=== PATIENT | female | born 1940 | race Caucasian/White ===

== ENCOUNTER 2017-10-04 17:30 | Inpatient (IN) | payer MEDICARE, OTHER ==
[2017-10-04 17:31] VITALS: BMI 26.1
[2017-10-04 18:35] LABS: BASO # 0.1 K/uL (0.0-0.2); BASO % 0.8 % (0.0-2.0); EOS # 0.1 K/uL (0.0-0.7); EOS % 0.7 % (0.0-4.0); HEMOGLOBIN 14.4 g/dL (11.0-16.0); LYMPH # 1.7 K/uL (1.0-4.3); LYMPH % 16.7 % (20.0-40.0); MEAN CORPUSCULAR HEMOGLOBIN 28.6 pg (27.0-31.0); MEAN CORPUSCULAR HGB CONC 32.9 g/dL (33.0-37.0); MEAN PLATELET VOLUME 9.6 fL (7.2-11.7); MONO % 9.9 % (0.0-10.0); NEUT # 7.5 K/uL (1.8-7.0); NEUT % 71.9 % (50.0-75.0); RBC 5.02 Mil/uL (3.80-5.20); RED CELL DISTRIBUTION WIDTH 14.5 % (11.5-14.5); WHITE BLOOD COUNT 10.4 K/uL (4.8-10.8)
[2017-10-04 18:37] LABS: MEAN CELL VOLUME 86.9 fL (81.0-99.0)
[2017-10-04 18:44] LABS: CALCIUM 9.8 mg/dl (8.6-10.4); GFR AFRICAN-AMERICAN > 60; GFR NON-AFRICAN AMERICAN 54; INR 1.1; PROTHROMBIN TIME 12.2 SECONDS (9.7-12.2)
[2017-10-04 18:52] LABS: ALB/GLOB RATIO 0.9 (1.0-2.1); ALBUMIN 4.8 g/dL (3.5-5.0); ALT/SGPT 21 U/L (9-52); AST/SGOT 53 U/L (14-36); BLOOD UREA NITROGEN 19 mg/dL (7-17)
--- NOTE | 2017-10-04 18:54 | C.PDOC ---
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 Patient today is c/o sharp like chest pain mainly located in the center of her chest along with some dizziness, patient states she was near syncopal and started noticing some tremors which made her call EMS. Patient received aspirin and nitroglycerin in the field which improved the symptoms greatly. Patient at this time states having no complaints or symptoms. Time Seen by Provider: 10/04/17 17:46 Chief Complaint (Nursing): Chest Pain History Per: Patient, EMS History/Exam Limitations: no limitations Onset/Duration Of Symptoms: Hrs Current Symptoms Are (Timing): Still Present Severity: Mild Quality: Sharp Nitro Therapy Administered: 2, Per EMS, Complete Relief Recent travel outside of the [place]: No Additional History Per: Patient, EMS Past Medical History Reviewed: Historical Data, Nursing Documentation, Vital Signs Vital Signs: Last Vital Signs Temp 98.4 F 10/04/17 19:43 Pulse 86 10/04/17 19:43 Resp 16 10/04/17 19:43 BP 175/74 H 10/04/17 19:43 Pulse Ox 98 10/04/17 19:45 - Medical History PMH: Anxiety, Arthritis (KNEE PAIN), Cardia Arrhythmia, Depression, Diabetes, HTN, Hypercholesterolemia, Hypothyroidism Denies: Chronic Kidney Disease Surgical History: CABG (jan 17 2013 TRIPLE), Coronary Stent, Pacemaker, Tonsillectomy - [facility] Procedures BREAST DX PROCEDURE NEC (04/18/14) DX ULTRASOUND-THORAX NEC (04/18/14) INITIAL INSERT TRANS LEADS INTO [employer] VENTRICLE (12/20/13) INITIAL INSERTION OF DUAL-CHAMBER DEVICE (12/20/13) LOCAL EXCIS BREAST LES (04/18/14) LYMPHATIC STRUCT BIOPSY (05/14/14) LYMPHATIC SYSTEM SCAN (05/14/14) PERCUTAN NEEDLE BIOPSY OF BREAST (02/05/14) X-RAY NEC AND NOS (02/05/14) Family History: States: Unknown Family Hx - Social History Hx Tobacco Use: Yes (quit 6 years ago) Hx Alcohol Use: No Hx Substance Use: No - Immunization History Hx Tetanus Toxoid Vaccination: No Hx Influenza Vaccination: No Hx Pneumococcal Vaccination: No Review Of Systems Constitutional: Negative for: Fever, Chills Cardiovascular: Positive for: Chest Pain. Negative for: Palpitations Respiratory: Negative for: Cough, Shortness of Breath Gastrointestinal: Negative for: Nausea, Vomiting, Abdominal Pain Genitourinary: Negative for: Dysuria, Hematuria Musculoskeletal: Negative for: Back Pain Skin: Negative for: Rash Neurological: Negative for: Weakness, Numbness Physical Exam - Physical Exam Appears: Non-toxic, No Acute Distress Skin: Normal Color, Warm, Dry Head: Atraumatic, Normacephalic Eye(s): bilateral: Normal Inspection Nose: No Discharge, No Epistaxis Oral Mucosa: Moist Neck: Normal ROM, Supple Chest: Symmetrical Cardiovascular: Rhythm Regular, No Murmur Respiratory: Normal Breath Sounds, No Rales, No Rhonchi, No Wheezing Gastrointestinal/Abdominal: Soft, No Tenderness, No Guarding, No Rebound Extremity: Normal ROM, No Pedal Edema, No Calf Tenderness, No Deformity, No Swelling Neurological/Psych: Oriented x3, Normal Speech, Normal Cognition Gait: Steady ED Course And Treatment - Laboratory Results Result Diagrams: 10/04/17 18:30 10/04/17 18:30 ECG: Interpreted By Me, Viewed By Me ECG Rhythm: Sinus Rhythm, L BBB (pattern) Interpretation Of ECG: LBBB pattern, (pt had a pacemaker in place but no pacer spikes can be seen currently in the EKG) Rate From EC O2 Sat by Pulse Oximetry: 98 (On RA) Pulse Ox Interpretation: Normal Medical Decision Making Medical Decision Making: Impression : Chest pain Plan: * EKG * Labs * CXR Spoke with Hospitalist Dr. Balderas and patient will be admitted under his service to telemetry Disposition Discussed With DrJuvencio: Trent Balderas Counseled Patient/Family Regarding: Studies Performed, Diagnosis - Disposition Disposition Time: 19:44 Condition: FAIR Forms: [employer] (Uzbek) - POA Core Measure Indicators: Chest Pain - Clinical Impression Clinical Impression: Chest discomfort - Scribe Statement The provider has reviewed the documentation as recorded by the Scribe Vance Richmond All medical record entries made by the Scribe were at my direction and personally dictated by me. I have reviewed the chart and agree that the record accurately reflects my personal performance of the history, physical exam, medical decision making, and the department course for this patient. I have also personally directed, reviewed, and agree with the discharge instructions and disposition.
[2017-10-04 18:56] LABS: B-TYPE NATRIURETIC PEPTIDE 1580 pg/mL (0-900)
--- NOTE | 2017-10-04 19:45 | CP.PCM.HP ---
<Linda Tejada - Last Filed: 10/04/17 21:51> History of Present Illness - History of Present Illness History of Present Illness: Medicine Note for Hospitalist Service CC: Chest Pain HPI: 77 yo Female with PMHx of HTN, HLD, DM, CAD, CABG, Hx of Breast Cancer (s/p lumpectomy), and Hypothyroidism presents to the ED for chest pain. She reports she started to have chest pain at 3pm today while she was sitting down in her kitchen. The pain was sharp, constant in the middle of her chest. She felt SOB, cold, and dizzy. Her chest pain was relieved when she was given nitro in the ambulance. Upon examining the patient she admitted to headache, epigastric burning pain that radiates to her back, nausea, and vomiting. Denied fever, chills, SOB, d/c, or urinary symptoms. PMHx: HTN, HLD, DM, CAD, CABG, Hx of Breast Cancer (s/p lumpectomy) and Hypothyroidism PSHx: Pacemaker (placed on the right due to Hx Breast Cancer) Meds: As per NOV, reviewed and confirmed All: NKDA SHx: Denied x 3 FHx: Strong Cardiac history, most family member of cardiac complications PMD: Tony Insurance Claim Representative: Dr. Daryl Musa [phone] Present on Admission - Present on Admission Any Indicators Present on Admission: No Past Patient History - Past Medical History & Family History Past Medical History?: Yes - Past Social History Smoking Status: Former Smoker - CARDIAC Hx Cardia Arrhythmia: Yes Hx Hypercholesterolemia: Yes Hx Hypertension: Yes Hx Pacemaker: Yes - PULMONARY Hx Respiratory Disorders: Yes (SOB SOMETIMES) - NEUROLOGICAL Hx Neurological Disorder: Yes - HEENT Hx HEENT Problems: Yes Hx Cataracts: Yes (removed bilateral 2011) - RENAL Hx Chronic Kidney Disease: No - ENDOCRINE/METABOLIC Hx Hypothyroidism: Yes - HEMATOLOGICAL/ONCOLOGICAL Hx Blood Disorders: Yes Hx Cancer: Yes (LEFT BREAST-RADIATION TX. DONE) - INTEGUMENTARY Hx Dermatological Problems: Yes Other/Comment: CANCER LEFT BREAST-LUMPECTOMY DONE - MUSCULOSKELETAL/RHEUMATOLOGICAL Hx Arthritis: Yes (KNEE PAIN) - GASTROINTESTINAL Hx Gastrointestinal Disorders: No - GENITOURINARY/GYNECOLOGICAL Hx Genitourinary Disorders: No - PSYCHIATRIC Hx Anxiety: Yes Hx Depression: Yes Hx Substance Use: No - SURGICAL HISTORY Hx Coronary Artery Bypass Graft: Yes (jan 17 2013 TRIPLE) Hx Coronary Stent: Yes Hx Tonsillectomy: Yes - ANESTHESIA Hx Anesthesia: Yes Hx Anesthesia Reactions: No Hx Malignant Hyperthermia: No Meds Allergies/Adverse Reactions: Allergies Allergy/AdvReac Type Severity Reaction Status Date / Time No Known Allergies Allergy Verified 10/04/17 17:45 Physical Exam - Constitutional Appears: Toxic - Head Exam Head Exam: NORMAL INSPECTION, NORMOCEPHALIC - Eye Exam Eye Exam: EOMI, Normal appearance, PERRL Pupil Exam: NORMAL ACCOMODATION - ENT Exam ENT Exam: Mucous Membranes Moist - Neck Exam Neck exam: Positive for: Normal Inspection - Respiratory Exam Respiratory Exam: Clear to Auscultation Bilateral, NORMAL BREATHING PATTERN. absent: Decreased Breath Sounds, Wheezes - Cardiovascular Exam Cardiovascular Exam: REGULAR RHYTHM, RRR, +S1, +S2 - GI/Abdominal Exam GI & Abdominal Exam: Normal Bowel Sounds, Soft, Tenderness (TTP epigastric region ) - Extremities Exam Extremities exam: Positive for: normal inspection, pedal pulses present. Negative for: pedal edema, tenderness - Back Exam Back exam: NORMAL INSPECTION. absent: CVA tenderness (L), CVA tenderness (R) - Neurological Exam Neurological exam: Alert, CN II-XII Intact, Oriented x3 - Psychiatric Exam Psychiatric exam: Normal Affect, Normal Mood - Skin Skin Exam: Dry, Intact, Normal Color, Warm Results - Vital Signs Recent Vital Signs: Last Vital Signs Temp 98.4 F 10/04/17 19:43 Pulse 86 10/04/17 19:43 Resp 16 10/04/17 19:43 BP 175/74 H 10/04/17 19:43 Pulse Ox 98 10/04/17 19:45 - Labs Result Diagrams: 10/04/17 18:30 10/04/17 18:30 Labs: Laboratory Results - last 24 hr 10/04/17 10/04/17 10/04/17 17:46 18:30 18:30 WBC 10.4 D RBC 5.02 Hgb 14.4 D Hct 43.6 MCV 86.9 D MCH 28.6 MCHC 32.9 L RDW 14.5 Plt Count 307 MPV 9.6 Neut % (Auto) 71.9 Lymph % (Auto) 16.7 L Gilliam % (Auto) 9.9 Eos % (Auto) 0.7 Baso % (Auto) 0.8 Neut # 7.5 H Lymph # 1.7 Gilliam # 1.0 H Eos # 0.1 Baso # 0.1 PT INR APTT Sodium 137 Potassium 5.6 H Chloride 98 Carbon Dioxide 26 Anion Gap 19 BUN 19 H Creatinine 1.0 Est GFR ( Amer) > 60 Est GFR (Non-Af Amer) 54 POC Glucose (mg/dL) 184 H Random Glucose 183 H Calcium 9.8 Total Bilirubin 1.4 H AST 53 H ALT 21 Alkaline Phosphatase 148 H Troponin I 0.0230 NT-Pro-B Natriuret Pep 1580 H Total Protein 10.0 H Albumin 4.8 Globulin 5.2 H Albumin/Globulin Ratio 0.9 L 10/04/17 18:30 WBC RBC Hgb Hct MCV MCH MCHC RDW Plt Count MPV Neut % (Auto) Lymph % (Auto) Gilliam % (Auto) Eos % (Auto) Baso % (Auto) Neut # Lymph # Gilliam # Eos # Baso # PT 12.2 INR 1.1 APTT 29 Sodium Potassium Chloride Carbon Dioxide Anion Gap BUN Creatinine Est GFR ( Amer) Est GFR (Non-Af Amer) POC Glucose (mg/dL) Random Glucose Calcium Total Bilirubin AST ALT Alkaline Phosphatase Troponin I NT-Pro-B Natriuret Pep Total Protein Albumin Globulin Albumin/Globulin Ratio Assessment & Plan - Assessment and Plan (Free Text) Assessment: 77 yo Female with PMHx of HTN, HLD, DM, CAD, CABG, Hx of Breast Cancer (s/p lumpectomy), and Hypothyroidism presents to the ED for chest pain. Plan: Chest Pain r/o ACS Call placed to Primary Insurance Claim Representative- he is being covered by Dr. Childs- consult placed EK, LBBB, f/u EKG x2 JOANNA: 1st negative, f/u JOANNA x2 TSH, T4 - WNL F/U lipid panel CT Chest w/ IV ordered to rule out aortic dissection as patient reported the pain radiated to her back ECHO pending; Last ECHO 2015 LVEF 63% ASA 81mg PO daily CAD s/p CABG (2014) Had an abnormal stress test 09/2016 Hyperkalemia 5.6 on admission Once dose Kayexalate given Elevated T. Bili 1.4 Continue to Monitor Transaminitis Continue to Monitor HTN Resumed home medications: Norvasc 5mg PO daily, Cozaar 100mg PO daily HLD Continue with home medication (lipitor not on formulary): Crestor 5mg PO QHS DM Accuchecks HGA1C: 7.1 (09/2017) Carb Consistent Diet Held home medication: Metformin ISS- mod Hypothyroidism Continue with home medication: Synthroid 50mcg PO daily Hx Breast Cancer Prophylactic Measures GI PPX: Protonix 40mg PO daily DVT PPX: SCDs, Heparin Q12 DW Linda Arora DO, PGY-1 <Trent Balderas - Last Filed: 10/05/17 06:19> Results - Vital Signs Recent Vital Signs: Last Vital Signs Temp 98.0 F 10/05/17 00:30 Pulse 85 10/05/17 04:00 Resp 20 10/05/17 00:30 BP 184/75 H 10/05/17 00:30 Pulse Ox 95 10/05/17 00:30 - Labs Result Diagrams: 10/05/17 05:55 10/04/17 18:30 Labs: Laboratory Results - last 24 hr 10/04/17 10/04/17 10/04/17 17:46 18:30 18:30 WBC 10.4 D RBC 5.02 Hgb 14.4 D Hct 43.6 MCV 86.9 D MCH 28.6 MCHC 32.9 L RDW 14.5 Plt Count 307 MPV 9.6 Neut % (Auto) 71.9 Lymph % (Auto) 16.7 L Gilliam % (Auto) 9.9 Eos % (Auto) 0.7 Baso % (Auto) 0.8 Neut # 7.5 H Lymph # 1.7 Gilliam # 1.0 H Eos # 0.1 Baso # 0.1 PT INR APTT Sodium 137 Potassium 5.6 H Chloride 98 Carbon Dioxide 26 Anion Gap 19 BUN 19 H Creatinine 1.0 Est GFR ( Amer) > 60 Est GFR (Non-Af Amer) 54 POC Glucose (mg/dL) 184 H Random Glucose 183 H Hemoglobin A1c Calcium 9.8 Total Bilirubin 1.4 H AST 53 H ALT 21 Alkaline Phosphatase 148 H Total Creatine Kinase Troponin I 0.0230 NT-Pro-B Natriuret Pep 1580 H Total Protein 10.0 H Albumin 4.8 Globulin 5.2 H Albumin/Globulin Ratio 0.9 L Free T4 TSH 3rd Generation 10/04/17 10/04/17 10/04/17 18:30 20:20 20:20 WBC RBC Hgb Hct MCV MCH MCHC RDW Plt Count MPV Neut % (Auto) Lymph % (Auto) Gilliam % (Auto) Eos % (Auto) Baso % (Auto) Neut # Lymph # Gilliam # Eos # Baso # PT 12.2 INR 1.1 APTT 29 Sodium Potassium Chloride Carbon Dioxide Anion Gap BUN Creatinine Est GFR ( Amer) Est GFR (Non-Af Amer) POC Glucose (mg/dL) Random Glucose Hemoglobin A1c 7.1 H Calcium Total Bilirubin AST ALT Alkaline Phosphatase Total Creatine Kinase Troponin I NT-Pro-B Natriuret Pep Total Protein Albumin Globulin Albumin/Globulin Ratio Free T4 TSH 3rd Generation 2.92 10/04/17 10/04/17 10/05/17 20:28 20:51 05:55 WBC 14.6 H RBC 4.92 Hgb 14.2 Hct 42.2 MCV 85.7 MCH 28.9 MCHC 33.8 RDW 14.2 Plt Count 249 MPV 9.0 Neut % (Auto) 75.7 H Lymph % (Auto) 10.5 L Gilliam % (Auto) 13.2 H Eos % (Auto) 0.0 Baso % (Auto) 0.6 Neut # 11.1 H Lymph # 1.5 Gilliam # 1.9 H Eos # 0.0 Baso # 0.1 PT INR APTT Sodium Potassium Chloride Carbon Dioxide Anion Gap BUN Creatinine Est GFR ( Amer) Est GFR (Non-Af Amer) POC Glucose (mg/dL) 175 H Random Glucose Hemoglobin A1c Calcium Total Bilirubin AST ALT Alkaline Phosphatase Total Creatine Kinase Troponin I NT-Pro-B Natriuret Pep Total Protein Albumin Globulin Albumin/Globulin Ratio Free T4 1.49 TSH 3rd Generation 10/05/17 05:55 WBC RBC Hgb Hct MCV MCH MCHC RDW Plt Count MPV Neut % (Auto) Lymph % (Auto) Gilliam % (Auto) Eos % (Auto) Baso % (Auto) Neut # Lymph # Gilliam # Eos # Baso # PT INR APTT Sodium Potassium Chloride Carbon Dioxide Anion Gap BUN Creatinine Est GFR ( Amer) Est GFR (Non-Af Amer) POC Glucose (mg/dL) Random Glucose Hemoglobin A1c Calcium Total Bilirubin AST ALT Alkaline Phosphatase Total Creatine Kinase 141 H Troponin I NT-Pro-B Natriuret Pep Total Protein Albumin Globulin Albumin/Globulin Ratio Free T4 TSH 3rd Generation Assessment & Plan - Date & Time Date: 10/05/17 (I have seen and examined the patient. I agree with the findings and plan of care as documented by Dr. Tejada. Patient with chest pain and history of prior CABG. ROMIx3 with EKG. Aspirin and Statin. Consult to Cardio. Continue home meds for history of hypertension. Also complaining of some abdominal pain radiating to back. Check CT to rule out dissection. Monitor for acute changes.) Time: 06:17 Attending/Attestation - Attestation I have personally seen and examined this patient.: Yes I have fully participated in the care of the patient.: Yes I have reviewed all pertinent clinical information: Yes
[2017-10-04] MEDS ORDERED: Simethicone 80 mg Chewtab PO STA (20:42)
[2017-10-04] MEDS ORDERED: Iohexol 300 100 ML IJ ONE (21:23)
[2017-10-04] MEDS ORDERED: Sod Polystyrene Sulf 15 gm/60 ml Susp PO ONE (21:41)
[2017-10-04] MEDS: (Novolin R) Insulin Human Regular 100 units/ml vial SC SCH (22:13)
[2017-10-04] MEDS ORDERED: Sod Polystyrene Sulf 15 gm/60 ml Susp ONE (22:22)
--- NOTE | 2017-10-04 23:51 | CT ---
EXAM: CT Chest Without and With Intravenous Contrast CT Abdomen and Pelvis Without and With Intravenous Contrast CLINICAL HISTORY: 77 years old, female; Pain; Abdominal pain; Chest pain; Type not specified; Additional info: Rule out aortic dissection TECHNIQUE: Axial computed tomography images of the chest, abdomen and pelvis without and with intravenous contrast. All CT scans at this facility use one or more dose reduction techniques, viz.: automated exposure control; ma/kV adjustment per patient size (including targeted exams where dose is matched to indication; i.e. head); or iterative reconstruction technique. Coronal and sagittal reformatted images were created and reviewed. CONTRAST: 100 mL of OMNIPAQUE 300 administered intravenously. COMPARISON: No relevant prior studies available. FINDINGS: CHEST: Lungs: Calcified pulmonary granulomas. Subsegmental atelectasis left upper lobe. Pleural space: Unremarkable. No significant effusion. No pneumothorax. Heart: Mild cardiomegaly. No significant pericardial effusion. Mediastinum: Small hiatal hernia. ABDOMEN: Liver: Multiple hepatic cysts. Largest cyst comprises much of the right hepatic lobe it measures 16 CM. Gallbladder and bile ducts: Unremarkable. No calcified stones. No ductal dilation. Pancreas: Unremarkable. No ductal dilation. No mass. Spleen: Unremarkable. No splenomegaly. Adrenals: Unremarkable. No mass. Kidneys and ureters: Unremarkable. No obstructing stones. No hydronephrosis. No solid mass. Stomach and bowel: Unremarkable. No obstruction. Appendix: No findings to suggest acute appendicitis. PELVIS: Bladder: Unremarkable. No stones. No mass. Reproductive: Unremarkable as visualized. CHEST, ABDOMEN and PELVIS: Intraperitoneal space: Unremarkable. No significant fluid collection. No free air. Bones/joints: Median sternotomy wires. No acute fracture. No dislocation. Soft tissues: Unremarkable. Vasculature: No pulmonary embolism. 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 Lymph nodes: Unremarkable. No enlarged lymph nodes. Tubes, lines and devices: Right chest wall pacer/defibrillator. IMPRESSION: 1. No evidence of thoracic aortic aneurysm, dissection, or rupture. 2. No acute pulmonary embolism. 3. Hepatic cysts. 4. Remainder of findings as above.
--- NOTE | 2017-10-05 00:25 | CP.PCM.CON ---
History of Present Illness - History of Present Illness History of Present Illness: Cardiology consult note for Dr. Amadeo Jon DO, PGY - 1 - Pager [phone] Reason For Consult: Chest Pain HPI: 77 yo Female with PMHx of Hypertension, Hyperlipidemia, Diabetes, CAD s /p CABG, Breast Cancer s/p Lumpectomy, and Hypothyroidism presented to the ED last night for 5 hour duration of sharp, constant, non-radiating, sternal chest pain, which began at rest, was associated with shortness of breath and dizziness , and remitted with nitro given by EMS. Patient states that this bout does feel like past episodes of chest pain. Patient has never had an AMI in the past. Last ECHO on file is 04/03, which showed borderline concentric LVH with grade I abnormal relaxation pattern, severe aortic stenosis, mild mitral regurg, and mild to moderate pulmonic regurg. LVEF was 60-65%. Patient had a cardiac cath performed 07/[address] Evangelista, which showed distal main coronary artery 70-80% concentric stenosis mid LAD 70-80% stenosis, RCA 20- 30% non-obstructing stenosis, and large diagonal branch 85% proximal stenosis with LVEF of 60%. Basal inferior wall akinetic. Proximal and distal LAD, Left circumflex, PDA. SUMMERS to LAD (jump graft), and saphenous vein graft to diagonal branch and obtuse marginal artery were all patent. Per admitting physician, patient admitted to headache, epigastric burning pain that radiated to her back, nausea, and vomiting. When I saw patient at bedside , she admitted to this same pain, and states that it is separate from the chest pain. She states that she feels constipated, and that this happens to her often. Past Surgical History: Lumpectomy, CABG 2012 Past Medical History: Hypertension, Hyperlipidemia, Diabetes, CAD s/p CABG s/ p Cath as above, Breast Cancer s/p Lumpectomy, Hypothyroidism Allergies: NKDA Social History: Denies illicits, alcohol, and tobacco use Family History: Strong cardiac history - all women in her family of AMI's Medications: See NOV PMD: Dr. Jimenez Agricultural Economics Teacher: Dr. Daryl Musa [phone] [facility] Pharmacy: [address] [phone] Review of Systems: Constitutional: patient denies fever, chills, generalized weakness ENT: patient denies dysphagia, otalgia, hearing deficit, rhinorrhea Eyes: patient denies sudden loss of vision, diplopia, blurred vision MSK: patient denies muscle stiffness, joint pain, extremity cramping Cardio: See HPI Pulm: patient denies cough, hemoptysis, wheeze Gastrointestinal: See HPI Genitourinary: patient denies burning on urination, urinary frequency, hematuria, urinary urgency Neuro: patient denies paresis, paresthesia, dizziness, headache, numbness , tingling Derm: patient denies skin changes, lesions, nail changes Endo: patient denies intolerance to heat/cold, diaphoresis, night sweats, polydipsia Psych: patient denies anxiety, depression, mood changes Past Patient History - Past Medical History & Family History Past Medical History?: Yes - Past Social History Smoking Status: Former Smoker - CARDIAC Hx Cardia Arrhythmia: Yes Hx Hypercholesterolemia: Yes Hx Hypertension: Yes Hx Pacemaker: Yes - PULMONARY Hx Respiratory Disorders: Yes (SOB SOMETIMES) - NEUROLOGICAL Hx Neurological Disorder: Yes - HEENT Hx HEENT Problems: Yes Hx Cataracts: Yes (removed bilateral 2011) - RENAL Hx Chronic Kidney Disease: No - ENDOCRINE/METABOLIC Hx Hypothyroidism: Yes - HEMATOLOGICAL/ONCOLOGICAL Hx Blood Disorders: Yes Hx Cancer: Yes (LEFT BREAST-RADIATION TX. DONE) - INTEGUMENTARY Hx Dermatological Problems: Yes Other/Comment: CANCER LEFT BREAST-LUMPECTOMY DONE - MUSCULOSKELETAL/RHEUMATOLOGICAL Hx Arthritis: Yes (KNEE PAIN) - GASTROINTESTINAL Hx Gastrointestinal Disorders: No - GENITOURINARY/GYNECOLOGICAL Hx Genitourinary Disorders: No - PSYCHIATRIC Hx Anxiety: Yes Hx Depression: Yes Hx Substance Use: No - SURGICAL HISTORY Hx Coronary Artery Bypass Graft: Yes (jan 17 2013 TRIPLE) Hx Coronary Stent: Yes Hx Tonsillectomy: Yes - ANESTHESIA Hx Anesthesia: Yes Hx Anesthesia Reactions: No Hx Malignant Hyperthermia: No Meds Allergies/Adverse Reactions: Allergies Allergy/AdvReac Type Severity Reaction Status Date / Time No Known Allergies Allergy Verified 10/04/17 17:45 - Medications Medications: Current Medications Amlodipine Besylate (Norvasc) 5 mg PO DAILY [facility] Aspirin (Ecotrin) 81 mg PO DAILY [facility] Heparin Sodium (Porcine) (Heparin) 5,000 units SC Q12 [facility] Last Admin: 10/04/17 22:18 Dose: 5,000 units Insulin Human Regular (Novolin R) 0 unit SC ACHS TIM PRN Reason: Protocol Last Admin: 10/04/17 22:13 Dose: Not Given Levothyroxine Sodium (Synthroid) 50 mcg PO DAILY@0630 TIM Losartan Potassium (Cozaar) 100 mg PO DAILY [facility] Ondansetron HCl (Zofran Inj) 4 mg IVP Q6H PRN PRN Reason: Nausea/Vomiting Pantoprazole Sodium (Protonix Ec Tab) 40 mg PO DAILY TIM Rosuvastatin Calcium (Crestor) 5 mg PO HS TIM Last Admin: 10/04/17 22:18 Dose: 5 mg Zolpidem Tartrate (Ambien) 5 mg PO HS PRN PRN Reason: Insomnia Last Admin: 10/04/17 23:27 Dose: 5 mg Physical Exam - Additional Findings Additional findings: Physical Exam: Vital Signs as below Const'l: awake alert & oriented x 4, no acute distress, pleasant, obese woman Head/Neck: neck supple, no jvd, trachea midline, carotid midline, no cervical/head mass Eyes: pupils equally reactive to light and accommodation, nonicteric sclera, extraocular intact ENT: auditory acuity grossly intact, throat not congested, no nasal deformity Cardio: +scar on chest wall on left and right sides, regular rate, regular rhythm, no murmurs rubs gallops, no carotid bruit, normal s1, s2 Pulm: no accessory muscle use, equal normal breath sounds bilaterally, clear to ausculation bilaterally Abd: +obesity limiting exam, +slightly diminished bowel sounds in lower quadrants; soft non tender non-distended, no palpable masses Derm: no rashes, no ulcers, no lesions Extr: no edema, no cyanosis, no calf tenderness, no lesions, no varicosities Neuro: cranial nerves II-XII grossly intact, upper extremity and lower extremity 5/5 muscle strength bilaterally, no loss of sensation in upper extremities, lower extremities bilaterally and core Results - Vital Signs Recent Vital Signs: Last Vital Signs Temp 98 F 10/04/17 23:08 Pulse 82 10/04/17 23:08 Resp 16 10/04/17 23:08 BP 158/59 H 10/04/17 23:08 Pulse Ox 100 10/04/17 23:08 - Labs Result Diagrams: 10/05/17 05:55 10/05/17 05:55 Labs: Laboratory Results - last 24 hr 10/04/17 10/04/17 10/04/17 17:46 18:30 18:30 WBC 10.4 D RBC 5.02 Hgb 14.4 D Hct 43.6 MCV 86.9 D MCH 28.6 MCHC 32.9 L RDW 14.5 Plt Count 307 MPV 9.6 Neut % (Auto) 71.9 Lymph % (Auto) 16.7 L Kent % (Auto) 9.9 Eos % (Auto) 0.7 Baso % (Auto) 0.8 Neut # 7.5 H Lymph # 1.7 Kent # 1.0 H Eos # 0.1 Baso # 0.1 PT INR APTT Sodium 137 Potassium 5.6 H Chloride 98 Carbon Dioxide 26 Anion Gap 19 BUN 19 H Creatinine 1.0 Est GFR ( Amer) > 60 Est GFR (Non-Af Amer) 54 POC Glucose (mg/dL) 184 H Random Glucose 183 H Hemoglobin A1c Calcium 9.8 Total Bilirubin 1.4 H AST 53 H ALT 21 Alkaline Phosphatase 148 H Troponin I 0.0230 NT-Pro-B Natriuret Pep 1580 H Total Protein 10.0 H Albumin 4.8 Globulin 5.2 H Albumin/Globulin Ratio 0.9 L Free T4 TSH 3rd Generation 10/04/17 10/04/17 10/04/17 18:30 20:20 20:20 WBC RBC Hgb Hct MCV MCH MCHC RDW Plt Count MPV Neut % (Auto) Lymph % (Auto) Kent % (Auto) Eos % (Auto) Baso % (Auto) Neut # Lymph # Kent # Eos # Baso # PT 12.2 INR 1.1 APTT 29 Sodium Potassium Chloride Carbon Dioxide Anion Gap BUN Creatinine Est GFR ( Amer) Est GFR (Non-Af Amer) POC Glucose (mg/dL) Random Glucose Hemoglobin A1c 7.1 H Calcium Total Bilirubin AST ALT Alkaline Phosphatase Troponin I NT-Pro-B Natriuret Pep Total Protein Albumin Globulin Albumin/Globulin Ratio Free T4 TSH 3rd Generation 2.92 10/04/17 10/04/17 20:28 20:51 WBC RBC Hgb Hct MCV MCH MCHC RDW Plt Count MPV Neut % (Auto) Lymph % (Auto) Kent % (Auto) Eos % (Auto) Baso % (Auto) Neut # Lymph # Kent # Eos # Baso # PT INR APTT Sodium Potassium Chloride Carbon Dioxide Anion Gap BUN Creatinine Est GFR ( Amer) Est GFR (Non-Af Amer) POC Glucose (mg/dL) 175 H Random Glucose Hemoglobin A1c Calcium Total Bilirubin AST ALT Alkaline Phosphatase Troponin I NT-Pro-B Natriuret Pep Total Protein Albumin Globulin Albumin/Globulin Ratio Free T4 1.49 TSH 3rd Generation Assessment & Plan - Assessment and Plan (Free Text) Assessment: Assessment and Plan: 77 year old female with extensive cardiac history presents with 4 hour duration of chest pain. First troponin at .0230. EKG shows new LBBB with NSR at 90 bpm Holter in 2017 showed NSR with max HR 121, SVT at HR of 146 and rare VPC, isolated APC. Cardiac Cath in 2014 showed distal main coronary artery 70-80% concentric stenosis mid LAD 70-80% stenosis, RCA 20-30% non-obstructing stenosis , and large diagonal branch 85% proximal stenosis. with LVEF of 60%. Basal inferior wall akinetic. Previous ECHO showed borderline concentric LVH with grade I abnormal relaxation pattern, severe aortic stenosis, mild mitral regurg , and mild to moderate pulmonic regurg. LVEF was 60-65%. History of pacemaker placement per chart review. Chest Pain r/o ACS - EK, and LBBB not found on previous EKG's in system - Troponin X 1 at .0230, X2 at .0220; baseline is <.0120; CK-MB 1.87-1.85 - BNP elevated at 1580, past BNP's 799-955, with one at 1930 in 2012. - TSH, T4, Lipids - wnl - Mg/Phos:1.3/3.4 - CT Chest with IV: No aneurysm, no dissection, no PE - Follow up Troponins, EKGs - ECHO ordered, Nitro given, ASA 81 daily, Cozaar daily, Norvasc daily, Crestor daily New Left Bundle Branch Block - Patient already has a pacemaker placed (LBBB could be 2/2 to pacing) - Serial JOANNA panel, Serial EKGs, as above - Patient should undergo a repeat catheterization *NPO AFTER MIDNIGHT CAD s/p CABG (2012) - Crestor, Cozaar, ASA daily HTN - Norvasc 5mg PO daily, Cozaar 100mg PO daily HLD - Crestor 5mg PO QHS (patient's home medication is lipitor) DM - HGA1C: 7.1 (09/2017), Held home medication: Metformin - Carb Consistent Diet, Accuchecks, RISS - Mod Hyperkalemia - Per primary team Elevated T. Bili - Per primary team Transaminitis - Per primary team Hypothyroidism - Per primary team Hx Breast Cancer - Per primary team Prophylactic Measures - GI PPX: Protonix 40mg PO daily - DVT PPX: SCDs, Heparin Q12 Dispo: Patient needs catheterization, is scheduled for 10 AM tomorrow. NPO after midnight
[2017-10-05] MEDS: Levothyroxine 50 MCG TAB PO SCH (05:50)
[2017-10-05 05:59] LABS: BASO # 0.1 K/uL (0.0-0.2); BASO % 0.6 % (0.0-2.0); HEMOGLOBIN 14.2 g/dL (11.0-16.0); LYMPH # 1.5 K/uL (1.0-4.3); LYMPH % 10.5 % (20.0-40.0); MEAN CELL VOLUME 85.7 fL (81.0-99.0); MEAN CORPUSCULAR HEMOGLOBIN 28.9 pg (27.0-31.0); MEAN CORPUSCULAR HGB CONC 33.8 g/dL (33.0-37.0); MONO # 1.9 K/uL (0.0-0.8); MONO % 13.2 % (0.0-10.0); NEUT # 11.1 K/uL (1.8-7.0); NEUT % 75.7 % (50.0-75.0); RBC 4.92 Mil/uL (3.80-5.20); RED CELL DISTRIBUTION WIDTH 14.2 % (11.5-14.5); WHITE BLOOD COUNT 14.6 K/uL (4.8-10.8)
[2017-10-05 06:22] LABS: CK-MB 1.87 ng/mL (0.0-3.38); LDL CHOLESTEROL 91 mg/dL (0-129); TROPONIN I 0.022 ng/mL (0.00-0.120)
[2017-10-05 06:25] LABS: ALB/GLOB RATIO 1.1 (1.0-2.1); ALBUMIN 4.2 g/dL (3.5-5.0); ALT/SGPT 29 U/L (9-52); AST/SGOT 29 U/L (14-36); BLOOD UREA NITROGEN 18 mg/dL (7-17); CALCIUM 9.3 mg/dl (8.6-10.4); GFR AFRICAN-AMERICAN > 60; GFR NON-AFRICAN AMERICAN > 60; HDL CHOLESTEROL 41 mg/dL (30-70); MAGNESIUM 1.3 mg/dL (1.6-2.3)
[2017-10-05] MEDS: Magnesium Sulfate 1 gm in D5W 1 GM/100 ML BAG IVPB SCH ×2 (06:49→08:05)
--- NOTE | 2017-10-05 07:52 | CP.PCM.PN ---
<Linda Rutledge MarkJuvencio - Last Filed: 10/05/17 18:35> Subjective - Date & Time of Evaluation Date of Evaluation: 10/05/17 Time of Evaluation: 07:00 - Subjective Subjective: Medicine Progress Note: Patient was seen and examined at bedside in the AM. Patient states she does not have chest pain any more. Patient states she has abdominal pain that is currently about a 4/10. She states it has improved after she had a bowel movement this morning. Patient at that time denies difficulty breathing, chest pain, nausea, vomiting, or fever. Patient later seen in the afternoon after her return of ECHO as she stated she had extreme abdominal pain. Patient stated she would not have any more blood drawn for more tests. Patient denied any more tests and denied IV fluids. Objective - Vital Signs/Intake and Output Vital Signs (last 24 hours): Temp Pulse Resp BP Pulse Ox 98.0 F 85 20 184/75 H 95 10/05/17 00:30 10/05/17 04:00 10/05/17 00:30 10/05/17 00:30 10/05/17 00:30 Intake and Output: 10/05/17 10/05/17 06:59 18:59 Intake Total 250 Balance 250 - Medications Medications: Current Medications Amlodipine Besylate (Norvasc) 5 mg PO DAILY [facility] Aspirin (Ecotrin) 81 mg PO DAILY [facility] Heparin Sodium (Porcine) (Heparin) 5,000 units SC Q12 [facility] Last Admin: 10/04/17 22:18 Dose: 5,000 units Insulin Human Regular (Novolin R) 0 unit SC ACHS [facility] PRN Reason: Protocol Last Admin: 10/04/17 22:13 Dose: Not Given Levothyroxine Sodium (Synthroid) 50 mcg PO DAILY@0630 [facility] Last Admin: 10/05/17 05:50 Dose: 50 mcg Losartan Potassium (Cozaar) 100 mg PO DAILY [facility] Ondansetron HCl (Zofran Inj) 4 mg IVP Q6H PRN PRN Reason: Nausea/Vomiting Pantoprazole Sodium (Protonix Ec Tab) 40 mg PO DAILY [facility] Rosuvastatin Calcium (Crestor) 5 mg PO HS [facility] Last Admin: 10/04/17 22:18 Dose: 5 mg Zolpidem Tartrate (Ambien) 5 mg PO HS PRN PRN Reason: Insomnia Last Admin: 10/04/17 23:27 Dose: 5 mg - Labs Labs: 10/05/17 05:55 10/05/17 05:55 PT 12.2 SECONDS (9.7-12.2) 10/04/17 18:30 INR 1.1 10/04/17 18:30 APTT 29 SECONDS (21-34) 10/04/17 18:30 - Constitutional Appears: No Acute Distress - Head Exam Head Exam: ATRAUMATIC, NORMAL INSPECTION - Eye Exam Eye Exam: EOMI, Normal appearance - ENT Exam ENT Exam: Mucous Membranes Moist - Respiratory Exam Respiratory Exam: Clear to Ausculation Bilateral, NORMAL BREATHING PATTERN - Cardiovascular Exam Cardiovascular Exam: REGULAR RHYTHM, +S1, +S2 - GI/Abdominal Exam GI & Abdominal Exam: Soft, Tenderness (epigastric tenderness ), Normal Bowel Sounds. absent: Firm, Rigid - Extremities Exam Extremities Exam: Normal Inspection - Neurological Exam Neurological Exam: Alert, Awake, Oriented x3 - Psychiatric Exam Psychiatric exam: Anxious - Skin Skin Exam: Normal Color, Warm Assessment and Plan - Assessment and Plan (Free Text) Assessment: 7 yo Female with PMHx of HTN, HLD, DM, CAD, CABG, Hx of Breast Cancer ( s/p lumpectomy), and Hypothyroidism presents to the ED for chest pain. This afternoon patient was non-compliant with care and medical recommendations. Patient was explained why the blood work and abdominal CT with IV contrast warranted to be done due to her abdominal but patient continued to refuse. Patient was given pain medication and anti-nausea medication. Patient was again seen and she threatened to leave the hospital and called her PMD Dr. Jimenez. I spoke with Dr. Jimenez and explained her hospital course and he stated he agreed. Patient's son later came to bedside. I spoke with patient's son with patient's permission and explained her care and the plan for catheterization tomorrow. Patient continued to be agitated. 1.) Chest Pain secondary to LBBB - Cardiology Consult: Dr. Childs --> help appreciated * Per resident note patient is scheduled for cardiac catheterization for at 10am * Patient NPO after midnight - EKGx3: LBBB - JOANNA x3 negative - Lipid panel: Cholesterol 159; LDL 91; HDL 41; Triglycerides 94 - TSH 2.92; Free T4 1.49 - Imaging * CT Chest w/ IV: 1. No evidence of thoracic aortic aneurysm, dissection, or rupture. 2. No acute pulmonary embolism. 3. Hepatic cysts * Chest X-ray: No interval acute cardiopulmonary disease appreciated * f/u ECHO * Last ECHO 2016 LVEF 63% - Medications * ASA 81mg PO daily 2.) CAD s/p CABG (2014) - Had an abnormal stress test 09/2016 3.) Hyperkalemia - resolved 5.6 on admission Once dose Kayexalate given 4.) Abdominal Pain - Abdominal CT with IV contrast - patient refused studies at this time - Amylase 87, lipase 217 - Lactate - patient refused labs - Morphine 1mg q6h PRN for pain - Zofran PRN - Colace 100mg PO BID PRN 5.) Elevated T. Bili - 1.4 -Continue to Monitor 6.) Transaminitis - Continue to Monitor 7.) History of HTN - Resumed home medications: Norvasc 5mg PO daily, Cozaar 100mg PO daily 8.) History of HLD - Continue with home medication (lipitor not on formulary): Crestor 5mg PO QHS 9.) History of DM - Accuchecks - HGA1C: 7.1 (09/2017) - Carb Consistent Diet - Held home medication: Metformin - ISS- moderate 10.) History of Hypothyroidism - TSH 2.92; Free T4 1.49 - Continue with home medication: Synthroid 50mcg PO daily 11.) History Breast Cancer 12.) Prophylactic Measures - GI PPX: Protonix 40mg PO daily - DVT PPX: SCDs, Heparin Q12 - Palliative Care Consult --> help appreciated Case discussed with Dr. Genny Rutlegde PGY-1 <Dianne Royal V - Last Filed: 10/13/17 13:41> Objective - Vital Signs/Intake and Output Vital Signs (last 24 hours): Temp Pulse Resp BP Pulse Ox 98.6 F 106 H 15 104/57 L 96 10/13/17 08:00 10/13/17 11:01 10/13/17 11:01 10/13/17 11:01 10/13/17 10:00 Intake and Output: 10/13/17 10/13/17 06:59 18:59 Intake Total 1159.9 720.0 Output Total 1200 800 Balance -40.1 -80.0 - Medications Medications: Current Medications Acetaminophen (Tylenol 325mg Tab) 650 mg PO Q6 PRN PRN Reason: Fever >100.4 F Amlodipine Besylate (Norvasc) 10 mg PO DAILY [facility] Last Admin: 10/13/17 09:43 Dose: 10 mg Aspirin (Aspirin Chewable) 81 mg PO DAILY [facility] Last Admin: 10/13/17 09:43 Dose: 81 mg Diltiazem HCl (Cardizem) 30 mg PO Q6 TIM Furosemide (Lasix) 40 mg IVP Q12 [facility] Last Admin: 10/13/17 09:44 Dose: 40 mg Metronidazole (Flagyl) 500 mg in 100 mls @ 100 mls/hr IVPB Q8 [facility] Last Admin: 10/13/17 13:02 Dose: 100 mls/hr Meropenem 1 gm/ Sodium (Chloride) 100 mls @ 100 mls/hr IVPB Q8H [facility] Last Admin: 10/13/17 13:01 Dose: 100 mls/hr Diltiazem HCl 125 mg/ Dextrose 125 mls @ 5 mls/hr IV .Q24H TIM; 5 MG/HR PRN Reason: Protocol Last Admin: 10/13/17 09:48 Dose: 10 mg/hr, 10 mls/hr Potassium Chloride 15 meq/Potassium Phosphate 15 mmole/Magnesium Sulfate 10 meq/ Calcium Gluconate 4.5 meq/Insulin Human Regular 10 unit/Heparin Sodium (Porcine ) 1, 000 units/ Chromium/Copper/Manganese/Zinc 1 ml/Multivitamins/Vitamin C 10 ml/Amino Acids 1,036.7404 mls @ 42 mls/hr IV .Q24H ONE Stop: 10/13/17 17:59 Last Admin: 10/12/17 17:06 Dose: 42 mls/hr Potassium Phosphate 15 mmole/ (Dextrose) 255 mls @ 50 mls/hr IV .Q5H6M [facility] Stop: 10/13/17 16:29 Last Admin: 10/13/17 12:05 Dose: 50 mls/hr Insulin Human Regular (Novolin R) 0 unit SC Q6H TIM PRN Reason: Protocol Last Admin: 10/13/17 12:06 Dose: 2 unit Levothyroxine Sodium (Synthroid) 50 mcg PO DAILY@0630 [facility] Last Admin: 10/13/17 05:55 Dose: 50 mcg Losartan Potassium (Cozaar) 100 mg PO DAILY [facility] Last Admin: 10/13/17 09:43 Dose: 100 mg Metoprolol Tartrate (Lopressor) 5 mg IVP Q6H [facility] Last Admin: 10/13/17 12:10 Dose: 5 mg Midazolam HCl (Versed Inj) 2 mg IVP Q4H PRN PRN Reason: Agitation Last Admin: 10/11/17 07:17 Dose: 2 mg Ondansetron HCl (Zofran Inj) 4 mg IVP Q6H PRN PRN Reason: Nausea/Vomiting Last Admin: 10/10/17 21:10 Dose: 4 mg Pantoprazole Sodium (Protonix Inj) 40 mg IVP DAILY [facility] Last Admin: 10/13/17 09:44 Dose: 40 mg Polyethylene Glycol (Miralax) 17 gm PO BID PRN PRN Reason: Constipation Last Admin: 10/07/17 10:14 Dose: 17 gm Potassium Chloride (Potassium Chloride Oral Soln) 40 meq PO Q6H TIM Stop: 10/13/17 22:46 Last Admin: 10/13/17 10:47 Dose: 40 meq Rosuvastatin Calcium (Crestor) 5 mg NG HS [facility] Last Admin: 10/12/17 21:21 Dose: 5 mg Saccharomyces Boulardii (Florastor) 250 mg NG BID [facility] Last Admin: 10/13/17 09:44 Dose: 250 mg Vitamin A (Vitamin A & D Oint Ud Foilpak) 0.5 ea TOP Q4 [facility] Last Admin: 10/13/17 12:10 Dose: 0.5 ea - Labs Labs: 10/13/17 06:29 10/13/17 06:28 PT 15.4 SECONDS (9.7-12.2) H 10/13/17 06:29 INR 1.4 10/13/17 06:29 APTT 71 SECONDS (21-34) H 10/13/17 06:29 Attending/Attestation - Attestation I have personally seen and examined this patient.: Yes I have fully participated in the care of the patient.: Yes I have reviewed all pertinent clinical information, including history, physical exam and plan: Yes Notes (Text): This is late computer entry for 10/05/17. Patient seen, examined and case discussed with day-time resident. Patient seen this morning during morning rounds no family present. Patient describes in great details in regards to her maternal line of family in regards to sudden cardiac , all in great detail. Will ask palliative care for consult in regards to goals of care for the patient. Patient reports in regards to her breast cancer hx she has had lumpectomy but does not described being on any chemotherapeutic and reports she does go for her mammograms every 2 years and self-describes nothing abnormal found. Patient reports she follow with her bolt labeler, Dr. Loja has outpatient. Patient was seen earlier by the resident working with Dr. Childs, bolt labeler. Patient is going for cardiac catherization tomorrow at 10am. Patient has new EKG change on this admission compared to her old one in the chart, LBBB. Patient reports she has not have a bowel movements in three days. Will given medication help her have a bowel movement. During the course of the afternoon, patient has been re-evaluated by the resident, and refusing blood working and CT Abdomen IV given her abdominal pain. Patient also given pain medication and anti-nausea medication. Patient was again seen and she threatened to leave the hospital and called her PMD Dr. Jimenez. Resident spoke with Dr. Jimenez and explained her hospital course and he stated he agreed. I also spoke with Dr. Jimenez as well given patient has been refusing things throughout the day. I came and evaluated the patient in the evening with her nurse Delia. Patient is upset with the echocardiogram tech. She is asking why she had to press so hard while taking a picture; patient is using strong language and cursing. I explained to her the echocardiogram tech has to be able to get the most adequate picture of her heart which is which she needs to press hard. Patient will allow for lactate acid draw and I have ordered her Morphine 4mg IV X1 for her abdominal pain. Assessment/Plan 1.) Chest Pain secondary to LBBB * Cardiology Consult: Dr. Childs --> help appreciated * Per resident note patient is scheduled for cardiac catheterization for at 10am * Patient NPO after midnight * EKGx3: LBBB, which is change from prior EKG * JOANNA x3 negative * Had an abnormal stress test 09/2016 * Lipid panel: Cholesterol 159; LDL 91; HDL 41; Triglycerides 94 * TSH 2.92; Free T4 1.49 * Imaging * CT Dissection Protocol w/ IV: 1. No evidence of thoracic aortic aneurysm, dissection, or rupture. 2. No acute pulmonary embolism. 3. Hepatic cysts * Chest X-ray: No interval acute cardiopulmonary disease appreciated * f/u ECHO official report * Last ECHO 2016 LVEF 63% * Medications * ASA 81mg PO daily * Norvasc 5mg PO daily * Cozaar 100mg PO daily * Crestor 5mg POqHS (Lipitor not available on hospital formulary) 2.) Hyperkalemia - resolved 5.6 on admission Once dose Kayexalate given 3.) Abdominal Pain * CT dissection protocol-->findings available in the EMR * Abdominal CT with IV contrast - patient refused studies at this time * Amylase 87, lipase 217 * Lactate acid - patient refused labs during the day; in the evening with me, patient will allow for the lactate acid * Morphine 1mg q6h PRN for pain * Zofran PRN * Colace 100mg PO BID PRN 4.) Transaminitis * Continue to Monitor 5.) History of HTN * Resumed home medications: Norvasc 5mg PO daily, Cozaar 100mg PO daily 6.) History of HLD * Continue with home medication (lipitor not on formulary): Crestor 5mg PO QHS 7.) History of DM * Accuchecks AC and HS * HGA1C: 7.1 (09/2017) * Carb Consistent Diet * Held home medication: Metformin * ISS- moderate * Cozaar 100mg PO daily * Crestor 5mg POqHS (Lipitor not available on hospital formulary) 8.) History of Hypothyroidism * TSH 2.92; Free T4 1.49 * Continue with home medication: Synthroid 50mcg PO daily 9.) History Breast Cancer 10.) Prophylactic Measures * GI PPX: Protonix 40mg PO daily * DVT PPX: SCDs, Heparin Q12 * Palliative Care Consult --> help appreciated for code status
[2017-10-05] MEDS: (Novolin R) Insulin Human Regular 100 units/ml vial SC SCH ×4 (08:04→21:48)
--- NOTE | 2017-10-05 08:05 | RAD ---
PROCEDURE: CHEST RADIOGRAPH, 1 VIEW HISTORY: chest pain COMPARISON: Chest radiograph 10/04/[address] 02/07/2014. FINDINGS: LUNGS: No acute infiltrate is identified bilaterally. A small calcified granuloma is again seen at the mid right chest most conspicuously seen in prior chest CT 02/07/2014. PLEURA: No pneumothorax or pleural fluid seen. CARDIOVASCULAR: Post CABG changes again appreciated with cardiac size stable. No pulmonary vascular derangement identified. Permanent cardiac pacemaker again noted. OSSEOUS STRUCTURES: No significant abnormalities. VISUALIZED UPPER ABDOMEN: Normal. OTHER FINDINGS: None. IMPRESSION: No interval acute cardiopulmonary disease appreciated.
[2017-10-05] MEDS ORDERED: Magnesium Sulfate 1 gm in D5W 1 GM/100 ML BAG IVPB ONE (10:00)
[2017-10-05] MEDS ORDERED: Pantoprazole 40 mg EC Tab PO SCH (10:00)
[2017-10-05 12:23] LABS: TROPONIN I 0.026 ng/mL (0.00-0.120)
[2017-10-05 12:50] LABS: CK-MB 1.85 ng/mL (0.0-3.38)
[2017-10-05] MEDS ORDERED: Sodium Chloride 0.9% 1,000 ML IV SCH ×2 (13:15→19:00)
[2017-10-05 16:21] LABS: AMYLASE 87 U/L (30-110); LIPASE 217 U/L (23-300)
[2017-10-05] MEDS ORDERED: Morphine 4 MG/ML VIAL IVP STA (18:46)
[2017-10-06] MEDS: Levothyroxine 50 MCG TAB PO SCH (05:45)
[2017-10-06 08:50] LABS: MEAN CELL VOLUME 87.4 fL (81.0-99.0); MEAN CORPUSCULAR HEMOGLOBIN 29.2 pg (27.0-31.0); MEAN CORPUSCULAR HGB CONC 33.5 g/dL (33.0-37.0); MEAN PLATELET VOLUME 9.8 fL (7.2-11.7); PLATELET COUNT 250 K/uL (130-400); RBC 5.12 Mil/uL (3.80-5.20); RED CELL DISTRIBUTION WIDTH 14.8 % (11.5-14.5); WHITE BLOOD COUNT 10.8 K/uL (4.8-10.8)
[2017-10-06] MEDS: (Novolin R) Insulin Human Regular 100 units/ml vial SC SCH ×4 (09:08→21:45)
[2017-10-06 09:14] LABS: ALBUMIN 3.8 g/dL (3.5-5.0); ALT/SGPT 25 U/L (9-52); AST/SGOT 30 U/L (14-36); BLOOD UREA NITROGEN 22 mg/dL (7-17); CALCIUM 9.2 mg/dl (8.6-10.4); GFR AFRICAN-AMERICAN > 60; GFR NON-AFRICAN AMERICAN > 60; MAGNESIUM 1.6 mg/dL (1.6-2.3)
--- NOTE | 2017-10-06 09:24 | CP.PCM.PN ---
Subjective - Date & Time of Evaluation Date of Evaluation: 10/06/17 Time of Evaluation: 09:15 - Subjective Subjective: Cardiology progress note for Dr. Amadeo Jon, DO PGY - 1 - Please see nurse/physician communication note for contact information Patient seen and examined at bedside. Patient is a little anxious about her procedure today, I explained the risks and benefits, obtained consent, and reassured her. I also spoke to her son, Mr. Kim, regarding the procedure. Patient denies any chest pain, shortness of breath, and leg swelling. Patient further denies nausea, vomiting, diarrhea, fevers, and chills. Objective - Vital Signs/Intake and Output Vital Signs (last 24 hours): Temp Pulse Resp BP Pulse Ox 98.9 F 113 H 20 146/76 97 10/06/17 07:26 10/06/17 07:26 10/06/17 07:26 10/06/17 07:26 10/06/17 07:26 Intake and Output: 10/06/17 10/06/17 06:59 18:59 Intake Total 650 Output Total 0 Balance 650 - Medications Medications: Current Medications Amlodipine Besylate (Norvasc) 10 mg PO DAILY [facility] Last Admin: 10/06/17 09:06 Dose: 10 mg Aspirin (Ecotrin) 81 mg PO DAILY [facility] Last Admin: 10/06/17 09:06 Dose: 81 mg Docusate Sodium (Colace) 100 mg PO BID PRN PRN Reason: Constipation Famotidine (Pepcid) 20 mg PO DAILY [facility] Last Admin: 10/06/17 09:06 Dose: 20 mg Heparin Sodium (Porcine) (Heparin) 5,000 units SC Q12 [facility] Last Admin: 10/05/17 21:45 Dose: 5,000 units Insulin Human Regular (Novolin R) 0 unit SC ACHS [facility] PRN Reason: Protocol Last Admin: 10/06/17 09:08 Dose: Not Given Levothyroxine Sodium (Synthroid) 50 mcg PO DAILY@0630 [facility] Last Admin: 10/06/17 05:45 Dose: Not Given Losartan Potassium (Cozaar) 100 mg PO DAILY [facility] Last Admin: 10/06/17 09:07 Dose: 100 mg Morphine Sulfate (Morphine) 1 mg IV Q4H PRN PRN Reason: Pain, moderate (4-7) Last Admin: 10/05/17 18:09 Dose: 1 mg Nebivolol (Bystolic) 10 mg PO DAILY TIM Last Admin: 10/06/17 09:08 Dose: 10 mg Ondansetron HCl (Zofran Inj) 4 mg IVP Q6H PRN PRN Reason: Nausea/Vomiting Last Admin: 10/05/17 10:31 Dose: 4 mg Rosuvastatin Calcium (Crestor) 5 mg PO HS TIM Last Admin: 10/05/17 21:45 Dose: 5 mg Zolpidem Tartrate (Ambien) 5 mg PO HS PRN PRN Reason: Insomnia Last Admin: 10/04/17 23:27 Dose: 5 mg - Labs Labs: 10/06/17 08:38 10/06/17 08:38 PT 12.2 SECONDS (9.7-12.2) 10/04/17 18:30 INR 1.1 10/04/17 18:30 APTT 29 SECONDS (21-34) 10/04/17 18:30 - ENT Exam ENT Exam: TM's Normal Bilaterally - Additional Findings Additional findings: Physical Exam: Vital Signs as below Const'l: awake alert & oriented x 4, no acute distress, pleasant, obese woman Head/Neck: neck supple, no jvd, trachea midline, carotid midline, no cervical/head mass Eyes: pupils equally reactive to light and accommodation, nonicteric sclera, extraocular intact ENT: auditory acuity grossly intact, throat not congested, no nasal deformity Cardio: +scar on chest wall on left and right sides, regular rate, regular rhythm, no murmurs rubs gallops, no carotid bruit, normal s1, s2 Pulm: no accessory muscle use, equal normal breath sounds bilaterally, clear to ausculation bilaterally Abd: +obesity limiting exam, +slightly diminished bowel sounds in lower quadrants; soft non tender non-distended, no palpable masses Derm: no rashes, no ulcers, no lesions Extr: no edema, no cyanosis, no calf tenderness, no lesions, no varicosities Neuro: cranial nerves II-XII grossly intact, upper extremity and lower extremity 5/5 muscle strength bilaterally, no loss of sensation in upper extremities, lower extremities bilaterally and core Assessment and Plan - Assessment and Plan (Free Text) Assessment: Assessment and Plan: 77 year old female with extensive cardiac history including CABG (2012), Cath with results as below (2014), and Abnormal stress test (2017) presents with 4 hour duration of chest pain. Troponins at .0230-->.0220-->.0260. EKG shows new LBBB with NSR at 90 bpm Holter in 2017 showed NSR with max HR 121, SVT at HR of 146 and rare VPC, isolated APC. Cardiac Cath in 2015 showed distal main coronary artery 70-80% concentric stenosis mid LAD 70-80% stenosis, RCA 20-30% non-obstructing stenosis , and large diagonal branch 85% proximal stenosis. with LVEF of 60%. Basal inferior wall akinetic. Previous ECHO showed borderline concentric LVH with grade I abnormal relaxation pattern, severe aortic stenosis, mild mitral regurg , and mild to moderate pulmonic regurg. LVEF was 60-65%. History of pacemaker placement per chart review. Chest Pain r/o ACS - EK, and LBBB not found on previous EKG's in system - Troponin X 1 at .0230, X2 at .0220; baseline is <.0120; CK-MB 1.87-1.85 - BNP elevated at 1580, past BNP's 799-955, with one at 1930 in 2012. - TSH, T4, Lipids - wnl - Mg/Phos:1.3/3.4 - CT Chest with IV: No aneurysm, no dissection, no PE - Follow up Troponins, EKGs - ECHO ordered, Nitro given, ASA 81 daily, Cozaar daily, Norvasc daily, Crestor daily New Left Bundle Branch Block - Patient already has a pacemaker placed (LBBB could be 2/2 to pacing) - Serial JOANNA panel, Serial EKGs, as above - Patient cardiac cath today, Results are: Briefly, LAD to [place] is patent, but other graft is gone. There actually is no jump graft RCA is now 50% stenosed, moreso than last cath Please see operative note for further details CAD s/p CABG (2012) - Crestor, Cozaar, ASA daily HTN - Norvasc 5mg PO daily, Cozaar 100mg PO daily HLD - Crestor 5mg PO QHS (patient's home medication is lipitor) DM - HGA1C: 7.1 (09/2017), Held home medication: Metformin - Carb Consistent Diet, Accuchecks, RISS - Mod Hyperkalemia - Per primary team Elevated T. Bili - Per primary team Transaminitis - Per primary team Hypothyroidism - Per primary team Hx Breast Cancer - Per primary team Prophylactic Measures - GI PPX: Protonix 40mg PO daily - DVT PPX: SCDs, Heparin Q12
[2017-10-06] MEDS ORDERED: Midazolam 2 MG/2 ML VIAL ONE (09:53)
[2017-10-06] MEDS ORDERED: Nitroglycerin 50mg in D5W 0 MG/0 ML BOTTLE IV ONE (10:07)
--- NOTE | 2017-10-06 10:39 | CARD ---
APPROVED REPORT EKG Measurement Heart [id number] <Conclusion> Normal sinus rhythm Left bundle branch block Abnormal ECG
[2017-10-06 11:05] LABS: LYMPH # 1.3 K/uL (1.0-4.3); MONO # 1.5 K/uL (0.0-0.8)
[2017-10-06 11:15] LABS: BANDS 13 % (0-2); LYMPHOCYTE 14 % (20-40); MONOCYTE 18 % (0-10); NEUTROPHIL 55 % (50-75); TOTAL CELLS COUNTED 100
[2017-10-06 11:16] LABS: PLATELET ESTIMATE NORMAL (NORMAL)
--- NOTE | 2017-10-06 11:44 | CP.PCM.CON ---
<Maral Modi - Last Filed: 10/06/17 14:48> History of Present Illness - History of Present Illness History of Present Illness: GI consult note for Dr Kee service Reason for consult: Hepatic cysts. Patient is a 77 y/o with PMHx htn, hld, IDDM2, CAD s/p CABG, breast cancer s/p lumpectomy and radiation, hypothyroidism, severe aortic stenosis, grade 1 diastolic dysfunction, sick sinus syndrome symptomatic bradycardia s/p pacemaker whom presented with substernal chest pain, had CTA to rule out dissection and was found to have multiple hepatic cysts with the largest measuring 16 cm, thus GI is consulted to evaluate patient. Upon reviewing prior imaging, patient had CT angio of the chest back in 02/07/14 revealing multiple liver cysts largest measuring 13X12 cm in the right hepatic lobe. Patient states yesterday she had an episode of left lower quadrant abdominal pain along with vomiting non billous, non bloody vomitus for about 10 times, however no abdominal pain at this moment. Patient was never told she has history of polycystic kidney disease or liver disease. Patient has no family history of PCKD. Patient history of oral contraceptive use, states she used it for long period in her youth. S/P diagnostic cardiac cath. Denies upper quadrant abdominal pain, fever, chills , nausea, vomiting or diarrhea. Denies recent travel. Bowel movement every 3 days, no bowel movement since admission.. PMHx: htn, hld, IDDM2, CAD s/p CABG, breast cancer s/p lumpectomy and radiation , hypothyroidism, severe aortic stenosis, grade 1 diastolic dysfunction, sick sinus syndrome symptomatic bradycardia s/p pacemaker, morbidly obese. PSHx: lumpectomy in 2013, pacemaker 2012, no history of colonoscopy or EGD. FMHx: no history of PCKD in the family, no history of cancers in the family. Social: Former tobacco, denies history of alcohol or illicit drug use. Home meds: synthroid, ASA, Norvasc, metformin Allergy: NKDA Review of Systems - Review of Systems All systems: reviewed and no additional remarkable complaints except Review of Systems: 12 points ROS reviewed, all negative except as per HPI. Past Patient History - Past Medical History & Family History Past Medical History?: Yes - Past Social History Smoking Status: Former Smoker Alcohol: None Drugs: Denies Home Situation {Lives}: With Family - CARDIAC Hx Cardia Arrhythmia: Yes Hx Hypercholesterolemia: Yes Hx Hypertension: Yes Hx Pacemaker: Yes - PULMONARY Hx Respiratory Disorders: Yes (SOB SOMETIMES) - NEUROLOGICAL Hx Neurological Disorder: Yes - HEENT Hx HEENT Problems: Yes Hx Cataracts: Yes (removed bilateral 2011) - RENAL Hx Chronic Kidney Disease: No - ENDOCRINE/METABOLIC Hx Hypothyroidism: Yes - HEMATOLOGICAL/ONCOLOGICAL Hx Blood Disorders: Yes Hx Cancer: Yes (LEFT BREAST-RADIATION TX. DONE) - INTEGUMENTARY Hx Dermatological Problems: Yes Other/Comment: CANCER LEFT BREAST-LUMPECTOMY DONE - MUSCULOSKELETAL/RHEUMATOLOGICAL Hx Arthritis: Yes (KNEE PAIN) - GASTROINTESTINAL Hx Gastrointestinal Disorders: No - GENITOURINARY/GYNECOLOGICAL Hx Genitourinary Disorders: No - PSYCHIATRIC Hx Anxiety: Yes Hx Depression: Yes Hx Substance Use: No - SURGICAL HISTORY Hx Coronary Artery Bypass Graft: Yes (jan 17 2013 TRIPLE) Hx Coronary Stent: Yes Hx Tonsillectomy: Yes - ANESTHESIA Hx Anesthesia: Yes Hx Anesthesia Reactions: No Hx Malignant Hyperthermia: No Meds Allergies/Adverse Reactions: Allergies Allergy/AdvReac Type Severity Reaction Status Date / Time No Known Allergies Allergy Verified 10/04/17 17:45 - Medications Medications: Current Medications Amlodipine Besylate (Norvasc) 10 mg PO DAILY [facility] Last Admin: 10/06/17 09:06 Dose: 10 mg Aspirin (Ecotrin) 81 mg PO DAILY [facility] Last Admin: 10/06/17 09:06 Dose: 81 mg Docusate Sodium (Colace) 100 mg PO BID PRN PRN Reason: Constipation Famotidine (Pepcid) 20 mg PO DAILY [facility] Last Admin: 10/06/17 09:06 Dose: 20 mg Heparin Sodium (Porcine) (Heparin) 5,000 units SC Q12 [facility] Last Admin: 10/06/17 09:20 Dose: 5,000 units Piperacillin Sod/Tazobactam Sod (Zosyn 2.25 Gm Iv Premix) 2.25 gm in 50 mls @ 100 mls/hr IVPB Q6 [facility] Insulin Human Regular (Novolin R) 0 unit SC ACHS [facility] PRN Reason: Protocol Last Admin: 10/06/17 09:08 Dose: Not Given Levothyroxine Sodium (Synthroid) 50 mcg PO DAILY@0630 [facility] Last Admin: 10/06/17 05:45 Dose: Not Given Losartan Potassium (Cozaar) 100 mg PO DAILY [facility] Last Admin: 10/06/17 09:07 Dose: 100 mg Morphine Sulfate (Morphine) 1 mg IV Q4H PRN PRN Reason: Pain, moderate (4-7) Last Admin: 10/05/17 18:09 Dose: 1 mg Nebivolol (Bystolic) 10 mg PO DAILY [facility] Last Admin: 10/06/17 09:08 Dose: 10 mg Ondansetron HCl (Zofran Inj) 4 mg IVP Q6H PRN PRN Reason: Nausea/Vomiting Last Admin: 10/05/17 10:31 Dose: 4 mg Rosuvastatin Calcium (Crestor) 5 mg PO HS [facility] Last Admin: 10/05/17 21:45 Dose: 5 mg Zolpidem Tartrate (Ambien) 5 mg PO HS PRN PRN Reason: Insomnia Last Admin: 10/04/17 23:27 Dose: 5 mg Physical Exam - Constitutional Appears: No Acute Distress, Chronically Ill - Head Exam Head Exam: ATRAUMATIC, NORMAL INSPECTION, NORMOCEPHALIC - Eye Exam Eye Exam: EOMI, Normal appearance, PERRL. absent: Scleral icterus - ENT Exam ENT Exam: Mucous Membranes Moist - Neck Exam Neck exam: Positive for: Normal Inspection. Negative for: Full Rom - Respiratory Exam Respiratory Exam: Clear to Auscultation Bilateral, NORMAL BREATHING PATTERN. absent: Rales, Rhonchi, Wheezes, Respiratory Distress, Stridor - Cardiovascular Exam Cardiovascular Exam: REGULAR RHYTHM, RRR, +S1, +S2, Systolic Murmur - GI/Abdominal Exam GI & Abdominal Exam: Normal Bowel Sounds, Organomegaly, Soft, Tenderness (Left lower quadrant ). absent: Distended, Firm, Guarding, Rebound, Rigid Additional comments: Obese abdomen. - Extremities Exam Extremities exam: Positive for: normal inspection. Negative for: pedal edema, tenderness - Back Exam Back exam: NORMAL INSPECTION - Neurological Exam Neurological exam: Alert, Oriented x3 - Psychiatric Exam Psychiatric exam: Normal Affect, Normal Mood - Skin Skin Exam: Dry, Normal Color, Warm Additional comments: Right groin with clean dressing Results - Vital Signs Recent Vital Signs: Last Vital Signs Temp 98.9 F 10/06/17 07:26 Pulse 113 H 10/06/17 07:26 Resp 20 10/06/17 07:26 BP 146/76 10/06/17 07:26 Pulse Ox 97 10/06/17 07:26 - Labs Result Diagrams: 10/06/17 08:38 10/06/17 08:38 Labs: Laboratory Results - last 24 hr 10/05/17 10/05/17 10/05/17 08:53 11:41 16:11 WBC RBC Hgb Hct MCV MCH MCHC RDW Plt Count MPV Neut % (Auto) Lymph % (Auto) [place] % (Auto) Eos % (Auto) Baso % (Auto) Neut # Lymph # [place] # Eos # Baso # Neutrophils % (Manual) Band Neutrophils % Lymphocytes % (Manual) Monocytes % (Manual) Platelet Estimate RBC Morphology Sodium Potassium Chloride Carbon Dioxide Anion Gap BUN Creatinine Est GFR ( Amer) Est GFR (Non-Af Amer) POC Glucose (mg/dL) Random Glucose Lactic Acid Calcium Phosphorus Magnesium Total Bilirubin AST ALT Alkaline Phosphatase Total Creatine Kinase 130 CK-MB (Mass) 1.85 Troponin I 0.0260 Total Protein Albumin Globulin Albumin/Globulin Ratio Amylase 87 Lipase 217 Influenza Typ A,B (EIA) Negative for flu a/b 10/05/17 10/05/17 10/05/17 16:49 20:00 21:01 WBC RBC Hgb Hct MCV MCH MCHC RDW Plt Count MPV Neut % (Auto) Lymph % (Auto) [place] % (Auto) Eos % (Auto) Baso % (Auto) Neut # Lymph # [place] # Eos # Baso # Neutrophils % (Manual) Band Neutrophils % Lymphocytes % (Manual) Monocytes % (Manual) Platelet Estimate RBC Morphology Sodium Potassium Chloride Carbon Dioxide Anion Gap BUN Creatinine Est GFR ( Amer) Est GFR (Non-Af Amer) POC Glucose (mg/dL) 218 H 199 H Random Glucose Lactic Acid 2.4 H Calcium Phosphorus Magnesium Total Bilirubin AST ALT Alkaline Phosphatase Total Creatine Kinase CK-MB (Mass) Troponin I Total Protein Albumin Globulin Albumin/Globulin Ratio Amylase Lipase Influenza Typ A,B (EIA) 10/06/17 10/06/17 10/06/17 06:30 08:38 08:38 WBC 10.8 RBC 5.12 Hgb 15.0 Hct 44.7 MCV 87.4 MCH 29.2 MCHC 33.5 RDW 14.8 H Plt Count 250 MPV 9.8 Neut % (Auto) 74.0 Lymph % (Auto) 12.0 L [place] % (Auto) 14.0 H Eos % (Auto) 0.0 Baso % (Auto) 0.0 Neut # 8.0 H Lymph # 1.3 [place] # 1.5 H Eos # 0.0 Baso # 0.0 Neutrophils % (Manual) 55 Band Neutrophils % 13 H* Lymphocytes % (Manual) 14 L Monocytes % (Manual) 18 H Platelet Estimate Normal RBC Morphology Normal Sodium 135 Potassium 3.5 L Chloride 98 Carbon Dioxide 28 Anion Gap 13 BUN 22 H Creatinine 0.7 Est GFR ( Amer) > 60 Est GFR (Non-Af Amer) > 60 POC Glucose (mg/dL) 180 H Random Glucose 192 H Lactic Acid Calcium 9.2 Phosphorus 2.9 Magnesium 1.6 Total Bilirubin 0.7 AST 30 ALT 25 Alkaline Phosphatase 126 Total Creatine Kinase CK-MB (Mass) Troponin I Total Protein 7.6 Albumin 3.8 Globulin 3.7 Albumin/Globulin Ratio 1.0 Amylase Lipase Influenza Typ A,B (EIA) 10/06/17 08:42 WBC RBC Hgb Hct MCV MCH MCHC RDW Plt Count MPV Neut % (Auto) Lymph % (Auto) [place] % (Auto) Eos % (Auto) Baso % (Auto) Neut # Lymph # [place] # Eos # Baso # Neutrophils % (Manual) Band Neutrophils % Lymphocytes % (Manual) Monocytes % (Manual) Platelet Estimate RBC Morphology Sodium Potassium Chloride Carbon Dioxide Anion Gap BUN Creatinine Est GFR ( Amer) Est GFR (Non-Af Amer) POC Glucose (mg/dL) Random Glucose Lactic Acid 1.8 Calcium Phosphorus Magnesium Total Bilirubin AST ALT Alkaline Phosphatase Total Creatine Kinase CK-MB (Mass) Troponin I Total Protein Albumin Globulin Albumin/Globulin Ratio Amylase Lipase Influenza Typ A,B (EIA) Assessment & Plan - Assessment and Plan (Free Text) Assessment: Patient is a 77 y/o with PMHx htn, hld, NIDDM2, CAD s/p CABG, breast cancer s/p lumpectomy and radiation, hypothyroidism, severe aortic stenosis, grade 1 diastolic dysfunction, sick sinus syndrome symptomatic bradycardia s/p pacemaker whom presented with substernal chest pain, along with llq abdominal pain and vomiting. Patient had CTA to rule out dissection and was found to have multiple hepatic cysts with the largest measuring 16 cm, thus GI is consulted to evaluate patient. Upon exam, patient had no right upper quadrant abdominal pain, had left lower quadrant abdominal pain, CT, images were reviewed by Dr Boland and radiologist, no acute finding on the left side of the abdomen, other than atrophic spleen, and 2.6 cm focal aneurysmal dilation of the infrarenal abdominal aorta. 1) Chronic multiple liver cysts with largest being 16 cm, was seen on 2013 CT imaging however the largest measured 13x12 cm at the time. 2) HTN 3) HLD 4) NIDDM2 5) CAD s/p CABG 6) BREAST CANCER S/P lumpectomy and radiation. 7) Hypothyroidism 8) severe aortic stenosis 9)Former tobacco and vasculopathy Plan: - Since patient is asymptomatic ( no right upper quadrant abdominal pain), no fever, no recent travel, and chronic, less likely infectious. - Liver functions are normal - Will obtain hep panel - Patient can follow up as outpatient - If left lower abdominal pain persists, consider ua, and renal stone work up. Consider constipation. - Follow up with cardiology recommendations - Management as per primary. Patient seen, examined and case discussed with Gi fellows and Dr Boland. - Date & Time Date: 10/06/17 Time: 13:20 <Andrew Boland Y - Last Filed: 10/06/17 16:00> Meds - Medications Medications: Current Medications Amlodipine Besylate (Norvasc) 10 mg PO DAILY [facility] Last Admin: 10/06/17 09:06 Dose: 10 mg Aspirin (Ecotrin) 81 mg PO DAILY [facility] Last Admin: 10/06/17 09:06 Dose: 81 mg Famotidine (Pepcid) 20 mg PO DAILY [facility] Last Admin: 10/06/17 09:06 Dose: 20 mg Heparin Sodium (Porcine) (Heparin) 5,000 units SC Q12 [facility] Last Admin: 10/06/17 09:20 Dose: 5,000 units Piperacillin Sod/Tazobactam Sod (Zosyn 2.25 Gm Iv Premix) 2.25 gm in 50 mls @ 100 mls/hr IVPB Q6 [facility] Last Admin: 10/06/17 12:00 Dose: Not Given Sodium Chloride (Sodium Chloride 0.9%) 500 mls @ 70 mls/hr IV .Q7H9M [facility] Insulin Human Regular (Novolin R) 0 unit SC ACHS [facility] PRN Reason: Protocol Last Admin: 10/06/17 11:58 Dose: Not Given Isosorbide Mononitrate (Imdur) 60 mg PO DAILY [facility] Last Admin: 10/06/17 15:33 Dose: 60 mg Levothyroxine Sodium (Synthroid) 50 mcg PO DAILY@0630 [facility] Last Admin: 10/06/17 05:45 Dose: Not Given Losartan Potassium (Cozaar) 100 mg PO DAILY [facility] Last Admin: 10/06/17 09:07 Dose: 100 mg Morphine Sulfate (Morphine) 1 mg IV Q4H PRN PRN Reason: Pain, moderate (4-7) Last Admin: 10/05/17 18:09 Dose: 1 mg Nebivolol (Bystolic) 10 mg PO DAILY [facility] Last Admin: 10/06/17 09:08 Dose: 10 mg Ondansetron HCl (Zofran Inj) 4 mg IVP Q6H PRN PRN Reason: Nausea/Vomiting Last Admin: 10/05/17 10:31 Dose: 4 mg Polyethylene Glycol (Miralax) 17 gm PO BID PRN PRN Reason: Constipation Rosuvastatin Calcium (Crestor) 5 mg PO HS [facility] Last Admin: 10/05/17 21:45 Dose: 5 mg Zolpidem Tartrate (Ambien) 5 mg PO HS PRN PRN Reason: Insomnia Last Admin: 10/04/17 23:27 Dose: 5 mg Results - Vital Signs Recent Vital Signs: Last Vital Signs Temp 97.9 F 10/06/17 15:17 Pulse 110 H 10/06/17 15:17 Resp 20 10/06/17 15:17 BP 116/79 10/06/17 15:17 Pulse Ox 97 10/06/17 07:26 - Labs Result Diagrams: 10/06/17 08:38 10/06/17 08:38 Labs: Laboratory Results - last 24 hr 10/05/17 10/05/17 10/05/17 16:11 16:49 20:00 WBC RBC Hgb Hct MCV MCH MCHC RDW Plt Count MPV Neut % (Auto) Lymph % (Auto) [place] % (Auto) Eos % (Auto) Baso % (Auto) Neut # Lymph # [place] # Eos # Baso # Neutrophils % (Manual) Band Neutrophils % Lymphocytes % (Manual) Monocytes % (Manual) Platelet Estimate RBC Morphology Sodium Potassium Chloride Carbon Dioxide Anion Gap BUN Creatinine Est GFR ( Amer) Est GFR (Non-Af Amer) POC Glucose (mg/dL) 218 H Random Glucose Lactic Acid 2.4 H Calcium Phosphorus Magnesium Total Bilirubin AST ALT Alkaline Phosphatase Total Protein Albumin Globulin Albumin/Globulin Ratio Amylase 87 Lipase 217 10/05/17 10/06/17 10/06/17 21:01 06:30 08:38 WBC 10.8 RBC 5.12 Hgb 15.0 Hct 44.7 MCV 87.4 MCH 29.2 MCHC 33.5 RDW 14.8 H Plt Count 250 MPV 9.8 Neut % (Auto) 74.0 Lymph % (Auto) 12.0 L [place] % (Auto) 14.0 H Eos % (Auto) 0.0 Baso % (Auto) 0.0 Neut # 8.0 H Lymph # 1.3 [place] # 1.5 H Eos # 0.0 Baso # 0.0 Neutrophils % (Manual) 55 Band Neutrophils % 13 H* Lymphocytes % (Manual) 14 L Monocytes % (Manual) 18 H Platelet Estimate Normal RBC Morphology Normal Sodium Potassium Chloride Carbon Dioxide Anion Gap BUN Creatinine Est GFR ( Amer) Est GFR (Non-Af Amer) POC Glucose (mg/dL) 199 H 180 H Random Glucose Lactic Acid Calcium Phosphorus Magnesium Total Bilirubin AST ALT Alkaline Phosphatase Total Protein Albumin Globulin Albumin/Globulin Ratio Amylase Lipase 10/06/17 10/06/17 08:38 08:42 WBC RBC Hgb Hct MCV MCH MCHC RDW Plt Count MPV Neut % (Auto) Lymph % (Auto) [place] % (Auto) Eos % (Auto) Baso % (Auto) Neut # Lymph # [place] # Eos # Baso # Neutrophils % (Manual) Band Neutrophils % Lymphocytes % (Manual) Monocytes % (Manual) Platelet Estimate RBC Morphology Sodium 135 Potassium 3.5 L Chloride 98 Carbon Dioxide 28 Anion Gap 13 BUN 22 H Creatinine 0.7 Est GFR ( Amer) > 60 Est GFR (Non-Af Amer) > 60 POC Glucose (mg/dL) Random Glucose 192 H Lactic Acid 1.8 Calcium 9.2 Phosphorus 2.9 Magnesium 1.6 Total Bilirubin 0.7 AST 30 ALT 25 Alkaline Phosphatase 126 Total Protein 7.6 Albumin 3.8 Globulin 3.7 Albumin/Globulin Ratio 1.0 Amylase Lipase Attending/Attestation - Attestation I have personally seen and examined this patient.: Yes I have fully participated in the care of the patient.: Yes I have reviewed all pertinent clinical information: Yes Notes (Text): 10/06/17 15:51 I have seen and examined patient with GI fellow and medical device assembler. Agree with above documentation with the following additions. In brief, this is a 77 year old female with history of HTN, DM, CAD/CABG, breast cancer, hypothyroidism , aortic stenosis, bradycardia/SSS s/p PPM who was admitted to hospital for evaluation of substernal chest pain and vomiting. GI consulted for incidentally noted hepatic cyst following CT angiography dissection protocol. She is seen in cardiac packing house laborer following diagnostic procedure, resting in bed comfortably. She complains of LUQ abdominal pain but denies nausea, fever/ chills, weight loss, rectal bleeding, jaundice, pruritis, recent travel, or change in bowel habits. She does endorse chronic constipation and typically has a bowel movement every three days. No prior endoscopic evaluation. DM HTN CAD/CABG SSS s/p PPM, aortic stenosis Hypothyroidism Chest pain - s/p diagnostic cath Hepatic cyst - CT imaging reviewed with radiology showing large right lobe cystic lesion with smaller left lobe cystic lesion, no biliary dilation. Imaging compared with 2014, mild increase in size of cyst - Diet as tolerated - Follow up cardiology recommendations post catheterization - LFTs currently normal, monitor - Obtain viral hepatitis panel - Given patient is asymptomatic and appearance of lesions on imaging consistent with cystic disease, no further workup is indicated at this time. If patient becomes symptomatic, there is consideration for surgical intervention. - Maintain bowel regimen to prevent constipation - Suggest additional outpatient follow up and age appropriate screening colonoscopy if patient willing to undergo procedure. No further planned GI intervention, will sign off case. Please reconsult as necessary, thank you.
--- NOTE | 2017-10-06 11:57 | CARD ---
APPROVED REPORT EKG Measurement Heart [id number] ND 200P19 [id number] <Conclusion> Normal sinus rhythm Left bundle branch block Abnormal ECG
--- NOTE | 2017-10-06 11:57 | CARD ---
APPROVED REPORT EKG Measurement Heart [id number] FL 194P2 [id number] <Conclusion> Normal sinus rhythm Left bundle branch block Abnormal ECG
--- NOTE | 2017-10-06 11:57 | CARD ---
APPROVED REPORT EKG Measurement Heart [id number] [place] 204P11 [id number] <Conclusion> Normal sinus rhythm Left bundle branch block Abnormal ECG
[2017-10-06] MEDS: Piperacill/Tazo 2.25gm in Dex 2.25 GM/50 ML BAG IVPB SCH ×2 (12:00→18:29)
[2017-10-06] MEDS ORDERED: Sodium Chloride 0.9% 500 ML IV SCH (12:45)
--- NOTE | 2017-10-06 14:01 | CARD ---
APPROVED REPORT EXAM: Two-dimensional and M-mode echocardiogram with Doppler and color Doppler. Other Information Quality : Technically LimitedRhythm : Technically limited study due to TECHNICAL DIFFCULT STUDY INDICATION Chest Pain ABNORMAL STRESS Surgery/Intervention CABG: RISK FACTORS Hypertension 2D DIMENSIONS IVSd1.6 (0.7-1.1cm)LVDd4.4 (3.9-5.9cm) LVOT Diameter2.0 (1.8-2.4cm)PWd0.8 (0.7-1.1cm) LVDs3.0 (2.5-4.0cm)FS (%) 33.3 % LVEF (%)62.2 (>50%) M-Mode DIMENSIONS Left Atrium (MM)4.16 (2.5-4.0cm)Aortic Root2.68 (2.2-3.7cm) Aortic Cusp Exc.1.52 (1.5-2.0cm) Aortic Valve AoV Peak Nvwvhxzk935.9cm/sAoV VTI54.5cmAO Peak GR.38mmHg LVOT Peak Zxxnhxij279.7cm/sLVOT VTI18.35cmAO Mean GR.22mmHg AHNSA (VMAX)1.68ek7ARR (VTI)1.10cm2 Mitral Valve MV E Yslowmnq10.6cm/sMV A Xbatdlgc540.5cm/sE/A ratio0.5 TDI E/Lateral E'0.0E/Medial E'0.0 Tricuspid Valve TR Peak Ogktjxbc957qh/sTR Peak Gr.91uiLpWVTK16lsVh LEFT VENTRICLE The left ventricle is normal size. There is normal left ventricular wall thickness. The left ventricular function is normal. The left ventricular ejection fraction is within the normal range. Septal motion consistent with post-operative state. Transmitral Doppler flow pattern is Grade I-abnormal relaxation pattern. No left ventricle thrombus noted on this study. There is no ventricular septal defect visualized. There is no left ventricular aneurysm. There is no mass noted in the left ventricle. RIGHT VENTRICLE The right ventricle is normal size. There is normal right ventricular wall thickness. The right ventricular systolic function is normal. ATRIA The left atrium is mildly dilated. The right atrium size is normal. The interatrial septum is intact with no evidence for an atrial septal defect. AORTIC VALVE The aortic valve is mildly to moderately sclerotic. No aortic regurgitation is present. There is mild to moderate valvular aortic stenosis. Calculated aortic valve area is 1.1 cm2 with maximum pressure gradient of 38 mmHg and mean pressure gradient of 22 mmHg. There is no aortic valvular vegetation. MITRAL VALVE The mitral valve is normal in structure and function. There is no mitral valve stenosis. Mitral regurgitation is mild to moderate. MR RV 30 ML TRICUSPID VALVE The tricuspid valve is normal in structure and function. There is mild tricuspid regurgitation. Right ventricular systolic pressure is estimated at 30-40 mmHg. There is no tricuspid valve prolapse or vegetation. There is no tricuspid valve stenosis. PULMONIC VALVE The pulmonary valve is normal in structure and function. There is no pulmonic valvular regurgitation. There is no pulmonic valvular stenosis. GREAT VESSELS The aortic root is normal in size. The ascending aorta is normal in size. The pulmonary artery is normal. The IVC is normal in size and collapses >50% with inspiration. PERICARDIAL EFFUSION The pericardium appears normal. There is no pleural effusion. <Conclusion> The left ventricular function is normal. The left ventricular ejection fraction is within the normal range. No regional wall motion abnormalities noted. The left atrium is mildly dilated. There is mild to moderate valvular aortic stenosis. Calculated aortic valve area is 1.1 cm2 with maximum pressure gradient of 38 mmHg and mean pressure gradient of 22 mmHg. Mitral regurgitation is mild to moderate. MR RV 30 ML
--- NOTE | 2017-10-06 15:28 | CP.PCM.CON ---
History of Present Illness - History of Present Illness History of Present Illness: Palliative consult requested by Aamir ALMONTE for Code status discussion Patient is a 77 yo female admitted from home with sharp chest pain at rest with dizziness and near syncopy that lasted about for 5 hr. Patient called EMS and pain was relieved by ASA and Nitroglcerin. Patient has extensive cardiac Hx and in 2015 was treated by Doctor Evangelista for severe aortic stenosis and EF 60-65%. Upon this admission the CT angio showed new left BBB and patient underwent repeat cardiac cath today. PMH: PPM, GERD, triple bypass, breast ca, S/P left lympectomy and radiation Soc. Hx: , lives at home, has son and daughter, both involved in care Fam. Hx: Patient unable to provide, will discuss with her children Review of Systems - Review of Systems All systems: reviewed and no additional remarkable complaints except Review of Systems: Patient reports Left sided abdominal pain. 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 Past Patient History - Past Medical History & Family History Past Medical History?: Yes - Past Social History Smoking Status: Former Smoker Alcohol: None Drugs: Denies Home Situation {Lives}: With Family - CARDIAC Hx Cardia Arrhythmia: Yes Hx Hypercholesterolemia: Yes Hx Hypertension: Yes Hx Pacemaker: Yes - PULMONARY Hx Respiratory Disorders: Yes (SOB SOMETIMES) - NEUROLOGICAL Hx Neurological Disorder: Yes - HEENT Hx HEENT Problems: Yes Hx Cataracts: Yes (removed bilateral 2011) - RENAL Hx Chronic Kidney Disease: No - ENDOCRINE/METABOLIC Hx Hypothyroidism: Yes - HEMATOLOGICAL/ONCOLOGICAL Hx Blood Disorders: Yes Hx Cancer: Yes (LEFT BREAST-RADIATION TX. DONE) - INTEGUMENTARY Hx Dermatological Problems: Yes Other/Comment: CANCER LEFT BREAST-LUMPECTOMY DONE - MUSCULOSKELETAL/RHEUMATOLOGICAL Hx Arthritis: Yes (KNEE PAIN) - GASTROINTESTINAL Hx Gastrointestinal Disorders: No - GENITOURINARY/GYNECOLOGICAL Hx Genitourinary Disorders: No - PSYCHIATRIC Hx Anxiety: Yes Hx Depression: Yes Hx Substance Use: No - SURGICAL HISTORY Hx Coronary Artery Bypass Graft: Yes (jan 17 2013 TRIPLE) Hx Coronary Stent: Yes Hx Tonsillectomy: Yes - ANESTHESIA Hx Anesthesia: Yes Hx Anesthesia Reactions: No Hx Malignant Hyperthermia: No Meds Allergies/Adverse Reactions: Allergies Allergy/AdvReac Type Severity Reaction Status Date / Time No Known Allergies Allergy Verified 10/04/17 17:45 - Medications Medications: Current Medications Amlodipine Besylate (Norvasc) 10 mg PO DAILY [facility] Last Admin: 10/06/17 09:06 Dose: 10 mg Aspirin (Ecotrin) 81 mg PO DAILY [facility] Last Admin: 10/06/17 09:06 Dose: 81 mg Famotidine (Pepcid) 20 mg PO DAILY [facility] Last Admin: 10/06/17 09:06 Dose: 20 mg Heparin Sodium (Porcine) (Heparin) 5,000 units SC Q12 [facility] Last Admin: 10/06/17 09:20 Dose: 5,000 units Piperacillin Sod/Tazobactam Sod (Zosyn 2.25 Gm Iv Premix) 2.25 gm in 50 mls @ 100 mls/hr IVPB Q6 [facility] Last Admin: 10/06/17 12:00 Dose: Not Given Sodium Chloride (Sodium Chloride 0.9%) 500 mls @ 70 mls/hr IV .Q7H9M [facility] Insulin Human Regular (Novolin R) 0 unit SC ACHS [facility] PRN Reason: Protocol Last Admin: 10/06/17 11:58 Dose: Not Given Isosorbide Mononitrate (Imdur) 60 mg PO DAILY [facility] Levothyroxine Sodium (Synthroid) 50 mcg PO DAILY@0630 [facility] Last Admin: 10/06/17 05:45 Dose: Not Given Losartan Potassium (Cozaar) 100 mg PO DAILY [facility] Last Admin: 10/06/17 09:07 Dose: 100 mg Morphine Sulfate (Morphine) 1 mg IV Q4H PRN PRN Reason: Pain, moderate (4-7) Last Admin: 10/05/17 18:09 Dose: 1 mg Nebivolol (Bystolic) 10 mg PO DAILY [facility] Last Admin: 10/06/17 09:08 Dose: 10 mg Ondansetron HCl (Zofran Inj) 4 mg IVP Q6H PRN PRN Reason: Nausea/Vomiting Last Admin: 10/05/17 10:31 Dose: 4 mg Polyethylene Glycol (Miralax) 17 gm PO BID PRN PRN Reason: Constipation Rosuvastatin Calcium (Crestor) 5 mg PO HS [facility] Last Admin: 10/05/17 21:45 Dose: 5 mg Zolpidem Tartrate (Ambien) 5 mg PO HS PRN PRN Reason: Insomnia Last Admin: 10/04/17 23:27 Dose: 5 mg Physical Exam - Constitutional Appears: No Acute Distress - Head Exam Head Exam: ATRAUMATIC, NORMAL INSPECTION, NORMOCEPHALIC - Eye Exam Eye Exam: EOMI, Normal appearance, PERRL Pupil Exam: NORMAL ACCOMODATION, PERRL - ENT Exam ENT Exam: Mucous Membranes Moist, Normal Exam - Neck Exam Neck exam: Positive for: Normal Inspection - Respiratory Exam Respiratory Exam: Decreased Breath Sounds, NORMAL BREATHING PATTERN - Cardiovascular Exam Cardiovascular Exam: REGULAR RHYTHM - GI/Abdominal Exam GI & Abdominal Exam: Diminished Bowel Sounds, Guarding, Hypoactive Bowel Sounds - Rectal Exam Rectal Exam: Deferred - Exam Exam: NORMAL INSPECTION - Extremities Exam Extremities exam: Positive for: normal inspection - Back Exam Back exam: NORMAL INSPECTION - Neurological Exam Neurological exam: Alert, Altered - Psychiatric Exam Psychiatric exam: Flat Affect - Skin Skin Exam: Dry, Intact, Normal Color Results - Vital Signs Recent Vital Signs: Last Vital Signs Temp 97.9 F 10/06/17 15:17 Pulse 110 H 10/06/17 15:17 Resp 20 10/06/17 15:17 BP 116/79 10/06/17 15:17 Pulse Ox 97 10/06/17 07:26 - Labs Result Diagrams: 10/06/17 08:38 10/06/17 08:38 Labs: Laboratory Results - last 24 hr 10/05/17 10/05/17 10/05/17 16:11 16:49 20:00 WBC RBC Hgb Hct MCV MCH MCHC RDW Plt Count MPV Neut % (Auto) Lymph % (Auto) Dolores % (Auto) Eos % (Auto) Baso % (Auto) Neut # Lymph # Dolores # Eos # Baso # Neutrophils % (Manual) Band Neutrophils % Lymphocytes % (Manual) Monocytes % (Manual) Platelet Estimate RBC Morphology Sodium Potassium Chloride Carbon Dioxide Anion Gap BUN Creatinine Est GFR ( Amer) Est GFR (Non-Af Amer) POC Glucose (mg/dL) 218 H Random Glucose Lactic Acid 2.4 H Calcium Phosphorus Magnesium Total Bilirubin AST ALT Alkaline Phosphatase Total Protein Albumin Globulin Albumin/Globulin Ratio Amylase 87 Lipase 217 10/05/17 10/06/17 10/06/17 21:01 06:30 08:38 WBC 10.8 RBC 5.12 Hgb 15.0 Hct 44.7 MCV 87.4 MCH 29.2 MCHC 33.5 RDW 14.8 H Plt Count 250 MPV 9.8 Neut % (Auto) 74.0 Lymph % (Auto) 12.0 L Dolores % (Auto) 14.0 H Eos % (Auto) 0.0 Baso % (Auto) 0.0 Neut # 8.0 H Lymph # 1.3 Dolores # 1.5 H Eos # 0.0 Baso # 0.0 Neutrophils % (Manual) 55 Band Neutrophils % 13 H* Lymphocytes % (Manual) 14 L Monocytes % (Manual) 18 H Platelet Estimate Normal RBC Morphology Normal Sodium Potassium Chloride Carbon Dioxide Anion Gap BUN Creatinine Est GFR ( Amer) Est GFR (Non-Af Amer) POC Glucose (mg/dL) 199 H 180 H Random Glucose Lactic Acid Calcium Phosphorus Magnesium Total Bilirubin AST ALT Alkaline Phosphatase Total Protein Albumin Globulin Albumin/Globulin Ratio Amylase Lipase 10/06/17 10/06/17 08:38 08:42 WBC RBC Hgb Hct MCV MCH MCHC RDW Plt Count MPV Neut % (Auto) Lymph % (Auto) Dolores % (Auto) Eos % (Auto) Baso % (Auto) Neut # Lymph # Dolores # Eos # Baso # Neutrophils % (Manual) Band Neutrophils % Lymphocytes % (Manual) Monocytes % (Manual) Platelet Estimate RBC Morphology Sodium 135 Potassium 3.5 L Chloride 98 Carbon Dioxide 28 Anion Gap 13 BUN 22 H Creatinine 0.7 Est GFR ( Amer) > 60 Est GFR (Non-Af Amer) > 60 POC Glucose (mg/dL) Random Glucose 192 H Lactic Acid 1.8 Calcium 9.2 Phosphorus 2.9 Magnesium 1.6 Total Bilirubin 0.7 AST 30 ALT 25 Alkaline Phosphatase 126 Total Protein 7.6 Albumin 3.8 Globulin 3.7 Albumin/Globulin Ratio 1.0 Amylase Lipase Assessment & Plan - Assessment and Plan (Free Text) Assessment: Palliative consult Code status Full Code, there is no Advance directive on chart, PPS 40% I reviewed medical records, all diagnostic studies, examined and interviewed patient in the bed. I tried to meet with this patient X 2 since yesterday and each time she was out of her room for the test or procedure. Today I met with patient soon post her cardiac cath procedure. Patient is alert, looks " foggy" post cardiac solar lab technician. Affect very pleasant. patient intended to participate in discussion, but some answers were way off or patient had to think about it. She knew her children names. Breath sounds diminished, denies SOB/cough. Abdomen softly distended, condition guarded upon slight touch to LUQ. Patient tells me " I have a stomach tumor, its very painful". Morphine 1 mg IV PRN on board. Patient denied knowledge of having had breast CA. Patient reports constipation X 3 days. Bowel sounds distant. LEs with no pedal edema. Patient asked me for Ambien for sleep as she is used to it at home. BP 146/76, HR 113, O2 Sat 97 % RA. 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 * LUQ pain illicit by touch * Constipation * Insomnia Suggestion * Continue Morphine for pain * Promote safety and orient patient X 3 upon each interaction * Ambien 5 mg Q HS PRN insomnia * Colace and Miralax for constipation I will meet again with patient tomorrow for Goals of care and Code status discussion. I will involve the son Jaziel as well. Time spent for Advance Planing 30 min
[2017-10-06 17:21] LABS: HEMOGLOBIN 15.4 g/dL (11.0-16.0); MEAN CELL VOLUME 87.7 fL (81.0-99.0); MEAN CORPUSCULAR HEMOGLOBIN 28.6 pg (27.0-31.0); MEAN CORPUSCULAR HGB CONC 32.6 g/dL (33.0-37.0); RBC 5.39 Mil/uL (3.80-5.20); WHITE BLOOD COUNT 10.4 K/uL (4.8-10.8)
[2017-10-06 17:49] LABS: BLOOD UREA NITROGEN 22 mg/dL (7-17); CALCIUM 9.3 mg/dl (8.6-10.4); GFR AFRICAN-AMERICAN > 60; GFR NON-AFRICAN AMERICAN > 60
[2017-10-06] MEDS: Sodium Chloride 0.9% 1,000 ML IV SCH (19:17)
--- NOTE | 2017-10-06 20:19 | CP.PCM.PN ---
<Linda Rutledge - Last Filed: 10/06/17 20:20> Subjective - Date & Time of Evaluation Date of Evaluation: 10/06/17 Time of Evaluation: 07:00 - Subjective Subjective: Medicine Progress Note: Patient was seen and examined at bedside in the AM. No acute events overnight per nurse. Patient states she is thirsty and wants water but understands she cannot eat or drink as she is having a procedure today. Patient states her belly still hurts but has improved. She denies nausea, vomiting, chest pain, or shortness of breath. Objective - Vital Signs/Intake and Output Vital Signs (last 24 hours): Temp Pulse Resp BP Pulse Ox 97.9 F 110 H 20 116/79 94 L 10/06/17 15:17 10/06/17 15:17 10/06/17 15:17 10/06/17 15:17 10/06/17 15:15 - Medications Medications: Current Medications Amlodipine Besylate (Norvasc) 10 mg PO DAILY [facility] Last Admin: 10/06/17 09:06 Dose: 10 mg Aspirin (Ecotrin) 81 mg PO DAILY [facility] Last Admin: 10/06/17 09:06 Dose: 81 mg Famotidine (Pepcid) 20 mg PO DAILY [facility] Last Admin: 10/06/17 09:06 Dose: 20 mg Heparin Sodium (Porcine) (Heparin) 5,000 units SC Q12 [facility] Last Admin: 10/06/17 09:20 Dose: 5,000 units Piperacillin Sod/Tazobactam Sod (Zosyn 2.25 Gm Iv Premix) 2.25 gm in 50 mls @ 100 mls/hr IVPB Q6 [facility] Last Admin: 10/06/17 18:29 Dose: 100 mls/hr Sodium Chloride (Sodium Chloride 0.9%) 1,000 mls @ 70 mls/hr IV .[id number] [facility]S [facility] Last Admin: 10/06/17 19:17 Dose: 70 mls/hr Insulin Human Regular (Novolin R) 0 unit SC ACHS [facility] PRN Reason: Protocol Last Admin: 10/06/17 17:15 Dose: Not Given Isosorbide Mononitrate (Imdur) 60 mg PO DAILY [facility] Last Admin: 10/06/17 15:33 Dose: 60 mg Levothyroxine Sodium (Synthroid) 50 mcg PO DAILY@0630 [facility] Last Admin: 10/06/17 05:45 Dose: Not Given Losartan Potassium (Cozaar) 100 mg PO DAILY [facility] Last Admin: 10/06/17 09:07 Dose: 100 mg Morphine Sulfate (Morphine) 1 mg IV Q4H PRN PRN Reason: Pain, moderate (4-7) Last Admin: 10/05/17 18:09 Dose: 1 mg Nebivolol (Bystolic) 10 mg PO DAILY [facility] Last Admin: 10/06/17 09:08 Dose: 10 mg Ondansetron HCl (Zofran Inj) 4 mg IVP Q6H PRN PRN Reason: Nausea/Vomiting Last Admin: 10/06/17 18:13 Dose: 4 mg Polyethylene Glycol (Miralax) 17 gm PO BID PRN PRN Reason: Constipation Rosuvastatin Calcium (Crestor) 5 mg PO HS [facility] Last Admin: 10/05/17 21:45 Dose: 5 mg Zolpidem Tartrate (Ambien) 5 mg PO HS PRN PRN Reason: Insomnia Last Admin: 10/04/17 23:27 Dose: 5 mg - Labs Labs: 10/06/17 17:16 10/06/17 17:16 PT 12.2 SECONDS (9.7-12.2) 10/04/17 18:30 INR 1.1 10/04/17 18:30 APTT 29 SECONDS (21-34) 10/04/17 18:30 - Constitutional Appears: No Acute Distress - Head Exam Head Exam: ATRAUMATIC, NORMAL INSPECTION - Eye Exam Eye Exam: EOMI, Normal appearance - ENT Exam ENT Exam: Mucous Membranes Moist - Respiratory Exam Respiratory Exam: Clear to Ausculation Bilateral, NORMAL BREATHING PATTERN - Cardiovascular Exam Cardiovascular Exam: REGULAR RHYTHM, +S1, +S2 - GI/Abdominal Exam GI & Abdominal Exam: Soft, Tenderness (epigastric tenderness ), Normal Bowel Sounds - Extremities Exam Extremities Exam: Normal Inspection - Neurological Exam Neurological Exam: Alert, Awake, Oriented x3 - Psychiatric Exam Psychiatric exam: Anxious - Skin Skin Exam: Normal Color, Warm Assessment and Plan - Assessment and Plan (Free Text) Assessment: 7 yo Female with PMHx of HTN, HLD, DM, CAD, CABG, Hx of Breast Cancer ( s/p lumpectomy), and Hypothyroidism presents to the ED for chest pain. 1.) Chest Pain secondary to LBBB - Cardiology Consult: Dr. Childs --> help appreciated * s/p cardiac catheterization for 10/06/17 at 10am - EKGx3: LBBB - JOANNA x3 negative - Lipid panel: Cholesterol 159; LDL 91; HDL 41; Triglycerides 94 - TSH 2.92; Free T4 1.49 - Imaging * CT Chest w/ IV: 1. No evidence of thoracic aortic aneurysm, dissection, or rupture. 2. No acute pulmonary embolism. 3. Hepatic cysts * Chest X-ray: No interval acute cardiopulmonary disease appreciated * ECHO (10/04/17): EF 62%; * Last ECHO 2015 LVEF 63% - Medications * ASA 81mg PO daily 2.) CAD s/p CABG (2014) - Had an abnormal stress test 09/2016 3.) Abdominal Pain - GI Consult: Dr. Boland --> help appreciated - Chronic multiple liver cysts with largest being 16 cm, was seen on 2013 CT imaging however the largest measured 13x12 cm at the time. - Abdominal CT with IV contrast - patient refused studies at this time - Amylase 87, lipase 217 - Lactate: 1.8 - Morphine 1mg q6h PRN for pain - Zofran PRN - Miralax - f/u Hep panel 4.) Bands - f/u blood culture, urine culture - Zosyn q6h - Procal 1.19 5.) Hyperkalemia - resolved 5.6 on admission Once dose Kayexalate given 5.) Elevated T. Bili - 1.4 -Continue to Monitor 6.) Transaminitis - Continue to Monitor 7.) History of HTN - Resumed home medications: Norvasc 5mg PO daily, Cozaar 100mg PO daily 8.) History of HLD - Continue with home medication (lipitor not on formulary): Crestor 5mg PO QHS 9.) History of DM - Accuchecks - HGA1C: 7.1 (09/2017) - Carb Consistent Diet - Held home medication: Metformin - ISS- moderate 10.) History of Hypothyroidism - TSH 2.92; Free T4 1.49 - Continue with home medication: Synthroid 50mcg PO daily 11.) History Breast Cancer 12.) Prophylactic Measures - GI PPX: Protonix 40mg PO daily - DVT PPX: SCDs, Heparin Q12 - Palliative Care Consult --> help appreciated Case discussed with Dr. Genny Rutledge PGY-1 <Dianne Royal V - Last Filed: 10/13/17 13:55> Objective - Vital Signs/Intake and Output Vital Signs (last 24 hours): Temp Pulse Resp BP Pulse Ox 97.3 F L 92 H 11 L 111/73 94 L 10/13/17 12:00 10/13/17 13:01 10/13/17 13:01 10/13/17 13:01 10/13/17 13:01 Intake and Output: 10/13/17 10/13/17 06:59 18:59 Intake Total 1159.9 920.0 Output Total 1200 1175 Balance -40.1 -255.0 - Medications Medications: Current Medications Acetaminophen (Tylenol 325mg Tab) 650 mg PO Q6 PRN PRN Reason: Fever >100.4 F Amlodipine Besylate (Norvasc) 10 mg PO DAILY [facility] Last Admin: 10/13/17 09:43 Dose: 10 mg Aspirin (Aspirin Chewable) 81 mg PO DAILY [facility] Last Admin: 10/13/17 09:43 Dose: 81 mg Diltiazem HCl (Cardizem) 30 mg PO Q6 [facility] Furosemide (Lasix) 40 mg IVP Q12 [facility] Last Admin: 10/13/17 09:44 Dose: 40 mg Metronidazole (Flagyl) 500 mg in 100 mls @ 100 mls/hr IVPB Q8 [facility] Last Admin: 10/13/17 13:02 Dose: 100 mls/hr Meropenem 1 gm/ Sodium (Chloride) 100 mls @ 100 mls/hr IVPB Q8H [facility] Last Admin: 10/13/17 13:01 Dose: 100 mls/hr Diltiazem HCl 125 mg/ Dextrose 125 mls @ 5 mls/hr IV .Q24H [facility]; 5 MG/HR PRN Reason: Protocol Last Admin: 10/13/17 09:48 Dose: 10 mg/hr, 10 mls/hr Potassium Chloride 15 meq/Potassium Phosphate 15 mmole/Magnesium Sulfate 10 meq/ Calcium Gluconate 4.5 meq/Insulin Human Regular 10 unit/Heparin Sodium (Porcine ) 1, 000 units/ Chromium/Copper/Manganese/Zinc 1 ml/Multivitamins/Vitamin C 10 ml/Amino Acids 1,036.7404 mls @ 42 mls/hr IV .Q24H ONE Stop: 10/13/17 17:59 Last Admin: 10/12/17 17:06 Dose: 42 mls/hr Potassium Phosphate 15 mmole/ (Dextrose) 255 mls @ 50 mls/hr IV .Q5H6M COUNTS [facility]CLUDE 234 BEDS AT [facility] Stop: 10/13/17 16:29 Last Admin: 10/13/17 12:05 Dose: 50 mls/hr Insulin Human Regular (Novolin R) 0 unit SC Q6H [facility] PRN Reason: Protocol Last Admin: 10/13/17 12:06 Dose: 2 unit Levothyroxine Sodium (Synthroid) 50 mcg PO DAILY@0630 [facility]S [facility]CLUDE 234 BEDS AT [facility] Last Admin: 10/13/17 05:55 Dose: 50 mcg Losartan Potassium (Cozaar) 100 mg PO DAILY [facility]CLUDE 234 BEDS [facility] Last Admin: 10/13/17 09:43 Dose: 100 mg Metoprolol Tartrate (Lopressor) 5 mg IVP Q6H [facility]CLUDE 234 BEDS AT [facility] Last Admin: 10/13/17 12:10 Dose: 5 mg Ondansetron HCl (Zofran Inj) 4 mg IVP Q6H PRN PRN Reason: Nausea/Vomiting Last Admin: 10/10/17 21:10 Dose: 4 mg Pantoprazole Sodium (Protonix Inj) 40 mg IVP DAILY [facility]CLUDE 234 BEDS AT [facility] Last Admin: 10/13/17 09:44 Dose: 40 mg Polyethylene Glycol (Miralax) 17 gm PO BID PRN PRN Reason: Constipation Last Admin: 10/07/17 10:14 Dose: 17 gm Potassium Chloride (Potassium Chloride Oral Soln) 40 meq PO Q6H COUNTS [facility]CLUDE 234 BEDS AT [facility] Stop: 10/13/17 22:46 Last Admin: 10/13/17 10:47 Dose: 40 meq Rosuvastatin Calcium (Crestor) 5 mg NG HS COUNTS INCLUDE 234 BEDS AT [facility] Last Admin: 10/12/17 21:21 Dose: 5 mg Saccharomyces Boulardii (Florastor) 250 mg NG BID COUNTS INCLUDE 234 BEDS AT [facility] Last Admin: 10/13/17 09:44 Dose: 250 mg Vitamin A (Vitamin A & D Oint Ud Foilpak) 0.5 ea TOP Q4 COUNTS INCLUDE 234 BEDS AT [facility] Last Admin: 10/13/17 12:10 Dose: 0.5 ea - Labs Labs: 10/13/17 06:29 10/13/17 06:28 PT 15.4 SECONDS (9.7-12.2) H 10/13/17 06:29 INR 1.4 10/13/17 06:29 APTT 71 SECONDS (21-34) H 10/13/17 06:29 Attending/Attestation - Attestation I have personally seen and examined this patient.: Yes I have fully participated in the care of the patient.: Yes I have reviewed all pertinent clinical information, including history, physical exam and plan: Yes Notes (Text): This is a late computer entry for 10/06/18. Patient seen, examined and case discussed with day-time resident. Patient went to cardiac catherization this morning with Dr. Childs. Awaiting results from cardiac cath. Cardiology recommending GI Consult given hepatic cysts noted on CT dissections study. GI (Dr. Sal/Dr. Boland group) consulted. Discussed with nurse Bailey, patient is bandemic. Patient is ordered for blood cultures, UA and urine culture, as well procalcitonin. Patient ordered for Zosyn IV as empiric antibiotic therapy. Lactate acid improved from 2.5 to 1.8. Assessment/Plan 1.) Chest Pain secondary to LBBB * Cardiology Consult: Dr. Childs --> help appreciated * Per resident note patient is scheduled for cardiac catheterization today * Patient NPO after midnight * EKGx3: LBBB, which is change from prior EKG * JOANNA x3 negative * Had an abnormal stress test 09/2016 * Lipid panel: Cholesterol 159; LDL 91; HDL 41; Triglycerides 94 * TSH 2.92; Free T4 1.49 * Imaging * CT Dissection Protocol w/ IV: 1. No evidence of thoracic aortic aneurysm, dissection, or rupture. 2. No acute pulmonary embolism. 3. Hepatic cysts * Chest X-ray: No interval acute cardiopulmonary disease appreciated * f/u ECHO official report * Last ECHO 2016 LVEF 63% * Medications * ASA 81mg PO daily * Norvasc 5mg PO daily * Cozaar 100mg PO daily * Crestor 5mg POqHS (Lipitor not available on hospital formulary) 2.) Hyperkalemia - resolved 5.6 on admission Once dose Kayexalate given 3.) Abdominal Pain * CT dissection protocol-->findings available in the EMR * Abdominal CT with IV contrast - patient refused studies at this time * Amylase 87, lipase 217 * Lactate acid - patient refused labs during the day 10/07; in the evening with me, patient will allow for the lactate acid - Improved from 2.5 to 1.8 * Morphine 1mg q6h PRN for pain * Zofran PRN * Colace 100mg PO BID PRN 4.) Hepatic cyst * noted on CT dissection protocol study * GI (Dr. Boland/Dr Sal) on consult-->Help appreciated * Hepatitis panel ordered 5.) Transaminitis * Continue to Monitor 6.) History of HTN * Resumed home medications: Norvasc 5mg PO daily, Cozaar 100mg PO daily 7.) History of HLD * Continue with home medication (lipitor not on formulary): Crestor 5mg PO QHS 8.) History of DM * Accuchecks AC and HS * HGA1C: 7.1 (09/2017) * Carb Consistent Diet * Held home medication: Metformin * ISS- moderate * Cozaar 100mg PO daily * Crestor 5mg POqHS (Lipitor not available on hospital formulary) 9.) History of Hypothyroidism * TSH 2.92; Free T4 1.49 * Continue with home medication: Synthroid 50mcg PO daily 10.) History Breast Cancer 11.) Prophylactic Measures * GI PPX: Protonix 40mg PO daily * DVT PPX: SCDs, Heparin Q12 * Palliative Care Consult --> help appreciated for code status
[2017-10-06] MEDS ORDERED: Simethicone 80 mg Chewtab PO STA (20:25)
[2017-10-07 03:35] LABS: SQUAMOUS EPITHIAL 10 /hpf (0-5); URINE BACTERIA RARE (<OCC); URINE BILIRUBIN NEGATIVE (NEGATIVE); URINE BLOOD 1+ (NEGATIVE); URINE CLARITY Clear (Clear); URINE COLOR Yellow (YELLOW); URINE GLUCOSE (UA) 1+ mg/dL (Normal); URINE LEUKOCYTE ESTERASE NEG Leu/uL (Negative); URINE NITRATE NEGATIVE (NEGATIVE); URINE PROTEIN 1+ mg/dL (NEGATIVE); URINE UROBILINOGEN NORMAL mg/dL (0.2-1.0)
--- NOTE | 2017-10-07 05:48 | CP.PCM.PN ---
Subjective - Date & Time of Evaluation Date of Evaluation: 10/07/17 Time of Evaluation: 05:47 - Subjective Subjective: c/o epigastric discomfort Objective - Vital Signs/Intake and Output Vital Signs (last 24 hours): Temp Pulse Resp BP Pulse Ox 98.8 F 103 H 20 116/61 95 10/07/17 04:30 10/07/17 04:30 10/07/17 04:30 10/07/17 04:30 10/07/17 04:30 Intake and Output: 10/06/17 10/07/17 18:59 06:59 Intake Total 800 Balance 800 - Medications Medications: Current Medications Amlodipine Besylate (Norvasc) 10 mg PO DAILY [facility] Last Admin: 10/06/17 09:06 Dose: 10 mg Aspirin (Ecotrin) 81 mg PO DAILY [facility] Last Admin: 10/06/17 09:06 Dose: 81 mg Famotidine (Pepcid) 20 mg PO DAILY [facility] Last Admin: 10/06/17 09:06 Dose: 20 mg Heparin Sodium (Porcine) (Heparin) 5,000 units SC Q12 [facility] Last Admin: 10/06/17 09:20 Dose: 5,000 units Sodium Chloride (Sodium Chloride 0.9%) 1,000 mls @ 70 mls/hr IV .[id number] [facility] Last Admin: 10/06/17 19:17 Dose: 70 mls/hr Piperacillin Sod/Tazobactam Sod (Zosyn 2.25 Gm Iv Premix) 2.25 gm in 50 mls @ 100 mls/hr IVPB Q8 [facility] Insulin Human Regular (Novolin R) 0 unit SC ACHS [facility] PRN Reason: Protocol Last Admin: 10/06/17 21:45 Dose: Not Given Isosorbide Mononitrate (Imdur) 60 mg PO DAILY [facility] Last Admin: 10/06/17 15:33 Dose: 60 mg Levothyroxine Sodium (Synthroid) 50 mcg PO DAILY@0630 [facility] Last Admin: 10/06/17 05:45 Dose: Not Given Losartan Potassium (Cozaar) 100 mg PO DAILY [facility] Last Admin: 10/06/17 09:07 Dose: 100 mg Morphine Sulfate (Morphine) 1 mg IV Q4H PRN PRN Reason: Pain, moderate (4-7) Last Admin: 10/05/17 18:09 Dose: 1 mg Nebivolol (Bystolic) 10 mg PO DAILY [facility] Last Admin: 10/06/17 09:08 Dose: 10 mg Ondansetron HCl (Zofran Inj) 4 mg IVP Q6H PRN PRN Reason: Nausea/Vomiting Last Admin: 10/06/17 18:13 Dose: 4 mg Polyethylene Glycol (Miralax) 17 gm PO BID PRN PRN Reason: Constipation Rosuvastatin Calcium (Crestor) 5 mg PO HS [facility] Last Admin: 10/06/17 21:44 Dose: 5 mg Zolpidem Tartrate (Ambien) 5 mg PO HS PRN PRN Reason: Insomnia Last Admin: 10/04/17 23:27 Dose: 5 mg - Labs Labs: 10/06/17 17:16 10/06/17 17:16 PT 12.2 SECONDS (9.7-12.2) 10/04/17 18:30 INR 1.1 10/04/17 18:30 APTT 29 SECONDS (21-34) 10/04/17 18:30 - Constitutional Appears: Well - Head Exam Head Exam: ATRAUMATIC, NORMAL INSPECTION, NORMOCEPHALIC - Eye Exam Eye Exam: EOMI, Normal appearance, PERRL Pupil Exam: NORMAL ACCOMODATION, PERRL - ENT Exam ENT Exam: Mucous Membranes Moist, Normal Exam - Neck Exam Neck Exam: Full ROM, Normal Inspection. absent: Lymphadenopathy - Respiratory Exam Respiratory Exam: Clear to Ausculation Bilateral, NORMAL BREATHING PATTERN - Cardiovascular Exam Cardiovascular Exam: REGULAR RHYTHM, +S1, +S2. absent: Murmur - GI/Abdominal Exam GI & Abdominal Exam: Soft, Normal Bowel Sounds. absent: Tenderness - Extremities Exam Extremities Exam: Full ROM, Normal Capillary Refill, Normal Inspection. absent : Joint Swelling, Pedal Edema - Back Exam Back Exam: NORMAL INSPECTION - Neurological Exam Neurological Exam: Alert, Awake, CN II-XII Intact, Normal Gait, Oriented x3 - Psychiatric Exam Psychiatric exam: Normal Affect, Normal Mood - Skin Skin Exam: Dry, Intact, Normal Color, Warm Assessment and Plan (1) Chest discomfort Status: Acute (2) Chest pain Status: Acute (3) Hypertension Status: Acute
[2017-10-07] MEDS: Levothyroxine 50 MCG TAB PO SCH (06:11)
[2017-10-07] MEDS: Piperacill/Tazo 2.25gm in Dex 2.25 GM/50 ML BAG IVPB SCH ×2 (06:12→14:09)
[2017-10-07 07:07] LABS: BASO % 0.3 % (0.0-2.0); LYMPH # 1.9 K/uL (1.0-4.3); LYMPH % 14.3 % (20.0-40.0); MEAN CELL VOLUME 86.5 fL (81.0-99.0); MEAN CORPUSCULAR HEMOGLOBIN 28.7 pg (27.0-31.0); MEAN CORPUSCULAR HGB CONC 33.2 g/dL (33.0-37.0); MEAN PLATELET VOLUME 9.7 fL (7.2-11.7); MONO % 23.3 % (0.0-10.0); NEUT # 8.1 K/uL (1.8-7.0); NEUT % 62.1 % (50.0-75.0); PLATELET COUNT 260 K/uL (130-400); RBC 4.86 Mil/uL (3.80-5.20); RED CELL DISTRIBUTION WIDTH 14.9 % (11.5-14.5)
--- NOTE | 2017-10-07 07:15 | CP.PCM.PN ---
<Linda Rutledge - Last Filed: 10/07/17 19:44> Subjective - Date & Time of Evaluation Date of Evaluation: 10/07/17 Time of Evaluation: 07:00 - Subjective Subjective: Medicine Progress Note: Patient was seen and examined in the AM. Per nurse no acute events overnight. Patient denies chest pain, shortness of breath, fever, nausea or vomiting. Objective - Vital Signs/Intake and Output Vital Signs (last 24 hours): Temp Pulse Resp BP Pulse Ox 98.8 F 103 H 20 116/61 95 10/07/17 04:30 10/07/17 04:30 10/07/17 04:30 10/07/17 04:30 10/07/17 04:30 Intake and Output: 10/07/17 10/07/17 06:59 18:59 Intake Total 1615 Balance 1615 - Medications Medications: Current Medications Amlodipine Besylate (Norvasc) 10 mg PO DAILY [facility] Last Admin: 10/06/17 09:06 Dose: 10 mg Aspirin (Ecotrin) 81 mg PO DAILY [facility] Last Admin: 10/06/17 09:06 Dose: 81 mg Famotidine (Pepcid) 20 mg PO DAILY [facility] Last Admin: 10/06/17 09:06 Dose: 20 mg Heparin Sodium (Porcine) (Heparin) 5,000 units SC Q12 [facility] Last Admin: 10/06/17 09:20 Dose: 5,000 units Sodium Chloride (Sodium Chloride 0.9%) 1,000 mls @ 70 mls/hr IV .[id number] [facility] Last Admin: 10/06/17 19:17 Dose: 70 mls/hr Piperacillin Sod/Tazobactam Sod (Zosyn 2.25 Gm Iv Premix) 2.25 gm in 50 mls @ 100 mls/hr IVPB Q8 [facility] Last Admin: 10/07/17 06:12 Dose: 100 mls/hr Insulin Human Regular (Novolin R) 0 unit SC ACHS [facility] PRN Reason: Protocol Last Admin: 10/06/17 21:45 Dose: Not Given Isosorbide Mononitrate (Imdur) 60 mg PO DAILY [facility] Last Admin: 10/06/17 15:33 Dose: 60 mg Levothyroxine Sodium (Synthroid) 50 mcg PO DAILY@0630 [facility] Last Admin: 10/07/17 06:11 Dose: 50 mcg Losartan Potassium (Cozaar) 100 mg PO DAILY [facility] Last Admin: 10/06/17 09:07 Dose: 100 mg Morphine Sulfate (Morphine) 1 mg IV Q4H PRN PRN Reason: Pain, moderate (4-7) Last Admin: 10/05/17 18:09 Dose: 1 mg Nebivolol (Bystolic) 10 mg PO DAILY [facility] Last Admin: 10/06/17 09:08 Dose: 10 mg Ondansetron HCl (Zofran Inj) 4 mg IVP Q6H PRN PRN Reason: Nausea/Vomiting Last Admin: 10/06/17 18:13 Dose: 4 mg Polyethylene Glycol (Miralax) 17 gm PO BID PRN PRN Reason: Constipation Rosuvastatin Calcium (Crestor) 5 mg PO HS [facility] Last Admin: 10/06/17 21:44 Dose: 5 mg Zolpidem Tartrate (Ambien) 5 mg PO HS PRN PRN Reason: Insomnia Last Admin: 10/04/17 23:27 Dose: 5 mg - Labs Labs: 10/06/17 17:16 10/06/17 17:16 PT 12.2 SECONDS (9.7-12.2) 10/04/17 18:30 INR 1.1 10/04/17 18:30 APTT 29 SECONDS (21-34) 10/04/17 18:30 - Constitutional Appears: In Acute Distress - Head Exam Head Exam: ATRAUMATIC, NORMAL INSPECTION - Eye Exam Eye Exam: EOMI, Normal appearance - ENT Exam ENT Exam: Mucous Membranes Moist - Respiratory Exam Respiratory Exam: Clear to Ausculation Bilateral, NORMAL BREATHING PATTERN - Cardiovascular Exam Cardiovascular Exam: REGULAR RHYTHM, +S1, +S2 - GI/Abdominal Exam GI & Abdominal Exam: Soft, Normal Bowel Sounds. absent: Tenderness - Extremities Exam Extremities Exam: Normal Inspection - Neurological Exam Neurological Exam: Alert, Awake, Oriented x3 - Psychiatric Exam Psychiatric exam: Normal Affect, Normal Mood - Skin Skin Exam: Normal Color, Warm Assessment and Plan - Assessment and Plan (Free Text) Assessment: 7 yo Female with PMHx of HTN, HLD, DM, CAD, CABG, Hx of Breast Cancer ( s/p lumpectomy), and Hypothyroidism presents to the ED for chest pain. Later in the afternoon patient complained of abdominal pain. 1.) Chest Pain secondary to LBBB - Cardiology Consult: Dr. Childs --> help appreciated * s/p cardiac catheterization for 10/06/17 at 10am - EKGx3: LBBB - JOANNA x3 negative - Lipid panel: Cholesterol 159; LDL 91; HDL 41; Triglycerides 94 - TSH 2.92; Free T4 1.49 - Imaging * CT Chest w/ IV: 1. No evidence of thoracic aortic aneurysm, dissection, or rupture. 2. No acute pulmonary embolism. 3. Hepatic cysts * Chest X-ray: No interval acute cardiopulmonary disease appreciated * ECHO (10/04/17): EF 62%; * Last ECHO 2016 LVEF 63% - Medications * ASA 81mg PO daily 2.) CAD s/p CABG (2014) - Had an abnormal stress test 09/2016 3.) Abdominal Pain - GI Consult: Dr. Boland --> help appreciated - Chronic multiple liver cysts with largest being 16 cm, was seen on 2013 CT imaging however the largest measured 13x12 cm at the time. - Abdominal CT with IV contrast - patient refused studies at this time - Amylase 87, lipase 217 - Lactate: 1.8 - Morphine 1mg q6h PRN for pain - Enema - Stool Occult blood + - Hep panel: Negative - Surgery Consult: Dr. Hinton --> help appreciated - f/u CT abdomen/pelvis with contrast - NPO 4.) Bands - blood culture - negative - preliminary - f/u urine culture - Zosyn q6h - Procal 1.19 5.) Hyperkalemia - resolved 5.6 on admission Once dose Kayexalate given 5.) Elevated T. Bili - 1.4 -Continue to Monitor 6.) Transaminitis - Continue to Monitor 7.) History of HTN - Resumed home medications: Norvasc 5mg PO daily, Cozaar 100mg PO daily 8.) History of HLD - Continue with home medication (lipitor not on formulary): Crestor 5mg PO QHS 9.) History of DM - Accuchecks - HGA1C: 7.1 (09/2017) - Carb Consistent Diet - Held home medication: Metformin - ISS- moderate 10.) History of Hypothyroidism - TSH 2.92; Free T4 1.49 - Continue with home medication: Synthroid 50mcg PO daily 11.) History Breast Cancer 12.) Prophylactic Measures - GI PPX: Protonix 40mg PO daily - DVT PPX: SCDs, Heparin Q12 - Palliative Care Consult --> help appreciated Case discussed with Dr. Genny Rutledge PGY-1 <Dianne Royal V - Last Filed: 10/07/17 22:16> Objective - Vital Signs/Intake and Output Vital Signs (last 24 hours): Temp Pulse Resp BP Pulse Ox 98.3 F 93 H 20 144/75 95 10/07/17 15:13 10/07/17 15:13 10/07/17 15:13 10/07/17 15:13 10/07/17 15:13 Intake and Output: 10/07/17 10/08/17 18:59 06:59 Intake Total 1055 Balance 1055 - Medications Medications: Current Medications Amlodipine Besylate (Norvasc) 10 mg PO DAILY [facility] Last Admin: 10/07/17 10:14 Dose: 10 mg Aspirin (Ecotrin) 81 mg PO DAILY [facility] Last Admin: 10/07/17 10:13 Dose: 81 mg Famotidine (Pepcid) 20 mg PO DAILY [facility] Last Admin: 10/07/17 10:13 Dose: 20 mg Heparin Sodium (Porcine) (Heparin) 5,000 units SC Q12 [facility] Last Admin: 10/06/17 09:20 Dose: 5,000 units Sodium Chloride (Sodium Chloride 0.9%) 1,000 mls @ 150 mls/hr IV .[id number] [facility] Meropenem 1 gm/ Sodium (Chloride) 50 mls @ 100 mls/hr IVPB Q8H [facility] Metronidazole (Flagyl) 500 mg in 100 mls @ 100 mls/hr IVPB Q8 [facility] Insulin Human Regular (Novolin R) 0 unit SC ACHS [facility] PRN Reason: Protocol Last Admin: 10/07/17 17:22 Dose: Not Given Isosorbide Mononitrate (Imdur) 60 mg PO DAILY [facility] Last Admin: 10/07/17 10:14 Dose: 60 mg Levothyroxine Sodium (Synthroid) 50 mcg PO DAILY@0630 [facility] Last Admin: 10/07/17 06:11 Dose: 50 mcg Losartan Potassium (Cozaar) 100 mg PO DAILY [facility] Last Admin: 10/07/17 10:14 Dose: 100 mg Morphine Sulfate (Morphine) 1 mg IV Q4H PRN PRN Reason: Pain, moderate (4-7) Last Admin: 10/05/17 18:09 Dose: 1 mg Nebivolol (Bystolic) 10 mg PO DAILY [facility] Last Admin: 10/07/17 10:13 Dose: 10 mg Ondansetron HCl (Zofran Inj) 4 mg IVP Q6H PRN PRN Reason: Nausea/Vomiting Last Admin: 10/07/17 20:20 Dose: 4 mg Polyethylene Glycol (Miralax) 17 gm PO BID PRN PRN Reason: Constipation Last Admin: 10/07/17 10:14 Dose: 17 gm Rosuvastatin Calcium (Crestor) 5 mg PO HS [facility] Last Admin: 10/06/17 21:44 Dose: 5 mg Zolpidem Tartrate (Ambien) 5 mg PO HS PRN PRN Reason: Insomnia Last Admin: 10/04/17 23:27 Dose: 5 mg - Labs Labs: 10/07/17 06:45 10/07/17 06:45 PT 12.2 SECONDS (9.7-12.2) 10/04/17 18:30 INR 1.1 10/04/17 18:30 APTT 29 SECONDS (21-34) 10/04/17 18:30 Attending/Attestation - Attestation I have personally seen and examined this patient.: Yes I have fully participated in the care of the patient.: Yes I have reviewed all pertinent clinical information, including history, physical exam and plan: Yes Notes (Text): Patient seen, examined and case discussed with day-time resident. Patient seen multiple times during the time. Patient seen this morning at lunch time. Patient denies chest pain, denies abdominal pain, she was given enema before, wherein she appeared to have melena colored stool when I discussed with the nurse. Patient were collected for stool studies this morning. Aspirin and Heparin dvt held given melena. Case discussed with Dr. Childs this afternoon, patient has RCA about 50% occlusion, will need intervention in the future but not immediate at this time. Dr. Childs is out of town, Dr. Evangelista is covering. Resident has spoke with GI team, recommended for bowel regimen for constipation , and asymptomatic for liver cysts; have signed off this afternoon. Patient seen again this afternoon with the infectious disease specialist, Dr. Lawson. Patient initially refusing CT Abdomen/Pelvis PO contrast. Her son present at bedside, I explained to given this abdominal pain we need the CT scan because she appears more distended compared to her exam from lunch time. She is willing to take the contrast for this new CT scan. Patient is on IV antibiotic. Patient seen again this evening, and I have spoken with her elder son. He is reporting his mother is saying things she normally does not say, like she is and she is giving to aliens. I explained to her given her abdominal pain in the LLQ, where are concerned for things such as diverticulitis and they could lead to more sequlela including abscess and possible perforation. I have explained pending the CT scan with the PO contrast it will allow to see the abdomen. Patient has completed PO contrast following this conversation. I have spoken with IGNACIA Wright her nurse to contact radiology to make this CT scan a stat. I have also placed for general surgery consult, Dr Hinton asset protection agent to assess patient's abdomen in light of possible diverticulitis. I advised son to not take his mother out bed and she cannot eat. Night time resident endorsed to follow-up CT scan tonight.
--- NOTE | 2017-10-07 07:33 | RAD ---
HISTORY: bandemia COMPARISON: Portable chest 10/04/2017. FINDINGS: LUNGS: Inspiratory volume appears diminished. Linear atelectasis identified at the inferior left lung zone laterally. Borderline patchy density appears developing at the left base though this may reflect atelectasis given limited inspiration. Clinically correlate for potential pneumonia. No right-sided infiltrate. Calcified granuloma is again seen at the right lung inferiorly. Post CABG changes again seen as well as prior cardiac pacemaker. PLEURA: No significant pleural effusion identified, no pneumothorax apparent. CARDIOVASCULAR: Normal. OSSEOUS STRUCTURES: No significant abnormalities. VISUALIZED UPPER ABDOMEN: Normal. OTHER FINDINGS: None. IMPRESSION: Borderline patchy atelectasis or infiltrate developing in the left base. Linear atelectasis is also noted at the left base. Diminished inspiratory volume.
[2017-10-07 07:34] LABS: ALBUMIN 3.5 g/dL (3.5-5.0); CALCIUM 9.1 mg/dl (8.6-10.4); MAGNESIUM 1.7 mg/dL (1.6-2.3)
[2017-10-07] MEDS: (Novolin R) Insulin Human Regular 100 units/ml vial SC SCH ×4 (07:57→22:44)
[2017-10-07] MEDS: POLYETHYLENE GLYCOL 3350 17 GM/Dose PACKET PO PRN ×2 (07:58→10:14)
[2017-10-07 09:06] LABS: HEPATITIS B SURFACE AG NEGATIVE (NEGATIVE)
[2017-10-07 09:12] LABS: HEPATITIS A IGM NEGATIVE (NEGATIVE); HEPATITIS B CORE AB Negative (NEGATIVE)
[2017-10-07 09:24] LABS: HEPATITIS C ANTIBODY Negative (NEGATIVE)
[2017-10-07 09:34] LABS: ANISOCYTOSIS SLIGHT; BANDS 12 % (0-2); HYPOCHROMIC SLIGHT; LYMPHOCYTE 13 % (20-40); MONOCYTE 24 % (0-10); NEUTROPHIL 51 % (50-75); PLATELET ESTIMATE NORMAL (NORMAL); POLYCHROMIC SLIGHT; TOTAL CELLS COUNTED 100
[2017-10-07 09:35] LABS: LARGE PLATELETS PRESENT; TOXIC GRANULATION PRESENT
[2017-10-07] MEDS: Sodium Chloride 0.9% 1,000 ML IV SCH ×2 (10:14→13:03)
--- NOTE | 2017-10-07 15:50 | CP.PCM.CON ---
History of Present Illness - History of Present Illness History of Present Illness: dictated Past Patient History - Past Medical History & Family History Past Medical History?: Yes - Past Social History Smoking Status: Former Smoker Alcohol: None Drugs: Denies Home Situation {Lives}: With Family - CARDIAC Hx Cardia Arrhythmia: Yes Hx Hypercholesterolemia: Yes Hx Hypertension: Yes Hx Pacemaker: Yes - PULMONARY Hx Respiratory Disorders: Yes (SOB SOMETIMES) - NEUROLOGICAL Hx Neurological Disorder: Yes - HEENT Hx HEENT Problems: Yes Hx Cataracts: Yes (removed bilateral 2011) - RENAL Hx Chronic Kidney Disease: No - ENDOCRINE/METABOLIC Hx Hypothyroidism: Yes - HEMATOLOGICAL/ONCOLOGICAL Hx Blood Disorders: Yes Hx Cancer: Yes (LEFT BREAST-RADIATION TX. DONE) - INTEGUMENTARY Hx Dermatological Problems: Yes Other/Comment: CANCER LEFT BREAST-LUMPECTOMY DONE - MUSCULOSKELETAL/RHEUMATOLOGICAL Hx Arthritis: Yes (KNEE PAIN) - GASTROINTESTINAL Hx Gastrointestinal Disorders: No - GENITOURINARY/GYNECOLOGICAL Hx Genitourinary Disorders: No - PSYCHIATRIC Hx Anxiety: Yes Hx Depression: Yes Hx Substance Use: No - SURGICAL HISTORY Hx Coronary Artery Bypass Graft: Yes (jan 17 2013 TRIPLE) Hx Coronary Stent: Yes Hx Tonsillectomy: Yes - ANESTHESIA Hx Anesthesia: Yes Hx Anesthesia Reactions: No Hx Malignant Hyperthermia: No Meds Allergies/Adverse Reactions: Allergies Allergy/AdvReac Type Severity Reaction Status Date / Time No Known Allergies Allergy Verified 10/04/17 17:45 - Medications Medications: Current Medications Amlodipine Besylate (Norvasc) 10 mg PO DAILY [facility] Last Admin: 10/07/17 10:14 Dose: 10 mg Aspirin (Ecotrin) 81 mg PO DAILY [facility] Last Admin: 10/07/17 10:13 Dose: 81 mg Famotidine (Pepcid) 20 mg PO DAILY [facility] Last Admin: 10/07/17 10:13 Dose: 20 mg Heparin Sodium (Porcine) (Heparin) 5,000 units SC Q12 [facility] Last Admin: 10/06/17 09:20 Dose: 5,000 units Sodium Chloride (Sodium Chloride 0.9%) 1,000 mls @ 70 mls/hr IV .[id number] [facility] Last Admin: 10/07/17 13:03 Dose: 70 mls/hr Piperacillin Sod/Tazobactam Sod (Zosyn 3.375 Gm Iv Premix) 3.375 gm in 50 mls @ 100 mls/hr IVPB Q8H [facility] Insulin Human Regular (Novolin R) 0 unit SC ACHS [facility] PRN Reason: Protocol Last Admin: 10/07/17 12:45 Dose: 2 unit Isosorbide Mononitrate (Imdur) 60 mg PO DAILY [facility] Last Admin: 10/07/17 10:14 Dose: 60 mg Levothyroxine Sodium (Synthroid) 50 mcg PO DAILY@0630 [facility] Last Admin: 10/07/17 06:11 Dose: 50 mcg Losartan Potassium (Cozaar) 100 mg PO DAILY [facility] Last Admin: 10/07/17 10:14 Dose: 100 mg Morphine Sulfate (Morphine) 1 mg IV Q4H PRN PRN Reason: Pain, moderate (4-7) Last Admin: 10/05/17 18:09 Dose: 1 mg Nebivolol (Bystolic) 10 mg PO DAILY [facility] Last Admin: 10/07/17 10:13 Dose: 10 mg Ondansetron HCl (Zofran Inj) 4 mg IVP Q6H PRN PRN Reason: Nausea/Vomiting Last Admin: 10/07/17 14:09 Dose: 4 mg Polyethylene Glycol (Miralax) 17 gm PO BID PRN PRN Reason: Constipation Last Admin: 10/07/17 10:14 Dose: 17 gm Rosuvastatin Calcium (Crestor) 5 mg PO HS [facility] Last Admin: 10/06/17 21:44 Dose: 5 mg Zolpidem Tartrate (Ambien) 5 mg PO HS PRN PRN Reason: Insomnia Last Admin: 10/04/17 23:27 Dose: 5 mg Results - Vital Signs Recent Vital Signs: Last Vital Signs Temp 98.1 F 10/07/17 07:00 Pulse 85 10/07/17 07:00 Resp 20 10/07/17 07:00 BP 121/64 10/07/17 07:00 Pulse Ox 96 10/07/17 07:00 - Labs Result Diagrams: 10/07/17 06:45 10/07/17 06:45 Labs: Laboratory Results - last 24 hr 10/06/17 10/06/17 10/06/17 16:12 17:16 17:16 WBC 10.4 RBC 5.39 H Hgb 15.4 Hct 47.3 H MCV 87.7 MCH 28.6 MCHC 32.6 L RDW 15.0 H Plt Count 255 MPV 10.0 Neut % (Auto) Lymph % (Auto) Frio % (Auto) Eos % (Auto) Baso % (Auto) Neut # Lymph # Frio # Eos # Baso # Neutrophils % (Manual) Band Neutrophils % Lymphocytes % (Manual) Monocytes % (Manual) Toxic Granulation Platelet Estimate Large Platelets Polychromasia Hypochromasia (manual) Anisocytosis (manual) Sodium 136 Potassium 3.5 L Chloride 95 L Carbon Dioxide 30 Anion Gap 14 BUN 22 H Creatinine 0.8 Est GFR ( Amer) > 60 Est GFR (Non-Af Amer) > 60 POC Glucose (mg/dL) 140 H Random Glucose 157 H Calcium 9.3 Phosphorus Magnesium Total Bilirubin AST ALT Alkaline Phosphatase Total Protein Albumin Globulin Albumin/Globulin Ratio Procalcitonin Urine Color Urine Clarity Urine pH Ur Specific Mentcle Urine Protein Urine Glucose (UA) Urine Ketones Urine Blood Urine Nitrate Urine Bilirubin Urine Urobilinogen Ur Leukocyte Esterase Urine WBC (Auto) Urine RBC (Auto) Ur Squamous Epith Cells Urine Bacteria Stool Occult Blood Hepatitis A IgM Ab Hep Bs Antigen Hep B Core IgM Ab Hepatitis C Antibody 10/06/17 10/06/17 10/07/17 17:16 21:41 03:08 WBC RBC Hgb Hct MCV MCH MCHC RDW Plt Count MPV Neut % (Auto) Lymph % (Auto) Frio % (Auto) Eos % (Auto) Baso % (Auto) Neut # Lymph # Frio # Eos # Baso # Neutrophils % (Manual) Band Neutrophils % Lymphocytes % (Manual) Monocytes % (Manual) Toxic Granulation Platelet Estimate Large Platelets Polychromasia Hypochromasia (manual) Anisocytosis (manual) Sodium Potassium Chloride Carbon Dioxide Anion Gap BUN Creatinine Est GFR ( Amer) Est GFR (Non-Af Amer) POC Glucose (mg/dL) 186 H Random Glucose Calcium Phosphorus Magnesium Total Bilirubin AST ALT Alkaline Phosphatase Total Protein Albumin Globulin Albumin/Globulin Ratio Procalcitonin 1.19 H Urine Color Yellow Urine Clarity Clear Urine pH 5.0 Ur Specific Mentcle 1.049 H Urine Protein 1+ H Urine Glucose (UA) 1+ Urine Ketones Negative Urine Blood 1+ H Urine Nitrate Negative Urine Bilirubin Negative Urine Urobilinogen Normal Ur Leukocyte Esterase Neg Urine WBC (Auto) 2 Urine RBC (Auto) 8 H Ur Squamous Epith Cells 10 H Urine Bacteria Rare Stool Occult Blood Hepatitis A IgM Ab Hep Bs Antigen Hep B Core IgM Ab Hepatitis C Antibody 10/07/17 10/07/17 10/07/17 06:41 06:45 06:45 WBC 13.0 H RBC 4.86 Hgb 14.0 Hct 42.1 MCV 86.5 MCH 28.7 MCHC 33.2 RDW 14.9 H Plt Count 260 MPV 9.7 Neut % (Auto) 62.1 Lymph % (Auto) 14.3 L Frio % (Auto) 23.3 H Eos % (Auto) 0.0 Baso % (Auto) 0.3 Neut # 8.1 H Lymph # 1.9 Frio # 3.0 H Eos # 0.0 Baso # 0.0 Neutrophils % (Manual) 51 Band Neutrophils % 12 H* Lymphocytes % (Manual) 13 L Monocytes % (Manual) 24 H Toxic Granulation Present Platelet Estimate Normal Large Platelets Present Polychromasia Slight Hypochromasia (manual) Slight Anisocytosis (manual) Slight Sodium 134 Potassium 3.6 Chloride 98 Carbon Dioxide 29 Anion Gap 11 BUN 33 H Creatinine 1.1 Est GFR ( Amer) 58 Est GFR (Non-Af Amer) 48 POC Glucose (mg/dL) 160 H Random Glucose 156 H Calcium 9.1 Phosphorus 2.6 Magnesium 1.7 Total Bilirubin 0.8 AST 24 ALT 17 Alkaline Phosphatase 115 Total Protein 7.2 Albumin 3.5 Globulin 3.7 Albumin/Globulin Ratio 1.0 Procalcitonin Urine Color Urine Clarity Urine pH Ur Specific Mentcle Urine Protein Urine Glucose (UA) Urine Ketones Urine Blood Urine Nitrate Urine Bilirubin Urine Urobilinogen Ur Leukocyte Esterase Urine WBC (Auto) Urine RBC (Auto) Ur Squamous Epith Cells Urine Bacteria Stool Occult Blood Hepatitis A IgM Ab Hep Bs Antigen Hep B Core IgM Ab Hepatitis C Antibody 10/07/17 10/07/17 10/07/17 06:45 11:35 13:17 WBC RBC Hgb Hct MCV MCH MCHC RDW Plt Count MPV Neut % (Auto) Lymph % (Auto) Frio % (Auto) Eos % (Auto) Baso % (Auto) Neut # Lymph # Frio # Eos # Baso # Neutrophils % (Manual) Band Neutrophils % Lymphocytes % (Manual) Monocytes % (Manual) Toxic Granulation Platelet Estimate Large Platelets Polychromasia Hypochromasia (manual) Anisocytosis (manual) Sodium Potassium Chloride Carbon Dioxide Anion Gap BUN Creatinine Est GFR ( Amer) Est GFR (Non-Af Amer) POC Glucose (mg/dL) 151 H Random Glucose Calcium Phosphorus Magnesium Total Bilirubin AST ALT Alkaline Phosphatase Total Protein Albumin Globulin Albumin/Globulin Ratio Procalcitonin Urine Color Urine Clarity Urine pH Ur Specific Mentcle Urine Protein Urine Glucose (UA) Urine Ketones Urine Blood Urine Nitrate Urine Bilirubin Urine Urobilinogen Ur Leukocyte Esterase Urine WBC (Auto) Urine RBC (Auto) Ur Squamous Epith Cells Urine Bacteria Stool Occult Blood Positive H Hepatitis A IgM Ab Negative Hep Bs Antigen Negative Hep B Core IgM Ab Negative Hepatitis C Antibody Negative
[2017-10-07] MEDS ORDERED: Iohexol 240 (50 ml) PO ONE (16:30)
[2017-10-07] MEDS ORDERED: Piperacill/Tazo 3.375gm in Dex 3.375 GM/50 ML BAG IVPB SCH (17:00)
--- NOTE | 2017-10-07 19:20 | CP.PCM.CON ---
History of Present Illness - History of Present Illness History of Present Illness: General surgery consult note for Dr. Marcin Mayers, PGY-1 Pt S & E at bedside. 77F w/PMH of HTN, HLD, DM, CAD, CABG, Hx of Breast Cancer (s/p lumpectomy) and Hypothyroidism consulted for LLQ ab pain. Pt reports diffuse abdominal pain x 2 days. Ab pain is constant, severe, non radiating, sharp. Admits to no BM x 2 days (usually goes daily), poor appetite, spitting up brown liquid, abdominal bloating, nausea, chills, difficulty urinating. Denies fevers, changes in weight, flatus, chest pain, SOB, other complaints. Pt had enema this AM with no resolution. PMH: HTN, HLD, DM, CAD, CABG, Hx of Breast Cancer (s/p lumpectomy) and Hypothyroidism PSH: Pacemaker (placed on the right due to Hx Breast Cancer) All: NKDA SH: Denies ETOH, tobacco, illicit drug use Review of Systems - Review of Systems All systems: reviewed and no additional remarkable complaints except - Constitutional Constitutional: Chills. absent: Fever, Increased Appetite, Weakness - EENT Nose/Mouth/Throat: absent: Sore Throat - Cardiovascular Cardiovascular: absent: Chest Pain, Pedal Edema - Gastrointestinal Gastrointestinal: Abdominal Pain, Bloating, Change in Bowel Habits, Constipation , Hematochezia, Nausea. absent: Diarrhea, Excessive Flatus, Fecal Incontinence , Hematemesis, Vomiting (spitting up brown fluid) - Genitourinary Genitourinary: Difficulty Urinating. absent: Dysuria - Musculoskeletal Musculoskeletal: absent: Muscle Weakness, Numbness, Tingling - Integumentary Integumentary: absent: Rash - Psychiatric Psychiatric: Change in Appetite (decreased) Past Patient History - Past Medical History & Family History Past Medical History?: Yes - Past Social History Smoking Status: Former Smoker Alcohol: None Drugs: Denies Home Situation {Lives}: With Family - CARDIAC Hx Cardia Arrhythmia: Yes Hx Hypercholesterolemia: Yes Hx Hypertension: Yes Hx Pacemaker: Yes - PULMONARY Hx Respiratory Disorders: Yes (SOB SOMETIMES) - NEUROLOGICAL Hx Neurological Disorder: Yes - HEENT Hx HEENT Problems: Yes Hx Cataracts: Yes (removed bilateral 2011) - RENAL Hx Chronic Kidney Disease: No - ENDOCRINE/METABOLIC Hx Hypothyroidism: Yes - HEMATOLOGICAL/ONCOLOGICAL Hx Blood Disorders: Yes Hx Cancer: Yes (LEFT BREAST-RADIATION TX. DONE) - INTEGUMENTARY Hx Dermatological Problems: Yes Other/Comment: CANCER LEFT BREAST-LUMPECTOMY DONE - MUSCULOSKELETAL/RHEUMATOLOGICAL Hx Arthritis: Yes (KNEE PAIN) - GASTROINTESTINAL Hx Gastrointestinal Disorders: No - GENITOURINARY/GYNECOLOGICAL Hx Genitourinary Disorders: No - PSYCHIATRIC Hx Anxiety: Yes Hx Depression: Yes Hx Substance Use: No - SURGICAL HISTORY Hx Coronary Artery Bypass Graft: Yes (jan 17 2013 TRIPLE) Hx Coronary Stent: Yes Hx Tonsillectomy: Yes - ANESTHESIA Hx Anesthesia: Yes Hx Anesthesia Reactions: No Hx Malignant Hyperthermia: No Meds Allergies/Adverse Reactions: Allergies Allergy/AdvReac Type Severity Reaction Status Date / Time No Known Allergies Allergy Verified 10/04/17 17:45 - Medications Medications: Current Medications Amlodipine Besylate (Norvasc) 10 mg PO DAILY [facility] Last Admin: 10/07/17 10:14 Dose: 10 mg Aspirin (Ecotrin) 81 mg PO DAILY [facility] Last Admin: 10/07/17 10:13 Dose: 81 mg Famotidine (Pepcid) 20 mg PO DAILY [facility] Last Admin: 10/07/17 10:13 Dose: 20 mg Heparin Sodium (Porcine) (Heparin) 5,000 units SC Q12 [facility] Last Admin: 10/06/17 09:20 Dose: 5,000 units Sodium Chloride (Sodium Chloride 0.9%) 1,000 mls @ 70 mls/hr IV .[id number] [facility] Last Admin: 10/07/17 13:03 Dose: 70 mls/hr Piperacillin Sod/Tazobactam Sod (Zosyn 3.375 Gm Iv Premix) 3.375 gm in 50 mls @ 100 mls/hr IVPB Q8H [facility] Last Admin: 10/07/17 17:23 Dose: 100 mls/hr Insulin Human Regular (Novolin R) 0 unit SC ACHS [facility] PRN Reason: Protocol Last Admin: 10/07/17 17:22 Dose: Not Given Isosorbide Mononitrate (Imdur) 60 mg PO DAILY [facility] Last Admin: 10/07/17 10:14 Dose: 60 mg Levothyroxine Sodium (Synthroid) 50 mcg PO DAILY@0630 [facility] Last Admin: 10/07/17 06:11 Dose: 50 mcg Losartan Potassium (Cozaar) 100 mg PO DAILY [facility] Last Admin: 10/07/17 10:14 Dose: 100 mg Morphine Sulfate (Morphine) 1 mg IV Q4H PRN PRN Reason: Pain, moderate (4-7) Last Admin: 10/05/17 18:09 Dose: 1 mg Nebivolol (Bystolic) 10 mg PO DAILY [facility] Last Admin: 10/07/17 10:13 Dose: 10 mg Polyethylene Glycol (Miralax) 17 gm PO BID PRN PRN Reason: Constipation Last Admin: 10/07/17 10:14 Dose: 17 gm Rosuvastatin Calcium (Crestor) 5 mg PO HS [facility] Last Admin: 10/06/17 21:44 Dose: 5 mg Zolpidem Tartrate (Ambien) 5 mg PO HS PRN PRN Reason: Insomnia Last Admin: 10/04/17 23:27 Dose: 5 mg Physical Exam - Constitutional Appears: Non-toxic, No Acute Distress - Head Exam Head Exam: ATRAUMATIC, NORMAL INSPECTION, NORMOCEPHALIC - Eye Exam Eye Exam: EOMI, Normal appearance - ENT Exam ENT Exam: Mucous Membranes Moist, Normal Exam - Neck Exam Neck exam: Positive for: Full Rom, Normal Inspection - Respiratory Exam Respiratory Exam: Clear to Auscultation Bilateral, NORMAL BREATHING PATTERN - Cardiovascular Exam Cardiovascular Exam: REGULAR RHYTHM, +S1, +S2 - GI/Abdominal Exam GI & Abdominal Exam: Distended (tympanic), Firm, Guarding, Hypoactive Bowel Sounds, Tenderness (diffuse) - Rectal Exam Rectal Exam: NORMAL INSPECTION (no hard stool in rectal vault). absent: Fecal Impaction - Extremities Exam Extremities exam: Positive for: normal inspection Additional comments: Right lower leg with brace in place - Neurological Exam Neurological exam: Alert, CN II-XII Intact, Oriented x3 - Psychiatric Exam Psychiatric exam: Normal Affect, Normal Mood - Skin Skin Exam: Dry, Intact, Normal Color, Warm Results - Vital Signs Recent Vital Signs: Last Vital Signs Temp 98.3 F 10/07/17 15:13 Pulse 93 H 10/07/17 15:13 Resp 20 10/07/17 15:13 BP 144/75 10/07/17 15:13 Pulse Ox 95 10/07/17 15:13 - Labs Result Diagrams: 10/07/17 06:45 01/19/18 06:45 Labs: Laboratory Results - last 24 hr 10/06/17 10/06/17 10/07/17 17:16 21:41 03:08 WBC RBC Hgb Hct MCV MCH MCHC RDW Plt Count MPV Neut % (Auto) Lymph % (Auto) [place] % (Auto) Eos % (Auto) Baso % (Auto) Neut # Lymph # [place] # Eos # Baso # Neutrophils % (Manual) Band Neutrophils % Lymphocytes % (Manual) Monocytes % (Manual) Toxic Granulation Platelet Estimate Large Platelets Polychromasia Hypochromasia (manual) Anisocytosis (manual) Sodium Potassium Chloride Carbon Dioxide Anion Gap BUN Creatinine Est GFR ( Amer) Est GFR (Non-Af Amer) POC Glucose (mg/dL) 186 H Random Glucose Calcium Phosphorus Magnesium Total Bilirubin AST ALT Alkaline Phosphatase Total Protein Albumin Globulin Albumin/Globulin Ratio Procalcitonin 1.19 H Urine Color Yellow Urine Clarity Clear Urine pH 5.0 Ur Specific [place] 1.049 H Urine Protein 1+ H Urine Glucose (UA) 1+ Urine Ketones Negative Urine Blood 1+ H Urine Nitrate Negative Urine Bilirubin Negative Urine Urobilinogen Normal Ur Leukocyte Esterase Neg Urine WBC (Auto) 2 Urine RBC (Auto) 8 H Ur Squamous Epith Cells 10 H Urine Bacteria Rare Stool Occult Blood Hepatitis A IgM Ab Hep Bs Antigen Hep B Core IgM Ab Hepatitis C Antibody 10/07/17 10/07/17 10/07/17 06:41 06:45 06:45 WBC 13.0 H RBC 4.86 Hgb 14.0 Hct 42.1 MCV 86.5 MCH 28.7 MCHC 33.2 RDW 14.9 H Plt Count 260 MPV 9.7 Neut % (Auto) 62.1 Lymph % (Auto) 14.3 L [place] % (Auto) 23.3 H Eos % (Auto) 0.0 Baso % (Auto) 0.3 Neut # 8.1 H Lymph # 1.9 [place] # 3.0 H Eos # 0.0 Baso # 0.0 Neutrophils % (Manual) 51 Band Neutrophils % 12 H* Lymphocytes % (Manual) 13 L Monocytes % (Manual) 24 H Toxic Granulation Present Platelet Estimate Normal Large Platelets Present Polychromasia Slight Hypochromasia (manual) Slight Anisocytosis (manual) Slight Sodium 134 Potassium 3.6 Chloride 98 Carbon Dioxide 29 Anion Gap 11 BUN 33 H Creatinine 1.1 Est GFR ( Amer) 58 Est GFR (Non-Af Amer) 48 POC Glucose (mg/dL) 160 H Random Glucose 156 H Calcium 9.1 Phosphorus 2.6 Magnesium 1.7 Total Bilirubin 0.8 AST 24 ALT 17 Alkaline Phosphatase 115 Total Protein 7.2 Albumin 3.5 Globulin 3.7 Albumin/Globulin Ratio 1.0 Procalcitonin Urine Color Urine Clarity Urine pH Ur Specific [place] Urine Protein Urine Glucose (UA) Urine Ketones Urine Blood Urine Nitrate Urine Bilirubin Urine Urobilinogen Ur Leukocyte Esterase Urine WBC (Auto) Urine RBC (Auto) Ur Squamous Epith Cells Urine Bacteria Stool Occult Blood Hepatitis A IgM Ab Hep Bs Antigen Hep B Core IgM Ab Hepatitis C Antibody 10/07/17 10/07/17 10/07/17 06:45 11:35 13:17 WBC RBC Hgb Hct MCV MCH MCHC RDW Plt Count MPV Neut % (Auto) Lymph % (Auto) [place] % (Auto) Eos % (Auto) Baso % (Auto) Neut # Lymph # [place] # Eos # Baso # Neutrophils % (Manual) Band Neutrophils % Lymphocytes % (Manual) Monocytes % (Manual) Toxic Granulation Platelet Estimate Large Platelets Polychromasia Hypochromasia (manual) Anisocytosis (manual) Sodium Potassium Chloride Carbon Dioxide Anion Gap BUN Creatinine Est GFR ( Amer) Est GFR (Non-Af Amer) POC Glucose (mg/dL) 151 H Random Glucose Calcium Phosphorus Magnesium Total Bilirubin AST ALT Alkaline Phosphatase Total Protein Albumin Globulin Albumin/Globulin Ratio Procalcitonin Urine Color Urine Clarity Urine pH Ur Specific [place] Urine Protein Urine Glucose (UA) Urine Ketones Urine Blood Urine Nitrate Urine Bilirubin Urine Urobilinogen Ur Leukocyte Esterase Urine WBC (Auto) Urine RBC (Auto) Ur Squamous Epith Cells Urine Bacteria Stool Occult Blood Positive H Hepatitis A IgM Ab Negative Hep Bs Antigen Negative Hep B Core IgM Ab Negative Hepatitis C Antibody Negative Assessment & Plan - Assessment and Plan (Free Text) Assessment: 77F w/abdominal pain/distention 2/2 SBO Plan: CT abdomen- air-fluid levels consistent with SBO NGT NPO Pain mgmt IVF serial ab exams further mgmt as per primary team BROOKE attending Riana, PGY-1 - Date & Time Date: 10/07/17 Time: 19:21
--- NOTE | 2017-10-07 21:05 | CT ---
EXAM: CT Abdomen and Pelvis Without Intravenous Contrast EXAM DATE/TIME: Exam ordered 10/07/2017 3:43 PM CLINICAL HISTORY: 77 years old, female; Pain; Abdominal pain; Periumbilical; Additional info: Abdominal pain, nausea, TECHNIQUE: Axial computed tomography images of the abdomen and pelvis without intravenous contrast. All CT scans at this facility use one or more dose reduction techniques, viz.: automated exposure control; ma/kV adjustment per patient size (including targeted exams where dose is matched to indication; i.e. head); or iterative reconstruction technique. Coronal and sagittal reformatted images were created and reviewed. COMPARISON: CR - PELVIS ONE VIEW 2015-10-25 13:01 FINDINGS: Lower thorax: A granuloma is noted in the right middle lobe. An area of discoid atelectasis or scar is suggested in the lingula. Mild hypoventilatory changes are noted in the dependent portion of both lung bases. Pacemaker electrodes are noted in the heart. There is reflux of contrast into the distal esophagus and a small hiatal hernia. ABDOMEN: Liver: There is a portal venous gas is seen throughout the liver. There is a large cyst occupying most of the right lobe of the liver and measuring 17.5 x 13 by 17 cm. A cyst is noted in the left lobe measuring 4.3 x 4 by 5 cm. Gallbladder and bile ducts: Unremarkable. No calcified stones. No ductal dilation. Pancreas: Unremarkable. No ductal dilation. Spleen: Unremarkable. No splenomegaly. Adrenals: Unremarkable. No mass. Kidneys and ureters: Nonobstructing calcifications are noted in the hilum of the left kidney. They appear to be vascular.No hydronephrosis. Stomach and bowel: There is small bowel pneumatosis predominantly involving bowel loops in the left side of the abdomen. Multiple dilated small bowel loops are present with air-fluid and air-contrast levels noted. Perienteric inflammatory changes are noted within the mesenteric fat surrounding dilated bowel loops in the left mid and lower abdomen. Appendix: No findings to suggest acute appendicitis. PELVIS: Bladder: Unremarkable. No stones. Reproductive: Unremarkable as visualized. ABDOMEN and PELVIS: Intraperitoneal space: Unremarkable. No free air. No significant fluid collection. Bones/joints: There has been a median sternotomy. Degenerative changes are noted of the lumbar spine. No acute fracture. No dislocation. Soft tissues: Unremarkable. Vasculature:Gas is noted within the portal vein confluence and the superior mesenteric vein and distal tributaries. There is a dissection of the infrarenal abdominal aorta with a maximum diameter of 2.8 cm. Aneurysmal segment extends for 2.7 cm. Lymph nodes: Unremarkable. No enlarged lymph nodes. IMPRESSION: 1. Small bowel pneumatosis and portal venous gas concerning for bowel ischemia and necrosis 2. Multiple liver cysts. 3. Nonobstructing calcifications in the left kidney. 4. 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
[2017-10-07] MEDS ORDERED: Sodium Chloride 0.9% 1,000 ML IV SCH (21:30)
[2017-10-07] MEDS ORDERED: Meropenem 1 GM in Sodium Chloride 0.9% 100 ML IVPB SCH (22:00)
[2017-10-07] MEDS ORDERED: metroNIDAZOLE IV 500 mg/100 ml 500 MG/100 ML BAG IVPB SCH (22:00)
[2017-10-07] MEDS ORDERED: Lactated Ringer's 1,000 ML IV SCH (22:15)
[2017-10-07] MEDS: metroNIDAZOLE IV 500 mg/100 ml 500 MG/100 ML BAG IVPB SCH (22:45)
[2017-10-07] MEDS ORDERED: Albumin Human 25% (12.5 gm/50 ml) IV ONE ×2 (23:43→23:44)
[2017-10-07] MEDS ORDERED: Sodium Chloride 0.9% 1,000 ML IV ONE ×3 (23:45)
[2017-10-07] MEDS ORDERED: Lactated Ringer's 1,000 ML IV ONE (23:45)
[2017-10-07] MEDS ORDERED: Midazolam 2 MG/2 ML VIAL ONE (23:58)
[2017-10-08] MEDS ORDERED: Etomidate 20 mg/10ml Inj IV ONE (00:31)
[2017-10-08] MEDS ORDERED: Lactated Ringer's 1,000 ML IV ONE (01:00)
--- NOTE | 2017-10-08 02:13 | PCM.SURG1 ---
Surgeon's Initial Post Op Note - Surgeon's Notes Surgeon: Damon Hinton MD Blocker And Polisher: Jonnathan Finnegan PGY-3; Mary Mayers PGY-1 Type of Anesthesia: General Endo Pre-Operative Diagnosis: acute abdomen, possible bowel ischemia Operative Findings: See op report Post-Operative Diagnosis: Small bowel ischemia/necrosis Operation Performed: Exploratory laparotomy, small bowel resection and primary anastomosis Specimen/Specimens Removed: Small bowel Estimated Blood Loss: EBL {In ML}: 100 Blood Products Given: N/A Drains Used: No Drains Post-Op Condition: Fair Date of Surgery/Procedure: 10/08/17 Time of Surgery/Procedure: 02:13
[2017-10-08] MEDS ORDERED: (Novolin R) Insulin Human Regular 100 units/ml vial SC SCH (02:15)
[2017-10-08] MEDS ORDERED: Sodium Chloride 0.9% 1,000 ML IV SCH (02:22)
[2017-10-08] MEDS: Propofol 10 mg/ml 1,000 MG/100 ML VIAL IV PRN ×2 (02:35→08:58)
[2017-10-08 02:51] LABS: ARTERIAL BLOOD GAS HCO3 21.3 mmol/L (21-28); ARTERIAL BLOOD GAS O2 SAT 96.4 % (95-98); ARTERIAL BLOOD GAS PCO2 32 mm/Hg (35-45); ARTERIAL BLOOD GAS PH 7.39 (7.35-7.45); ARTERIAL BLOOD GAS PO2 82 mm/Hg (80-100); ARTERIAL BLOOD GAS TCO2 20.4 mmol/L (22-28)
[2017-10-08 03:09] LABS: MEAN PLATELET VOLUME 10.1 fL (7.2-11.7)
[2017-10-08 03:13] LABS: BASO % 0.2 % (0.0-2.0); EOS % 0.1 % (0.0-4.0); LYMPH # 1.3 K/uL (1.0-4.3); LYMPH % 32.4 % (20.0-40.0); MEAN CELL VOLUME 86.8 fL (81.0-99.0); MEAN CORPUSCULAR HEMOGLOBIN 28.3 pg (27.0-31.0); MEAN CORPUSCULAR HGB CONC 32.6 g/dL (33.0-37.0); MONO # 0.5 K/uL (0.0-0.8); MONO % 11.5 % (0.0-10.0); NEUT # 2.2 K/uL (1.8-7.0); NEUT % 55.8 % (50.0-75.0); NRBC % 0.1 % (0.0-2.0); RBC 3.92 Mil/uL (3.80-5.20); RED CELL DISTRIBUTION WIDTH 14.8 % (11.5-14.5)
[2017-10-08 03:14] LABS: HEMOGLOBIN 11.1 g/dL (11.0-16.0)
[2017-10-08 03:17] LABS: ALBUMIN 2.7 g/dL (3.5-5.0); CALCIUM 7.5 mg/dl (8.6-10.4)
--- NOTE | 2017-10-08 03:41 | CP.PCM.CON ---
History of Present Illness - History of Present Illness History of Present Illness: Attending: Dianne Royal MD Reason for Consult Critical care management The Patient was seen before and after surgery Chief Complaint: Post laparotomy still on ventilator HPI: The hx was obtained from Discussion with Dr Royal and and other medical staff, and after review of the medical records. She is a 77 years old female with hx of DM II, HTN, COPDm severe aortic Stenoisis and CAD with CABG triple. She was admitted on 10/04/17 with Chest pain and some abdominal pain radiating to the Back. The Cardiac labs were non specific. Dr Childs was the associate sales with Dr Jean Carlos naidu. Cardiac Cath on 10/06/17 showed the LAD to [facility] patient The RCA was 50% stenosed The patient was being treated conservatively On 10/07/17 she was still complaining of some abdominal pain, now with distention and melena. CT abdomen with PO Contrast done showed: small bowel pneumatosis and concerning for Bowel Ischemia and necrosis Surgery was consulted and the patient taken to surgery. PMH: HTN; CAD; Bradicardia; COPD; Breast Cancer, s/p lumpectomy and radiation; Anxiety/ Depression; arthritis; DM II; HLD; Hypothyroidism; Severe Aortic Stenosis PSH: CABG triple; Pacemaker insertion; tonsillectomy SH: Former Smoker; No illegal drug use; No ETOH; Live at home with son and daughter involced in care FH: No known family hx Allergies: NKDA Medication: Reviewed Review of Systems - Review of Systems Review of Systems: Review of systems limited as the patient does not feel to talk too much. - Constitutional Constitutional: Weakness. absent: Fever - EENT Eyes: Requires Corrective Lenses Nose/Mouth/Throat: absent: Epistaxis - Respiratory Respiratory: absent: Cough, Dyspnea - Gastrointestinal Gastrointestinal: Abdominal Pain Past Patient History - Past Medical History & Family History Past Medical History?: Yes - Past Social History Smoking Status: Former Smoker Alcohol: None Drugs: Denies Home Situation {Lives}: With Family - CARDIAC Hx Cardia Arrhythmia: Yes Hx Hypercholesterolemia: Yes Hx Hypertension: Yes Hx Pacemaker: Yes - PULMONARY Hx Respiratory Disorders: Yes (SOB SOMETIMES) - NEUROLOGICAL Hx Neurological Disorder: Yes - HEENT Hx HEENT Problems: Yes Hx Cataracts: Yes (removed bilateral 2011) - RENAL Hx Chronic Kidney Disease: No - ENDOCRINE/METABOLIC Hx Hypothyroidism: Yes - HEMATOLOGICAL/ONCOLOGICAL Hx Blood Disorders: Yes Hx Cancer: Yes (LEFT BREAST-RADIATION TX. DONE) - INTEGUMENTARY Hx Dermatological Problems: Yes Other/Comment: CANCER LEFT BREAST-LUMPECTOMY DONE - MUSCULOSKELETAL/RHEUMATOLOGICAL Hx Arthritis: Yes (KNEE PAIN) - GASTROINTESTINAL Hx Gastrointestinal Disorders: No - GENITOURINARY/GYNECOLOGICAL Hx Genitourinary Disorders: No - PSYCHIATRIC Hx Anxiety: Yes Hx Depression: Yes Hx Substance Use: No - SURGICAL HISTORY Hx Coronary Artery Bypass Graft: Yes (jan 17 2013 TRIPLE) Hx Coronary Stent: Yes Hx Tonsillectomy: Yes - ANESTHESIA Hx Anesthesia: Yes Hx Anesthesia Reactions: No Hx Malignant Hyperthermia: No Meds Allergies/Adverse Reactions: Allergies Allergy/AdvReac Type Severity Reaction Status Date / Time No Known Allergies Allergy Verified 10/04/17 17:45 - Medications Medications: Current Medications Amlodipine Besylate (Norvasc) 10 mg PO DAILY [facility] Last Admin: 10/07/17 10:14 Dose: 10 mg Aspirin (Ecotrin) 81 mg PO DAILY [facility] Last Admin: 10/07/17 10:13 Dose: 81 mg Heparin Sodium (Porcine) (Heparin) 5,000 units SC Q12 [facility] Last Admin: 10/06/17 09:20 Dose: 5,000 units Hydromorphone HCl (Dilaudid) 0.5 mg IVP Q4H PRN PRN Reason: Pain, moderate (4-7) Hydromorphone HCl (Dilaudid) 1 mg IVP Q4H PRN PRN Reason: Pain, severe (8-10) Meropenem 1 gm/ Sodium (Chloride) 50 mls @ 100 mls/hr IVPB Q8H [facility] Last Admin: 10/07/17 22:36 Dose: 100 mls/hr Metronidazole (Flagyl) 500 mg in 100 mls @ 100 mls/hr IVPB Q8 [facility] Last Admin: 10/07/17 22:45 Dose: 100 mls/hr Propofol (Diprivan) 1,000 mg in 100 mls @ 2.381 mls/hr IV .Q24H PRN; Protocol; 5 MCG/KG/MIN PRN Reason: TITRATE PER MD ORDER Last Admin: 10/08/17 02:35 Dose: 10 mcg/kg/min, 4.763 mls/hr Potassium Chloride 20 meq/ (Sodium Chloride) 1,010 mls @ 125 mls/hr IV .Q8H5M [facility] Insulin Human Regular (Novolin R) 0 unit SC Q6H [facility] PRN Reason: Protocol Isosorbide Mononitrate (Imdur) 60 mg PO DAILY [facility] Last Admin: 10/07/17 10:14 Dose: 60 mg Levothyroxine Sodium (Synthroid) 50 mcg PO DAILY@0630 [facility] Last Admin: 10/07/17 06:11 Dose: 50 mcg Losartan Potassium (Cozaar) 100 mg PO DAILY [facility] Last Admin: 10/07/17 10:14 Dose: 100 mg Nebivolol (Bystolic) 10 mg PO DAILY [facility] Last Admin: 10/07/17 10:13 Dose: 10 mg Ondansetron HCl (Zofran Inj) 4 mg IVP Q6H PRN PRN Reason: Nausea/Vomiting Last Admin: 10/07/17 20:20 Dose: 4 mg Pantoprazole Sodium (Protonix Inj) 40 mg IVP DAILY [facility] Polyethylene Glycol (Miralax) 17 gm PO BID PRN PRN Reason: Constipation Last Admin: 10/07/17 10:14 Dose: 17 gm Rosuvastatin Calcium (Crestor) 5 mg PO HS [facility] Last Admin: 10/07/17 22:43 Dose: Not Given Zolpidem Tartrate (Ambien) 5 mg PO HS PRN PRN Reason: Insomnia Last Admin: 10/04/17 23:27 Dose: 5 mg Physical Exam - Head Exam Head Exam: ATRAUMATIC, NORMAL INSPECTION, NORMOCEPHALIC Additional comments: Intubated post surgery - Eye Exam Eye Exam: Normal appearance Pupil Exam: PERRL - ENT Exam ENT Exam: Normal Exam, Normal External Ear Exam - Neck Exam Neck exam: Positive for: Normal Inspection. Negative for: Lymphadenopathy, Thyromegaly - Respiratory Exam Respiratory Exam: Clear to Auscultation Bilateral. absent: Rales, Rhonchi, Wheezes - Cardiovascular Exam Cardiovascular Exam: REGULAR RHYTHM, RRR, +S1, +S2. absent: Gallop - GI/Abdominal Exam Additional comments: Abdomen with post surgical dressing, clean and dry, decreased bowel sounds - Rectal Exam Rectal Exam: Deferred - Extremities Exam Additional comments: Right leg in stabilizer to cover site of insertion for the Cardiac Catherization - Back Exam Back exam: NORMAL INSPECTION - Neurological Exam Additional comments: Restless, very lethagic, no facial droop, moving the upper extremities, no apparent focal deficit - Psychiatric Exam Additional comments: Intubated, post surgery - Skin Skin Exam: Dry, Intact, Warm Additional comments: Some mottling to the right lower extremity prior to surgery Results - Vital Signs Recent Vital Signs: Last Vital Signs Temp 97.9 F 10/08/17 02:00 Pulse 95 H 10/08/17 02:00 Resp 19 10/08/17 02:00 BP 148/66 10/08/17 02:00 Pulse Ox 97 10/08/17 02:00 - Labs Result Diagrams: 10/08/17 02:53 10/08/17 02:53 Labs: Laboratory Results - last 24 hr 10/07/17 10/07/17 10/07/17 03:08 06:41 06:45 WBC 13.0 H RBC 4.86 Hgb 14.0 Hct 42.1 MCV 86.5 MCH 28.7 MCHC 33.2 RDW 14.9 H Plt Count 260 MPV 9.7 Neut % (Auto) 62.1 Lymph % (Auto) 14.3 L Woodruff % (Auto) 23.3 H Eos % (Auto) 0.0 Baso % (Auto) 0.3 Neut # 8.1 H Lymph # 1.9 Woodruff # 3.0 H Eos # 0.0 Baso # 0.0 Neutrophils % (Manual) 51 Band Neutrophils % 12 H* Lymphocytes % (Manual) 13 L Monocytes % (Manual) 24 H Toxic Granulation Present Platelet Estimate Normal Large Platelets Present Polychromasia Slight Hypochromasia (manual) Slight Anisocytosis (manual) Slight Puncture Site pCO2 pO2 HCO3 ABG pH ABG Total CO2 ABG O2 Saturation ABG Base Excess Dayron Test ABG Potassium A-a O2 Difference Respiratory Index Glucose Lactate Vent Mode Mechanical Rate FiO2 Tidal Volume PEEP Sodium Potassium Chloride Carbon Dioxide Anion Gap BUN Creatinine Est GFR ( Amer) Est GFR (Non-Af Amer) POC Glucose (mg/dL) 160 H Random Glucose Lactic Acid Calcium Phosphorus Magnesium Total Bilirubin AST ALT Alkaline Phosphatase Total Protein Albumin Globulin Albumin/Globulin Ratio Arterial Blood Potassium Urine Color Yellow Urine Clarity Clear Urine pH 5.0 Ur Specific Kinta 1.049 H Urine Protein 1+ H Urine Glucose (UA) 1+ Urine Ketones Negative Urine Blood 1+ H Urine Nitrate Negative Urine Bilirubin Negative Urine Urobilinogen Normal Ur Leukocyte Esterase Neg Urine WBC (Auto) 2 Urine RBC (Auto) 8 H Ur Squamous Epith Cells 10 H Urine Bacteria Rare Stool Occult Blood Stool Leukocytes, Qual Hepatitis A IgM Ab Hep Bs Antigen Hep B Core IgM Ab Hepatitis C Antibody Blood Type Antibody Screen 10/07/17 10/07/17 10/07/17 06:45 06:45 11:35 WBC RBC Hgb Hct MCV MCH MCHC RDW Plt Count MPV Neut % (Auto) Lymph % (Auto) Woodruff % (Auto) Eos % (Auto) Baso % (Auto) Neut # Lymph # Woodruff # Eos # Baso # Neutrophils % (Manual) Band Neutrophils % Lymphocytes % (Manual) Monocytes % (Manual) Toxic Granulation Platelet Estimate Large Platelets Polychromasia Hypochromasia (manual) Anisocytosis (manual) Puncture Site pCO2 pO2 HCO3 ABG pH ABG Total CO2 ABG O2 Saturation ABG Base Excess Dayron Test ABG Potassium A-a O2 Difference Respiratory Index Glucose Lactate Vent Mode Mechanical Rate FiO2 Tidal Volume PEEP Sodium 134 Potassium 3.6 Chloride 98 Carbon Dioxide 29 Anion Gap 11 BUN 33 H Creatinine 1.1 Est GFR ( Amer) 58 Est GFR (Non-Af Amer) 48 POC Glucose (mg/dL) 151 H Random Glucose 156 H Lactic Acid Calcium 9.1 Phosphorus 2.6 Magnesium 1.7 Total Bilirubin 0.8 AST 24 ALT 17 Alkaline Phosphatase 115 Total Protein 7.2 Albumin 3.5 Globulin 3.7 Albumin/Globulin Ratio 1.0 Arterial Blood Potassium Urine Color Urine Clarity Urine pH Ur Specific Kinta Urine Protein Urine Glucose (UA) Urine Ketones Urine Blood Urine Nitrate Urine Bilirubin Urine Urobilinogen Ur Leukocyte Esterase Urine WBC (Auto) Urine RBC (Auto) Ur Squamous Epith Cells Urine Bacteria Stool Occult Blood Stool Leukocytes, Qual Hepatitis A IgM Ab Negative Hep Bs Antigen Negative Hep B Core IgM Ab Negative Hepatitis C Antibody Negative Blood Type Antibody Screen 10/07/17 10/07/17 10/07/17 13:17 19:43 Unknown WBC RBC Hgb Hct MCV MCH MCHC RDW Plt Count MPV Neut % (Auto) Lymph % (Auto) Woodruff % (Auto) Eos % (Auto) Baso % (Auto) Neut # Lymph # Woodruff # Eos # Baso # Neutrophils % (Manual) Band Neutrophils % Lymphocytes % (Manual) Monocytes % (Manual) Toxic Granulation Platelet Estimate Large Platelets Polychromasia Hypochromasia (manual) Anisocytosis (manual) Puncture Site pCO2 pO2 HCO3 ABG pH ABG Total CO2 ABG O2 Saturation ABG Base Excess Dayron Test ABG Potassium A-a O2 Difference Respiratory Index Glucose Lactate Vent Mode Mechanical Rate FiO2 Tidal Volume PEEP Sodium Potassium Chloride Carbon Dioxide Anion Gap BUN Creatinine Est GFR ( Amer) Est GFR (Non-Af Amer) POC Glucose (mg/dL) Random Glucose Lactic Acid 4.1 H* Calcium Phosphorus Magnesium Total Bilirubin AST ALT Alkaline Phosphatase Total Protein Albumin Globulin Albumin/Globulin Ratio Arterial Blood Potassium Urine Color Urine Clarity Urine pH Ur Specific Kinta Urine Protein Urine Glucose (UA) Urine Ketones Urine Blood Urine Nitrate Urine Bilirubin Urine Urobilinogen Ur Leukocyte Esterase Urine WBC (Auto) Urine RBC (Auto) Ur Squamous Epith Cells Urine Bacteria Stool Occult Blood Positive H Stool Leukocytes, Qual Negative Hepatitis A IgM Ab Hep Bs Antigen Hep B Core IgM Ab Hepatitis C Antibody Blood Type Antibody Screen 10/08/17 10/08/17 10/08/17 00:27 02:19 02:53 WBC 4.0 L D RBC 3.92 Hgb 11.1 D Hct 34.0 MCV 86.8 MCH 28.3 MCHC 32.6 L RDW 14.8 H Plt Count 245 MPV 10.1 Neut % (Auto) 55.8 Lymph % (Auto) 32.4 Woodruff % (Auto) 11.5 H Eos % (Auto) 0.1 Baso % (Auto) 0.2 Neut # 2.2 Lymph # 1.3 Woodruff # 0.5 Eos # 0.0 Baso # 0.0 Neutrophils % (Manual) Band Neutrophils % Lymphocytes % (Manual) Monocytes % (Manual) Toxic Granulation Platelet Estimate Large Platelets Polychromasia Hypochromasia (manual) Anisocytosis (manual) Puncture Site R bra pCO2 32 L pO2 82 HCO3 21.3 ABG pH 7.39 ABG Total CO2 20.4 L ABG O2 Saturation 96.4 ABG Base Excess -4.6 L Dayron Test Na ABG Potassium 3.0 L A-a O2 Difference 163.0 Respiratory Index 2.0 Glucose 126 H Lactate 1.8 Vent Mode Prvc Mechanical Rate 12 FiO2 40.0 Tidal Volume 500 PEEP 5 Sodium 140.0 Potassium Chloride 111.0 H Carbon Dioxide Anion Gap BUN Creatinine Est GFR ( Amer) Est GFR (Non-Af Amer) POC Glucose (mg/dL) Random Glucose Lactic Acid Calcium Phosphorus Magnesium Total Bilirubin AST ALT Alkaline Phosphatase Total Protein Albumin Globulin Albumin/Globulin Ratio Arterial Blood Potassium 3.0 L Urine Color Urine Clarity Urine pH Ur Specific Kinta Urine Protein Urine Glucose (UA) Urine Ketones Urine Blood Urine Nitrate Urine Bilirubin Urine Urobilinogen Ur Leukocyte Esterase Urine WBC (Auto) Urine RBC (Auto) Ur Squamous Epith Cells Urine Bacteria Stool Occult Blood Stool Leukocytes, Qual Hepatitis A IgM Ab Hep Bs Antigen Hep B Core IgM Ab Hepatitis C Antibody Blood Type O POSITIVE Antibody Screen Negative 10/08/17 10/08/17 02:53 02:53 WBC RBC Hgb Hct MCV MCH MCHC RDW Plt Count MPV Neut % (Auto) Lymph % (Auto) Woodruff % (Auto) Eos % (Auto) Baso % (Auto) Neut # Lymph # Woodruff # Eos # Baso # Neutrophils % (Manual) Band Neutrophils % Lymphocytes % (Manual) Monocytes % (Manual) Toxic Granulation Platelet Estimate Large Platelets Polychromasia Hypochromasia (manual) Anisocytosis (manual) Puncture Site pCO2 pO2 HCO3 ABG pH ABG Total CO2 ABG O2 Saturation ABG Base Excess Dayron Test ABG Potassium A-a O2 Difference Respiratory Index Glucose Lactate Vent Mode Mechanical Rate FiO2 Tidal Volume PEEP Sodium 136 Potassium 3.5 L Chloride 107 Carbon Dioxide 23 Anion Gap 10 BUN 40 H Creatinine 1.3 H Est GFR ( Amer) 48 Est GFR (Non-Af Amer) 40 POC Glucose (mg/dL) Random Glucose 120 H Lactic Acid 2.6 H Calcium 7.5 L Phosphorus Magnesium Total Bilirubin 1.3 AST 20 ALT 22 Alkaline Phosphatase 50 Total Protein 5.4 L Albumin 2.7 L D Globulin 2.7 Albumin/Globulin Ratio 1.0 Arterial Blood Potassium Urine Color Urine Clarity Urine pH Ur Specific Kinta Urine Protein Urine Glucose (UA) Urine Ketones Urine Blood Urine Nitrate Urine Bilirubin Urine Urobilinogen Ur Leukocyte Esterase Urine WBC (Auto) Urine RBC (Auto) Ur Squamous Epith Cells Urine Bacteria Stool Occult Blood Stool Leukocytes, Qual Hepatitis A IgM Ab Hep Bs Antigen Hep B Core IgM Ab Hepatitis C Antibody Blood Type Antibody Screen - Imaging and Cardiology CT scan - abdomen Status: Report reviewed by me Additional comment: 1. Small bowel pneumatosis and portal venous gas concerning for Bowel Ischemia and Necrosis 2. Multiple liver cysts 3. Non obstructing calculous of the left estrella 4. 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 Small bowel necrosis s/p Exploratory laparotomy with approximately 2 feet of small bowel resection. - Surgery on Consult Dr Hinton - Surgical management - Meropenem - Flagyl - To maintain patient intubated until improve in ventilation #. Chest pain wutg negative troponin, EKG with LBBB - Dr Childs and Dr Evangelista covering cardiology consult - Cardiac Catherization done showing RCA at 50% stenosis, LAD to [facility] patient - ASA/ Crestor as soon as patient could take oral medication #. CAD s/p CABG - Cardiology on consult - ASA/ Crestor - Chronic Liver cysts - Dr Boland consulted - to be followed by GI outpatient #. HTN - Change Oral medications to parenteral #. DM II - HbA1c 7.1 in 09/2017 - Accuchek Q6h with Regular insulin sliding scale #. Hypothyroidisn - Levothyroxin IV #. DVT Prophylaxis with Asa's stockings - Start Heparin Today #. Code Status: Full - Date & Time Date: 10/08/17 Time: 03:41
--- NOTE | 2017-10-08 04:24 | CP.PCM.PN ---
Subjective - Date & Time of Evaluation Date of Evaluation: 10/08/17 Time of Evaluation: 04:19 - Subjective Subjective: General surgery progress note for Dr. Marcin Mayers, PGY-1 Pt S & E at bedside. Pt continues to be intubated s/p OR, on propofol drip. Arousable to verbal and tactile stimuli. VSS. Garrett in place with 170 cc/2H. NGT in place with dark brown output, approximately 140cc out. Objective - Vital Signs/Intake and Output Vital Signs (last 24 hours): Temp Pulse Resp BP Pulse Ox 97.4 F L 81 18 83/41 L 100 10/08/17 03:00 10/08/17 03:45 10/08/17 03:45 10/08/17 03:35 10/08/17 03:45 Intake and Output: 10/07/17 10/08/17 18:59 06:59 Intake Total 1055 20 Output Total 150 Balance 1055 -130 - Medications Medications: Current Medications Amlodipine Besylate (Norvasc) 10 mg PO DAILY [facility] Last Admin: 10/07/17 10:14 Dose: 10 mg Aspirin (Ecotrin) 81 mg PO DAILY [facility] Last Admin: 10/07/17 10:13 Dose: 81 mg Heparin Sodium (Porcine) (Heparin) 5,000 units SC Q12 [facility] Last Admin: 10/06/17 09:20 Dose: 5,000 units Hydromorphone HCl (Dilaudid) 0.5 mg IVP Q4H PRN PRN Reason: Pain, moderate (4-7) Hydromorphone HCl (Dilaudid) 1 mg IVP Q4H PRN PRN Reason: Pain, severe (8-10) Meropenem 1 gm/ Sodium (Chloride) 50 mls @ 100 mls/hr IVPB Q8H [facility] Last Admin: 10/07/17 22:36 Dose: 100 mls/hr Metronidazole (Flagyl) 500 mg in 100 mls @ 100 mls/hr IVPB Q8 [facility] Last Admin: 10/07/17 22:45 Dose: 100 mls/hr Propofol (Diprivan) 1,000 mg in 100 mls @ 2.381 mls/hr IV .Q24H PRN; Protocol; 5 MCG/KG/MIN PRN Reason: TITRATE PER MD ORDER Last Titration: 10/08/17 03:55 Dose: 20 mcg/kg/min, 9.525 mls/hr Potassium Chloride 20 meq/ (Sodium Chloride) 1,010 mls @ 125 mls/hr IV .Q8H5M [facility] Last Admin: 10/08/17 03:59 Dose: 125 mls/hr Insulin Human Regular (Novolin R) 0 unit SC Q6H [facility] PRN Reason: Protocol Isosorbide Mononitrate (Imdur) 60 mg PO DAILY [facility] Last Admin: 10/07/17 10:14 Dose: 60 mg Levothyroxine Sodium (Synthroid) 50 mcg PO DAILY@0630 [facility] Last Admin: 10/07/17 06:11 Dose: 50 mcg Losartan Potassium (Cozaar) 100 mg PO DAILY [facility] Last Admin: 10/07/17 10:14 Dose: 100 mg Nebivolol (Bystolic) 10 mg PO DAILY [facility] Last Admin: 10/07/17 10:13 Dose: 10 mg Ondansetron HCl (Zofran Inj) 4 mg IVP Q6H PRN PRN Reason: Nausea/Vomiting Last Admin: 10/07/17 20:20 Dose: 4 mg Pantoprazole Sodium (Protonix Inj) 40 mg IVP DAILY [facility] Polyethylene Glycol (Miralax) 17 gm PO BID PRN PRN Reason: Constipation Last Admin: 10/07/17 10:14 Dose: 17 gm Rosuvastatin Calcium (Crestor) 5 mg PO HS [facility] Last Admin: 10/07/17 22:43 Dose: Not Given Zolpidem Tartrate (Ambien) 5 mg PO HS PRN PRN Reason: Insomnia Last Admin: 10/04/17 23:27 Dose: 5 mg - Labs Labs: 10/08/17 02:53 10/08/17 02:53 PT 12.2 SECONDS (9.7-12.2) 10/04/17 18:30 INR 1.1 10/04/17 18:30 APTT 29 SECONDS (21-34) 10/04/17 18:30 - Constitutional Appears: Non-toxic, No Acute Distress - Head Exam Head Exam: ATRAUMATIC, NORMAL INSPECTION, NORMOCEPHALIC - Eye Exam Eye Exam: EOMI, Normal appearance - ENT Exam ENT Exam: Mucous Membranes Dry Additional comments: ET and NGT in place - Neck Exam Neck Exam: Normal Inspection - Respiratory Exam Respiratory Exam: NORMAL BREATHING PATTERN (on mech vent) - Cardiovascular Exam Cardiovascular Exam: REGULAR RHYTHM, +S1, +S2 - GI/Abdominal Exam GI & Abdominal Exam: Soft. absent: Distended, Firm, Guarding, Tenderness Additional comments: Midline incision with dressings in place- scant sanguinous strike through - Exam Additional comments: Garrett in place with light yellow UOP - Extremities Exam Additional comments: mottled appearance to extremities L femoral TLC in place - Neurological Exam Neurological Exam: Awake (on propofol drip) - Psychiatric Exam Additional comments: unable to assess, intubated - Skin Skin Exam: Dry, Mottled (extremities) Assessment and Plan - Assessment and Plan (Free Text) Assessment: 77F POD#0 s/p ex lap with SB resection and primary anastomosis transferred to ICU for post op care Plan: VSS on propofol drip UOP approximately 80cc/hr Cont IVF- will change fluids in AM Keep garrett in place Cont ABx Avoid vasoconstrictive agents No anticoagulation at this time CXR post op with no pneumothorax, ET appears to be in appropriate position Extubate when meets criteria Hgb dropped from 14.0 to 11.1- pt hemo-concentrated prior to aggressive fluid resuscitation Lactic Acid now 2.6 from 4.1- will trend Cr 1.3 from 1.1 - will monitor, continue IVF Hypokalemia - K 3.5, replacing NGT to low intermittent suction Cont NPO Will continue to monitor closely Will BROOKE attending Riana, PGY-1
[2017-10-08] MEDS: metroNIDAZOLE IV 500 mg/100 ml 500 MG/100 ML BAG IVPB SCH ×3 (05:06→21:31)
[2017-10-08] MEDS: (Novolin R) Insulin Human Regular 100 units/ml vial SC SCH ×3 (05:49→18:09)
[2017-10-08 06:55] LABS: BASO % 0.3 % (0.0-2.0); EOS % 0.2 % (0.0-4.0); HEMOGLOBIN 11.8 g/dL (11.0-16.0); LYMPH # 1.3 K/uL (1.0-4.3); LYMPH % 26.9 % (20.0-40.0); MEAN CELL VOLUME 86.9 fL (81.0-99.0); MEAN CORPUSCULAR HGB CONC 33.4 g/dL (33.0-37.0); MEAN PLATELET VOLUME 10.1 fL (7.2-11.7); MONO # 0.7 K/uL (0.0-0.8); MONO % 14.2 % (0.0-10.0); NEUT # 2.8 K/uL (1.8-7.0); NEUT % 58.4 % (50.0-75.0); NRBC % 0.1 % (0.0-2.0); RBC 4.06 Mil/uL (3.80-5.20); RED CELL DISTRIBUTION WIDTH 14.8 % (11.5-14.5); WHITE BLOOD COUNT 4.8 K/uL (4.8-10.8)
[2017-10-08 07:01] LABS: ARTERIAL BLOOD GAS HCO3 21.3 mmol/L (21-28); ARTERIAL BLOOD GAS O2 SAT 97.6 % (95-98); ARTERIAL BLOOD GAS PCO2 37 mm/Hg (35-45); ARTERIAL BLOOD GAS PH 7.35 (7.35-7.45); ARTERIAL BLOOD GAS PO2 95 mm/Hg (80-100); ARTERIAL BLOOD GAS TCO2 21.5 mmol/L (22-28)
[2017-10-08 07:08] LABS: ALBUMIN 2.5 g/dL (3.5-5.0); ALT/SGPT 22 U/L (9-52); AMYLASE < 30 U/L (30-110); AST/SGOT 16 U/L (14-36); BLOOD UREA NITROGEN 39 mg/dL (7-17); CALCIUM 7.6 mg/dl (8.6-10.4); GFR AFRICAN-AMERICAN 44; GFR NON-AFRICAN AMERICAN 37; LIPASE 19 U/L (23-300); MAGNESIUM 1.6 mg/dL (1.6-2.3)
--- NOTE | 2017-10-08 07:26 | CON ---
DATE: INFECTIOUS DISEASE CONSULTATION REQUESTING PHYSICIAN: Dr. Royal. HISTORY OF PRESENT ILLNESS: This patient is a 77-year-old female. I was asked to see for bandemia and when I went to ask her questions, she would not answer much. She states I know all about her and somehow she has behaved very bragg and she did complain of her abdominal pain. She says she has been having for 2 weeks problems with her health and she was admitted with chest pain and she has history of aortic stenosis, coronary artery disease, triple bypass in 2012, also has a pacemaker, history of COPD and breast cancer. She complained she was having abdominal pain and she was spitting out brownish secretions from her mouth for which she was using multiple tissues and she spit it out in front of me. She may have some bloody discharge. She also had stool guaiac positive, according to the nurse. Patient is on cardiac meds, which include anticoagulants. So I was concerned and I wanted to get a CAT scan, which she was initially refusing and I had to call Dr. Royal to get over it. She also underwent cardiac cath yesterday and they had put a splint on her legs because she was bending it and they wanted to keep it straight. She also was telling her son she would sign out and appeared very irrational. She follows with Dr. 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 On outpatient, she had this yesterday, and I am told that she has RCA disease 50% according to Dr. Royal, and she denies any chest pain today and she is on medications. ALLERGIES: SHE DENIES ANY ALLERGIES. PAST MEDICAL HISTORY: Significant for anxiety, arthritis, cardiac arrhythmia, depression, diabetes, hypertension, hypercholesterolemia, hypothyroidism. PAST SURGICAL HISTORY: Surgical history of CABG in 2012, pacemaker, coronary stent, tonsillectomy and yesterday had again coronary angiogram done. She has had a breast procedure done in 2013 and she had the pacemaker put in, December 2013 and surgery for the breast in 2013. SOCIAL HISTORY: She used to smoke. She quit 6 years ago. No alcohol abuse. No substance abuse. FAMILY HISTORY: Noncontributory. Her one son was sitting at the bedside. REVIEW OF SYSTEMS: With him, on review of systems, she denied any fevers or chills. She had come in with chest pain. On admission, now complains of abdominal pain and she has no cough, no shortness of breath. She did complain of nausea, complained of abdominal pain. Denied any vomiting and was spitting a brownish phlegm. Denies any urinary symptoms. No dysuria. No hematuria. Denies any back pain. Denies joint pains. Had no skin problems. Denies any weakness, but she says she has been feeling sick for 2 weeks. MEDICATIONS: On examination of her medications, I find, she is on amlodipine, she is on Ecotrin 81 mg, Pepcid, heparin, Novolin R, Imdur, Synthroid, losartan, morphine, Bystolic and Zofran. She is on Zosyn at this time, on MiraLax,Crestor, sodium chloride, IV fluids and on Ambien. She is getting 81 mg aspirin. PHYSICAL EXAMINATION: VITAL SIGNS: On examination I find her vitals, temperature is 98.3, pulse 93, blood pressure 144/75, respirations are 20. HEENT: Head is atraumatic. Normocephalic. Pupils are reacting to light. Tongue is dry, but she had secretions, brownish. NECK: Supple. JVP is flat. LUNGS: Clear. Occasional rhonchi, otherwise clear. HEART: S1, S2 is regular. I did not appreciate any murmur. ABDOMEN: Soft, but prominent. There is diffuse pain, she complains of mostly in the left side. EXTREMITIES: Have no edema. SKIN: She did have a dressing in the right groin, which appeared unremarkable probably at the site of insertion of the catheter for her coronary angiogram. LABORATORY DATA: White count was 13 today, hemoglobin 14, hematocrit 42.1, platelet count is 260, bands are 12, lymphocytes are 13, monocytes are 24. Sodium is 134, potassium 3.6, chlorides are 98, CO of 29 and anion gap is 11. BUN is 33, creatinine is 1.1. Her UA shows ketones negative, 1+ blood, rbc 8, squamous cell 10. Stool occult blood is positive. Hepatitis screen is negative. She also had a consult with who says that CTA was done to rule out dissection as she was complaining of severe chest pain and she was found to have a 16-cm cyst and she has multiple liver cysts, states had an episode of left lower quadrant pain with vomiting, nonbloody vomitus for about 10 times; however, no abdominal pain. So at this time I have ordered a CAT scan just to make sure there is no diverticulitis or ischemic colitis going on in this patient. She does have stool guaiac positive. We will leave her on Zosyn and we will follow and I think after I saw, there was a certified surgical assistant called in for surgical consult. She has had abdominal CAT scan. We will follow that and see if we can make her better. Reji Lawson MD
--- NOTE | 2017-10-08 08:40 | CP.CCUPN ---
CCU Objective - Vital Signs / Intake & Output Vital Signs (Last 4 hours): Vital Signs Pulse Resp BP Pulse Ox 10/08/17 07:05 90 20 92/44 L 100 10/08/17 07:00 92 H 19 100 10/08/17 06:49 90 20 98/43 L 100 10/08/17 06:45 90 19 100 10/08/17 06:34 91 H 18 91/46 L 100 10/08/17 06:30 92 H 21 100 10/08/17 06:19 92 H 20 99/47 L 100 10/08/17 06:15 92 H 19 100 10/08/17 06:04 91 H 18 98/47 L 100 10/08/17 06:00 90 18 100 10/08/17 05:50 107 H 24 93/72 L 100 10/08/17 05:45 103 H 31 H 100 10/08/17 05:35 93 H 19 104/47 L 100 10/08/17 05:30 90 19 100 10/08/17 05:20 88 20 107/48 L 100 10/08/17 05:15 91 H 19 100 10/08/17 05:00 81 17 100 10/08/17 04:50 88 17 109/49 L 100 10/08/17 04:45 87 18 100 Intake and Output (Last 8hrs): Intake & Output 10/07/17 10/08/17 10/08/17 22:59 06:59 14:59 Intake Total 603.5 139.4 Output Total 700 Balance -96.5 139.4 Intake: IV 50 Intake, IV Amount 553.5 139.4 Left Distal Port Femoral 28.5 14.4 Left Medial Port Femoral 375 125 Left Proximal Port 150 Femoral Output: Gastric Amount 150 Right Nares 150 Urine 550 Urethral (Garrett) 400 Other: # Bowel Movements 0 - Medications Active Medications: Active Medications Generic Name Dose Route Start Last Admin Trade Name Freq PRN Reason Stop Dose Admin Amlodipine Besylate 10 mg 10/05/17 16:30 10/07/17 10:14 Norvasc PO 10 mg DAILY TIM Administration Aspirin 81 mg 10/05/17 10:00 10/07/17 10:13 Ecotrin PO 81 mg DAILY TIM Administration Heparin Sodium (Porcine) 5,000 units 10/04/17 22:00 10/06/17 09:20 Heparin SC 5,000 units Q12 TIM Administration Hydromorphone HCl 0.5 mg 10/08/17 02:03 Dilaudid IVP Q4H PRN Pain, moderate (4-7) Hydromorphone HCl 1 mg 10/08/17 02:03 Dilaudid IVP Q4H PRN Pain, severe (8-10) Meropenem 1 gm/ Sodium 50 mls @ 100 mls/hr 10/07/17 22:00 10/08/17 05:49 Chloride IVPB 100 mls/hr Q8H TIM Administration Metronidazole 500 mg in 100 mls @ 100 mls/hr 10/07/17 22:00 10/08/17 05:06 Flagyl IVPB 100 mls/hr Q8 TIM Administration Propofol 1,000 mg in 100 mls @ 2.381 mls/hr 10/08/17 02:19 10/08/17 05:48 Diprivan IV 30 mcg/kg/min .Q24H PRN 14.288 mls/hr TITRATE PER MD ORDER Titration Protocol 5 MCG/KG/MIN Potassium Chloride 20 meq/ 1,010 mls @ 125 mls/hr 10/08/17 03:29 10/08/17 03: 59 Sodium Chloride IV 125 mls/hr .Q8H5M TIM Administration Insulin Human Regular 0 unit 10/08/17 06:00 10/08/17 05:49 Novolin R SC Not Given Q6H TIM Protocol Isosorbide Mononitrate 60 mg 10/06/17 12:45 10/07/17 10:14 Imdur PO 60 mg DAILY TIM Administration Levothyroxine Sodium 50 mcg 10/05/17 06:30 10/07/17 06:11 Synthroid PO 50 mcg DAILY@0630 TIM Administration Losartan Potassium 100 mg 10/05/17 10:00 10/07/17 10:14 Cozaar PO 100 mg DAILY TIM Administration Nebivolol 10 mg 10/05/17 10:30 10/07/17 10:13 Bystolic PO 10 mg DAILY TIM Administration Ondansetron HCl 4 mg 10/07/17 19:28 10/07/17 20:20 Zofran Inj IVP 4 mg Q6H PRN Administration Nausea/Vomiting Pantoprazole Sodium 40 mg 10/08/17 10:00 Protonix Inj IVP DAILY TIM Polyethylene Glycol 17 gm 10/06/17 15:08 10/07/17 10:14 Miralax PO 17 gm BID PRN Administration Constipation Rosuvastatin Calcium 5 mg 10/04/17 22:00 10/07/17 22:43 Crestor PO Not Given HS TIM Zolpidem Tartrate 5 mg 10/04/17 22:00 10/04/17 23:27 Ambien PO 5 mg HS PRN Administration Insomnia - Patient Studies Lab Studies: Microbiology Studies 10/06/17 16:45 Blood Culture - Preliminary Blood NO GROWTH AFTER 24 HOURS 10/06/17 17:16 Blood Culture - Preliminary Blood NO GROWTH AFTER 24 HOURS Lab Studies 10/08/17 10/08/17 10/08/17 Range/Units 06:39 06:39 05:43 WBC 4.8 (4.8-10.8) K/uL RBC 4.06 (3.80-5.20) Mil/uL Hgb 11.8 (11.0-16.0) g/dL Hct 35.3 (34.0-47.0) % MCV 86.9 (81.0-99.0) fL MCH 29.0 (27.0-31.0) pg MCHC 33.4 (33.0-37.0) g/dL RDW 14.8 H (11.5-14.5) % Plt Count 209 (130-400) K/uL MPV 10.1 (7.2-11.7) fL Neut % (Auto) 58.4 (50.0-75.0) % Lymph % (Auto) 26.9 (20.0-40.0) % Mayes % (Auto) 14.2 H (0.0-10.0) % Eos % (Auto) 0.2 (0.0-4.0) % Baso % (Auto) 0.3 (0.0-2.0) % Neut # 2.8 (1.8-7.0) K/uL Lymph # 1.3 (1.0-4.3) K/uL Mayes # 0.7 (0.0-0.8) K/uL Eos # 0.0 (0.0-0.7) K/uL Baso # 0.0 (0.0-0.2) K/uL Neutrophils % (Manual) (50-75) % Band Neutrophils % (0-2) % Lymphocytes % (Manual) (20-40) % Monocytes % (Manual) (0-10) % Toxic Granulation Platelet Estimate (NORMAL) Large Platelets Polychromasia Hypochromasia (manual) Anisocytosis (manual) Puncture Site pCO2 (35-45) mm/Hg pO2 (80-100) mm/Hg HCO3 (21-28) mmol/L ABG pH (7.35-7.45) ABG Total CO2 (22-28) mmol/L ABG O2 Saturation (95-98) % ABG Base Excess (-2.0-3.0) mmol/L Dayron Test ABG Potassium (3.6-5.2) mmol/L A-a O2 Difference mm/Hg Respiratory Index Sodium 137 (132-148) mmol/l Chloride 106 (98-107) mmol/L Glucose (65-105) mg/dl Lactate (0.7-2.1) mmol/L Vent Mode Mechanical Rate FiO2 % Tidal Volume PEEP Potassium 3.3 L (3.6-5.2) mmol/L Carbon Dioxide 23 (22-30) mmol/L Anion Gap 12 (10-20) BUN 39 H (7-17) mg/dL Creatinine 1.4 H (0.7-1.2) mg/dL Est GFR ( Amer) 44 Est GFR (Non-Af Amer) 37 POC Glucose (mg/dL) 117 H (65-110) mg/dL Random Glucose 112 H (65-105) mg/dL Lactic Acid (0.7-2.1) mmol/L Calcium 7.6 L (8.6-10.4) mg/dl Phosphorus 3.1 (2.5-4.5) mg/dL Magnesium 1.6 (1.6-2.3) mg/dL Total Bilirubin 1.0 (0.2-1.3) mg/dL AST 16 (14-36) U/L ALT 22 (9-52) U/L Alkaline Phosphatase 54 (38-126) U/L Total Protein 5.1 L (6.3-8.3) g/dL Albumin 2.5 L (3.5-5.0) g/dL Globulin 2.6 (2.2-3.9) gm/dL Albumin/Globulin Ratio 1.0 (1.0-2.1) Amylase < 30 L D (30-110) U/L Lipase 19 L (23-300) U/L Arterial Blood Potassium (3.6-5.2) mmol/L Stool Occult Blood (NEGATIVE) Stool Leukocytes, Qual (NEGATIVE) Hepatitis A IgM Ab (NEGATIVE) Hep Bs Antigen (NEGATIVE) Hep B Core IgM Ab (NEGATIVE) Hepatitis C Antibody (NEGATIVE) Blood Type Antibody Screen 10/08/17 10/08/17 10/08/17 Range/Units 05:25 02:53 02:53 WBC (4.8-10.8) K/uL RBC (3.80-5.20) Mil/uL Hgb (11.0-16.0) g/dL Hct (34.0-47.0) % MCV (81.0-99.0) fL MCH (27.0-31.0) pg MCHC (33.0-37.0) g/dL RDW (11.5-14.5) % Plt Count (130-400) K/uL MPV (7.2-11.7) fL Neut % (Auto) (50.0-75.0) % Lymph % (Auto) (20.0-40.0) % Mayes % (Auto) (0.0-10.0) % Eos % (Auto) (0.0-4.0) % Baso % (Auto) (0.0-2.0) % Neut # (1.8-7.0) K/uL Lymph # (1.0-4.3) K/uL Mayes # (0.0-0.8) K/uL Eos # (0.0-0.7) K/uL Baso # (0.0-0.2) K/uL Neutrophils % (Manual) (50-75) % Band Neutrophils % (0-2) % Lymphocytes % (Manual) (20-40) % Monocytes % (Manual) (0-10) % Toxic Granulation Platelet Estimate (NORMAL) Large Platelets Polychromasia Hypochromasia (manual) Anisocytosis (manual) Puncture Site R bra pCO2 37 (35-45) mm/Hg pO2 95 (80-100) mm/Hg HCO3 21.3 (21-28) mmol/L ABG pH 7.35 (7.35-7.45) ABG Total CO2 21.5 L (22-28) mmol/L ABG O2 Saturation 97.6 (95-98) % ABG Base Excess -4.7 L (-2.0-3.0) mmol/L Dayron Test Na ABG Potassium 3.6 (3.6-5.2) mmol/L A-a O2 Difference 144.0 mm/Hg Respiratory Index 1.5 Sodium 143.0 136 (132-148) mmol/l Chloride 108.0 H 107 (98-107) mmol/L Glucose 120 H (65-105) mg/dl Lactate 2.0 (0.7-2.1) mmol/L Vent Mode Prvc Mechanical Rate 12 FiO2 40.0 % Tidal Volume 500 PEEP 5 Potassium 3.5 L (3.6-5.2) mmol/L Carbon Dioxide 23 (22-30) mmol/L Anion Gap 10 (10-20) BUN 40 H (7-17) mg/dL Creatinine 1.3 H (0.7-1.2) mg/dL Est GFR ( Amer) 48 Est GFR (Non-Af Amer) 40 POC Glucose (mg/dL) (65-110) mg/dL Random Glucose 120 H (65-105) mg/dL Lactic Acid 2.6 H (0.7-2.1) mmol/L Calcium 7.5 L (8.6-10.4) mg/dl Phosphorus (2.5-4.5) mg/dL Magnesium (1.6-2.3) mg/dL Total Bilirubin 1.3 (0.2-1.3) mg/dL AST 20 (14-36) U/L ALT 22 (9-52) U/L Alkaline Phosphatase 50 (38-126) U/L Total Protein 5.4 L (6.3-8.3) g/dL Albumin 2.7 L D (3.5-5.0) g/dL Globulin 2.7 (2.2-3.9) gm/dL Albumin/Globulin Ratio 1.0 (1.0-2.1) Amylase (30-110) U/L Lipase (23-300) U/L Arterial Blood Potassium 3.6 (3.6-5.2) mmol/L Stool Occult Blood (NEGATIVE) Stool Leukocytes, Qual (NEGATIVE) Hepatitis A IgM Ab (NEGATIVE) Hep Bs Antigen (NEGATIVE) Hep B Core IgM Ab (NEGATIVE) Hepatitis C Antibody (NEGATIVE) Blood Type Antibody Screen 10/08/17 10/08/17 10/08/17 Range/Units 02:53 02:19 00:27 WBC 4.0 L D (4.8-10.8) K/uL RBC 3.92 (3.80-5.20) Mil/uL Hgb 11.1 D (11.0-16.0) g/dL Hct 34.0 (34.0-47.0) % MCV 86.8 (81.0-99.0) fL MCH 28.3 (27.0-31.0) pg MCHC 32.6 L (33.0-37.0) g/dL RDW 14.8 H (11.5-14.5) % Plt Count 245 (130-400) K/uL MPV 10.1 (7.2-11.7) fL Neut % (Auto) 55.8 (50.0-75.0) % Lymph % (Auto) 32.4 (20.0-40.0) % Mayes % (Auto) 11.5 H (0.0-10.0) % Eos % (Auto) 0.1 (0.0-4.0) % Baso % (Auto) 0.2 (0.0-2.0) % Neut # 2.2 (1.8-7.0) K/uL Lymph # 1.3 (1.0-4.3) K/uL Mayes # 0.5 (0.0-0.8) K/uL Eos # 0.0 (0.0-0.7) K/uL Baso # 0.0 (0.0-0.2) K/uL Neutrophils % (Manual) (50-75) % Band Neutrophils % (0-2) % Lymphocytes % (Manual) (20-40) % Monocytes % (Manual) (0-10) % Toxic Granulation Platelet Estimate (NORMAL) Large Platelets Polychromasia Hypochromasia (manual) Anisocytosis (manual) Puncture Site R bra pCO2 32 L (35-45) mm/Hg pO2 82 (80-100) mm/Hg HCO3 21.3 (21-28) mmol/L ABG pH 7.39 (7.35-7.45) ABG Total CO2 20.4 L (22-28) mmol/L ABG O2 Saturation 96.4 (95-98) % ABG Base Excess -4.6 L (-2.0-3.0) mmol/L Dayron Test Na ABG Potassium 3.0 L (3.6-5.2) mmol/L A-a O2 Difference 163.0 mm/Hg Respiratory Index 2.0 Sodium 140.0 (132-148) mmol/l Chloride 111.0 H (98-107) mmol/L Glucose 126 H (65-105) mg/dl Lactate 1.8 (0.7-2.1) mmol/L Vent Mode Prvc Mechanical Rate 12 FiO2 40.0 % Tidal Volume 500 PEEP 5 Potassium (3.6-5.2) mmol/L Carbon Dioxide (22-30) mmol/L Anion Gap (10-20) BUN (7-17) mg/dL Creatinine (0.7-1.2) mg/dL Est GFR ( Amer) Est GFR (Non-Af Amer) POC Glucose (mg/dL) (65-110) mg/dL Random Glucose (65-105) mg/dL Lactic Acid (0.7-2.1) mmol/L Calcium (8.6-10.4) mg/dl Phosphorus (2.5-4.5) mg/dL Magnesium (1.6-2.3) mg/dL Total Bilirubin (0.2-1.3) mg/dL AST (14-36) U/L ALT (9-52) U/L Alkaline Phosphatase (38-126) U/L Total Protein (6.3-8.3) g/dL Albumin (3.5-5.0) g/dL Globulin (2.2-3.9) gm/dL Albumin/Globulin Ratio (1.0-2.1) Amylase (30-110) U/L Lipase (23-300) U/L Arterial Blood Potassium 3.0 L (3.6-5.2) mmol/L Stool Occult Blood (NEGATIVE) Stool Leukocytes, Qual (NEGATIVE) Hepatitis A IgM Ab (NEGATIVE) Hep Bs Antigen (NEGATIVE) Hep B Core IgM Ab (NEGATIVE) Hepatitis C Antibody (NEGATIVE) Blood Type O POSITIVE Antibody Screen Negative 10/07/17 10/07/17 10/07/17 Range/Units Unknown 19:43 13:17 WBC (4.8-10.8) K/uL RBC (3.80-5.20) Mil/uL Hgb (11.0-16.0) g/dL Hct (34.0-47.0) % MCV (81.0-99.0) fL MCH (27.0-31.0) pg MCHC (33.0-37.0) g/dL RDW (11.5-14.5) % Plt Count (130-400) K/uL MPV (7.2-11.7) fL Neut % (Auto) (50.0-75.0) % Lymph % (Auto) (20.0-40.0) % Mayes % (Auto) (0.0-10.0) % Eos % (Auto) (0.0-4.0) % Baso % (Auto) (0.0-2.0) % Neut # (1.8-7.0) K/uL Lymph # (1.0-4.3) K/uL Mayes # (0.0-0.8) K/uL Eos # (0.0-0.7) K/uL Baso # (0.0-0.2) K/uL Neutrophils % (Manual) (50-75) % Band Neutrophils % (0-2) % Lymphocytes % (Manual) (20-40) % Monocytes % (Manual) (0-10) % Toxic Granulation Platelet Estimate (NORMAL) Large Platelets Polychromasia Hypochromasia (manual) Anisocytosis (manual) Puncture Site pCO2 (35-45) mm/Hg pO2 (80-100) mm/Hg HCO3 (21-28) mmol/L ABG pH (7.35-7.45) ABG Total CO2 (22-28) mmol/L ABG O2 Saturation (95-98) % ABG Base Excess (-2.0-3.0) mmol/L Dayron Test ABG Potassium (3.6-5.2) mmol/L A-a O2 Difference mm/Hg Respiratory Index Sodium (132-148) mmol/l Chloride (98-107) mmol/L Glucose (65-105) mg/dl Lactate (0.7-2.1) mmol/L Vent Mode Mechanical Rate FiO2 % Tidal Volume PEEP Potassium (3.6-5.2) mmol/L Carbon Dioxide (22-30) mmol/L Anion Gap (10-20) BUN (7-17) mg/dL Creatinine (0.7-1.2) mg/dL Est GFR ( Amer) Est GFR (Non-Af Amer) POC Glucose (mg/dL) (65-110) mg/dL Random Glucose (65-105) mg/dL Lactic Acid 4.1 H* (0.7-2.1) mmol/L Calcium (8.6-10.4) mg/dl Phosphorus (2.5-4.5) mg/dL Magnesium (1.6-2.3) mg/dL Total Bilirubin (0.2-1.3) mg/dL AST (14-36) U/L ALT (9-52) U/L Alkaline Phosphatase (38-126) U/L Total Protein (6.3-8.3) g/dL Albumin (3.5-5.0) g/dL Globulin (2.2-3.9) gm/dL Albumin/Globulin Ratio (1.0-2.1) Amylase (30-110) U/L Lipase (23-300) U/L Arterial Blood Potassium (3.6-5.2) mmol/L Stool Occult Blood Positive H (NEGATIVE) Stool Leukocytes, Qual Negative (NEGATIVE) Hepatitis A IgM Ab (NEGATIVE) Hep Bs Antigen (NEGATIVE) Hep B Core IgM Ab (NEGATIVE) Hepatitis C Antibody (NEGATIVE) Blood Type Antibody Screen 10/07/17 10/07/17 10/07/17 Range/Units 11:35 06:45 06:45 WBC (4.8-10.8) K/uL RBC (3.80-5.20) Mil/uL Hgb (11.0-16.0) g/dL Hct (34.0-47.0) % MCV (81.0-99.0) fL MCH (27.0-31.0) pg MCHC (33.0-37.0) g/dL RDW (11.5-14.5) % Plt Count (130-400) K/uL MPV (7.2-11.7) fL Neut % (Auto) (50.0-75.0) % Lymph % (Auto) (20.0-40.0) % Mayes % (Auto) (0.0-10.0) % Eos % (Auto) (0.0-4.0) % Baso % (Auto) (0.0-2.0) % Neut # (1.8-7.0) K/uL Lymph # (1.0-4.3) K/uL Mayes # (0.0-0.8) K/uL Eos # (0.0-0.7) K/uL Baso # (0.0-0.2) K/uL Neutrophils % (Manual) 51 (50-75) % Band Neutrophils % 12 H* (0-2) % Lymphocytes % (Manual) 13 L (20-40) % Monocytes % (Manual) 24 H (0-10) % Toxic Granulation Present Platelet Estimate Normal (NORMAL) Large Platelets Present Polychromasia Slight Hypochromasia (manual) Slight Anisocytosis (manual) Slight Puncture Site pCO2 (35-45) mm/Hg pO2 (80-100) mm/Hg HCO3 (21-28) mmol/L ABG pH (7.35-7.45) ABG Total CO2 (22-28) mmol/L ABG O2 Saturation (95-98) % ABG Base Excess (-2.0-3.0) mmol/L Dayron Test ABG Potassium (3.6-5.2) mmol/L A-a O2 Difference mm/Hg Respiratory Index Sodium (132-148) mmol/l Chloride (98-107) mmol/L Glucose (65-105) mg/dl Lactate (0.7-2.1) mmol/L Vent Mode Mechanical Rate FiO2 % Tidal Volume PEEP Potassium (3.6-5.2) mmol/L Carbon Dioxide (22-30) mmol/L Anion Gap (10-20) BUN (7-17) mg/dL Creatinine (0.7-1.2) mg/dL Est GFR ( Amer) Est GFR (Non-Af Amer) POC Glucose (mg/dL) 151 H (65-110) mg/dL Random Glucose (65-105) mg/dL Lactic Acid (0.7-2.1) mmol/L Calcium (8.6-10.4) mg/dl Phosphorus (2.5-4.5) mg/dL Magnesium (1.6-2.3) mg/dL Total Bilirubin (0.2-1.3) mg/dL AST (14-36) U/L ALT (9-52) U/L Alkaline Phosphatase (38-126) U/L Total Protein (6.3-8.3) g/dL Albumin (3.5-5.0) g/dL Globulin (2.2-3.9) gm/dL Albumin/Globulin Ratio (1.0-2.1) Amylase (30-110) U/L Lipase (23-300) U/L Arterial Blood Potassium (3.6-5.2) mmol/L Stool Occult Blood (NEGATIVE) Stool Leukocytes, Qual (NEGATIVE) Hepatitis A IgM Ab Negative (NEGATIVE) Hep Bs Antigen Negative (NEGATIVE) Hep B Core IgM Ab Negative (NEGATIVE) Hepatitis C Antibody Negative (NEGATIVE) Blood Type Antibody Screen Laboratory Results - last 24 hr 10/07/17 10/07/17 10/07/17 06:45 06:45 11:35 WBC RBC Hgb Hct MCV MCH MCHC RDW Plt Count MPV Neut % (Auto) Lymph % (Auto) Mayes % (Auto) Eos % (Auto) Baso % (Auto) Neut # Lymph # Mayes # Eos # Baso # Neutrophils % (Manual) 51 Band Neutrophils % 12 H* Lymphocytes % (Manual) 13 L Monocytes % (Manual) 24 H Toxic Granulation Present Platelet Estimate Normal Large Platelets Present Polychromasia Slight Hypochromasia (manual) Slight Anisocytosis (manual) Slight Puncture Site pCO2 pO2 HCO3 ABG pH ABG Total CO2 ABG O2 Saturation ABG Base Excess Dayron Test ABG Potassium A-a O2 Difference Respiratory Index Sodium Chloride Glucose Lactate Vent Mode Mechanical Rate FiO2 Tidal Volume PEEP Potassium Carbon Dioxide Anion Gap BUN Creatinine Est GFR ( Amer) Est GFR (Non-Af Amer) POC Glucose (mg/dL) 151 H Random Glucose Lactic Acid Calcium Phosphorus Magnesium Total Bilirubin AST ALT Alkaline Phosphatase Total Protein Albumin Globulin Albumin/Globulin Ratio Amylase Lipase Arterial Blood Potassium Stool Occult Blood Stool Leukocytes, Qual Hepatitis A IgM Ab Negative Hep Bs Antigen Negative Hep B Core IgM Ab Negative Hepatitis C Antibody Negative Blood Type Antibody Screen 10/07/17 10/07/17 10/07/17 13:17 19:43 Unknown WBC RBC Hgb Hct MCV MCH MCHC RDW Plt Count MPV Neut % (Auto) Lymph % (Auto) Mayes % (Auto) Eos % (Auto) Baso % (Auto) Neut # Lymph # Mayes # Eos # Baso # Neutrophils % (Manual) Band Neutrophils % Lymphocytes % (Manual) Monocytes % (Manual) Toxic Granulation Platelet Estimate Large Platelets Polychromasia Hypochromasia (manual) Anisocytosis (manual) Puncture Site pCO2 pO2 HCO3 ABG pH ABG Total CO2 ABG O2 Saturation ABG Base Excess Dayron Test ABG Potassium A-a O2 Difference Respiratory Index Sodium Chloride Glucose Lactate Vent Mode Mechanical Rate FiO2 Tidal Volume PEEP Potassium Carbon Dioxide Anion Gap BUN Creatinine Est GFR ( Amer) Est GFR (Non-Af Amer) POC Glucose (mg/dL) Random Glucose Lactic Acid 4.1 H* Calcium Phosphorus Magnesium Total Bilirubin AST ALT Alkaline Phosphatase Total Protein Albumin Globulin Albumin/Globulin Ratio Amylase Lipase Arterial Blood Potassium Stool Occult Blood Positive H Stool Leukocytes, Qual Negative Hepatitis A IgM Ab Hep Bs Antigen Hep B Core IgM Ab Hepatitis C Antibody Blood Type Antibody Screen 10/08/17 10/08/17 10/08/17 00:27 02:19 02:53 WBC 4.0 L D RBC 3.92 Hgb 11.1 D Hct 34.0 MCV 86.8 MCH 28.3 MCHC 32.6 L RDW 14.8 H Plt Count 245 MPV 10.1 Neut % (Auto) 55.8 Lymph % (Auto) 32.4 Mayes % (Auto) 11.5 H Eos % (Auto) 0.1 Baso % (Auto) 0.2 Neut # 2.2 Lymph # 1.3 Mayes # 0.5 Eos # 0.0 Baso # 0.0 Neutrophils % (Manual) Band Neutrophils % Lymphocytes % (Manual) Monocytes % (Manual) Toxic Granulation Platelet Estimate Large Platelets Polychromasia Hypochromasia (manual) Anisocytosis (manual) Puncture Site R bra pCO2 32 L pO2 82 HCO3 21.3 ABG pH 7.39 ABG Total CO2 20.4 L ABG O2 Saturation 96.4 ABG Base Excess -4.6 L Dayron Test Na ABG Potassium 3.0 L A-a O2 Difference 163.0 Respiratory Index 2.0 Sodium 140.0 Chloride 111.0 H Glucose 126 H Lactate 1.8 Vent Mode Prvc Mechanical Rate 12 FiO2 40.0 Tidal Volume 500 PEEP 5 Potassium Carbon Dioxide Anion Gap BUN Creatinine Est GFR ( Amer) Est GFR (Non-Af Amer) POC Glucose (mg/dL) Random Glucose Lactic Acid Calcium Phosphorus Magnesium Total Bilirubin AST ALT Alkaline Phosphatase Total Protein Albumin Globulin Albumin/Globulin Ratio Amylase Lipase Arterial Blood Potassium 3.0 L Stool Occult Blood Stool Leukocytes, Qual Hepatitis A IgM Ab Hep Bs Antigen Hep B Core IgM Ab Hepatitis C Antibody Blood Type O POSITIVE Antibody Screen Negative 10/08/17 10/08/17 10/08/17 02:53 02:53 05:25 WBC RBC Hgb Hct MCV MCH MCHC RDW Plt Count MPV Neut % (Auto) Lymph % (Auto) Mayes % (Auto) Eos % (Auto) Baso % (Auto) Neut # Lymph # Mayes # Eos # Baso # Neutrophils % (Manual) Band Neutrophils % Lymphocytes % (Manual) Monocytes % (Manual) Toxic Granulation Platelet Estimate Large Platelets Polychromasia Hypochromasia (manual) Anisocytosis (manual) Puncture Site R bra pCO2 37 pO2 95 HCO3 21.3 ABG pH 7.35 ABG Total CO2 21.5 L ABG O2 Saturation 97.6 ABG Base Excess -4.7 L Dayron Test Na ABG Potassium 3.6 A-a O2 Difference 144.0 Respiratory Index 1.5 Sodium 136 143.0 Chloride 107 108.0 H Glucose 120 H Lactate 2.0 Vent Mode Prvc Mechanical Rate 12 FiO2 40.0 Tidal Volume 500 PEEP 5 Potassium 3.5 L Carbon Dioxide 23 Anion Gap 10 BUN 40 H Creatinine 1.3 H Est GFR ( Amer) 48 Est GFR (Non-Af Amer) 40 POC Glucose (mg/dL) Random Glucose 120 H Lactic Acid 2.6 H Calcium 7.5 L Phosphorus Magnesium Total Bilirubin 1.3 AST 20 ALT 22 Alkaline Phosphatase 50 Total Protein 5.4 L Albumin 2.7 L D Globulin 2.7 Albumin/Globulin Ratio 1.0 Amylase Lipase Arterial Blood Potassium 3.6 Stool Occult Blood Stool Leukocytes, Qual Hepatitis A IgM Ab Hep Bs Antigen Hep B Core IgM Ab Hepatitis C Antibody Blood Type Antibody Screen 10/08/17 10/08/17 10/08/17 05:43 06:39 06:39 WBC 4.8 RBC 4.06 Hgb 11.8 Hct 35.3 MCV 86.9 MCH 29.0 MCHC 33.4 RDW 14.8 H Plt Count 209 MPV 10.1 Neut % (Auto) 58.4 Lymph % (Auto) 26.9 Mayes % (Auto) 14.2 H Eos % (Auto) 0.2 Baso % (Auto) 0.3 Neut # 2.8 Lymph # 1.3 Mayes # 0.7 Eos # 0.0 Baso # 0.0 Neutrophils % (Manual) Band Neutrophils % Lymphocytes % (Manual) Monocytes % (Manual) Toxic Granulation Platelet Estimate Large Platelets Polychromasia Hypochromasia (manual) Anisocytosis (manual) Puncture Site pCO2 pO2 HCO3 ABG pH ABG Total CO2 ABG O2 Saturation ABG Base Excess Dayron Test ABG Potassium A-a O2 Difference Respiratory Index Sodium 137 Chloride 106 Glucose Lactate Vent Mode Mechanical Rate FiO2 Tidal Volume PEEP Potassium 3.3 L Carbon Dioxide 23 Anion Gap 12 BUN 39 H Creatinine 1.4 H Est GFR ( Amer) 44 Est GFR (Non-Af Amer) 37 POC Glucose (mg/dL) 117 H Random Glucose 112 H Lactic Acid Calcium 7.6 L Phosphorus 3.1 Magnesium 1.6 Total Bilirubin 1.0 AST 16 ALT 22 Alkaline Phosphatase 54 Total Protein 5.1 L Albumin 2.5 L Globulin 2.6 Albumin/Globulin Ratio 1.0 Amylase < 30 L D Lipase 19 L Arterial Blood Potassium Stool Occult Blood Stool Leukocytes, Qual Hepatitis A IgM Ab Hep Bs Antigen Hep B Core IgM Ab Hepatitis C Antibody Blood Type Antibody Screen Fingerstick Blood Sugar Results: 117 Critical Care Progress Note - Nutrition Nutrition: Nutrition Category Date Time Status NPO Diet [DIET] Diets 10/07/17 Dinner Active Assessment/Plan (1) Ischemic necrosis of small bowel Assessment and plan: 77yo F. PMHx HTN, CAD, Bradicardia, COPD, Breast Cancer, s/p lumpectomy and radiation, Anxiety/Depression, arthritis, DM II, HLD, Hypothyroidism, Severe Aortic Stenosis. p/w chest pain s/p PCI with non-occlusive CAD. hospital course c/b melanotic stool, found to have ischemic small bowel. underwent ex-lap with small bowel resection and primary anastamosis. Neuro: Pulm: CV: Hem: Renal: Endo: GI: ID: DVT proph - GI proph - garrett for strict I/O's during acute illness Code status - Critical Care Time spent Multi-disciplinary rounds were performed with house staff, nursing, speech therapy, respiratory therapy, pharmacy and nutrition with integrated input from the primary team/attending and other consulting services. The documented time is cumulative and includes review of patient data/exams/labs/chart review and examination of the patient on rounds and throughout the day; time is exclusive of any procedures or teaching time. Current Visit: Yes Status: Acute
--- NOTE | 2017-10-08 09:25 | RAD ---
HISTORY: NGT position COMPARISON: 10/06/2017 FINDINGS: LUNGS: No active pulmonary disease. PLEURA: No significant pleural effusion identified, no pneumothorax apparent. CARDIOVASCULAR: Normal heart size. Sternotomy wires. CABG. Permanent pacemaker. Nasogastric tube extends well below the diaphragm. OSSEOUS STRUCTURES: No significant abnormalities. VISUALIZED UPPER ABDOMEN: Normal. OTHER FINDINGS: None. IMPRESSION: Nasogastric tube in grossly appropriate position.
--- NOTE | 2017-10-08 09:57 | RAD ---
HISTORY: post op, L fem TLC placement COMPARISON: 10/07/2017 FINDINGS: LUNGS: No pulmonary infiltrate. Calcified granuloma mid right lung. PLEURA: No significant pleural effusion identified, no pneumothorax apparent. CARDIOVASCULAR: Normal heart size. Status post CABG. Permanent pacemaker. ET tube and NG tube unchanged. OSSEOUS STRUCTURES: No significant abnormalities. VISUALIZED UPPER ABDOMEN: Normal. OTHER FINDINGS: None. IMPRESSION: No acute infiltrate. Lines and tubes unchanged.
--- NOTE | 2017-10-08 10:00 | CP.PCM.PN ---
Subjective - Date & Time of Evaluation Date of Evaluation: 10/08/17 Time of Evaluation: 09:30 - Subjective Subjective: Medical Attending Note: Patient seen and examined this morning. No family present at bedside. Patient is arousable to both tactile and voice. Patient pushing me when I check her abdomen. No family present at bedside. Patient is on sedation. She is making about 40 ml/hour. Unable to review ROS secondary clinical condition. Objective - Vital Signs/Intake and Output Vital Signs (last 24 hours): Temp Pulse Resp BP Pulse Ox 99.1 F 95 H 16 91/43 L 100 10/08/17 08:00 10/08/17 08:50 10/08/17 08:50 10/08/17 08:50 10/08/17 08:50 Intake and Output: 10/08/17 10/08/17 06:59 18:59 Intake Total 603.5 189.4 Output Total 700 Balance -96.5 189.4 - Medications Medications: Current Medications Amlodipine Besylate (Norvasc) 10 mg PO DAILY [facility] Last Admin: 10/07/17 10:14 Dose: 10 mg Aspirin (Ecotrin) 81 mg PO DAILY [facility] Last Admin: 10/07/17 10:13 Dose: 81 mg Heparin Sodium (Porcine) (Heparin) 5,000 units SC Q12 [facility] Last Admin: 10/06/17 09:20 Dose: 5,000 units Hydromorphone HCl (Dilaudid) 0.5 mg IVP Q4H PRN PRN Reason: Pain, moderate (4-7) Last Admin: 10/08/17 08:41 Dose: 0.5 mg Hydromorphone HCl (Dilaudid) 1 mg IVP Q4H PRN PRN Reason: Pain, severe (8-10) Meropenem 1 gm/ Sodium (Chloride) 50 mls @ 100 mls/hr IVPB Q8H [facility] Last Admin: 10/08/17 05:49 Dose: 100 mls/hr Metronidazole (Flagyl) 500 mg in 100 mls @ 100 mls/hr IVPB Q8 [facility] Last Admin: 10/08/17 05:06 Dose: 100 mls/hr Propofol (Diprivan) 1,000 mg in 100 mls @ 2.381 mls/hr IV .Q24H PRN; Protocol; 5 MCG/KG/MIN PRN Reason: TITRATE PER MD ORDER Last Titration: 10/08/17 08:59 Dose: 252 mcg/kg/min, 120.021 mls/hr Potassium Chloride 20 meq/ (Sodium Chloride) 1,010 mls @ 125 mls/hr IV .Q8H5M [facility] Last Admin: 10/08/17 03:59 Dose: 125 mls/hr Insulin Human Regular (Novolin R) 0 unit SC Q6H TIM PRN Reason: Protocol Last Admin: 10/08/17 05:49 Dose: Not Given Isosorbide Mononitrate (Imdur) 60 mg PO DAILY [facility] Last Admin: 10/07/17 10:14 Dose: 60 mg Levothyroxine Sodium (Synthroid) 50 mcg PO DAILY@0630 [facility] Last Admin: 10/07/17 06:11 Dose: 50 mcg Losartan Potassium (Cozaar) 100 mg PO DAILY [facility] Last Admin: 10/07/17 10:14 Dose: 100 mg Nebivolol (Bystolic) 10 mg PO DAILY [facility] Last Admin: 10/07/17 10:13 Dose: 10 mg Ondansetron HCl (Zofran Inj) 4 mg IVP Q6H PRN PRN Reason: Nausea/Vomiting Last Admin: 10/07/17 20:20 Dose: 4 mg Pantoprazole Sodium (Protonix Inj) 40 mg IVP DAILY [facility] Last Admin: 10/08/17 09:05 Dose: 40 mg Polyethylene Glycol (Miralax) 17 gm PO BID PRN PRN Reason: Constipation Last Admin: 10/07/17 10:14 Dose: 17 gm Rosuvastatin Calcium (Crestor) 5 mg PO HS [facility] Last Admin: 10/07/17 22:43 Dose: Not Given Zolpidem Tartrate (Ambien) 5 mg PO HS PRN PRN Reason: Insomnia Last Admin: 10/04/17 23:27 Dose: 5 mg - Labs Labs: 10/08/17 06:39 10/08/17 06:39 PT 12.2 SECONDS (9.7-12.2) 10/04/17 18:30 INR 1.1 10/04/17 18:30 APTT 29 SECONDS (21-34) 10/04/17 18:30 - Constitutional Appears: In Acute Distress, Chronically Ill - Head Exam Head Exam: NORMAL INSPECTION Additional comments: +NGT tube - Eye Exam Eye Exam: EOMI - ENT Exam ENT Exam: Mucous Membranes Moist - Respiratory Exam Respiratory Exam: Rales, NORMAL BREATHING PATTERN. absent: Stridor - Cardiovascular Exam Cardiovascular Exam: Tachycardia, +S1, +S2 - GI/Abdominal Exam GI & Abdominal Exam: Distended, Soft, Tenderness, Hypoactive Bowel Sounds. absent: Firm, Rigid Additional comments: Dressing midline: clean/dry/intact - Exam Additional comments: + garrett - Extremities Exam Extremities Exam: absent: Pedal Edema, Tenderness - Neurological Exam Neurological Exam: Awake - Skin Skin Exam: Dry, Intact, Normal Color, Warm Assessment and Plan - Assessment and Plan (Free Text) Assessment: Assessment/Plan 1. Bowel Ischemia Abdominal Pain Abdominal Aorta Aneurysm * General surgery: Dr. Hinton on consult-->given LLQ abdominal pain * 10/08/17: Exploratory laparotomy, small bowel resection and primary anastomosis. EBL: 100; No Drains * Vascular surgery consult: Dr. Inman to follow for evaluation--> given aborminal aorta focal contained dissection * CT Dissection protocol (10/04/17): No evidence of thoracic aortic aneurysm, dissection, or rupture. No acute pulmonary embolism, Hepatic cysts, further findings available in the report including. Focal aneurysmal dilatation of infrarenal abdominal aorta measuring 2.6cm * Zosyn 2.25gm IVPB Q8H (10/07/17-10/07/17) * Start Meropenem 1gram IVPB Q 8H (10/07/17) * Start Flagyl 500mg IVPB Q8H (active since 10/07/17) * CT abdomen/pelvis PO (10/07/17); Small bowel pneumatosis and portal venous gas concerning for bowel ischemia and necrosis. Multiple liver cysts. Nonobstructing calcifications in the left kidney. 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 Carvajal given results of CT Abdomen/Pelvis PO contrast; resident spoke with surgery resident in light of new CT results. Patient had NGT tube placed removed 1.7 Liter of Feculent Material and had enema prior wherein there was melena. * NGT tube 10/07/17-->brownish matter * Has Garrett * on Sedation * Monitor urine output 2. Chest Pain New LBBB History of Coronary Artery Disease History of CABG History of Diabetes Lipid Disorder History of Hypertension History of Severe Aortic Stenosis History of Pacemaker; prior Sick Sinus syndrome * Cardiology (Dr. Childs) on board-->help appreciated; Dr. Childs is away this weekend; Dr Evangelista is covering Dr. Childs * Cardiac cath (10/06/17) completed; discussed with Dr. Childs including RCA occlusion about 50%-->will need intervention in future; Awaiting official report in EMR * Echocardiogram (10/06/17): left ventricular function is normal, left ventricular ejection fraction is within the normal range. No regional wall motion abnormalities noted. Left atrium is mildly dilated. Mild to Moderate valvular aortic stenosis. Calculated aortic valve area is 1.1cm squared. Donna regurgitation is mild to moderate. * Prior cardiac workup: * Holter in 2017 showed NSR with max HR 121, SVT at HR of 146 and rare VPC, isolated APC. * Cardiac Cath in 2015 showed distal main coronary artery 70-80% concentric stenosis mid LAD 70-80% stenosis, RCA 20-30% non-obstructing stenosis, and large diagonal branch 85% proximal stenosis. with LVEF of 60%. Basal inferior wall akinetic. P * revious ECHO showed borderline concentric LVH with grade I abnormal relaxation pattern, severe aortic stenosis, mild mitral regurg, and mild to moderate pulmonic regurg. LVEF was 60-65%. History of pacemaker placement per chart review. * CT Dissection protocol (10/04/17): No evidence of thoracic aortic aneurysm, dissection, or rupture. No acute pulmonary embolism, Hepatic cysts, further findings available in the report inclduing Focal aneurysmal dilatation of infrarenal abdominal aorta measuring 2.6cm * Aspirin on hold given melena 10/07/17 * Elevated probnp: 1580 * CARLYN: 7 * T, cholestrol: 159, LDL: 91, HDL: 41 * [id number]: 7.1 Cardiac Meds: * Aspirin on hold 10/07/17 * Crestor 5mg POqHS on hold 10/07/17 * Bystolic 10mg PO daily on hold 10/08/17 * Cozaar 100mg PO daily on hold 10/08/17 * Imdur 60mg PO daily on hold 10/08/17 * Norvasc 10mg PO dailyon hold 10/08/17 3. Bandemia * Infectious Disease (Dr. Lawson) on the case-->help appreciated * Code sepsis 10/07/17 * Blood cultures (10/06/17): No growth after 24hours X2 * Blood cultures (10/07/17): pending * Urine culture (10/07/17): pending * Stool Culture (10/07/17): pending * Ova and Parasite (10/07/17): pending * Zosyn 2.25gm IVPB Q8H (10/07/17-10/07/17) * Start Meropenem 1gram IVPB Q 8H (10/07/17) * Start Flagyl 500mg IVPB Q8H (active since 10/07/17) * Lactic acid: 2.4 (10/05/17)-->1.8 (10/06/17)-->4.1 (10/07/17)-->2.6 (10/08/17)--> 2.2 (10/08/17) 4. Melena * Occult blood 10/07/17 * stool leukocytes: negative * C. diff 10/07/17: pending * Stool Culture (10/07/17): pending * Ova and Parasite (10/07/17): pending * Aspirin and Heparin dvt discontinued 10/07/17 in light of melena * Patient had enema earlier which she has bowel movement-->had stool collected and studies collected; I spoke with Nurse Qi wherein the stool appeared melanotic 10/07/17 5. History of Chronic Constipation History of Liver cysts * GI (Dr. Boland) on case-->had signed off * Given patient is asymptomatic and appearance of lesions on imaging consistent with cystic disease, no further workup is indicated at this time. If patient becomes symptomatic, there is consideration for surgical intervention. * Maintain bowel regimen to prevent constipation * Suggest additional outpatient follow up and age appropriate screening colonoscopy if patient willing to undergo procedure. No further planned GI intervention * hepatitis panel: negative * Please see #1 for further details. 6. History of Hypothyroidism * TSH: 2.92; Free T4: 1.49 * Synthroid 50mcg POdaily 7. History of Breast Cancer * patient completed lumpectomy * She is being following serially * Patient is not on any chemotherapeutic 8. Prophylactic care * Anticoagulation held given melena 10/07/17 * Aspirin held given melena 10/07/17 * Palliative Care consult given patient wanted to discuss code status initially during hospitalization * Patient is in the critical care unit following emergent surgery for bowel ischemia.
--- NOTE | 2017-10-08 10:10 | CP.PCM.CON ---
History of Present Illness - History of Present Illness History of Present Illness: Vascular 77F w/PMH of HTN, HLD, DM, CAD, CABG, Hx of Breast Cancer (s/p lumpectomy) and Hypothyroidism consulted for LLQ ab pain. Pt reports diffuse abdominal pain x 3 days. Ab pain is constant, severe, non radiating, sharp. Admits to no BM x 3 days (usually goes daily), poor appetite, spitting up brown liquid, abdominal bloating, nausea, chills, difficulty urinating. Denies fevers, changes in weight, flatus, chest pain, SOB, other complaints. Pt had enema with no resolution. CT showed to have mesenteric ischemia. Pt went to OR and had SB resected with anastomosis. Pt is curretly intubated. Vascula is consulted to evaluate for mesenteric ischemia. PMH: HTN, HLD, DM, CAD, CABG, Hx of Breast Cancer (s/p lumpectomy) and Hypothyroidism PSH: Pacemaker (placed on the right due to Hx Breast Cancer) All: NKDA SH: Denies ETOH, tobacco, illicit drug use Review of Systems - Review of Systems Review of Systems: See HPI Past Patient History - Past Medical History & Family History Past Medical History?: Yes - Past Social History Smoking Status: Former Smoker Alcohol: None Drugs: Denies Home Situation {Lives}: With Family - CARDIAC Hx Cardia Arrhythmia: Yes Hx Hypercholesterolemia: Yes Hx Hypertension: Yes Hx Pacemaker: Yes - PULMONARY Hx Respiratory Disorders: Yes (SOB SOMETIMES) - NEUROLOGICAL Hx Neurological Disorder: Yes - HEENT Hx HEENT Problems: Yes Hx Cataracts: Yes (removed bilateral 2011) - RENAL Hx Chronic Kidney Disease: No - ENDOCRINE/METABOLIC Hx Hypothyroidism: Yes - HEMATOLOGICAL/ONCOLOGICAL Hx Blood Disorders: Yes Hx Cancer: Yes (LEFT BREAST-RADIATION TX. DONE) - INTEGUMENTARY Hx Dermatological Problems: Yes Other/Comment: CANCER LEFT BREAST-LUMPECTOMY DONE - MUSCULOSKELETAL/RHEUMATOLOGICAL Hx Arthritis: Yes (KNEE PAIN) - GASTROINTESTINAL Hx Gastrointestinal Disorders: No - GENITOURINARY/GYNECOLOGICAL Hx Genitourinary Disorders: No - PSYCHIATRIC Hx Anxiety: Yes Hx Depression: Yes Hx Substance Use: No - SURGICAL HISTORY Hx Coronary Artery Bypass Graft: Yes (jan 17 2013 TRIPLE) Hx Coronary Stent: Yes Hx Tonsillectomy: Yes - ANESTHESIA Hx Anesthesia: Yes Hx Anesthesia Reactions: No Hx Malignant Hyperthermia: No Meds Allergies/Adverse Reactions: Allergies Allergy/AdvReac Type Severity Reaction Status Date / Time No Known Allergies Allergy Verified 10/04/17 17:45 - Medications Medications: Current Medications Amlodipine Besylate (Norvasc) 10 mg PO DAILY [facility] [place] Last Admin: 10/07/17 10:14 Dose: 10 mg Aspirin (Ecotrin) 81 mg PO DAILY [facility] [place] Last Admin: 10/07/17 10:13 Dose: 81 mg Heparin Sodium (Porcine) (Heparin) 5,000 units SC Q12 [facility] [place] Last Admin: 10/06/17 09:20 Dose: 5,000 units Hydromorphone HCl (Dilaudid) 0.5 mg IVP Q4H PRN PRN Reason: Pain, moderate (4-7) Last Admin: 10/08/17 08:41 Dose: 0.5 mg Hydromorphone HCl (Dilaudid) 1 mg IVP Q4H PRN PRN Reason: Pain, severe (8-10) Meropenem 1 gm/ Sodium (Chloride) 50 mls @ 100 mls/hr IVPB Q8H [facility] Last Admin: 10/08/17 05:49 Dose: 100 mls/hr Metronidazole (Flagyl) 500 mg in 100 mls @ 100 mls/hr IVPB Q8 [facility] Last Admin: 10/08/17 05:06 Dose: 100 mls/hr Propofol (Diprivan) 1,000 mg in 100 mls @ 2.381 mls/hr IV .Q24H PRN; Protocol; 5 MCG/KG/MIN PRN Reason: TITRATE PER MD ORDER Last Titration: 10/08/17 08:59 Dose: 252 mcg/kg/min, 120.021 mls/hr Potassium Chloride 20 meq/ (Sodium Chloride) 1,010 mls @ 125 mls/hr IV .Q8H5M [facility] [place] Last Admin: 10/08/17 03:59 Dose: 125 mls/hr Insulin Human Regular (Novolin R) 0 unit SC Q6H [facility] [place] PRN Reason: Protocol Last Admin: 10/08/17 05:49 Dose: Not Given Isosorbide Mononitrate (Imdur) 60 mg PO DAILY [facility] Last Admin: 10/07/17 10:14 Dose: 60 mg Levothyroxine Sodium (Synthroid) 50 mcg PO DAILY@0630 [facility] Last Admin: 10/07/17 06:11 Dose: 50 mcg Losartan Potassium (Cozaar) 100 mg PO DAILY [facility] Last Admin: 10/07/17 10:14 Dose: 100 mg Nebivolol (Bystolic) 10 mg PO DAILY [facility] Last Admin: 10/07/17 10:13 Dose: 10 mg Ondansetron HCl (Zofran Inj) 4 mg IVP Q6H PRN PRN Reason: Nausea/Vomiting Last Admin: 10/07/17 20:20 Dose: 4 mg Pantoprazole Sodium (Protonix Inj) 40 mg IVP DAILY [facility] [place] Last Admin: 10/08/17 09:05 Dose: 40 mg Polyethylene Glycol (Miralax) 17 gm PO BID PRN PRN Reason: Constipation Last Admin: 10/07/17 10:14 Dose: 17 gm Rosuvastatin Calcium (Crestor) 5 mg PO HS [facility] [place] Last Admin: 10/07/17 22:43 Dose: Not Given Zolpidem Tartrate (Ambien) 5 mg PO HS PRN PRN Reason: Insomnia Last Admin: 10/04/17 23:27 Dose: 5 mg Physical Exam - Constitutional Appears: In Acute Distress - Head Exam Head Exam: ATRAUMATIC, NORMAL INSPECTION, NORMOCEPHALIC - Eye Exam Eye Exam: EOMI, Normal appearance, PERRL Pupil Exam: NORMAL ACCOMODATION, PERRL - ENT Exam ENT Exam: Mucous Membranes Moist, Normal Exam - Neck Exam Neck exam: Positive for: Normal Inspection - Respiratory Exam Respiratory Exam: Clear to Auscultation Bilateral, Respiratory Distress Additional comments: Intubated - Cardiovascular Exam Cardiovascular Exam: REGULAR RHYTHM - GI/Abdominal Exam GI & Abdominal Exam: Normal Bowel Sounds, Soft, Tenderness Additional comments: Incision C/D/i - Extremities Exam Extremities exam: Positive for: normal inspection - Back Exam Back exam: NORMAL INSPECTION - Skin Skin Exam: Dry, Intact, Normal Color, Warm Results - Vital Signs Recent Vital Signs: Last Vital Signs Temp 99.1 F 10/08/17 08:00 Pulse 95 H 10/08/17 08:50 Resp 16 10/08/17 08:50 BP 91/43 L 10/08/17 08:50 Pulse Ox 100 10/08/17 08:50 - Labs Result Diagrams: 10/08/17 06:39 10/08/17 06:39 Labs: Laboratory Results - last 24 hr 10/07/17 10/07/17 10/07/17 11:35 13:17 19:43 WBC RBC Hgb Hct MCV MCH MCHC RDW Plt Count MPV Neut % (Auto) Lymph % (Auto) Oliver % (Auto) Eos % (Auto) Baso % (Auto) Neut # Lymph # Oliver # Eos # Baso # Puncture Site pCO2 pO2 HCO3 ABG pH ABG Total CO2 ABG O2 Saturation ABG Base Excess Dayron Test ABG Potassium A-a O2 Difference Respiratory Index Sodium Chloride Glucose Lactate Vent Mode Mechanical Rate FiO2 Tidal Volume PEEP Potassium Carbon Dioxide Anion Gap BUN Creatinine Est GFR ( Amer) Est GFR (Non-Af Amer) POC Glucose (mg/dL) 151 H Random Glucose Lactic Acid 4.1 H* Calcium Phosphorus Magnesium Total Bilirubin AST ALT Alkaline Phosphatase Total Protein Albumin Globulin Albumin/Globulin Ratio Amylase Lipase Arterial Blood Potassium Stool Occult Blood Positive H Stool Leukocytes, Qual Blood Type Antibody Screen 10/07/17 10/08/17 10/08/17 Unknown 00:27 02:19 WBC RBC Hgb Hct MCV MCH MCHC RDW Plt Count MPV Neut % (Auto) Lymph % (Auto) Oliver % (Auto) Eos % (Auto) Baso % (Auto) Neut # Lymph # Oliver # Eos # Baso # Puncture Site R bra pCO2 32 L pO2 82 HCO3 21.3 ABG pH 7.39 ABG Total CO2 20.4 L ABG O2 Saturation 96.4 ABG Base Excess -4.6 L Dayron Test Na ABG Potassium 3.0 L A-a O2 Difference 163.0 Respiratory Index 2.0 Sodium 140.0 Chloride 111.0 H Glucose 126 H Lactate 1.8 Vent Mode Prvc Mechanical Rate 12 FiO2 40.0 Tidal Volume 500 PEEP 5 Potassium Carbon Dioxide Anion Gap BUN Creatinine Est GFR ( Amer) Est GFR (Non-Af Amer) POC Glucose (mg/dL) Random Glucose Lactic Acid Calcium Phosphorus Magnesium Total Bilirubin AST ALT Alkaline Phosphatase Total Protein Albumin Globulin Albumin/Globulin Ratio Amylase Lipase Arterial Blood Potassium 3.0 L Stool Occult Blood Stool Leukocytes, Qual Negative Blood Type O POSITIVE Antibody Screen Negative 10/08/17 10/08/17 10/08/17 02:53 02:53 02:53 WBC 4.0 L D RBC 3.92 Hgb 11.1 D Hct 34.0 MCV 86.8 MCH 28.3 MCHC 32.6 L RDW 14.8 H Plt Count 245 MPV 10.1 Neut % (Auto) 55.8 Lymph % (Auto) 32.4 Oliver % (Auto) 11.5 H Eos % (Auto) 0.1 Baso % (Auto) 0.2 Neut # 2.2 Lymph # 1.3 Oliver # 0.5 Eos # 0.0 Baso # 0.0 Puncture Site pCO2 pO2 HCO3 ABG pH ABG Total CO2 ABG O2 Saturation ABG Base Excess Dayron Test ABG Potassium A-a O2 Difference Respiratory Index Sodium 136 Chloride 107 Glucose Lactate Vent Mode Mechanical Rate FiO2 Tidal Volume PEEP Potassium 3.5 L Carbon Dioxide 23 Anion Gap 10 BUN 40 H Creatinine 1.3 H Est GFR ( Amer) 48 Est GFR (Non-Af Amer) 40 POC Glucose (mg/dL) Random Glucose 120 H Lactic Acid 2.6 H Calcium 7.5 L Phosphorus Magnesium Total Bilirubin 1.3 AST 20 ALT 22 Alkaline Phosphatase 50 Total Protein 5.4 L Albumin 2.7 L D Globulin 2.7 Albumin/Globulin Ratio 1.0 Amylase Lipase Arterial Blood Potassium Stool Occult Blood Stool Leukocytes, Qual Blood Type Antibody Screen 10/08/17 10/08/17 10/08/17 05:25 05:43 06:39 WBC 4.8 RBC 4.06 Hgb 11.8 Hct 35.3 MCV 86.9 MCH 29.0 MCHC 33.4 RDW 14.8 H Plt Count 209 MPV 10.1 Neut % (Auto) 58.4 Lymph % (Auto) 26.9 Oliver % (Auto) 14.2 H Eos % (Auto) 0.2 Baso % (Auto) 0.3 Neut # 2.8 Lymph # 1.3 Oliver # 0.7 Eos # 0.0 Baso # 0.0 Puncture Site R bra pCO2 37 pO2 95 HCO3 21.3 ABG pH 7.35 ABG Total CO2 21.5 L ABG O2 Saturation 97.6 ABG Base Excess -4.7 L Dayron Test Na ABG Potassium 3.6 A-a O2 Difference 144.0 Respiratory Index 1.5 Sodium 143.0 Chloride 108.0 H Glucose 120 H Lactate 2.0 Vent Mode Prvc Mechanical Rate 12 FiO2 40.0 Tidal Volume 500 PEEP 5 Potassium Carbon Dioxide Anion Gap BUN Creatinine Est GFR ( Amer) Est GFR (Non-Af Amer) POC Glucose (mg/dL) 117 H Random Glucose Lactic Acid Calcium Phosphorus Magnesium Total Bilirubin AST ALT Alkaline Phosphatase Total Protein Albumin Globulin Albumin/Globulin Ratio Amylase Lipase Arterial Blood Potassium 3.6 Stool Occult Blood Stool Leukocytes, Qual Blood Type Antibody Screen 10/08/17 10/08/17 06:39 08:56 WBC RBC Hgb Hct MCV MCH MCHC RDW Plt Count MPV Neut % (Auto) Lymph % (Auto) Oliver % (Auto) Eos % (Auto) Baso % (Auto) Neut # Lymph # Oliver # Eos # Baso # Puncture Site pCO2 pO2 HCO3 ABG pH ABG Total CO2 ABG O2 Saturation ABG Base Excess Dayron Test ABG Potassium A-a O2 Difference Respiratory Index Sodium 137 Chloride 106 Glucose Lactate Vent Mode Mechanical Rate FiO2 Tidal Volume PEEP Potassium 3.3 L Carbon Dioxide 23 Anion Gap 12 BUN 39 H Creatinine 1.4 H Est GFR ( Amer) 44 Est GFR (Non-Af Amer) 37 POC Glucose (mg/dL) Random Glucose 112 H Lactic Acid 2.2 H Calcium 7.6 L Phosphorus 3.1 Magnesium 1.6 Total Bilirubin 1.0 AST 16 ALT 22 Alkaline Phosphatase 54 Total Protein 5.1 L Albumin 2.5 L Globulin 2.6 Albumin/Globulin Ratio 1.0 Amylase < 30 L D Lipase 19 L Arterial Blood Potassium Stool Occult Blood Stool Leukocytes, Qual Blood Type Antibody Screen Assessment & Plan - Assessment and Plan (Free Text) Assessment: POD 1 s/p ex lap sb resection for Mesenteric ischemia CT shows aortic ulceration and cacification without true dissection. CTA: sclerotic prox SMA and Celiac. Patent. -Will discuss w IR for possible vascular intervention -ICU management BROOKE Inman
[2017-10-08] MEDS ORDERED: Fentanyl Citrate 2,500 MCG in Dextrose 5% In Water 200 ML IV SCH (11:45)
--- NOTE | 2017-10-08 13:15 | OP ---
DATE: 10/07/2017 PREOPERATIVE DIAGNOSIS: Small bowel gangrene. POSTOPERATIVE DIAGNOSIS: Small bowel gangrene. PROCEDURE PERFORMED: Exploratory laparotomy and resection of small bowel. FINDINGS: Most of the small bowel is markedly dilated. A large amount of fibrinopurulent exudate was noted especially in the left upper quadrant of the abdomen. There is a tremendous amount of hyperemia and purplish discoloration of the bowel extending from the ligament of Treitz about 10 cm distal to the ligament, all the way down to the midportion of the jejunum. Patches of dark necrotic areas were noted combined with a fibrinopurulent exudate throughout the entire area. The rest of the bowel appears to be slightly hyperemic, but appeared to be viable. Colon was normal in appearance. Gallbladder was markedly distended. The stomach was also markedly distended. DESCRIPTION OF PROCEDURE: Under general anesthesia, patient was prepared and draped in the usual sterile fashion. The abdomen was entered through a midline incision extending from just below the xiphoid process to about 3 inches below the umbilicus. The peritoneal cavity was entered, the above finding was demonstrated. Resection was then accomplished by first isolating the first portion of the jejunum, which appeared to be viable. It was transected at this area. This was followed all the way down to the mid jejunal portion, about 2 feet of bowel was then excised together with the corresponding mesentery. When the anastomosis was performed, we noted there is a large patch of gangrenous portion of the jejunum. This was then further resected much closer to the ligament of Treitz. This was accomplished by the aid of the old suture model, TAMMY. Anastomosis was then performed utilizing the same TAMMY and the enterotomy ensuing post anastomosis was closed with other suture model TA16. The corresponding mesentery was then closed utilizing a continuous over and over sutures of 2-0 chromic. The staple line was reinforced with sutures of 2-0 chromic on all the staple line areas. Bleeders were controlled with electrocautery, ligatures, and suture ligatures of 0 Vicryl. The area was irrigated with large amount of saline solution. This was then suctioned out. The abdomen was then closed in layers utilizing a continuous over and over suture of double strand #1 PDS and skin was closed with multiple skin alirio. The estimated blood loss probably approximately about 100 mL. The patient tolerated the procedure quite well and left the operating room in good condition. Damon Hinton MD
[2017-10-08] MEDS: Albumin Human 25% (12.5 gm/50 ml) IV SCH ×8 (16:02→23:03)
--- NOTE | 2017-10-08 17:29 | CP.PCM.PN ---
Subjective - Date & Time of Evaluation Date of Evaluation: 10/08/17 Time of Evaluation: 04:00 - Subjective Subjective: dictated Objective - Vital Signs/Intake and Output Vital Signs (last 24 hours): Temp Pulse Resp BP Pulse Ox 99.3 F 88 12 96/44 L 100 10/08/17 12:00 10/08/17 16:30 10/08/17 16:30 10/08/17 15:33 10/08/17 16:30 Intake and Output: 10/08/17 10/08/17 06:59 18:59 Intake Total 603.5 1422.3 Output Total 700 100 Balance -96.5 1322.3 - Medications Medications: Current Medications Albumin Human (Albumin Human 25% (12.5 Gm/50 Ml)) 12.5 gm IV Q1H [facility] Stop: 10/08/17 23:01 Last Admin: 10/08/17 17:07 Dose: 12.5 gm Amlodipine Besylate (Norvasc) 10 mg PO DAILY [facility] Last Admin: 10/07/17 10:14 Dose: 10 mg Aspirin (Ecotrin) 81 mg PO DAILY [facility] Last Admin: 10/07/17 10:13 Dose: 81 mg Heparin Sodium (Porcine) (Heparin) 5,000 units SC Q12 [facility] Last Admin: 10/06/17 09:20 Dose: 5,000 units Meropenem 1 gm/ Sodium (Chloride) 50 mls @ 100 mls/hr IVPB Q8H [facility] Last Admin: 10/08/17 13:59 Dose: 100 mls/hr Metronidazole (Flagyl) 500 mg in 100 mls @ 100 mls/hr IVPB Q8 [facility] Last Admin: 10/08/17 13:06 Dose: 100 mls/hr Propofol (Diprivan) 1,000 mg in 100 mls @ 2.381 mls/hr IV .Q24H PRN; Protocol; 5 MCG/KG/MIN PRN Reason: TITRATE PER MD ORDER Last Titration: 10/08/17 13:00 Dose: 0 mcg/kg/min, 0 mls/hr Potassium Chloride 20 meq/ (Sodium Chloride) 1,010 mls @ 125 mls/hr IV .Q8H5M [facility] Last Admin: 10/08/17 13:07 Dose: 125 mls/hr Fentanyl Citrate 2,500 mcg/ (Dextrose) 250 mls @ 15.87 mls/hr IV .[id number] TIM; 2 MCG/KG/HR PRN Reason: Protocol Last Titration: 10/08/17 14:24 Dose: 4 mcg/kg/hr, 31.75 mls/hr Insulin Human Regular (Novolin R) 0 unit SC Q6H TIM PRN Reason: Protocol Last Admin: 10/08/17 11:59 Dose: Not Given Isosorbide Mononitrate (Imdur) 60 mg PO DAILY [facility] Last Admin: 10/07/17 10:14 Dose: 60 mg Levothyroxine Sodium (Synthroid) 50 mcg PO DAILY@0630 [facility] Last Admin: 10/07/17 06:11 Dose: 50 mcg Losartan Potassium (Cozaar) 100 mg PO DAILY [facility] Last Admin: 10/07/17 10:14 Dose: 100 mg Nebivolol (Bystolic) 10 mg PO DAILY [facility] Last Admin: 10/07/17 10:13 Dose: 10 mg Ondansetron HCl (Zofran Inj) 4 mg IVP Q6H PRN PRN Reason: Nausea/Vomiting Last Admin: 10/07/17 20:20 Dose: 4 mg Pantoprazole Sodium (Protonix Inj) 40 mg IVP DAILY [facility] Last Admin: 10/08/17 09:05 Dose: 40 mg Polyethylene Glycol (Miralax) 17 gm PO BID PRN PRN Reason: Constipation Last Admin: 10/07/17 10:14 Dose: 17 gm Rosuvastatin Calcium (Crestor) 5 mg PO HS [facility] Last Admin: 10/07/17 22:43 Dose: Not Given Zolpidem Tartrate (Ambien) 5 mg PO HS PRN PRN Reason: Insomnia Last Admin: 10/04/17 23:27 Dose: 5 mg - Labs Labs: 10/08/17 06:39 10/08/17 06:39 PT 12.2 SECONDS (9.7-12.2) 10/04/17 18:30 INR 1.1 10/04/17 18:30 APTT 29 SECONDS (21-34) 10/04/17 18:30
[2017-10-08] MEDS: Fentanyl Citrate 2,500 MCG in Dextrose 5% In Water 200 ML IV PRN (21:32)
--- NOTE | 2017-10-08 22:23 | PN ---
DATE: INFECTIOUS DISEASE FOLLOWUP SUBJECTIVE: Patient was seen yesterday and I had ordered a CAT scan, which showed bowel and she underwent a surgery. She is presently intubated. Case was discussed with Dr. Royal and she was placed on antibiotics and did the surgery last night and I want to see the surgery report. Operative note shows she had an exploratory lap and resection of small bowel. She remains intubated at this time; however, she is awake. She complained of dryness at this time, but she is intubated. She is on IV fluids. Her family is at the bedside. PHYSICAL EXAMINATION: VITAL SIGNS: I find her temperature, last report recorded as 99.3, pulse of 89, blood pressure 100/41, respirations are 15. GENERAL: She is awake, intubated. HEENT: Head: Atraumatic, normocephalic. Eyes: She is opening her eyes. NECK: Supple. LUNGS: Clear. HEART: S1 and S2 is regular. ABDOMEN: Postop, distended. Bowel sounds are all absent at this time. EXTREMITIES: Postop, extremities have Venodyne boots on. LABORATORY DATA: Noted. Labs show white count is 4.8, hemoglobin 11.8, hematocrit 35.3, platelet count is 209. Her sodium is 137, potassium 3.3, chloride is 106, CO2 is 23, BUN is 39, creatinine is 1.4. ASSESSMENT AND PLAN: So, we are going to monitor that as she is on a full dose of meropenem at this time and she did have a lot of bands yesterday, 12, for which I had seen her and she also has aneurysm and she had a vascular eval for it. At this time, patient is status post small bowel resection for a bowel, probably mesenteric ischemia, and has had a CT dissection protocol which was noted to have hepatic cyst and a focal aneurysmal dilatation of the infrarenal abdominal aorta. At this time, the patient will continue on Merrem and Flagyl and we will follow. Reji Lawson MD
--- NOTE | 2017-10-08 22:33 | CON ---
DATE: 10/08/2017 HISTORY OF PRESENT ILLNESS: The patient is a 77-year-old woman, seen on an urgent basis for evaluation of mesenteric ischemia. She had recently undergone surgery within the past few hours and removal of a segment of small bowel, which was ischemic. Her past medical history is known for pacemaker, for heart bypass surgery done a number of years ago. The problem now is that she underwent cardiac cath yesterday. Afterwards, she has had pain in her stomach. CAT scan was markedly abnormal and she was recommended to have surgery, which was carried out in the middle of the night. Now, on examination, the patient is on a ventilator. Her vital signs are stable and normal. She is not tachycardic. Her abdomen is soft and nontender. Her feet are covered in bandages, but there is no evidence of malperfusion; just gangrene, either acute or chronic basis. Apart from this, the history was obtained from the son who is present and some discussion with doctors involved in the care. Her exam is otherwise unremarkable. The CAT scan was reviewed and that does show in particularly that there is some calcification at the origin of the SMA and at the celiac axis. There was also some mention of dissection, but I think this is simply and ulcer in the wall. It does not appear to me that there is any evidence of ischemia of her legs both femoral pulses. IMPRESSION: So my impression is, the patient has chronic arterial occlusive disease. She had an acute event which led to bowel ischemia. At this point, on review of the CT angiogram which was done a number of days ago, it does not appear that there is significant occlusive disease at the origin of the superior mesenteric artery. I will review with the radiologist whether or not we should proceed with angiography or if any other methods are necessary, but at this point, the patient appears stable. Kevyn Inman Jr., MD
[2017-10-08] MEDS ORDERED: Sodium Chloride 0.9% 1,000 ML IV ONE (22:57)
--- NOTE | 2017-10-09 00:10 | CARD ---
APPROVED REPORT EKG Measurement Heart [id number] <Conclusion> Sinus tachycardia Left axis deviation Left bundle branch block Abnormal ECG
[2017-10-09] MEDS ORDERED: Sodium Chloride 0.9% 500 ML IV ONE (02:08)
[2017-10-09] MEDS: metroNIDAZOLE IV 500 mg/100 ml 500 MG/100 ML BAG IVPB SCH ×3 (05:00→21:27)
[2017-10-09] MEDS: Fentanyl Citrate 2,500 MCG in Dextrose 5% In Water 200 ML IV PRN (05:29)
[2017-10-09] MEDS: (Novolin R) Insulin Human Regular 100 units/ml vial SC SCH ×5 (05:47→23:57)
[2017-10-09 05:54] LABS: ABG ALLEN TEST POS; ARTERIAL BLOOD GAS HCO3 18.7 mmol/L (21-28); ARTERIAL BLOOD GAS HEMOGLOBIN 9.1 g/dL (11.7-17.4); ARTERIAL BLOOD GAS PCO2 43 mm/Hg (35-45); ARTERIAL BLOOD GAS PH 7.25 (7.35-7.45); ARTERIAL BLOOD GAS PO2 66 mm/Hg (80-100); ARTERIAL BLOOD GAS TCO2 20.2 mmol/L (22-28)
[2017-10-09] MEDS ORDERED: Sodium Chloride 0.9% 1,000 ML IV ONE (06:30)
[2017-10-09 06:44] LABS: BASO % 0.4 % (0.0-2.0); EOS # 0.2 K/uL (0.0-0.7); EOS % 1.8 % (0.0-4.0); HEMOGLOBIN 9.1 g/dL (11.0-16.0); LYMPH # 1.4 K/uL (1.0-4.3); MEAN CELL VOLUME 88.1 fL (81.0-99.0); MEAN CORPUSCULAR HGB CONC 32.9 g/dL (33.0-37.0); MEAN PLATELET VOLUME 9.7 fL (7.2-11.7); MONO # 1.7 K/uL (0.0-0.8); MONO % 20.7 % (0.0-10.0); NEUT % 60.1 % (50.0-75.0); NRBC % 0.1 % (0.0-2.0); PLATELET COUNT 192 K/uL (130-400); RBC 3.14 Mil/uL (3.80-5.20); RED CELL DISTRIBUTION WIDTH 15.4 % (11.5-14.5); WHITE BLOOD COUNT 8.3 K/uL (4.8-10.8)
[2017-10-09 07:23] LABS: ALB/GLOB RATIO 1.3 (1.0-2.1); ALBUMIN 3.1 g/dL (3.5-5.0); CALCIUM 7.6 mg/dl (8.6-10.4); MAGNESIUM 1.7 mg/dL (1.6-2.3)
--- NOTE | 2017-10-09 08:53 | RAD ---
HISTORY: ETT COMPARISON: 10/08/2017 FINDINGS: LUNGS: No infiltrate PLEURA: No significant pleural effusion identified, no pneumothorax apparent. CARDIOVASCULAR: Normal heart size. Examination limited by a patient rotation. Endotracheal tube positioned approximately 2.3 cm above tracheal mic. Nasogastric tube extends to left upper quadrant of abdomen. Permanent pacemaker noted. OSSEOUS STRUCTURES: No significant abnormalities. VISUALIZED UPPER ABDOMEN: Normal. OTHER FINDINGS: None. IMPRESSION: Lines and tubes unchanged. No infiltrate.
[2017-10-09 09:52] LABS: BANDS 19 % (0-2); LYMPHOCYTE 17 % (20-40); MONOCYTE 18 % (0-10); NEUTROPHIL 46 % (50-75); TOTAL CELLS COUNTED 100
[2017-10-09 09:53] LABS: ANISOCYTOSIS SLIGHT; BURR CELLS SLIGHT; OVALOCYTES SLIGHT; PLATELET ESTIMATE NORMAL (NORMAL); POIKILOCYTOSIS SLIGHT
[2017-10-09 09:54] LABS: LARGE PLATELETS PRESENT
[2017-10-09] MEDS: Albumin Human 5% (12.5 gm/250 ml) IV SCH ×2 (12:34→16:57)
--- NOTE | 2017-10-09 13:10 | CP.PCM.PN ---
Subjective - Date & Time of Evaluation Date of Evaluation: 10/09/17 Time of Evaluation: 13:02 - Subjective Subjective: General Surgery: Dr Hinton Pt S&E. Remains sedated and on ventilator. Pt has been oliguric, hypotensive and tachycardic since yesterday. Has received 3L of NS this morning in addition to albumin with unresponsive blood pressure. Pt given 2 units pRBC with transient response in BP but not resolution of tachycardia. D/W manager talent and we will proceed with albumin drip since pt lungs are becoming progressively more congested. Pt now making urine ~20/hr. Pt is awake. Orientation questionable. Very agitated but does not appear to be in any pain. Abdomen remains soft and non-distended. Lactic acid has normalized. Still with significant bandemia but no leukocytosis. ABG this AM shows non-gap metabolic acidosis - presumable to RTA as pt not exhibiting any sign of further bowel ischemia PLAN: Gen: wean sedation and determine baseline mental status- pt can have mits/ restraints as needed CV; will initiate albumin drip - monitor hypotension, will start vasopressin as per ICU - now s/p 2 units pRBC , will aim for HgB > 9 given cardiac history Tachycardia may be due to hypovolemia - will monitor closely Resp: trial pressure support - repeat ABG : hold on lasix for now, f/u Urine output - currently improving to 20/hr goal should be ~30 , continue close I/O monitoring GI: no evidence of further ischemia - NGT with minimal output - ok to start trickle feeds @10ml/hr glucerna Endo: continue ISS surgery team will continue to follow closely please do not hesitate to page [phone] any issues d/w Dr Jamaal Finnegan, PGY3 Objective - Vital Signs/Intake and Output Vital Signs (last 24 hours): Temp Pulse Resp BP Pulse Ox 97.8 F 126 H 16 109/56 L 96 10/09/17 12:30 10/09/17 12:58 10/09/17 12:58 10/09/17 12:58 10/09/17 12:58 Intake and Output: 10/09/17 10/09/17 06:59 18:59 Intake Total 2478.2 2353.6 Output Total 320 110 Balance 2158.2 2243.6 - Medications Medications: Current Medications Albumin Human (Albumin Human 5% (12.5 Gm/250 Ml)) 12.5 gm IV Q5H [facility] Stop: 10/09/17 17:16 Last Admin: 10/09/17 12:34 Dose: 12.5 gm Amlodipine Besylate (Norvasc) 10 mg PO DAILY [facility] Last Admin: 10/07/17 10:14 Dose: 10 mg Aspirin (Ecotrin) 81 mg PO DAILY [facility] Last Admin: 10/07/17 10:13 Dose: 81 mg Heparin Sodium (Porcine) (Heparin) 5,000 units SC Q12 [facility] Last Admin: 10/09/17 10:57 Dose: Not Given Meropenem 1 gm/ Sodium (Chloride) 50 mls @ 100 mls/hr IVPB Q8H [facility] Last Admin: 10/09/17 05:24 Dose: 100 mls/hr Metronidazole (Flagyl) 500 mg in 100 mls @ 100 mls/hr IVPB Q8 [facility] Last Admin: 10/09/17 05:00 Dose: 100 mls/hr Potassium Chloride 20 meq/ (Sodium Chloride) 1,010 mls @ 125 mls/hr IV .Q8H5M [facility] Last Admin: 10/09/17 13:00 Dose: Not Given Fentanyl Citrate 2,500 mcg/ (Dextrose) 250 mls @ 15.87 mls/hr IV .[id number] PRN; 2 MCG/KG/HR PRN Reason: Protocol Last Titration: 10/09/17 13:00 Dose: 0 mcg/kg/hr, 0 mls/hr Vasopressin 40 units/ Sodium (Chloride) 42 mls @ 0.63 mls/hr IV .Q24H TIM; 0.01 UNITS/MIN PRN Reason: Protocol Last Admin: 10/09/17 12:58 Dose: 0.01 units/min, 0.63 mls/hr Insulin Human Regular (Novolin R) 0 unit SC Q6H [facility] PRN Reason: Protocol Last Admin: 10/09/17 11:39 Dose: Not Given Isosorbide Mononitrate (Imdur) 60 mg PO DAILY [facility] Last Admin: 10/07/17 10:14 Dose: 60 mg Levothyroxine Sodium (Synthroid) 50 mcg PO DAILY@0630 [facility] Last Admin: 10/07/17 06:11 Dose: 50 mcg Losartan Potassium (Cozaar) 100 mg PO DAILY [facility] Last Admin: 10/07/17 10:14 Dose: 100 mg Nebivolol (Bystolic) 10 mg PO DAILY [facility] Last Admin: 10/07/17 10:13 Dose: 10 mg Ondansetron HCl (Zofran Inj) 4 mg IVP Q6H PRN PRN Reason: Nausea/Vomiting Last Admin: 10/07/17 20:20 Dose: 4 mg Pantoprazole Sodium (Protonix Inj) 40 mg IVP DAILY [facility] Last Admin: 10/09/17 10:48 Dose: 40 mg Polyethylene Glycol (Miralax) 17 gm PO BID PRN PRN Reason: Constipation Last Admin: 10/07/17 10:14 Dose: 17 gm Rosuvastatin Calcium (Crestor) 5 mg PO HS [facility] Last Admin: 10/07/17 22:43 Dose: Not Given Zolpidem Tartrate (Ambien) 5 mg PO HS PRN PRN Reason: Insomnia Last Admin: 10/04/17 23:27 Dose: 5 mg - Labs Labs: 10/09/17 06:38 10/09/17 06:40 PT 12.2 SECONDS (9.7-12.2) 10/04/17 18:30 INR 1.1 10/04/17 18:30 APTT 29 SECONDS (21-34) 10/04/17 18:30 - Constitutional Appears: In Acute Distress - Eye Exam Eye Exam: Normal appearance - ENT Exam ENT Exam: Mucous Membranes Dry - Respiratory Exam Respiratory Exam: absent: Accessory Muscle Use, Respiratory Distress Additional comments: on ventilator, 35%/PEEP 5 - Cardiovascular Exam Cardiovascular Exam: Tachycardia, Irregular Rhythm Additional comments: multiple pace fires - worse with agitation - GI/Abdominal Exam GI & Abdominal Exam: Soft, Tenderness (post-operatively appropriate). absent: Distended, Firm Additional comments: exam significantly improved from pre-op - Neurological Exam Neurological Exam: Awake. absent: Alert - Psychiatric Exam Psychiatric exam: Agitated - Skin Skin Exam: Normal Color Assessment and Plan - Assessment and Plan (Free Text) Assessment: 77F POD#2 s/p ex-lap with small bowel resection 2/2 arterial occlusion Plan: see above
--- NOTE | 2017-10-09 13:33 | CP.PCM.PN ---
Subjective - Date & Time of Evaluation Date of Evaluation: 10/09/17 Time of Evaluation: 13:30 - Subjective Subjective: Medical Attending Note: Patient seen, examined and case discussed with ICU. Patient does not appear in acute distress, however she is not oriented. She does not remember who I am, when I tell her sons know she is at the hospital she does not react, she shakes her had no to pain, and as i approach her belly she reacts aggressively however, when I place my hand on her belly she does not react. Discussed with nurse, patient has completed 2 units of PRBC, and is making about 20ml/hr in terms of urine output. Objective - Vital Signs/Intake and Output Vital Signs (last 24 hours): Temp Pulse Resp BP Pulse Ox 97.8 F 126 H 16 124/73 98 10/09/17 12:30 10/09/17 13:04 10/09/17 13:04 10/09/17 13:04 10/09/17 13:04 Intake and Output: 10/09/17 10/09/17 06:59 18:59 Intake Total 2478.2 2529.2 Output Total 320 130 Balance 2158.2 2399.2 - Medications Medications: Current Medications Albumin Human (Albumin Human 5% (12.5 Gm/250 Ml)) 12.5 gm IV Q5H [facility] Stop: 10/09/17 17:16 Last Admin: 10/09/17 12:34 Dose: 12.5 gm Amlodipine Besylate (Norvasc) 10 mg PO DAILY [facility] Last Admin: 10/07/17 10:14 Dose: 10 mg Aspirin (Ecotrin) 81 mg PO DAILY [facility] Last Admin: 10/07/17 10:13 Dose: 81 mg Heparin Sodium (Porcine) (Heparin) 5,000 units SC Q12 [facility] Last Admin: 10/09/17 10:57 Dose: Not Given Meropenem 1 gm/ Sodium (Chloride) 50 mls @ 100 mls/hr IVPB Q8H [facility] Last Admin: 10/09/17 05:24 Dose: 100 mls/hr Metronidazole (Flagyl) 500 mg in 100 mls @ 100 mls/hr IVPB Q8 [facility] Last Admin: 10/09/17 05:00 Dose: 100 mls/hr Potassium Chloride 20 meq/ (Sodium Chloride) 1,010 mls @ 125 mls/hr IV .Q8H5M [facility] Last Admin: 10/09/17 13:00 Dose: Not Given Fentanyl Citrate 2,500 mcg/ (Dextrose) 250 mls @ 15.87 mls/hr IV .[id number] PRN; 2 MCG/KG/HR PRN Reason: Protocol Last Titration: 10/09/17 13:00 Dose: 0 mcg/kg/hr, 0 mls/hr Vasopressin 40 units/ Sodium (Chloride) 42 mls @ 0.63 mls/hr IV .Q24H TIM; 0.01 UNITS/MIN PRN Reason: Protocol Last Admin: 10/09/17 12:58 Dose: 0.01 units/min, 0.63 mls/hr Insulin Human Regular (Novolin R) 0 unit SC Q6H TIM PRN Reason: Protocol Last Admin: 10/09/17 11:39 Dose: Not Given Isosorbide Mononitrate (Imdur) 60 mg PO DAILY [facility] Last Admin: 10/07/17 10:14 Dose: 60 mg Levothyroxine Sodium (Synthroid) 50 mcg PO DAILY@0630 [facility] Last Admin: 10/07/17 06:11 Dose: 50 mcg Losartan Potassium (Cozaar) 100 mg PO DAILY [facility] Last Admin: 10/07/17 10:14 Dose: 100 mg Nebivolol (Bystolic) 10 mg PO DAILY [facility] Last Admin: 10/07/17 10:13 Dose: 10 mg Ondansetron HCl (Zofran Inj) 4 mg IVP Q6H PRN PRN Reason: Nausea/Vomiting Last Admin: 10/07/17 20:20 Dose: 4 mg Pantoprazole Sodium (Protonix Inj) 40 mg IVP DAILY [facility] Last Admin: 10/09/17 10:48 Dose: 40 mg Polyethylene Glycol (Miralax) 17 gm PO BID PRN PRN Reason: Constipation Last Admin: 10/07/17 10:14 Dose: 17 gm Rosuvastatin Calcium (Crestor) 5 mg PO HS [facility] Last Admin: 10/07/17 22:43 Dose: Not Given Zolpidem Tartrate (Ambien) 5 mg PO HS PRN PRN Reason: Insomnia Last Admin: 10/04/17 23:27 Dose: 5 mg - Labs Labs: 10/09/17 06:38 10/09/17 06:40 PT 12.2 SECONDS (9.7-12.2) 10/04/17 18:30 INR 1.1 10/04/17 18:30 APTT 29 SECONDS (21-34) 10/04/17 18:30 - Constitutional Appears: Non-toxic, No Acute Distress, Confused - Head Exam Head Exam: NORMAL INSPECTION Additional comments: NGT tube +garrett - Eye Exam Eye Exam: EOMI - ENT Exam ENT Exam: Mucous Membranes Moist - Respiratory Exam Respiratory Exam: Decreased Breath Sounds, Rhonchi. absent: Respiratory Distress - Cardiovascular Exam Cardiovascular Exam: Tachycardia, +S2 - GI/Abdominal Exam GI & Abdominal Exam: Soft, Hypoactive Bowel Sounds. absent: Guarding, Rigid, Tenderness, Mass, Rebound Additional comments: Dressing over central abdomen: dry/clean/intact - Extremities Exam Extremities Exam: absent: Pedal Edema, Tenderness - Neurological Exam Neurological Exam: Altered Neuro motor strength exam: Left Lower Extremity: 5 - Skin Skin Exam: Normal Color, Warm Assessment and Plan - Assessment and Plan (Free Text) Assessment: 1.Bowel Ischemia Abdominal Pain Abdominal Aorta Aneurysm * General surgery: Dr. Hinton on consult-->given LLQ abdominal pain * 10/08/17: Exploratory laparotomy, small bowel resection and primary anastomosis. EBL: 100; No Drains * Vascular surgery consult: Dr. Inman to follow for evaluation--> given aborminal aorta focal contained dissection * CT Dissection protocol (10/04/17): No evidence of thoracic aortic aneurysm, dissection, or rupture. No acute pulmonary embolism, Hepatic cysts, further findings available in the report including. Focal aneurysmal dilatation of infrarenal abdominal aorta measuring 2.6cm * Zosyn 2.25gm IVPB Q8H (10/07/17-10/07/17) * Start Meropenem 1gram IVPB Q 8H (10/07/17) * Start Flagyl 500mg IVPB Q8H (active since 10/07/17) * CT abdomen/pelvis PO (10/07/17); Small bowel pneumatosis and portal venous gas concerning for bowel ischemia and necrosis. Multiple liver cysts. Nonobstructing calcifications in the left kidney. 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 Carvajal given results of CT Abdomen/Pelvis PO contrast; resident spoke with surgery resident in light of new CT results. Patient had NGT tube placed removed 1.7 Liter of Feculent Material and had enema prior wherein there was melena. * NGT tube 10/07/17-->brownish matter * Has Garrett * on Sedation * Monitor urine output * On Fentanyl drip since 10/09/17 * Vasopressin drip since 10/09/17 2. Chest Pain New LBBB History of Coronary Artery Disease History of CABG History of Diabetes Lipid Disorder History of Hypertension History of Severe Aortic Stenosis History of Pacemaker; prior Sick Sinus syndrome * Cardiology (Dr. Childs) on board-->help appreciated; Dr. Childs is away this weekend; Dr Evangelista is covering Dr. Childs * Cardiac cath (10/06/17) completed; discussed with Dr. Childs including RCA occlusion about 50%-->will need intervention in future; Awaiting official report in EMR * Echocardiogram (10/06/17): left ventricular function is normal, left ventricular ejection fraction is within the normal range. No regional wall motion abnormalities noted. Left atrium is mildly dilated. Mild to Moderate valvular aortic stenosis. Calculated aortic valve area is 1.1cm squared. Donna regurgitation is mild to moderate. * Prior cardiac workup: * Holter in 2017 showed NSR with max HR 121, SVT at HR of 146 and rare VPC, isolated APC. * Cardiac Cath in 2015 showed distal main coronary artery 70-80% concentric stenosis mid LAD 70-80% stenosis, RCA 20-30% non-obstructing stenosis, and large diagonal branch 85% proximal stenosis. with LVEF of 60%. Basal inferior wall akinetic. P * revious ECHO showed borderline concentric LVH with grade I abnormal relaxation pattern, severe aortic stenosis, mild mitral regurg, and mild to moderate pulmonic regurg. LVEF was 60-65%. History of pacemaker placement per chart review. * CT Dissection protocol (10/04/17): No evidence of thoracic aortic aneurysm, dissection, or rupture. No acute pulmonary embolism, Hepatic cysts, further findings available in the report inclduing Focal aneurysmal dilatation of infrarenal abdominal aorta measuring 2.6cm * Aspirin on hold given melena 10/07/17 * Elevated probnp: 1580 * CARLYN: 7 * T, cholestrol: 159, LDL: 91, HDL: 41 * [id number]: 7.1 Cardiac Meds: * Aspirin on hold 10/07/17 * Crestor 5mg POqHS on hold 10/07/17 * Bystolic 10mg PO daily on hold 10/08/17 * Cozaar 100mg PO daily on hold 10/08/17 * Imdur 60mg PO daily on hold 10/08/17 * Norvasc 10mg PO dailyon hold 10/08/17 3. Sepsis Urinary Tract Infection Bandemia * Infectious Disease (Dr. Lawson) on the case-->help appreciated * Code sepsis 10/07/17 * Blood cultures (10/06/17): No growth after 48 hours X2 * Blood cultures (10/07/17): No growth after 24hours * Urine culture (10/07/17): Klebsiella Pneumoanie-->sensitive to Meropenem * Stool Culture (10/07/17): pending * Ova and Parasite (10/07/17): No ova and parasite * Zosyn 2.25gm IVPB Q8H (10/07/17-10/07/17) * Start Meropenem 1gram IVPB Q 8H (10/07/17- active) * Start Flagyl 500mg IVPB Q8H (active since 10/07/17) * Lactic acid: 2.4 (10/05/17)-->1.8 (10/06/17)-->4.1 (10/07/17)-->2.6 (10/08/17)--> 2.2 (10/08/17) * +ESBL+ on Contact * has Garrett 4. Melena * Occult blood 10/07/17 * stool leukocytes: negative * C. diff 10/07/17: pending * Stool Culture (10/07/17): pending * Ova and Parasite (10/07/17): No ova and parasite * Aspirin and Heparin dvt discontinued 10/07/17 in light of melena * Patient had enema earlier which she has bowel movement-->had stool collected and studies collected; I spoke with Nurse Qi wherein the stool appeared melanotic 10/07/17 * See 5. History of Chronic Constipation History of Liver cysts * GI (Dr. Boland) on case-->had signed off * Given patient is asymptomatic and appearance of lesions on imaging consistent with cystic disease, no further workup is indicated at this time. If patient becomes symptomatic, there is consideration for surgical intervention. * Maintain bowel regimen to prevent constipation * Suggest additional outpatient follow up and age appropriate screening colonoscopy if patient willing to undergo procedure. No further planned GI intervention * hepatitis panel: negative * Please see #1 for further details. 6. History of Hypothyroidism * TSH: 2.92; Free T4: 1.49 * Synthroid 50mcg POdaily 7. History of Breast Cancer * patient completed lumpectomy * She is being following serially * Patient is not on any chemotherapeutic 8. Prophylactic care * Anticoagulation held given melena 10/07/17 * Aspirin held given melena 10/07/17 * Palliative Care consult given patient wanted to discuss code status initially during hospitalization * Patient is in the critical care unit following emergent surgery for bowel ischemia since 10/08/17 Disposition: further management per ICU and surgery teams. Patient is on IV abx.
--- NOTE | 2017-10-09 15:44 | CP.CCUPN ---
CCU Subjective - Physician Review Events Since Last Encounter (Free Text): 10/09/17 15:41 patient alert and following commands, but severely agitated. CCU Objective - Vital Signs / Intake & Output Vital Signs (Last 4 hours): Vital Signs Temp Pulse Resp BP Pulse Ox 10/09/17 15:00 138 H 10 L 97 10/09/17 14:53 128 H 10 L 106/64 97 10/09/17 14:00 140 H 18 96 10/09/17 13:54 142 H 15 126/85 97 10/09/17 13:35 131 H 12 108/61 100 10/09/17 13:20 134 H 14 118/57 L 100 10/09/17 13:04 126 H 16 124/73 98 10/09/17 13:00 132 H 10 L 93 L 10/09/17 12:58 126 H 16 109/56 L 96 10/09/17 12:49 131 H 15 109/56 L 97 10/09/17 12:34 124 H 14 94/53 L 98 10/09/17 12:30 97.8 F 116 H 14 82/32 L 10/09/17 12:20 137 H 12 82/32 L 93 L 10/09/17 12:05 78/42 L 10/09/17 11:50 129 H 11 L 99/47 L 98 10/09/17 11:48 97.6 F Intake and Output (Last 8hrs): Intake & Output 10/09/17 10/09/17 10/09/17 06:59 14:59 22:59 Intake Total 1470.6 2714.8 185.6 Output Total 220 150 20 Balance 1250.6 2564.8 165.6 Weight 179 lb 9.6 oz Intake: IV 200 0 Intake, IV Amount 1270.6 1296.8 175.6 Left Distal Port Femoral 28.8 1.2 0.6 Left Medial Port Femoral 945 1000 125 Left Proximal Port 296.8 295.6 50 Femoral Tube Feeding 10 10 Blood Product 1208 Apheresis Rbc Cp2d As3 Lr 279 1st Unit [id number] Red Blood Cells Cpd As1 325 Lr Unit [id number] Other 200 Apheresis Rbc Cp2d As3 Lr 100 1st Unit [id number] Red Blood Cells Cpd As1 100 Lr Unit [id number] Output: Gastric Amount 50 Right Nares 50 Urine 170 150 20 Urethral (Garrett) 170 150 20 - Physical Exam Head: Positive for: Atraumatic, Normocephalic Pupils: Positive for: PERRL Extroacular Muscles: Positive for: EOMI Conjunctiva: Positive for: Normal Mouth: Positive for: Moist Mucous Membranes Respiratory/Chest: Positive for: Clear to Auscultation Cardiovascular: Positive for: Regular Rate and Rhythm Abdomen: Negative for: Tenderness, Distention Psychiatric: Positive for: Alert - Medications Active Medications: Active Medications Generic Name Dose Route Start Last Admin Trade Name Freq PRN Reason Stop Dose Admin Albumin Human 12.5 gm 10/09/17 12:15 10/09/17 12:34 Albumin Human 5% (12.5 Gm/250 Ml) IV 10/09/17 17:16 12.5 gm Q5H TIM Administration Amlodipine Besylate 10 mg 10/05/17 16:30 10/07/17 10:14 Norvasc PO 10 mg DAILY TIM Administration Aspirin 81 mg 10/05/17 10:00 10/07/17 10:13 Ecotrin PO 81 mg DAILY TIM Administration Meropenem 1 gm/ Sodium 50 mls @ 100 mls/hr 10/07/17 22:00 10/09/17 05:24 Chloride IVPB 100 mls/hr Q8H TIM Administration Metronidazole 500 mg in 100 mls @ 100 mls/hr 10/07/17 22:00 10/09/17 05:00 Flagyl IVPB 100 mls/hr Q8 TIM Administration Potassium Chloride 20 meq/ 1,010 mls @ 125 mls/hr 10/08/17 03:29 10/09/17 13: 00 Sodium Chloride IV Not Given .Q8H5M TIM Fentanyl Citrate 2,500 mcg/ 250 mls @ 15.87 mls/hr 10/08/17 21:30 10/09/17 13 :00 Dextrose IV 0 mcg/kg/hr .[id number] PRN 0 mls/hr Protocol Titration 2 MCG/KG/HR Vasopressin 40 units/ Sodium 42 mls @ 0.63 mls/hr 10/09/17 12:15 10/09/17 12: 58 Chloride IV 0.01 units/min .Q24H TIM 0.63 mls/hr Protocol Administration 0.01 UNITS/MIN Insulin Human Regular 0 unit 10/08/17 06:00 10/09/17 11:39 Novolin R SC Not Given Q6H [facility] Protocol Isosorbide Mononitrate 60 mg 10/06/17 12:45 10/07/17 10:14 Imdur PO 60 mg DAILY TIM Administration Levothyroxine Sodium 50 mcg 10/05/17 06:30 10/07/17 06:11 Synthroid PO 50 mcg DAILY@0630 TIM Administration Losartan Potassium 100 mg 10/05/17 10:00 10/07/17 10:14 Cozaar PO 100 mg DAILY TIM Administration Midazolam HCl 2 mg 10/09/17 15:40 Versed Inj IVP Q4H PRN Agitation Nebivolol 10 mg 10/05/17 10:30 10/07/17 10:13 Bystolic PO 10 mg DAILY TIM Administration Ondansetron HCl 4 mg 10/07/17 19:28 10/07/17 20:20 Zofran Inj IVP 4 mg Q6H PRN Administration Nausea/Vomiting Pantoprazole Sodium 40 mg 10/08/17 10:00 10/09/17 10:48 Protonix Inj IVP 40 mg DAILY [facility] Administration Polyethylene Glycol 17 gm 10/06/17 15:08 10/07/17 10:14 Miralax PO 17 gm BID PRN Administration Constipation Rosuvastatin Calcium 5 mg 10/04/17 22:00 10/07/17 22:43 Crestor PO Not Given HS [facility] Zolpidem Tartrate 5 mg 10/04/17 22:00 10/04/17 23:27 Ambien PO 5 mg HS PRN Administration Insomnia - Patient Studies Lab Studies: Microbiology Studies 10/07/17 12:11 Stool Culture - Final Stool NO SALMONELLA, SHIGELLA OR CAMPYLOBACTER ISOLATED. 10/08/17 Unknown MRSA Culture (Admit) - Final Naris MRSA NOT DETECTED 10/07/17 01:00 Urine Culture - Final Urine Klebsiella Pneumoniae Ssp Pneu 10/07/17 21:36 Blood Culture - Preliminary Blood-Venous NO GROWTH AFTER 24 HOURS 10/07/17 Unknown Ova and Parasite Concentrate Exam - Final Stool 10/06/17 16:45 Blood Culture - Preliminary Blood NO GROWTH AFTER 48 HOURS 10/06/17 17:16 Blood Culture - Preliminary Blood NO GROWTH AFTER 48 HOURS Lab Studies 01/21/18 01/21/18 01/21/18 Range/Units 11:15 06:40 06:38 WBC 8.3 D (4.8-10.8) K/uL RBC 3.14 L (3.80-5.20) Mil/uL Hgb 9.1 L D (11.0-16.0) g/dL Hct 27.6 L (34.0-47.0) % MCV 88.1 (81.0-99.0) fL MCH 29.0 (27.0-31.0) pg MCHC 32.9 L (33.0-37.0) g/dL RDW 15.4 H (11.5-14.5) % Plt Count 192 (130-400) K/uL MPV 9.7 (7.2-11.7) fL Neut % (Auto) 60.1 (50.0-75.0) % Lymph % (Auto) 17.0 L (20.0-40.0) % Hardy % (Auto) 20.7 H (0.0-10.0) % Eos % (Auto) 1.8 (0.0-4.0) % Baso % (Auto) 0.4 (0.0-2.0) % Neut # 5.0 (1.8-7.0) K/uL Lymph # 1.4 (1.0-4.3) K/uL Hardy # 1.7 H (0.0-0.8) K/uL Eos # 0.2 (0.0-0.7) K/uL Baso # 0.0 (0.0-0.2) K/uL Neutrophils % (Manual) 46 L (50-75) % Band Neutrophils % 19 H* (0-2) % Lymphocytes % (Manual) 17 L (20-40) % Monocytes % (Manual) 18 H (0-10) % Platelet Estimate Normal (NORMAL) Large Platelets Present Poikilocytosis (manual Slight Anisocytosis (manual) Slight Ovalocytes Slight [place] Cells Slight Puncture Site pCO2 (35-45) mm/Hg pO2 (80-100) mm/Hg HCO3 (21-28) mmol/L ABG pH (7.35-7.45) ABG Total CO2 (22-28) mmol/L ABG O2 Saturation (95-98) % ABG Base Excess (-2.0-3.0) mmol/L ABG Hemoglobin (11.7-17.4) g/dL ABG Carboxyhemoglobin (0.5-1.5) % POC ABG HHb (Measured) (0.0-5.0) % ABG Methemoglobin (0.0-3.0) % Dayron Test A-a O2 Difference mm/Hg Respiratory Index Hgb O2 Saturation (95.0-98.0) % Vent Mode Mechanical Rate FiO2 % Tidal Volume PEEP Sodium 140 (132-148) mmol/L Potassium 3.7 (3.6-5.2) mmol/L Chloride 111 H (98-107) mmol/L Carbon Dioxide 19 L (22-30) mmol/L Anion Gap 13 (10-20) BUN 49 H (7-17) mg/dL Creatinine 2.0 H (0.7-1.2) mg/dL Est GFR ( Amer) 29 Est GFR (Non-Af Amer) 24 POC Glucose (mg/dL) 132 H (65-110) mg/dL Random Glucose 99 (65-105) mg/dL Lactic Acid (0.7-2.1) mmol/L Calcium 7.6 L (8.6-10.4) mg/dl Phosphorus 3.8 (2.5-4.5) mg/dL Magnesium 1.7 (1.6-2.3) mg/dL Total Bilirubin 0.9 (0.2-1.3) mg/dL AST 17 (14-36) U/L ALT 25 (9-52) U/L Alkaline Phosphatase 42 (38-126) U/L Total Protein 5.4 L (6.3-8.3) g/dL Albumin 3.1 L D (3.5-5.0) g/dL Globulin 2.3 (2.2-3.9) gm/dL Albumin/Globulin Ratio 1.3 (1.0-2.1) Blood Type Antibody Screen 10/09/17 10/09/17 10/08/17 Range/Units 05:46 05:02 23:28 WBC (4.8-10.8) K/uL RBC (3.80-5.20) Mil/uL Hgb (11.0-16.0) g/dL Hct (34.0-47.0) % MCV (81.0-99.0) fL MCH (27.0-31.0) pg MCHC (33.0-37.0) g/dL RDW (11.5-14.5) % Plt Count (130-400) K/uL MPV (7.2-11.7) fL Neut % (Auto) (50.0-75.0) % Lymph % (Auto) (20.0-40.0) % Hardy % (Auto) (0.0-10.0) % Eos % (Auto) (0.0-4.0) % Baso % (Auto) (0.0-2.0) % Neut # (1.8-7.0) K/uL Lymph # (1.0-4.3) K/uL Hardy # (0.0-0.8) K/uL Eos # (0.0-0.7) K/uL Baso # (0.0-0.2) K/uL Neutrophils % (Manual) (50-75) % Band Neutrophils % (0-2) % Lymphocytes % (Manual) (20-40) % Monocytes % (Manual) (0-10) % Platelet Estimate (NORMAL) Large Platelets Poikilocytosis (manual Anisocytosis (manual) Ovalocytes [place] Cells Puncture Site Rr pCO2 43 (35-45) mm/Hg pO2 66 L (80-100) mm/Hg HCO3 18.7 L (21-28) mmol/L ABG pH 7.25 L (7.35-7.45) ABG Total CO2 20.2 L (22-28) mmol/L ABG O2 Saturation 94.0 L (95-98) % ABG Base Excess -7.9 L (-2.0-3.0) mmol/L ABG Hemoglobin 9.1 L (11.7-17.4) g/dL ABG Carboxyhemoglobin 1.2 (0.5-1.5) % POC ABG HHb (Measured) 5.9 H (0.0-5.0) % ABG Methemoglobin 0.5 (0.0-3.0) % Dayron Test Pos A-a O2 Difference 165.0 mm/Hg Respiratory Index 2.5 Hgb O2 Saturation 92.4 L (95.0-98.0) % Vent Mode Prvc Mechanical Rate 12 FiO2 40.0 % Tidal Volume 500 PEEP 5 Sodium (132-148) mmol/L Potassium (3.6-5.2) mmol/L Chloride (98-107) mmol/L Carbon Dioxide (22-30) mmol/L Anion Gap (10-20) BUN (7-17) mg/dL Creatinine (0.7-1.2) mg/dL Est GFR ( Amer) Est GFR (Non-Af Amer) POC Glucose (mg/dL) 120 H 129 H (65-110) mg/dL Random Glucose (65-105) mg/dL Lactic Acid (0.7-2.1) mmol/L Calcium (8.6-10.4) mg/dl Phosphorus (2.5-4.5) mg/dL Magnesium (1.6-2.3) mg/dL Total Bilirubin (0.2-1.3) mg/dL AST (14-36) U/L ALT (9-52) U/L Alkaline Phosphatase (38-126) U/L Total Protein (6.3-8.3) g/dL Albumin (3.5-5.0) g/dL Globulin (2.2-3.9) gm/dL Albumin/Globulin Ratio (1.0-2.1) Blood Type Antibody Screen 10/08/17 10/08/17 10/08/17 Range/Units 20:04 17:43 00:27 WBC (4.8-10.8) K/uL RBC (3.80-5.20) Mil/uL Hgb (11.0-16.0) g/dL Hct (34.0-47.0) % MCV (81.0-99.0) fL MCH (27.0-31.0) pg MCHC (33.0-37.0) g/dL RDW (11.5-14.5) % Plt Count (130-400) K/uL MPV (7.2-11.7) fL Neut % (Auto) (50.0-75.0) % Lymph % (Auto) (20.0-40.0) % Hardy % (Auto) (0.0-10.0) % Eos % (Auto) (0.0-4.0) % Baso % (Auto) (0.0-2.0) % Neut # (1.8-7.0) K/uL Lymph # (1.0-4.3) K/uL Hardy # (0.0-0.8) K/uL Eos # (0.0-0.7) K/uL Baso # (0.0-0.2) K/uL Neutrophils % (Manual) (50-75) % Band Neutrophils % (0-2) % Lymphocytes % (Manual) (20-40) % Monocytes % (Manual) (0-10) % Platelet Estimate (NORMAL) Large Platelets Poikilocytosis (manual Anisocytosis (manual) Ovalocytes [place] Cells Puncture Site pCO2 (35-45) mm/Hg pO2 (80-100) mm/Hg HCO3 (21-28) mmol/L ABG pH (7.35-7.45) ABG Total CO2 (22-28) mmol/L ABG O2 Saturation (95-98) % ABG Base Excess (-2.0-3.0) mmol/L ABG Hemoglobin (11.7-17.4) g/dL ABG Carboxyhemoglobin (0.5-1.5) % POC ABG HHb (Measured) (0.0-5.0) % ABG Methemoglobin (0.0-3.0) % Dayron Test A-a O2 Difference mm/Hg Respiratory Index Hgb O2 Saturation (95.0-98.0) % Vent Mode Mechanical Rate FiO2 % Tidal Volume PEEP Sodium (132-148) mmol/L Potassium (3.6-5.2) mmol/L Chloride (98-107) mmol/L Carbon Dioxide (22-30) mmol/L Anion Gap (10-20) BUN (7-17) mg/dL Creatinine (0.7-1.2) mg/dL Est GFR ( Amer) Est GFR (Non-Af Amer) POC Glucose (mg/dL) 173 H (65-110) mg/dL Random Glucose (65-105) mg/dL Lactic Acid 1.2 (0.7-2.1) mmol/L Calcium (8.6-10.4) mg/dl Phosphorus (2.5-4.5) mg/dL Magnesium (1.6-2.3) mg/dL Total Bilirubin (0.2-1.3) mg/dL AST (14-36) U/L ALT (9-52) U/L Alkaline Phosphatase (38-126) U/L Total Protein (6.3-8.3) g/dL Albumin (3.5-5.0) g/dL Globulin (2.2-3.9) gm/dL Albumin/Globulin Ratio (1.0-2.1) Blood Type O POSITIVE Antibody Screen Negative Laboratory Results - last 24 hr 10/08/17 10/08/17 10/08/17 00:27 17:43 20:04 WBC RBC Hgb Hct MCV MCH MCHC RDW Plt Count MPV Neut % (Auto) Lymph % (Auto) Hardy % (Auto) Eos % (Auto) Baso % (Auto) Neut # Lymph # Hardy # Eos # Baso # Neutrophils % (Manual) Band Neutrophils % Lymphocytes % (Manual) Monocytes % (Manual) Platelet Estimate Large Platelets Poikilocytosis (manual Anisocytosis (manual) Ovalocytes [place] Cells Puncture Site pCO2 pO2 HCO3 ABG pH ABG Total CO2 ABG O2 Saturation ABG Base Excess ABG Hemoglobin ABG Carboxyhemoglobin POC ABG HHb (Measured) ABG Methemoglobin Dayron Test A-a O2 Difference Respiratory Index Hgb O2 Saturation Vent Mode Mechanical Rate FiO2 Tidal Volume PEEP Sodium Potassium Chloride Carbon Dioxide Anion Gap BUN Creatinine Est GFR ( Amer) Est GFR (Non-Af Amer) POC Glucose (mg/dL) 173 H Random Glucose Lactic Acid 1.2 Calcium Phosphorus Magnesium Total Bilirubin AST ALT Alkaline Phosphatase Total Protein Albumin Globulin Albumin/Globulin Ratio Blood Type O POSITIVE Antibody Screen Negative 10/08/17 10/09/17 10/09/17 23:28 05:02 05:46 WBC RBC Hgb Hct MCV MCH MCHC RDW Plt Count MPV Neut % (Auto) Lymph % (Auto) Hardy % (Auto) Eos % (Auto) Baso % (Auto) Neut # Lymph # Hardy # Eos # Baso # Neutrophils % (Manual) Band Neutrophils % Lymphocytes % (Manual) Monocytes % (Manual) Platelet Estimate Large Platelets Poikilocytosis (manual Anisocytosis (manual) Ovalocytes [place] Cells Puncture Site Rr pCO2 43 pO2 66 L HCO3 18.7 L ABG pH 7.25 L ABG Total CO2 20.2 L ABG O2 Saturation 94.0 L ABG Base Excess -7.9 L ABG Hemoglobin 9.1 L ABG Carboxyhemoglobin 1.2 POC ABG HHb (Measured) 5.9 H ABG Methemoglobin 0.5 Dayron Test Pos A-a O2 Difference 165.0 Respiratory Index 2.5 Hgb O2 Saturation 92.4 L Vent Mode Prvc Mechanical Rate 12 FiO2 40.0 Tidal Volume 500 PEEP 5 Sodium Potassium Chloride Carbon Dioxide Anion Gap BUN Creatinine Est GFR ( Amer) Est GFR (Non-Af Amer) POC Glucose (mg/dL) 129 H 120 H Random Glucose Lactic Acid Calcium Phosphorus Magnesium Total Bilirubin AST ALT Alkaline Phosphatase Total Protein Albumin Globulin Albumin/Globulin Ratio Blood Type Antibody Screen 10/09/17 10/09/17 10/09/17 06:38 06:40 11:15 WBC 8.3 D RBC 3.14 L Hgb 9.1 L D Hct 27.6 L MCV 88.1 MCH 29.0 MCHC 32.9 L RDW 15.4 H Plt Count 192 MPV 9.7 Neut % (Auto) 60.1 Lymph % (Auto) 17.0 L Hardy % (Auto) 20.7 H Eos % (Auto) 1.8 Baso % (Auto) 0.4 Neut # 5.0 Lymph # 1.4 Hardy # 1.7 H Eos # 0.2 Baso # 0.0 Neutrophils % (Manual) 46 L Band Neutrophils % 19 H* Lymphocytes % (Manual) 17 L Monocytes % (Manual) 18 H Platelet Estimate Normal Large Platelets Present Poikilocytosis (manual Slight Anisocytosis (manual) Slight Ovalocytes Slight [place] Cells Slight Puncture Site pCO2 pO2 HCO3 ABG pH ABG Total CO2 ABG O2 Saturation ABG Base Excess ABG Hemoglobin ABG Carboxyhemoglobin POC ABG HHb (Measured) ABG Methemoglobin Dayron Test A-a O2 Difference Respiratory Index Hgb O2 Saturation Vent Mode Mechanical Rate FiO2 Tidal Volume PEEP Sodium 140 Potassium 3.7 Chloride 111 H Carbon Dioxide 19 L Anion Gap 13 BUN 49 H Creatinine 2.0 H Est GFR ( Amer) 29 Est GFR (Non-Af Amer) 24 POC Glucose (mg/dL) 132 H Random Glucose 99 Lactic Acid Calcium 7.6 L Phosphorus 3.8 Magnesium 1.7 Total Bilirubin 0.9 AST 17 ALT 25 Alkaline Phosphatase 42 Total Protein 5.4 L Albumin 3.1 L D Globulin 2.3 Albumin/Globulin Ratio 1.3 Blood Type Antibody Screen Fingerstick Blood Sugar Results: 132 Review of Systems - Review of Systems Systems not reviewed;Unavailable: Intubated Critical Care Progress Note - Nutrition Nutrition: Nutrition Category Date Time Status NPO Diet [DIET] Diets 10/07/17 Dinner Active Assessment/Plan (1) Ischemic necrosis of small bowel Assessment and plan: Black - 77yo F. PMHx HTN, CAD, Bradicardia, COPD, Breast Cancer, s/p lumpectomy and radiation, Anxiety/Depression, arthritis, DM II, HLD, Hypothyroidism, Severe Aortic Stenosis. p/w chest pain s/p PCI with non-occlusive CAD. hospital course c/b melanotic stool, found to have ischemic small bowel. underwent ex-lap with small bowel resection and primary anastamosis. Neuro: alert and following commands. fentanyl gtt, daily sedation vacation. patient became very agitated today. Pulm: acute post-op respiratory failure. tolerated PS trials today. volume overload seen on CXR, will have to remove fluid before extubation. CV: hypotensive, started on vasopressin, patient was already very tachycardic. Hem: anemia, most likely dilutional. Will start on heparin drip for suspected mesenteric ischemia leading to ischemic small bowel. Renal: oliguria improving, urine output increasing. added albumin drip. Endo: DM 2, SISS for coverage. GI: NPO, Glucerna@20, will slowly increase to goal over days. ID: empiric coverage, for intra-abdominal sepsis with bandemia, continue Meropenem and Flagyl. DVT proph - heparin sq GI proph - protonix garrett for strict I/O's during acute illness Code status - full code Critical Care Time spent 35 minutes Multi-disciplinary rounds were performed with house staff, nursing, speech therapy, respiratory therapy, pharmacy and nutrition with integrated input from the primary team/attending and other consulting services. The documented time is cumulative and includes review of patient data/exams/labs/chart review and examination of the patient on rounds and throughout the day; time is exclusive of any procedures or teaching time. Current Visit: Yes Status: Acute
[2017-10-09] MEDS: Heparin25000 units/250ml 1/2NS 25,000 UNITS/250 ML BAG IV PRN (17:04)
[2017-10-09 17:14] LABS: MEAN CELL VOLUME 89.2 fL (81.0-99.0); MEAN CORPUSCULAR HEMOGLOBIN 28.8 pg (27.0-31.0); MEAN CORPUSCULAR HGB CONC 32.3 g/dL (33.0-37.0); MEAN PLATELET VOLUME 8.9 fL (7.2-11.7); RED CELL DISTRIBUTION WIDTH 15.4 % (11.5-14.5); WHITE BLOOD COUNT 8.4 K/uL (4.8-10.8)
[2017-10-09 17:20] LABS: HEMOGLOBIN 11.5 g/dL (11.0-16.0)
[2017-10-09] MEDS: Midazolam 2 MG/2 ML VIAL IVP PRN ×2 (19:57→23:58)
[2017-10-10] MEDS: Midazolam 2 MG/2 ML VIAL IVP PRN ×2 (03:56→20:10)
[2017-10-10] MEDS: metroNIDAZOLE IV 500 mg/100 ml 500 MG/100 ML BAG IVPB SCH ×3 (05:16→21:10)
[2017-10-10 05:31] LABS: BASO % 0.4 % (0.0-2.0); EOS # 0.1 K/uL (0.0-0.7); HEMOGLOBIN 11.4 g/dL (11.0-16.0); LYMPH # 1.1 K/uL (1.0-4.3); LYMPH % 10.9 % (20.0-40.0); MEAN CELL VOLUME 88.9 fL (81.0-99.0); MEAN CORPUSCULAR HEMOGLOBIN 29.1 pg (27.0-31.0); MEAN CORPUSCULAR HGB CONC 32.7 g/dL (33.0-37.0); MEAN PLATELET VOLUME 8.7 fL (7.2-11.7); MONO # 1.6 K/uL (0.0-0.8); NEUT # 7.5 K/uL (1.8-7.0); NEUT % 72.7 % (50.0-75.0); PLATELET COUNT 241 K/uL (130-400); RBC 3.92 Mil/uL (3.80-5.20); WHITE BLOOD COUNT 10.4 K/uL (4.8-10.8)
[2017-10-10 05:45] LABS: ALB/GLOB RATIO 1.2 (1.0-2.1); ALBUMIN 3.1 g/dL (3.5-5.0); CALCIUM 8.3 mg/dl (8.6-10.4); MAGNESIUM 1.7 mg/dL (1.6-2.3)
[2017-10-10 06:20] LABS: ARTERIAL BLOOD GAS HCO3 17.1 mmol/L (21-28); ARTERIAL BLOOD GAS O2 SAT 95.4 % (95-98); ARTERIAL BLOOD GAS PCO2 29 mm/Hg (35-45); ARTERIAL BLOOD GAS PH 7.32 (7.35-7.45); ARTERIAL BLOOD GAS PO2 74 mm/Hg (80-100); ARTERIAL BLOOD GAS TCO2 15.8 mmol/L (22-28)
[2017-10-10] MEDS: (Novolin R) Insulin Human Regular 100 units/ml vial SC SCH ×3 (06:45→18:05)
--- NOTE | 2017-10-10 08:38 | RAD ---
PROCEDURE: CHEST RADIOGRAPH, 1 VIEW HISTORY: intubated patient COMPARISON: 10/09/2017 FINDINGS: LUNGS: Clear. PLEURA: No pneumothorax or pleural fluid seen. CARDIOVASCULAR: CABG. ET tube and NG tube unchanged. Permanent pacemaker. OSSEOUS STRUCTURES: No significant abnormalities. VISUALIZED UPPER ABDOMEN: Normal. OTHER FINDINGS: None. IMPRESSION: No active disease.
[2017-10-10 10:58] LABS: BANDS 20 % (0-2); EOSINOPHIL 3 % (0-4); LYMPHOCYTE 13 % (20-40); MONOCYTE 13 % (0-10); NEUTROPHIL 51 % (50-75); PLATELET ESTIMATE NORMAL (NORMAL); TOTAL CELLS COUNTED 100
[2017-10-10 10:59] LABS: ANISOCYTOSIS SLIGHT; BURR CELLS SLIGHT; TOXIC GRANULATION PRESENT
--- NOTE | 2017-10-10 11:09 | CP.PCM.PN ---
Subjective - Date & Time of Evaluation Date of Evaluation: 10/10/17 Time of Evaluation: 10:45 - Subjective Subjective: Hospitalist Progress Note Patient was seen and examined at 10:45 AM 10/10/17 ICU Bed #18 She shakes her head NO when asking FULL ROS questions She has NOT moved her bowels since before bowel resection She is producing adequate urine output per hour Exam: General: Intubated with NG tube. She is awake and following commands during exam , and answers ROS questions by shaking her head HEENT: EOMI, PERRLA, NO cervical/submandibular/supraclavicular lymphadenopathy, NO thyromegaly Cardio: NS1 and NS2, NO M/R/G Resp: Course breath sounds throughout GI: BSx4, Soft, Central Obesity, Ventral Vertical Surgical Bandage that is clean and nonbloody, some tenderness to palpation around the surgical site, however NO guarding/rebound tenderness Ext: NO edema, Pulses are strong and equal, NO discoloration, NO cyanosis, Capillary Refill is 2 seconds 1.Bowel Ischemia Abdominal Pain Abdominal Aorta Aneurysm * General surgery: Dr. Hinton on consult-->given LLQ abdominal pain * 10/08/17: Exploratory laparotomy, small bowel resection and primary anastomosis. EBL: 100; No Drains * Vascular surgery consult: Dr. Inman to follow for evaluation--> given aborminal aorta focal contained dissection * CT Dissection protocol (10/04/17): No evidence of thoracic aortic aneurysm, dissection, or rupture. No acute pulmonary embolism, Hepatic cysts, further findings available in the report including. Focal aneurysmal dilatation of infrarenal abdominal aorta measuring 2.6cm * Meropenem 1gram IVPB Q 8H (10/07/17) * Flagyl 500mg IVPB Q8H (active since 10/07/17) * CT abdomen/pelvis PO (10/07/17); Small bowel pneumatosis and portal venous gas concerning for bowel ischemia and necrosis. Multiple liver cysts. Nonobstructing calcifications in the left kidney. 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 Carvajal given results of CT Abdomen/Pelvis PO contrast; resident spoke with surgery resident in light of new CT results. Patient had NGT tube placed removed 1.7 Liter of Feculent Material and had enema prior wherein there was melena. * NGT tube 10/07/17-->brownish matter * Has Renee and is currently producing adequate urine output * Currently NOT on any sedation 2. Chest Pain New LBBB History of Coronary Artery Disease History of CABG History of Diabetes Lipid Disorder History of Hypertension History of Severe Aortic Stenosis History of Pacemaker; prior Sick Sinus syndrome * Cardiology (Dr. Childs) on board-->help appreciated * Cardiac cath (10/06/17) completed; discussed with Dr. Childs including RCA occlusion about 50%-->will need intervention in future * Echocardiogram (10/06/17): left ventricular function is normal, left ventricular ejection fraction is within the normal range. No regional wall motion abnormalities noted. Left atrium is mildly dilated. Mild to Moderate valvular aortic stenosis. Calculated aortic valve area is 1.1cm squared. Donna regurgitation is mild to moderate. * Prior cardiac workup: * Holter in 2017 showed NSR with max HR 121, SVT at HR of 146 and rare VPC, isolated APC. * Cardiac Cath in 2014 showed distal main coronary artery 70-80% concentric stenosis mid LAD 70-80% stenosis, RCA 20-30% non-obstructing stenosis, and large diagonal branch 85% proximal stenosis. with LVEF of 60%. Basal inferior wall akinetic. P * revious ECHO showed borderline concentric LVH with grade I abnormal relaxation pattern, severe aortic stenosis, mild mitral regurg, and mild to moderate pulmonic regurg. LVEF was 60-65%. History of pacemaker placement per chart review. * CT Dissection protocol (10/04/17): No evidence of thoracic aortic aneurysm, dissection, or rupture. No acute pulmonary embolism, Hepatic cysts, further findings available in the report inclduing Focal aneurysmal dilatation of infrarenal abdominal aorta measuring 2.6cm * Aspirin on hold given melena 10/07/17 * Elevated probnp: 1580 * CARLYN: 7 * T, cholestrol: 159, LDL: 91, HDL: 41 * [id number]: 7.1 * [employer] to be interrogated by [employer] [facility] Cardiology Dr. Childs to contact them to come in to perform it Cardiac Meds: * Aspirin on hold 10/07/17 * Crestor 5mg POqHS on hold 10/07/17 * Bystolic 10mg PO daily on hold 10/08/17 * Cozaar 100mg PO daily on hold 10/08/17 * Imdur 60mg PO daily on hold 10/08/17 * Norvasc 10mg PO daily on hold 10/08/17 3. Sepsis Urinary Tract Infection Bandemia * Infectious Disease (Dr. Lawson) on the case-->help appreciated * Code sepsis 10/07/17 * Blood cultures (10/06/17): No growth after 48 hours X2 * Blood cultures (10/07/17): No growth after 24hours * Urine culture (10/07/17): Klebsiella Pneumoanie-->sensitive to Meropenem * Stool Culture (10/07/17): pending * Ova and Parasite (10/07/17): No ova and parasite * Meropenem 1gram IVPB Q 8H (10/07/17- active) * Flagyl 500mg IVPB Q8H (active since 10/07/17) * Lactic acid: 2.4 (10/05/17)-->1.8 (10/06/17)-->4.1 (10/07/17)-->2.6 (10/08/17)--> 2.2 (10/08/17) * +ESBL+ on Contact * Has Víctor 4. Melena * Occult blood 10/07/17 * Stool leukocytes: negative * C. diff 10/07/17: pending * Stool Culture (10/07/17): negative * Ova and Parasite (10/07/17): No ova and parasite * Aspirin and Heparin dvt discontinued 10/07/17 in light of melena 5. History of Chronic Constipation History of Liver cysts * GI (Dr. Boland) on case-->had signed off * Given patient is asymptomatic and appearance of lesions on imaging consistent with cystic disease, no further workup is indicated at this time. If patient becomes symptomatic, there is consideration for surgical intervention. * Maintain bowel regimen to prevent constipation * Suggest additional outpatient follow up and age appropriate screening colonoscopy if patient willing to undergo procedure. No further planned GI intervention * Hepatitis panel: negative * Please see #1 for further details. 6. History of Hypothyroidism * TSH: 2.92; Free T4: 1.49 * Synthroid 50mcg PO daily 7. History of Breast Cancer * Patient history of lumpectomy * She is being following serially * Patient is not on any chemotherapeutic agent 8. History of HTN * Holding Norvasc, Cozaar, Imdur and Bystolic secondary to low blood pressure 9. History of HLD * Holding Crestor 10. History of DM * Novolin R SC Q6H Sliding Scale 11. Prophylactic care * Anticoagulation held given melena 10/07/17 but she was started on Heparin Drip 10/09/17 secondary to fear of showering emboli: monitor HgB/Hct * Aspirin held given melena 10/07/17 * Palliative Care consult given patient wanted to discuss code status initially during hospitalization * Patient is in the critical care unit following emergent surgery for bowel ischemia since 10/08/17 * Florastor 250 mg NG 2x/day * She is on NS with 20 mEQ KCl at 125 ml/hour * She is on Glucerna 1.5 at 10 ml/hour Bertin Hastings D.O. Objective - Vital Signs/Intake and Output Vital Signs (last 24 hours): Temp Pulse Resp BP Pulse Ox 99.3 F 128 H 22 129/57 L 95 10/10/17 08:00 10/10/17 09:24 10/10/17 09:24 10/10/17 09:24 10/10/17 09:24 Intake and Output: 10/10/17 10/10/17 06:59 18:59 Intake Total 2156.5 281.5 Output Total 1240 275 Balance 916.5 6.5 - Medications Medications: Current Medications Amlodipine Besylate (Norvasc) 10 mg PO DAILY [facility] Last Admin: 10/07/17 10:14 Dose: 10 mg Aspirin (Ecotrin) 81 mg PO DAILY [facility] Last Admin: 10/07/17 10:13 Dose: 81 mg Metronidazole (Flagyl) 500 mg in 100 mls @ 100 mls/hr IVPB Q8 [facility] Last Admin: 10/10/17 05:16 Dose: 100 mls/hr Potassium Chloride 20 meq/ (Sodium Chloride) 1,010 mls @ 125 mls/hr IV .Q8H5M [facility] Last Admin: 10/10/17 03:05 Dose: 125 mls/hr Heparin Sodium/Sodium Chloride (Heparin 07481 Units/250ml 1/2 Normal Saline) 25 ,000 units in 250 mls @ 14.664 mls/hr IV .Q17H3M PRN; Protocol; 18 UNITS/KG/HR PRN Reason: ADJUST RATE PER PROTOCOL Last Titration: 10/10/17 09:38 Dose: 15 units/kg/hr, 12.22 mls/hr Meropenem 1 gm/ Sodium (Chloride) 100 mls @ 100 mls/hr IVPB Q8H [facility] Insulin Human Regular (Novolin R) 0 unit SC Q6H TIM PRN Reason: Protocol Last Admin: 10/10/17 06:45 Dose: Not Given Isosorbide Mononitrate (Imdur) 60 mg PO DAILY [facility] Last Admin: 10/07/17 10:14 Dose: 60 mg Levothyroxine Sodium (Synthroid) 50 mcg PO DAILY@0630 [facility] Last Admin: 10/07/17 06:11 Dose: 50 mcg Losartan Potassium (Cozaar) 100 mg PO DAILY [facility] Last Admin: 10/07/17 10:14 Dose: 100 mg Midazolam HCl (Versed Inj) 2 mg IVP Q4H PRN PRN Reason: Agitation Last Admin: 10/10/17 03:56 Dose: 2 mg Nebivolol (Bystolic) 10 mg PO DAILY [facility] Last Admin: 10/07/17 10:13 Dose: 10 mg Ondansetron HCl (Zofran Inj) 4 mg IVP Q6H PRN PRN Reason: Nausea/Vomiting Last Admin: 10/07/17 20:20 Dose: 4 mg Pantoprazole Sodium (Protonix Inj) 40 mg IVP DAILY [facility] Last Admin: 10/09/17 10:48 Dose: 40 mg Polyethylene Glycol (Miralax) 17 gm PO BID PRN PRN Reason: Constipation Last Admin: 10/07/17 10:14 Dose: 17 gm Rosuvastatin Calcium (Crestor) 5 mg PO HS [facility] Last Admin: 10/07/17 22:43 Dose: Not Given Zolpidem Tartrate (Ambien) 5 mg PO HS PRN PRN Reason: Insomnia Last Admin: 10/04/17 23:27 Dose: 5 mg - Labs Labs: 10/10/17 05:26 10/10/17 05:26 PT 12.2 SECONDS (9.7-12.2) 10/04/17 18:30 INR 1.1 10/04/17 18:30 APTT 174 SECONDS (21-34) H* D 10/10/17 06:00
[2017-10-10] MEDS ORDERED: Metoprolol 1 mg/ml Inj IVP ONE ×2 (11:18→15:17)
[2017-10-10] MEDS ORDERED: Metoprolol 1 mg/ml Inj IVP SCH ×2 (11:30→13:09)
[2017-10-10] MEDS: Saccharomyces Boulardi 250 mg Cap NG SCH ×2 (11:50→18:26)
[2017-10-10] MEDS: Meropenem 1 GM in Sodium Chloride 0.9% 100 ML IVPB SCH ×2 (13:50→22:10)
[2017-10-10] MEDS: Heparin25000 units/250ml 1/2NS 25,000 UNITS/250 ML BAG IV PRN (13:53)
--- NOTE | 2017-10-10 14:14 | CP.PCM.PN ---
<Maynor Jon - Last Filed: 10/10/17 14:10> Subjective - Date & Time of Evaluation Date of Evaluation: 10/10/17 Time of Evaluation: 14:10 - Subjective Subjective: Cardiology progress note for Dr. Childs - Maynor Jon DO PGY - 1 Patient seen and examined at bedside. History limited due to intubation, but patient is nodding appropriately to questions and does not have any new complaints. When asked if her abdomen is cloth printing back tender, she shook her head no. Patient denies any chest pain, shortness of breath, nausea, vomiting, and diarrhea. No complaints at this time. Objective - Vital Signs/Intake and Output Vital Signs (last 24 hours): Temp Pulse Resp BP Pulse Ox 99.6 F 134 H 18 136/71 92 L 10/10/17 12:00 10/10/17 14:00 10/10/17 14:00 10/10/17 13:24 10/10/17 14:00 Intake and Output: 10/10/17 10/10/17 06:59 18:59 Intake Total 2156.5 1514.0 Output Total 1240 650 Balance 916.5 864.0 - Medications Medications: Current Medications Amlodipine Besylate (Norvasc) 10 mg PO DAILY [facility] Last Admin: 10/07/17 10:14 Dose: 10 mg Aspirin (Ecotrin) 81 mg PO DAILY [facility] Last Admin: 10/07/17 10:13 Dose: 81 mg Metronidazole (Flagyl) 500 mg in 100 mls @ 100 mls/hr IVPB Q8 [facility] Last Admin: 10/10/17 13:51 Dose: 100 mls/hr Potassium Chloride 20 meq/ (Sodium Chloride) 1,010 mls @ 125 mls/hr IV .Q8H5M [facility] Last Admin: 10/10/17 12:13 Dose: Not Given Heparin Sodium/Sodium Chloride (Heparin 33466 Units/250ml 1/2 Normal Saline) 25 ,000 units in 250 mls @ 14.664 mls/hr IV .Q17H3M PRN; Protocol; 18 UNITS/KG/HR PRN Reason: ADJUST RATE PER PROTOCOL Last Admin: 10/10/17 13:53 Dose: 15 units/kg/hr, 12.22 mls/hr Meropenem 1 gm/ Sodium (Chloride) 100 mls @ 100 mls/hr IVPB Q8H [facility] Last Admin: 10/10/17 13:50 Dose: 100 mls/hr Insulin Human Regular (Novolin R) 0 unit SC Q6H TIM PRN Reason: Protocol Last Admin: 10/10/17 12:11 Dose: Not Given Isosorbide Mononitrate (Imdur) 60 mg PO DAILY [facility] Last Admin: 10/07/17 10:14 Dose: 60 mg Levothyroxine Sodium (Synthroid) 50 mcg PO DAILY@0630 [facility] Last Admin: 10/07/17 06:11 Dose: 50 mcg Losartan Potassium (Cozaar) 100 mg PO DAILY [facility] Last Admin: 10/07/17 10:14 Dose: 100 mg Metoprolol Tartrate (Lopressor) 5 mg IVP Q6H [facility] Midazolam HCl (Versed Inj) 2 mg IVP Q4H PRN PRN Reason: Agitation Last Admin: 10/10/17 03:56 Dose: 2 mg Nebivolol (Bystolic) 10 mg PO DAILY [facility] Last Admin: 10/07/17 10:13 Dose: 10 mg Ondansetron HCl (Zofran Inj) 4 mg IVP Q6H PRN PRN Reason: Nausea/Vomiting Last Admin: 10/07/17 20:20 Dose: 4 mg Pantoprazole Sodium (Protonix Inj) 40 mg IVP DAILY [facility] Last Admin: 10/10/17 11:31 Dose: 40 mg Polyethylene Glycol (Miralax) 17 gm PO BID PRN PRN Reason: Constipation Last Admin: 10/07/17 10:14 Dose: 17 gm Rosuvastatin Calcium (Crestor) 5 mg PO HS [facility] Last Admin: 10/07/17 22:43 Dose: Not Given Saccharomyces Boulardii (Florastor) 250 mg NG BID [facility] Last Admin: 10/10/17 11:50 Dose: 250 mg Zolpidem Tartrate (Ambien) 5 mg PO HS PRN PRN Reason: Insomnia Last Admin: 10/04/17 23:27 Dose: 5 mg - Labs Labs: 10/10/17 05:26 10/10/17 05:26 PT 12.2 SECONDS (9.7-12.2) 10/04/17 18:30 INR 1.1 10/04/17 18:30 APTT 174 SECONDS (21-34) H* D 10/10/17 06:00 - Additional Findings Additional findings: Physical Exam: Vital Signs as below Const'l: +Patient is intubated, but awake alert & oriented x 4, no acute distress, pleasant, obese woman Head/Neck: neck supple, no jvd, trachea midline, carotid midline, no cervical/head mass Eyes: pupils equally reactive to light and accommodation, nonicteric sclera, extraocular intact ENT: auditory acuity grossly intact, throat not congested, no nasal deformity Cardio: +Irregular rhythm; +scar on chest wall on left and right sides, regular rate, regular rhythm, no murmurs rubs gallops, no carotid bruit, normal s1, s2 Pulm: no accessory muscle use, equal normal breath sounds bilaterally, clear to ausculation bilaterally Abd: +obesity limiting exam, +slightly diminished bowel sounds in lower quadrants; soft non tender non-distended, no palpable masses Derm: no rashes, no ulcers, no lesions Extr: no edema, no cyanosis, no calf tenderness, no lesions, no varicosities Neuro: cranial nerves II-XII grossly intact, upper extremity and lower extremity 5/5 muscle strength bilaterally, no loss of sensation in upper extremities, lower extremities bilaterally and core Assessment and Plan - Assessment and Plan (Free Text) Assessment: Assessment and Plan: 77 year old female with extensive cardiac history including CABG (2012), Cath with results as below (2014), and Abnormal stress test (2017) presents with 4 hour duration of chest pain. Troponins at .0230-->.0220-->.0260. EKG shows new LBBB with NSR at 90 bpm Holter in 2017 showed NSR with max HR 121, SVT at HR of 146 and rare VPC, isolated APC. Cardiac Cath in 2014 showed distal main coronary artery 70-80% concentric stenosis mid LAD 70-80% stenosis, RCA 20-30% non-obstructing stenosis , and large diagonal branch 85% proximal stenosis. with LVEF of 60%. Basal inferior wall akinetic. Previous ECHO showed borderline concentric LVH with grade I abnormal relaxation pattern, severe aortic stenosis, mild mitral regurg , and mild to moderate pulmonic regurg. LVEF was 60-65%. History of pacemaker placement per chart review. New-Onset A Fib - Pacemaker interrogated by escrow representative from [employer]. Patient's Pacemaker is functioning appropriately, is trying to compensate for patient's irregular rhythm - Rate control: Metoprolol 5 q6 - Will discuss Anticoagulation once patient is rate controlled. Chest Pain r/o ACS - EK, and LBBB not found on previous EKG's in system - Troponin X 1 at .0230, X2 at .0220; baseline is <.0120; CK-MB 1.87-1.85 - BNP elevated at 1580, past BNP's 799-955, with one at 1930 in 2012. - TSH, T4, Lipids - wnl - Mg/Phos:1.3/3.4 - CT Chest with IV: No aneurysm, no dissection, no PE - Follow up Troponins, EKGs - ECHO ordered, Nitro given, ASA 81 daily, Cozaar daily, Norvasc daily, Crestor daily New Left Bundle Branch Block - Patient already has a pacemaker placed (LBBB could be 2/2 to pacing) - Serial JOANNA panel, Serial EKGs, as above - Patient cardiac cath today, Results are: Briefly, LAD to [place] is patent, but other graft is gone. There actually is no jump graft RCA is now 50% stenosed, moreso than last cath Please see operative note for further details CAD s/p CABG (2012) - Crestor, Cozaar, ASA daily HTN - Norvasc 5mg PO daily, Cozaar 100mg PO daily HLD - Crestor 5mg PO QHS (patient's home medication is lipitor) DM - HGA1C: 7.1 (09/2017), Held home medication: Metformin - Carb Consistent Diet, Accuchecks, RISS - Mod Hyperkalemia - Per primary team Elevated T. Bili - Per primary team Transaminitis - Per primary team Hypothyroidism - Per primary team Hx Breast Cancer - Per primary team Prophylactic Measures - GI PPX: Protonix 40mg PO daily - DVT PPX: SCDs, Heparin Q12 <Babak Childs - Last Filed: 10/10/17 14:40> Objective - Vital Signs/Intake and Output Vital Signs (last 24 hours): Temp Pulse Resp BP Pulse Ox 99.6 F 134 H 18 136/71 92 L 10/10/17 12:00 10/10/17 14:00 10/10/17 14:00 10/10/17 13:24 10/10/17 14:00 Intake and Output: 10/10/17 10/10/17 06:59 18:59 Intake Total 2156.5 1514.0 Output Total 1240 650 Balance 916.5 864.0 - Medications Medications: Current Medications Amlodipine Besylate (Norvasc) 10 mg PO DAILY [facility] Last Admin: 10/07/17 10:14 Dose: 10 mg Aspirin (Ecotrin) 81 mg PO DAILY [facility] Last Admin: 10/07/17 10:13 Dose: 81 mg Metronidazole (Flagyl) 500 mg in 100 mls @ 100 mls/hr IVPB Q8 [facility] Last Admin: 10/10/17 13:51 Dose: 100 mls/hr Potassium Chloride 20 meq/ (Sodium Chloride) 1,010 mls @ 125 mls/hr IV .Q8H5M [facility] Last Admin: 10/10/17 12:13 Dose: Not Given Heparin Sodium/Sodium Chloride (Heparin 66543 Units/250ml 1/2 Normal Saline) 25 ,000 units in 250 mls @ 14.664 mls/hr IV .Q17H3M PRN; Protocol; 18 UNITS/KG/HR PRN Reason: ADJUST RATE PER PROTOCOL Last Admin: 10/10/17 13:53 Dose: 15 units/kg/hr, 12.22 mls/hr Meropenem 1 gm/ Sodium (Chloride) 100 mls @ 100 mls/hr IVPB Q8H [facility] Last Admin: 10/10/17 13:50 Dose: 100 mls/hr Insulin Human Regular (Novolin R) 0 unit SC Q6H [facility] PRN Reason: Protocol Last Admin: 10/10/17 12:11 Dose: Not Given Isosorbide Mononitrate (Imdur) 60 mg PO DAILY [facility] Last Admin: 10/07/17 10:14 Dose: 60 mg Levothyroxine Sodium (Synthroid) 50 mcg PO DAILY@0630 [facility] Last Admin: 10/07/17 06:11 Dose: 50 mcg Losartan Potassium (Cozaar) 100 mg PO DAILY [facility] Last Admin: 10/07/17 10:14 Dose: 100 mg Metoprolol Tartrate (Lopressor) 5 mg IVP Q6H [facility] Midazolam HCl (Versed Inj) 2 mg IVP Q4H PRN PRN Reason: Agitation Last Admin: 10/10/17 03:56 Dose: 2 mg Nebivolol (Bystolic) 10 mg PO DAILY [facility] Last Admin: 10/07/17 10:13 Dose: 10 mg Ondansetron HCl (Zofran Inj) 4 mg IVP Q6H PRN PRN Reason: Nausea/Vomiting Last Admin: 10/07/17 20:20 Dose: 4 mg Pantoprazole Sodium (Protonix Inj) 40 mg IVP DAILY [facility] Last Admin: 10/10/17 11:31 Dose: 40 mg Polyethylene Glycol (Miralax) 17 gm PO BID PRN PRN Reason: Constipation Last Admin: 10/07/17 10:14 Dose: 17 gm Rosuvastatin Calcium (Crestor) 5 mg PO HS [facility] Last Admin: 10/07/17 22:43 Dose: Not Given Saccharomyces Boulardii (Florastor) 250 mg NG BID [facility] Last Admin: 10/10/17 11:50 Dose: 250 mg Zolpidem Tartrate (Ambien) 5 mg PO HS PRN PRN Reason: Insomnia Last Admin: 10/04/17 23:27 Dose: 5 mg - Labs Labs: 10/10/17 05:26 10/10/17 05:26 PT 12.2 SECONDS (9.7-12.2) 10/04/17 18:30 INR 1.1 10/04/17 18:30 APTT 174 SECONDS (21-34) H* D 10/10/17 06:00 Assessment and Plan (1) Chest discomfort Status: Acute (2) Chest pain Status: Acute (3) Hypertension Status: Acute Attending/Attestation - Attestation I have personally seen and examined this patient.: Yes I have fully participated in the care of the patient.: Yes I have reviewed all pertinent clinical information, including history, physical exam and plan: Yes
--- NOTE | 2017-10-10 15:16 | CP.CCUPN ---
<Tommy Chang - Last Filed: 10/10/17 17:40> CCU Subjective - Physician Review Subjective (Free Text): 10/10/17 15:12 Patient seen and examined at bedside Intubated mentating well looks comfortable s/p exlap small bowel resection for ischemic bowel s/p cardiac cath add lopressor for tachycardia 10/10/17 15:18 pacemaker evaluated by cardio, working properly 10/10/17 17:30 add cardizem drip for rate control CCU Objective - Vital Signs / Intake & Output Vital Signs (Last 4 hours): Vital Signs Temp Pulse Resp BP Pulse Ox 10/10/17 14:00 134 H 18 92 L 10/10/17 13:24 120 H 26 H 136/71 92 L 10/10/17 13:00 130 H 22 94 L 10/10/17 12:24 141/78 10/10/17 12:13 122 H 25 H 147/76 96 10/10/17 12:00 99.6 F 10/10/17 11:24 144 H 25 H 137/80 94 L Intake and Output (Last 8hrs): Intake & Output 10/10/17 10/10/17 10/10/17 06:59 14:59 22:59 Intake Total 1119.7 1514.0 Output Total 575 650 Balance 544.7 864.0 Weight 202 lb 2.622 oz 200 lb 9.6 oz Intake: IV 2 250 Intake, IV Amount 1017.7 1144.0 Left Antecubital 0 Left Distal Port Femoral 5.7 100 Left Femoral 112 69.0 Left Medial Port Femoral 900 875 Left Proximal Port 100 Femoral Tube Feeding 80 70 Other 20 50 Output: Urine 575 650 Urethral (Garrett) 575 650 - Physical Exam Head: Positive for: Atraumatic, Normocephalic Pupils: Positive for: PERRL Extroacular Muscles: Positive for: EOMI Conjunctiva: Positive for: Normal Mouth: Positive for: Moist Mucous Membranes Respiratory/Chest: Positive for: Clear to Auscultation Cardiovascular: Positive for: Regular Rate and Rhythm Abdomen: Negative for: Tenderness, Distention Psychiatric: Positive for: Alert - Medications Active Medications: Active Medications Generic Name Dose Route Start Last Admin Trade Name Freq PRN Reason Stop Dose Admin Amlodipine Besylate 10 mg 10/05/17 16:30 10/07/17 10:14 Norvasc PO 10 mg DAILY TIM Administration Aspirin 81 mg 10/05/17 10:00 10/07/17 10:13 Ecotrin PO 81 mg DAILY TIM Administration Metronidazole 500 mg in 100 mls @ 100 mls/hr 10/07/17 22:00 10/10/17 13:51 Flagyl IVPB 100 mls/hr Q8 TIM Administration Potassium Chloride 20 meq/ 1,010 mls @ 125 mls/hr 10/08/17 03:29 10/10/17 12: 13 Sodium Chloride IV Not Given .Q8H5M TIM Heparin Sodium/Sodium Chloride 25,000 units in 250 mls @ 14.664 mls/hr 16:48 10/10/17 13:53 Heparin 49978 Units/250ml 1/2 Normal Saline IV 15 units/kg/hr .Q17H3M PRN 12.22 mls/hr ADJUST RATE PER PROTOCOL Administration Protocol 18 UNITS/KG/HR Meropenem 1 gm/ Sodium 100 mls @ 100 mls/hr 10/10/17 14:00 10/10/17 13:50 Chloride IVPB 100 mls/hr Q8H TIM Administration Insulin Human Regular 0 unit 10/08/17 06:00 10/10/17 12:11 Novolin R SC Not Given Q6H [facility] Protocol Isosorbide Mononitrate 60 mg 10/06/17 12:45 10/07/17 10:14 Imdur PO 60 mg DAILY TIM Administration Levothyroxine Sodium 50 mcg 10/05/17 06:30 10/07/17 06:11 Synthroid PO 50 mcg DAILY@0630 TIM Administration Losartan Potassium 100 mg 10/05/17 10:00 10/07/17 10:14 Cozaar PO 100 mg DAILY TIM Administration Metoprolol Tartrate 5 mg 10/10/17 17:00 Lopressor IVP Q6H TIM Midazolam HCl 2 mg 10/09/17 15:40 10/10/17 03:56 Versed Inj IVP 2 mg Q4H PRN Administration Agitation Nebivolol 10 mg 10/05/17 10:30 10/07/17 10:13 Bystolic PO 10 mg DAILY TIM Administration Ondansetron HCl 4 mg 10/07/17 19:28 10/07/17 20:20 Zofran Inj IVP 4 mg Q6H PRN Administration Nausea/Vomiting Pantoprazole Sodium 40 mg 10/08/17 10:00 10/10/17 11:31 Protonix Inj IVP 40 mg DAILY TIM Administration Polyethylene Glycol 17 gm 10/06/17 15:08 10/07/17 10:14 Miralax PO 17 gm BID PRN Administration Constipation Rosuvastatin Calcium 5 mg 10/04/17 22:00 10/07/17 22:43 Crestor PO Not Given HS TIM Saccharomyces Boulardii 250 mg 10/10/17 11:15 10/10/17 11:50 Florastor NG 250 mg BID TIM Administration Zolpidem Tartrate 5 mg 10/04/17 22:00 10/04/17 23:27 Ambien PO 5 mg HS PRN Administration Insomnia - Patient Studies Lab Studies: Microbiology Studies 10/07/17 21:36 Blood Culture - Preliminary Blood-Venous NO GROWTH AFTER 48 HOURS 10/06/17 16:45 Blood Culture - Preliminary Blood NO GROWTH AFTER 3 DAYS 10/06/17 17:16 Blood Culture - Preliminary Blood NO GROWTH AFTER 3 DAYS 10/07/17 12:11 Stool Culture - Final Stool NO SALMONELLA, SHIGELLA OR CAMPYLOBACTER ISOLATED. 10/08/17 Unknown MRSA Culture (Admit) - Final Naris MRSA NOT DETECTED Lab Studies 10/10/17 10/10/17 10/10/17 Range/Units 14:25 12:03 06:00 WBC (4.8-10.8) K/uL RBC (3.80-5.20) Mil/uL Hgb (11.0-16.0) g/dL Hct (34.0-47.0) % MCV (81.0-99.0) fL MCH (27.0-31.0) pg MCHC (33.0-37.0) g/dL RDW (11.5-14.5) % Plt Count (130-400) K/uL MPV (7.2-11.7) fL Neut % (Auto) (50.0-75.0) % Lymph % (Auto) (20.0-40.0) % [place] % (Auto) (0.0-10.0) % Eos % (Auto) (0.0-4.0) % Baso % (Auto) (0.0-2.0) % Neut # (1.8-7.0) K/uL Lymph # (1.0-4.3) K/uL [place] # (0.0-0.8) K/uL Eos # (0.0-0.7) K/uL Baso # (0.0-0.2) K/uL Neutrophils % (Manual) (50-75) % Band Neutrophils % (0-2) % Lymphocytes % (Manual) (20-40) % Monocytes % (Manual) (0-10) % Eosinophils % (Manual) (0-4) % Toxic Granulation Platelet Estimate (NORMAL) Anisocytosis (manual) Angelo Cells APTT 54 H D 174 H* D (21-34) SECONDS Puncture Site pCO2 (35-45) mm/Hg pO2 (80-100) mm/Hg HCO3 (21-28) mmol/L ABG pH (7.35-7.45) ABG Total CO2 (22-28) mmol/L ABG O2 Saturation (95-98) % ABG Base Excess (-2.0-3.0) mmol/L ABG Hemoglobin (11.7-17.4) g/dL ABG Carboxyhemoglobin (0.5-1.5) % POC ABG HHb (Measured) (0.0-5.0) % ABG Methemoglobin (0.0-3.0) % Dayron Test A-a O2 Difference mm/Hg Respiratory Index Hgb O2 Saturation (95.0-98.0) % Vent Mode Mechanical Rate FiO2 % Tidal Volume PEEP Sodium (132-148) mmol/L Potassium (3.6-5.2) mmol/L Chloride (98-107) mmol/L Carbon Dioxide (22-30) mmol/L Anion Gap (10-20) BUN (7-17) mg/dL Creatinine (0.7-1.2) mg/dL Est GFR ( Amer) Est GFR (Non-Af Amer) POC Glucose (mg/dL) 99 (65-110) mg/dL Random Glucose (65-105) mg/dL Calcium (8.6-10.4) mg/dl Phosphorus (2.5-4.5) mg/dL Magnesium (1.6-2.3) mg/dL Total Bilirubin (0.2-1.3) mg/dL AST (14-36) U/L ALT (9-52) U/L Alkaline Phosphatase (38-126) U/L Total Protein (6.3-8.3) g/dL Albumin (3.5-5.0) g/dL Globulin (2.2-3.9) gm/dL Albumin/Globulin Ratio (1.0-2.1) 10/10/17 10/10/17 10/10/17 Range/Units 05:26 05:26 05:23 WBC 10.4 (4.8-10.8) K/uL RBC 3.92 (3.80-5.20) Mil/uL Hgb 11.4 (11.0-16.0) g/dL Hct 34.8 (34.0-47.0) % MCV 88.9 (81.0-99.0) fL MCH 29.1 (27.0-31.0) pg MCHC 32.7 L (33.0-37.0) g/dL RDW 16.0 H (11.5-14.5) % Plt Count 241 (130-400) K/uL MPV 8.7 (7.2-11.7) fL Neut % (Auto) 72.7 (50.0-75.0) % Lymph % (Auto) 10.9 L (20.0-40.0) % [place] % (Auto) 15.0 H (0.0-10.0) % Eos % (Auto) 1.0 (0.0-4.0) % Baso % (Auto) 0.4 (0.0-2.0) % Neut # 7.5 H (1.8-7.0) K/uL Lymph # 1.1 (1.0-4.3) K/uL [place] # 1.6 H (0.0-0.8) K/uL Eos # 0.1 (0.0-0.7) K/uL Baso # 0.0 (0.0-0.2) K/uL Neutrophils % (Manual) 51 (50-75) % Band Neutrophils % 20 H* (0-2) % Lymphocytes % (Manual) 13 L (20-40) % Monocytes % (Manual) 13 H (0-10) % Eosinophils % (Manual) 3 (0-4) % Toxic Granulation Present Platelet Estimate Normal (NORMAL) Anisocytosis (manual) Slight Melstone Cells Slight APTT (21-34) SECONDS Puncture Site R bra pCO2 29 L (35-45) mm/Hg pO2 74 L (80-100) mm/Hg HCO3 17.1 L (21-28) mmol/L ABG pH 7.32 L (7.35-7.45) ABG Total CO2 15.8 L (22-28) mmol/L ABG O2 Saturation 95.4 (95-98) % ABG Base Excess -9.9 L (-2.0-3.0) mmol/L ABG Hemoglobin 12.0 (11.7-17.4) g/dL ABG Carboxyhemoglobin 0.8 (0.5-1.5) % POC ABG HHb (Measured) 4.5 (0.0-5.0) % ABG Methemoglobin 1.0 (0.0-3.0) % Dayron Test Na A-a O2 Difference 246.0 mm/Hg Respiratory Index 3.3 Hgb O2 Saturation 93.7 L (95.0-98.0) % Vent Mode Prvc Mechanical Rate 12 FiO2 50.0 % Tidal Volume 500 PEEP 5 Sodium 146 (132-148) mmol/L Potassium 4.1 (3.6-5.2) mmol/L Chloride 120 H (98-107) mmol/L Carbon Dioxide 15 L (22-30) mmol/L Anion Gap 16 (10-20) BUN 37 H (7-17) mg/dL Creatinine 1.3 H (0.7-1.2) mg/dL Est GFR ( Amer) 48 Est GFR (Non-Af Amer) 40 POC Glucose (mg/dL) (65-110) mg/dL Random Glucose 89 (65-105) mg/dL Calcium 8.3 L (8.6-10.4) mg/dl Phosphorus 2.8 (2.5-4.5) mg/dL Magnesium 1.7 (1.6-2.3) mg/dL Total Bilirubin 1.0 (0.2-1.3) mg/dL AST 23 (14-36) U/L ALT 22 (9-52) U/L Alkaline Phosphatase 63 (38-126) U/L Total Protein 5.8 L (6.3-8.3) g/dL Albumin 3.1 L (3.5-5.0) g/dL Globulin 2.6 (2.2-3.9) gm/dL Albumin/Globulin Ratio 1.2 (1.0-2.1) 10/10/17 10/09/17 10/09/17 Range/Units 05:21 23:24 22:23 WBC (4.8-10.8) K/uL RBC (3.80-5.20) Mil/uL Hgb (11.0-16.0) g/dL Hct (34.0-47.0) % MCV (81.0-99.0) fL MCH (27.0-31.0) pg MCHC (33.0-37.0) g/dL RDW (11.5-14.5) % Plt Count (130-400) K/uL MPV (7.2-11.7) fL Neut % (Auto) (50.0-75.0) % Lymph % (Auto) (20.0-40.0) % [place] % (Auto) (0.0-10.0) % Eos % (Auto) (0.0-4.0) % Baso % (Auto) (0.0-2.0) % Neut # (1.8-7.0) K/uL Lymph # (1.0-4.3) K/uL [place] # (0.0-0.8) K/uL Eos # (0.0-0.7) K/uL Baso # (0.0-0.2) K/uL Neutrophils % (Manual) (50-75) % Band Neutrophils % (0-2) % Lymphocytes % (Manual) (20-40) % Monocytes % (Manual) (0-10) % Eosinophils % (Manual) (0-4) % Toxic Granulation Platelet Estimate (NORMAL) Anisocytosis (manual) Melstone Cells APTT 73 H (21-34) SECONDS Puncture Site pCO2 (35-45) mm/Hg pO2 (80-100) mm/Hg HCO3 (21-28) mmol/L ABG pH (7.35-7.45) ABG Total CO2 (22-28) mmol/L ABG O2 Saturation (95-98) % ABG Base Excess (-2.0-3.0) mmol/L ABG Hemoglobin (11.7-17.4) g/dL ABG Carboxyhemoglobin (0.5-1.5) % POC ABG HHb (Measured) (0.0-5.0) % ABG Methemoglobin (0.0-3.0) % Dayron Test A-a O2 Difference mm/Hg Respiratory Index Hgb O2 Saturation (95.0-98.0) % Vent Mode Mechanical Rate FiO2 % Tidal Volume PEEP Sodium (132-148) mmol/L Potassium (3.6-5.2) mmol/L Chloride (98-107) mmol/L Carbon Dioxide (22-30) mmol/L Anion Gap (10-20) BUN (7-17) mg/dL Creatinine (0.7-1.2) mg/dL Est GFR ( Amer) Est GFR (Non-Af Amer) POC Glucose (mg/dL) 78 107 (65-110) mg/dL Random Glucose (65-105) mg/dL Calcium (8.6-10.4) mg/dl Phosphorus (2.5-4.5) mg/dL Magnesium (1.6-2.3) mg/dL Total Bilirubin (0.2-1.3) mg/dL AST (14-36) U/L ALT (9-52) U/L Alkaline Phosphatase (38-126) U/L Total Protein (6.3-8.3) g/dL Albumin (3.5-5.0) g/dL Globulin (2.2-3.9) gm/dL Albumin/Globulin Ratio (1.0-2.1) 10/09/17 10/09/17 Range/Units 18:08 16:56 WBC 8.4 (4.8-10.8) K/uL RBC 4.00 (3.80-5.20) Mil/uL Hgb 11.5 D (11.0-16.0) g/dL Hct 35.7 (34.0-47.0) % MCV 89.2 (81.0-99.0) fL MCH 28.8 (27.0-31.0) pg MCHC 32.3 L (33.0-37.0) g/dL RDW 15.4 H (11.5-14.5) % Plt Count 226 (130-400) K/uL MPV 8.9 (7.2-11.7) fL Neut % (Auto) (50.0-75.0) % Lymph % (Auto) (20.0-40.0) % [place] % (Auto) (0.0-10.0) % Eos % (Auto) (0.0-4.0) % Baso % (Auto) (0.0-2.0) % Neut # (1.8-7.0) K/uL Lymph # (1.0-4.3) K/uL [place] # (0.0-0.8) K/uL Eos # (0.0-0.7) K/uL Baso # (0.0-0.2) K/uL Neutrophils % (Manual) (50-75) % Band Neutrophils % (0-2) % Lymphocytes % (Manual) (20-40) % Monocytes % (Manual) (0-10) % Eosinophils % (Manual) (0-4) % Toxic Granulation Platelet Estimate (NORMAL) Anisocytosis (manual) Melstone Cells APTT (21-34) SECONDS Puncture Site pCO2 (35-45) mm/Hg pO2 (80-100) mm/Hg HCO3 (21-28) mmol/L ABG pH (7.35-7.45) ABG Total CO2 (22-28) mmol/L ABG O2 Saturation (95-98) % ABG Base Excess (-2.0-3.0) mmol/L ABG Hemoglobin (11.7-17.4) g/dL ABG Carboxyhemoglobin (0.5-1.5) % POC ABG HHb (Measured) (0.0-5.0) % ABG Methemoglobin (0.0-3.0) % Dayron Test A-a O2 Difference mm/Hg Respiratory Index Hgb O2 Saturation (95.0-98.0) % Vent Mode Mechanical Rate FiO2 % Tidal Volume PEEP Sodium (132-148) mmol/L Potassium (3.6-5.2) mmol/L Chloride (98-107) mmol/L Carbon Dioxide (22-30) mmol/L Anion Gap (10-20) BUN (7-17) mg/dL Creatinine (0.7-1.2) mg/dL Est GFR ( Amer) Est GFR (Non-Af Amer) POC Glucose (mg/dL) 94 (65-110) mg/dL Random Glucose (65-105) mg/dL Calcium (8.6-10.4) mg/dl Phosphorus (2.5-4.5) mg/dL Magnesium (1.6-2.3) mg/dL Total Bilirubin (0.2-1.3) mg/dL AST (14-36) U/L ALT (9-52) U/L Alkaline Phosphatase (38-126) U/L Total Protein (6.3-8.3) g/dL Albumin (3.5-5.0) g/dL Globulin (2.2-3.9) gm/dL Albumin/Globulin Ratio (1.0-2.1) Laboratory Results - last 24 hr 10/09/17 10/09/17 10/09/17 16:56 18:08 22:23 WBC 8.4 RBC 4.00 Hgb 11.5 D Hct 35.7 MCV 89.2 MCH 28.8 MCHC 32.3 L RDW 15.4 H Plt Count 226 MPV 8.9 Neut % (Auto) Lymph % (Auto) [place] % (Auto) Eos % (Auto) Baso % (Auto) Neut # Lymph # [place] # Eos # Baso # Neutrophils % (Manual) Band Neutrophils % Lymphocytes % (Manual) Monocytes % (Manual) Eosinophils % (Manual) Toxic Granulation Platelet Estimate Anisocytosis (manual) Melstone Cells APTT 73 H Puncture Site pCO2 pO2 HCO3 ABG pH ABG Total CO2 ABG O2 Saturation ABG Base Excess ABG Hemoglobin ABG Carboxyhemoglobin POC ABG HHb (Measured) ABG Methemoglobin Dayron Test A-a O2 Difference Respiratory Index Hgb O2 Saturation Vent Mode Mechanical Rate FiO2 Tidal Volume PEEP Sodium Potassium Chloride Carbon Dioxide Anion Gap BUN Creatinine Est GFR ( Amer) Est GFR (Non-Af Amer) POC Glucose (mg/dL) 94 Random Glucose Calcium Phosphorus Magnesium Total Bilirubin AST ALT Alkaline Phosphatase Total Protein Albumin Globulin Albumin/Globulin Ratio 10/09/17 10/10/17 10/10/17 23:24 05:21 05:23 WBC RBC Hgb Hct MCV MCH MCHC RDW Plt Count MPV Neut % (Auto) Lymph % (Auto) [place] % (Auto) Eos % (Auto) Baso % (Auto) Neut # Lymph # [place] # Eos # Baso # Neutrophils % (Manual) Band Neutrophils % Lymphocytes % (Manual) Monocytes % (Manual) Eosinophils % (Manual) Toxic Granulation Platelet Estimate Anisocytosis (manual) Melstone Cells APTT Puncture Site R bra pCO2 29 L pO2 74 L HCO3 17.1 L ABG pH 7.32 L ABG Total CO2 15.8 L ABG O2 Saturation 95.4 ABG Base Excess -9.9 L ABG Hemoglobin 12.0 ABG Carboxyhemoglobin 0.8 POC ABG HHb (Measured) 4.5 ABG Methemoglobin 1.0 Dayron Test Na A-a O2 Difference 246.0 Respiratory Index 3.3 Hgb O2 Saturation 93.7 L Vent Mode Prvc Mechanical Rate 12 FiO2 50.0 Tidal Volume 500 PEEP 5 Sodium Potassium Chloride Carbon Dioxide Anion Gap BUN Creatinine Est GFR ( Amer) Est GFR (Non-Af Amer) POC Glucose (mg/dL) 107 78 Random Glucose Calcium Phosphorus Magnesium Total Bilirubin AST ALT Alkaline Phosphatase Total Protein Albumin Globulin Albumin/Globulin Ratio 10/10/17 10/10/17 10/10/17 05:26 05:26 06:00 WBC 10.4 RBC 3.92 Hgb 11.4 Hct 34.8 MCV 88.9 MCH 29.1 MCHC 32.7 L RDW 16.0 H Plt Count 241 MPV 8.7 Neut % (Auto) 72.7 Lymph % (Auto) 10.9 L [place] % (Auto) 15.0 H Eos % (Auto) 1.0 Baso % (Auto) 0.4 Neut # 7.5 H Lymph # 1.1 [place] # 1.6 H Eos # 0.1 Baso # 0.0 Neutrophils % (Manual) 51 Band Neutrophils % 20 H* Lymphocytes % (Manual) 13 L Monocytes % (Manual) 13 H Eosinophils % (Manual) 3 Toxic Granulation Present Platelet Estimate Normal Anisocytosis (manual) Slight Angelo Cells Slight APTT 174 H* D Puncture Site pCO2 pO2 HCO3 ABG pH ABG Total CO2 ABG O2 Saturation ABG Base Excess ABG Hemoglobin ABG Carboxyhemoglobin POC ABG HHb (Measured) ABG Methemoglobin Dayron Test A-a O2 Difference Respiratory Index Hgb O2 Saturation Vent Mode Mechanical Rate FiO2 Tidal Volume PEEP Sodium 146 Potassium 4.1 Chloride 120 H Carbon Dioxide 15 L Anion Gap 16 BUN 37 H Creatinine 1.3 H Est GFR ( Amer) 48 Est GFR (Non-Af Amer) 40 POC Glucose (mg/dL) Random Glucose 89 Calcium 8.3 L Phosphorus 2.8 Magnesium 1.7 Total Bilirubin 1.0 AST 23 ALT 22 Alkaline Phosphatase 63 Total Protein 5.8 L Albumin 3.1 L Globulin 2.6 Albumin/Globulin Ratio 1.2 10/10/17 10/10/17 12:03 14:25 WBC RBC Hgb Hct MCV MCH MCHC RDW Plt Count MPV Neut % (Auto) Lymph % (Auto) [place] % (Auto) Eos % (Auto) Baso % (Auto) Neut # Lymph # [place] # Eos # Baso # Neutrophils % (Manual) Band Neutrophils % Lymphocytes % (Manual) Monocytes % (Manual) Eosinophils % (Manual) Toxic Granulation Platelet Estimate Anisocytosis (manual) Melstone Cells APTT 54 H D Puncture Site pCO2 pO2 HCO3 ABG pH ABG Total CO2 ABG O2 Saturation ABG Base Excess ABG Hemoglobin ABG Carboxyhemoglobin POC ABG HHb (Measured) ABG Methemoglobin Dayron Test A-a O2 Difference Respiratory Index Hgb O2 Saturation Vent Mode Mechanical Rate FiO2 Tidal Volume PEEP Sodium Potassium Chloride Carbon Dioxide Anion Gap BUN Creatinine Est GFR ( Amer) Est GFR (Non-Af Amer) POC Glucose (mg/dL) 99 Random Glucose Calcium Phosphorus Magnesium Total Bilirubin AST ALT Alkaline Phosphatase Total Protein Albumin Globulin Albumin/Globulin Ratio Fingerstick Blood Sugar Results: 99 Critical Care Progress Note - Nutrition Nutrition: Nutrition Category Date Time Status NPO Diet [DIET] Diets 10/07/17 Dinner Active Assessment/Plan - Assessment and Plan (Free Text) Assessment: 77F s/p small bowel resection for ischemic bowel Plan: Cardio: Cards (Amadeo) tachy s/p pacemaker lopressor 5 iv q6 diltizem drip heparin drip Fem TLC Pulm: Intubated since resection POD 2 will plan extubation when rate controlled GI: s/p small bowel resection for ischemic bowel 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 NPO flagyl, merrem : garrett, good UO Endo: DM ISS PPX: protonix heparin drip <Mary Yarbrough - Last Filed: 10/13/17 02:45> CCU Objective - Vital Signs / Intake & Output Vital Signs (Last 4 hours): Vital Signs Temp Pulse Resp BP Pulse Ox 10/13/17 01:01 110/57 L 10/13/17 01:00 90 18 97 10/13/17 00:00 100.2 F H 90 24 117/60 96 10/12/17 23:01 90 22 109/49 L 95 10/12/17 23:00 85 22 95 Intake and Output (Last 8hrs): Intake & Output 10/12/17 10/12/17 10/13/17 14:59 22:59 06:59 Intake Total 911.6 821.1 310.8 Output Total 1700 1370 Balance -788.4 -548.9 310.8 Weight 195 lb 1.745 oz Intake: IV 350 125 100 Intake, IV Amount 521.6 416.1 210.8 Left Distal Port 44.0 38.5 22.0 Subclavian Left Medial Port 80 130 100 Subclavian Left Proximal Port 300 150 40 Subclavian Left Wrist 97.6 97.6 48.8 Tube Feeding 40 70 TPN/PPN 210 Output: Urine 1700 1370 Urethral (Garrett) 1700 1370 Other: # Bowel Movements 1 1 - Medications Active Medications: Active Medications Generic Name Dose Route Start Last Admin Trade Name Freq PRN Reason Stop Dose Admin Acetaminophen 650 mg 10/11/17 10:17 Tylenol 325mg Tab PO Q6 PRN Fever >100.4 F Amlodipine Besylate 10 mg 10/12/17 10:00 10/12/17 09:15 Norvasc PO 10 mg DAILY TIM Administration Aspirin 81 mg 10/12/17 10:00 10/12/17 09:14 Aspirin Chewable PO 81 mg DAILY TIM Administration Furosemide 40 mg 10/12/17 22:00 10/12/17 21:14 Lasix IVP 40 mg Q12 TIM Administration Metronidazole 500 mg in 100 mls @ 100 mls/hr 10/07/17 22:00 10/12/17 21:11 Flagyl IVPB 100 mls/hr Q8 TIM Administration Heparin Sodium/Sodium Chloride 25,000 units in 250 mls @ 14.664 mls/hr 16:48 10/12/17 11:13 Heparin 00504 Units/250ml 1/2 Normal Saline IV 15 units/kg/hr .Q17H3M PRN 12.22 mls/hr ADJUST RATE PER PROTOCOL Administration Protocol 18 UNITS/KG/HR Meropenem 1 gm/ Sodium 100 mls @ 100 mls/hr 10/10/17 14:00 10/12/17 21:12 Chloride IVPB 100 mls/hr Q8H TIM Administration Diltiazem HCl 125 mg/ Dextrose 125 mls @ 5 mls/hr 10/10/17 16:45 10/12/17 17: 43 IV 10 mg/hr .Q24H TIM 10 mls/hr Protocol Administration 5 MG/HR Propofol 1,000 mg in 100 mls @ 2.73 mls/hr 10/11/17 07:39 10/13/17 00:29 Diprivan IV 10 mcg/kg/min .Q24H PRN 5.459 mls/hr TITRATE PER MD ORDER Administration Protocol 5 MCG/KG/MIN Potassium Chloride 15 meq/ 1,036.7404 mls @ 42 mls/hr 10/12/17 18:00 17:06 Potassium Phosphate 15 mmole/ IV 10/13/17 17:59 42 mls/hr Magnesium Sulfate 10 meq/ .Q24H ONE Administration Calcium Gluconate 4.5 meq/ Insulin Human Regular 10 unit/ Heparin Sodium (Porcine) 1, 000 units/ Chromium/Copper/ Manganese/Zinc 1 ml/ Multivitamins/Vitamin C 10 ml/ Amino Acids Insulin Human Regular 0 unit 10/08/17 06:00 10/13/17 00:25 Novolin R SC Not Given Q6H [facility] Protocol Levothyroxine Sodium 50 mcg 10/12/17 06:30 10/12/17 06:05 Synthroid PO 50 mcg DAILY@0630 TIM Administration Losartan Potassium 100 mg 10/12/17 10:00 10/12/17 09:14 Cozaar PO 100 mg DAILY TIM Administration Metoprolol Tartrate 5 mg 10/10/17 17:00 10/12/17 22:48 Lopressor IVP 5 mg Q6H TIM Administration Midazolam HCl 2 mg 10/09/17 15:40 10/11/17 07:17 Versed Inj IVP 2 mg Q4H PRN Administration Agitation Ondansetron HCl 4 mg 10/07/17 19:28 10/10/17 21:10 Zofran Inj IVP 4 mg Q6H PRN Administration Nausea/Vomiting Pantoprazole Sodium 40 mg 10/08/17 10:00 10/12/17 11:16 Protonix Inj IVP 40 mg DAILY TIM Administration Polyethylene Glycol 17 gm 10/06/17 15:08 10/07/17 10:14 Miralax PO 17 gm BID PRN Administration Constipation Rosuvastatin Calcium 5 mg 10/11/17 22:00 10/12/17 21:21 Crestor NG 5 mg HS TIM Administration Saccharomyces Boulardii 250 mg 10/10/17 11:15 10/12/17 17:05 Florastor NG 250 mg BID TIM Administration Vitamin A 0.5 ea 10/11/17 20:00 10/13/17 00:26 Vitamin A & D Oint Ud Foilpak TOP 0.5 ea Q4 TIM Administration - Patient Studies Lab Studies: Microbiology Studies 10/07/17 21:36 Blood Culture - Final Blood-Venous NO GROWTH AFTER 5 DAYS Gram Stain - Final TEST NOT PERFORMED 10/11/17 12:52 Urine Culture - Final Urine,Garrett No Growth (<1,000 CFU/ML) Lab Studies 10/13/17 10/12/17 10/12/17 Range/Units 00:19 Unknown 17:54 WBC (4.8-10.8) K/uL RBC (3.80-5.20) Mil/uL Hgb (11.0-16.0) g/dL Hct (34.0-47.0) % MCV (81.0-99.0) fL MCH (27.0-31.0) pg MCHC (33.0-37.0) g/dL RDW (11.5-14.5) % Plt Count (130-400) K/uL MPV (7.2-11.7) fL Neut % (Auto) (50.0-75.0) % Lymph % (Auto) (20.0-40.0) % [place] % (Auto) (0.0-10.0) % Eos % (Auto) (0.0-4.0) % Baso % (Auto) (0.0-2.0) % Neut # (1.8-7.0) K/uL Lymph # (1.0-4.3) K/uL [place] # (0.0-0.8) K/uL Eos # (0.0-0.7) K/uL Baso # (0.0-0.2) K/uL APTT (21-34) SECONDS Puncture Site pCO2 (35-45) mm/Hg pO2 (80-100) mm/Hg HCO3 (21-28) mmol/L ABG pH (7.35-7.45) ABG Total CO2 (22-28) mmol/L ABG O2 Saturation (95-98) % ABG Base Excess (-2.0-3.0) mmol/L ABG Hemoglobin (11.7-17.4) g/dL ABG Carboxyhemoglobin (0.5-1.5) % POC ABG HHb (Measured) (0.0-5.0) % ABG Methemoglobin (0.0-3.0) % Dayron Test A-a O2 Difference mm/Hg Respiratory Index Hgb O2 Saturation (95.0-98.0) % Vent Mode Mechanical Rate FiO2 % Tidal Volume PEEP Sodium (132-148) mmol/L Potassium (3.6-5.2) mmol/L Chloride (98-107) mmol/L Carbon Dioxide (22-30) mmol/L Anion Gap (10-20) BUN (7-17) mg/dL Creatinine (0.7-1.2) mg/dL Est GFR ( Amer) Est GFR (Non-Af Amer) POC Glucose (mg/dL) 182 H 150 H (65-110) mg/dL Random Glucose (65-105) mg/dL Calcium (8.6-10.4) mg/dl Phosphorus (2.5-4.5) mg/dL Magnesium (1.6-2.3) mg/dL Total Bilirubin (0.2-1.3) mg/dL AST (14-36) U/L ALT (9-52) U/L Alkaline Phosphatase (38-126) U/L Total Protein (6.3-8.3) g/dL Albumin (3.5-5.0) g/dL Globulin (2.2-3.9) gm/dL Albumin/Globulin Ratio (1.0-2.1) C. difficile Ag & Toxin Negative (NEGATIVE) 10/12/17 10/12/17 10/12/17 Range/Units 11:35 06:22 06:22 WBC (4.8-10.8) K/uL RBC (3.80-5.20) Mil/uL Hgb (11.0-16.0) g/dL Hct (34.0-47.0) % MCV (81.0-99.0) fL MCH (27.0-31.0) pg MCHC (33.0-37.0) g/dL RDW (11.5-14.5) % Plt Count (130-400) K/uL MPV (7.2-11.7) fL Neut % (Auto) (50.0-75.0) % Lymph % (Auto) (20.0-40.0) % [place] % (Auto) (0.0-10.0) % Eos % (Auto) (0.0-4.0) % Baso % (Auto) (0.0-2.0) % Neut # (1.8-7.0) K/uL Lymph # (1.0-4.3) K/uL [place] # (0.0-0.8) K/uL Eos # (0.0-0.7) K/uL Baso # (0.0-0.2) K/uL APTT 74 H D (21-34) SECONDS Puncture Site pCO2 (35-45) mm/Hg pO2 (80-100) mm/Hg HCO3 (21-28) mmol/L ABG pH (7.35-7.45) ABG Total CO2 (22-28) mmol/L ABG O2 Saturation (95-98) % ABG Base Excess (-2.0-3.0) mmol/L ABG Hemoglobin (11.7-17.4) g/dL ABG Carboxyhemoglobin (0.5-1.5) % POC ABG HHb (Measured) (0.0-5.0) % ABG Methemoglobin (0.0-3.0) % Dayron Test A-a O2 Difference mm/Hg Respiratory Index Hgb O2 Saturation (95.0-98.0) % Vent Mode Mechanical Rate FiO2 % Tidal Volume PEEP Sodium (132-148) mmol/L Potassium (3.6-5.2) mmol/L Chloride (98-107) mmol/L Carbon Dioxide (22-30) mmol/L Anion Gap (10-20) BUN (7-17) mg/dL Creatinine (0.7-1.2) mg/dL Est GFR ( Amer) Est GFR (Non-Af Amer) POC Glucose (mg/dL) 130 H 108 (65-110) mg/dL Random Glucose (65-105) mg/dL Calcium (8.6-10.4) mg/dl Phosphorus (2.5-4.5) mg/dL Magnesium (1.6-2.3) mg/dL Total Bilirubin (0.2-1.3) mg/dL AST (14-36) U/L ALT (9-52) U/L Alkaline Phosphatase (38-126) U/L Total Protein (6.3-8.3) g/dL Albumin (3.5-5.0) g/dL Globulin (2.2-3.9) gm/dL Albumin/Globulin Ratio (1.0-2.1) C. difficile Ag & Toxin (NEGATIVE) 10/12/17 10/12/17 10/12/17 Range/Units 06:22 06:22 05:40 WBC 16.8 H (4.8-10.8) K/uL RBC 4.04 (3.80-5.20) Mil/uL Hgb 11.8 (11.0-16.0) g/dL Hct 34.8 (34.0-47.0) % MCV 86.1 (81.0-99.0) fL MCH 29.1 (27.0-31.0) pg MCHC 33.8 (33.0-37.0) g/dL RDW 15.7 H (11.5-14.5) % Plt Count 325 (130-400) K/uL MPV 8.6 (7.2-11.7) fL Neut % (Auto) 71.2 (50.0-75.0) % Lymph % (Auto) 11.5 L (20.0-40.0) % [place] % (Auto) 15.0 H (0.0-10.0) % Eos % (Auto) 1.5 (0.0-4.0) % Baso % (Auto) 0.8 (0.0-2.0) % Neut # 12.0 H (1.8-7.0) K/uL Lymph # 1.9 (1.0-4.3) K/uL [place] # 2.5 H (0.0-0.8) K/uL Eos # 0.2 (0.0-0.7) K/uL Baso # 0.1 (0.0-0.2) K/uL APTT (21-34) SECONDS Puncture Site Rr pCO2 23 L (35-45) mm/Hg pO2 78 L (80-100) mm/Hg HCO3 19.3 L (21-28) mmol/L ABG pH 7.44 (7.35-7.45) ABG Total CO2 16.3 L (22-28) mmol/L ABG O2 Saturation 96.8 (95-98) % ABG Base Excess -7.2 L (-2.0-3.0) mmol/L ABG Hemoglobin 10.0 L (11.7-17.4) g/dL ABG Carboxyhemoglobin 0.9 (0.5-1.5) % POC ABG HHb (Measured) 3.1 (0.0-5.0) % ABG Methemoglobin 1.0 (0.0-3.0) % Dayron Test Pos A-a O2 Difference 321.0 mm/Hg Respiratory Index 4.1 Hgb O2 Saturation 95.0 (95.0-98.0) % Vent Mode Prvc Mechanical Rate 12 FiO2 60.0 % Tidal Volume 500 PEEP 5 Sodium 153 H (132-148) mmol/L Potassium 3.3 L (3.6-5.2) mmol/L Chloride 124 H (98-107) mmol/L Carbon Dioxide 23 (22-30) mmol/L Anion Gap 10 (10-20) BUN 29 H (7-17) mg/dL Creatinine 0.9 (0.7-1.2) mg/dL Est GFR ( Amer) > 60 Est GFR (Non-Af Amer) > 60 POC Glucose (mg/dL) (65-110) mg/dL Random Glucose 127 H (65-105) mg/dL Calcium 8.2 L (8.6-10.4) mg/dl Phosphorus 1.6 L (2.5-4.5) mg/dL Magnesium 1.8 (1.6-2.3) mg/dL Total Bilirubin 0.6 (0.2-1.3) mg/dL AST 19 (14-36) U/L ALT 24 (9-52) U/L Alkaline Phosphatase 110 (38-126) U/L Total Protein 5.2 L (6.3-8.3) g/dL Albumin 2.6 L (3.5-5.0) g/dL Globulin 2.6 (2.2-3.9) gm/dL Albumin/Globulin Ratio 1.0 (1.0-2.1) C. difficile Ag & Toxin (NEGATIVE) Laboratory Results - last 24 hr 10/12/17 10/12/17 10/12/17 05:40 06:22 06:22 WBC 16.8 H RBC 4.04 Hgb 11.8 Hct 34.8 MCV 86.1 MCH 29.1 MCHC 33.8 RDW 15.7 H Plt Count 325 MPV 8.6 Neut % (Auto) 71.2 Lymph % (Auto) 11.5 L [place] % (Auto) 15.0 H Eos % (Auto) 1.5 Baso % (Auto) 0.8 Neut # 12.0 H Lymph # 1.9 [place] # 2.5 H Eos # 0.2 Baso # 0.1 APTT Puncture Site Rr pCO2 23 L pO2 78 L HCO3 19.3 L ABG pH 7.44 ABG Total CO2 16.3 L ABG O2 Saturation 96.8 ABG Base Excess -7.2 L ABG Hemoglobin 10.0 L ABG Carboxyhemoglobin 0.9 POC ABG HHb (Measured) 3.1 ABG Methemoglobin 1.0 Dayron Test Pos A-a O2 Difference 321.0 Respiratory Index 4.1 Hgb O2 Saturation 95.0 Vent Mode Prvc Mechanical Rate 12 FiO2 60.0 Tidal Volume 500 PEEP 5 Sodium 153 H Potassium 3.3 L Chloride 124 H Carbon Dioxide 23 Anion Gap 10 BUN 29 H Creatinine 0.9 Est GFR ( Amer) > 60 Est GFR (Non-Af Amer) > 60 POC Glucose (mg/dL) Random Glucose 127 H Calcium 8.2 L Phosphorus 1.6 L Magnesium 1.8 Total Bilirubin 0.6 AST 19 ALT 24 Alkaline Phosphatase 110 Total Protein 5.2 L Albumin 2.6 L Globulin 2.6 Albumin/Globulin Ratio 1.0 C. difficile Ag & Toxin 10/12/17 10/12/17 10/12/17 06:22 06:22 11:35 WBC RBC Hgb Hct MCV MCH MCHC RDW Plt Count MPV Neut % (Auto) Lymph % (Auto) [place] % (Auto) Eos % (Auto) Baso % (Auto) Neut # Lymph # [place] # Eos # Baso # APTT 74 H D Puncture Site pCO2 pO2 HCO3 ABG pH ABG Total CO2 ABG O2 Saturation ABG Base Excess ABG Hemoglobin ABG Carboxyhemoglobin POC ABG HHb (Measured) ABG Methemoglobin Dayron Test A-a O2 Difference Respiratory Index Hgb O2 Saturation Vent Mode Mechanical Rate FiO2 Tidal Volume PEEP Sodium Potassium Chloride Carbon Dioxide Anion Gap BUN Creatinine Est GFR ( Amer) Est GFR (Non-Af Amer) POC Glucose (mg/dL) 108 130 H Random Glucose Calcium Phosphorus Magnesium Total Bilirubin AST ALT Alkaline Phosphatase Total Protein Albumin Globulin Albumin/Globulin Ratio C. difficile Ag & Toxin 10/12/17 10/12/17 10/13/17 17:54 Unknown 00:19 WBC RBC Hgb Hct MCV MCH MCHC RDW Plt Count MPV Neut % (Auto) Lymph % (Auto) [place] % (Auto) Eos % (Auto) Baso % (Auto) Neut # Lymph # [place] # Eos # Baso # APTT Puncture Site pCO2 pO2 HCO3 ABG pH ABG Total CO2 ABG O2 Saturation ABG Base Excess ABG Hemoglobin ABG Carboxyhemoglobin POC ABG HHb (Measured) ABG Methemoglobin Dayron Test A-a O2 Difference Respiratory Index Hgb O2 Saturation Vent Mode Mechanical Rate FiO2 Tidal Volume PEEP Sodium Potassium Chloride Carbon Dioxide Anion Gap BUN Creatinine Est GFR ( Amer) Est GFR (Non-Af Amer) POC Glucose (mg/dL) 150 H 182 H Random Glucose Calcium Phosphorus Magnesium Total Bilirubin AST ALT Alkaline Phosphatase Total Protein Albumin Globulin Albumin/Globulin Ratio C. difficile Ag & Toxin Negative Critical Care Progress Note - Nutrition Nutrition: Nutrition Category Date Time Status NPO Diet [DIET] Diets 10/07/17 Dinner Active Attending/Attestation - Attestation I have personally seen and examined this patient.: Yes I have fully participated in the care of the patient.: Yes I have reviewed all pertinent clinical information: Yes Notes (Text): 10/13/17 02:45 Agree with the resident notes, discussion was made to during the rounds. Labs reviewed Continue the current treatment
--- NOTE | 2017-10-10 15:39 | CP.PCM.PN ---
Subjective - Date & Time of Evaluation Date of Evaluation: 10/10/17 Time of Evaluation: 15:37 - Subjective Subjective: Surgery Pt s&e. Pt intubated. Alert and follows command. On heparin drip Objective - Vital Signs/Intake and Output Vital Signs (last 24 hours): Temp Pulse Resp BP Pulse Ox 99.6 F 137 H 29 H 175/96 H 92 L 10/10/17 12:00 10/10/17 15:00 10/10/17 15:00 10/10/17 14:25 10/10/17 15:00 Intake and Output: 10/10/17 10/10/17 06:59 18:59 Intake Total 2156.5 1760.5 Output Total 1240 700 Balance 916.5 1060.5 - Medications Medications: Current Medications Amlodipine Besylate (Norvasc) 10 mg PO DAILY [facility] Last Admin: 10/07/17 10:14 Dose: 10 mg Aspirin (Ecotrin) 81 mg PO DAILY [facility] Last Admin: 10/07/17 10:13 Dose: 81 mg Metronidazole (Flagyl) 500 mg in 100 mls @ 100 mls/hr IVPB Q8 [facility] Last Admin: 10/10/17 13:51 Dose: 100 mls/hr Potassium Chloride 20 meq/ (Sodium Chloride) 1,010 mls @ 125 mls/hr IV .Q8H5M [facility] Last Admin: 10/10/17 12:13 Dose: Not Given Heparin Sodium/Sodium Chloride (Heparin 80965 Units/250ml 1/2 Normal Saline) 25 ,000 units in 250 mls @ 14.664 mls/hr IV .Q17H3M PRN; Protocol; 18 UNITS/KG/HR PRN Reason: ADJUST RATE PER PROTOCOL Last Admin: 10/10/17 13:53 Dose: 15 units/kg/hr, 12.22 mls/hr Meropenem 1 gm/ Sodium (Chloride) 100 mls @ 100 mls/hr IVPB Q8H [facility] Last Admin: 10/10/17 13:50 Dose: 100 mls/hr Insulin Human Regular (Novolin R) 0 unit SC Q6H [facility] PRN Reason: Protocol Last Admin: 10/10/17 12:11 Dose: Not Given Isosorbide Mononitrate (Imdur) 60 mg PO DAILY [facility] Last Admin: 10/07/17 10:14 Dose: 60 mg Levothyroxine Sodium (Synthroid) 50 mcg PO DAILY@0630 [facility] Last Admin: 10/07/17 06:11 Dose: 50 mcg Losartan Potassium (Cozaar) 100 mg PO DAILY [facility] Last Admin: 10/07/17 10:14 Dose: 100 mg Metoprolol Tartrate (Lopressor) 5 mg IVP Q6H [facility] Midazolam HCl (Versed Inj) 2 mg IVP Q4H PRN PRN Reason: Agitation Last Admin: 10/10/17 03:56 Dose: 2 mg Nebivolol (Bystolic) 10 mg PO DAILY [facility] Last Admin: 10/07/17 10:13 Dose: 10 mg Ondansetron HCl (Zofran Inj) 4 mg IVP Q6H PRN PRN Reason: Nausea/Vomiting Last Admin: 10/07/17 20:20 Dose: 4 mg Pantoprazole Sodium (Protonix Inj) 40 mg IVP DAILY [facility] Last Admin: 10/10/17 11:31 Dose: 40 mg Polyethylene Glycol (Miralax) 17 gm PO BID PRN PRN Reason: Constipation Last Admin: 10/07/17 10:14 Dose: 17 gm Rosuvastatin Calcium (Crestor) 5 mg PO HS [facility] Last Admin: 10/07/17 22:43 Dose: Not Given Saccharomyces Boulardii (Florastor) 250 mg NG BID [facility] Last Admin: 10/10/17 11:50 Dose: 250 mg Zolpidem Tartrate (Ambien) 5 mg PO HS PRN PRN Reason: Insomnia Last Admin: 10/04/17 23:27 Dose: 5 mg - Labs Labs: 10/10/17 05:26 10/10/17 05:26 PT 12.2 SECONDS (9.7-12.2) 10/04/17 18:30 INR 1.1 10/04/17 18:30 APTT 54 SECONDS (21-34) H D 10/10/17 14:25 - Constitutional Appears: In Acute Distress - Head Exam Head Exam: ATRAUMATIC, NORMAL INSPECTION, NORMOCEPHALIC - Eye Exam Eye Exam: EOMI, Normal appearance, PERRL Pupil Exam: NORMAL ACCOMODATION, PERRL - ENT Exam ENT Exam: Mucous Membranes Moist, Normal Exam - Neck Exam Neck Exam: Full ROM, Normal Inspection. absent: Lymphadenopathy - Respiratory Exam Respiratory Exam: Clear to Ausculation Bilateral, Respiratory Distress Additional comments: ntubated at 50% Fio2 - Cardiovascular Exam Cardiovascular Exam: Tachycardia. absent: Murmur - GI/Abdominal Exam GI & Abdominal Exam: Soft, Tenderness, Normal Bowel Sounds. absent: Distended, Firm, Guarding, Rigid Additional comments: Incision C/D/I - Exam Exam: NORMAL INSPECTION Additional comments: Renee 1.5L - Extremities Exam Extremities Exam: Full ROM, Normal Inspection - Back Exam Back Exam: NORMAL INSPECTION - Neurological Exam Neurological Exam: Alert, Awake, Oriented x3 - Psychiatric Exam Psychiatric exam: Normal Affect, Normal Mood - Skin Skin Exam: Dry, Intact, Normal Color, Warm Assessment and Plan - Assessment and Plan (Free Text) Assessment: POD 3 s/p ex lap small bowel resection for ischemic bowel -ICU management -Wean vent setting -MOnitor I&O -pain control BROOKE Hinton
[2017-10-10] MEDS: Metoprolol 1 mg/ml Inj IVP SCH (17:00)
--- NOTE | 2017-10-10 17:43 | CP.PCM.PN ---
Subjective - Date & Time of Evaluation Date of Evaluation: 10/10/17 Time of Evaluation: 03:00 - Subjective Subjective: dictated Objective - Vital Signs/Intake and Output Vital Signs (last 24 hours): Temp Pulse Resp BP Pulse Ox 99.6 F 137 H 29 H 175/96 H 92 L 10/10/17 12:00 10/10/17 15:00 10/10/17 15:00 10/10/17 14:25 10/10/17 15:00 Intake and Output: 10/10/17 10/10/17 06:59 18:59 Intake Total 2156.5 1760.5 Output Total 1240 700 Balance 916.5 1060.5 - Medications Medications: Current Medications Amlodipine Besylate (Norvasc) 10 mg PO DAILY [facility] Last Admin: 10/07/17 10:14 Dose: 10 mg Aspirin (Ecotrin) 81 mg PO DAILY [facility] Last Admin: 10/07/17 10:13 Dose: 81 mg Metronidazole (Flagyl) 500 mg in 100 mls @ 100 mls/hr IVPB Q8 [facility] Last Admin: 10/10/17 13:51 Dose: 100 mls/hr Potassium Chloride 20 meq/ (Sodium Chloride) 1,010 mls @ 125 mls/hr IV .Q8H5M [facility] Last Admin: 10/10/17 16:53 Dose: 125 mls/hr Heparin Sodium/Sodium Chloride (Heparin 39028 Units/250ml 1/2 Normal Saline) 25 ,000 units in 250 mls @ 14.664 mls/hr IV .Q17H3M PRN; Protocol; 18 UNITS/KG/HR PRN Reason: ADJUST RATE PER PROTOCOL Last Admin: 10/10/17 13:53 Dose: 15 units/kg/hr, 12.22 mls/hr Meropenem 1 gm/ Sodium (Chloride) 100 mls @ 100 mls/hr IVPB Q8H [facility] Last Admin: 10/10/17 13:50 Dose: 100 mls/hr Diltiazem HCl 125 mg/ Dextrose 125 mls @ 5 mls/hr IV .Q24H TIM; 5 MG/HR PRN Reason: Protocol Last Admin: 10/10/17 16:59 Dose: 5 mg/hr, 5 mls/hr Insulin Human Regular (Novolin R) 0 unit SC Q6H [facility] PRN Reason: Protocol Last Admin: 10/10/17 12:11 Dose: Not Given Isosorbide Mononitrate (Imdur) 60 mg PO DAILY [facility] Last Admin: 10/07/17 10:14 Dose: 60 mg Levothyroxine Sodium (Synthroid) 50 mcg PO DAILY@0630 [facility] Last Admin: 10/07/17 06:11 Dose: 50 mcg Losartan Potassium (Cozaar) 100 mg PO DAILY [facility] Last Admin: 10/07/17 10:14 Dose: 100 mg Metoprolol Tartrate (Lopressor) 5 mg IVP Q6H [facility] Last Admin: 10/10/17 17:00 Dose: 5 mg Midazolam HCl (Versed Inj) 2 mg IVP Q4H PRN PRN Reason: Agitation Last Admin: 10/10/17 03:56 Dose: 2 mg Nebivolol (Bystolic) 10 mg PO DAILY [facility] Last Admin: 10/07/17 10:13 Dose: 10 mg Ondansetron HCl (Zofran Inj) 4 mg IVP Q6H PRN PRN Reason: Nausea/Vomiting Last Admin: 10/07/17 20:20 Dose: 4 mg Pantoprazole Sodium (Protonix Inj) 40 mg IVP DAILY [facility] Last Admin: 10/10/17 11:31 Dose: 40 mg Polyethylene Glycol (Miralax) 17 gm PO BID PRN PRN Reason: Constipation Last Admin: 10/07/17 10:14 Dose: 17 gm Rosuvastatin Calcium (Crestor) 5 mg PO HS [facility] Last Admin: 10/07/17 22:43 Dose: Not Given Saccharomyces Boulardii (Florastor) 250 mg NG BID [facility] Last Admin: 10/10/17 11:50 Dose: 250 mg Zolpidem Tartrate (Ambien) 5 mg PO HS PRN PRN Reason: Insomnia Last Admin: 10/04/17 23:27 Dose: 5 mg - Labs Labs: 10/10/17 05:26 10/10/17 05:26 PT 12.2 SECONDS (9.7-12.2) 10/04/17 18:30 INR 1.1 10/04/17 18:30 APTT 54 SECONDS (21-34) H D 10/10/17 14:25
[2017-10-10] MEDS ORDERED: Digoxin 500 mcg/2ml (0.5 mg/2ml) Inj IVP ONE (22:36)
[2017-10-10 23:14] VITALS: PULSE 126
--- NOTE | 2017-10-10 23:31 | PN ---
DATE: SUBJECTIVE: The patient was seen today. She was trying to talk while she was intubated and she was tachycardic. PHYSICAL EXAMINATION: GENERAL: The patient seems to be trying to tell something and seemed like as if she wanted some fluid. VITAL SIGNS: T-max was 99.6, respirations were on the vent, blood pressure 137/80, saturation was 94% and heart rate was 130. HEENT: Head is atraumatic. NECK: Supple. Remains intubated. Has an NG tube. LUNGS: Clear. Decreased breath sounds. HEART: S1 and S2 is tachycardic. ABDOMEN: Soft. Postop dressing present. EXTREMITIES: Venodyne boots present. Still remains tachycardic. Medications include Norvasc, Ecotrin, diltiazem. She is on IV heparin at this time she has Novolin R, not given Imdur, Synthroid, Cozaar. She is on meropenem, Flagyl at this time and she is status post emergency laparotomy for ischemic bowel and I think because of the ischemia while she is on IV heparin. Micro hinkle, her urine culture came out Klebsiella and that was sensitive to meropenem which she is on, hence she is on isolation also. Thus, she remains tachycardic status post laparotomy, Klebsiella UTI, has surgery for ischemic bowel and plan is to continue IV antibiotics and follow. Reji Lawson MD [facility]
[2017-10-11] MEDS: Midazolam 2 MG/2 ML VIAL IVP PRN ×2 (02:15→07:17)
[2017-10-11] MEDS: Metoprolol 1 mg/ml Inj IVP SCH ×5 (05:00→22:00)
[2017-10-11] MEDS: metroNIDAZOLE IV 500 mg/100 ml 500 MG/100 ML BAG IVPB SCH ×3 (05:05→22:00)
[2017-10-11 05:16] LABS: ARTERIAL BLOOD GAS HCO3 18.7 mmol/L (21-28); ARTERIAL BLOOD GAS HEMOGLOBIN 11.5 g/dL (11.7-17.4); ARTERIAL BLOOD GAS O2 SAT 92.2 % (95-98); ARTERIAL BLOOD GAS PCO2 26 mm/Hg (35-45); ARTERIAL BLOOD GAS PH 7.39 (7.35-7.45); ARTERIAL BLOOD GAS PO2 57 mm/Hg (80-100); ARTERIAL BLOOD GAS TCO2 16.5 mmol/L (22-28)
[2017-10-11] MEDS: (Novolin R) Insulin Human Regular 100 units/ml vial SC SCH ×4 (06:00→17:42)
[2017-10-11] MEDS: Meropenem 1 GM in Sodium Chloride 0.9% 100 ML IVPB SCH ×3 (06:45→23:00)
[2017-10-11 06:50] LABS: BASO # 0.1 K/uL (0.0-0.2); BASO % 0.9 % (0.0-2.0); EOS % 0.1 % (0.0-4.0); HEMOGLOBIN 11.6 g/dL (11.0-16.0); LYMPH # 0.9 K/uL (1.0-4.3); LYMPH % 6.7 % (20.0-40.0); MEAN CELL VOLUME 87.4 fL (81.0-99.0); MEAN CORPUSCULAR HEMOGLOBIN 28.7 pg (27.0-31.0); MEAN CORPUSCULAR HGB CONC 32.9 g/dL (33.0-37.0); MEAN PLATELET VOLUME 8.8 fL (7.2-11.7); MONO # 2.3 K/uL (0.0-0.8); NEUT # 9.6 K/uL (1.8-7.0); NEUT % 74.3 % (50.0-75.0); PLATELET COUNT 310 K/uL (130-400); RBC 4.03 Mil/uL (3.80-5.20); RED CELL DISTRIBUTION WIDTH 16.3 % (11.5-14.5); WHITE BLOOD COUNT 12.9 K/uL (4.8-10.8)
[2017-10-11 06:59] LABS: ALB/GLOB RATIO 1.1 (1.0-2.1); ALBUMIN 2.8 g/dL (3.5-5.0); ALT/SGPT 23 U/L (9-52); AST/SGOT 17 U/L (14-36); BLOOD UREA NITROGEN 34 mg/dL (7-17); CALCIUM 8.5 mg/dl (8.6-10.4); GFR AFRICAN-AMERICAN > 60; GFR NON-AFRICAN AMERICAN 54; MAGNESIUM 1.8 mg/dL (1.6-2.3)
--- NOTE | 2017-10-11 07:25 | CP.PCM.PN ---
Subjective - Date & Time of Evaluation Date of Evaluation: 10/11/17 Time of Evaluation: 07:22 - Subjective Subjective: Cardiology progress note for Dr. Amadeo Jon, DO PGY - 1 (please see nurse/physician communication for contact info) Patient seen and examined at bedside. History limited 2/2 intubation status, but patient denies any new complaints including chest pain, palpitations, dizziness, and shortness of breath. Spoke to [employer] arborist representative yesterday, who interrogated the pacemaker. Pacemaker is firing appropriately. Please see assessment and plan for further details. Objective - Vital Signs/Intake and Output Vital Signs (last 24 hours): Temp Pulse Resp BP Pulse Ox 99.4 F 101 H 27 H 146/52 L 94 L 10/11/17 04:00 10/11/17 05:01 10/11/17 05:01 10/11/17 05:01 10/11/17 05:01 Intake and Output: 10/11/17 10/11/17 06:59 18:59 Intake Total 2160.5 Output Total 750 Balance 1410.5 - Medications Medications: Current Medications Amlodipine Besylate (Norvasc) 10 mg PO DAILY [facility] Last Admin: 10/07/17 10:14 Dose: 10 mg Aspirin (Ecotrin) 81 mg PO DAILY [facility] Last Admin: 10/07/17 10:13 Dose: 81 mg Metronidazole (Flagyl) 500 mg in 100 mls @ 100 mls/hr IVPB Q8 [facility] Last Admin: 10/11/17 05:05 Dose: 100 mls/hr Heparin Sodium/Sodium Chloride (Heparin 64145 Units/250ml 1/2 Normal Saline) 25 ,000 units in 250 mls @ 14.664 mls/hr IV .Q17H3M PRN; Protocol; 18 UNITS/KG/HR PRN Reason: ADJUST RATE PER PROTOCOL Last Admin: 10/10/17 13:53 Dose: 15 units/kg/hr, 12.22 mls/hr Meropenem 1 gm/ Sodium (Chloride) 100 mls @ 100 mls/hr IVPB Q8H [facility] Last Admin: 10/11/17 06:45 Dose: 100 mls/hr Diltiazem HCl 125 mg/ Dextrose 125 mls @ 5 mls/hr IV .Q24H TIM; 5 MG/HR PRN Reason: Protocol Last Admin: 10/11/17 06:45 Dose: 10 mg/hr, 10 mls/hr Insulin Human Regular (Novolin R) 0 unit SC Q6H [facility] PRN Reason: Protocol Last Admin: 10/11/17 06:00 Dose: Not Given Isosorbide Mononitrate (Imdur) 60 mg PO DAILY [facility] Last Admin: 10/07/17 10:14 Dose: 60 mg Levothyroxine Sodium (Synthroid) 50 mcg PO DAILY@0630 [facility] Last Admin: 10/07/17 06:11 Dose: 50 mcg Losartan Potassium (Cozaar) 100 mg PO DAILY [facility] Last Admin: 10/07/17 10:14 Dose: 100 mg Metoprolol Tartrate (Lopressor) 5 mg IVP Q6H [facility] Last Admin: 10/11/17 05:00 Dose: 5 mg Midazolam HCl (Versed Inj) 2 mg IVP Q4H PRN PRN Reason: Agitation Last Admin: 10/11/17 07:17 Dose: 2 mg Nebivolol (Bystolic) 10 mg PO DAILY [facility] Last Admin: 10/07/17 10:13 Dose: 10 mg Ondansetron HCl (Zofran Inj) 4 mg IVP Q6H PRN PRN Reason: Nausea/Vomiting Last Admin: 10/10/17 21:10 Dose: 4 mg Pantoprazole Sodium (Protonix Inj) 40 mg IVP DAILY [facility] Last Admin: 10/10/17 11:31 Dose: 40 mg Polyethylene Glycol (Miralax) 17 gm PO BID PRN PRN Reason: Constipation Last Admin: 10/07/17 10:14 Dose: 17 gm Rosuvastatin Calcium (Crestor) 5 mg PO HS [facility] Last Admin: 10/07/17 22:43 Dose: Not Given Saccharomyces Boulardii (Florastor) 250 mg NG BID [facility] Last Admin: 10/10/17 18:26 Dose: 250 mg Zolpidem Tartrate (Ambien) 5 mg PO HS PRN PRN Reason: Insomnia Last Admin: 10/04/17 23:27 Dose: 5 mg - Labs Labs: 10/11/17 06:33 10/11/17 06:27 PT 12.2 SECONDS (9.7-12.2) 10/04/17 18:30 INR 1.1 10/04/17 18:30 APTT 65 SECONDS (21-34) H 10/11/17 06:27 - Additional Findings Additional findings: Physical Exam: Vital Signs as below Const'l: +Patient is intubated, but awake alert & oriented x 4, no acute distress, pleasant, obese woman Head/Neck: neck supple, no jvd, trachea midline, carotid midline, no cervical/head mass Eyes: pupils equally reactive to light and accommodation, nonicteric sclera, extraocular intact ENT: auditory acuity grossly intact, throat not congested, no nasal deformity Cardio: +Irregular rhythm; +scar on chest wall on left and right sides, regular rate, regular rhythm, no murmurs rubs gallops, no carotid bruit, normal s1, s2 Pulm: no accessory muscle use, equal normal breath sounds bilaterally, clear to ausculation bilaterally Abd: +obesity limiting exam, +slightly diminished bowel sounds in lower quadrants - resolved; soft non tender non-distended, no palpable masses Derm: no rashes, no ulcers, no lesions Extr: no edema, no cyanosis, no calf tenderness, no lesions, no varicosities Neuro: cranial nerves II-XII grossly intact, upper extremity and lower extremity 5/5 muscle strength bilaterally, no loss of sensation in upper extremities, lower extremities bilaterally and core Assessment and Plan - Assessment and Plan (Free Text) Assessment: Assessment and Plan: 77 year old female with extensive cardiac history including CABG (2012), Cath with results as below (2014), and Abnormal stress test (2017) presents with 4 hour duration of chest pain. Troponins at .0230-->.0220-->.0260. EKG showed new LBBB with NSR at 90 bpm. Cath on this admission showed further RCA stenosis at about 50%. SUMMERS to LAD patent, but large diagonal and obtuse marginal no longer patent. Please see operative note for further information. Holter in 2017 showed NSR with max HR 121, SVT at HR of 146 and rare VPC, isolated APC. Cardiac Cath in 2014 showed distal main coronary artery 70-80% concentric stenosis mid LAD 70-80% stenosis, RCA 20-30% non-obstructing stenosis , and large diagonal branch 85% proximal stenosis. with LVEF of 60%. Basal inferior wall akinetic. Previous ECHO showed borderline concentric LVH with grade I abnormal relaxation pattern, severe aortic stenosis, mild mitral regurg , and mild to moderate pulmonic regurg. LVEF was 60-65%. History of pacemaker placement per chart review. Acute Assessments: New-Onset A Fib - Pacemaker interrogated by arborist representative from [employer]. Patient's Pacemaker is functioning appropriately, is trying to compensate for patient's irregular rhythm - Rate control: Metoprolol 5 q6 - Rhythm management: Diltiazem drip - Will discuss Anticoagulation once patient is rate controlled Ischemic Bowel s/p 2 ft of small bowel resection - Heparin drip - Management per ICU and Surgery Prophylactic Measures - GI PPX: Protonix 40mg PO daily - DVT PPX: SCDs, Heparin Q12 Assessment History: Chest Pain, ACS ruled out, likely 2/2 New LBBB - EK, and LBBB not found on previous EKG's in system - Troponin X 1 at .0230, X2 at .0220; baseline is <.0120; CK-MB 1.87-1.85 - BNP elevated at 1580, past BNP's 799-955, with one at 1930 in 2012. - TSH, T4, Lipids - wnl - Mg/Phos:1.3/3.4 - CT Chest with IV: No aneurysm, no dissection, no PE - Follow up Troponins, EKGs - ECHO ordered, Nitro given, ASA 81 daily, Cozaar daily, Norvasc daily, Crestor daily New Left Bundle Branch Block - Patient already has a pacemaker placed (LBBB could be 2/2 to pacing) - Serial JOANNA panel, Serial EKGs, as above - Patient cardiac cath today, Results are: Briefly, LAD to SUMMERS is patent, but other graft is gone. There actually is no jump graft RCA is now 50% stenosed, moreso than last cath Please see operative note for further details CAD s/p CABG (2012) - Crestor, Cozaar, ASA daily HTN - Norvasc 5mg PO daily, Cozaar 100mg PO daily HLD - Crestor 5mg PO QHS (patient's home medication is lipitor) DM - HGA1C: 7.1 (09/2017), Held home medication: Metformin - Carb Consistent Diet, Accuchecks, RISS - Mod Hyperkalemia - Per primary team Elevated T. Bili - Per primary team Transaminitis - Per primary team Hypothyroidism - Per primary team History of Breast Cancer - Per primary team
[2017-10-11] MEDS: Propofol 10 mg/ml 1,000 MG/100 ML VIAL IV PRN ×2 (07:51→22:00)
--- NOTE | 2017-10-11 08:36 | RAD ---
Chest x-ray single frontal view History: Ventilator. Comparison: 10/10/2017 Findings: Lines and tubes in stable position. Right-sided pacemaker. Moderate to severe venous congestion. Right hilar prominence. Patchy increased markings at both lung bases. Impression: No significant interval change.
[2017-10-11 09:32] LABS: ANISOCYTOSIS SLIGHT; BANDS 8 % (0-2); LYMPHOCYTE 8 % (20-40); MONOCYTE 16 % (0-10); NEUTROPHIL 67 % (50-75); PLATELET ESTIMATE NORMAL (NORMAL); REACTIVE LYMPHOCYTES 1 % (0-0); TOTAL CELLS COUNTED 100
[2017-10-11 09:33] LABS: BURR CELLS SLIGHT; HYPOCHROMIC SLIGHT; POIKILOCYTOSIS SLIGHT; POLYCHROMIC SLIGHT
[2017-10-11 09:34] LABS: LARGE PLATELETS PRESENT; OVALOCYTES SLIGHT
[2017-10-11] MEDS: Saccharomyces Boulardi 250 mg Cap NG SCH ×2 (09:48→17:11)
[2017-10-11] MEDS: Heparin25000 units/250ml 1/2NS 25,000 UNITS/250 ML BAG IV PRN (10:49)
--- NOTE | 2017-10-11 11:03 | CP.CCUPN ---
<Tommy Chang - Last Filed: 10/11/17 18:23> CCU Subjective - Physician Review Subjective (Free Text): 10/10/17 17:30 add cardizem drip for rate control 10/11/17 18:15 patient seen and exmained at bedside TLC inserted today in IJ and fem removed heparin drip restarted continues to be tachy family at bedside CCU Objective - Vital Signs / Intake & Output Vital Signs (Last 4 hours): Vital Signs Temp Pulse Resp BP Pulse Ox 10/11/17 09:01 92 H 28 H 140/64 92 L 10/11/17 09:00 93 H 27 H 92 L 10/11/17 08:01 103 H 29 H 130/59 L 92 L 10/11/17 08:00 99.2 F 92 L 10/11/17 07:42 100 H 30 H 136/61 92 L Intake and Output (Last 8hrs): Intake & Output 10/10/17 10/11/17 10/11/17 22:59 06:59 14:59 Intake Total 1448.2 1600.2 744.0 Output Total 600 630 150 Balance 848.2 970.2 594.0 Weight 195 lb 12.328 oz Intake: IV 0 125 250 Intake, IV Amount 1348.2 1375.2 444.0 Left Distal Port Femoral 225 200 2.7 Left Femoral 57.5 Left Medial Port Femoral 655 80 30 Left Proximal Port 375 1000 375 Femoral Left Wrist 35.7 95.2 36.3 Oral 20 20 20 Tube Feeding 80 80 30 Output: Gastric Amount 15 0 Right Nares 15 0 Urine 585 630 150 Urethral (Garrett) 585 630 150 Other: # Bowel Movements 0 - Physical Exam Head: Positive for: Atraumatic, Normocephalic Pupils: Positive for: PERRL Extroacular Muscles: Positive for: EOMI Conjunctiva: Positive for: Normal Mouth: Positive for: Moist Mucous Membranes Respiratory/Chest: Positive for: Clear to Auscultation Cardiovascular: Positive for: Regular Rate and Rhythm Abdomen: Negative for: Tenderness, Distention Psychiatric: Positive for: Alert - Medications Active Medications: Active Medications Generic Name Dose Route Start Last Admin Trade Name Freq PRN Reason Stop Dose Admin Acetaminophen 650 mg 10/11/17 10:17 Tylenol 325mg Tab PO Q6 PRN Fever >100.4 F Amlodipine Besylate 10 mg 10/05/17 16:30 10/07/17 10:14 Norvasc PO 10 mg DAILY TIM Administration Aspirin 81 mg 10/05/17 10:00 10/07/17 10:13 Ecotrin PO 81 mg DAILY TIM Administration Metronidazole 500 mg in 100 mls @ 100 mls/hr 10/07/17 22:00 10/11/17 05:05 Flagyl IVPB 100 mls/hr Q8 TIM Administration Heparin Sodium/Sodium Chloride 25,000 units in 250 mls @ 14.664 mls/hr 16:48 10/11/17 10:49 Heparin 51598 Units/250ml 1/2 Normal Saline IV 15 units/kg/hr .Q17H3M PRN 12.22 mls/hr ADJUST RATE PER PROTOCOL Administration Protocol 18 UNITS/KG/HR Meropenem 1 gm/ Sodium 100 mls @ 100 mls/hr 10/10/17 14:00 10/11/17 06:45 Chloride IVPB 100 mls/hr Q8H TIM Administration Diltiazem HCl 125 mg/ Dextrose 125 mls @ 5 mls/hr 10/10/17 16:45 10/11/17 06: 45 IV 10 mg/hr .Q24H TIM 10 mls/hr Protocol Administration 5 MG/HR Propofol 1,000 mg in 100 mls @ 2.73 mls/hr 10/11/17 07:39 10/11/17 07:51 Diprivan IV 5 mcg/kg/min .Q24H PRN 2.73 mls/hr TITRATE PER MD ORDER Administration Protocol 5 MCG/KG/MIN Insulin Human Regular 0 unit 10/08/17 06:00 10/11/17 06:00 Novolin R SC Not Given Q6H TIM Protocol Isosorbide Mononitrate 60 mg 10/06/17 12:45 10/07/17 10:14 Imdur PO 60 mg DAILY TIM Administration Levothyroxine Sodium 50 mcg 10/05/17 06:30 10/07/17 06:11 Synthroid PO 50 mcg DAILY@0630 TIM Administration Losartan Potassium 100 mg 10/05/17 10:00 10/07/17 10:14 Cozaar PO 100 mg DAILY TIM Administration Metoprolol Tartrate 5 mg 10/10/17 17:00 10/11/17 05:00 Lopressor IVP 5 mg Q6H TIM Administration Midazolam HCl 2 mg 10/09/17 15:40 10/11/17 07:17 Versed Inj IVP 2 mg Q4H PRN Administration Agitation Nebivolol 10 mg 10/05/17 10:30 10/07/17 10:13 Bystolic PO 10 mg DAILY TIM Administration Ondansetron HCl 4 mg 10/07/17 19:28 10/10/17 21:10 Zofran Inj IVP 4 mg Q6H PRN Administration Nausea/Vomiting Pantoprazole Sodium 40 mg 10/08/17 10:00 10/11/17 09:48 Protonix Inj IVP 40 mg DAILY TIM Administration Polyethylene Glycol 17 gm 10/06/17 15:08 10/07/17 10:14 Miralax PO 17 gm BID PRN Administration Constipation Rosuvastatin Calcium 5 mg 10/04/17 22:00 10/07/17 22:43 Crestor PO Not Given HS TIM Saccharomyces Boulardii 250 mg 10/10/17 11:15 10/11/17 09:48 Florastor NG 250 mg BID TIM Administration Zolpidem Tartrate 5 mg 10/04/17 22:00 10/04/17 23:27 Ambien PO 5 mg HS PRN Administration Insomnia - Patient Studies Lab Studies: Microbiology Studies 10/07/17 21:36 Blood Culture - Preliminary Blood-Venous NO GROWTH AFTER 3 DAYS 10/06/17 16:45 Blood Culture - Preliminary Blood NO GROWTH AFTER 4 DAYS 10/06/17 17:16 Blood Culture - Preliminary Blood NO GROWTH AFTER 4 DAYS Lab Studies 10/11/17 10/11/17 10/11/17 Range/Units 06:33 06:27 06:27 WBC 12.9 H (4.8-10.8) K/uL RBC 4.03 (3.80-5.20) Mil/uL Hgb 11.6 (11.0-16.0) g/dL Hct 35.2 (34.0-47.0) % MCV 87.4 (81.0-99.0) fL MCH 28.7 (27.0-31.0) pg MCHC 32.9 L (33.0-37.0) g/dL RDW 16.3 H (11.5-14.5) % Plt Count 310 (130-400) K/uL MPV 8.8 (7.2-11.7) fL Neut % (Auto) 74.3 (50.0-75.0) % Lymph % (Auto) 6.7 L (20.0-40.0) % Valley % (Auto) 18.0 H (0.0-10.0) % Eos % (Auto) 0.1 (0.0-4.0) % Baso % (Auto) 0.9 (0.0-2.0) % Neut # 9.6 H (1.8-7.0) K/uL Lymph # 0.9 L (1.0-4.3) K/uL Valley # 2.3 H (0.0-0.8) K/uL Eos # 0.0 (0.0-0.7) K/uL Baso # 0.1 (0.0-0.2) K/uL Neutrophils % (Manual) 67 (50-75) % Band Neutrophils % 8 H (0-2) % Lymphocytes % (Manual) 8 L (20-40) % Reactive Lymphs % 1 H (0-0) % Monocytes % (Manual) 16 H (0-10) % Platelet Estimate Normal (NORMAL) Large Platelets Present Polychromasia Slight Hypochromasia (manual) Slight Poikilocytosis (manual Slight Anisocytosis (manual) Slight Ovalocytes Slight Angelo Cells Slight APTT 65 H (21-34) SECONDS Puncture Site pCO2 (35-45) mm/Hg pO2 (80-100) mm/Hg HCO3 (21-28) mmol/L ABG pH (7.35-7.45) ABG Total CO2 (22-28) mmol/L ABG O2 Saturation (95-98) % ABG Base Excess (-2.0-3.0) mmol/L ABG Hemoglobin (11.7-17.4) g/dL ABG Carboxyhemoglobin (0.5-1.5) % POC ABG HHb (Measured) (0.0-5.0) % ABG Methemoglobin (0.0-3.0) % Dayron Test A-a O2 Difference mm/Hg Respiratory Index Hgb O2 Saturation (95.0-98.0) % Vent Mode Mechanical Rate FiO2 % Tidal Volume PEEP Sodium 151 H (132-148) mmol/L Potassium 3.6 (3.6-5.2) mmol/L Chloride 123 H (98-107) mmol/L Carbon Dioxide 17 L (22-30) mmol/L Anion Gap 15 (10-20) BUN 34 H (7-17) mg/dL Creatinine 1.0 (0.7-1.2) mg/dL Est GFR ( Amer) > 60 Est GFR (Non-Af Amer) 54 POC Glucose (mg/dL) (65-110) mg/dL Random Glucose 127 H (65-105) mg/dL Calcium 8.5 L (8.6-10.4) mg/dl Phosphorus 1.8 L (2.5-4.5) mg/dL Magnesium 1.8 (1.6-2.3) mg/dL Total Bilirubin 0.9 (0.2-1.3) mg/dL AST 17 (14-36) U/L ALT 23 (9-52) U/L Alkaline Phosphatase 109 (38-126) U/L Total Protein 5.5 L (6.3-8.3) g/dL Albumin 2.8 L (3.5-5.0) g/dL Globulin 2.6 (2.2-3.9) gm/dL Albumin/Globulin Ratio 1.1 (1.0-2.1) 10/11/17 10/11/17 10/10/17 Range/Units 05:23 05:07 23:24 WBC (4.8-10.8) K/uL RBC (3.80-5.20) Mil/uL Hgb (11.0-16.0) g/dL Hct (34.0-47.0) % MCV (81.0-99.0) fL MCH (27.0-31.0) pg MCHC (33.0-37.0) g/dL RDW (11.5-14.5) % Plt Count (130-400) K/uL MPV (7.2-11.7) fL Neut % (Auto) (50.0-75.0) % Lymph % (Auto) (20.0-40.0) % Valley % (Auto) (0.0-10.0) % Eos % (Auto) (0.0-4.0) % Baso % (Auto) (0.0-2.0) % Neut # (1.8-7.0) K/uL Lymph # (1.0-4.3) K/uL Valley # (0.0-0.8) K/uL Eos # (0.0-0.7) K/uL Baso # (0.0-0.2) K/uL Neutrophils % (Manual) (50-75) % Band Neutrophils % (0-2) % Lymphocytes % (Manual) (20-40) % Reactive Lymphs % (0-0) % Monocytes % (Manual) (0-10) % Platelet Estimate (NORMAL) Large Platelets Polychromasia Hypochromasia (manual) Poikilocytosis (manual Anisocytosis (manual) Ovalocytes Angelo Cells APTT (21-34) SECONDS Puncture Site Rb pCO2 26 L (35-45) mm/Hg pO2 57 L (80-100) mm/Hg HCO3 18.7 L (21-28) mmol/L ABG pH 7.39 (7.35-7.45) ABG Total CO2 16.5 L (22-28) mmol/L ABG O2 Saturation 92.2 L (95-98) % ABG Base Excess -7.8 L (-2.0-3.0) mmol/L ABG Hemoglobin 11.5 L (11.7-17.4) g/dL ABG Carboxyhemoglobin 1.0 (0.5-1.5) % POC ABG HHb (Measured) 7.7 H (0.0-5.0) % ABG Methemoglobin 0.5 (0.0-3.0) % Dayron Test Na A-a O2 Difference 338.0 mm/Hg Respiratory Index 5.9 Hgb O2 Saturation 90.9 L (95.0-98.0) % Vent Mode Prvc Mechanical Rate 12 FiO2 60.0 % Tidal Volume 500 PEEP 5 Sodium (132-148) mmol/L Potassium (3.6-5.2) mmol/L Chloride (98-107) mmol/L Carbon Dioxide (22-30) mmol/L Anion Gap (10-20) BUN (7-17) mg/dL Creatinine (0.7-1.2) mg/dL Est GFR ( Amer) Est GFR (Non-Af Amer) POC Glucose (mg/dL) 135 H 130 H (65-110) mg/dL Random Glucose (65-105) mg/dL Calcium (8.6-10.4) mg/dl Phosphorus (2.5-4.5) mg/dL Magnesium (1.6-2.3) mg/dL Total Bilirubin (0.2-1.3) mg/dL AST (14-36) U/L ALT (9-52) U/L Alkaline Phosphatase (38-126) U/L Total Protein (6.3-8.3) g/dL Albumin (3.5-5.0) g/dL Globulin (2.2-3.9) gm/dL Albumin/Globulin Ratio (1.0-2.1) 10/10/17 10/10/17 10/10/17 Range/Units 21:24 17:52 14:25 WBC (4.8-10.8) K/uL RBC (3.80-5.20) Mil/uL Hgb (11.0-16.0) g/dL Hct (34.0-47.0) % MCV (81.0-99.0) fL MCH (27.0-31.0) pg MCHC (33.0-37.0) g/dL RDW (11.5-14.5) % Plt Count (130-400) K/uL MPV (7.2-11.7) fL Neut % (Auto) (50.0-75.0) % Lymph % (Auto) (20.0-40.0) % Valley % (Auto) (0.0-10.0) % Eos % (Auto) (0.0-4.0) % Baso % (Auto) (0.0-2.0) % Neut # (1.8-7.0) K/uL Lymph # (1.0-4.3) K/uL Valley # (0.0-0.8) K/uL Eos # (0.0-0.7) K/uL Baso # (0.0-0.2) K/uL Neutrophils % (Manual) (50-75) % Band Neutrophils % (0-2) % Lymphocytes % (Manual) (20-40) % Reactive Lymphs % (0-0) % Monocytes % (Manual) (0-10) % Platelet Estimate (NORMAL) Large Platelets Polychromasia Hypochromasia (manual) Poikilocytosis (manual Anisocytosis (manual) Ovalocytes Bertram Cells APTT 66 H D 54 H D (21-34) SECONDS Puncture Site pCO2 (35-45) mm/Hg pO2 (80-100) mm/Hg HCO3 (21-28) mmol/L ABG pH (7.35-7.45) ABG Total CO2 (22-28) mmol/L ABG O2 Saturation (95-98) % ABG Base Excess (-2.0-3.0) mmol/L ABG Hemoglobin (11.7-17.4) g/dL ABG Carboxyhemoglobin (0.5-1.5) % POC ABG HHb (Measured) (0.0-5.0) % ABG Methemoglobin (0.0-3.0) % Dayron Test A-a O2 Difference mm/Hg Respiratory Index Hgb O2 Saturation (95.0-98.0) % Vent Mode Mechanical Rate FiO2 % Tidal Volume PEEP Sodium (132-148) mmol/L Potassium (3.6-5.2) mmol/L Chloride (98-107) mmol/L Carbon Dioxide (22-30) mmol/L Anion Gap (10-20) BUN (7-17) mg/dL Creatinine (0.7-1.2) mg/dL Est GFR ( Amer) Est GFR (Non-Af Amer) POC Glucose (mg/dL) 123 H (65-110) mg/dL Random Glucose (65-105) mg/dL Calcium (8.6-10.4) mg/dl Phosphorus (2.5-4.5) mg/dL Magnesium (1.6-2.3) mg/dL Total Bilirubin (0.2-1.3) mg/dL AST (14-36) U/L ALT (9-52) U/L Alkaline Phosphatase (38-126) U/L Total Protein (6.3-8.3) g/dL Albumin (3.5-5.0) g/dL Globulin (2.2-3.9) gm/dL Albumin/Globulin Ratio (1.0-2.1) 10/10/17 Range/Units 12:03 WBC (4.8-10.8) K/uL RBC (3.80-5.20) Mil/uL Hgb (11.0-16.0) g/dL Hct (34.0-47.0) % MCV (81.0-99.0) fL MCH (27.0-31.0) pg MCHC (33.0-37.0) g/dL RDW (11.5-14.5) % Plt Count (130-400) K/uL MPV (7.2-11.7) fL Neut % (Auto) (50.0-75.0) % Lymph % (Auto) (20.0-40.0) % Valley % (Auto) (0.0-10.0) % Eos % (Auto) (0.0-4.0) % Baso % (Auto) (0.0-2.0) % Neut # (1.8-7.0) K/uL Lymph # (1.0-4.3) K/uL Valley # (0.0-0.8) K/uL Eos # (0.0-0.7) K/uL Baso # (0.0-0.2) K/uL Neutrophils % (Manual) (50-75) % Band Neutrophils % (0-2) % Lymphocytes % (Manual) (20-40) % Reactive Lymphs % (0-0) % Monocytes % (Manual) (0-10) % Platelet Estimate (NORMAL) Large Platelets Polychromasia Hypochromasia (manual) Poikilocytosis (manual Anisocytosis (manual) Ovalocytes Angelo Cells APTT (21-34) SECONDS Puncture Site pCO2 (35-45) mm/Hg pO2 (80-100) mm/Hg HCO3 (21-28) mmol/L ABG pH (7.35-7.45) ABG Total CO2 (22-28) mmol/L ABG O2 Saturation (95-98) % ABG Base Excess (-2.0-3.0) mmol/L ABG Hemoglobin (11.7-17.4) g/dL ABG Carboxyhemoglobin (0.5-1.5) % POC ABG HHb (Measured) (0.0-5.0) % ABG Methemoglobin (0.0-3.0) % Dayron Test A-a O2 Difference mm/Hg Respiratory Index Hgb O2 Saturation (95.0-98.0) % Vent Mode Mechanical Rate FiO2 % Tidal Volume PEEP Sodium (132-148) mmol/L Potassium (3.6-5.2) mmol/L Chloride (98-107) mmol/L Carbon Dioxide (22-30) mmol/L Anion Gap (10-20) BUN (7-17) mg/dL Creatinine (0.7-1.2) mg/dL Est GFR ( Amer) Est GFR (Non-Af Amer) POC Glucose (mg/dL) 99 (65-110) mg/dL Random Glucose (65-105) mg/dL Calcium (8.6-10.4) mg/dl Phosphorus (2.5-4.5) mg/dL Magnesium (1.6-2.3) mg/dL Total Bilirubin (0.2-1.3) mg/dL AST (14-36) U/L ALT (9-52) U/L Alkaline Phosphatase (38-126) U/L Total Protein (6.3-8.3) g/dL Albumin (3.5-5.0) g/dL Globulin (2.2-3.9) gm/dL Albumin/Globulin Ratio (1.0-2.1) Laboratory Results - last 24 hr 10/10/17 10/10/17 10/10/17 12:03 14:25 17:52 WBC RBC Hgb Hct MCV MCH MCHC RDW Plt Count MPV Neut % (Auto) Lymph % (Auto) Valley % (Auto) Eos % (Auto) Baso % (Auto) Neut # Lymph # Valley # Eos # Baso # Neutrophils % (Manual) Band Neutrophils % Lymphocytes % (Manual) Reactive Lymphs % Monocytes % (Manual) Platelet Estimate Large Platelets Polychromasia Hypochromasia (manual) Poikilocytosis (manual Anisocytosis (manual) Ovalocytes Bertram Cells APTT 54 H D Puncture Site pCO2 pO2 HCO3 ABG pH ABG Total CO2 ABG O2 Saturation ABG Base Excess ABG Hemoglobin ABG Carboxyhemoglobin POC ABG HHb (Measured) ABG Methemoglobin Dayron Test A-a O2 Difference Respiratory Index Hgb O2 Saturation Vent Mode Mechanical Rate FiO2 Tidal Volume PEEP Sodium Potassium Chloride Carbon Dioxide Anion Gap BUN Creatinine Est GFR ( Amer) Est GFR (Non-Af Amer) POC Glucose (mg/dL) 99 123 H Random Glucose Calcium Phosphorus Magnesium Total Bilirubin AST ALT Alkaline Phosphatase Total Protein Albumin Globulin Albumin/Globulin Ratio 10/10/17 10/10/17 10/11/17 21:24 23:24 05:07 WBC RBC Hgb Hct MCV MCH MCHC RDW Plt Count MPV Neut % (Auto) Lymph % (Auto) Valley % (Auto) Eos % (Auto) Baso % (Auto) Neut # Lymph # Valley # Eos # Baso # Neutrophils % (Manual) Band Neutrophils % Lymphocytes % (Manual) Reactive Lymphs % Monocytes % (Manual) Platelet Estimate Large Platelets Polychromasia Hypochromasia (manual) Poikilocytosis (manual Anisocytosis (manual) Ovalocytes Bertram Cells APTT 66 H D Puncture Site Rb pCO2 26 L pO2 57 L HCO3 18.7 L ABG pH 7.39 ABG Total CO2 16.5 L ABG O2 Saturation 92.2 L ABG Base Excess -7.8 L ABG Hemoglobin 11.5 L ABG Carboxyhemoglobin 1.0 POC ABG HHb (Measured) 7.7 H ABG Methemoglobin 0.5 Dayron Test Na A-a O2 Difference 338.0 Respiratory Index 5.9 Hgb O2 Saturation 90.9 L Vent Mode Prvc Mechanical Rate 12 FiO2 60.0 Tidal Volume 500 PEEP 5 Sodium Potassium Chloride Carbon Dioxide Anion Gap BUN Creatinine Est GFR ( Amer) Est GFR (Non-Af Amer) POC Glucose (mg/dL) 130 H Random Glucose Calcium Phosphorus Magnesium Total Bilirubin AST ALT Alkaline Phosphatase Total Protein Albumin Globulin Albumin/Globulin Ratio 10/11/17 10/11/17 10/11/17 05:23 06:27 06:27 WBC RBC Hgb Hct MCV MCH MCHC RDW Plt Count MPV Neut % (Auto) Lymph % (Auto) Valley % (Auto) Eos % (Auto) Baso % (Auto) Neut # Lymph # Valley # Eos # Baso # Neutrophils % (Manual) Band Neutrophils % Lymphocytes % (Manual) Reactive Lymphs % Monocytes % (Manual) Platelet Estimate Large Platelets Polychromasia Hypochromasia (manual) Poikilocytosis (manual Anisocytosis (manual) Ovalocytes Bertram Cells APTT 65 H Puncture Site pCO2 pO2 HCO3 ABG pH ABG Total CO2 ABG O2 Saturation ABG Base Excess ABG Hemoglobin ABG Carboxyhemoglobin POC ABG HHb (Measured) ABG Methemoglobin Dayron Test A-a O2 Difference Respiratory Index Hgb O2 Saturation Vent Mode Mechanical Rate FiO2 Tidal Volume PEEP Sodium 151 H Potassium 3.6 Chloride 123 H Carbon Dioxide 17 L Anion Gap 15 BUN 34 H Creatinine 1.0 Est GFR ( Amer) > 60 Est GFR (Non-Af Amer) 54 POC Glucose (mg/dL) 135 H Random Glucose 127 H Calcium 8.5 L Phosphorus 1.8 L Magnesium 1.8 Total Bilirubin 0.9 AST 17 ALT 23 Alkaline Phosphatase 109 Total Protein 5.5 L Albumin 2.8 L Globulin 2.6 Albumin/Globulin Ratio 1.1 10/11/17 06:33 WBC 12.9 H RBC 4.03 Hgb 11.6 Hct 35.2 MCV 87.4 MCH 28.7 MCHC 32.9 L RDW 16.3 H Plt Count 310 MPV 8.8 Neut % (Auto) 74.3 Lymph % (Auto) 6.7 L Valley % (Auto) 18.0 H Eos % (Auto) 0.1 Baso % (Auto) 0.9 Neut # 9.6 H Lymph # 0.9 L Valley # 2.3 H Eos # 0.0 Baso # 0.1 Neutrophils % (Manual) 67 Band Neutrophils % 8 H Lymphocytes % (Manual) 8 L Reactive Lymphs % 1 H Monocytes % (Manual) 16 H Platelet Estimate Normal Large Platelets Present Polychromasia Slight Hypochromasia (manual) Slight Poikilocytosis (manual Slight Anisocytosis (manual) Slight Ovalocytes Slight Angelo Cells Slight APTT Puncture Site pCO2 pO2 HCO3 ABG pH ABG Total CO2 ABG O2 Saturation ABG Base Excess ABG Hemoglobin ABG Carboxyhemoglobin POC ABG HHb (Measured) ABG Methemoglobin Dayron Test A-a O2 Difference Respiratory Index Hgb O2 Saturation Vent Mode Mechanical Rate FiO2 Tidal Volume PEEP Sodium Potassium Chloride Carbon Dioxide Anion Gap BUN Creatinine Est GFR ( Amer) Est GFR (Non-Af Amer) POC Glucose (mg/dL) Random Glucose Calcium Phosphorus Magnesium Total Bilirubin AST ALT Alkaline Phosphatase Total Protein Albumin Globulin Albumin/Globulin Ratio EKG/Cardiology Studies: Cardiology / EKG Studies 10/11/17 10:17 ELECTROCARDIOGRAM Stat Comment: Mode Of Transportation: Reason For Exam: sob. tachy Isolation: Contact Fingerstick Blood Sugar Results: 135 Critical Care Progress Note - Nutrition Nutrition: Nutrition Category Date Time Status NPO Diet [DIET] Diets 10/07/17 Dinner Active Assessment/Plan - Assessment and Plan (Free Text) Assessment: 77F s/p small bowel resection for ischemic bowel Plan: Cardio: Cards (Amadeo) tachy s/p pacemaker lopressor 5 iv q6 diltizem drip heparin drip Fem TLC removed, L. 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 NPO flagyl, merrem : garrett, good UO Endo: DM ISS PPX: protonix heparin drip <Delvin Frias S - Last Filed: 10/11/17 19:02> CCU Objective - Vital Signs / Intake & Output Vital Signs (Last 4 hours): Vital Signs Temp Pulse Resp BP Pulse Ox 10/11/17 18:01 93 H 13 133/59 L 95 10/11/17 18:00 93 H 27 H 94 L 10/11/17 17:01 102 H 27 H 139/49 L 93 L 10/11/17 17:00 100 H 27 H 93 L 10/11/17 16:02 106 H 15 155/56 H 93 L 10/11/17 16:00 98.6 F 102 H 14 92 L 10/11/17 15:01 87 28 H 149/53 L 93 L 10/11/17 15:00 93 H 28 H 93 L Intake and Output (Last 8hrs): Intake & Output 10/11/17 10/11/17 10/11/17 06:59 14:59 22:59 Intake Total 1600.2 1566.3 285.8 Output Total 630 460 390 Balance 970.2 1106.3 -104.2 Weight 195 lb 12.328 oz 195 lb 12.328 oz Intake: IV 125 280 125 Intake, IV Amount 1375.2 1146.3 110.8 Left Distal Port Femoral 200 10.8 Left Distal Port 200 Subclavian Left Medial Port Femoral 80 60 Left Medial Port 20 40 Subclavian Left Proximal Port 1000 750 Femoral Left Proximal Port 8.2 22.0 Subclavian Left Wrist 95.2 97.3 48.8 Oral 20 70 10 Tube Feeding 80 70 40 Output: Gastric Amount 0 Right Nares 0 Urine 630 460 390 Urethral (Garrett) 630 460 390 Other: # Bowel Movements 0 0 - Medications Active Medications: Active Medications Generic Name Dose Route Start Last Admin Trade Name Freq PRN Reason Stop Dose Admin Acetaminophen 650 mg 10/11/17 10:17 Tylenol 325mg Tab PO Q6 PRN Fever >100.4 F Amlodipine Besylate 10 mg 10/12/17 10:00 Norvasc PO DAILY [facility] Aspirin 81 mg 10/12/17 10:00 Aspirin Chewable PO DAILY [facility] Metronidazole 500 mg in 100 mls @ 100 mls/hr 10/07/17 22:00 10/11/17 13:18 Flagyl IVPB 100 mls/hr Q8 TIM Administration Heparin Sodium/Sodium Chloride 25,000 units in 250 mls @ 14.664 mls/hr 16:48 10/11/17 10:49 Heparin 50071 Units/250ml 1/2 Normal Saline IV 15 units/kg/hr .Q17H3M PRN 12.22 mls/hr ADJUST RATE PER PROTOCOL Administration Protocol 18 UNITS/KG/HR Meropenem 1 gm/ Sodium 100 mls @ 100 mls/hr 10/10/17 14:00 10/11/17 13:22 Chloride IVPB 100 mls/hr Q8H TIM Administration Diltiazem HCl 125 mg/ Dextrose 125 mls @ 5 mls/hr 10/10/17 16:45 10/11/17 17: 10 IV 10 mg/hr .Q24H TIM 10 mls/hr Protocol Administration 5 MG/HR Propofol 1,000 mg in 100 mls @ 2.73 mls/hr 10/11/17 07:39 10/11/17 13:32 Diprivan IV 10 mcg/kg/min .Q24H PRN 5.459 mls/hr TITRATE PER MD ORDER Titration Protocol 5 MCG/KG/MIN Insulin Human Regular 0 unit 10/08/17 06:00 10/11/17 17:42 Novolin R SC Not Given Q6H [facility] Protocol Isosorbide Mononitrate 60 mg 10/12/17 10:00 Imdur PO DAILY [facility] Levothyroxine Sodium 50 mcg 10/12/17 06:30 Synthroid PO DAILY@0630 [facility] Losartan Potassium 100 mg 10/12/17 10:00 Cozaar PO DAILY TIM Metoprolol Tartrate 5 mg 10/10/17 17:00 10/11/17 17:10 Lopressor IVP 5 mg Q6H TIM Administration Midazolam HCl 2 mg 10/09/17 15:40 10/11/17 07:17 Versed Inj IVP 2 mg Q4H PRN Administration Agitation Ondansetron HCl 4 mg 10/07/17 19:28 10/10/17 21:10 Zofran Inj IVP 4 mg Q6H PRN Administration Nausea/Vomiting Pantoprazole Sodium 40 mg 10/08/17 10:00 10/11/17 09:48 Protonix Inj IVP 40 mg DAILY TIM Administration Polyethylene Glycol 17 gm 10/06/17 15:08 10/07/17 10:14 Miralax PO 17 gm BID PRN Administration Constipation Rosuvastatin Calcium 5 mg 10/11/17 22:00 Crestor NG HS TIM Saccharomyces Boulardii 250 mg 10/10/17 11:15 10/11/17 17:11 Florastor NG 250 mg BID TIM Administration Vitamin A 0.5 ea 10/11/17 20:00 Vitamin A & D Oint Ud Foilpak TOP Q4 [facility] - Patient Studies Lab Studies: Microbiology Studies 10/06/17 16:45 Blood Culture - Final Blood NO GROWTH AFTER 5 DAYS Gram Stain - Final TEST NOT PERFORMED 10/06/17 17:16 Blood Culture - Final Blood NO GROWTH AFTER 5 DAYS Gram Stain - Final TEST NOT PERFORMED 10/07/17 21:36 Blood Culture - Preliminary Blood-Venous NO GROWTH AFTER 3 DAYS Lab Studies 10/11/17 10/11/17 10/11/17 Range/Units 17:36 12:13 11:02 WBC (4.8-10.8) K/uL RBC (3.80-5.20) Mil/uL Hgb (11.0-16.0) g/dL Hct (34.0-47.0) % MCV (81.0-99.0) fL MCH (27.0-31.0) pg MCHC (33.0-37.0) g/dL RDW (11.5-14.5) % Plt Count (130-400) K/uL MPV (7.2-11.7) fL Neut % (Auto) (50.0-75.0) % Lymph % (Auto) (20.0-40.0) % Valley % (Auto) (0.0-10.0) % Eos % (Auto) (0.0-4.0) % Baso % (Auto) (0.0-2.0) % Neut # (1.8-7.0) K/uL Lymph # (1.0-4.3) K/uL Valley # (0.0-0.8) K/uL Eos # (0.0-0.7) K/uL Baso # (0.0-0.2) K/uL Neutrophils % (Manual) (50-75) % Band Neutrophils % (0-2) % Lymphocytes % (Manual) (20-40) % Reactive Lymphs % (0-0) % Monocytes % (Manual) (0-10) % Platelet Estimate (NORMAL) Large Platelets Polychromasia Hypochromasia (manual) Poikilocytosis (manual Anisocytosis (manual) Ovalocytes Angelo Cells APTT (21-34) SECONDS Puncture Site pCO2 (35-45) mm/Hg pO2 (80-100) mm/Hg HCO3 (21-28) mmol/L ABG pH (7.35-7.45) ABG Total CO2 (22-28) mmol/L ABG O2 Saturation (95-98) % ABG Base Excess (-2.0-3.0) mmol/L ABG Hemoglobin (11.7-17.4) g/dL ABG Carboxyhemoglobin (0.5-1.5) % POC ABG HHb (Measured) (0.0-5.0) % ABG Methemoglobin (0.0-3.0) % Dayron Test A-a O2 Difference mm/Hg Respiratory Index Hgb O2 Saturation (95.0-98.0) % Vent Mode Mechanical Rate FiO2 % Tidal Volume PEEP Sodium (132-148) mmol/L Potassium (3.6-5.2) mmol/L Chloride (98-107) mmol/L Carbon Dioxide (22-30) mmol/L Anion Gap (10-20) BUN (7-17) mg/dL Creatinine (0.7-1.2) mg/dL Est GFR ( Amer) Est GFR (Non-Af Amer) POC Glucose (mg/dL) 128 H 165 H (65-110) mg/dL Random Glucose (65-105) mg/dL Calcium (8.6-10.4) mg/dl Phosphorus (2.5-4.5) mg/dL Magnesium (1.6-2.3) mg/dL Total Bilirubin (0.2-1.3) mg/dL AST (14-36) U/L ALT (9-52) U/L Alkaline Phosphatase (38-126) U/L Troponin I 0.2310 H* (0.00-0.120) ng/mL NT-Pro-B Natriuret Pep 47706 H (0-900) pg/mL Total Protein (6.3-8.3) g/dL Albumin (3.5-5.0) g/dL Globulin (2.2-3.9) gm/dL Albumin/Globulin Ratio (1.0-2.1) 10/11/17 10/11/17 10/11/17 Range/Units 06:33 06:27 06:27 WBC 12.9 H (4.8-10.8) K/uL RBC 4.03 (3.80-5.20) Mil/uL Hgb 11.6 (11.0-16.0) g/dL Hct 35.2 (34.0-47.0) % MCV 87.4 (81.0-99.0) fL MCH 28.7 (27.0-31.0) pg MCHC 32.9 L (33.0-37.0) g/dL RDW 16.3 H (11.5-14.5) % Plt Count 310 (130-400) K/uL MPV 8.8 (7.2-11.7) fL Neut % (Auto) 74.3 (50.0-75.0) % Lymph % (Auto) 6.7 L (20.0-40.0) % Valley % (Auto) 18.0 H (0.0-10.0) % Eos % (Auto) 0.1 (0.0-4.0) % Baso % (Auto) 0.9 (0.0-2.0) % Neut # 9.6 H (1.8-7.0) K/uL Lymph # 0.9 L (1.0-4.3) K/uL Valley # 2.3 H (0.0-0.8) K/uL Eos # 0.0 (0.0-0.7) K/uL Baso # 0.1 (0.0-0.2) K/uL Neutrophils % (Manual) 67 (50-75) % Band Neutrophils % 8 H (0-2) % Lymphocytes % (Manual) 8 L (20-40) % Reactive Lymphs % 1 H (0-0) % Monocytes % (Manual) 16 H (0-10) % Platelet Estimate Normal (NORMAL) Large Platelets Present Polychromasia Slight Hypochromasia (manual) Slight Poikilocytosis (manual Slight Anisocytosis (manual) Slight Ovalocytes Slight Angelo Cells Slight APTT 65 H (21-34) SECONDS Puncture Site pCO2 (35-45) mm/Hg pO2 (80-100) mm/Hg HCO3 (21-28) mmol/L ABG pH (7.35-7.45) ABG Total CO2 (22-28) mmol/L ABG O2 Saturation (95-98) % ABG Base Excess (-2.0-3.0) mmol/L ABG Hemoglobin (11.7-17.4) g/dL ABG Carboxyhemoglobin (0.5-1.5) % POC ABG HHb (Measured) (0.0-5.0) % ABG Methemoglobin (0.0-3.0) % Dayron Test A-a O2 Difference mm/Hg Respiratory Index Hgb O2 Saturation (95.0-98.0) % Vent Mode Mechanical Rate FiO2 % Tidal Volume PEEP Sodium 151 H (132-148) mmol/L Potassium 3.6 (3.6-5.2) mmol/L Chloride 123 H (98-107) mmol/L Carbon Dioxide 17 L (22-30) mmol/L Anion Gap 15 (10-20) BUN 34 H (7-17) mg/dL Creatinine 1.0 (0.7-1.2) mg/dL Est GFR ( Amer) > 60 Est GFR (Non-Af Amer) 54 POC Glucose (mg/dL) (65-110) mg/dL Random Glucose 127 H (65-105) mg/dL Calcium 8.5 L (8.6-10.4) mg/dl Phosphorus 1.8 L (2.5-4.5) mg/dL Magnesium 1.8 (1.6-2.3) mg/dL Total Bilirubin 0.9 (0.2-1.3) mg/dL AST 17 (14-36) U/L ALT 23 (9-52) U/L Alkaline Phosphatase 109 (38-126) U/L Troponin I (0.00-0.120) ng/mL NT-Pro-B Natriuret Pep (0-900) pg/mL Total Protein 5.5 L (6.3-8.3) g/dL Albumin 2.8 L (3.5-5.0) g/dL Globulin 2.6 (2.2-3.9) gm/dL Albumin/Globulin Ratio 1.1 (1.0-2.1) 10/11/17 10/11/17 10/10/17 Range/Units 05:23 05:07 23:24 WBC (4.8-10.8) K/uL RBC (3.80-5.20) Mil/uL Hgb (11.0-16.0) g/dL Hct (34.0-47.0) % MCV (81.0-99.0) fL MCH (27.0-31.0) pg MCHC (33.0-37.0) g/dL RDW (11.5-14.5) % Plt Count (130-400) K/uL MPV (7.2-11.7) fL Neut % (Auto) (50.0-75.0) % Lymph % (Auto) (20.0-40.0) % Valley % (Auto) (0.0-10.0) % Eos % (Auto) (0.0-4.0) % Baso % (Auto) (0.0-2.0) % Neut # (1.8-7.0) K/uL Lymph # (1.0-4.3) K/uL Valley # (0.0-0.8) K/uL Eos # (0.0-0.7) K/uL Baso # (0.0-0.2) K/uL Neutrophils % (Manual) (50-75) % Band Neutrophils % (0-2) % Lymphocytes % (Manual) (20-40) % Reactive Lymphs % (0-0) % Monocytes % (Manual) (0-10) % Platelet Estimate (NORMAL) Large Platelets Polychromasia Hypochromasia (manual) Poikilocytosis (manual Anisocytosis (manual) Ovalocytes Bertram Cells APTT (21-34) SECONDS Puncture Site Rb pCO2 26 L (35-45) mm/Hg pO2 57 L (80-100) mm/Hg HCO3 18.7 L (21-28) mmol/L ABG pH 7.39 (7.35-7.45) ABG Total CO2 16.5 L (22-28) mmol/L ABG O2 Saturation 92.2 L (95-98) % ABG Base Excess -7.8 L (-2.0-3.0) mmol/L ABG Hemoglobin 11.5 L (11.7-17.4) g/dL ABG Carboxyhemoglobin 1.0 (0.5-1.5) % POC ABG HHb (Measured) 7.7 H (0.0-5.0) % ABG Methemoglobin 0.5 (0.0-3.0) % Dayron Test Na A-a O2 Difference 338.0 mm/Hg Respiratory Index 5.9 Hgb O2 Saturation 90.9 L (95.0-98.0) % Vent Mode Prvc Mechanical Rate 12 FiO2 60.0 % Tidal Volume 500 PEEP 5 Sodium (132-148) mmol/L Potassium (3.6-5.2) mmol/L Chloride (98-107) mmol/L Carbon Dioxide (22-30) mmol/L Anion Gap (10-20) BUN (7-17) mg/dL Creatinine (0.7-1.2) mg/dL Est GFR ( Amer) Est GFR (Non-Af Amer) POC Glucose (mg/dL) 135 H 130 H (65-110) mg/dL Random Glucose (65-105) mg/dL Calcium (8.6-10.4) mg/dl Phosphorus (2.5-4.5) mg/dL Magnesium (1.6-2.3) mg/dL Total Bilirubin (0.2-1.3) mg/dL AST (14-36) U/L ALT (9-52) U/L Alkaline Phosphatase (38-126) U/L Troponin I (0.00-0.120) ng/mL NT-Pro-B Natriuret Pep (0-900) pg/mL Total Protein (6.3-8.3) g/dL Albumin (3.5-5.0) g/dL Globulin (2.2-3.9) gm/dL Albumin/Globulin Ratio (1.0-2.1) 10/10/17 Range/Units 21:24 WBC (4.8-10.8) K/uL RBC (3.80-5.20) Mil/uL Hgb (11.0-16.0) g/dL Hct (34.0-47.0) % MCV (81.0-99.0) fL MCH (27.0-31.0) pg MCHC (33.0-37.0) g/dL RDW (11.5-14.5) % Plt Count (130-400) K/uL MPV (7.2-11.7) fL Neut % (Auto) (50.0-75.0) % Lymph % (Auto) (20.0-40.0) % Valley % (Auto) (0.0-10.0) % Eos % (Auto) (0.0-4.0) % Baso % (Auto) (0.0-2.0) % Neut # (1.8-7.0) K/uL Lymph # (1.0-4.3) K/uL Valley # (0.0-0.8) K/uL Eos # (0.0-0.7) K/uL Baso # (0.0-0.2) K/uL Neutrophils % (Manual) (50-75) % Band Neutrophils % (0-2) % Lymphocytes % (Manual) (20-40) % Reactive Lymphs % (0-0) % Monocytes % (Manual) (0-10) % Platelet Estimate (NORMAL) Large Platelets Polychromasia Hypochromasia (manual) Poikilocytosis (manual Anisocytosis (manual) Ovalocytes Bertram Cells APTT 66 H D (21-34) SECONDS Puncture Site pCO2 (35-45) mm/Hg pO2 (80-100) mm/Hg HCO3 (21-28) mmol/L ABG pH (7.35-7.45) ABG Total CO2 (22-28) mmol/L ABG O2 Saturation (95-98) % ABG Base Excess (-2.0-3.0) mmol/L ABG Hemoglobin (11.7-17.4) g/dL ABG Carboxyhemoglobin (0.5-1.5) % POC ABG HHb (Measured) (0.0-5.0) % ABG Methemoglobin (0.0-3.0) % Dayron Test A-a O2 Difference mm/Hg Respiratory Index Hgb O2 Saturation (95.0-98.0) % Vent Mode Mechanical Rate FiO2 % Tidal Volume PEEP Sodium (132-148) mmol/L Potassium (3.6-5.2) mmol/L Chloride (98-107) mmol/L Carbon Dioxide (22-30) mmol/L Anion Gap (10-20) BUN (7-17) mg/dL Creatinine (0.7-1.2) mg/dL Est GFR ( Amer) Est GFR (Non-Af Amer) POC Glucose (mg/dL) (65-110) mg/dL Random Glucose (65-105) mg/dL Calcium (8.6-10.4) mg/dl Phosphorus (2.5-4.5) mg/dL Magnesium (1.6-2.3) mg/dL Total Bilirubin (0.2-1.3) mg/dL AST (14-36) U/L ALT (9-52) U/L Alkaline Phosphatase (38-126) U/L Troponin I (0.00-0.120) ng/mL NT-Pro-B Natriuret Pep (0-900) pg/mL Total Protein (6.3-8.3) g/dL Albumin (3.5-5.0) g/dL Globulin (2.2-3.9) gm/dL Albumin/Globulin Ratio (1.0-2.1) Laboratory Results - last 24 hr 10/10/17 10/10/17 10/11/17 21:24 23:24 05:07 WBC RBC Hgb Hct MCV MCH MCHC RDW Plt Count MPV Neut % (Auto) Lymph % (Auto) Valley % (Auto) Eos % (Auto) Baso % (Auto) Neut # Lymph # Valley # Eos # Baso # Neutrophils % (Manual) Band Neutrophils % Lymphocytes % (Manual) Reactive Lymphs % Monocytes % (Manual) Platelet Estimate Large Platelets Polychromasia Hypochromasia (manual) Poikilocytosis (manual Anisocytosis (manual) Ovalocytes Angelo Cells APTT 66 H D Puncture Site Rb pCO2 26 L pO2 57 L HCO3 18.7 L ABG pH 7.39 ABG Total CO2 16.5 L ABG O2 Saturation 92.2 L ABG Base Excess -7.8 L ABG Hemoglobin 11.5 L ABG Carboxyhemoglobin 1.0 POC ABG HHb (Measured) 7.7 H ABG Methemoglobin 0.5 Dayron Test Na A-a O2 Difference 338.0 Respiratory Index 5.9 Hgb O2 Saturation 90.9 L Vent Mode Prvc Mechanical Rate 12 FiO2 60.0 Tidal Volume 500 PEEP 5 Sodium Potassium Chloride Carbon Dioxide Anion Gap BUN Creatinine Est GFR ( Amer) Est GFR (Non-Af Amer) POC Glucose (mg/dL) 130 H Random Glucose Calcium Phosphorus Magnesium Total Bilirubin AST ALT Alkaline Phosphatase Troponin I NT-Pro-B Natriuret Pep Total Protein Albumin Globulin Albumin/Globulin Ratio 10/11/17 10/11/17 10/11/17 05:23 06:27 06:27 WBC RBC Hgb Hct MCV MCH MCHC RDW Plt Count MPV Neut % (Auto) Lymph % (Auto) Valley % (Auto) Eos % (Auto) Baso % (Auto) Neut # Lymph # Valley # Eos # Baso # Neutrophils % (Manual) Band Neutrophils % Lymphocytes % (Manual) Reactive Lymphs % Monocytes % (Manual) Platelet Estimate Large Platelets Polychromasia Hypochromasia (manual) Poikilocytosis (manual Anisocytosis (manual) Ovalocytes Angelo Cells APTT 65 H Puncture Site pCO2 pO2 HCO3 ABG pH ABG Total CO2 ABG O2 Saturation ABG Base Excess ABG Hemoglobin ABG Carboxyhemoglobin POC ABG HHb (Measured) ABG Methemoglobin Dayron Test A-a O2 Difference Respiratory Index Hgb O2 Saturation Vent Mode Mechanical Rate FiO2 Tidal Volume PEEP Sodium 151 H Potassium 3.6 Chloride 123 H Carbon Dioxide 17 L Anion Gap 15 BUN 34 H Creatinine 1.0 Est GFR ( Amer) > 60 Est GFR (Non-Af Amer) 54 POC Glucose (mg/dL) 135 H Random Glucose 127 H Calcium 8.5 L Phosphorus 1.8 L Magnesium 1.8 Total Bilirubin 0.9 AST 17 ALT 23 Alkaline Phosphatase 109 Troponin I NT-Pro-B Natriuret Pep Total Protein 5.5 L Albumin 2.8 L Globulin 2.6 Albumin/Globulin Ratio 1.1 10/11/17 10/11/17 10/11/17 06:33 11:02 12:13 WBC 12.9 H RBC 4.03 Hgb 11.6 Hct 35.2 MCV 87.4 MCH 28.7 MCHC 32.9 L RDW 16.3 H Plt Count 310 MPV 8.8 Neut % (Auto) 74.3 Lymph % (Auto) 6.7 L Valley % (Auto) 18.0 H Eos % (Auto) 0.1 Baso % (Auto) 0.9 Neut # 9.6 H Lymph # 0.9 L Valley # 2.3 H Eos # 0.0 Baso # 0.1 Neutrophils % (Manual) 67 Band Neutrophils % 8 H Lymphocytes % (Manual) 8 L Reactive Lymphs % 1 H Monocytes % (Manual) 16 H Platelet Estimate Normal Large Platelets Present Polychromasia Slight Hypochromasia (manual) Slight Poikilocytosis (manual Slight Anisocytosis (manual) Slight Ovalocytes Slight Bertram Cells Slight APTT Puncture Site pCO2 pO2 HCO3 ABG pH ABG Total CO2 ABG O2 Saturation ABG Base Excess ABG Hemoglobin ABG Carboxyhemoglobin POC ABG HHb (Measured) ABG Methemoglobin Dayron Test A-a O2 Difference Respiratory Index Hgb O2 Saturation Vent Mode Mechanical Rate FiO2 Tidal Volume PEEP Sodium Potassium Chloride Carbon Dioxide Anion Gap BUN Creatinine Est GFR ( Amer) Est GFR (Non-Af Amer) POC Glucose (mg/dL) 165 H Random Glucose Calcium Phosphorus Magnesium Total Bilirubin AST ALT Alkaline Phosphatase Troponin I 0.2310 H* NT-Pro-B Natriuret Pep 59069 H Total Protein Albumin Globulin Albumin/Globulin Ratio 10/11/17 17:36 WBC RBC Hgb Hct MCV MCH MCHC RDW Plt Count MPV Neut % (Auto) Lymph % (Auto) Valley % (Auto) Eos % (Auto) Baso % (Auto) Neut # Lymph # Valley # Eos # Baso # Neutrophils % (Manual) Band Neutrophils % Lymphocytes % (Manual) Reactive Lymphs % Monocytes % (Manual) Platelet Estimate Large Platelets Polychromasia Hypochromasia (manual) Poikilocytosis (manual Anisocytosis (manual) Ovalocytes Bertram Cells APTT Puncture Site pCO2 pO2 HCO3 ABG pH ABG Total CO2 ABG O2 Saturation ABG Base Excess ABG Hemoglobin ABG Carboxyhemoglobin POC ABG HHb (Measured) ABG Methemoglobin Dayron Test A-a O2 Difference Respiratory Index Hgb O2 Saturation Vent Mode Mechanical Rate FiO2 Tidal Volume PEEP Sodium Potassium Chloride Carbon Dioxide Anion Gap BUN Creatinine Est GFR ( Amer) Est GFR (Non-Af Amer) POC Glucose (mg/dL) 128 H Random Glucose Calcium Phosphorus Magnesium Total Bilirubin AST ALT Alkaline Phosphatase Troponin I NT-Pro-B Natriuret Pep Total Protein Albumin Globulin Albumin/Globulin Ratio EKG/Cardiology Studies: Cardiology / EKG Studies 10/11/17 10:17 ELECTROCARDIOGRAM Stat Comment: Mode Of Transportation: Reason For Exam: sob. tachy Isolation: Contact Critical Care Progress Note - Nutrition Nutrition: Nutrition Category Date Time Status NPO Diet [DIET] Diets 10/07/17 Dinner Active Attending/Attestation - Attestation I have personally seen and examined this patient.: Yes I have fully participated in the care of the patient.: Yes I have reviewed all pertinent clinical information: Yes Notes (Text): 10/11/17 18:58 Patient seen and examined in the intensive care unit. Case discussed with house staff in the morning rounds. Remains intubated requiring high FiO2 Continue antibiotics continue heparin drip continue [place] Lopressor
--- NOTE | 2017-10-11 12:02 | PCM.PROC ---
Procedures Attestation:: I certify that I have explained the specified Operation(s) or Procedure(s), risks, benefits and reasonable alternatives to the Patient and/or other person responsible. The opportunity was given to ask questions and all questions answered - Central Line Placement Left Internal Jugular Triple Lumen Catheter Aseptic technique was employed throughout the procedure: Hand Hygiene done prior to procedure, Full sterile barriers (mask, hair cover, sterile gown, sterile gloves), Full body sterile drape, Chloraprep Antiseptic: 30 second prep for IJ or SC sites CVP Time Out Performed: Yes Pt. Placed on Pulse Ox Monitor: Yes Central Line Prep: Chlorhexidine-Alcohol Combination Local Anesthesia Used: Lidocaine 1% Ultrasound Used for Placement: Yes Central Line Lumen Inserted: triple Central Line Length: 16 cm Post Procedure: Sutured in Place, Good Blood Return, All Ports Aspirated, Flushed, Capped, Sterile Dressing Applied Secured by: Suture Post procedure dressing: Clear vapor permeable, Chlorhexidine disc (Biopatch) Post Procedure X-Ray: Yes Patient Tolerated Procedure: Well Immediate Complications: None
[2017-10-11 12:04] LABS: TROPONIN I 0.231 ng/mL (0.00-0.120)
--- NOTE | 2017-10-11 12:31 | RAD ---
HISTORY: TLC L. IJ COMPARISON: Chest x-ray performed 10/11/17 TECHNIQUE: Chest, one view. FINDINGS: Endotracheal tube terminates approximately 3.4 cm above the mic. Left-sided central venous catheter extends to the SVC. Nasogastric tube extends expected location of the stomach. LUNGS: Bilateral hilar prominence. Persistent moderate to severe venous congestion. Right hilar prominence. No significant pleural effusion or definite pneumothorax identified. CARDIOVASCULAR: Heart size appears top normal. 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 OSSEOUS STRUCTURES: Degenerative changes. VISUALIZED UPPER ABDOMEN: Unremarkable. OTHER FINDINGS: None. IMPRESSION: Support lines and tubes as above. Bilateral hilar prominence. Persistent moderate to severe venous congestion. Right hilar prominence.
--- NOTE | 2017-10-11 12:49 | CP.PCM.PN ---
Subjective - Date & Time of Evaluation Date of Evaluation: 10/11/17 Time of Evaluation: 12:47 - Subjective Subjective: Surgery Pt s&e. Intubated and sedated. On heparin drip. Irregular rythm on EGK. Objective - Vital Signs/Intake and Output Vital Signs (last 24 hours): Temp Pulse Resp BP Pulse Ox 99.2 F 99 H 25 H 118/51 L 91 L 10/11/17 08:00 10/11/17 12:01 10/11/17 12:01 10/11/17 12:01 10/11/17 12:01 Intake and Output: 10/11/17 10/11/17 06:59 18:59 Intake Total 2447.4 1233.7 Output Total 930 270 Balance 1517.4 963.7 - Medications Medications: Current Medications Acetaminophen (Tylenol 325mg Tab) 650 mg PO Q6 PRN PRN Reason: Fever >100.4 F Amlodipine Besylate (Norvasc) 10 mg PO DAILY [facility] Last Admin: 10/07/17 10:14 Dose: 10 mg Aspirin (Ecotrin) 81 mg PO DAILY [facility] Last Admin: 10/07/17 10:13 Dose: 81 mg Metronidazole (Flagyl) 500 mg in 100 mls @ 100 mls/hr IVPB Q8 [facility] Last Admin: 10/11/17 05:05 Dose: 100 mls/hr Heparin Sodium/Sodium Chloride (Heparin 84486 Units/250ml 1/2 Normal Saline) 25 ,000 units in 250 mls @ 14.664 mls/hr IV .Q17H3M PRN; Protocol; 18 UNITS/KG/HR PRN Reason: ADJUST RATE PER PROTOCOL Last Admin: 10/11/17 10:49 Dose: 15 units/kg/hr, 12.22 mls/hr Meropenem 1 gm/ Sodium (Chloride) 100 mls @ 100 mls/hr IVPB Q8H [facility] Last Admin: 10/11/17 06:45 Dose: 100 mls/hr Diltiazem HCl 125 mg/ Dextrose 125 mls @ 5 mls/hr IV .Q24H TIM; 5 MG/HR PRN Reason: Protocol Last Admin: 10/11/17 06:45 Dose: 10 mg/hr, 10 mls/hr Propofol (Diprivan) 1,000 mg in 100 mls @ 2.73 mls/hr IV .Q24H PRN; Protocol; 5 MCG/KG/MIN PRN Reason: TITRATE PER MD ORDER Last Admin: 10/11/17 07:51 Dose: 5 mcg/kg/min, 2.73 mls/hr Insulin Human Regular (Novolin R) 0 unit SC Q6H [facility] PRN Reason: Protocol Last Admin: 10/11/17 06:00 Dose: Not Given Isosorbide Mononitrate (Imdur) 60 mg PO DAILY [facility] Last Admin: 10/07/17 10:14 Dose: 60 mg Levothyroxine Sodium (Synthroid) 50 mcg PO DAILY@0630 [facility] Last Admin: 10/07/17 06:11 Dose: 50 mcg Losartan Potassium (Cozaar) 100 mg PO DAILY [facility] Last Admin: 10/07/17 10:14 Dose: 100 mg Metoprolol Tartrate (Lopressor) 5 mg IVP Q6H [facility] Last Admin: 10/11/17 05:00 Dose: 5 mg Midazolam HCl (Versed Inj) 2 mg IVP Q4H PRN PRN Reason: Agitation Last Admin: 10/11/17 07:17 Dose: 2 mg Nebivolol (Bystolic) 10 mg PO DAILY [facility] Last Admin: 10/07/17 10:13 Dose: 10 mg Ondansetron HCl (Zofran Inj) 4 mg IVP Q6H PRN PRN Reason: Nausea/Vomiting Last Admin: 10/10/17 21:10 Dose: 4 mg Pantoprazole Sodium (Protonix Inj) 40 mg IVP DAILY [facility] Last Admin: 10/11/17 09:48 Dose: 40 mg Polyethylene Glycol (Miralax) 17 gm PO BID PRN PRN Reason: Constipation Last Admin: 10/07/17 10:14 Dose: 17 gm Rosuvastatin Calcium (Crestor) 5 mg PO HS [facility] Last Admin: 10/07/17 22:43 Dose: Not Given Saccharomyces Boulardii (Florastor) 250 mg NG BID [facility] Last Admin: 10/11/17 09:48 Dose: 250 mg Zolpidem Tartrate (Ambien) 5 mg PO HS PRN PRN Reason: Insomnia Last Admin: 10/04/17 23:27 Dose: 5 mg - Labs Labs: 10/11/17 06:33 10/11/17 06:27 PT 12.2 SECONDS (9.7-12.2) 10/04/17 18:30 INR 1.1 10/04/17 18:30 APTT 65 SECONDS (21-34) H 10/11/17 06:27 - Constitutional Appears: Non-toxic - Head Exam Head Exam: ATRAUMATIC, NORMAL INSPECTION, NORMOCEPHALIC - ENT Exam ENT Exam: Mucous Membranes Moist, Normal Exam - Neck Exam Neck Exam: Full ROM, Normal Inspection. absent: Lymphadenopathy - Respiratory Exam Respiratory Exam: Respiratory Distress Additional comments: Intubated sedated. 60% FiO2. - Cardiovascular Exam Cardiovascular Exam: Irregular Rhythm - GI/Abdominal Exam GI & Abdominal Exam: Soft, Normal Bowel Sounds. absent: Distended, Firm, Guarding, Rigid, Tenderness Additional comments: Incision C/D/I - Extremities Exam Extremities Exam: Normal Inspection. absent: Joint Swelling, Pedal Edema - Back Exam Back Exam: NORMAL INSPECTION - Neurological Exam Neurological Exam: absent: Alert, Awake, Normal Gait, Oriented x3 - Skin Skin Exam: Dry, Intact, Normal Color, Warm Assessment and Plan - Assessment and Plan (Free Text) Assessment: POD 4 s/p ex lap small bowel resection for ischemic bowel -ICU management -MOnitor I&O -pain control -Cardio on board BROOKE [place]
--- NOTE | 2017-10-11 12:51 | CP.PCM.PN ---
Subjective - Date & Time of Evaluation Date of Evaluation: 10/11/17 Time of Evaluation: 00:30 - Subjective Subjective: Hospitalist Progress Note Patient was seen and examined at 12:30 AM 10/11/17 ICU Bed #18 She shakes her head NO when asking FULL ROS questions She has NOT moved her bowels since before bowel resection She is producing adequate urine output per hour Exam: General: Intubated with NG tube. She is awake and following commands during exam , and answers ROS questions by shaking her head HEENT: EOMI, PERRLA, NO cervical/submandibular/supraclavicular lymphadenopathy, NO thyromegaly Cardio: NS1 and NS2, NO M/R/G Resp: Course breath sounds throughout GI: BSx4, Soft, Central Obesity, Ventral Vertical Surgical Bandage that is clean and nonbloody, some tenderness to palpation around the surgical site, however NO guarding/rebound tenderness Ext: NO edema, Pulses are strong and equal, NO discoloration, NO cyanosis, Capillary Refill is 2 seconds 1.Bowel Ischemia Abdominal Pain Abdominal Aorta Aneurysm * General surgery: Dr. Hinton on consult-->given LLQ abdominal pain * 10/08/17: Exploratory laparotomy, small bowel resection and primary anastomosis. EBL: 100; No Drains * Vascular surgery consult: Dr. Inman to follow for evaluation--> given aborminal aorta focal contained dissection * CT Dissection protocol (10/04/17): No evidence of thoracic aortic aneurysm, dissection, or rupture. No acute pulmonary embolism, Hepatic cysts, further findings available in the report including. Focal aneurysmal dilatation of infrarenal abdominal aorta measuring 2.6cm * Meropenem 1gram IVPB Q 8H (10/07/17) * Flagyl 500mg IVPB Q8H (active since 10/07/17) * CT abdomen/pelvis PO (10/07/17); Small bowel pneumatosis and portal venous gas concerning for bowel ischemia and necrosis. Multiple liver cysts. Nonobstructing calcifications in the left kidney. 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 Carvajal given results of CT Abdomen/Pelvis PO contrast; resident spoke with surgery resident in light of new CT results. Patient had NGT tube placed removed 1.7 Liter of Feculent Material and had enema prior wherein there was melena. * NGT tube 10/07/17-->brownish matter * Has Renee and is currently producing adequate urine output * Currently on Propofol 5 mcg/kg/min 2. Chest Pain New LBBB History of Coronary Artery Disease History of CABG History of Diabetes Lipid Disorder History of Hypertension History of Severe Aortic Stenosis History of Pacemaker; prior Sick Sinus syndrome * Cardiology (Dr. Childs) on board-->help appreciated * Cardiac cath (10/06/17) completed; discussed with Dr. Childs including RCA occlusion about 50%-->will need intervention in future * Echocardiogram (10/06/17): left ventricular function is normal, left ventricular ejection fraction is within the normal range. No regional wall motion abnormalities noted. Left atrium is mildly dilated. Mild to Moderate valvular aortic stenosis. Calculated aortic valve area is 1.1cm squared. Donna regurgitation is mild to moderate. * Prior cardiac workup: * Holter in 2017 showed NSR with max HR 121, SVT at HR of 146 and rare VPC, isolated APC. * Cardiac Cath in 2014 showed distal main coronary artery 70-80% concentric stenosis mid LAD 70-80% stenosis, RCA 20-30% non-obstructing stenosis, and large diagonal branch 85% proximal stenosis. with LVEF of 60%. Basal inferior wall akinetic. P * revious ECHO showed borderline concentric LVH with grade I abnormal relaxation pattern, severe aortic stenosis, mild mitral regurg, and mild to moderate pulmonic regurg. LVEF was 60-65%. History of pacemaker placement per chart review. * CT Dissection protocol (10/04/17): No evidence of thoracic aortic aneurysm, dissection, or rupture. No acute pulmonary embolism, Hepatic cysts, further findings available in the report inclduing Focal aneurysmal dilatation of infrarenal abdominal aorta measuring 2.6cm * Aspirin on hold given melena 10/07/17 * Elevated probnp: 1580 * CARLYN: 7 * T, cholestrol: 159, LDL: 91, HDL: 41 * [id number]: 7.1 * PaceMaker was nterrogated by [employer] and it was deemed to be workin properly * Patient had episodes of tachycardia 10/10/17 and 10/11/17: Cardizem Drip 5 mg/ hour and Lopressor 5 mg IV Q6H * Cardiac Meds: * Aspirin on hold 10/07/17 * Crestor 5mg POqHS on hold 10/07/17 * Bystolic 10mg PO daily on hold 10/08/17 * Cozaar 100mg PO daily on hold 10/08/17 * Imdur 60mg PO daily on hold 10/08/17 * Norvasc 10mg PO daily on hold 10/08/17 3. Sepsis Urinary Tract Infection Bandemia * Infectious Disease (Dr. Lawson) on the case-->help appreciated * Code sepsis 10/07/17 * Blood cultures (10/06/17): No growth after 48 hours X2 * Blood cultures (10/07/17): No growth after 24hours * Urine culture (10/07/17): Klebsiella Pneumoanie-->sensitive to Meropenem * Stool Culture (10/07/17): pending * Ova and Parasite (10/07/17): No ova and parasite * Meropenem 1gram IVPB Q 8H (10/07/17- active) * Flagyl 500mg IVPB Q8H (active since 10/07/17) * Lactic acid: 2.4 (10/05/17)-->1.8 (10/06/17)-->4.1 (10/07/17)-->2.6 (10/08/17)--> 2.2 (10/08/17) * +ESBL+ on Contact * Has Renee and repeat Urine Culture ordered 10/11/17 4. Melena * Occult blood 10/07/17 * Stool leukocytes: negative * C. diff 10/07/17: pending * Stool Culture (10/07/17): negative * Ova and Parasite (10/07/17): No ova and parasite * Aspirin and Heparin dvt discontinued 10/07/17 in light of melena 5. History of Chronic Constipation History of Liver cysts * GI (Dr. Boland) on case-->had signed off * Given patient is asymptomatic and appearance of lesions on imaging consistent with cystic disease, no further workup is indicated at this time. If patient becomes symptomatic, there is consideration for surgical intervention. * Maintain bowel regimen to prevent constipation * Suggest additional outpatient follow up and age appropriate screening colonoscopy if patient willing to undergo procedure. No further planned GI intervention * Hepatitis panel: negative * Please see #1 for further details. 6. History of Hypothyroidism * TSH: 2.92; Free T4: 1.49 * Synthroid 50mcg PO daily 7. History of Breast Cancer * Patient history of lumpectomy * She is being following serially * Patient is not on any chemotherapeutic agent 8. History of HTN * Holding Norvasc, Cozaar, Imdur and Bystolic secondary to low blood pressure 9. History of HLD * Holding Crestor 10. History of DM * Novolin R SC Q6H Sliding Scale 11. Prophylactic care * Anticoagulation held given melena 10/07/17 but she was started on Heparin Drip 10/09/17 secondary to fear of showering emboli: monitor HgB/Hct which has been stable since the start of the Heparin Drip * Aspirin held given melena 10/07/17 * Palliative Care consult given patient wanted to discuss code status initially during hospitalization * Patient is in the critical care unit following emergent surgery for bowel ischemia since 10/08/17 * Florastor 250 mg NG 2x/day * She is on NS with 20 mEQ KCl at 125 ml/hour * She is on Glucerna 1.5 at 10 ml/hour Bertin Hastings D.O. Objective - Vital Signs/Intake and Output Vital Signs (last 24 hours): Temp Pulse Resp BP Pulse Ox 99.2 F 99 H 25 H 118/51 L 91 L 10/11/17 08:00 10/11/17 12:01 10/11/17 12:01 10/11/17 12:01 10/11/17 12:01 Intake and Output: 10/11/17 10/11/17 06:59 18:59 Intake Total 2447.4 1233.7 Output Total 930 270 Balance 1517.4 963.7 - Medications Medications: Current Medications Acetaminophen (Tylenol 325mg Tab) 650 mg PO Q6 PRN PRN Reason: Fever >100.4 F Amlodipine Besylate (Norvasc) 10 mg PO DAILY [facility] Last Admin: 10/07/17 10:14 Dose: 10 mg Aspirin (Ecotrin) 81 mg PO DAILY [facility] Last Admin: 10/07/17 10:13 Dose: 81 mg Metronidazole (Flagyl) 500 mg in 100 mls @ 100 mls/hr IVPB Q8 [facility] Last Admin: 10/11/17 05:05 Dose: 100 mls/hr Heparin Sodium/Sodium Chloride (Heparin 23473 Units/250ml 1/2 Normal Saline) 25 ,000 units in 250 mls @ 14.664 mls/hr IV .Q17H3M PRN; Protocol; 18 UNITS/KG/HR PRN Reason: ADJUST RATE PER PROTOCOL Last Admin: 10/11/17 10:49 Dose: 15 units/kg/hr, 12.22 mls/hr Meropenem 1 gm/ Sodium (Chloride) 100 mls @ 100 mls/hr IVPB Q8H [facility] Last Admin: 10/11/17 06:45 Dose: 100 mls/hr Diltiazem HCl 125 mg/ Dextrose 125 mls @ 5 mls/hr IV .Q24H TIM; 5 MG/HR PRN Reason: Protocol Last Admin: 10/11/17 06:45 Dose: 10 mg/hr, 10 mls/hr Propofol (Diprivan) 1,000 mg in 100 mls @ 2.73 mls/hr IV .Q24H PRN; Protocol; 5 MCG/KG/MIN PRN Reason: TITRATE PER MD ORDER Last Admin: 10/11/17 07:51 Dose: 5 mcg/kg/min, 2.73 mls/hr Insulin Human Regular (Novolin R) 0 unit SC Q6H [facility] PRN Reason: Protocol Last Admin: 10/11/17 06:00 Dose: Not Given Isosorbide Mononitrate (Imdur) 60 mg PO DAILY [facility] Last Admin: 10/07/17 10:14 Dose: 60 mg Levothyroxine Sodium (Synthroid) 50 mcg PO DAILY@0630 [facility] Last Admin: 10/07/17 06:11 Dose: 50 mcg Losartan Potassium (Cozaar) 100 mg PO DAILY [facility] Last Admin: 10/07/17 10:14 Dose: 100 mg Metoprolol Tartrate (Lopressor) 5 mg IVP Q6H [facility] Last Admin: 10/11/17 05:00 Dose: 5 mg Midazolam HCl (Versed Inj) 2 mg IVP Q4H PRN PRN Reason: Agitation Last Admin: 10/11/17 07:17 Dose: 2 mg Nebivolol (Bystolic) 10 mg PO DAILY [facility] Last Admin: 10/07/17 10:13 Dose: 10 mg Ondansetron HCl (Zofran Inj) 4 mg IVP Q6H PRN PRN Reason: Nausea/Vomiting Last Admin: 10/10/17 21:10 Dose: 4 mg Pantoprazole Sodium (Protonix Inj) 40 mg IVP DAILY [facility] Last Admin: 10/11/17 09:48 Dose: 40 mg Polyethylene Glycol (Miralax) 17 gm PO BID PRN PRN Reason: Constipation Last Admin: 10/07/17 10:14 Dose: 17 gm Rosuvastatin Calcium (Crestor) 5 mg PO HS [facility] Last Admin: 10/07/17 22:43 Dose: Not Given Saccharomyces Boulardii (Florastor) 250 mg NG BID [facility] Last Admin: 10/11/17 09:48 Dose: 250 mg Zolpidem Tartrate (Ambien) 5 mg PO HS PRN PRN Reason: Insomnia Last Admin: 10/04/17 23:27 Dose: 5 mg - Labs Labs: 10/11/17 06:33 10/11/17 06:27 PT 12.2 SECONDS (9.7-12.2) 10/04/17 18:30 INR 1.1 10/04/17 18:30 APTT 65 SECONDS (21-34) H 10/11/17 06:27
[2017-10-11] MEDS: Vitamins A & D Oint UD Foilpak TOP SCH (21:00)
[2017-10-11] MEDS: Levothyroxine 50 MCG TAB PO SCH (21:47)
--- NOTE | 2017-10-11 23:12 | CARD ---
APPROVED REPORT EKG Measurement Heart [id number] <Conclusion> Atrial fibrillation with occasional ventricular-paced complexes and with premature ventricular or aberrantly conducted comple Left bundle branch block Abnormal ECG
[2017-10-12] MEDS: Vitamins A & D Oint UD Foilpak TOP SCH ×6 (01:00→21:19)
[2017-10-12] MEDS: Metoprolol 1 mg/ml Inj IVP SCH ×4 (06:00→22:48)
[2017-10-12] MEDS: (Novolin R) Insulin Human Regular 100 units/ml vial SC SCH ×4 (06:00→18:15)
[2017-10-12] MEDS: Levothyroxine 50 MCG TAB PO SCH (06:05)
[2017-10-12] MEDS: metroNIDAZOLE IV 500 mg/100 ml 500 MG/100 ML BAG IVPB SCH ×3 (06:05→21:11)
[2017-10-12 06:17] LABS: ABG ALLEN TEST POS; ARTERIAL BLOOD GAS HCO3 19.3 mmol/L (21-28); ARTERIAL BLOOD GAS O2 SAT 96.8 % (95-98); ARTERIAL BLOOD GAS PCO2 23 mm/Hg (35-45); ARTERIAL BLOOD GAS PH 7.44 (7.35-7.45); ARTERIAL BLOOD GAS PO2 78 mm/Hg (80-100); ARTERIAL BLOOD GAS TCO2 16.3 mmol/L (22-28)
[2017-10-12 06:37] LABS: BASO # 0.1 K/uL (0.0-0.2); BASO % 0.8 % (0.0-2.0); EOS # 0.2 K/uL (0.0-0.7); EOS % 1.5 % (0.0-4.0); HEMOGLOBIN 11.8 g/dL (11.0-16.0); LYMPH # 1.9 K/uL (1.0-4.3); LYMPH % 11.5 % (20.0-40.0); MEAN CELL VOLUME 86.1 fL (81.0-99.0); MEAN CORPUSCULAR HEMOGLOBIN 29.1 pg (27.0-31.0); MEAN CORPUSCULAR HGB CONC 33.8 g/dL (33.0-37.0); MEAN PLATELET VOLUME 8.6 fL (7.2-11.7); MONO # 2.5 K/uL (0.0-0.8); NEUT % 71.2 % (50.0-75.0); NRBC % 0.2 % (0.0-2.0); RBC 4.04 Mil/uL (3.80-5.20); RED CELL DISTRIBUTION WIDTH 15.7 % (11.5-14.5); WHITE BLOOD COUNT 16.8 K/uL (4.8-10.8)
[2017-10-12 06:43] LABS: ALBUMIN 2.6 g/dL (3.5-5.0); ALT/SGPT 24 U/L (9-52); AST/SGOT 19 U/L (14-36); BLOOD UREA NITROGEN 29 mg/dL (7-17); CALCIUM 8.2 mg/dl (8.6-10.4); GFR AFRICAN-AMERICAN > 60; GFR NON-AFRICAN AMERICAN > 60; MAGNESIUM 1.8 mg/dL (1.6-2.3)
[2017-10-12] MEDS: Meropenem 1 GM in Sodium Chloride 0.9% 100 ML IVPB SCH ×3 (07:00→21:12)
[2017-10-12] MEDS: Saccharomyces Boulardi 250 mg Cap NG SCH ×2 (09:15→17:05)
--- NOTE | 2017-10-12 09:45 | RAD ---
PROCEDURE: CHEST RADIOGRAPH, 1 VIEW HISTORY: vent COMPARISON: Chest radiograph dated 10/11/2017. FINDINGS: LUNGS: Pulmonary vascular congestion, stable. PLEURA: No pneumothorax or pleural fluid seen. CARDIOVASCULAR: Right subclavian access pacemaker redemonstrated. Prior sternotomy with sternal wires and surgical clips redemonstrated. Atherosclerotic aortic calcifications. Cardiomediastinal silhouette stably enlarged. OSSEOUS STRUCTURES: Unchanged. VISUALIZED UPPER ABDOMEN: Normal. OTHER FINDINGS: Endotracheal and enteric tubes, unchanged. Left internal jugular access central venous catheter, unchanged. IMPRESSION: No significant interval change.
--- NOTE | 2017-10-12 10:06 | VASCLAB ---
PROCEDURE: Lower Extremity Venous Duplex Exam. HISTORY: le swelling PRIORS: None. TECHNIQUE: Bilateral common femoral, femoral, popliteal and posterior tibial, peroneal and great saphenous veins were evaluated. Flow was assessed with color Doppler, compressibility, assessment of phasic flow and augmentation response. Report prepared by ANDREW Caicedo, RVT FINDINGS: RIGHT: 1. Common Femoral Vein: 1.1. Compressibility - Fully compressible: Thrombus - None : Flow - Phasic: Augmentation -Normal: Reflux - None. 2. Femoral Vein: 2.1. Compressibility - Fully compressible: Thrombus - None : Flow - Phasic: Augmentation -Normal: Reflux - None. 3. Popliteal Vein: 3.1. Compressibility - Fully compressible: Thrombus - None : Flow - Phasic: Augmentation -Normal: Reflux - None. 4. Posterior Tibial Vein: 4.1. Compressibility - Fully compressible: Thrombus - None: Flow - Phasic: Augmentation -Normal: Reflux - None. 5. Peroneal Vein: 5.1. Compressibility - Fully compressible: Thrombus - None: Flow - Phasic: Augmentation -Normal: Reflux - None. 6. Great Saphenous Vein: 6.1. Compressibility - Fully compressible: Thrombus - None: Flow - Phasic: Augmentation - Normal: Reflux - None. LEFT: 1. Common Femoral Vein: 1.1. Compressibility - Fully compressible: Thrombus - None: Flow - Phasic: Augmentation -Normal: Reflux - None. 2. Femoral Vein: 2.1. Compressibility - Fully compressible: Thrombus - None: Flow - Phasic: Augmentation -Normal: Reflux - None. 3. Popliteal Vein: 3.1. Compressibility - Fully compressible: Thrombus - None : Flow - Phasic: Augmentation -Normal: Reflux - None. 4. Posterior Tibial Vein: 4.1. Compressibility - Fully compressible: Thrombus - None: Flow - Phasic: Augmentation -Normal: Reflux - None. 5. Peroneal Vein: 5.1. Compressibility - Fully compressible: Thrombus - None: Flow - Phasic: Augmentation -Normal: Reflux - None. 6. Great Saphenous Vein: 6.1. Compressibility - Fully compressible: Thrombus - None: Flow - Phasic: Augmentation - Normal: Reflux - None. OTHER FINDINGS: Right: None significant. Left: None significant. IMPRESSION: Right: No evidence of deep or superficial vein thrombosis of the right lower extremity. Normal valve function noted of the right side. Left: No evidence of deep or superficial vein thrombosis of the left lower extremity. Normal valve function noted of the left side.
[2017-10-12] MEDS: Propofol 10 mg/ml 1,000 MG/100 ML VIAL IV PRN (10:54)
[2017-10-12] MEDS: Heparin25000 units/250ml 1/2NS 25,000 UNITS/250 ML BAG IV PRN (11:13)
--- NOTE | 2017-10-12 14:22 | CP.PCM.PN ---
Subjective - Date & Time of Evaluation Date of Evaluation: 10/12/17 Time of Evaluation: 14:15 - Subjective Subjective: Hospitalist Progress Note Patient was seen and examined at 2:15 PM 10/12/17 ICU Bed #18 Patient under sedation/intubated/vent and is not arousable today Exam: General: Intubated with NG tube. She is awake and following commands during exam , and answers ROS questions by shaking her head HEENT: EOMI, PERRLA, NO cervical/submandibular/supraclavicular lymphadenopathy, NO thyromegaly Cardio: NS1 and NS2, NO M/R/G Resp: Course breath sounds throughout GI: BSx4, Soft, Central Obesity, Ventral Vertical Surgical Bandage that is clean and nonbloody, some tenderness to palpation around the surgical site, however NO guarding/rebound tenderness Ext: NO edema, Pulses are strong and equal, NO discoloration, NO cyanosis, Capillary Refill is 2 seconds 1.Bowel Ischemia Abdominal Pain Abdominal Aorta Aneurysm * General surgery: Dr. Hinton on consult-->given LLQ abdominal pain * 10/08/17: Exploratory laparotomy, small bowel resection and primary anastomosis. EBL: 100; No Drains * Vascular surgery consult: Dr. Inman to follow for evaluation--> given aborminal aorta focal contained dissection * CT Dissection protocol (10/04/17): No evidence of thoracic aortic aneurysm, dissection, or rupture. No acute pulmonary embolism, Hepatic cysts, further findings available in the report including. Focal aneurysmal dilatation of infrarenal abdominal aorta measuring 2.6cm * Meropenem 1gram IVPB Q 8H (10/07/17) * Flagyl 500mg IVPB Q8H (active since 10/07/17) * CT abdomen/pelvis PO (10/07/17); Small bowel pneumatosis and portal venous gas concerning for bowel ischemia and necrosis. Multiple liver cysts. Nonobstructing calcifications in the left kidney. 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 Carvajal given results of CT Abdomen/Pelvis PO contrast; resident spoke with surgery resident in light of new CT results. Patient had NGT tube placed removed 1.7 Liter of Feculent Material and had enema prior wherein there was melena. * NGT tube 10/07/17-->brownish matter * Has Renee and is currently producing adequate urine output * Currently on Propofol 5 mcg/kg/min 2. Chest Pain New LBBB History of Coronary Artery Disease History of CABG History of Diabetes Lipid Disorder History of Hypertension History of Severe Aortic Stenosis History of Pacemaker; prior Sick Sinus syndrome * Cardiology (Dr. Childs) on board-->help appreciated * Cardiac cath (10/06/17) completed; discussed with Dr. Childs including RCA occlusion about 50%-->will need intervention in future * Echocardiogram (10/06/17): left ventricular function is normal, left ventricular ejection fraction is within the normal range. No regional wall motion abnormalities noted. Left atrium is mildly dilated. Mild to Moderate valvular aortic stenosis. Calculated aortic valve area is 1.1cm squared. Donna regurgitation is mild to moderate. * Prior cardiac workup: * Holter in 2017 showed NSR with max HR 121, SVT at HR of 146 and rare VPC, isolated APC. * Cardiac Cath in 2014 showed distal main coronary artery 70-80% concentric stenosis mid LAD 70-80% stenosis, RCA 20-30% non-obstructing stenosis, and large diagonal branch 85% proximal stenosis. with LVEF of 60%. Basal inferior wall akinetic. P * revious ECHO showed borderline concentric LVH with grade I abnormal relaxation pattern, severe aortic stenosis, mild mitral regurg, and mild to moderate pulmonic regurg. LVEF was 60-65%. History of pacemaker placement per chart review. * CT Dissection protocol (10/04/17): No evidence of thoracic aortic aneurysm, dissection, or rupture. No acute pulmonary embolism, Hepatic cysts, further findings available in the report inclduing Focal aneurysmal dilatation of infrarenal abdominal aorta measuring 2.6cm * Aspirin on hold given melena 10/07/17 * Elevated probnp: 1580 * CARLYN: 7 * T, cholestrol: 159, LDL: 91, HDL: 41 * [id number]: 7.1 * PaceMaker was nterrogated by [employer] and it was deemed to be workin properly * Patient had episodes of tachycardia 1/22/18 and 10/11/17: Cardizem Drip 10 mg/ hour and Lopressor 5 mg IV Q6H Cardiac Meds: * Aspirin 81 mg NG 1x/day * Lopressor 5 mg IV Q6H * Cardizem Drip 10 mg * Crestor 5mg NG QHS * Norvasc 10 mg NG 1x/day * Cozaar 100 mg NG 1x/day * HOLDING Bystolic, Imdur 3. Sepsis Urinary Tract Infection Bandemia * Infectious Disease (Dr. Lawson) on the case-->help appreciated * Code sepsis 10/07/17 * Blood cultures (10/06/17): Negative at 5 days * Blood cultures (10/07/17): Negative at 5 days * Urine culture (10/07/17): Klebsiella Pneumoanie-->sensitive to Meropenem * Repeat Urine Culture (10/11/17): NO GROWTH * Stool Culture (10/07/17): Negative * Ova and Parasite (10/07/17): No ova and parasite * Meropenem 1gram IVPB Q 8H (10/07/17- active) * Flagyl 500mg IVPB Q8H (active since 10/07/17) * Lactic acid: 2.4 (10/05/17)-->1.8 (10/06/17)-->4.1 (10/07/17)-->2.6 (10/08/17)--> 2.2 (10/08/17) * +ESBL+ on Contact * Has Renee in place 4. Melena * Occult blood 10/07/17 * Stool leukocytes: negative * C. diff 10/07/17: pending * Stool Culture (10/07/17): negative * Ova and Parasite (10/07/17): No ova and parasite 5. History of Chronic Constipation History of Liver cysts * GI (Dr. Boland) on case-->had signed off * Given patient is asymptomatic and appearance of lesions on imaging consistent with cystic disease, no further workup is indicated at this time. If patient becomes symptomatic, there is consideration for surgical intervention. * Maintain bowel regimen to prevent constipation * Suggest additional outpatient follow up and age appropriate screening colonoscopy if patient willing to undergo procedure. No further planned GI intervention * Hepatitis panel: negative * Please see #1 for further details. 6. History of Hypothyroidism * TSH: 2.92; Free T4: 1.49 * Synthroid 50mcg PO daily 7. History of Breast Cancer * Patient history of lumpectomy * She is being following serially * Patient is not on any chemotherapeutic agent 8. History of HTN * Restarted Norvasc, Losartan, and Metoprolol 10/12/17 9. History of HLD * Restarted Crestor 10/12/17 10. History of DM * Novolin R SC Q6H Sliding Scale 11. Prophylactic care * Anticoagulation was held given melena 10/07/17 but she was started on Heparin Drip 10/09/17 secondary to fear of showering emboli: monitor HgB/Hct which has been stable since the start of the Heparin Drip * Palliative Care consult given patient wanted to discuss code status initially during hospitalization * Florastor 250 mg NG 2x/day * Tylenol 650 mg NGT Q6H PRN Fever * Clinimix 5%-25% IV 42 ml/hr and Vital started on 10/12/17. Glucerna was discontinued secondary to the large amount of diarrhea. * Zofran 4 mg IV Q6H PRN N/V I spoke with Nurse Ramona caring for patient on 10/12/17: multiple 5 large watery bowel movements today and stool studies were sent. Will hold off on Rectal Seal for now unless the diarrhea continues. ICU resident will reach out to ID Dr. Lawson to see if the Meropenem and Flagyl can be discontinued in light of the repeat Urine and Blood Cultures being negative. Bertin Hastings D.O. Objective - Vital Signs/Intake and Output Vital Signs (last 24 hours): Temp Pulse Resp BP Pulse Ox 98.9 F 100 H 22 137/68 97 10/12/17 12:00 10/12/17 14:00 10/12/17 14:00 10/12/17 14:00 10/12/17 14:00 Intake and Output: 10/12/17 10/12/17 06:59 18:59 Intake Total 1087.4 811.6 Output Total 995 1350 Balance 92.4 -538.4 - Medications Medications: Current Medications Acetaminophen (Tylenol 325mg Tab) 650 mg PO Q6 PRN PRN Reason: Fever >100.4 F Amlodipine Besylate (Norvasc) 10 mg PO DAILY [facility] Last Admin: 10/12/17 09:15 Dose: 10 mg Aspirin (Aspirin Chewable) 81 mg PO DAILY [facility] Last Admin: 10/12/17 09:14 Dose: 81 mg Metronidazole (Flagyl) 500 mg in 100 mls @ 100 mls/hr IVPB Q8 [facility] Last Admin: 10/12/17 13:23 Dose: 100 mls/hr Heparin Sodium/Sodium Chloride (Heparin 26460 Units/250ml 1/2 Normal Saline) 25 ,000 units in 250 mls @ 14.664 mls/hr IV .Q17H3M PRN; Protocol; 18 UNITS/KG/HR PRN Reason: ADJUST RATE PER PROTOCOL Last Admin: 10/12/17 11:13 Dose: 15 units/kg/hr, 12.22 mls/hr Meropenem 1 gm/ Sodium (Chloride) 100 mls @ 100 mls/hr IVPB Q8H [facility] Last Admin: 10/12/17 13:24 Dose: 100 mls/hr Diltiazem HCl 125 mg/ Dextrose 125 mls @ 5 mls/hr IV .Q24H TIM; 5 MG/HR PRN Reason: Protocol Last Admin: 10/12/17 06:15 Dose: 10 mg/hr, 10 mls/hr Propofol (Diprivan) 1,000 mg in 100 mls @ 2.73 mls/hr IV .Q24H PRN; Protocol; 5 MCG/KG/MIN PRN Reason: TITRATE PER MD ORDER Last Admin: 10/12/17 10:54 Dose: 10 mcg/kg/min, 5.459 mls/hr Potassium Chloride 15 meq/Potassium Phosphate 15 mmole/Magnesium Sulfate 10 meq/ Calcium Gluconate 4.5 meq/Insulin Human Regular 10 unit/Heparin Sodium (Porcine ) 1, 000 units/ Chromium/Copper/Manganese/Zinc 1 ml/Multivitamins/Vitamin C 10 ml/Amino Acids 1,036.7404 mls @ 42 mls/hr IV .Q24H ONE Stop: 10/13/17 17:59 Insulin Human Regular (Novolin R) 0 unit SC Q6H [facility] PRN Reason: Protocol Last Admin: 10/12/17 12:49 Dose: Not Given Levothyroxine Sodium (Synthroid) 50 mcg PO DAILY@0630 [facility] Last Admin: 10/12/17 06:05 Dose: 50 mcg Losartan Potassium (Cozaar) 100 mg PO DAILY [facility] Last Admin: 10/12/17 09:14 Dose: 100 mg Metoprolol Tartrate (Lopressor) 5 mg IVP Q6H [facility] Last Admin: 10/12/17 10:53 Dose: 5 mg Midazolam HCl (Versed Inj) 2 mg IVP Q4H PRN PRN Reason: Agitation Last Admin: 10/11/17 07:17 Dose: 2 mg Ondansetron HCl (Zofran Inj) 4 mg IVP Q6H PRN PRN Reason: Nausea/Vomiting Last Admin: 10/10/17 21:10 Dose: 4 mg Pantoprazole Sodium (Protonix Inj) 40 mg IVP DAILY [facility] Last Admin: 10/12/17 11:16 Dose: 40 mg Polyethylene Glycol (Miralax) 17 gm PO BID PRN PRN Reason: Constipation Last Admin: 10/07/17 10:14 Dose: 17 gm Rosuvastatin Calcium (Crestor) 5 mg NG HS [facility] Last Admin: 10/11/17 22:00 Dose: 5 mg Saccharomyces Boulardii (Florastor) 250 mg NG BID [facility] Last Admin: 10/12/17 09:15 Dose: 250 mg Vitamin A (Vitamin A & D Oint Ud Foilpak) 0.5 ea TOP Q4 [facility] Last Admin: 10/12/17 13:22 Dose: 0.5 ea - Labs Labs: 10/12/17 06:22 10/12/17 06:22 PT 12.2 SECONDS (9.7-12.2) 10/04/17 18:30 INR 1.1 10/04/17 18:30 APTT 74 SECONDS (21-34) H D 10/12/17 06:22
--- NOTE | 2017-10-12 14:24 | CP.CCUPN ---
<Tommy Chang - Last Filed: 10/12/17 14:13> CCU Subjective - Physician Review Subjective (Free Text): 10/11/17 18:15 patient seen and exmained at bedside TLC inserted today in IJ and fem removed heparin drip restarted continues to be tachy family at bedside 10/12/17 14:13 patient seen and examined at bedside intubated cardizem drip + lopressor Less tachy will change to NOAC after rate controlled CCU Objective - Vital Signs / Intake & Output Vital Signs (Last 4 hours): Vital Signs Temp Pulse Resp BP Pulse Ox 10/12/17 13:00 100 H 23 111/53 L 96 10/12/17 12:00 98.9 F 98 H 26 H 116/62 96 10/12/17 11:01 101 H 20 132/65 96 10/12/17 11:00 111 H 23 96 10/12/17 10:53 133/69 Intake and Output (Last 8hrs): Intake & Output 10/11/17 10/12/17 10/12/17 22:59 06:59 14:59 Intake Total 696.6 676.6 783.9 Output Total 736 046 8973 Balance 1.6 -13.4 -566.1 Weight 195 lb 1.745 oz 195 lb 1.745 oz Intake: IV 195 125 350 Intake, IV Amount 321.6 421.6 393.9 Left Distal Port 16.5 44.0 38.5 Subclavian Left Medial Port 80 80 70 Subclavian Left Proximal Port 127.5 200 200 Subclavian Left Wrist 97.6 97.6 85.4 Oral 100 50 Tube Feeding 80 80 40 Output: Gastric Amount 0 0 Right Nares 0 0 Urine [phone] Urethral (Garrett) [phone] Other: # Bowel Movements 1 1 1 - Physical Exam Head: Positive for: Atraumatic, Normocephalic Pupils: Positive for: PERRL Extroacular Muscles: Positive for: EOMI Conjunctiva: Positive for: Normal Mouth: Positive for: Moist Mucous Membranes Respiratory/Chest: Positive for: Clear to Auscultation Cardiovascular: Positive for: Regular Rate and Rhythm Abdomen: Negative for: Tenderness, Distention Psychiatric: Positive for: Alert - Medications Active Medications: Active Medications Generic Name Dose Route Start Last Admin Trade Name Freq PRN Reason Stop Dose Admin Acetaminophen 650 mg 10/11/17 10:17 Tylenol 325mg Tab PO Q6 PRN Fever >100.4 F Amlodipine Besylate 10 mg 10/12/17 10:00 10/12/17 09:15 Norvasc PO 10 mg DAILY TIM Administration Aspirin 81 mg 10/12/17 10:00 10/12/17 09:14 Aspirin Chewable PO 81 mg DAILY TIM Administration Metronidazole 500 mg in 100 mls @ 100 mls/hr 10/07/17 22:00 10/12/17 13:23 Flagyl IVPB 100 mls/hr Q8 TIM Administration Heparin Sodium/Sodium Chloride 25,000 units in 250 mls @ 14.664 mls/hr 16:48 10/12/17 11:13 Heparin 82492 Units/250ml 1/2 Normal Saline IV 15 units/kg/hr .Q17H3M PRN 12.22 mls/hr ADJUST RATE PER PROTOCOL Administration Protocol 18 UNITS/KG/HR Meropenem 1 gm/ Sodium 100 mls @ 100 mls/hr 10/10/17 14:00 10/12/17 13:24 Chloride IVPB 100 mls/hr Q8H TIM Administration Diltiazem HCl 125 mg/ Dextrose 125 mls @ 5 mls/hr 10/10/17 16:45 10/12/17 06: 15 IV 10 mg/hr .Q24H TIM 10 mls/hr Protocol Administration 5 MG/HR Propofol 1,000 mg in 100 mls @ 2.73 mls/hr 10/11/17 07:39 10/12/17 10:54 Diprivan IV 10 mcg/kg/min .Q24H PRN 5.459 mls/hr TITRATE PER MD ORDER Administration Protocol 5 MCG/KG/MIN Potassium Chloride 15 meq/ 1,036.7404 mls @ 42 mls/hr 10/12/17 18:00 Potassium Phosphate 15 mmole/ IV 10/13/17 17:59 Magnesium Sulfate 10 meq/ .Q24H ONE Calcium Gluconate 4.5 meq/ Insulin Human Regular 10 unit/ Heparin Sodium (Porcine) 1, 000 units/ Chromium/Copper/ Manganese/Zinc 1 ml/ Multivitamins/Vitamin C 10 ml/ Amino Acids Insulin Human Regular 0 unit 10/08/17 06:00 10/12/17 12:49 Novolin R SC Not Given Q6H [facility] Protocol Levothyroxine Sodium 50 mcg 10/12/17 06:30 10/12/17 06:05 Synthroid PO 50 mcg DAILY@0630 TIM Administration Losartan Potassium 100 mg 10/12/17 10:00 10/12/17 09:14 Cozaar PO 100 mg DAILY TIM Administration Metoprolol Tartrate 5 mg 10/10/17 17:00 10/12/17 10:53 Lopressor IVP 5 mg Q6H TIM Administration Midazolam HCl 2 mg 10/09/17 15:40 10/11/17 07:17 Versed Inj IVP 2 mg Q4H PRN Administration Agitation Ondansetron HCl 4 mg 10/07/17 19:28 10/10/17 21:10 Zofran Inj IVP 4 mg Q6H PRN Administration Nausea/Vomiting Pantoprazole Sodium 40 mg 10/08/17 10:00 10/12/17 11:16 Protonix Inj IVP 40 mg DAILY TIM Administration Polyethylene Glycol 17 gm 10/06/17 15:08 10/07/17 10:14 Miralax PO 17 gm BID PRN Administration Constipation Rosuvastatin Calcium 5 mg 10/11/17 22:00 10/11/17 22:00 Crestor NG 5 mg HS TIM Administration Saccharomyces Boulardii 250 mg 10/10/17 11:15 10/12/17 09:15 Florastor NG 250 mg BID TIM Administration Vitamin A 0.5 ea 10/11/17 20:00 10/12/17 13:22 Vitamin A & D Oint Ud Foilpak TOP 0.5 ea Q4 TIM Administration - Patient Studies Lab Studies: Microbiology Studies 10/11/17 12:52 Urine Culture - Final Urine,Garrett No Growth (<1,000 CFU/ML) 10/07/17 21:36 Blood Culture - Preliminary Blood-Venous NO GROWTH AFTER 4 DAYS 10/06/17 16:45 Blood Culture - Final Blood NO GROWTH AFTER 5 DAYS Gram Stain - Final TEST NOT PERFORMED 10/06/17 17:16 Blood Culture - Final Blood NO GROWTH AFTER 5 DAYS Gram Stain - Final TEST NOT PERFORMED Lab Studies 10/12/17 10/12/17 10/12/17 Range/Units 11:35 06:22 06:22 WBC (4.8-10.8) K/uL RBC (3.80-5.20) Mil/uL Hgb (11.0-16.0) g/dL Hct (34.0-47.0) % MCV (81.0-99.0) fL MCH (27.0-31.0) pg MCHC (33.0-37.0) g/dL RDW (11.5-14.5) % Plt Count (130-400) K/uL MPV (7.2-11.7) fL Neut % (Auto) (50.0-75.0) % Lymph % (Auto) (20.0-40.0) % [place] % (Auto) (0.0-10.0) % Eos % (Auto) (0.0-4.0) % Baso % (Auto) (0.0-2.0) % Neut # (1.8-7.0) K/uL Lymph # (1.0-4.3) K/uL [place] # (0.0-0.8) K/uL Eos # (0.0-0.7) K/uL Baso # (0.0-0.2) K/uL APTT 74 H D (21-34) SECONDS Puncture Site pCO2 (35-45) mm/Hg pO2 (80-100) mm/Hg HCO3 (21-28) mmol/L ABG pH (7.35-7.45) ABG Total CO2 (22-28) mmol/L ABG O2 Saturation (95-98) % ABG Base Excess (-2.0-3.0) mmol/L ABG Hemoglobin (11.7-17.4) g/dL ABG Carboxyhemoglobin (0.5-1.5) % POC ABG HHb (Measured) (0.0-5.0) % ABG Methemoglobin (0.0-3.0) % Dayron Test A-a O2 Difference mm/Hg Respiratory Index Hgb O2 Saturation (95.0-98.0) % Vent Mode Mechanical Rate FiO2 % Tidal Volume PEEP Sodium (132-148) mmol/L Potassium (3.6-5.2) mmol/L Chloride (98-107) mmol/L Carbon Dioxide (22-30) mmol/L Anion Gap (10-20) BUN (7-17) mg/dL Creatinine (0.7-1.2) mg/dL Est GFR ( Amer) Est GFR (Non-Af Amer) POC Glucose (mg/dL) 130 H 108 (65-110) mg/dL Random Glucose (65-105) mg/dL Calcium (8.6-10.4) mg/dl Phosphorus (2.5-4.5) mg/dL Magnesium (1.6-2.3) mg/dL Total Bilirubin (0.2-1.3) mg/dL AST (14-36) U/L ALT (9-52) U/L Alkaline Phosphatase (38-126) U/L Total Protein (6.3-8.3) g/dL Albumin (3.5-5.0) g/dL Globulin (2.2-3.9) gm/dL Albumin/Globulin Ratio (1.0-2.1) 10/12/17 10/12/17 10/12/17 Range/Units 06:22 06:22 05:40 WBC 16.8 H (4.8-10.8) K/uL RBC 4.04 (3.80-5.20) Mil/uL Hgb 11.8 (11.0-16.0) g/dL Hct 34.8 (34.0-47.0) % MCV 86.1 (81.0-99.0) fL MCH 29.1 (27.0-31.0) pg MCHC 33.8 (33.0-37.0) g/dL RDW 15.7 H (11.5-14.5) % Plt Count 325 (130-400) K/uL MPV 8.6 (7.2-11.7) fL Neut % (Auto) 71.2 (50.0-75.0) % Lymph % (Auto) 11.5 L (20.0-40.0) % [place] % (Auto) 15.0 H (0.0-10.0) % Eos % (Auto) 1.5 (0.0-4.0) % Baso % (Auto) 0.8 (0.0-2.0) % Neut # 12.0 H (1.8-7.0) K/uL Lymph # 1.9 (1.0-4.3) K/uL [place] # 2.5 H (0.0-0.8) K/uL Eos # 0.2 (0.0-0.7) K/uL Baso # 0.1 (0.0-0.2) K/uL APTT (21-34) SECONDS Puncture Site Rr pCO2 23 L (35-45) mm/Hg pO2 78 L (80-100) mm/Hg HCO3 19.3 L (21-28) mmol/L ABG pH 7.44 (7.35-7.45) ABG Total CO2 16.3 L (22-28) mmol/L ABG O2 Saturation 96.8 (95-98) % ABG Base Excess -7.2 L (-2.0-3.0) mmol/L ABG Hemoglobin 10.0 L (11.7-17.4) g/dL ABG Carboxyhemoglobin 0.9 (0.5-1.5) % POC ABG HHb (Measured) 3.1 (0.0-5.0) % ABG Methemoglobin 1.0 (0.0-3.0) % Dayron Test Pos A-a O2 Difference 321.0 mm/Hg Respiratory Index 4.1 Hgb O2 Saturation 95.0 (95.0-98.0) % Vent Mode Prvc Mechanical Rate 12 FiO2 60.0 % Tidal Volume 500 PEEP 5 Sodium 153 H (132-148) mmol/L Potassium 3.3 L (3.6-5.2) mmol/L Chloride 124 H (98-107) mmol/L Carbon Dioxide 23 (22-30) mmol/L Anion Gap 10 (10-20) BUN 29 H (7-17) mg/dL Creatinine 0.9 (0.7-1.2) mg/dL Est GFR ( Amer) > 60 Est GFR (Non-Af Amer) > 60 POC Glucose (mg/dL) (65-110) mg/dL Random Glucose 127 H (65-105) mg/dL Calcium 8.2 L (8.6-10.4) mg/dl Phosphorus 1.6 L (2.5-4.5) mg/dL Magnesium 1.8 (1.6-2.3) mg/dL Total Bilirubin 0.6 (0.2-1.3) mg/dL AST 19 (14-36) U/L ALT 24 (9-52) U/L Alkaline Phosphatase 110 (38-126) U/L Total Protein 5.2 L (6.3-8.3) g/dL Albumin 2.6 L (3.5-5.0) g/dL Globulin 2.6 (2.2-3.9) gm/dL Albumin/Globulin Ratio 1.0 (1.0-2.1) 10/12/17 10/11/17 Range/Units 00:03 17:36 WBC (4.8-10.8) K/uL RBC (3.80-5.20) Mil/uL Hgb (11.0-16.0) g/dL Hct (34.0-47.0) % MCV (81.0-99.0) fL MCH (27.0-31.0) pg MCHC (33.0-37.0) g/dL RDW (11.5-14.5) % Plt Count (130-400) K/uL MPV (7.2-11.7) fL Neut % (Auto) (50.0-75.0) % Lymph % (Auto) (20.0-40.0) % [place] % (Auto) (0.0-10.0) % Eos % (Auto) (0.0-4.0) % Baso % (Auto) (0.0-2.0) % Neut # (1.8-7.0) K/uL Lymph # (1.0-4.3) K/uL [place] # (0.0-0.8) K/uL Eos # (0.0-0.7) K/uL Baso # (0.0-0.2) K/uL APTT (21-34) SECONDS Puncture Site pCO2 (35-45) mm/Hg pO2 (80-100) mm/Hg HCO3 (21-28) mmol/L ABG pH (7.35-7.45) ABG Total CO2 (22-28) mmol/L ABG O2 Saturation (95-98) % ABG Base Excess (-2.0-3.0) mmol/L ABG Hemoglobin (11.7-17.4) g/dL ABG Carboxyhemoglobin (0.5-1.5) % POC ABG HHb (Measured) (0.0-5.0) % ABG Methemoglobin (0.0-3.0) % Dayron Test A-a O2 Difference mm/Hg Respiratory Index Hgb O2 Saturation (95.0-98.0) % Vent Mode Mechanical Rate FiO2 % Tidal Volume PEEP Sodium (132-148) mmol/L Potassium (3.6-5.2) mmol/L Chloride (98-107) mmol/L Carbon Dioxide (22-30) mmol/L Anion Gap (10-20) BUN (7-17) mg/dL Creatinine (0.7-1.2) mg/dL Est GFR ( Amer) Est GFR (Non-Af Amer) POC Glucose (mg/dL) 121 H 128 H (65-110) mg/dL Random Glucose (65-105) mg/dL Calcium (8.6-10.4) mg/dl Phosphorus (2.5-4.5) mg/dL Magnesium (1.6-2.3) mg/dL Total Bilirubin (0.2-1.3) mg/dL AST (14-36) U/L ALT (9-52) U/L Alkaline Phosphatase (38-126) U/L Total Protein (6.3-8.3) g/dL Albumin (3.5-5.0) g/dL Globulin (2.2-3.9) gm/dL Albumin/Globulin Ratio (1.0-2.1) Laboratory Results - last 24 hr 10/11/17 10/12/17 10/12/17 17:36 00:03 05:40 WBC RBC Hgb Hct MCV MCH MCHC RDW Plt Count MPV Neut % (Auto) Lymph % (Auto) [place] % (Auto) Eos % (Auto) Baso % (Auto) Neut # Lymph # [place] # Eos # Baso # APTT Puncture Site Rr pCO2 23 L pO2 78 L HCO3 19.3 L ABG pH 7.44 ABG Total CO2 16.3 L ABG O2 Saturation 96.8 ABG Base Excess -7.2 L ABG Hemoglobin 10.0 L ABG Carboxyhemoglobin 0.9 POC ABG HHb (Measured) 3.1 ABG Methemoglobin 1.0 Dayron Test Pos A-a O2 Difference 321.0 Respiratory Index 4.1 Hgb O2 Saturation 95.0 Vent Mode Prvc Mechanical Rate 12 FiO2 60.0 Tidal Volume 500 PEEP 5 Sodium Potassium Chloride Carbon Dioxide Anion Gap BUN Creatinine Est GFR ( Amer) Est GFR (Non-Af Amer) POC Glucose (mg/dL) 128 H 121 H Random Glucose Calcium Phosphorus Magnesium Total Bilirubin AST ALT Alkaline Phosphatase Total Protein Albumin Globulin Albumin/Globulin Ratio 10/12/17 10/12/17 10/12/17 06:22 06:22 06:22 WBC 16.8 H RBC 4.04 Hgb 11.8 Hct 34.8 MCV 86.1 MCH 29.1 MCHC 33.8 RDW 15.7 H Plt Count 325 MPV 8.6 Neut % (Auto) 71.2 Lymph % (Auto) 11.[address] [place] % (Auto) 15.0 H Eos % (Auto) 1.5 Baso % (Auto) 0.8 Neut # 12.0 H Lymph # 1.9 [place] # 2.5 H Eos # 0.2 Baso # 0.1 APTT 74 H D Puncture Site pCO2 pO2 HCO3 ABG pH ABG Total CO2 ABG O2 Saturation ABG Base Excess ABG Hemoglobin ABG Carboxyhemoglobin POC ABG HHb (Measured) ABG Methemoglobin Dayron Test A-a O2 Difference Respiratory Index Hgb O2 Saturation Vent Mode Mechanical Rate FiO2 Tidal Volume PEEP Sodium 153 H Potassium 3.3 L Chloride 124 H Carbon Dioxide 23 Anion Gap 10 BUN 29 H Creatinine 0.9 Est GFR ( Amer) > 60 Est GFR (Non-Af Amer) > 60 POC Glucose (mg/dL) Random Glucose 127 H Calcium 8.2 L Phosphorus 1.6 L Magnesium 1.8 Total Bilirubin 0.6 AST 19 ALT 24 Alkaline Phosphatase 110 Total Protein 5.2 L Albumin 2.6 L Globulin 2.6 Albumin/Globulin Ratio 1.0 10/12/17 10/12/17 06:22 11:35 WBC RBC Hgb Hct MCV MCH MCHC RDW Plt Count MPV Neut % (Auto) Lymph % (Auto) [place] % (Auto) Eos % (Auto) Baso % (Auto) Neut # Lymph # [place] # Eos # Baso # APTT Puncture Site pCO2 pO2 HCO3 ABG pH ABG Total CO2 ABG O2 Saturation ABG Base Excess ABG Hemoglobin ABG Carboxyhemoglobin POC ABG HHb (Measured) ABG Methemoglobin Dayron Test A-a O2 Difference Respiratory Index Hgb O2 Saturation Vent Mode Mechanical Rate FiO2 Tidal Volume PEEP Sodium Potassium Chloride Carbon Dioxide Anion Gap BUN Creatinine Est GFR ( Amer) Est GFR (Non-Af Amer) POC Glucose (mg/dL) 108 130 H Random Glucose Calcium Phosphorus Magnesium Total Bilirubin AST ALT Alkaline Phosphatase Total Protein Albumin Globulin Albumin/Globulin Ratio Fingerstick Blood Sugar Results: 130 Critical Care Progress Note - Nutrition Nutrition: Nutrition Category Date Time Status NPO Diet [DIET] Diets 10/07/17 Dinner Active Assessment/Plan - Assessment and Plan (Free Text) Assessment: 77F s/p small bowel resection for ischemic bowel Cardio: Cards (Amadeo) tachy s/p pacemaker lopressor 5 iv q6 diltizem drip heparin drip Fem TLC removed, L. 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 NPO flagyl, merrem : garrett, good UO Endo: DM ISS PPX: protonix heparin drip <Delvin Frias S - Last Filed: 10/12/17 16:42> CCU Objective - Vital Signs / Intake & Output Vital Signs (Last 4 hours): Vital Signs Temp Pulse Resp BP Pulse Ox 10/12/17 16:01 111 H 17 121/62 97 10/12/17 16:00 99.5 F 112 H 22 97 10/12/17 15:01 135/66 10/12/17 15:00 117 H 22 97 10/12/17 14:00 100 H 22 137/68 97 10/12/17 13:00 100 H 23 111/53 L 96 Intake and Output (Last 8hrs): Intake & Output 10/12/17 10/12/17 10/12/17 06:59 14:59 22:59 Intake Total 676.6 911.6 165.4 Output Total 690 1700 Balance -13.4 -788.4 165.4 Weight 195 lb 1.745 oz 195 lb 1.745 oz Intake: IV 125 350 Intake, IV Amount 421.6 521.6 155.4 Left Distal Port 44.0 44.0 11.0 Subclavian Left Medial Port 80 80 20 Subclavian Left Proximal Port 200 300 100 Subclavian Left Wrist 97.6 97.6 24.4 Oral 50 Tube Feeding 80 40 10 Output: Gastric Amount 0 Right Nares 0 Urine 690 1700 Urethral (Garrett) 690 1700 Other: # Bowel Movements 1 1 - Medications Active Medications: Active Medications Generic Name Dose Route Start Last Admin Trade Name Freq PRN Reason Stop Dose Admin Acetaminophen 650 mg 10/11/17 10:17 Tylenol 325mg Tab PO Q6 PRN Fever >100.4 F Amlodipine Besylate 10 mg 10/12/17 10:00 10/12/17 09:15 Norvasc PO 10 mg DAILY TIM Administration Aspirin 81 mg 10/12/17 10:00 10/12/17 09:14 Aspirin Chewable PO 81 mg DAILY TIM Administration Furosemide 40 mg 10/12/17 22:00 Lasix IVP Q12 TIM Metronidazole 500 mg in 100 mls @ 100 mls/hr 10/07/17 22:00 10/12/17 13:23 Flagyl IVPB 100 mls/hr Q8 TIM Administration Heparin Sodium/Sodium Chloride 25,000 units in 250 mls @ 14.664 mls/hr 16:48 10/12/17 11:13 Heparin 92596 Units/250ml 1/2 Normal Saline IV 15 units/kg/hr .Q17H3M PRN 12.22 mls/hr ADJUST RATE PER PROTOCOL Administration Protocol 18 UNITS/KG/HR Meropenem 1 gm/ Sodium 100 mls @ 100 mls/hr 10/10/17 14:00 10/12/17 13:24 Chloride IVPB 100 mls/hr Q8H TIM Administration Diltiazem HCl 125 mg/ Dextrose 125 mls @ 5 mls/hr 10/10/17 16:45 10/12/17 06: 15 IV 10 mg/hr .Q24H TIM 10 mls/hr Protocol Administration 5 MG/HR Propofol 1,000 mg in 100 mls @ 2.73 mls/hr 10/11/17 07:39 10/12/17 10:54 Diprivan IV 10 mcg/kg/min .Q24H PRN 5.459 mls/hr TITRATE PER MD ORDER Administration Protocol 5 MCG/KG/MIN Potassium Chloride 15 meq/ 1,036.7404 mls @ 42 mls/hr 10/12/17 18:00 Potassium Phosphate 15 mmole/ IV 10/13/17 17:59 Magnesium Sulfate 10 meq/ .Q24H ONE Calcium Gluconate 4.5 meq/ Insulin Human Regular 10 unit/ Heparin Sodium (Porcine) 1, 000 units/ Chromium/Copper/ Manganese/Zinc 1 ml/ Multivitamins/Vitamin C 10 ml/ Amino Acids Insulin Human Regular 0 unit 10/08/17 06:00 10/12/17 12:49 Novolin R SC Not Given Q6H [facility] Protocol Levothyroxine Sodium 50 mcg 10/12/17 06:30 10/12/17 06:05 Synthroid PO 50 mcg DAILY@0630 TIM Administration Losartan Potassium 100 mg 10/12/17 10:00 10/12/17 09:14 Cozaar PO 100 mg DAILY TIM Administration Metoprolol Tartrate 5 mg 10/10/17 17:00 10/12/17 10:53 Lopressor IVP 5 mg Q6H TIM Administration Midazolam HCl 2 mg 10/09/17 15:40 10/11/17 07:17 Versed Inj IVP 2 mg Q4H PRN Administration Agitation Ondansetron HCl 4 mg 10/07/17 19:28 10/10/17 21:10 Zofran Inj IVP 4 mg Q6H PRN Administration Nausea/Vomiting Pantoprazole Sodium 40 mg 10/08/17 10:00 10/12/17 11:16 Protonix Inj IVP 40 mg DAILY TIM Administration Polyethylene Glycol 17 gm 10/06/17 15:08 10/07/17 10:14 Miralax PO 17 gm BID PRN Administration Constipation Rosuvastatin Calcium 5 mg 10/11/17 22:00 10/11/17 22:00 Crestor NG 5 mg HS TIM Administration Saccharomyces Boulardii 250 mg 10/10/17 11:15 10/12/17 09:15 Florastor NG 250 mg BID TIM Administration Vitamin A 0.5 ea 10/11/17 20:00 10/12/17 13:22 Vitamin A & D Oint Ud Foilpak TOP 0.5 ea Q4 TIM Administration - Patient Studies Lab Studies: Microbiology Studies 10/11/17 12:52 Urine Culture - Final Urine,Garrett No Growth (<1,000 CFU/ML) 10/07/17 21:36 Blood Culture - Preliminary Blood-Venous NO GROWTH AFTER 4 DAYS 10/06/17 16:45 Blood Culture - Final Blood NO GROWTH AFTER 5 DAYS Gram Stain - Final TEST NOT PERFORMED 10/06/17 17:16 Blood Culture - Final Blood NO GROWTH AFTER 5 DAYS Gram Stain - Final TEST NOT PERFORMED Lab Studies 10/12/17 10/12/17 10/12/17 Range/Units 11:35 06:22 06:22 WBC (4.8-10.8) K/uL RBC (3.80-5.20) Mil/uL Hgb (11.0-16.0) g/dL Hct (34.0-47.0) % MCV (81.0-99.0) fL MCH (27.0-31.0) pg MCHC (33.0-37.0) g/dL RDW (11.5-14.5) % Plt Count (130-400) K/uL MPV (7.2-11.7) fL Neut % (Auto) (50.0-75.0) % Lymph % (Auto) (20.0-40.0) % [place] % (Auto) (0.0-10.0) % Eos % (Auto) (0.0-4.0) % Baso % (Auto) (0.0-2.0) % Neut # (1.8-7.0) K/uL Lymph # (1.0-4.3) K/uL [place] # (0.0-0.8) K/uL Eos # (0.0-0.7) K/uL Baso # (0.0-0.2) K/uL APTT 74 H D (21-34) SECONDS Puncture Site pCO2 (35-45) mm/Hg pO2 (80-100) mm/Hg HCO3 (21-28) mmol/L ABG pH (7.35-7.45) ABG Total CO2 (22-28) mmol/L ABG O2 Saturation (95-98) % ABG Base Excess (-2.0-3.0) mmol/L ABG Hemoglobin (11.7-17.4) g/dL ABG Carboxyhemoglobin (0.5-1.5) % POC ABG HHb (Measured) (0.0-5.0) % ABG Methemoglobin (0.0-3.0) % Dayron Test A-a O2 Difference mm/Hg Respiratory Index Hgb O2 Saturation (95.0-98.0) % Vent Mode Mechanical Rate FiO2 % Tidal Volume PEEP Sodium (132-148) mmol/L Potassium (3.6-5.2) mmol/L Chloride (98-107) mmol/L Carbon Dioxide (22-30) mmol/L Anion Gap (10-20) BUN (7-17) mg/dL Creatinine (0.7-1.2) mg/dL Est GFR ( Amer) Est GFR (Non-Af Amer) POC Glucose (mg/dL) 130 H 108 (65-110) mg/dL Random Glucose (65-105) mg/dL Calcium (8.6-10.4) mg/dl Phosphorus (2.5-4.5) mg/dL Magnesium (1.6-2.3) mg/dL Total Bilirubin (0.2-1.3) mg/dL AST (14-36) U/L ALT (9-52) U/L Alkaline Phosphatase (38-126) U/L Total Protein (6.3-8.3) g/dL Albumin (3.5-5.0) g/dL Globulin (2.2-3.9) gm/dL Albumin/Globulin Ratio (1.0-2.1) 10/12/17 10/12/17 10/12/17 Range/Units 06:22 06:22 05:40 WBC 16.8 H (4.8-10.8) K/uL RBC 4.04 (3.80-5.20) Mil/uL Hgb 11.8 (11.0-16.0) g/dL Hct 34.8 (34.0-47.0) % MCV 86.1 (81.0-99.0) fL MCH 29.1 (27.0-31.0) pg MCHC 33.8 (33.0-37.0) g/dL RDW 15.7 H (11.5-14.5) % Plt Count 325 (130-400) K/uL MPV 8.6 (7.2-11.7) fL Neut % (Auto) 71.2 (50.0-75.0) % Lymph % (Auto) 11.5 L (20.0-40.0) % [place] % (Auto) 15.0 H (0.0-10.0) % Eos % (Auto) 1.5 (0.0-4.0) % Baso % (Auto) 0.8 (0.0-2.0) % Neut # 12.0 H (1.8-7.0) K/uL Lymph # 1.9 (1.0-4.3) K/uL [place] # 2.5 H (0.0-0.8) K/uL Eos # 0.2 (0.0-0.7) K/uL Baso # 0.1 (0.0-0.2) K/uL APTT (21-34) SECONDS Puncture Site Rr pCO2 23 L (35-45) mm/Hg pO2 78 L (80-100) mm/Hg HCO3 19.3 L (21-28) mmol/L ABG pH 7.44 (7.35-7.45) ABG Total CO2 16.3 L (22-28) mmol/L ABG O2 Saturation 96.8 (95-98) % ABG Base Excess -7.2 L (-2.0-3.0) mmol/L ABG Hemoglobin 10.0 L (11.7-17.4) g/dL ABG Carboxyhemoglobin 0.9 (0.5-1.5) % POC ABG HHb (Measured) 3.1 (0.0-5.0) % ABG Methemoglobin 1.0 (0.0-3.0) % Dayron Test Pos A-a O2 Difference 321.0 mm/Hg Respiratory Index 4.1 Hgb O2 Saturation 95.0 (95.0-98.0) % Vent Mode Prvc Mechanical Rate 12 FiO2 60.0 % Tidal Volume 500 PEEP 5 Sodium 153 H (132-148) mmol/L Potassium 3.3 L (3.6-5.2) mmol/L Chloride 124 H (98-107) mmol/L Carbon Dioxide 23 (22-30) mmol/L Anion Gap 10 (10-20) BUN 29 H (7-17) mg/dL Creatinine 0.9 (0.7-1.2) mg/dL Est GFR ( Amer) > 60 Est GFR (Non-Af Amer) > 60 POC Glucose (mg/dL) (65-110) mg/dL Random Glucose 127 H (65-105) mg/dL Calcium 8.2 L (8.6-10.4) mg/dl Phosphorus 1.6 L (2.5-4.5) mg/dL Magnesium 1.8 (1.6-2.3) mg/dL Total Bilirubin 0.6 (0.2-1.3) mg/dL AST 19 (14-36) U/L ALT 24 (9-52) U/L Alkaline Phosphatase 110 (38-126) U/L Total Protein 5.2 L (6.3-8.3) g/dL Albumin 2.6 L (3.5-5.0) g/dL Globulin 2.6 (2.2-3.9) gm/dL Albumin/Globulin Ratio 1.0 (1.0-2.1) 10/12/17 10/11/17 Range/Units 00:03 17:36 WBC (4.8-10.8) K/uL RBC (3.80-5.20) Mil/uL Hgb (11.0-16.0) g/dL Hct (34.0-47.0) % MCV (81.0-99.0) fL MCH (27.0-31.0) pg MCHC (33.0-37.0) g/dL RDW (11.5-14.5) % Plt Count (130-400) K/uL MPV (7.2-11.7) fL Neut % (Auto) (50.0-75.0) % Lymph % (Auto) (20.0-40.0) % [place] % (Auto) (0.0-10.0) % Eos % (Auto) (0.0-4.0) % Baso % (Auto) (0.0-2.0) % Neut # (1.8-7.0) K/uL Lymph # (1.0-4.3) K/uL [place] # (0.0-0.8) K/uL Eos # (0.0-0.7) K/uL Baso # (0.0-0.2) K/uL APTT (21-34) SECONDS Puncture Site pCO2 (35-45) mm/Hg pO2 (80-100) mm/Hg HCO3 (21-28) mmol/L ABG pH (7.35-7.45) ABG Total CO2 (22-28) mmol/L ABG O2 Saturation (95-98) % ABG Base Excess (-2.0-3.0) mmol/L ABG Hemoglobin (11.7-17.4) g/dL ABG Carboxyhemoglobin (0.5-1.5) % POC ABG HHb (Measured) (0.0-5.0) % ABG Methemoglobin (0.0-3.0) % Dayron Test A-a O2 Difference mm/Hg Respiratory Index Hgb O2 Saturation (95.0-98.0) % Vent Mode Mechanical Rate FiO2 % Tidal Volume PEEP Sodium (132-148) mmol/L Potassium (3.6-5.2) mmol/L Chloride (98-107) mmol/L Carbon Dioxide (22-30) mmol/L Anion Gap (10-20) BUN (7-17) mg/dL Creatinine (0.7-1.2) mg/dL Est GFR ( Amer) Est GFR (Non-Af Amer) POC Glucose (mg/dL) 121 H 128 H (65-110) mg/dL Random Glucose (65-105) mg/dL Calcium (8.6-10.4) mg/dl Phosphorus (2.5-4.5) mg/dL Magnesium (1.6-2.3) mg/dL Total Bilirubin (0.2-1.3) mg/dL AST (14-36) U/L ALT (9-52) U/L Alkaline Phosphatase (38-126) U/L Total Protein (6.3-8.3) g/dL Albumin (3.5-5.0) g/dL Globulin (2.2-3.9) gm/dL Albumin/Globulin Ratio (1.0-2.1) Laboratory Results - last 24 hr 10/11/17 10/12/17 10/12/17 17:36 00:03 05:40 WBC RBC Hgb Hct MCV MCH MCHC RDW Plt Count MPV Neut % (Auto) Lymph % (Auto) [place] % (Auto) Eos % (Auto) Baso % (Auto) Neut # Lymph # [place] # Eos # Baso # APTT Puncture Site Rr pCO2 23 L pO2 78 L HCO3 19.3 L ABG pH 7.44 ABG Total CO2 16.3 L ABG O2 Saturation 96.8 ABG Base Excess -7.2 L ABG Hemoglobin 10.0 L ABG Carboxyhemoglobin 0.9 POC ABG HHb (Measured) 3.1 ABG Methemoglobin 1.0 Dayron Test Pos A-a O2 Difference 321.0 Respiratory Index 4.1 Hgb O2 Saturation 95.0 Vent Mode Prvc Mechanical Rate 12 FiO2 60.0 Tidal Volume 500 PEEP 5 Sodium Potassium Chloride Carbon Dioxide Anion Gap BUN Creatinine Est GFR ( Amer) Est GFR (Non-Af Amer) POC Glucose (mg/dL) 128 H 121 H Random Glucose Calcium Phosphorus Magnesium Total Bilirubin AST ALT Alkaline Phosphatase Total Protein Albumin Globulin Albumin/Globulin Ratio 10/12/17 10/12/17 10/12/17 06:22 06:22 06:22 WBC 16.8 H RBC 4.04 Hgb 11.8 Hct 34.8 MCV 86.1 MCH 29.1 MCHC 33.8 RDW 15.7 H Plt Count 325 MPV 8.6 Neut % (Auto) 71.2 Lymph % (Auto) 11.[address] [place] % (Auto) 15.0 H Eos % (Auto) 1.5 Baso % (Auto) 0.8 Neut # 12.0 H Lymph # 1.9 [place] # 2.5 H Eos # 0.2 Baso # 0.1 APTT 74 H D Puncture Site pCO2 pO2 HCO3 ABG pH ABG Total CO2 ABG O2 Saturation ABG Base Excess ABG Hemoglobin ABG Carboxyhemoglobin POC ABG HHb (Measured) ABG Methemoglobin Dayron Test A-a O2 Difference Respiratory Index Hgb O2 Saturation Vent Mode Mechanical Rate FiO2 Tidal Volume PEEP Sodium 153 H Potassium 3.3 L Chloride 124 H Carbon Dioxide 23 Anion Gap 10 BUN 29 H Creatinine 0.9 Est GFR ( Amer) > 60 Est GFR (Non-Af Amer) > 60 POC Glucose (mg/dL) Random Glucose 127 H Calcium 8.2 L Phosphorus 1.6 L Magnesium 1.8 Total Bilirubin 0.6 AST 19 ALT 24 Alkaline Phosphatase 110 Total Protein 5.2 L Albumin 2.6 L Globulin 2.6 Albumin/Globulin Ratio 1.0 10/12/17 10/12/17 06:22 11:35 WBC RBC Hgb Hct MCV MCH MCHC RDW Plt Count MPV Neut % (Auto) Lymph % (Auto) [place] % (Auto) Eos % (Auto) Baso % (Auto) Neut # Lymph # [place] # Eos # Baso # APTT Puncture Site pCO2 pO2 HCO3 ABG pH ABG Total CO2 ABG O2 Saturation ABG Base Excess ABG Hemoglobin ABG Carboxyhemoglobin POC ABG HHb (Measured) ABG Methemoglobin Dayron Test A-a O2 Difference Respiratory Index Hgb O2 Saturation Vent Mode Mechanical Rate FiO2 Tidal Volume PEEP Sodium Potassium Chloride Carbon Dioxide Anion Gap BUN Creatinine Est GFR ( Amer) Est GFR (Non-Af Amer) POC Glucose (mg/dL) 108 130 H Random Glucose Calcium Phosphorus Magnesium Total Bilirubin AST ALT Alkaline Phosphatase Total Protein Albumin Globulin Albumin/Globulin Ratio Critical Care Progress Note - Nutrition Nutrition: Nutrition Category Date Time Status NPO Diet [DIET] Diets 10/07/17 Dinner Active Attending/Attestation - Attestation I have personally seen and examined this patient.: Yes I have fully participated in the care of the patient.: Yes I have reviewed all pertinent clinical information: Yes Notes (Text): 10/12/17 16:41 patient seen and examined in the intensive care unit. Remains on Cardizem drip Continue heparin Oxygenation improving Continue IV antibiotics
[2017-10-12] MEDS ORDERED: TPN#1 IV ONE (18:00)
--- NOTE | 2017-10-12 18:22 | CP.PCM.PN ---
Subjective - Date & Time of Evaluation Date of Evaluation: 10/12/17 Time of Evaluation: 15:45 - Subjective Subjective: General Surgery Pt S&E, NAEO. Intubated. On cardizem drip. HR improved. Objective - Vital Signs/Intake and Output Vital Signs (last 24 hours): Temp Pulse Resp BP Pulse Ox 99.5 F 86 21 127/54 L 96 10/12/17 16:00 10/12/17 18:01 10/12/17 18:01 10/12/17 18:01 10/12/17 18:01 Intake and Output: 10/12/17 10/12/17 06:59 18:59 Intake Total 1087.4 1319.4 Output Total 995 1700 Balance 92.4 -380.6 - Medications Medications: Current Medications Acetaminophen (Tylenol 325mg Tab) 650 mg PO Q6 PRN PRN Reason: Fever >100.4 F Amlodipine Besylate (Norvasc) 10 mg PO DAILY [facility] Last Admin: 10/12/17 09:15 Dose: 10 mg Aspirin (Aspirin Chewable) 81 mg PO DAILY [facility] Last Admin: 10/12/17 09:14 Dose: 81 mg Furosemide (Lasix) 40 mg IVP Q12 TIM Metronidazole (Flagyl) 500 mg in 100 mls @ 100 mls/hr IVPB Q8 TIM Last Admin: 10/12/17 13:23 Dose: 100 mls/hr Heparin Sodium/Sodium Chloride (Heparin 73998 Units/250ml 1/2 Normal Saline) 25 ,000 units in 250 mls @ 14.664 mls/hr IV .Q17H3M PRN; Protocol; 18 UNITS/KG/HR PRN Reason: ADJUST RATE PER PROTOCOL Last Admin: 10/12/17 11:13 Dose: 15 units/kg/hr, 12.22 mls/hr Meropenem 1 gm/ Sodium (Chloride) 100 mls @ 100 mls/hr IVPB Q8H [facility] Last Admin: 10/12/17 13:24 Dose: 100 mls/hr Diltiazem HCl 125 mg/ Dextrose 125 mls @ 5 mls/hr IV .Q24H TIM; 5 MG/HR PRN Reason: Protocol Last Admin: 10/12/17 17:43 Dose: 10 mg/hr, 10 mls/hr Propofol (Diprivan) 1,000 mg in 100 mls @ 2.73 mls/hr IV .Q24H PRN; Protocol; 5 MCG/KG/MIN PRN Reason: TITRATE PER MD ORDER Last Admin: 10/12/17 10:54 Dose: 10 mcg/kg/min, 5.459 mls/hr Potassium Chloride 15 meq/Potassium Phosphate 15 mmole/Magnesium Sulfate 10 meq/ Calcium Gluconate 4.5 meq/Insulin Human Regular 10 unit/Heparin Sodium (Porcine ) 1, 000 units/ Chromium/Copper/Manganese/Zinc 1 ml/Multivitamins/Vitamin C 10 ml/Amino Acids 1,036.7404 mls @ 42 mls/hr IV .Q24H ONE Stop: 10/13/17 17:59 Last Admin: 10/12/17 17:06 Dose: 42 mls/hr Insulin Human Regular (Novolin R) 0 unit SC Q6H [facility] PRN Reason: Protocol Last Admin: 10/12/17 18:15 Dose: Not Given Levothyroxine Sodium (Synthroid) 50 mcg PO DAILY@0630 [facility] Last Admin: 10/12/17 06:05 Dose: 50 mcg Losartan Potassium (Cozaar) 100 mg PO DAILY [facility] Last Admin: 10/12/17 09:14 Dose: 100 mg Metoprolol Tartrate (Lopressor) 5 mg IVP Q6H [facility] Last Admin: 10/12/17 17:05 Dose: 5 mg Midazolam HCl (Versed Inj) 2 mg IVP Q4H PRN PRN Reason: Agitation Last Admin: 10/11/17 07:17 Dose: 2 mg Ondansetron HCl (Zofran Inj) 4 mg IVP Q6H PRN PRN Reason: Nausea/Vomiting Last Admin: 10/10/17 21:10 Dose: 4 mg Pantoprazole Sodium (Protonix Inj) 40 mg IVP DAILY [facility] Last Admin: 10/12/17 11:16 Dose: 40 mg Polyethylene Glycol (Miralax) 17 gm PO BID PRN PRN Reason: Constipation Last Admin: 10/07/17 10:14 Dose: 17 gm Rosuvastatin Calcium (Crestor) 5 mg NG HS [facility] Last Admin: 10/11/17 22:00 Dose: 5 mg Saccharomyces Boulardii (Florastor) 250 mg NG BID [facility] Last Admin: 10/12/17 17:05 Dose: 250 mg Vitamin A (Vitamin A & D Oint Ud Foilpak) 0.5 ea TOP Q4 TIM Last Admin: 10/12/17 17:06 Dose: 0.5 ea - Labs Labs: 10/12/17 06:22 10/12/17 06:22 PT 12.2 SECONDS (9.7-12.2) 10/04/17 18:30 INR 1.1 10/04/17 18:30 APTT 74 SECONDS (21-34) H D 10/12/17 06:22 - Constitutional Appears: Non-toxic, No Acute Distress - Head Exam Head Exam: ATRAUMATIC, NORMOCEPHALIC - Eye Exam Eye Exam: EOMI. absent: Scleral icterus - ENT Exam Additional comments: ETT in place, trachea midline - Respiratory Exam Respiratory Exam: NORMAL BREATHING PATTERN (on vent). absent: Respiratory Distress - Cardiovascular Exam Cardiovascular Exam: Tachycardia - GI/Abdominal Exam GI & Abdominal Exam: Guarding (mild), Soft. absent: Distended, Firm, Rigid, Tenderness Additional comments: incision C/D/I, alirio in place - Neurological Exam Neurological Exam: Alert, Awake - Skin Skin Exam: Dry, Warm Assessment and Plan - Assessment and Plan (Free Text) Assessment: 77F POD#5 s/p ex lap small bowel resection for ischemic bowel Plan: -ICU management -Monitor I&O -pain control -Cardio on board, HR improving -Working towards vent weaning D/W Dr. Jamaal Salazar PGY4
--- NOTE | 2017-10-12 19:08 | CP.PCM.PN ---
Subjective - Date & Time of Evaluation Date of Evaluation: 10/12/17 Time of Evaluation: 07:00 - Subjective Subjective: dictated Objective - Vital Signs/Intake and Output Vital Signs (last 24 hours): Temp Pulse Resp BP Pulse Ox 99.5 F 98 H 18 126/59 L 96 10/12/17 16:00 10/12/17 19:01 10/12/17 19:01 10/12/17 19:01 10/12/17 19:01 Intake and Output: 10/12/17 10/13/17 18:59 06:59 Intake Total 1319.4 74.2 Output Total 2750 Balance -1430.6 74.2 - Medications Medications: Current Medications Acetaminophen (Tylenol 325mg Tab) 650 mg PO Q6 PRN PRN Reason: Fever >100.4 F Amlodipine Besylate (Norvasc) 10 mg PO DAILY [facility] Last Admin: 10/12/17 09:15 Dose: 10 mg Aspirin (Aspirin Chewable) 81 mg PO DAILY [facility] Last Admin: 10/12/17 09:14 Dose: 81 mg Furosemide (Lasix) 40 mg IVP Q12 TIM Metronidazole (Flagyl) 500 mg in 100 mls @ 100 mls/hr IVPB Q8 TIM Last Admin: 10/12/17 13:23 Dose: 100 mls/hr Heparin Sodium/Sodium Chloride (Heparin 05456 Units/250ml 1/2 Normal Saline) 25 ,000 units in 250 mls @ 14.664 mls/hr IV .Q17H3M PRN; Protocol; 18 UNITS/KG/HR PRN Reason: ADJUST RATE PER PROTOCOL Last Admin: 10/12/17 11:13 Dose: 15 units/kg/hr, 12.22 mls/hr Meropenem 1 gm/ Sodium (Chloride) 100 mls @ 100 mls/hr IVPB Q8H [facility]PL[facility] Last Admin: 10/12/17 13:24 Dose: 100 mls/hr Diltiazem HCl 125 mg/ Dextrose 125 mls @ 5 mls/hr IV .Q24H TIM; 5 MG/HR PRN Reason: Protocol Last Admin: 10/12/17 17:43 Dose: 10 mg/hr, 10 mls/hr Propofol (Diprivan) 1,000 mg in 100 mls @ 2.73 mls/hr IV .Q24H PRN; Protocol; 5 MCG/KG/MIN PRN Reason: TITRATE PER MD ORDER Last Admin: 10/12/17 10:54 Dose: 10 mcg/kg/min, 5.459 mls/hr Potassium Chloride 15 meq/Potassium Phosphate 15 mmole/Magnesium Sulfate 10 meq/ Calcium Gluconate 4.5 meq/Insulin Human Regular 10 unit/Heparin Sodium (Porcine ) 1, 000 units/ Chromium/Copper/Manganese/Zinc 1 ml/Multivitamins/Vitamin C 10 ml/Amino Acids 1,036.7404 mls @ 42 mls/hr IV .Q24H ONE Stop: 10/13/17 17:59 Last Admin: 10/12/17 17:06 Dose: 42 mls/hr Insulin Human Regular (Novolin R) 0 unit SC Q6H [facility]PL[facility] PRN Reason: Protocol Last Admin: 10/12/17 18:15 Dose: Not Given Levothyroxine Sodium (Synthroid) 50 mcg PO DAILY@0630 [facility] Last Admin: 10/12/17 06:05 Dose: 50 mcg Losartan Potassium (Cozaar) 100 mg PO DAILY [facility] Last Admin: 10/12/17 09:14 Dose: 100 mg Metoprolol Tartrate (Lopressor) 5 mg IVP Q6H [facility] Last Admin: 10/12/17 17:05 Dose: 5 mg Midazolam HCl (Versed Inj) 2 mg IVP Q4H PRN PRN Reason: Agitation Last Admin: 10/11/17 07:17 Dose: 2 mg Ondansetron HCl (Zofran Inj) 4 mg IVP Q6H PRN PRN Reason: Nausea/Vomiting Last Admin: 10/10/17 21:10 Dose: 4 mg Pantoprazole Sodium (Protonix Inj) 40 mg IVP DAILY [facility] Last Admin: 10/12/17 11:16 Dose: 40 mg Polyethylene Glycol (Miralax) 17 gm PO BID PRN PRN Reason: Constipation Last Admin: 10/07/17 10:14 Dose: 17 gm Rosuvastatin Calcium (Crestor) 5 mg NG HS [facility]PL[facility] Last Admin: 10/11/17 22:00 Dose: 5 mg Saccharomyces Boulardii (Florastor) 250 mg NG BID [facility]PL[facility] Last Admin: 10/12/17 17:05 Dose: 250 mg Vitamin A (Vitamin A & D Oint Ud Foilpak) 0.5 ea TOP Q4 [facility]PL[facility] Last Admin: 10/12/17 17:06 Dose: 0.5 ea - Labs Labs: 10/12/17 06:22 10/12/17 06:22 PT 12.2 SECONDS (9.7-12.2) 10/04/17 18:30 INR 1.1 10/04/17 18:30 APTT 74 SECONDS (21-34) H D 10/12/17 06:22
[2017-10-13] MEDS: (Novolin R) Insulin Human Regular 100 units/ml vial SC SCH ×4 (00:25→19:34)
[2017-10-13] MEDS: Vitamins A & D Oint UD Foilpak TOP SCH ×6 (00:26→22:25)
[2017-10-13] MEDS: Propofol 10 mg/ml 1,000 MG/100 ML VIAL IV PRN (00:29)
--- NOTE | 2017-10-13 00:57 | PN ---
DATE: SUBJECTIVE: Patient still remains intubated, has a line. She is on Cardizem drip to control her rate. She is getting few sips through her mouth. She says she is feeling better. Denies any abdominal pain at this time. OBJECTIVE: VITAL SIGNS: T-max is 98.9, heart rate is 110, respirations are 22, saturations 97. HEENT: Head is atraumatic. NECK: Supple. She still has triple lumen in the left neck. LUNGS: Clear. HEART: S1 and S2 is tachycardic. ABDOMEN: Remains postop with a dressing. EXTREMITIES: Venodyne boots on. LABORATORY DATA: Noted. ASSESSMENT AND PLAN: She is on meropenem and Flagyl. She was having diarrhea and I also sent a stool for C. diff. It could be the liquid diet that she is carrying, but he nurse told me it was only very little. She is having diarrhea, it could be related to her ischemic bowel. Her white count has increased to 16.8, hemoglobin 11.8, hematocrit 34.8, platelet count is 325. We will follow stool studies. Her sodium still remains high at 153. She has mesenteric ischemia, status post surgery; respiratory failure. C. diff came out negative; so we have to monitor if this is due to ischemic bowel. We will repeat the labs again tomorrow to see, but will continue meropenem as well as Flagyl at this time. Reji Lawson MD
[2017-10-13 05:24] LABS: ARTERIAL BLOOD GAS HCO3 28.3 mmol/L (21-28); ARTERIAL BLOOD GAS HEMOGLOBIN 12.2 g/dL (11.7-17.4); ARTERIAL BLOOD GAS O2 SAT 97.7 % (95-98); ARTERIAL BLOOD GAS PCO2 32 mm/Hg (35-45); ARTERIAL BLOOD GAS PH 7.53 (7.35-7.45); ARTERIAL BLOOD GAS PO2 94 mm/Hg (80-100); ARTERIAL BLOOD GAS TCO2 27.7 mmol/L (22-28)
[2017-10-13] MEDS: metroNIDAZOLE IV 500 mg/100 ml 500 MG/100 ML BAG IVPB SCH ×3 (05:41→21:27)
[2017-10-13] MEDS: Meropenem 1 GM in Sodium Chloride 0.9% 100 ML IVPB SCH ×3 (05:46→21:28)
[2017-10-13] MEDS: Metoprolol 1 mg/ml Inj IVP SCH ×4 (05:46→22:24)
[2017-10-13] MEDS: Levothyroxine 50 MCG TAB PO SCH (05:55)
[2017-10-13 06:42] LABS: INR 1.4; PROTHROMBIN TIME 15.4 SECONDS (9.7-12.2)
[2017-10-13 06:43] LABS: BASO % 0.3 % (0.0-2.0); EOS # 0.4 K/uL (0.0-0.7); EOS % 2.9 % (0.0-4.0); HEMOGLOBIN 12.5 g/dL (11.0-16.0); LYMPH # 1.8 K/uL (1.0-4.3); LYMPH % 12.5 % (20.0-40.0); MEAN CELL VOLUME 87.4 fL (81.0-99.0); MEAN CORPUSCULAR HEMOGLOBIN 29.6 pg (27.0-31.0); MEAN CORPUSCULAR HGB CONC 33.9 g/dL (33.0-37.0); MEAN PLATELET VOLUME 9.2 fL (7.2-11.7); MONO # 1.6 K/uL (0.0-0.8); MONO % 11.3 % (0.0-10.0); NEUT # 10.5 K/uL (1.8-7.0); RBC 4.22 Mil/uL (3.80-5.20); RED CELL DISTRIBUTION WIDTH 15.6 % (11.5-14.5); WHITE BLOOD COUNT 14.3 K/uL (4.8-10.8)
[2017-10-13 06:53] LABS: ALBUMIN 2.6 g/dL (3.5-5.0); ALT/SGPT 21 U/L (9-52); AST/SGOT 13 U/L (14-36); BLOOD UREA NITROGEN 28 mg/dL (7-17); CALCIUM 8.2 mg/dl (8.6-10.4); GFR AFRICAN-AMERICAN > 60; GFR NON-AFRICAN AMERICAN > 60; MAGNESIUM 1.7 mg/dL (1.6-2.3)
--- NOTE | 2017-10-13 09:03 | RAD ---
Chest x-ray single frontal view History: Follow-up. Comparison: 10/12/2017 Findings: Lines and tubes in stable position. Right-sided pacemaker. Status post median sternotomy and CABG. Cardiomegaly. Calcification at the aortic knob. Moderate venous congestion. Right hilar prominence. Left basilar airspace opacity with associated small left pleural effusion. Degenerative changes in the spine and shoulders. Impression: Lines and tubes in stable position. Right-sided pacemaker. Status post median sternotomy and CABG. Cardiomegaly. Calcification at the aortic knob. Moderate venous congestion. Right hilar prominence. Left basilar airspace opacity with associated small left pleural effusion.
[2017-10-13] MEDS: Saccharomyces Boulardi 250 mg Cap NG SCH ×2 (09:44→17:21)
[2017-10-13] MEDS: Heparin25000 units/250ml 1/2NS 25,000 UNITS/250 ML BAG IV PRN (10:06)
[2017-10-13] MEDS: Potassium Chloride 20 mEq/15 ml LIQ UD PO SCH ×3 (10:47→22:24)
[2017-10-13] MEDS ORDERED: Potassium Phosphate 15 MMOLE in Dextrose 5% In Water 250 ML IV SCH (11:30)
--- NOTE | 2017-10-13 11:50 | CP.PCM.PN ---
Subjective - Date & Time of Evaluation Date of Evaluation: 10/13/17 Time of Evaluation: 07:50 - Subjective Subjective: General surgery progress note for Dr. Marcin Mayers, PGY-1 Pt S & E at bedside this AM. Pt intubated, arousable to tactile stimuli. HR improved. on mechanical vent, PRVC FiO2 60%, PEEP 5, RR 12, TV 500. No acute events overnight as per nursing. HR improved, still on Cardizem drip. Objective - Vital Signs/Intake and Output Vital Signs (last 24 hours): Temp Pulse Resp BP Pulse Ox 98.6 F 106 H 15 104/57 L 96 10/13/17 08:00 10/13/17 11:01 10/13/17 11:01 10/13/17 11:01 10/13/17 10:00 Intake and Output: 10/13/17 10/13/17 06:59 18:59 Intake Total 1159.9 720.0 Output Total 1200 800 Balance -40.1 -80.0 - Medications Medications: Current Medications Acetaminophen (Tylenol 325mg Tab) 650 mg PO Q6 PRN PRN Reason: Fever >100.4 F Amlodipine Besylate (Norvasc) 10 mg PO DAILY [facility] Last Admin: 10/13/17 09:43 Dose: 10 mg Aspirin (Aspirin Chewable) 81 mg PO DAILY [facility] Last Admin: 10/13/17 09:43 Dose: 81 mg Diltiazem HCl (Cardizem) 40 mg PO Q6 TIM Furosemide (Lasix) 40 mg IVP Q12 TIM Last Admin: 10/13/17 09:44 Dose: 40 mg Metronidazole (Flagyl) 500 mg in 100 mls @ 100 mls/hr IVPB Q8 TIM Last Admin: 10/13/17 05:41 Dose: 100 mls/hr Meropenem 1 gm/ Sodium (Chloride) 100 mls @ 100 mls/hr IVPB Q8H [facility] Last Admin: 10/13/17 05:46 Dose: 100 mls/hr Diltiazem HCl 125 mg/ Dextrose 125 mls @ 5 mls/hr IV .Q24H TIM; 5 MG/HR PRN Reason: Protocol Last Admin: 10/13/17 09:48 Dose: 10 mg/hr, 10 mls/hr Potassium Chloride 15 meq/Potassium Phosphate 15 mmole/Magnesium Sulfate 10 meq/ Calcium Gluconate 4.5 meq/Insulin Human Regular 10 unit/Heparin Sodium (Porcine ) 1, 000 units/ Chromium/Copper/Manganese/Zinc 1 ml/Multivitamins/Vitamin C 10 ml/Amino Acids 1,036.7404 mls @ 42 mls/hr IV .Q24H ONE Stop: 10/13/17 17:59 Last Admin: 10/12/17 17:06 Dose: 42 mls/hr Potassium Chloride (Potassium Chloride 20 Meq/100 Ml) 20 meq in 100 mls @ 50 mls/hr IVPB Q2H [facility] Stop: 10/13/17 13:14 Last Admin: 10/13/17 09:44 Dose: 50 mls/hr Potassium Phosphate 15 mmole/ (Dextrose) 255 mls @ 50 mls/hr IV .Q5H6M [facility] Stop: 10/13/17 16:29 Insulin Human Regular (Novolin R) 0 unit SC Q6H [facility] PRN Reason: Protocol Last Admin: 10/13/17 05:52 Dose: 3 unit Levothyroxine Sodium (Synthroid) 50 mcg PO DAILY@0630 [facility] Last Admin: 10/13/17 05:55 Dose: 50 mcg Losartan Potassium (Cozaar) 100 mg PO DAILY [facility] Last Admin: 10/13/17 09:43 Dose: 100 mg Metoprolol Tartrate (Lopressor) 5 mg IVP Q6H [facility] Last Admin: 10/13/17 05:46 Dose: 5 mg Midazolam HCl (Versed Inj) 2 mg IVP Q4H PRN PRN Reason: Agitation Last Admin: 10/11/17 07:17 Dose: 2 mg Ondansetron HCl (Zofran Inj) 4 mg IVP Q6H PRN PRN Reason: Nausea/Vomiting Last Admin: 10/10/17 21:10 Dose: 4 mg Pantoprazole Sodium (Protonix Inj) 40 mg IVP DAILY [facility] Last Admin: 10/13/17 09:44 Dose: 40 mg Polyethylene Glycol (Miralax) 17 gm PO BID PRN PRN Reason: Constipation Last Admin: 10/07/17 10:14 Dose: 17 gm Potassium Chloride (Potassium Chloride Oral Soln) 40 meq PO Q6H [facility] Stop: 10/13/17 22:46 Last Admin: 10/13/17 10:47 Dose: 40 meq Rosuvastatin Calcium (Crestor) 5 mg NG HS [facility] Last Admin: 10/12/17 21:21 Dose: 5 mg Saccharomyces Boulardii (Florastor) 250 mg NG BID [facility] Last Admin: 10/13/17 09:44 Dose: 250 mg Vitamin A (Vitamin A & D Oint Ud Foilpak) 0.5 ea TOP Q4 [facility] Last Admin: 10/13/17 09:45 Dose: 0.5 ea - Labs Labs: 10/13/17 06:29 10/13/17 06:28 PT 15.4 SECONDS (9.7-12.2) H 10/13/17 06:29 INR 1.4 10/13/17 06:29 APTT 71 SECONDS (21-34) H 10/13/17 06:29 - Constitutional Appears: Non-toxic, No Acute Distress - Head Exam Head Exam: ATRAUMATIC, NORMAL INSPECTION, NORMOCEPHALIC - Eye Exam Eye Exam: EOMI, Normal appearance - ENT Exam ENT Exam: Mucous Membranes Dry Additional comments: ET in place with NGT - Neck Exam Additional comments: LIJ in place - Cardiovascular Exam Cardiovascular Exam: Tachycardia, +S1, +S2 - GI/Abdominal Exam GI & Abdominal Exam: Soft. absent: Distended, Firm, Guarding, Tenderness Additional comments: alirio in place, no drainage noted - Extremities Exam Extremities Exam: Normal Inspection - Neurological Exam Additional comments: arousable to verbal or tactile stimuli - Psychiatric Exam Additional comments: cannot assess, ET in place, non verbal - Skin Skin Exam: Dry, Intact, Normal Color, Warm Assessment and Plan - Assessment and Plan (Free Text) Assessment: 77F POD#6 s/p ex lap small bowel resection for ischemic bowel Plan: Monitor I/O's Pain control Wean off vent when meets criteria Further mgmt as per primary and ICU teams DW attending Riana, PGY-1
--- NOTE | 2017-10-13 15:14 | CP.PCM.PN ---
Subjective - Date & Time of Evaluation Date of Evaluation: 10/13/17 Time of Evaluation: 14:30 - Subjective Subjective: Hospitalist Progress Note Patient was seen and examined at 2:30 PM 10/13/17 ICU Bed #18 Patient was extubated earlier today but still has NGT in place Exam: General: NG tube. She is awake and speaking and following commands. She would like the NGT removed HEENT: EOMI, PERRLA, NO cervical/submandibular/supraclavicular lymphadenopathy, NO thyromegaly Cardio: NS1 and NS2, NO M/R/G Resp: Course breath sounds throughout GI: BSx4, Soft, Central Obesity, Ventral Vertical Surgical Site with intact alirio and NO dehiscence and NO surrounding signs of cellulitis, some tenderness to palpation around the surgical site, however NO guarding/rebound tenderness Ext: NO edema, Pulses are strong and equal, NO discoloration, NO cyanosis, Capillary Refill is 2 seconds 1.Bowel Ischemia Abdominal Pain Abdominal Aorta Aneurysm * General surgery: Dr. Hinton on consult-->given LLQ abdominal pain * 10/08/17: Exploratory laparotomy, small bowel resection and primary anastomosis. EBL: 100; No Drains * Vascular surgery consult: Dr. Inman to follow for evaluation--> given aborminal aorta focal contained dissection * CT Dissection protocol (10/04/17): No evidence of thoracic aortic aneurysm, dissection, or rupture. No acute pulmonary embolism, Hepatic cysts, further findings available in the report including. Focal aneurysmal dilatation of infrarenal abdominal aorta measuring 2.6cm * Meropenem 1gram IVPB Q 8H (10/07/17) * Flagyl 500mg IVPB Q8H (active since 10/07/17) * CT abdomen/pelvis PO (10/07/17); Small bowel pneumatosis and portal venous gas concerning for bowel ischemia and necrosis. Multiple liver cysts. Nonobstructing calcifications in the left kidney. 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 Chest Pain New LBBB History of Coronary Artery Disease History of CABG History of Diabetes Lipid Disorder History of Hypertension History of Severe Aortic Stenosis History of Pacemaker; prior Sick Sinus syndrome * Cardiology (Dr. Childs) on board-->help appreciated * Cardiac cath (10/06/17) completed; discussed with Dr. Amadeo including RCA occlusion about 50%-->will need intervention in future * Echocardiogram (10/06/17): left ventricular function is normal, left ventricular ejection fraction is within the normal range. No regional wall motion abnormalities noted. Left atrium is mildly dilated. Mild to Moderate valvular aortic stenosis. Calculated aortic valve area is 1.1cm squared. Donna regurgitation is mild to moderate. * Prior cardiac workup: * Holter in 2017 showed NSR with max HR 121, SVT at HR of 146 and rare VPC, isolated APC. * Cardiac Cath in 2015 showed distal main coronary artery 70-80% concentric stenosis mid LAD 70-80% stenosis, RCA 20-30% non-obstructing stenosis, and large diagonal branch 85% proximal stenosis. with LVEF of 60%. Basal inferior wall akinetic. * revious ECHO showed borderline concentric LVH with grade I abnormal relaxation pattern, severe aortic stenosis, mild mitral regurg, and mild to moderate pulmonic regurg. LVEF was 60-65%. History of pacemaker placement per chart review. * CT Dissection protocol (10/04/17): No evidence of thoracic aortic aneurysm, dissection, or rupture. No acute pulmonary embolism, Hepatic cysts, further findings available in the report inclduing Focal aneurysmal dilatation of infrarenal abdominal aorta measuring 2.6cm * Elevated probnp: 1580 * CARLYN: 7 * T, cholestrol: 159, LDL: 91, HDL: 41 * [id number]: 7.1 * PaceMaker was interrogated by [employer] and it was deemed to be working properly * Patient had episodes of tachycardia 10/10/17 and 10/11/17 and was placed on Cardizem Drip 10 mg/hour and Lopressor 5 mg IV Q6H which were discontinued on Current Cardiac Meds: * Eliquis 5 mg PO 2x/day started 10/13/17 * Aspirin 81 mg NG 1x/day * Lasix 40 mg IV Q12H * Lopressor 5 mg IV Q6H * Diltiazem 30 mg PO Q6H * Crestor 5mg NG QHS * Norvasc 10 mg NG 1x/day * Cozaar 100 mg NG 1x/day * HOLDING Bystolic, Imdur 3. Sepsis Urinary Tract Infection Bandemia * Infectious Disease (Dr. Lawson) on the case-->help appreciated * Code sepsis 10/07/17 * Blood cultures (10/06/17): Negative at 5 days * Blood cultures (10/07/17): Negative at 5 days * Urine culture (10/07/17): Klebsiella Pneumoanie-->sensitive to Meropenem * Repeat Urine Culture (10/11/17): NO GROWTH * Stool Culture (10/07/17): Negative * Ova and Parasite (10/07/17): No ova and parasite * F/U repeat Stool Studies 10/12/17 that were ordered secondary to abundant diarrhea * Meropenem 1gram IVPB Q 8H (10/07/17- active) * Flagyl 500mg IVPB Q8H (active since 10/07/17) * Lactic acid: 2.4 (10/05/17)-->1.8 (10/06/17)-->4.1 (10/07/17)-->2.6 (10/08/17)--> 2.2 (10/08/17) * Has Renee in place 4. Melena * Occult blood 10/07/17 * Stool leukocytes: negative * C. diff 10/07/17: pending * Stool Culture (10/07/17): negative * Ova and Parasite (10/07/17): No ova and parasite 5. History of Chronic Constipation History of Liver cysts * GI (Dr. Boland) on case-->had signed off * Given patient is asymptomatic and appearance of lesions on imaging consistent with cystic disease, no further workup is indicated at this time. If patient becomes symptomatic, there is consideration for surgical intervention. * Maintain bowel regimen to prevent constipation * Suggest additional outpatient follow up and age appropriate screening colonoscopy if patient willing to undergo procedure. No further planned GI intervention * Hepatitis panel: negative * Please see #1 for further details. 6. History of Hypothyroidism * TSH: 2.92; Free T4: 1.49 * Synthroid 50mcg PO daily 7. History of Breast Cancer * Patient history of lumpectomy * She is being following serially * Patient is not on any chemotherapeutic agent 8. History of HTN * Restarted Norvasc, Cozaar, and Lopressor 10/12/17. Diltiazem and Lasix added . 9. History of HLD * Restarted Crestor 10/12/17 10. History of DM * Novolin R SC Q6H Sliding Scale 11. Prophylactic care * Anticoagulation was held given melena 10/07/17 but she was started on Heparin Drip 10/09/17 secondary to fear of showering emboli: monitor HgB/Hct which has been stable since the start of the Heparin Drip. The Heparin Drip was discontinued and Eliquis 5 mg PO Q12H was started 10/13/17. * Palliative Care consult given patient wanted to discuss code status initially during hospitalization * Florastor 250 mg NG 2x/day * Zofran 4 mg IV Q6H PRN N/V * Protonix 40 mg IV 1x/day Plan is for Swallow Evaluation and if she passes then remove the NGT. Bertin Barbosa D.O. Objective - Vital Signs/Intake and Output Vital Signs (last 24 hours): Temp Pulse Resp BP Pulse Ox 97.3 F L 92 H 11 L 111/73 94 L 10/13/17 12:00 10/13/17 13:01 10/13/17 13:01 10/13/17 13:01 10/13/17 13:01 Intake and Output: 10/13/17 10/13/17 06:59 18:59 Intake Total 1159.9 920.0 Output Total 1200 1175 Balance -40.1 -255.0 - Medications Medications: Current Medications Acetaminophen (Tylenol 325mg Tab) 650 mg PO Q6 PRN PRN Reason: Fever >100.4 F Amlodipine Besylate (Norvasc) 10 mg PO DAILY [facility] Last Admin: 10/13/17 09:43 Dose: 10 mg Apixaban (Eliquis) 5 mg PO BID [facility] Aspirin (Aspirin Chewable) 81 mg PO DAILY [facility] Last Admin: 10/13/17 09:43 Dose: 81 mg Diltiazem HCl (Cardizem) 30 mg PO Q6 [facility] Last Admin: 10/13/17 13:57 Dose: 30 mg Furosemide (Lasix) 40 mg IVP Q12 [facility] Last Admin: 10/13/17 09:44 Dose: 40 mg Metronidazole (Flagyl) 500 mg in 100 mls @ 100 mls/hr IVPB Q8 [facility] Last Admin: 10/13/17 13:02 Dose: 100 mls/hr Meropenem 1 gm/ Sodium (Chloride) 100 mls @ 100 mls/hr IVPB Q8H [facility] Last Admin: 10/13/17 13:01 Dose: 100 mls/hr Diltiazem HCl 125 mg/ Dextrose 125 mls @ 5 mls/hr IV .Q24H TIM; 5 MG/HR PRN Reason: Protocol Last Admin: 10/13/17 09:48 Dose: 10 mg/hr, 10 mls/hr Potassium Chloride 15 meq/Potassium Phosphate 15 mmole/Magnesium Sulfate 10 meq/ Calcium Gluconate 4.5 meq/Insulin Human Regular 10 unit/Heparin Sodium (Porcine ) 1, 000 units/ Chromium/Copper/Manganese/Zinc 1 ml/Multivitamins/Vitamin C 10 ml/Amino Acids 1,036.7404 mls @ 42 mls/hr IV .Q24H ONE Stop: 10/13/17 17:59 Last Admin: 10/12/17 17:06 Dose: 42 mls/hr Potassium Phosphate 15 mmole/ (Dextrose) 255 mls @ 50 mls/hr IV .Q5H6M [facility] Stop: 10/13/17 16:29 Last Admin: 10/13/17 12:05 Dose: 50 mls/hr Insulin Human Regular (Novolin R) 0 unit SC Q6H TIM PRN Reason: Protocol Last Admin: 10/13/17 12:06 Dose: 2 unit Levothyroxine Sodium (Synthroid) 50 mcg PO DAILY@0630 [facility] Last Admin: 10/13/17 05:55 Dose: 50 mcg Losartan Potassium (Cozaar) 100 mg PO DAILY [facility] Last Admin: 10/13/17 09:43 Dose: 100 mg Metoprolol Tartrate (Lopressor) 5 mg IVP Q6H [facility] Last Admin: 10/13/17 12:10 Dose: 5 mg Ondansetron HCl (Zofran Inj) 4 mg IVP Q6H PRN PRN Reason: Nausea/Vomiting Last Admin: 10/10/17 21:10 Dose: 4 mg Pantoprazole Sodium (Protonix Inj) 40 mg IVP DAILY [facility] Last Admin: 10/13/17 09:44 Dose: 40 mg Polyethylene Glycol (Miralax) 17 gm PO BID PRN PRN Reason: Constipation Last Admin: 10/07/17 10:14 Dose: 17 gm Potassium Chloride (Potassium Chloride Oral Soln) 40 meq PO Q6H [facility] Stop: 10/13/17 22:46 Last Admin: 10/13/17 10:47 Dose: 40 meq Rosuvastatin Calcium (Crestor) 5 mg NG HS TIM Last Admin: 10/12/17 21:21 Dose: 5 mg Saccharomyces Boulardii (Florastor) 250 mg NG BID TIM Last Admin: 10/13/17 09:44 Dose: 250 mg Vitamin A (Vitamin A & D Oint Ud Foilpak) 0.5 ea TOP Q4 [facility] Last Admin: 10/13/17 12:10 Dose: 0.5 ea - Labs Labs: 10/13/17 06:29 10/13/17 06:28 PT 15.4 SECONDS (9.7-12.2) H 10/13/17 06:29 INR 1.4 10/13/17 06:29 APTT 71 SECONDS (21-34) H 10/13/17 06:29
--- NOTE | 2017-10-13 16:36 | CP.PCM.PN ---
<Maynor Jon - Last Filed: 10/13/17 16:33> Subjective - Date & Time of Evaluation Date of Evaluation: 10/13/17 Time of Evaluation: 16:33 - Subjective Subjective: Cardiology progress note for Dr. Evangelista, covering for Dr. Childs - Maynor Jon , PGY - 1 Patient seen and examined at bedside. MOre alert and awake than before. Patient presently denies any chest pain, shortness of breath, or abdominal pain. I explained patient's atrial fibrillation to her and the need to be on blood thinners from this point forward. No complaints at this time. Objective - Vital Signs/Intake and Output Vital Signs (last 24 hours): Temp Pulse Resp BP Pulse Ox 98.1 F 105 H 16 127/63 94 L 10/13/17 16:00 10/13/17 16:01 10/13/17 16:01 10/13/17 16:01 10/13/17 16:01 Intake and Output: 10/13/17 10/13/17 06:59 18:59 Intake Total 1159.9 1270.0 Output Total 1200 1425 Balance -40.1 -155.0 - Medications Medications: Current Medications Acetaminophen (Tylenol 325mg Tab) 650 mg PO Q6 PRN PRN Reason: Fever >100.4 F Amlodipine Besylate (Norvasc) 10 mg PO DAILY [facility] Last Admin: 10/13/17 09:43 Dose: 10 mg Apixaban (Eliquis) 5 mg PO BID [facility] Aspirin (Aspirin Chewable) 81 mg PO DAILY [facility] Last Admin: 10/13/17 09:43 Dose: 81 mg Diltiazem HCl (Cardizem) 30 mg PO Q6 [facility] Last Admin: 10/13/17 13:57 Dose: 30 mg Furosemide (Lasix) 40 mg IVP Q12 [facility] Last Admin: 10/13/17 09:44 Dose: 40 mg Metronidazole (Flagyl) 500 mg in 100 mls @ 100 mls/hr IVPB Q8 [facility] Last Admin: 10/13/17 13:02 Dose: 100 mls/hr Meropenem 1 gm/ Sodium (Chloride) 100 mls @ 100 mls/hr IVPB Q8H [facility] Last Admin: 10/13/17 13:01 Dose: 100 mls/hr Diltiazem HCl 125 mg/ Dextrose 125 mls @ 5 mls/hr IV .Q24H TIM; 5 MG/HR PRN Reason: Protocol Last Admin: 10/13/17 09:48 Dose: 10 mg/hr, 10 mls/hr Potassium Chloride 15 meq/Potassium Phosphate 15 mmole/Magnesium Sulfate 10 meq/ Calcium Gluconate 4.5 meq/Insulin Human Regular 10 unit/Heparin Sodium (Porcine ) 1, 000 units/ Chromium/Copper/Manganese/Zinc 1 ml/Multivitamins/Vitamin C 10 ml/Amino Acids 1,036.7404 mls @ 42 mls/hr IV .Q24H ONE Stop: 10/13/17 17:59 Last Admin: 10/12/17 17:06 Dose: 42 mls/hr Insulin Human Regular (Novolin R) 0 unit SC Q6H TIM PRN Reason: Protocol Last Admin: 10/13/17 12:06 Dose: 2 unit Levothyroxine Sodium (Synthroid) 50 mcg PO DAILY@0630 [facility] Last Admin: 10/13/17 05:55 Dose: 50 mcg Losartan Potassium (Cozaar) 100 mg PO DAILY [facility] Last Admin: 10/13/17 09:43 Dose: 100 mg Metoprolol Tartrate (Lopressor) 5 mg IVP Q6H [facility] Last Admin: 10/13/17 12:10 Dose: 5 mg Ondansetron HCl (Zofran Inj) 4 mg IVP Q6H PRN PRN Reason: Nausea/Vomiting Last Admin: 10/10/17 21:10 Dose: 4 mg Pantoprazole Sodium (Protonix Inj) 40 mg IVP DAILY [facility] Last Admin: 10/13/17 09:44 Dose: 40 mg Polyethylene Glycol (Miralax) 17 gm PO BID PRN PRN Reason: Constipation Last Admin: 10/07/17 10:14 Dose: 17 gm Potassium Chloride (Potassium Chloride Oral Soln) 40 meq PO Q6H [facility] Stop: 10/13/17 22:46 Last Admin: 10/13/17 15:50 Dose: 40 meq Rosuvastatin Calcium (Crestor) 5 mg NG HS [facility] Last Admin: 10/12/17 21:21 Dose: 5 mg Saccharomyces Boulardii (Florastor) 250 mg NG BID [facility] Last Admin: 10/13/17 09:44 Dose: 250 mg Vitamin A (Vitamin A & D Oint Ud Foilpak) 0.5 ea TOP Q4 TIM Last Admin: 10/13/17 12:10 Dose: 0.5 ea - Labs Labs: 10/13/17 06:29 10/13/17 06:28 PT 15.4 SECONDS (9.7-12.2) H 10/13/17 06:29 INR 1.4 10/13/17 06:29 APTT 71 SECONDS (21-34) H 10/13/17 06:29 - Additional Findings Additional findings: Physical Exam: Vital Signs as below Const'l: +Patient is no longer intubated, is awake alert & oriented x 4, no acute distress, pleasant, obese woman Head/Neck: neck supple, no jvd, trachea midline, carotid midline, no cervical/head mass Eyes: pupils equally reactive to light and accommodation, nonicteric sclera, extraocular intact ENT: auditory acuity grossly intact, throat not congested, no nasal deformity Cardio: +Irregular rhythm; +scar on chest wall on left and right sides, regular rate, regular rhythm, no murmurs rubs gallops, no carotid bruit, normal s1, s2 Pulm: no accessory muscle use, equal normal breath sounds bilaterally, clear to ausculation bilaterally Abd: +obesity limiting exam, +slightly diminished bowel sounds in lower quadrants - resolved; soft non tender non-distended, no palpable masses Derm: no rashes, no ulcers, no lesions Extr: no edema, no cyanosis, no calf tenderness, no lesions, no varicosities Neuro: cranial nerves II-XII grossly intact, upper extremity and lower extremity 5/5 muscle strength bilaterally, no loss of sensation in upper extremities, lower extremities bilaterally and core Assessment and Plan - Assessment and Plan (Free Text) Assessment: Acute Assessments and Plan: 77 year old female with extensive cardiac history including CABG (2012), Cath with results as below (2014), and Abnormal stress test (2017) presents with 4 hour duration of chest pain. Troponins at .0230-->.0220-->.0260. EKG showed new LBBB with NSR at 90 bpm. Cath on this admission showed further RCA stenosis at about 50%. SUMMERS to LAD patent, but large diagonal and obtuse marginal no longer patent. Please see operative note for further information. New-Onset Atrial Fibrillation - Rate controlled - Pacemaker interrogated by community engagement representative from [employer]. Patient's Pacemaker is functioning appropriately, is trying to compensate for patient's irregular rhythm - Rate control: Metoprolol 5 q6 - Rhythm management: Diltiazem drip - Anticoagulation - Eliquis 5 BID started today Ischemic Bowel s/p 2 ft of small bowel resection - Heparin drip - Management per ICU and Surgery Prophylactic Measures - GI PPX: Protonix 40mg PO daily - DVT PPX: SCDs, Heparin Q12 Assessment and Plan History: Holter in 2017 showed NSR with max HR 121, SVT at HR of 146 and rare VPC, isolated APC. Cardiac Cath in 2015 showed distal main coronary artery 70-80% concentric stenosis mid LAD 70-80% stenosis, RCA 20-30% non-obstructing stenosis , and large diagonal branch 85% proximal stenosis. with LVEF of 60%. Basal inferior wall akinetic. Previous ECHO showed borderline concentric LVH with grade I abnormal relaxation pattern, severe aortic stenosis, mild mitral regurg , and mild to moderate pulmonic regurg. LVEF was 60-65%. History of pacemaker placement per chart review. Chest Pain, ACS ruled out, likely 2/2 New LBBB - EK, and LBBB not found on previous EKG's in system - Troponin X 1 at .0230, X2 at .0220; baseline is <.0120; CK-MB 1.87-1.85 - BNP elevated at 1580, past BNP's 799-955, with one at 1930 in 2012. - TSH, T4, Lipids - wnl - Mg/Phos:1.3/3.4 - CT Chest with IV: No aneurysm, no dissection, no PE - Follow up Troponins, EKGs - ECHO ordered, Nitro given, ASA 81 daily, Cozaar daily, Norvasc daily, Crestor daily New Left Bundle Branch Block - Patient already has a pacemaker placed (LBBB could be 2/2 to pacing) - Serial JOANNA panel, Serial EKGs, as above - Patient cardiac cath today, Results are: Briefly, LAD to SUMMERS is patent, but other graft is gone. There actually is no jump graft RCA is now 50% stenosed, moreso than last cath Please see operative note for further details CAD s/p CABG (2012) - Crestor, Cozaar, ASA daily HTN - Norvasc 5mg PO daily, Cozaar 100mg PO daily HLD - Crestor 5mg PO QHS (patient's home medication is lipitor) DM - HGA1C: 7.1 (09/2017), Held home medication: Metformin - Carb Consistent Diet, Accuchecks, RISS - Mod Hyperkalemia - Per primary team Elevated T. Bili - Per primary team Transaminitis - Per primary team Hypothyroidism - Per primary team History of Breast Cancer - Per primary team <Tommy Evangelista - Last Filed: 10/13/17 22:55> Objective - Vital Signs/Intake and Output Vital Signs (last 24 hours): Temp Pulse Resp BP Pulse Ox 97.7 F 111 H 26 H 131/56 L 94 L 10/13/17 20:00 10/13/17 21:01 10/13/17 21:01 10/13/17 21:01 10/13/17 21:01 Intake and Output: 10/13/17 10/14/17 18:59 06:59 Intake Total 1270.0 0 Output Total 1475 0 Balance -205.0 0 - Medications Medications: Current Medications Acetaminophen (Tylenol 325mg Tab) 650 mg PO Q6 PRN PRN Reason: Fever >100.4 F Amlodipine Besylate (Norvasc) 10 mg PO DAILY [facility] Last Admin: 10/13/17 09:43 Dose: 10 mg Apixaban (Eliquis) 5 mg PO BID [facility] Last Admin: 10/13/17 17:21 Dose: 5 mg Aspirin (Aspirin Chewable) 81 mg PO DAILY [facility] Last Admin: 10/13/17 09:43 Dose: 81 mg Diltiazem HCl (Cardizem) 30 mg PO Q6 [facility] Last Admin: 10/13/17 19:34 Dose: 30 mg Metronidazole (Flagyl) 500 mg in 100 mls @ 100 mls/hr IVPB Q8 [facility] Last Admin: 10/13/17 21:27 Dose: 100 mls/hr Meropenem 1 gm/ Sodium (Chloride) 100 mls @ 100 mls/hr IVPB Q8H [facility] Last Admin: 10/13/17 21:28 Dose: 100 mls/hr Diltiazem HCl 125 mg/ Dextrose 125 mls @ 5 mls/hr IV .Q24H TIM; 5 MG/HR PRN Reason: Protocol Last Admin: 10/13/17 19:36 Dose: Not Given Insulin Human Regular (Novolin R) 0 unit SC Q6H TIM PRN Reason: Protocol Last Admin: 10/13/17 19:34 Dose: Not Given Levothyroxine Sodium (Synthroid) 50 mcg PO DAILY@0630 [facility] Last Admin: 10/13/17 05:55 Dose: 50 mcg Losartan Potassium (Cozaar) 100 mg PO DAILY [facility] Last Admin: 10/13/17 09:43 Dose: 100 mg Metoprolol Tartrate (Lopressor) 5 mg IVP Q6H [facility] Last Admin: 10/13/17 22:24 Dose: 5 mg Ondansetron HCl (Zofran Inj) 4 mg IVP Q6H PRN PRN Reason: Nausea/Vomiting Last Admin: 10/10/17 21:10 Dose: 4 mg Pantoprazole Sodium (Protonix Inj) 40 mg IVP DAILY [facility] Last Admin: 10/13/17 09:44 Dose: 40 mg Polyethylene Glycol (Miralax) 17 gm PO BID PRN PRN Reason: Constipation Last Admin: 10/07/17 10:14 Dose: 17 gm Rosuvastatin Calcium (Crestor) 5 mg NG HS [facility] Last Admin: 10/13/17 22:23 Dose: 5 mg Saccharomyces Boulardii (Florastor) 250 mg NG BID [facility] Last Admin: 10/13/17 17:21 Dose: 250 mg Vitamin A (Vitamin A & D Oint Ud Foilpak) 0.5 ea TOP Q4 [facility] Last Admin: 10/13/17 22:25 Dose: 0.5 ea - Labs Labs: 10/13/17 06:29 10/13/17 06:28 PT 15.4 SECONDS (9.7-12.2) H 10/13/17 06:29 INR 1.4 10/13/17 06:29 APTT 71 SECONDS (21-34) H 10/13/17 06:29
--- NOTE | 2017-10-13 17:14 | CP.CCUPN ---
CCU Subjective - Physician Review Subjective (Free Text): 10/13/17 17:08 Patient seen and examined at bedside. Patient currently on ventilator, tolerating CPAP. and extubated. IV cardizem and IV heparin infusing. Patient denies any chest pain. Critical Care Time Spent (in minutes): 35 CCU Objective - Vital Signs / Intake & Output Vital Signs (Last 4 hours): Vital Signs Temp Pulse Resp BP Pulse Ox 10/13/17 16:01 105 H 16 127/63 94 L 10/13/17 16:00 98.1 F 125 H 11 L 94 L 10/13/17 15:01 104 H 13 117/61 96 10/13/17 15:00 107 H 11 L 97 10/13/17 14:00 113 H 14 125/59 L 98 Intake and Output (Last 8hrs): Intake & Output 10/13/17 10/13/17 10/13/17 06:59 14:59 22:59 Intake Total 746.6 1170.0 100 Output Total 880 1275 150 Balance -133.4 -105.0 -50 Weight 189 lb 3 oz Intake: IV 225 250 Intake, IV Amount 521.6 672.0 100 Left Distal Port 44.0 161.0 100 Subclavian Left Medial Port 300 400 Subclavian Left Proximal Port 80 50 Subclavian Left Wrist 97.6 61.0 Tube Feeding 80 TPN/PPN 168 Output: Urine 880 1275 150 Urethral (Renee) 880 1275 150 - Physical Exam Head: Positive for: Atraumatic, Normocephalic Pupils: Positive for: PERRL Extroacular Muscles: Positive for: EOMI Mouth: Positive for: Moist Mucous Membranes Respiratory/Chest: Positive for: Clear to Auscultation Cardiovascular: Positive for: Regular Rate and Rhythm, Murmurs, Normal S1, S2 Abdomen: Positive for: Normal Bowel Sounds. Negative for: Tenderness, Distention, Peritoneal Signs Skin: Positive for: Warm Psychiatric: Positive for: Alert - Medications Active Medications: Active Medications Generic Name Dose Route Start Last Admin Trade Name Freq PRN Reason Stop Dose Admin Acetaminophen 650 mg 10/11/17 10:17 Tylenol 325mg Tab PO Q6 PRN Fever >100.4 F Amlodipine Besylate 10 mg 10/12/17 10:00 10/13/17 09:43 Norvasc PO 10 mg DAILY TIM Administration Apixaban 5 mg 10/13/17 18:00 Eliquis PO BID TIM Aspirin 81 mg 10/12/17 10:00 10/13/17 09:43 Aspirin Chewable PO 81 mg DAILY TIM Administration Diltiazem HCl 30 mg 10/13/17 12:00 10/13/17 13:57 Cardizem PO 30 mg Q6 TIM Administration Furosemide 40 mg 10/12/17 22:00 10/13/17 09:44 Lasix IVP 40 mg Q12 TIM Administration Metronidazole 500 mg in 100 mls @ 100 mls/hr 10/07/17 22:00 10/13/17 13:02 Flagyl IVPB 100 mls/hr Q8 TIM Administration Meropenem 1 gm/ Sodium 100 mls @ 100 mls/hr 10/10/17 14:00 10/13/17 13:01 Chloride IVPB 100 mls/hr Q8H TIM Administration Diltiazem HCl 125 mg/ Dextrose 125 mls @ 5 mls/hr 10/10/17 16:45 10/13/17 09: 48 IV 10 mg/hr .Q24H TIM 10 mls/hr Protocol Administration 5 MG/HR Potassium Chloride 15 meq/ 1,036.7404 mls @ 42 mls/hr 10/12/17 18:00 17:06 Potassium Phosphate 15 mmole/ IV 10/13/17 17:59 42 mls/hr Magnesium Sulfate 10 meq/ .Q24H ONE Administration Calcium Gluconate 4.5 meq/ Insulin Human Regular 10 unit/ Heparin Sodium (Porcine) 1, 000 units/ Chromium/Copper/ Manganese/Zinc 1 ml/ Multivitamins/Vitamin C 10 ml/ Amino Acids Insulin Human Regular 0 unit 10/08/17 06:00 10/13/17 12:06 Novolin R SC 2 unit Q6H TIM Administration Protocol Levothyroxine Sodium 50 mcg 10/12/17 06:30 10/13/17 05:55 Synthroid PO 50 mcg DAILY@0630 TIM Administration Losartan Potassium 100 mg 10/12/17 10:00 10/13/17 09:43 Cozaar PO 100 mg DAILY TIM Administration Metoprolol Tartrate 5 mg 10/10/17 17:00 10/13/17 12:10 Lopressor IVP 5 mg Q6H TIM Administration Ondansetron HCl 4 mg 10/07/17 19:28 10/10/17 21:10 Zofran Inj IVP 4 mg Q6H PRN Administration Nausea/Vomiting Pantoprazole Sodium 40 mg 10/08/17 10:00 10/13/17 09:44 Protonix Inj IVP 40 mg DAILY TIM Administration Polyethylene Glycol 17 gm 10/06/17 15:08 10/07/17 10:14 Miralax PO 17 gm BID PRN Administration Constipation Potassium Chloride 40 meq 10/13/17 10:45 10/13/17 15:50 Potassium Chloride Oral Soln PO 10/13/17 22:46 40 meq Q6H TIM Administration Rosuvastatin Calcium 5 mg 10/11/17 22:00 10/12/17 21:21 Crestor NG 5 mg HS TIM Administration Saccharomyces Boulardii 250 mg 10/10/17 11:15 10/13/17 09:44 Florastor NG 250 mg BID TIM Administration Vitamin A 0.5 ea 10/11/17 20:00 10/13/17 12:10 Vitamin A & D Oint Ud Foilpak TOP 0.5 ea Q4 TIM Administration - Patient Studies Lab Studies: Microbiology Studies 10/07/17 21:36 Blood Culture - Final Blood-Venous NO GROWTH AFTER 5 DAYS Gram Stain - Final TEST NOT PERFORMED Lab Studies 10/13/17 10/13/17 10/13/17 Range/Units 11:55 06:29 06:29 WBC 14.3 H (4.8-10.8) K/uL RBC 4.22 (3.80-5.20) Mil/uL Hgb 12.5 (11.0-16.0) g/dL Hct 36.9 (34.0-47.0) % MCV 87.4 (81.0-99.0) fL MCH 29.6 (27.0-31.0) pg MCHC 33.9 (33.0-37.0) g/dL RDW 15.6 H (11.5-14.5) % Plt Count 294 (130-400) K/uL MPV 9.2 (7.2-11.7) fL Neut % (Auto) 73.0 (50.0-75.0) % Lymph % (Auto) 12.5 L (20.0-40.0) % [place] % (Auto) 11.3 H (0.0-10.0) % Eos % (Auto) 2.9 (0.0-4.0) % Baso % (Auto) 0.3 (0.0-2.0) % Neut # 10.5 H (1.8-7.0) K/uL Lymph # 1.8 (1.0-4.3) K/uL [place] # 1.6 H (0.0-0.8) K/uL Eos # 0.4 (0.0-0.7) K/uL Baso # 0.0 (0.0-0.2) K/uL PT 15.4 H (9.7-12.2) SECONDS INR 1.4 APTT 71 H (21-34) SECONDS Puncture Site pCO2 (35-45) mm/Hg pO2 (80-100) mm/Hg HCO3 (21-28) mmol/L ABG pH (7.35-7.45) ABG Total CO2 (22-28) mmol/L ABG O2 Saturation (95-98) % ABG Base Excess (-2.0-3.0) mmol/L ABG Hemoglobin (11.7-17.4) g/dL ABG Carboxyhemoglobin (0.5-1.5) % POC ABG HHb (Measured) (0.0-5.0) % ABG Methemoglobin (0.0-3.0) % Dayron Test A-a O2 Difference mm/Hg Respiratory Index Hgb O2 Saturation (95.0-98.0) % Vent Mode Mechanical Rate FiO2 % Tidal Volume PEEP Sodium (132-148) mmol/L Potassium (3.6-5.2) mmol/L Chloride (98-107) mmol/L Carbon Dioxide (22-30) mmol/L Anion Gap (10-20) BUN (7-17) mg/dL Creatinine (0.7-1.2) mg/dL Est GFR ( Amer) Est GFR (Non-Af Amer) POC Glucose (mg/dL) 179 H (65-110) mg/dL Random Glucose (65-105) mg/dL Calcium (8.6-10.4) mg/dl Phosphorus (2.5-4.5) mg/dL Magnesium (1.6-2.3) mg/dL Total Bilirubin (0.2-1.3) mg/dL AST (14-36) U/L ALT (9-52) U/L Alkaline Phosphatase (38-126) U/L Total Protein (6.3-8.3) g/dL Albumin (3.5-5.0) g/dL Globulin (2.2-3.9) gm/dL Albumin/Globulin Ratio (1.0-2.1) C. difficile Ag & Toxin (NEGATIVE) 10/13/17 10/13/17 10/13/17 Range/Units 06:28 05:38 05:07 WBC (4.8-10.8) K/uL RBC (3.80-5.20) Mil/uL Hgb (11.0-16.0) g/dL Hct (34.0-47.0) % MCV (81.0-99.0) fL MCH (27.0-31.0) pg MCHC (33.0-37.0) g/dL RDW (11.5-14.5) % Plt Count (130-400) K/uL MPV (7.2-11.7) fL Neut % (Auto) (50.0-75.0) % Lymph % (Auto) (20.0-40.0) % [place] % (Auto) (0.0-10.0) % Eos % (Auto) (0.0-4.0) % Baso % (Auto) (0.0-2.0) % Neut # (1.8-7.0) K/uL Lymph # (1.0-4.3) K/uL [place] # (0.0-0.8) K/uL Eos # (0.0-0.7) K/uL Baso # (0.0-0.2) K/uL PT (9.7-12.2) SECONDS INR APTT (21-34) SECONDS Puncture Site Rb pCO2 32 L (35-45) mm/Hg pO2 94 (80-100) mm/Hg HCO3 28.3 H (21-28) mmol/L ABG pH 7.53 H (7.35-7.45) ABG Total CO2 27.7 (22-28) mmol/L ABG O2 Saturation 97.7 (95-98) % ABG Base Excess 4.3 H (-2.0-3.0) mmol/L ABG Hemoglobin 12.2 (11.7-17.4) g/dL ABG Carboxyhemoglobin 0.9 (0.5-1.5) % POC ABG HHb (Measured) 2.3 (0.0-5.0) % ABG Methemoglobin 0.7 (0.0-3.0) % Dayron Test Na A-a O2 Difference 294.0 mm/Hg Respiratory Index 3.1 Hgb O2 Saturation 96.1 (95.0-98.0) % Vent Mode Prvc Mechanical Rate 12 FiO2 60.0 % Tidal Volume 500 PEEP 5 Sodium 149 H (132-148) mmol/L Potassium 2.8 L (3.6-5.2) mmol/L Chloride 114 H (98-107) mmol/L Carbon Dioxide 24 (22-30) mmol/L Anion Gap 13 (10-20) BUN 28 H (7-17) mg/dL Creatinine 0.8 (0.7-1.2) mg/dL Est GFR ( Amer) > 60 Est GFR (Non-Af Amer) > 60 POC Glucose (mg/dL) 208 H (65-110) mg/dL Random Glucose 219 H (65-105) mg/dL Calcium 8.2 L (8.6-10.4) mg/dl Phosphorus 1.4 L (2.5-4.5) mg/dL Magnesium 1.7 (1.6-2.3) mg/dL Total Bilirubin 0.9 (0.2-1.3) mg/dL AST 13 L D (14-36) U/L ALT 21 (9-52) U/L Alkaline Phosphatase 93 (38-126) U/L Total Protein 5.3 L (6.3-8.3) g/dL Albumin 2.6 L (3.5-5.0) g/dL Globulin 2.6 (2.2-3.9) gm/dL Albumin/Globulin Ratio 1.0 (1.0-2.1) C. difficile Ag & Toxin (NEGATIVE) 10/13/17 10/12/17 10/12/17 Range/Units 00:19 Unknown 17:54 WBC (4.8-10.8) K/uL RBC (3.80-5.20) Mil/uL Hgb (11.0-16.0) g/dL Hct (34.0-47.0) % MCV (81.0-99.0) fL MCH (27.0-31.0) pg MCHC (33.0-37.0) g/dL RDW (11.5-14.5) % Plt Count (130-400) K/uL MPV (7.2-11.7) fL Neut % (Auto) (50.0-75.0) % Lymph % (Auto) (20.0-40.0) % [place] % (Auto) (0.0-10.0) % Eos % (Auto) (0.0-4.0) % Baso % (Auto) (0.0-2.0) % Neut # (1.8-7.0) K/uL Lymph # (1.0-4.3) K/uL [place] # (0.0-0.8) K/uL Eos # (0.0-0.7) K/uL Baso # (0.0-0.2) K/uL PT (9.7-12.2) SECONDS INR APTT (21-34) SECONDS Puncture Site pCO2 (35-45) mm/Hg pO2 (80-100) mm/Hg HCO3 (21-28) mmol/L ABG pH (7.35-7.45) ABG Total CO2 (22-28) mmol/L ABG O2 Saturation (95-98) % ABG Base Excess (-2.0-3.0) mmol/L ABG Hemoglobin (11.7-17.4) g/dL ABG Carboxyhemoglobin (0.5-1.5) % POC ABG HHb (Measured) (0.0-5.0) % ABG Methemoglobin (0.0-3.0) % Dayron Test A-a O2 Difference mm/Hg Respiratory Index Hgb O2 Saturation (95.0-98.0) % Vent Mode Mechanical Rate FiO2 % Tidal Volume PEEP Sodium (132-148) mmol/L Potassium (3.6-5.2) mmol/L Chloride (98-107) mmol/L Carbon Dioxide (22-30) mmol/L Anion Gap (10-20) BUN (7-17) mg/dL Creatinine (0.7-1.2) mg/dL Est GFR ( Amer) Est GFR (Non-Af Amer) POC Glucose (mg/dL) 182 H 150 H (65-110) mg/dL Random Glucose (65-105) mg/dL Calcium (8.6-10.4) mg/dl Phosphorus (2.5-4.5) mg/dL Magnesium (1.6-2.3) mg/dL Total Bilirubin (0.2-1.3) mg/dL AST (14-36) U/L ALT (9-52) U/L Alkaline Phosphatase (38-126) U/L Total Protein (6.3-8.3) g/dL Albumin (3.5-5.0) g/dL Globulin (2.2-3.9) gm/dL Albumin/Globulin Ratio (1.0-2.1) C. difficile Ag & Toxin Negative (NEGATIVE) Laboratory Results - last 24 hr 10/12/17 10/12/17 10/13/17 17:54 Unknown 00:19 WBC RBC Hgb Hct MCV MCH MCHC RDW Plt Count MPV Neut % (Auto) Lymph % (Auto) [place] % (Auto) Eos % (Auto) Baso % (Auto) Neut # Lymph # [place] # Eos # Baso # PT INR APTT Puncture Site pCO2 pO2 HCO3 ABG pH ABG Total CO2 ABG O2 Saturation ABG Base Excess ABG Hemoglobin ABG Carboxyhemoglobin POC ABG HHb (Measured) ABG Methemoglobin Dayron Test A-a O2 Difference Respiratory Index Hgb O2 Saturation Vent Mode Mechanical Rate FiO2 Tidal Volume PEEP Sodium Potassium Chloride Carbon Dioxide Anion Gap BUN Creatinine Est GFR ( Amer) Est GFR (Non-Af Amer) POC Glucose (mg/dL) 150 H 182 H Random Glucose Calcium Phosphorus Magnesium Total Bilirubin AST ALT Alkaline Phosphatase Total Protein Albumin Globulin Albumin/Globulin Ratio C. difficile Ag & Toxin Negative 10/13/17 10/13/17 10/13/17 05:07 05:38 06:28 WBC RBC Hgb Hct MCV MCH MCHC RDW Plt Count MPV Neut % (Auto) Lymph % (Auto) [place] % (Auto) Eos % (Auto) Baso % (Auto) Neut # Lymph # [place] # Eos # Baso # PT INR APTT Puncture Site Rb pCO2 32 L pO2 94 HCO3 28.3 H ABG pH 7.53 H ABG Total CO2 27.7 ABG O2 Saturation 97.7 ABG Base Excess 4.3 H ABG Hemoglobin 12.2 ABG Carboxyhemoglobin 0.9 POC ABG HHb (Measured) 2.3 ABG Methemoglobin 0.7 Dayron Test Na A-a O2 Difference 294.0 Respiratory Index 3.1 Hgb O2 Saturation 96.1 Vent Mode Prvc Mechanical Rate 12 FiO2 60.0 Tidal Volume 500 PEEP 5 Sodium 149 H Potassium 2.8 L Chloride 114 H Carbon Dioxide 24 Anion Gap 13 BUN 28 H Creatinine 0.8 Est GFR ( Amer) > 60 Est GFR (Non-Af Amer) > 60 POC Glucose (mg/dL) 208 H Random Glucose 219 H Calcium 8.2 L Phosphorus 1.4 L Magnesium 1.7 Total Bilirubin 0.9 AST 13 L D ALT 21 Alkaline Phosphatase 93 Total Protein 5.3 L Albumin 2.6 L Globulin 2.6 Albumin/Globulin Ratio 1.0 C. difficile Ag & Toxin 10/13/17 10/13/17 10/13/17 06:29 06:29 11:55 WBC 14.3 H RBC 4.22 Hgb 12.5 Hct 36.9 MCV 87.4 MCH 29.6 MCHC 33.9 RDW 15.6 H Plt Count 294 MPV 9.2 Neut % (Auto) 73.0 Lymph % (Auto) 12.5 L [place] % (Auto) 11.3 H Eos % (Auto) 2.9 Baso % (Auto) 0.3 Neut # 10.5 H Lymph # 1.8 [place] # 1.6 H Eos # 0.4 Baso # 0.0 PT 15.4 H INR 1.4 APTT 71 H Puncture Site pCO2 pO2 HCO3 ABG pH ABG Total CO2 ABG O2 Saturation ABG Base Excess ABG Hemoglobin ABG Carboxyhemoglobin POC ABG HHb (Measured) ABG Methemoglobin Dayron Test A-a O2 Difference Respiratory Index Hgb O2 Saturation Vent Mode Mechanical Rate FiO2 Tidal Volume PEEP Sodium Potassium Chloride Carbon Dioxide Anion Gap BUN Creatinine Est GFR ( Amer) Est GFR (Non-Af Amer) POC Glucose (mg/dL) 179 H Random Glucose Calcium Phosphorus Magnesium Total Bilirubin AST ALT Alkaline Phosphatase Total Protein Albumin Globulin Albumin/Globulin Ratio C. difficile Ag & Toxin Fingerstick Blood Sugar Results: 179 Critical Care Progress Note - Ventilator Checklist Daily Sedation Vacation: Yes Daily Assessment of Readiness to Wean: Yes Daily Spontaneous Breathing Trial: Yes PUD Prophalyxis: Yes DVT Prophylaxis: Yes Oral Care with Chlorhexidine Gluconate {CHG}: Yes - Nutrition Nutrition: Nutrition Category Date Time Status NPO Diet [DIET] Diets 10/07/17 Dinner Active Assessment/Plan (1) Respiratory failure with hypoxia Current Visit: Yes Status: Acute - Assessment and Plan (Free Text) Assessment: -Acute hypoxic respiratory failure: tolerating CPAP on 40%, will extubate -CAD/A-FIB/diastolic heart failure: continue asa, statin, AC with eliquis (d/c IV heparin), continue AV eunice amy (swithc from IV to oral loading) -Ng tube feeds: tolerating: speech adn swallow eval in AM -Sepsis: klebsiella pneumonia: de-escalate abx from braulio, continue to monitor -no signs of ischemia: lactic normal -continue dvt ppx: eliquis -pud ppx Patient tolerated CPAP, incentive spirometry -Speech and swallow in AM -OOB to chair -d/c gerry d/w ICU team - Date & Time Date: 10/13/17 Time: 13:00
--- NOTE | 2017-10-13 20:10 | CP.PCM.PN ---
Subjective - Date & Time of Evaluation Date of Evaluation: 10/13/17 Time of Evaluation: 04:00 - Subjective Subjective: dictated Objective - Vital Signs/Intake and Output Vital Signs (last 24 hours): Temp Pulse Resp BP Pulse Ox 98.1 F 105 H 16 105/78 78 L 10/13/17 16:00 10/13/17 19:01 10/13/17 19:01 10/13/17 19:01 10/13/17 19:01 Intake and Output: 10/13/17 10/14/17 18:59 06:59 Intake Total 1270.0 0 Output Total 1475 Balance -205.0 0 - Medications Medications: Current Medications Acetaminophen (Tylenol 325mg Tab) 650 mg PO Q6 PRN PRN Reason: Fever >100.4 F Amlodipine Besylate (Norvasc) 10 mg PO DAILY [facility] Last Admin: 10/13/17 09:43 Dose: 10 mg Apixaban (Eliquis) 5 mg PO BID [facility] Last Admin: 10/13/17 17:21 Dose: 5 mg Aspirin (Aspirin Chewable) 81 mg PO DAILY [facility] Last Admin: 10/13/17 09:43 Dose: 81 mg Diltiazem HCl (Cardizem) 30 mg PO Q6 [facility] Last Admin: 10/13/17 19:34 Dose: 30 mg Metronidazole (Flagyl) 500 mg in 100 mls @ 100 mls/hr IVPB Q8 [facility] Last Admin: 10/13/17 13:02 Dose: 100 mls/hr Meropenem 1 gm/ Sodium (Chloride) 100 mls @ 100 mls/hr IVPB Q8H [facility] Last Admin: 10/13/17 13:01 Dose: 100 mls/hr Diltiazem HCl 125 mg/ Dextrose 125 mls @ 5 mls/hr IV .Q24H TIM; 5 MG/HR PRN Reason: Protocol Last Admin: 10/13/17 19:36 Dose: Not Given Insulin Human Regular (Novolin R) 0 unit SC Q6H [facility] PRN Reason: Protocol Last Admin: 10/13/17 19:34 Dose: Not Given Levothyroxine Sodium (Synthroid) 50 mcg PO DAILY@0630 [facility] Last Admin: 10/13/17 05:55 Dose: 50 mcg Losartan Potassium (Cozaar) 100 mg PO DAILY [facility] Last Admin: 10/13/17 09:43 Dose: 100 mg Metoprolol Tartrate (Lopressor) 5 mg IVP Q6H [facility] Last Admin: 10/13/17 17:21 Dose: 5 mg Ondansetron HCl (Zofran Inj) 4 mg IVP Q6H PRN PRN Reason: Nausea/Vomiting Last Admin: 10/10/17 21:10 Dose: 4 mg Pantoprazole Sodium (Protonix Inj) 40 mg IVP DAILY [facility] Last Admin: 10/13/17 09:44 Dose: 40 mg Polyethylene Glycol (Miralax) 17 gm PO BID PRN PRN Reason: Constipation Last Admin: 10/07/17 10:14 Dose: 17 gm Potassium Chloride (Potassium Chloride Oral Soln) 40 meq PO Q6H TIM Stop: 10/13/17 22:46 Last Admin: 10/13/17 15:50 Dose: 40 meq Rosuvastatin Calcium (Crestor) 5 mg NG HS [facility] Last Admin: 10/12/17 21:21 Dose: 5 mg Saccharomyces Boulardii (Florastor) 250 mg NG BID [facility] Last Admin: 10/13/17 17:21 Dose: 250 mg Vitamin A (Vitamin A & D Oint Ud Foilpak) 0.5 ea TOP Q4 [facility] Last Admin: 10/13/17 17:22 Dose: 0.5 ea - Labs Labs: 10/13/17 06:29 10/13/17 06:28 PT 15.4 SECONDS (9.7-12.2) H 10/13/17 06:29 INR 1.4 10/13/17 06:29 APTT 71 SECONDS (21-34) H 10/13/17 06:29
[2017-10-13] MEDS ORDERED: Enoxaparin 60 mg Syringe SC SCH (22:00)
--- NOTE | 2017-10-13 23:50 | PN ---
DATE: INFECTIOUS DISEASE FOLLOWUP SUBJECTIVE: The patient was seen today. She has been extubated and she had nasal O2 and was being fed by the family member. She feels a lot better. She still has a triple lumen on the left side. PHYSICAL EXAMINATION: NECK: Supple. LUNGS: Coarse breath sounds, but clear. HEART: S1, S2. Has been tachy before and she has been on Cardizem. ABDOMEN: Soft. Dressing present. The surgical wound appears unremarkable. EXTREMITIES: Have no edema or clubbing. She has Venodyne boots present. LABORATORY DATA: Labs are noted. Labs show white count is 14.3, hemoglobin 12.5, hematocrit 36.9, platelet count is 294 today. No diarrhea is reported. C. diff is negative. Urine culture has become negative now. So we will discontinue isolation. Her PTT is 71. She has been on heparin before. Her potassium is 2.8, is being supplemented at this time. Glucose is 149. Actually on 10/07/2017, she underwent surgery, so it is the sixth day. At this time, patient is on meropenem and Flagyl. If she continues to improve, we will get off of antibiotics soon. Chest x-ray today shows cardiomegaly, calcification, moderate venous congestion, right hilar prominence, left basilar airspace opacity with associated small pleural effusion. So we will follow and if she keeps on improving clinically then we will see if we can get her off antibiotics in 1-2 days. Reji Lawson MD
[2017-10-14] MEDS: Vitamins A & D Oint UD Foilpak TOP SCH ×6 (00:35→20:05)
[2017-10-14] MEDS: metroNIDAZOLE IV 500 mg/100 ml 500 MG/100 ML BAG IVPB SCH ×3 (05:10→21:46)
[2017-10-14] MEDS: Meropenem 1 GM in Sodium Chloride 0.9% 100 ML IVPB SCH ×3 (05:11→21:45)
[2017-10-14] MEDS: Metoprolol 1 mg/ml Inj IVP SCH ×2 (05:12→10:23)
[2017-10-14] MEDS: (Novolin R) Insulin Human Regular 100 units/ml vial SC SCH ×4 (05:13→17:39)
[2017-10-14] MEDS: Levothyroxine 50 MCG TAB PO SCH (05:33)
[2017-10-14 06:35] LABS: BASO # 0.2 K/uL (0.0-0.2); BASO % 1.2 % (0.0-2.0); EOS # 0.4 K/uL (0.0-0.7); EOS % 2.9 % (0.0-4.0); HEMOGLOBIN 12.2 g/dL (11.0-16.0); LYMPH % 14.5 % (20.0-40.0); MEAN CELL VOLUME 87.3 fL (81.0-99.0); MEAN CORPUSCULAR HEMOGLOBIN 29.5 pg (27.0-31.0); MEAN CORPUSCULAR HGB CONC 33.9 g/dL (33.0-37.0); MEAN PLATELET VOLUME 9.7 fL (7.2-11.7); MONO # 1.2 K/uL (0.0-0.8); MONO % 8.7 % (0.0-10.0); NEUT # 9.8 K/uL (1.8-7.0); NEUT % 72.7 % (50.0-75.0); NRBC % 0.1 % (0.0-2.0); RBC 4.14 Mil/uL (3.80-5.20); RED CELL DISTRIBUTION WIDTH 15.3 % (11.5-14.5); WHITE BLOOD COUNT 13.4 K/uL (4.8-10.8)
[2017-10-14 06:57] LABS: ALBUMIN 2.6 g/dL (3.5-5.0); ALT/SGPT 17 U/L (9-52); AST/SGOT 19 U/L (14-36); BLOOD UREA NITROGEN 25 mg/dL (7-17); CALCIUM 8.2 mg/dl (8.6-10.4); GFR AFRICAN-AMERICAN > 60; GFR NON-AFRICAN AMERICAN > 60; MAGNESIUM 1.5 mg/dL (1.6-2.3)
[2017-10-14] MEDS: Magnesium Sulfate 1 gm in D5W 1 GM/100 ML BAG IVPB SCH ×2 (08:38→09:02)
[2017-10-14] MEDS ORDERED: Potassium Phosphate 15 MMOLE in Sodium Chloride 0.9% 250 ML IV ONE (09:00)
[2017-10-14] MEDS: Saccharomyces Boulardi 250 mg Cap NG SCH ×2 (09:11→17:24)
--- NOTE | 2017-10-14 14:27 | CP.CCUPN ---
CCU Subjective - Physician Review Subjective (Free Text): 10/13/17 17:08 Patient seen and examined at bedside. Patient currently on nasal canula, tolerated extubation. Patient feeling better and would like to eat food. 10/14/17 14:14 CCU Objective - Vital Signs / Intake & Output Vital Signs (Last 4 hours): Vital Signs Pulse Resp BP Pulse Ox 10/14/17 12:18 113 H 19 117/60 98 10/14/17 12:00 102 H 17 90 L 10/14/17 11:18 124 H 18 107/61 88 L 10/14/17 11:00 109 H 20 100 10/14/17 10:18 117 H 22 129/66 96 Intake and Output (Last 8hrs): Intake & Output 10/13/17 10/14/17 10/14/17 22:59 06:59 14:59 Intake Total 300 200 687 Output Total 200 750 300 Balance 100 -550 387 Weight 187 lb 13.341 oz Intake: IV 125 Intake, IV Amount 300 200 462 Left Distal Port Internal 200 200 200 Jugular Left Distal Port 100 Subclavian Left Medial Port Internal 252 Jugular Left Proximal Port 10 Internal Jugular Oral 0 0 Other 100 Output: Urine 200 700 300 Urethral (Garrett) 200 Urine, Voided 700 300 Stool 50 Other: # Voids Urethral (Garrett) 1 Urine, Voided 1 # Bowel Movements 1 1 - Physical Exam Head: Positive for: Atraumatic, Normocephalic Pupils: Positive for: PERRL Extroacular Muscles: Positive for: EOMI Conjunctiva: Positive for: Normal Mouth: Positive for: Moist Mucous Membranes Respiratory/Chest: Positive for: Clear to Auscultation, Good Air Exchange Cardiovascular: Positive for: Regular Rate and Rhythm, Murmurs, Normal S1, S2 Abdomen: Positive for: Normal Bowel Sounds. Negative for: Tenderness, Distention, Peritoneal Signs Skin: Positive for: Warm Psychiatric: Positive for: Alert - Medications Active Medications: Active Medications Generic Name Dose Route Start Last Admin Trade Name Freq PRN Reason Stop Dose Admin Acetaminophen 650 mg 10/11/17 10:17 Tylenol 325mg Tab PO Q6 PRN Fever >100.4 F Amlodipine Besylate 10 mg 10/12/17 10:00 10/14/17 09:11 Norvasc PO 10 mg DAILY TIM Administration Apixaban 5 mg 10/13/17 18:00 10/14/17 09:11 Eliquis PO 5 mg BID TIM Administration Aspirin 81 mg 10/12/17 10:00 10/14/17 09:13 Aspirin Chewable PO 81 mg DAILY TIM Administration Diltiazem HCl 60 mg 10/14/17 10:26 10/14/17 12:34 Cardizem PO 60 mg Q6 TIM Administration Metronidazole 500 mg in 100 mls @ 100 mls/hr 10/07/17 22:00 10/14/17 14:11 Flagyl IVPB 100 mls/hr Q8 TIM Administration Meropenem 1 gm/ Sodium 100 mls @ 100 mls/hr 10/10/17 14:00 10/14/17 14:08 Chloride IVPB 100 mls/hr Q8H TIM Administration Diltiazem HCl 125 mg/ Dextrose 125 mls @ 5 mls/hr 10/10/17 16:45 10/14/17 11: 34 IV 10 mg/hr .Q24H TIM 10 mls/hr Protocol Administration 5 MG/HR Insulin Human Regular 0 unit 10/08/17 06:00 10/14/17 14:07 Novolin R SC 2 unit Q6H TIM Administration Protocol Levothyroxine Sodium 50 mcg 10/12/17 06:30 10/14/17 05:33 Synthroid PO 50 mcg DAILY@0630 TIM Administration Losartan Potassium 100 mg 10/12/17 10:00 10/14/17 09:11 Cozaar PO 100 mg DAILY TIM Administration Ondansetron HCl 4 mg 10/07/17 19:28 10/10/17 21:10 Zofran Inj IVP 4 mg Q6H PRN Administration Nausea/Vomiting Pantoprazole Sodium 40 mg 10/08/17 10:00 10/14/17 09:11 Protonix Inj IVP 40 mg DAILY TIM Administration Polyethylene Glycol 17 gm 10/06/17 15:08 10/07/17 10:14 Miralax PO 17 gm BID PRN Administration Constipation Rosuvastatin Calcium 5 mg 10/11/17 22:00 10/13/17 22:23 Crestor NG 5 mg HS TIM Administration Saccharomyces Boulardii 250 mg 10/10/17 11:15 10/14/17 09:11 Florastor NG 250 mg BID TIM Administration Vitamin A 0.5 ea 10/11/17 20:00 10/14/17 12:34 Vitamin A & D Oint Ud Foilpak TOP 0.5 ea Q4 TIM Administration - Patient Studies Lab Studies: Lab Studies 10/14/17 10/14/17 10/14/17 Range/Units 06:28 06:24 05:26 WBC 13.4 H (4.8-10.8) K/uL RBC 4.14 (3.80-5.20) Mil/uL Hgb 12.2 (11.0-16.0) g/dL Hct 36.1 (34.0-47.0) % MCV 87.3 (81.0-99.0) fL MCH 29.5 (27.0-31.0) pg MCHC 33.9 (33.0-37.0) g/dL RDW 15.3 H (11.5-14.5) % Plt Count 305 (130-400) K/uL MPV 9.7 (7.2-11.7) fL Neut % (Auto) 72.7 (50.0-75.0) % Lymph % (Auto) 14.5 L (20.0-40.0) % [place] % (Auto) 8.7 (0.0-10.0) % Eos % (Auto) 2.9 (0.0-4.0) % Baso % (Auto) 1.2 (0.0-2.0) % Neut # 9.8 H (1.8-7.0) K/uL Lymph # 2.0 (1.0-4.3) K/uL [place] # 1.2 H (0.0-0.8) K/uL Eos # 0.4 (0.0-0.7) K/uL Baso # 0.2 (0.0-0.2) K/uL Sodium 147 (132-148) mmol/L Potassium 3.6 (3.6-5.2) mmol/L Chloride 113 H (98-107) mmol/L Carbon Dioxide 28 (22-30) mmol/L Anion Gap 10 (10-20) BUN 25 H (7-17) mg/dL Creatinine 0.7 (0.7-1.2) mg/dL Est GFR ( Amer) > 60 Est GFR (Non-Af Amer) > 60 POC Glucose (mg/dL) 107 (65-110) mg/dL Random Glucose 121 H (65-105) mg/dL Calcium 8.2 L (8.6-10.4) mg/dl Phosphorus 2.0 L (2.5-4.5) mg/dL Magnesium 1.5 L (1.6-2.3) mg/dL Total Bilirubin 0.7 (0.2-1.3) mg/dL AST 19 (14-36) U/L ALT 17 (9-52) U/L Alkaline Phosphatase 86 (38-126) U/L Total Protein 5.4 L (6.3-8.3) g/dL Albumin 2.6 L (3.5-5.0) g/dL Globulin 2.7 (2.2-3.9) gm/dL Albumin/Globulin Ratio 1.0 (1.0-2.1) 10/13/17 10/13/17 10/13/17 Range/Units 23:39 17:51 11:55 WBC (4.8-10.8) K/uL RBC (3.80-5.20) Mil/uL Hgb (11.0-16.0) g/dL Hct (34.0-47.0) % MCV (81.0-99.0) fL MCH (27.0-31.0) pg MCHC (33.0-37.0) g/dL RDW (11.5-14.5) % Plt Count (130-400) K/uL MPV (7.2-11.7) fL Neut % (Auto) (50.0-75.0) % Lymph % (Auto) (20.0-40.0) % [place] % (Auto) (0.0-10.0) % Eos % (Auto) (0.0-4.0) % Baso % (Auto) (0.0-2.0) % Neut # (1.8-7.0) K/uL Lymph # (1.0-4.3) K/uL [place] # (0.0-0.8) K/uL Eos # (0.0-0.7) K/uL Baso # (0.0-0.2) K/uL Sodium (132-148) mmol/L Potassium (3.6-5.2) mmol/L Chloride (98-107) mmol/L Carbon Dioxide (22-30) mmol/L Anion Gap (10-20) BUN (7-17) mg/dL Creatinine (0.7-1.2) mg/dL Est GFR ( Amer) Est GFR (Non-Af Amer) POC Glucose (mg/dL) 146 H 149 H 179 H (65-110) mg/dL Random Glucose (65-105) mg/dL Calcium (8.6-10.4) mg/dl Phosphorus (2.5-4.5) mg/dL Magnesium (1.6-2.3) mg/dL Total Bilirubin (0.2-1.3) mg/dL AST (14-36) U/L ALT (9-52) U/L Alkaline Phosphatase (38-126) U/L Total Protein (6.3-8.3) g/dL Albumin (3.5-5.0) g/dL Globulin (2.2-3.9) gm/dL Albumin/Globulin Ratio (1.0-2.1) Laboratory Results - last 24 hr 10/13/17 10/13/17 10/13/17 11:55 17:51 23:39 WBC RBC Hgb Hct MCV MCH MCHC RDW Plt Count MPV Neut % (Auto) Lymph % (Auto) [place] % (Auto) Eos % (Auto) Baso % (Auto) Neut # Lymph # [place] # Eos # Baso # Sodium Potassium Chloride Carbon Dioxide Anion Gap BUN Creatinine Est GFR ( Amer) Est GFR (Non-Af Amer) POC Glucose (mg/dL) 179 H 149 H 146 H Random Glucose Calcium Phosphorus Magnesium Total Bilirubin AST ALT Alkaline Phosphatase Total Protein Albumin Globulin Albumin/Globulin Ratio 10/14/17 10/14/17 10/14/17 05:26 06:24 06:28 WBC 13.4 H RBC 4.14 Hgb 12.2 Hct 36.1 MCV 87.3 MCH 29.5 MCHC 33.9 RDW 15.3 H Plt Count 305 MPV 9.7 Neut % (Auto) 72.7 Lymph % (Auto) 14.5 L [place] % (Auto) 8.7 Eos % (Auto) 2.9 Baso % (Auto) 1.2 Neut # 9.8 H Lymph # 2.0 Fill[place] # 1.2 H Eos # 0.4 Baso # 0.2 Sodium 147 Potassium 3.6 Chloride 113 H Carbon Dioxide 28 Anion Gap 10 BUN 25 H Creatinine 0.7 Est GFR ( Amer) > 60 Est GFR (Non-Af Amer) > 60 POC Glucose (mg/dL) 107 Random Glucose 121 H Calcium 8.2 L Phosphorus 2.0 L Magnesium 1.5 L Total Bilirubin 0.7 AST 19 ALT 17 Alkaline Phosphatase 86 Total Protein 5.4 L Albumin 2.6 L Globulin 2.7 Albumin/Globulin Ratio 1.0 Fingerstick Blood Sugar Results: 158 Critical Care Progress Note - Nutrition Nutrition: Nutrition Category Date Time Status Dysphagia/Modified Consistency Diet [DIET] Diets 10/14/17 Lunch Active Assessment/Plan (1) Respiratory failure with hypoxia Current Visit: Yes Status: Resolved - Assessment and Plan (Free Text) Assessment: -Acute hypoxic respiratory failure: resolved, currently off ventilator, tolerating NC -CAD/A-FIB/diastolic heart failure: continue asa, statin, AC with eliquis, continue AV eunice amy (switch from IV to oral loading), increase oral from 30 to 60 mg q6hrs -start oral diet -Sepsis: klebsiella: de-escalate abx from braulio, continue to monitor -continue dvt ppx: eliquis -pud ppx: protonix -OOB to chair -off garrett -Patient remains stable. d/w ICU team - Date & Time Date: 10/14/17 Time: 09:00
--- NOTE | 2017-10-14 18:38 | CP.PCM.PN ---
Subjective - Date & Time of Evaluation Date of Evaluation: 10/14/17 Time of Evaluation: 07:08 - Subjective Subjective: General surgery progress note for Dr. Hinton Patient seen and examined at bedside. No acute event overnight. Patient was extubated. Patient is feeling much better with tube is out. She is being started on liquids. Objective - Vital Signs/Intake and Output Vital Signs (last 24 hours): Temp Pulse Resp BP Pulse Ox 98.4 F 106 H 21 127/83 93 L 10/14/17 16:00 10/14/17 18:17 10/14/17 18:17 10/14/17 18:18 10/14/17 18:17 Intake and Output: 10/14/17 10/14/17 06:59 18:59 Intake Total 400 1472 Output Total 750 300 Balance -350 1172 - Medications Medications: Current Medications Acetaminophen (Tylenol 325mg Tab) 650 mg PO Q6 PRN PRN Reason: Fever >100.4 F Amlodipine Besylate (Norvasc) 10 mg PO DAILY [facility] Last Admin: 10/14/17 09:11 Dose: 10 mg Apixaban (Eliquis) 5 mg PO BID [facility] Last Admin: 10/14/17 17:24 Dose: 5 mg Aspirin (Aspirin Chewable) 81 mg PO DAILY [facility] Last Admin: 10/14/17 09:13 Dose: 81 mg Diltiazem HCl (Cardizem) 60 mg PO Q6 [facility] Last Admin: 10/14/17 17:24 Dose: 60 mg Metronidazole (Flagyl) 500 mg in 100 mls @ 100 mls/hr IVPB Q8 [facility] Last Admin: 10/14/17 14:11 Dose: 100 mls/hr Meropenem 1 gm/ Sodium (Chloride) 100 mls @ 100 mls/hr IVPB Q8H [facility] Last Admin: 10/14/17 14:08 Dose: 100 mls/hr Diltiazem HCl 125 mg/ Dextrose 125 mls @ 5 mls/hr IV .Q24H TIM; 5 MG/HR PRN Reason: Protocol Last Admin: 10/14/17 17:07 Dose: Not Given Insulin Human Regular (Novolin R) 0 unit SC Q6H TIM PRN Reason: Protocol Last Admin: 10/14/17 17:39 Dose: Not Given Levothyroxine Sodium (Synthroid) 50 mcg PO DAILY@0630 [facility] Last Admin: 10/14/17 05:33 Dose: 50 mcg Losartan Potassium (Cozaar) 100 mg PO DAILY [facility] Last Admin: 10/14/17 09:11 Dose: 100 mg Ondansetron HCl (Zofran Inj) 4 mg IVP Q6H PRN PRN Reason: Nausea/Vomiting Last Admin: 10/10/17 21:10 Dose: 4 mg Pantoprazole Sodium (Protonix Inj) 40 mg IVP DAILY [facility] Last Admin: 10/14/17 09:11 Dose: 40 mg Polyethylene Glycol (Miralax) 17 gm PO BID PRN PRN Reason: Constipation Last Admin: 10/07/17 10:14 Dose: 17 gm Rosuvastatin Calcium (Crestor) 5 mg NG HS [facility] Last Admin: 10/13/17 22:23 Dose: 5 mg Saccharomyces Boulardii (Florastor) 250 mg NG BID [facility] Last Admin: 10/14/17 17:24 Dose: 250 mg Vitamin A (Vitamin A & D Oint Ud Foilpak) 0.5 ea TOP Q4 [facility] Last Admin: 10/14/17 16:00 Dose: 0.5 ea - Labs Labs: 10/14/17 06:28 10/14/17 06:24 PT 15.4 SECONDS (9.7-12.2) H 10/13/17 06:29 INR 1.4 10/13/17 06:29 APTT 71 SECONDS (21-34) H 10/13/17 06:29 - Constitutional Appears: No Acute Distress - Head Exam Head Exam: ATRAUMATIC, NORMOCEPHALIC - Eye Exam Eye Exam: Normal appearance - ENT Exam ENT Exam: Mucous Membranes Moist - Respiratory Exam Respiratory Exam: NORMAL BREATHING PATTERN - Cardiovascular Exam Cardiovascular Exam: Tachycardia - GI/Abdominal Exam GI & Abdominal Exam: Soft. absent: Distended, Firm, Guarding, Tenderness, Rebound Additional comments: midline incision clean dry and intact - Back Exam Back Exam: absent: CVA tenderness (L), CVA tenderness (R) - Neurological Exam Neurological Exam: Alert, Awake, Oriented x3 - Psychiatric Exam Psychiatric exam: Normal Affect, Normal Mood - Skin Skin Exam: Dry, Intact, Normal Color, Warm Assessment and Plan - Assessment and Plan (Free Text) Plan: 77F POD#7 s/p ex lap small bowel resection for ischemic bowel Liquid diet Monitor I/O's Pain control Further mgmt as per primary and ICU teams Discussed with Jamaal Ramires PGY1
--- NOTE | 2017-10-14 19:00 | CP.PCM.PN ---
Subjective - Date & Time of Evaluation Date of Evaluation: 10/14/17 Time of Evaluation: 16:00 - Subjective Subjective: Hospitalist Progress Note Patient was seen and examined at 4:00 PM 10/14/17 ICU Bed #18 Patient was extubated 10/13/17. Exam: General: NG tube. She is awake and speaking and following commands. HEENT: EOMI, PERRLA, NO cervical/submandibular/supraclavicular lymphadenopathy, NO thyromegaly Cardio: NS1 and NS2, NO M/R/G Resp: Course breath sounds throughout GI: BSx4, Soft, Central Obesity, Ventral Vertical Surgical Site with intact alirio and NO dehiscence and NO surrounding signs of cellulitis, some tenderness to palpation around the surgical site, however NO guarding/rebound tenderness Ext: NO edema, Pulses are strong and equal, NO discoloration, NO cyanosis, Capillary Refill is 2 seconds 1.Bowel Ischemia Abdominal Pain Abdominal Aorta Aneurysm * General surgery: Dr. Hinton on consult-->given LLQ abdominal pain * 10/08/17: Exploratory laparotomy, small bowel resection and primary anastomosis. EBL: 100; No Drains * Vascular surgery consult: Dr. Inman to follow for evaluation--> given aborminal aorta focal contained dissection * CT Dissection protocol (10/04/17): No evidence of thoracic aortic aneurysm, dissection, or rupture. No acute pulmonary embolism, Hepatic cysts, further findings available in the report including. Focal aneurysmal dilatation of infrarenal abdominal aorta measuring 2.6cm * Meropenem 1gram IVPB Q 8H (10/07/17) * Flagyl 500mg IVPB Q8H (active since 10/07/17) * CT abdomen/pelvis PO (10/07/17); Small bowel pneumatosis and portal venous gas concerning for bowel ischemia and necrosis. Multiple liver cysts. Nonobstructing calcifications in the left kidney. 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 Chest Pain New LBBB History of Coronary Artery Disease History of CABG History of Diabetes Lipid Disorder History of Hypertension History of Severe Aortic Stenosis History of Pacemaker; prior Sick Sinus syndrome * Cardiology (Dr. Childs) on board-->help appreciated * Cardiac cath (10/06/17) completed; discussed with Dr. Childs including RCA occlusion about 50%-->will need intervention in future * Echocardiogram (10/06/17): left ventricular function is normal, left ventricular ejection fraction is within the normal range. No regional wall motion abnormalities noted. Left atrium is mildly dilated. Mild to Moderate valvular aortic stenosis. Calculated aortic valve area is 1.1cm squared. Donna regurgitation is mild to moderate. * Prior cardiac workup: * Holter in 2017 showed NSR with max HR 121, SVT at HR of 146 and rare VPC, isolated APC. * Cardiac Cath in 2015 showed distal main coronary artery 70-80% concentric stenosis mid LAD 70-80% stenosis, RCA 20-30% non-obstructing stenosis, and large diagonal branch 85% proximal stenosis. with LVEF of 60%. Basal inferior wall akinetic. * revious ECHO showed borderline concentric LVH with grade I abnormal relaxation pattern, severe aortic stenosis, mild mitral regurg, and mild to moderate pulmonic regurg. LVEF was 60-65%. History of pacemaker placement per chart review. * CT Dissection protocol (10/04/17): No evidence of thoracic aortic aneurysm, dissection, or rupture. No acute pulmonary embolism, Hepatic cysts, further findings available in the report inclduing Focal aneurysmal dilatation of infrarenal abdominal aorta measuring 2.6cm * Elevated probnp: 1580 * CARLYN: 7 * T, cholestrol: 159, LDL: 91, HDL: 41 * [id number]: 7.1 * Pace[employer]aker was interrogated by [employer] and it was deemed to be working properly * Patient had episodes of tachycardia 10/10/17 and 10/11/17 and was placed on Cardizem Drip 10 mg/hour and Lopressor 5 mg IV Q6H which were discontinued on Current Cardiac Meds: * Eliquis 5 mg PO 2x/day started 10/13/17 * Aspirin 81 mg NG 1x/day * Diltiazem 60 mg PO Q6H * Crestor 5mg NG QHS * Norvasc 10 mg NG 1x/day * Cozaar 100 mg NG 1x/day * HOLDING Bystolic, Imdur 3. Sepsis Urinary Tract Infection Bandemia * Infectious Disease (Dr. Lawson) on the case-->help appreciated * Code sepsis 10/07/17 * Blood cultures (10/06/17): Negative at 5 days * Blood cultures (10/07/17): Negative at 5 days * Urine culture (10/07/17): Klebsiella Pneumoanie-->sensitive to Meropenem * Repeat Urine Culture (10/11/17): NO GROWTH * Stool Culture (10/07/17): Negative * Ova and Parasite (10/07/17): No ova and parasite * F/U repeat Stool Studies 10/12/17 that were ordered secondary to abundant diarrhea * Meropenem 1gram IVPB Q 8H (10/07/17- active) * Flagyl 500mg IVPB Q8H (10/07/17- active) * Lactic acid: 2.4 (10/05/17)-->1.8 (10/06/17)-->4.1 (10/07/17)-->2.6 (10/08/17)--> 2.2 (10/08/17) * Has Renee in place 4. Melena * Occult blood 10/07/17 * Stool leukocytes: negative * C. diff 10/07/17: pending * Stool Culture (10/07/17): negative * Ova and Parasite (10/07/17): No ova and parasite 5. History of Chronic Constipation History of Liver cysts * GI (Dr. Boland) on case-->had signed off * Given patient is asymptomatic and appearance of lesions on imaging consistent with cystic disease, no further workup is indicated at this time. If patient becomes symptomatic, there is consideration for surgical intervention. * Maintain bowel regimen to prevent constipation * Suggest additional outpatient follow up and age appropriate screening colonoscopy if patient willing to undergo procedure. No further planned GI intervention * Hepatitis panel: negative * Please see #1 for further details. 6. History of Hypothyroidism * TSH: 2.92; Free T4: 1.49 * Synthroid 50mcg PO daily 7. History of Breast Cancer * Patient history of lumpectomy * She is being following serially * Patient is not on any chemotherapeutic agent 8. History of HTN * Norvasc, Losartan, and Cardizem as above 9. History of HLD * Restarted Crestor 10/12/17 10. History of DM * Novolin R SC Q6H Sliding Scale 11. Prophylactic care * Anticoagulation was held given melena 10/07/17 but she was started on Heparin Drip 10/09/17 secondary to fear of showering emboli: monitor HgB/Hct which has been stable since the start of the Heparin Drip. The Heparin Drip was discontinued and Eliquis 5 mg PO Q12H was started 10/13/17. * Palliative Care consult given patient wanted to discuss code status initially during hospitalization * Florastor 250 mg NG 2x/day * Zofran 4 mg IV Q6H PRN N/V * Protonix 40 mg IV 1x/day * Remeron 15 mg PO HS for insomnia * NGT removed 10/14/17 and patient underwent Swallow Evaluation leading to placing her on Puree Diet Bertin Barbosa D.O. Objective - Vital Signs/Intake and Output Vital Signs (last 24 hours): Temp Pulse Resp BP Pulse Ox 98.4 F 106 H 21 127/83 93 L 10/14/17 16:00 10/14/17 18:17 10/14/17 18:17 10/14/17 18:18 10/14/17 18:17 Intake and Output: 10/14/17 10/14/17 06:59 18:59 Intake Total 400 1472 Output Total 750 300 Balance -350 1172 - Medications Medications: Current Medications Acetaminophen (Tylenol 325mg Tab) 650 mg PO Q6 PRN PRN Reason: Fever >100.4 F Amlodipine Besylate (Norvasc) 10 mg PO DAILY [facility] Last Admin: 10/14/17 09:11 Dose: 10 mg Apixaban (Eliquis) 5 mg PO BID [facility] Last Admin: 10/14/17 17:24 Dose: 5 mg Aspirin (Aspirin Chewable) 81 mg PO DAILY [facility] Last Admin: 10/14/17 09:13 Dose: 81 mg Diltiazem HCl (Cardizem) 60 mg PO Q6 [facility] Last Admin: 10/14/17 17:24 Dose: 60 mg Metronidazole (Flagyl) 500 mg in 100 mls @ 100 mls/hr IVPB Q8 [facility] Last Admin: 10/14/17 14:11 Dose: 100 mls/hr Meropenem 1 gm/ Sodium (Chloride) 100 mls @ 100 mls/hr IVPB Q8H [facility] Last Admin: 10/14/17 14:08 Dose: 100 mls/hr Diltiazem HCl 125 mg/ Dextrose 125 mls @ 5 mls/hr IV .Q24H TIM; 5 MG/HR PRN Reason: Protocol Last Admin: 10/14/17 17:07 Dose: Not Given Insulin Human Regular (Novolin R) 0 unit SC Q6H [facility] PRN Reason: Protocol Last Admin: 10/14/17 17:39 Dose: Not Given Levothyroxine Sodium (Synthroid) 50 mcg PO DAILY@0630 [facility] Last Admin: 10/14/17 05:33 Dose: 50 mcg Losartan Potassium (Cozaar) 100 mg PO DAILY [facility] Last Admin: 10/14/17 09:11 Dose: 100 mg Mirtazapine (Remeron) 15 mg PO HS [facility] Ondansetron HCl (Zofran Inj) 4 mg IVP Q6H PRN PRN Reason: Nausea/Vomiting Last Admin: 10/10/17 21:10 Dose: 4 mg Pantoprazole Sodium (Protonix Inj) 40 mg IVP DAILY [facility] Last Admin: 10/14/17 09:11 Dose: 40 mg Polyethylene Glycol (Miralax) 17 gm PO BID PRN PRN Reason: Constipation Last Admin: 10/07/17 10:14 Dose: 17 gm Rosuvastatin Calcium (Crestor) 5 mg NG HS [facility] Last Admin: 10/13/17 22:23 Dose: 5 mg Saccharomyces Boulardii (Florastor) 250 mg NG BID [facility] Last Admin: 10/14/17 17:24 Dose: 250 mg Vitamin A (Vitamin A & D Oint Ud Foilpak) 0.5 ea TOP Q4 [facility] Last Admin: 10/14/17 16:00 Dose: 0.5 ea - Labs Labs: 10/14/17 06:28 10/14/17 06:24 PT 15.4 SECONDS (9.7-12.2) H 10/13/17 06:29 INR 1.4 10/13/17 06:29 APTT 71 SECONDS (21-34) H 10/13/17 06:29
[2017-10-15] MEDS: Vitamins A & D Oint UD Foilpak TOP SCH ×6 (00:10→20:23)
[2017-10-15] MEDS: (Novolin R) Insulin Human Regular 100 units/ml vial SC SCH ×5 (00:15→22:39)
--- NOTE | 2017-10-15 01:15 | CP.PCM.PN ---
Subjective - Date & Time of Evaluation Date of Evaluation: 10/15/17 Time of Evaluation: 01:13 - Subjective Subjective: General Surgery: Dr Hinton Pt S&E. Resting comfortably in ICU. Pt was extubated yesterday. PT much more awake and alert now. Oriented to person and place. Aware of events of the previous week. States abdominal pain is much better now. Has been tolerating liquids. Denies any flatus. Denies N/V, F/C, SOB or chest pain. Remains mildly tachycardic. Objective - Vital Signs/Intake and Output Vital Signs (last 24 hours): Temp Pulse Resp BP Pulse Ox 97.8 F 115 H 22 129/74 93 L 10/14/17 20:00 10/14/17 22:18 10/14/17 22:18 10/14/17 22:18 10/14/17 22:18 Intake and Output: 10/14/17 10/15/17 18:59 06:59 Intake Total 1577 15 Output Total 550 Balance 1027 15 - Medications Medications: Current Medications Acetaminophen (Tylenol 325mg Tab) 650 mg PO Q6 PRN PRN Reason: Fever >100.4 F Amlodipine Besylate (Norvasc) 10 mg PO DAILY [facility] Last Admin: 10/14/17 09:11 Dose: 10 mg Apixaban (Eliquis) 5 mg PO BID [facility] Last Admin: 10/14/17 17:24 Dose: 5 mg Aspirin (Aspirin Chewable) 81 mg PO DAILY [facility] Last Admin: 10/14/17 09:13 Dose: 81 mg Diltiazem HCl (Cardizem) 60 mg PO Q6 [facility] Last Admin: 10/14/17 17:24 Dose: 60 mg Metronidazole (Flagyl) 500 mg in 100 mls @ 100 mls/hr IVPB Q8 [facility] Last Admin: 10/14/17 21:46 Dose: 100 mls/hr Meropenem 1 gm/ Sodium (Chloride) 100 mls @ 100 mls/hr IVPB Q8H [facility] Last Admin: 10/14/17 21:45 Dose: 100 mls/hr Diltiazem HCl 125 mg/ Dextrose 125 mls @ 5 mls/hr IV .Q24H TIM; 5 MG/HR PRN Reason: Protocol Last Admin: 10/14/17 17:07 Dose: Not Given Insulin Human Regular (Novolin R) 0 unit SC Q6H [facility] PRN Reason: Protocol Last Admin: 10/14/17 17:39 Dose: Not Given Levothyroxine Sodium (Synthroid) 50 mcg PO DAILY@0630 [facility] Last Admin: 10/14/17 05:33 Dose: 50 mcg Losartan Potassium (Cozaar) 100 mg PO DAILY [facility] Last Admin: 10/14/17 09:11 Dose: 100 mg Mirtazapine (Remeron) 15 mg PO HS [facility] Last Admin: 10/14/17 21:52 Dose: 15 mg Ondansetron HCl (Zofran Inj) 4 mg IVP Q6H PRN PRN Reason: Nausea/Vomiting Last Admin: 10/10/17 21:10 Dose: 4 mg Pantoprazole Sodium (Protonix Inj) 40 mg IVP DAILY [facility] Last Admin: 10/14/17 09:11 Dose: 40 mg Polyethylene Glycol (Miralax) 17 gm PO BID PRN PRN Reason: Constipation Last Admin: 10/07/17 10:14 Dose: 17 gm Rosuvastatin Calcium (Crestor) 5 mg NG HS [facility] Last Admin: 10/14/17 21:52 Dose: 5 mg Saccharomyces Boulardii (Florastor) 250 mg NG BID [facility] Last Admin: 10/14/17 17:24 Dose: 250 mg Vitamin A (Vitamin A & D Oint Ud Foilpak) 0.5 ea TOP Q4 [facility] Last Admin: 10/14/17 16:00 Dose: 0.5 ea - Labs Labs: 10/14/17 06:28 10/14/17 06:24 PT 15.4 SECONDS (9.7-12.2) H 10/13/17 06:29 INR 1.4 10/13/17 06:29 APTT 71 SECONDS (21-34) H 10/13/17 06:29 - Constitutional Appears: Non-toxic, No Acute Distress - ENT Exam ENT Exam: Mucous Membranes Moist - Respiratory Exam Respiratory Exam: absent: Accessory Muscle Use, Respiratory Distress - Cardiovascular Exam Cardiovascular Exam: Tachycardia. absent: REGULAR RHYTHM - GI/Abdominal Exam GI & Abdominal Exam: Soft, Tenderness (león-incisional). absent: Distended, Guarding, Rigid Additional comments: midline c/d/i - Extremities Exam Extremities Exam: absent: Pedal Edema - Neurological Exam Neurological Exam: Alert, Awake - Psychiatric Exam Psychiatric exam: Normal Affect, Normal Mood - Skin Skin Exam: Normal Color, Warm Assessment and Plan - Assessment and Plan (Free Text) Assessment: 77F POD#6 s/p ex-lap w/ small bowel resection Plan: cont abx cont light IVF hydration would cont CLD for now and not advance until flatus aggressive PT given deconditioning incentive spirometer will d/w Dr Jamaal Finnegan, PGY3
[2017-10-15] MEDS: Meropenem 1 GM in Sodium Chloride 0.9% 100 ML IVPB SCH ×3 (05:13→23:09)
[2017-10-15] MEDS: metroNIDAZOLE IV 500 mg/100 ml 500 MG/100 ML BAG IVPB SCH ×3 (05:13→23:06)
[2017-10-15] MEDS: Levothyroxine 50 MCG TAB PO SCH (05:52)
[2017-10-15 05:59] LABS: BASO # 0.1 K/uL (0.0-0.2); BASO % 0.5 % (0.0-2.0); EOS # 0.4 K/uL (0.0-0.7); EOS % 2.6 % (0.0-4.0); HEMOGLOBIN 12.6 g/dL (11.0-16.0); LYMPH # 1.8 K/uL (1.0-4.3); LYMPH % 13.1 % (20.0-40.0); MEAN CELL VOLUME 87.9 fL (81.0-99.0); MEAN CORPUSCULAR HEMOGLOBIN 29.1 pg (27.0-31.0); MEAN CORPUSCULAR HGB CONC 33.1 g/dL (33.0-37.0); MEAN PLATELET VOLUME 9.9 fL (7.2-11.7); MONO # 1.2 K/uL (0.0-0.8); MONO % 8.4 % (0.0-10.0); NEUT # 10.4 K/uL (1.8-7.0); NEUT % 75.4 % (50.0-75.0); RBC 4.35 Mil/uL (3.80-5.20); RED CELL DISTRIBUTION WIDTH 15.4 % (11.5-14.5); WHITE BLOOD COUNT 13.8 K/uL (4.8-10.8)
[2017-10-15 06:20] LABS: ALB/GLOB RATIO 0.9 (1.0-2.1); ALBUMIN 2.7 g/dL (3.5-5.0); ALT/SGPT 21 U/L (9-52); AST/SGOT 23 U/L (14-36); BLOOD UREA NITROGEN 22 mg/dL (7-17); CALCIUM 8.4 mg/dl (8.6-10.4); GFR AFRICAN-AMERICAN > 60; GFR NON-AFRICAN AMERICAN > 60
--- NOTE | 2017-10-15 08:59 | CP.PCM.PN ---
Subjective - Date & Time of Evaluation Date of Evaluation: 10/14/17 Time of Evaluation: 18:05 - Subjective Subjective: Patient seen and evaluated. Oriented x 1 and confused Some dyspnea Physical Examiation Physical Exam: Vital Signs as below Const'l: +Patient is no longer intubated, oriented x 1, dyspnea Head/Neck: neck supple, no jvd, trachea midline, carotid midline, no cervical/head mass Eyes: pupils equally reactive to light and accommodation, nonicteric sclera, extraocular intact ENT: auditory acuity grossly intact, throat not congested, no nasal deformity Cardio: +Irregular rhythm; +scar on chest wall on left and right sides, regular rate, regular rhythm, no murmurs rubs gallops, no carotid bruit, normal s1, s2 Pulm: no accessory muscle use, equal normal breath sounds bilaterally, clear to ausculation bilaterally Abd: +obesity limiting exam, +slightly diminished bowel sounds in lower quadrants - resolved; soft non tender non-distended, no palpable masses Derm: no rashes, no ulcers, no lesions Extr: no edema, no cyanosis, no calf tenderness, no lesions, no varicosities Neuro: cranial nerves II-XII grossly intact, upper extremity and lower extremity 5/5 muscle strength bilaterally, no loss of sensation in upper extremities, lower extremities bilaterally and core Objective - Vital Signs/Intake and Output Vital Signs (last 24 hours): Temp Pulse Resp BP Pulse Ox 98.6 F 93 H 33 H 116/63 94 L 10/15/17 04:00 10/15/17 08:00 10/15/17 08:00 10/15/17 07:40 10/15/17 08:00 Intake and Output: 10/15/17 10/15/17 06:59 18:59 Intake Total 355 105 Output Total 800 Balance -445 105 - Medications Medications: Current Medications Acetaminophen (Tylenol 325mg Tab) 650 mg PO Q6 PRN PRN Reason: Fever >100.4 F Amlodipine Besylate (Norvasc) 10 mg PO DAILY [facility] Last Admin: 10/14/17 09:11 Dose: 10 mg Apixaban (Eliquis) 5 mg PO BID [facility] Last Admin: 10/14/17 17:24 Dose: 5 mg Aspirin (Aspirin Chewable) 81 mg PO DAILY [facility] Last Admin: 10/14/17 09:13 Dose: 81 mg Diltiazem HCl (Cardizem) 60 mg PO Q6 [facility] Last Admin: 10/15/17 05:15 Dose: 60 mg Metronidazole (Flagyl) 500 mg in 100 mls @ 100 mls/hr IVPB Q8 [facility] Last Admin: 10/15/17 05:13 Dose: 100 mls/hr Meropenem 1 gm/ Sodium (Chloride) 100 mls @ 100 mls/hr IVPB Q8H [facility] Last Admin: 10/15/17 05:13 Dose: 100 mls/hr Insulin Human Regular (Novolin R) 0 unit SC Q6H [facility] PRN Reason: Protocol Last Admin: 10/15/17 05:34 Dose: Not Given Levothyroxine Sodium (Synthroid) 50 mcg PO DAILY@0630 [facility] Last Admin: 10/15/17 05:52 Dose: 50 mcg Losartan Potassium (Cozaar) 100 mg PO DAILY [facility] Last Admin: 10/14/17 09:11 Dose: 100 mg Ondansetron HCl (Zofran Inj) 4 mg IVP Q6H PRN PRN Reason: Nausea/Vomiting Last Admin: 10/10/17 21:10 Dose: 4 mg Pantoprazole Sodium (Protonix Inj) 40 mg IVP DAILY [facility] Last Admin: 10/14/17 09:11 Dose: 40 mg Polyethylene Glycol (Miralax) 17 gm PO BID PRN PRN Reason: Constipation Last Admin: 10/07/17 10:14 Dose: 17 gm Rosuvastatin Calcium (Crestor) 5 mg NG HS [facility] Last Admin: 10/14/17 21:52 Dose: 5 mg Saccharomyces Boulardii (Florastor) 250 mg NG BID [facility] Last Admin: 10/14/17 17:24 Dose: 250 mg Vitamin A (Vitamin A & D Oint Ud Foilpak) 0.5 ea TOP Q4 [facility] Last Admin: 10/15/17 04:35 Dose: 0.5 ea - Labs Labs: 10/15/17 05:55 10/15/17 05:55 PT 15.4 SECONDS (9.7-12.2) H 10/13/17 06:29 INR 1.4 10/13/17 06:29 APTT 71 SECONDS (21-34) H 10/13/17 06:29 Assessment and Plan - Assessment and Plan (Free Text) Assessment: Assessment and Plan - Assessment and Plan (Free Text) Assessment: Acute Assessments and Plan: 77 year old female with extensive cardiac history including CABG (2012), Cath with results as below (2014), and Abnormal stress test (2017) presents with 4 hour duration of chest pain. Troponins at .0230-->.0220-->.0260. EKG showed new LBBB with NSR at 90 bpm. Cath on this admission showed further RCA stenosis at about 50%. SUMMERS to LAD patent, but large diagonal and obtuse marginal no longer patent. Please see operative note for further information. New-Onset Atrial Fibrillation - Rate controlled - Pacemaker interrogated by school admissions representative from [employer]. Patient's Pacemaker is functioning appropriately, is trying to compensate for patient's irregular rhythm - Rate control: Metoprolol 5 q6 - Rhythm management: Diltiazem drip - Anticoagulation - Eliquis 5 BID started today Ischemic Bowel s/p 2 ft of small bowel resection - Heparin drip - Management per ICU and Surgery Prophylactic Measures - GI PPX: Protonix 40mg PO daily - DVT PPX: SCDs, Heparin Q12 Assessment and Plan History: Holter in 2017 showed NSR with max HR 121, SVT at HR of 146 and rare VPC, isolated APC. Cardiac Cath in 2014 showed distal main coronary artery 70-80% concentric stenosis mid LAD 70-80% stenosis, RCA 20-30% non-obstructing stenosis , and large diagonal branch 85% proximal stenosis. with LVEF of 60%. Basal inferior wall akinetic. Previous ECHO showed borderline concentric LVH with grade I abnormal relaxation pattern, severe aortic stenosis, mild mitral regurg , and mild to moderate pulmonic regurg. LVEF was 60-65%. History of pacemaker placement per chart review. Chest Pain, ACS ruled out, likely 2/2 New LBBB - EK, and LBBB not found on previous EKG's in system - Troponin X 1 at .0230, X2 at .0220; baseline is <.0120; CK-MB 1.87-1.85 - BNP elevated at 1580, past BNP's 799-955, with one at 1930 in 2012. - TSH, T4, Lipids - wnl - Mg/Phos:1.3/3.4 - CT Chest with IV: No aneurysm, no dissection, no PE - Follow up Troponins, EKGs - ECHO ordered, Nitro given, ASA 81 daily, Cozaar daily, Norvasc daily, Crestor daily New Left Bundle Branch Block - Patient already has a pacemaker placed (LBBB could be 2/2 to pacing) - Serial JOANNA panel, Serial EKGs, as above - Patient cardiac cath today, Results are: Briefly, LAD to SUMMERS is patent, but other graft is gone. There actually is no jump graft RCA is now 50% stenosed, moreso than last cath Please see operative note for further details CAD s/p CABG (2012) - Crestor, Cozaar, ASA daily HTN - Norvasc 5mg PO daily, Cozaar 100mg PO daily HLD - Crestor 5mg PO QHS (patient's home medication is lipitor) DM - HGA1C: 7.1 (09/2017), Held home medication: Metformin - Carb Consistent Diet, Accuchecks, RISS - Mod Hyperkalemia - Per primary team Elevated T. Bili - Per primary team Transaminitis - Per primary team Hypothyroidism - Per primary team History of Breast Cancer - Per primary team
[2017-10-15] MEDS: Saccharomyces Boulardi 250 mg Cap NG SCH ×2 (10:01→18:42)
--- NOTE | 2017-10-15 12:42 | RAD ---
Chest x-ray single frontal view History: Effusion. Comparison: 10/13/2017 Findings: Mild venous congestion. Left basilar airspace opacity with a small left pleural effusion. Bilateral hilar prominence. Cardiomegaly. Status post median sternotomy. Right-sided pacemaker. Left central venous catheter in stable position. Impression: Mild venous congestion. Left basilar airspace opacity with a small left pleural effusion. Bilateral hilar prominence. Cardiomegaly. Status post median sternotomy. Right-sided pacemaker.
--- NOTE | 2017-10-15 12:50 | CP.PCM.CON ---
History of Present Illness - History of Present Illness History of Present Illness: CONSULT DICTATED EPISODE OF DISORIENTATION ?? PARTIAL COMPLEX SEIZURE Vs VBI OR METABOLIC ENCEPHALOPATHY OR SUN DOWNING / PARA NEOPLASTIC CAT/EEG CORRECT ELECTOLYTES NEEDS PSG AN OP TO WORK UP FOR HER SLEEP RELATED BREATHING DISORDER Past Patient History - Past Medical History & Family History Past Medical History?: Yes - Past Social History Smoking Status: Former Smoker Alcohol: None Drugs: Denies Home Situation {Lives}: With Family - CARDIAC Hx Hypercholesterolemia: Yes Hx Hypertension: Yes - PULMONARY Hx Chronic Obstructive Pulmonary Disease (COPD): Yes - NEUROLOGICAL Hx Neurological Disorder: Yes - HEENT Hx HEENT Problems: Yes Hx Cataracts: Yes (removed bilateral 2011) - RENAL Hx Chronic Kidney Disease: No - ENDOCRINE/METABOLIC Hx Diabetes Mellitus Type 2: Yes Hx Hypothyroidism: Yes - HEMATOLOGICAL/ONCOLOGICAL Hx Blood Disorders: Yes Hx Cancer: Yes (LEFT BREAST-RADIATION TX. DONE) - INTEGUMENTARY Hx Dermatological Problems: Yes Other/Comment: CANCER LEFT BREAST-LUMPECTOMY DONE - MUSCULOSKELETAL/RHEUMATOLOGICAL Hx Arthritis: Yes (KNEE PAIN) - GASTROINTESTINAL Hx Gastrointestinal Disorders: No - GENITOURINARY/GYNECOLOGICAL Hx Genitourinary Disorders: No - PSYCHIATRIC Hx Anxiety: Yes Hx Depression: Yes Hx Substance Use: No - SURGICAL HISTORY Hx Coronary Artery Bypass Graft: Yes (jan 17 2013 TRIPLE) Hx Coronary Stent: Yes Hx Tonsillectomy: Yes - ANESTHESIA Hx Anesthesia: Yes Hx Anesthesia Reactions: No Hx Malignant Hyperthermia: No Meds Allergies/Adverse Reactions: Allergies Allergy/AdvReac Type Severity Reaction Status Date / Time No Known Allergies Allergy Verified 10/04/17 17:45 - Medications Medications: Current Medications Acetaminophen (Tylenol 325mg Tab) 650 mg PO Q6 PRN PRN Reason: Fever >100.4 F Apixaban (Eliquis) 5 mg PO BID [facility] Last Admin: 10/15/17 10:01 Dose: 5 mg Aspirin (Aspirin Chewable) 81 mg PO DAILY [facility] Last Admin: 10/15/17 10:01 Dose: 81 mg Diltiazem HCl (Cardizem) 90 mg PO Q6 [facility] Last Admin: 10/15/17 11:25 Dose: 90 mg Metronidazole (Flagyl) 500 mg in 100 mls @ 100 mls/hr IVPB Q8 [facility] Last Admin: 10/15/17 05:13 Dose: 100 mls/hr Meropenem 1 gm/ Sodium (Chloride) 100 mls @ 100 mls/hr IVPB Q8H [facility] Last Admin: 10/15/17 05:13 Dose: 100 mls/hr Insulin Human Regular (Novolin R) 0 unit SC ACHS [facility] PRN Reason: Protocol Last Admin: 10/15/17 12:35 Dose: Not Given Levothyroxine Sodium (Synthroid) 50 mcg PO DAILY@0630 [facility] Last Admin: 10/15/17 05:52 Dose: 50 mcg Losartan Potassium (Cozaar) 100 mg PO DAILY [facility] Last Admin: 10/15/17 10:01 Dose: 100 mg Ondansetron HCl (Zofran Inj) 4 mg IVP Q6H PRN PRN Reason: Nausea/Vomiting Last Admin: 10/10/17 21:10 Dose: 4 mg Pantoprazole Sodium (Protonix Inj) 40 mg IVP DAILY [facility] Last Admin: 10/15/17 10:00 Dose: 40 mg Polyethylene Glycol (Miralax) 17 gm PO BID PRN PRN Reason: Constipation Last Admin: 10/07/17 10:14 Dose: 17 gm Rosuvastatin Calcium (Crestor) 5 mg NG HS [facility] Last Admin: 10/14/17 21:52 Dose: 5 mg Saccharomyces Boulardii (Florastor) 250 mg NG BID [facility] Last Admin: 10/15/17 10:01 Dose: 250 mg Vitamin A (Vitamin A & D Oint Ud Foilpak) 0.5 ea TOP Q4 [facility] Last Admin: 10/15/17 11:25 Dose: 0.5 ea Results - Vital Signs Recent Vital Signs: Last Vital Signs Temp 97.8 F 10/15/17 08:00 Pulse 120 H 10/15/17 11:15 Resp 33 H 10/15/17 11:00 BP 126/59 L 10/15/17 10:18 Pulse Ox 99 10/15/17 11:00 - Labs Result Diagrams: 10/15/17 05:55 10/15/17 05:55 Labs: Laboratory Results - last 24 hr 10/14/17 10/14/17 10/15/17 14:01 17:36 00:10 WBC RBC Hgb Hct MCV MCH MCHC RDW Plt Count MPV Neut % (Auto) Lymph % (Auto) [place] % (Auto) Eos % (Auto) Baso % (Auto) Neut # Lymph # [place] # Eos # Baso # Sodium Potassium Chloride Carbon Dioxide Anion Gap BUN Creatinine Est GFR ( Amer) Est GFR (Non-Af Amer) POC Glucose (mg/dL) 158 H 142 H 116 H Random Glucose Calcium Phosphorus Magnesium Total Bilirubin AST ALT Alkaline Phosphatase Ammonia Total Protein Albumin Globulin Albumin/Globulin Ratio Procalcitonin 10/15/17 10/15/17 10/15/17 05:29 05:55 05:55 WBC 13.8 H RBC 4.35 Hgb 12.6 Hct 38.2 MCV 87.9 MCH 29.1 MCHC 33.1 RDW 15.4 H Plt Count 267 MPV 9.9 Neut % (Auto) 75.4 H Lymph % (Auto) 13.1 L [place] % (Auto) 8.4 Eos % (Auto) 2.6 Baso % (Auto) 0.5 Neut # 10.4 H Lymph # 1.8 [place] # 1.2 H Eos # 0.4 Baso # 0.1 Sodium 145 Potassium 4.0 Chloride 112 H Carbon Dioxide 26 Anion Gap 12 BUN 22 H Creatinine 0.6 L Est GFR ( Amer) > 60 Est GFR (Non-Af Amer) > 60 POC Glucose (mg/dL) 103 Random Glucose 107 H Calcium 8.4 L Phosphorus 2.9 Magnesium 2.0 Total Bilirubin 0.5 AST 23 ALT 21 Alkaline Phosphatase 98 Ammonia Total Protein 5.6 L Albumin 2.7 L Globulin 2.9 Albumin/Globulin Ratio 0.9 L Procalcitonin 10/15/17 10/15/17 10/15/17 08:32 08:32 11:50 WBC RBC Hgb Hct MCV MCH MCHC RDW Plt Count MPV Neut % (Auto) Lymph % (Auto) [place] % (Auto) Eos % (Auto) Baso % (Auto) Neut # Lymph # [place] # Eos # Baso # Sodium Potassium Chloride Carbon Dioxide Anion Gap BUN Creatinine Est GFR ( Amer) Est GFR (Non-Af Amer) POC Glucose (mg/dL) 152 H Random Glucose Calcium Phosphorus Magnesium Total Bilirubin AST ALT Alkaline Phosphatase Ammonia < 9 L Total Protein Albumin Globulin Albumin/Globulin Ratio Procalcitonin 0.41
--- NOTE | 2017-10-15 15:19 | CP.PCM.PN ---
Subjective - Date & Time of Evaluation Date of Evaluation: 10/15/17 Time of Evaluation: 15:15 - Subjective Subjective: Acute event: Patient developed painless, bloody liquid bowel movement. Patient's BP remains stable, HR stable. Objective - Vital Signs/Intake and Output Vital Signs (last 24 hours): Temp Pulse Resp BP Pulse Ox 98.2 F 98 H 25 H 119/72 93 L 10/15/17 12:00 10/15/17 14:18 10/15/17 14:18 10/15/17 14:18 10/15/17 14:18 Intake and Output: 10/15/17 10/15/17 06:59 18:59 Intake Total 355 635 Output Total 800 200 Balance -445 435 - Medications Medications: Current Medications Acetaminophen (Tylenol 325mg Tab) 650 mg PO Q6 PRN PRN Reason: Fever >100.4 F Amiodarone HCl (Cordarone) 400 mg PO BID [facility] Diltiazem HCl (Cardizem) 90 mg PO Q6 [facility] Last Admin: 10/15/17 11:25 Dose: 90 mg Metronidazole (Flagyl) 500 mg in 100 mls @ 100 mls/hr IVPB Q8 [facility] Last Admin: 10/15/17 14:15 Dose: 100 mls/hr Meropenem 1 gm/ Sodium (Chloride) 100 mls @ 100 mls/hr IVPB Q8H [facility] Last Admin: 10/15/17 14:16 Dose: 100 mls/hr Insulin Human Regular (Novolin R) 0 unit SC ACHS [facility] PRN Reason: Protocol Last Admin: 10/15/17 12:35 Dose: Not Given Levothyroxine Sodium (Synthroid) 50 mcg PO DAILY@0630 [facility] Last Admin: 10/15/17 05:52 Dose: 50 mcg Losartan Potassium (Cozaar) 100 mg PO DAILY [facility] Last Admin: 10/15/17 10:01 Dose: 100 mg Ondansetron HCl (Zofran Inj) 4 mg IVP Q6H PRN PRN Reason: Nausea/Vomiting Last Admin: 10/10/17 21:10 Dose: 4 mg Pantoprazole Sodium (Protonix Inj) 40 mg IVP DAILY [facility] Last Admin: 10/15/17 10:00 Dose: 40 mg Polyethylene Glycol (Miralax) 17 gm PO BID PRN PRN Reason: Constipation Last Admin: 10/07/17 10:14 Dose: 17 gm Rosuvastatin Calcium (Crestor) 5 mg NG HS [facility] Last Admin: 10/14/17 21:52 Dose: 5 mg Saccharomyces Boulardii (Florastor) 250 mg NG BID [facility] Last Admin: 10/15/17 10:01 Dose: 250 mg Vitamin A (Vitamin A & D Oint Ud Foilpak) 0.5 ea TOP Q4 [facility] Last Admin: 10/15/17 11:25 Dose: 0.5 ea - Labs Labs: 10/15/17 05:55 10/15/17 05:55 PT 15.4 SECONDS (9.7-12.2) H 10/13/17 06:29 INR 1.4 10/13/17 06:29 APTT 71 SECONDS (21-34) H 10/13/17 06:29 - GI/Abdominal Exam GI & Abdominal Exam: Soft, Normal Bowel Sounds. absent: Distended, Firm, Guarding - Rectal Exam Rectal Exam: Bloody Stool Assessment and Plan (1) Respiratory failure with hypoxia Status: Resolved - Assessment and Plan (Free Text) Assessment: Acute Painless Lower Gi bleed: will make NPO, d/c asprin and eliquis, start IV PPI, NPO -obtain type and screen -infuse 1-2 untis of blood -cbc q6hrs -GI consult --liekly diverticulosis. -no episode of hypotension -continue to monitor
[2017-10-15] MEDS ORDERED: Pantoprazole 80 MG in Sodium Chloride 0.9% 100 ML IVP SCH (15:30)
[2017-10-15 15:42] LABS: BASO # 0.2 K/uL (0.0-0.2); BASO % 1.1 % (0.0-2.0); EOS # 0.2 K/uL (0.0-0.7); EOS % 1.2 % (0.0-4.0); HEMOGLOBIN 11.4 g/dL (11.0-16.0); LYMPH # 1.8 K/uL (1.0-4.3); LYMPH % 10.6 % (20.0-40.0); MEAN CELL VOLUME 87.7 fL (81.0-99.0); MEAN CORPUSCULAR HEMOGLOBIN 28.2 pg (27.0-31.0); MEAN CORPUSCULAR HGB CONC 32.1 g/dL (33.0-37.0); MEAN PLATELET VOLUME 9.6 fL (7.2-11.7); MONO # 1.4 K/uL (0.0-0.8); MONO % 8.1 % (0.0-10.0); NEUT # 13.3 K/uL (1.8-7.0); RBC 4.05 Mil/uL (3.80-5.20); RED CELL DISTRIBUTION WIDTH 15.8 % (11.5-14.5); WHITE BLOOD COUNT 16.8 K/uL (4.8-10.8)
--- NOTE | 2017-10-15 15:43 | CT ---
PROCEDURE: CT HEAD WITHOUT CONTRAST. HISTORY: R/O BLEED VS STROKE COMPARISON: 12/20/2013 TECHNIQUE: Axial computed tomography images were obtained through the head/brain without intravenous contrast. Radiation dose: Total exam DLP = 1744 mGy-cm. This CT exam was performed using one or more of the following dose reduction techniques: Automated exposure control, adjustment of the mA and/or kV according to patient size, and/or use of iterative reconstruction technique. FINDINGS: HEMORRHAGE: No intracranial hemorrhage. Prominent streak artifact in bifrontal regions evaluation. Additional prominent streak artifact in the posterior fossa somewhat limits evaluation. BRAIN: No mass effect or edema. Scattered focal lucencies in the subcortical and periventricular white matter suggestive for chronic microvascular ischemic change. Bilateral basal ganglia calcifications. VENTRICLES: Unremarkable. No hydrocephalus. CALVARIUM: Unremarkable. PARANASAL SINUSES: Mild mucosal thickening of the bilateral maxillary sinuses as well as the sphenoid sinus. MASTOID AIR CELLS: Unremarkable as visualized. No inflammatory changes. OTHER FINDINGS: None. IMPRESSION: Prominent streak artifact in the bifrontal regions and posterior fossa limit evaluation. No acute intracranial abnormality. If symptoms persists, consider further evaluation with MRI. Chronic microvascular ischemic change. Mild sinus mucosal disease.
[2017-10-15 16:29] LABS: INR 1.4; PROTHROMBIN TIME 16.3 SECONDS (9.7-12.2)
[2017-10-15] MEDS: Pantoprazole 80 MG in Sodium Chloride 0.9% 100 ML IVPB SCH (16:39)
--- NOTE | 2017-10-15 19:28 | CP.PCM.PN ---
Subjective - Date & Time of Evaluation Date of Evaluation: 10/15/17 Time of Evaluation: 16:30 - Subjective Subjective: Hospitalist Progress Note Patient was seen and examined at 4:30 PM 10/15/17 ICU Bed #18 Patient was extubated 10/13/17. Exam: General: NG tube. She is awake and speaking and following commands. HEENT: EOMI, PERRLA, NO cervical/submandibular/supraclavicular lymphadenopathy, NO thyromegaly Cardio: NS1 and NS2, NO M/R/G Resp: Course breath sounds throughout GI: BSx4, Soft, Central Obesity, Ventral Vertical Surgical Site with intact alirio and NO dehiscence and NO surrounding signs of cellulitis, some tenderness to palpation around the surgical site, however NO guarding/rebound tenderness Ext: NO edema, Pulses are strong and equal, NO discoloration, NO cyanosis, Capillary Refill is 2 seconds 1.Bowel Ischemia Abdominal Pain Abdominal Aorta Aneurysm * General surgery: Dr. Hinton on consult-->given LLQ abdominal pain * 10/08/17: Exploratory laparotomy, small bowel resection and primary anastomosis. EBL: 100; No Drains * Vascular surgery consult: Dr. Inman to follow for evaluation--> given aborminal aorta focal contained dissection * CT Dissection protocol (10/04/17): No evidence of thoracic aortic aneurysm, dissection, or rupture. No acute pulmonary embolism, Hepatic cysts, further findings available in the report including. Focal aneurysmal dilatation of infrarenal abdominal aorta measuring 2.6cm * Meropenem 1gram IVPB Q 8H (10/07/17) * Flagyl 500mg IVPB Q8H (active since 10/07/17) * CT abdomen/pelvis PO (10/07/17); Small bowel pneumatosis and portal venous gas concerning for bowel ischemia and necrosis. Multiple liver cysts. Nonobstructing calcifications in the left kidney. 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 Chest Pain New LBBB History of Coronary Artery Disease History of CABG History of Diabetes Lipid Disorder History of Hypertension History of Severe Aortic Stenosis History of Pacemaker; prior Sick Sinus syndrome New Onset Atrial Fibrillation * Cardiology (Dr. Childs) on board-->help appreciated * Cardiac cath (10/06/17) completed; discussed with Dr. Childs including RCA occlusion about 50%-->will need intervention in future * Echocardiogram (10/06/17): left ventricular function is normal, left ventricular ejection fraction is within the normal range. No regional wall motion abnormalities noted. Left atrium is mildly dilated. Mild to Moderate valvular aortic stenosis. Calculated aortic valve area is 1.1cm squared. Donna regurgitation is mild to moderate. * Prior cardiac workup: * Holter in 2017 showed NSR with max HR 121, SVT at HR of 146 and rare VPC, isolated APC. * Cardiac Cath in 2015 showed distal main coronary artery 70-80% concentric stenosis mid LAD 70-80% stenosis, RCA 20-30% non-obstructing stenosis, and large diagonal branch 85% proximal stenosis. with LVEF of 60%. Basal inferior wall akinetic. * revious ECHO showed borderline concentric LVH with grade I abnormal relaxation pattern, severe aortic stenosis, mild mitral regurg, and mild to moderate pulmonic regurg. LVEF was 60-65%. History of pacemaker placement per chart review. * CT Dissection protocol (10/04/17): No evidence of thoracic aortic aneurysm, dissection, or rupture. No acute pulmonary embolism, Hepatic cysts, further findings available in the report inclduing Focal aneurysmal dilatation of infrarenal abdominal aorta measuring 2.6cm * Elevated probnp: 1580 * CARLYN: 7 * T, cholestrol: 159, LDL: 91, HDL: 41 * [id number]: 7.1 * PaceMaker was interrogated by [employer] and it was deemed to be working properly * Patient had episodes of tachycardia 10/10/17 and 10/11/17 and was placed on Cardizem Drip 10 mg/hour and Lopressor 5 mg IV Q6H which were discontinued on Current Cardiac Meds: * Eliquis 5 mg PO 2x/day started 10/13/17 and was PUT ON HOLD due to Bright Red Blood Per Rectum on 10/15/17 * Aspirin 81 mg NG 1x/day PUT ON HOLD due to Bright Red Blood Per Rectum on 10/15 * Amiodarone 400 mg started PO 2x/day * Diltiazem 90 mg PO Q6H * Crestor 5mg NG QHS * Cozaar 100 mg NG 1x/day 3. Sepsis Urinary Tract Infection Bandemia * Infectious Disease (Dr. Lawson) on the case-->help appreciated * Code sepsis 10/07/17 * Blood cultures (10/06/17): Negative at 5 days * Blood cultures (10/07/17): Negative at 5 days * Urine culture (10/07/17): Klebsiella Pneumoanie-->sensitive to Meropenem * Repeat Urine Culture (10/11/17): NO GROWTH * Stool Culture (10/07/17): Negative * Ova and Parasite (10/07/17): No ova and parasite * F/U repeat Stool Studies 10/12/17 that were ordered secondary to abundant diarrhea * Meropenem 1gram IVPB Q 8H (10/07/17- active) * Flagyl 500mg IVPB Q8H (10/07/17- active) * Lactic acid: 2.4 (10/05/17)-->1.8 (10/06/17)-->4.1 (10/07/17)-->2.6 (10/08/17)--> 2.2 (10/08/17) * Has Renee in place 4. Melena Bright Red Blood Per Rectum * 2 episodes of bright red blood per rectum on 10/15/17. Spoke with Surgery Resident occupational work experience teacher and they are aware. Spoke with GI Resident occupational work experience teacher and they will be ordered CT Angiogram * If CT Angiogram shows evidence of bleeding, then surgery will likely be required. * Patient is being transfused 1 unit PRBC * F/U repeat CBC at 9 PM 5. History of Chronic Constipation History of Liver cysts * GI (Dr. Boland) on case-->had signed off * Given patient is asymptomatic and appearance of lesions on imaging consistent with cystic disease, no further workup is indicated at this time. If patient becomes symptomatic, there is consideration for surgical intervention. * Maintain bowel regimen to prevent constipation * Suggest additional outpatient follow up and age appropriate screening colonoscopy if patient willing to undergo procedure. No further planned GI intervention * Hepatitis panel: negative * Please see #1 for further details. 6. History of Hypothyroidism * TSH: 2.92; Free T4: 1.49 * Synthroid 50mcg PO daily 7. History of Breast Cancer * Patient history of lumpectomy * She is being following serially * Patient is not on any chemotherapeutic agent 8. History of HTN * Losartan and Diltiazem as above 9. History of HLD * Restarted Crestor 10/12/17 10. History of DM * Novolin R SC Q6H Sliding Scale 11. Episode of Confusion This apparently occurred on night of 10/15/17: secondary to sundowning? Patient is AAOx3 at the time of my exam CT Head did not show any bleed or evidence of CVA 12. Prophylactic care * Anticoagulation was held given melena 10/07/17 but she was started on Heparin Drip 10/09/17 secondary to fear of showering emboli: monitor HgB/Hct which has been stable since the start of the Heparin Drip. The Heparin Drip was discontinued and Eliquis 5 mg PO Q12H was started 10/13/17 and then discontinued on 10/15/17 secondary to bright red blood per rectum on 10/15/17 * Palliative Care consult given patient wanted to discuss code status initially during hospitalization * Florastor 250 mg NG 2x/day * Zofran 4 mg IV Q6H PRN N/V * Protonix 40 mg IV 1x/day * NGT removed 10/14/17 and patient underwent Swallow Evaluation leading to placing her on Puree Diet Bertin Barbosa D.O. Objective - Vital Signs/Intake and Output Vital Signs (last 24 hours): Temp Pulse Resp BP Pulse Ox 98.2 F 95 H 22 119/59 L 97 10/15/17 19:01 10/15/17 19:01 10/15/17 19:01 10/15/17 19:01 10/15/17 17:10 Intake and Output: 10/15/17 10/16/17 18:59 06:59 Intake Total 745 325 Output Total 200 Balance 545 325 - Medications Medications: Current Medications Acetaminophen (Tylenol 325mg Tab) 650 mg PO Q6 PRN PRN Reason: Fever >100.4 F Amiodarone HCl (Cordarone) 400 mg PO BID [facility] Last Admin: 10/15/17 18:42 Dose: Not Given Diltiazem HCl (Cardizem) 90 mg PO Q6 [facility] Last Admin: 10/15/17 18:41 Dose: Not Given Metronidazole (Flagyl) 500 mg in 100 mls @ 100 mls/hr IVPB Q8 TIM Last Admin: 10/15/17 14:15 Dose: 100 mls/hr Meropenem 1 gm/ Sodium (Chloride) 100 mls @ 100 mls/hr IVPB Q8H [facility] Last Admin: 10/15/17 14:16 Dose: 100 mls/hr Pantoprazole Sodium 80 mg/ (Sodium Chloride) 100 mls @ 10 mls/hr IVPB .Q10H TIM PRN Reason: 8 MG/HR Last Admin: 10/15/17 16:39 Dose: 10 mls/hr Diltiazem HCl 125 mg/ Dextrose 125 mls @ 5 mls/hr IV .Q24H TIM; 5 MG/HR PRN Reason: Protocol Insulin Human Regular (Novolin R) 0 unit SC ACHS TIM PRN Reason: Protocol Last Admin: 10/15/17 17:09 Dose: Not Given Levothyroxine Sodium (Synthroid) 50 mcg PO DAILY@0630 [facility] Last Admin: 10/15/17 05:52 Dose: 50 mcg Losartan Potassium (Cozaar) 100 mg PO DAILY [facility] Last Admin: 10/15/17 10:01 Dose: 100 mg Ondansetron HCl (Zofran Inj) 4 mg IVP Q6H PRN PRN Reason: Nausea/Vomiting Last Admin: 10/10/17 21:10 Dose: 4 mg Pantoprazole Sodium (Protonix Inj) 40 mg IVP DAILY [facility] Last Admin: 10/15/17 10:00 Dose: 40 mg Polyethylene Glycol (Miralax) 17 gm PO BID PRN PRN Reason: Constipation Last Admin: 10/07/17 10:14 Dose: 17 gm Rosuvastatin Calcium (Crestor) 5 mg NG HS [facility] Last Admin: 10/14/17 21:52 Dose: 5 mg Saccharomyces Boulardii (Florastor) 250 mg NG BID [facility] Last Admin: 10/15/17 18:42 Dose: Not Given Vitamin A (Vitamin A & D Oint Ud Foilpak) 0.5 ea TOP Q4 [facility] Last Admin: 10/15/17 16:30 Dose: Not Given - Labs Labs: 10/15/17 15:33 10/15/17 05:55 PT 16.3 SECONDS (9.7-12.2) H 10/15/17 15:33 INR 1.4 10/15/17 15:33 APTT 30 SECONDS (21-34) D 10/15/17 15:33
[2017-10-15 21:11] LABS: BASO # 0.1 K/uL (0.0-0.2); BASO % 0.6 % (0.0-2.0); EOS # 0.2 K/uL (0.0-0.7); EOS % 1.3 % (0.0-4.0); LYMPH # 1.7 K/uL (1.0-4.3); LYMPH % 10.7 % (20.0-40.0); MEAN CELL VOLUME 88.4 fL (81.0-99.0); MEAN CORPUSCULAR HEMOGLOBIN 29.2 pg (27.0-31.0); MEAN PLATELET VOLUME 9.7 fL (7.2-11.7); MONO # 1.1 K/uL (0.0-0.8); MONO % 7.4 % (0.0-10.0); NEUT # 12.3 K/uL (1.8-7.0); NRBC % 0.1 % (0.0-2.0); RBC 4.11 Mil/uL (3.80-5.20); RED CELL DISTRIBUTION WIDTH 15.3 % (11.5-14.5); WHITE BLOOD COUNT 15.4 K/uL (4.8-10.8)
[2017-10-15] MEDS ORDERED: Iodixanol 320 MG/ML 100 ML BOTTLE IV ONE (22:25)
--- NOTE | 2017-10-15 22:31 | CP.PCM.PN ---
Subjective - Date & Time of Evaluation Date of Evaluation: 10/15/17 Time of Evaluation: 08:15 Objective - Vital Signs/Intake and Output Vital Signs (last 24 hours): Temp Pulse Resp BP Pulse Ox 98.2 F 97 H 22 134/56 L 95 10/15/17 19:01 10/15/17 19:41 10/15/17 19:41 10/15/17 19:41 10/15/17 19:41 Intake and Output: 10/15/17 10/16/17 18:59 06:59 Intake Total 755 335 Output Total 200 Balance 555 335 - Medications Medications: Current Medications Acetaminophen (Tylenol 325mg Tab) 650 mg PO Q6 PRN PRN Reason: Fever >100.4 F Amiodarone HCl (Cordarone) 400 mg PO BID [facility] Last Admin: 10/15/17 18:42 Dose: Not Given Diltiazem HCl (Cardizem) 90 mg PO Q6 [facility] Last Admin: 10/15/17 18:41 Dose: Not Given Metronidazole (Flagyl) 500 mg in 100 mls @ 100 mls/hr IVPB Q8 [facility] Last Admin: 10/15/17 14:15 Dose: 100 mls/hr Meropenem 1 gm/ Sodium (Chloride) 100 mls @ 100 mls/hr IVPB Q8H [facility] Last Admin: 10/15/17 14:16 Dose: 100 mls/hr Pantoprazole Sodium 80 mg/ (Sodium Chloride) 100 mls @ 10 mls/hr IVPB .Q10H TIM PRN Reason: 8 MG/HR Last Admin: 10/15/17 16:39 Dose: 10 mls/hr Diltiazem HCl 125 mg/ Dextrose 125 mls @ 5 mls/hr IV .Q24H TIM; 5 MG/HR PRN Reason: Protocol Last Admin: 10/15/17 20:09 Dose: 5 mg/hr, 5 mls/hr Insulin Human Regular (Novolin R) 0 unit SC ACHS [facility] PRN Reason: Protocol Last Admin: 10/15/17 17:09 Dose: Not Given Levothyroxine Sodium (Synthroid) 50 mcg PO DAILY@0630 [facility] Last Admin: 10/15/17 05:52 Dose: 50 mcg Losartan Potassium (Cozaar) 100 mg PO DAILY [facility] Last Admin: 10/15/17 10:01 Dose: 100 mg Ondansetron HCl (Zofran Inj) 4 mg IVP Q6H PRN PRN Reason: Nausea/Vomiting Last Admin: 10/10/17 21:10 Dose: 4 mg Pantoprazole Sodium (Protonix Inj) 40 mg IVP DAILY [facility] Last Admin: 10/15/17 10:00 Dose: 40 mg Polyethylene Glycol (Miralax) 17 gm PO BID PRN PRN Reason: Constipation Last Admin: 10/07/17 10:14 Dose: 17 gm Rosuvastatin Calcium (Crestor) 5 mg NG HS [facility] Last Admin: 10/14/17 21:52 Dose: 5 mg Saccharomyces Boulardii (Florastor) 250 mg NG BID [facility] Last Admin: 10/15/17 18:42 Dose: Not Given Vitamin A (Vitamin A & D Oint Ud Foilpak) 0.5 ea TOP Q4 [facility] Last Admin: 10/15/17 20:23 Dose: 0.5 ea - Labs Labs: 10/15/17 21:08 10/15/17 05:55 PT 16.3 SECONDS (9.7-12.2) H 10/15/17 15:33 INR 1.4 10/15/17 15:33 APTT 30 SECONDS (21-34) D 10/15/17 15:33
--- NOTE | 2017-10-15 23:42 | CON ---
DATE: 10/15/2017 TIME OF EVALUATION: 12:05 p.m. REASON FOR CONSULTATION: Change in mental status. CHIEF COMPLAINT: The patient was admitted on 10/06/2017 with history of chest pain and abdominal pain. During the workup, the patient was found to have intestinal obstruction. The patient had undergone exploratory small bowel resection and anastomosis. Following surgery, patient was having transient change in mental status. From neurological point of view, I was called in to evaluate her for further management. HISTORY OF PRESENT ILLNESS: Ms. Salma Black is a 77-year-old moderately obese right-handed female, brought into [facility] with a history of chest pain and abdominal pain. During her hospitalization, the patient was found to have small bowel obstruction and undergone exploratory abdominal surgery, undergone resection with anastomosis. The patient had respiratory distress, been intubated during and following the surgery. Patient did have transient change in mental status. From neurological point of view, I was called in. There is no obvious witnessed tonic-clonic activities associating with her problem. No history of loss of consciousness. No history of involuntary movements or bowel and bladder incontinence. PAST MEDICAL HISTORY: Hypertension, coronary artery disease, diabetes mellitus, cardiac arrhythmias, depression, hypercholesterolemia, hypothyroidism, chronic arthritis. PAST SURGICAL HISTORY: Patient did have bypass surgery in 2012, coronary stent placement and pacemaker for her atrial fibrillation. REVIEW OF SYSTEMS: A 12-point systems had been reviewed. From Neurology, change in mental status. ALLERGIES: THE PATIENT HAS NO KNOWN ALLERGIES. PERSONAL HISTORY: Denies smoking or alcohol use. MEDICATIONS: Aspirin, Cardizem, Cozaar, Crestor, Eliquis, Flagyl, Florastor, meropenem, MiraLax, insulin, Synthroid, Tylenol, vitamin A supplements. PHYSICAL EXAMINATION: VITAL SIGNS: Blood pressure 126/59, mean arterial pressure of 81, respiratory rate 16, temperature afebrile with pulse rate of 112. NEUROLOGICAL: The patient is on BiPAP at present. Good eye contact. Communicable in Latvian. She follows the commands. There are no right and left confusion. Cranial nerve examination: Visual field respond to visual threat. Pupils reactive to light. Extraocular movement grossly intact. No facial sensory deficit. No facial asymmetry. Hearing is normal. Tongue is midline. Good gag. Motor examination: On outstretched hand with eyes closed, no drift noted. Power is symmetric on either side. The deep tendon reflexes, biceps, brachialis, triceps, knee, ankle all are absent. Plantars are mute. Sensory examination: Respond to pain symmetrically on both sides. No cortical sensory loss. 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 Gait is deferred at this time. LABORATORY DATA: WBC 38.8, hemoglobin 12.6, hematocrit 38.2, platelet 267. Sodium 145, potassium 4.0, chloride 112, bicarbonate 22, creatinine 0.6, GFR more than 60, glucose 152, ammonia less than 9, total protein 5.6, globulin 2.7, procalcitonin 0.41. CONCLUSION: Ms. Salma Black has been presenting with episode of transient disorientation, all consistent from her clinical status, this could be a sundowning phenomena or it could be hypoperfusion syndrome with a transient ischemic process over posterior cerebral artery or partial complex seizures. Considering her risk factors including obesity, hypertension, diabetes mellitus, breast cancer, cardiac arrhythmias, and Eliquis are the multifactorial causes for her change in mental status, which all include transient ischemic attack/partial complex seizures. Other possible causes that should be considered could be metabolic encephalopathy, sundowning, and paraneoplastic syndrome with a history of breast cancer in the past. RECOMMENDATIONS: 1. CT of the head as requested when medically stable. 2. EEG. 3. Continue proper hydration, keep the mean arterial pressure around 100. No antiepileptic drug is needed. At present, to continue antiplatelets as she has been getting for stroke prophylaxis. The patient definitely needs a polysomnogram, which can be done as outpatient to rule in or rule out sleep-related breathing disorder, which could be confounding risk factors affecting her other systems. Patient will be followed closely with you. Stiven Mazariegos MD
[2017-10-16] MEDS: Vitamins A & D Oint UD Foilpak TOP SCH ×6 (01:09→20:00)
[2017-10-16] MEDS: Pantoprazole 80 MG in Sodium Chloride 0.9% 100 ML IVPB SCH (02:56)
[2017-10-16 03:24] LABS: ABG ALLEN TEST POS; ARTERIAL BLOOD GAS HCO3 22.7 mmol/L (21-28); ARTERIAL BLOOD GAS O2 SAT 98.7 % (95-98); ARTERIAL BLOOD GAS PCO2 41 mm/Hg (35-45); ARTERIAL BLOOD GAS PH 7.35 (7.35-7.45); ARTERIAL BLOOD GAS PO2 281 mm/Hg (80-100); ARTERIAL BLOOD GAS TCO2 23.9 mmol/L (22-28)
[2017-10-16 03:27] LABS: BASO % 0.3 % (0.0-2.0); EOS # 0.1 K/uL (0.0-0.7); EOS % 0.9 % (0.0-4.0); HEMOGLOBIN 11.3 g/dL (11.0-16.0); LYMPH # 1.8 K/uL (1.0-4.3); LYMPH % 10.9 % (20.0-40.0); MEAN CELL VOLUME 88.2 fL (81.0-99.0); MEAN CORPUSCULAR HEMOGLOBIN 28.7 pg (27.0-31.0); MEAN CORPUSCULAR HGB CONC 32.6 g/dL (33.0-37.0); MEAN PLATELET VOLUME 10.3 fL (7.2-11.7); MONO # 1.2 K/uL (0.0-0.8); MONO % 7.2 % (0.0-10.0); NEUT # 13.2 K/uL (1.8-7.0); NEUT % 80.7 % (50.0-75.0); NRBC % 0.1 % (0.0-2.0); RBC 3.92 Mil/uL (3.80-5.20); RED CELL DISTRIBUTION WIDTH 15.2 % (11.5-14.5); WHITE BLOOD COUNT 16.3 K/uL (4.8-10.8)
--- NOTE | 2017-10-16 04:51 | CT ---
EXAM: CT Angiography Abdomen and Pelvis With Intravenous Contrast EXAM DATE/TIME: 10/15/2017 8:36 PM CLINICAL HISTORY: 77 years old, female; Signs and symptoms; Other: Gi bleed; Additional info: Gi bleeding TECHNIQUE: Axial computed tomographic angiography images of the abdomen and pelvis with intravenous contrast. All CT scans at this facility use one or more dose reduction techniques, viz.: automated exposure control; ma/kV adjustment per patient size (including targeted exams where dose is matched to indication; i.e. head); or iterative reconstruction technique. MIP reconstructed images were created and reviewed. Coronal and sagittal reformatted images were created and reviewed. CONTRAST: 100 mL of [id number] administered intravenously. COMPARISON: CT - ABD PELVIS PO CONTRAST ONLY 2017-10-07 19:51 FINDINGS: There are small bilateral pleural effusions with associated compressive atelectasis. Again seen is a large hepatic cyst measuring approximately 17 x 12.5 cm and a smaller hepatic cyst measuring 4 cm in diameter. There is a small amount of perihepatic fluid that is new from prior. The spleen, gallbladder, pancreas and adrenals are normal. Stable nonspecific mild perinephric stranding. The previously seen portal venous air, mesenteric air, and pneumatosis has resolved. There are surgical sutures in a left upper quadrant small bowel loop. Presumably the previously seen ischemic/necrotic bowel loops have been removed. There is a change in small bowel caliber at the anastomosis with fluid-filled bowel measuring up to 4.2 cm proximal to the anastomosis measuring 2 cm distal to the anastomosis. There is prominent fold and wall enhancement of bowel loops surrounding the anastomosis and also in bowel loops of the deep pelvis. There is fluid and stranding surrounding the anastomosis. Fluid is present in the pelvis, a normal finding in a patient of this age. Air in the urinary bladder without evidence of Renee placement. Clinical correlation recommended. There are atherosclerotic changes of the aorta with extensive calcification. Celiac axis and SMA are patent. There is probable identification and opacified DOT on series 3 images 98 through 106. Please note that the slice thickness utilized 2.5 mm. IMPRESSION: There is a significant caliber change at the small bowel anastomosis in the left upper quadrant which may be a chronic postoperative finding versus representing partial obstruction. In addition to the possible partial obstruction, there is prominent wall and fold enhancement of multiple small bowel loops suggesting enteritis.
--- NOTE | 2017-10-16 05:04 | RAD ---
EXAM: XR Chest, 1 View EXAM DATE/TIME: 10/16/2017 3:03 AM CLINICAL HISTORY: 77 years old, female; Signs and symptoms; Shortness of breath; Additional info: Possible intubation/sob TECHNIQUE: Frontal view of the chest. COMPARISON: No relevant prior studies available. FINDINGS: Sternotomy wires. Pacemaker. There is a central venous catheter with tip overlying the proximal superior vena cava. Prominent cardiac silhouette although partially due to technique. Minimal bibasilar platelike atelectasis. No focal infiltrates. No priors provided. IMPRESSION: No acute findings.
[2017-10-16] MEDS: Levothyroxine 50 MCG TAB PO SCH (05:57)
[2017-10-16] MEDS: Meropenem 1 GM in Sodium Chloride 0.9% 100 ML IVPB SCH ×3 (06:16→21:45)
[2017-10-16] MEDS: metroNIDAZOLE IV 500 mg/100 ml 500 MG/100 ML BAG IVPB SCH ×3 (06:18→21:50)
[2017-10-16 06:39] LABS: BASO # 0.1 K/uL (0.0-0.2); BASO % 0.3 % (0.0-2.0); EOS # 0.1 K/uL (0.0-0.7); EOS % 0.5 % (0.0-4.0); HEMOGLOBIN 11.5 g/dL (11.0-16.0); LYMPH # 1.4 K/uL (1.0-4.3); LYMPH % 7.4 % (20.0-40.0); MEAN CELL VOLUME 89.2 fL (81.0-99.0); MEAN CORPUSCULAR HGB CONC 32.5 g/dL (33.0-37.0); MEAN PLATELET VOLUME 9.8 fL (7.2-11.7); MONO % 5.6 % (0.0-10.0); NEUT # 15.7 K/uL (1.8-7.0); NEUT % 86.2 % (50.0-75.0); PLATELET COUNT 333 K/uL (130-400); RBC 3.98 Mil/uL (3.80-5.20); RED CELL DISTRIBUTION WIDTH 15.6 % (11.5-14.5); WHITE BLOOD COUNT 18.2 K/uL (4.8-10.8)
[2017-10-16 06:50] LABS: ALB/GLOB RATIO 0.9 (1.0-2.1); ALBUMIN 2.5 g/dL (3.5-5.0); ALT/SGPT 25 U/L (9-52); AST/SGOT 21 U/L (14-36); BLOOD UREA NITROGEN 35 mg/dL (7-17); CALCIUM 8.3 mg/dl (8.6-10.4); GFR AFRICAN-AMERICAN > 60; GFR NON-AFRICAN AMERICAN 54
--- NOTE | 2017-10-16 07:01 | CP.PCM.PN ---
Subjective - Date & Time of Evaluation Date of Evaluation: 10/16/17 Time of Evaluation: 04:00 - Subjective Subjective: Patient evaluated for increased work of breathing, denied any chest pain, abd pain, respirations were shallow, slight hoarseness in voice, patient was extubated 2 day ago. Abg on NRB po2 of 280, ph 7.35, pco2 41, lactate 1.7, CXR no acute changes. Evaluated CT done earlier in the night, report not available at the time felt dilated jejunal loop next to anastomosis site with some mucosal inflammation. Patient was also at the time evaluated by surgery resident. Abd was not acute. Patient placed on bipap 12/6/60%, work of breathing improved, patient was more calm, still being observed with extra resp support, need for intubation, f/u abg. Also surgery to reassess for possible leak vs obstruction due to dilated loop or small bowel. Objective - Vital Signs/Intake and Output Vital Signs (last 24 hours): Temp Pulse Resp BP Pulse Ox 97.5 F L 90 16 121/59 L 99 10/16/17 04:00 10/16/17 06:07 10/16/17 06:07 10/16/17 06:07 10/16/17 06:07 Intake and Output: 10/15/17 10/16/17 18:59 06:59 Intake Total 755 900 Output Total 200 300 Balance 555 600 - Medications Medications: Current Medications Acetaminophen (Tylenol 325mg Tab) 650 mg PO Q6 PRN PRN Reason: Fever >100.4 F Amiodarone HCl (Cordarone) 400 mg PO BID [facility] Last Admin: 10/15/17 18:42 Dose: Not Given Diltiazem HCl (Cardizem) 90 mg PO Q6 [facility] Last Admin: 10/16/17 05:56 Dose: Not Given Metronidazole (Flagyl) 500 mg in 100 mls @ 100 mls/hr IVPB Q8 [facility] Last Admin: 10/16/17 06:18 Dose: 100 mls/hr Meropenem 1 gm/ Sodium (Chloride) 100 mls @ 100 mls/hr IVPB Q8H TIM Last Admin: 10/16/17 06:16 Dose: 100 mls/hr Pantoprazole Sodium 80 mg/ (Sodium Chloride) 100 mls @ 10 mls/hr IVPB .Q10H [facility] PRN Reason: 8 MG/HR Last Admin: 10/16/17 02:56 Dose: 10 mls/hr Diltiazem HCl 125 mg/ Dextrose 125 mls @ 5 mls/hr IV .Q24H TIM; 5 MG/HR PRN Reason: Protocol Last Admin: 10/15/17 20:09 Dose: 5 mg/hr, 5 mls/hr Insulin Human Regular (Novolin R) 0 unit SC ACHS TIM PRN Reason: Protocol Last Admin: 10/15/17 22:39 Dose: Not Given Levothyroxine Sodium (Synthroid) 50 mcg PO DAILY@0630 [facility] Last Admin: 10/16/17 05:57 Dose: Not Given Losartan Potassium (Cozaar) 100 mg PO DAILY [facility] Last Admin: 10/15/17 10:01 Dose: 100 mg Ondansetron HCl (Zofran Inj) 4 mg IVP Q6H PRN PRN Reason: Nausea/Vomiting Last Admin: 10/10/17 21:10 Dose: 4 mg Pantoprazole Sodium (Protonix Inj) 40 mg IVP DAILY [facility] Last Admin: 10/15/17 10:00 Dose: 40 mg Polyethylene Glycol (Miralax) 17 gm PO BID PRN PRN Reason: Constipation Last Admin: 10/07/17 10:14 Dose: 17 gm Rosuvastatin Calcium (Crestor) 5 mg NG HS [facility] Last Admin: 10/15/17 22:39 Dose: Not Given Saccharomyces Boulardii (Florastor) 250 mg NG BID [facility] Last Admin: 10/15/17 18:42 Dose: Not Given Vitamin A (Vitamin A & D Oint Ud Foilpak) 0.5 ea TOP Q4 [facility] Last Admin: 10/16/17 06:17 Dose: 0.5 ea - Labs Labs: 10/16/17 06:23 10/16/17 06:24 PT 16.3 SECONDS (9.7-12.2) H 10/15/17 15:33 INR 1.4 10/15/17 15:33 APTT 30 SECONDS (21-34) D 10/15/17 15:33
--- NOTE | 2017-10-16 08:00 | CP.PCM.PN ---
<Jane Faria - Last Filed: 10/16/17 09:22> Subjective - Date & Time of Evaluation Date of Evaluation: 10/16/17 Time of Evaluation: 07:15 - Subjective Subjective: GI Fellow PGY4 Progress Note Pt seen and evaluated at bedside, pt currently on BIPAP for SOB overnight. Pt AAOx3, denies any abdominal pain. Per nursing pt has 3 episodes of bright red blood per rectum yesterday and overnight has 3 episodes of black stool. Pt also received 1U of PRBCs. Pt's OAC eliquis and aspirin on hold, last dose was . ROS: A 12pt ROS was negative except as above. Objective - Vital Signs/Intake and Output Vital Signs (last 24 hours): Temp Pulse Resp BP Pulse Ox 97.5 F L 97 H 22 138/54 L 98 10/16/17 04:00 10/16/17 07:07 10/16/17 07:07 10/16/17 07:07 10/16/17 07:07 Intake and Output: 10/16/17 10/16/17 06:59 18:59 Intake Total 900 15 Output Total 300 Balance 600 15 - Medications Medications: Current Medications Acetaminophen (Tylenol 325mg Tab) 650 mg PO Q6 PRN PRN Reason: Fever >100.4 F Amiodarone HCl (Cordarone) 400 mg PO BID TIM Last Admin: 10/15/17 18:42 Dose: Not Given Diltiazem HCl (Cardizem) 90 mg PO Q6 TIM Last Admin: 10/16/17 05:56 Dose: Not Given Metronidazole (Flagyl) 500 mg in 100 mls @ 100 mls/hr IVPB Q8 TIM Last Admin: 10/16/17 06:18 Dose: 100 mls/hr Meropenem 1 gm/ Sodium (Chloride) 100 mls @ 100 mls/hr IVPB Q8H TIM Last Admin: 10/16/17 06:16 Dose: 100 mls/hr Pantoprazole Sodium 80 mg/ (Sodium Chloride) 100 mls @ 10 mls/hr IVPB .Q10H TIM PRN Reason: 8 MG/HR Last Admin: 10/16/17 02:56 Dose: 10 mls/hr Diltiazem HCl 125 mg/ Dextrose 125 mls @ 5 mls/hr IV .Q24H TIM; 5 MG/HR PRN Reason: Protocol Last Admin: 10/15/17 20:09 Dose: 5 mg/hr, 5 mls/hr Insulin Human Regular (Novolin R) 0 unit SC ACHS ITM PRN Reason: Protocol Last Admin: 10/15/17 22:39 Dose: Not Given Levothyroxine Sodium (Synthroid) 50 mcg PO DAILY@0630 [facility] Last Admin: 10/16/17 05:57 Dose: Not Given Losartan Potassium (Cozaar) 100 mg PO DAILY [facility] Last Admin: 10/15/17 10:01 Dose: 100 mg Ondansetron HCl (Zofran Inj) 4 mg IVP Q6H PRN PRN Reason: Nausea/Vomiting Last Admin: 10/10/17 21:10 Dose: 4 mg Pantoprazole Sodium (Protonix Inj) 40 mg IVP DAILY [facility] Last Admin: 10/15/17 10:00 Dose: 40 mg Polyethylene Glycol (Miralax) 17 gm PO BID PRN PRN Reason: Constipation Last Admin: 10/07/17 10:14 Dose: 17 gm Rosuvastatin Calcium (Crestor) 5 mg NG HS [facility] Last Admin: 10/15/17 22:39 Dose: Not Given Saccharomyces Boulardii (Florastor) 250 mg NG BID [facility] Last Admin: 10/15/17 18:42 Dose: Not Given Vitamin A (Vitamin A & D Oint Ud Foilpak) 0.5 ea TOP Q4 [facility] Last Admin: 10/16/17 06:17 Dose: 0.5 ea - Labs Labs: 10/16/17 06:23 10/16/17 06:24 PT 16.3 SECONDS (9.7-12.2) H 10/15/17 15:33 INR 1.4 10/15/17 15:33 APTT 30 SECONDS (21-34) D 10/15/17 15:33 - Constitutional Appears: In Acute Distress, Chronically Ill - Head Exam Head Exam: ATRAUMATIC, NORMAL INSPECTION, NORMOCEPHALIC - Eye Exam Eye Exam: EOMI, Normal appearance, PERRL Pupil Exam: PERRL - ENT Exam ENT Exam: Mucous Membranes Dry - Neck Exam Neck Exam: Full ROM - Respiratory Exam Respiratory Exam: Rhonchi, Respiratory Distress Additional comments: on BIPAP - Cardiovascular Exam Cardiovascular Exam: Tachycardia - GI/Abdominal Exam GI & Abdominal Exam: Soft, Normal Bowel Sounds. absent: Distended, Guarding, Tenderness, Organomegaly Additional comments: Surgical scar with alirio, healing - Extremities Exam Extremities Exam: Normal Inspection - Back Exam Back Exam: NORMAL INSPECTION - Neurological Exam Neurological Exam: Alert, Awake - Psychiatric Exam Psychiatric exam: Normal Affect, Normal Mood - Skin Skin Exam: Dry, Intact, Pallor, Warm Assessment and Plan - Assessment and Plan (Free Text) Assessment: This is a 77 year old female with history of HTN, DM, CAD/CABG, breast cancer, hypothyroidism, aortic stenosis, bradycardia/SSS s/p PPM who was admitted to hospital for evaluation of chest pain and vomiting. 1. Rectal Bleeding 2. NSTEMI s/p cardiac cath RCA 50% stenosis 3. Small bowel ischmeic, necrosis s/p small bowel resection and primary anastamosis POD#7 4. Hepatic cysts 5. VDRF s/p extubation 6. UTI Plan: -Continue supportive care with respiratory status -No active GI bleeding at this time, rectal exam with brown stool-no melena or hematochezia -Hgb stable at this time at 11.5 s/p 1 U PRBCs, hemodynamically stable, continue to monitor H/H and transfuse as needed -Continue IV PPI daily, no drip needed -CT Angio reviewed with no source of active GI bleeding -No plan for emergent endoscopic evaluation at this time -Continue to hold OAC and antiplatelet therapy -Advance to clear liquid diet -Continue IV abx for UTI, ID following -Small bowel ischemia s/p resection POD#7, surgery following -CAD with cardiology following, will need to discuss restarting OAC and anti- platelet therapy -Hepatic cysts are benign, no hemangioma on imaging with no concern for bleeding -Will continue to follow pt closely <Andrew Boland - Last Filed: 10/16/17 09:31> Objective - Vital Signs/Intake and Output Vital Signs (last 24 hours): Temp Pulse Resp BP Pulse Ox 97.4 F L 97 H 22 111/54 L 98 10/16/17 08:00 10/16/17 08:07 10/16/17 08:07 10/16/17 08:07 10/16/17 08:07 Intake and Output: 10/16/17 10/16/17 06:59 18:59 Intake Total 900 20 Output Total 300 Balance 600 20 - Medications Medications: Current Medications Acetaminophen (Tylenol 325mg Tab) 650 mg PO Q6 PRN PRN Reason: Fever >100.4 F Amiodarone HCl (Cordarone) 400 mg PO BID [facility] Last Admin: 10/15/17 18:42 Dose: Not Given Diltiazem HCl (Cardizem) 90 mg PO Q6 [facility] Last Admin: 10/16/17 05:56 Dose: Not Given Metronidazole (Flagyl) 500 mg in 100 mls @ 100 mls/hr IVPB Q8 [facility] Last Admin: 10/16/17 06:18 Dose: 100 mls/hr Meropenem 1 gm/ Sodium (Chloride) 100 mls @ 100 mls/hr IVPB Q8H [facility] Last Admin: 10/16/17 06:16 Dose: 100 mls/hr Diltiazem HCl 125 mg/ Dextrose 125 mls @ 5 mls/hr IV .Q24H TIM; 5 MG/HR PRN Reason: Protocol Last Admin: 10/15/17 20:09 Dose: 5 mg/hr, 5 mls/hr Insulin Human Regular (Novolin R) 0 unit SC ACHS [facility] PRN Reason: Protocol Last Admin: 10/16/17 08:17 Dose: Not Given Levothyroxine Sodium (Synthroid) 50 mcg PO DAILY@0630 [facility] Last Admin: 10/16/17 05:57 Dose: Not Given Losartan Potassium (Cozaar) 100 mg PO DAILY [facility] Last Admin: 10/15/17 10:01 Dose: 100 mg Ondansetron HCl (Zofran Inj) 4 mg IVP Q6H PRN PRN Reason: Nausea/Vomiting Last Admin: 10/10/17 21:10 Dose: 4 mg Pantoprazole Sodium (Protonix Inj) 40 mg IVP DAILY [facility] Last Admin: 10/16/17 09:08 Dose: Not Given Polyethylene Glycol (Miralax) 17 gm PO BID PRN PRN Reason: Constipation Last Admin: 10/07/17 10:14 Dose: 17 gm Rosuvastatin Calcium (Crestor) 5 mg NG HS [facility] Last Admin: 10/15/17 22:39 Dose: Not Given Saccharomyces Boulardii (Florastor) 250 mg NG BID [facility] Last Admin: 10/15/17 18:42 Dose: Not Given Vitamin A (Vitamin A & D Oint Ud Foilpak) 0.5 ea TOP Q4 TIM Last Admin: 10/16/17 08:30 Dose: 0.5 ea - Labs Labs: 10/16/17 06:23 10/16/17 06:24 PT 16.3 SECONDS (9.7-12.2) H 10/15/17 15:33 INR 1.4 10/15/17 15:33 APTT 30 SECONDS (21-34) D 10/15/17 15:33 Attending/Attestation - Attestation I have personally seen and examined this patient.: Yes I have fully participated in the care of the patient.: Yes I have reviewed all pertinent clinical information, including history, physical exam and plan: Yes Notes (Text): 10/16/17 09:23 I have seen and examined patient with GI fellow. No acute events overnight, she remains in critical care unit on BIPAP therapy. No further rectal bleeding episodes since yesterday afternoon, nursing reports "dark" colored stool overnight. She denies abdominal pain, nausea, vomiting. Review of vitals from today shows tachycardia. DM / HTN CAD/CABG SSS s/ PPM New onset Atrial fibrillation - Eliquis held Aortic stenosis History of breast cancer Hepatic cyst Hospital course complicated by development of small bowel ischemia s/p surgical resection Rectal bleeding - rectal exam performed today shows soft brown stool in rectal vault, no palpable lesions CT angiography reviewed by me showing no features of acute bleeding UTI - Clear liquid diet as tolerated - H/H stable, s/p PRBC transfusion, continue to monitor - Continue with antibiotic therapy - Continue with PPI therapy - Patient currently does not require endoscopic evaluation, though eventually would benefit. Given current clinical condition with significant cardiac risk factors for procedure with anesthesia would favor conservative approach and continued close observation.
[2017-10-16] MEDS: (Novolin R) Insulin Human Regular 100 units/ml vial SC SCH ×4 (08:17→21:46)
[2017-10-16 08:29] LABS: ARTERIAL BLOOD GAS HCO3 23.1 mmol/L (21-28); ARTERIAL BLOOD GAS O2 SAT 97.9 % (95-98); ARTERIAL BLOOD GAS PCO2 42 mm/Hg (35-45); ARTERIAL BLOOD GAS PH 7.35 (7.35-7.45); ARTERIAL BLOOD GAS PO2 117 mm/Hg (80-100); ARTERIAL BLOOD GAS TCO2 24.5 mmol/L (22-28)
[2017-10-16 08:47] LABS: ANISOCYTOSIS SLIGHT; BANDS 2 % (0-2); HYPOCHROMIC SLIGHT; LYMPHOCYTE 7 % (20-40); MONOCYTE 7 % (0-10); NEUTROPHIL 84 % (50-75); PLATELET ESTIMATE NORMAL (NORMAL); POLYCHROMIC SLIGHT; TOTAL CELLS COUNTED 100
[2017-10-16 08:48] LABS: LARGE PLATELETS PRESENT; OVALOCYTES SLIGHT; POIKILOCYTOSIS SLIGHT
--- NOTE | 2017-10-16 09:55 | CP.CCUPN ---
CCU Subjective - Physician Review Events Since Last Encounter (Free Text): 10/16/17 09:55 77-year-old female history of hypertension, CAD, COPD, breast cancer status post lumpectomy and radiation, diabetes and hypothyroidism severe aortic stenosis. Patient underwent a cardiac cath, on 10/06/2017, and found to have patent bypass , 50% stenosed RCA. Following that patient developed ischemic small bowel, and given to small bowel resection, and surgery. Postoperatively patient is intubated. She was extubated 2 days ago She had intermittent supraventricular tachycardia, being controlled with medications. After extubation patient developed large amount of rectal bleeding. Received blood transfusion. Anti-coagulation is on hold Patient is now on BiPAP. Mild respiratory distress noted. Vital signs noted. Saturation 98%. A repeat blood gas analysis revealed nonspecific. Adequate oxygenation noted. Chest bilateral diffuse skin wheezing noted. Abdomen nontender. Postoperative Edema noted Labs reviewed CT scan of the abdomen and pelvis including Likely patient has ileus pattern Assessment and recommendation: 77-year-old Hypertension CAD COPD breast cancer lumpectomy radiation diabetes hypothyroidism severe aortic stenosis. Stable CAD no. Admitted to the intensive care unit following ischemic small bowel, and is status post resection. Patient is currently progressing slowly. Rectal bleeding. Likely secondary to anticoagulation. Closely monitor the patient. Respiratory support. We'll hold feeding for now. Hemoglobin monitoring. The patient CCU Objective - Vital Signs / Intake & Output Vital Signs (Last 4 hours): Vital Signs Temp Pulse Resp BP Pulse Ox 10/16/17 08:07 97 H 22 111/54 L 98 10/16/17 08:00 97.4 F L 119 H 26 H 98 10/16/17 07:07 97 H 22 138/54 L 98 10/16/17 07:00 90 10/16/17 06:07 90 16 121/59 L 99 10/16/17 06:00 91 H 20 96 Intake and Output (Last 8hrs): Intake & Output 10/15/17 10/16/17 10/16/17 22:59 06:59 14:59 Intake Total 600 420 20 Output Total 300 Balance 300 420 20 Weight 187 lb Intake: Intake, IV Amount 275 420 20 Left Distal Port Internal 15 40 10 Jugular Left Medial Port Internal 60 80 10 Jugular Left Proximal Port 200 300 0 Internal Jugular Oral 0 0 Blood Product 325 Red Blood Cells Cpd As1 325 Lr Unit [id number] Output: Urine/Stool Mix 300 Other: # Voids Urine, Voided 1 0 # Bowel Movements 1 0 - Physical Exam Head: Positive for: Atraumatic, Normocephalic Pupils: Positive for: PERRL Extroacular Muscles: Positive for: EOMI Conjunctiva: Positive for: Normal Mouth: Positive for: Moist Mucous Membranes Respiratory/Chest: Positive for: Clear to Auscultation, Good Air Exchange Cardiovascular: Positive for: Regular Rate and Rhythm, Murmurs, Normal S1, S2 Abdomen: Positive for: Normal Bowel Sounds. Negative for: Tenderness, Distention, Peritoneal Signs Skin: Positive for: Warm Psychiatric: Positive for: Alert - Medications Active Medications: Active Medications Generic Name Dose Route Start Last Admin Trade Name Freq PRN Reason Stop Dose Admin Acetaminophen 650 mg 10/11/17 10:17 Tylenol 325mg Tab PO Q6 PRN Fever >100.4 F Amiodarone HCl 400 mg 10/15/17 13:47 10/15/17 18:42 Cordarone PO Not Given BID TIM Diltiazem HCl 90 mg 10/15/17 12:00 10/16/17 05:56 Cardizem PO Not Given Q6 TIM Metronidazole 500 mg in 100 mls @ 100 mls/hr 10/07/17 22:00 10/16/17 06:18 Flagyl IVPB 100 mls/hr Q8 TIM Administration Meropenem 1 gm/ Sodium 100 mls @ 100 mls/hr 10/10/17 14:00 10/16/17 06:16 Chloride IVPB 100 mls/hr Q8H TIM Administration Diltiazem HCl 125 mg/ Dextrose 125 mls @ 5 mls/hr 10/15/17 19:00 10/15/17 20: 09 IV 5 mg/hr .Q24H TIM 5 mls/hr Protocol Administration 5 MG/HR Insulin Human Regular 0 unit 10/15/17 11:30 10/16/17 08:17 Novolin R SC Not Given ACHS [facility] Protocol Levothyroxine Sodium 50 mcg 10/12/17 06:30 10/16/17 05:57 Synthroid PO Not Given DAILY@0630 TIM Losartan Potassium 100 mg 10/12/17 10:00 10/15/17 10:01 Cozaar PO 100 mg DAILY TIM Administration Ondansetron HCl 4 mg 10/07/17 19:28 10/10/17 21:10 Zofran Inj IVP 4 mg Q6H PRN Administration Nausea/Vomiting Pantoprazole Sodium 40 mg 10/08/17 10:00 10/15/17 10:00 Protonix Inj IVP 40 mg DAILY TIM Administration Polyethylene Glycol 17 gm 10/06/17 15:08 10/07/17 10:14 Miralax PO 17 gm BID PRN Administration Constipation Rosuvastatin Calcium 5 mg 10/11/17 22:00 10/15/17 22:39 Crestor NG Not Given HS TIM Saccharomyces Boulardii 250 mg 10/10/17 11:15 10/15/17 18:42 Florastor NG Not Given BID TIM Vitamin A 0.5 ea 10/11/17 20:00 10/16/17 08:30 Vitamin A & D Oint Ud Foilpak TOP 0.5 ea Q4 TIM Administration - Patient Studies Lab Studies: Lab Studies 10/16/17 10/16/17 10/16/17 Range/Units 08:20 07:33 06:24 WBC (4.8-10.8) K/uL RBC (3.80-5.20) Mil/uL Hgb (11.0-16.0) g/dL Hct (34.0-47.0) % MCV (81.0-99.0) fL MCH (27.0-31.0) pg MCHC (33.0-37.0) g/dL RDW (11.5-14.5) % Plt Count (130-400) K/uL MPV (7.2-11.7) fL Neut % (Auto) (50.0-75.0) % Lymph % (Auto) (20.0-40.0) % [place] % (Auto) (0.0-10.0) % Eos % (Auto) (0.0-4.0) % Baso % (Auto) (0.0-2.0) % Neut # (1.8-7.0) K/uL Lymph # (1.0-4.3) K/uL [place] # (0.0-0.8) K/uL Eos # (0.0-0.7) K/uL Baso # (0.0-0.2) K/uL Neutrophils % (Manual) (50-75) % Band Neutrophils % (0-2) % Lymphocytes % (Manual) (20-40) % Monocytes % (Manual) (0-10) % Platelet Estimate (NORMAL) Large Platelets Polychromasia Hypochromasia (manual) Poikilocytosis (manual Anisocytosis (manual) Ovalocytes PT (9.7-12.2) SECONDS INR APTT (21-34) SECONDS Fibrinogen (200-400) mg/dL Puncture Site Lb pCO2 42 (35-45) mm/Hg pO2 117 H (80-100) mm/Hg HCO3 23.1 (21-28) mmol/L ABG pH 7.35 (7.35-7.45) ABG Total CO2 24.5 (22-28) mmol/L ABG O2 Saturation 97.9 (95-98) % ABG Base Excess -2.4 L (-2.0-3.0) mmol/L Dayron Test Na ABG Potassium 4.4 (3.6-5.2) mmol/L A-a O2 Difference 258.0 mm/Hg Respiratory Index 2.2 Sodium 148.0 145 (132-148) mmol/l Chloride 119.0 H 113 H (98-107) mmol/L Glucose 157 H (65-105) mg/dl Lactate 1.4 (0.7-2.1) mmol/L FiO2 60.0 % Inspiratory BiPAP 12 Expiratory BiPAP 5 Crit Value Called To Dr cowan Crit Value Called By Devonte walters salvage engineer Crit Value Read Back Y Blood Gas Notified Time 830 Potassium 4.6 (3.6-5.2) mmol/L Carbon Dioxide 24 (22-30) mmol/L Anion Gap 12 (10-20) BUN 35 H (7-17) mg/dL Creatinine 1.0 (0.7-1.2) mg/dL Est GFR ( Amer) > 60 Est GFR (Non-Af Amer) 54 POC Glucose (mg/dL) 155 H (65-110) mg/dL Random Glucose 152 H (65-105) mg/dL Calcium 8.3 L (8.6-10.4) mg/dl Total Bilirubin 0.5 (0.2-1.3) mg/dL AST 21 (14-36) U/L ALT 25 (9-52) U/L Alkaline Phosphatase 93 (38-126) U/L Total Protein 5.3 L (6.3-8.3) g/dL Albumin 2.5 L (3.5-5.0) g/dL Globulin 2.8 (2.2-3.9) gm/dL Albumin/Globulin Ratio 0.9 L (1.0-2.1) Procalcitonin (0.19-0.49) NG/ML Arterial Blood Potassium 4.4 (3.6-5.2) mmol/L Blood Type Antibody Screen 10/16/17 10/16/17 10/16/17 Range/Units 06:23 03:15 03:13 WBC 18.2 H 16.3 H (4.8-10.8) K/uL RBC 3.98 3.92 (3.80-5.20) Mil/uL Hgb 11.5 11.3 (11.0-16.0) g/dL Hct 35.5 34.6 (34.0-47.0) % MCV 89.2 88.2 (81.0-99.0) fL MCH 29.0 28.7 (27.0-31.0) pg MCHC 32.5 L 32.6 L (33.0-37.0) g/dL RDW 15.6 H 15.2 H (11.5-14.5) % Plt Count 333 317 (130-400) K/uL MPV 9.8 10.3 (7.2-11.7) fL Neut % (Auto) 86.2 H 80.7 H (50.0-75.0) % Lymph % (Auto) 7.4 L 10.9 L (20.0-40.0) % [place] % (Auto) 5.6 7.2 (0.0-10.0) % Eos % (Auto) 0.5 0.9 (0.0-4.0) % Baso % (Auto) 0.3 0.3 (0.0-2.0) % Neut # 15.7 H 13.2 H (1.8-7.0) K/uL Lymph # 1.4 1.8 (1.0-4.3) K/uL [place] # 1.0 H 1.2 H (0.0-0.8) K/uL Eos # 0.1 0.1 (0.0-0.7) K/uL Baso # 0.1 0.0 (0.0-0.2) K/uL Neutrophils % (Manual) 84 H (50-75) % Band Neutrophils % 2 (0-2) % Lymphocytes % (Manual) 7 L (20-40) % Monocytes % (Manual) 7 (0-10) % Platelet Estimate Normal (NORMAL) Large Platelets Present Polychromasia Slight Hypochromasia (manual) Slight Poikilocytosis (manual Slight Anisocytosis (manual) Slight Ovalocytes Slight PT (9.7-12.2) SECONDS INR APTT (21-34) SECONDS Fibrinogen (200-400) mg/dL Puncture Site Rr pCO2 41 (35-45) mm/Hg pO2 281 H (80-100) mm/Hg HCO3 22.7 (21-28) mmol/L ABG pH 7.35 (7.35-7.45) ABG Total CO2 23.9 (22-28) mmol/L ABG O2 Saturation 98.7 H (95-98) % ABG Base Excess -2.9 L (-2.0-3.0) mmol/L Dayron Test Pos ABG Potassium 4.4 (3.6-5.2) mmol/L A-a O2 Difference 381.0 mm/Hg Respiratory Index 1.4 Sodium 148.0 (132-148) mmol/l Chloride 119.0 H (98-107) mmol/L Glucose 144 H (65-105) mg/dl Lactate 1.7 (0.7-2.1) mmol/L FiO2 100.0 % Inspiratory BiPAP Expiratory BiPAP Crit Value Called To Crit Value Called By Crit Value Read Back Blood Gas Notified Time Potassium (3.6-5.2) mmol/L Carbon Dioxide (22-30) mmol/L Anion Gap (10-20) BUN (7-17) mg/dL Creatinine (0.7-1.2) mg/dL Est GFR ( Amer) Est GFR (Non-Af Amer) POC Glucose (mg/dL) (65-110) mg/dL Random Glucose (65-105) mg/dL Calcium (8.6-10.4) mg/dl Total Bilirubin (0.2-1.3) mg/dL AST (14-36) U/L ALT (9-52) U/L Alkaline Phosphatase (38-126) U/L Total Protein (6.3-8.3) g/dL Albumin (3.5-5.0) g/dL Globulin (2.2-3.9) gm/dL Albumin/Globulin Ratio (1.0-2.1) Procalcitonin (0.19-0.49) NG/ML Arterial Blood Potassium 4.4 (3.6-5.2) mmol/L Blood Type Antibody Screen 10/15/17 10/15/17 10/15/17 Range/Units 21:14 21:08 16:12 WBC 15.4 H (4.8-10.8) K/uL RBC 4.11 (3.80-5.20) Mil/uL Hgb 12.0 (11.0-16.0) g/dL Hct 36.3 (34.0-47.0) % MCV 88.4 (81.0-99.0) fL MCH 29.2 (27.0-31.0) pg MCHC 33.0 (33.0-37.0) g/dL RDW 15.3 H (11.5-14.5) % Plt Count 316 (130-400) K/uL MPV 9.7 (7.2-11.7) fL Neut % (Auto) 80.0 H (50.0-75.0) % Lymph % (Auto) 10.7 L (20.0-40.0) % [place] % (Auto) 7.4 (0.0-10.0) % Eos % (Auto) 1.3 (0.0-4.0) % Baso % (Auto) 0.6 (0.0-2.0) % Neut # 12.3 H (1.8-7.0) K/uL Lymph # 1.7 (1.0-4.3) K/uL [place] # 1.1 H (0.0-0.8) K/uL Eos # 0.2 (0.0-0.7) K/uL Baso # 0.1 (0.0-0.2) K/uL Neutrophils % (Manual) (50-75) % Band Neutrophils % (0-2) % Lymphocytes % (Manual) (20-40) % Monocytes % (Manual) (0-10) % Platelet Estimate (NORMAL) Large Platelets Polychromasia Hypochromasia (manual) Poikilocytosis (manual Anisocytosis (manual) Ovalocytes PT (9.7-12.2) SECONDS INR APTT (21-34) SECONDS Fibrinogen (200-400) mg/dL Puncture Site pCO2 (35-45) mm/Hg pO2 (80-100) mm/Hg HCO3 (21-28) mmol/L ABG pH (7.35-7.45) ABG Total CO2 (22-28) mmol/L ABG O2 Saturation (95-98) % ABG Base Excess (-2.0-3.0) mmol/L Dayron Test ABG Potassium (3.6-5.2) mmol/L A-a O2 Difference mm/Hg Respiratory Index Sodium (132-148) mmol/l Chloride (98-107) mmol/L Glucose (65-105) mg/dl Lactate (0.7-2.1) mmol/L FiO2 % Inspiratory BiPAP Expiratory BiPAP Crit Value Called To Crit Value Called By Crit Value Read Back Blood Gas Notified Time Potassium (3.6-5.2) mmol/L Carbon Dioxide (22-30) mmol/L Anion Gap (10-20) BUN (7-17) mg/dL Creatinine (0.7-1.2) mg/dL Est GFR ( Amer) Est GFR (Non-Af Amer) POC Glucose (mg/dL) 145 H 160 H (65-110) mg/dL Random Glucose (65-105) mg/dL Calcium (8.6-10.4) mg/dl Total Bilirubin (0.2-1.3) mg/dL AST (14-36) U/L ALT (9-52) U/L Alkaline Phosphatase (38-126) U/L Total Protein (6.3-8.3) g/dL Albumin (3.5-5.0) g/dL Globulin (2.2-3.9) gm/dL Albumin/Globulin Ratio (1.0-2.1) Procalcitonin (0.19-0.49) NG/ML Arterial Blood Potassium (3.6-5.2) mmol/L Blood Type Antibody Screen 10/15/17 10/15/1718 Range/Units 15:33 15:33 15:33 WBC 16.8 H (4.8-10.8) K/uL RBC 4.05 (3.80-5.20) Mil/uL Hgb 11.4 (11.0-16.0) g/dL Hct 35.5 (34.0-47.0) % MCV 87.7 (81.0-99.0) fL MCH 28.2 (27.0-31.0) pg MCHC 32.1 L (33.0-37.0) g/dL RDW 15.8 H (11.5-14.5) % Plt Count 357 (130-400) K/uL MPV 9.6 (7.2-11.7) fL Neut % (Auto) 79.0 H (50.0-75.0) % Lymph % (Auto) 10.6 L (20.0-40.0) % [place] % (Auto) 8.1 (0.0-10.0) % Eos % (Auto) 1.2 (0.0-4.0) % Baso % (Auto) 1.1 (0.0-2.0) % Neut # 13.3 H (1.8-7.0) K/uL Lymph # 1.8 (1.0-4.3) K/uL [place] # 1.4 H (0.0-0.8) K/uL Eos # 0.2 (0.0-0.7) K/uL Baso # 0.2 (0.0-0.2) K/uL Neutrophils % (Manual) (50-75) % Band Neutrophils % (0-2) % Lymphocytes % (Manual) (20-40) % Monocytes % (Manual) (0-10) % Platelet Estimate (NORMAL) Large Platelets Polychromasia Hypochromasia (manual) Poikilocytosis (manual Anisocytosis (manual) Ovalocytes PT 16.3 H (9.7-12.2) SECONDS INR 1.4 APTT 30 D (21-34) SECONDS Fibrinogen 375 (200-400) mg/dL Puncture Site pCO2 (35-45) mm/Hg pO2 (80-100) mm/Hg HCO3 (21-28) mmol/L ABG pH (7.35-7.45) ABG Total CO2 (22-28) mmol/L ABG O2 Saturation (95-98) % ABG Base Excess (-2.0-3.0) mmol/L Dayron Test ABG Potassium (3.6-5.2) mmol/L A-a O2 Difference mm/Hg Respiratory Index Sodium (132-148) mmol/l Chloride (98-107) mmol/L Glucose (65-105) mg/dl Lactate (0.7-2.1) mmol/L FiO2 % Inspiratory BiPAP Expiratory BiPAP Crit Value Called To Crit Value Called By Crit Value Read Back Blood Gas Notified Time Potassium (3.6-5.2) mmol/L Carbon Dioxide (22-30) mmol/L Anion Gap (10-20) BUN (7-17) mg/dL Creatinine (0.7-1.2) mg/dL Est GFR ( Amer) Est GFR (Non-Af Amer) POC Glucose (mg/dL) (65-110) mg/dL Random Glucose (65-105) mg/dL Calcium (8.6-10.4) mg/dl Total Bilirubin (0.2-1.3) mg/dL AST (14-36) U/L ALT (9-52) U/L Alkaline Phosphatase (38-126) U/L Total Protein (6.3-8.3) g/dL Albumin (3.5-5.0) g/dL Globulin (2.2-3.9) gm/dL Albumin/Globulin Ratio (1.0-2.1) Procalcitonin (0.19-0.49) NG/ML Arterial Blood Potassium (3.6-5.2) mmol/L Blood Type O POSITIVE Antibody Screen Negative 10/15/17 10/15/17 Range/Units 11:50 08:32 WBC (4.8-10.8) K/uL RBC (3.80-5.20) Mil/uL Hgb (11.0-16.0) g/dL Hct (34.0-47.0) % MCV (81.0-99.0) fL MCH (27.0-31.0) pg MCHC (33.0-37.0) g/dL RDW (11.5-14.5) % Plt Count (130-400) K/uL MPV (7.2-11.7) fL Neut % (Auto) (50.0-75.0) % Lymph % (Auto) (20.0-40.0) % [place] % (Auto) (0.0-10.0) % Eos % (Auto) (0.0-4.0) % Baso % (Auto) (0.0-2.0) % Neut # (1.8-7.0) K/uL Lymph # (1.0-4.3) K/uL [place] # (0.0-0.8) K/uL Eos # (0.0-0.7) K/uL Baso # (0.0-0.2) K/uL Neutrophils % (Manual) (50-75) % Band Neutrophils % (0-2) % Lymphocytes % (Manual) (20-40) % Monocytes % (Manual) (0-10) % Platelet Estimate (NORMAL) Large Platelets Polychromasia Hypochromasia (manual) Poikilocytosis (manual Anisocytosis (manual) Ovalocytes PT (9.7-12.2) SECONDS INR APTT (21-34) SECONDS Fibrinogen (200-400) mg/dL Puncture Site pCO2 (35-45) mm/Hg pO2 (80-100) mm/Hg HCO3 (21-28) mmol/L ABG pH (7.35-7.45) ABG Total CO2 (22-28) mmol/L ABG O2 Saturation (95-98) % ABG Base Excess (-2.0-3.0) mmol/L Dayron Test ABG Potassium (3.6-5.2) mmol/L A-a O2 Difference mm/Hg Respiratory Index Sodium (132-148) mmol/l Chloride (98-107) mmol/L Glucose (65-105) mg/dl Lactate (0.7-2.1) mmol/L FiO2 % Inspiratory BiPAP Expiratory BiPAP Crit Value Called To Crit Value Called By Crit Value Read Back Blood Gas Notified Time Potassium (3.6-5.2) mmol/L Carbon Dioxide (22-30) mmol/L Anion Gap (10-20) BUN (7-17) mg/dL Creatinine (0.7-1.2) mg/dL Est GFR ( Amer) Est GFR (Non-Af Amer) POC Glucose (mg/dL) 152 H (65-110) mg/dL Random Glucose (65-105) mg/dL Calcium (8.6-10.4) mg/dl Total Bilirubin (0.2-1.3) mg/dL AST (14-36) U/L ALT (9-52) U/L Alkaline Phosphatase (38-126) U/L Total Protein (6.3-8.3) g/dL Albumin (3.5-5.0) g/dL Globulin (2.2-3.9) gm/dL Albumin/Globulin Ratio (1.0-2.1) Procalcitonin 0.41 (0.19-0.49) NG/ML Arterial Blood Potassium (3.6-5.2) mmol/L Blood Type Antibody Screen Laboratory Results - last 24 hr 10/15/17 10/15/17 10/15/17 08:32 11:50 15:33 WBC 16.8 H RBC 4.05 Hgb 11.4 Hct 35.5 MCV 87.7 MCH 28.2 MCHC 32.1 L RDW 15.8 H Plt Count 357 MPV 9.6 Neut % (Auto) 79.0 H Lymph % (Auto) 10.6 L [place] % (Auto) 8.1 Eos % (Auto) 1.2 Baso % (Auto) 1.1 Neut # 13.3 H Lymph # 1.8 [place] # 1.4 H Eos # 0.2 Baso # 0.2 Neutrophils % (Manual) Band Neutrophils % Lymphocytes % (Manual) Monocytes % (Manual) Platelet Estimate Large Platelets Polychromasia Hypochromasia (manual) Poikilocytosis (manual Anisocytosis (manual) Ovalocytes PT INR APTT Fibrinogen Puncture Site pCO2 pO2 HCO3 ABG pH ABG Total CO2 ABG O2 Saturation ABG Base Excess Dayron Test ABG Potassium A-a O2 Difference Respiratory Index Sodium Chloride Glucose Lactate FiO2 Inspiratory BiPAP Expiratory BiPAP Crit Value Called To Crit Value Called By Crit Value Read Back Blood Gas Notified Time Potassium Carbon Dioxide Anion Gap BUN Creatinine Est GFR ( Amer) Est GFR (Non-Af Amer) POC Glucose (mg/dL) 152 H Random Glucose Calcium Total Bilirubin AST ALT Alkaline Phosphatase Total Protein Albumin Globulin Albumin/Globulin Ratio Procalcitonin 0.41 Arterial Blood Potassium Blood Type Antibody Screen 10/15/17 10/15/17 10/15/17 15:33 15:33 16:12 WBC RBC Hgb Hct MCV MCH MCHC RDW Plt Count MPV Neut % (Auto) Lymph % (Auto) [place] % (Auto) Eos % (Auto) Baso % (Auto) Neut # Lymph # [place] # Eos # Baso # Neutrophils % (Manual) Band Neutrophils % Lymphocytes % (Manual) Monocytes % (Manual) Platelet Estimate Large Platelets Polychromasia Hypochromasia (manual) Poikilocytosis (manual Anisocytosis (manual) Ovalocytes PT 16.3 H INR 1.4 APTT 30 D Fibrinogen 375 Puncture Site pCO2 pO2 HCO3 ABG pH ABG Total CO2 ABG O2 Saturation ABG Base Excess Dayron Test ABG Potassium A-a O2 Difference Respiratory Index Sodium Chloride Glucose Lactate FiO2 Inspiratory BiPAP Expiratory BiPAP Crit Value Called To Crit Value Called By Crit Value Read Back Blood Gas Notified Time Potassium Carbon Dioxide Anion Gap BUN Creatinine Est GFR ( Amer) Est GFR (Non-Af Amer) POC Glucose (mg/dL) 160 H Random Glucose Calcium Total Bilirubin AST ALT Alkaline Phosphatase Total Protein Albumin Globulin Albumin/Globulin Ratio Procalcitonin Arterial Blood Potassium Blood Type O POSITIVE Antibody Screen Negative 10/15/17 10/15/17 10/16/17 21:08 21:14 03:13 WBC 15.4 H 16.3 H RBC 4.11 3.92 Hgb 12.0 11.3 Hct 36.3 34.6 MCV 88.4 88.2 MCH 29.2 28.7 MCHC 33.0 32.6 L RDW 15.3 H 15.2 H Plt Count 316 317 MPV 9.7 10.3 Neut % (Auto) 80.0 H 80.7 H Lymph % (Auto) 10.7 L 10.9 L [place] % (Auto) 7.4 7.2 Eos % (Auto) 1.3 0.9 Baso % (Auto) 0.6 0.3 Neut # 12.3 H 13.2 H Lymph # 1.7 1.8 [place] # 1.1 H 1.2 H Eos # 0.2 0.1 Baso # 0.1 0.0 Neutrophils % (Manual) Band Neutrophils % Lymphocytes % (Manual) Monocytes % (Manual) Platelet Estimate Large Platelets Polychromasia Hypochromasia (manual) Poikilocytosis (manual Anisocytosis (manual) Ovalocytes PT INR APTT Fibrinogen Puncture Site pCO2 pO2 HCO3 ABG pH ABG Total CO2 ABG O2 Saturation ABG Base Excess Dayron Test ABG Potassium A-a O2 Difference Respiratory Index Sodium Chloride Glucose Lactate FiO2 Inspiratory BiPAP Expiratory BiPAP Crit Value Called To Crit Value Called By Crit Value Read Back Blood Gas Notified Time Potassium Carbon Dioxide Anion Gap BUN Creatinine Est GFR ( Amer) Est GFR (Non-Af Amer) POC Glucose (mg/dL) 145 H Random Glucose Calcium Total Bilirubin AST ALT Alkaline Phosphatase Total Protein Albumin Globulin Albumin/Globulin Ratio Procalcitonin Arterial Blood Potassium Blood Type Antibody Screen 10/16/17 10/16/17 10/16/17 03:15 06:23 06:24 WBC 18.2 H RBC 3.98 Hgb 11.5 Hct 35.5 MCV 89.2 MCH 29.0 MCHC 32.5 L RDW 15.6 H Plt Count 333 MPV 9.8 Neut % (Auto) 86.2 H Lymph % (Auto) 7.4 L [place] % (Auto) 5.6 Eos % (Auto) 0.5 Baso % (Auto) 0.3 Neut # 15.7 H Lymph # 1.4 [place] # 1.0 H Eos # 0.1 Baso # 0.1 Neutrophils % (Manual) 84 H Band Neutrophils % 2 Lymphocytes % (Manual) 7 L Monocytes % (Manual) 7 Platelet Estimate Normal Large Platelets Present Polychromasia Slight Hypochromasia (manual) Slight Poikilocytosis (manual Slight Anisocytosis (manual) Slight Ovalocytes Slight PT INR APTT Fibrinogen Puncture Site Rr pCO2 41 pO2 281 H HCO3 22.7 ABG pH 7.35 ABG Total CO2 23.9 ABG O2 Saturation 98.7 H ABG Base Excess -2.9 L Dayron Test Pos ABG Potassium 4.4 A-a O2 Difference 381.0 Respiratory Index 1.4 Sodium 148.0 145 Chloride 119.0 H 113 H Glucose 144 H Lactate 1.7 FiO2 100.0 Inspiratory BiPAP Expiratory BiPAP Crit Value Called To Crit Value Called By Crit Value Read Back Blood Gas Notified Time Potassium 4.6 Carbon Dioxide 24 Anion Gap 12 BUN 35 H Creatinine 1.0 Est GFR ( Amer) > 60 Est GFR (Non-Af Amer) 54 POC Glucose (mg/dL) Random Glucose 152 H Calcium 8.3 L Total Bilirubin 0.5 AST 21 ALT 25 Alkaline Phosphatase 93 Total Protein 5.3 L Albumin 2.5 L Globulin 2.8 Albumin/Globulin Ratio 0.9 L Procalcitonin Arterial Blood Potassium 4.4 Blood Type Antibody Screen 10/16/17 10/16/17 07:33 08:20 WBC RBC Hgb Hct MCV MCH MCHC RDW Plt Count MPV Neut % (Auto) Lymph % (Auto) [place] % (Auto) Eos % (Auto) Baso % (Auto) Neut # Lymph # [place] # Eos # Baso # Neutrophils % (Manual) Band Neutrophils % Lymphocytes % (Manual) Monocytes % (Manual) Platelet Estimate Large Platelets Polychromasia Hypochromasia (manual) Poikilocytosis (manual Anisocytosis (manual) Ovalocytes PT INR APTT Fibrinogen Puncture Site Lb pCO2 42 pO2 117 H HCO3 23.1 ABG pH 7.35 ABG Total CO2 24.5 ABG O2 Saturation 97.9 ABG Base Excess -2.4 L Dayron Test Na ABG Potassium 4.4 A-a O2 Difference 258.0 Respiratory Index 2.2 Sodium 148.0 Chloride 119.0 H Glucose 157 H Lactate 1.4 FiO2 60.0 Inspiratory BiPAP 12 Expiratory BiPAP 5 Crit Value Called To Dr cowan Crit Value Called By Devonte walters salvage engineer Crit Value Read Back Y Blood Gas Notified Time 830 Potassium Carbon Dioxide Anion Gap BUN Creatinine Est GFR ( Amer) Est GFR (Non-Af Amer) POC Glucose (mg/dL) 155 H Random Glucose Calcium Total Bilirubin AST ALT Alkaline Phosphatase Total Protein Albumin Globulin Albumin/Globulin Ratio Procalcitonin Arterial Blood Potassium 4.4 Blood Type Antibody Screen Fingerstick Blood Sugar Results: 155 Critical Care Progress Note - Nutrition Nutrition: Nutrition Category Date Time Status Liquid Diet [DIET] Diets 10/16/17 Breakfast Active
[2017-10-16] MEDS: Saccharomyces Boulardi 250 mg Cap NG SCH ×2 (10:20→17:13)
--- NOTE | 2017-10-16 11:43 | CP.PCM.PN ---
Subjective - Date & Time of Evaluation Date of Evaluation: 10/16/17 Time of Evaluation: 09:00 - Subjective Subjective: General surgery progress note for Dr. Marcin Mayers, PGY-1 Pt S & E at bedside. Pt on Bipap, no complaints. Denies N & V, F & C, abdominal pain. Pt tolerating CLD. Per nursing, pt had bleeding per rectum x 3 yesterday with subsequent melena x 4 overnight. Currently on Protonix. Objective - Vital Signs/Intake and Output Vital Signs (last 24 hours): Temp Pulse Resp BP Pulse Ox 97.4 F L 96 H 24 124/51 L 99 10/16/17 08:00 10/16/17 10:00 10/16/17 10:00 10/16/17 09:07 10/16/17 10:00 Intake and Output: 10/16/17 10/16/17 06:59 18:59 Intake Total 900 100 Output Total 300 Balance 600 100 - Medications Medications: Current Medications Acetaminophen (Tylenol 325mg Tab) 650 mg PO Q6 PRN PRN Reason: Fever >100.4 F Amiodarone HCl (Cordarone) 400 mg PO BID [facility] Last Admin: 10/16/17 10:20 Dose: 400 mg Diltiazem HCl (Cardizem) 90 mg PO Q6 [facility] Last Admin: 10/16/17 05:56 Dose: Not Given Metronidazole (Flagyl) 500 mg in 100 mls @ 100 mls/hr IVPB Q8 [facility] Last Admin: 10/16/17 06:18 Dose: 100 mls/hr Meropenem 1 gm/ Sodium (Chloride) 100 mls @ 100 mls/hr IVPB Q8H [facility] Last Admin: 10/16/17 06:16 Dose: 100 mls/hr Diltiazem HCl 125 mg/ Dextrose 125 mls @ 5 mls/hr IV .Q24H TIM; 5 MG/HR PRN Reason: Protocol Last Admin: 10/15/17 20:09 Dose: 5 mg/hr, 5 mls/hr Insulin Human Regular (Novolin R) 0 unit SC ACHS TIM PRN Reason: Protocol Last Admin: 10/16/17 08:17 Dose: Not Given Levothyroxine Sodium (Synthroid) 50 mcg PO DAILY@0630 [facility] Last Admin: 01/28/18 05:57 Dose: Not Given Losartan Potassium (Cozaar) 100 mg PO DAILY [facility] Last Admin: 10/16/17 10:20 Dose: 100 mg Ondansetron HCl (Zofran Inj) 4 mg IVP Q6H PRN PRN Reason: Nausea/Vomiting Last Admin: 10/10/17 21:10 Dose: 4 mg Pantoprazole Sodium (Protonix Inj) 40 mg IVP DAILY [facility] Last Admin: 10/16/17 10:20 Dose: 40 mg Polyethylene Glycol (Miralax) 17 gm PO BID PRN PRN Reason: Constipation Last Admin: 10/07/17 10:14 Dose: 17 gm Rosuvastatin Calcium (Crestor) 5 mg NG HS [facility] Last Admin: 10/15/17 22:39 Dose: Not Given Saccharomyces Boulardii (Florastor) 250 mg NG BID [facility] Last Admin: 10/16/17 10:20 Dose: 250 mg Vitamin A (Vitamin A & D Oint Ud Foilpak) 0.5 ea TOP Q4 [facility] Last Admin: 10/16/17 08:30 Dose: 0.5 ea - Labs Labs: 10/16/17 06:23 10/16/17 06:24 PT 16.3 SECONDS (9.7-12.2) H 10/15/17 15:33 INR 1.4 10/15/17 15:33 APTT 30 SECONDS (21-34) D 10/15/17 15:33 - Constitutional Appears: Non-toxic, No Acute Distress, Other (on bipap) - Head Exam Head Exam: ATRAUMATIC, NORMAL INSPECTION, NORMOCEPHALIC - Eye Exam Eye Exam: EOMI, Normal appearance - ENT Exam ENT Exam: Mucous Membranes Dry - Neck Exam Additional comments: L IJ in place, no drainage or erythema - Respiratory Exam Respiratory Exam: NORMAL BREATHING PATTERN - Cardiovascular Exam Cardiovascular Exam: REGULAR RHYTHM, +S1, +S2 - GI/Abdominal Exam GI & Abdominal Exam: Soft. absent: Distended, Firm, Guarding, Tenderness, Rebound Additional comments: surgical sites without drainage, slight erythema - Extremities Exam Extremities Exam: Normal Inspection - Neurological Exam Neurological Exam: Alert, Awake - Psychiatric Exam Psychiatric exam: Normal Affect, Normal Mood (pleasant) - Skin Skin Exam: Dry, Intact, Normal Color, Warm Assessment and Plan - Assessment and Plan (Free Text) Assessment: 77F POD#6 s/p ex-lap w/ small bowel resection Plan: cont abx cont light IVF hydration would cont CLD for now and not advance until flatus aggressive PT given deconditioning incentive spirometer Bipap as needed Cont mgmt as per ICU and primary teams DW Dr Jamaal Mayers, PGY-1
[2017-10-16 15:21] LABS: HEMOGLOBIN 11.2 g/dL (11.0-16.0); MEAN CELL VOLUME 90.1 fL (81.0-99.0); MEAN CORPUSCULAR HEMOGLOBIN 28.7 pg (27.0-31.0); MEAN CORPUSCULAR HGB CONC 31.8 g/dL (33.0-37.0); RBC 3.92 Mil/uL (3.80-5.20); RED CELL DISTRIBUTION WIDTH 15.5 % (11.5-14.5); WHITE BLOOD COUNT 25.5 K/uL (4.8-10.8)
--- NOTE | 2017-10-16 18:31 | CP.PCM.PN ---
Subjective - Date & Time of Evaluation Date of Evaluation: 10/16/17 Time of Evaluation: 18:15 - Subjective Subjective: Hospitalist Progress Note Patient was seen and examined at 6:15 PM 10/16/17 ICU Bed #18 Currently upon FULL ROS: States that she is hungry NO other complaints Exam: General: She is awake and speaking and following commands. On BiPAP 12/5 FiO2 60 % HEENT: EOMI, PERRLA, NO cervical/submandibular/supraclavicular lymphadenopathy, NO thyromegaly Cardio: NS1 and NS2, NO M/R/G Resp: Course breath sounds throughout GI: BSx4, Soft, Central Obesity, Ventral Vertical Surgical Site with intact alirio and NO dehiscence and NO surrounding signs of cellulitis, some tenderness to palpation around the surgical site, however NO guarding/rebound tenderness Ext: NO edema, Pulses are strong and equal, NO discoloration, NO cyanosis, Capillary Refill is 2 seconds 1.Bowel Ischemia Abdominal Pain Abdominal Aorta Aneurysm * General surgery: Dr. Hinton on consult-->given LLQ abdominal pain * 10/08/17: Exploratory laparotomy, small bowel resection and primary anastomosis. EBL: 100; No Drains * Vascular surgery consult: Dr. Inman to follow for evaluation--> given aborminal aorta focal contained dissection * CT Dissection protocol (10/04/17): No evidence of thoracic aortic aneurysm, dissection, or rupture. No acute pulmonary embolism, Hepatic cysts, further findings available in the report including. Focal aneurysmal dilatation of infrarenal abdominal aorta measuring 2.6cm * Meropenem 1gram IVPB Q 8H (10/07/17) * Flagyl 500mg IVPB Q8H (active since 10/07/17) * CT abdomen/pelvis PO (10/07/17); Small bowel pneumatosis and portal venous gas concerning for bowel ischemia and necrosis. Multiple liver cysts. Nonobstructing calcifications in the left kidney. 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 In addition to the possible partial obstruction, there is prominent wall and fold enhancement of multiple small bowel loops suggesting enteritis. 2. Chest Pain New LBBB History of Coronary Artery Disease History of CABG History of Diabetes Lipid Disorder History of Hypertension History of Severe Aortic Stenosis History of Pacemaker; prior Sick Sinus syndrome New Onset Atrial Fibrillation * Cardiology (Dr. Childs) on board-->help appreciated * Cardiac cath (10/06/17) completed; discussed with Dr. Childs including RCA occlusion about 50%-->will need intervention in future * Echocardiogram (10/06/17): left ventricular function is normal, left ventricular ejection fraction is within the normal range. No regional wall motion abnormalities noted. Left atrium is mildly dilated. Mild to Moderate valvular aortic stenosis. Calculated aortic valve area is 1.1cm squared. Donna regurgitation is mild to moderate. * Prior cardiac workup: * Holter in 2017 showed NSR with max HR 121, SVT at HR of 146 and rare VPC, isolated APC. * Cardiac Cath in 2014 showed distal main coronary artery 70-80% concentric stenosis mid LAD 70-80% stenosis, RCA 20-30% non-obstructing stenosis, and large diagonal branch 85% proximal stenosis. with LVEF of 60%. Basal inferior wall akinetic. * revious ECHO showed borderline concentric LVH with grade I abnormal relaxation pattern, severe aortic stenosis, mild mitral regurg, and mild to moderate pulmonic regurg. LVEF was 60-65%. History of pacemaker placement per chart review. * CT Dissection protocol (10/04/17): No evidence of thoracic aortic aneurysm, dissection, or rupture. No acute pulmonary embolism, Hepatic cysts, further findings available in the report inclduing Focal aneurysmal dilatation of infrarenal abdominal aorta measuring 2.6cm * Elevated probnp: 1580 * CARLYN: 7 * T, cholestrol: 159, LDL: 91, HDL: 41 * [id number]: 7.1 * PaceMaker was interrogated by [employer] and it was deemed to be working properly * Patient had episodes of tachycardia 10/10/17 and 10/11/17 and was placed on Cardizem Drip 10 mg/hour and Lopressor 5 mg IV Q6H which were discontinued on . Cardizem Drip restarted at 5 mg/hour 10/15/17. Current Cardiac Meds: * Eliquis 5 mg PO 2x/day started 10/13/17 and was PUT ON HOLD due to Bright Red Blood Per Rectum on 10/15/17 * Aspirin 81 mg NG 1x/day PUT ON HOLD due to Bright Red Blood Per Rectum on 10/15 * Amiodarone 400 mg started PO 2x/day * Diltiazem 90 mg PO Q6H * Crestor 5mg NG QHS * Cozaar 100 mg NG 1x/day 3. Sepsis Urinary Tract Infection Bandemia * Infectious Disease (Dr. Lawson) on the case-->help appreciated * Code sepsis 10/07/17 * Blood cultures (10/06/17): Negative at 5 days * Blood cultures (10/07/17): Negative at 5 days * F/U Repeat Blood Culture 10/15/17 ordered for elevated WBC of 25 * Urine culture (10/07/17): Klebsiella Pneumoanie-->sensitive to Meropenem * Repeat Urine Culture (10/11/17): NO GROWTH * Stool Culture (10/07/17): Negative * Ova and Parasite (10/07/17): No ova and parasite * F/U repeat Stool Studies 10/12/17 that were ordered secondary to abundant diarrhea * Meropenem 1gram IVPB Q 8H (10/07/17- active) * Flagyl 500mg IVPB Q8H (10/07/17- active) * Lactic acid: 2.4 (10/05/17)-->1.8 (10/06/17)-->4.1 (10/07/17)-->2.6 (10/08/17)--> 2.2 (10/08/17) * Has Renee in place 4. Melena Bright Red Blood Per Rectum * 2 episodes of bright red blood per rectum on 10/15/17. * See findings of CT Angiogram Abdomen/Pelvis in Assessment and Plan #1 above * She received 1 unit PRBC 10/15/17 night * HgB/Hct are stable and stool is now brown watery. * GI Dr. Boland was reconsulted 10/15/17 and no plans for procedure at this time. Hold anticoagulation. 5. History of Chronic Constipation History of Liver cysts * GI (Dr. Boland) on case-->had signed off * Given patient is asymptomatic and appearance of lesions on imaging consistent with cystic disease, no further workup is indicated at this time. If patient becomes symptomatic, there is consideration for surgical intervention. * Maintain bowel regimen to prevent constipation * Suggest additional outpatient follow up and age appropriate screening colonoscopy if patient willing to undergo procedure. No further planned GI intervention * Hepatitis panel: negative * Please see #1 for further details. 6. History of Hypothyroidism * TSH: 2.92; Free T4: 1.49 * Synthroid 50mcg PO daily 7. History of Breast Cancer * Patient history of lumpectomy * She is being following serially * Patient is not on any chemotherapeutic agent 8. History of HTN * Losartan and Diltiazem as above 9. History of HLD * Restarted Crestor 10/12/17 10. History of DM * Novolin R SC Q6H Sliding Scale 11. Episode of Confusion This apparently occurred on night of 10/15/17: secondary to owning? Patient is AAOx3 at the time of my exam CT Head did not show any bleed or evidence of CVA 12. Prophylactic care * Anticoagulation was held given melena 10/07/17 but she was started on Heparin Drip 10/09/17 secondary to fear of showering emboli: monitor HgB/Hct which has been stable since the start of the Heparin Drip. The Heparin Drip was discontinued and Eliquis 5 mg PO Q12H was started 10/13/17 and then discontinued on 10/15/17 secondary to bright red blood per rectum on 10/15/17 * Palliative Care consult given patient wanted to discuss code status initially during hospitalization * Florastor 250 mg NG 2x/day * Zofran 4 mg IV Q6H PRN N/V * Protonix 40 mg IV 1x/day * NGT removed 10/14/17 and patient underwent Swallow Evaluation leading to placing her on Puree Diet. However please restart Clear Liquid Diet on 10/17/17. Daughter Marisol who was at the bedside was updated as to patient status. Bertin Barbosa D.O. Objective - Vital Signs/Intake and Output Vital Signs (last 24 hours): Temp Pulse Resp BP Pulse Ox 97.3 F L 99 H 22 120/53 L 98 10/16/17 16:00 10/16/17 18:00 10/16/17 18:00 10/16/17 17:07 10/16/17 18:00 Intake and Output: 10/16/17 10/16/17 06:59 18:59 Intake Total 900 490 Output Total 300 Balance 600 490 - Medications Medications: Current Medications Acetaminophen (Tylenol 325mg Tab) 650 mg PO Q6 PRN PRN Reason: Fever >100.4 F Amiodarone HCl (Cordarone) 400 mg PO BID [facility] Last Admin: 10/16/17 17:12 Dose: 400 mg Diltiazem HCl (Cardizem) 90 mg PO Q6 [facility] Last Admin: 10/16/17 17:13 Dose: 90 mg Metronidazole (Flagyl) 500 mg in 100 mls @ 100 mls/hr IVPB Q8 [facility] Last Admin: 10/16/17 13:46 Dose: 100 mls/hr Meropenem 1 gm/ Sodium (Chloride) 100 mls @ 100 mls/hr IVPB Q8H [facility] Last Admin: 10/16/17 13:47 Dose: 100 mls/hr Diltiazem HCl 125 mg/ Dextrose 125 mls @ 5 mls/hr IV .Q24H TIM; 5 MG/HR PRN Reason: Protocol Last Admin: 10/15/17 20:09 Dose: 5 mg/hr, 5 mls/hr Insulin Human Regular (Novolin R) 0 unit SC ACHS [facility] PRN Reason: Protocol Last Admin: 10/16/17 16:28 Dose: Not Given Levothyroxine Sodium (Synthroid) 50 mcg PO DAILY@0630 [facility] Last Admin: 10/16/17 05:57 Dose: Not Given Losartan Potassium (Cozaar) 100 mg PO DAILY [facility] Last Admin: 10/16/17 10:20 Dose: 100 mg Ondansetron HCl (Zofran Inj) 4 mg IVP Q6H PRN PRN Reason: Nausea/Vomiting Last Admin: 10/10/17 21:10 Dose: 4 mg Pantoprazole Sodium (Protonix Inj) 40 mg IVP DAILY [facility] Last Admin: 10/16/17 10:20 Dose: 40 mg Polyethylene Glycol (Miralax) 17 gm PO BID PRN PRN Reason: Constipation Last Admin: 10/07/17 10:14 Dose: 17 gm Rosuvastatin Calcium (Crestor) 5 mg NG HS [facility] Last Admin: 10/15/17 22:39 Dose: Not Given Saccharomyces Boulardii (Florastor) 250 mg NG BID [facility] Last Admin: 10/16/17 17:13 Dose: 250 mg Vitamin A (Vitamin A & D Oint Ud Foilpak) 0.5 ea TOP Q4 TIM Last Admin: 10/16/17 16:28 Dose: 0.5 ea - Labs Labs: 10/16/17 15:14 10/16/17 06:24 PT 16.3 SECONDS (9.7-12.2) H 10/15/17 15:33 INR 1.4 10/15/17 15:33 APTT 30 SECONDS (21-34) D 10/15/17 15:33
[2017-10-17] MEDS: Vitamins A & D Oint UD Foilpak TOP SCH ×6 (04:00→20:32)
[2017-10-17] MEDS: metroNIDAZOLE IV 500 mg/100 ml 500 MG/100 ML BAG IVPB SCH ×3 (06:00→22:00)
[2017-10-17] MEDS: Meropenem 1 GM in Sodium Chloride 0.9% 100 ML IVPB SCH ×3 (06:03→22:00)
[2017-10-17] MEDS: Levothyroxine 50 MCG TAB PO SCH (06:06)
[2017-10-17 06:35] LABS: BASO % 0.2 % (0.0-2.0); EOS % 0.1 % (0.0-4.0); HEMOGLOBIN 9.4 g/dL (11.0-16.0); LYMPH # 1.3 K/uL (1.0-4.3); LYMPH % 6.2 % (20.0-40.0); MEAN CELL VOLUME 90.6 fL (81.0-99.0); MEAN CORPUSCULAR HEMOGLOBIN 29.7 pg (27.0-31.0); MEAN CORPUSCULAR HGB CONC 32.8 g/dL (33.0-37.0); MEAN PLATELET VOLUME 10.1 fL (7.2-11.7); MONO # 1.1 K/uL (0.0-0.8); MONO % 5.2 % (0.0-10.0); NEUT # 18.4 K/uL (1.8-7.0); NEUT % 88.3 % (50.0-75.0); PLATELET COUNT 323 K/uL (130-400); RBC 3.18 Mil/uL (3.80-5.20); RED CELL DISTRIBUTION WIDTH 15.4 % (11.5-14.5); WHITE BLOOD COUNT 20.8 K/uL (4.8-10.8)
[2017-10-17 07:08] LABS: ALB/GLOB RATIO 0.9 (1.0-2.1); ALBUMIN 2.4 g/dL (3.5-5.0); ALT/SGPT 26 U/L (9-52); AST/SGOT 27 U/L (14-36); BLOOD UREA NITROGEN 38 mg/dL (7-17); CALCIUM 8.3 mg/dl (8.6-10.4); GFR AFRICAN-AMERICAN > 60; GFR NON-AFRICAN AMERICAN > 60
--- NOTE | 2017-10-17 07:54 | PN ---
DATE: 10/17/2017 TIME OF EVALUATION: 07:10 a.m. NEUROLOGIC PROBLEM: Metabolic encephalopathy secondary to hypoperfusion syndrome. PHYSICAL EXAMINATION: VITAL SIGNS: Mean arterial pressure of 57, under Cardizem drip as well as p.o. Cardizem. Pulse rate 87, pacemaker rhythm. Temperature afebrile. The patient is on BiPAP. NEUROLOGIC: The patient is awake, alert, oriented to person and place. She moves all 4 extremities against gravity. She would like to go home. She does not want to be kept her on BiPAP. Rest of the examination is unchanged compared with my previous exam. LABORATORY DATA: The patient did CT of the head 10/15/2017, which was reviewed by me. It does not show any acute hemorrhage or stroke. There are some thick artifact noted. Small vessel disease again noted. The patient is scheduled to have electroencephalogram. Her electrolytes are stable and hemoglobin is 9.4, hematocrit 28.8 with platelets of 323. Sodium 152, potassium 4.1, chloride 109, bicarbonate 25, BUN 38, creatinine 0.9, GFR more than 60. RECOMMENDATION: Replace her electrolytes and anemia should be corrected. The patient is scheduled to have electroencephalogram today. The patient will be followed closely with you. Stiven Mazariegos MD
[2017-10-17] MEDS: (Novolin R) Insulin Human Regular 100 units/ml vial SC SCH ×4 (07:58→18:53)
[2017-10-17 08:00] LABS: LYMPHOCYTE 7 % (20-40); MONOCYTE 4 % (0-10); NEUTROPHIL 89 % (50-75); TOTAL CELLS COUNTED 100
[2017-10-17 08:04] LABS: PLATELET ESTIMATE NORMAL (NORMAL)
[2017-10-17 08:05] LABS: ANISOCYTOSIS SLIGHT; LARGE PLATELETS PRESENT
--- NOTE | 2017-10-17 08:30 | CP.PCM.PN ---
<Maynor Jon - Last Filed: 10/17/17 08:18> Subjective - Date & Time of Evaluation Date of Evaluation: 10/17/17 Time of Evaluation: 08:18 - Subjective Subjective: Cardiology progress note for Dr. Childs - Maynor Jon, PGY - 1 Patient seen and examined at bedside. Patient has BiPap mask on, but is able to respond to questions. Per chart review and discussion with nurses, patient had gross red blood per rectum on 10/15, which resulted in 1 unit of blood being given. Patient herself has no acute complaints at this time, and denies chest pain and shortness of breath. Per nursing, there have been no more bouts of bright red blood per rectum. Hemoglobin was stable over the weekend (but has dropped two points today). Objective - Vital Signs/Intake and Output Vital Signs (last 24 hours): Temp Pulse Resp BP Pulse Ox 98.6 F 85 25 H 92/49 L 97 10/17/17 08:00 10/17/17 08:07 10/17/17 08:07 10/17/17 08:07 10/17/17 08:07 Intake and Output: 10/17/17 10/17/17 06:59 18:59 Intake Total 710 5 Output Total 501 Balance 209 5 - Medications Medications: Current Medications Acetaminophen (Tylenol 325mg Tab) 650 mg PO Q6 PRN PRN Reason: Fever >100.4 F Amiodarone HCl (Cordarone) 400 mg PO BID [facility] Last Admin: 10/16/17 17:12 Dose: 400 mg Diltiazem HCl (Cardizem) 90 mg PO Q6 [facility] Last Admin: 10/17/17 06:00 Dose: 90 mg Metronidazole (Flagyl) 500 mg in 100 mls @ 100 mls/hr IVPB Q8 [facility] Last Admin: 10/17/17 06:00 Dose: 100 mls/hr Meropenem 1 gm/ Sodium (Chloride) 100 mls @ 100 mls/hr IVPB Q8H [facility] Last Admin: 10/17/17 06:03 Dose: 100 mls/hr Insulin Human Regular (Novolin R) 0 unit SC ACHS TIM PRN Reason: Protocol Last Admin: 10/17/17 07:58 Dose: Not Given Levothyroxine Sodium (Synthroid) 50 mcg PO DAILY@0630 [facility] Last Admin: 10/17/17 06:06 Dose: 50 mcg Losartan Potassium (Cozaar) 100 mg PO DAILY [facility] Last Admin: 10/16/17 10:20 Dose: 100 mg Mupirocin (Bactroban Ointment) 0 gm TOP BID [facility] Last Admin: 10/16/17 22:05 Dose: 1 gm Ondansetron HCl (Zofran Inj) 4 mg IVP Q6H PRN PRN Reason: Nausea/Vomiting Last Admin: 10/10/17 21:10 Dose: 4 mg Pantoprazole Sodium (Protonix Inj) 40 mg IVP DAILY [facility] Last Admin: 10/16/17 10:20 Dose: 40 mg Polyethylene Glycol (Miralax) 17 gm PO BID PRN PRN Reason: Constipation Last Admin: 10/07/17 10:14 Dose: 17 gm Rosuvastatin Calcium (Crestor) 5 mg NG HS [facility] Last Admin: 10/16/17 21:45 Dose: 5 mg Saccharomyces Boulardii (Florastor) 250 mg NG BID [facility] Last Admin: 10/16/17 17:13 Dose: 250 mg Vitamin A (Vitamin A & D Oint Ud Foilpak) 0.5 ea TOP Q4 [facility] Last Admin: 10/17/17 08:04 Dose: 0.5 ea - Labs Labs: 10/17/17 06:25 10/17/17 06:23 PT 16.3 SECONDS (9.7-12.2) H 10/15/17 15:33 INR 1.4 10/15/17 15:33 APTT 30 SECONDS (21-34) D 10/15/17 15:33 - Additional Findings Additional findings: Physical Exam: Vital Signs as below Const'l: +Patient was extubated last , but is on BiPap now, oriented x 2, dyspnea Head/Neck: neck supple, no jvd, trachea midline, carotid midline, no cervical/head mass Eyes: pupils equally reactive to light and accommodation, nonicteric sclera, extraocular intact ENT: auditory acuity grossly intact, throat not congested, no nasal deformity Cardio: +Irregular rhythm; +scar on chest wall on left and right sides, regular rate, regular rhythm, no murmurs rubs gallops, no carotid bruit, normal s1, s2 Pulm: no accessory muscle use, equal normal breath sounds bilaterally, clear to ausculation bilaterally Abd: +obesity limiting exam, +slightly diminished bowel sounds in lower quadrants - resolved; soft non tender non-distended, no palpable masses Derm: no rashes, no ulcers, no lesions Extr: no edema, no cyanosis, no calf tenderness, no lesions, no varicosities Neuro: cranial nerves II-XII grossly intact, upper extremity and lower extremity 5/5 muscle strength bilaterally, no loss of sensation in upper extremities, lower extremities bilaterally and core Assessment and Plan - Assessment and Plan (Free Text) Assessment: Acute Assessments and Plan: 77 year old female with extensive cardiac history including CABG (2012), Cath with results as below (2014), and Abnormal stress test (2017) presents with 4 hour duration of chest pain. Troponins at .0230-->.0220-->.0260. EKG showed new LBBB with NSR at 90 bpm. Cath on this admission showed further RCA stenosis at about 50%. SUMMERS to LAD patent, but large diagonal and obtuse marginal no longer patent. Please see operative note for further information. New-Onset Atrial Fibrillation - Resolved - Pacemaker interrogated by contact representative from [employer]. Patient's Pacemaker is functioning appropriately, is trying to compensate for patient's irregular rhythm - Rate control: Metoprolol 5 q6 - Rhythm management: Diltiazem drip - Anticoagulation - Eliquis 5 BID on hold secondary to GI bleed Acute GI Bleed - Hold Eliquis - SBO on Abdomen Angiogram - GI on consult - Dr. Boland - no acute intervention at this point - Mgmt per primary, surgery, and GI Ischemic Bowel s/p 2 ft of small bowel resection - Heparin drip - Management per ICU and Surgery Prophylactic Measures - GI PPX: Protonix 40mg PO daily - DVT PPX: Hold 2/2 acute GI bleed as above Assessment and Plan History: Holter in 2017 showed NSR with max HR 121, SVT at HR of 146 and rare VPC, isolated APC. Cardiac Cath in 2014 showed distal main coronary artery 70-80% concentric stenosis mid LAD 70-80% stenosis, RCA 20-30% non-obstructing stenosis , and large diagonal branch 85% proximal stenosis. with LVEF of 60%. Basal inferior wall akinetic. Previous ECHO showed borderline concentric LVH with grade I abnormal relaxation pattern, severe aortic stenosis, mild mitral regurg , and mild to moderate pulmonic regurg. LVEF was 60-65%. History of pacemaker placement per chart review. Chest Pain, ACS ruled out, likely 2/2 New LBBB - EK, and LBBB not found on previous EKG's in system - Troponin X 1 at .0230, X2 at .0220; baseline is <.0120; CK-MB 1.87-1.85 - BNP elevated at 1580, past BNP's 799-955, with one at 1930 in 2012. - TSH, T4, Lipids - wnl - Mg/Phos:1.3/3.4 - CT Chest with IV: No aneurysm, no dissection, no PE - Follow up Troponins, EKGs - ECHO ordered, Nitro given, ASA 81 daily, Cozaar daily, Norvasc daily, Crestor daily New Left Bundle Branch Block - Patient already has a pacemaker placed (LBBB could be 2/2 to pacing) - Serial JOANNA panel, Serial EKGs, as above - Patient cardiac cath today, Results are: Briefly, LAD to SUMMERS is patent, but other graft is gone. There actually is no jump graft RCA is now 50% stenosed, moreso than last cath Please see operative note for further details CAD s/p CABG (2012) - Crestor, Cozaar, ASA daily HTN - Norvasc 5mg PO daily, Cozaar 100mg PO daily HLD - Crestor 5mg PO QHS (patient's home medication is lipitor) DM - HGA1C: 7.1 (09/2017), Held home medication: Metformin - Carb Consistent Diet, Accuchecks, RISS - Mod Hyperkalemia - Per primary team Elevated T. Bili - Per primary team Transaminitis - Per primary team Hypothyroidism - Per primary team History of Breast Cancer - Per primary team <Babak Childs - Last Filed: 10/17/17 23:28> Objective - Vital Signs/Intake and Output Vital Signs (last 24 hours): Temp Pulse Resp BP Pulse Ox 98.2 F 77 22 133/43 L 100 10/17/17 20:30 10/17/17 20:30 10/17/17 20:30 10/17/17 20:30 10/17/17 19:36 Intake and Output: 01/29/18 01/30/18 18:59 06:59 Intake Total 1712.2 839.2 Output Total 260 90 Balance 1452.2 749.2 - Medications Medications: Current Medications Acetaminophen (Tylenol 325mg Tab) 650 mg PO Q6 PRN PRN Reason: Fever >100.4 F Albuterol/Ipratropium (Duoneb 3 Mg/0.5 Mg (3 Ml) Ud) 3 ml INH RQ6 [facility] Last Admin: 10/17/17 20:20 Dose: 3 ml Diltiazem HCl (Cardizem) 90 mg PO Q6 [facility] Last Admin: 10/17/17 17:55 Dose: Not Given Hydromorphone HCl (Dilaudid) 1 mg IVP Q4H PRN PRN Reason: Anxiety Metronidazole (Flagyl) 500 mg in 100 mls @ 100 mls/hr IVPB Q8 [facility] Last Admin: 10/17/17 22:00 Dose: 100 mls/hr Meropenem 1 gm/ Sodium (Chloride) 100 mls @ 100 mls/hr IVPB Q8H [facility] Last Admin: 10/17/17 22:00 Dose: 100 mls/hr Dextrose/Sodium Chloride (Dextrose 5%/0.9% Ns 1000 Ml) 1,000 mls @ 30 mls/hr IV .Q24H [facility] Last Admin: 10/17/17 11:10 Dose: 30 mls/hr Norepinephrine Bitartrate 8 mg (/ Sodium Chloride) 258 mls @ 7.74 mls/hr IV .Q24H PRN; Protocol; 4 MCG/MIN PRN Reason: TITRATE PER MD ORDER Last Titration: 10/17/17 18:51 Dose: 18 mcg/min, 34.83 mls/hr Insulin Human Regular (Novolin R) 0 unit SC Q6H [facility] PRN Reason: Protocol Last Admin: 10/17/17 17:49 Dose: Not Given Levothyroxine Sodium (Synthroid) 50 mcg PO DAILY@0630 [facility] Last Admin: 10/17/17 06:06 Dose: 50 mcg Lorazepam (Ativan) 2 mg IVP Q6H PRN PRN Reason: Anxiety Losartan Potassium (Cozaar) 100 mg PO DAILY [facility] Last Admin: 10/17/17 10:04 Dose: Not Given Mupirocin (Bactroban Ointment) 0 gm TOP BID [facility] Last Admin: 10/17/17 17:54 Dose: 1 gm Ondansetron HCl (Zofran Inj) 4 mg IVP Q6H PRN PRN Reason: Nausea/Vomiting Last Admin: 10/10/17 21:10 Dose: 4 mg Pantoprazole Sodium (Protonix Inj) 40 mg IVP BID [facility] Last Admin: 10/17/17 17:51 Dose: Not Given Polyethylene Glycol (Miralax) 17 gm PO BID PRN PRN Reason: Constipation Last Admin: 10/07/17 10:14 Dose: 17 gm Rosuvastatin Calcium (Crestor) 5 mg NG HS TIM Last Admin: 10/17/17 22:00 Dose: Not Given Saccharomyces Boulardii (Florastor) 250 mg NG BID [facility] Last Admin: 10/17/17 17:55 Dose: Not Given Vitamin A (Vitamin A & D Oint Ud Foilpak) 0.5 ea TOP Q4 [facility] Last Admin: 10/17/17 20:32 Dose: 0.5 ea - Labs Labs: 10/17/17 22:24 10/17/17 21:47 PT 14.3 SECONDS (9.7-12.2) H 10/17/17 22:24 INR 1.2 10/17/17 22:24 APTT 27 SECONDS (21-34) 10/17/17 22:24 Assessment and Plan (1) Chest discomfort Status: Acute (2) Chest pain Status: Acute (3) Hypertension Status: Acute Attending/Attestation - Attestation I have personally seen and examined this patient.: Yes I have fully participated in the care of the patient.: Yes I have reviewed all pertinent clinical information, including history, physical exam and plan: Yes Notes (Text): 10/17/17 23:27 hypoxemia - etiology unclear CT thorax cont rate control meds AC on hold
[2017-10-17 08:41] LABS: MAGNESIUM 1.9 mg/dL (1.6-2.3)
--- NOTE | 2017-10-17 08:45 | CP.PCM.PN ---
<Jane Faria - Last Filed: 10/17/17 09:21> Subjective - Date & Time of Evaluation Date of Evaluation: 10/17/17 Time of Evaluation: 07:00 - Subjective Subjective: GI Fellow PGY4 Progress Note Pt seen and evaluated at bedside, pt currently on BIPAP for SOB overnight. Pt AAOx2, denies any abdominal pain. Per nursing pt has 4 episodes of brown green diarrhea yesterday with no further rectal bleeding. Pt also received 1U of PRBCs 2 days ago. Pt's OAC eliquis and aspirin on hold, last dose was 10/15/17. ROS: A 12pt ROS was negative except as above. Objective - Vital Signs/Intake and Output Vital Signs (last 24 hours): Temp Pulse Resp BP Pulse Ox 98.6 F 85 25 H 92/49 L 97 10/17/17 08:00 10/17/17 08:07 10/17/17 08:07 10/17/17 08:07 10/17/17 08:07 Intake and Output: 10/17/17 10/17/17 06:59 18:59 Intake Total 710 10 Output Total 501 Balance 209 10 - Medications Medications: Current Medications Acetaminophen (Tylenol 325mg Tab) 650 mg PO Q6 PRN PRN Reason: Fever >100.4 F Amiodarone HCl (Cordarone) 400 mg PO BID [facility] Last Admin: 10/16/17 17:12 Dose: 400 mg Diltiazem HCl (Cardizem) 90 mg PO Q6 [facility] Last Admin: 10/17/17 06:00 Dose: 90 mg Metronidazole (Flagyl) 500 mg in 100 mls @ 100 mls/hr IVPB Q8 [facility] Last Admin: 10/17/17 06:00 Dose: 100 mls/hr Meropenem 1 gm/ Sodium (Chloride) 100 mls @ 100 mls/hr IVPB Q8H [facility] Last Admin: 10/17/17 06:03 Dose: 100 mls/hr Insulin Human Regular (Novolin R) 0 unit SC ACHS [facility] PRN Reason: Protocol Last Admin: 10/17/17 07:58 Dose: Not Given Levothyroxine Sodium (Synthroid) 50 mcg PO DAILY@0630 [facility] Last Admin: 10/17/17 06:06 Dose: 50 mcg Losartan Potassium (Cozaar) 100 mg PO DAILY [facility] Last Admin: 10/16/17 10:20 Dose: 100 mg Mupirocin (Bactroban Ointment) 0 gm TOP BID [facility] Last Admin: 10/16/17 22:05 Dose: 1 gm Ondansetron HCl (Zofran Inj) 4 mg IVP Q6H PRN PRN Reason: Nausea/Vomiting Last Admin: 10/10/17 21:10 Dose: 4 mg Pantoprazole Sodium (Protonix Inj) 40 mg IVP DAILY [facility] Last Admin: 10/16/17 10:20 Dose: 40 mg Polyethylene Glycol (Miralax) 17 gm PO BID PRN PRN Reason: Constipation Last Admin: 10/07/17 10:14 Dose: 17 gm Rosuvastatin Calcium (Crestor) 5 mg NG HS [facility] Last Admin: 10/16/17 21:45 Dose: 5 mg Saccharomyces Boulardii (Florastor) 250 mg NG BID [facility] Last Admin: 10/16/17 17:13 Dose: 250 mg Vitamin A (Vitamin A & D Oint Ud Foilpak) 0.5 ea TOP Q4 [facility] Last Admin: 10/17/17 08:04 Dose: 0.5 ea - Labs Labs: 10/17/17 06:25 10/17/17 06:23 PT 16.3 SECONDS (9.7-12.2) H 10/15/17 15:33 INR 1.4 10/15/17 15:33 APTT 30 SECONDS (21-34) D 10/15/17 15:33 - Constitutional Appears: Non-toxic, In Acute Distress, Chronically Ill - Head Exam Head Exam: ATRAUMATIC, NORMAL INSPECTION, NORMOCEPHALIC - Eye Exam Eye Exam: EOMI, Normal appearance, PERRL Pupil Exam: PERRL - ENT Exam ENT Exam: Mucous Membranes Dry - Neck Exam Neck Exam: Full ROM - Respiratory Exam Respiratory Exam: Clear to Ausculation Bilateral, NORMAL BREATHING PATTERN - Cardiovascular Exam Cardiovascular Exam: Tachycardia, REGULAR RHYTHM - GI/Abdominal Exam GI & Abdominal Exam: Soft, Normal Bowel Sounds. absent: Distended, Guarding, Tenderness, Organomegaly - Rectal Exam Rectal Exam: Deferred - Extremities Exam Extremities Exam: Normal Inspection - Back Exam Back Exam: NORMAL INSPECTION - Neurological Exam Neurological Exam: Alert, Awake - Psychiatric Exam Psychiatric exam: Anxious - Skin Skin Exam: Dry, Intact, Pallor, Warm Assessment and Plan - Assessment and Plan (Free Text) Assessment: This is a 77 year old female with history of HTN, DM, CAD/CABG, breast cancer, hypothyroidism, aortic stenosis, bradycardia/SSS s/p PPM who was admitted to hospital for evaluation of chest pain and vomiting. 1. Rectal Bleeding 2. NSTEMI s/p cardiac cath RCA 50% stenosis 3. Small bowel ischmeic, necrosis s/p small bowel resection and primary anastamosis POD#8 4. Hepatic cysts 5. VDRF s/p extubation 6. UTI Plan: -Continue supportive care with respiratory status -No active GI bleeding at this time, rectal exam with brown stool-no melena or hematochezia -Hgb stable at this time at 9.4 s/p 1 U PRBCs, hemodynamically stable, continue to monitor H/H and transfuse as needed -Continue IV PPI daily, no drip needed -CT Angio reviewed with no source of active GI bleeding -No plan for emergent endoscopic evaluation at this time, if Hgb drops further will re-evaluate -Continue to hold OAC and antiplatelet therapy -Advance to clear liquid diet -Continue IV abx for UTI, ID following -Small bowel ischemia s/p resection POD#8, surgery following -CAD with cardiology following, will need to discuss restarting OAC and anti- platelet therapy -Hepatic cysts are benign, no hemangioma on imaging with no concern for bleeding -Will continue to follow pt closely <Bronson Biswas - Last Filed: 10/17/17 11:44> Objective - Vital Signs/Intake and Output Vital Signs (last 24 hours): Temp Pulse Resp BP Pulse Ox 98.6 F 96 H 25 H 92/49 L 97 10/17/17 08:00 10/17/17 11:20 10/17/17 08:07 10/17/17 08:07 10/17/17 08:07 Intake and Output: 10/17/17 10/17/17 06:59 18:59 Intake Total 710 10 Output Total 501 Balance 209 10 - Medications Medications: Current Medications Acetaminophen (Tylenol 325mg Tab) 650 mg PO Q6 PRN PRN Reason: Fever >100.4 F Albuterol/Ipratropium (Duoneb 3 Mg/0.5 Mg (3 Ml) Ud) 3 ml INH RQ6 [facility] Amiodarone HCl (Cordarone) 400 mg PO BID [facility] Last Admin: 10/17/17 10:02 Dose: 400 mg Diltiazem HCl (Cardizem) 90 mg PO Q6 [facility] Last Admin: 10/17/17 06:00 Dose: 90 mg Metronidazole (Flagyl) 500 mg in 100 mls @ 100 mls/hr IVPB Q8 [facility] Last Admin: 10/17/17 06:00 Dose: 100 mls/hr Meropenem 1 gm/ Sodium (Chloride) 100 mls @ 100 mls/hr IVPB Q8H [facility] Last Admin: 10/17/17 06:03 Dose: 100 mls/hr Dextrose/Sodium Chloride (Dextrose 5%/0.9% Ns 1000 Ml) 1,000 mls @ 30 mls/hr IV .Q24H [facility] Last Admin: 10/17/17 11:10 Dose: 30 mls/hr Insulin Human Regular (Novolin R) 0 unit SC ACHS [facility] PRN Reason: Protocol Last Admin: 10/17/17 07:58 Dose: Not Given Levothyroxine Sodium (Synthroid) 50 mcg PO DAILY@0630 [facility] Last Admin: 10/17/17 06:06 Dose: 50 mcg Losartan Potassium (Cozaar) 100 mg PO DAILY [facility] Last Admin: 10/17/17 10:04 Dose: Not Given Mupirocin (Bactroban Ointment) 0 gm TOP BID [facility] Last Admin: 10/17/17 10:03 Dose: 1 gm Ondansetron HCl (Zofran Inj) 4 mg IVP Q6H PRN PRN Reason: Nausea/Vomiting Last Admin: 10/10/17 21:10 Dose: 4 mg Pantoprazole Sodium (Protonix Inj) 40 mg IVP DAILY [facility] Last Admin: 10/17/17 10:03 Dose: 40 mg Polyethylene Glycol (Miralax) 17 gm PO BID PRN PRN Reason: Constipation Last Admin: 10/07/17 10:14 Dose: 17 gm Rosuvastatin Calcium (Crestor) 5 mg NG HS [facility] Last Admin: 10/16/17 21:45 Dose: 5 mg Saccharomyces Boulardii (Florastor) 250 mg NG BID [facility] Last Admin: 10/17/17 10:03 Dose: 250 mg Vitamin A (Vitamin A & D Oint Ud Foilpak) 0.5 ea TOP Q4 [facility] Last Admin: 10/17/17 08:04 Dose: 0.5 ea - Labs Labs: 10/17/17 06:25 10/17/17 06:23 PT 16.3 SECONDS (9.7-12.2) H 10/15/17 15:33 INR 1.4 10/15/17 15:33 APTT 30 SECONDS (21-34) D 10/15/17 15:33 Attending/Attestation - Attestation I have personally seen and examined this patient.: Yes I have fully participated in the care of the patient.: Yes I have reviewed all pertinent clinical information, including history, physical exam and plan: Yes Notes (Text): 10/17/17 11:42 77 year old female with h/o HTN, DM, CAD s/p CABG, breast cancer, hypothyroidism , , SSS s/p pacemaker who was admitted to hospital for evaluation of chest pain and vomiting, s/p NSTEMI, also with mesenteric ischemia s/p SB resection. 1. Rectal Bleeding 2. Mesenteric ischemia Plan: -no overt GI bleeding at hte moment -montior for further bleeding and hold anticoagulation -if bleeding develops, will considering endoscopy -had SB resection for ischemia -no Celiac/SMA stenosis or thrombosis was identified, ddx then includes embolic vs non-occlusive disease -continue abx -CLD -will follow
[2017-10-17] MEDS: Saccharomyces Boulardi 250 mg Cap NG SCH ×2 (10:03→17:55)
[2017-10-17 10:34] LABS: B-TYPE NATRIURETIC PEPTIDE 2590 pg/mL (0-900)
[2017-10-17 10:35] LABS: ARTERIAL BLOOD GAS HCO3 24.4 mmol/L (21-28); ARTERIAL BLOOD GAS O2 SAT 97.4 % (95-98); ARTERIAL BLOOD GAS PCO2 46 mm/Hg (35-45); ARTERIAL BLOOD GAS PH 7.35 (7.35-7.45); ARTERIAL BLOOD GAS PO2 87 mm/Hg (80-100); ARTERIAL BLOOD GAS TCO2 26.8 mmol/L (22-28)
[2017-10-17] MEDS: Dextrose 5%/0.9% NS 1,000 ML IV SCH (11:10)
--- NOTE | 2017-10-17 12:15 | RAD ---
HISTORY: sob COMPARISON: Chest x-ray performed 10/16/17 TECHNIQUE: Chest, one view. FINDINGS: Examination limited by habitus. There is a left-sided central venous catheter with tip overlying the proximal superior vena cava. LUNGS: No focal consolidation. Please note that chest x-ray has limited sensitivity for the detection of pulmonary masses. PLEURA: No significant pleural effusion identified. No definite pneumothorax . CARDIOVASCULAR: Right-sided pacemaker. 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 Borderline cardiomegaly. Atherosclerotic calcifications. OSSEOUS STRUCTURES: Degenerative changes. VISUALIZED UPPER ABDOMEN: Mild elevation of the hemidiaphragm. OTHER FINDINGS: None. IMPRESSION: Bibasilar atelectasis. Left-sided central venous catheter.
--- NOTE | 2017-10-17 12:35 | CP.CCUPN ---
CCU Subjective - Physician Review Subjective (Free Text): 10/17/17 12:30 Patient seen and examined at bedside on BiPAP, continue to have difficulty breathing, weak cough cxr is clear and ABG is ok may need to consider intubation if patient tires out CT today CCU Objective - Vital Signs / Intake & Output Vital Signs (Last 4 hours): Vital Signs Pulse Resp BP Pulse Ox 10/17/17 12:07 91/39 L 10/17/17 12:00 75 29 H 97 10/17/17 11:20 96 H 10/17/17 11:07 77 36 H 110/38 L 94 L 10/17/17 11:00 76 29 H 97 10/17/17 10:07 82 19 97/36 L 89 L 10/17/17 10:00 78 18 94 L 10/17/17 09:07 80 24 93/38 L 97 10/17/17 09:00 80 23 98 Intake and Output (Last 8hrs): Intake & Output 10/16/17 10/17/17 10/17/17 22:59 06:59 14:59 Intake Total 615 440 190 Output Total 200 301 Balance 415 139 190 Weight 187 lb Intake: IV 125 Intake, IV Amount 240 340 40 Left Distal Port Internal 40 40 10 Jugular Left Medial Port Internal 200 300 0 Jugular Left Proximal Port 0 30 Internal Jugular Oral 250 100 150 Output: Urine 300 Urine, Voided 300 Urine/Stool Mix 200 1 Other: # Voids Urine, Voided 0 100 0 # Bowel Movements 0 1 0 - Physical Exam Head: Positive for: Atraumatic, Normocephalic Pupils: Positive for: PERRL Extroacular Muscles: Positive for: EOMI Conjunctiva: Positive for: Normal Mouth: Positive for: Moist Mucous Membranes Respiratory/Chest: Positive for: Clear to Auscultation, Good Air Exchange Cardiovascular: Positive for: Regular Rate and Rhythm, Murmurs, Normal S1, S2 Abdomen: Positive for: Normal Bowel Sounds. Negative for: Tenderness, Distention, Peritoneal Signs Skin: Positive for: Warm Psychiatric: Positive for: Alert - Medications Active Medications: Active Medications Generic Name Dose Route Start Last Admin Trade Name Freq PRN Reason Stop Dose Admin Acetaminophen 650 mg 10/11/17 10:17 Tylenol 325mg Tab PO Q6 PRN Fever >100.4 F Albuterol/Ipratropium 3 ml 10/17/17 14:00 Duoneb 3 Mg/0.5 Mg (3 Ml) Ud INH RQ6 TIM Amiodarone HCl 400 mg 10/15/17 13:47 10/17/17 10:02 Cordarone PO 400 mg BID TIM Administration Diltiazem HCl 90 mg 10/15/17 12:00 10/17/17 06:00 Cardizem PO 90 mg Q6 TIM Administration Metronidazole 500 mg in 100 mls @ 100 mls/hr 10/07/17 22:00 10/17/17 06:00 Flagyl IVPB 100 mls/hr Q8 TIM Administration Meropenem 1 gm/ Sodium 100 mls @ 100 mls/hr 10/10/17 14:00 10/17/17 06:03 Chloride IVPB 100 mls/hr Q8H TIM Administration Dextrose/Sodium Chloride 1,000 mls @ 30 mls/hr 10/17/17 11:00 10/17/17 11:10 Dextrose 5%/0.9% Ns 1000 Ml IV 30 mls/hr .Q24H TIM Administration Insulin Human Regular 0 unit 10/15/17 11:30 10/17/17 07:58 Novolin R SC Not Given ACHS [facility] Protocol Levothyroxine Sodium 50 mcg 10/12/17 06:30 10/17/17 06:06 Synthroid PO 50 mcg DAILY@0630 TIM Administration Losartan Potassium 100 mg 10/12/17 10:00 10/17/17 10:04 Cozaar PO Not Given DAILY [facility] Mupirocin 0 gm 10/16/17 18:45 10/17/17 10:03 Bactroban Ointment TOP 1 gm BID TIM Administration Ondansetron HCl 4 mg 10/07/17 19:28 10/10/17 21:10 Zofran Inj IVP 4 mg Q6H PRN Administration Nausea/Vomiting Pantoprazole Sodium 40 mg 10/08/17 10:00 10/17/17 10:03 Protonix Inj IVP 40 mg DAILY TIM Administration Polyethylene Glycol 17 gm 10/06/17 15:08 10/07/17 10:14 Miralax PO 17 gm BID PRN Administration Constipation Rosuvastatin Calcium 5 mg 10/11/17 22:00 10/16/17 21:45 Crestor NG 5 mg HS TIM Administration Saccharomyces Boulardii 250 mg 10/10/17 11:15 10/17/17 10:03 Florastor NG 250 mg BID TIM Administration Vitamin A 0.5 ea 10/11/17 20:00 10/17/17 08:04 Vitamin A & D Oint Ud Foilpak TOP 0.5 ea Q4 TIM Administration - Patient Studies Lab Studies: Lab Studies 10/17/17 10/17/17 10/17/17 Range/Units 12:08 10:25 07:50 WBC (4.8-10.8) K/uL RBC (3.80-5.20) Mil/uL Hgb (11.0-16.0) g/dL Hct (34.0-47.0) % MCV (81.0-99.0) fL MCH (27.0-31.0) pg MCHC (33.0-37.0) g/dL RDW (11.5-14.5) % Plt Count (130-400) K/uL MPV (7.2-11.7) fL Neut % (Auto) (50.0-75.0) % Lymph % (Auto) (20.0-40.0) % Ramsey % (Auto) (0.0-10.0) % Eos % (Auto) (0.0-4.0) % Baso % (Auto) (0.0-2.0) % Neut # (1.8-7.0) K/uL Lymph # (1.0-4.3) K/uL Ramsey # (0.0-0.8) K/uL Eos # (0.0-0.7) K/uL Baso # (0.0-0.2) K/uL Neutrophils % (Manual) (50-75) % Lymphocytes % (Manual) (20-40) % Monocytes % (Manual) (0-10) % Platelet Estimate (NORMAL) Large Platelets Anisocytosis (manual) Puncture Site Lb pCO2 46 H (35-45) mm/Hg pO2 87 (80-100) mm/Hg HCO3 24.4 (21-28) mmol/L ABG pH 7.35 (7.35-7.45) ABG Total CO2 26.8 (22-28) mmol/L ABG O2 Saturation 97.4 (95-98) % ABG Base Excess -0.6 (-2.0-3.0) mmol/L Dayron Test Na ABG Potassium 3.9 (3.6-5.2) mmol/L A-a O2 Difference 283.0 mm/Hg Respiratory Index 3.3 Glucose 107 H (65-105) mg/dl Lactate 0.9 (0.7-2.1) mmol/L FiO2 60.0 % Inspiratory BiPAP 12 Expiratory BiPAP 5 Crit Value Called To Dr cowan Crit Value Called By Devonte [facility] Crit Value Read Back Y Blood Gas Notified Time 1040 Sodium 154.0 H (132-148) mmol/L Potassium (3.6-5.2) mmol/L Chloride 124.0 H (98-107) mmol/L Carbon Dioxide (22-30) mmol/L Anion Gap (10-20) BUN (7-17) mg/dL Creatinine (0.7-1.2) mg/dL Est GFR ( Amer) Est GFR (Non-Af Amer) POC Glucose (mg/dL) 111 H 121 H (65-110) mg/dL Random Glucose (65-105) mg/dL Calcium (8.6-10.4) mg/dl Ionized Calcium (4.80-5.60) mg/dL Phosphorus (2.5-4.5) mg/dL Magnesium (1.6-2.3) mg/dL Total Bilirubin (0.2-1.3) mg/dL AST (14-36) U/L ALT (9-52) U/L Alkaline Phosphatase (38-126) U/L NT-Pro-B Natriuret Pep (0-900) pg/mL Total Protein (6.3-8.3) g/dL Albumin (3.5-5.0) g/dL Globulin (2.2-3.9) gm/dL Albumin/Globulin Ratio (1.0-2.1) Arterial Blood Potassium 3.9 (3.6-5.2) mmol/L 10/17/17 10/17/17 10/16/17 Range/Units 06:25 06:23 21:17 WBC 20.8 H (4.8-10.8) K/uL RBC 3.18 L (3.80-5.20) Mil/uL Hgb 9.4 L (11.0-16.0) g/dL Hct 28.8 L (34.0-47.0) % MCV 90.6 (81.0-99.0) fL MCH 29.7 (27.0-31.0) pg MCHC 32.8 L (33.0-37.0) g/dL RDW 15.4 H (11.5-14.5) % Plt Count 323 (130-400) K/uL MPV 10.1 (7.2-11.7) fL Neut % (Auto) 88.3 H (50.0-75.0) % Lymph % (Auto) 6.2 L (20.0-40.0) % Ramsey % (Auto) 5.2 (0.0-10.0) % Eos % (Auto) 0.1 (0.0-4.0) % Baso % (Auto) 0.2 (0.0-2.0) % Neut # 18.4 H (1.8-7.0) K/uL Lymph # 1.3 (1.0-4.3) K/uL Ramsey # 1.1 H (0.0-0.8) K/uL Eos # 0.0 (0.0-0.7) K/uL Baso # 0.0 (0.0-0.2) K/uL Neutrophils % (Manual) 89 H (50-75) % Lymphocytes % (Manual) 7 L (20-40) % Monocytes % (Manual) 4 (0-10) % Platelet Estimate Normal (NORMAL) Large Platelets Present Anisocytosis (manual) Slight Puncture Site pCO2 (35-45) mm/Hg pO2 (80-100) mm/Hg HCO3 (21-28) mmol/L ABG pH (7.35-7.45) ABG Total CO2 (22-28) mmol/L ABG O2 Saturation (95-98) % ABG Base Excess (-2.0-3.0) mmol/L Dayron Test ABG Potassium (3.6-5.2) mmol/L A-a O2 Difference mm/Hg Respiratory Index Glucose (65-105) mg/dl Lactate (0.7-2.1) mmol/L FiO2 % Inspiratory BiPAP Expiratory BiPAP Crit Value Called To Crit Value Called By Crit Value Read Back Blood Gas Notified Time Sodium 152 H (132-148) mmol/L Potassium 4.1 (3.6-5.2) mmol/L Chloride 119 H (98-107) mmol/L Carbon Dioxide 25 (22-30) mmol/L Anion Gap 12 (10-20) BUN 38 H (7-17) mg/dL Creatinine 0.9 (0.7-1.2) mg/dL Est GFR ( Amer) > 60 Est GFR (Non-Af Amer) > 60 POC Glucose (mg/dL) 123 H (65-110) mg/dL Random Glucose 95 (65-105) mg/dL Calcium 8.3 L (8.6-10.4) mg/dl Ionized Calcium (4.80-5.60) mg/dL Phosphorus 3.6 (2.5-4.5) mg/dL Magnesium 1.9 (1.6-2.3) mg/dL Total Bilirubin 0.4 (0.2-1.3) mg/dL AST 27 (14-36) U/L ALT 26 (9-52) U/L Alkaline Phosphatase 87 (38-126) U/L NT-Pro-B Natriuret Pep 2590 H (0-900) pg/mL Total Protein 5.2 L (6.3-8.3) g/dL Albumin 2.4 L (3.5-5.0) g/dL Globulin 2.8 (2.2-3.9) gm/dL Albumin/Globulin Ratio 0.9 L (1.0-2.1) Arterial Blood Potassium (3.6-5.2) mmol/L 10/16/17 10/16/17 10/15/17 Range/Units 16:06 15:14 08:32 WBC 25.5 H (4.8-10.8) K/uL RBC 3.92 (3.80-5.20) Mil/uL Hgb 11.2 (11.0-16.0) g/dL Hct 35.3 (34.0-47.0) % MCV 90.1 (81.0-99.0) fL MCH 28.7 (27.0-31.0) pg MCHC 31.8 L (33.0-37.0) g/dL RDW 15.5 H (11.5-14.5) % Plt Count 316 (130-400) K/uL MPV 10.0 (7.2-11.7) fL Neut % (Auto) (50.0-75.0) % Lymph % (Auto) (20.0-40.0) % Ramsey % (Auto) (0.0-10.0) % Eos % (Auto) (0.0-4.0) % Baso % (Auto) (0.0-2.0) % Neut # (1.8-7.0) K/uL Lymph # (1.0-4.3) K/uL Ramsey # (0.0-0.8) K/uL Eos # (0.0-0.7) K/uL Baso # (0.0-0.2) K/uL Neutrophils % (Manual) (50-75) % Lymphocytes % (Manual) (20-40) % Monocytes % (Manual) (0-10) % Platelet Estimate (NORMAL) Large Platelets Anisocytosis (manual) Puncture Site pCO2 (35-45) mm/Hg pO2 (80-100) mm/Hg HCO3 (21-28) mmol/L ABG pH (7.35-7.45) ABG Total CO2 (22-28) mmol/L ABG O2 Saturation (95-98) % ABG Base Excess (-2.0-3.0) mmol/L Dayron Test ABG Potassium (3.6-5.2) mmol/L A-a O2 Difference mm/Hg Respiratory Index Glucose (65-105) mg/dl Lactate (0.7-2.1) mmol/L FiO2 % Inspiratory BiPAP Expiratory BiPAP Crit Value Called To Crit Value Called By Crit Value Read Back Blood Gas Notified Time Sodium (132-148) mmol/L Potassium (3.6-5.2) mmol/L Chloride (98-107) mmol/L Carbon Dioxide (22-30) mmol/L Anion Gap (10-20) BUN (7-17) mg/dL Creatinine (0.7-1.2) mg/dL Est GFR ( Amer) Est GFR (Non-Af Amer) POC Glucose (mg/dL) 140 H (65-110) mg/dL Random Glucose (65-105) mg/dL Calcium (8.6-10.4) mg/dl Ionized Calcium 5.6 (4.80-5.60) mg/dL Phosphorus (2.5-4.5) mg/dL Magnesium (1.6-2.3) mg/dL Total Bilirubin (0.2-1.3) mg/dL AST (14-36) U/L ALT (9-52) U/L Alkaline Phosphatase (38-126) U/L NT-Pro-B Natriuret Pep (0-900) pg/mL Total Protein (6.3-8.3) g/dL Albumin (3.5-5.0) g/dL Globulin (2.2-3.9) gm/dL Albumin/Globulin Ratio (1.0-2.1) Arterial Blood Potassium (3.6-5.2) mmol/L Laboratory Results - last 24 hr 10/15/17 10/16/17 10/16/17 08:32 15:14 16:06 WBC 25.5 H RBC 3.92 Hgb 11.2 Hct 35.3 MCV 90.1 MCH 28.7 MCHC 31.8 L RDW 15.5 H Plt Count 316 MPV 10.0 Neut % (Auto) Lymph % (Auto) Ramsey % (Auto) Eos % (Auto) Baso % (Auto) Neut # Lymph # Ramsey # Eos # Baso # Neutrophils % (Manual) Lymphocytes % (Manual) Monocytes % (Manual) Platelet Estimate Large Platelets Anisocytosis (manual) Puncture Site pCO2 pO2 HCO3 ABG pH ABG Total CO2 ABG O2 Saturation ABG Base Excess Dayron Test ABG Potassium A-a O2 Difference Respiratory Index Glucose Lactate FiO2 Inspiratory BiPAP Expiratory BiPAP Crit Value Called To Crit Value Called By Crit Value Read Back Blood Gas Notified Time Sodium Potassium Chloride Carbon Dioxide Anion Gap BUN Creatinine Est GFR ( Amer) Est GFR (Non-Af Amer) POC Glucose (mg/dL) 140 H Random Glucose Calcium Ionized Calcium 5.6 Phosphorus Magnesium Total Bilirubin AST ALT Alkaline Phosphatase NT-Pro-B Natriuret Pep Total Protein Albumin Globulin Albumin/Globulin Ratio Arterial Blood Potassium 10/16/17 10/17/17 10/17/17 21:17 06:23 06:25 WBC 20.8 H RBC 3.18 L Hgb 9.4 L Hct 28.8 L MCV 90.6 MCH 29.7 MCHC 32.8 L RDW 15.4 H Plt Count 323 MPV 10.1 Neut % (Auto) 88.3 H Lymph % (Auto) 6.2 L Ramsey % (Auto) 5.2 Eos % (Auto) 0.1 Baso % (Auto) 0.2 Neut # 18.4 H Lymph # 1.3 Ramsey # 1.1 H Eos # 0.0 Baso # 0.0 Neutrophils % (Manual) 89 H Lymphocytes % (Manual) 7 L Monocytes % (Manual) 4 Platelet Estimate Normal Large Platelets Present Anisocytosis (manual) Slight Puncture Site pCO2 pO2 HCO3 ABG pH ABG Total CO2 ABG O2 Saturation ABG Base Excess Dayron Test ABG Potassium A-a O2 Difference Respiratory Index Glucose Lactate FiO2 Inspiratory BiPAP Expiratory BiPAP Crit Value Called To Crit Value Called By Crit Value Read Back Blood Gas Notified Time Sodium 152 H Potassium 4.1 Chloride 119 H Carbon Dioxide 25 Anion Gap 12 BUN 38 H Creatinine 0.9 Est GFR ( Amer) > 60 Est GFR (Non-Af Amer) > 60 POC Glucose (mg/dL) 123 H Random Glucose 95 Calcium 8.3 L Ionized Calcium Phosphorus 3.6 Magnesium 1.9 Total Bilirubin 0.4 AST 27 ALT 26 Alkaline Phosphatase 87 NT-Pro-B Natriuret Pep 2590 H Total Protein 5.2 L Albumin 2.4 L Globulin 2.8 Albumin/Globulin Ratio 0.9 L Arterial Blood Potassium 10/17/17 10/17/17 10/17/17 07:50 10:25 12:08 WBC RBC Hgb Hct MCV MCH MCHC RDW Plt Count MPV Neut % (Auto) Lymph % (Auto) Ramsey % (Auto) Eos % (Auto) Baso % (Auto) Neut # Lymph # Ramsey # Eos # Baso # Neutrophils % (Manual) Lymphocytes % (Manual) Monocytes % (Manual) Platelet Estimate Large Platelets Anisocytosis (manual) Puncture Site Lb pCO2 46 H pO2 87 HCO3 24.4 ABG pH 7.35 ABG Total CO2 26.8 ABG O2 Saturation 97.4 ABG Base Excess -0.6 Dayron Test Na ABG Potassium 3.9 A-a O2 Difference 283.0 Respiratory Index 3.3 Glucose 107 H Lactate 0.9 FiO2 60.0 Inspiratory BiPAP 12 Expiratory BiPAP 5 Crit Value Called To Dr cowan Crit Value Called By Devonte [facility]ters [facility] Crit Value Read Back Y Blood Gas Notified Time 1040 Sodium 154.0 H Potassium Chloride 124.0 H Carbon Dioxide Anion Gap BUN Creatinine Est GFR ( Amer) Est GFR (Non-Af Amer) POC Glucose (mg/dL) 121 H 111 H Random Glucose Calcium Ionized Calcium Phosphorus Magnesium Total Bilirubin AST ALT Alkaline Phosphatase NT-Pro-B Natriuret Pep Total Protein Albumin Globulin Albumin/Globulin Ratio Arterial Blood Potassium 3.9 EKG/Cardiology Studies: Cardiology / EKG Studies 10/17/17 09:43 EKG [ELECTROCARDIOGRAM] Routine Comment: Mode Of Transportation: Reason For Exam: Check rhythm Isolation: Contact Fingerstick Blood Sugar Results: 121 Critical Care Progress Note - Nutrition Nutrition: Nutrition Category Date Time Status Liquid Diet [DIET] Diets 10/16/17 Breakfast Active Assessment/Plan - Assessment and Plan (Free Text) Assessment: 77F Afib, rate controlled. GI bleed over the weekend. Held anticoag Plan: Psych: No acute issues Neuro: No Acute issues Cards: Afib, rate controlled anticoag held due to GI Bleed amiodarone 400 PO BID, cardizem 90 PO Q6, losartan PO Q6 Pulm: BiPAP for respiratory difficulty agonal breathing yet CXR and ABG are not impressive may need to consider intubation if continues to have SOB GI: s/p smal bowel resection for ischemic bowel, flagyl Clear liquid diet Renal: no acute issues PPX: Protnoix
[2017-10-17] MEDS ORDERED: Iodixanol 320 MG/ML 100 ML BOTTLE IV ONE (14:09)
--- NOTE | 2017-10-17 14:28 | CP.PCM.PN ---
Subjective - Date & Time of Evaluation Date of Evaluation: 10/17/17 Time of Evaluation: 02:00 - Subjective Subjective: dictated Objective - Vital Signs/Intake and Output Vital Signs (last 24 hours): Temp Pulse Resp BP Pulse Ox 98.8 F 75 29 H 91/39 L 100 10/17/17 12:00 10/17/17 13:09 10/17/17 12:00 10/17/17 12:07 10/17/17 12:00 Intake and Output: 10/17/17 10/17/17 06:59 18:59 Intake Total 710 190 Output Total 501 Balance 209 190 - Medications Medications: Current Medications Acetaminophen (Tylenol 325mg Tab) 650 mg PO Q6 PRN PRN Reason: Fever >100.4 F Albuterol/Ipratropium (Duoneb 3 Mg/0.5 Mg (3 Ml) Ud) 3 ml INH RQ6 [facility] Amiodarone HCl (Cordarone) 400 mg PO BID [facility] Last Admin: 10/17/17 10:02 Dose: 400 mg Diltiazem HCl (Cardizem) 90 mg PO Q6 [facility] Last Admin: 10/17/17 12:36 Dose: Not Given Metronidazole (Flagyl) 500 mg in 100 mls @ 100 mls/hr IVPB Q8 [facility] Last Admin: 10/17/17 06:00 Dose: 100 mls/hr Meropenem 1 gm/ Sodium (Chloride) 100 mls @ 100 mls/hr IVPB Q8H [facility] Last Admin: 10/17/17 06:03 Dose: 100 mls/hr Dextrose/Sodium Chloride (Dextrose 5%/0.9% Ns 1000 Ml) 1,000 mls @ 30 mls/hr IV .Q24H [facility] Last Admin: 10/17/17 11:10 Dose: 30 mls/hr Insulin Human Regular (Novolin R) 0 unit SC ACHS TIM PRN Reason: Protocol Last Admin: 10/17/17 12:36 Dose: Not Given Levothyroxine Sodium (Synthroid) 50 mcg PO DAILY@0630 [facility] Last Admin: 10/17/17 06:06 Dose: 50 mcg Losartan Potassium (Cozaar) 100 mg PO DAILY [facility] Last Admin: 10/17/17 10:04 Dose: Not Given Mupirocin (Bactroban Ointment) 0 gm TOP BID [facility] Last Admin: 10/17/17 10:03 Dose: 1 gm Ondansetron HCl (Zofran Inj) 4 mg IVP Q6H PRN PRN Reason: Nausea/Vomiting Last Admin: 10/10/17 21:10 Dose: 4 mg Pantoprazole Sodium (Protonix Inj) 40 mg IVP DAILY [facility] Last Admin: 10/17/17 10:03 Dose: 40 mg Polyethylene Glycol (Miralax) 17 gm PO BID PRN PRN Reason: Constipation Last Admin: 10/07/17 10:14 Dose: 17 gm Rosuvastatin Calcium (Crestor) 5 mg NG HS [facility] Last Admin: 10/16/17 21:45 Dose: 5 mg Saccharomyces Boulardii (Florastor) 250 mg NG BID [facility] Last Admin: 10/17/17 10:03 Dose: 250 mg Vitamin A (Vitamin A & D Oint Ud Foilpak) 0.5 ea TOP Q4 [facility] Last Admin: 10/17/17 12:36 Dose: Not Given - Labs Labs: 10/17/17 06:25 10/17/17 06:23 PT 16.3 SECONDS (9.7-12.2) H 10/15/17 15:33 INR 1.4 10/15/17 15:33 APTT 30 SECONDS (21-34) D 10/15/17 15:33
--- NOTE | 2017-10-17 15:10 | CT ---
PROCEDURE: CT Chest with contrast (Pulmonary Angiogram) HISTORY: Shortness of breath, acutely falling oxygen sats COMPARISON: None available. TECHNIQUE: Axial computed tomography images were obtained of the chest in the pulmonary arterial phase of enhancement. Coronal and sagittal reformatted images were created and reviewed. Intravenous contrast dose: 100 mL Visipaque 320 Radiation dose: Total exam DLP = 556.40 mGy-cm. This CT exam was performed using one or more of the following dose reduction techniques: Automated exposure control, adjustment of the mA and/or kV according to patient size, and/or use of iterative reconstruction technique. FINDINGS: PULMONARY ARTERIES: Unremarkable. No pulmonary embolism. AORTA: No acute findings. No thoracic aortic aneurysm. LUNGS: Bilateral lower lobe compressive subsegmental atelectasis secondary to pleural effusions. No pulmonary infiltrate. Calcified granuloma in right upper lobe and right middle lobe. PLEURAL SPACES: Small bilateral pleural effusion. No pneumothorax. HEART: Status post CABG. Sternotomy wires noted. Permanent pacemaker LYMPH NODES: No lymphadenopathy. BONES, CHEST WALL: Unremarkable. No fracture or destructive lesion OTHER FINDINGS: UnremarkableUpper abdomen is significant for very large fluid density mass in right lobe of liver, at least 16.6 cm in the A-P dimension, not entirely included in this examination. This is essentially unchanged compared to examination of 02/07/2014. A 2nd smaller fluid density mass is seen in the left lobe of the liver, approximately 4.2 cm, again unchanged. A 3rd cystic mass previously identified in the left lobe of the liver is no longer evident. There is a smaller cystic mass identified in the left lobe on current examination, approximately 1.8 cm, unchanged. . IMPRESSION: No evidence of pulmonary embolism. Small bilateral pleural effusion with bilateral lower lobe compressive atelectasis. Old granulomatous disease. Large stable cystic mass in the right lobe of the liver since 2013.
--- NOTE | 2017-10-17 15:22 | CP.PCM.PN ---
Subjective - Date & Time of Evaluation Date of Evaluation: 10/17/17 Time of Evaluation: 07:30 - Subjective Subjective: General Surgery Note for Dr. Hinton Patient seen and examined at bedside. No acute event overnight. Patient was put on BiPAP yesterday for desaturation. Patient denies pain. She also denies nausea /vomiting. Patient is complaining about having mitten restraints and wants them removed. No other complaints at this time. Objective - Vital Signs/Intake and Output Vital Signs (last 24 hours): Temp Pulse Resp BP Pulse Ox 98.8 F 75 29 H 91/39 L 100 10/17/17 12:00 10/17/17 13:09 10/17/17 12:00 10/17/17 12:07 10/17/17 12:00 Intake and Output: 10/17/17 10/17/17 06:59 18:59 Intake Total 710 190 Output Total 501 Balance 209 190 - Medications Medications: Current Medications Acetaminophen (Tylenol 325mg Tab) 650 mg PO Q6 PRN PRN Reason: Fever >100.4 F Albuterol/Ipratropium (Duoneb 3 Mg/0.5 Mg (3 Ml) Ud) 3 ml INH RQ6 [facility] Amiodarone HCl (Cordarone) 400 mg PO BID [facility] Last Admin: 10/17/17 10:02 Dose: 400 mg Diltiazem HCl (Cardizem) 90 mg PO Q6 [facility] Last Admin: 10/17/17 12:36 Dose: Not Given Metronidazole (Flagyl) 500 mg in 100 mls @ 100 mls/hr IVPB Q8 [facility] Last Admin: 10/17/17 13:10 Dose: 100 mls/hr Meropenem 1 gm/ Sodium (Chloride) 100 mls @ 100 mls/hr IVPB Q8H [facility] Last Admin: 10/17/17 14:10 Dose: 100 mls/hr Dextrose/Sodium Chloride (Dextrose 5%/0.9% Ns 1000 Ml) 1,000 mls @ 30 mls/hr IV .Q24H [facility] Last Admin: 10/17/17 11:10 Dose: 30 mls/hr Insulin Human Regular (Novolin R) 0 unit SC ACHS TIM PRN Reason: Protocol Last Admin: 10/17/17 12:36 Dose: Not Given Levothyroxine Sodium (Synthroid) 50 mcg PO DAILY@0630 [facility] Last Admin: 10/17/17 06:06 Dose: 50 mcg Losartan Potassium (Cozaar) 100 mg PO DAILY [facility] Last Admin: 10/17/17 10:04 Dose: Not Given Mupirocin (Bactroban Ointment) 0 gm TOP BID [facility] Last Admin: 10/17/17 10:03 Dose: 1 gm Ondansetron HCl (Zofran Inj) 4 mg IVP Q6H PRN PRN Reason: Nausea/Vomiting Last Admin: 10/10/17 21:10 Dose: 4 mg Pantoprazole Sodium (Protonix Inj) 40 mg IVP DAILY [facility] Last Admin: 10/17/17 10:03 Dose: 40 mg Polyethylene Glycol (Miralax) 17 gm PO BID PRN PRN Reason: Constipation Last Admin: 10/07/17 10:14 Dose: 17 gm Rosuvastatin Calcium (Crestor) 5 mg NG HS [facility] Last Admin: 10/16/17 21:45 Dose: 5 mg Saccharomyces Boulardii (Florastor) 250 mg NG BID [facility] Last Admin: 10/17/17 10:03 Dose: 250 mg Vitamin A (Vitamin A & D Oint Ud Foilpak) 0.5 ea TOP Q4 [facility] Last Admin: 10/17/17 15:08 Dose: 0.5 ea - Labs Labs: 10/17/17 06:25 10/17/17 06:23 PT 16.3 SECONDS (9.7-12.2) H 10/15/17 15:33 INR 1.4 10/15/17 15:33 APTT 30 SECONDS (21-34) D 10/15/17 15:33 - Constitutional Appears: No Acute Distress, Other (BIPAP mask on) - Head Exam Head Exam: ATRAUMATIC, NORMOCEPHALIC - Eye Exam Eye Exam: Normal appearance - ENT Exam ENT Exam: Mucous Membranes Moist - Respiratory Exam Respiratory Exam: NORMAL BREATHING PATTERN (on BIPAP) - Cardiovascular Exam Cardiovascular Exam: REGULAR RHYTHM - GI/Abdominal Exam GI & Abdominal Exam: Soft. absent: Distended, Firm, Guarding, Rigid, Tenderness , Rebound Additional comments: midline incision clean dry and intact - Extremities Exam Extremities Exam: Normal Capillary Refill - Neurological Exam Neurological Exam: Alert, Awake, Oriented x3 - Psychiatric Exam Psychiatric exam: Normal Affect, Normal Mood - Skin Skin Exam: Dry, Intact, Normal Color, Warm Assessment and Plan - Assessment and Plan (Free Text) Plan: 77F s/p ex-lap with small bowel resection POD#7 IV antibiotics Gentle IV hydration CLD, ADAT incentive spirometer Bipap as needed Management as per ICU Discussed with Dr Jamaal Ramires PGY1
[2017-10-17] MEDS ORDERED: Sodium Chloride 0.9% 1,000 ML IV ONE (15:51)
[2017-10-17] MEDS ORDERED: Sodium Bicarbonate (8.4%) 50 Meq Syringe ONE (15:53)
[2017-10-17] MEDS ORDERED: Sodium Bicarbonate (8.4%) 50 Meq Syringe IV ONE (15:57)
[2017-10-17 15:59] LABS: ARTERIAL BLOOD GAS HCO3 22.9 mmol/L (21-28); ARTERIAL BLOOD GAS O2 SAT 46.9 % (95-98); ARTERIAL BLOOD GAS PCO2 71 mm/Hg (35-45); ARTERIAL BLOOD GAS PH 7.22 (7.35-7.45); ARTERIAL BLOOD GAS PO2 27 mm/Hg (80-100); ARTERIAL BLOOD GAS TCO2 31.3 mmol/L (22-28)
--- NOTE | 2017-10-17 16:23 | PCM.RRT ---
<Tommy Chang - Last Filed: 10/17/17 16:21> SHOPPING CENTRE MANAGER Nurses Assessment - Situation Date: 10/17/17 Time SHOPPING CENTRE MANAGER was called: 15:55 SHOPPING CENTRE MANAGER Location:: I ICU Room Number: 18 SHOPPING CENTRE MANAGER Reason for Call: O2 Saturation below 90% SHOPPING CENTRE MANAGER Called By: Physician - IV IV Inserted during SHOPPING CENTRE MANAGER?: No IV Fluids Initiated During SHOPPING CENTRE MANAGER?: NS New IV Insertion Tolerance: Excellent - Respiratory SHOPPING CENTRE MANAGER Delivery Method: Intubated Received Nebulizer Treatments: No Was the Patient Ventilated with Bag/Mask 100% O2?: Yes Secretions Suctioned?: Yes Was the Patient Intubated?: Yes Was the Patient Placed on a Ventilator?: Yes - Ventilator Settings Mode: PRVC PEEP/CPAP (cm H2O): 5 FIO2 (% Oxygen): 100 - Medication Medications Administered During SHOPPING CENTRE MANAGER: epi, sodium bicarb, atropine, levophed - Diagnostic Test Ordered EKG: No Chest X-Ray: Yes CT Scan: No - Stat Labs Ordered SHOPPING CENTRE MANAGER Stat Labs Ordered: CBC, ABG CPR started during SHOPPING CENTRE MANAGER?: Yes - [place] Coma Scale Coma Scale Eye Opening: No response Coma Scale Verbal: No response - Sepsis Screen Part 1 Sepsis Screen Part 1: Hypotensive - Time SHOPPING CENTRE MANAGER Ended Time SHOPPING CENTRE MANAGER Ended: 16:10 - Recommendations 5) SHOPPING CENTRE MANAGER Level of Care Recommendations: Remain in current setting Notifications: Attending Physician, Family or Designated Caregiver <Mary Yarbrough - Last Filed: 10/25/17 22:04> Plan - Assessment of Findings&Treatment Plan Patient developed acute respiratory arrest, intubated with the glydscope. Postintubation patient developed a cardiac arrest, CPR immediately was given. Postintubation in the posterior CPR patient developed hypertension, and the patient was treated appropriately. Will continue to currently monitor the patient.
[2017-10-17] MEDS ORDERED: Etomidate 20 mg/10ml Inj IV ONE (16:36)
[2017-10-17] MEDS ORDERED: Sodium Bicarbonate (8.4%) 50 Meq Syringe IVP ONE (16:37)
--- NOTE | 2017-10-17 16:39 | RAD ---
PROCEDURE: CHEST RADIOGRAPH, 1 VIEW HISTORY: intubation COMPARISON: None available. FINDINGS: In situ,, tip of which lies approximately 4.97 cm above mic. Left IJ central line with tip in the IJV/brachiocephalic junction unchanged. LUNGS: Patchy infiltrate seen in the left mid to lower lung field. Probable granuloma right mid to lower lung zone unchanged. PLEURA: No pneumothorax or pleural fluid seen. CARDIOVASCULAR: Cardiac silhouette stable. No change bipolar pacemaker comments sternotomy wires are CABG. OSSEOUS STRUCTURES: No significant abnormalities. VISUALIZED UPPER ABDOMEN: Normal. OTHER FINDINGS: None. IMPRESSION: Support lines and tubes as above. Patchy infiltrates seen throughout the left mid to lower lung field. Probable granuloma right mid to lower lung field unchanged
[2017-10-17 16:56] LABS: BASO % 0.1 % (0.0-2.0); EOS % 0.2 % (0.0-4.0); LYMPH # 0.6 K/uL (1.0-4.3); LYMPH % 4.5 % (20.0-40.0); MEAN CELL VOLUME 91.2 fL (81.0-99.0); MEAN CORPUSCULAR HEMOGLOBIN 28.6 pg (27.0-31.0); MEAN CORPUSCULAR HGB CONC 31.4 g/dL (33.0-37.0); MEAN PLATELET VOLUME 9.4 fL (7.2-11.7); MONO # 0.5 K/uL (0.0-0.8); MONO % 3.4 % (0.0-10.0); NEUT # 13.1 K/uL (1.8-7.0); NEUT % 91.8 % (50.0-75.0); PLATELET COUNT 316 K/uL (130-400); RBC 2.53 Mil/uL (3.80-5.20); RED CELL DISTRIBUTION WIDTH 15.5 % (11.5-14.5); WHITE BLOOD COUNT 14.3 K/uL (4.8-10.8)
[2017-10-17 17:03] LABS: HEMOGLOBIN 7.2 g/dL (11.0-16.0)
[2017-10-17 17:04] LABS: INR 1.3; PROTHROMBIN TIME 14.7 SECONDS (9.7-12.2)
[2017-10-17 17:38] LABS: ALB/GLOB RATIO 0.9 (1.0-2.1); ALBUMIN 1.9 g/dL (3.5-5.0); BANDS 1 % (0-2); CALCIUM 7.5 mg/dl (8.6-10.4); LYMPHOCYTE 4 % (20-40); MAGNESIUM 1.8 mg/dL (1.6-2.3); MONOCYTE 4 % (0-10); NEUTROPHIL 91 % (50-75); TOTAL CELLS COUNTED 100
[2017-10-17 17:39] LABS: ANISOCYTOSIS SLIGHT; HYPOCHROMIC SLIGHT; PLATELET ESTIMATE NORMAL (NORMAL); POLYCHROMIC SLIGHT
[2017-10-17 17:42] LABS: ARTERIAL BLOOD GAS HCO3 24.5 mmol/L (21-28); ARTERIAL BLOOD GAS O2 SAT 99.1 % (95-98); ARTERIAL BLOOD GAS PCO2 49 mm/Hg (35-45); ARTERIAL BLOOD GAS PH 7.33 (7.35-7.45); ARTERIAL BLOOD GAS PO2 295 mm/Hg (80-100); ARTERIAL BLOOD GAS TCO2 27.3 mmol/L (22-28)
[2017-10-17 17:55] LABS: CK-MB 1.48 ng/mL (0.0-3.38); TROPONIN I 0.045 ng/mL (0.00-0.120)
--- NOTE | 2017-10-17 18:52 | CP.PCM.PN ---
Subjective - Date & Time of Evaluation Date of Evaluation: 10/16/17 Time of Evaluation: 17:00 - Subjective Subjective: Patient seen and evaluated on BiPAP Denies chest pain and dyspnea Objective - Vital Signs/Intake and Output Vital Signs (last 24 hours): Temp Pulse Resp BP Pulse Ox 97.8 F 86 21 82/37 L 100 10/17/17 18:45 10/17/17 18:45 10/17/17 18:45 10/17/17 18:45 10/17/17 16:58 Intake and Output: 10/17/17 10/17/17 06:59 18:59 Intake Total 710 248 Output Total 501 Balance 209 248 - Medications Medications: Current Medications Acetaminophen (Tylenol 325mg Tab) 650 mg PO Q6 PRN PRN Reason: Fever >100.4 F Albuterol/Ipratropium (Duoneb 3 Mg/0.5 Mg (3 Ml) Ud) 3 ml INH RQ6 TIM Diltiazem HCl (Cardizem) 90 mg PO Q6 TIM Last Admin: 10/17/17 17:55 Dose: Not Given Metronidazole (Flagyl) 500 mg in 100 mls @ 100 mls/hr IVPB Q8 TIM Last Admin: 10/17/17 13:10 Dose: 100 mls/hr Meropenem 1 gm/ Sodium (Chloride) 100 mls @ 100 mls/hr IVPB Q8H [facility] Last Admin: 10/17/17 14:10 Dose: 100 mls/hr Dextrose/Sodium Chloride (Dextrose 5%/0.9% Ns 1000 Ml) 1,000 mls @ 30 mls/hr IV .Q24H [facility] Last Admin: 10/17/17 11:10 Dose: 30 mls/hr Norepinephrine Bitartrate 8 mg (/ Sodium Chloride) 258 mls @ 7.74 mls/hr IV .Q24H PRN; Protocol; 4 MCG/MIN PRN Reason: TITRATE PER MD ORDER Last Titration: 10/17/17 16:55 Dose: 14 mcg/min, 27.09 mls/hr Amiodarone HCl 900 mg/ (Dextrose) 500 mls @ 33.33 mls/hr IV .Q15H1M ONE; 1 MG/ MIN PRN Reason: Protocol Stop: 10/18/17 08:00 Last Admin: 10/17/17 16:58 Dose: 33.33 mls/hr Insulin Human Regular (Novolin R) 0 unit SC Q6H TIM PRN Reason: Protocol Last Admin: 10/17/17 17:49 Dose: Not Given Levothyroxine Sodium (Synthroid) 50 mcg PO DAILY@0630 [facility] Last Admin: 10/17/17 06:06 Dose: 50 mcg Losartan Potassium (Cozaar) 100 mg PO DAILY [facility] Last Admin: 10/17/17 10:04 Dose: Not Given Mupirocin (Bactroban Ointment) 0 gm TOP BID [facility] Last Admin: 10/17/17 17:54 Dose: 1 gm Ondansetron HCl (Zofran Inj) 4 mg IVP Q6H PRN PRN Reason: Nausea/Vomiting Last Admin: 10/10/17 21:10 Dose: 4 mg Pantoprazole Sodium (Protonix Inj) 40 mg IVP BID [facility] Last Admin: 10/17/17 17:51 Dose: Not Given Polyethylene Glycol (Miralax) 17 gm PO BID PRN PRN Reason: Constipation Last Admin: 10/07/17 10:14 Dose: 17 gm Rosuvastatin Calcium (Crestor) 5 mg NG HS [facility] Last Admin: 10/16/17 21:45 Dose: 5 mg Saccharomyces Boulardii (Florastor) 250 mg NG BID [facility] Last Admin: 10/17/17 17:55 Dose: Not Given Vitamin A (Vitamin A & D Oint Ud Foilpak) 0.5 ea TOP Q4 [facility] Last Admin: 10/17/17 15:08 Dose: 0.5 ea - Labs Labs: 10/17/17 16:51 10/17/17 16:51 PT 14.7 SECONDS (9.7-12.2) H 10/17/17 16:51 INR 1.3 10/17/17 16:51 APTT 26 SECONDS (21-34) 10/17/17 16:51
[2017-10-17] MEDS: Albuterol-Ipratrop 3 mg / 0.5 (3 ml) UD INH SCH (20:20)
--- NOTE | 2017-10-17 21:37 | PN ---
DATE: SUBJECTIVE: The patient was seen today. She was dyspneic, on BiPAP and she was going to go for a CTA. PHYSICAL EXAMINATION: VITAL SIGNS: Pulse was 75, blood pressure 91/39, respirations on FiO2 of 60% and while I am writing this, I find she has been intubated as she went into [employer] INS[employer] and she was getting and they have repeated the labs right now. HEENT: Head is atraumatic, normocephalic. NECK: Supple. LUNGS: She was in respiratory distress. HEART: S1, S2 regular. ABDOMEN: Soft. Surgical site has looked unremarkable. EXTREMITIES: Had no edema. LABORATORY DATA: Her white count was 20.8 at this time and her white count has gone up before because of the tarry stools and she was on a blood thinner for ischemic bowel. Since she is intubated now, we will order sputum C and S and I am waiting for her labs to come back would help. We will follow. Reji Lawson MD
[2017-10-17 22:10] LABS: ALB/GLOB RATIO 0.9 (1.0-2.1); ALBUMIN 2.6 g/dL (3.5-5.0); CALCIUM 8.4 mg/dl (8.6-10.4); MAGNESIUM 1.9 mg/dL (1.6-2.3)
[2017-10-17 22:20] LABS: CK-MB 1.51 ng/mL (0.0-3.38); TROPONIN I 0.08 ng/mL (0.00-0.120)
--- NOTE | 2017-10-17 22:22 | CP.PCM.PN ---
Subjective - Date & Time of Evaluation Date of Evaluation: 10/17/17 Time of Evaluation: 17:20 - Subjective Subjective: Medical Attending Note: Patient was called as bhavya leos following unresponsiveness and lack of pulse. Patient was intubated, received EPI and bicarbonate. ROSC returned. Prior to event, patient had completed CT angio which is negative for PE. Patient at code dafne has fecal matter which appears dark tarry stool and as well as through NGT on low-intermittent suction. Repeat labs showed drop in hgb, patient to receive 2 units of PRBC. Following event, I re-evaluated the patient is awake and alert, she is able to follow commands such as to lift her hands up and to shake her head. Patient's son, Theodore at bedside. I updated him in regards to event prior to arrival. She is going to receive PRBC transfusion at bedside. I've also updated the IM resident on cardiology as well as general surgery marketing research intern as well in regards to event this afternoon. ROS limited secondary to intubated during Code. Objective - Vital Signs/Intake and Output Vital Signs (last 24 hours): Temp Pulse Resp BP Pulse Ox 98.2 F 77 22 133/43 L 100 10/17/17 20:30 10/17/17 20:30 10/17/17 20:30 10/17/17 20:30 10/17/17 19:36 Intake and Output: 10/17/17 10/18/17 18:59 06:59 Intake Total 1712.2 532.1 Output Total 260 40 Balance 1452.2 492.1 - Medications Medications: Current Medications Acetaminophen (Tylenol 325mg Tab) 650 mg PO Q6 PRN PRN Reason: Fever >100.4 F Albuterol/Ipratropium (Duoneb 3 Mg/0.5 Mg (3 Ml) Ud) 3 ml INH RQ6 TIM Last Admin: 10/17/17 20:20 Dose: 3 ml Diltiazem HCl (Cardizem) 90 mg PO Q6 TIM Last Admin: 10/17/17 17:55 Dose: Not Given Hydromorphone HCl (Dilaudid) 1 mg IVP Q4H PRN PRN Reason: Anxiety Metronidazole (Flagyl) 500 mg in 100 mls @ 100 mls/hr IVPB Q8 TIM Last Admin: 10/17/17 13:10 Dose: 100 mls/hr Meropenem 1 gm/ Sodium (Chloride) 100 mls @ 100 mls/hr IVPB Q8H [facility] Last Admin: 10/17/17 14:10 Dose: 100 mls/hr Dextrose/Sodium Chloride (Dextrose 5%/0.9% Ns 1000 Ml) 1,000 mls @ 30 mls/hr IV .Q24H [facility] Last Admin: 10/17/17 11:10 Dose: 30 mls/hr Norepinephrine Bitartrate 8 mg (/ Sodium Chloride) 258 mls @ 7.74 mls/hr IV .Q24H PRN; Protocol; 4 MCG/MIN PRN Reason: TITRATE PER MD ORDER Last Titration: 10/17/17 18:51 Dose: 18 mcg/min, 34.83 mls/hr Insulin Human Regular (Novolin R) 0 unit SC Q6H TIM PRN Reason: Protocol Last Admin: 10/17/17 17:49 Dose: Not Given Levothyroxine Sodium (Synthroid) 50 mcg PO DAILY@0630 [facility] Last Admin: 10/17/17 06:06 Dose: 50 mcg Lorazepam (Ativan) 2 mg IVP Q6H PRN PRN Reason: Anxiety Losartan Potassium (Cozaar) 100 mg PO DAILY [facility] Last Admin: 10/17/17 10:04 Dose: Not Given Mupirocin (Bactroban Ointment) 0 gm TOP BID [facility] Last Admin: 10/17/17 17:54 Dose: 1 gm Ondansetron HCl (Zofran Inj) 4 mg IVP Q6H PRN PRN Reason: Nausea/Vomiting Last Admin: 10/10/17 21:10 Dose: 4 mg Pantoprazole Sodium (Protonix Inj) 40 mg IVP BID [facility] Last Admin: 10/17/17 17:51 Dose: Not Given Polyethylene Glycol (Miralax) 17 gm PO BID PRN PRN Reason: Constipation Last Admin: 10/07/17 10:14 Dose: 17 gm Rosuvastatin Calcium (Crestor) 5 mg NG HS [facility] Last Admin: 10/16/17 21:45 Dose: 5 mg Saccharomyces Boulardii (Florastor) 250 mg NG BID [facility] Last Admin: 10/17/17 17:55 Dose: Not Given Vitamin A (Vitamin A & D Oint Ud Foilpak) 0.5 ea TOP Q4 [facility] Last Admin: 10/17/17 20:32 Dose: 0.5 ea - Labs Labs: 10/17/17 16:51 10/17/17 21:47 PT 14.7 SECONDS (9.7-12.2) H 10/17/17 16:51 INR 1.3 10/17/17 16:51 APTT 26 SECONDS (21-34) 10/17/17 16:51 - Constitutional Appears: No Acute Distress, Agitated, Chronically Ill - Head Exam Head Exam: NORMAL INSPECTION Additional comments: intubated on vent - Eye Exam Eye Exam: EOMI - Respiratory Exam Respiratory Exam: Decreased Breath Sounds, Rales Additional comments: intubated - Cardiovascular Exam Cardiovascular Exam: Tachycardia, Irregular Rhythm, +S1, +S2 - GI/Abdominal Exam GI & Abdominal Exam: Soft Additional comments: BSx4 , Soft, Central Obesity, Ventral Vertical Surgical Site with intact alirio and NO dehiscence and NO surrounding signs of cellulitis, some tenderness to palpation around the surgical site, however NO guarding/rebound tenderness - Neurological Exam Neurological Exam: Awake - Skin Skin Exam: Dry, Normal Color, Warm Assessment and Plan - Assessment and Plan (Free Text) Assessment: 1.Bowel Ischemia Abdominal Pain Abdominal Aorta Aneurysm * General surgery: Dr. Hinton on consult-->given LLQ abdominal pain * 10/08/17: Exploratory laparotomy, small bowel resection and primary anastomosis. EBL: 100; No Drains * Vascular surgery consult: Dr. Inman to follow for evaluation--> given aborminal aorta focal contained dissection * GI, Dr. Boland group reconsulted given rectal bleeding * CT Dissection protocol (10/04/17): No evidence of thoracic aortic aneurysm, dissection, or rupture. No acute pulmonary embolism, Hepatic cysts, further findings available in the report including. Focal aneurysmal dilatation of infrarenal abdominal aorta measuring 2.6cm * Meropenem 1gram IVPB Q 8H (10/07/17) * Flagyl 500mg IVPB Q8H (active since 10/07/17) * CT abdomen/pelvis PO (10/07/17); Small bowel pneumatosis and portal venous gas concerning for bowel ischemia and necrosis. Multiple liver cysts. Nonobstructing calcifications in the left kidney. 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 In addition to the possible partial obstruction, there is prominent wall and fold enhancement of multiple small bowel loops suggesting enteritis. * 10/17: Hemoglobin did drop today; require 2 units of PRBC and black tarry stool observed both in NGT as well as naturally. 2. Chest Pain New LBBB History of Coronary Artery Disease History of CABG History of Diabetes Lipid Disorder History of Hypertension History of Severe Aortic Stenosis History of Pacemaker; prior Sick Sinus syndrome New Onset Atrial Fibrillation * Cardiology (Dr. Childs) on board-->help appreciated * Cardiac cath (10/06/17) completed; discussed with Dr. Childs including RCA occlusion about 50%-->will need intervention in future * Echocardiogram (10/06/17): left ventricular function is normal, left ventricular ejection fraction is within the normal range. No regional wall motion abnormalities noted. Left atrium is mildly dilated. Mild to Moderate valvular aortic stenosis. Calculated aortic valve area is 1.1cm squared. Donna regurgitation is mild to moderate. * Prior cardiac workup: * Holter in 2017 showed NSR with max HR 121, SVT at HR of 146 and rare VPC, isolated APC. * Cardiac Cath in 2014 showed distal main coronary artery 70-80% concentric stenosis mid LAD 70-80% stenosis, RCA 20-30% non-obstructing stenosis, and large diagonal branch 85% proximal stenosis. with LVEF of 60%. Basal inferior wall akinetic. * revious ECHO showed borderline concentric LVH with grade I abnormal relaxation pattern, severe aortic stenosis, mild mitral regurg, and mild to moderate pulmonic regurg. LVEF was 60-65%. History of pacemaker placement per chart review. * CT Dissection protocol (10/04/17): No evidence of thoracic aortic aneurysm, dissection, or rupture. No acute pulmonary embolism, Hepatic cysts, further findings available in the report inclduing Focal aneurysmal dilatation of infrarenal abdominal aorta measuring 2.6cm * Elevated probnp: 1580 * CARLYN: 7 * T, cholestrol: 159, LDL: 91, HDL: 41 * [id number]: 7.1 * PaceMaker was interrogated by Rayneer and it was deemed to be working properly * Patient had episodes of tachycardia 10/10/17 and 10/11/17 and was placed on Cardizem Drip 10 mg/hour and Lopressor 5 mg IV Q6H which were discontinued on . * Code blue 10/17/17; intubated and ROSC achieved, on IV fluid, Levofed, off PO cardiazem-->resident on cardiology and surgery are aware--> cardiology to follow with EP-Cardiology in regards to pacemaker Current Cardiac Meds: * Eliquis 5 mg PO 2x/day started 10/13/17 and was PUT ON HOLD due to Bright Red Blood Per Rectum on 10/15/17 * Aspirin 81 mg NG 1x/day PUT ON HOLD due to Bright Red Blood Per Rectum on 10/15 * Black tarry stool observed today 10/17/17 with drop in hemoglobin * Amiodarone 400 mg started PO 2x/day off 10/17/17 * Diltiazem 90 mg PO Q6H on hold 10/17/17 * Crestor 5mg NG QHS * Cozaar 100 mg NG 1x/day on hold 3. Sepsis Urinary Tract Infection Bandemia * Infectious Disease (Dr. Lawson) on the case-->help appreciated * Code sepsis 10/07/17 * Blood cultures (10/06/17): Negative at 5 days * Blood cultures (10/07/17): Negative at 5 days * F/U Repeat Blood Culture 10/15/17 ordered for elevated WBC of 25 * : no growth after 24hours * White count has lowered * Procalcitonin has improved * Urine culture (10/07/17): Klebsiella Pneumoanie-->sensitive to Meropenem * Repeat Urine Culture (10/11/17): NO GROWTH * Stool Culture (10/07/17): Negative * Ova and Parasite (10/07/17): No ova and parasite * F/U repeat Stool Studies 10/12/17 that were ordered secondary to abundant diarrhea * Meropenem 1gram IVPB Q 8H (10/07/17- active) * Flagyl 500mg IVPB Q8H (10/07/17- active) * Lactic acid: 2.4 (10/05/17)-->1.8 (10/06/17)-->4.1 (10/07/17)-->2.6 (10/08/17)--> 2.2 (10/08/17) * Has Renee in place * Ordered for C. dif. 4. Melena Bright Red Blood Per Rectum * 2 episodes of bright red blood per rectum on 10/15/17. * Black tarry stool observed 10/17/17 both fecal matter as well as NGT tube * See findings of CT Angiogram Abdomen/Pelvis in Assessment and Plan #1 above * She received 1 unit PRBC 10/15/17 night and 2 more units of PRBC 10/17/17 * HgB/Hct has dropped 7.4 latest requiring blood transfusion * GI Dr. Boland was reconsulted 10/15/17 and no plans for procedure at this time. Hold anticoagulation. 5. History of Chronic Constipation History of Liver cysts * GI (Dr. Boland) on case-->had signed off previously; reconsulted given rectal bleeding * Given patient is asymptomatic and appearance of lesions on imaging consistent with cystic disease, no further workup is indicated at this time. If patient becomes symptomatic, there is consideration for surgical intervention. * Maintain bowel regimen to prevent constipation * Suggest additional outpatient follow up and age appropriate screening colonoscopy if patient willing to undergo procedure. No further planned GI intervention * Hepatitis panel: negative * Please see #1 for further details. * Liver functions tests elevated in light of code blue 10/17/17 6. History of Hypothyroidism * TSH: 2.92; Free T4: 1.49 * Thyroid studies elevated * Off amiodarone 10/17/17 * Synthroid 50mcg PO daily 7. History of Breast Cancer * Patient history of lumpectomy * She is being following serially * Patient is not on any chemotherapeutic agent 8. History of HTN * Losartan and Diltiazem as above 9. History of HLD * Restarted Crestor 10/12/17 10. History of DM * Novolin R SC Q6H Sliding Scale 11. Episode of Confusion * This apparently occurred on night of 10/15/17: secondary to sundowning? * Patient is AAOx3 at the time of my exam * CT Head did not show any bleed or evidence of CVA 12. Prophylactic care * Anticoagulation was held given melena 10/07/17 but she was started on Heparin Drip 10/09/17 secondary to fear of showering emboli: monitor HgB/Hct which has been stable since the start of the Heparin Drip. The Heparin Drip was discontinued and Eliquis 5 mg PO Q12H was started 10/13/17 and then discontinued on 10/15/17 secondary to bright red blood per rectum on 10/15/17 * Palliative Care consult given patient wanted to discuss code status initially during hospitalization * Florastor 250 mg NG 2x/day * Zofran 4 mg IV Q6H PRN N/V * Protonix 40 mg IV BID * On pressor 10/17 * Reintubated 10/17 Son Theodore updated at bedside. Code blue this afternoon, reintubated, epi, bicarbonate, and CPR, ROSC achieved. Following ROSC, patient able to follow directions Responds to name and able to move arms when directed. 2 units of PRBC ordered. On pressor. Off amiodarone.
[2017-10-17 22:31] LABS: BASO # 0.1 K/uL (0.0-0.2); BASO % 0.4 % (0.0-2.0); EOS % 0.2 % (0.0-4.0); LYMPH # 1.5 K/uL (1.0-4.3); LYMPH % 6.6 % (20.0-40.0); MEAN CORPUSCULAR HEMOGLOBIN 29.9 pg (27.0-31.0); MEAN CORPUSCULAR HGB CONC 33.7 g/dL (33.0-37.0); MEAN PLATELET VOLUME 9.5 fL (7.2-11.7); MONO # 1.2 K/uL (0.0-0.8); MONO % 5.2 % (0.0-10.0); NEUT # 19.4 K/uL (1.8-7.0); NEUT % 87.6 % (50.0-75.0); PLATELET COUNT 330 K/uL (130-400); RBC 3.79 Mil/uL (3.80-5.20); RED CELL DISTRIBUTION WIDTH 15.2 % (11.5-14.5)
[2017-10-17 22:32] LABS: HEMOGLOBIN 11.3 g/dL (11.0-16.0); MEAN CELL VOLUME 88.8 fL (81.0-99.0); WHITE BLOOD COUNT 22.2 K/uL (4.8-10.8)
[2017-10-17 22:38] LABS: INR 1.2; PROTHROMBIN TIME 14.3 SECONDS (9.7-12.2)
[2017-10-17 22:57] LABS: ANISOCYTOSIS SLIGHT; BANDS 1 % (0-2); LYMPHOCYTE 8 % (20-40); MONOCYTE 2 % (0-10); NEUTROPHIL 89 % (50-75); PLATELET ESTIMATE NORMAL (NORMAL); TOTAL CELLS COUNTED 100
[2017-10-17 22:58] LABS: HYPOCHROMIC SLIGHT; POLYCHROMIC SLIGHT
[2017-10-18] MEDS: Albuterol-Ipratrop 3 mg / 0.5 (3 ml) UD INH SCH ×4 (02:40→19:48)
[2017-10-18] MEDS: Vitamins A & D Oint UD Foilpak TOP SCH ×6 (04:00→20:50)
[2017-10-18 05:45] LABS: ARTERIAL BLOOD GAS HCO3 28.2 mmol/L (21-28); ARTERIAL BLOOD GAS O2 SAT 98.3 % (95-98); ARTERIAL BLOOD GAS PCO2 31 mm/Hg (35-45); ARTERIAL BLOOD GAS PH 7.54 (7.35-7.45); ARTERIAL BLOOD GAS PO2 157 mm/Hg (80-100); ARTERIAL BLOOD GAS TCO2 27.5 mmol/L (22-28)
[2017-10-18] MEDS: (Novolin R) Insulin Human Regular 100 units/ml vial SC SCH ×4 (06:00→18:52)
[2017-10-18] MEDS: metroNIDAZOLE IV 500 mg/100 ml 500 MG/100 ML BAG IVPB SCH ×3 (06:00→22:00)
[2017-10-18] MEDS: Meropenem 1 GM in Sodium Chloride 0.9% 100 ML IVPB SCH ×3 (06:30→23:00)
[2017-10-18 06:35] LABS: HEMOGLOBIN 10.7 g/dL (11.0-16.0); MEAN CELL VOLUME 89.2 fL (81.0-99.0); MEAN CORPUSCULAR HEMOGLOBIN 29.9 pg (27.0-31.0); MEAN CORPUSCULAR HGB CONC 33.6 g/dL (33.0-37.0); MEAN PLATELET VOLUME 9.4 fL (7.2-11.7); RBC 3.59 Mil/uL (3.80-5.20); RED CELL DISTRIBUTION WIDTH 15.3 % (11.5-14.5); WHITE BLOOD COUNT 16.2 K/uL (4.8-10.8)
[2017-10-18] MEDS: Levothyroxine 50 MCG TAB PO SCH (06:44)
[2017-10-18 06:46] LABS: ALB/GLOB RATIO 0.8 (1.0-2.1); ALBUMIN 2.1 g/dL (3.5-5.0); CALCIUM 7.7 mg/dl (8.6-10.4)
[2017-10-18] MEDS ORDERED: Potassium Phosphate 15 MMOLE in Sodium Chloride 0.9% 100 ML IV ONE (08:00)
--- NOTE | 2017-10-18 08:01 | CP.PCM.PN ---
<Jane Faria - Last Filed: 10/18/17 10:18> Subjective - Date & Time of Evaluation Date of Evaluation: 10/18/17 Time of Evaluation: 07:15 - Subjective Subjective: GI Fellow PGY4 Progress Note Pt seen and evaluated at bedside, on review of EMR and discussion with nursing pt had acutely decompensated yesterday with a Code Blue called and ROSC, intubated and currently on pressor support with IV Levophed. Per nursing and documentation of tarry black stool and coffee ground emesis. GI team was not notified of acute change and concern for acute GI bleed with melena yesterday. Pt is s/p 2U PRBCs. ROS: A 12pt ROS was unable to be obtained as pt is intubated. Objective - Vital Signs/Intake and Output Vital Signs (last 24 hours): Temp Pulse Resp BP Pulse Ox 98.7 F 85 22 109/40 L 100 10/18/17 00:00 10/18/17 02:24 10/18/17 00:30 10/18/17 02:24 10/18/17 02:24 Intake and Output: 10/18/17 10/18/17 06:59 18:59 Intake Total 1642.8 48.8 Output Total 665 40 Balance 977.8 8.8 - Medications Medications: Current Medications Acetaminophen (Tylenol 325mg Tab) 650 mg PO Q6 PRN PRN Reason: Fever >100.4 F Albuterol/Ipratropium (Duoneb 3 Mg/0.5 Mg (3 Ml) Ud) 3 ml INH RQ6 [facility] Last Admin: 10/18/17 07:16 Dose: 3 ml Diltiazem HCl (Cardizem) 90 mg PO Q6 [facility] Last Admin: 10/18/17 06:32 Dose: Not Given Hydromorphone HCl (Dilaudid) 1 mg IVP Q4H PRN PRN Reason: Anxiety Metronidazole (Flagyl) 500 mg in 100 mls @ 100 mls/hr IVPB Q8 [facility] Last Admin: 10/18/17 06:00 Dose: 100 mls/hr Meropenem 1 gm/ Sodium (Chloride) 100 mls @ 100 mls/hr IVPB Q8H [facility] Last Admin: 10/18/17 06:30 Dose: 100 mls/hr Dextrose/Sodium Chloride (Dextrose 5%/0.9% Ns 1000 Ml) 1,000 mls @ 30 mls/hr IV .Q24H [facility] Last Admin: 10/17/17 11:10 Dose: 30 mls/hr Norepinephrine Bitartrate 8 mg (/ Sodium Chloride) 258 mls @ 7.74 mls/hr IV .Q24H PRN; Protocol; 4 MCG/MIN PRN Reason: TITRATE PER MD ORDER Last Admin: 10/18/17 00:30 Dose: 10 mcg/min, 19.35 mls/hr Potassium Phosphate 15 mmole/ (Sodium Chloride) 105 mls @ 52.5 mls/hr IV ONCE ONE Stop: 10/18/17 09:59 Pantoprazole Sodium 80 mg/ (Sodium Chloride) 100 mls @ 1,200 mls/hr IVP ONCE TIM Pantoprazole Sodium 80 mg/ (Sodium Chloride) 100 mls @ 10 mls/hr IVP .Q10H [facility] PRN Reason: 8 MG/HR Insulin Human Regular (Novolin R) 0 unit SC Q6H [facility] PRN Reason: Protocol Last Admin: 10/18/17 06:00 Dose: Not Given Levothyroxine Sodium (Synthroid) 50 mcg PO DAILY@0630 [facility] Last Admin: 10/18/17 06:44 Dose: Not Given Lorazepam (Ativan) 2 mg IVP Q6H PRN PRN Reason: Anxiety Losartan Potassium (Cozaar) 100 mg PO DAILY [facility] Last Admin: 10/17/17 10:04 Dose: Not Given Mupirocin (Bactroban Ointment) 0 gm TOP BID [facility] Last Admin: 10/17/17 17:54 Dose: 1 gm Ondansetron HCl (Zofran Inj) 4 mg IVP Q6H PRN PRN Reason: Nausea/Vomiting Last Admin: 10/10/17 21:10 Dose: 4 mg Polyethylene Glycol (Miralax) 17 gm PO BID PRN PRN Reason: Constipation Last Admin: 10/07/17 10:14 Dose: 17 gm Rosuvastatin Calcium (Crestor) 5 mg NG HS [facility] Last Admin: 10/17/17 22:00 Dose: Not Given Saccharomyces Boulardii (Florastor) 250 mg NG BID [facility] Last Admin: 10/17/17 17:55 Dose: Not Given Vitamin A (Vitamin A & D Oint Ud Foilpak) 0.5 ea TOP Q4 [facility] Last Admin: 10/18/17 04:00 Dose: 0.5 ea - Labs Labs: 10/18/17 06:25 10/18/17 06:23 PT 14.3 SECONDS (9.7-12.2) H 10/17/17 22:24 INR 1.2 10/17/17 22:24 APTT 27 SECONDS (21-34) 10/17/17 22:24 - Constitutional Appears: Non-toxic, In Acute Distress, Chronically Ill - Head Exam Head Exam: ATRAUMATIC, NORMAL INSPECTION - Eye Exam Eye Exam: EOMI, Normal appearance - ENT Exam ENT Exam: Mucous Membranes Moist Additional comments: ETT - Neck Exam Neck Exam: Full ROM - Respiratory Exam Respiratory Exam: Rhonchi, Respiratory Distress - Cardiovascular Exam Cardiovascular Exam: Irregular Rhythm - GI/Abdominal Exam GI & Abdominal Exam: Soft, Normal Bowel Sounds Additional comments: surgical scar - Rectal Exam Rectal Exam: Black Stool Additional comments: melena - Extremities Exam Extremities Exam: Full ROM, Pedal Edema - Neurological Exam Neurological Exam: Alert, Awake - Psychiatric Exam Psychiatric exam: Normal Affect, Normal Mood - Skin Skin Exam: Dry, Intact, Normal Color, Warm Assessment and Plan - Assessment and Plan (Free Text) Assessment: This is a 77 year old female with history of HTN, DM, CAD/CABG, breast cancer, hypothyroidism, aortic stenosis, bradycardia/SSS s/p PPM who was admitted to hospital for evaluation of chest pain and vomiting. 1. Upper GI Bleeding-Melena 2. Cardiac Arrest 2. NSTEMI s/p cardiac cath RCA 50% stenosis 3. Small bowel ischmeic, necrosis s/p small bowel resection and primary anastamosis POD#8 4. Hepatic cysts 5. VDRF 6. UTI Plan: -Continue supportive care with respiratory status -Acute active GI bleeding at this time, rectal exam with melena -Hgb stable at this time at 10.7 s/p 2 U PRBCs, hemodynamically unstable on Levophed recommend titrating off -Continue IV PPI drip needed -Continue to hold OAC and antiplatelet therapy -NPO -Continue IV abx for UTI, ID following -Small bowel ischemia s/p resection POD#8, surgery following -CAD with cardiology following, will need to discuss restarting OAC and anti- platelet therapy -Hepatic cysts are benign, no hemangioma on imaging with no concern for bleeding -Plan for urgent endoscopic evaluation at this time, called cardiology attending Dr. Childs to discuss cardiac clearance prior to procedure given code blue on pt yesterday and he will revaluate pt prior to EGD today. <Andrew Boland Y - Last Filed: 10/18/17 10:28> Objective - Vital Signs/Intake and Output Vital Signs (last 24 hours): Temp Pulse Resp BP Pulse Ox 98.6 F 89 14 137/58 L 100 10/18/17 08:00 10/18/17 08:24 10/18/17 08:24 10/18/17 08:24 10/18/17 08:24 Intake and Output: 10/18/17 10/18/17 06:59 18:59 Intake Total 1642.8 156.8 Output Total 665 40 Balance 977.8 116.8 - Medications Medications: Current Medications Acetaminophen (Tylenol 325mg Tab) 650 mg PO Q6 PRN PRN Reason: Fever >100.4 F Albuterol/Ipratropium (Duoneb 3 Mg/0.5 Mg (3 Ml) Ud) 3 ml INH RQ6 [facility] Last Admin: 10/18/17 07:16 Dose: 3 ml Diltiazem HCl (Cardizem) 90 mg PO Q6 [facility] Last Admin: 10/18/17 06:32 Dose: Not Given Hydromorphone HCl (Dilaudid) 1 mg IVP Q4H PRN PRN Reason: Anxiety Metronidazole (Flagyl) 500 mg in 100 mls @ 100 mls/hr IVPB Q8 [facility] Last Admin: 10/18/17 06:00 Dose: 100 mls/hr Meropenem 1 gm/ Sodium (Chloride) 100 mls @ 100 mls/hr IVPB Q8H [facility] Last Admin: 10/18/17 06:30 Dose: 100 mls/hr Dextrose/Sodium Chloride (Dextrose 5%/0.9% Ns 1000 Ml) 1,000 mls @ 30 mls/hr IV .Q24H [facility] Last Admin: 10/17/17 11:10 Dose: 30 mls/hr Norepinephrine Bitartrate 8 mg (/ Sodium Chloride) 258 mls @ 7.74 mls/hr IV .Q24H PRN; Protocol; 4 MCG/MIN PRN Reason: TITRATE PER MD ORDER Last Titration: 10/18/17 09:26 Dose: 8 mcg/min, 15.48 mls/hr Pantoprazole Sodium 80 mg/ (Sodium Chloride) 100 mls @ 10 mls/hr IV .Q10H [facility] PRN Reason: 8 MG/HR Last Admin: 10/18/17 09:46 Dose: 10 mls/hr Insulin Human Regular (Novolin R) 0 unit SC Q6H [facility] PRN Reason: Protocol Last Admin: 10/18/17 06:00 Dose: Not Given Levothyroxine Sodium (Synthroid) 50 mcg PO DAILY@0630 [facility] Last Admin: 10/18/17 06:44 Dose: Not Given Lorazepam (Ativan) 2 mg IVP Q6H PRN PRN Reason: Anxiety Losartan Potassium (Cozaar) 100 mg PO DAILY [facility] Last Admin: 10/18/17 09:51 Dose: 100 mg Mupirocin (Bactroban Ointment) 0 gm TOP BID [facility] Last Admin: 10/18/17 09:47 Dose: 1 gm Ondansetron HCl (Zofran Inj) 4 mg IVP Q6H PRN PRN Reason: Nausea/Vomiting Last Admin: 10/10/17 21:10 Dose: 4 mg Polyethylene Glycol (Miralax) 17 gm PO BID PRN PRN Reason: Constipation Last Admin: 10/07/17 10:14 Dose: 17 gm Rosuvastatin Calcium (Crestor) 5 mg NG HS [facility] Last Admin: 10/17/17 22:00 Dose: Not Given Saccharomyces Boulardii (Florastor) 250 mg NG BID [facility] Last Admin: 10/18/17 09:51 Dose: 250 mg Vitamin A (Vitamin A & D Oint Ud Foilpak) 0.5 ea TOP Q4 [facility] Last Admin: 10/18/17 08:26 Dose: 0.5 ea - Labs Labs: 10/18/17 06:25 10/18/17 06:23 PT 14.3 SECONDS (9.7-12.2) H 10/17/17 22:24 INR 1.2 10/17/17 22:24 APTT 27 SECONDS (21-34) 10/17/17 22:24 Attending/Attestation - Attestation I have personally seen and examined this patient.: Yes I have fully participated in the care of the patient.: Yes I have reviewed all pertinent clinical information, including history, physical exam and plan: Yes Notes (Text): 10/18/17 10:21 I have seen and examined patient with GI fellow. Events from yesterday noted, she is seen currently in critical care unit, intubated on vasopressor support. Patient with ongoing multiple episodes of melena overnight, s/p 2 units PRBC transfusion. There is also nearly 200 cc of coffee ground output reported via NGT. No reported abdominal pain, fever/chills. DM / HTN CAD / CABG Hypothyroidism History of breast cancer SSS s/p PPM Respiratory failure, cardiac arrest s/p intubation Small bowel ischemia s/p partial resection Melena UTI - NPO - Continue with IV PPI infusion - H/H stable, continue to monitor s/p blood transfusion - Vasopressor and ventilator management as per ICU team - Continue with antibiotic therapy - Patient would benefit from urgent upper endoscopic examination given ongoing melena with evidence of hemodynamic compromise. Will need to carefully discuss case with cardiology given high risk of procedure prior to proceeding. - In the event that EGD is unremarkable, patient requires surgical follow up given recent operative intervention of small bowel ischemia
--- NOTE | 2017-10-18 08:07 | CP.CCUPN ---
<Tommy Chang - Last Filed: 10/18/17 11:19> CCU Subjective - Physician Review Subjective (Free Text): 10/18/17 08:01 Patient seen and examined at bedside tarry stools while at bedside patient awake and agitated, wants tube out GI will reevaluate CCU Objective - Vital Signs / Intake & Output Intake and Output (Last 8hrs): Intake & Output 10/17/17 10/18/17 10/18/17 22:59 06:59 14:59 Intake Total 2380.2 624.8 48.8 Output Total 485 440 40 Balance 1895.2 184.8 8.8 Weight 189 lb Intake: IV 108 18.8 Intake, IV Amount 1797.2 606.0 48.8 Left Distal Port Internal 383.3 Jugular Left Medial Port Internal 133.9 156.0 18.8 Jugular Left Proximal Port 1280 450 30 Internal Jugular Oral 0 Blood Product 325 Red Blood Cells Cpd As1 325 Lr Unit [id number] Other 150 Red Blood Cells Cpd As1 150 Lr Unit [id number] Output: Urine 485 440 40 Urethral (Renee) 485 440 40 Other: # Bowel Movements 0 - Physical Exam Head: Positive for: Atraumatic, Normocephalic Pupils: Positive for: PERRL Extroacular Muscles: Positive for: EOMI Conjunctiva: Positive for: Normal Mouth: Positive for: Moist Mucous Membranes Respiratory/Chest: Positive for: Clear to Auscultation, Good Air Exchange Cardiovascular: Positive for: Regular Rate and Rhythm, Murmurs, Normal S1, S2 Abdomen: Positive for: Normal Bowel Sounds. Negative for: Tenderness, Distention, Peritoneal Signs Skin: Positive for: Warm Psychiatric: Positive for: Alert - Medications Active Medications: Active Medications Generic Name Dose Route Start Last Admin Trade Name Freq PRN Reason Stop Dose Admin Acetaminophen 650 mg 10/11/17 10:17 Tylenol 325mg Tab PO Q6 PRN Fever >100.4 F Albuterol/Ipratropium 3 ml 10/17/17 14:00 10/18/17 07:16 Duoneb 3 Mg/0.5 Mg (3 Ml) Ud INH 3 ml RQ6 TIM Administration Diltiazem HCl 90 mg 10/15/17 12:00 10/18/17 06:32 Cardizem PO Not Given Q6 TIM Hydromorphone HCl 1 mg 10/17/17 19:00 Dilaudid IVP Q4H PRN Anxiety Metronidazole 500 mg in 100 mls @ 100 mls/hr 10/07/17 22:00 10/18/17 06:00 Flagyl IVPB 100 mls/hr Q8 TIM Administration Meropenem 1 gm/ Sodium 100 mls @ 100 mls/hr 10/10/17 14:00 10/18/17 06:30 Chloride IVPB 100 mls/hr Q8H TIM Administration Dextrose/Sodium Chloride 1,000 mls @ 30 mls/hr 10/17/17 11:00 10/17/17 11:10 Dextrose 5%/0.9% Ns 1000 Ml IV 30 mls/hr .Q24H TIM Administration Norepinephrine Bitartrate 8 mg 258 mls @ 7.74 mls/hr 10/17/17 16:03 10/18/17 00:30 / Sodium Chloride IV 10 mcg/min .Q24H PRN 19.35 mls/hr TITRATE PER MD ORDER Administration Protocol 4 MCG/MIN Potassium Phosphate 15 mmole/ 105 mls @ 52.5 mls/hr 10/18/17 08:00 Sodium Chloride IV 10/18/17 09:59 ONCE ONE Pantoprazole Sodium 80 mg/ 100 mls @ 1,200 mls/hr 10/18/17 08:00 Sodium Chloride IVP ONCE TIM Pantoprazole Sodium 80 mg/ 100 mls @ 10 mls/hr 10/18/17 08:00 Sodium Chloride IVP .Q10H TIM 8 MG/HR Insulin Human Regular 0 unit 10/17/17 18:00 10/18/17 06:00 Novolin R SC Not Given Q6H [facility] Protocol Levothyroxine Sodium 50 mcg 10/12/17 06:30 10/18/17 06:44 Synthroid PO Not Given DAILY@0630 TIM Lorazepam 2 mg 10/17/17 19:00 Ativan IVP Q6H PRN Anxiety Losartan Potassium 100 mg 10/12/17 10:00 10/17/17 10:04 Cozaar PO Not Given DAILY TIM Mupirocin 0 gm 10/16/17 18:45 10/17/17 17:54 Bactroban Ointment TOP 1 gm BID TIM Administration Ondansetron HCl 4 mg 10/07/17 19:28 10/10/17 21:10 Zofran Inj IVP 4 mg Q6H PRN Administration Nausea/Vomiting Polyethylene Glycol 17 gm 10/06/17 15:08 10/07/17 10:14 Miralax PO 17 gm BID PRN Administration Constipation Rosuvastatin Calcium 5 mg 10/11/17 22:00 10/17/17 22:00 Crestor NG Not Given HS TIM Saccharomyces Boulardii 250 mg 10/10/17 11:15 10/17/17 17:55 Florastor NG Not Given BID TIM Vitamin A 0.5 ea 10/11/17 20:00 10/18/17 04:00 Vitamin A & D Oint Ud Foilpak TOP 0.5 ea Q4 TIM Administration - Patient Studies Lab Studies: Microbiology Studies 10/16/17 18:15 Blood Culture - Preliminary Blood-Venous NO GROWTH AFTER 24 HOURS 10/16/17 18:25 Blood Culture - Preliminary Blood-Venous NO GROWTH AFTER 24 HOURS Lab Studies 10/18/17 10/18/17 10/18/17 Range/Units 06:25 06:23 05:48 WBC 16.2 H (4.8-10.8) K/uL RBC 3.59 L (3.80-5.20) Mil/uL Hgb 10.7 L (11.0-16.0) g/dL Hct 32.0 L (34.0-47.0) % MCV 89.2 (81.0-99.0) fL MCH 29.9 (27.0-31.0) pg MCHC 33.6 (33.0-37.0) g/dL RDW 15.3 H (11.5-14.5) % Plt Count 354 (130-400) K/uL MPV 9.4 (7.2-11.7) fL Neut % (Auto) (50.0-75.0) % Lymph % (Auto) (20.0-40.0) % Williamson % (Auto) (0.0-10.0) % Eos % (Auto) (0.0-4.0) % Baso % (Auto) (0.0-2.0) % Neut # (1.8-7.0) K/uL Lymph # (1.0-4.3) K/uL Williamson # (0.0-0.8) K/uL Eos # (0.0-0.7) K/uL Baso # (0.0-0.2) K/uL Neutrophils % (Manual) (50-75) % Band Neutrophils % (0-2) % Lymphocytes % (Manual) (20-40) % Monocytes % (Manual) (0-10) % Platelet Estimate (NORMAL) Large Platelets Polychromasia Hypochromasia (manual) Anisocytosis (manual) PT (9.7-12.2) SECONDS INR APTT (21-34) SECONDS Puncture Site pCO2 (35-45) mm/Hg pO2 (80-100) mm/Hg HCO3 (21-28) mmol/L ABG pH (7.35-7.45) ABG Total CO2 (22-28) mmol/L ABG O2 Saturation (95-98) % ABG Base Excess (-2.0-3.0) mmol/L ABG Hemoglobin (11.7-17.4) g/dL ABG Carboxyhemoglobin (0.5-1.5) % POC ABG HHb (Measured) (0.0-5.0) % ABG Methemoglobin (0.0-3.0) % Dayron Test ABG Potassium (3.6-5.2) mmol/L A-a O2 Difference mm/Hg Respiratory Index Hgb O2 Saturation (95.0-98.0) % Glucose (65-105) mg/dl Lactate (0.7-2.1) mmol/L Vent Mode Mechanical Rate FiO2 % Tidal Volume PEEP Inspiratory BiPAP Expiratory BiPAP Crit Value Called To Crit Value Called By Crit Value Read Back Blood Gas Notified Time Sodium 155 H (132-148) mmol/L Potassium 3.5 L (3.6-5.2) mmol/L Chloride 126 H (98-107) mmol/L Carbon Dioxide 24 (22-30) mmol/L Anion Gap 9 L (10-20) BUN 39 H (7-17) mg/dL Creatinine 1.1 (0.7-1.2) mg/dL Est GFR ( Amer) 58 Est GFR (Non-Af Amer) 48 POC Glucose (mg/dL) 127 H (65-110) mg/dL Random Glucose 125 H (65-105) mg/dL Calcium 7.7 L (8.6-10.4) mg/dl Ionized Calcium (4.80-5.60) mg/dL Phosphorus 1.9 L (2.5-4.5) mg/dL Magnesium 2.0 (1.6-2.3) mg/dL Total Bilirubin 0.5 (0.2-1.3) mg/dL AST 168 H D (14-36) U/L ALT 96 H D (9-52) U/L Alkaline Phosphatase 84 (38-126) U/L Total Creatine Kinase (30-135) U/L CK-MB (Mass) (0.0-3.38) ng/mL Troponin I (0.00-0.120) ng/mL NT-Pro-B Natriuret Pep (0-900) pg/mL Total Protein 4.7 L (6.3-8.3) g/dL Albumin 2.1 L (3.5-5.0) g/dL Globulin 2.5 (2.2-3.9) gm/dL Albumin/Globulin Ratio 0.8 L (1.0-2.1) Procalcitonin (0.19-0.49) NG/ML Free T3 pg/mL (2.77-5.27) pg/mL TSH 3rd Generation (0.46-4.68) mIU/L Arterial Blood Potassium (3.6-5.2) mmol/L Blood Type Antibody Screen 10/18/17 10/17/17 10/17/17 Range/Units 05:33 23:46 22:24 WBC (4.8-10.8) K/uL RBC (3.80-5.20) Mil/uL Hgb (11.0-16.0) g/dL Hct (34.0-47.0) % MCV (81.0-99.0) fL MCH (27.0-31.0) pg MCHC (33.0-37.0) g/dL RDW (11.5-14.5) % Plt Count (130-400) K/uL MPV (7.2-11.7) fL Neut % (Auto) (50.0-75.0) % Lymph % (Auto) (20.0-40.0) % Williamson % (Auto) (0.0-10.0) % Eos % (Auto) (0.0-4.0) % Baso % (Auto) (0.0-2.0) % Neut # (1.8-7.0) K/uL Lymph # (1.0-4.3) K/uL Williamson # (0.0-0.8) K/uL Eos # (0.0-0.7) K/uL Baso # (0.0-0.2) K/uL Neutrophils % (Manual) (50-75) % Band Neutrophils % (0-2) % Lymphocytes % (Manual) (20-40) % Monocytes % (Manual) (0-10) % Platelet Estimate (NORMAL) Large Platelets Polychromasia Hypochromasia (manual) Anisocytosis (manual) PT 14.3 H (9.7-12.2) SECONDS INR 1.2 APTT 27 (21-34) SECONDS Puncture Site Rb pCO2 31 L (35-45) mm/Hg pO2 157 H (80-100) mm/Hg HCO3 28.2 H (21-28) mmol/L ABG pH 7.54 H (7.35-7.45) ABG Total CO2 27.5 (22-28) mmol/L ABG O2 Saturation 98.3 H (95-98) % ABG Base Excess 4.2 H (-2.0-3.0) mmol/L ABG Hemoglobin 11.0 L (11.7-17.4) g/dL ABG Carboxyhemoglobin 0.8 (0.5-1.5) % POC ABG HHb (Measured) 1.7 (0.0-5.0) % ABG Methemoglobin 1.3 (0.0-3.0) % Dayron Test Na ABG Potassium (3.6-5.2) mmol/L A-a O2 Difference 375.0 mm/Hg Respiratory Index 2.4 Hgb O2 Saturation 96.2 (95.0-98.0) % Glucose (65-105) mg/dl Lactate (0.7-2.1) mmol/L Vent Mode Prvc Mechanical Rate 22 FiO2 80.0 % Tidal Volume 450 PEEP 5 Inspiratory BiPAP Expiratory BiPAP Crit Value Called To Crit Value Called By Crit Value Read Back Blood Gas Notified Time Sodium (132-148) mmol/L Potassium (3.6-5.2) mmol/L Chloride (98-107) mmol/L Carbon Dioxide (22-30) mmol/L Anion Gap (10-20) BUN (7-17) mg/dL Creatinine (0.7-1.2) mg/dL Est GFR ( Amer) Est GFR (Non-Af Amer) POC Glucose (mg/dL) 154 H (65-110) mg/dL Random Glucose (65-105) mg/dL Calcium (8.6-10.4) mg/dl Ionized Calcium (4.80-5.60) mg/dL Phosphorus (2.5-4.5) mg/dL Magnesium (1.6-2.3) mg/dL Total Bilirubin (0.2-1.3) mg/dL AST (14-36) U/L ALT (9-52) U/L Alkaline Phosphatase (38-126) U/L Total Creatine Kinase (30-135) U/L CK-MB (Mass) (0.0-3.38) ng/mL Troponin I (0.00-0.120) ng/mL NT-Pro-B Natriuret Pep (0-900) pg/mL Total Protein (6.3-8.3) g/dL Albumin (3.5-5.0) g/dL Globulin (2.2-3.9) gm/dL Albumin/Globulin Ratio (1.0-2.1) Procalcitonin (0.19-0.49) NG/ML Free T3 pg/mL (2.77-5.27) pg/mL TSH 3rd Generation (0.46-4.68) mIU/L Arterial Blood Potassium (3.6-5.2) mmol/L Blood Type Antibody Screen 10/17/17 10/17/17 10/17/17 Range/Units 22:24 21:47 17:47 WBC 22.2 H D (4.8-10.8) K/uL RBC 3.79 L (3.80-5.20) Mil/uL Hgb 11.3 D (11.0-16.0) g/dL Hct 33.7 L (34.0-47.0) % MCV 88.8 D (81.0-99.0) fL MCH 29.9 (27.0-31.0) pg MCHC 33.7 (33.0-37.0) g/dL RDW 15.2 H (11.5-14.5) % Plt Count 330 (130-400) K/uL MPV 9.5 (7.2-11.7) fL Neut % (Auto) 87.6 H (50.0-75.0) % Lymph % (Auto) 6.6 L (20.0-40.0) % Williamson % (Auto) 5.2 (0.0-10.0) % Eos % (Auto) 0.2 (0.0-4.0) % Baso % (Auto) 0.4 (0.0-2.0) % Neut # 19.4 H (1.8-7.0) K/uL Lymph # 1.5 (1.0-4.3) K/uL Williamson # 1.2 H (0.0-0.8) K/uL Eos # 0.0 (0.0-0.7) K/uL Baso # 0.1 (0.0-0.2) K/uL Neutrophils % (Manual) 89 H (50-75) % Band Neutrophils % 1 (0-2) % Lymphocytes % (Manual) 8 L (20-40) % Monocytes % (Manual) 2 (0-10) % Platelet Estimate Normal (NORMAL) Large Platelets Polychromasia Slight Hypochromasia (manual) Slight Anisocytosis (manual) Slight PT (9.7-12.2) SECONDS INR APTT (21-34) SECONDS Puncture Site pCO2 (35-45) mm/Hg pO2 (80-100) mm/Hg HCO3 (21-28) mmol/L ABG pH (7.35-7.45) ABG Total CO2 (22-28) mmol/L ABG O2 Saturation (95-98) % ABG Base Excess (-2.0-3.0) mmol/L ABG Hemoglobin (11.7-17.4) g/dL ABG Carboxyhemoglobin (0.5-1.5) % POC ABG HHb (Measured) (0.0-5.0) % ABG Methemoglobin (0.0-3.0) % Dayron Test ABG Potassium (3.6-5.2) mmol/L A-a O2 Difference mm/Hg Respiratory Index Hgb O2 Saturation (95.0-98.0) % Glucose (65-105) mg/dl Lactate (0.7-2.1) mmol/L Vent Mode Mechanical Rate FiO2 % Tidal Volume PEEP Inspiratory BiPAP Expiratory BiPAP Crit Value Called To Crit Value Called By Crit Value Read Back Blood Gas Notified Time Sodium 153 H (132-148) mmol/L Potassium 4.1 (3.6-5.2) mmol/L Chloride 119 H (98-107) mmol/L Carbon Dioxide 28 (22-30) mmol/L Anion Gap 10 (10-20) BUN 44 H (7-17) mg/dL Creatinine 1.3 H (0.7-1.2) mg/dL Est GFR ( Amer) 48 Est GFR (Non-Af Amer) 40 POC Glucose (mg/dL) 170 H (65-110) mg/dL Random Glucose 155 H (65-105) mg/dL Calcium 8.4 L (8.6-10.4) mg/dl Ionized Calcium (4.80-5.60) mg/dL Phosphorus 3.1 (2.5-4.5) mg/dL Magnesium 1.9 (1.6-2.3) mg/dL Total Bilirubin 0.6 (0.2-1.3) mg/dL AST 318 H (14-36) U/L ALT 145 H (9-52) U/L Alkaline Phosphatase 107 (38-126) U/L Total Creatine Kinase 47 (30-135) U/L CK-MB (Mass) 1.51 (0.0-3.38) ng/mL Troponin I 0.0800 (0.00-0.120) ng/mL NT-Pro-B Natriuret Pep (0-900) pg/mL Total Protein 5.4 L (6.3-8.3) g/dL Albumin 2.6 L D (3.5-5.0) g/dL Globulin 2.8 (2.2-3.9) gm/dL Albumin/Globulin Ratio 0.9 L (1.0-2.1) Procalcitonin (0.19-0.49) NG/ML Free T3 pg/mL (2.77-5.27) pg/mL TSH 3rd Generation (0.46-4.68) mIU/L Arterial Blood Potassium (3.6-5.2) mmol/L Blood Type Antibody Screen 10/17/17 10/17/17 10/17/17 Range/Units 17:40 16:51 16:51 WBC (4.8-10.8) K/uL RBC (3.80-5.20) Mil/uL Hgb (11.0-16.0) g/dL Hct (34.0-47.0) % MCV (81.0-99.0) fL MCH (27.0-31.0) pg MCHC (33.0-37.0) g/dL RDW (11.5-14.5) % Plt Count (130-400) K/uL MPV (7.2-11.7) fL Neut % (Auto) (50.0-75.0) % Lymph % (Auto) (20.0-40.0) % Williamson % (Auto) (0.0-10.0) % Eos % (Auto) (0.0-4.0) % Baso % (Auto) (0.0-2.0) % Neut # (1.8-7.0) K/uL Lymph # (1.0-4.3) K/uL Williamson # (0.0-0.8) K/uL Eos # (0.0-0.7) K/uL Baso # (0.0-0.2) K/uL Neutrophils % (Manual) (50-75) % Band Neutrophils % (0-2) % Lymphocytes % (Manual) (20-40) % Monocytes % (Manual) (0-10) % Platelet Estimate (NORMAL) Large Platelets Polychromasia Hypochromasia (manual) Anisocytosis (manual) PT 14.7 H (9.7-12.2) SECONDS INR 1.3 APTT 26 (21-34) SECONDS Puncture Site Rba pCO2 49 H (35-45) mm/Hg pO2 295 H (80-100) mm/Hg HCO3 24.5 (21-28) mmol/L ABG pH 7.33 L (7.35-7.45) ABG Total CO2 27.3 (22-28) mmol/L ABG O2 Saturation 99.1 H (95-98) % ABG Base Excess -0.7 (-2.0-3.0) mmol/L ABG Hemoglobin (11.7-17.4) g/dL ABG Carboxyhemoglobin (0.5-1.5) % POC ABG HHb (Measured) (0.0-5.0) % ABG Methemoglobin (0.0-3.0) % Dayron Test Na ABG Potassium 3.8 (3.6-5.2) mmol/L A-a O2 Difference 357.0 mm/Hg Respiratory Index 1.2 Hgb O2 Saturation (95.0-98.0) % Glucose 188 H (65-105) mg/dl Lactate 1.2 (0.7-2.1) mmol/L Vent Mode Prvc Mechanical Rate 22 FiO2 100.0 % Tidal Volume 440 PEEP 5 Inspiratory BiPAP Expiratory BiPAP Crit Value Called To Crit Value Called By Crit Value Read Back Blood Gas Notified Time Sodium 156.0 H 151 H (132-148) mmol/L Potassium 4.0 (3.6-5.2) mmol/L Chloride 127.0 H 120 H (98-107) mmol/L Carbon Dioxide 28 (22-30) mmol/L Anion Gap 6 L (10-20) BUN 44 H (7-17) mg/dL Creatinine 1.2 (0.7-1.2) mg/dL Est GFR ( Amer) 53 Est GFR (Non-Af Amer) 44 POC Glucose (mg/dL) (65-110) mg/dL Random Glucose 203 H (65-105) mg/dL Calcium 7.5 L (8.6-10.4) mg/dl Ionized Calcium (4.80-5.60) mg/dL Phosphorus 4.8 H (2.5-4.5) mg/dL Magnesium 1.8 (1.6-2.3) mg/dL Total Bilirubin 0.3 (0.2-1.3) mg/dL AST 308 H D (14-36) U/L ALT 135 H D (9-52) U/L Alkaline Phosphatase 62 (38-126) U/L Total Creatine Kinase 51 (30-135) U/L CK-MB (Mass) 1.48 (0.0-3.38) ng/mL Troponin I 0.0450 (0.00-0.120) ng/mL NT-Pro-B Natriuret Pep (0-900) pg/mL Total Protein 4.1 L (6.3-8.3) g/dL Albumin 1.9 L D (3.5-5.0) g/dL Globulin 2.2 (2.2-3.9) gm/dL Albumin/Globulin Ratio 0.9 L (1.0-2.1) Procalcitonin (0.19-0.49) NG/ML Free T3 pg/mL (2.77-5.27) pg/mL TSH 3rd Generation (0.46-4.68) mIU/L Arterial Blood Potassium 3.8 (3.6-5.2) mmol/L Blood Type Antibody Screen 10/17/17 10/17/17 10/17/17 Range/Units 16:51 16:22 15:56 WBC 14.3 H (4.8-10.8) K/uL RBC 2.53 L (3.80-5.20) Mil/uL Hgb 7.2 L D (11.0-16.0) g/dL Hct 23.1 L (34.0-47.0) % MCV 91.2 (81.0-99.0) fL MCH 28.6 (27.0-31.0) pg MCHC 31.4 L (33.0-37.0) g/dL RDW 15.5 H (11.5-14.5) % Plt Count 316 (130-400) K/uL MPV 9.4 (7.2-11.7) fL Neut % (Auto) 91.8 H (50.0-75.0) % Lymph % (Auto) 4.5 L (20.0-40.0) % Williamson % (Auto) 3.4 (0.0-10.0) % Eos % (Auto) 0.2 (0.0-4.0) % Baso % (Auto) 0.1 (0.0-2.0) % Neut # 13.1 H (1.8-7.0) K/uL Lymph # 0.6 L (1.0-4.3) K/uL Williamson # 0.5 (0.0-0.8) K/uL Eos # 0.0 (0.0-0.7) K/uL Baso # 0.0 (0.0-0.2) K/uL Neutrophils % (Manual) 91 H (50-75) % Band Neutrophils % 1 (0-2) % Lymphocytes % (Manual) 4 L (20-40) % Monocytes % (Manual) 4 (0-10) % Platelet Estimate Normal (NORMAL) Large Platelets Polychromasia Slight Hypochromasia (manual) Slight Anisocytosis (manual) Slight PT (9.7-12.2) SECONDS INR APTT (21-34) SECONDS Puncture Site Rba pCO2 71 H* (35-45) mm/Hg pO2 27 L* (80-100) mm/Hg HCO3 22.9 (21-28) mmol/L ABG pH 7.22 L (7.35-7.45) ABG Total CO2 31.3 H (22-28) mmol/L ABG O2 Saturation 46.9 L (95-98) % ABG Base Excess -0.5 (-2.0-3.0) mmol/L ABG Hemoglobin (11.7-17.4) g/dL ABG Carboxyhemoglobin (0.5-1.5) % POC ABG HHb (Measured) (0.0-5.0) % ABG Methemoglobin (0.0-3.0) % Dayron Test Na ABG Potassium 5.1 (3.6-5.2) mmol/L A-a O2 Difference 597.0 mm/Hg Respiratory Index 22.1 Hgb O2 Saturation (95.0-98.0) % Glucose 127 H (65-105) mg/dl Lactate 1.9 (0.7-2.1) mmol/L Vent Mode Prvc Mechanical Rate 20 FiO2 100.0 % Tidal Volume 500 PEEP 5 Inspiratory BiPAP Expiratory BiPAP Crit Value Called To Antionette espino Crit Value Called By Jason Crit Value Read Back Y Blood Gas Notified Time 1559 Sodium 154.0 H (132-148) mmol/L Potassium (3.6-5.2) mmol/L Chloride 126.0 H (98-107) mmol/L Carbon Dioxide (22-30) mmol/L Anion Gap (10-20) BUN (7-17) mg/dL Creatinine (0.7-1.2) mg/dL Est GFR ( Amer) Est GFR (Non-Af Amer) POC Glucose (mg/dL) (65-110) mg/dL Random Glucose (65-105) mg/dL Calcium (8.6-10.4) mg/dl Ionized Calcium (4.80-5.60) mg/dL Phosphorus (2.5-4.5) mg/dL Magnesium (1.6-2.3) mg/dL Total Bilirubin (0.2-1.3) mg/dL AST (14-36) U/L ALT (9-52) U/L Alkaline Phosphatase (38-126) U/L Total Creatine Kinase (30-135) U/L CK-MB (Mass) (0.0-3.38) ng/mL Troponin I (0.00-0.120) ng/mL NT-Pro-B Natriuret Pep (0-900) pg/mL Total Protein (6.3-8.3) g/dL Albumin (3.5-5.0) g/dL Globulin (2.2-3.9) gm/dL Albumin/Globulin Ratio (1.0-2.1) Procalcitonin 0.60 H (0.19-0.49) NG/ML Free T3 pg/mL (2.77-5.27) pg/mL TSH 3rd Generation (0.46-4.68) mIU/L Arterial Blood Potassium 5.1 (3.6-5.2) mmol/L Blood Type Antibody Screen 10/17/17 10/17/17 10/17/17 Range/Units 12:08 11:53 10:25 WBC (4.8-10.8) K/uL RBC (3.80-5.20) Mil/uL Hgb (11.0-16.0) g/dL Hct (34.0-47.0) % MCV (81.0-99.0) fL MCH (27.0-31.0) pg MCHC (33.0-37.0) g/dL RDW (11.5-14.5) % Plt Count (130-400) K/uL MPV (7.2-11.7) fL Neut % (Auto) (50.0-75.0) % Lymph % (Auto) (20.0-40.0) % Williamson % (Auto) (0.0-10.0) % Eos % (Auto) (0.0-4.0) % Baso % (Auto) (0.0-2.0) % Neut # (1.8-7.0) K/uL Lymph # (1.0-4.3) K/uL Williamson # (0.0-0.8) K/uL Eos # (0.0-0.7) K/uL Baso # (0.0-0.2) K/uL Neutrophils % (Manual) (50-75) % Band Neutrophils % (0-2) % Lymphocytes % (Manual) (20-40) % Monocytes % (Manual) (0-10) % Platelet Estimate (NORMAL) Large Platelets Polychromasia Hypochromasia (manual) Anisocytosis (manual) PT (9.7-12.2) SECONDS INR APTT (21-34) SECONDS Puncture Site Lb pCO2 46 H (35-45) mm/Hg pO2 87 (80-100) mm/Hg HCO3 24.4 (21-28) mmol/L ABG pH 7.35 (7.35-7.45) ABG Total CO2 26.8 (22-28) mmol/L ABG O2 Saturation 97.4 (95-98) % ABG Base Excess -0.6 (-2.0-3.0) mmol/L ABG Hemoglobin (11.7-17.4) g/dL ABG Carboxyhemoglobin (0.5-1.5) % POC ABG HHb (Measured) (0.0-5.0) % ABG Methemoglobin (0.0-3.0) % Dayron Test Na ABG Potassium 3.9 (3.6-5.2) mmol/L A-a O2 Difference 283.0 mm/Hg Respiratory Index 3.3 Hgb O2 Saturation (95.0-98.0) % Glucose 107 H (65-105) mg/dl Lactate 0.9 (0.7-2.1) mmol/L Vent Mode Mechanical Rate FiO2 60.0 % Tidal Volume PEEP Inspiratory BiPAP 12 Expiratory BiPAP 5 Crit Value Called To Dr cowan Crit Value Called By Devonte walters [facility] Crit Value Read Back Y Blood Gas Notified Time 1040 Sodium 154.0 H (132-148) mmol/L Potassium (3.6-5.2) mmol/L Chloride 124.0 H (98-107) mmol/L Carbon Dioxide (22-30) mmol/L Anion Gap (10-20) BUN (7-17) mg/dL Creatinine (0.7-1.2) mg/dL Est GFR ( Amer) Est GFR (Non-Af Amer) POC Glucose (mg/dL) 111 H (65-110) mg/dL Random Glucose (65-105) mg/dL Calcium (8.6-10.4) mg/dl Ionized Calcium (4.80-5.60) mg/dL Phosphorus (2.5-4.5) mg/dL Magnesium (1.6-2.3) mg/dL Total Bilirubin (0.2-1.3) mg/dL AST (14-36) U/L ALT (9-52) U/L Alkaline Phosphatase (38-126) U/L Total Creatine Kinase (30-135) U/L CK-MB (Mass) (0.0-3.38) ng/mL Troponin I (0.00-0.120) ng/mL NT-Pro-B Natriuret Pep (0-900) pg/mL Total Protein (6.3-8.3) g/dL Albumin (3.5-5.0) g/dL Globulin (2.2-3.9) gm/dL Albumin/Globulin Ratio (1.0-2.1) Procalcitonin (0.19-0.49) NG/ML Free T3 pg/mL 1.76 L (2.77-5.27) pg/mL TSH 3rd Generation 4.72 H (0.46-4.68) mIU/L Arterial Blood Potassium 3.9 (3.6-5.2) mmol/L Blood Type Antibody Screen 10/17/17 10/17/17 10/15/17 Range/Units 06:25 06:23 15:33 WBC (4.8-10.8) K/uL RBC (3.80-5.20) Mil/uL Hgb (11.0-16.0) g/dL Hct (34.0-47.0) % MCV (81.0-99.0) fL MCH (27.0-31.0) pg MCHC (33.0-37.0) g/dL RDW (11.5-14.5) % Plt Count (130-400) K/uL MPV (7.2-11.7) fL Neut % (Auto) (50.0-75.0) % Lymph % (Auto) (20.0-40.0) % Williamson % (Auto) (0.0-10.0) % Eos % (Auto) (0.0-4.0) % Baso % (Auto) (0.0-2.0) % Neut # (1.8-7.0) K/uL Lymph # (1.0-4.3) K/uL Williamson # (0.0-0.8) K/uL Eos # (0.0-0.7) K/uL Baso # (0.0-0.2) K/uL Neutrophils % (Manual) 89 H (50-75) % Band Neutrophils % (0-2) % Lymphocytes % (Manual) 7 L (20-40) % Monocytes % (Manual) 4 (0-10) % Platelet Estimate Normal (NORMAL) Large Platelets Present Polychromasia Hypochromasia (manual) Anisocytosis (manual) Slight PT (9.7-12.2) SECONDS INR APTT (21-34) SECONDS Puncture Site pCO2 (35-45) mm/Hg pO2 (80-100) mm/Hg HCO3 (21-28) mmol/L ABG pH (7.35-7.45) ABG Total CO2 (22-28) mmol/L ABG O2 Saturation (95-98) % ABG Base Excess (-2.0-3.0) mmol/L ABG Hemoglobin (11.7-17.4) g/dL ABG Carboxyhemoglobin (0.5-1.5) % POC ABG HHb (Measured) (0.0-5.0) % ABG Methemoglobin (0.0-3.0) % Dayron Test ABG Potassium (3.6-5.2) mmol/L A-a O2 Difference mm/Hg Respiratory Index Hgb O2 Saturation (95.0-98.0) % Glucose (65-105) mg/dl Lactate (0.7-2.1) mmol/L Vent Mode Mechanical Rate FiO2 % Tidal Volume PEEP Inspiratory BiPAP Expiratory BiPAP Crit Value Called To Crit Value Called By Crit Value Read Back Blood Gas Notified Time Sodium 152 H (132-148) mmol/L Potassium 4.1 (3.6-5.2) mmol/L Chloride 119 H (98-107) mmol/L Carbon Dioxide 25 (22-30) mmol/L Anion Gap 12 (10-20) BUN 38 H (7-17) mg/dL Creatinine 0.9 (0.7-1.2) mg/dL Est GFR ( Amer) > 60 Est GFR (Non-Af Amer) > 60 POC Glucose (mg/dL) (65-110) mg/dL Random Glucose 95 (65-105) mg/dL Calcium 8.3 L (8.6-10.4) mg/dl Ionized Calcium (4.80-5.60) mg/dL Phosphorus 3.6 (2.5-4.5) mg/dL Magnesium 1.9 (1.6-2.3) mg/dL Total Bilirubin 0.4 (0.2-1.3) mg/dL AST 27 (14-36) U/L ALT 26 (9-52) U/L Alkaline Phosphatase 87 (38-126) U/L Total Creatine Kinase (30-135) U/L CK-MB (Mass) (0.0-3.38) ng/mL Troponin I (0.00-0.120) ng/mL NT-Pro-B Natriuret Pep 2590 H (0-900) pg/mL Total Protein 5.2 L (6.3-8.3) g/dL Albumin 2.4 L (3.5-5.0) g/dL Globulin 2.8 (2.2-3.9) gm/dL Albumin/Globulin Ratio 0.9 L (1.0-2.1) Procalcitonin (0.19-0.49) NG/ML Free T3 pg/mL (2.77-5.27) pg/mL TSH 3rd Generation (0.46-4.68) mIU/L Arterial Blood Potassium (3.6-5.2) mmol/L Blood Type O POSITIVE Antibody Screen Negative 10/15/17 Range/Units 08:32 WBC (4.8-10.8) K/uL RBC (3.80-5.20) Mil/uL Hgb (11.0-16.0) g/dL Hct (34.0-47.0) % MCV (81.0-99.0) fL MCH (27.0-31.0) pg MCHC (33.0-37.0) g/dL RDW (11.5-14.5) % Plt Count (130-400) K/uL MPV (7.2-11.7) fL Neut % (Auto) (50.0-75.0) % Lymph % (Auto) (20.0-40.0) % Williamson % (Auto) (0.0-10.0) % Eos % (Auto) (0.0-4.0) % Baso % (Auto) (0.0-2.0) % Neut # (1.8-7.0) K/uL Lymph # (1.0-4.3) K/uL Williamson # (0.0-0.8) K/uL Eos # (0.0-0.7) K/uL Baso # (0.0-0.2) K/uL Neutrophils % (Manual) (50-75) % Band Neutrophils % (0-2) % Lymphocytes % (Manual) (20-40) % Monocytes % (Manual) (0-10) % Platelet Estimate (NORMAL) Large Platelets Polychromasia Hypochromasia (manual) Anisocytosis (manual) PT (9.7-12.2) SECONDS INR APTT (21-34) SECONDS Puncture Site pCO2 (35-45) mm/Hg pO2 (80-100) mm/Hg HCO3 (21-28) mmol/L ABG pH (7.35-7.45) ABG Total CO2 (22-28) mmol/L ABG O2 Saturation (95-98) % ABG Base Excess (-2.0-3.0) mmol/L ABG Hemoglobin (11.7-17.4) g/dL ABG Carboxyhemoglobin (0.5-1.5) % POC ABG HHb (Measured) (0.0-5.0) % ABG Methemoglobin (0.0-3.0) % Dayron Test ABG Potassium (3.6-5.2) mmol/L A-a O2 Difference mm/Hg Respiratory Index Hgb O2 Saturation (95.0-98.0) % Glucose (65-105) mg/dl Lactate (0.7-2.1) mmol/L Vent Mode Mechanical Rate FiO2 % Tidal Volume PEEP Inspiratory BiPAP Expiratory BiPAP Crit Value Called To Crit Value Called By Crit Value Read Back Blood Gas Notified Time Sodium (132-148) mmol/L Potassium (3.6-5.2) mmol/L Chloride (98-107) mmol/L Carbon Dioxide (22-30) mmol/L Anion Gap (10-20) BUN (7-17) mg/dL Creatinine (0.7-1.2) mg/dL Est GFR ( Amer) Est GFR (Non-Af Amer) POC Glucose (mg/dL) (65-110) mg/dL Random Glucose (65-105) mg/dL Calcium (8.6-10.4) mg/dl Ionized Calcium 5.6 (4.80-5.60) mg/dL Phosphorus (2.5-4.5) mg/dL Magnesium (1.6-2.3) mg/dL Total Bilirubin (0.2-1.3) mg/dL AST (14-36) U/L ALT (9-52) U/L Alkaline Phosphatase (38-126) U/L Total Creatine Kinase (30-135) U/L CK-MB (Mass) (0.0-3.38) ng/mL Troponin I (0.00-0.120) ng/mL NT-Pro-B Natriuret Pep (0-900) pg/mL Total Protein (6.3-8.3) g/dL Albumin (3.5-5.0) g/dL Globulin (2.2-3.9) gm/dL Albumin/Globulin Ratio (1.0-2.1) Procalcitonin (0.19-0.49) NG/ML Free T3 pg/mL (2.77-5.27) pg/mL TSH 3rd Generation (0.46-4.68) mIU/L Arterial Blood Potassium (3.6-5.2) mmol/L Blood Type Antibody Screen Laboratory Results - last 24 hr 10/15/17 10/15/17 10/17/17 08:32 15:33 06:23 WBC RBC Hgb Hct MCV MCH MCHC RDW Plt Count MPV Neut % (Auto) Lymph % (Auto) Williamson % (Auto) Eos % (Auto) Baso % (Auto) Neut # Lymph # Williamson # Eos # Baso # Neutrophils % (Manual) Band Neutrophils % Lymphocytes % (Manual) Monocytes % (Manual) Platelet Estimate Large Platelets Polychromasia Hypochromasia (manual) Anisocytosis (manual) PT INR APTT Puncture Site pCO2 pO2 HCO3 ABG pH ABG Total CO2 ABG O2 Saturation ABG Base Excess ABG Hemoglobin ABG Carboxyhemoglobin POC ABG HHb (Measured) ABG Methemoglobin Dayron Test ABG Potassium A-a O2 Difference Respiratory Index Hgb O2 Saturation Glucose Lactate Vent Mode Mechanical Rate FiO2 Tidal Volume PEEP Inspiratory BiPAP Expiratory BiPAP Crit Value Called To Crit Value Called By Crit Value Read Back Blood Gas Notified Time Sodium 152 H Potassium 4.1 Chloride 119 H Carbon Dioxide 25 Anion Gap 12 BUN 38 H Creatinine 0.9 Est GFR ( Amer) > 60 Est GFR (Non-Af Amer) > 60 POC Glucose (mg/dL) Random Glucose 95 Calcium 8.3 L Ionized Calcium 5.6 Phosphorus 3.6 Magnesium 1.9 Total Bilirubin 0.4 AST 27 ALT 26 Alkaline Phosphatase 87 Total Creatine Kinase CK-MB (Mass) Troponin I NT-Pro-B Natriuret Pep 2590 H Total Protein 5.2 L Albumin 2.4 L Globulin 2.8 Albumin/Globulin Ratio 0.9 L Procalcitonin Free T3 pg/mL TSH 3rd Generation Arterial Blood Potassium Blood Type O POSITIVE Antibody Screen Negative 10/17/17 10/17/17 10/17/17 06:25 10:25 11:53 WBC RBC Hgb Hct MCV MCH MCHC RDW Plt Count MPV Neut % (Auto) Lymph % (Auto) Williamson % (Auto) Eos % (Auto) Baso % (Auto) Neut # Lymph # Williamson # Eos # Baso # Neutrophils % (Manual) 89 H Band Neutrophils % Lymphocytes % (Manual) 7 L Monocytes % (Manual) 4 Platelet Estimate Normal Large Platelets Present Polychromasia Hypochromasia (manual) Anisocytosis (manual) Slight PT INR APTT Puncture Site Lb pCO2 46 H pO2 87 HCO3 24.4 ABG pH 7.35 ABG Total CO2 26.8 ABG O2 Saturation 97.4 ABG Base Excess -0.6 ABG Hemoglobin ABG Carboxyhemoglobin POC ABG HHb (Measured) ABG Methemoglobin Dayron Test Na ABG Potassium 3.9 A-a O2 Difference 283.0 Respiratory Index 3.3 Hgb O2 Saturation Glucose 107 H Lactate 0.9 Vent Mode Mechanical Rate FiO2 60.0 Tidal Volume PEEP Inspiratory BiPAP 12 Expiratory BiPAP 5 Crit Value Called To Dr cowan Crit Value Called By Devonte walters [facility] Crit Value Read Back Y Blood Gas Notified Time 1040 Sodium 154.0 H Potassium Chloride 124.0 H Carbon Dioxide Anion Gap BUN Creatinine Est GFR ( Amer) Est GFR (Non-Af Amer) POC Glucose (mg/dL) Random Glucose Calcium Ionized Calcium Phosphorus Magnesium Total Bilirubin AST ALT Alkaline Phosphatase Total Creatine Kinase CK-MB (Mass) Troponin I NT-Pro-B Natriuret Pep Total Protein Albumin Globulin Albumin/Globulin Ratio Procalcitonin Free T3 pg/mL 1.76 L TSH 3rd Generation 4.72 H Arterial Blood Potassium 3.9 Blood Type Antibody Screen 10/17/17 10/17/17 10/17/17 12:08 15:56 16:22 WBC RBC Hgb Hct MCV MCH MCHC RDW Plt Count MPV Neut % (Auto) Lymph % (Auto) Williamson % (Auto) Eos % (Auto) Baso % (Auto) Neut # Lymph # Williamson # Eos # Baso # Neutrophils % (Manual) Band Neutrophils % Lymphocytes % (Manual) Monocytes % (Manual) Platelet Estimate Large Platelets Polychromasia Hypochromasia (manual) Anisocytosis (manual) PT INR APTT Puncture Site Rba pCO2 71 H* pO2 27 L* HCO3 22.9 ABG pH 7.22 L ABG Total CO2 31.3 H ABG O2 Saturation 46.9 L ABG Base Excess -0.5 ABG Hemoglobin ABG Carboxyhemoglobin POC ABG HHb (Measured) ABG Methemoglobin Dayron Test Na ABG Potassium 5.1 A-a O2 Difference 597.0 Respiratory Index 22.1 Hgb O2 Saturation Glucose 127 H Lactate 1.9 Vent Mode Prvc Mechanical Rate 20 FiO2 100.0 Tidal Volume 500 PEEP 5 Inspiratory BiPAP Expiratory BiPAP Crit Value Called To Antionette espino Crit Value Called By Jason Crit Value Read Back Y Blood Gas Notified Time 1559 Sodium 154.0 H Potassium Chloride 126.0 H Carbon Dioxide Anion Gap BUN Creatinine Est GFR ( Amer) Est GFR (Non-Af Amer) POC Glucose (mg/dL) 111 H Random Glucose Calcium Ionized Calcium Phosphorus Magnesium Total Bilirubin AST ALT Alkaline Phosphatase Total Creatine Kinase CK-MB (Mass) Troponin I NT-Pro-B Natriuret Pep Total Protein Albumin Globulin Albumin/Globulin Ratio Procalcitonin 0.60 H Free T3 pg/mL TSH 3rd Generation Arterial Blood Potassium 5.1 Blood Type Antibody Screen 10/17/17 10/17/17 10/17/17 16:51 16:51 16:51 WBC 14.3 H RBC 2.53 L Hgb 7.2 L D Hct 23.1 L MCV 91.2 MCH 28.6 MCHC 31.4 L RDW 15.5 H Plt Count 316 MPV 9.4 Neut % (Auto) 91.8 H Lymph % (Auto) 4.5 L Williamson % (Auto) 3.4 Eos % (Auto) 0.2 Baso % (Auto) 0.1 Neut # 13.1 H Lymph # 0.6 L Williamson # 0.5 Eos # 0.0 Baso # 0.0 Neutrophils % (Manual) 91 H Band Neutrophils % 1 Lymphocytes % (Manual) 4 L Monocytes % (Manual) 4 Platelet Estimate Normal Large Platelets Polychromasia Slight Hypochromasia (manual) Slight Anisocytosis (manual) Slight PT 14.7 H INR 1.3 APTT 26 Puncture Site pCO2 pO2 HCO3 ABG pH ABG Total CO2 ABG O2 Saturation ABG Base Excess ABG Hemoglobin ABG Carboxyhemoglobin POC ABG HHb (Measured) ABG Methemoglobin Dayron Test ABG Potassium A-a O2 Difference Respiratory Index Hgb O2 Saturation Glucose Lactate Vent Mode Mechanical Rate FiO2 Tidal Volume PEEP Inspiratory BiPAP Expiratory BiPAP Crit Value Called To Crit Value Called By Crit Value Read Back Blood Gas Notified Time Sodium 151 H Potassium 4.0 Chloride 120 H Carbon Dioxide 28 Anion Gap 6 L BUN 44 H Creatinine 1.2 Est GFR ( Amer) 53 Est GFR (Non-Af Amer) 44 POC Glucose (mg/dL) Random Glucose 203 H Calcium 7.5 L Ionized Calcium Phosphorus 4.8 H Magnesium 1.8 Total Bilirubin 0.3 AST 308 H D ALT 135 H D Alkaline Phosphatase 62 Total Creatine Kinase 51 CK-MB (Mass) 1.48 Troponin I 0.0450 NT-Pro-B Natriuret Pep Total Protein 4.1 L Albumin 1.9 L D Globulin 2.2 Albumin/Globulin Ratio 0.9 L Procalcitonin Free T3 pg/mL TSH 3rd Generation Arterial Blood Potassium Blood Type Antibody Screen 10/17/17 10/17/17 10/17/17 17:40 17:47 21:47 WBC RBC Hgb Hct MCV MCH MCHC RDW Plt Count MPV Neut % (Auto) Lymph % (Auto) Williamson % (Auto) Eos % (Auto) Baso % (Auto) Neut # Lymph # Williamson # Eos # Baso # Neutrophils % (Manual) Band Neutrophils % Lymphocytes % (Manual) Monocytes % (Manual) Platelet Estimate Large Platelets Polychromasia Hypochromasia (manual) Anisocytosis (manual) PT INR APTT Puncture Site Rba pCO2 49 H pO2 295 H HCO3 24.5 ABG pH 7.33 L ABG Total CO2 27.3 ABG O2 Saturation 99.1 H ABG Base Excess -0.7 ABG Hemoglobin ABG Carboxyhemoglobin POC ABG HHb (Measured) ABG Methemoglobin Dayron Test Na ABG Potassium 3.8 A-a O2 Difference 357.0 Respiratory Index 1.2 Hgb O2 Saturation Glucose 188 H Lactate 1.2 Vent Mode Prvc Mechanical Rate 22 FiO2 100.0 Tidal Volume 440 PEEP 5 Inspiratory BiPAP Expiratory BiPAP Crit Value Called To Crit Value Called By Crit Value Read Back Blood Gas Notified Time Sodium 156.0 H 153 H Potassium 4.1 Chloride 127.0 H 119 H Carbon Dioxide 28 Anion Gap 10 BUN 44 H Creatinine 1.3 H Est GFR ( Amer) 48 Est GFR (Non-Af Amer) 40 POC Glucose (mg/dL) 170 H Random Glucose 155 H Calcium 8.4 L Ionized Calcium Phosphorus 3.1 Magnesium 1.9 Total Bilirubin 0.6 AST 318 H ALT 145 H Alkaline Phosphatase 107 Total Creatine Kinase 47 CK-MB (Mass) 1.51 Troponin I 0.0800 NT-Pro-B Natriuret Pep Total Protein 5.4 L Albumin 2.6 L D Globulin 2.8 Albumin/Globulin Ratio 0.9 L Procalcitonin Free T3 pg/mL TSH 3rd Generation Arterial Blood Potassium 3.8 Blood Type Antibody Screen 10/17/17 10/17/17 10/17/17 22:24 22:24 23:46 WBC 22.2 H D RBC 3.79 L Hgb 11.3 D Hct 33.7 L MCV 88.8 D MCH 29.9 MCHC 33.7 RDW 15.2 H Plt Count 330 MPV 9.5 Neut % (Auto) 87.6 H Lymph % (Auto) 6.6 L Williamson % (Auto) 5.2 Eos % (Auto) 0.2 Baso % (Auto) 0.4 Neut # 19.4 H Lymph # 1.5 Williamson # 1.2 H Eos # 0.0 Baso # 0.1 Neutrophils % (Manual) 89 H Band Neutrophils % 1 Lymphocytes % (Manual) 8 L Monocytes % (Manual) 2 Platelet Estimate Normal Large Platelets Polychromasia Slight Hypochromasia (manual) Slight Anisocytosis (manual) Slight PT 14.3 H INR 1.2 APTT 27 Puncture Site pCO2 pO2 HCO3 ABG pH ABG Total CO2 ABG O2 Saturation ABG Base Excess ABG Hemoglobin ABG Carboxyhemoglobin POC ABG HHb (Measured) ABG Methemoglobin Dayron Test ABG Potassium A-a O2 Difference Respiratory Index Hgb O2 Saturation Glucose Lactate Vent Mode Mechanical Rate FiO2 Tidal Volume PEEP Inspiratory BiPAP Expiratory BiPAP Crit Value Called To Crit Value Called By Crit Value Read Back Blood Gas Notified Time Sodium Potassium Chloride Carbon Dioxide Anion Gap BUN Creatinine Est GFR ( Amer) Est GFR (Non-Af Amer) POC Glucose (mg/dL) 154 H Random Glucose Calcium Ionized Calcium Phosphorus Magnesium Total Bilirubin AST ALT Alkaline Phosphatase Total Creatine Kinase CK-MB (Mass) Troponin I NT-Pro-B Natriuret Pep Total Protein Albumin Globulin Albumin/Globulin Ratio Procalcitonin Free T3 pg/mL TSH 3rd Generation Arterial Blood Potassium Blood Type Antibody Screen 10/18/17 10/18/17 10/18/17 05:33 05:48 06:23 WBC RBC Hgb Hct MCV MCH MCHC RDW Plt Count MPV Neut % (Auto) Lymph % (Auto) Williamson % (Auto) Eos % (Auto) Baso % (Auto) Neut # Lymph # Williamson # Eos # Baso # Neutrophils % (Manual) Band Neutrophils % Lymphocytes % (Manual) Monocytes % (Manual) Platelet Estimate Large Platelets Polychromasia Hypochromasia (manual) Anisocytosis (manual) PT INR APTT Puncture Site Rb pCO2 31 L pO2 157 H HCO3 28.2 H ABG pH 7.54 H ABG Total CO2 27.5 ABG O2 Saturation 98.3 H ABG Base Excess 4.2 H ABG Hemoglobin 11.0 L ABG Carboxyhemoglobin 0.8 POC ABG HHb (Measured) 1.7 ABG Methemoglobin 1.3 Dayron Test Na ABG Potassium A-a O2 Difference 375.0 Respiratory Index 2.4 Hgb O2 Saturation 96.2 Glucose Lactate Vent Mode Prvc Mechanical Rate 22 FiO2 80.0 Tidal Volume 450 PEEP 5 Inspiratory BiPAP Expiratory BiPAP Crit Value Called To Crit Value Called By Crit Value Read Back Blood Gas Notified Time Sodium 155 H Potassium 3.5 L Chloride 126 H Carbon Dioxide 24 Anion Gap 9 L BUN 39 H Creatinine 1.1 Est GFR ( Amer) 58 Est GFR (Non-Af Amer) 48 POC Glucose (mg/dL) 127 H Random Glucose 125 H Calcium 7.7 L Ionized Calcium Phosphorus 1.9 L Magnesium 2.0 Total Bilirubin 0.5 AST 168 H D ALT 96 H D Alkaline Phosphatase 84 Total Creatine Kinase CK-MB (Mass) Troponin I NT-Pro-B Natriuret Pep Total Protein 4.7 L Albumin 2.1 L Globulin 2.5 Albumin/Globulin Ratio 0.8 L Procalcitonin Free T3 pg/mL TSH 3rd Generation Arterial Blood Potassium Blood Type Antibody Screen 10/18/17 06:25 WBC 16.2 H RBC 3.59 L Hgb 10.7 L Hct 32.0 L MCV 89.2 MCH 29.9 MCHC 33.6 RDW 15.3 H Plt Count 354 MPV 9.4 Neut % (Auto) Lymph % (Auto) Williamson % (Auto) Eos % (Auto) Baso % (Auto) Neut # Lymph # Williamson # Eos # Baso # Neutrophils % (Manual) Band Neutrophils % Lymphocytes % (Manual) Monocytes % (Manual) Platelet Estimate Large Platelets Polychromasia Hypochromasia (manual) Anisocytosis (manual) PT INR APTT Puncture Site pCO2 pO2 HCO3 ABG pH ABG Total CO2 ABG O2 Saturation ABG Base Excess ABG Hemoglobin ABG Carboxyhemoglobin POC ABG HHb (Measured) ABG Methemoglobin Dayron Test ABG Potassium A-a O2 Difference Respiratory Index Hgb O2 Saturation Glucose Lactate Vent Mode Mechanical Rate FiO2 Tidal Volume PEEP Inspiratory BiPAP Expiratory BiPAP Crit Value Called To Crit Value Called By Crit Value Read Back Blood Gas Notified Time Sodium Potassium Chloride Carbon Dioxide Anion Gap BUN Creatinine Est GFR ( Amer) Est GFR (Non-Af Amer) POC Glucose (mg/dL) Random Glucose Calcium Ionized Calcium Phosphorus Magnesium Total Bilirubin AST ALT Alkaline Phosphatase Total Creatine Kinase CK-MB (Mass) Troponin I NT-Pro-B Natriuret Pep Total Protein Albumin Globulin Albumin/Globulin Ratio Procalcitonin Free T3 pg/mL TSH 3rd Generation Arterial Blood Potassium Blood Type Antibody Screen EKG/Cardiology Studies: Cardiology / EKG Studies 10/17/17 09:43 EKG [ELECTROCARDIOGRAM] Routine Comment: Mode Of Transportation: Reason For Exam: Check rhythm Isolation: Contact 10/17/17 16:33 ELECTROCARDIOGRAM Stat Comment: Mode Of Transportation: PORTABLE Reason For Exam: Post cardiac arrest Isolation: Contact Fingerstick Blood Sugar Results: 127 Assessment/Plan - Assessment and Plan (Free Text) Assessment: 77F Afib, Rate controlled, s/p cath, s/p small bowel resection for ischemic bowel, s/p Code blue 2/2 to hypoperfusion acute GI bleed Plan: Psych: No acute issues Neuro: No Acute issues Cards: Afib, rate controlled anticoag held due to GI Bleed amiodarone 400 PO BID, cardizem 90 PO Q6, losartan levophed Pulm: intubated yesterday s/p code blue CTA shows no evidence of PE CXR unremarkable GI: s/p smal bowel resection for ischemic bowel, flagyl NPO GI will reeval given tarry stools and drop in HgB Renal: no acute issues PPX: Protnoix <Delvin Frias S - Last Filed: 10/18/17 17:52> CCU Objective - Vital Signs / Intake & Output Vital Signs (Last 4 hours): Vital Signs Temp Pulse Resp BP Pulse Ox 10/18/17 16:00 98.7 F 10/18/17 15:27 106 H 17 101/40 L 100 10/18/17 14:25 108 H 14 117/57 L 90 L 10/18/17 14:23 108 H 14 130/61 100 10/18/17 14:21 121 H 20 123/36 L 100 10/18/17 14:19 106 H 20 115/40 L 100 10/18/17 14:17 110 H 17 118/39 L 100 10/18/17 14:15 111 H 20 113/40 L 100 10/18/17 14:13 104 H 19 112/46 L 100 10/18/17 14:11 110 H 17 120/44 L 100 10/18/17 14:09 102 H 13 113/42 L 94 L 10/18/17 14:07 110 H 14 114/45 L 99 10/18/17 14:05 111 H 13 128/41 L 98 10/18/17 14:03 100 H 21 145/40 L 98 10/18/17 14:00 120 H 13 130/44 L 96 10/18/17 13:58 93 H 14 120/42 L 99 10/18/17 13:56 100 H 12 118/40 L 100 10/18/17 13:54 102 H 11 L 105/47 L 100 10/18/17 13:52 103 H 11 L 107/46 L 100 10/18/17 13:50 101 H 17 103/47 L 98 10/18/17 13:48 109 H 12 101/47 L 100 10/18/17 13:46 90 14 120/39 L 99 Intake and Output (Last 8hrs): Intake & Output 10/18/17 10/18/17 10/18/17 06:59 14:59 22:59 Intake Total 624.8 904.7 Output Total 440 520 Balance 184.8 384.7 Weight 189 lb Intake: IV 18.8 358 Intake, IV Amount 606.0 546.7 Left Distal Port Internal 99 Jugular Left Medial Port Internal 156.0 97.7 Jugular Left Proximal Port - 140 Distal Port Left Proximal Port 450 210 Internal Jugular Output: Urine 440 520 Urethral (Renee) 440 520 Other: # Bowel Movements 1 - Medications Active Medications: Active Medications Generic Name Dose Route Start Last Admin Trade Name Freq PRN Reason Stop Dose Admin Acetaminophen 650 mg 10/11/17 10:17 Tylenol 325mg Tab PO Q6 PRN Fever >100.4 F Albuterol/Ipratropium 3 ml 10/17/17 14:00 10/18/17 13:02 Duoneb 3 Mg/0.5 Mg (3 Ml) Ud INH Not Given RQ6 TIM Diltiazem HCl 90 mg 10/15/17 12:00 10/18/17 17:12 Cardizem PO Not Given Q6 TIM Hydromorphone HCl 1 mg 10/17/17 19:00 Dilaudid IVP Q4H PRN Anxiety Metronidazole 500 mg in 100 mls @ 100 mls/hr 10/07/17 22:00 10/18/17 15:06 Flagyl IVPB 100 mls/hr Q8 TMI Administration Meropenem 1 gm/ Sodium 100 mls @ 100 mls/hr 10/10/17 14:00 10/18/17 15:07 Chloride IVPB 100 mls/hr Q8H TIM Administration Dextrose/Sodium Chloride 1,000 mls @ 30 mls/hr 10/17/17 11:00 10/18/17 11:03 Dextrose 5%/0.9% Ns 1000 Ml IV 30 mls/hr .Q24H TIM Administration Norepinephrine Bitartrate 8 mg 258 mls @ 7.74 mls/hr 10/17/17 16:03 10/18/17 14:30 / Sodium Chloride IV 0 mcg/min .Q24H PRN 0 mls/hr TITRATE PER MD ORDER Titration Protocol 4 MCG/MIN Pantoprazole Sodium 80 mg/ 100 mls @ 10 mls/hr 10/18/17 08:55 10/18/17 09:46 Sodium Chloride IV 10 mls/hr .Q10H TIM Administration 8 MG/HR Sodium Chloride 1,000 mls @ 1,000 mls/hr 10/18/17 16:58 10/18/17 17:07 Sodium Chloride 0.9% IV 10/18/17 17:57 1,000 mls/hr .Q1H ONE Administration Insulin Human Regular 0 unit 10/17/17 18:00 10/18/17 12:02 Novolin R SC Not Given Q6H [facility] Protocol Levothyroxine Sodium 50 mcg 10/12/17 06:30 10/18/17 06:44 Synthroid PO Not Given DAILY@0630 TIM Lorazepam 2 mg 10/17/17 19:00 Ativan IVP Q6H PRN Anxiety Losartan Potassium 100 mg 10/12/17 10:00 10/18/17 09:51 Cozaar PO 100 mg DAILY TIM Administration Metoprolol Succinate 50 mg 10/18/17 12:15 10/18/17 13:10 Toprol Xl PO Not Given DAILY TIM Mupirocin 0 gm 10/16/17 18:45 10/18/17 09:47 Bactroban Ointment TOP 1 gm BID TIM Administration Ondansetron HCl 4 mg 10/07/17 19:28 10/10/17 21:10 Zofran Inj IVP 4 mg Q6H PRN Administration Nausea/Vomiting Polyethylene Glycol 17 gm 10/06/17 15:08 10/07/17 10:14 Miralax PO 17 gm BID PRN Administration Constipation Rosuvastatin Calcium 5 mg 10/11/17 22:00 10/17/17 22:00 Crestor NG Not Given HS TIM Saccharomyces Boulardii 250 mg 10/10/17 11:15 10/18/17 17:12 Florastor NG Not Given BID TIM Vitamin A 0.5 ea 10/11/17 20:00 10/18/17 15:16 Vitamin A & D Oint Ud Foilpak TOP 0.5 ea Q4 TIM Administration - Patient Studies Lab Studies: Microbiology Studies 10/17/17 10:24 Gram Stain - Final Sputum 10/18/17 13:00 Gram Stain - Final Trachasp 10/17/17 Unknown Ova and Parasite Concentrate Exam - Final Stool 10/16/17 18:15 Blood Culture - Preliminary Blood-Venous NO GROWTH AFTER 24 HOURS 10/16/17 18:25 Blood Culture - Preliminary Blood-Venous NO GROWTH AFTER 24 HOURS Lab Studies 10/18/17 10/18/17 10/18/17 Range/Units 11:51 11:34 11:32 WBC (4.8-10.8) K/uL RBC (3.80-5.20) Mil/uL Hgb (11.0-16.0) g/dL Hct (34.0-47.0) % MCV (81.0-99.0) fL MCH (27.0-31.0) pg MCHC (33.0-37.0) g/dL RDW (11.5-14.5) % Plt Count (130-400) K/uL MPV (7.2-11.7) fL Neut % (Auto) (50.0-75.0) % Lymph % (Auto) (20.0-40.0) % Williamson % (Auto) (0.0-10.0) % Eos % (Auto) (0.0-4.0) % Baso % (Auto) (0.0-2.0) % Neut # (1.8-7.0) K/uL Lymph # (1.0-4.3) K/uL Williamson # (0.0-0.8) K/uL Eos # (0.0-0.7) K/uL Baso # (0.0-0.2) K/uL Neutrophils % (Manual) (50-75) % Band Neutrophils % (0-2) % Lymphocytes % (Manual) (20-40) % Monocytes % (Manual) (0-10) % Platelet Estimate (NORMAL) Polychromasia Hypochromasia (manual) Anisocytosis (manual) PT (9.7-12.2) SECONDS INR APTT (21-34) SECONDS Puncture Site pCO2 (35-45) mm/Hg pO2 (80-100) mm/Hg HCO3 (21-28) mmol/L ABG pH (7.35-7.45) ABG Total CO2 (22-28) mmol/L ABG O2 Saturation (95-98) % ABG Base Excess (-2.0-3.0) mmol/L ABG Hemoglobin (11.7-17.4) g/dL ABG Carboxyhemoglobin (0.5-1.5) % POC ABG HHb (Measured) (0.0-5.0) % ABG Methemoglobin (0.0-3.0) % Dayron Test A-a O2 Difference mm/Hg Respiratory Index Hgb O2 Saturation (95.0-98.0) % Vent Mode Mechanical Rate FiO2 % Tidal Volume PEEP Sodium (132-148) mmol/L Potassium (3.6-5.2) mmol/L Chloride (98-107) mmol/L Carbon Dioxide (22-30) mmol/L Anion Gap (10-20) BUN (7-17) mg/dL Creatinine (0.7-1.2) mg/dL Est GFR ( Amer) Est GFR (Non-Af Amer) POC Glucose (mg/dL) 126 H (65-110) mg/dL Random Glucose (65-105) mg/dL Calcium (8.6-10.4) mg/dl Phosphorus (2.5-4.5) mg/dL Magnesium (1.6-2.3) mg/dL Total Bilirubin (0.2-1.3) mg/dL AST (14-36) U/L ALT (9-52) U/L Alkaline Phosphatase (38-126) U/L Total Creatine Kinase (30-135) U/L CK-MB (Mass) (0.0-3.38) ng/mL Troponin I (0.00-0.120) ng/mL Total Protein (6.3-8.3) g/dL Albumin (3.5-5.0) g/dL Globulin (2.2-3.9) gm/dL Albumin/Globulin Ratio (1.0-2.1) Procalcitonin 0.60 H (0.19-0.49) NG/ML Stool Occult Blood (NEGATIVE) C. difficile Ag & Toxin (NEGATIVE) Blood Type O POSITIVE Antibody Screen Negative 10/18/17 10/18/17 10/18/17 Range/Units 10:32 06:25 06:23 WBC 16.2 H (4.8-10.8) K/uL RBC 3.59 L (3.80-5.20) Mil/uL Hgb 10.7 L (11.0-16.0) g/dL Hct 32.0 L (34.0-47.0) % MCV 89.2 (81.0-99.0) fL MCH 29.9 (27.0-31.0) pg MCHC 33.6 (33.0-37.0) g/dL RDW 15.3 H (11.5-14.5) % Plt Count 354 (130-400) K/uL MPV 9.4 (7.2-11.7) fL Neut % (Auto) (50.0-75.0) % Lymph % (Auto) (20.0-40.0) % Williamson % (Auto) (0.0-10.0) % Eos % (Auto) (0.0-4.0) % Baso % (Auto) (0.0-2.0) % Neut # (1.8-7.0) K/uL Lymph # (1.0-4.3) K/uL Williamson # (0.0-0.8) K/uL Eos # (0.0-0.7) K/uL Baso # (0.0-0.2) K/uL Neutrophils % (Manual) (50-75) % Band Neutrophils % (0-2) % Lymphocytes % (Manual) (20-40) % Monocytes % (Manual) (0-10) % Platelet Estimate (NORMAL) Polychromasia Hypochromasia (manual) Anisocytosis (manual) PT (9.7-12.2) SECONDS INR APTT (21-34) SECONDS Puncture Site pCO2 (35-45) mm/Hg pO2 (80-100) mm/Hg HCO3 (21-28) mmol/L ABG pH (7.35-7.45) ABG Total CO2 (22-28) mmol/L ABG O2 Saturation (95-98) % ABG Base Excess (-2.0-3.0) mmol/L ABG Hemoglobin (11.7-17.4) g/dL ABG Carboxyhemoglobin (0.5-1.5) % POC ABG HHb (Measured) (0.0-5.0) % ABG Methemoglobin (0.0-3.0) % Dayron Test A-a O2 Difference mm/Hg Respiratory Index Hgb O2 Saturation (95.0-98.0) % Vent Mode Mechanical Rate FiO2 % Tidal Volume PEEP Sodium 155 H (132-148) mmol/L Potassium 3.5 L (3.6-5.2) mmol/L Chloride 126 H (98-107) mmol/L Carbon Dioxide 24 (22-30) mmol/L Anion Gap 9 L (10-20) BUN 39 H (7-17) mg/dL Creatinine 1.1 (0.7-1.2) mg/dL Est GFR ( Amer) 58 Est GFR (Non-Af Amer) 48 POC Glucose (mg/dL) (65-110) mg/dL Random Glucose 125 H (65-105) mg/dL Calcium 7.7 L (8.6-10.4) mg/dl Phosphorus 1.9 L (2.5-4.5) mg/dL Magnesium 2.0 (1.6-2.3) mg/dL Total Bilirubin 0.5 (0.2-1.3) mg/dL AST 168 H D (14-36) U/L ALT 96 H D (9-52) U/L Alkaline Phosphatase 84 (38-126) U/L Total Creatine Kinase (30-135) U/L CK-MB (Mass) (0.0-3.38) ng/mL Troponin I (0.00-0.120) ng/mL Total Protein 4.7 L (6.3-8.3) g/dL Albumin 2.1 L (3.5-5.0) g/dL Globulin 2.5 (2.2-3.9) gm/dL Albumin/Globulin Ratio 0.8 L (1.0-2.1) Procalcitonin (0.19-0.49) NG/ML Stool Occult Blood Positive H (NEGATIVE) C. difficile Ag & Toxin (NEGATIVE) Blood Type Antibody Screen 10/18/17 10/18/17 10/17/17 Range/Units 05:48 05:33 23:46 WBC (4.8-10.8) K/uL RBC (3.80-5.20) Mil/uL Hgb (11.0-16.0) g/dL Hct (34.0-47.0) % MCV (81.0-99.0) fL MCH (27.0-31.0) pg MCHC (33.0-37.0) g/dL RDW (11.5-14.5) % Plt Count (130-400) K/uL MPV (7.2-11.7) fL Neut % (Auto) (50.0-75.0) % Lymph % (Auto) (20.0-40.0) % Williamson % (Auto) (0.0-10.0) % Eos % (Auto) (0.0-4.0) % Baso % (Auto) (0.0-2.0) % Neut # (1.8-7.0) K/uL Lymph # (1.0-4.3) K/uL Williamson # (0.0-0.8) K/uL Eos # (0.0-0.7) K/uL Baso # (0.0-0.2) K/uL Neutrophils % (Manual) (50-75) % Band Neutrophils % (0-2) % Lymphocytes % (Manual) (20-40) % Monocytes % (Manual) (0-10) % Platelet Estimate (NORMAL) Polychromasia Hypochromasia (manual) Anisocytosis (manual) PT (9.7-12.2) SECONDS INR APTT (21-34) SECONDS Puncture Site Rb pCO2 31 L (35-45) mm/Hg pO2 157 H (80-100) mm/Hg HCO3 28.2 H (21-28) mmol/L ABG pH 7.54 H (7.35-7.45) ABG Total CO2 27.5 (22-28) mmol/L ABG O2 Saturation 98.3 H (95-98) % ABG Base Excess 4.2 H (-2.0-3.0) mmol/L ABG Hemoglobin 11.0 L (11.7-17.4) g/dL ABG Carboxyhemoglobin 0.8 (0.5-1.5) % POC ABG HHb (Measured) 1.7 (0.0-5.0) % ABG Methemoglobin 1.3 (0.0-3.0) % Dayron Test Na A-a O2 Difference 375.0 mm/Hg Respiratory Index 2.4 Hgb O2 Saturation 96.2 (95.0-98.0) % Vent Mode Prvc Mechanical Rate 22 FiO2 80.0 % Tidal Volume 450 PEEP 5 Sodium (132-148) mmol/L Potassium (3.6-5.2) mmol/L Chloride (98-107) mmol/L Carbon Dioxide (22-30) mmol/L Anion Gap (10-20) BUN (7-17) mg/dL Creatinine (0.7-1.2) mg/dL Est GFR ( Amer) Est GFR (Non-Af Amer) POC Glucose (mg/dL) 127 H 154 H (65-110) mg/dL Random Glucose (65-105) mg/dL Calcium (8.6-10.4) mg/dl Phosphorus (2.5-4.5) mg/dL Magnesium (1.6-2.3) mg/dL Total Bilirubin (0.2-1.3) mg/dL AST (14-36) U/L ALT (9-52) U/L Alkaline Phosphatase (38-126) U/L Total Creatine Kinase (30-135) U/L CK-MB (Mass) (0.0-3.38) ng/mL Troponin I (0.00-0.120) ng/mL Total Protein (6.3-8.3) g/dL Albumin (3.5-5.0) g/dL Globulin (2.2-3.9) gm/dL Albumin/Globulin Ratio (1.0-2.1) Procalcitonin (0.19-0.49) NG/ML Stool Occult Blood (NEGATIVE) C. difficile Ag & Toxin (NEGATIVE) Blood Type Antibody Screen 10/17/17 10/17/17 10/17/17 Range/Units 22:24 22:24 21:47 WBC 22.2 H D (4.8-10.8) K/uL RBC 3.79 L (3.80-5.20) Mil/uL Hgb 11.3 D (11.0-16.0) g/dL Hct 33.7 L (34.0-47.0) % MCV 88.8 D (81.0-99.0) fL MCH 29.9 (27.0-31.0) pg MCHC 33.7 (33.0-37.0) g/dL RDW 15.2 H (11.5-14.5) % Plt Count 330 (130-400) K/uL MPV 9.5 (7.2-11.7) fL Neut % (Auto) 87.6 H (50.0-75.0) % Lymph % (Auto) 6.6 L (20.0-40.0) % Williamson % (Auto) 5.2 (0.0-10.0) % Eos % (Auto) 0.2 (0.0-4.0) % Baso % (Auto) 0.4 (0.0-2.0) % Neut # 19.4 H (1.8-7.0) K/uL Lymph # 1.5 (1.0-4.3) K/uL Williamson # 1.2 H (0.0-0.8) K/uL Eos # 0.0 (0.0-0.7) K/uL Baso # 0.1 (0.0-0.2) K/uL Neutrophils % (Manual) 89 H (50-75) % Band Neutrophils % 1 (0-2) % Lymphocytes % (Manual) 8 L (20-40) % Monocytes % (Manual) 2 (0-10) % Platelet Estimate Normal (NORMAL) Polychromasia Slight Hypochromasia (manual) Slight Anisocytosis (manual) Slight PT 14.3 H (9.7-12.2) SECONDS INR 1.2 APTT 27 (21-34) SECONDS Puncture Site pCO2 (35-45) mm/Hg pO2 (80-100) mm/Hg HCO3 (21-28) mmol/L ABG pH (7.35-7.45) ABG Total CO2 (22-28) mmol/L ABG O2 Saturation (95-98) % ABG Base Excess (-2.0-3.0) mmol/L ABG Hemoglobin (11.7-17.4) g/dL ABG Carboxyhemoglobin (0.5-1.5) % POC ABG HHb (Measured) (0.0-5.0) % ABG Methemoglobin (0.0-3.0) % Dayron Test A-a O2 Difference mm/Hg Respiratory Index Hgb O2 Saturation (95.0-98.0) % Vent Mode Mechanical Rate FiO2 % Tidal Volume PEEP Sodium 153 H (132-148) mmol/L Potassium 4.1 (3.6-5.2) mmol/L Chloride 119 H (98-107) mmol/L Carbon Dioxide 28 (22-30) mmol/L Anion Gap 10 (10-20) BUN 44 H (7-17) mg/dL Creatinine 1.3 H (0.7-1.2) mg/dL Est GFR ( Amer) 48 Est GFR (Non-Af Amer) 40 POC Glucose (mg/dL) (65-110) mg/dL Random Glucose 155 H (65-105) mg/dL Calcium 8.4 L (8.6-10.4) mg/dl Phosphorus 3.1 (2.5-4.5) mg/dL Magnesium 1.9 (1.6-2.3) mg/dL Total Bilirubin 0.6 (0.2-1.3) mg/dL AST 318 H (14-36) U/L ALT 145 H (9-52) U/L Alkaline Phosphatase 107 (38-126) U/L Total Creatine Kinase 47 (30-135) U/L CK-MB (Mass) 1.51 (0.0-3.38) ng/mL Troponin I 0.0800 (0.00-0.120) ng/mL Total Protein 5.4 L (6.3-8.3) g/dL Albumin 2.6 L D (3.5-5.0) g/dL Globulin 2.8 (2.2-3.9) gm/dL Albumin/Globulin Ratio 0.9 L (1.0-2.1) Procalcitonin (0.19-0.49) NG/ML Stool Occult Blood (NEGATIVE) C. difficile Ag & Toxin (NEGATIVE) Blood Type Antibody Screen 10/17/17 10/17/17 10/17/17 Range/Units 17:47 16:51 16:22 WBC (4.8-10.8) K/uL RBC (3.80-5.20) Mil/uL Hgb (11.0-16.0) g/dL Hct (34.0-47.0) % MCV (81.0-99.0) fL MCH (27.0-31.0) pg MCHC (33.0-37.0) g/dL RDW (11.5-14.5) % Plt Count (130-400) K/uL MPV (7.2-11.7) fL Neut % (Auto) (50.0-75.0) % Lymph % (Auto) (20.0-40.0) % Williamson % (Auto) (0.0-10.0) % Eos % (Auto) (0.0-4.0) % Baso % (Auto) (0.0-2.0) % Neut # (1.8-7.0) K/uL Lymph # (1.0-4.3) K/uL Williamson # (0.0-0.8) K/uL Eos # (0.0-0.7) K/uL Baso # (0.0-0.2) K/uL Neutrophils % (Manual) (50-75) % Band Neutrophils % (0-2) % Lymphocytes % (Manual) (20-40) % Monocytes % (Manual) (0-10) % Platelet Estimate (NORMAL) Polychromasia Hypochromasia (manual) Anisocytosis (manual) PT (9.7-12.2) SECONDS INR APTT (21-34) SECONDS Puncture Site pCO2 (35-45) mm/Hg pO2 (80-100) mm/Hg HCO3 (21-28) mmol/L ABG pH (7.35-7.45) ABG Total CO2 (22-28) mmol/L ABG O2 Saturation (95-98) % ABG Base Excess (-2.0-3.0) mmol/L ABG Hemoglobin (11.7-17.4) g/dL ABG Carboxyhemoglobin (0.5-1.5) % POC ABG HHb (Measured) (0.0-5.0) % ABG Methemoglobin (0.0-3.0) % Dayron Test A-a O2 Difference mm/Hg Respiratory Index Hgb O2 Saturation (95.0-98.0) % Vent Mode Mechanical Rate FiO2 % Tidal Volume PEEP Sodium (132-148) mmol/L Potassium (3.6-5.2) mmol/L Chloride (98-107) mmol/L Carbon Dioxide (22-30) mmol/L Anion Gap (10-20) BUN (7-17) mg/dL Creatinine (0.7-1.2) mg/dL Est GFR ( Amer) Est GFR (Non-Af Amer) POC Glucose (mg/dL) 170 H (65-110) mg/dL Random Glucose (65-105) mg/dL Calcium (8.6-10.4) mg/dl Phosphorus (2.5-4.5) mg/dL Magnesium (1.6-2.3) mg/dL Total Bilirubin (0.2-1.3) mg/dL AST (14-36) U/L ALT (9-52) U/L Alkaline Phosphatase (38-126) U/L Total Creatine Kinase (30-135) U/L CK-MB (Mass) 1.48 (0.0-3.38) ng/mL Troponin I 0.0450 (0.00-0.120) ng/mL Total Protein (6.3-8.3) g/dL Albumin (3.5-5.0) g/dL Globulin (2.2-3.9) gm/dL Albumin/Globulin Ratio (1.0-2.1) Procalcitonin 0.60 H (0.19-0.49) NG/ML Stool Occult Blood (NEGATIVE) C. difficile Ag & Toxin (NEGATIVE) Blood Type Antibody Screen 10/17/17 10/15/17 Range/Units 12:41 15:33 WBC (4.8-10.8) K/uL RBC (3.80-5.20) Mil/uL Hgb (11.0-16.0) g/dL Hct (34.0-47.0) % MCV (81.0-99.0) fL MCH (27.0-31.0) pg MCHC (33.0-37.0) g/dL RDW (11.5-14.5) % Plt Count (130-400) K/uL MPV (7.2-11.7) fL Neut % (Auto) (50.0-75.0) % Lymph % (Auto) (20.0-40.0) % Williamson % (Auto) (0.0-10.0) % Eos % (Auto) (0.0-4.0) % Baso % (Auto) (0.0-2.0) % Neut # (1.8-7.0) K/uL Lymph # (1.0-4.3) K/uL Williamson # (0.0-0.8) K/uL Eos # (0.0-0.7) K/uL Baso # (0.0-0.2) K/uL Neutrophils % (Manual) (50-75) % Band Neutrophils % (0-2) % Lymphocytes % (Manual) (20-40) % Monocytes % (Manual) (0-10) % Platelet Estimate (NORMAL) Polychromasia Hypochromasia (manual) Anisocytosis (manual) PT (9.7-12.2) SECONDS INR APTT (21-34) SECONDS Puncture Site pCO2 (35-45) mm/Hg pO2 (80-100) mm/Hg HCO3 (21-28) mmol/L ABG pH (7.35-7.45) ABG Total CO2 (22-28) mmol/L ABG O2 Saturation (95-98) % ABG Base Excess (-2.0-3.0) mmol/L ABG Hemoglobin (11.7-17.4) g/dL ABG Carboxyhemoglobin (0.5-1.5) % POC ABG HHb (Measured) (0.0-5.0) % ABG Methemoglobin (0.0-3.0) % Dayron Test A-a O2 Difference mm/Hg Respiratory Index Hgb O2 Saturation (95.0-98.0) % Vent Mode Mechanical Rate FiO2 % Tidal Volume PEEP Sodium (132-148) mmol/L Potassium (3.6-5.2) mmol/L Chloride (98-107) mmol/L Carbon Dioxide (22-30) mmol/L Anion Gap (10-20) BUN (7-17) mg/dL Creatinine (0.7-1.2) mg/dL Est GFR ( Amer) Est GFR (Non-Af Amer) POC Glucose (mg/dL) (65-110) mg/dL Random Glucose (65-105) mg/dL Calcium (8.6-10.4) mg/dl Phosphorus (2.5-4.5) mg/dL Magnesium (1.6-2.3) mg/dL Total Bilirubin (0.2-1.3) mg/dL AST (14-36) U/L ALT (9-52) U/L Alkaline Phosphatase (38-126) U/L Total Creatine Kinase (30-135) U/L CK-MB (Mass) (0.0-3.38) ng/mL Troponin I (0.00-0.120) ng/mL Total Protein (6.3-8.3) g/dL Albumin (3.5-5.0) g/dL Globulin (2.2-3.9) gm/dL Albumin/Globulin Ratio (1.0-2.1) Procalcitonin (0.19-0.49) NG/ML Stool Occult Blood (NEGATIVE) C. difficile Ag & Toxin Negative (NEGATIVE) Blood Type O POSITIVE Antibody Screen Negative Laboratory Results - last 24 hr 10/15/17 10/17/17 10/17/17 15:33 12:41 16:22 WBC RBC Hgb Hct MCV MCH MCHC RDW Plt Count MPV Neut % (Auto) Lymph % (Auto) Williamson % (Auto) Eos % (Auto) Baso % (Auto) Neut # Lymph # Williamson # Eos # Baso # Neutrophils % (Manual) Band Neutrophils % Lymphocytes % (Manual) Monocytes % (Manual) Platelet Estimate Polychromasia Hypochromasia (manual) Anisocytosis (manual) PT INR APTT Puncture Site pCO2 pO2 HCO3 ABG pH ABG Total CO2 ABG O2 Saturation ABG Base Excess ABG Hemoglobin ABG Carboxyhemoglobin POC ABG HHb (Measured) ABG Methemoglobin Dayron Test A-a O2 Difference Respiratory Index Hgb O2 Saturation Vent Mode Mechanical Rate FiO2 Tidal Volume PEEP Sodium Potassium Chloride Carbon Dioxide Anion Gap BUN Creatinine Est GFR ( Amer) Est GFR (Non-Af Amer) POC Glucose (mg/dL) Random Glucose Calcium Phosphorus Magnesium Total Bilirubin AST ALT Alkaline Phosphatase Total Creatine Kinase CK-MB (Mass) Troponin I Total Protein Albumin Globulin Albumin/Globulin Ratio Procalcitonin 0.60 H Stool Occult Blood C. difficile Ag & Toxin Negative Blood Type O POSITIVE Antibody Screen Negative 10/17/17 10/17/17 10/17/17 16:51 17:47 21:47 WBC RBC Hgb Hct MCV MCH MCHC RDW Plt Count MPV Neut % (Auto) Lymph % (Auto) Williamson % (Auto) Eos % (Auto) Baso % (Auto) Neut # Lymph # Williamson # Eos # Baso # Neutrophils % (Manual) Band Neutrophils % Lymphocytes % (Manual) Monocytes % (Manual) Platelet Estimate Polychromasia Hypochromasia (manual) Anisocytosis (manual) PT INR APTT Puncture Site pCO2 pO2 HCO3 ABG pH ABG Total CO2 ABG O2 Saturation ABG Base Excess ABG Hemoglobin ABG Carboxyhemoglobin POC ABG HHb (Measured) ABG Methemoglobin Dayron Test A-a O2 Difference Respiratory Index Hgb O2 Saturation Vent Mode Mechanical Rate FiO2 Tidal Volume PEEP Sodium 153 H Potassium 4.1 Chloride 119 H Carbon Dioxide 28 Anion Gap 10 BUN 44 H Creatinine 1.3 H Est GFR ( Amer) 48 Est GFR (Non-Af Amer) 40 POC Glucose (mg/dL) 170 H Random Glucose 155 H Calcium 8.4 L Phosphorus 3.1 Magnesium 1.9 Total Bilirubin 0.6 AST 318 H ALT 145 H Alkaline Phosphatase 107 Total Creatine Kinase 47 CK-MB (Mass) 1.48 1.51 Troponin I 0.0450 0.0800 Total Protein 5.4 L Albumin 2.6 L D Globulin 2.8 Albumin/Globulin Ratio 0.9 L Procalcitonin Stool Occult Blood C. difficile Ag & Toxin Blood Type Antibody Screen 10/17/17 10/17/17 10/17/17 22:24 22:24 23:46 WBC 22.2 H D RBC 3.79 L Hgb 11.3 D Hct 33.7 L MCV 88.8 D MCH 29.9 MCHC 33.7 RDW 15.2 H Plt Count 330 MPV 9.5 Neut % (Auto) 87.6 H Lymph % (Auto) 6.6 L Williamson % (Auto) 5.2 Eos % (Auto) 0.2 Baso % (Auto) 0.4 Neut # 19.4 H Lymph # 1.5 Williamson # 1.2 H Eos # 0.0 Baso # 0.1 Neutrophils % (Manual) 89 H Band Neutrophils % 1 Lymphocytes % (Manual) 8 L Monocytes % (Manual) 2 Platelet Estimate Normal Polychromasia Slight Hypochromasia (manual) Slight Anisocytosis (manual) Slight PT 14.3 H INR 1.2 APTT 27 Puncture Site pCO2 pO2 HCO3 ABG pH ABG Total CO2 ABG O2 Saturation ABG Base Excess ABG Hemoglobin ABG Carboxyhemoglobin POC ABG HHb (Measured) ABG Methemoglobin Dayron Test A-a O2 Difference Respiratory Index Hgb O2 Saturation Vent Mode Mechanical Rate FiO2 Tidal Volume PEEP Sodium Potassium Chloride Carbon Dioxide Anion Gap BUN Creatinine Est GFR ( Amer) Est GFR (Non-Af Amer) POC Glucose (mg/dL) 154 H Random Glucose Calcium Phosphorus Magnesium Total Bilirubin AST ALT Alkaline Phosphatase Total Creatine Kinase CK-MB (Mass) Troponin I Total Protein Albumin Globulin Albumin/Globulin Ratio Procalcitonin Stool Occult Blood C. difficile Ag & Toxin Blood Type Antibody Screen 10/18/17 10/18/17 10/18/17 05:33 05:48 06:23 WBC RBC Hgb Hct MCV MCH MCHC RDW Plt Count MPV Neut % (Auto) Lymph % (Auto) Williamson % (Auto) Eos % (Auto) Baso % (Auto) Neut # Lymph # Williamson # Eos # Baso # Neutrophils % (Manual) Band Neutrophils % Lymphocytes % (Manual) Monocytes % (Manual) Platelet Estimate Polychromasia Hypochromasia (manual) Anisocytosis (manual) PT INR APTT Puncture Site Rb pCO2 31 L pO2 157 H HCO3 28.2 H ABG pH 7.54 H ABG Total CO2 27.5 ABG O2 Saturation 98.3 H ABG Base Excess 4.2 H ABG Hemoglobin 11.0 L ABG Carboxyhemoglobin 0.8 POC ABG HHb (Measured) 1.7 ABG Methemoglobin 1.3 Dayron Test Na A-a O2 Difference 375.0 Respiratory Index 2.4 Hgb O2 Saturation 96.2 Vent Mode Prvc Mechanical Rate 22 FiO2 80.0 Tidal Volume 450 PEEP 5 Sodium 155 H Potassium 3.5 L Chloride 126 H Carbon Dioxide 24 Anion Gap 9 L BUN 39 H Creatinine 1.1 Est GFR ( Amer) 58 Est GFR (Non-Af Amer) 48 POC Glucose (mg/dL) 127 H Random Glucose 125 H Calcium 7.7 L Phosphorus 1.9 L Magnesium 2.0 Total Bilirubin 0.5 AST 168 H D ALT 96 H D Alkaline Phosphatase 84 Total Creatine Kinase CK-MB (Mass) Troponin I Total Protein 4.7 L Albumin 2.1 L Globulin 2.5 Albumin/Globulin Ratio 0.8 L Procalcitonin Stool Occult Blood C. difficile Ag & Toxin Blood Type Antibody Screen 10/18/17 10/18/17 10/18/17 06:25 10:32 11:32 WBC 16.2 H RBC 3.59 L Hgb 10.7 L Hct 32.0 L MCV 89.2 MCH 29.9 MCHC 33.6 RDW 15.3 H Plt Count 354 MPV 9.4 Neut % (Auto) Lymph % (Auto) Williamson % (Auto) Eos % (Auto) Baso % (Auto) Neut # Lymph # Williamson # Eos # Baso # Neutrophils % (Manual) Band Neutrophils % Lymphocytes % (Manual) Monocytes % (Manual) Platelet Estimate Polychromasia Hypochromasia (manual) Anisocytosis (manual) PT INR APTT Puncture Site pCO2 pO2 HCO3 ABG pH ABG Total CO2 ABG O2 Saturation ABG Base Excess ABG Hemoglobin ABG Carboxyhemoglobin POC ABG HHb (Measured) ABG Methemoglobin Dayron Test A-a O2 Difference Respiratory Index Hgb O2 Saturation Vent Mode Mechanical Rate FiO2 Tidal Volume PEEP Sodium Potassium Chloride Carbon Dioxide Anion Gap BUN Creatinine Est GFR ( Amer) Est GFR (Non-Af Amer) POC Glucose (mg/dL) 126 H Random Glucose Calcium Phosphorus Magnesium Total Bilirubin AST ALT Alkaline Phosphatase Total Creatine Kinase CK-MB (Mass) Troponin I Total Protein Albumin Globulin Albumin/Globulin Ratio Procalcitonin Stool Occult Blood Positive H C. difficile Ag & Toxin Blood Type Antibody Screen 10/18/17 10/18/17 11:34 11:51 WBC RBC Hgb Hct MCV MCH MCHC RDW Plt Count MPV Neut % (Auto) Lymph % (Auto) Williamson % (Auto) Eos % (Auto) Baso % (Auto) Neut # Lymph # Williamson # Eos # Baso # Neutrophils % (Manual) Band Neutrophils % Lymphocytes % (Manual) Monocytes % (Manual) Platelet Estimate Polychromasia Hypochromasia (manual) Anisocytosis (manual) PT INR APTT Puncture Site pCO2 pO2 HCO3 ABG pH ABG Total CO2 ABG O2 Saturation ABG Base Excess ABG Hemoglobin ABG Carboxyhemoglobin POC ABG HHb (Measured) ABG Methemoglobin Dayron Test A-a O2 Difference Respiratory Index Hgb O2 Saturation Vent Mode Mechanical Rate FiO2 Tidal Volume PEEP Sodium Potassium Chloride Carbon Dioxide Anion Gap BUN Creatinine Est GFR ( Amer) Est GFR (Non-Af Amer) POC Glucose (mg/dL) Random Glucose Calcium Phosphorus Magnesium Total Bilirubin AST ALT Alkaline Phosphatase Total Creatine Kinase CK-MB (Mass) Troponin I Total Protein Albumin Globulin Albumin/Globulin Ratio Procalcitonin 0.60 H Stool Occult Blood C. difficile Ag & Toxin Blood Type O POSITIVE Antibody Screen Negative EKG/Cardiology Studies: Cardiology / EKG Studies 10/18/17 08:10 EKG [ELECTROCARDIOGRAM] Stat Comment: Mode Of Transportation: Reason For Exam: chest pain Isolation: Contact Critical Care Progress Note - Nutrition Nutrition: Nutrition Category Date Time Status NPO Diet [DIET] Diets 10/18/17 Breakfast Active Attending/Attestation - Attestation I have personally seen and examined this patient.: Yes I have fully participated in the care of the patient.: Yes I have reviewed all pertinent clinical information: Yes Notes (Text): 10/18/17 17:49 patient seen and examined in the intensive care unit. Case discussed with house staff in the morning rounds Status post-EGD for anemia and black tarry stools, (no active bleeding noted) Status post transfusion of packed RBCs overnight patient intubated yesterday for respiratory and cardiac arrest status post resuscitation Patient is awake and responsive Reduce FiO2 as tolerated Continue amiodarone and Cardizem Seen by surgery
--- NOTE | 2017-10-18 08:54 | RAD ---
Chest x-ray single frontal view History: Intubated. Comparison: 10/17/2014 Findings: Endotracheal tube extending into the midthoracic trachea. NG tube extending into the stomach. Other lines and tubes in stable position with a coiled left sided catheter projecting over the left lung apex. Clinical correlation. Few scattered nodular densities at the lung bases. Focal consolidative changes seen at the medial left lung base. Diffuse increased interstitial lung markings. Calcification at the aortic knob. Status post median sternotomy and CABG. Degenerative changes in the spine and shoulders. Impression: Moderate venous congestion. Right hilar prominence. Mild blunting of the left costophrenic angle which may represent trace effusion. Cardiomegaly. Left-sided pacemaker.
[2017-10-18] MEDS ORDERED: Pantoprazole 80 MG in Sodium Chloride 0.9% 100 ML IV ONE (09:00)
--- NOTE | 2017-10-18 09:13 | CP.PCM.PN ---
Subjective - Date & Time of Evaluation Date of Evaluation: 10/18/17 Time of Evaluation: 09:10 - Subjective Subjective: Medical Attending Note: Patient seen this morning. Patient is awake and alert and following commands. Patient reports mild pain over right left eye. Patient denies chest pain, denies abdominal pain, and she is unsure if her stool is black or not. Patient is requesting for liquids and to be washed however, I have explained to her that until we ensure she is not bleeding not feed her and when she is stabilize then we can consider a shower. Patient does not remember yesterday nor remember her son Theodore was here yesterday post code. Discussed with GI fellow, for possible endoscopic procedure, requesting for cardiac clearance. Cardiology to re-eval prior. Objective - Vital Signs/Intake and Output Vital Signs (last 24 hours): Temp Pulse Resp BP Pulse Ox 98.6 F 90 14 134/42 L 98 10/18/17 08:00 10/18/17 08:00 10/18/17 08:00 10/18/17 07:24 10/18/17 08:00 Intake and Output: 10/18/17 10/18/17 06:59 18:59 Intake Total 1642.8 48.8 Output Total 665 40 Balance 977.8 8.8 - Medications Medications: Current Medications Acetaminophen (Tylenol 325mg Tab) 650 mg PO Q6 PRN PRN Reason: Fever >100.4 F Albuterol/Ipratropium (Duoneb 3 Mg/0.5 Mg (3 Ml) Ud) 3 ml INH RQ6 TIM Last Admin: 10/18/17 07:16 Dose: 3 ml Diltiazem HCl (Cardizem) 90 mg PO Q6 TIM Last Admin: 10/18/17 06:32 Dose: Not Given Hydromorphone HCl (Dilaudid) 1 mg IVP Q4H PRN PRN Reason: Anxiety Metronidazole (Flagyl) 500 mg in 100 mls @ 100 mls/hr IVPB Q8 TIM Last Admin: 10/18/17 06:00 Dose: 100 mls/hr Meropenem 1 gm/ Sodium (Chloride) 100 mls @ 100 mls/hr IVPB Q8H TIM Last Admin: 10/18/17 06:30 Dose: 100 mls/hr Dextrose/Sodium Chloride (Dextrose 5%/0.9% Ns 1000 Ml) 1,000 mls @ 30 mls/hr IV .Q24H [facility] Last Admin: 10/17/17 11:10 Dose: 30 mls/hr Norepinephrine Bitartrate 8 mg (/ Sodium Chloride) 258 mls @ 7.74 mls/hr IV .Q24H PRN; Protocol; 4 MCG/MIN PRN Reason: TITRATE PER MD ORDER Last Admin: 10/18/17 00:30 Dose: 10 mcg/min, 19.35 mls/hr Potassium Phosphate 15 mmole/ (Sodium Chloride) 105 mls @ 52.5 mls/hr IV ONCE ONE Stop: 10/18/17 09:59 Last Admin: 10/18/17 08:19 Dose: 52.5 mls/hr Pantoprazole Sodium 80 mg/ (Sodium Chloride) 100 mls @ 10 mls/hr IV .Q10H [facility] PRN Reason: 8 MG/HR Insulin Human Regular (Novolin R) 0 unit SC Q6H [facility] PRN Reason: Protocol Last Admin: 10/18/17 06:00 Dose: Not Given Levothyroxine Sodium (Synthroid) 50 mcg PO DAILY@0630 [facility] Last Admin: 10/18/17 06:44 Dose: Not Given Lorazepam (Ativan) 2 mg IVP Q6H PRN PRN Reason: Anxiety Losartan Potassium (Cozaar) 100 mg PO DAILY [facility] Last Admin: 10/17/17 10:04 Dose: Not Given Mupirocin (Bactroban Ointment) 0 gm TOP BID [facility] Last Admin: 10/17/17 17:54 Dose: 1 gm Ondansetron HCl (Zofran Inj) 4 mg IVP Q6H PRN PRN Reason: Nausea/Vomiting Last Admin: 10/10/17 21:10 Dose: 4 mg Polyethylene Glycol (Miralax) 17 gm PO BID PRN PRN Reason: Constipation Last Admin: 10/07/17 10:14 Dose: 17 gm Rosuvastatin Calcium (Crestor) 5 mg NG HS [facility] Last Admin: 10/17/17 22:00 Dose: Not Given Saccharomyces Boulardii (Florastor) 250 mg NG BID [facility] Last Admin: 10/17/17 17:55 Dose: Not Given Vitamin A (Vitamin A & D Oint Ud Foilpak) 0.5 ea TOP Q4 [facility] Last Admin: 10/18/17 08:26 Dose: 0.5 ea - Labs Labs: 10/18/17 06:25 10/18/17 06:23 PT 14.3 SECONDS (9.7-12.2) H 10/17/17 22:24 INR 1.2 10/17/17 22:24 APTT 27 SECONDS (21-34) 10/17/17 22:24 - Constitutional Appears: Chronically Ill - Head Exam Head Exam: NORMAL INSPECTION - Eye Exam Eye Exam: EOMI - ENT Exam ENT Exam: Mucous Membranes Dry - Respiratory Exam Respiratory Exam: Decreased Breath Sounds, Rales - Cardiovascular Exam Cardiovascular Exam: REGULAR RHYTHM, +S1, +S2 - GI/Abdominal Exam GI & Abdominal Exam: Soft, Normal Bowel Sounds. absent: Distended, Firm, Guarding, Rigid, Rebound Additional comments: alirio midline: clean/dry/intact - Extremities Exam Extremities Exam: absent: Pedal Edema, Tenderness - Neurological Exam Neurological Exam: Alert, Awake, Oriented x3 - Skin Skin Exam: Dry, Normal Color, Warm Assessment and Plan - Assessment and Plan (Free Text) Assessment: 1.Bowel Ischemia Abdominal Pain Abdominal Aorta Aneurysm * General surgery: Dr. Hinton on consult-->given LLQ abdominal pain * 10/08/17: Exploratory laparotomy, small bowel resection and primary anastomosis. EBL: 100; No Drains * Vascular surgery consult: Dr. Inman to follow for evaluation--> given aborminal aorta focal contained dissection * GI, Dr. Boland group reconsulted given rectal bleeding * CT Dissection protocol (10/04/17): No evidence of thoracic aortic aneurysm, dissection, or rupture. No acute pulmonary embolism, Hepatic cysts, further findings available in the report including. Focal aneurysmal dilatation of infrarenal abdominal aorta measuring 2.6cm * Meropenem 1gram IVPB Q 8H (10/07/17) * Flagyl 500mg IVPB Q8H (active since 10/07/17) * CT abdomen/pelvis PO (10/07/17); Small bowel pneumatosis and portal venous gas concerning for bowel ischemia and necrosis. Multiple liver cysts. Nonobstructing calcifications in the left kidney. 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 In addition to the possible partial obstruction, there is prominent wall and fold enhancement of multiple small bowel loops suggesting enteritis. * 10/17: Hemoglobin did drop today; require 2 units of PRBC and black tarry stool observed both in NGT as well as naturally. * 10/18: patient had additional 2 episodes of black tarry stool; hgb improved to 11.3 post 2 units but dropped again to 10.7; GI has evaluated patient for endoscopic procedure; awaiting cardiac clearance requested by GI 2. Chest Pain New LBBB History of Coronary Artery Disease History of CABG History of Diabetes Lipid Disorder History of Hypertension History of Severe Aortic Stenosis History of Pacemaker; prior Sick Sinus syndrome New Onset Atrial Fibrillation * Cardiology (Dr. Mckeon) on board-->help appreciated * Cardiac cath (10/06/17) completed; discussed with Dr. Mckeon including RCA occlusion about 50%-->will need intervention in future * Echocardiogram (10/06/17): left ventricular function is normal, left ventricular ejection fraction is within the normal range. No regional wall motion abnormalities noted. Left atrium is mildly dilated. Mild to Moderate valvular aortic stenosis. Calculated aortic valve area is 1.1cm squared. Donna regurgitation is mild to moderate. * Prior cardiac workup: * Holter in 2017 showed NSR with max HR 121, SVT at HR of 146 and rare VPC, isolated APC. * Cardiac Cath in 2014 showed distal main coronary artery 70-80% concentric stenosis mid LAD 70-80% stenosis, RCA 20-30% non-obstructing stenosis, and large diagonal branch 85% proximal stenosis. with LVEF of 60%. Basal inferior wall akinetic. * revious ECHO showed borderline concentric LVH with grade I abnormal relaxation pattern, severe aortic stenosis, mild mitral regurg, and mild to moderate pulmonic regurg. LVEF was 60-65%. History of pacemaker placement per chart review. * CT Dissection protocol (10/04/17): No evidence of thoracic aortic aneurysm, dissection, or rupture. No acute pulmonary embolism, Hepatic cysts, further findings available in the report inclduing Focal aneurysmal dilatation of infrarenal abdominal aorta measuring 2.6cm * Elevated probnp: 1580 * CARLYN: 7 * T, cholestrol: 159, LDL: 91, HDL: 41 * [id number]: 7.1 * [employer]aker was interrogated by [employer] and it was deemed to be working properly * Patient had episodes of tachycardia 10/10/17 and 10/11/17 and was placed on Cardizem Drip 10 mg/hour and Lopressor 5 mg IV Q6H which were discontinued on . * Code blue 10/17/17; intubated and ROSC achieved, on IV fluid, Levofed, off PO cardiazem-->resident on cardiology and surgery are aware--> cardiology to follow with EP-Cardiology in regards to pacemaker * 10/18: patient had additional 2 episodes of black tarry stool; hgb improved to 11.3 post 2 units but dropped again to 10.7; GI has evaluated patient for endoscopic procedure; awaiting cardiac clearance requested by GI Current Cardiac Meds: * Eliquis 5 mg PO 2x/day started 10/13/17 and was PUT ON HOLD due to Bright Red Blood Per Rectum on 10/15/17 * Aspirin 81 mg NG 1x/day PUT ON HOLD due to Bright Red Blood Per Rectum on 10/15 * Black tarry stool observed today 10/17/17 with drop in hemoglobin * Amiodarone 400 mg started PO 2x/day off 10/17/17 * Diltiazem 90 mg PO Q6H on hold 10/17/17 * Crestor 5mg NG QHS * Cozaar 100 mg NG 1x/day on hold 3. Sepsis Urinary Tract Infection Bandemia * Infectious Disease (Dr. Lawson) on the case-->help appreciated * Code sepsis 10/07/17 * Blood cultures (10/06/17): Negative at 5 days * Blood cultures (10/07/17): Negative at 5 days * F/U Repeat Blood Culture 10/15/17 ordered for elevated WBC of 25 * : no growth after 24hours * White count has lowered * Procalcitonin has improved * Urine culture (10/07/17): Klebsiella Pneumoanie-->sensitive to Meropenem * Repeat Urine Culture (10/11/17): NO GROWTH * Stool Culture (10/07/17): Negative * Ova and Parasite (10/07/17): No ova and parasite * F/U repeat Stool Studies 10/12/17 that were ordered secondary to abundant diarrhea * Meropenem 1gram IVPB Q 8H (10/07/17- active) * Flagyl 500mg IVPB Q8H (10/07/17- active) * Lactic acid: 2.4 (10/05/17)-->1.8 (10/06/17)-->4.1 (10/07/17)-->2.6 (10/08/17)--> 2.2 (10/08/17) * Has Renee in place * Ordered for C. dif from 10/17 pending * occult blood ffrom 10/17 pending 4. Melena Bright Red Blood Per Rectum * 2 episodes of bright red blood per rectum on 10/15/17. * Black tarry stool observed 10/17/17 both fecal matter as well as NGT tube * See findings of CT Angiogram Abdomen/Pelvis in Assessment and Plan #1 above * She received 1 unit PRBC 10/15/17 night and 2 more units of PRBC 10/17/17 * HgB/Hct has dropped 7.4 latest requiring blood transfusion-->11.3 * Hgb dropped to 10.7 this morning. * Chemical anticoagulation on hold since 10/15/18 * GI considering endoscopic evaluation pending cardiac clearance 5. History of Chronic Constipation History of Liver cysts * GI (Dr. Boland) on case-->had signed off previously; reconsulted given rectal bleeding * Given patient is asymptomatic and appearance of lesions on imaging consistent with cystic disease, no further workup is indicated at this time. If patient becomes symptomatic, there is consideration for surgical intervention. * Maintain bowel regimen to prevent constipation * Suggest additional outpatient follow up and age appropriate screening colonoscopy if patient willing to undergo procedure. No further planned GI intervention * Hepatitis panel: negative * Please see #1 for further details. * Liver functions tests elevated in light of code blue 10/17/17 6. History of Hypothyroidism * TSH: 2.92; Free T4: 1.49 * Thyroid studies elevated * Off amiodarone 10/17/17 * Synthroid 50mcg PO daily 7. History of Breast Cancer * Patient history of lumpectomy * She is being following serially * Patient is not on any chemotherapeutic agent 8. History of HTN * Losartan and Diltiazem as above 9. History of HLD * Restarted Crestor 10/12/17 10. History of DM * Novolin R SC Q6H Sliding Scale 11. Episode of Confusion * This apparently occurred on night of 10/15/17: secondary to sundowning? * Patient is AAOx3 at the time of my exam * CT Head did not show any bleed or evidence of CVA 12. Prophylactic care * Anticoagulation was held given melena 10/07/17 but she was started on Heparin Drip 10/09/17 secondary to fear of showering emboli: monitor HgB/Hct which has been stable since the start of the Heparin Drip. The Heparin Drip was discontinued and Eliquis 5 mg PO Q12H was started 10/13/17 and then discontinued on 10/15/17 secondary to bright red blood per rectum on 10/15/17 * Palliative Care consult given patient wanted to discuss code status initially during hospitalization * Florastor 250 mg NG 2x/day * Zofran 4 mg IV Q6H PRN N/V * Protonix 40 mg IV BID * On pressor 10/17 * Reintubated 10/17 10/17: Son Theodore updated at bedside. Code blue this afternoon, reintubated, epi, bicarbonate, and CPR, ROSC achieved. Following ROSC, patient able to follow directions Responds to name and able to move arms when directed. 2 units of PRBC ordered. On pressor. Off amiodarone. 10/18: On pressor, Hgb dropped to 10.7, has had more episodes of black tarry stool. GI considering endoscopic evaluation pending cardiac clearance. DIscussed with GI fellow who has spoken with Dr. mckeon, cardiology.
[2017-10-18] MEDS: Pantoprazole 80 MG in Sodium Chloride 0.9% 100 ML IV SCH ×3 (09:46→20:48)
[2017-10-18] MEDS: Saccharomyces Boulardi 250 mg Cap NG SCH ×2 (09:51→17:12)
--- NOTE | 2017-10-18 10:40 | CP.PCM.PN ---
Subjective - Date & Time of Evaluation Date of Evaluation: 10/18/17 Time of Evaluation: 07:30 - Subjective Subjective: General Surgery Pt S&E, Intubated yesterday evening. there was concern for PE and a GI bleed. Currently pt is requesting tube removal and received 2 units overnight. Objective - Vital Signs/Intake and Output Vital Signs (last 24 hours): Temp Pulse Resp BP Pulse Ox 98.6 F 89 14 137/58 L 100 10/18/17 08:00 10/18/17 08:24 10/18/17 08:24 10/18/17 08:24 10/18/17 08:24 Intake and Output: 10/18/17 10/18/17 06:59 18:59 Intake Total 1642.8 156.8 Output Total 665 40 Balance 977.8 116.8 - Medications Medications: Current Medications Acetaminophen (Tylenol 325mg Tab) 650 mg PO Q6 PRN PRN Reason: Fever >100.4 F Albuterol/Ipratropium (Duoneb 3 Mg/0.5 Mg (3 Ml) Ud) 3 ml INH RQ6 [facility] Last Admin: 10/18/17 07:16 Dose: 3 ml Diltiazem HCl (Cardizem) 90 mg PO Q6 TIM Last Admin: 10/18/17 06:32 Dose: Not Given Hydromorphone HCl (Dilaudid) 1 mg IVP Q4H PRN PRN Reason: Anxiety Metronidazole (Flagyl) 500 mg in 100 mls @ 100 mls/hr IVPB Q8 [facility] Last Admin: 10/18/17 06:00 Dose: 100 mls/hr Meropenem 1 gm/ Sodium (Chloride) 100 mls @ 100 mls/hr IVPB Q8H [facility] Last Admin: 10/18/17 06:30 Dose: 100 mls/hr Dextrose/Sodium Chloride (Dextrose 5%/0.9% Ns 1000 Ml) 1,000 mls @ 30 mls/hr IV .Q24H [facility] Last Admin: 10/17/17 11:10 Dose: 30 mls/hr Norepinephrine Bitartrate 8 mg (/ Sodium Chloride) 258 mls @ 7.74 mls/hr IV .Q24H PRN; Protocol; 4 MCG/MIN PRN Reason: TITRATE PER MD ORDER Last Titration: 10/18/17 09:26 Dose: 8 mcg/min, 15.48 mls/hr Pantoprazole Sodium 80 mg/ (Sodium Chloride) 100 mls @ 10 mls/hr IV .Q10H [facility] PRN Reason: 8 MG/HR Last Admin: 10/18/17 09:46 Dose: 10 mls/hr Insulin Human Regular (Novolin R) 0 unit SC Q6H TIM PRN Reason: Protocol Last Admin: 10/18/17 06:00 Dose: Not Given Levothyroxine Sodium (Synthroid) 50 mcg PO DAILY@0630 [facility] Last Admin: 10/18/17 06:44 Dose: Not Given Lorazepam (Ativan) 2 mg IVP Q6H PRN PRN Reason: Anxiety Losartan Potassium (Cozaar) 100 mg PO DAILY [facility] Last Admin: 10/18/17 09:51 Dose: 100 mg Mupirocin (Bactroban Ointment) 0 gm TOP BID [facility] Last Admin: 10/18/17 09:47 Dose: 1 gm Ondansetron HCl (Zofran Inj) 4 mg IVP Q6H PRN PRN Reason: Nausea/Vomiting Last Admin: 10/10/17 21:10 Dose: 4 mg Polyethylene Glycol (Miralax) 17 gm PO BID PRN PRN Reason: Constipation Last Admin: 10/07/17 10:14 Dose: 17 gm Rosuvastatin Calcium (Crestor) 5 mg NG HS [facility] Last Admin: 10/17/17 22:00 Dose: Not Given Saccharomyces Boulardii (Florastor) 250 mg NG BID [facility] Last Admin: 10/18/17 09:51 Dose: 250 mg Vitamin A (Vitamin A & D Oint Ud Foilpak) 0.5 ea TOP Q4 [facility] Last Admin: 10/18/17 08:26 Dose: 0.5 ea - Labs Labs: 10/18/17 06:25 10/18/17 06:23 PT 14.3 SECONDS (9.7-12.2) H 10/17/17 22:24 INR 1.2 10/17/17 22:24 APTT 27 SECONDS (21-34) 10/17/17 22:24 - Constitutional Appears: Non-toxic, No Acute Distress - Head Exam Head Exam: ATRAUMATIC, NORMOCEPHALIC - Eye Exam Eye Exam: EOMI. absent: Scleral icterus - ENT Exam Additional comments: ETT in place - Respiratory Exam Respiratory Exam: NORMAL BREATHING PATTERN (on vent). absent: Respiratory Distress - GI/Abdominal Exam GI & Abdominal Exam: Soft. absent: Distended, Firm, Guarding, Rigid, Tenderness - Neurological Exam Neurological Exam: Alert, Awake - Skin Skin Exam: Dry, Warm Assessment and Plan - Assessment and Plan (Free Text) Assessment: 77F s/p ex-lap with small bowel resection POD#10 Plan: F/U GI recs Wean vent as tolerated Management as per ICU D/W Dr Jamaal Salazar PGY4
[2017-10-18] MEDS: Dextrose 5%/0.9% NS 1,000 ML IV SCH (11:03)
--- NOTE | 2017-10-18 11:11 | PN ---
DATE: 10/18/2017 TIME OF EVALUATION: 7:10 a.m. NEUROLOGICAL PROBLEM: Metabolic encephalopathy superimposed with hypoperfusion syndrome. PHYSICAL EXAMINATION: VITAL SIGNS: Blood pressure 134/42, mean arterial pressure of 73, pulse rate 89, with ventricular tachycardia, respirations 18 on the vent. ASSESSMENT AND PLAN: have code dafne was called in yesterday with unresponsiveness and the lack of pulse. The patient was intubated with resuscitation. She did have CT angiogram yesterday, which was ruled out PE. The patient also has had evidence of dark tarry stool as well as through NG tube on intermittent suction. At present, the patient is easily arousable on tactile stimuli, eyes are open, communicable, moves all 4 extremities. Good corneal reflex. Good extraocular movements. Gag intact on manipulating the endotracheal tube. Deep tendon reflexes are absent. Plantars are mute. From neurological point of view, the patient is stable, communicable even though she is intubated and she had significant problem happened yesterday. The patient is stable from neurological point of view, keep the mean arterial pressure on around 90 to 100, keep the head in elevation. Continue the present management. The patient will be followed closely with you. Stiven Mazariegos MD
--- NOTE | 2017-10-18 12:01 | CP.PCM.PN ---
<Maynor Jon - Last Filed: 10/18/17 11:53> Subjective - Date & Time of Evaluation Date of Evaluation: 10/18/17 Time of Evaluation: 11:53 - Subjective Subjective: Cardiology progress note for Dr. Childs - Maynor Jon DO PGY - 1 Patient was seen and examined at bedside. Per nursing, chart review, and discussion with Dr. Royal, made aware of the code blue called on patient yesterday. Aware that GI wants to take patient to endoscopy, please see assessment and plan. Patient herself is resting in bed and intubated with mitts on. Patient expresses that she is thirsty and very upset that she is intubated. Right now she is feeling less short of breath, and denies chest pain. Patient states she feels better after 2 units of blood yesterday. RN Tech Ms. Britt will wet her mouth for some relief with ice chips. No further complaints at this time. Objective - Vital Signs/Intake and Output Vital Signs (last 24 hours): Temp Pulse Resp BP Pulse Ox 98.6 F 100 H 16 138/60 99 10/18/17 08:00 10/18/17 10:24 10/18/17 10:24 10/18/17 10:24 10/18/17 10:24 Intake and Output: 10/18/17 10/18/17 06:59 18:59 Intake Total 1642.8 171.8 Output Total 665 40 Balance 977.8 131.8 - Medications Medications: Current Medications Acetaminophen (Tylenol 325mg Tab) 650 mg PO Q6 PRN PRN Reason: Fever >100.4 F Albuterol/Ipratropium (Duoneb 3 Mg/0.5 Mg (3 Ml) Ud) 3 ml INH RQ6 [facility] Last Admin: 10/18/17 07:16 Dose: 3 ml Diltiazem HCl (Cardizem) 90 mg PO Q6 TIM Last Admin: 10/18/17 06:32 Dose: Not Given Hydromorphone HCl (Dilaudid) 1 mg IVP Q4H PRN PRN Reason: Anxiety Metronidazole (Flagyl) 500 mg in 100 mls @ 100 mls/hr IVPB Q8 TIM Last Admin: 10/18/17 06:00 Dose: 100 mls/hr Meropenem 1 gm/ Sodium (Chloride) 100 mls @ 100 mls/hr IVPB Q8H [facility] Last Admin: 10/18/17 06:30 Dose: 100 mls/hr Dextrose/Sodium Chloride (Dextrose 5%/0.9% Ns 1000 Ml) 1,000 mls @ 30 mls/hr IV .Q24H [facility] Last Admin: 10/18/17 11:03 Dose: 30 mls/hr Norepinephrine Bitartrate 8 mg (/ Sodium Chloride) 258 mls @ 7.74 mls/hr IV .Q24H PRN; Protocol; 4 MCG/MIN PRN Reason: TITRATE PER MD ORDER Last Titration: 10/18/17 10:40 Dose: 6 mcg/min, 11.61 mls/hr Pantoprazole Sodium 80 mg/ (Sodium Chloride) 100 mls @ 10 mls/hr IV .Q10H [facility] PRN Reason: 8 MG/HR Last Admin: 10/18/17 09:46 Dose: 10 mls/hr Insulin Human Regular (Novolin R) 0 unit SC Q6H [facility] PRN Reason: Protocol Last Admin: 10/18/17 06:00 Dose: Not Given Levothyroxine Sodium (Synthroid) 50 mcg PO DAILY@0630 [facility] Last Admin: 10/18/17 06:44 Dose: Not Given Lorazepam (Ativan) 2 mg IVP Q6H PRN PRN Reason: Anxiety Losartan Potassium (Cozaar) 100 mg PO DAILY [facility] Last Admin: 10/18/17 09:51 Dose: 100 mg Mupirocin (Bactroban Ointment) 0 gm TOP BID [facility] Last Admin: 10/18/17 09:47 Dose: 1 gm Ondansetron HCl (Zofran Inj) 4 mg IVP Q6H PRN PRN Reason: Nausea/Vomiting Last Admin: 10/10/17 21:10 Dose: 4 mg Polyethylene Glycol (Miralax) 17 gm PO BID PRN PRN Reason: Constipation Last Admin: 10/07/17 10:14 Dose: 17 gm Rosuvastatin Calcium (Crestor) 5 mg NG HS [facility] Last Admin: 10/17/17 22:00 Dose: Not Given Saccharomyces Boulardii (Florastor) 250 mg NG BID [facility] Last Admin: 10/18/17 09:51 Dose: 250 mg Vitamin A (Vitamin A & D Oint Ud Foilpak) 0.5 ea TOP Q4 TIM Last Admin: 10/18/17 08:26 Dose: 0.5 ea - Labs Labs: 10/18/17 06:25 10/18/17 06:23 PT 14.3 SECONDS (9.7-12.2) H 10/17/17 22:24 INR 1.2 10/17/17 22:24 APTT 27 SECONDS (21-34) 10/17/17 22:24 - Additional Findings Additional findings: Physical Exam: Vital Signs as below Const'l: +Patient intubated, oriented x 3, dyspnea, is upset about her present condition Head/Neck: neck supple, no jvd, trachea midline, carotid midline, no cervical/head mass Eyes: pupils equally reactive to light and accommodation, nonicteric sclera, extraocular intact ENT: auditory acuity grossly intact, throat not congested, no nasal deformity Cardio: +Regular rhythm; +scar on chest wall on left and right sides, regular rate, regular rhythm, no murmurs rubs gallops, no carotid bruit, normal s1, s2 Pulm: no accessory muscle use, equal normal breath sounds bilaterally, clear to ausculation bilaterally Abd: +Abdominal incision site is clean, dry, intact; +obesity limiting exam, +slightly diminished bowel sounds in lower quadrants - resolved; soft non tender non-distended, no palpable masses Derm: no rashes, no ulcers, no lesions Extr: no edema, no cyanosis, no calf tenderness, no lesions, no varicosities Neuro: cranial nerves II-XII grossly intact, upper extremity and lower extremity 5/5 muscle strength bilaterally, no loss of sensation in upper extremities, lower extremities bilaterally and core Assessment and Plan - Assessment and Plan (Free Text) Assessment: Acute Assessments and Plan: 77 year old female with extensive cardiac history and chest pain on this admission Cath on this admission showed further RCA stenosis at about 50%. SUMMERS to LAD patent, but large diagonal and obtuse marginal no longer patent. Please see operative note for further information. Patient had a code blue yesterday, 10/17/17 for pulselessness and respiratory distress. Patient was brought to [facility] with Bicarb and epi. Patient had another episode of dark, tarry stools yesterday, from a cardiology standpoint she can proceed to endoscopy with moderate risk. New-Onset Atrial Fibrillation - Resolved - Pacemaker interrogated by quality assurance representative from [employer]. Patient's Pacemaker is functioning appropriately, is trying to compensate for patient's irregular rhythm - Rate control: Metoprolol 5 q6 - Rhythm management: Diltiazem and Amiodarone *Patient LFT's are fine and no signs of pulmonary fibrosis. However, her TSH is above normal limits. At this time, proceed to endoscopy and will consider effect of amiodarone after the endoscopy - Latest EKG shows Sinus Tachy with PVC's. On exam, patient HR is NSR with HR of 80s-90s - Anticoagulation - Eliquis 5 BID on hold secondary to GI bleed Acute GI Bleed - Hold Eliquis - SBO on Abdomen Angiogram - GI on consult - Dr. Boland - endoscopy today 2/2 black, tarry stools and hemoglobin drop yesterday - Mgmt per primary, surgery, and GI Dyspnea, likely 2/2 to anemia - Patient given 2 units of blood yesterday, feels better now - Intubated with 80% FiO2 Ischemic Bowel s/p 2 ft of small bowel resection - Heparin drip - Management per ICU and Surgery Prophylactic Measures - GI PPX: Protonix 40mg PO daily - DVT PPX: Hold 2/2 acute GI bleed as above Dispo: Patient can proceed for endoscopy with moderate risk. Need to follow up with TFT's due to patient being started on amiodarone. Assessment and Plan History: Holter in 2017 showed NSR with max HR 121, SVT at HR of 146 and rare VPC, isolated APC. Cardiac Cath in 2014 showed distal main coronary artery 70-80% concentric stenosis mid LAD 70-80% stenosis, RCA 20-30% non-obstructing stenosis , and large diagonal branch 85% proximal stenosis. with LVEF of 60%. Basal inferior wall akinetic. Previous ECHO showed borderline concentric LVH with grade I abnormal relaxation pattern, severe aortic stenosis, mild mitral regurg , and mild to moderate pulmonic regurg. LVEF was 60-65%. History of pacemaker placement per chart review. Chest Pain, ACS ruled out, likely 2/2 New LBBB - EK, and LBBB not found on previous EKG's in system - Troponin X 1 at .0230, X2 at .0220; baseline is <.0120; CK-MB 1.87-1.85 - BNP elevated at 1580, past BNP's 799-955, with one at 1930 in 2013. - TSH, T4, Lipids - wnl - Mg/Phos:1.3/3.4 - CT Chest with IV: No aneurysm, no dissection, no PE - Follow up Troponins, EKGs - ECHO ordered, Nitro given, ASA 81 daily, Cozaar daily, Norvasc daily, Crestor daily New Left Bundle Branch Block - Patient already has a pacemaker placed (LBBB could be 2/2 to pacing) - Serial JOANNA panel, Serial EKGs, as above - Patient cardiac cath today, Results are: Briefly, LAD to SUMMERS is patent, but other graft is gone. There actually is no jump graft RCA is now 50% stenosed, moreso than last cath Please see operative note for further details CAD s/p CABG (2012) - Crestor, Cozaar, ASA daily HTN - Norvasc 5mg PO daily, Cozaar 100mg PO daily HLD - Crestor 5mg PO QHS (patient's home medication is lipitor) DM - HGA1C: 7.1 (09/2017), Held home medication: Metformin - Carb Consistent Diet, Accuchecks, RISS - Mod Hyperkalemia - Per primary team Elevated T. Bili - Per primary team Transaminitis - Per primary team Hypothyroidism - Per primary team History of Breast Cancer - Per primary team <Babak Childs - Last Filed: 10/18/17 12:25> Objective - Vital Signs/Intake and Output Vital Signs (last 24 hours): Temp Pulse Resp BP Pulse Ox 98.6 F 100 H 16 138/60 99 10/18/17 08:00 10/18/17 10:24 10/18/17 10:24 10/18/17 10:24 10/18/17 10:24 Intake and Output: 10/18/17 10/18/17 06:59 18:59 Intake Total 1642.8 181.8 Output Total 665 40 Balance 977.8 141.8 - Medications Medications: Current Medications Acetaminophen (Tylenol 325mg Tab) 650 mg PO Q6 PRN PRN Reason: Fever >100.4 F Albuterol/Ipratropium (Duoneb 3 Mg/0.5 Mg (3 Ml) Ud) 3 ml INH RQ6 TIM Last Admin: 10/18/17 07:16 Dose: 3 ml Diltiazem HCl (Cardizem) 90 mg PO Q6 [facility] Last Admin: 10/18/17 12:15 Dose: Not Given Hydromorphone HCl (Dilaudid) 1 mg IVP Q4H PRN PRN Reason: Anxiety Metronidazole (Flagyl) 500 mg in 100 mls @ 100 mls/hr IVPB Q8 [facility] Last Admin: 10/18/17 06:00 Dose: 100 mls/hr Meropenem 1 gm/ Sodium (Chloride) 100 mls @ 100 mls/hr IVPB Q8H [facility] Last Admin: 10/18/17 06:30 Dose: 100 mls/hr Dextrose/Sodium Chloride (Dextrose 5%/0.9% Ns 1000 Ml) 1,000 mls @ 30 mls/hr IV .Q24H [facility] Last Admin: 10/18/17 11:03 Dose: 30 mls/hr Norepinephrine Bitartrate 8 mg (/ Sodium Chloride) 258 mls @ 7.74 mls/hr IV .Q24H PRN; Protocol; 4 MCG/MIN PRN Reason: TITRATE PER MD ORDER Last Titration: 10/18/17 11:59 Dose: 4 mcg/min, 7.74 mls/hr Pantoprazole Sodium 80 mg/ (Sodium Chloride) 100 mls @ 10 mls/hr IV .Q10H [facility] PRN Reason: 8 MG/HR Last Admin: 10/18/17 09:46 Dose: 10 mls/hr Insulin Human Regular (Novolin R) 0 unit SC Q6H [facility] PRN Reason: Protocol Last Admin: 10/18/17 12:02 Dose: Not Given Levothyroxine Sodium (Synthroid) 50 mcg PO DAILY@0630 [facility] Last Admin: 10/18/17 06:44 Dose: Not Given Lorazepam (Ativan) 2 mg IVP Q6H PRN PRN Reason: Anxiety Losartan Potassium (Cozaar) 100 mg PO DAILY [facility] Last Admin: 10/18/17 09:51 Dose: 100 mg Metoprolol Succinate (Toprol Xl) 50 mg PO DAILY [facility] Mupirocin (Bactroban Ointment) 0 gm TOP BID [facility] Last Admin: 10/18/17 09:47 Dose: 1 gm Ondansetron HCl (Zofran Inj) 4 mg IVP Q6H PRN PRN Reason: Nausea/Vomiting Last Admin: 10/10/17 21:10 Dose: 4 mg Polyethylene Glycol (Miralax) 17 gm PO BID PRN PRN Reason: Constipation Last Admin: 10/07/17 10:14 Dose: 17 gm Rosuvastatin Calcium (Crestor) 5 mg NG HS TIM Last Admin: 10/17/17 22:00 Dose: Not Given Saccharomyces Boulardii (Florastor) 250 mg NG BID TIM Last Admin: 10/18/17 09:51 Dose: 250 mg Vitamin A (Vitamin A & D Oint Ud Foilpak) 0.5 ea TOP Q4 TIM Last Admin: 10/18/17 12:09 Dose: 0.5 ea - Labs Labs: 10/18/17 06:25 10/18/17 06:23 PT 14.3 SECONDS (9.7-12.2) H 10/17/17 22:24 INR 1.2 10/17/17 22:24 APTT 27 SECONDS (21-34) 10/17/17 22:24 Assessment and Plan (1) Chest discomfort Status: Acute (2) Chest pain Status: Acute (3) Hypertension Status: Acute Attending/Attestation - Attestation I have personally seen and examined this patient.: Yes I have fully participated in the care of the patient.: Yes I have reviewed all pertinent clinical information, including history, physical exam and plan: Yes Notes (Text): 10/18/17 12:25 pulseless arrest overnight possibly 2' to drop in hgb for LGIB As per ACC/AHA guidelines can proceed with planned endoscopy with moderate risk for perioperative event with BB
[2017-10-18] MEDS ORDERED: Metoprolol Succinate 50 mg XL Tab PO SCH (12:15)
[2017-10-18] MEDS ORDERED: Propofol 10 mg/ml Inj (20 ML) ONE (12:58)
[2017-10-18] MEDS ORDERED: Esmolol 100 mg/10ml Inj IV ONE (12:58)
[2017-10-18] MEDS ORDERED: Midazolam 2 MG/2 ML VIAL ONE (12:58)
--- NOTE | 2017-10-18 16:24 | CP.PCM.PN ---
Subjective - Date & Time of Evaluation Date of Evaluation: 10/18/17 Time of Evaluation: 16:23 - Subjective Subjective: imaging findings reviewed with Dr Galvez yesterday he does not view the findings as requiring traditional angio Objective - Vital Signs/Intake and Output Vital Signs (last 24 hours): Temp Pulse Resp BP Pulse Ox 98.7 F 106 H 17 101/40 L 100 10/18/17 16:00 10/18/17 15:27 10/18/17 15:27 10/18/17 15:27 10/18/17 15:27 Intake and Output: 10/18/17 10/18/17 06:59 18:59 Intake Total 1642.8 904.7 Output Total 665 520 Balance 977.8 384.7 - Medications Medications: Current Medications Acetaminophen (Tylenol 325mg Tab) 650 mg PO Q6 PRN PRN Reason: Fever >100.4 F Albuterol/Ipratropium (Duoneb 3 Mg/0.5 Mg (3 Ml) Ud) 3 ml INH RQ6 [facility] Last Admin: 10/18/17 13:02 Dose: Not Given Diltiazem HCl (Cardizem) 90 mg PO Q6 TIM Last Admin: 10/18/17 12:15 Dose: Not Given Hydromorphone HCl (Dilaudid) 1 mg IVP Q4H PRN PRN Reason: Anxiety Metronidazole (Flagyl) 500 mg in 100 mls @ 100 mls/hr IVPB Q8 [facility] Last Admin: 10/18/17 15:06 Dose: 100 mls/hr Meropenem 1 gm/ Sodium (Chloride) 100 mls @ 100 mls/hr IVPB Q8H [facility] Last Admin: 10/18/17 15:07 Dose: 100 mls/hr Dextrose/Sodium Chloride (Dextrose 5%/0.9% Ns 1000 Ml) 1,000 mls @ 30 mls/hr IV .Q24H [facility] Last Admin: 10/18/17 11:03 Dose: 30 mls/hr Norepinephrine Bitartrate 8 mg (/ Sodium Chloride) 258 mls @ 7.74 mls/hr IV .Q24H PRN; Protocol; 4 MCG/MIN PRN Reason: TITRATE PER MD ORDER Last Titration: 10/18/17 14:30 Dose: 0 mcg/min, 0 mls/hr Pantoprazole Sodium 80 mg/ (Sodium Chloride) 100 mls @ 10 mls/hr IV .Q10H [facility] PRN Reason: 8 MG/HR Last Admin: 10/18/17 09:46 Dose: 10 mls/hr Insulin Human Regular (Novolin R) 0 unit SC Q6H TIM PRN Reason: Protocol Last Admin: 10/18/17 12:02 Dose: Not Given Levothyroxine Sodium (Synthroid) 50 mcg PO DAILY@0630 [facility] Last Admin: 10/18/17 06:44 Dose: Not Given Lorazepam (Ativan) 2 mg IVP Q6H PRN PRN Reason: Anxiety Losartan Potassium (Cozaar) 100 mg PO DAILY [facility] Last Admin: 10/18/17 09:51 Dose: 100 mg Metoprolol Succinate (Toprol Xl) 50 mg PO DAILY [facility] Last Admin: 10/18/17 13:10 Dose: Not Given Mupirocin (Bactroban Ointment) 0 gm TOP BID [facility] Last Admin: 10/18/17 09:47 Dose: 1 gm Ondansetron HCl (Zofran Inj) 4 mg IVP Q6H PRN PRN Reason: Nausea/Vomiting Last Admin: 10/10/17 21:10 Dose: 4 mg Polyethylene Glycol (Miralax) 17 gm PO BID PRN PRN Reason: Constipation Last Admin: 10/07/17 10:14 Dose: 17 gm Rosuvastatin Calcium (Crestor) 5 mg NG HS [facility] Last Admin: 10/17/17 22:00 Dose: Not Given Saccharomyces Boulardii (Florastor) 250 mg NG BID [facility] Last Admin: 10/18/17 09:51 Dose: 250 mg Vitamin A (Vitamin A & D Oint Ud Foilpak) 0.5 ea TOP Q4 [facility] Last Admin: 10/18/17 15:16 Dose: 0.5 ea - Labs Labs: 10/18/17 06:25 10/18/17 06:23 PT 14.3 SECONDS (9.7-12.2) H 10/17/17 22:24 INR 1.2 10/17/17 22:24 APTT 27 SECONDS (21-34) 10/17/17 22:24
[2017-10-18] MEDS ORDERED: Sodium Chloride 0.9% 1,000 ML IV ONE (16:58)
[2017-10-19] MEDS: (Novolin R) Insulin Human Regular 100 units/ml vial SC SCH ×4 (00:25→18:26)
[2017-10-19] MEDS: Vitamins A & D Oint UD Foilpak TOP SCH ×6 (00:27→20:36)
[2017-10-19] MEDS: Albuterol-Ipratrop 3 mg / 0.5 (3 ml) UD INH SCH ×4 (01:52→19:38)
[2017-10-19 05:21] LABS: ARTERIAL BLOOD GAS HCO3 26.8 mmol/L (21-28); ARTERIAL BLOOD GAS HEMOGLOBIN 10.6 g/dL (11.7-17.4); ARTERIAL BLOOD GAS O2 SAT 98.4 % (95-98); ARTERIAL BLOOD GAS PCO2 37 mm/Hg (35-45); ARTERIAL BLOOD GAS PH 7.46 (7.35-7.45); ARTERIAL BLOOD GAS PO2 126 mm/Hg (80-100); ARTERIAL BLOOD GAS TCO2 27.4 mmol/L (22-28)
[2017-10-19 06:26] LABS: BASO % 0.3 % (0.0-2.0); EOS # 0.4 K/uL (0.0-0.7); EOS % 3.4 % (0.0-4.0); HEMOGLOBIN 10.5 g/dL (11.0-16.0); LYMPH # 1.4 K/uL (1.0-4.3); LYMPH % 13.3 % (20.0-40.0); MEAN CELL VOLUME 89.2 fL (81.0-99.0); MEAN CORPUSCULAR HEMOGLOBIN 31.1 pg (27.0-31.0); MEAN CORPUSCULAR HGB CONC 34.8 g/dL (33.0-37.0); MEAN PLATELET VOLUME 9.1 fL (7.2-11.7); MONO # 1.1 K/uL (0.0-0.8); MONO % 10.5 % (0.0-10.0); NEUT # 7.5 K/uL (1.8-7.0); NEUT % 72.5 % (50.0-75.0); RBC 3.38 Mil/uL (3.80-5.20); RED CELL DISTRIBUTION WIDTH 15.4 % (11.5-14.5); WHITE BLOOD COUNT 10.3 K/uL (4.8-10.8)
[2017-10-19] MEDS: metroNIDAZOLE IV 500 mg/100 ml 500 MG/100 ML BAG IVPB SCH ×3 (06:27→21:09)
[2017-10-19] MEDS: Meropenem 1 GM in Sodium Chloride 0.9% 100 ML IVPB SCH ×3 (06:27→21:40)
[2017-10-19] MEDS: Pantoprazole 80 MG in Sodium Chloride 0.9% 100 ML IV SCH ×4 (06:30→20:40)
[2017-10-19 07:00] LABS: ALB/GLOB RATIO 0.8 (1.0-2.1); ALBUMIN 2.2 g/dL (3.5-5.0); ALT/SGPT 58 U/L (9-52); AST/SGOT 51 U/L (14-36); BLOOD UREA NITROGEN 27 mg/dL (7-17); CALCIUM 8.2 mg/dl (8.6-10.4); GFR AFRICAN-AMERICAN > 60; GFR NON-AFRICAN AMERICAN 54; MAGNESIUM 1.9 mg/dL (1.6-2.3)
[2017-10-19] MEDS: Levothyroxine 50 MCG TAB PO SCH (07:00)
[2017-10-19] MEDS ORDERED: Potassium Phosphate 15 MMOLE in Sodium Chloride 0.9% 100 ML IV ONE (07:30)
--- NOTE | 2017-10-19 08:39 | CP.PCM.PN ---
<Maynor Jon - Last Filed: 10/19/17 09:03> Subjective - Date & Time of Evaluation Date of Evaluation: 10/19/17 Time of Evaluation: 08:40 - Subjective Subjective: Cardiology progress note for Dr. Childs - Maynor Jon DO PGY - 1 Patient seen and examined at bedside, intubated. Per chart review, patient had one episode of black, tarry stools overnight. Patient is otherwise doing well right now, is still upset to be intubated, and motions to me that her mouth is dry. Nursing is providing ice chips and wet sponge to alleviate discomfort. Patient does not have any further complaints. Objective - Vital Signs/Intake and Output Vital Signs (last 24 hours): Temp Pulse Resp BP Pulse Ox 99 F 116 H 14 102/40 L 98 10/19/17 04:00 10/19/17 07:00 10/19/17 07:00 10/19/17 06:26 10/19/17 07:00 Intake and Output: 10/19/17 10/19/17 06:59 18:59 Intake Total 1127.3 102.6 Output Total 985 215 Balance 142.3 -112.4 - Medications Medications: Current Medications Acetaminophen (Tylenol 325mg Tab) 650 mg PO Q6 PRN PRN Reason: Fever >100.4 F Albuterol/Ipratropium (Duoneb 3 Mg/0.5 Mg (3 Ml) Ud) 3 ml INH RQ6 TIM Last Admin: 10/19/17 07:44 Dose: 3 ml Diltiazem HCl (Cardizem) 90 mg PO Q6 TIM Last Admin: 10/19/17 06:26 Dose: 90 mg Hydromorphone HCl (Dilaudid) 1 mg IVP Q4H PRN PRN Reason: Anxiety Last Admin: 10/18/17 22:30 Dose: 1 mg Metronidazole (Flagyl) 500 mg in 100 mls @ 100 mls/hr IVPB Q8 TIM Last Admin: 10/19/17 06:27 Dose: 100 mls/hr Meropenem 1 gm/ Sodium (Chloride) 100 mls @ 100 mls/hr IVPB Q8H TIM Last Admin: 10/19/17 06:27 Dose: 100 mls/hr Dextrose/Sodium Chloride (Dextrose 5%/0.9% Ns 1000 Ml) 1,000 mls @ 30 mls/hr IV .Q24H [facility] Last Admin: 10/18/17 11:03 Dose: 30 mls/hr Norepinephrine Bitartrate 8 mg (/ Sodium Chloride) 258 mls @ 7.74 mls/hr IV .Q24H PRN; Protocol; 4 MCG/MIN PRN Reason: TITRATE PER MD ORDER Last Titration: 10/18/17 19:05 Dose: 6 mcg/min, 11.61 mls/hr Pantoprazole Sodium 80 mg/ (Sodium Chloride) 100 mls @ 10 mls/hr IV .Q10H TIM PRN Reason: 8 MG/HR Last Admin: 10/19/17 06:32 Dose: 10 mls/hr Potassium Phosphate 15 mmole/ (Sodium Chloride) 105 mls @ 52.5 mls/hr IV ONCE ONE Stop: 10/19/17 09:29 Last Admin: 10/19/17 08:09 Dose: 52.5 mls/hr Insulin Human Regular (Novolin R) 0 unit SC Q6H TIM PRN Reason: Protocol Last Admin: 10/19/17 06:29 Dose: Not Given Levothyroxine Sodium (Synthroid) 50 mcg PO DAILY@0630 [facility] Last Admin: 10/19/17 07:00 Dose: 50 mcg Lorazepam (Ativan) 2 mg IVP Q6H PRN PRN Reason: Anxiety Losartan Potassium (Cozaar) 100 mg PO DAILY [facility] Last Admin: 10/18/17 09:51 Dose: 100 mg Metoprolol Succinate (Toprol Xl) 50 mg PO DAILY [facility] Last Admin: 10/18/17 13:10 Dose: Not Given Mupirocin (Bactroban Ointment) 0 gm TOP BID [facility] Last Admin: 10/18/17 18:53 Dose: 1 gm Ondansetron HCl (Zofran Inj) 4 mg IVP Q6H PRN PRN Reason: Nausea/Vomiting Last Admin: 10/10/17 21:10 Dose: 4 mg Polyethylene Glycol (Miralax) 17 gm PO BID PRN PRN Reason: Constipation Last Admin: 10/07/17 10:14 Dose: 17 gm Rosuvastatin Calcium (Crestor) 5 mg NG HS [facility] Last Admin: 10/18/17 22:29 Dose: 5 mg Saccharomyces Boulardii (Florastor) 250 mg NG BID [facility] Last Admin: 10/18/17 17:12 Dose: Not Given Vitamin A (Vitamin A & D Oint Ud Foilpak) 0.5 ea TOP Q4 [facility] Last Admin: 10/19/17 04:40 Dose: 0.5 ea - Labs Labs: 10/19/17 06:18 10/19/17 06:19 PT 14.3 SECONDS (9.7-12.2) H 10/17/17 22:24 INR 1.2 10/17/17 22:24 APTT 27 SECONDS (21-34) 10/17/17 22:24 - Additional Findings Additional findings: Physical Exam: Vital Signs as below Const'l: +Patient intubated, oriented x 3, dyspnea, is upset about her present condition Head/Neck: neck supple, no jvd, trachea midline, carotid midline, no cervical/head mass Eyes: pupils equally reactive to light and accommodation, nonicteric sclera, extraocular intact ENT: auditory acuity grossly intact, throat not congested, no nasal deformity Cardio: +Regular rhythm; +scar on chest wall on left and right sides, regular rate, regular rhythm, no murmurs rubs gallops, no carotid bruit, normal s1, s2 Pulm: no accessory muscle use, equal normal breath sounds bilaterally, clear to ausculation bilaterally Abd: +Abdominal incision site is clean, dry, intact; +obesity limiting exam, +slightly diminished bowel sounds in lower quadrants - resolved; soft non tender non-distended, no palpable masses Derm: no rashes, no ulcers, no lesions Extr: no edema, no cyanosis, no calf tenderness, no lesions, no varicosities Neuro: cranial nerves II-XII grossly intact, upper extremity and lower extremity 5/5 muscle strength bilaterally, no loss of sensation in upper extremities, lower extremities bilaterally and core Assessment and Plan - Assessment and Plan (Free Text) Assessment: For Assessment and Plan history, please see note from 10/18, at the bottom in italics. Acute Assessments and Plan: 77 year old female with extensive cardiac history presented with chest pain on this admission, ACS ruled out, Cath performed. Patient also had new onset atrial fibrillation which has now resolved with diltiazem, amiodarone, and metoprolol. Patient had a code blue on 01/29/18 for pulselessness and respiratory distress. Patient was brought to ROSC with Bicarb and Epi. Diminished pulse and dyspnea are likely 2/2 GI bleed, as patient has had black, tarry stools for a couple of days. Eliquis on hold, Dr. Boland has performed EGD - please see findings in his note. 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 Patient's Pacemaker is functioning appropriately, is trying to compensate for patient's irregular rhythm - Rate control: Metoprolol 5 q6 - Rhythm management: Diltiazem and Amiodarone *Patient LFT's are fine and no signs of pulmonary fibrosis. However, her TSH is above normal limits. Observe. - Latest EKG shows Sinus Tachy with PVC's. On exam, patient HR is NSR with HR of 80s-90s - Anticoagulation - Eliquis 5 BID on hold secondary to GI bleed Blood Loss Anemia 2/2 Acute GI Bleed - Hold Eliquis - GI on consult - Dr. Boland - endoscopy yesterday with cardiac risk assessment of moderate per AHA/ACC guidelines - Mgmt per primary, surgery, and GI Dyspnea, likely 2/2 to Blood Loss Anemia - Patient given 2 units of blood yesterday, feels better now - Rest of management per ICU and GI Ischemic Bowel s/p 2 ft of small bowel resection - Heparin drip - Management per ICU and Surgery Hypernatremia likely 2/2 hypodipsia - Trending upward - patient has not had any PO intake, and is subjectively very thirsty - Per ICU management - consider light hydration - I ordered urine osm, serum osm Prophylactic Measures - GI PPX: Protonix 40mg PO daily - DVT PPX: Hold 2/2 acute GI bleed as above Dispo: Need to follow up with TFT's due to patient being started on amiodarone - for now, will observe patient <Babak Childs - Last Filed: 10/19/17 22:32> Objective - Vital Signs/Intake and Output Vital Signs (last 24 hours): Temp Pulse Resp BP Pulse Ox 98.4 F 122 H 22 108/87 98 10/19/17 20:00 10/19/17 22:00 10/19/17 22:00 10/19/17 22:00 10/19/17 22:00 Intake and Output: 10/19/17 10/20/17 18:59 06:59 Intake Total 1413.4 70 Output Total 925 80 Balance 488.4 -10 - Medications Medications: Current Medications Acetaminophen (Tylenol 325mg Tab) 650 mg PO Q6 PRN PRN Reason: Fever >100.4 F Albuterol/Ipratropium (Duoneb 3 Mg/0.5 Mg (3 Ml) Ud) 3 ml INH RQ6 [facility] Last Admin: 10/19/17 19:38 Dose: 3 ml Diltiazem HCl (Cardizem) 60 mg PO Q6 [facility] Last Admin: 10/19/17 18:40 Dose: Not Given Hydromorphone HCl (Dilaudid) 1 mg IVP Q4H PRN PRN Reason: Anxiety Last Admin: 10/18/17 22:30 Dose: 1 mg Metronidazole (Flagyl) 500 mg in 100 mls @ 100 mls/hr IVPB Q8 [facility] Last Admin: 10/19/17 21:09 Dose: 100 mls/hr Meropenem 1 gm/ Sodium (Chloride) 100 mls @ 100 mls/hr IVPB Q8H [facility] Last Admin: 10/19/17 21:40 Dose: 100 mls/hr Norepinephrine Bitartrate 8 mg (/ Sodium Chloride) 258 mls @ 7.74 mls/hr IV .Q24H PRN; Protocol; 4 MCG/MIN PRN Reason: TITRATE PER MD ORDER Last Titration: 10/19/17 15:05 Dose: 0 mcg/min, 0 mls/hr Pantoprazole Sodium 80 mg/ (Sodium Chloride) 100 mls @ 10 mls/hr IV .Q10H [facility] PRN Reason: 8 MG/HR Last Admin: 10/19/17 20:40 Dose: 10 mls/hr Insulin Human Regular (Novolin R) 0 unit SC Q6H [facility] PRN Reason: Protocol Levothyroxine Sodium (Synthroid) 50 mcg PO DAILY@0630 [facility] Last Admin: 10/19/17 07:00 Dose: 50 mcg Lorazepam (Ativan) 2 mg IVP Q6H PRN PRN Reason: Anxiety Losartan Potassium (Cozaar) 100 mg PO DAILY [facility] Last Admin: 10/19/17 09:22 Dose: 100 mg Metoprolol Tartrate (Lopressor) 25 mg PO BID [facility] Last Admin: 10/19/17 18:40 Dose: Not Given Mupirocin (Bactroban Ointment) 0 gm TOP BID TIM Last Admin: 10/19/17 18:36 Dose: 1 gm Ondansetron HCl (Zofran Inj) 4 mg IVP Q6H PRN PRN Reason: Nausea/Vomiting Last Admin: 10/10/17 21:10 Dose: 4 mg Polyethylene Glycol (Miralax) 17 gm PO BID PRN PRN Reason: Constipation Last Admin: 10/07/17 10:14 Dose: 17 gm Rosuvastatin Calcium (Crestor) 5 mg NG HS [facility] Last Admin: 10/19/17 21:17 Dose: 5 mg Saccharomyces Boulardii (Florastor) 250 mg NG BID [facility] Last Admin: 10/19/17 18:35 Dose: 250 mg Vitamin A (Vitamin A & D Oint Ud Foilpak) 0.5 ea TOP Q4 [facility] Last Admin: 10/19/17 20:36 Dose: 0.5 ea - Labs Labs: 10/19/17 06:18 10/19/17 06:19 PT 14.3 SECONDS (9.7-12.2) H 10/17/17 22:24 INR 1.2 10/17/17 22:24 APTT 27 SECONDS (21-34) 10/17/17 22:24 Assessment and Plan (1) Chest discomfort Status: Acute (2) Chest pain Status: Acute (3) Hypertension Status: Acute Attending/Attestation - Attestation I have personally seen and examined this patient.: Yes I have fully participated in the care of the patient.: Yes I have reviewed all pertinent clinical information, including history, physical exam and plan: Yes
--- NOTE | 2017-10-19 08:51 | RAD ---
HISTORY: sob COMPARISON: 10/18/2017 FINDINGS: LUNGS: No active pulmonary disease. PLEURA: No significant pleural effusion identified, no pneumothorax apparent. CARDIOVASCULAR: CABG. Normal heart size. ET tube, NG tube, left IJ central venous catheter, unchanged. Permanent pacemaker noted. OSSEOUS STRUCTURES: No significant abnormalities. VISUALIZED UPPER ABDOMEN: Normal. OTHER FINDINGS: None. IMPRESSION: No active disease.
--- NOTE | 2017-10-19 09:10 | CP.PCM.PN ---
Subjective - Date & Time of Evaluation Date of Evaluation: 10/19/17 Time of Evaluation: 09:00 - Subjective Subjective: Medical Attending Note Patient seen and examined this morning. Patient is awake and alert. Patient denies any pain. Patient would like to eat and drink water but remains intubated. Discussed with Rn, patient has had one episode of black tarry stool last night. Objective - Vital Signs/Intake and Output Vital Signs (last 24 hours): Temp Pulse Resp BP Pulse Ox 97.6 F 112 H 17 124/58 L 99 10/19/17 08:00 10/19/17 08:26 10/19/17 08:26 10/19/17 08:26 10/19/17 08:26 Intake and Output: 10/19/17 10/19/17 06:59 18:59 Intake Total 1127.3 102.6 Output Total 985 215 Balance 142.3 -112.4 - Medications Medications: Current Medications Acetaminophen (Tylenol 325mg Tab) 650 mg PO Q6 PRN PRN Reason: Fever >100.4 F Albuterol/Ipratropium (Duoneb 3 Mg/0.5 Mg (3 Ml) Ud) 3 ml INH RQ6 [facility] Last Admin: 10/19/17 07:44 Dose: 3 ml Diltiazem HCl (Cardizem) 90 mg PO Q6 [facility] Last Admin: 10/19/17 06:26 Dose: 90 mg Hydromorphone HCl (Dilaudid) 1 mg IVP Q4H PRN PRN Reason: Anxiety Last Admin: 10/18/17 22:30 Dose: 1 mg Metronidazole (Flagyl) 500 mg in 100 mls @ 100 mls/hr IVPB Q8 [facility] Last Admin: 10/19/17 06:27 Dose: 100 mls/hr Meropenem 1 gm/ Sodium (Chloride) 100 mls @ 100 mls/hr IVPB Q8H [facility] Last Admin: 10/19/17 06:27 Dose: 100 mls/hr Dextrose/Sodium Chloride (Dextrose 5%/0.9% Ns 1000 Ml) 1,000 mls @ 30 mls/hr IV .Q24H [facility] Last Admin: 10/18/17 11:03 Dose: 30 mls/hr Norepinephrine Bitartrate 8 mg (/ Sodium Chloride) 258 mls @ 7.74 mls/hr IV .Q24H PRN; Protocol; 4 MCG/MIN PRN Reason: TITRATE PER MD ORDER Last Titration: 10/18/17 19:05 Dose: 6 mcg/min, 11.61 mls/hr Pantoprazole Sodium 80 mg/ (Sodium Chloride) 100 mls @ 10 mls/hr IV .Q10H TIM PRN Reason: 8 MG/HR Last Admin: 10/19/17 06:32 Dose: 10 mls/hr Potassium Phosphate 15 mmole/ (Sodium Chloride) 105 mls @ 52.5 mls/hr IV ONCE ONE Stop: 10/19/17 09:29 Last Admin: 10/19/17 08:09 Dose: 52.5 mls/hr Sodium Chloride (Sodium Chloride 0.9%) 1,000 mls @ 42 mls/hr IV .[id number] [facility] Insulin Human Regular (Novolin R) 0 unit SC Q6H [facility] PRN Reason: Protocol Last Admin: 10/19/17 06:29 Dose: Not Given Levothyroxine Sodium (Synthroid) 50 mcg PO DAILY@0630 [facility] Last Admin: 10/19/17 07:00 Dose: 50 mcg Lorazepam (Ativan) 2 mg IVP Q6H PRN PRN Reason: Anxiety Losartan Potassium (Cozaar) 100 mg PO DAILY [facility] Last Admin: 10/18/17 09:51 Dose: 100 mg Metoprolol Succinate (Toprol Xl) 50 mg PO DAILY [facility] Last Admin: 10/18/17 13:10 Dose: Not Given Mupirocin (Bactroban Ointment) 0 gm TOP BID [facility] Last Admin: 10/18/17 18:53 Dose: 1 gm Ondansetron HCl (Zofran Inj) 4 mg IVP Q6H PRN PRN Reason: Nausea/Vomiting Last Admin: 10/10/17 21:10 Dose: 4 mg Polyethylene Glycol (Miralax) 17 gm PO BID PRN PRN Reason: Constipation Last Admin: 10/07/17 10:14 Dose: 17 gm Rosuvastatin Calcium (Crestor) 5 mg NG HS [facility] Last Admin: 10/18/17 22:29 Dose: 5 mg Saccharomyces Boulardii (Florastor) 250 mg NG BID [facility] Last Admin: 10/18/17 17:12 Dose: Not Given Vitamin A (Vitamin A & D Oint Ud Foilpak) 0.5 ea TOP Q4 TIM Last Admin: 10/19/17 04:40 Dose: 0.5 ea - Labs Labs: 10/19/17 06:18 10/19/17 06:19 PT 14.3 SECONDS (9.7-12.2) H 10/17/17 22:24 INR 1.2 10/17/17 22:24 APTT 27 SECONDS (21-34) 10/17/17 22:24 - Constitutional Appears: Chronically Ill - Head Exam Head Exam: NORMAL INSPECTION - Eye Exam Eye Exam: EOMI - ENT Exam ENT Exam: Mucous Membranes Moist - Respiratory Exam Respiratory Exam: Decreased Breath Sounds, Rales Additional comments: intubated on vent - Cardiovascular Exam Cardiovascular Exam: REGULAR RHYTHM, +S1, +S2 - GI/Abdominal Exam GI & Abdominal Exam: Soft, Normal Bowel Sounds. absent: Distended, Firm, Guarding, Rigid, Tenderness, Rebound Additional comments: midline surgical incision: clean/dry/intact - Extremities Exam Extremities Exam: absent: Pedal Edema, Tenderness - Neurological Exam Neurological Exam: Alert, Awake, Oriented x3 - Skin Skin Exam: Dry, Normal Color, Warm Attending/Attestation - Attestation I have personally seen and examined this patient.: Yes I have fully participated in the care of the patient.: Yes I have reviewed all pertinent clinical information, including history, physical exam and plan: Yes Notes (Text): 1.Bowel Ischemia Abdominal Pain Abdominal Aorta Aneurysm * General surgery: Dr. Hinton on consult-->given LLQ abdominal pain * 10/08/17: Exploratory laparotomy, small bowel resection and primary anastomosis. EBL: 100; No Drains * Vascular surgery consult: Dr. Inman to follow for evaluation--> given aborminal aorta focal contained dissection * GI, Dr. Boland group reconsulted given rectal bleeding * CT Dissection protocol (10/04/17): No evidence of thoracic aortic aneurysm, dissection, or rupture. No acute pulmonary embolism, Hepatic cysts, further findings available in the report including. Focal aneurysmal dilatation of infrarenal abdominal aorta measuring 2.6cm * Meropenem 1gram IVPB Q 8H (10/07/17) * Flagyl 500mg IVPB Q8H (active since 10/07/17) * CT abdomen/pelvis PO (10/07/17); Small bowel pneumatosis and portal venous gas concerning for bowel ischemia and necrosis. Multiple liver cysts. Nonobstructing calcifications in the left kidney. 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 In addition to the possible partial obstruction, there is prominent wall and fold enhancement of multiple small bowel loops suggesting enteritis. * 10/17: Hemoglobin did drop today; require 2 units of PRBC and black tarry stool observed both in NGT as well as naturally. * 10/18: patient had additional 2 episodes of black tarry stool; hgb improved to 11.3 post 2 units but dropped again to 10.7; GI has evaluated patient for endoscopic procedure; awaiting cardiac clearance requested by GI * 10/19: POD 1 Endoscopy: Esophageal ulcer, Z-line regular, normal stomach, erythematous duodenopathy, enterostomy, friable mucosa, inflammation and ulceration, no ulcer--c/w IV PP and monitor H/H 2. Chest Pain New LBBB History of Coronary Artery Disease History of CABG History of Diabetes Lipid Disorder History of Hypertension History of Severe Aortic Stenosis History of Pacemaker; prior Sick Sinus syndrome New Onset Atrial Fibrillation * Cardiology (Dr. Mckeon) on board-->help appreciated * Cardiac cath (10/06/17) completed; discussed with Dr. Mckeon including RCA occlusion about 50%-->will need intervention in future * Echocardiogram (10/06/17): left ventricular function is normal, left ventricular ejection fraction is within the normal range. No regional wall motion abnormalities noted. Left atrium is mildly dilated. Mild to Moderate valvular aortic stenosis. Calculated aortic valve area is 1.1cm squared. Donna regurgitation is mild to moderate. * Prior cardiac workup: * Holter in 2017 showed NSR with max HR 121, SVT at HR of 146 and rare VPC, isolated APC. * Cardiac Cath in 2014 showed distal main coronary artery 70-80% concentric stenosis mid LAD 70-80% stenosis, RCA 20-30% non-obstructing stenosis, and large diagonal branch 85% proximal stenosis. with LVEF of 60%. Basal inferior wall akinetic. * revious ECHO showed borderline concentric LVH with grade I abnormal relaxation pattern, severe aortic stenosis, mild mitral regurg, and mild to moderate pulmonic regurg. LVEF was 60-65%. History of pacemaker placement per chart review. * CT Dissection protocol (10/04/17): No evidence of thoracic aortic aneurysm, dissection, or rupture. No acute pulmonary embolism, Hepatic cysts, further findings available in the report inclduing Focal aneurysmal dilatation of infrarenal abdominal aorta measuring 2.6cm * Elevated probnp: 1580 * CARLYN: 7 * T, cholestrol: 159, LDL: 91, HDL: 41 * [id number]: 7.1 * PaceMaker was interrogated by [employer] and it was deemed to be working properly * Patient had episodes of tachycardia 10/10/17 and 10/11/17 and was placed on Cardizem Drip 10 mg/hour and Lopressor 5 mg IV Q6H which were discontinued on . * Code blue 10/17/17; intubated and ROSC achieved, on IV fluid, Levofed, off PO cardiazem-->resident on cardiology and surgery are aware--> cardiology to follow with EP-Cardiology in regards to pacemaker * 10/18: patient had additional 2 episodes of black tarry stool; hgb improved to 11.3 post 2 units but dropped again to 10.7; GI has evaluated patient for endoscopic procedure; awaiting cardiac clearance requested by GI Current Cardiac Meds: * Eliquis 5 mg PO 2x/day started 10/13/17 and was PUT ON HOLD due to Bright Red Blood Per Rectum on 10/15/17 * Aspirin 81 mg NG 1x/day PUT ON HOLD due to Bright Red Blood Per Rectum on 10/15 * Black tarry stool observed today 10/17/17 with drop in hemoglobin * Amiodarone 400 mg started PO 2x/day off 10/17/17 * Diltiazem 90 mg PO Q6H on hold 10/17/17 * Crestor 5mg NG QHS * Cozaar 100 mg NG 1x/day on hold 3. Sepsis Urinary Tract Infection Bandemia * Infectious Disease (Dr. Lawson) on the case-->help appreciated * Code sepsis 10/07/17 * Blood cultures (10/06/17): Negative at 5 days * Blood cultures (10/07/17): Negative at 5 days * F/U Repeat Blood Culture 10/15/17 ordered for elevated WBC of 25 * : no growth after 48hours X2 * White count normalized * Procalcitonin has improved * Urine culture (10/07/17): Klebsiella Pneumoanie-->sensitive to Meropenem * Repeat Urine Culture (10/11/17): NO GROWTH * Stool Culture (10/07/17): Negative * Ova and Parasite (10/07/17): No ova and parasite * Pending sputum culture (10/18/17) * Meropenem 1gram IVPB Q 8H (10/07/17- active) * Flagyl 500mg IVPB Q8H (10/07/17- active) * Lactic acid: 2.4 (10/05/17)-->1.8 (10/06/17)-->4.1 (10/07/17)-->2.6 (10/08/17)--> 2.2 (10/08/17) * Has Renee in place * C. dif Negative X2 * occult blood ffrom 10/17 Positive 4. Melena Bright Red Blood Per Rectum * 2 episodes of bright red blood per rectum on 10/15/17. * Black tarry stool observed 10/17/17 both fecal matter as well as NGT tube * See findings of CT Angiogram Abdomen/Pelvis in Assessment and Plan #1 above * She received 1 unit PRBC 10/15/17 night and 2 more units of PRBC 10/17/17 * HgB/Hct has dropped 7.4 latest requiring blood transfusion-->11.3 * Hgb dropped to 10.7 this morning. * Chemical anticoagulation on hold since 10/15/18 * Endoscopy (10/18/17): Esophageal ulcer, Z-line regular, normal stomach, erythematous duodenopathy, enterostomy, friable mucosa, inflammation and ulceration, no ulcer--c/w IV PP and monitor H/H 5. History of Chronic Constipation History of Liver cysts * GI (Dr. Boland) on case-->had signed off previously; reconsulted given rectal bleeding * Given patient is asymptomatic and appearance of lesions on imaging consistent with cystic disease, no further workup is indicated at this time. If patient becomes symptomatic, there is consideration for surgical intervention. * Maintain bowel regimen to prevent constipation * Suggest additional outpatient follow up and age appropriate screening colonoscopy if patient willing to undergo procedure. No further planned GI intervention * Hepatitis panel: negative * Please see #1 for further details. * Liver functions tests elevated in light of code blue 10/17/17 6. History of Hypothyroidism * TSH: 2.92; Free T4: 1.49 * Thyroid studies elevated * Off amiodarone 10/17/17 * Synthroid 50mcg PO daily 7. History of Breast Cancer * Patient history of lumpectomy * She is being following serially * Patient is not on any chemotherapeutic agent 8. History of HTN * Losartan and Diltiazem as above 9. History of HLD * Restarted Crestor 10/12/17 10. History of DM * Novolin R SC Q6H Sliding Scale 11. Episode of Confusion * This apparently occurred on night of 10/15/17: secondary to owning? * Patient is AAOx3 at the time of my exam * CT Head did not show any bleed or evidence of CVA 12. Prophylactic care * Anticoagulation was held given melena 10/07/17 but she was started on Heparin Drip 10/09/17 secondary to fear of showering emboli: monitor HgB/Hct which has been stable since the start of the Heparin Drip. The Heparin Drip was discontinued and Eliquis 5 mg PO Q12H was started 10/13/17 and then discontinued on 10/15/17 secondary to bright red blood per rectum on 10/15/17 * Palliative Care consult given patient wanted to discuss code status initially during hospitalization * Florastor 250 mg NG 2x/day * Zofran 4 mg IV Q6H PRN N/V * Protonix 40 mg IV BID * On pressor 10/17 * Reintubated 10/17 10/17: Son Theodore updated at bedside. Code blue this afternoon, reintubated, epi, bicarbonate, and CPR, ROSC achieved. Following ROSC, patient able to follow directions Responds to name and able to move arms when directed. 2 units of PRBC ordered. On pressor. Off amiodarone. 10/18: On pressor, Hgb dropped to 10.7, has had more episodes of black tarry stool. GI considering endoscopic evaluation pending cardiac clearance. DIscussed with GI fellow who has spoken with Dr. mckeon, cardiology. 10/19: Had episode of black tarry stool; on pressor, on protonix drip
[2017-10-19] MEDS ORDERED: Sodium Chloride 0.9% 1,000 ML IV SCH (09:15)
[2017-10-19] MEDS: Saccharomyces Boulardi 250 mg Cap NG SCH ×2 (09:22→18:35)
--- NOTE | 2017-10-19 10:06 | CP.PCM.PN ---
<BienvenidoJane - Last Filed: 10/19/17 10:12> Subjective - Date & Time of Evaluation Date of Evaluation: 10/19/17 Time of Evaluation: 06:15 - Subjective Subjective: GI Fellow PGY4 Progress Note Pt seen and evaluated at bedside, per nursing and documentation of one moderate tarry black stool overnight. Pt is on Levophed at 6mcg and still intubated. Pt NPO on PPI drip. ROS: A 12pt ROS was unable to be obtained as pt is intubated. Objective - Vital Signs/Intake and Output Vital Signs (last 24 hours): Temp Pulse Resp BP Pulse Ox 97.6 F 116 H 19 114/51 L 100 10/19/17 08:00 10/19/17 09:26 10/19/17 09:26 10/19/17 09:26 10/19/17 09:26 Intake and Output: 10/19/17 10/19/17 06:59 18:59 Intake Total 1127.3 220.6 Output Total 985 215 Balance 142.3 5.6 - Medications Medications: Current Medications Acetaminophen (Tylenol 325mg Tab) 650 mg PO Q6 PRN PRN Reason: Fever >100.4 F Albuterol/Ipratropium (Duoneb 3 Mg/0.5 Mg (3 Ml) Ud) 3 ml INH RQ6 [facility] Last Admin: 10/19/17 07:44 Dose: 3 ml Diltiazem HCl (Cardizem) 90 mg PO Q6 [facility] Last Admin: 10/19/17 06:26 Dose: 90 mg Hydromorphone HCl (Dilaudid) 1 mg IVP Q4H PRN PRN Reason: Anxiety Last Admin: 10/18/17 22:30 Dose: 1 mg Metronidazole (Flagyl) 500 mg in 100 mls @ 100 mls/hr IVPB Q8 [facility] Last Admin: 10/19/17 06:27 Dose: 100 mls/hr Meropenem 1 gm/ Sodium (Chloride) 100 mls @ 100 mls/hr IVPB Q8H [facility] Last Admin: 10/19/17 06:27 Dose: 100 mls/hr Dextrose/Sodium Chloride (Dextrose 5%/0.9% Ns 1000 Ml) 1,000 mls @ 30 mls/hr IV .Q24H [facility] Last Admin: 10/18/17 11:03 Dose: 30 mls/hr Norepinephrine Bitartrate 8 mg (/ Sodium Chloride) 258 mls @ 7.74 mls/hr IV .Q24H PRN; Protocol; 4 MCG/MIN PRN Reason: TITRATE PER MD ORDER Last Titration: 10/19/17 09:33 Dose: 4 mcg/min, 7.74 mls/hr Pantoprazole Sodium 80 mg/ (Sodium Chloride) 100 mls @ 10 mls/hr IV .Q10H [facility] PRN Reason: 8 MG/HR Last Admin: 10/19/17 06:32 Dose: 10 mls/hr Sodium Chloride (Sodium Chloride 0.9%) 1,000 mls @ 42 mls/hr IV .[id number] [facility] Insulin Human Regular (Novolin R) 0 unit SC Q6H [facility] PRN Reason: Protocol Last Admin: 10/19/17 06:29 Dose: Not Given Levothyroxine Sodium (Synthroid) 50 mcg PO DAILY@0630 [facility] Last Admin: 10/19/17 07:00 Dose: 50 mcg Lorazepam (Ativan) 2 mg IVP Q6H PRN PRN Reason: Anxiety Losartan Potassium (Cozaar) 100 mg PO DAILY [facility] Last Admin: 10/19/17 09:22 Dose: 100 mg Metoprolol Succinate (Toprol Xl) 50 mg PO DAILY [facility] Last Admin: 10/18/17 13:10 Dose: Not Given Mupirocin (Bactroban Ointment) 0 gm TOP BID [facility] Last Admin: 10/19/17 09:22 Dose: 1 gm Ondansetron HCl (Zofran Inj) 4 mg IVP Q6H PRN PRN Reason: Nausea/Vomiting Last Admin: 10/10/17 21:10 Dose: 4 mg Polyethylene Glycol (Miralax) 17 gm PO BID PRN PRN Reason: Constipation Last Admin: 10/07/17 10:14 Dose: 17 gm Rosuvastatin Calcium (Crestor) 5 mg NG HS [facility] Last Admin: 10/18/17 22:29 Dose: 5 mg Saccharomyces Boulardii (Florastor) 250 mg NG BID [facility] Last Admin: 10/19/17 09:22 Dose: 250 mg Vitamin A (Vitamin A & D Oint Ud Foilpak) 0.5 ea TOP Q4 [facility] Last Admin: 10/19/17 09:23 Dose: 0.5 ea - Labs Labs: 10/19/17 06:18 10/19/17 06:19 PT 14.3 SECONDS (9.7-12.2) H 10/17/17 22:24 INR 1.2 10/17/17 22:24 APTT 27 SECONDS (21-34) 10/17/17 22:24 - Constitutional Appears: Non-toxic, No Acute Distress, Chronically Ill - Head Exam Head Exam: ATRAUMATIC, NORMAL INSPECTION, NORMOCEPHALIC - Eye Exam Eye Exam: EOMI, Normal appearance, PERRL Pupil Exam: PERRL - ENT Exam ENT Exam: Mucous Membranes Dry Additional comments: ETT - Respiratory Exam Respiratory Exam: Rhonchi, Respiratory Distress - Cardiovascular Exam Cardiovascular Exam: Tachycardia, Irregular Rhythm - GI/Abdominal Exam GI & Abdominal Exam: Distended, Soft, Normal Bowel Sounds. absent: Guarding, Tenderness, Organomegaly - Rectal Exam Rectal Exam: Deferred - Extremities Exam Extremities Exam: Normal Inspection - Neurological Exam Neurological Exam: Alert, Awake - Psychiatric Exam Psychiatric exam: Anxious - Skin Skin Exam: Dry, Intact, Normal Color, Warm Assessment and Plan - Assessment and Plan (Free Text) Assessment: This is a 77 year old female with history of HTN, DM, CAD/CABG, breast cancer, hypothyroidism, aortic stenosis, bradycardia/SSS s/p PPM who was admitted to hospital for evaluation of chest pain and vomiting. 1. Upper GI Bleeding-Melena 2. Esophageal, Duodenal, Jejumun ulcerations 3. Cardiac Arrest 2. NSTEMI s/p cardiac cath RCA 50% stenosis 3. Small bowel ischmeic, necrosis s/p small bowel resection and primary anastamosis POD#9 4. Hepatic cysts 5. VDRF 6. UTI Plan: -Continue supportive care with respiratory status -s/p EGD with ulcerations and adherent clot but no active bleeding so no intervention -Hgb stable, continue to monitor -Continue IV PPI drip can change to bid -Continue to titrate off Levophed to prevent ischemic ulcerations -Continue to hold OAC and antiplatelet therapy -NPO, if extubated can start clear liquid diet, avoid NGT due to ulcerations and trauma -Continue IV abx for UTI, ID following -Small bowel ischemia s/p resection POD#9, surgery following -CAD with cardiology following, will need to discuss restarting OAC and anti- platelet therapy -Hepatic cysts are benign, no hemangioma on imaging with no concern for bleeding -Will continue to follow closely <Bronson Biswas - Last Filed: 10/19/17 13:55> Objective - Vital Signs/Intake and Output Vital Signs (last 24 hours): Temp Pulse Resp BP Pulse Ox 98.7 F 96 H 24 117/32 L 100 10/19/17 12:00 10/19/17 13:27 10/19/17 13:27 10/19/17 13:27 10/19/17 13:27 Intake and Output: 10/19/17 10/19/17 06:59 18:59 Intake Total 1127.3 352.4 Output Total 985 365 Balance 142.3 -12.6 - Medications Medications: Current Medications Acetaminophen (Tylenol 325mg Tab) 650 mg PO Q6 PRN PRN Reason: Fever >100.4 F Albuterol/Ipratropium (Duoneb 3 Mg/0.5 Mg (3 Ml) Ud) 3 ml INH RQ6 [facility] Last Admin: 10/19/17 13:36 Dose: 3 ml Diltiazem HCl (Cardizem) 60 mg PO Q6 [facility] Last Admin: 10/19/17 11:17 Dose: 60 mg Hydromorphone HCl (Dilaudid) 1 mg IVP Q4H PRN PRN Reason: Anxiety Last Admin: 10/18/17 22:30 Dose: 1 mg Metronidazole (Flagyl) 500 mg in 100 mls @ 100 mls/hr IVPB Q8 [facility] Last Admin: 10/19/17 06:27 Dose: 100 mls/hr Meropenem 1 gm/ Sodium (Chloride) 100 mls @ 100 mls/hr IVPB Q8H [facility] Last Admin: 10/19/17 06:27 Dose: 100 mls/hr Norepinephrine Bitartrate 8 mg (/ Sodium Chloride) 258 mls @ 7.74 mls/hr IV .Q24H PRN; Protocol; 4 MCG/MIN PRN Reason: TITRATE PER MD ORDER Last Titration: 10/19/17 09:33 Dose: 4 mcg/min, 7.74 mls/hr Pantoprazole Sodium 80 mg/ (Sodium Chloride) 100 mls @ 10 mls/hr IV .Q10H [facility] PRN Reason: 8 MG/HR Last Admin: 10/19/17 06:32 Dose: 10 mls/hr Insulin Human Regular (Novolin R) 0 unit SC Q6H [facility] PRN Reason: Protocol Last Admin: 10/19/17 12:47 Dose: Not Given Levothyroxine Sodium (Synthroid) 50 mcg PO DAILY@0630 [facility] Last Admin: 10/19/17 07:00 Dose: 50 mcg Lorazepam (Ativan) 2 mg IVP Q6H PRN PRN Reason: Anxiety Losartan Potassium (Cozaar) 100 mg PO DAILY [facility] Last Admin: 10/19/17 09:22 Dose: 100 mg Metoprolol Tartrate (Lopressor) 25 mg PO BID [facility] Last Admin: 10/19/17 11:17 Dose: 25 mg Mupirocin (Bactroban Ointment) 0 gm TOP BID [facility] Last Admin: 10/19/17 09:22 Dose: 1 gm Ondansetron HCl (Zofran Inj) 4 mg IVP Q6H PRN PRN Reason: Nausea/Vomiting Last Admin: 10/10/17 21:10 Dose: 4 mg Polyethylene Glycol (Miralax) 17 gm PO BID PRN PRN Reason: Constipation Last Admin: 10/07/17 10:14 Dose: 17 gm Rosuvastatin Calcium (Crestor) 5 mg NG HS [facility] Last Admin: 10/18/17 22:29 Dose: 5 mg Saccharomyces Boulardii (Florastor) 250 mg NG BID [facility] Last Admin: 10/19/17 09:22 Dose: 250 mg Vitamin A (Vitamin A & D Oint Ud Foilpak) 0.5 ea TOP Q4 [facility] Last Admin: 10/19/17 11:19 Dose: 0.5 ea - Labs Labs: 10/19/17 06:18 10/19/17 06:19 PT 14.3 SECONDS (9.7-12.2) H 10/17/17 22:24 INR 1.2 10/17/17 22:24 APTT 27 SECONDS (21-34) 10/17/17 22:24 Attending/Attestation - Attestation I have personally seen and examined this patient.: Yes I have fully participated in the care of the patient.: Yes I have reviewed all pertinent clinical information, including history, physical exam and plan: Yes Notes (Text): 10/19/17 13:52 77 year old female with h/o HTN, DM, CAD s/p CABG, breast cancer, hypothyroidism , , SSS s/p pacemaker a/w NSEMI, mesenteric ischemia s/p SM resection, with hospital course complicated by UGIB. 1. Upper GI Bleeding 2. Esophageal ulcer 3. Jejunal ulcer 4. Mesenteric ischemia Plan: -s/p EGD with evidence of esophageal and anastomotic ulceration, without active bleeding or stigmata -recommend IV PPI BID -monitor for further bleeding -transfuse as necessary to Hgb > 9 -may give CLD if able to be extubated -hold anticoagulants / antiplatelets
[2017-10-19 10:31] LABS: OSMOLALITY,URINE 593 mosm/kg (300-1000)
--- NOTE | 2017-10-19 14:33 | CP.PCM.PN ---
Subjective - Date & Time of Evaluation Date of Evaluation: 10/19/17 Time of Evaluation: 12:00 - Subjective Subjective: General Surgery Pt S&E, NAEO. had 1 more melanotic stool. Plan to start feeds today. Still intubated and at 60% FiO2. Objective - Vital Signs/Intake and Output Vital Signs (last 24 hours): Temp Pulse Resp BP Pulse Ox 98.7 F 96 H 24 117/32 L 100 10/19/17 12:00 10/19/17 13:27 10/19/17 13:27 10/19/17 13:27 10/19/17 13:27 Intake and Output: 10/19/17 10/19/17 06:59 18:59 Intake Total 1127.3 352.4 Output Total 985 365 Balance 142.3 -12.6 - Medications Medications: Current Medications Acetaminophen (Tylenol 325mg Tab) 650 mg PO Q6 PRN PRN Reason: Fever >100.4 F Albuterol/Ipratropium (Duoneb 3 Mg/0.5 Mg (3 Ml) Ud) 3 ml INH RQ6 [facility] Last Admin: 10/19/17 13:36 Dose: 3 ml Diltiazem HCl (Cardizem) 60 mg PO Q6 [facility] Last Admin: 10/19/17 11:17 Dose: 60 mg Hydromorphone HCl (Dilaudid) 1 mg IVP Q4H PRN PRN Reason: Anxiety Last Admin: 10/18/17 22:30 Dose: 1 mg Metronidazole (Flagyl) 500 mg in 100 mls @ 100 mls/hr IVPB Q8 [facility] Last Admin: 10/19/17 06:27 Dose: 100 mls/hr Meropenem 1 gm/ Sodium (Chloride) 100 mls @ 100 mls/hr IVPB Q8H [facility] Last Admin: 10/19/17 06:27 Dose: 100 mls/hr Norepinephrine Bitartrate 8 mg (/ Sodium Chloride) 258 mls @ 7.74 mls/hr IV .Q24H PRN; Protocol; 4 MCG/MIN PRN Reason: TITRATE PER MD ORDER Last Titration: 10/19/17 09:33 Dose: 4 mcg/min, 7.74 mls/hr Pantoprazole Sodium 80 mg/ (Sodium Chloride) 100 mls @ 10 mls/hr IV .Q10H TIM PRN Reason: 8 MG/HR Last Admin: 10/19/17 06:32 Dose: 10 mls/hr Insulin Human Regular (Novolin R) 0 unit SC Q6H [facility] PRN Reason: Protocol Last Admin: 10/19/17 12:47 Dose: Not Given Levothyroxine Sodium (Synthroid) 50 mcg PO DAILY@0630 [facility] Last Admin: 10/19/17 07:00 Dose: 50 mcg Lorazepam (Ativan) 2 mg IVP Q6H PRN PRN Reason: Anxiety Losartan Potassium (Cozaar) 100 mg PO DAILY [facility] Last Admin: 10/19/17 09:22 Dose: 100 mg Metoprolol Tartrate (Lopressor) 25 mg PO BID [facility] Last Admin: 10/19/17 11:17 Dose: 25 mg Mupirocin (Bactroban Ointment) 0 gm TOP BID [facility] Last Admin: 10/19/17 09:22 Dose: 1 gm Ondansetron HCl (Zofran Inj) 4 mg IVP Q6H PRN PRN Reason: Nausea/Vomiting Last Admin: 10/10/17 21:10 Dose: 4 mg Polyethylene Glycol (Miralax) 17 gm PO BID PRN PRN Reason: Constipation Last Admin: 10/07/17 10:14 Dose: 17 gm Rosuvastatin Calcium (Crestor) 5 mg NG HS [facility] Last Admin: 10/18/17 22:29 Dose: 5 mg Saccharomyces Boulardii (Florastor) 250 mg NG BID [facility] Last Admin: 10/19/17 09:22 Dose: 250 mg Vitamin A (Vitamin A & D Oint Ud Foilpak) 0.5 ea TOP Q4 [facility] Last Admin: 10/19/17 11:19 Dose: 0.5 ea - Labs Labs: 10/19/17 06:18 10/19/17 06:19 PT 14.3 SECONDS (9.7-12.2) H 10/17/17 22:24 INR 1.2 10/17/17 22:24 APTT 27 SECONDS (21-34) 10/17/17 22:24 - Constitutional Appears: Non-toxic, No Acute Distress - Head Exam Head Exam: ATRAUMATIC, NORMOCEPHALIC - ENT Exam Additional comments: ETT in place - Respiratory Exam Respiratory Exam: NORMAL BREATHING PATTERN (on vent). absent: Respiratory Distress - GI/Abdominal Exam GI & Abdominal Exam: Soft. absent: Distended, Firm, Guarding, Rigid, Tenderness , Rebound - Neurological Exam Neurological Exam: Alert, Awake - Skin Skin Exam: Dry, Warm Assessment and Plan - Assessment and Plan (Free Text) Assessment: 77F s/p ex-lap with small bowel resection POD#11 Plan: Wean vent as tolerated Management as per ICU D/W Dr Jamaal Salazar PGY4
--- NOTE | 2017-10-19 14:50 | CP.CCUPN ---
<Tommy Chang - Last Filed: 10/19/17 14:50> CCU Subjective - Physician Review Subjective (Free Text): 10/19/17 14:48 patient seen and examined at bedside intubated on pressors wants tube removed states she is thirsty CPAP today CCU Objective - Vital Signs / Intake & Output Vital Signs (Last 4 hours): Vital Signs Temp Pulse Resp BP Pulse Ox 10/19/17 13:27 96 H 24 117/32 L 100 10/19/17 12:26 95 H 18 102/46 L 100 10/19/17 12:00 98.7 F 10/19/17 11:26 120 H 17 103/51 L 100 10/19/17 11:17 103/54 L Intake and Output (Last 8hrs): Intake & Output 10/18/17 10/19/17 10/19/17 22:59 06:59 14:59 Intake Total 1652.7 712.1 352.4 Output Total 535 710 365 Balance 1117.7 2.1 -12.6 Weight 188 lb 0.6 oz Intake: IV 10 118 Intake, IV Amount 1582.7 652.1 234.4 Left Medial Port Internal 1052.7 192.1 41.4 Jugular Left Proximal Port - 80 80 40 Distal Port Left Proximal Port 450 380 153 Internal Jugular Oral 0 Other 60 60 Output: Urine 535 710 365 Urethral (Renee) 535 710 365 Other: # Bowel Movements 1 0 - Physical Exam Head: Positive for: Atraumatic, Normocephalic Pupils: Positive for: PERRL Extroacular Muscles: Positive for: EOMI Conjunctiva: Positive for: Normal Mouth: Positive for: Moist Mucous Membranes Respiratory/Chest: Positive for: Clear to Auscultation, Good Air Exchange Cardiovascular: Positive for: Regular Rate and Rhythm, Murmurs, Normal S1, S2 Abdomen: Positive for: Normal Bowel Sounds. Negative for: Tenderness, Distention, Peritoneal Signs Skin: Positive for: Warm Psychiatric: Positive for: Alert - Medications Active Medications: Active Medications Generic Name Dose Route Start Last Admin Trade Name Freq PRN Reason Stop Dose Admin Acetaminophen 650 mg 10/11/17 10:17 Tylenol 325mg Tab PO Q6 PRN Fever >100.4 F Albuterol/Ipratropium 3 ml 10/17/17 14:00 10/19/17 13:36 Duoneb 3 Mg/0.5 Mg (3 Ml) Ud INH 3 ml RQ6 TIM Administration Diltiazem HCl 60 mg 10/19/17 10:20 10/19/17 11:17 Cardizem PO 60 mg Q6 TIM Administration Hydromorphone HCl 1 mg 10/17/17 19:00 10/18/17 22:30 Dilaudid IVP 1 mg Q4H PRN Administration Anxiety Metronidazole 500 mg in 100 mls @ 100 mls/hr 10/07/17 22:00 10/19/17 06:27 Flagyl IVPB 100 mls/hr Q8 TIM Administration Meropenem 1 gm/ Sodium 100 mls @ 100 mls/hr 10/10/17 14:00 10/19/17 06:27 Chloride IVPB 100 mls/hr Q8H TIM Administration Norepinephrine Bitartrate 8 mg 258 mls @ 7.74 mls/hr 10/17/17 16:03 10/19/17 09:33 / Sodium Chloride IV 4 mcg/min .Q24H PRN 7.74 mls/hr TITRATE PER MD ORDER Titration Protocol 4 MCG/MIN Pantoprazole Sodium 80 mg/ 100 mls @ 10 mls/hr 10/18/17 08:55 10/19/17 06:32 Sodium Chloride IV 10 mls/hr .Q10H TIM Administration 8 MG/HR Insulin Human Regular 0 unit 10/17/17 18:00 10/19/17 12:47 Novolin R SC Not Given Q6H TIM Protocol Levothyroxine Sodium 50 mcg 10/12/17 06:30 10/19/17 07:00 Synthroid PO 50 mcg DAILY@0630 TIM Administration Lorazepam 2 mg 10/17/17 19:00 Ativan IVP Q6H PRN Anxiety Losartan Potassium 100 mg 10/12/17 10:00 10/19/17 09:22 Cozaar PO 100 mg DAILY TIM Administration Metoprolol Tartrate 25 mg 10/19/17 11:00 10/19/17 11:17 Lopressor PO 25 mg BID TIM Administration Mupirocin 0 gm 10/16/17 18:45 10/19/17 09:22 Bactroban Ointment TOP 1 gm BID TIM Administration Ondansetron HCl 4 mg 10/07/17 19:28 10/10/17 21:10 Zofran Inj IVP 4 mg Q6H PRN Administration Nausea/Vomiting Polyethylene Glycol 17 gm 10/06/17 15:08 10/07/17 10:14 Miralax PO 17 gm BID PRN Administration Constipation Rosuvastatin Calcium 5 mg 10/11/17 22:00 10/18/17 22:29 Crestor NG 5 mg HS TIM Administration Saccharomyces Boulardii 250 mg 10/10/17 11:15 10/19/17 09:22 Florastor NG 250 mg BID TIM Administration Vitamin A 0.5 ea 10/11/17 20:00 10/19/17 11:19 Vitamin A & D Oint Ud Foilpak TOP 0.5 ea Q4 TIM Administration - Patient Studies Lab Studies: Microbiology Studies 10/18/17 11:30 Blood Culture - Preliminary Blood NO GROWTH AFTER 24 HOURS 10/18/17 11:00 Blood Culture - Preliminary Blood NO GROWTH AFTER 24 HOURS 10/18/17 12:08 Urine Culture - Final Urine No Growth (<1,000 CFU/ML) 10/18/17 13:00 Gram Stain - Final Trachasp Sputum Culture - Preliminary No growth. 10/17/17 10:24 Gram Stain - Final Sputum Sputum Culture - Preliminary NORMAL ORAL VIANEY 10/16/17 18:15 Blood Culture - Preliminary Blood-Venous NO GROWTH AFTER 48 HOURS 10/16/17 18:25 Blood Culture - Preliminary Blood-Venous NO GROWTH AFTER 48 HOURS 10/17/17 Unknown Ova and Parasite Concentrate Exam - Final Stool Lab Studies 10/19/17 10/19/17 10/19/17 Range/Units 11:48 09:57 06:19 WBC (4.8-10.8) K/uL RBC (3.80-5.20) Mil/uL Hgb (11.0-16.0) g/dL Hct (34.0-47.0) % MCV (81.0-99.0) fL MCH (27.0-31.0) pg MCHC (33.0-37.0) g/dL RDW (11.5-14.5) % Plt Count (130-400) K/uL MPV (7.2-11.7) fL Neut % (Auto) (50.0-75.0) % Lymph % (Auto) (20.0-40.0) % Hardin % (Auto) (0.0-10.0) % Eos % (Auto) (0.0-4.0) % Baso % (Auto) (0.0-2.0) % Neut # (Auto) (1.8-7.0) K/uL Lymph # (Auto) (1.0-4.3) K/uL Hardin # (Auto) (0.0-0.8) K/uL Eos # (Auto) (0.0-0.7) K/uL Baso # (Auto) (0.0-0.2) K/uL Puncture Site pCO2 (35-45) mm/Hg pO2 (80-100) mm/Hg HCO3 (21-28) mmol/L ABG pH (7.35-7.45) ABG Total CO2 (22-28) mmol/L ABG O2 Saturation (95-98) % ABG Base Excess (-2.0-3.0) mmol/L ABG Hemoglobin (11.7-17.4) g/dL ABG Carboxyhemoglobin (0.5-1.5) % POC ABG HHb (Measured) (0.0-5.0) % ABG Methemoglobin (0.0-3.0) % Dayron Test A-a O2 Difference mm/Hg Respiratory Index Hgb O2 Saturation (95.0-98.0) % Vent Mode Mechanical Rate FiO2 % Tidal Volume PEEP Sodium 159 H (132-148) mmol/L Potassium 3.3 L (3.6-5.2) mmol/L Chloride 126 H (98-107) mmol/L Carbon Dioxide 27 (22-30) mmol/L Anion Gap 9 L (10-20) BUN 27 H (7-17) mg/dL Creatinine 1.0 (0.7-1.2) mg/dL Est GFR ( Amer) > 60 Est GFR (Non-Af Amer) 54 POC Glucose (mg/dL) 101 (65-110) mg/dL Random Glucose 112 H (65-105) mg/dL Calcium 8.2 L (8.6-10.4) mg/dl Phosphorus 2.2 L (2.5-4.5) mg/dL Magnesium 1.9 (1.6-2.3) mg/dL Total Bilirubin 0.4 (0.2-1.3) mg/dL AST 51 H D (14-36) U/L ALT 58 H D (9-52) U/L Alkaline Phosphatase 87 (38-126) U/L Total Protein 4.8 L (6.3-8.3) g/dL Albumin 2.2 L (3.5-5.0) g/dL Globulin 2.6 (2.2-3.9) gm/dL Albumin/Globulin Ratio 0.8 L (1.0-2.1) Urine Osmolality 593 (300-1000) mosm/kg Ur Random Sodium 149 mmol/L 10/19/17 10/19/17 10/19/17 Range/Units 06:18 06:12 05:11 WBC 10.3 (4.8-10.8) K/uL RBC 3.38 L (3.80-5.20) Mil/uL Hgb 10.5 L (11.0-16.0) g/dL Hct 30.1 L (34.0-47.0) % MCV 89.2 (81.0-99.0) fL MCH 31.1 H (27.0-31.0) pg MCHC 34.8 (33.0-37.0) g/dL RDW 15.4 H (11.5-14.5) % Plt Count 377 (130-400) K/uL MPV 9.1 (7.2-11.7) fL Neut % (Auto) 72.5 (50.0-75.0) % Lymph % (Auto) 13.3 L (20.0-40.0) % Hardin % (Auto) 10.5 H (0.0-10.0) % Eos % (Auto) 3.4 (0.0-4.0) % Baso % (Auto) 0.3 (0.0-2.0) % Neut # (Auto) 7.5 H (1.8-7.0) K/uL Lymph # (Auto) 1.4 (1.0-4.3) K/uL Hardin # (Auto) 1.1 H (0.0-0.8) K/uL Eos # (Auto) 0.4 (0.0-0.7) K/uL Baso # (Auto) 0.0 (0.0-0.2) K/uL Puncture Site Rb pCO2 37 (35-45) mm/Hg pO2 126 H (80-100) mm/Hg HCO3 26.8 (21-28) mmol/L ABG pH 7.46 H (7.35-7.45) ABG Total CO2 27.4 (22-28) mmol/L ABG O2 Saturation 98.4 H (95-98) % ABG Base Excess 2.4 (-2.0-3.0) mmol/L ABG Hemoglobin 10.6 L (11.7-17.4) g/dL ABG Carboxyhemoglobin 1.1 (0.5-1.5) % POC ABG HHb (Measured) 1.6 (0.0-5.0) % ABG Methemoglobin 0.8 (0.0-3.0) % Dayron Test Na A-a O2 Difference 256.0 mm/Hg Respiratory Index 2.0 Hgb O2 Saturation 96.5 (95.0-98.0) % Vent Mode Prvc Mechanical Rate 12 FiO2 60.0 % Tidal Volume 450 PEEP 5 Sodium (132-148) mmol/L Potassium (3.6-5.2) mmol/L Chloride (98-107) mmol/L Carbon Dioxide (22-30) mmol/L Anion Gap (10-20) BUN (7-17) mg/dL Creatinine (0.7-1.2) mg/dL Est GFR ( Amer) Est GFR (Non-Af Amer) POC Glucose (mg/dL) 125 H (65-110) mg/dL Random Glucose (65-105) mg/dL Calcium (8.6-10.4) mg/dl Phosphorus (2.5-4.5) mg/dL Magnesium (1.6-2.3) mg/dL Total Bilirubin (0.2-1.3) mg/dL AST (14-36) U/L ALT (9-52) U/L Alkaline Phosphatase (38-126) U/L Total Protein (6.3-8.3) g/dL Albumin (3.5-5.0) g/dL Globulin (2.2-3.9) gm/dL Albumin/Globulin Ratio (1.0-2.1) Urine Osmolality (300-1000) mosm/kg Ur Random Sodium mmol/L 10/19/17 10/18/17 Range/Units 00:00 18:00 WBC (4.8-10.8) K/uL RBC (3.80-5.20) Mil/uL Hgb (11.0-16.0) g/dL Hct (34.0-47.0) % MCV (81.0-99.0) fL MCH (27.0-31.0) pg MCHC (33.0-37.0) g/dL RDW (11.5-14.5) % Plt Count (130-400) K/uL MPV (7.2-11.7) fL Neut % (Auto) (50.0-75.0) % Lymph % (Auto) (20.0-40.0) % Hardin % (Auto) (0.0-10.0) % Eos % (Auto) (0.0-4.0) % Baso % (Auto) (0.0-2.0) % Neut # (Auto) (1.8-7.0) K/uL Lymph # (Auto) (1.0-4.3) K/uL Hardin # (Auto) (0.0-0.8) K/uL Eos # (Auto) (0.0-0.7) K/uL Baso # (Auto) (0.0-0.2) K/uL Puncture Site pCO2 (35-45) mm/Hg pO2 (80-100) mm/Hg HCO3 (21-28) mmol/L ABG pH (7.35-7.45) ABG Total CO2 (22-28) mmol/L ABG O2 Saturation (95-98) % ABG Base Excess (-2.0-3.0) mmol/L ABG Hemoglobin (11.7-17.4) g/dL ABG Carboxyhemoglobin (0.5-1.5) % POC ABG HHb (Measured) (0.0-5.0) % ABG Methemoglobin (0.0-3.0) % Dayron Test A-a O2 Difference mm/Hg Respiratory Index Hgb O2 Saturation (95.0-98.0) % Vent Mode Mechanical Rate FiO2 % Tidal Volume PEEP Sodium (132-148) mmol/L Potassium (3.6-5.2) mmol/L Chloride (98-107) mmol/L Carbon Dioxide (22-30) mmol/L Anion Gap (10-20) BUN (7-17) mg/dL Creatinine (0.7-1.2) mg/dL Est GFR ( Amer) Est GFR (Non-Af Amer) POC Glucose (mg/dL) 93 103 (65-110) mg/dL Random Glucose (65-105) mg/dL Calcium (8.6-10.4) mg/dl Phosphorus (2.5-4.5) mg/dL Magnesium (1.6-2.3) mg/dL Total Bilirubin (0.2-1.3) mg/dL AST (14-36) U/L ALT (9-52) U/L Alkaline Phosphatase (38-126) U/L Total Protein (6.3-8.3) g/dL Albumin (3.5-5.0) g/dL Globulin (2.2-3.9) gm/dL Albumin/Globulin Ratio (1.0-2.1) Urine Osmolality (300-1000) mosm/kg Ur Random Sodium mmol/L Laboratory Results - last 24 hr 10/18/17 10/19/17 10/19/17 18:00 00:00 05:11 WBC RBC Hgb Hct MCV MCH MCHC RDW Plt Count MPV Neut % (Auto) Lymph % (Auto) Hardin % (Auto) Eos % (Auto) Baso % (Auto) Neut # (Auto) Lymph # (Auto) Hardin # (Auto) Eos # (Auto) Baso # (Auto) Puncture Site Rb pCO2 37 pO2 126 H HCO3 26.8 ABG pH 7.46 H ABG Total CO2 27.4 ABG O2 Saturation 98.4 H ABG Base Excess 2.4 ABG Hemoglobin 10.6 L ABG Carboxyhemoglobin 1.1 POC ABG HHb (Measured) 1.6 ABG Methemoglobin 0.8 Dayron Test Na A-a O2 Difference 256.0 Respiratory Index 2.0 Hgb O2 Saturation 96.5 Vent Mode Prvc Mechanical Rate 12 FiO2 60.0 Tidal Volume 450 PEEP 5 Sodium Potassium Chloride Carbon Dioxide Anion Gap BUN Creatinine Est GFR ( Amer) Est GFR (Non-Af Amer) POC Glucose (mg/dL) 103 93 Random Glucose Calcium Phosphorus Magnesium Total Bilirubin AST ALT Alkaline Phosphatase Total Protein Albumin Globulin Albumin/Globulin Ratio Urine Osmolality Ur Random Sodium 10/19/17 10/19/17 10/19/17 06:12 06:18 06:19 WBC 10.3 RBC 3.38 L Hgb 10.5 L Hct 30.1 L MCV 89.2 MCH 31.1 H MCHC 34.8 RDW 15.4 H Plt Count 377 MPV 9.1 Neut % (Auto) 72.5 Lymph % (Auto) 13.3 L Hardin % (Auto) 10.5 H Eos % (Auto) 3.4 Baso % (Auto) 0.3 Neut # (Auto) 7.5 H Lymph # (Auto) 1.4 Hardin # (Auto) 1.1 H Eos # (Auto) 0.4 Baso # (Auto) 0.0 Puncture Site pCO2 pO2 HCO3 ABG pH ABG Total CO2 ABG O2 Saturation ABG Base Excess ABG Hemoglobin ABG Carboxyhemoglobin POC ABG HHb (Measured) ABG Methemoglobin Dayron Test A-a O2 Difference Respiratory Index Hgb O2 Saturation Vent Mode Mechanical Rate FiO2 Tidal Volume PEEP Sodium 159 H Potassium 3.3 L Chloride 126 H Carbon Dioxide 27 Anion Gap 9 L BUN 27 H Creatinine 1.0 Est GFR ( Amer) > 60 Est GFR (Non-Af Amer) 54 POC Glucose (mg/dL) 125 H Random Glucose 112 H Calcium 8.2 L Phosphorus 2.2 L Magnesium 1.9 Total Bilirubin 0.4 AST 51 H D ALT 58 H D Alkaline Phosphatase 87 Total Protein 4.8 L Albumin 2.2 L Globulin 2.6 Albumin/Globulin Ratio 0.8 L Urine Osmolality Ur Random Sodium 10/19/17 10/19/17 09:57 11:48 WBC RBC Hgb Hct MCV MCH MCHC RDW Plt Count MPV Neut % (Auto) Lymph % (Auto) Hardin % (Auto) Eos % (Auto) Baso % (Auto) Neut # (Auto) Lymph # (Auto) Hardin # (Auto) Eos # (Auto) Baso # (Auto) Puncture Site pCO2 pO2 HCO3 ABG pH ABG Total CO2 ABG O2 Saturation ABG Base Excess ABG Hemoglobin ABG Carboxyhemoglobin POC ABG HHb (Measured) ABG Methemoglobin Dayron Test A-a O2 Difference Respiratory Index Hgb O2 Saturation Vent Mode Mechanical Rate FiO2 Tidal Volume PEEP Sodium Potassium Chloride Carbon Dioxide Anion Gap BUN Creatinine Est GFR ( Amer) Est GFR (Non-Af Amer) POC Glucose (mg/dL) 101 Random Glucose Calcium Phosphorus Magnesium Total Bilirubin AST ALT Alkaline Phosphatase Total Protein Albumin Globulin Albumin/Globulin Ratio Urine Osmolality 593 Ur Random Sodium 149 Fingerstick Blood Sugar Results: 101 Critical Care Progress Note - Nutrition Nutrition: Nutrition Category Date Time Status NPO Diet [DIET] Diets 10/18/17 Breakfast Active Assessment/Plan - Assessment and Plan (Free Text) Assessment: 6F Afib, Rate controlled, s/p cath, s/p small bowel resection for ischemic bowel , s/p Code blue 2/2 to hypoperfusion acute GI bleed Plan: Psych: No acute issues Neuro: No Acute issues Cards: Afib, rate controlled anticoag held due to GI Bleed amiodarone 400 PO BID, cardizem 90 PO Q6, losartan levophed Pulm: intubated yesterday s/p respiratory distress CTA shows no evidence of PE CXR unremarkable CPAP today GI: s/p smal bowel resection for ischemic bowel, flagyl NPO GI EGD shows no active bleed but some clotted blood at anastomosis, Hgb stable. some ischemic changes in small bowel, will taper off pressors Renal: no acute issues PPX: Protnoix <Delvin Frias S - Last Filed: 10/19/17 17:31> CCU Objective - Vital Signs / Intake & Output Vital Signs (Last 4 hours): Vital Signs Temp Pulse Resp BP Pulse Ox 10/19/17 16:26 113 H 15 101/42 L 10/19/17 16:00 98.2 F 105 H 22 100 10/19/17 15:26 107 H 16 99/34 L 100 10/19/17 14:27 114 H 15 117/49 L 95 Intake and Output (Last 8hrs): Intake & Output 10/19/17 10/19/17 10/19/17 06:59 14:59 22:59 Intake Total 712.1 588.4 150 Output Total 710 365 Balance 2.1 223.4 150 Weight 188 lb 0.6 oz Intake: IV 118 30 Intake, IV Amount 652.1 470.4 120 Left Medial Port Internal 192.1 71.4 Jugular Left Proximal Port - 80 80 20 Distal Port Left Proximal Port 380 319 100 Internal Jugular Other 60 Output: Urine 710 365 Urethral (Renee) 710 365 Other: # Bowel Movements 0 - Medications Active Medications: Active Medications Generic Name Dose Route Start Last Admin Trade Name Freq PRN Reason Stop Dose Admin Acetaminophen 650 mg 10/11/17 10:17 Tylenol 325mg Tab PO Q6 PRN Fever >100.4 F Albuterol/Ipratropium 3 ml 10/17/17 14:00 10/19/17 13:36 Duoneb 3 Mg/0.5 Mg (3 Ml) Ud INH 3 ml RQ6 TIM Administration Diltiazem HCl 60 mg 10/19/17 10:20 10/19/17 11:17 Cardizem PO 60 mg Q6 TIM Administration Hydromorphone HCl 1 mg 10/17/17 19:00 10/18/17 22:30 Dilaudid IVP 1 mg Q4H PRN Administration Anxiety Metronidazole 500 mg in 100 mls @ 100 mls/hr 10/07/17 22:00 10/19/17 14:55 Flagyl IVPB 100 mls/hr Q8 TIM Administration Meropenem 1 gm/ Sodium 100 mls @ 100 mls/hr 10/10/17 14:00 10/19/17 14:54 Chloride IVPB 100 mls/hr Q8H TIM Administration Norepinephrine Bitartrate 8 mg 258 mls @ 7.74 mls/hr 10/17/17 16:03 10/19/17 15:05 / Sodium Chloride IV 0 mcg/min .Q24H PRN 0 mls/hr TITRATE PER MD ORDER Titration Protocol 4 MCG/MIN Pantoprazole Sodium 80 mg/ 100 mls @ 10 mls/hr 10/18/17 08:55 10/19/17 06:32 Sodium Chloride IV 10 mls/hr .Q10H TIM Administration 8 MG/HR Insulin Human Regular 0 unit 10/17/17 18:00 10/19/17 12:47 Novolin R SC Not Given Q6H TIM Protocol Levothyroxine Sodium 50 mcg 10/12/17 06:30 10/19/17 07:00 Synthroid PO 50 mcg DAILY@0630 TIM Administration Lorazepam 2 mg 10/17/17 19:00 Ativan IVP Q6H PRN Anxiety Losartan Potassium 100 mg 10/12/17 10:00 10/19/17 09:22 Cozaar PO 100 mg DAILY TIM Administration Metoprolol Tartrate 25 mg 10/19/17 11:00 10/19/17 11:17 Lopressor PO 25 mg BID TIM Administration Mupirocin 0 gm 10/16/17 18:45 10/19/17 09:22 Bactroban Ointment TOP 1 gm BID TMI Administration Ondansetron HCl 4 mg 10/07/17 19:28 10/10/17 21:10 Zofran Inj IVP 4 mg Q6H PRN Administration Nausea/Vomiting Polyethylene Glycol 17 gm 10/06/17 15:08 10/07/17 10:14 Miralax PO 17 gm BID PRN Administration Constipation Rosuvastatin Calcium 5 mg 10/11/17 22:00 10/18/17 22:29 Crestor NG 5 mg HS TIM Administration Saccharomyces Boulardii 250 mg 10/10/17 11:15 10/19/17 09:22 Florastor NG 250 mg BID TIM Administration Vitamin A 0.5 ea 10/11/17 20:00 10/19/17 11:19 Vitamin A & D Oint Ud Foilpak TOP 0.5 ea Q4 TIM Administration - Patient Studies Lab Studies: Microbiology Studies 10/18/17 11:30 Blood Culture - Preliminary Blood NO GROWTH AFTER 24 HOURS 10/18/17 11:00 Blood Culture - Preliminary Blood NO GROWTH AFTER 24 HOURS 10/18/17 12:08 Urine Culture - Final Urine No Growth (<1,000 CFU/ML) 10/18/17 13:00 Gram Stain - Final Trachasp Sputum Culture - Preliminary No growth. 10/17/17 10:24 Gram Stain - Final Sputum Sputum Culture - Preliminary NORMAL ORAL VIANEY 10/16/17 18:15 Blood Culture - Preliminary Blood-Venous NO GROWTH AFTER 48 HOURS 10/16/17 18:25 Blood Culture - Preliminary Blood-Venous NO GROWTH AFTER 48 HOURS 10/17/17 Unknown Ova and Parasite Concentrate Exam - Final Stool Lab Studies 10/19/17 10/19/17 10/19/17 Range/Units 11:48 09:57 06:19 WBC (4.8-10.8) K/uL RBC (3.80-5.20) Mil/uL Hgb (11.0-16.0) g/dL Hct (34.0-47.0) % MCV (81.0-99.0) fL MCH (27.0-31.0) pg MCHC (33.0-37.0) g/dL RDW (11.5-14.5) % Plt Count (130-400) K/uL MPV (7.2-11.7) fL Neut % (Auto) (50.0-75.0) % Lymph % (Auto) (20.0-40.0) % Hardin % (Auto) (0.0-10.0) % Eos % (Auto) (0.0-4.0) % Baso % (Auto) (0.0-2.0) % Neut # (Auto) (1.8-7.0) K/uL Lymph # (Auto) (1.0-4.3) K/uL Hardin # (Auto) (0.0-0.8) K/uL Eos # (Auto) (0.0-0.7) K/uL Baso # (Auto) (0.0-0.2) K/uL Puncture Site pCO2 (35-45) mm/Hg pO2 (80-100) mm/Hg HCO3 (21-28) mmol/L ABG pH (7.35-7.45) ABG Total CO2 (22-28) mmol/L ABG O2 Saturation (95-98) % ABG Base Excess (-2.0-3.0) mmol/L ABG Hemoglobin (11.7-17.4) g/dL ABG Carboxyhemoglobin (0.5-1.5) % POC ABG HHb (Measured) (0.0-5.0) % ABG Methemoglobin (0.0-3.0) % Dayron Test A-a O2 Difference mm/Hg Respiratory Index Hgb O2 Saturation (95.0-98.0) % Vent Mode Mechanical Rate FiO2 % Tidal Volume PEEP Sodium 159 H (132-148) mmol/L Potassium 3.3 L (3.6-5.2) mmol/L Chloride 126 H (98-107) mmol/L Carbon Dioxide 27 (22-30) mmol/L Anion Gap 9 L (10-20) BUN 27 H (7-17) mg/dL Creatinine 1.0 (0.7-1.2) mg/dL Est GFR ( Amer) > 60 Est GFR (Non-Af Amer) 54 POC Glucose (mg/dL) 101 (65-110) mg/dL Random Glucose 112 H (65-105) mg/dL Calcium 8.2 L (8.6-10.4) mg/dl Phosphorus 2.2 L (2.5-4.5) mg/dL Magnesium 1.9 (1.6-2.3) mg/dL Total Bilirubin 0.4 (0.2-1.3) mg/dL AST 51 H D (14-36) U/L ALT 58 H D (9-52) U/L Alkaline Phosphatase 87 (38-126) U/L Total Protein 4.8 L (6.3-8.3) g/dL Albumin 2.2 L (3.5-5.0) g/dL Globulin 2.6 (2.2-3.9) gm/dL Albumin/Globulin Ratio 0.8 L (1.0-2.1) Urine Osmolality 593 (300-1000) mosm/kg Ur Random Sodium 149 mmol/L 10/19/17 10/19/17 10/19/17 Range/Units 06:18 06:12 05:11 WBC 10.3 (4.8-10.8) K/uL RBC 3.38 L (3.80-5.20) Mil/uL Hgb 10.5 L (11.0-16.0) g/dL Hct 30.1 L (34.0-47.0) % MCV 89.2 (81.0-99.0) fL MCH 31.1 H (27.0-31.0) pg MCHC 34.8 (33.0-37.0) g/dL RDW 15.4 H (11.5-14.5) % Plt Count 377 (130-400) K/uL MPV 9.1 (7.2-11.7) fL Neut % (Auto) 72.5 (50.0-75.0) % Lymph % (Auto) 13.3 L (20.0-40.0) % Hardin % (Auto) 10.5 H (0.0-10.0) % Eos % (Auto) 3.4 (0.0-4.0) % Baso % (Auto) 0.3 (0.0-2.0) % Neut # (Auto) 7.5 H (1.8-7.0) K/uL Lymph # (Auto) 1.4 (1.0-4.3) K/uL Hardin # (Auto) 1.1 H (0.0-0.8) K/uL Eos # (Auto) 0.4 (0.0-0.7) K/uL Baso # (Auto) 0.0 (0.0-0.2) K/uL Puncture Site Rb pCO2 37 (35-45) mm/Hg pO2 126 H (80-100) mm/Hg HCO3 26.8 (21-28) mmol/L ABG pH 7.46 H (7.35-7.45) ABG Total CO2 27.4 (22-28) mmol/L ABG O2 Saturation 98.4 H (95-98) % ABG Base Excess 2.4 (-2.0-3.0) mmol/L ABG Hemoglobin 10.6 L (11.7-17.4) g/dL ABG Carboxyhemoglobin 1.1 (0.5-1.5) % POC ABG HHb (Measured) 1.6 (0.0-5.0) % ABG Methemoglobin 0.8 (0.0-3.0) % Dayron Test Na A-a O2 Difference 256.0 mm/Hg Respiratory Index 2.0 Hgb O2 Saturation 96.5 (95.0-98.0) % Vent Mode Prvc Mechanical Rate 12 FiO2 60.0 % Tidal Volume 450 PEEP 5 Sodium (132-148) mmol/L Potassium (3.6-5.2) mmol/L Chloride (98-107) mmol/L Carbon Dioxide (22-30) mmol/L Anion Gap (10-20) BUN (7-17) mg/dL Creatinine (0.7-1.2) mg/dL Est GFR ( Amer) Est GFR (Non-Af Amer) POC Glucose (mg/dL) 125 H (65-110) mg/dL Random Glucose (65-105) mg/dL Calcium (8.6-10.4) mg/dl Phosphorus (2.5-4.5) mg/dL Magnesium (1.6-2.3) mg/dL Total Bilirubin (0.2-1.3) mg/dL AST (14-36) U/L ALT (9-52) U/L Alkaline Phosphatase (38-126) U/L Total Protein (6.3-8.3) g/dL Albumin (3.5-5.0) g/dL Globulin (2.2-3.9) gm/dL Albumin/Globulin Ratio (1.0-2.1) Urine Osmolality (300-1000) mosm/kg Ur Random Sodium mmol/L 10/19/17 10/18/17 Range/Units 00:00 18:00 WBC (4.8-10.8) K/uL RBC (3.80-5.20) Mil/uL Hgb (11.0-16.0) g/dL Hct (34.0-47.0) % MCV (81.0-99.0) fL MCH (27.0-31.0) pg MCHC (33.0-37.0) g/dL RDW (11.5-14.5) % Plt Count (130-400) K/uL MPV (7.2-11.7) fL Neut % (Auto) (50.0-75.0) % Lymph % (Auto) (20.0-40.0) % Hardin % (Auto) (0.0-10.0) % Eos % (Auto) (0.0-4.0) % Baso % (Auto) (0.0-2.0) % Neut # (Auto) (1.8-7.0) K/uL Lymph # (Auto) (1.0-4.3) K/uL Hardin # (Auto) (0.0-0.8) K/uL Eos # (Auto) (0.0-0.7) K/uL Baso # (Auto) (0.0-0.2) K/uL Puncture Site pCO2 (35-45) mm/Hg pO2 (80-100) mm/Hg HCO3 (21-28) mmol/L ABG pH (7.35-7.45) ABG Total CO2 (22-28) mmol/L ABG O2 Saturation (95-98) % ABG Base Excess (-2.0-3.0) mmol/L ABG Hemoglobin (11.7-17.4) g/dL ABG Carboxyhemoglobin (0.5-1.5) % POC ABG HHb (Measured) (0.0-5.0) % ABG Methemoglobin (0.0-3.0) % Dayron Test A-a O2 Difference mm/Hg Respiratory Index Hgb O2 Saturation (95.0-98.0) % Vent Mode Mechanical Rate FiO2 % Tidal Volume PEEP Sodium (132-148) mmol/L Potassium (3.6-5.2) mmol/L Chloride (98-107) mmol/L Carbon Dioxide (22-30) mmol/L Anion Gap (10-20) BUN (7-17) mg/dL Creatinine (0.7-1.2) mg/dL Est GFR ( Amer) Est GFR (Non-Af Amer) POC Glucose (mg/dL) 93 103 (65-110) mg/dL Random Glucose (65-105) mg/dL Calcium (8.6-10.4) mg/dl Phosphorus (2.5-4.5) mg/dL Magnesium (1.6-2.3) mg/dL Total Bilirubin (0.2-1.3) mg/dL AST (14-36) U/L ALT (9-52) U/L Alkaline Phosphatase (38-126) U/L Total Protein (6.3-8.3) g/dL Albumin (3.5-5.0) g/dL Globulin (2.2-3.9) gm/dL Albumin/Globulin Ratio (1.0-2.1) Urine Osmolality (300-1000) mosm/kg Ur Random Sodium mmol/L Laboratory Results - last 24 hr 10/18/17 10/19/17 10/19/17 18:00 00:00 05:11 WBC RBC Hgb Hct MCV MCH MCHC RDW Plt Count MPV Neut % (Auto) Lymph % (Auto) Hardin % (Auto) Eos % (Auto) Baso % (Auto) Neut # (Auto) Lymph # (Auto) Hardin # (Auto) Eos # (Auto) Baso # (Auto) Puncture Site Rb pCO2 37 pO2 126 H HCO3 26.8 ABG pH 7.46 H ABG Total CO2 27.4 ABG O2 Saturation 98.4 H ABG Base Excess 2.4 ABG Hemoglobin 10.6 L ABG Carboxyhemoglobin 1.1 POC ABG HHb (Measured) 1.6 ABG Methemoglobin 0.8 Dayron Test Na A-a O2 Difference 256.0 Respiratory Index 2.0 Hgb O2 Saturation 96.5 Vent Mode Prvc Mechanical Rate 12 FiO2 60.0 Tidal Volume 450 PEEP 5 Sodium Potassium Chloride Carbon Dioxide Anion Gap BUN Creatinine Est GFR ( Amer) Est GFR (Non-Af Amer) POC Glucose (mg/dL) 103 93 Random Glucose Calcium Phosphorus Magnesium Total Bilirubin AST ALT Alkaline Phosphatase Total Protein Albumin Globulin Albumin/Globulin Ratio Urine Osmolality Ur Random Sodium 10/19/17 10/19/17 10/19/17 06:12 06:18 06:19 WBC 10.3 RBC 3.38 L Hgb 10.5 L Hct 30.1 L MCV 89.2 MCH 31.1 H MCHC 34.8 RDW 15.4 H Plt Count 377 MPV 9.1 Neut % (Auto) 72.5 Lymph % (Auto) 13.3 L Hardin % (Auto) 10.5 H Eos % (Auto) 3.4 Baso % (Auto) 0.3 Neut # (Auto) 7.5 H Lymph # (Auto) 1.4 Hardin # (Auto) 1.1 H Eos # (Auto) 0.4 Baso # (Auto) 0.0 Puncture Site pCO2 pO2 HCO3 ABG pH ABG Total CO2 ABG O2 Saturation ABG Base Excess ABG Hemoglobin ABG Carboxyhemoglobin POC ABG HHb (Measured) ABG Methemoglobin Dayron Test A-a O2 Difference Respiratory Index Hgb O2 Saturation Vent Mode Mechanical Rate FiO2 Tidal Volume PEEP Sodium 159 H Potassium 3.3 L Chloride 126 H Carbon Dioxide 27 Anion Gap 9 L BUN 27 H Creatinine 1.0 Est GFR ( Amer) > 60 Est GFR (Non-Af Amer) 54 POC Glucose (mg/dL) 125 H Random Glucose 112 H Calcium 8.2 L Phosphorus 2.2 L Magnesium 1.9 Total Bilirubin 0.4 AST 51 H D ALT 58 H D Alkaline Phosphatase 87 Total Protein 4.8 L Albumin 2.2 L Globulin 2.6 Albumin/Globulin Ratio 0.8 L Urine Osmolality Ur Random Sodium 10/19/17 10/19/17 09:57 11:48 WBC RBC Hgb Hct MCV MCH MCHC RDW Plt Count MPV Neut % (Auto) Lymph % (Auto) Hardin % (Auto) Eos % (Auto) Baso % (Auto) Neut # (Auto) Lymph # (Auto) Hardin # (Auto) Eos # (Auto) Baso # (Auto) Puncture Site pCO2 pO2 HCO3 ABG pH ABG Total CO2 ABG O2 Saturation ABG Base Excess ABG Hemoglobin ABG Carboxyhemoglobin POC ABG HHb (Measured) ABG Methemoglobin Dayron Test A-a O2 Difference Respiratory Index Hgb O2 Saturation Vent Mode Mechanical Rate FiO2 Tidal Volume PEEP Sodium Potassium Chloride Carbon Dioxide Anion Gap BUN Creatinine Est GFR ( Amer) Est GFR (Non-Af Amer) POC Glucose (mg/dL) 101 Random Glucose Calcium Phosphorus Magnesium Total Bilirubin AST ALT Alkaline Phosphatase Total Protein Albumin Globulin Albumin/Globulin Ratio Urine Osmolality 593 Ur Random Sodium 149 Critical Care Progress Note - Nutrition Nutrition: Nutrition Category Date Time Status NPO Diet [DIET] Diets 10/18/17 Breakfast Active Attending/Attestation - Attestation I have personally seen and examined this patient.: Yes I have fully participated in the care of the patient.: Yes I have reviewed all pertinent clinical information: Yes Notes (Text): 10/19/17 17:30 Patient seen and examined in the intensive care unit. Case discussed with house staff in the morning rounds. CPAP trial Status post EGD with esophageal and anastomotic ulceration, without active bleeding continue Protonix Follow-up H&H and transfuse if necessary Started on free water for hypernatremia On antibiotics
--- NOTE | 2017-10-19 22:44 | CP.PCM.PN ---
Subjective - Date & Time of Evaluation Date of Evaluation: 10/19/17 Time of Evaluation: 03:00 - Subjective Subjective: find Objective - Vital Signs/Intake and Output Vital Signs (last 24 hours): Temp Pulse Resp BP Pulse Ox 98.4 F 122 H 22 108/87 98 10/19/17 20:00 10/19/17 22:00 10/19/17 22:00 10/19/17 22:00 10/19/17 22:00 Intake and Output: 10/19/17 10/20/17 18:59 06:59 Intake Total 1413.4 70 Output Total 925 80 Balance 488.4 -10 - Medications Medications: Current Medications Acetaminophen (Tylenol 325mg Tab) 650 mg PO Q6 PRN PRN Reason: Fever >100.4 F Albuterol/Ipratropium (Duoneb 3 Mg/0.5 Mg (3 Ml) Ud) 3 ml INH RQ6 [facility] Last Admin: 10/19/17 19:38 Dose: 3 ml Diltiazem HCl (Cardizem) 60 mg PO Q6 [facility] Last Admin: 10/19/17 18:40 Dose: Not Given Hydromorphone HCl (Dilaudid) 1 mg IVP Q4H PRN PRN Reason: Anxiety Last Admin: 10/18/17 22:30 Dose: 1 mg Metronidazole (Flagyl) 500 mg in 100 mls @ 100 mls/hr IVPB Q8 [facility] Last Admin: 10/19/17 21:09 Dose: 100 mls/hr Meropenem 1 gm/ Sodium (Chloride) 100 mls @ 100 mls/hr IVPB Q8H [facility] Last Admin: 10/19/17 21:40 Dose: 100 mls/hr Norepinephrine Bitartrate 8 mg (/ Sodium Chloride) 258 mls @ 7.74 mls/hr IV .Q24H PRN; Protocol; 4 MCG/MIN PRN Reason: TITRATE PER MD ORDER Last Titration: 10/19/17 15:05 Dose: 0 mcg/min, 0 mls/hr Pantoprazole Sodium 80 mg/ (Sodium Chloride) 100 mls @ 10 mls/hr IV .Q10H TIM PRN Reason: 8 MG/HR Last Admin: 10/19/17 20:40 Dose: 10 mls/hr Insulin Human Regular (Novolin R) 0 unit SC Q6H TIM PRN Reason: Protocol Levothyroxine Sodium (Synthroid) 50 mcg PO DAILY@0630 [facility] Last Admin: 10/19/17 07:00 Dose: 50 mcg Lorazepam (Ativan) 2 mg IVP Q6H PRN PRN Reason: Anxiety Losartan Potassium (Cozaar) 100 mg PO DAILY [facility] Last Admin: 10/19/17 09:22 Dose: 100 mg Metoprolol Tartrate (Lopressor) 25 mg PO BID [facility] Last Admin: 10/19/17 18:40 Dose: Not Given Mupirocin (Bactroban Ointment) 0 gm TOP BID [facility] Last Admin: 10/19/17 18:36 Dose: 1 gm Ondansetron HCl (Zofran Inj) 4 mg IVP Q6H PRN PRN Reason: Nausea/Vomiting Last Admin: 10/10/17 21:10 Dose: 4 mg Polyethylene Glycol (Miralax) 17 gm PO BID PRN PRN Reason: Constipation Last Admin: 10/07/17 10:14 Dose: 17 gm Rosuvastatin Calcium (Crestor) 5 mg NG HS [facility] Last Admin: 10/19/17 21:17 Dose: 5 mg Saccharomyces Boulardii (Florastor) 250 mg NG BID [facility] Last Admin: 10/19/17 18:35 Dose: 250 mg Vitamin A (Vitamin A & D Oint Ud Foilpak) 0.5 ea TOP Q4 [facility] Last Admin: 10/19/17 20:36 Dose: 0.5 ea - Labs Labs: 10/19/17 06:18 10/19/17 06:19 PT 14.3 SECONDS (9.7-12.2) H 10/17/17 22:24 INR 1.2 10/17/17 22:24 APTT 27 SECONDS (21-34) 10/17/17 22:24
[2017-10-20] MEDS: Vitamins A & D Oint UD Foilpak TOP SCH ×6 (00:07→20:48)
[2017-10-20] MEDS: (Novolin R) Insulin Human Regular 100 units/ml vial SC SCH ×4 (00:07→17:51)
[2017-10-20] MEDS: Pantoprazole 80 MG in Sodium Chloride 0.9% 100 ML IV SCH ×2 (01:00→05:25)
[2017-10-20] MEDS: Albuterol-Ipratrop 3 mg / 0.5 (3 ml) UD INH SCH ×4 (01:16→19:20)
--- NOTE | 2017-10-20 03:31 | PN ---
DATE: SUBJECTIVE: The patient was seen today around 2, and she was still intubated, but she was awake. She wanted to get her tube out, and I told her that probably it will get out today or tomorrow depending on how the Pulmonary attending finds her pulmonary status. She denied any abdominal pain. She was looking lot better, and she did have the EGD yesterday; and yesterday when I visited, they were doing EGD, hence, I did not get to see her. PHYSICAL EXAMINATION: VITAL SIGNS: Her vitals today was 98.4 and blood pressure of 112/53, respirations were on the vent, and she was saturating well. LUNGS: Clear. No crackles or rales present. Coarse breath sounds. HEART: S1, S2 was regular. ABDOMEN: Soft, nontender. No guarding, no rigidity present. EXTREMITIES: Had no edema. LABORATORY DATA: Her white count was 10.3, hemoglobin 10.5, hematocrit 30.1, platelet count was 377. Her numbers were looking better and her ABG was also looking better. Saturation was 98.4. Sodium, however, has been 159, potassium 3.3. Electrolytes are still showing hypernatremia. The patient is status post ischemic bowel and surgery, respiratory failure, severe anemia due to blood loss and is on meropenem at this time, and is looking forward to be extubated. I would leave her on meropenem, and she has been on meropenem and Flagyl since her surgery. Reji Lawson MD
[2017-10-20 05:24] LABS: ARTERIAL BLOOD GAS HCO3 24.9 mmol/L (21-28); ARTERIAL BLOOD GAS HEMOGLOBIN 9.5 g/dL (11.7-17.4); ARTERIAL BLOOD GAS O2 SAT 98.4 % (95-98); ARTERIAL BLOOD GAS PCO2 34 mm/Hg (35-45); ARTERIAL BLOOD GAS PH 7.45 (7.35-7.45); ARTERIAL BLOOD GAS PO2 140 mm/Hg (80-100); ARTERIAL BLOOD GAS TCO2 24.6 mmol/L (22-28)
[2017-10-20] MEDS: Meropenem 1 GM in Sodium Chloride 0.9% 100 ML IVPB SCH ×3 (05:24→21:00)
[2017-10-20] MEDS: metroNIDAZOLE IV 500 mg/100 ml 500 MG/100 ML BAG IVPB SCH ×3 (06:01→21:52)
[2017-10-20] MEDS: Levothyroxine 50 MCG TAB PO SCH (06:01)
[2017-10-20 06:38] LABS: BASO # 0.1 K/uL (0.0-0.2); BASO % 0.9 % (0.0-2.0); EOS # 0.2 K/uL (0.0-0.7); EOS % 2.5 % (0.0-4.0); HEMOGLOBIN 9.8 g/dL (11.0-16.0); LYMPH # 1.3 K/uL (1.0-4.3); LYMPH % 14.7 % (20.0-40.0); MEAN CELL VOLUME 89.3 fL (81.0-99.0); MEAN CORPUSCULAR HGB CONC 33.6 g/dL (33.0-37.0); MEAN PLATELET VOLUME 9.3 fL (7.2-11.7); MONO # 0.9 K/uL (0.0-0.8); MONO % 10.3 % (0.0-10.0); NEUT # 6.5 K/uL (1.8-7.0); NEUT % 71.6 % (50.0-75.0); NRBC % 0.1 % (0.0-2.0); RBC 3.27 Mil/uL (3.80-5.20); RED CELL DISTRIBUTION WIDTH 15.1 % (11.5-14.5)
[2017-10-20 06:58] LABS: ALB/GLOB RATIO 0.8 (1.0-2.1); ALBUMIN 2.2 g/dL (3.5-5.0); ALT/SGPT 44 U/L (9-52); AST/SGOT 31 U/L (14-36); BLOOD UREA NITROGEN 22 mg/dL (7-17); CALCIUM 8.2 mg/dl (8.6-10.4); GFR AFRICAN-AMERICAN > 60; GFR NON-AFRICAN AMERICAN > 60; MAGNESIUM 1.8 mg/dL (1.6-2.3)
[2017-10-20] MEDS ORDERED: Magnesium Sulfate 1 gm in D5W 1 GM/100 ML BAG IVPB ONE (08:11)
[2017-10-20] MEDS ORDERED: Potassium Chloride 20 mEq ER Tab PO ONE (08:12)
--- NOTE | 2017-10-20 08:25 | CP.PCM.PN ---
Subjective - Date & Time of Evaluation Date of Evaluation: 10/20/17 Time of Evaluation: 08:22 - Subjective Subjective: General Surgery Note for Dr. Hinton Patient seen and examined at bedside. No acute event overnight. No melana or hematochezia reported. She is still intubated with FiO2 reduced to 40%. Patient is awake and alert. Objective - Vital Signs/Intake and Output Vital Signs (last 24 hours): Temp Pulse Resp BP Pulse Ox 98.2 F 119 H 16 96/48 L 100 10/20/17 04:00 10/20/17 07:00 10/20/17 07:00 10/20/17 07:00 10/20/17 07:00 Intake and Output: 10/20/17 10/20/17 06:59 18:59 Intake Total 1380 40 Output Total 630 30 Balance 750 10 - Medications Medications: Current Medications Acetaminophen (Tylenol 325mg Tab) 650 mg PO Q6 PRN PRN Reason: Fever >100.4 F Albuterol/Ipratropium (Duoneb 3 Mg/0.5 Mg (3 Ml) Ud) 3 ml INH RQ6 [facility] Last Admin: 10/20/17 07:38 Dose: 3 ml Diltiazem HCl (Cardizem) 60 mg PO Q6 [facility] Last Admin: 10/20/17 05:57 Dose: 60 mg Hydromorphone HCl (Dilaudid) 1 mg IVP Q4H PRN PRN Reason: Anxiety Last Admin: 10/18/17 22:30 Dose: 1 mg Metronidazole (Flagyl) 500 mg in 100 mls @ 100 mls/hr IVPB Q8 [facility] Last Admin: 10/20/17 06:01 Dose: 100 mls/hr Meropenem 1 gm/ Sodium (Chloride) 100 mls @ 100 mls/hr IVPB Q8H [facility] Last Admin: 10/20/17 05:24 Dose: 100 mls/hr Norepinephrine Bitartrate 8 mg (/ Sodium Chloride) 258 mls @ 7.74 mls/hr IV .Q24H PRN; Protocol; 4 MCG/MIN PRN Reason: TITRATE PER MD ORDER Last Titration: 10/19/17 15:05 Dose: 0 mcg/min, 0 mls/hr Magnesium Sulfate/Dextrose (Magnesium Sulfate 1 Gm/100 Ml D5w) 1 gm in 100 mls @ 200 mls/hr IVPB ONCE ONE Stop: 10/20/17 08:40 Insulin Human Regular (Novolin R) 0 unit SC Q6H TIM PRN Reason: Protocol Last Admin: 10/20/17 06:15 Dose: Not Given Levothyroxine Sodium (Synthroid) 50 mcg PO DAILY@0630 [facility] Last Admin: 10/20/17 06:01 Dose: 50 mcg Lorazepam (Ativan) 2 mg IVP Q6H PRN PRN Reason: Anxiety Losartan Potassium (Cozaar) 100 mg PO DAILY [facility] Last Admin: 10/19/17 09:22 Dose: 100 mg Metoprolol Tartrate (Lopressor) 25 mg PO BID [facility] Last Admin: 10/19/17 18:40 Dose: Not Given Mupirocin (Bactroban Ointment) 0 gm TOP BID [facility] Last Admin: 10/19/17 18:36 Dose: 1 gm Ondansetron HCl (Zofran Inj) 4 mg IVP Q6H PRN PRN Reason: Nausea/Vomiting Last Admin: 10/10/17 21:10 Dose: 4 mg Pantoprazole Sodium (Protonix Inj) 40 mg IVP Q12H [facility] Polyethylene Glycol (Miralax) 17 gm PO BID PRN PRN Reason: Constipation Last Admin: 10/07/17 10:14 Dose: 17 gm Rosuvastatin Calcium (Crestor) 5 mg NG HS [facility] Last Admin: 10/19/17 21:17 Dose: 5 mg Saccharomyces Boulardii (Florastor) 250 mg NG BID [facility] Last Admin: 10/19/17 18:35 Dose: 250 mg Vitamin A (Vitamin A & D Oint Ud Foilpak) 0.5 ea TOP Q4 [facility] Last Admin: 10/20/17 03:15 Dose: 0.5 ea - Labs Labs: 10/20/17 06:32 10/20/17 06:32 PT 14.3 SECONDS (9.7-12.2) H 10/17/17 22:24 INR 1.2 10/17/17 22:24 APTT 27 SECONDS (21-34) 10/17/17 22:24 - Constitutional Appears: No Acute Distress - Head Exam Head Exam: ATRAUMATIC, NORMOCEPHALIC - Eye Exam Eye Exam: Normal appearance - ENT Exam Additional comments: ET tube in place - Respiratory Exam Additional comments: intubated and on vent support 450, 5, 12, 40% - Cardiovascular Exam Cardiovascular Exam: REGULAR RHYTHM - GI/Abdominal Exam GI & Abdominal Exam: Soft, Normal Bowel Sounds. absent: Distended, Firm, Guarding, Rigid, Tenderness, Rebound Additional comments: Midline incision clean dry and intact - half of alirio removed today - Extremities Exam Extremities Exam: Normal Capillary Refill - Neurological Exam Neurological Exam: Alert, Awake - Psychiatric Exam Psychiatric exam: Anxious - Skin Skin Exam: Dry, Intact, Normal Color, Warm Assessment and Plan - Assessment and Plan (Free Text) Plan: 77F s/p ex-lap with small bowel resection POD#12 Ventilator weaning Hgb still downtrending Monitor for melena/hematochezia Management as per ICU Discussed with Dr Jamaal Ramires PGY1
[2017-10-20] MEDS ORDERED: Potassium Chloride 20 mEq/15 ml LIQ UD PO ONE (08:36)
--- NOTE | 2017-10-20 08:41 | CP.PCM.PN ---
<BienvenidoJane - Last Filed: 10/20/17 08:41> Subjective - Date & Time of Evaluation Date of Evaluation: 10/20/17 Time of Evaluation: 06:30 - Subjective Subjective: GI Fellow PGY4 Progress Note Pt seen and evaluated at bedside, per nursing and documentation of one moderate green dark stool overnight. Pt is off Levophed and still intubated. Pt with OGT and tolerating TF on PPI. ROS: A 12pt ROS was unable to be obtained as pt is intubated. Objective - Vital Signs/Intake and Output Vital Signs (last 24 hours): Temp Pulse Resp BP Pulse Ox 98.2 F 119 H 16 96/48 L 100 10/20/17 04:00 10/20/17 07:00 10/20/17 07:00 10/20/17 07:00 10/20/17 07:00 Intake and Output: 10/20/17 10/20/17 06:59 18:59 Intake Total 1380 40 Output Total 630 30 Balance 750 10 - Medications Medications: Current Medications Acetaminophen (Tylenol 325mg Tab) 650 mg PO Q6 PRN PRN Reason: Fever >100.4 F Albuterol/Ipratropium (Duoneb 3 Mg/0.5 Mg (3 Ml) Ud) 3 ml INH RQ6 [facility] Last Admin: 10/20/17 07:38 Dose: 3 ml Diltiazem HCl (Cardizem) 60 mg PO Q6 [facility] Last Admin: 10/20/17 05:57 Dose: 60 mg Hydromorphone HCl (Dilaudid) 1 mg IVP Q4H PRN PRN Reason: Anxiety Last Admin: 10/18/17 22:30 Dose: 1 mg Metronidazole (Flagyl) 500 mg in 100 mls @ 100 mls/hr IVPB Q8 [facility] Last Admin: 10/20/17 06:01 Dose: 100 mls/hr Meropenem 1 gm/ Sodium (Chloride) 100 mls @ 100 mls/hr IVPB Q8H [facility] Last Admin: 10/20/17 05:24 Dose: 100 mls/hr Norepinephrine Bitartrate 8 mg (/ Sodium Chloride) 258 mls @ 7.74 mls/hr IV .Q24H PRN; Protocol; 4 MCG/MIN PRN Reason: TITRATE PER MD ORDER Last Titration: 10/19/17 15:05 Dose: 0 mcg/min, 0 mls/hr Magnesium Sulfate/Dextrose (Magnesium Sulfate 1 Gm/100 Ml D5w) 1 gm in 100 mls @ 200 mls/hr IVPB ONCE ONE Stop: 10/20/17 08:40 Insulin Human Regular (Novolin R) 0 unit SC Q6H TIM PRN Reason: Protocol Last Admin: 10/20/17 06:15 Dose: Not Given Levothyroxine Sodium (Synthroid) 50 mcg PO DAILY@0630 [facility] Last Admin: 10/20/17 06:01 Dose: 50 mcg Lorazepam (Ativan) 2 mg IVP Q6H PRN PRN Reason: Anxiety Losartan Potassium (Cozaar) 100 mg PO DAILY [facility] Last Admin: 10/19/17 09:22 Dose: 100 mg Metoprolol Tartrate (Lopressor) 25 mg PO BID [facility] Last Admin: 10/19/17 18:40 Dose: Not Given Mupirocin (Bactroban Ointment) 0 gm TOP BID [facility] Last Admin: 10/19/17 18:36 Dose: 1 gm Ondansetron HCl (Zofran Inj) 4 mg IVP Q6H PRN PRN Reason: Nausea/Vomiting Last Admin: 10/10/17 21:10 Dose: 4 mg Pantoprazole Sodium (Protonix Inj) 40 mg IVP Q12H [facility] Polyethylene Glycol (Miralax) 17 gm PO BID PRN PRN Reason: Constipation Last Admin: 10/07/17 10:14 Dose: 17 gm Potassium Chloride (Potassium Chloride Oral Soln) 20 meq PO ONCE ONE Stop: 10/20/17 08:37 Rosuvastatin Calcium (Crestor) 5 mg NG HS [facility] Last Admin: 10/19/17 21:17 Dose: 5 mg Saccharomyces Boulardii (Florastor) 250 mg NG BID [facility] Last Admin: 10/19/17 18:35 Dose: 250 mg Vitamin A (Vitamin A & D Oint Ud Foilpak) 0.5 ea TOP Q4 [facility] Last Admin: 10/20/17 03:15 Dose: 0.5 ea - Labs Labs: 10/20/17 06:32 10/20/17 06:32 PT 14.3 SECONDS (9.7-12.2) H 10/17/17 22:24 INR 1.2 10/17/17 22:24 APTT 27 SECONDS (21-34) 10/17/17 22:24 - Constitutional Appears: Non-toxic, No Acute Distress, Chronically Ill - Head Exam Head Exam: ATRAUMATIC, NORMAL INSPECTION, NORMOCEPHALIC - Eye Exam Eye Exam: EOMI, Normal appearance, PERRL Pupil Exam: PERRL - ENT Exam ENT Exam: Mucous Membranes Dry, Normal Exam - Neck Exam Neck Exam: Full ROM - Respiratory Exam Respiratory Exam: Decreased Breath Sounds, Respiratory Distress - Cardiovascular Exam Cardiovascular Exam: Tachycardia, Irregular Rhythm - GI/Abdominal Exam GI & Abdominal Exam: Soft, Normal Bowel Sounds. absent: Distended, Tenderness - Rectal Exam Rectal Exam: Deferred - Extremities Exam Extremities Exam: Normal Inspection - Neurological Exam Neurological Exam: Alert, Awake - Psychiatric Exam Psychiatric exam: Normal Affect, Normal Mood - Skin Skin Exam: Dry, Intact, Normal Color, Warm Assessment and Plan - Assessment and Plan (Free Text) Assessment: This is a 77 year old female with history of HTN, DM, CAD/CABG, breast cancer, hypothyroidism, aortic stenosis, bradycardia/SSS s/p PPM who was admitted to hospital for evaluation of chest pain and vomiting. 1. Upper GI Bleeding-Melena resolved 2. Esophageal, Duodenal, Jejunal ulcerations 3. Cardiac Arrest 4. NSTEMI s/p cardiac cath RCA 50% stenosis 5. Small bowel ischmeic, necrosis s/p small bowel resection and primary anastamosis 6. Hepatic cysts 7. VDRF 8. UTI Plan: -Continue supportive care with respiratory status and plan for extubation per ICU team -s/p EGD with ulcerations and adherent clot but no active bleeding so no intervention -Hgb stable, continue to monitor -Continue IV PPI bid -Continue to hold OAC and antiplatelet therapy -Tolerating TF -Continue IV abx, ID following -Small bowel ischemia s/p resection, surgery following -CAD with cardiology following, will need to discuss restarting OAC and anti- platelet therapy -Hepatic cysts are benign, no hemangioma on imaging with no concern for bleeding -Please call with any questions or concerns <Andrew Boland - Last Filed: 10/20/17 14:54> Objective - Vital Signs/Intake and Output Vital Signs (last 24 hours): Temp Pulse Resp BP Pulse Ox 98.7 F 102 H 22 110/38 L 97 10/20/17 12:00 10/20/17 14:02 10/20/17 14:02 10/20/17 14:02 10/20/17 14:02 Intake and Output: 10/20/17 10/20/17 06:59 18:59 Intake Total 1380 540 Output Total 630 635 Balance 750 -95 - Medications Medications: Current Medications Acetaminophen (Tylenol 325mg Tab) 650 mg PO Q6 PRN PRN Reason: Fever >100.4 F Albuterol/Ipratropium (Duoneb 3 Mg/0.5 Mg (3 Ml) Ud) 3 ml INH RQ6 [facility] Last Admin: 10/20/17 13:25 Dose: 3 ml Diltiazem HCl (Cardizem) 60 mg PO Q6 [facility] Last Admin: 10/20/17 11:28 Dose: Not Given Hydromorphone HCl (Dilaudid) 1 mg IVP Q4H PRN PRN Reason: Anxiety Last Admin: 10/18/17 22:30 Dose: 1 mg Metronidazole (Flagyl) 500 mg in 100 mls @ 100 mls/hr IVPB Q8 [facility] Last Admin: 10/20/17 13:21 Dose: 100 mls/hr Meropenem 1 gm/ Sodium (Chloride) 100 mls @ 100 mls/hr IVPB Q8H [facility] Last Admin: 10/20/17 13:22 Dose: 100 mls/hr Insulin Human Regular (Novolin R) 0 unit SC Q6H TIM PRN Reason: Protocol Last Admin: 10/20/17 12:39 Dose: Not Given Levothyroxine Sodium (Synthroid) 50 mcg PO DAILY@0630 [facility] Last Admin: 10/20/17 06:01 Dose: 50 mcg Losartan Potassium (Cozaar) 100 mg PO DAILY [facility] Last Admin: 10/20/17 10:12 Dose: Not Given Mupirocin (Bactroban Ointment) 0 gm TOP BID [facility] Last Admin: 10/20/17 10:13 Dose: 1 gm Ondansetron HCl (Zofran Inj) 4 mg IVP Q6H PRN PRN Reason: Nausea/Vomiting Last Admin: 10/10/17 21:10 Dose: 4 mg Pantoprazole Sodium (Protonix Inj) 40 mg IVP Q12H [facility] Last Admin: 10/20/17 10:11 Dose: 40 mg Polyethylene Glycol (Miralax) 17 gm PO BID PRN PRN Reason: Constipation Last Admin: 10/07/17 10:14 Dose: 17 gm Rosuvastatin Calcium (Crestor) 5 mg NG HS [facility] Last Admin: 10/19/17 21:17 Dose: 5 mg Saccharomyces Boulardii (Florastor) 250 mg NG BID [facility] Last Admin: 10/20/17 10:12 Dose: 250 mg Vitamin A (Vitamin A & D Oint Ud Foilpak) 0.5 ea TOP Q4 [facility] Last Admin: 10/20/17 12:53 Dose: Not Given - Labs Labs: 10/20/17 06:32 10/20/17 06:32 PT 14.3 SECONDS (9.7-12.2) H 10/17/17 22:24 INR 1.2 10/17/17 22:24 APTT 27 SECONDS (21-34) 10/17/17 22:24 Attending/Attestation - Attestation I have personally seen and examined this patient.: Yes I have fully participated in the care of the patient.: Yes I have reviewed all pertinent clinical information, including history, physical exam and plan: Yes Notes (Text): 10/20/17 14:49 I have seen and examined patient with GI fellow and certified medical coder. She remains in critical care unit, intubated, though no longer on vasopressor support. No reported abdominal pain, vomiting, fever/chills. Tolerating tube feeding without difficulty. Per nursing staff, one dark colored bowel movement overnight. Review of vitals shows hypotension, tachycardia. DM / HTN CAD / CABG Aortic stenosis s/p ICD Hypothyroidism History of breast cancer UTI Acute small bowel ischemia s/p surgical resection Melena s/p enteroscopy showing anastomotic ulcer with surrounding mucosal changes consistent with ischemia - Continue with tube feeding as tolerated - Continue with antibiotic therapy - Ventilator management as per critical care team - H/H stable, continue to monitor - Continue with PPI therapy - Follow up cardiology recommendations regarding resuming anticoagulation - Follow up surgical recommendations regarding ischemic small bowel - No further planned GI interventions, will sign off case. Please reconsult as necessary, thank you.
--- NOTE | 2017-10-20 08:46 | CARD ---
APPROVED REPORT EKG Measurement Heart [id number] ID [id number] <Conclusion> Sinus tachycardia with frequent premature ventricular complexes Anteroseptal infarct, age undetermined ST & T wave abnormality, consider lateral ischemia Abnormal ECG
--- NOTE | 2017-10-20 08:58 | CARD ---
APPROVED REPORT EKG Measurement Heart [id number] <Conclusion> Undetermined rhythm baseline precludes accurate assesment Abnormal ECG
--- NOTE | 2017-10-20 09:24 | RAD ---
Chest x-ray single frontal view History: Shortness of breath. Comparison: 10/19/2017 Findings: Lines and tubes in stable position. Small curvilinear radiopaque density seen at the right lung apex may be external. Moderate venous congestion. Status post median sternotomy and CABG. Cardiomegaly. Calcification at the aortic knob. Right-sided pacemaker. Impression: Lines and tubes in stable position. Small curvilinear radiopaque density seen at the right lung apex may be external. Moderate venous congestion. Status post median sternotomy and CABG. Cardiomegaly.
--- NOTE | 2017-10-20 09:55 | CP.PCM.PN ---
<Maynor Jon - Last Filed: 10/20/17 10:30> Subjective - Date & Time of Evaluation Date of Evaluation: 10/20/17 Time of Evaluation: 09:57 - Subjective Subjective: Cardiology progress note for Dr. Childs - Maynor Jon DO PGY - 1 Patient seen and examined at bedside. Per nursing, one bout of blackish- greenish stool last night. Other than that, patient is still upset about her intubation, but denies any symptoms at this time. Objective - Vital Signs/Intake and Output Vital Signs (last 24 hours): Temp Pulse Resp BP Pulse Ox 97.6 F 108 H 26 H 99/42 L 100 10/20/17 08:00 10/20/17 08:58 10/20/17 08:58 10/20/17 09:00 10/20/17 08:58 Intake and Output: 10/20/17 10/20/17 06:59 18:59 Intake Total 1380 470 Output Total 630 105 Balance 750 365 - Medications Medications: Current Medications Acetaminophen (Tylenol 325mg Tab) 650 mg PO Q6 PRN PRN Reason: Fever >100.4 F Albuterol/Ipratropium (Duoneb 3 Mg/0.5 Mg (3 Ml) Ud) 3 ml INH RQ6 [facility] Last Admin: 10/20/17 07:38 Dose: 3 ml Diltiazem HCl (Cardizem) 60 mg PO Q6 TIM Last Admin: 10/20/17 05:57 Dose: 60 mg Hydromorphone HCl (Dilaudid) 1 mg IVP Q4H PRN PRN Reason: Anxiety Last Admin: 10/18/17 22:30 Dose: 1 mg Metronidazole (Flagyl) 500 mg in 100 mls @ 100 mls/hr IVPB Q8 TIM Last Admin: 10/20/17 06:01 Dose: 100 mls/hr Meropenem 1 gm/ Sodium (Chloride) 100 mls @ 100 mls/hr IVPB Q8H [facility] Last Admin: 10/20/17 05:24 Dose: 100 mls/hr Norepinephrine Bitartrate 8 mg (/ Sodium Chloride) 258 mls @ 7.74 mls/hr IV .Q24H PRN; Protocol; 4 MCG/MIN PRN Reason: TITRATE PER MD ORDER Last Titration: 10/19/17 15:05 Dose: 0 mcg/min, 0 mls/hr Insulin Human Regular (Novolin R) 0 unit SC Q6H TIM PRN Reason: Protocol Last Admin: 10/20/17 06:15 Dose: Not Given Levothyroxine Sodium (Synthroid) 50 mcg PO DAILY@0630 [facility] Last Admin: 10/20/17 06:01 Dose: 50 mcg Lorazepam (Ativan) 2 mg IVP Q6H PRN PRN Reason: Anxiety Losartan Potassium (Cozaar) 100 mg PO DAILY [facility] Last Admin: 10/19/17 09:22 Dose: 100 mg Metoprolol Tartrate (Lopressor) 25 mg PO BID [facility] Last Admin: 10/19/17 18:40 Dose: Not Given Mupirocin (Bactroban Ointment) 0 gm TOP BID [facility] Last Admin: 10/19/17 18:36 Dose: 1 gm Ondansetron HCl (Zofran Inj) 4 mg IVP Q6H PRN PRN Reason: Nausea/Vomiting Last Admin: 10/10/17 21:10 Dose: 4 mg Pantoprazole Sodium (Protonix Inj) 40 mg IVP Q12H [facility] Polyethylene Glycol (Miralax) 17 gm PO BID PRN PRN Reason: Constipation Last Admin: 10/07/17 10:14 Dose: 17 gm Rosuvastatin Calcium (Crestor) 5 mg NG HS [facility] Last Admin: 10/19/17 21:17 Dose: 5 mg Saccharomyces Boulardii (Florastor) 250 mg NG BID [facility] Last Admin: 10/19/17 18:35 Dose: 250 mg Vitamin A (Vitamin A & D Oint Ud Foilpak) 0.5 ea TOP Q4 [facility] Last Admin: 10/20/17 08:44 Dose: 0.5 ea - Labs Labs: 10/20/17 06:32 10/20/17 06:32 PT 14.3 SECONDS (9.7-12.2) H 10/17/17 22:24 INR 1.2 10/17/17 22:24 APTT 27 SECONDS (21-34) 10/17/17 22:24 - Additional Findings Additional findings: Physical Exam: Vital Signs as below Const'l: +Patient intubated, oriented x 3, dyspnea, is upset about her present condition Head/Neck: neck supple, no jvd, trachea midline, carotid midline, no cervical/head mass Eyes: pupils equally reactive to light and accommodation, nonicteric sclera, extraocular intact ENT: auditory acuity grossly intact, throat not congested, no nasal deformity Cardio: +Regular rhythm; +scar on chest wall on left and right sides, regular rate, regular rhythm, no murmurs rubs gallops, no carotid bruit, normal s1, s2 Pulm: no accessory muscle use, equal normal breath sounds bilaterally, clear to ausculation bilaterally Abd: +Abdominal incision site is clean, dry, intact; +obesity limiting exam, +slightly diminished bowel sounds in lower quadrants - resolved; soft non tender non-distended, no palpable masses Derm: no rashes, no ulcers, no lesions Extr: no edema, no cyanosis, no calf tenderness, no lesions, no varicosities Neuro: cranial nerves II-XII grossly intact, upper extremity and lower extremity 5/5 muscle strength bilaterally, no loss of sensation in upper extremities, lower extremities bilaterally and core Assessment and Plan - Assessment and Plan (Free Text) Assessment: For extensive Assessment and Plan history, please see note from 10/18, at the bottom in italics. Acute Assessments and Plan: 77 year old female with extensive cardiac history presented with chest pain on this admission, ACS ruled out, Cath performed. Patient also had new onset atrial fibrillation which has now resolved with diltiazem, amiodarone, and metoprolol. Patient had a code blue on 10/17/17 for pulselessness and respiratory distress. Patient was brought to [facility] with Bicarb and Epi. Diminished pulse and dyspnea are likely 2/2 GI bleed, as patient has had black, tarry stools for a couple of days. Eliquis on hold, Dr. Boland has performed EGD - please see findings in his note. New-Onset Atrial Fibrillation - Resolved - Rate control: Metoprolol 5 q6 - Rhythm management: Diltiazem and Amiodarone *Patient LFT's are fine and no signs of pulmonary fibrosis. However, her TSH is above normal limits. Observe. - Anticoagulation - Eliquis 5 BID on hold secondary to GI bleed Blood Loss Anemia 2/2 Acute GI Bleed - Hold Eliquis - Mgmt per primary, surgery, and GI *Consider other sources of bleed - patient's hemoglobin is steadily dropping Dyspnea, likely 2/2 to Blood Loss Anemia - Patient given 2 units of blood 10/18, feels better now - but hemoglobin is dropping. Patient is still intubated - Rest of management per ICU and GI Ischemic Bowel s/p 2 ft of small bowel resection - Heparin drip stopped - Management per ICU and Surgery Hypernatremia likely 2/2 hypodipsia - Trending upward - patient has not had any PO intake, and is subjectively very thirsty - I ordered urine osm (593) urine na (149); Serum osm ordered - Clinically and based on history, Hypernatremia is likely 2/2 decreased free water in take - Per ICU management - consider light hydration Assessment and Plan History: - Pacemaker interrogated by sales representative wire rope from [email or web address]. Patient's Pacemaker is functioning appropriately, is trying to compensate for patient's irregular rhythm - Latest EKG shows Sinus Tachy with PVC's. On exam, patient HR is NSR with HR of 80s-90s <Babak Childs - Last Filed: 10/21/17 01:56> Objective - Vital Signs/Intake and Output Vital Signs (last 24 hours): Temp Pulse Resp BP Pulse Ox 97.6 F 107 H 17 115/51 L 96 10/20/17 20:00 10/21/17 00:00 10/21/17 00:00 10/20/17 23:59 10/21/17 00:00 Intake and Output: 10/20/17 10/21/17 18:59 06:59 Intake Total 740 0 Output Total 795 55 Balance -55 -55 - Medications Medications: Current Medications Acetaminophen (Tylenol 325mg Tab) 650 mg PO Q6 PRN PRN Reason: Fever >100.4 F Albuterol/Ipratropium (Duoneb 3 Mg/0.5 Mg (3 Ml) Ud) 3 ml INH RQ6 [facility] Last Admin: 10/21/17 01:23 Dose: 3 ml Diltiazem HCl (Cardizem) 60 mg PO Q6 TIM Last Admin: 10/21/17 00:02 Dose: 60 mg Metronidazole (Flagyl) 500 mg in 100 mls @ 100 mls/hr IVPB Q8 TIM Last Admin: 10/20/17 21:52 Dose: 100 mls/hr Meropenem 1 gm/ Sodium (Chloride) 100 mls @ 100 mls/hr IVPB Q8H [facility] Last Admin: 10/20/17 21:00 Dose: 100 mls/hr Insulin Human Regular (Novolin R) 0 unit SC Q6H TIM PRN Reason: Protocol Last Admin: 10/20/17 17:51 Dose: Not Given Levothyroxine Sodium (Synthroid) 50 mcg PO DAILY@0630 [facility] Last Admin: 10/20/17 06:01 Dose: 50 mcg Losartan Potassium (Cozaar) 100 mg PO DAILY [facility] Last Admin: 10/20/17 10:12 Dose: Not Given Mupirocin (Bactroban Ointment) 0 gm TOP BID [facility] Last Admin: 10/20/17 17:50 Dose: 1 gm Ondansetron HCl (Zofran Inj) 4 mg IVP Q6H PRN PRN Reason: Nausea/Vomiting Last Admin: 10/10/17 21:10 Dose: 4 mg Pantoprazole Sodium (Protonix Inj) 40 mg IVP Q12H [facility] Last Admin: 10/20/17 21:01 Dose: 40 mg Polyethylene Glycol (Miralax) 17 gm PO BID PRN PRN Reason: Constipation Last Admin: 10/07/17 10:14 Dose: 17 gm Rosuvastatin Calcium (Crestor) 5 mg NG HS [facility] Last Admin: 10/20/17 21:01 Dose: 5 mg Saccharomyces Boulardii (Florastor) 250 mg NG BID [facility] Last Admin: 10/20/17 17:50 Dose: 250 mg Vitamin A (Vitamin A & D Oint Ud Foilpak) 0.5 ea TOP Q4 [facility] Last Admin: 10/21/17 00:00 Dose: 0.5 ea - Labs Labs: 10/20/17 16:10 10/20/17 06:32 PT 14.3 SECONDS (9.7-12.2) H 10/17/17 22:24 INR 1.2 10/17/17 22:24 APTT 27 SECONDS (21-34) 10/17/17 22:24 Assessment and Plan (1) Chest discomfort Status: Acute (2) Chest pain Status: Acute (3) Hypertension Status: Acute Attending/Attestation - Attestation I have personally seen and examined this patient.: Yes I have fully participated in the care of the patient.: Yes I have reviewed all pertinent clinical information, including history, physical exam and plan: Yes
[2017-10-20] MEDS: Saccharomyces Boulardi 250 mg Cap NG SCH ×2 (10:12→17:50)
--- NOTE | 2017-10-20 11:50 | CP.CCUPN ---
<Tommy Chang - Last Filed: 10/20/17 12:38> CCU Subjective - Physician Review Subjective (Free Text): 10/20/17 11:49 patient seen and examined today. tolerating 40 FiO2 CPAP trial plan for extubation today CCU Objective - Vital Signs / Intake & Output Vital Signs (Last 4 hours): Vital Signs Temp Pulse Resp BP Pulse Ox 10/20/17 11:00 101 H 27 H 99 10/20/17 10:59 107 H 22 105/46 L 99 10/20/17 10:09 117 H 15 96/42 L 98 10/20/17 10:00 123 H 19 98 10/20/17 09:59 121 H 17 103/49 L 98 10/20/17 09:00 109 H 28 H 99/42 L 100 10/20/17 08:58 108 H 26 H 100 10/20/17 08:00 97.6 F 113 H 13 88/52 L 97 Intake and Output (Last 8hrs): Intake & Output 10/19/17 10/20/17 10/20/17 22:59 06:59 14:59 Intake Total 1105 790 540 Output Total 450 460 515 Balance 655 330 25 Weight 190 lb 7.67 oz Intake: IV 30 Intake, IV Amount 380 80 140 Left Distal Port Internal 200 100 Jugular Left Medial Port Internal 30 Jugular Left Proximal Port - 80 80 10 Distal Port Left Proximal Port 100 0 Internal Jugular Oral 280 Tube Feeding 195 210 120 Other 500 500 Output: Gastric Amount 350 Stomach 350 Urine 450 460 165 Urethral (Garrett) 450 460 165 Other: # Bowel Movements 0 0 0 - Physical Exam Head: Positive for: Atraumatic, Normocephalic Pupils: Positive for: PERRL Extroacular Muscles: Positive for: EOMI Conjunctiva: Positive for: Normal Mouth: Positive for: Moist Mucous Membranes Respiratory/Chest: Positive for: Clear to Auscultation, Good Air Exchange Cardiovascular: Positive for: Regular Rate and Rhythm, Murmurs, Normal S1, S2 Abdomen: Positive for: Normal Bowel Sounds. Negative for: Tenderness, Distention, Peritoneal Signs Skin: Positive for: Warm Psychiatric: Positive for: Alert - Medications Active Medications: Active Medications Generic Name Dose Route Start Last Admin Trade Name Freq PRN Reason Stop Dose Admin Acetaminophen 650 mg 10/11/17 10:17 Tylenol 325mg Tab PO Q6 PRN Fever >100.4 F Albuterol/Ipratropium 3 ml 10/17/17 14:00 10/20/17 07:38 Duoneb 3 Mg/0.5 Mg (3 Ml) Ud INH 3 ml RQ6 TIM Administration Diltiazem HCl 60 mg 10/19/17 10:20 10/20/17 11:28 Cardizem PO Not Given Q6 TIM Hydromorphone HCl 1 mg 10/17/17 19:00 10/18/17 22:30 Dilaudid IVP 1 mg Q4H PRN Administration Anxiety Metronidazole 500 mg in 100 mls @ 100 mls/hr 10/07/17 22:00 10/20/17 06:01 Flagyl IVPB 100 mls/hr Q8 TIM Administration Meropenem 1 gm/ Sodium 100 mls @ 100 mls/hr 10/10/17 14:00 10/20/17 05:24 Chloride IVPB 100 mls/hr Q8H TIM Administration Insulin Human Regular 0 unit 10/20/17 00:00 10/20/17 06:15 Novolin R SC Not Given Q6H [facility] Protocol Levothyroxine Sodium 50 mcg 10/12/17 06:30 10/20/17 06:01 Synthroid PO 50 mcg DAILY@0630 TIM Administration Losartan Potassium 100 mg 10/12/17 10:00 10/20/17 10:12 Cozaar PO Not Given DAILY [facility] Mupirocin 0 gm 10/16/17 18:45 10/20/17 10:13 Bactroban Ointment TOP 1 gm BID TIM Administration Ondansetron HCl 4 mg 10/07/17 19:28 10/10/17 21:10 Zofran Inj IVP 4 mg Q6H PRN Administration Nausea/Vomiting Pantoprazole Sodium 40 mg 10/20/17 10:00 10/20/17 10:11 Protonix Inj IVP 40 mg Q12H TIM Administration Polyethylene Glycol 17 gm 10/06/17 15:08 10/07/17 10:14 Miralax PO 17 gm BID PRN Administration Constipation Rosuvastatin Calcium 5 mg 10/11/17 22:00 10/19/17 21:17 Crestor NG 5 mg HS TIM Administration Saccharomyces Boulardii 250 mg 10/10/17 11:15 10/20/17 10:12 Florastor NG 250 mg BID TIM Administration Vitamin A 0.5 ea 10/11/17 20:00 10/20/17 08:44 Vitamin A & D Oint Ud Foilpak TOP 0.5 ea Q4 TIM Administration - Patient Studies Lab Studies: Microbiology Studies 10/17/17 Unknown Stool Culture - Final Stool NO SALMONELLA, SHIGELLA OR CAMPYLOBACTER ISOLATED. Ova and Parasite Concentrate Exam - Final 10/18/17 13:00 Gram Stain - Final Trachasp Sputum Culture - Final Yeast Species 10/17/17 10:24 Gram Stain - Final Sputum Sputum Culture - Final Yeast Species 10/16/17 18:15 Blood Culture - Preliminary Blood-Venous NO GROWTH AFTER 3 DAYS 10/16/17 18:25 Blood Culture - Preliminary Blood-Venous NO GROWTH AFTER 3 DAYS 10/18/17 11:30 Blood Culture - Preliminary Blood NO GROWTH AFTER 24 HOURS 10/18/17 11:00 Blood Culture - Preliminary Blood NO GROWTH AFTER 24 HOURS 10/18/17 12:08 Urine Culture - Final Urine No Growth (<1,000 CFU/ML) Lab Studies 10/20/17 10/20/17 10/20/17 Range/Units 08:53 06:32 06:32 WBC 9.0 (4.8-10.8) K/uL RBC 3.27 L (3.80-5.20) Mil/uL Hgb 9.8 L (11.0-16.0) g/dL Hct 29.2 L (34.0-47.0) % MCV 89.3 (81.0-99.0) fL MCH 30.0 (27.0-31.0) pg MCHC 33.6 (33.0-37.0) g/dL RDW 15.1 H (11.5-14.5) % Plt Count 339 (130-400) K/uL MPV 9.3 (7.2-11.7) fL Neut % (Auto) 71.6 (50.0-75.0) % Lymph % (Auto) 14.7 L (20.0-40.0) % [place] % (Auto) 10.3 H (0.0-10.0) % Eos % (Auto) 2.5 (0.0-4.0) % Baso % (Auto) 0.9 (0.0-2.0) % Neut # (Auto) 6.5 (1.8-7.0) K/uL Lymph # (Auto) 1.3 (1.0-4.3) K/uL [place] # (Auto) 0.9 H (0.0-0.8) K/uL Eos # (Auto) 0.2 (0.0-0.7) K/uL Baso # (Auto) 0.1 (0.0-0.2) K/uL Puncture Site pCO2 (35-45) mm/Hg pO2 (80-100) mm/Hg HCO3 (21-28) mmol/L ABG pH (7.35-7.45) ABG Total CO2 (22-28) mmol/L ABG O2 Saturation (95-98) % ABG Base Excess (-2.0-3.0) mmol/L ABG Hemoglobin (11.7-17.4) g/dL ABG Carboxyhemoglobin (0.5-1.5) % POC ABG HHb (Measured) (0.0-5.0) % ABG Methemoglobin (0.0-3.0) % Dayron Test A-a O2 Difference mm/Hg Respiratory Index Hgb O2 Saturation (95.0-98.0) % Vent Mode Mechanical Rate FiO2 % Tidal Volume PEEP Sodium 153 H (132-148) mmol/L Potassium 3.5 L (3.6-5.2) mmol/L Chloride 122 H (98-107) mmol/L Carbon Dioxide 28 (22-30) mmol/L Anion Gap 7 L (10-20) BUN 22 H (7-17) mg/dL Creatinine 0.9 (0.7-1.2) mg/dL Est GFR ( Amer) > 60 Est GFR (Non-Af Amer) > 60 POC Glucose (mg/dL) (65-110) mg/dL Random Glucose 70 (65-105) mg/dL Serum Osmolality 328 H (272-300) mosm/kg Calcium 8.2 L (8.6-10.4) mg/dl Phosphorus 2.6 (2.5-4.5) mg/dL Magnesium 1.8 (1.6-2.3) mg/dL Total Bilirubin 0.4 (0.2-1.3) mg/dL AST 31 (14-36) U/L ALT 44 (9-52) U/L Alkaline Phosphatase 107 (38-126) U/L Total Protein 4.8 L (6.3-8.3) g/dL Albumin 2.2 L (3.5-5.0) g/dL Globulin 2.6 (2.2-3.9) gm/dL Albumin/Globulin Ratio 0.8 L (1.0-2.1) 10/20/17 10/20/17 10/19/17 Range/Units 06:05 04:57 23:39 WBC (4.8-10.8) K/uL RBC (3.80-5.20) Mil/uL Hgb (11.0-16.0) g/dL Hct (34.0-47.0) % MCV (81.0-99.0) fL MCH (27.0-31.0) pg MCHC (33.0-37.0) g/dL RDW (11.5-14.5) % Plt Count (130-400) K/uL MPV (7.2-11.7) fL Neut % (Auto) (50.0-75.0) % Lymph % (Auto) (20.0-40.0) % [place] % (Auto) (0.0-10.0) % Eos % (Auto) (0.0-4.0) % Baso % (Auto) (0.0-2.0) % Neut # (Auto) (1.8-7.0) K/uL Lymph # (Auto) (1.0-4.3) K/uL [place] # (Auto) (0.0-0.8) K/uL Eos # (Auto) (0.0-0.7) K/uL Baso # (Auto) (0.0-0.2) K/uL Puncture Site Rb pCO2 34 L (35-45) mm/Hg pO2 140 H (80-100) mm/Hg HCO3 24.9 (21-28) mmol/L ABG pH 7.45 (7.35-7.45) ABG Total CO2 24.6 (22-28) mmol/L ABG O2 Saturation 98.4 H (95-98) % ABG Base Excess -0.1 (-2.0-3.0) mmol/L ABG Hemoglobin 9.5 L (11.7-17.4) g/dL ABG Carboxyhemoglobin 1.1 (0.5-1.5) % POC ABG HHb (Measured) 1.6 (0.0-5.0) % ABG Methemoglobin 0.8 (0.0-3.0) % Dayron Test Na A-a O2 Difference 245.0 mm/Hg Respiratory Index 1.8 Hgb O2 Saturation 96.5 (95.0-98.0) % Vent Mode Prvc Mechanical Rate 12 FiO2 60.0 % Tidal Volume 450 PEEP 5 Sodium (132-148) mmol/L Potassium (3.6-5.2) mmol/L Chloride (98-107) mmol/L Carbon Dioxide (22-30) mmol/L Anion Gap (10-20) BUN (7-17) mg/dL Creatinine (0.7-1.2) mg/dL Est GFR ( Amer) Est GFR (Non-Af Amer) POC Glucose (mg/dL) 81 72 (65-110) mg/dL Random Glucose (65-105) mg/dL Serum Osmolality (272-300) mosm/kg Calcium (8.6-10.4) mg/dl Phosphorus (2.5-4.5) mg/dL Magnesium (1.6-2.3) mg/dL Total Bilirubin (0.2-1.3) mg/dL AST (14-36) U/L ALT (9-52) U/L Alkaline Phosphatase (38-126) U/L Total Protein (6.3-8.3) g/dL Albumin (3.5-5.0) g/dL Globulin (2.2-3.9) gm/dL Albumin/Globulin Ratio (1.0-2.1) 10/19/17 10/19/17 Range/Units 17:52 11:48 WBC (4.8-10.8) K/uL RBC (3.80-5.20) Mil/uL Hgb (11.0-16.0) g/dL Hct (34.0-47.0) % MCV (81.0-99.0) fL MCH (27.0-31.0) pg MCHC (33.0-37.0) g/dL RDW (11.5-14.5) % Plt Count (130-400) K/uL MPV (7.2-11.7) fL Neut % (Auto) (50.0-75.0) % Lymph % (Auto) (20.0-40.0) % [place] % (Auto) (0.0-10.0) % Eos % (Auto) (0.0-4.0) % Baso % (Auto) (0.0-2.0) % Neut # (Auto) (1.8-7.0) K/uL Lymph # (Auto) (1.0-4.3) K/uL [place] # (Auto) (0.0-0.8) K/uL Eos # (Auto) (0.0-0.7) K/uL Baso # (Auto) (0.0-0.2) K/uL Puncture Site pCO2 (35-45) mm/Hg pO2 (80-100) mm/Hg HCO3 (21-28) mmol/L ABG pH (7.35-7.45) ABG Total CO2 (22-28) mmol/L ABG O2 Saturation (95-98) % ABG Base Excess (-2.0-3.0) mmol/L ABG Hemoglobin (11.7-17.4) g/dL ABG Carboxyhemoglobin (0.5-1.5) % POC ABG HHb (Measured) (0.0-5.0) % ABG Methemoglobin (0.0-3.0) % Dayron Test A-a O2 Difference mm/Hg Respiratory Index Hgb O2 Saturation (95.0-98.0) % Vent Mode Mechanical Rate FiO2 % Tidal Volume PEEP Sodium (132-148) mmol/L Potassium (3.6-5.2) mmol/L Chloride (98-107) mmol/L Carbon Dioxide (22-30) mmol/L Anion Gap (10-20) BUN (7-17) mg/dL Creatinine (0.7-1.2) mg/dL Est GFR ( Amer) Est GFR (Non-Af Amer) POC Glucose (mg/dL) 86 101 (65-110) mg/dL Random Glucose (65-105) mg/dL Serum Osmolality (272-300) mosm/kg Calcium (8.6-10.4) mg/dl Phosphorus (2.5-4.5) mg/dL Magnesium (1.6-2.3) mg/dL Total Bilirubin (0.2-1.3) mg/dL AST (14-36) U/L ALT (9-52) U/L Alkaline Phosphatase (38-126) U/L Total Protein (6.3-8.3) g/dL Albumin (3.5-5.0) g/dL Globulin (2.2-3.9) gm/dL Albumin/Globulin Ratio (1.0-2.1) Laboratory Results - last 24 hr 10/19/17 10/19/17 10/19/17 11:48 17:52 23:39 WBC RBC Hgb Hct MCV MCH MCHC RDW Plt Count MPV Neut % (Auto) Lymph % (Auto) [place] % (Auto) Eos % (Auto) Baso % (Auto) Neut # (Auto) Lymph # (Auto) [place] # (Auto) Eos # (Auto) Baso # (Auto) Puncture Site pCO2 pO2 HCO3 ABG pH ABG Total CO2 ABG O2 Saturation ABG Base Excess ABG Hemoglobin ABG Carboxyhemoglobin POC ABG HHb (Measured) ABG Methemoglobin Dayron Test A-a O2 Difference Respiratory Index Hgb O2 Saturation Vent Mode Mechanical Rate FiO2 Tidal Volume PEEP Sodium Potassium Chloride Carbon Dioxide Anion Gap BUN Creatinine Est GFR ( Amer) Est GFR (Non-Af Amer) POC Glucose (mg/dL) 101 86 72 Random Glucose Serum Osmolality Calcium Phosphorus Magnesium Total Bilirubin AST ALT Alkaline Phosphatase Total Protein Albumin Globulin Albumin/Globulin Ratio 10/20/17 10/20/17 10/20/17 04:57 06:05 06:32 WBC RBC Hgb Hct MCV MCH MCHC RDW Plt Count MPV Neut % (Auto) Lymph % (Auto) [place] % (Auto) Eos % (Auto) Baso % (Auto) Neut # (Auto) Lymph # (Auto) [place] # (Auto) Eos # (Auto) Baso # (Auto) Puncture Site Rb pCO2 34 L pO2 140 H HCO3 24.9 ABG pH 7.45 ABG Total CO2 24.6 ABG O2 Saturation 98.4 H ABG Base Excess -0.1 ABG Hemoglobin 9.5 L ABG Carboxyhemoglobin 1.1 POC ABG HHb (Measured) 1.6 ABG Methemoglobin 0.8 Dayron Test Na A-a O2 Difference 245.0 Respiratory Index 1.8 Hgb O2 Saturation 96.5 Vent Mode Prvc Mechanical Rate 12 FiO2 60.0 Tidal Volume 450 PEEP 5 Sodium 153 H Potassium 3.5 L Chloride 122 H Carbon Dioxide 28 Anion Gap 7 L BUN 22 H Creatinine 0.9 Est GFR ( Amer) > 60 Est GFR (Non-Af Amer) > 60 POC Glucose (mg/dL) 81 Random Glucose 70 Serum Osmolality Calcium 8.2 L Phosphorus 2.6 Magnesium 1.8 Total Bilirubin 0.4 AST 31 ALT 44 Alkaline Phosphatase 107 Total Protein 4.8 L Albumin 2.2 L Globulin 2.6 Albumin/Globulin Ratio 0.8 L 10/20/17 10/20/17 06:32 08:53 WBC 9.0 RBC 3.27 L Hgb 9.8 L Hct 29.2 L MCV 89.3 MCH 30.0 MCHC 33.6 RDW 15.1 H Plt Count 339 MPV 9.3 Neut % (Auto) 71.6 Lymph % (Auto) 14.7 L [place] % (Auto) 10.3 H Eos % (Auto) 2.5 Baso % (Auto) 0.9 Neut # (Auto) 6.5 Lymph # (Auto) 1.3 [place] # (Auto) 0.9 H Eos # (Auto) 0.2 Baso # (Auto) 0.1 Puncture Site pCO2 pO2 HCO3 ABG pH ABG Total CO2 ABG O2 Saturation ABG Base Excess ABG Hemoglobin ABG Carboxyhemoglobin POC ABG HHb (Measured) ABG Methemoglobin Dayron Test A-a O2 Difference Respiratory Index Hgb O2 Saturation Vent Mode Mechanical Rate FiO2 Tidal Volume PEEP Sodium Potassium Chloride Carbon Dioxide Anion Gap BUN Creatinine Est GFR ( Amer) Est GFR (Non-Af Amer) POC Glucose (mg/dL) Random Glucose Serum Osmolality 328 H Calcium Phosphorus Magnesium Total Bilirubin AST ALT Alkaline Phosphatase Total Protein Albumin Globulin Albumin/Globulin Ratio Fingerstick Blood Sugar Results: 81 Critical Care Progress Note - Nutrition Nutrition: Nutrition Category Date Time Status NPO Diet [DIET] Diets 10/18/17 Breakfast Active Assessment/Plan - Assessment and Plan (Free Text) Assessment: 77 year-old female, rate controlled atrial fibrillation, status post small bowel resection for ischemic bowel, status post code blue secondary to hypoperfusion from acute GI bleed. Plan: Psych: no acute issues Neuro: no acute issues Cards: Afib, rate controlled - anticoagulation Eloquis held due to ?GI bleed - Cardizem 60mg PO q6 will be increased to 90mg q6 - Losartan 100mg PO qd held this AM 10/21 low BP (96/42) - Levophed to be d/c'd - Crestor 5mg NG HS Pulm: intubated 10/18 s/p respiratory distress - CPAP trial today at 800 ml support - Extubation planned pending CPAP trial results - Duoneb 3.mg/0.5mg (3ml) UD 3ml INH q6 held this AM 10/21 hr 130s BPM GI: s/p bowel resection for ischemic bowel - Flagyl 500mg @ 100ml/hr IVPD q8 - NPO; glucerna feeding at 30 cc/hr - OG to suction - continue to taper off pressors - Meropenem 1g @ 100ml/hr IVPB q8 Renal: no acute issues Endo: hypothyroidism, DM - Synthroid 50mcg PO qd - Novolin SC q6 held this AM 10/21 low blood sugar of 76 Derm: superficial lacerations/ulcerations - Vitamin A & D Ointment Foilpak 0.5 each topical q4 - Bactroban ointment to left anterior upper leg near groin for laceration from garrett catheter PPx: - Protonix 40mg IVP q12 - Florastor 250mg (1 capsule) NG BID <Shiva Hastings - Last Filed: 10/20/17 18:13> CCU Subjective - Physician Review Critical Care Time Spent (in minutes): 40 CCU Objective - Vital Signs / Intake & Output Vital Signs (Last 4 hours): Vital Signs Temp Pulse Resp BP Pulse Ox 10/20/17 17:00 110 H 24 93 L 10/20/17 16:00 98.3 F 108 H 14 115/48 L 91 L 10/20/17 15:00 104 H 17 95 10/20/17 14:59 96 H 27 H 111/43 L 98 Intake and Output (Last 8hrs): Intake & Output 10/20/17 10/20/17 10/20/17 06:59 14:59 22:59 Intake Total 790 540 200 Output Total 460 635 120 Balance 330 -95 80 Weight 190 lb 7.67 oz Intake: Intake, IV Amount 80 140 200 Left Distal Port Internal 100 200 Jugular Left Medial Port Internal 30 0 Jugular Left Proximal Port - 80 10 Distal Port Left Proximal Port 0 0 Internal Jugular Oral 280 Tube Feeding 210 120 0 Other 500 Output: Gastric Amount 350 Stomach 350 Urine 460 285 120 Urethral (Garrett) 460 285 120 Other: # Bowel Movements 0 0 0 - Medications Active Medications: Active Medications Generic Name Dose Route Start Last Admin Trade Name Freq PRN Reason Stop Dose Admin Acetaminophen 650 mg 10/11/17 10:17 Tylenol 325mg Tab PO Q6 PRN Fever >100.4 F Albuterol/Ipratropium 3 ml 10/17/17 14:00 10/20/17 13:25 Duoneb 3 Mg/0.5 Mg (3 Ml) Ud INH 3 ml RQ6 TIM Administration Diltiazem HCl 60 mg 10/19/17 10:20 10/20/17 17:50 Cardizem PO 60 mg Q6 TIM Administration Metronidazole 500 mg in 100 mls @ 100 mls/hr 10/07/17 22:00 10/20/17 13:21 Flagyl IVPB 100 mls/hr Q8 TIM Administration Meropenem 1 gm/ Sodium 100 mls @ 100 mls/hr 10/10/17 14:00 10/20/17 13:22 Chloride IVPB 100 mls/hr Q8H TIM Administration Insulin Human Regular 0 unit 10/20/17 00:00 10/20/17 17:51 Novolin R SC Not Given Q6H TIM Protocol Levothyroxine Sodium 50 mcg 10/12/17 06:30 10/20/17 06:01 Synthroid PO 50 mcg DAILY@0630 TIM Administration Losartan Potassium 100 mg 10/12/17 10:00 10/20/17 10:12 Cozaar PO Not Given DAILY TIM Mupirocin 0 gm 10/16/17 18:45 10/20/17 17:50 Bactroban Ointment TOP 1 gm BID TIM Administration Ondansetron HCl 4 mg 10/07/17 19:28 10/10/17 21:10 Zofran Inj IVP 4 mg Q6H PRN Administration Nausea/Vomiting Pantoprazole Sodium 40 mg 10/20/17 10:00 10/20/17 10:11 Protonix Inj IVP 40 mg Q12H TIM Administration Polyethylene Glycol 17 gm 10/06/17 15:08 10/07/17 10:14 Miralax PO 17 gm BID PRN Administration Constipation Rosuvastatin Calcium 5 mg 10/11/17 22:00 10/19/17 21:17 Crestor NG 5 mg HS TIM Administration Saccharomyces Boulardii 250 mg 10/10/17 11:15 10/20/17 17:50 Florastor NG 250 mg BID TIM Administration Vitamin A 0.5 ea 10/11/17 20:00 10/20/17 16:49 Vitamin A & D Oint Ud Foilpak TOP 0.5 ea Q4 TIM Administration - Patient Studies Lab Studies: Microbiology Studies 10/18/17 11:30 Blood Culture - Preliminary Blood NO GROWTH AFTER 48 HOURS 10/18/17 11:00 Blood Culture - Preliminary Blood NO GROWTH AFTER 48 HOURS 10/17/17 Unknown Stool Culture - Final Stool NO SALMONELLA, SHIGELLA OR CAMPYLOBACTER ISOLATED. Ova and Parasite Concentrate Exam - Final 10/18/17 13:00 Gram Stain - Final Trachasp Sputum Culture - Final Yeast Species 10/17/17 10:24 Gram Stain - Final Sputum Sputum Culture - Final Yeast Species 10/16/17 18:15 Blood Culture - Preliminary Blood-Venous NO GROWTH AFTER 3 DAYS 10/16/17 18:25 Blood Culture - Preliminary Blood-Venous NO GROWTH AFTER 3 DAYS Lab Studies 10/20/17 10/20/17 10/20/17 Range/Units 17:28 16:10 16:08 WBC 8.0 (4.8-10.8) K/uL RBC 3.30 L (3.80-5.20) Mil/uL Hgb 9.7 L (11.0-16.0) g/dL Hct 29.5 L (34.0-47.0) % MCV 89.5 (81.0-99.0) fL MCH 29.5 (27.0-31.0) pg MCHC 33.0 (33.0-37.0) g/dL RDW 15.4 H (11.5-14.5) % Plt Count 360 (130-400) K/uL MPV 8.6 (7.2-11.7) fL Neut % (Auto) 72.9 (50.0-75.0) % Lymph % (Auto) 14.8 L (20.0-40.0) % [place] % (Auto) 9.6 (0.0-10.0) % Eos % (Auto) 2.1 (0.0-4.0) % Baso % (Auto) 0.6 (0.0-2.0) % Neut # (Auto) 5.8 (1.8-7.0) K/uL Lymph # (Auto) 1.2 (1.0-4.3) K/uL [place] # (Auto) 0.8 (0.0-0.8) K/uL Eos # (Auto) 0.2 (0.0-0.7) K/uL Baso # (Auto) 0.1 (0.0-0.2) K/uL Puncture Site Rba pCO2 31 L (35-45) mm/Hg pO2 73 L (80-100) mm/Hg HCO3 26.7 (21-28) mmol/L ABG pH 7.51 H (7.35-7.45) ABG Total CO2 25.7 (22-28) mmol/L ABG O2 Saturation 96.7 (95-98) % ABG Base Excess 2.3 (-2.0-3.0) mmol/L ABG Hemoglobin (11.7-17.4) g/dL ABG Carboxyhemoglobin (0.5-1.5) % POC ABG HHb (Measured) (0.0-5.0) % ABG Methemoglobin (0.0-3.0) % Dayron Test Na ABG Potassium 3.2 L (3.6-5.2) mmol/L A-a O2 Difference 173.0 mm/Hg Respiratory Index 2.4 Hgb O2 Saturation (95.0-98.0) % Glucose 82 (65-105) mg/dl Lactate 1.1 (0.7-2.1) mmol/L Vent Mode Mechanical Rate FiO2 40.0 % Tidal Volume PEEP Sodium 155.0 H (132-148) mmol/L Potassium (3.6-5.2) mmol/L Chloride 124.0 H (98-107) mmol/L Carbon Dioxide (22-30) mmol/L Anion Gap (10-20) BUN (7-17) mg/dL Creatinine (0.7-1.2) mg/dL Est GFR ( Amer) Est GFR (Non-Af Amer) POC Glucose (mg/dL) 78 (65-110) mg/dL Random Glucose (65-105) mg/dL Serum Osmolality (272-300) mosm/kg Calcium (8.6-10.4) mg/dl Phosphorus (2.5-4.5) mg/dL Magnesium (1.6-2.3) mg/dL Total Bilirubin (0.2-1.3) mg/dL AST (14-36) U/L ALT (9-52) U/L Alkaline Phosphatase (38-126) U/L Total Protein (6.3-8.3) g/dL Albumin (3.5-5.0) g/dL Globulin (2.2-3.9) gm/dL Albumin/Globulin Ratio (1.0-2.1) Arterial Blood Potassium 3.2 L (3.6-5.2) mmol/L 10/20/17 10/20/17 10/20/17 Range/Units 16:07 11:53 08:53 WBC (4.8-10.8) K/uL RBC (3.80-5.20) Mil/uL Hgb (11.0-16.0) g/dL Hct (34.0-47.0) % MCV (81.0-99.0) fL MCH (27.0-31.0) pg MCHC (33.0-37.0) g/dL RDW (11.5-14.5) % Plt Count (130-400) K/uL MPV (7.2-11.7) fL Neut % (Auto) (50.0-75.0) % Lymph % (Auto) (20.0-40.0) % [place] % (Auto) (0.0-10.0) % Eos % (Auto) (0.0-4.0) % Baso % (Auto) (0.0-2.0) % Neut # (Auto) (1.8-7.0) K/uL Lymph # (Auto) (1.0-4.3) K/uL [place] # (Auto) (0.0-0.8) K/uL Eos # (Auto) (0.0-0.7) K/uL Baso # (Auto) (0.0-0.2) K/uL Puncture Site pCO2 (35-45) mm/Hg pO2 (80-100) mm/Hg HCO3 (21-28) mmol/L ABG pH (7.35-7.45) ABG Total CO2 (22-28) mmol/L ABG O2 Saturation (95-98) % ABG Base Excess (-2.0-3.0) mmol/L ABG Hemoglobin (11.7-17.4) g/dL ABG Carboxyhemoglobin (0.5-1.5) % POC ABG HHb (Measured) (0.0-5.0) % ABG Methemoglobin (0.0-3.0) % Dayron Test ABG Potassium (3.6-5.2) mmol/L A-a O2 Difference mm/Hg Respiratory Index Hgb O2 Saturation (95.0-98.0) % Glucose (65-105) mg/dl Lactate (0.7-2.1) mmol/L Vent Mode Mechanical Rate FiO2 % Tidal Volume PEEP Sodium (132-148) mmol/L Potassium (3.6-5.2) mmol/L Chloride (98-107) mmol/L Carbon Dioxide (22-30) mmol/L Anion Gap (10-20) BUN (7-17) mg/dL Creatinine (0.7-1.2) mg/dL Est GFR ( Amer) Est GFR (Non-Af Amer) POC Glucose (mg/dL) 74 79 (65-110) mg/dL Random Glucose (65-105) mg/dL Serum Osmolality 328 H (272-300) mosm/kg Calcium (8.6-10.4) mg/dl Phosphorus (2.5-4.5) mg/dL Magnesium (1.6-2.3) mg/dL Total Bilirubin (0.2-1.3) mg/dL AST (14-36) U/L ALT (9-52) U/L Alkaline Phosphatase (38-126) U/L Total Protein (6.3-8.3) g/dL Albumin (3.5-5.0) g/dL Globulin (2.2-3.9) gm/dL Albumin/Globulin Ratio (1.0-2.1) Arterial Blood Potassium (3.6-5.2) mmol/L 10/20/17 10/20/17 10/20/17 Range/Units 06:32 06:32 06:05 WBC 9.0 (4.8-10.8) K/uL RBC 3.27 L (3.80-5.20) Mil/uL Hgb 9.8 L (11.0-16.0) g/dL Hct 29.2 L (34.0-47.0) % MCV 89.3 (81.0-99.0) fL MCH 30.0 (27.0-31.0) pg MCHC 33.6 (33.0-37.0) g/dL RDW 15.1 H (11.5-14.5) % Plt Count 339 (130-400) K/uL MPV 9.3 (7.2-11.7) fL Neut % (Auto) 71.6 (50.0-75.0) % Lymph % (Auto) 14.7 L (20.0-40.0) % [place] % (Auto) 10.3 H (0.0-10.0) % Eos % (Auto) 2.5 (0.0-4.0) % Baso % (Auto) 0.9 (0.0-2.0) % Neut # (Auto) 6.5 (1.8-7.0) K/uL Lymph # (Auto) 1.3 (1.0-4.3) K/uL [place] # (Auto) 0.9 H (0.0-0.8) K/uL Eos # (Auto) 0.2 (0.0-0.7) K/uL Baso # (Auto) 0.1 (0.0-0.2) K/uL Puncture Site pCO2 (35-45) mm/Hg pO2 (80-100) mm/Hg HCO3 (21-28) mmol/L ABG pH (7.35-7.45) ABG Total CO2 (22-28) mmol/L ABG O2 Saturation (95-98) % ABG Base Excess (-2.0-3.0) mmol/L ABG Hemoglobin (11.7-17.4) g/dL ABG Carboxyhemoglobin (0.5-1.5) % POC ABG HHb (Measured) (0.0-5.0) % ABG Methemoglobin (0.0-3.0) % Dayron Test ABG Potassium (3.6-5.2) mmol/L A-a O2 Difference mm/Hg Respiratory Index Hgb O2 Saturation (95.0-98.0) % Glucose (65-105) mg/dl Lactate (0.7-2.1) mmol/L Vent Mode Mechanical Rate FiO2 % Tidal Volume PEEP Sodium 153 H (132-148) mmol/L Potassium 3.5 L (3.6-5.2) mmol/L Chloride 122 H (98-107) mmol/L Carbon Dioxide 28 (22-30) mmol/L Anion Gap 7 L (10-20) BUN 22 H (7-17) mg/dL Creatinine 0.9 (0.7-1.2) mg/dL Est GFR ( Amer) > 60 Est GFR (Non-Af Amer) > 60 POC Glucose (mg/dL) 81 (65-110) mg/dL Random Glucose 70 (65-105) mg/dL Serum Osmolality (272-300) mosm/kg Calcium 8.2 L (8.6-10.4) mg/dl Phosphorus 2.6 (2.5-4.5) mg/dL Magnesium 1.8 (1.6-2.3) mg/dL Total Bilirubin 0.4 (0.2-1.3) mg/dL AST 31 (14-36) U/L ALT 44 (9-52) U/L Alkaline Phosphatase 107 (38-126) U/L Total Protein 4.8 L (6.3-8.3) g/dL Albumin 2.2 L (3.5-5.0) g/dL Globulin 2.6 (2.2-3.9) gm/dL Albumin/Globulin Ratio 0.8 L (1.0-2.1) Arterial Blood Potassium (3.6-5.2) mmol/L 10/20/17 10/19/17 10/19/17 Range/Units 04:57 23:39 17:52 WBC (4.8-10.8) K/uL RBC (3.80-5.20) Mil/uL Hgb (11.0-16.0) g/dL Hct (34.0-47.0) % MCV (81.0-99.0) fL MCH (27.0-31.0) pg MCHC (33.0-37.0) g/dL RDW (11.5-14.5) % Plt Count (130-400) K/uL MPV (7.2-11.7) fL Neut % (Auto) (50.0-75.0) % Lymph % (Auto) (20.0-40.0) % [place] % (Auto) (0.0-10.0) % Eos % (Auto) (0.0-4.0) % Baso % (Auto) (0.0-2.0) % Neut # (Auto) (1.8-7.0) K/uL Lymph # (Auto) (1.0-4.3) K/uL [place] # (Auto) (0.0-0.8) K/uL Eos # (Auto) (0.0-0.7) K/uL Baso # (Auto) (0.0-0.2) K/uL Puncture Site Rb pCO2 34 L (35-45) mm/Hg pO2 140 H (80-100) mm/Hg HCO3 24.9 (21-28) mmol/L ABG pH 7.45 (7.35-7.45) ABG Total CO2 24.6 (22-28) mmol/L ABG O2 Saturation 98.4 H (95-98) % ABG Base Excess -0.1 (-2.0-3.0) mmol/L ABG Hemoglobin 9.5 L (11.7-17.4) g/dL ABG Carboxyhemoglobin 1.1 (0.5-1.5) % POC ABG HHb (Measured) 1.6 (0.0-5.0) % ABG Methemoglobin 0.8 (0.0-3.0) % Dayron Test Na ABG Potassium (3.6-5.2) mmol/L A-a O2 Difference 245.0 mm/Hg Respiratory Index 1.8 Hgb O2 Saturation 96.5 (95.0-98.0) % Glucose (65-105) mg/dl Lactate (0.7-2.1) mmol/L Vent Mode Prvc Mechanical Rate 12 FiO2 60.0 % Tidal Volume 450 PEEP 5 Sodium (132-148) mmol/L Potassium (3.6-5.2) mmol/L Chloride (98-107) mmol/L Carbon Dioxide (22-30) mmol/L Anion Gap (10-20) BUN (7-17) mg/dL Creatinine (0.7-1.2) mg/dL Est GFR ( Amer) Est GFR (Non-Af Amer) POC Glucose (mg/dL) 72 86 (65-110) mg/dL Random Glucose (65-105) mg/dL Serum Osmolality (272-300) mosm/kg Calcium (8.6-10.4) mg/dl Phosphorus (2.5-4.5) mg/dL Magnesium (1.6-2.3) mg/dL Total Bilirubin (0.2-1.3) mg/dL AST (14-36) U/L ALT (9-52) U/L Alkaline Phosphatase (38-126) U/L Total Protein (6.3-8.3) g/dL Albumin (3.5-5.0) g/dL Globulin (2.2-3.9) gm/dL Albumin/Globulin Ratio (1.0-2.1) Arterial Blood Potassium (3.6-5.2) mmol/L Laboratory Results - last 24 hr 10/19/17 10/19/17 10/20/17 17:52 23:39 04:57 WBC RBC Hgb Hct MCV MCH MCHC RDW Plt Count MPV Neut % (Auto) Lymph % (Auto) [place] % (Auto) Eos % (Auto) Baso % (Auto) Neut # (Auto) Lymph # (Auto) [place] # (Auto) Eos # (Auto) Baso # (Auto) Puncture Site Rb pCO2 34 L pO2 140 H HCO3 24.9 ABG pH 7.45 ABG Total CO2 24.6 ABG O2 Saturation 98.4 H ABG Base Excess -0.1 ABG Hemoglobin 9.5 L ABG Carboxyhemoglobin 1.1 POC ABG HHb (Measured) 1.6 ABG Methemoglobin 0.8 Dayron Test Na ABG Potassium A-a O2 Difference 245.0 Respiratory Index 1.8 Hgb O2 Saturation 96.5 Glucose Lactate Vent Mode Prvc Mechanical Rate 12 FiO2 60.0 Tidal Volume 450 PEEP 5 Sodium Potassium Chloride Carbon Dioxide Anion Gap BUN Creatinine Est GFR ( Amer) Est GFR (Non-Af Amer) POC Glucose (mg/dL) 86 72 Random Glucose Serum Osmolality Calcium Phosphorus Magnesium Total Bilirubin AST ALT Alkaline Phosphatase Total Protein Albumin Globulin Albumin/Globulin Ratio Arterial Blood Potassium 10/20/17 10/20/17 10/20/17 06:05 06:32 06:32 WBC 9.0 RBC 3.27 L Hgb 9.8 L Hct 29.2 L MCV 89.3 MCH 30.0 MCHC 33.6 RDW 15.1 H Plt Count 339 MPV 9.3 Neut % (Auto) 71.6 Lymph % (Auto) 14.7 L [place] % (Auto) 10.3 H Eos % (Auto) 2.5 Baso % (Auto) 0.9 Neut # (Auto) 6.5 Lymph # (Auto) 1.3 [place] # (Auto) 0.9 H Eos # (Auto) 0.2 Baso # (Auto) 0.1 Puncture Site pCO2 pO2 HCO3 ABG pH ABG Total CO2 ABG O2 Saturation ABG Base Excess ABG Hemoglobin ABG Carboxyhemoglobin POC ABG HHb (Measured) ABG Methemoglobin Dayron Test ABG Potassium A-a O2 Difference Respiratory Index Hgb O2 Saturation Glucose Lactate Vent Mode Mechanical Rate FiO2 Tidal Volume PEEP Sodium 153 H Potassium 3.5 L Chloride 122 H Carbon Dioxide 28 Anion Gap 7 L BUN 22 H Creatinine 0.9 Est GFR ( Amer) > 60 Est GFR (Non-Af Amer) > 60 POC Glucose (mg/dL) 81 Random Glucose 70 Serum Osmolality Calcium 8.2 L Phosphorus 2.6 Magnesium 1.8 Total Bilirubin 0.4 AST 31 ALT 44 Alkaline Phosphatase 107 Total Protein 4.8 L Albumin 2.2 L Globulin 2.6 Albumin/Globulin Ratio 0.8 L Arterial Blood Potassium 10/20/17 10/20/17 10/20/17 08:53 11:53 16:07 WBC RBC Hgb Hct MCV MCH MCHC RDW Plt Count MPV Neut % (Auto) Lymph % (Auto) [place] % (Auto) Eos % (Auto) Baso % (Auto) Neut # (Auto) Lymph # (Auto) [place] # (Auto) Eos # (Auto) Baso # (Auto) Puncture Site pCO2 pO2 HCO3 ABG pH ABG Total CO2 ABG O2 Saturation ABG Base Excess ABG Hemoglobin ABG Carboxyhemoglobin POC ABG HHb (Measured) ABG Methemoglobin Dayron Test ABG Potassium A-a O2 Difference Respiratory Index Hgb O2 Saturation Glucose Lactate Vent Mode Mechanical Rate FiO2 Tidal Volume PEEP Sodium Potassium Chloride Carbon Dioxide Anion Gap BUN Creatinine Est GFR ( Amer) Est GFR (Non-Af Amer) POC Glucose (mg/dL) 79 74 Random Glucose Serum Osmolality 328 H Calcium Phosphorus Magnesium Total Bilirubin AST ALT Alkaline Phosphatase Total Protein Albumin Globulin Albumin/Globulin Ratio Arterial Blood Potassium 10/20/17 10/20/17 10/20/17 16:08 16:10 17:28 WBC 8.0 RBC 3.30 L Hgb 9.7 L Hct 29.5 L MCV 89.5 MCH 29.5 MCHC 33.0 RDW 15.4 H Plt Count 360 MPV 8.6 Neut % (Auto) 72.9 Lymph % (Auto) 14.8 L [place] % (Auto) 9.6 Eos % (Auto) 2.1 Baso % (Auto) 0.6 Neut # (Auto) 5.8 Lymph # (Auto) 1.2 [place] # (Auto) 0.8 Eos # (Auto) 0.2 Baso # (Auto) 0.1 Puncture Site Rba pCO2 31 L pO2 73 L HCO3 26.7 ABG pH 7.51 H ABG Total CO2 25.7 ABG O2 Saturation 96.7 ABG Base Excess 2.3 ABG Hemoglobin ABG Carboxyhemoglobin POC ABG HHb (Measured) ABG Methemoglobin Dayron Test Na ABG Potassium 3.2 L A-a O2 Difference 173.0 Respiratory Index 2.4 Hgb O2 Saturation Glucose 82 Lactate 1.1 Vent Mode Mechanical Rate FiO2 40.0 Tidal Volume PEEP Sodium 155.0 H Potassium Chloride 124.0 H Carbon Dioxide Anion Gap BUN Creatinine Est GFR ( Amer) Est GFR (Non-Af Amer) POC Glucose (mg/dL) 78 Random Glucose Serum Osmolality Calcium Phosphorus Magnesium Total Bilirubin AST ALT Alkaline Phosphatase Total Protein Albumin Globulin Albumin/Globulin Ratio Arterial Blood Potassium 3.2 L Critical Care Progress Note - Nutrition Nutrition: Nutrition Category Date Time Status NPO Diet [DIET] Diets 10/20/17 Dinner Active Assessment/Plan (1) Respiratory failure with hypoxia Current Visit: Yes Status: Resolved - Assessment and Plan (Free Text) Plan: Patient seen and examined at bedside. Patient tolerated CPAP -hypoxic respiratory failure: extubated, continue on aerosol -A-fib rate controlled, not on AC 2nd Gi bleed -PT/OT -speech and swallow eval in AM -d/c gerry veloz time 40 minutes
--- NOTE | 2017-10-20 12:15 | PN ---
DATE: 10/20/2017 NEUROLOGICAL PROBLEM: Change in mental status and possible hypoperfusion syndrome versus metabolic encephalopathy. PHYSICAL EXAMINATION: VITAL SIGNS: Blood pressure 102/50, mean arterial pressure of 66, pulse rate 119, respirations 16, and temperature is afebrile. GENERAL: The patient is more awake, alert and oriented to person. The patient is still intubated, highly communicable, moving all four extremities, and follows commands. NEUROLOGIC: There is no focal weakness. Deep tendon reflexes are absent as before. Plantars are mute. ASSESSMENT AND PLAN: The patient is neurologically stable at present. No further workup is needed; however, requested electroencephalogram is still pending. I would like her to have an electroencephalogram also. When medically stable, the patient should have MRI of the brain, which can be done after stabilization from a medical point of view. Stiven Mazariegos MD
[2017-10-20 16:13] LABS: ARTERIAL BLOOD GAS HCO3 26.7 mmol/L (21-28); ARTERIAL BLOOD GAS O2 SAT 96.7 % (95-98); ARTERIAL BLOOD GAS PCO2 31 mm/Hg (35-45); ARTERIAL BLOOD GAS PH 7.51 (7.35-7.45); ARTERIAL BLOOD GAS PO2 73 mm/Hg (80-100); ARTERIAL BLOOD GAS TCO2 25.7 mmol/L (22-28)
[2017-10-20 16:16] LABS: BASO # 0.1 K/uL (0.0-0.2); BASO % 0.6 % (0.0-2.0); EOS # 0.2 K/uL (0.0-0.7); EOS % 2.1 % (0.0-4.0); HEMOGLOBIN 9.7 g/dL (11.0-16.0); LYMPH # 1.2 K/uL (1.0-4.3); LYMPH % 14.8 % (20.0-40.0); MEAN CELL VOLUME 89.5 fL (81.0-99.0); MEAN CORPUSCULAR HEMOGLOBIN 29.5 pg (27.0-31.0); MEAN PLATELET VOLUME 8.6 fL (7.2-11.7); MONO # 0.8 K/uL (0.0-0.8); MONO % 9.6 % (0.0-10.0); NEUT # 5.8 K/uL (1.8-7.0); NEUT % 72.9 % (50.0-75.0); RBC 3.3 Mil/uL (3.80-5.20); RED CELL DISTRIBUTION WIDTH 15.4 % (11.5-14.5)
--- NOTE | 2017-10-20 18:32 | CP.PCM.PN ---
Subjective - Date & Time of Evaluation Date of Evaluation: 10/20/17 Time of Evaluation: 15:00 - Subjective Subjective: Medical Attending Note: Patient seen and examined. Patient extubated earlier today. Patient speaking well. Patient on venti mask. Patient does not remember me before the surgery. Patient denies pain. Patient reports she would like to go home soon. Patient requesting for water and gingerale. Objective - Vital Signs/Intake and Output Vital Signs (last 24 hours): Temp Pulse Resp BP Pulse Ox 98.3 F 110 H 24 115/48 L 93 L 10/20/17 16:00 10/20/17 17:00 10/20/17 17:00 10/20/17 16:00 10/20/17 17:00 Intake and Output: 10/20/17 10/20/17 06:59 18:59 Intake Total 1380 740 Output Total 630 755 Balance 750 -15 - Medications Medications: Current Medications Acetaminophen (Tylenol 325mg Tab) 650 mg PO Q6 PRN PRN Reason: Fever >100.4 F Albuterol/Ipratropium (Duoneb 3 Mg/0.5 Mg (3 Ml) Ud) 3 ml INH RQ6 [facility] Last Admin: 10/20/17 13:25 Dose: 3 ml Diltiazem HCl (Cardizem) 60 mg PO Q6 [facility] Last Admin: 10/20/17 17:50 Dose: 60 mg Metronidazole (Flagyl) 500 mg in 100 mls @ 100 mls/hr IVPB Q8 [facility] Last Admin: 10/20/17 13:21 Dose: 100 mls/hr Meropenem 1 gm/ Sodium (Chloride) 100 mls @ 100 mls/hr IVPB Q8H [facility] Last Admin: 10/20/17 13:22 Dose: 100 mls/hr Insulin Human Regular (Novolin R) 0 unit SC Q6H TIM PRN Reason: Protocol Last Admin: 10/20/17 17:51 Dose: Not Given Levothyroxine Sodium (Synthroid) 50 mcg PO DAILY@0630 [facility] Last Admin: 10/20/17 06:01 Dose: 50 mcg Losartan Potassium (Cozaar) 100 mg PO DAILY [facility] Last Admin: 10/20/17 10:12 Dose: Not Given Mupirocin (Bactroban Ointment) 0 gm TOP BID [facility] Last Admin: 10/20/17 17:50 Dose: 1 gm Ondansetron HCl (Zofran Inj) 4 mg IVP Q6H PRN PRN Reason: Nausea/Vomiting Last Admin: 10/10/17 21:10 Dose: 4 mg Pantoprazole Sodium (Protonix Inj) 40 mg IVP Q12H [facility] Last Admin: 10/20/17 10:11 Dose: 40 mg Polyethylene Glycol (Miralax) 17 gm PO BID PRN PRN Reason: Constipation Last Admin: 10/07/17 10:14 Dose: 17 gm Rosuvastatin Calcium (Crestor) 5 mg NG HS [facility] Last Admin: 10/19/17 21:17 Dose: 5 mg Saccharomyces Boulardii (Florastor) 250 mg NG BID [facility] Last Admin: 10/20/17 17:50 Dose: 250 mg Vitamin A (Vitamin A & D Oint Ud Foilpak) 0.5 ea TOP Q4 [facility] Last Admin: 10/20/17 16:49 Dose: 0.5 ea - Labs Labs: 10/20/17 16:10 10/20/17 06:32 PT 14.3 SECONDS (9.7-12.2) H 10/17/17 22:24 INR 1.2 10/17/17 22:24 APTT 27 SECONDS (21-34) 10/17/17 22:24 - Constitutional Appears: Non-toxic, Chronically Ill - Head Exam Head Exam: NORMAL INSPECTION - Eye Exam Eye Exam: EOMI - ENT Exam ENT Exam: Mucous Membranes Moist - Respiratory Exam Respiratory Exam: Decreased Breath Sounds, NORMAL BREATHING PATTERN. absent: Respiratory Distress - Cardiovascular Exam Cardiovascular Exam: REGULAR RHYTHM, +S1, +S2 - GI/Abdominal Exam GI & Abdominal Exam: Soft, Normal Bowel Sounds. absent: Distended, Firm, Guarding, Rigid, Tenderness, Rebound Additional comments: central midline incision: clean/dry/intact - Extremities Exam Extremities Exam: absent: Pedal Edema, Tenderness - Neurological Exam Neurological Exam: Alert, Awake, Oriented x3 - Psychiatric Exam Psychiatric exam: Normal Affect, Normal Mood - Skin Skin Exam: Dry, Normal Color, Warm Assessment and Plan (1) Ischemic necrosis of small bowel Status: Acute Attending/Attestation - Attestation I have personally seen and examined this patient.: Yes I have fully participated in the care of the patient.: Yes I have reviewed all pertinent clinical information, including history, physical exam and plan: Yes Notes (Text): 1.Bowel Ischemia Abdominal Pain Abdominal Aorta Aneurysm * General surgery: Dr. Hinton on consult-->given LLQ abdominal pain * 10/08/17: Exploratory laparotomy, small bowel resection and primary anastomosis. EBL: 100; No Drains * Vascular surgery consult: Dr. Inman to follow for evaluation--> given aborminal aorta focal contained dissection * GI, Dr. Boland group reconsulted given rectal bleeding * CT Dissection protocol (10/04/17): No evidence of thoracic aortic aneurysm, dissection, or rupture. No acute pulmonary embolism, Hepatic cysts, further findings available in the report including. Focal aneurysmal dilatation of infrarenal abdominal aorta measuring 2.6cm * Meropenem 1gram IVPB Q 8H (10/07/17) * Flagyl 500mg IVPB Q8H (active since 10/07/17) * CT abdomen/pelvis PO (10/07/17); Small bowel pneumatosis and portal venous gas concerning for bowel ischemia and necrosis. Multiple liver cysts. Nonobstructing calcifications in the left kidney. 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 In addition to the possible partial obstruction, there is prominent wall and fold enhancement of multiple small bowel loops suggesting enteritis. * 10/17: Hemoglobin did drop today; require 2 units of PRBC and black tarry stool observed both in NGT as well as naturally. * 10/18: patient had additional 2 episodes of black tarry stool; hgb improved to 11.3 post 2 units but dropped again to 10.7; GI has evaluated patient for endoscopic procedure; awaiting cardiac clearance requested by GI * 10/19: POD 1 Endoscopy: Esophageal ulcer, Z-line regular, normal stomach, erythematous duodenopathy, enterostomy, friable mucosa, inflammation and ulceration, no ulcer--c/w IV PP and monitor H/H * 10/20: POD 2 Endoscopy; GI has signed off. Discussed case with Dr. Inman and reviewed CT angiography, SMA is patent with calcification which was reviewed with IR, Dr Galvez. Will continue to monitor H/H/ 2. Chest Pain New LBBB History of Coronary Artery Disease History of CABG History of Diabetes Lipid Disorder History of Hypertension History of Severe Aortic Stenosis History of Pacemaker; prior Sick Sinus syndrome New Onset Atrial Fibrillation * Cardiology (Dr. Mckeon) on board-->help appreciated * Cardiac cath (10/06/17) completed; discussed with Dr. Mckeon including RCA occlusion about 50%-->will need intervention in future * Echocardiogram (10/06/17): left ventricular function is normal, left ventricular ejection fraction is within the normal range. No regional wall motion abnormalities noted. Left atrium is mildly dilated. Mild to Moderate valvular aortic stenosis. Calculated aortic valve area is 1.1cm squared. Donna regurgitation is mild to moderate. * Prior cardiac workup: * Holter in 2017 showed NSR with max HR 121, SVT at HR of 146 and rare VPC, isolated APC. * Cardiac Cath in 2014 showed distal main coronary artery 70-80% concentric stenosis mid LAD 70-80% stenosis, RCA 20-30% non-obstructing stenosis, and large diagonal branch 85% proximal stenosis. with LVEF of 60%. Basal inferior wall akinetic. * revious ECHO showed borderline concentric LVH with grade I abnormal relaxation pattern, severe aortic stenosis, mild mitral regurg, and mild to moderate pulmonic regurg. LVEF was 60-65%. History of pacemaker placement per chart review. * CT Dissection protocol (10/04/17): No evidence of thoracic aortic aneurysm, dissection, or rupture. No acute pulmonary embolism, Hepatic cysts, further findings available in the report inclduing Focal aneurysmal dilatation of infrarenal abdominal aorta measuring 2.6cm * Elevated probnp: 1580 * CARLYN: 7 * T, cholestrol: 159, LDL: 91, HDL: 41 * [id number]: 7.1 * [employer]aker was interrogated by [employer] and it was deemed to be working properly * Patient had episodes of tachycardia 10/10/17 and 10/11/17 and was placed on Cardizem Drip 10 mg/hour and Lopressor 5 mg IV Q6H which were discontinued on . * Code blue 10/17/17; intubated and ROSC achieved, on IV fluid, Levofed, off PO cardiazem-->resident on cardiology and surgery are aware--> cardiology to follow with EP-Cardiology in regards to pacemaker * 10/18: patient had additional 2 episodes of black tarry stool; hgb improved to 11.3 post 2 units but dropped again to 10.7; GI has evaluated patient for endoscopic procedure; awaiting cardiac clearance requested by GI Current Cardiac Meds: * Eliquis 5 mg PO 2x/day started 10/13/17 and was PUT ON HOLD due to Bright Red Blood Per Rectum on 10/15/17 * Aspirin 81 mg NG 1x/day PUT ON HOLD due to Bright Red Blood Per Rectum on 10/15 * Black tarry stool observed 10/17/17 with drop in hemoglobin * Diltiazem 60 mg PO Q6H on 10/19/17 * Crestor 5mg NG QHS * Cozaar 100 mg NG 1x/day 3. Sepsis Urinary Tract Infection Bandemia * Infectious Disease (Dr. Lawson) on the case-->help appreciated * Code sepsis 10/07/17 * Blood cultures (10/06/17): Negative at 5 days * Blood cultures (10/07/17): Negative at 5 days * Blood Culture (10/16/17): no growth for 3 days * Blood culture (): no growth after 48 hours X2 * Procalcitonin has improved * Urine culture (10/07/17): Klebsiella Pneumoanie-->sensitive to Meropenem * Urine Culture (10/11/17): NO GROWTH * Urine culture (10/18/17): no growth * Stool Culture (10/07/17): Negative * Ova and Parasite (10/07/17): No ova and parasite * Meropenem 1gram IVPB Q 8H (10/07/17- active) * Flagyl 500mg IVPB Q8H (10/07/17- active) * Lactic acid: 2.4 (10/05/17)-->1.8 (10/06/17)-->4.1 (10/07/17)-->2.6 (10/08/17)--> 2.2 (10/08/17) * Has Renee in place--discontinued 10/20/17 * C. dif Negative X2 * occult blood from 10/17 Positive 4. Melena Bright Red Blood Per Rectum * 2 episodes of bright red blood per rectum on 10/15/17. * Black tarry stool observed 10/17/17 both fecal matter as well as NGT tube * See findings of CT Angiogram Abdomen/Pelvis in Assessment and Plan #1 above * She received 1 unit PRBC 10/15/17 night and 2 more units of PRBC 10/17/17 * H/H slowly downtrending (9.8/ 9.7 * Chemical anticoagulation on hold since 10/15/18 * Endoscopy (10/18/17): Esophageal ulcer, Z-line regular, normal stomach, erythematous duodenopathy, enterostomy, friable mucosa, inflammation and ulceration, no ulcer--c/w IV PP and monitor H/H 5. History of Chronic Constipation History of Liver cysts * GI (Dr. Boland) on case-->had signed off previously; reconsulted given rectal bleeding * Given patient is asymptomatic and appearance of lesions on imaging consistent with cystic disease, no further workup is indicated at this time. If patient becomes symptomatic, there is consideration for surgical intervention. * Maintain bowel regimen to prevent constipation * Suggest additional outpatient follow up and age appropriate screening colonoscopy if patient willing to undergo procedure. No further planned GI intervention * Hepatitis panel: negative * Please see #1 for further details. * Liver functions tests elevated in light of code blue 10/17/17 6. History of Hypothyroidism * TSH: 2.92; Free T4: 1.49 * Thyroid studies elevated * Off amiodarone 10/17/17 * Synthroid 50mcg PO daily 7. History of Breast Cancer * Patient history of lumpectomy * She is being following serially * Patient is not on any chemotherapeutic agent 8. History of HTN * Losartan and Diltiazem as above 9. History of HLD * Restarted Crestor 10/12/17 10. History of DM * Novolin R SC Q6H Sliding Scale 11. Episode of Confusion * This apparently occurred on night of 10/15/17: secondary to sundowning? * Neurology (Dr. Mazariegos) on the case-->requesting for EEG and MRI Brain when stable * Patient is AAOx3 at the time of my exam * CT Head did not show any bleed or evidence of CVA 12. Prophylactic care * Anticoagulation was held given melena 10/07/17 but she was started on Heparin Drip 10/09/17 secondary to fear of showering emboli: monitor HgB/Hct which has been stable since the start of the Heparin Drip. The Heparin Drip was discontinued and Eliquis 5 mg PO Q12H was started 10/13/17 and then discontinued on 10/15/17 secondary to bright red blood per rectum on 10/15/17 * Palliative Care consult given patient wanted to discuss code status initially during hospitalization * Florastor 250 mg NG 2x/day * Zofran 4 mg IV Q6H PRN N/V * Protonix 40 mg IV BID * Off pressor * Reintubated 10/17; extubated 10/20/17 * Renee d/c 10/20/1710/17: Son Theodore updated at bedside. Code blue this afternoon, reintubated, epi, bicarbonate, and CPR, ROSC achieved. Following ROSC, patient able to follow directions Responds to name and able to move arms when directed. 2 units of PRBC ordered. On pressor. Off amiodarone. 10/18: On pressor, Hgb dropped to 10.7, has had more episodes of black tarry stool. GI considering endoscopic evaluation pending cardiac clearance. DIscussed with GI fellow who has spoken with Dr. mckeon, cardiology. 10/19: Had episode of black tarry stool; on pressor, on protonix drip 10/20: Had episode of green stool. GI has signed off. Extubated today. H/H slowly downtrending.
--- NOTE | 2017-10-20 20:10 | CP.PCM.PN ---
Subjective - Date & Time of Evaluation Date of Evaluation: 10/20/17 Time of Evaluation: 06:00 - Subjective Subjective: dictated Objective - Vital Signs/Intake and Output Vital Signs (last 24 hours): Temp Pulse Resp BP Pulse Ox 98.3 F 110 H 9 L 124/49 L 91 L 10/20/17 16:00 10/20/17 19:00 10/20/17 19:00 10/20/17 18:59 10/20/17 19:00 Intake and Output: 10/20/17 10/21/17 18:59 06:59 Intake Total 740 0 Output Total 795 55 Balance -55 -55 - Medications Medications: Current Medications Acetaminophen (Tylenol 325mg Tab) 650 mg PO Q6 PRN PRN Reason: Fever >100.4 F Albuterol/Ipratropium (Duoneb 3 Mg/0.5 Mg (3 Ml) Ud) 3 ml INH RQ6 [facility] Last Admin: 10/20/17 19:20 Dose: 3 ml Diltiazem HCl (Cardizem) 60 mg PO Q6 [facility] Last Admin: 10/20/17 17:50 Dose: 60 mg Metronidazole (Flagyl) 500 mg in 100 mls @ 100 mls/hr IVPB Q8 [facility] Last Admin: 10/20/17 13:21 Dose: 100 mls/hr Meropenem 1 gm/ Sodium (Chloride) 100 mls @ 100 mls/hr IVPB Q8H [facility] Last Admin: 10/20/17 13:22 Dose: 100 mls/hr Insulin Human Regular (Novolin R) 0 unit SC Q6H TIM PRN Reason: Protocol Last Admin: 10/20/17 17:51 Dose: Not Given Levothyroxine Sodium (Synthroid) 50 mcg PO DAILY@0630 [facility] Last Admin: 10/20/17 06:01 Dose: 50 mcg Losartan Potassium (Cozaar) 100 mg PO DAILY [facility] Last Admin: 10/20/17 10:12 Dose: Not Given Mupirocin (Bactroban Ointment) 0 gm TOP BID [facility] Last Admin: 10/20/17 17:50 Dose: 1 gm Ondansetron HCl (Zofran Inj) 4 mg IVP Q6H PRN PRN Reason: Nausea/Vomiting Last Admin: 10/10/17 21:10 Dose: 4 mg Pantoprazole Sodium (Protonix Inj) 40 mg IVP Q12H [facility] Last Admin: 10/20/17 10:11 Dose: 40 mg Polyethylene Glycol (Miralax) 17 gm PO BID PRN PRN Reason: Constipation Last Admin: 10/07/17 10:14 Dose: 17 gm Rosuvastatin Calcium (Crestor) 5 mg NG HS TIM Last Admin: 10/19/17 21:17 Dose: 5 mg Saccharomyces Boulardii (Florastor) 250 mg NG BID TIM Last Admin: 10/20/17 17:50 Dose: 250 mg Vitamin A (Vitamin A & D Oint Ud Foilpak) 0.5 ea TOP Q4 [facility] Last Admin: 10/20/17 16:49 Dose: 0.5 ea - Labs Labs: 10/20/17 16:10 10/20/17 06:32 PT 14.3 SECONDS (9.7-12.2) H 10/17/17 22:24 INR 1.2 10/17/17 22:24 APTT 27 SECONDS (21-34) 10/17/17 22:24
[2017-10-21] MEDS: (Novolin R) Insulin Human Regular 100 units/ml vial SC SCH ×4 (00:05→21:54)
--- NOTE | 2017-10-21 01:21 | PN ---
SUBJECTIVE: The patient, Salma Black, was seen today around 6 and she has been extubated. She was on Ventimask and she was smiling and was more comfortable, but still remains tachycardiac. She was still n.p.o. She had bowel movement according to her bother who was at the bedside, and she was speaking well. She was on Ventimask and is feeling better. PHYSICAL EXAMINATION: VITAL SIGNS: T-max is 98.3, heart rate of 110 to 111, blood pressure of 124/49, respirations are 20 and respirations are getting more normalized and saturation was 93%. HEENT: Head is atraumatic, normocephalic. NECK: Supple. LUNGS: Clear. Decreased breath sounds on bases, otherwise mostly clear. ABDOMEN: Soft but prominent stiff, surgical site is unremarkable. EXTREMITIES: Have no edema. The nurse asked me to renew the antibiotics and since she is just extubated, I would continue antibiotics for now, but they can be discontinued once she is stable and breathing. I do not think anything is going on in the belly at this time, she had a surgery, but has had a bowel movement. White count is 8, hemoglobin 9.7, hematocrit 29.5, platelet count is 360, and her sodium still remains high at 155 and 124, so she is with hypernatremia at this time and electrolytes need to be monitored. Merrem and Flagyl have been renewed, and we will follow and hopefully she will get up in in next few days. Reji Laswon MD
[2017-10-21] MEDS: Albuterol-Ipratrop 3 mg / 0.5 (3 ml) UD INH SCH ×4 (01:23→20:41)
[2017-10-21] MEDS: Vitamins A & D Oint UD Foilpak TOP SCH ×6 (04:25→20:48)
[2017-10-21] MEDS: metroNIDAZOLE IV 500 mg/100 ml 500 MG/100 ML BAG IVPB SCH ×3 (05:20→21:36)
[2017-10-21] MEDS: Meropenem 1 GM in Sodium Chloride 0.9% 100 ML IVPB SCH ×3 (05:36→21:37)
[2017-10-21] MEDS: Levothyroxine 50 MCG TAB PO SCH (05:36)
[2017-10-21 06:43] LABS: BASO # 0.1 K/uL (0.0-0.2); BASO % 1.3 % (0.0-2.0); EOS # 0.2 K/uL (0.0-0.7); EOS % 2.6 % (0.0-4.0); HEMOGLOBIN 9.9 g/dL (11.0-16.0); LYMPH # 1.6 K/uL (1.0-4.3); LYMPH % 20.6 % (20.0-40.0); MEAN CELL VOLUME 89.3 fL (81.0-99.0); MEAN CORPUSCULAR HEMOGLOBIN 29.4 pg (27.0-31.0); MEAN PLATELET VOLUME 9.2 fL (7.2-11.7); MONO # 0.6 K/uL (0.0-0.8); MONO % 7.7 % (0.0-10.0); NEUT # 5.3 K/uL (1.8-7.0); NEUT % 67.8 % (50.0-75.0); NRBC % 0.1 % (0.0-2.0); RBC 3.35 Mil/uL (3.80-5.20); RED CELL DISTRIBUTION WIDTH 15.5 % (11.5-14.5); WHITE BLOOD COUNT 7.8 K/uL (4.8-10.8)
[2017-10-21 07:03] LABS: ALB/GLOB RATIO 0.8 (1.0-2.1); ALBUMIN 2.2 g/dL (3.5-5.0); ALT/SGPT 42 U/L (9-52); AST/SGOT 28 U/L (14-36); BLOOD UREA NITROGEN 17 mg/dL (7-17); GFR AFRICAN-AMERICAN > 60; GFR NON-AFRICAN AMERICAN > 60; MAGNESIUM 1.9 mg/dL (1.6-2.3)
[2017-10-21] MEDS ORDERED: Potassium Phosphate 15 MMOLE in Sodium Chloride 0.9% 250 ML IV ONE (07:51)
[2017-10-21] MEDS ORDERED: Potassium Chloride 20 mEq/15 ml LIQ UD PO ONE (07:52)
--- NOTE | 2017-10-21 07:56 | CP.PCM.PN ---
Subjective - Date & Time of Evaluation Date of Evaluation: 10/21/17 Time of Evaluation: 07:35 - Subjective Subjective: General Surgery progress note for Dr. Marcin Mayers, PGY-1 Pt S & E at bedside. Pt extubated, doing well, no complaints overnight, very pleasant this AM. Per nursing, pt with more formed, but soft brown stool- no melena. Pt asking for diet advancement. Objective - Vital Signs/Intake and Output Vital Signs (last 24 hours): Temp Pulse Resp BP Pulse Ox 98.5 F 99 H 18 110/46 L 98 10/21/17 04:00 10/21/17 06:59 10/21/17 06:59 10/21/17 06:59 10/21/17 06:59 Intake and Output: 10/21/17 10/21/17 06:59 18:59 Intake Total 750 Output Total 525 Balance 225 - Medications Medications: Current Medications Acetaminophen (Tylenol 325mg Tab) 650 mg PO Q6 PRN PRN Reason: Fever >100.4 F Albuterol/Ipratropium (Duoneb 3 Mg/0.5 Mg (3 Ml) Ud) 3 ml INH RQ6 [facility] Last Admin: 10/21/17 01:23 Dose: 3 ml Diltiazem HCl (Cardizem) 60 mg PO Q6 [facility] Last Admin: 10/21/17 05:25 Dose: 60 mg Metronidazole (Flagyl) 500 mg in 100 mls @ 100 mls/hr IVPB Q8 [facility] Last Admin: 10/21/17 05:20 Dose: 100 mls/hr Meropenem 1 gm/ Sodium (Chloride) 100 mls @ 100 mls/hr IVPB Q8H [facility] Last Admin: 10/21/17 05:36 Dose: 100 mls/hr Potassium Phosphate 15 mmole/ (Sodium Chloride) 255 mls @ 63 mls/hr IV ONCE ONE Stop: 10/21/17 11:49 Insulin Human Regular (Novolin R) 0 unit SC Q6H TIM PRN Reason: Protocol Last Admin: 10/21/17 05:39 Dose: Not Given Levothyroxine Sodium (Synthroid) 50 mcg PO DAILY@0630 [facility] Last Admin: 10/21/17 05:36 Dose: 50 mcg Losartan Potassium (Cozaar) 100 mg PO DAILY [facility] Last Admin: 10/20/17 10:12 Dose: Not Given Mupirocin (Bactroban Ointment) 0 gm TOP BID [facility] Last Admin: 10/20/17 17:50 Dose: 1 gm Ondansetron HCl (Zofran Inj) 4 mg IVP Q6H PRN PRN Reason: Nausea/Vomiting Last Admin: 10/10/17 21:10 Dose: 4 mg Pantoprazole Sodium (Protonix Inj) 40 mg IVP Q12H [facility] Last Admin: 10/20/17 21:01 Dose: 40 mg Polyethylene Glycol (Miralax) 17 gm PO BID PRN PRN Reason: Constipation Last Admin: 10/07/17 10:14 Dose: 17 gm Rosuvastatin Calcium (Crestor) 5 mg NG HS [facility] Last Admin: 10/20/17 21:01 Dose: 5 mg Saccharomyces Boulardii (Florastor) 250 mg NG BID [facility] Last Admin: 10/20/17 17:50 Dose: 250 mg Vitamin A (Vitamin A & D Oint Ud Foilpak) 0.5 ea TOP Q4 [facility] Last Admin: 10/21/17 04:25 Dose: 0.5 ea - Labs Labs: 10/21/17 06:39 10/21/17 06:40 PT 14.3 SECONDS (9.7-12.2) H 10/17/17 22:24 INR 1.2 10/17/17 22:24 APTT 27 SECONDS (21-34) 10/17/17 22:24 - Constitutional Appears: Non-toxic, No Acute Distress - Head Exam Head Exam: ATRAUMATIC, NORMAL INSPECTION, NORMOCEPHALIC - Eye Exam Eye Exam: EOMI, Normal appearance - ENT Exam ENT Exam: Mucous Membranes Moist, Normal Exam - Neck Exam Neck Exam: Full ROM, Normal Inspection - Respiratory Exam Respiratory Exam: NORMAL BREATHING PATTERN - Cardiovascular Exam Cardiovascular Exam: REGULAR RHYTHM, +S1, +S2 - GI/Abdominal Exam GI & Abdominal Exam: Soft. absent: Distended, Firm, Guarding, Rigid, Tenderness Additional comments: alirio in place, no dehiscence or drainage - Extremities Exam Extremities Exam: Pedal Edema (bilateral) - Neurological Exam Neurological Exam: Alert, Awake - Psychiatric Exam Psychiatric exam: Normal Affect, Normal Mood - Skin Skin Exam: Dry, Intact, Normal Color, Warm Assessment and Plan - Assessment and Plan (Free Text) Assessment: 77F POD#13 s/p ex-lap w/small bowel resection and primary anastomosis Plan: extubated Monitor H/H Monitor for bleeding Cont Mgmt as per ICU/primary teams Will DW Dr. Jamaal Mayers, PGY-1
--- NOTE | 2017-10-21 09:16 | CP.PCM.PN ---
Subjective - Date & Time of Evaluation Date of Evaluation: 10/21/17 Time of Evaluation: 09:10 - Subjective Subjective: Medical Attending Note: Patient seen and examined at bedside. Patient reports she remembers me from yesterday. Patient knows she is at [facility] but cannot recall the date. Patient denies chest pain, denies abdominal pain, denies shortness of breathe. Discussed with nurse at bedside, no events overnight. Patient would like to eat , Objective - Vital Signs/Intake and Output Vital Signs (last 24 hours): Temp Pulse Resp BP Pulse Ox 98.5 F 99 H 18 110/46 L 98 10/21/17 04:00 10/21/17 06:59 10/21/17 06:59 10/21/17 06:59 10/21/17 06:59 Intake and Output: 10/21/17 10/21/17 06:59 18:59 Intake Total 750 Output Total 525 Balance 225 - Medications Medications: Current Medications Acetaminophen (Tylenol 325mg Tab) 650 mg PO Q6 PRN PRN Reason: Fever >100.4 F Albuterol/Ipratropium (Duoneb 3 Mg/0.5 Mg (3 Ml) Ud) 3 ml INH RQ6 [facility] BEDS AT [facility] Last Admin: 10/21/17 08:01 Dose: 3 ml Diltiazem HCl (Cardizem) 60 mg PO Q6 [facility] 234 BEDS AT [facility] Last Admin: 10/21/17 05:25 Dose: 60 mg Metronidazole (Flagyl) 500 mg in 100 mls @ 100 mls/hr IVPB Q8 [facility] 234 BEDS AT [facility] Last Admin: 10/21/17 05:20 Dose: 100 mls/hr Meropenem 1 gm/ Sodium (Chloride) 100 mls @ 100 mls/hr IVPB Q8H [facility] 234 BEDS AT [facility] Last Admin: 10/21/17 05:36 Dose: 100 mls/hr Potassium Phosphate 15 mmole/ (Sodium Chloride) 255 mls @ 63 mls/hr IV ONCE ONE Stop: 10/21/17 11:49 Insulin Human Regular (Novolin R) 0 unit SC Q6H TIM PRN Reason: Protocol Last Admin: 10/21/17 05:39 Dose: Not Given Levothyroxine Sodium (Synthroid) 50 mcg PO DAILY@0630 [facility] 234 BEDS AT [facility] Last Admin: 10/21/17 05:36 Dose: 50 mcg Losartan Potassium (Cozaar) 100 mg PO DAILY [facility]CLUDE 234 BEDS AT [facility] Last Admin: 10/20/17 10:12 Dose: Not Given Mupirocin (Bactroban Ointment) 0 gm TOP BID [facility]CLUDE 234 BEDS AT [facility] Last Admin: 10/20/17 17:50 Dose: 1 gm Ondansetron HCl (Zofran Inj) 4 mg IVP Q6H PRN PRN Reason: Nausea/Vomiting Last Admin: 10/10/17 21:10 Dose: 4 mg Pantoprazole Sodium (Protonix Inj) 40 mg IVP Q12H [facility] 234 BEDS AT [facility] Last Admin: 10/20/17 21:01 Dose: 40 mg Polyethylene Glycol (Miralax) 17 gm PO BID PRN PRN Reason: Constipation Last Admin: 10/07/17 10:14 Dose: 17 gm Rosuvastatin Calcium (Crestor) 5 mg NG HS [facility]CLUDE 234 BEDS AT [facility] Last Admin: 10/20/17 21:01 Dose: 5 mg Saccharomyces Boulardii (Florastor) 250 mg NG BID [facility] INCLUDE 234 BEDS AT THE [facility] Last Admin: 10/20/17 17:50 Dose: 250 mg Vitamin A (Vitamin A & D Oint Ud Foilpak) 0.5 ea TOP Q4 [facility] 234 BEDS AT [facility] Last Admin: 10/21/17 04:25 Dose: 0.5 ea - Labs Labs: 10/21/17 06:39 10/21/17 06:40 PT 14.3 SECONDS (9.7-12.2) H 10/17/17 22:24 INR 1.2 10/17/17 22:24 APTT 27 SECONDS (21-34) 10/17/17 22:24 - Constitutional Appears: Non-toxic, No Acute Distress, Chronically Ill - Head Exam Head Exam: NORMAL INSPECTION - Eye Exam Eye Exam: EOMI - ENT Exam ENT Exam: Mucous Membranes Moist - Respiratory Exam Respiratory Exam: Decreased Breath Sounds, Rales, NORMAL BREATHING PATTERN. absent: Respiratory Distress - Cardiovascular Exam Cardiovascular Exam: REGULAR RHYTHM, +S1, +S2 - GI/Abdominal Exam GI & Abdominal Exam: Soft, Normal Bowel Sounds. absent: Distended, Firm, Guarding, Rigid, Tenderness, Rebound Additional comments: Mid line central incision: minimal stapes, healing well, no descience noted, no drains - Extremities Exam Extremities Exam: Normal Capillary Refill. absent: Pedal Edema, Tenderness Additional comments: pedal pulses intact - Neurological Exam Neurological Exam: Alert, Awake, CN II-XII Intact, Oriented x3 Neuro motor strength exam: Left Upper Extremity: 5, Right Upper Extremity: 5, Left Lower Extremity: 5, Right Lower Extremity: 5 - Psychiatric Exam Psychiatric exam: Normal Affect, Normal Mood - Skin Skin Exam: Dry, Normal Color, Warm Assessment and Plan - Assessment and Plan (Free Text) Assessment: 1.Bowel Ischemia Abdominal Pain Abdominal Aorta Aneurysm * General surgery: Dr. Hinton on consult-->given LLQ abdominal pain * 10/08/17: Exploratory laparotomy, small bowel resection and primary anastomosis. EBL: 100; No Drains * Vascular surgery consult: Dr. Inman to follow for evaluation--> given aborminal aorta focal contained dissection * GI, Dr. Boland group reconsulted given rectal bleeding * CT Dissection protocol (10/04/17): No evidence of thoracic aortic aneurysm, dissection, or rupture. No acute pulmonary embolism, Hepatic cysts, further findings available in the report including. Focal aneurysmal dilatation of infrarenal abdominal aorta measuring 2.6cm * Meropenem 1gram IVPB Q 8H (10/07/17) * Flagyl 500mg IVPB Q8H (active since 10/07/17) * CT abdomen/pelvis PO (10/07/17); Small bowel pneumatosis and portal venous gas concerning for bowel ischemia and necrosis. Multiple liver cysts. Nonobstructing calcifications in the left kidney. 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 In addition to the possible partial obstruction, there is prominent wall and fold enhancement of multiple small bowel loops suggesting enteritis. * 10/17: Hemoglobin did drop today; require 2 units of PRBC and black tarry stool observed both in NGT as well as naturally. * 10/18: patient had additional 2 episodes of black tarry stool; hgb improved to 11.3 post 2 units but dropped again to 10.7; GI has evaluated patient for endoscopic procedure; awaiting cardiac clearance requested by GI * 10/19: POD 1 Endoscopy: Esophageal ulcer, Z-line regular, normal stomach, erythematous duodenopathy, enterostomy, friable mucosa, inflammation and ulceration, no ulcer--c/w IV PP and monitor H/H * 10/20: POD 2 Endoscopy; GI has signed off. Discussed case with Dr. Inman and reviewed CT angiography, SMA is patent with calcification which was reviewed with IR, Dr Galvez. Will continue to monitor H/H * 2: POD 3 endoscopy; no events overnight; hemoglobin stable in high 9s Awaiting swallow eval 2. Chest Pain New LBBB History of Coronary Artery Disease History of CABG History of Diabetes Lipid Disorder History of Hypertension History of Severe Aortic Stenosis History of Pacemaker; prior Sick Sinus syndrome New Onset Atrial Fibrillation * Cardiology (Dr. Mckeon) on board-->help appreciated * Cardiac cath (10/06/17) completed; discussed with Dr. Mckeon including RCA occlusion about 50%-->will need intervention in future * Echocardiogram (10/06/17): left ventricular function is normal, left ventricular ejection fraction is within the normal range. No regional wall motion abnormalities noted. Left atrium is mildly dilated. Mild to Moderate valvular aortic stenosis. Calculated aortic valve area is 1.1cm squared. Donna regurgitation is mild to moderate. * Prior cardiac workup: * Holter in 2017 showed NSR with max HR 121, SVT at HR of 146 and rare VPC, isolated APC. * Cardiac Cath in 2014 showed distal main coronary artery 70-80% concentric stenosis mid LAD 70-80% stenosis, RCA 20-30% non-obstructing stenosis, and large diagonal branch 85% proximal stenosis. with LVEF of 60%. Basal inferior wall akinetic. * revious ECHO showed borderline concentric LVH with grade I abnormal relaxation pattern, severe aortic stenosis, mild mitral regurg, and mild to moderate pulmonic regurg. LVEF was 60-65%. History of pacemaker placement per chart review. * CT Dissection protocol (10/04/17): No evidence of thoracic aortic aneurysm, dissection, or rupture. No acute pulmonary embolism, Hepatic cysts, further findings available in the report inclduing Focal aneurysmal dilatation of infrarenal abdominal aorta measuring 2.6cm * Elevated probnp: 1580 * CARLYN: 7 * T, cholestrol: 159, LDL: 91, HDL: 41 * [id number]: 7.1 * [employer] was interrogated by [employer] and it was deemed to be working properly * Patient had episodes of tachycardia 10/10/17 and 10/11/17 and was placed on Cardizem Drip 10 mg/hour and Lopressor 5 mg IV Q6H which were discontinued on . * Code blue 10/17/17; intubated and ROSC achieved, on IV fluid, Levofed, off PO cardiazem-->resident on cardiology and surgery are aware--> cardiology to follow with EP-Cardiology in regards to pacemaker * 10/18: patient had additional 2 episodes of black tarry stool; hgb improved to 11.3 post 2 units but dropped again to 10.7; GI has evaluated patient for endoscopic procedure; awaiting cardiac clearance requested by GI * 10/21: POD 3 endoscopy; no events overnight; hemoglobin stable in high 9s Awaiting swallow eval Current Cardiac Meds: * Eliquis 5 mg PO 2x/day started 10/13/17 and was PUT ON HOLD due to Bright Red Blood Per Rectum on 10/15/17 * Aspirin 81 mg NG 1x/day PUT ON HOLD due to Bright Red Blood Per Rectum on 10/15 * Black tarry stool observed 10/17/17 with drop in hemoglobin * Diltiazem 60 mg PO Q6H on 10/19/17 * Crestor 5mg NG QHS * Cozaar 100 mg NG 1x/day 3. Sepsis Urinary Tract Infection Bandemia * Infectious Disease (Dr. Lawson) on the case-->help appreciated * Code sepsis 10/07/17 * Blood cultures (10/06/17): Negative at 5 days * Blood cultures (10/07/17): Negative at 5 days * Blood Culture (10/16/17): no growth for 3 days * Blood culture (10/18/17): no growth after 48 hours X2 * Procalcitonin has improved * Urine culture (10/07/17): Klebsiella Pneumoanie-->sensitive to Meropenem * Urine Culture (10/11/17): NO GROWTH * Urine culture (10/18/17): no growth * Stool Culture (10/07/17): Negative * Ova and Parasite (10/07/17): No ova and parasite * Meropenem 1gram IVPB Q 8H (10/07/17- active) * Flagyl 500mg IVPB Q8H (10/07/17- active) * Lactic acid: 2.4 (10/05/17)-->1.8 (10/06/17)-->4.1 (10/07/17)-->2.6 (10/08/17)--> 2.2 (10/08/17) * Has Renee in place--discontinued 10/20/17 * C. dif Negative X2 * occult blood from 10/17 Positive 4. Melena Bright Red Blood Per Rectum * 2 episodes of bright red blood per rectum on 10/15/17. * Black tarry stool observed 10/17/17 both fecal matter as well as NGT tube * See findings of CT Angiogram Abdomen/Pelvis in Assessment and Plan #1 above * She received 1 unit PRBC 10/15/17 night and 2 more units of PRBC 10/17/17 * H/H slowly downtrending (9.8/ 9.7 * Chemical anticoagulation on hold since 10/15/18 * Endoscopy (10/18/17): Esophageal ulcer, Z-line regular, normal stomach, erythematous duodenopathy, enterostomy, friable mucosa, inflammation and ulceration, no ulcer--c/w IV PP and monitor H/H 5. History of Chronic Constipation History of Liver cysts * GI (Dr. Boland) on case-->had signed off previously; reconsulted given rectal bleeding * Given patient is asymptomatic and appearance of lesions on imaging consistent with cystic disease, no further workup is indicated at this time. If patient becomes symptomatic, there is consideration for surgical intervention. * Maintain bowel regimen to prevent constipation * Suggest additional outpatient follow up and age appropriate screening colonoscopy if patient willing to undergo procedure. No further planned GI intervention * Hepatitis panel: negative * Please see #1 for further details. * Liver functions tests elevated in light of code blue 10/17/17 6. History of Hypothyroidism * TSH: 2.92; Free T4: 1.49 * Thyroid studies elevated * Off amiodarone 10/17/17 * Synthroid 50mcg PO daily 7. History of Breast Cancer * Patient history of lumpectomy * She is being following serially * Patient is not on any chemotherapeutic agent 8. History of HTN * Losartan and Diltiazem as above 9. History of HLD * Restarted Crestor 10/12/17 10. History of DM * Novolin R SC Q6H Sliding Scale 11. Episode of Confusion * This apparently occurred on night of 10/15/17: secondary to sundowning? * Neurology (Dr. Mazariegos) on the case-->requesting for EEG and MRI Brain when stable * Patient is AAOx3 at the time of my exam * CT Head did not show any bleed or evidence of CVA 12. Hypernatremia * Pending swallow eval today 13. Prophylactic care * Anticoagulation was held given melena 10/07/17 but she was started on Heparin Drip 10/09/17 secondary to fear of showering emboli: monitor HgB/Hct which has been stable since the start of the Heparin Drip. The Heparin Drip was discontinued and Eliquis 5 mg PO Q12H was started 10/13/17 and then discontinued on 10/15/17 secondary to bright red blood per rectum on 10/15/17 * Palliative Care consult given patient wanted to discuss code status initially during hospitalization * Florastor 250 mg NG 2x/day * Zofran 4 mg IV Q6H PRN N/V * Protonix 40 mg IV BID * Off pressor * Reintubated 10/17; extubated 10/20/17 * Renee d/c 10/20/1710/17: Son Theodore updated at bedside. Code blue this afternoon, reintubated, epi, bicarbonate, and CPR, ROSC achieved. Following ROSC, patient able to follow directions Responds to name and able to move arms when directed. 2 units of PRBC ordered. On pressor. Off amiodarone. 10/18: On pressor, Hgb dropped to 10.7, has had more episodes of black tarry stool. GI considering endoscopic evaluation pending cardiac clearance. DIscussed with GI fellow who has spoken with Dr. mckeon, cardiology. 10/19: Had episode of black tarry stool; on pressor, on protonix drip 10/20: Had episode of green stool. GI has signed off. Extubated today. H/H slowly downtrending. 10/21: no events overnight. awaiting swallow eval; hemoglobin stable in the 9s.
[2017-10-21] MEDS: Saccharomyces Boulardi 250 mg Cap NG SCH ×2 (10:28→18:11)
[2017-10-21] MEDS ORDERED: Potassium Chloride 20 mEq ER Tab PO ONE (14:00)
[2017-10-21 16:02] LABS: BLOOD UREA NITROGEN 14 mg/dL (7-17); CALCIUM 7.6 mg/dl (8.6-10.4); GFR AFRICAN-AMERICAN > 60; GFR NON-AFRICAN AMERICAN > 60
--- NOTE | 2017-10-21 16:32 | CP.PCM.PN ---
<Manyor Jon Paula - Last Filed: 10/21/17 16:35> Subjective - Date & Time of Evaluation Date of Evaluation: 10/21/17 Time of Evaluation: 16:29 - Subjective Subjective: Cardiology progress note for Dr. Childs Patient seen and examined at bedside. Patient is thrilled to be extubated and is tolerating a diet well. Patient denies any symptoms of shortness of breath or chest pain. Patient is doing very well. Objective - Vital Signs/Intake and Output Vital Signs (last 24 hours): Temp Pulse Resp BP Pulse Ox 97.5 F L 103 H 17 110/70 96 10/21/17 12:00 10/21/17 15:00 10/21/17 15:00 10/21/17 14:59 10/21/17 15:00 Intake and Output: 10/21/17 10/21/17 06:59 18:59 Intake Total 750 63 Output Total 525 1 Balance 225 62 - Medications Medications: Current Medications Acetaminophen (Tylenol 325mg Tab) 650 mg PO Q6 PRN PRN Reason: Fever >100.4 F Albuterol/Ipratropium (Duoneb 3 Mg/0.5 Mg (3 Ml) Ud) 3 ml INH RQ6 [facility] Last Admin: 10/21/17 14:15 Dose: Not Given Diltiazem HCl (Cardizem) 60 mg PO Q6 [facility] Last Admin: 10/21/17 13:00 Dose: 60 mg Metronidazole (Flagyl) 500 mg in 100 mls @ 100 mls/hr IVPB Q8 [facility] Last Admin: 10/21/17 14:08 Dose: 100 mls/hr Meropenem 1 gm/ Sodium (Chloride) 100 mls @ 100 mls/hr IVPB Q8H [facility] Last Admin: 10/21/17 14:09 Dose: 100 mls/hr Insulin Human Regular (Novolin R) 0 unit SC Q6H [facility] PRN Reason: Protocol Last Admin: 10/21/17 11:56 Dose: Not Given Levothyroxine Sodium (Synthroid) 50 mcg PO DAILY@0630 [facility] Last Admin: 10/21/17 05:36 Dose: 50 mcg Losartan Potassium (Cozaar) 100 mg PO DAILY [facility] Last Admin: 10/21/17 14:58 Dose: 100 mg Mupirocin (Bactroban Ointment) 0 gm TOP BID [facility] Last Admin: 10/21/17 10:27 Dose: 1 gm Ondansetron HCl (Zofran Inj) 4 mg IVP Q6H PRN PRN Reason: Nausea/Vomiting Last Admin: 10/10/17 21:10 Dose: 4 mg Pantoprazole Sodium (Protonix Inj) 40 mg IVP Q12H [facility] Last Admin: 10/21/17 10:29 Dose: 40 mg Polyethylene Glycol (Miralax) 17 gm PO BID PRN PRN Reason: Constipation Last Admin: 10/07/17 10:14 Dose: 17 gm Rosuvastatin Calcium (Crestor) 5 mg NG HS [facility] Last Admin: 10/20/17 21:01 Dose: 5 mg Saccharomyces Boulardii (Florastor) 250 mg NG BID [facility] Last Admin: 10/21/17 10:28 Dose: 250 mg Vitamin A (Vitamin A & D Oint Ud Foilpak) 0.5 ea TOP Q4 [facility] Last Admin: 10/21/17 14:09 Dose: 0.5 ea - Labs Labs: 10/21/17 06:39 10/21/17 15:45 PT 14.3 SECONDS (9.7-12.2) H 10/17/17 22:24 INR 1.2 10/17/17 22:24 APTT 27 SECONDS (21-34) 10/17/17 22:24 - Additional Findings Additional findings: Physical Exam: Vital Signs as below Const'l: +Patient extubated, oriented x 3, satting well Head/Neck: neck supple, no jvd, trachea midline, carotid midline, no cervical/head mass Eyes: pupils equally reactive to light and accommodation, nonicteric sclera, extraocular intact ENT: auditory acuity grossly intact, throat not congested, no nasal deformity Cardio: +Regular rhythm; +scar on chest wall on left and right sides, regular rate, regular rhythm, no murmurs rubs gallops, no carotid bruit, normal s1, s2 Pulm: no accessory muscle use, equal normal breath sounds bilaterally, clear to ausculation bilaterally Abd: +Abdominal incision site is clean, dry, intact with alirio; + obesity limiting exam, +slightly diminished bowel sounds in lower quadrants - resolved; soft non tender non-distended, no palpable masses Derm: no rashes, no ulcers, no lesions Extr: no edema, no cyanosis, no calf tenderness, no lesions, no varicosities Neuro: cranial nerves II-XII grossly intact, upper extremity and lower extremity 5/5 muscle strength bilaterally, no loss of sensation in upper extremities, lower extremities bilaterally and core Assessment and Plan - Assessment and Plan (Free Text) Assessment: For extensive Assessment and Plan history, please see note from 10/18, at the bottom in italics; and see note from 10/20 at bottom in italics Acute Assessments and Plan: 77 year old female with extensive cardiac history presented with chest pain on this admission, ACS ruled out, Cath performed. Patient also had new onset atrial fibrillation which has now resolved with diltiazem, amiodarone, and metoprolol. Patient had a code blue on 10/17/17 for pulselessness and respiratory distress. Patient was brought to [facility] with Bicarb and Epi. Diminished pulse and dyspnea are likely 2/2 GI bleed, as patient has had black, tarry stools for a couple of days. Eliquis on hold, Dr. Boland has performed EGD - please see findings in his note. New-Onset Atrial Fibrillation - Resolved - Rate control: Metoprolol 5 q6 - Rhythm management: Diltiazem and Amiodarone *Patient LFT's are fine and no signs of pulmonary fibrosis. However, her TSH is above normal limits. Observe. 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 - Heparin drip stopped - Management per ICU and Surgery Hypernatremia likely 2/2 hypodipsia - Trending down - I ordered urine osm (593) urine na (149); Serum osm (328): indicative of hypovolemic hypernatremia - Clinically and based on history, Hypernatremia is likely 2/2 decreased free water in take - Per primary management - consider light hydration <Babak Childs - Last Filed: 10/21/17 18:30> Objective - Vital Signs/Intake and Output Vital Signs (last 24 hours): Temp Pulse Resp BP Pulse Ox 98.5 F 121 H 13 116/62 95 10/21/17 16:00 10/21/17 18:00 10/21/17 18:00 10/21/17 17:59 10/21/17 18:00 Intake and Output: 10/21/17 10/21/17 06:59 18:59 Intake Total 750 63 Output Total 525 1 Balance 225 62 - Medications Medications: Current Medications Acetaminophen (Tylenol 325mg Tab) 650 mg PO Q6 PRN PRN Reason: Fever >100.4 F Albuterol/Ipratropium (Duoneb 3 Mg/0.5 Mg (3 Ml) Ud) 3 ml INH RQ6 [facility] Last Admin: 10/21/17 14:15 Dose: Not Given Diltiazem HCl (Cardizem) 60 mg PO Q6 [facility] Last Admin: 10/21/17 18:11 Dose: 60 mg Metronidazole (Flagyl) 500 mg in 100 mls @ 100 mls/hr IVPB Q8 [facility] Last Admin: 10/21/17 14:08 Dose: 100 mls/hr Meropenem 1 gm/ Sodium (Chloride) 100 mls @ 100 mls/hr IVPB Q8H [facility] Last Admin: 10/21/17 14:09 Dose: 100 mls/hr Insulin Human Regular (Novolin R) 0 unit SC ACHS [facility] PRN Reason: Protocol Levothyroxine Sodium (Synthroid) 50 mcg PO DAILY@0630 [facility] Last Admin: 10/21/17 05:36 Dose: 50 mcg Losartan Potassium (Cozaar) 100 mg PO DAILY [facility] Last Admin: 10/21/17 14:58 Dose: 100 mg Metoprolol Succinate (Toprol Xl) 25 mg PO DAILY [facility] Last Admin: 10/21/17 18:11 Dose: 25 mg Mupirocin (Bactroban Ointment) 0 gm TOP BID [facility] Last Admin: 10/21/17 18:11 Dose: 1 gm Ondansetron HCl (Zofran Inj) 4 mg IVP Q6H PRN PRN Reason: Nausea/Vomiting Last Admin: 10/10/17 21:10 Dose: 4 mg Pantoprazole Sodium (Protonix Inj) 40 mg IVP Q12H [facility] Last Admin: 10/21/17 10:29 Dose: 40 mg Polyethylene Glycol (Miralax) 17 gm PO BID PRN PRN Reason: Constipation Last Admin: 10/07/17 10:14 Dose: 17 gm Rosuvastatin Calcium (Crestor) 5 mg NG HS [facility] Last Admin: 10/20/17 21:01 Dose: 5 mg Saccharomyces Boulardii (Florastor) 250 mg NG BID [facility] Last Admin: 10/21/17 18:11 Dose: 250 mg Vitamin A (Vitamin A & D Oint Ud Foilpak) 0.5 ea TOP Q4 [facility] Last Admin: 10/21/17 18:12 Dose: 0.5 ea - Labs Labs: 10/21/17 06:39 10/21/17 15:45 PT 14.3 SECONDS (9.7-12.2) H 10/17/17 22:24 INR 1.2 10/17/17 22:24 APTT 27 SECONDS (21-34) 10/17/17 22:24 Assessment and Plan (1) Chest discomfort Status: Acute (2) Chest pain Status: Acute (3) Hypertension Status: Acute Attending/Attestation - Attestation I have personally seen and examined this patient.: Yes I have fully participated in the care of the patient.: Yes I have reviewed all pertinent clinical information, including history, physical exam and plan: Yes Notes (Text): 10/21/17 18:30 BB changed to PO responding to PO fluids AC on hold 2' to GI bleed
[2017-10-21] MEDS: Metoprolol Succinate 25 mg XL Tab PO SCH (18:11)
--- NOTE | 2017-10-21 21:38 | CP.PCM.PN ---
Subjective - Date & Time of Evaluation Date of Evaluation: 10/21/17 Time of Evaluation: 07:25 - Subjective Subjective: dictated Objective - Vital Signs/Intake and Output Vital Signs (last 24 hours): Temp Pulse Resp BP Pulse Ox 98.5 F 103 H 21 115/59 L 100 10/21/17 20:00 10/21/17 20:00 10/21/17 20:00 10/21/17 20:00 10/21/17 20:00 Intake and Output: 10/21/17 10/22/17 18:59 06:59 Intake Total 63 1890 Output Total 1 203 Balance 62 1687 - Medications Medications: Current Medications Acetaminophen (Tylenol 325mg Tab) 650 mg PO Q6 PRN PRN Reason: Fever >100.4 F Albuterol/Ipratropium (Duoneb 3 Mg/0.5 Mg (3 Ml) Ud) 3 ml INH RQ6 [facility] Last Admin: 10/21/17 20:41 Dose: 3 ml Diltiazem HCl (Cardizem) 60 mg PO Q6 [facility] Last Admin: 10/21/17 18:11 Dose: 60 mg Metronidazole (Flagyl) 500 mg in 100 mls @ 100 mls/hr IVPB Q8 [facility] Last Admin: 10/21/17 21:36 Dose: 100 mls/hr Meropenem 1 gm/ Sodium (Chloride) 100 mls @ 100 mls/hr IVPB Q8H [facility] Last Admin: 10/21/17 21:37 Dose: 100 mls/hr Insulin Human Regular (Novolin R) 0 unit SC ACHS [facility] PRN Reason: Protocol Levothyroxine Sodium (Synthroid) 50 mcg PO DAILY@0630 [facility] Last Admin: 10/21/17 05:36 Dose: 50 mcg Losartan Potassium (Cozaar) 100 mg PO DAILY [facility] Last Admin: 10/21/17 14:58 Dose: 100 mg Metoprolol Succinate (Toprol Xl) 25 mg PO DAILY [facility] Last Admin: 10/21/17 18:11 Dose: 25 mg Mupirocin (Bactroban Ointment) 0 gm TOP BID [facility] Last Admin: 10/21/17 18:11 Dose: 1 gm Ondansetron HCl (Zofran Inj) 4 mg IVP Q6H PRN PRN Reason: Nausea/Vomiting Last Admin: 01/22/18 21:10 Dose: 4 mg Pantoprazole Sodium (Protonix Inj) 40 mg IVP Q12H [facility] Last Admin: 10/21/17 10:29 Dose: 40 mg Polyethylene Glycol (Miralax) 17 gm PO BID PRN PRN Reason: Constipation Last Admin: 10/07/17 10:14 Dose: 17 gm Rosuvastatin Calcium (Crestor) 5 mg NG HS [facility] Last Admin: 10/21/17 21:35 Dose: 5 mg Saccharomyces Boulardii (Florastor) 250 mg NG BID [facility] Last Admin: 10/21/17 18:11 Dose: 250 mg Vitamin A (Vitamin A & D Oint Ud Foilpak) 0.5 ea TOP Q4 [facility] Last Admin: 10/21/17 20:48 Dose: 0.5 ea - Labs Labs: 10/21/17 06:39 10/21/17 15:45 PT 14.3 SECONDS (9.7-12.2) H 10/17/17 22:24 INR 1.2 10/17/17 22:24 APTT 27 SECONDS (21-34) 10/17/17 22:24
[2017-10-21 23:41] LABS: BLOOD UREA NITROGEN 13 mg/dL (7-17); CALCIUM 7.8 mg/dl (8.6-10.4); GFR AFRICAN-AMERICAN > 60; GFR NON-AFRICAN AMERICAN > 60
[2017-10-22] MEDS: Vitamins A & D Oint UD Foilpak TOP SCH ×6 (00:33→20:00)
[2017-10-22] MEDS: Albuterol-Ipratrop 3 mg / 0.5 (3 ml) UD INH SCH ×4 (01:32→19:33)
--- NOTE | 2017-10-22 02:04 | PN ---
DATE: SUBJECTIVE: The patient was feeling better today. She did get some food. She was in a better mood. Still remains tachycardiac. She was seen around 6:25 today, and she was in really good mood now, and denied any pains anywhere. PHYSICAL EXAMINATION: VITAL SIGNS: Temperature 97.5, pulse is 103, respiratory rate of 17, and blood pressure 110/70. LUNGS: Clear. No crackles or rales present. She has on the left side. HEART: S1 and S2 is regular. ABDOMEN: Soft. Nontender. No guarding. No rigidity present and her alirio are intact of the surgical site. EXTREMITIES: Have no edema. LABORATORY DATA: White count is 7.8, hemoglobin 9.9, hematocrit 29.9, platelet count is 358. BUN is 14, creatinine is 0.7, and sputum grow yeast, and the last chest x-ray showed moderate venous congestion. IMPRESSION: She has improved a lot. She is status post extubation. She had exploratory lab for ischemic bowel and now is improving, and hopefully, I would be able to discontinue antibiotics by Tuesday. We will follow, however. She still has some tachycardia. Reji Lawson MD
[2017-10-22] MEDS: Meropenem 1 GM in Sodium Chloride 0.9% 100 ML IVPB SCH ×3 (06:00→21:55)
[2017-10-22] MEDS: metroNIDAZOLE IV 500 mg/100 ml 500 MG/100 ML BAG IVPB SCH ×3 (06:04→21:00)
[2017-10-22] MEDS: Levothyroxine 50 MCG TAB PO SCH (06:05)
[2017-10-22 06:54] LABS: BASO # 0.1 K/uL (0.0-0.2); BASO % 0.8 % (0.0-2.0); EOS # 0.2 K/uL (0.0-0.7); EOS % 3.1 % (0.0-4.0); HEMOGLOBIN 9.7 g/dL (11.0-16.0); LYMPH # 1.6 K/uL (1.0-4.3); LYMPH % 22.9 % (20.0-40.0); MEAN CELL VOLUME 89.3 fL (81.0-99.0); MEAN CORPUSCULAR HEMOGLOBIN 30.4 pg (27.0-31.0); MEAN CORPUSCULAR HGB CONC 34.1 g/dL (33.0-37.0); MEAN PLATELET VOLUME 9.3 fL (7.2-11.7); MONO # 0.8 K/uL (0.0-0.8); MONO % 11.7 % (0.0-10.0); NEUT # 4.2 K/uL (1.8-7.0); NEUT % 61.5 % (50.0-75.0); NRBC % 0.1 % (0.0-2.0); RBC 3.18 Mil/uL (3.80-5.20); RED CELL DISTRIBUTION WIDTH 15.4 % (11.5-14.5); WHITE BLOOD COUNT 6.8 K/uL (4.8-10.8)
[2017-10-22 07:05] LABS: ALB/GLOB RATIO 0.8 (1.0-2.1); ALBUMIN 2.2 g/dL (3.5-5.0); ALT/SGPT 34 U/L (9-52); AST/SGOT 22 U/L (14-36); BLOOD UREA NITROGEN 11 mg/dL (7-17); CALCIUM 7.9 mg/dl (8.6-10.4); GFR AFRICAN-AMERICAN > 60; GFR NON-AFRICAN AMERICAN > 60; MAGNESIUM 1.7 mg/dL (1.6-2.3)
[2017-10-22] MEDS: (Novolin R) Insulin Human Regular 100 units/ml vial SC SCH ×4 (07:30→22:00)
--- NOTE | 2017-10-22 08:26 | CP.PCM.PN ---
<DanayMaynor - Last Filed: 10/22/17 10:29> Subjective - Date & Time of Evaluation Date of Evaluation: 10/22/17 Time of Evaluation: 08:47 - Subjective Subjective: Cardiology progress note Patient seen and examined at bedside. Per nursing, patient had soft brown stools overnight, no black tarry stools. Patient is doing well, and states that she is in great spirits. No complaints at this time, wants to get out of bed today. No calf pain (patient has been off anticoagulation for awhile now). Objective - Vital Signs/Intake and Output Vital Signs (last 24 hours): Temp Pulse Resp BP Pulse Ox 97.9 F 95 H 20 123/69 95 10/22/17 04:00 10/22/17 04:00 10/22/17 04:00 10/22/17 04:00 10/22/17 04:00 Intake and Output: 10/22/17 10/22/17 06:59 18:59 Intake Total 2610 280 Output Total 455 300 Balance 2155 -20 - Medications Medications: Current Medications Acetaminophen (Tylenol 325mg Tab) 650 mg PO Q6 PRN PRN Reason: Fever >100.4 F Albuterol/Ipratropium (Duoneb 3 Mg/0.5 Mg (3 Ml) Ud) 3 ml INH RQ6 [facility] Last Admin: 10/22/17 08:10 Dose: 3 ml Diltiazem HCl (Cardizem) 60 mg PO Q6 [facility] Last Admin: 10/22/17 06:05 Dose: 60 mg Metronidazole (Flagyl) 500 mg in 100 mls @ 100 mls/hr IVPB Q8 [facility] Last Admin: 10/22/17 06:04 Dose: 100 mls/hr Meropenem 1 gm/ Sodium (Chloride) 100 mls @ 100 mls/hr IVPB Q8H [facility] Last Admin: 10/22/17 06:00 Dose: 100 mls/hr Insulin Human Regular (Novolin R) 0 unit SC ACHS [facility] PRN Reason: Protocol Last Admin: 10/21/17 21:54 Dose: Not Given Levothyroxine Sodium (Synthroid) 50 mcg PO DAILY@0630 [facility] Last Admin: 10/22/17 06:05 Dose: 50 mcg Losartan Potassium (Cozaar) 100 mg PO DAILY [facility] Last Admin: 10/21/17 14:58 Dose: 100 mg Metoprolol Succinate (Toprol Xl) 25 mg PO DAILY [facility] Last Admin: 10/21/17 18:11 Dose: 25 mg Mupirocin (Bactroban Ointment) 0 gm TOP BID [facility] Last Admin: 10/21/17 18:11 Dose: 1 gm Ondansetron HCl (Zofran Inj) 4 mg IVP Q6H PRN PRN Reason: Nausea/Vomiting Last Admin: 10/10/17 21:10 Dose: 4 mg Pantoprazole Sodium (Protonix Inj) 40 mg IVP Q12H [facility] Last Admin: 10/21/17 21:37 Dose: 40 mg Polyethylene Glycol (Miralax) 17 gm PO BID PRN PRN Reason: Constipation Last Admin: 10/07/17 10:14 Dose: 17 gm Rosuvastatin Calcium (Crestor) 5 mg NG HS [facility] Last Admin: 10/21/17 21:35 Dose: 5 mg Saccharomyces Boulardii (Florastor) 250 mg NG BID [facility] Last Admin: 10/21/17 18:11 Dose: 250 mg Vitamin A (Vitamin A & D Oint Ud Foilpak) 0.5 ea TOP Q4 [facility] Last Admin: 10/22/17 04:00 Dose: 0.5 ea - Labs Labs: 10/22/17 06:40 10/22/17 06:38 PT 14.3 SECONDS (9.7-12.2) H 10/17/17 22:24 INR 1.2 10/17/17 22:24 APTT 27 SECONDS (21-34) 10/17/17 22:24 Assessment and Plan - Assessment and Plan (Free Text) Assessment: For extensive Assessment and Plan history, please see note from 10/18, at the bottom in italics; and see note from 10/20 at bottom in italics Acute Assessments and Plan: 77 year old female with extensive cardiac history presented with chest pain on this admission, ACS ruled out, Cath performed. Patient also had new onset atrial fibrillation which has now resolved with diltiazem, amiodarone, and metoprolol. Patient had a code blue on 10/17/17 for pulselessness and respiratory distress. Patient was brought to [facility] with Bicarb and Epi. Diminished pulse and dyspnea are likely 2/2 GI bleed, as patient has had black, tarry stools for a couple of days. Eliquis on hold, Dr. Boland has performed EGD - please see findings in his note. Oropharyngeal Yeast Infection - Consider fluconazole or topical nystatin - Management per primary. ID on board New-Onset Atrial Fibrillation - Resolved - Rate control: Metoprolol 25 - Rhythm management: Diltiazem and Amiodarone *Patient LFT's are fine and no signs of pulmonary fibrosis. However, her TSH is above normal limits. Observe. 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 Nystatin <Babak Childs - Last Filed: 10/22/17 10:44> Objective - Vital Signs/Intake and Output Vital Signs (last 24 hours): Temp Pulse Resp BP Pulse Ox 98.0 F 68 18 101/38 L 95 10/22/17 08:00 10/22/17 10:00 10/22/17 09:00 10/22/17 07:08 10/22/17 09:00 Intake and Output: 10/22/17 10/22/17 06:59 18:59 Intake Total 2610 640 Output Total 455 302 Balance 2155 338 - Medications Medications: Current Medications Acetaminophen (Tylenol 325mg Tab) 650 mg PO Q6 PRN PRN Reason: Fever >100.4 F Albuterol/Ipratropium (Duoneb 3 Mg/0.5 Mg (3 Ml) Ud) 3 ml INH RQ6 [facility] Last Admin: 10/22/17 08:10 Dose: 3 ml Diltiazem HCl (Cardizem) 60 mg PO Q6 [facility] Last Admin: 10/22/17 06:05 Dose: 60 mg Metronidazole (Flagyl) 500 mg in 100 mls @ 100 mls/hr IVPB Q8 [facility] Last Admin: 10/22/17 06:04 Dose: 100 mls/hr Meropenem 1 gm/ Sodium (Chloride) 100 mls @ 100 mls/hr IVPB Q8H [facility] Last Admin: 10/22/17 06:00 Dose: 100 mls/hr Insulin Human Regular (Novolin R) 0 unit SC ACHS [facility] PRN Reason: Protocol Last Admin: 10/21/17 21:54 Dose: Not Given Levothyroxine Sodium (Synthroid) 50 mcg PO DAILY@0630 [facility] Last Admin: 10/22/17 06:05 Dose: 50 mcg Losartan Potassium (Cozaar) 100 mg PO DAILY [facility] Last Admin: 10/22/17 10:05 Dose: 100 mg Metoprolol Succinate (Toprol Xl) 25 mg PO DAILY [facility] Last Admin: 10/22/17 10:06 Dose: 25 mg Mupirocin (Bactroban Ointment) 0 gm TOP BID [facility] Last Admin: 10/22/17 09:58 Dose: 1 gm Ondansetron HCl (Zofran Inj) 4 mg IVP Q6H PRN PRN Reason: Nausea/Vomiting Last Admin: 10/10/17 21:10 Dose: 4 mg Pantoprazole Sodium (Protonix Inj) 40 mg IVP Q12H [facility] Last Admin: 10/22/17 10:05 Dose: 40 mg Polyethylene Glycol (Miralax) 17 gm PO BID PRN PRN Reason: Constipation Last Admin: 10/07/17 10:14 Dose: 17 gm Rosuvastatin Calcium (Crestor) 5 mg NG HS [facility] Last Admin: 10/21/17 21:35 Dose: 5 mg Saccharomyces Boulardii (Florastor) 250 mg NG BID [facility] Last Admin: 10/22/17 10:05 Dose: 250 mg Vitamin A (Vitamin A & D Oint Ud Foilpak) 0.5 ea TOP Q4 [facility] Last Admin: 10/22/17 10:06 Dose: 0.5 ea - Labs Labs: 10/22/17 06:40 10/22/17 06:38 PT 14.3 SECONDS (9.7-12.2) H 10/17/17 22:24 INR 1.2 10/17/17 22:24 APTT 27 SECONDS (21-34) 10/17/17 22:24 Assessment and Plan (1) Chest discomfort Status: Acute (2) Chest pain Status: Acute (3) Hypertension Status: Acute Attending/Attestation - Attestation I have personally seen and examined this patient.: Yes I have fully participated in the care of the patient.: Yes I have reviewed all pertinent clinical information, including history, physical exam and plan: Yes
--- NOTE | 2017-10-22 09:33 | CP.PCM.PN ---
Subjective - Date & Time of Evaluation Date of Evaluation: 10/22/17 Time of Evaluation: 08:45 - Subjective Subjective: General Surgery Dr. Hinton Pt S&E @bedside. NAEO. PMD in w/ pt during rounds. (+)BM/Flatus Objective - Vital Signs/Intake and Output Vital Signs (last 24 hours): Temp Pulse Resp BP Pulse Ox 97.9 F 95 H 20 123/69 95 10/22/17 04:00 10/22/17 04:00 10/22/17 04:00 10/22/17 04:00 10/22/17 04:00 Intake and Output: 10/22/17 10/22/17 06:59 18:59 Intake Total 2610 280 Output Total 455 300 Balance 2155 -20 - Medications Medications: Current Medications Acetaminophen (Tylenol 325mg Tab) 650 mg PO Q6 PRN PRN Reason: Fever >100.4 F Albuterol/Ipratropium (Duoneb 3 Mg/0.5 Mg (3 Ml) Ud) 3 ml INH RQ6 [facility] Last Admin: 10/22/17 08:10 Dose: 3 ml Diltiazem HCl (Cardizem) 60 mg PO Q6 [facility] Last Admin: 10/22/17 06:05 Dose: 60 mg Metronidazole (Flagyl) 500 mg in 100 mls @ 100 mls/hr IVPB Q8 TIM Last Admin: 10/22/17 06:04 Dose: 100 mls/hr Meropenem 1 gm/ Sodium (Chloride) 100 mls @ 100 mls/hr IVPB Q8H [facility] Last Admin: 10/22/17 06:00 Dose: 100 mls/hr Insulin Human Regular (Novolin R) 0 unit SC ACHS TIM PRN Reason: Protocol Last Admin: 10/21/17 21:54 Dose: Not Given Levothyroxine Sodium (Synthroid) 50 mcg PO DAILY@0630 [facility] Last Admin: 10/22/17 06:05 Dose: 50 mcg Losartan Potassium (Cozaar) 100 mg PO DAILY [facility] Last Admin: 10/21/17 14:58 Dose: 100 mg Metoprolol Succinate (Toprol Xl) 25 mg PO DAILY [facility] Last Admin: 10/21/17 18:11 Dose: 25 mg Mupirocin (Bactroban Ointment) 0 gm TOP BID [facility] Last Admin: 10/21/17 18:11 Dose: 1 gm Ondansetron HCl (Zofran Inj) 4 mg IVP Q6H PRN PRN Reason: Nausea/Vomiting Last Admin: 10/10/17 21:10 Dose: 4 mg Pantoprazole Sodium (Protonix Inj) 40 mg IVP Q12H [facility] Last Admin: 10/21/17 21:37 Dose: 40 mg Polyethylene Glycol (Miralax) 17 gm PO BID PRN PRN Reason: Constipation Last Admin: 10/07/17 10:14 Dose: 17 gm Rosuvastatin Calcium (Crestor) 5 mg NG HS [facility] Last Admin: 10/21/17 21:35 Dose: 5 mg Saccharomyces Boulardii (Florastor) 250 mg NG BID [facility] Last Admin: 10/21/17 18:11 Dose: 250 mg Vitamin A (Vitamin A & D Oint Ud Foilpak) 0.5 ea TOP Q4 [facility] Last Admin: 10/22/17 04:00 Dose: 0.5 ea - Labs Labs: 10/22/17 06:40 10/22/17 06:38 PT 14.3 SECONDS (9.7-12.2) H 10/17/17 22:24 INR 1.2 10/17/17 22:24 APTT 27 SECONDS (21-34) 10/17/17 22:24 - Constitutional Appears: Non-toxic, No Acute Distress - Head Exam Head Exam: NORMAL INSPECTION - Eye Exam Eye Exam: Normal appearance - ENT Exam ENT Exam: Mucous Membranes Moist - Respiratory Exam Respiratory Exam: NORMAL BREATHING PATTERN. absent: Respiratory Distress - Extremities Exam Extremities Exam: Normal Inspection - Neurological Exam Neurological Exam: Alert, Awake - Psychiatric Exam Psychiatric exam: Normal Affect, Normal Mood - Skin Skin Exam: Normal Color Assessment and Plan - Assessment and Plan (Free Text) Assessment: 77 y/o F POD#14 s/p ex-lap w/ small bowel resection - ADAT - monitor vitals - monitor bowel function - H/H stable - cont medical management per primary - encourage OOB to chair/Amb/IS use Pt discussed w/ Dr. Jamaal Hernandez DO PGY2
[2017-10-22] MEDS: Saccharomyces Boulardi 250 mg Cap NG SCH ×2 (10:05→18:12)
[2017-10-22] MEDS: Metoprolol Succinate 25 mg XL Tab PO SCH (10:06)
--- NOTE | 2017-10-22 11:15 | RAD ---
HISTORY: r/o fluid overload COMPARISON: Comparison made with chest radiograph 10/20/2017 FINDINGS: Interval removal ETT and NGT. No change left IJ central line with tip the left brachiocephalic vein. LUNGS: Mild pulmonary vascular congestive changes which appear more confluent in the left mid to lower lung zone again noted. PLEURA: No significant pleural effusion identified, no pneumothorax apparent. CARDIOVASCULAR: No change sternotomy wires CABG clips or bipolar pacemaker. OSSEOUS STRUCTURES: No significant abnormalities. VISUALIZED UPPER ABDOMEN: Normal. OTHER FINDINGS: None. IMPRESSION: Interval removal ETT and NGT. Mild vascular congestive changes with more confluent opacity in the left mid to lower lung field.
--- NOTE | 2017-10-22 13:23 | CP.PCM.PN ---
Subjective - Date & Time of Evaluation Date of Evaluation: 10/22/17 Time of Evaluation: 09:15 - Subjective Subjective: Medical Attending Note Patient seen and examined and case discussed with day-time resident. Patient seen this morning. Patient is in pleasant spirits. Patient remembers me from before. Patient denies any pain. Patient tolerated her diet yesterday. Patient completed the swallow and physical therapy evaluation. Patient is recommended for TYRELL, reports she would like to go home but she admits she is weak. Patient instructed that neurology had recommended for EEG to rule out seizure. She is amenable. Objective - Vital Signs/Intake and Output Vital Signs (last 24 hours): Temp Pulse Resp BP Pulse Ox 98.0 F 68 18 101/38 L 95 10/22/17 12:00 10/22/17 10:00 10/22/17 09:00 10/22/17 07:08 10/22/17 09:00 Intake and Output: 10/22/17 10/22/17 06:59 18:59 Intake Total 2610 640 Output Total 455 302 Balance 2155 338 - Medications Medications: Current Medications Acetaminophen (Tylenol 325mg Tab) 650 mg PO Q6 PRN PRN Reason: Fever >100.4 F Albuterol/Ipratropium (Duoneb 3 Mg/0.5 Mg (3 Ml) Ud) 3 ml INH RQ6 [facility] Last Admin: 10/22/17 08:10 Dose: 3 ml Diltiazem HCl (Cardizem) 60 mg PO Q6 [facility] Last Admin: 10/22/17 12:41 Dose: 60 mg Metronidazole (Flagyl) 500 mg in 100 mls @ 100 mls/hr IVPB Q8 [facility] Last Admin: 10/22/17 06:04 Dose: 100 mls/hr Meropenem 1 gm/ Sodium (Chloride) 100 mls @ 100 mls/hr IVPB Q8H [facility] Last Admin: 10/22/17 06:00 Dose: 100 mls/hr Insulin Human Regular (Novolin R) 0 unit SC ACHS TIM PRN Reason: Protocol Last Admin: 10/22/17 12:35 Dose: Not Given Levothyroxine Sodium (Synthroid) 50 mcg PO DAILY@0630 [facility] Last Admin: 10/22/17 06:05 Dose: 50 mcg Losartan Potassium (Cozaar) 100 mg PO DAILY [facility] Last Admin: 10/22/17 10:05 Dose: 100 mg Metoprolol Succinate (Toprol Xl) 25 mg PO DAILY [facility] Last Admin: 10/22/17 10:06 Dose: 25 mg Mupirocin (Bactroban Ointment) 0 gm TOP BID [facility] Last Admin: 10/22/17 09:58 Dose: 1 gm Ondansetron HCl (Zofran Inj) 4 mg IVP Q6H PRN PRN Reason: Nausea/Vomiting Last Admin: 10/10/17 21:10 Dose: 4 mg Pantoprazole Sodium (Protonix Inj) 40 mg IVP Q12H [facility] Last Admin: 10/22/17 10:05 Dose: 40 mg Polyethylene Glycol (Miralax) 17 gm PO BID PRN PRN Reason: Constipation Last Admin: 10/07/17 10:14 Dose: 17 gm Rosuvastatin Calcium (Crestor) 5 mg NG HS [facility] Last Admin: 10/21/17 21:35 Dose: 5 mg Saccharomyces Boulardii (Florastor) 250 mg NG BID [facility] Last Admin: 10/22/17 10:05 Dose: 250 mg Vitamin A (Vitamin A & D Oint Ud Foilpak) 0.5 ea TOP Q4 [facility] Last Admin: 10/22/17 12:41 Dose: 0.5 ea - Labs Labs: 10/22/17 06:40 10/22/17 06:38 PT 14.3 SECONDS (9.7-12.2) H 10/17/17 22:24 INR 1.2 10/17/17 22:24 APTT 27 SECONDS (21-34) 10/17/17 22:24 - Constitutional Appears: Non-toxic, No Acute Distress - Head Exam Head Exam: NORMAL INSPECTION - Eye Exam Eye Exam: EOMI - ENT Exam ENT Exam: Mucous Membranes Moist - Respiratory Exam Respiratory Exam: Clear to Ausculation Bilateral, NORMAL BREATHING PATTERN - Cardiovascular Exam Cardiovascular Exam: REGULAR RHYTHM, +S1, +S2 - GI/Abdominal Exam GI & Abdominal Exam: Soft, Normal Bowel Sounds Additional comments: no rigid no rebound no guarding midline incision: healing + BS presents - Extremities Exam Extremities Exam: Normal Capillary Refill - Neurological Exam Neurological Exam: Alert, Awake, Oriented x3 - Psychiatric Exam Psychiatric exam: Normal Affect, Normal Mood - Skin Skin Exam: Dry, Normal Color, Warm Attending/Attestation - Attestation I have personally seen and examined this patient.: Yes I have fully participated in the care of the patient.: Yes I have reviewed all pertinent clinical information, including history, physical exam and plan: Yes Notes (Text): 1.Bowel Ischemia Abdominal Pain Abdominal Aorta Aneurysm * General surgery: Dr. Hinton on consult-->given LLQ abdominal pain * 10/08/17: Exploratory laparotomy, small bowel resection and primary anastomosis. EBL: 100; No Drains * Vascular surgery consult: Dr. Inman to follow for evaluation--> given aborminal aorta focal contained dissection * GI, Dr. Boland group reconsulted given rectal bleeding * CT Dissection protocol (10/04/17): No evidence of thoracic aortic aneurysm, dissection, or rupture. No acute pulmonary embolism, Hepatic cysts, further findings available in the report including. Focal aneurysmal dilatation of infrarenal abdominal aorta measuring 2.6cm * Meropenem 1gram IVPB Q 8H (10/07/17) * Flagyl 500mg IVPB Q8H (active since 10/07/17) * CT abdomen/pelvis PO (10/07/17); Small bowel pneumatosis and portal venous gas concerning for bowel ischemia and necrosis. Multiple liver cysts. Nonobstructing calcifications in the left kidney. 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 In addition to the possible partial obstruction, there is prominent wall and fold enhancement of multiple small bowel loops suggesting enteritis. * 10/17: Hemoglobin did drop today; require 2 units of PRBC and black tarry stool observed both in NGT as well as naturally. * 10/18: patient had additional 2 episodes of black tarry stool; hgb improved to 11.3 post 2 units but dropped again to 10.7; GI has evaluated patient for endoscopic procedure; awaiting cardiac clearance requested by GI * 10/19: POD 1 Endoscopy: Esophageal ulcer, Z-line regular, normal stomach, erythematous duodenopathy, enterostomy, friable mucosa, inflammation and ulceration, no ulcer--c/w IV PP and monitor H/H * 10/20: POD 2 Endoscopy; GI has signed off. Discussed case with Dr. Inman and reviewed CT angiography, SMA is patent with calcification which was reviewed with IR, Dr Galvez. Will continue to monitor H/H * 2/2: POD 3 endoscopy; no events overnight; hemoglobin stable in high 9s Awaiting swallow eval * 2/3: POD 4 endoscopy; no events overnight; passed swallow eval last night 2. Chest Pain New LBBB History of Coronary Artery Disease History of CABG History of Diabetes Lipid Disorder History of Hypertension History of Severe Aortic Stenosis History of Pacemaker; prior Sick Sinus syndrome New Onset Atrial Fibrillation * Cardiology (Dr. Mckeon) on board-->help appreciated * Cardiac cath (10/06/17) completed; discussed with Dr. Mckeon including RCA occlusion about 50%-->will need intervention in future * Echocardiogram (10/06/17): left ventricular function is normal, left ventricular ejection fraction is within the normal range. No regional wall motion abnormalities noted. Left atrium is mildly dilated. Mild to Moderate valvular aortic stenosis. Calculated aortic valve area is 1.1cm squared. Donna regurgitation is mild to moderate. * Prior cardiac workup: * Holter in 2017 showed NSR with max HR 121, SVT at HR of 146 and rare VPC, isolated APC. * Cardiac Cath in 2015 showed distal main coronary artery 70-80% concentric stenosis mid LAD 70-80% stenosis, RCA 20-30% non-obstructing stenosis, and large diagonal branch 85% proximal stenosis. with LVEF of 60%. Basal inferior wall akinetic. * revious ECHO showed borderline concentric LVH with grade I abnormal relaxation pattern, severe aortic stenosis, mild mitral regurg, and mild to moderate pulmonic regurg. LVEF was 60-65%. History of pacemaker placement per chart review. * CT Dissection protocol (10/04/17): No evidence of thoracic aortic aneurysm, dissection, or rupture. No acute pulmonary embolism, Hepatic cysts, further findings available in the report inclduing Focal aneurysmal dilatation of infrarenal abdominal aorta measuring 2.6cm * Elevated probnp: 1580 * CARLYN: 7 * T, cholestrol: 159, LDL: 91, HDL: 41 * [id number]: 7.1 * [employer] was interrogated by [employer] and it was deemed to be working properly * Patient had episodes of tachycardia 10/10/17 and 10/11/17 and was placed on Cardizem Drip 10 mg/hour and Lopressor 5 mg IV Q6H which were discontinued on . * Code blue 10/17/17; intubated and ROSC achieved, on IV fluid, Levofed, off PO cardiazem-->resident on cardiology and surgery are aware--> cardiology to follow with EP-Cardiology in regards to pacemaker * 10/18: patient had additional 2 episodes of black tarry stool; hgb improved to 11.3 post 2 units but dropped again to 10.7; GI has evaluated patient for endoscopic procedure; awaiting cardiac clearance requested by GI * 10/21: POD 3 endoscopy; no events overnight; hemoglobin stable in high 9s Awaiting swallow eval Current Cardiac Meds: * Eliquis 5 mg PO 2x/day started 10/13/17 and was PUT ON HOLD due to Bright Red Blood Per Rectum on 10/15/17 * Aspirin 81 mg NG 1x/day PUT ON HOLD due to Bright Red Blood Per Rectum on 10/15 * Black tarry stool observed 10/17/17 with drop in hemoglobin * Diltiazem 60 mg PO Q6H * Crestor 5mg PO QHS * Cozaar 100 mg NG 1x/day * Toprol XL 25mg PO daily 3. Sepsis Urinary Tract Infection Bandemia + Yeast * Infectious Disease (Dr. Lawson) on the case-->help appreciated * Code sepsis 10/07/17 * Blood cultures (10/06/17): Negative at 5 days * Blood cultures (10/07/17): Negative at 5 days * Blood Culture (10/16/17): no growth for 3 days * Blood culture (10/18/17): no growth after 48 hours X2 * Procalcitonin has improved * Urine culture (10/07/17): Klebsiella Pneumoanie-->sensitive to Meropenem * Urine Culture (10/11/17): NO GROWTH * Urine culture (10/18/17): no growth * Stool Culture (10/07/17): Negative * Ova and Parasite (10/07/17): No ova and parasite * D/C Meropenem 1gram IVPB Q 8H (10/07/17- active) * D/C Flagyl 500mg IVPB Q8H (10/07/17- active) * Diflucan 100mg IVPB daily (active 10/23/17) * Lactic acid: 2.4 (10/05/17)-->1.8 (10/06/17)-->4.1 (10/07/17)-->2.6 (10/08/17)--> 2.2 (10/08/17) * Has Renee in place--discontinued 10/20/17 * C. dif Negative X2 * occult blood from 10/17 Positive 4. Melena Bright Red Blood Per Rectum * 2 episodes of bright red blood per rectum on 10/15/17. * Black tarry stool observed 10/17/17 both fecal matter as well as NGT tube * See findings of CT Angiogram Abdomen/Pelvis in Assessment and Plan #1 above * She received 1 unit PRBC 10/15/17 night and 2 more units of PRBC 10/17/17 * H/H slowly downtrending (9.8/ 9.7 * Chemical anticoagulation on hold since 10/15/18 * Endoscopy (10/18/17): Esophageal ulcer, Z-line regular, normal stomach, erythematous duodenopathy, enterostomy, friable mucosa, inflammation and ulceration, no ulcer--c/w IV PP and monitor H/H 5. History of Chronic Constipation History of Liver cysts * GI (Dr. Boland) on case-->had signed off previously; reconsulted given rectal bleeding * Given patient is asymptomatic and appearance of lesions on imaging consistent with cystic disease, no further workup is indicated at this time. If patient becomes symptomatic, there is consideration for surgical intervention. * Maintain bowel regimen to prevent constipation * Suggest additional outpatient follow up and age appropriate screening colonoscopy if patient willing to undergo procedure. No further planned GI intervention * Hepatitis panel: negative * Please see #1 for further details. * Liver functions tests elevated in light of code blue 10/17/17 6. History of Hypothyroidism * TSH: 2.92; Free T4: 1.49 * Thyroid studies elevated * Off amiodarone 10/17/17 * Synthroid 50mcg PO daily 7. History of Breast Cancer * Patient history of lumpectomy * She is being following serially * Patient is not on any chemotherapeutic agent 8. History of HTN * Losartan and Diltiazem as above 9. History of HLD * Restarted Crestor 10/12/17 10. History of DM * Novolin R SC Q6H Sliding Scale---ACHS protocol 11. Episode of Confusion * This apparently occurred on night of 10/15/17: secondary to ing? * Neurology (Dr. Mazariegos) on the case-->requesting for EEG and MRI Brain when stable * Patient is AAOx3 at the time of my exam * CT Head did not show any bleed or evidence of CVA * MRI unable to be completed: patient has a pacemaker * Order for EEG 12. Hypernatremia-->resolved * Resolved 13. Prophylactic care * Anticoagulation was held given melena 10/07/17 but she was started on Heparin Drip 10/09/17 secondary to fear of showering emboli: monitor HgB/Hct which has been stable since the start of the Heparin Drip. The Heparin Drip was discontinued and Eliquis 5 mg PO Q12H was started 10/13/17 and then discontinued on 10/15/17 secondary to bright red blood per rectum on 10/15/17 * Palliative Care consult given patient wanted to discuss code status initially during hospitalization * Florastor 250 mg PO 2x/day * Zofran 4 mg IV Q6H PRN N/V * Protonix 40 mg IV BID * Off pressor * Reintubated 10/17; extubated 10/20/17 * Víctor d/c 10/20/1710/17: Son Theodore updated at bedside. * Code blue this afternoon, reintubated, epi, bicarbonate, and CPR, ROSC achieved. Following ROSC, patient able to follow directions Responds to name and able to move arms when directed. 2 units of PRBC ordered. On pressor. Off amiodarone. 10/18: On pressor, Hgb dropped to 10.7, has had more episodes of black tarry stool. GI considering endoscopic evaluation pending cardiac clearance. DIscussed with GI fellow who has spoken with Dr. mckeon, cardiology. 10/19:Had episode of black tarry stool; on pressor, on protonix drip 10/20: Had episode of green stool. GI has signed off. Extubated today. H/H slowly downtrending. 22: no events overnight. awaiting swallow eval; hemoglobin stable in the 9s. 3: Patient had soft brown stool per nursing. She passed swallow eval yesterday and PT worked with her yesterday. Patient would like to go home. However, she needs to continue to work with physical therapy and likely to be appropriate for TYRELL. Per neurology workup, unable to get MRI secondary to having a pacemaker. Patient is ordered for EEG and start Diflucan tomorrow.
[2017-10-23] MEDS: Albuterol-Ipratrop 3 mg / 0.5 (3 ml) UD INH SCH ×4 (01:40→19:51)
[2017-10-23] MEDS: Vitamins A & D Oint UD Foilpak TOP SCH ×6 (04:00→20:30)
[2017-10-23] MEDS: Levothyroxine 50 MCG TAB PO SCH (06:07)
[2017-10-23 06:46] LABS: BASO % 0.3 % (0.0-2.0); EOS # 0.2 K/uL (0.0-0.7); EOS % 3.5 % (0.0-4.0); HEMOGLOBIN 9.5 g/dL (11.0-16.0); LYMPH # 1.6 K/uL (1.0-4.3); LYMPH % 24.4 % (20.0-40.0); MEAN CELL VOLUME 89.4 fL (81.0-99.0); MEAN CORPUSCULAR HEMOGLOBIN 30.3 pg (27.0-31.0); MEAN CORPUSCULAR HGB CONC 33.9 g/dL (33.0-37.0); MEAN PLATELET VOLUME 9.3 fL (7.2-11.7); MONO # 0.8 K/uL (0.0-0.8); MONO % 12.1 % (0.0-10.0); NEUT % 59.7 % (50.0-75.0); NRBC % 0.1 % (0.0-2.0); RBC 3.13 Mil/uL (3.80-5.20); RED CELL DISTRIBUTION WIDTH 15.6 % (11.5-14.5); WHITE BLOOD COUNT 6.7 K/uL (4.8-10.8)
[2017-10-23 06:59] LABS: ALB/GLOB RATIO 0.8 (1.0-2.1); ALBUMIN 2.2 g/dL (3.5-5.0); ALT/SGPT 33 U/L (9-52); AST/SGOT 20 U/L (14-36); BLOOD UREA NITROGEN 10 mg/dL (7-17); GFR AFRICAN-AMERICAN > 60; GFR NON-AFRICAN AMERICAN > 60; MAGNESIUM 1.7 mg/dL (1.6-2.3)
[2017-10-23] MEDS: (Novolin R) Insulin Human Regular 100 units/ml vial SC SCH ×4 (08:06→22:20)
--- NOTE | 2017-10-23 08:45 | CP.PCM.PN ---
Subjective - Date & Time of Evaluation Date of Evaluation: 10/23/17 Time of Evaluation: 08:40 - Subjective Subjective: Medical Attending Note: Patient seen and examined this morning. Patient denies headache, denies chest pain, denies palpitations, denies abdominal pain, is very eager to eat food. Objective - Vital Signs/Intake and Output Vital Signs (last 24 hours): Temp Pulse Resp BP Pulse Ox 98.7 F 88 12 120/38 L 86 L 10/23/17 04:00 10/23/17 07:00 10/23/17 07:00 10/23/17 03:08 10/23/17 07:00 Intake and Output: 10/23/17 10/23/17 06:59 18:59 Intake Total 680 Output Total 650 Balance 30 - Medications Medications: Current Medications Acetaminophen (Tylenol 325mg Tab) 650 mg PO Q6 PRN PRN Reason: Fever >100.4 F Albuterol/Ipratropium (Duoneb 3 Mg/0.5 Mg (3 Ml) Ud) 3 ml INH RQ6 [facility] Last Admin: 10/23/17 07:49 Dose: 3 ml Diltiazem HCl (Cardizem) 60 mg PO Q6 [facility] Last Admin: 10/23/17 06:06 Dose: 60 mg Fluconazole (Diflucan Iv 100 Mg/50 Ml Ns) 50 mls @ 100 mls/hr IVPB DAILY [facility] Insulin Human Regular (Novolin R) 0 unit SC ACHS [facility] PRN Reason: Protocol Last Admin: 10/23/17 08:06 Dose: Not Given Levothyroxine Sodium (Synthroid) 50 mcg PO DAILY@0630 [facility] Last Admin: 10/23/17 06:07 Dose: 50 mcg Losartan Potassium (Cozaar) 100 mg PO DAILY [facility] Last Admin: 10/22/17 10:05 Dose: 100 mg Metoprolol Succinate (Toprol Xl) 25 mg PO DAILY [facility] Last Admin: 10/22/17 10:06 Dose: 25 mg Mupirocin (Bactroban Ointment) 0 gm TOP BID [facility] Last Admin: 10/22/17 18:12 Dose: 1 gm Ondansetron HCl (Zofran Inj) 4 mg IVP Q6H PRN PRN Reason: Nausea/Vomiting Last Admin: 10/10/17 21:10 Dose: 4 mg Pantoprazole Sodium (Protonix Inj) 40 mg IVP Q12H [facility] Last Admin: 10/22/17 21:41 Dose: 40 mg Polyethylene Glycol (Miralax) 17 gm PO BID PRN PRN Reason: Constipation Last Admin: 10/07/17 10:14 Dose: 17 gm Rosuvastatin Calcium (Crestor) 5 mg NG HS [facility] Last Admin: 10/22/17 21:42 Dose: 5 mg Saccharomyces Boulardii (Florastor) 250 mg NG BID [facility] Last Admin: 10/22/17 18:12 Dose: 250 mg Vitamin A (Vitamin A & D Oint Ud Foilpak) 0.5 ea TOP Q4 [facility] Last Admin: 10/23/17 08:01 Dose: 0.5 ea - Labs Labs: 10/23/17 06:36 10/23/17 06:36 PT 14.3 SECONDS (9.7-12.2) H 10/17/17 22:24 INR 1.2 10/17/17 22:24 APTT 27 SECONDS (21-34) 10/17/17 22:24 - Constitutional Appears: Non-toxic, No Acute Distress - Head Exam Head Exam: NORMAL INSPECTION - Eye Exam Eye Exam: EOMI - ENT Exam ENT Exam: Mucous Membranes Moist - Respiratory Exam Respiratory Exam: Wheezes (scattered), NORMAL BREATHING PATTERN. absent: Rales , Respiratory Distress Additional comments: good air exchange - Cardiovascular Exam Cardiovascular Exam: REGULAR RHYTHM, +S1, +S2 Additional comments: Mid incision in the mid-line; Has alirio in the place No drains - GI/Abdominal Exam GI & Abdominal Exam: Soft, Normal Bowel Sounds. absent: Distended, Firm, Guarding, Rigid, Tenderness, Rebound - Neurological Exam Neurological Exam: Alert, Awake, Oriented x3 - Psychiatric Exam Psychiatric exam: Normal Affect, Normal Mood - Skin Skin Exam: Dry, Normal Color, Warm Additional comments: except for the surgery incision Assessment and Plan (1) Ischemic necrosis of small bowel Status: Acute Attending/Attestation - Attestation I have personally seen and examined this patient.: Yes I have fully participated in the care of the patient.: Yes I have reviewed all pertinent clinical information, including history, physical exam and plan: Yes Notes (Text): 1.Bowel Ischemia Abdominal Pain Abdominal Aorta Aneurysm * General surgery: Dr. Hinton on consult-->given LLQ abdominal pain * 10/08/17: Exploratory laparotomy, small bowel resection and primary anastomosis. EBL: 100; No Drains * Vascular surgery consult: Dr. Inman to follow for evaluation--> given aborminal aorta focal contained dissection * GI, Dr. Boland group reconsulted given rectal bleeding * CT Dissection protocol (10/04/17): No evidence of thoracic aortic aneurysm, dissection, or rupture. No acute pulmonary embolism, Hepatic cysts, further findings available in the report including. Focal aneurysmal dilatation of infrarenal abdominal aorta measuring 2.6cm * Meropenem 1gram IVPB Q 8H (10/07/17) * Flagyl 500mg IVPB Q8H (active since 10/07/17) * CT abdomen/pelvis PO (10/07/17); Small bowel pneumatosis and portal venous gas concerning for bowel ischemia and necrosis. Multiple liver cysts. Nonobstructing calcifications in the left kidney. 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 In addition to the possible partial obstruction, there is prominent wall and fold enhancement of multiple small bowel loops suggesting enteritis. * 10/17: Hemoglobin did drop today; require 2 units of PRBC and black tarry stool observed both in NGT as well as naturally. * 10/18: patient had additional 2 episodes of black tarry stool; hgb improved to 11.3 post 2 units but dropped again to 10.7; GI has evaluated patient for endoscopic procedure; awaiting cardiac clearance requested by GI * 10/19:POD 1 Endoscopy: Esophageal ulcer, Z-line regular, normal stomach, erythematous duodenopathy, enterostomy, friable mucosa, inflammation and ulceration, no ulcer--c/w IV PP and monitor H/H * 10/20: POD 2 Endoscopy; GI has signed off. Discussed case with Dr. Inman and reviewed CT angiography, SMA is patent with calcification which was reviewed with IR, Dr Galvez. Will continue to monitor H/H * 2/2: POD 3 endoscopy; no events overnight; hemoglobin stable in high 9s Awaiting swallow eval * 3: POD 4 endoscopy; no events overnight; passed swallow eval last night * 2/4 POD 5 endoscopy; no events overnight 2. Chest Pain New LBBB History of Coronary Artery Disease History of CABG History of Diabetes Lipid Disorder History of Hypertension History of Severe Aortic Stenosis History of Pacemaker; prior Sick Sinus syndrome New Onset Atrial Fibrillation * Cardiology (Dr. Mckeon) on board-->help appreciated * Cardiac cath (10/06/17) completed; discussed with Dr. Mckeon including RCA occlusion about 50%-->will need intervention in future * Echocardiogram (10/06/17): left ventricular function is normal, left ventricular ejection fraction is within the normal range. No regional wall motion abnormalities noted. Left atrium is mildly dilated. Mild to Moderate valvular aortic stenosis. Calculated aortic valve area is 1.1cm squared. Donna regurgitation is mild to moderate. * Prior cardiac workup: * Holter in 2017 showed NSR with max HR 121, SVT at HR of 146 and rare VPC, isolated APC. * Cardiac Cath in 2014 showed distal main coronary artery 70-80% concentric stenosis mid LAD 70-80% stenosis, RCA 20-30% non-obstructing stenosis, and large diagonal branch 85% proximal stenosis. with LVEF of 60%. Basal inferior wall akinetic. * revious ECHO showed borderline concentric LVH with grade I abnormal relaxation pattern, severe aortic stenosis, mild mitral regurg, and mild to moderate pulmonic regurg. LVEF was 60-65%. History of pacemaker placement per chart review. * CT Dissection protocol (10/04/17): No evidence of thoracic aortic aneurysm, dissection, or rupture. No acute pulmonary embolism, Hepatic cysts, further findings available in the report inclduing Focal aneurysmal dilatation of infrarenal abdominal aorta measuring 2.6cm * Elevated probnp: 1580 * CARLYN: 7 * T, cholestrol: 159, LDL: 91, HDL: 41 * [id number]: 7.1 * PaceMaker was interrogated by [employer] and it was deemed to be working properly * Patient had episodes of tachycardia 10/10/17 and 10/11/17 and was placed on Cardizem Drip 10 mg/hour and Lopressor 5 mg IV Q6H which were discontinued on . * Code blue 10/17/17; intubated and ROSC achieved, on IV fluid, Levofed, off PO cardiazem-->resident on cardiology and surgery are aware--> cardiology to follow with EP-Cardiology in regards to pacemaker * 10/18: patient had additional 2 episodes of black tarry stool; hgb improved to 11.3 post 2 units but dropped again to 10.7; GI has evaluated patient for endoscopic procedure; awaiting cardiac clearance requested by GI * 10/21: POD 3 endoscopy; no events overnight; hemoglobin stable in high 9s; passed swallow eval Current Cardiac Meds: * Eliquis 5 mg PO 2x/day started 10/13/17 and was PUT ON HOLD due to Bright Red Blood Per Rectum on 10/15/17 * Aspirin 81 mg NG 1x/day PUT ON HOLD due to Bright Red Blood Per Rectum on 10/15 * Black tarry stool observed 10/17/17 with drop in hemoglobin * Diltiazem 60 mg PO Q6H * Crestor 5mg PO QHS * Cozaar 100 mg NG 1x/day * Toprol XL 25mg PO daily 3. Sepsis Urinary Tract Infection Bandemia + Yeast * Infectious Disease (Dr. Lawson) on the case-->help appreciated * Code sepsis 10/07/17 * Blood cultures (10/06/17): Negative at 5 days * Blood cultures (10/07/17): Negative at 5 days * Blood Culture (10/16/17): no growth for 5 days * Blood culture (10/18/17): no growth after 4 days * Procalcitonin has improved * Urine culture (10/07/17): Klebsiella Pneumoanie-->sensitive to Meropenem * Urine Culture (10/11/17): NO GROWTH * Urine culture (10/18/17): no growth * Stool Culture (10/07/17): Negative * Ova and Parasite (10/07/17): No ova and parasite * Completed Meropenem 1gram IVPB Q 8H (10/07/17- 10/22/17) * Completed Flagyl 500mg IVPB Q8H (10/07/17-10/22/17) * Diflucan 100mg IVPB daily (active 10/23/17) * Lactic acid: 2.4 (10/05/17)-->1.8 (10/06/17)-->4.1 (10/07/17)-->2.6 (10/08/17)--> 2.2 (10/08/17) * D/C Renee 10/20/17 * C. dif Negative X2 * occult blood from 10/17 Positive 4. Melena Bright Red Blood Per Rectum * 2 episodes of bright red blood per rectum on 10/15/17. * Black tarry stool observed 10/17/17 both fecal matter as well as NGT tube * See findings of CT Angiogram Abdomen/Pelvis in Assessment and Plan #1 above * She received 1 unit PRBC 10/15/17 night and 2 more units of PRBC 10/17/17 * H/H slowly downtrending (9.8/ 9.7 * Chemical anticoagulation on hold since 10/15/18 * Endoscopy (10/18/17): Esophageal ulcer, Z-line regular, normal stomach, erythematous duodenopathy, enterostomy, friable mucosa, inflammation and ulceration, no ulcer--c/w IV PP and monitor H/H 5. History of Chronic Constipation History of Liver cysts * GI (Dr. Boland) on case-->had signed off previously; reconsulted given rectal bleeding * Given patient is asymptomatic and appearance of lesions on imaging consistent with cystic disease, no further workup is indicated at this time. If patient becomes symptomatic, there is consideration for surgical intervention. * Maintain bowel regimen to prevent constipation * Suggest additional outpatient follow up and age appropriate screening colonoscopy if patient willing to undergo procedure. No further planned GI intervention * Hepatitis panel: negative * Please see #1 for further details. * Liver functions tests elevated in light of code blue 10/17/17 6. History of Hypothyroidism * TSH: 2.92; Free T4: 1.49 * Thyroid studies elevated * Off amiodarone 10/17/17 * Synthroid 50mcg PO daily 7. History of Breast Cancer * Patient history of lumpectomy * She is being following serially * Patient is not on any chemotherapeutic agent 8. History of HTN * Losartan and Diltiazem as above 9. History of HLD * Restarted Crestor 10/12/17 10. History of DM * Novolin R SC Q6H Sliding Scale---[facility] protocol 11. Episode of Confusion * This apparently occurred on night of 10/15/17: secondary to sundowning? * Neurology (Dr. Mazariegos) on the case-->requesting for EEG and MRI Brain when stable * Patient is AAOx3 at the time of my exam * CT Head did not show any bleed or evidence of CVA * MRI unable to be completed: patient has a pacemaker * Order for EEG--pending 12. Hypernatremia-->resolved * Resolved 13. Prophylactic care * Anticoagulation was held given melena 10/07/17 but she was started on Heparin Drip 10/09/17 secondary to fear of showering emboli: monitor HgB/Hct which has been stable since the start of the Heparin Drip. The Heparin Drip was discontinued and Eliquis 5 mg PO Q12H was started 10/13/17 and then discontinued on 10/15/17 secondary to bright red blood per rectum on 10/15/17 * Palliative Care consult given patient wanted to discuss code status initially during hospitalization * Florastor 250 mg PO 2x/day * Zofran 4 mg IV Q6H PRN N/V * Protonix 40 mg IV BID * Off pressor * Reintubated 10/17; extubated 10/20/17 * Renee d/c 10/20/1710/17: Son Theodore updated at bedside. * Code blue this afternoon, reintubated, epi, bicarbonate, and CPR, ROSC achieved. Following ROSC, patient able to follow directions Responds to name and able to move arms when directed. 2 units of PRBC ordered. On pressor. Off amiodarone. 10/18: On pressor, Hgb dropped to 10.7, has had more episodes of black tarry stool. GI considering endoscopic evaluation pending cardiac clearance. DIscussed with GI fellow who has spoken with Dr. mckeon, cardiology. 10/19:Had episode of black tarry stool; on pressor, on protonix drip 10/20: Had episode of green stool. GI has signed off. Extubated today. H/H slowly downtrending. 2: no events overnight. awaiting swallow eval; hemoglobin stable in the 9s. 2: Patient had soft brown stool per nursing. She passed swallow eval yesterday and PT worked with her yesterday. Patient would like to go home. However, she needs to continue to work with physical therapy and likely to be appropriate for TYRELL. Per neurology workup, unable to get MRI secondary to having a pacemaker. Patient is ordered for EEG and start Diflucan tomorrow. 10/23: Sodium has normalized. Patient to start first Dose fo Fluconazole today to cover for yeast in sputum. Patient reports she is weak but is amenable to rehab as option when she leaves the hospital. Case management referral is placed. Will need to f/u surgery in regards to when is patient is stable from their standpoint. Patient has alirio over the mid line incision. Hemoglobin is stable in the 9s. Patient is off any anticoagulation at this time since the melena.
[2017-10-23] MEDS: Fluconazole IV 100mg/50 ml NS 50 ML IVPB SCH (10:23)
[2017-10-23] MEDS: Metoprolol Succinate 25 mg XL Tab PO SCH (10:24)
[2017-10-23] MEDS: Saccharomyces Boulardi 250 mg Cap NG SCH ×2 (10:24→18:29)
[2017-10-23] MEDS ORDERED: Morphine 4 MG/ML VIAL IV ONE (14:07)
--- NOTE | 2017-10-23 16:30 | CP.PCM.PN ---
Subjective - Date & Time of Evaluation Date of Evaluation: 10/23/17 Time of Evaluation: 16:28 - Subjective Subjective: Surgery Pt s&e. NAEON. Tolerating diet. Pain controlled. + BM. Objective - Vital Signs/Intake and Output Vital Signs (last 24 hours): Temp Pulse Resp BP Pulse Ox 98.4 F 73 18 113/68 97 10/23/17 13:13 10/23/17 13:13 10/23/17 13:13 10/23/17 13:13 10/23/17 13:13 Intake and Output: 10/23/17 10/23/17 06:59 18:59 Intake Total 680 350 Output Total 650 100 Balance 30 250 - Medications Medications: Current Medications Acetaminophen (Tylenol 325mg Tab) 650 mg PO Q6 PRN PRN Reason: Fever >100.4 F Albuterol/Ipratropium (Duoneb 3 Mg/0.5 Mg (3 Ml) Ud) 3 ml INH RQ6 [facility] Last Admin: 10/23/17 13:29 Dose: Not Given Diltiazem HCl (Cardizem) 60 mg PO Q6 [facility] Last Admin: 10/23/17 11:50 Dose: Not Given Fluconazole (Diflucan Iv 100 Mg/50 Ml Ns) 50 mls @ 100 mls/hr IVPB DAILY [facility] Last Admin: 10/23/17 10:23 Dose: 100 mls/hr Insulin Human Regular (Novolin R) 0 unit SC ACHS [facility] PRN Reason: Protocol Last Admin: 10/23/17 11:56 Dose: 3 unit Levothyroxine Sodium (Synthroid) 50 mcg PO DAILY@0630 [facility] Last Admin: 10/23/17 06:07 Dose: 50 mcg Losartan Potassium (Cozaar) 100 mg PO DAILY [facility] Last Admin: 10/23/17 11:50 Dose: Not Given Metoprolol Succinate (Toprol Xl) 25 mg PO DAILY [facility] Last Admin: 10/23/17 10:24 Dose: 25 mg Mupirocin (Bactroban Ointment) 0 gm TOP BID [facility] Last Admin: 10/23/17 10:23 Dose: 1 gm Ondansetron HCl (Zofran Inj) 4 mg IVP Q6H PRN PRN Reason: Nausea/Vomiting Last Admin: 10/10/17 21:10 Dose: 4 mg Pantoprazole Sodium (Protonix Inj) 40 mg IVP Q12H [facility] Last Admin: 10/23/17 10:24 Dose: 40 mg Polyethylene Glycol (Miralax) 17 gm PO BID PRN PRN Reason: Constipation Last Admin: 10/07/17 10:14 Dose: 17 gm Rosuvastatin Calcium (Crestor) 5 mg NG HS [facility] Last Admin: 10/22/17 21:42 Dose: 5 mg Saccharomyces Boulardii (Florastor) 250 mg NG BID [facility] Last Admin: 10/23/17 10:24 Dose: 250 mg Simethicone (Mylicon Chew Tab) 80 mg PO QID [facility] Vitamin A (Vitamin A & D Oint Ud Foilpak) 0.5 ea TOP Q4 [facility] Last Admin: 10/23/17 11:56 Dose: 0.5 ea - Labs Labs: 10/23/17 06:36 10/23/17 06:36 PT 14.3 SECONDS (9.7-12.2) H 10/17/17 22:24 INR 1.2 10/17/17 22:24 APTT 27 SECONDS (21-34) 10/17/17 22:24 - Constitutional Appears: No Acute Distress - Head Exam Head Exam: ATRAUMATIC, NORMAL INSPECTION, NORMOCEPHALIC - Eye Exam Eye Exam: EOMI, Normal appearance, PERRL Pupil Exam: NORMAL ACCOMODATION, PERRL - ENT Exam ENT Exam: Mucous Membranes Moist, Normal Exam - Neck Exam Neck Exam: Full ROM, Normal Inspection. absent: Lymphadenopathy - Respiratory Exam Respiratory Exam: Clear to Ausculation Bilateral, NORMAL BREATHING PATTERN - Cardiovascular Exam Cardiovascular Exam: REGULAR RHYTHM, +S1, +S2. absent: Murmur - GI/Abdominal Exam GI & Abdominal Exam: Soft, Normal Bowel Sounds. absent: Distended, Guarding, Tenderness, Hernia Additional comments: Incision C/D/I. Every other Devora in place. - Extremities Exam Extremities Exam: Full ROM, Normal Capillary Refill, Normal Inspection. absent : Joint Swelling, Pedal Edema - Back Exam Back Exam: NORMAL INSPECTION - Neurological Exam Neurological Exam: Alert, Awake, CN II-XII Intact, Oriented x3 - Psychiatric Exam Psychiatric exam: Normal Affect, Normal Mood - Skin Skin Exam: Dry, Intact, Normal Color, Warm Assessment and Plan - Assessment and Plan (Free Text) Assessment: 77 y/o F POD#15 s/p ex-lap w/ small bowel resection - ADAT - monitor vitals - monitor bowel function - H/H stable - cont medical management per primary - encourage OOB to chair/Amb/IS use Will Discuss w/ Dr. Hinton
[2017-10-23] MEDS: Simethicone 80 mg Chewtab PO SCH ×2 (18:29→22:18)
[2017-10-24] MEDS: Vitamins A & D Oint UD Foilpak TOP SCH ×7 (00:02→23:54)
[2017-10-24] MEDS: Albuterol-Ipratrop 3 mg / 0.5 (3 ml) UD INH SCH ×5 (01:26→19:47)
[2017-10-24] MEDS: Levothyroxine 50 MCG TAB PO SCH (05:57)
[2017-10-24 06:43] LABS: BASO % 0.4 % (0.0-2.0); EOS # 0.2 K/uL (0.0-0.7); EOS % 3.5 % (0.0-4.0); HEMOGLOBIN 9.3 g/dL (11.0-16.0); LYMPH # 1.3 K/uL (1.0-4.3); LYMPH % 22.6 % (20.0-40.0); MEAN CELL VOLUME 89.2 fL (81.0-99.0); MEAN CORPUSCULAR HEMOGLOBIN 30.8 pg (27.0-31.0); MEAN CORPUSCULAR HGB CONC 34.6 g/dL (33.0-37.0); MEAN PLATELET VOLUME 8.9 fL (7.2-11.7); MONO # 0.8 K/uL (0.0-0.8); MONO % 13.3 % (0.0-10.0); NEUT # 3.5 K/uL (1.8-7.0); NEUT % 60.2 % (50.0-75.0); RBC 3.02 Mil/uL (3.80-5.20); RED CELL DISTRIBUTION WIDTH 15.4 % (11.5-14.5); WHITE BLOOD COUNT 5.8 K/uL (4.8-10.8)
[2017-10-24 07:04] LABS: ALB/GLOB RATIO 0.7 (1.0-2.1); ALT/SGPT 25 U/L (9-52); AST/SGOT 17 U/L (14-36); BLOOD UREA NITROGEN 9 mg/dL (7-17); CALCIUM 7.9 mg/dl (8.6-10.4); GFR AFRICAN-AMERICAN > 60; GFR NON-AFRICAN AMERICAN > 60; MAGNESIUM 1.5 mg/dL (1.6-2.3)
--- NOTE | 2017-10-24 07:52 | CP.PCM.PN ---
Subjective - Date & Time of Evaluation Date of Evaluation: 10/24/17 Time of Evaluation: 07:00 - Subjective Subjective: Medicine Progress Note: Patient was seen and examined at bedside in the AM. Patient states she is feeling a lot better. She states she still needs assistance getting up and going to the bathroom as she does not feel very steady on her feet. She denies shortness of breath, chest pain, abdominal pain, nausea, vomiting, diarrhea or constipation. Objective - Vital Signs/Intake and Output Vital Signs (last 24 hours): Temp Pulse Resp BP Pulse Ox 98 F 84 20 115/64 97 10/24/17 04:05 10/24/17 05:00 10/24/17 04:05 10/24/17 04:05 10/24/17 04:05 Intake and Output: 10/24/17 10/24/17 06:59 18:59 Intake Total 480 Output Total 450 Balance 30 - Medications Medications: Current Medications Acetaminophen (Tylenol 325mg Tab) 650 mg PO Q6 PRN PRN Reason: Fever >100.4 F Albuterol/Ipratropium (Duoneb 3 Mg/0.5 Mg (3 Ml) Ud) 3 ml INH RQ6 [facility] Last Admin: 10/24/17 07:00 Dose: 3 ml Diltiazem HCl (Cardizem) 60 mg PO Q6 [facility] Last Admin: 10/24/17 05:31 Dose: 60 mg Fluconazole (Diflucan Iv 100 Mg/50 Ml Ns) 50 mls @ 100 mls/hr IVPB DAILY [facility] Last Admin: 10/23/17 10:23 Dose: 100 mls/hr Insulin Human Regular (Novolin R) 0 unit SC ACHS TIM PRN Reason: Protocol Last Admin: 10/23/17 22:20 Dose: Not Given Levothyroxine Sodium (Synthroid) 50 mcg PO DAILY@0630 [facility] Last Admin: 10/24/17 05:57 Dose: 50 mcg Losartan Potassium (Cozaar) 100 mg PO DAILY [facility] Last Admin: 10/23/17 11:50 Dose: Not Given Metoprolol Succinate (Toprol Xl) 25 mg PO DAILY [facility] Last Admin: 10/23/17 10:24 Dose: 25 mg Mupirocin (Bactroban Ointment) 0 gm TOP BID [facility] Last Admin: 10/23/17 18:29 Dose: 1 gm Ondansetron HCl (Zofran Inj) 4 mg IVP Q6H PRN PRN Reason: Nausea/Vomiting Last Admin: 10/10/17 21:10 Dose: 4 mg Pantoprazole Sodium (Protonix Inj) 40 mg IVP Q12H [facility] Last Admin: 10/23/17 22:19 Dose: 40 mg Polyethylene Glycol (Miralax) 17 gm PO BID PRN PRN Reason: Constipation Last Admin: 10/07/17 10:14 Dose: 17 gm Rosuvastatin Calcium (Crestor) 5 mg NG HS [facility] Last Admin: 10/23/17 22:18 Dose: 5 mg Saccharomyces Boulardii (Florastor) 250 mg NG BID [facility] Last Admin: 10/23/17 18:29 Dose: 250 mg Simethicone (Mylicon Chew Tab) 80 mg PO QID [facility] Last Admin: 10/23/17 22:18 Dose: 80 mg Vitamin A (Vitamin A & D Oint Ud Foilpak) 0.5 ea TOP Q4 [facility] Last Admin: 10/24/17 05:31 Dose: 0.5 ea - Labs Labs: 10/24/17 06:34 10/24/17 06:34 PT 14.3 SECONDS (9.7-12.2) H 10/17/17 22:24 INR 1.2 10/17/17 22:24 APTT 27 SECONDS (21-34) 10/17/17 22:24 - Constitutional Appears: No Acute Distress - Head Exam Head Exam: NORMAL INSPECTION - Eye Exam Eye Exam: EOMI, Normal appearance - ENT Exam ENT Exam: Mucous Membranes Moist - Neck Exam Additional comments: Central Line in place - clean/dry/intact - Respiratory Exam Respiratory Exam: Clear to Ausculation Bilateral, NORMAL BREATHING PATTERN - Cardiovascular Exam Cardiovascular Exam: REGULAR RHYTHM, +S1, +S2, Murmur - GI/Abdominal Exam GI & Abdominal Exam: Soft, Normal Bowel Sounds. absent: Tenderness - Extremities Exam Extremities Exam: Pedal Edema (+1 swelling in lower extremities ) - Neurological Exam Neurological Exam: Alert, Awake, Oriented x3 - Psychiatric Exam Psychiatric exam: Normal Affect, Normal Mood - Skin Skin Exam: Dry, Intact, Normal Color, Warm Additional comments: Abdominal alirio removed - clean/dry/intact Assessment and Plan - Assessment and Plan (Free Text) Assessment: Bowel Ischemia GI Consult: Dr. Boland --> help appreciated - Chronic multiple liver cysts with largest being 16 cm, was seen on 2013 CT imaging however the largest measured 13x12 cm at the time. - Abdominal CT with IV contrast - patient refused studies at this time - Amylase 87, lipase 217 - Lactate: 1.8 - Morphine 1mg q6h PRN for pain - Enema - Stool Occult blood + - Hep panel: Negative Surgery Consult: Dr. Hinton --> help appreciated - Images: * CT abdomen/pelvis with contrast (10/07/17): Small bowel pneumatosis and portal venous gas concerning for bowel ischemia and necrosis. Multiple liver cysts. Nonobstructing calcifications in the left kidney. 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 In addition to the possible partial obstruction, there is prominent wall and fold enhancement of multiple small bowel loops suggesting enteritis. - Procedures * Exploratory Laparotomy, small bowel resection and primary anastomsis preformed 10/08/17 * Endoscopy (10/18/17): Esophageal ulcer, Z-line regular, normal stomach, erythematous duodenopathy, enterostomy, friable mucosa, inflammation and ulceration, no ulcer Abdominal Aorta Aneurysm CT abdomen/pelvis with contrast (10/07/17): Small bowel pneumatosis and portal venous gas concerning for bowel ischemia and necrosis. Multiple liver cysts. Nonobstructing calcifications in the left kidney. 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 Inman --> help appreciated Chest Pain secondary to LBBB Cardiology Consult: Dr. Childs --> help appreciated * cardiac catheterization 10/06/17: LAD to SUMMERS is patent, but other graft is gone. There actually is no jump graft RCA is now 50% stenosed - EKGx3: LBBB - JOANNA x3 negative - Lipid panel: Cholesterol 159; LDL 91; HDL 41; Triglycerides 94 - TSH 2.92; Free T4 1.49 - Imaging * CT Chest w/ IV (10/04/17): 1. No evidence of thoracic aortic aneurysm, dissection, or rupture. 2. No acute pulmonary embolism. 3. Hepatic cysts * Chest X-ray: No interval acute cardiopulmonary disease appreciated * ECHO (10/04/17): EF 62%; * Last ECHO 2016 LVEF 63% - Medications * ASA 81mg PO daily * Diltiazem 60 mg PO Q6H * Crestor 5mg PO QHS * Cozaar 100 mg NG daily * Toprol XL 25mg PO daily New Onset Atrial Fibrillation - resolved Cardiology Consult: Dr. Childs --> help appreciated - Toprol XL 25mg PO daily - Diltiazem 60 mg PO Q6H - per cardio team may restart Eliquis 10/25/17 CAD s/p CABG (2014) - Had an abnormal stress test 09/2016 Acute Anemia secondary to Melena - resolved - 2 episodes of bright red blood per rectum on 10/15/17. * received 1 unit PRBC 10/15/17 night and 2 more units of PRBC 10/17/17 * H/H stable 9.3/26.9 - Endoscopy (10/18/17): Esophageal ulcer, Z-line regular, normal stomach, erythematous duodenopathy, enterostomy, friable mucosa, inflammation and ulceration, no ulcer--c/w IV PP and monitor H/H - Continue to Monitor Bands - resolved Infectious Disease (Dr. Lawson) on the case-->help appreciated Code Sepsis 10/07/17 - blood culture (10/18/17): no growth - 5 days - urine culture (10/18/17): no growth - 5 days - MRSA no detected (10/23/17): - Trach Culture (10/18/17: yeast * Diflucan 50mls started 11/02/17 - Procal (10/18/17) 0.60 Hyperkalemia - resolved - 5.6 on admission - Once dose Kayexalate given Elevated T. Bili - resolved - 0.5 -Continue to Monitor Transaminitis - resolved - Continue to Monitor History of HTN - Resumed home medications: Norvasc 5mg PO daily, Cozaar 100mg PO daily History of HLD - Continue with home medication (lipitor not on formulary): Crestor 5mg PO QHS History of DM - Accuchecks - HGA1C: 7.1 (09/2017) - Carb Consistent Diet - Held home medication: Metformin - ISS- moderate History of Hypothyroidism - TSH 2.92; Free T4 1.49 - Continue with home medication: Synthroid 50mcg PO daily History Breast Cancer Prophylactic Measures - GI PPX: Protonix 40mg PO daily - DVT PPX: SCDs, Heparin Q12 - PT eval and treat - Palliative Care Consult --> help appreciated - Case Management --> help appreciated: TYRELL (per patient does not want to be place in [place]) Case discussed with Dr. Venkata Rutledge PGY-1
[2017-10-24] MEDS: (Novolin R) Insulin Human Regular 100 units/ml vial SC SCH ×4 (08:08→21:55)
--- NOTE | 2017-10-24 10:13 | CP.PCM.PN ---
<DanayMaynor Paula - Last Filed: 10/24/17 14:08> Subjective - Date & Time of Evaluation Date of Evaluation: 10/24/17 Time of Evaluation: 10:09 - Subjective Subjective: Cardiology progress note for Dr. Childs Patient seen and examined at bedside. Patient has no acute complaints and denies any chest pain, shortness of breath. Patient had two bouts of abdominal pain over the weekend per nursing, but no black/tarry stools. Patient is doing well. Objective - Vital Signs/Intake and Output Vital Signs (last 24 hours): Temp Pulse Resp BP Pulse Ox 98.2 F 91 H 20 112/66 95 10/24/17 07:30 10/24/17 07:30 10/24/17 07:30 10/24/17 07:30 10/24/17 07:30 Intake and Output: 10/24/17 10/24/17 06:59 18:59 Intake Total 480 Output Total 450 Balance 30 - Medications Medications: Current Medications Acetaminophen (Tylenol 325mg Tab) 650 mg PO Q6 PRN PRN Reason: Fever >100.4 F Albuterol/Ipratropium (Duoneb 3 Mg/0.5 Mg (3 Ml) Ud) 3 ml INH RQ6 [facility] Last Admin: 10/24/17 07:00 Dose: 3 ml Diltiazem HCl (Cardizem) 60 mg PO Q6 [facility] Last Admin: 10/24/17 05:31 Dose: 60 mg Fluconazole (Diflucan Iv 100 Mg/50 Ml Ns) 50 mls @ 100 mls/hr IVPB DAILY [facility] Last Admin: 10/23/17 10:23 Dose: 100 mls/hr Insulin Human Regular (Novolin R) 0 unit SC ACHS [facility] PRN Reason: Protocol Last Admin: 10/24/17 08:08 Dose: Not Given Levothyroxine Sodium (Synthroid) 50 mcg PO DAILY@0630 [facility] Last Admin: 10/24/17 05:57 Dose: 50 mcg Losartan Potassium (Cozaar) 100 mg PO DAILY [facility] Last Admin: 10/23/17 11:50 Dose: Not Given Metoprolol Succinate (Toprol Xl) 25 mg PO DAILY [facility] Last Admin: 10/23/17 10:24 Dose: 25 mg Mupirocin (Bactroban Ointment) 0 gm TOP BID [facility] Last Admin: 10/23/17 18:29 Dose: 1 gm Ondansetron HCl (Zofran Inj) 4 mg IVP Q6H PRN PRN Reason: Nausea/Vomiting Last Admin: 10/10/17 21:10 Dose: 4 mg Pantoprazole Sodium (Protonix Inj) 40 mg IVP Q12H [facility] Last Admin: 10/23/17 22:19 Dose: 40 mg Polyethylene Glycol (Miralax) 17 gm PO BID PRN PRN Reason: Constipation Last Admin: 10/07/17 10:14 Dose: 17 gm Rosuvastatin Calcium (Crestor) 5 mg NG HS [facility] Last Admin: 10/23/17 22:18 Dose: 5 mg Saccharomyces Boulardii (Florastor) 250 mg NG BID [facility] Last Admin: 10/23/17 18:29 Dose: 250 mg Simethicone (Mylicon Chew Tab) 80 mg PO QID [facility] Last Admin: 10/23/17 22:18 Dose: 80 mg Vitamin A (Vitamin A & D Oint Ud Foilpak) 0.5 ea TOP Q4 [facility] Last Admin: 10/24/17 08:34 Dose: 0.5 ea - Labs Labs: 10/24/17 06:34 10/24/17 06:34 PT 14.3 SECONDS (9.7-12.2) H 10/17/17 22:24 INR 1.2 10/17/17 22:24 APTT 27 SECONDS (21-34) 10/17/17 22:24 - Additional Findings Additional findings: Physical Exam: Vital Signs as below Const'l: +Patient extubated, oriented x 3, satting well Head/Neck: neck supple, no jvd, trachea midline, carotid midline, no cervical/head mass Eyes: pupils equally reactive to light and accommodation, nonicteric sclera, extraocular intact ENT: auditory acuity grossly intact, throat not congested, no nasal deformity Cardio: +Regular rhythm; +scar on chest wall on left and right sides, regular rate, regular rhythm, no murmurs rubs gallops, no carotid bruit, normal s1, s2 Pulm: no accessory muscle use, equal normal breath sounds bilaterally, clear to ausculation bilaterally Abd: +Abdominal incision site is clean, dry, intact with alirio; + obesity limiting exam, +slightly diminished bowel sounds in lower quadrants - resolved; soft non tender non-distended, no palpable masses Derm: no rashes, no ulcers, no lesions Extr: no edema, no cyanosis, no calf tenderness, no lesions, no varicosities Neuro: cranial nerves II-XII grossly intact, upper extremity and lower extremity 5/5 muscle strength bilaterally, no loss of sensation in upper extremities, lower extremities bilaterally and core Assessment and Plan - Assessment and Plan (Free Text) Assessment: For extensive Assessment and Plan history, please see note from 10/18, at the bottom in italics; and see note from 10/20 at bottom in italics Acute Assessments and Plan: 77 year old female with extensive cardiac history presented with chest pain on this admission, ACS ruled out, Cath performed. Patient also had new onset atrial fibrillation which has now resolved with diltiazem, amiodarone, and metoprolol. Patient had a code blue on 10/17/17 for pulselessness and respiratory distress. Patient was brought to [facility] with Bicarb and Epi. Diminished pulse and dyspnea were likely 2/2 GI bleed, as patient had black, tarry stools for a couple of days. Eliquis on hold, Dr. Boland has performed EGD - please see findings in his note. Patient then had hypernatremia 2/2 hypovolemia, for which she was given fluids. Patient doing significantly better now - A-Fib resolved, hemoglobin stabilizing , dyspnea resolved, hypernatremia responding to fluids. Consider restarting Eliquis tomorrow if hemoglobin stable. Only new assessment is oropharyngeal yeast infection, being treated with fluconazole. New-Onset Atrial Fibrillation - Resolved - Rate control: Metoprolol 25 - Rhythm management: Diltiazem and Amiodarone *Patient LFT's are fine and no signs of pulmonary fibrosis. However, her TSH is above normal limits. Observe. - Anticoagulation - Eliquis 5 BID on hold secondary to GI bleed Blood Loss Anemia 2/2 Acute GI Bleed - Stabilizing - Hold Eliquis - consider restarting - Mgmt per primary, surgery, and GI Dyspnea, likely 2/2 to Blood Loss Anemia - Patient given 2 units of blood 10/18, feels better now hemoglobin is stabilizing - Rest of management per ICU and GI Ischemic Bowel s/p 2 ft of small bowel resection - Heparin drip stopped - Management per ICU and Surgery Hypernatremia likely 2/2 hypodipsia - Trending down; urine osm (593) urine na (149) serum osm (328): indicative of hypovolemic hypernatremia; Clinically and based on history, Hypernatremia is likely 2/2 decreased free water in take - Management per primary Oropharyngeal Yeast Infection - Management per primary. ID on board Dispo: Consider restarting eliquis tomorrow, 10/25, if hemoglobin remains stable ; Hypernatremia responding to fluids <Babak Childs - Last Filed: 10/26/17 01:41> Objective - Vital Signs/Intake and Output Vital Signs (last 24 hours): Temp Pulse Resp BP Pulse Ox 99.2 F 104 H 20 110/70 96 10/25/17 23:10 10/25/17 23:10 10/25/17 23:10 10/25/17 23:10 10/25/17 23:10 Intake and Output: 10/25/17 10/26/17 18:59 06:59 Intake Total 730 340 Output Total 400 Balance 330 340 - Medications Medications: Current Medications Acetaminophen (Tylenol 325mg Tab) 650 mg PO Q6 PRN PRN Reason: Fever >100.4 F Albuterol/Ipratropium (Duoneb 3 Mg/0.5 Mg (3 Ml) Ud) 3 ml INH RQ6 [facility] Last Admin: 10/26/17 01:07 Dose: 3 ml Apixaban (Eliquis) 2.5 mg PO DAILY [facility] Diltiazem HCl (Cardizem) 60 mg PO Q6 [facility] Last Admin: 10/26/17 00:36 Dose: 60 mg Fluconazole (Diflucan) 100 mg PO DAILY [facility] Insulin Human Regular (Novolin R) 0 unit SC ACHS [facility] PRN Reason: Protocol Last Admin: 10/25/17 21:12 Dose: Not Given Levothyroxine Sodium (Synthroid) 50 mcg PO DAILY@0630 [facility] Last Admin: 10/25/17 05:58 Dose: 50 mcg Losartan Potassium (Cozaar) 100 mg PO DAILY [facility] Last Admin: 10/25/17 09:16 Dose: 100 mg Metoprolol Succinate (Toprol Xl) 25 mg PO DAILY [facility] Last Admin: 10/25/17 09:16 Dose: 25 mg Mupirocin (Bactroban Ointment) 0 gm TOP BID [facility] Last Admin: 10/25/17 18:59 Dose: Not Given Ondansetron HCl (Zofran Inj) 4 mg IVP Q6H PRN PRN Reason: Nausea/Vomiting Last Admin: 10/10/17 21:10 Dose: 4 mg Pantoprazole Sodium (Protonix Ec Tab) 40 mg PO Q12H [facility] Last Admin: 10/25/17 21:11 Dose: 40 mg Polyethylene Glycol (Miralax) 17 gm PO BID PRN PRN Reason: Constipation Last Admin: 10/07/17 10:14 Dose: 17 gm Rosuvastatin Calcium (Crestor) 5 mg NG HS [facility] Last Admin: 10/25/17 21:11 Dose: 5 mg Saccharomyces Boulardii (Florastor) 250 mg NG BID [facility] Last Admin: 10/25/17 18:12 Dose: 250 mg Simethicone (Mylicon Chew Tab) 80 mg PO QID [facility] Last Admin: 10/25/17 21:11 Dose: 80 mg Vitamin A (Vitamin A & D Oint Ud Foilpak) 0.5 ea TOP Q4 [facility] Last Admin: 10/26/17 00:36 Dose: 0.5 ea - Labs Labs: 10/25/17 06:21 10/25/17 06:21 PT 14.3 SECONDS (9.7-12.2) H 10/17/17 22:24 INR 1.2 10/17/17 22:24 APTT 27 SECONDS (21-34) 10/17/17 22:24 Assessment and Plan (1) Chest discomfort Status: Acute (2) Chest pain Status: Acute (3) Hypertension Status: Acute Attending/Attestation - Attestation I have personally seen and examined this patient.: Yes I have fully participated in the care of the patient.: Yes I have reviewed all pertinent clinical information, including history, physical exam and plan: Yes
[2017-10-24] MEDS: Saccharomyces Boulardi 250 mg Cap NG SCH ×2 (10:27→17:45)
[2017-10-24] MEDS: Fluconazole IV 100mg/50 ml NS 50 ML IVPB SCH (10:28)
[2017-10-24] MEDS: Simethicone 80 mg Chewtab PO SCH ×4 (10:28→21:36)
[2017-10-24] MEDS: Metoprolol Succinate 25 mg XL Tab PO SCH (10:28)
--- NOTE | 2017-10-24 10:32 | PN ---
DATE: 10/24/2017 NEUROLOGIC PROBLEM: Metabolic versus hypoperfusion encephalopathy. PHYSICAL EXAMINATION: VITAL SIGNS: Blood pressure 115/64, mean artery pressure 81, respiratory 16, temperature 98 degrees. NEUROLOGIC: The patient is lying down comfortably without any discomfort. More awake, alert and oriented to person, place and time. Speech is clear. He follows one to two step command. No right and left confusion. Deep tendon reflexes are symmetric on either side. Plantars are downgoing. The patient has been presenting with normal neurological exam without any lateralizing sign. The patient can be signed off from followup from neuro, if any changes, do not hesitate to call me. Stiven Mazariegos MD
--- NOTE | 2017-10-24 11:58 | CP.PCM.PN ---
Subjective - Date & Time of Evaluation Date of Evaluation: 10/24/17 Time of Evaluation: 06:45 - Subjective Subjective: General surgery progress note for Dr. Marcin Mayers, PGY-1 Pt S & E at bedside this AM. Pt reports tolerating diet, having BMs, flatus. Denies N & V, F & C. Objective - Vital Signs/Intake and Output Vital Signs (last 24 hours): Temp Pulse Resp BP Pulse Ox 98.2 F 91 H 20 112/66 95 10/24/17 07:30 10/24/17 07:30 10/24/17 07:30 10/24/17 07:30 10/24/17 07:30 Intake and Output: 10/24/17 10/24/17 06:59 18:59 Intake Total 480 Output Total 450 Balance 30 - Medications Medications: Current Medications Acetaminophen (Tylenol 325mg Tab) 650 mg PO Q6 PRN PRN Reason: Fever >100.4 F Albuterol/Ipratropium (Duoneb 3 Mg/0.5 Mg (3 Ml) Ud) 3 ml INH RQ6 [facility] Last Admin: 10/24/17 07:00 Dose: 3 ml Diltiazem HCl (Cardizem) 60 mg PO Q6 [facility] Last Admin: 10/24/17 05:31 Dose: 60 mg Fluconazole (Diflucan Iv 100 Mg/50 Ml Ns) 50 mls @ 100 mls/hr IVPB DAILY [facility] Last Admin: 10/24/17 10:28 Dose: 100 mls/hr Insulin Human Regular (Novolin R) 0 unit SC ACHS [facility] PRN Reason: Protocol Last Admin: 10/24/17 08:08 Dose: Not Given Levothyroxine Sodium (Synthroid) 50 mcg PO DAILY@0630 [facility] Last Admin: 10/24/17 05:57 Dose: 50 mcg Losartan Potassium (Cozaar) 100 mg PO DAILY [facility] Last Admin: 10/24/17 10:27 Dose: 100 mg Metoprolol Succinate (Toprol Xl) 25 mg PO DAILY [facility] Last Admin: 10/24/17 10:28 Dose: 25 mg Mupirocin (Bactroban Ointment) 0 gm TOP BID [facility] Last Admin: 10/24/17 10:28 Dose: 1 gm Ondansetron HCl (Zofran Inj) 4 mg IVP Q6H PRN PRN Reason: Nausea/Vomiting Last Admin: 10/10/17 21:10 Dose: 4 mg Pantoprazole Sodium (Protonix Inj) 40 mg IVP Q12H [facility] Last Admin: 10/24/17 10:29 Dose: Not Given Polyethylene Glycol (Miralax) 17 gm PO BID PRN PRN Reason: Constipation Last Admin: 10/07/17 10:14 Dose: 17 gm Rosuvastatin Calcium (Crestor) 5 mg NG HS [facility] Last Admin: 10/23/17 22:18 Dose: 5 mg Saccharomyces Boulardii (Florastor) 250 mg NG BID [facility] Last Admin: 10/24/17 10:27 Dose: 250 mg Simethicone (Mylicon Chew Tab) 80 mg PO QID [facility] Last Admin: 10/24/17 10:28 Dose: 80 mg Vitamin A (Vitamin A & D Oint Ud Foilpak) 0.5 ea TOP Q4 [facility] Last Admin: 10/24/17 08:34 Dose: 0.5 ea - Labs Labs: 10/24/17 06:34 10/24/17 06:34 PT 14.3 SECONDS (9.7-12.2) H 10/17/17 22:24 INR 1.2 10/17/17 22:24 APTT 27 SECONDS (21-34) 10/17/17 22:24 - Constitutional Appears: Non-toxic, No Acute Distress - Head Exam Head Exam: ATRAUMATIC, NORMAL INSPECTION, NORMOCEPHALIC - Eye Exam Eye Exam: EOMI, Normal appearance - ENT Exam ENT Exam: Mucous Membranes Moist, Normal Exam - Neck Exam Neck Exam: Full ROM, Normal Inspection - Respiratory Exam Respiratory Exam: NORMAL BREATHING PATTERN - Cardiovascular Exam Cardiovascular Exam: REGULAR RHYTHM, +S1, +S2 - GI/Abdominal Exam GI & Abdominal Exam: Soft. absent: Distended, Firm, Guarding, Tenderness Additional comments: well healed midline incision with alirio every other- removed; no drainage noted - Extremities Exam Extremities Exam: Normal Inspection - Neurological Exam Neurological Exam: Alert, Awake, CN II-XII Intact, Oriented x3 - Psychiatric Exam Psychiatric exam: Normal Affect, Normal Mood - Skin Skin Exam: Dry, Intact, Normal Color, Warm Assessment and Plan - Assessment and Plan (Free Text) Assessment: 77F POD#16 s/p ex-lap w/ small bowel resection Plan: Remainder of alirio removed Cont HHD Monitor H/H- stable Cont mgmt as per primary team will likely need rehab OOBTC PT Encourage IS use Will DW attending [facility], PGY-1
--- NOTE | 2017-10-24 17:27 | CP.PCM.PN ---
Subjective - Date & Time of Evaluation Date of Evaluation: 10/24/17 Time of Evaluation: 01:00 - Subjective Subjective: patient offers no complaints Objective - Vital Signs/Intake and Output Vital Signs (last 24 hours): Temp Pulse Resp BP Pulse Ox 98.2 F 100 H 20 137/67 95 10/24/17 07:30 10/24/17 16:12 10/24/17 07:30 10/24/17 12:05 10/24/17 07:30 Intake and Output: 10/24/17 10/24/17 06:59 18:59 Intake Total 480 650 Output Total 450 400 Balance 30 250 - Medications Medications: Current Medications Acetaminophen (Tylenol 325mg Tab) 650 mg PO Q6 PRN PRN Reason: Fever >100.4 F Albuterol/Ipratropium (Duoneb 3 Mg/0.5 Mg (3 Ml) Ud) 3 ml INH RQ6 [facility] Last Admin: 10/24/17 13:59 Dose: 3 ml Diltiazem HCl (Cardizem) 60 mg PO Q6 [facility] Last Admin: 10/24/17 12:01 Dose: 60 mg Fluconazole (Diflucan Iv 100 Mg/50 Ml Ns) 50 mls @ 100 mls/hr IVPB DAILY [facility] Last Admin: 10/24/17 10:28 Dose: 100 mls/hr Insulin Human Regular (Novolin R) 0 unit SC ACHS TIM PRN Reason: Protocol Last Admin: 10/24/17 12:02 Dose: Not Given Levothyroxine Sodium (Synthroid) 50 mcg PO DAILY@0630 [facility] Last Admin: 10/24/17 05:57 Dose: 50 mcg Losartan Potassium (Cozaar) 100 mg PO DAILY [facility] Last Admin: 10/24/17 10:27 Dose: 100 mg Metoprolol Succinate (Toprol Xl) 25 mg PO DAILY [facility] Last Admin: 10/24/17 10:28 Dose: 25 mg Mupirocin (Bactroban Ointment) 0 gm TOP BID [facility] Last Admin: 10/24/17 10:28 Dose: 1 gm Ondansetron HCl (Zofran Inj) 4 mg IVP Q6H PRN PRN Reason: Nausea/Vomiting Last Admin: 10/10/17 21:10 Dose: 4 mg Pantoprazole Sodium (Protonix Inj) 40 mg IVP Q12H [facility] Last Admin: 10/24/17 12:01 Dose: 40 mg Polyethylene Glycol (Miralax) 17 gm PO BID PRN PRN Reason: Constipation Last Admin: 10/07/17 10:14 Dose: 17 gm Rosuvastatin Calcium (Crestor) 5 mg NG HS [facility] Last Admin: 10/23/17 22:18 Dose: 5 mg Saccharomyces Boulardii (Florastor) 250 mg NG BID [facility] Last Admin: 10/24/17 10:27 Dose: 250 mg Simethicone (Mylicon Chew Tab) 80 mg PO QID [facility] Last Admin: 10/24/17 13:18 Dose: 80 mg Vitamin A (Vitamin A & D Oint Ud Foilpak) 0.5 ea TOP Q4 [facility] Last Admin: 10/24/17 12:01 Dose: 0.5 ea - Labs Labs: 10/24/17 06:34 10/24/17 06:34 PT 14.3 SECONDS (9.7-12.2) H 10/17/17 22:24 INR 1.2 10/17/17 22:24 APTT 27 SECONDS (21-34) 10/17/17 22:24 - Constitutional Appears: No Acute Distress - Head Exam Head Exam: ATRAUMATIC, NORMAL INSPECTION, NORMOCEPHALIC - Eye Exam Eye Exam: EOMI, Normal appearance, PERRL Pupil Exam: NORMAL ACCOMODATION, PERRL - ENT Exam ENT Exam: Mucous Membranes Moist, Normal Exam - Neck Exam Neck Exam: Normal Inspection - Respiratory Exam Respiratory Exam: Clear to Ausculation Bilateral, NORMAL BREATHING PATTERN - Cardiovascular Exam Cardiovascular Exam: REGULAR RHYTHM - Rectal Exam Rectal Exam: Deferred - Extremities Exam Extremities Exam: Full ROM, Normal Capillary Refill, Normal Inspection - Back Exam Back Exam: NORMAL INSPECTION - Neurological Exam Neurological Exam: Alert, Oriented x3 Neuro motor strength exam: Left Upper Extremity: 2/1, Right Upper Extremity: 2/1 , Left Lower Extremity: 2/1, Right Lower Extremity: 2/1 - Psychiatric Exam Psychiatric exam: Normal Affect, Normal Mood - Skin Skin Exam: Pallor Assessment and Plan - Assessment and Plan (Free Text) Assessment: Palliative care progress notes Patient seen and examined in bed, alert orientated 3, in no acute distress. Physical exam unremarkable, except surgical abdominal wound that is healed very well. Patient denies abdominal pain, reports well tolerance to food, denies nausea. Patient is afebrile, vital signs within normal limits. Goals of care discussed with the patient. Patient doesn't remember any previous interaction with me, and says people tell her she was going to . I reviewed with the patient her hospital stay and prised her fight with the disease. Patient admitted feeling very weak. Patient was walking with physical therapy 2 and wasn't able to participate in physical therapy due to her weakness. I suggested she goes to [facility] for physical therapy before she goes home. She agreed. Called status discussed. I reminded patient of her stay on ICU and being on the ventilator support. Patient denied memories of feet again. Also if she would want DOS to up light all aggressive measures again if it should be underneath support her life she answered yes. Further, patient said she has 3daughters and if she ever loses capacity of decision-making she would like them to make decisions for her. Impressions * Patient is recovering very well after emergency abdominal surgery * Patient tolerates food and denies pain * Patient admits to general weakness and inability to participate in physical therapy * Patient wishes all aggressive measures are being applied again if she should need it * Patient wishes one of her children makes medical decisions if she ever loses that ability Suggestions * Assist patient out of bed and promote activities as tolerated * Full Code * Discharge planning to [facility] * Patient is looking toward going home eventually Advanced care planning, 30 minutes
[2017-10-25] MEDS: Albuterol-Ipratrop 3 mg / 0.5 (3 ml) UD INH SCH ×4 (01:06→19:49)
[2017-10-25] MEDS: Vitamins A & D Oint UD Foilpak TOP SCH ×5 (05:23→20:00)
[2017-10-25] MEDS: Levothyroxine 50 MCG TAB PO SCH (05:58)
[2017-10-25 06:33] LABS: BASO % 0.3 % (0.0-2.0); EOS # 0.1 K/uL (0.0-0.7); EOS % 1.4 % (0.0-4.0); HEMOGLOBIN 9.4 g/dL (11.0-16.0); LYMPH # 1.4 K/uL (1.0-4.3); LYMPH % 14.5 % (20.0-40.0); MEAN CORPUSCULAR HEMOGLOBIN 30.3 pg (27.0-31.0); MEAN CORPUSCULAR HGB CONC 34.1 g/dL (33.0-37.0); MEAN PLATELET VOLUME 9.1 fL (7.2-11.7); MONO # 1.4 K/uL (0.0-0.8); MONO % 14.2 % (0.0-10.0); NEUT # 6.7 K/uL (1.8-7.0); NEUT % 69.6 % (50.0-75.0); RBC 3.11 Mil/uL (3.80-5.20); RED CELL DISTRIBUTION WIDTH 15.5 % (11.5-14.5); WHITE BLOOD COUNT 9.7 K/uL (4.8-10.8)
[2017-10-25 08:21] LABS: ALB/GLOB RATIO 0.7 (1.0-2.1); ALBUMIN 2.2 g/dL (3.5-5.0); ALT/SGPT 23 U/L (9-52); AST/SGOT 20 U/L (14-36); BLOOD UREA NITROGEN 9 mg/dL (7-17); CALCIUM 7.9 mg/dl (8.6-10.4); GFR AFRICAN-AMERICAN > 60; GFR NON-AFRICAN AMERICAN > 60; MAGNESIUM 1.4 mg/dL (1.6-2.3)
[2017-10-25] MEDS: (Novolin R) Insulin Human Regular 100 units/ml vial SC SCH ×4 (08:25→21:12)
--- NOTE | 2017-10-25 08:42 | PN ---
DATE: 10/25/2017 NEUROLOGIC PROBLEM: Hypoperfusion syndrome with metabolic encephalopathy. PHYSICAL EXAMINATION: VITAL SIGNS: Blood pressure 124/76, mean arterial pressure of 72, respiratory rate 18, temperature 100 degrees Fahrenheit. NEUROLOGIC: The patient is more awake, alert and oriented to person, place and time. Speech is clear. No mental impairment. She moves all four extremities against gravity. The patient did have some episodes of change in mental status, which was documented over the weekend and requested electroencephalogram. Her electroencephalogram has been reviewed by me. No paroxysmal activities or focal slowing noted. The patient does have a normal electroencephalogram. From a neurological point of view, the patient is cleared. No further workup is needed. Stiven Mazariegos MD
[2017-10-25] MEDS: Saccharomyces Boulardi 250 mg Cap NG SCH ×2 (09:16→18:12)
[2017-10-25] MEDS: Simethicone 80 mg Chewtab PO SCH ×4 (09:16→21:11)
[2017-10-25] MEDS: Metoprolol Succinate 25 mg XL Tab PO SCH (09:16)
--- NOTE | 2017-10-25 09:16 | RAD ---
Chest x-ray single frontal view History: Inspiratory crackles. Comparison: 10/22/2017 Findings: Mild venous congestion. Patchy increased markings at the left lung base. Left hilar prominence. Status post median sternotomy and CABG. Cardiomegaly. Right-sided pacemaker. Degenerative changes in the spine and shoulders. Impression: Mild venous congestion. Patchy increased markings at the left lung base. Left hilar prominence. Status post median sternotomy and CABG. Cardiomegaly. Right-sided pacemaker.
[2017-10-25] MEDS: Fluconazole IV 100mg/50 ml NS 50 ML IVPB SCH (09:17)
[2017-10-25] MEDS: Magnesium Sulfate 1 gm in D5W 1 GM/100 ML BAG IVPB SCH ×2 (09:18→10:23)
--- NOTE | 2017-10-25 09:20 | CP.PCM.PN ---
<Linda Rutledge - Last Filed: 10/25/17 18:19> Subjective - Date & Time of Evaluation Date of Evaluation: 10/25/17 Time of Evaluation: 07:00 - Subjective Subjective: Medicine Progress Note: Patient was seen and examined at bedside in the AM. Per nurse patient overnight felt a bit short of breath. Patient denies shortness of breath but states she has been having a cough recently because her neighbor in the room was coughing all evening. She denies chest pain, nausea, vomiting, diarrhea or constipation. Objective - Vital Signs/Intake and Output Vital Signs (last 24 hours): Temp Pulse Resp BP Pulse Ox 99.0 F 95 H 20 116/61 96 10/25/17 08:08 10/25/17 08:08 10/25/17 08:08 10/25/17 08:08 10/25/17 08:08 - Medications Medications: Current Medications Acetaminophen (Tylenol 325mg Tab) 650 mg PO Q6 PRN PRN Reason: Fever >100.4 F Albuterol/Ipratropium (Duoneb 3 Mg/0.5 Mg (3 Ml) Ud) 3 ml INH RQ6 [facility] Last Admin: 10/25/17 07:28 Dose: 3 ml Diltiazem HCl (Cardizem) 60 mg PO Q6 [facility] Last Admin: 10/25/17 05:23 Dose: 60 mg Fluconazole (Diflucan Iv 100 Mg/50 Ml Ns) 50 mls @ 100 mls/hr IVPB DAILY [facility] Last Admin: 10/25/17 09:17 Dose: 100 mls/hr Magnesium Sulfate/Dextrose (Magnesium Sulfate 1 Gm/100 Ml D5w) 1 gm in 100 mls @ 200 mls/hr IVPB Q30M [facility] Stop: 10/25/17 09:44 Last Admin: 10/25/17 09:18 Dose: 200 mls/hr Insulin Human Regular (Novolin R) 0 unit SC ACHS TIM PRN Reason: Protocol Last Admin: 10/24/17 21:55 Dose: Not Given Levothyroxine Sodium (Synthroid) 50 mcg PO DAILY@0630 [facility] Last Admin: 10/25/17 05:58 Dose: 50 mcg Losartan Potassium (Cozaar) 100 mg PO DAILY [facility] Last Admin: 10/25/17 09:16 Dose: 100 mg Metoprolol Succinate (Toprol Xl) 25 mg PO DAILY [facility] Last Admin: 10/25/17 09:16 Dose: 25 mg Mupirocin (Bactroban Ointment) 0 gm TOP BID [facility] Last Admin: 10/25/17 09:17 Dose: 1 gm Ondansetron HCl (Zofran Inj) 4 mg IVP Q6H PRN PRN Reason: Nausea/Vomiting Last Admin: 10/10/17 21:10 Dose: 4 mg Pantoprazole Sodium (Protonix Inj) 40 mg IVP Q12H [facility] Last Admin: 10/25/17 09:16 Dose: 40 mg Polyethylene Glycol (Miralax) 17 gm PO BID PRN PRN Reason: Constipation Last Admin: 10/07/17 10:14 Dose: 17 gm Rosuvastatin Calcium (Crestor) 5 mg NG HS [facility] Last Admin: 10/24/17 21:31 Dose: 5 mg Saccharomyces Boulardii (Florastor) 250 mg NG BID [facility] Last Admin: 10/25/17 09:16 Dose: 250 mg Simethicone (Mylicon Chew Tab) 80 mg PO QID [facility] Last Admin: 10/25/17 09:16 Dose: 80 mg Vitamin A (Vitamin A & D Oint Ud Foilpak) 0.5 ea TOP Q4 [facility] Last Admin: 10/25/17 08:00 Dose: 0.5 ea - Labs Labs: 10/25/17 06:21 10/25/17 06:21 PT 14.3 SECONDS (9.7-12.2) H 10/17/17 22:24 INR 1.2 10/17/17 22:24 APTT 27 SECONDS (21-34) 10/17/17 22:24 - Constitutional Appears: No Acute Distress - Head Exam Head Exam: NORMAL INSPECTION - Eye Exam Eye Exam: EOMI, Normal appearance - ENT Exam ENT Exam: Mucous Membranes Moist - Respiratory Exam Respiratory Exam: NORMAL BREATHING PATTERN Additional comments: crackles in the mid lower lobes - Cardiovascular Exam Cardiovascular Exam: REGULAR RHYTHM, RRR, +S1, +S2 - GI/Abdominal Exam GI & Abdominal Exam: Soft, Tenderness, Normal Bowel Sounds - Extremities Exam Extremities Exam: Normal Inspection - Neurological Exam Neurological Exam: Alert, Awake, Oriented x3 - Psychiatric Exam Psychiatric exam: Normal Affect, Normal Mood - Skin Skin Exam: Dry, Intact, Normal Color, Warm Additional comments: [place] on abdomen are clean/dry/intact Assessment and Plan - Assessment and Plan (Free Text) Assessment: Bowel Ischemia GI Consult: Dr. Boland --> help appreciated - Chronic multiple liver cysts with largest being 16 cm, was seen on 2013 CT imaging however the largest measured 13x12 cm at the time. - Abdominal CT with IV contrast - patient refused studies at this time - Amylase 87, lipase 217 - Lactate: 1.8 - Morphine 1mg q6h PRN for pain - Enema - Stool Occult blood + - Hep panel: Negative Surgery Consult: Dr. Hinton --> help appreciated - Images: * CT abdomen/pelvis with contrast (10/07/17): Small bowel pneumatosis and portal venous gas concerning for bowel ischemia and necrosis. Multiple liver cysts. Nonobstructing calcifications in the left kidney. 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 In addition to the possible partial obstruction, there is prominent wall and fold enhancement of multiple small bowel loops suggesting enteritis. - Procedures * Exploratory Laparotomy, small bowel resection and primary anastomsis preformed 10/08/17 * Endoscopy (10/18/17): Esophageal ulcer, Z-line regular, normal stomach, erythematous duodenopathy, enterostomy, friable mucosa, inflammation and ulceration, no ulcer Abdominal Aorta Aneurysm CT abdomen/pelvis with contrast (10/07/17): Small bowel pneumatosis and portal venous gas concerning for bowel ischemia and necrosis. Multiple liver cysts. Nonobstructing calcifications in the left kidney. 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 Inman --> help appreciated Chest Pain secondary to LBBB Cardiology Consult: Dr. Childs --> help appreciated * cardiac catheterization 10/06/17: LAD to SUMMERS is patent, but other graft is gone. There actually is no jump graft RCA is now 50% stenosed - EKGx3: LBBB - JOANNA x3 negative - Lipid panel: Cholesterol 159; LDL 91; HDL 41; Triglycerides 94 - TSH 2.92; Free T4 1.49 - Imaging * CT Chest w/ IV (10/04/17): 1. No evidence of thoracic aortic aneurysm, dissection, or rupture. 2. No acute pulmonary embolism. 3. Hepatic cysts * Chest X-ray: No interval acute cardiopulmonary disease appreciated * ECHO (10/04/17): EF 62%; * Last ECHO 2015 LVEF 63% - Medications * ASA 81mg PO daily * Diltiazem 60 mg PO Q6H * Crestor 5mg PO QHS * Cozaar 100 mg NG daily * Toprol XL 25mg PO daily Shortness of breath - Chest Xray (10/25/17): mild venous congestion; patchy increased markings at the left lung base - one time dose of Lasix 20mg IV New Onset Atrial Fibrillation - resolved Cardiology Consult: Dr. Childs --> help appreciated - Toprol XL 25mg PO daily - Diltiazem 60 mg PO Q6H - Will not restart Eliquis due to endoscopy report showed non-bleeding esophageal ulcer and non-bleeding duodenal ulcer CAD s/p CABG (2014) - Had an abnormal stress test 09/2016 Acute Anemia secondary to Melena - resolved - 2 episodes of bright red blood per rectum on 10/15/17. * received 1 unit PRBC 10/15/17 night and 2 more units of PRBC 10/17/17 * H/H stable 9.3/26.9 - Endoscopy (10/18/17): Esophageal ulcer, Z-line regular, normal stomach, erythematous duodenopathy, enterostomy, friable mucosa, inflammation and ulceration, no ulcer--c/w IV PP and monitor H/H - Continue to Monitor Bands - resolved Infectious Disease (Dr. Lawson) on the case-->help appreciated Code Sepsis 10/07/17 - blood culture (10/18/17): no growth - 5 days - urine culture (10/18/17): no growth - 5 days - MRSA no detected (10/23/17): - Trach Culture (10/18/17: yeast * Diflucan 50mls started 11/02/17 - Procal (10/18/17) 0.60 Hyperkalemia - resolved - 5.6 on admission - Once dose Kayexalate given Elevated T. Bili - resolved - 0.5 -Continue to Monitor Transaminitis - resolved - Continue to Monitor History of HTN - Resumed home medications: Norvasc 5mg PO daily, Cozaar 100mg PO daily History of HLD - Continue with home medication (lipitor not on formulary): Crestor 5mg PO QHS History of DM - Accuchecks - HGA1C: 7.1 (09/2017) - Carb Consistent Diet - Held home medication: Metformin - ISS- moderate History of Hypothyroidism - TSH 2.92; Free T4 1.49 - Continue with home medication: Synthroid 50mcg PO daily History Breast Cancer Prophylactic Measures - GI PPX: Protonix 40mg PO daily - DVT PPX: SCDs, Heparin Q12 - PT eval and treat - Palliative Care Consult --> help appreciated - Case Management --> help appreciated: TYRELL (per patient does not want to be place in [place]) Case discussed with Dr. Venkata Rutledge PGY-1 <Bertin Hastings - Last Filed: 10/25/17 20:47> Objective - Vital Signs/Intake and Output Vital Signs (last 24 hours): Temp Pulse Resp BP Pulse Ox 98.9 F 92 H 20 125/64 96 10/25/17 15:50 10/25/17 16:00 10/25/17 15:50 10/25/17 15:50 10/25/17 15:50 Intake and Output: 10/25/17 10/26/17 18:59 06:59 Intake Total 730 Output Total 400 Balance 330 - Medications Medications: Current Medications Acetaminophen (Tylenol 325mg Tab) 650 mg PO Q6 PRN PRN Reason: Fever >100.4 F Albuterol/Ipratropium (Duoneb 3 Mg/0.5 Mg (3 Ml) Ud) 3 ml INH RQ6 [facility] Last Admin: 10/25/17 19:49 Dose: 3 ml Apixaban (Eliquis) 2.5 mg PO DAILY [facility] Diltiazem HCl (Cardizem) 60 mg PO Q6 [facility] Last Admin: 10/25/17 18:12 Dose: 60 mg Fluconazole (Diflucan) 100 mg PO DAILY [facility] Insulin Human Regular (Novolin R) 0 unit SC ACHS TIM PRN Reason: Protocol Last Admin: 10/25/17 17:30 Dose: Not Given Levothyroxine Sodium (Synthroid) 50 mcg PO DAILY@0630 [facility] Last Admin: 10/25/17 05:58 Dose: 50 mcg Losartan Potassium (Cozaar) 100 mg PO DAILY [facility] Last Admin: 10/25/17 09:16 Dose: 100 mg Metoprolol Succinate (Toprol Xl) 25 mg PO DAILY [facility] Last Admin: 10/25/17 09:16 Dose: 25 mg Mupirocin (Bactroban Ointment) 0 gm TOP BID [facility] Last Admin: 10/25/17 18:59 Dose: Not Given Ondansetron HCl (Zofran Inj) 4 mg IVP Q6H PRN PRN Reason: Nausea/Vomiting Last Admin: 10/10/17 21:10 Dose: 4 mg Pantoprazole Sodium (Protonix Inj) 40 mg IVP Q12H [facility] Last Admin: 10/25/17 09:16 Dose: 40 mg Polyethylene Glycol (Miralax) 17 gm PO BID PRN PRN Reason: Constipation Last Admin: 10/07/17 10:14 Dose: 17 gm Rosuvastatin Calcium (Crestor) 5 mg NG HS [facility] Last Admin: 10/24/17 21:31 Dose: 5 mg Saccharomyces Boulardii (Florastor) 250 mg NG BID [facility] Last Admin: 10/25/17 18:12 Dose: 250 mg Simethicone (Mylicon Chew Tab) 80 mg PO QID [facility] Last Admin: 10/25/17 18:14 Dose: 80 mg Vitamin A (Vitamin A & D Oint Ud Foilpak) 0.5 ea TOP Q4 [facility] Last Admin: 10/25/17 16:00 Dose: 0.5 ea - Labs Labs: 10/25/17 06:21 10/25/17 06:21 PT 14.3 SECONDS (9.7-12.2) H 10/17/17 22:24 INR 1.2 10/17/17 22:24 APTT 27 SECONDS (21-34) 10/17/17 22:24 Attending/Attestation - Attestation I have personally seen and examined this patient.: Yes I have fully participated in the care of the patient.: Yes I have reviewed all pertinent clinical information, including history, physical exam and plan: Yes Notes (Text): 10/25/17 20:32 Patient was seen and examined at 8:45 AM 10/25/17 Exam, assessment and plan were gone over with the resident. Also on ROS: SOB and dry cough during the night Moving her bowels: NO diarrhea, NO black/bloody stools Feels tired NO other complaints upon FULL ROS Also on exam: Cardio: Systolic Murmur along Left Sternal Border Resp: Mid to Lower Lung Field faint inspiratory crackles GI: midline surgical scar with alirio removed shows no signs of dehiscence/ cellulitis Skin: no ulcers present on sacrum or any other amelia prominence (performed with Nurse Yulisa) Assessments: 1). Hx Bowel Ischemia (10/08/17: Exploratory laparotomy, small bowel resection and primary anastomosis) Tolerated regular diet and moving bowels 2). Hx Chest Pain, LBBB, CAD, CABG, Pacemaker, Aortic Stenosis, New Onset A-fib HOLD off on Eliquis considering findings on EGD 10/18/17: esophageal ulcer 7 mm nonbleeding, duodenum with superficial ulceration, adherent blood clot in jejunum 3). Hx Sepsis Secondary UTI (Klebsiella) Repeat Urine Culture 10/18/17 showed NO growth 4). Sputum (+) Yeast (10/18/17) Fluconazole 100 mg PO 1x/day Speak wit ID Dr. Lawson as to length of treatment: 7 days ? 5). Hx Melena/BRBPR Resolved HOLD off on Eliquis considering findings on EGD 10/18/17: esophageal ulcer 7 mm nonbleeding, duodenum with superficial ulceration, adherent blood clot in jejunum GI Dr. Boland 6). Hx Constipation Resolved 7). Hx Liver Cysts Evaluated by GI Dr. Boland NO further workup at this time 8). Hx Breast CA/Lumpectomy 9). Hx HTN Cardizem Cozaar Metoprolol 10). Hx HLD Crestor 11). Hx DM RISS Novolin R ACHS 12). Hx Episode Confusion Resolved 13). Hx Hypernatremia Resolved 14). Low Magnesium Magnesium Sulfate 1 gm IV x 2 doses F/U Physical Therapy Treatment and recommendations F/U Chest X Ray Portable 10/25/17: Spoke with Supervisor [employer]ar[employer] Margie and explained that patient does NOT want to go to [facility] or any other location in [place] Bertin Hastings D.O.
--- NOTE | 2017-10-25 10:10 | EEG ---
DATE: 10/24/2017 This is a 16-channel electroencephalogram of awake and drowsy adult. During the study, photic stimulation was performed. Hyperventilation was not performed. The resting electroencephalogram is well organized to perform a 30 to 40 microvolt, 9 to 11 Hz alpha activities especially seen in bilateral cortical leads. This activity is symmetrically attenuated on eye opening. Some movement artifacts contaminating the bilateral temporal leads particularly the right more than her left side. The photic stimulation did not evoke driving response noted at 2 to 20 Hz. IMPRESSION: This is a normal electroencephalogram of awake and drowsy adult. During the study, neither electroencephalographic paroxysmal activities nor focal slowing noted . Stiven Mazariegos MD
[2017-10-25] MEDS: Pantoprazole 40 mg EC Tab PO SCH (21:11)
[2017-10-26] MEDS: Vitamins A & D Oint UD Foilpak TOP SCH ×6 (00:36→21:58)
[2017-10-26] MEDS: Albuterol-Ipratrop 3 mg / 0.5 (3 ml) UD INH SCH ×4 (01:07→19:17)
--- NOTE | 2017-10-26 01:54 | CP.PCM.PN ---
Subjective - Date & Time of Evaluation Date of Evaluation: 10/25/17 Time of Evaluation: 11:00 - Subjective Subjective: feeling fine c/o cough HR stable H&h stable Objective - Vital Signs/Intake and Output Vital Signs (last 24 hours): Temp Pulse Resp BP Pulse Ox 99.2 F 104 H 20 110/70 96 10/25/17 23:10 10/25/17 23:10 10/25/17 23:10 10/25/17 23:10 10/25/17 23:10 Intake and Output: 10/25/17 10/26/17 18:59 06:59 Intake Total 730 340 Output Total 400 Balance 330 340 - Medications Medications: Current Medications Acetaminophen (Tylenol 325mg Tab) 650 mg PO Q6 PRN PRN Reason: Fever >100.4 F Albuterol/Ipratropium (Duoneb 3 Mg/0.5 Mg (3 Ml) Ud) 3 ml INH RQ6 [facility] Last Admin: 10/26/17 01:07 Dose: 3 ml Apixaban (Eliquis) 2.5 mg PO DAILY [facility]CLUD[facility] Diltiazem HCl (Cardizem) 60 mg PO Q6 [facility] Last Admin: 10/26/17 00:36 Dose: 60 mg Fluconazole (Diflucan) 100 mg PO DAILY COUNT [facility]CLUD[facility] Insulin Human Regular (Novolin R) 0 unit SC ACHS COUNT INCLUDES [facility] PRN Reason: Protocol Last Admin: 10/25/17 21:12 Dose: Not Given Levothyroxine Sodium (Synthroid) 50 mcg PO DAILY@0630 [facility] Last Admin: 10/25/17 05:58 Dose: 50 mcg Losartan Potassium (Cozaar) 100 mg PO DAILY [facility] Last Admin: 10/25/17 09:16 Dose: 100 mg Metoprolol Succinate (Toprol Xl) 25 mg PO DAILY [facility] Last Admin: 10/25/17 09:16 Dose: 25 mg Mupirocin (Bactroban Ointment) 0 gm TOP BID COUNT [facility]CLUDES [facility] Last Admin: 10/25/17 18:59 Dose: Not Given Ondansetron HCl (Zofran Inj) 4 mg IVP Q6H PRN PRN Reason: Nausea/Vomiting Last Admin: 10/10/17 21:10 Dose: 4 mg Pantoprazole Sodium (Protonix Ec Tab) 40 mg PO Q12H [facility]CLUD[facility] Last Admin: 10/25/17 21:11 Dose: 40 mg Polyethylene Glycol (Miralax) 17 gm PO BID PRN PRN Reason: Constipation Last Admin: 10/07/17 10:14 Dose: 17 gm Rosuvastatin Calcium (Crestor) 5 mg NG HS COUNT [facility]CLUDES [facility] Last Admin: 10/25/17 21:11 Dose: 5 mg Saccharomyces Boulardii (Florastor) 250 mg NG BID COUNT [facility]CLUDES [facility] Last Admin: 10/25/17 18:12 Dose: 250 mg Simethicone (Mylicon Chew Tab) 80 mg PO QID [facility] Last Admin: 10/25/17 21:11 Dose: 80 mg Vitamin A (Vitamin A & D Oint Ud Foilpak) 0.5 ea TOP Q4 [facility] Last Admin: 10/26/17 00:36 Dose: 0.5 ea - Labs Labs: 10/25/17 06:21 10/25/17 06:21 PT 14.3 SECONDS (9.7-12.2) H 10/17/17 22:24 INR 1.2 10/17/17 22:24 APTT 27 SECONDS (21-34) 10/17/17 22:24 - Constitutional Appears: Well - Head Exam Head Exam: ATRAUMATIC, NORMAL INSPECTION, NORMOCEPHALIC - Eye Exam Eye Exam: EOMI, Normal appearance, PERRL Pupil Exam: NORMAL ACCOMODATION, PERRL - ENT Exam ENT Exam: Mucous Membranes Moist, Normal Exam - Neck Exam Neck Exam: Full ROM, Normal Inspection. absent: Lymphadenopathy - Respiratory Exam Respiratory Exam: Clear to Ausculation Bilateral, NORMAL BREATHING PATTERN - Cardiovascular Exam Cardiovascular Exam: Irregular Rhythm, +S1, +S2, Murmur - GI/Abdominal Exam GI & Abdominal Exam: Soft, Normal Bowel Sounds. absent: Tenderness - Extremities Exam Extremities Exam: Full ROM, Normal Capillary Refill, Normal Inspection. absent : Joint Swelling, Pedal Edema - Back Exam Back Exam: NORMAL INSPECTION - Neurological Exam Neurological Exam: Alert, Awake, CN II-XII Intact, Oriented x3 - Psychiatric Exam Psychiatric exam: Normal Affect, Normal Mood - Skin Skin Exam: Dry, Intact, Normal Color, Warm Assessment and Plan (1) Afib Assessment & Plan: cont eliquis , cardizem Status: Acute (2) Chest discomfort Status: Acute (3) Chest pain Status: Acute (4) Hypertension Assessment & Plan: cont losartan, metoprolol Status: Acute (5) CAD (coronary artery disease) Status: Acute (6) Hx of CABG Status: Acute (7) Ischemic necrosis of small bowel Status: Acute (8) Respiratory failure with hypoxia Status: Resolved
[2017-10-26] MEDS: Levothyroxine 50 MCG TAB PO SCH (05:44)
[2017-10-26 06:25] LABS: BASO # 0.1 K/uL (0.0-0.2); BASO % 0.8 % (0.0-2.0); EOS # 0.1 K/uL (0.0-0.7); EOS % 1.2 % (0.0-4.0); LYMPH # 1.6 K/uL (1.0-4.3); LYMPH % 13.7 % (20.0-40.0); MEAN CELL VOLUME 89.3 fL (81.0-99.0); MEAN CORPUSCULAR HEMOGLOBIN 29.6 pg (27.0-31.0); MEAN CORPUSCULAR HGB CONC 33.2 g/dL (33.0-37.0); MEAN PLATELET VOLUME 8.9 fL (7.2-11.7); MONO # 1.4 K/uL (0.0-0.8); MONO % 12.2 % (0.0-10.0); NEUT # 8.2 K/uL (1.8-7.0); NEUT % 72.1 % (50.0-75.0); RBC 3.04 Mil/uL (3.80-5.20); RED CELL DISTRIBUTION WIDTH 15.9 % (11.5-14.5); WHITE BLOOD COUNT 11.4 K/uL (4.8-10.8)
[2017-10-26] MEDS: (Novolin R) Insulin Human Regular 100 units/ml vial SC SCH ×4 (07:27→21:48)
[2017-10-26 07:47] LABS: ALB/GLOB RATIO 0.7 (1.0-2.1); ALBUMIN 2.3 g/dL (3.5-5.0); ALT/SGPT 20 U/L (9-52); AST/SGOT 19 U/L (14-36); BLOOD UREA NITROGEN 11 mg/dL (7-17); GFR AFRICAN-AMERICAN > 60; GFR NON-AFRICAN AMERICAN > 60; MAGNESIUM 1.7 mg/dL (1.6-2.3)
[2017-10-26] MEDS: Saccharomyces Boulardi 250 mg Cap NG SCH ×2 (09:35→17:51)
[2017-10-26] MEDS: Metoprolol Succinate 25 mg XL Tab PO SCH (09:35)
[2017-10-26] MEDS: Simethicone 80 mg Chewtab PO SCH ×4 (09:35→22:16)
[2017-10-26] MEDS: Pantoprazole 40 mg EC Tab PO SCH ×2 (09:35→21:48)
--- NOTE | 2017-10-26 13:15 | CP.PCM.PN ---
<AamirLinda MarkJuvencio - Last Filed: 10/26/17 17:57> Subjective - Date & Time of Evaluation Date of Evaluation: 10/26/17 Time of Evaluation: 07:00 - Subjective Subjective: Medicine Progress Note: Patient was seen and examined at bedside in the AM. Overnight patient was complaining of chest pain. EKG was done no changes seen. This morning patient was complaining of shortness of breath. She states she feels weak. She also continues to state that she is old and that is why she is weak. Patient states she has only been using the spirometer a few times per day. Objective - Vital Signs/Intake and Output Vital Signs (last 24 hours): Temp Pulse Resp BP Pulse Ox 102.7 F H 98 H 18 119/54 L 100 10/26/17 12:28 10/26/17 12:00 10/26/17 08:06 10/26/17 12:32 10/26/17 08:06 Intake and Output: 10/26/17 10/26/17 06:59 18:59 Intake Total 340 Balance 340 - Medications Medications: Current Medications Acetaminophen (Tylenol 325mg Tab) 650 mg PO Q6 PRN PRN Reason: Fever >100.4 F Albuterol/Ipratropium (Duoneb 3 Mg/0.5 Mg (3 Ml) Ud) 3 ml INH RQ6 [facility] Last Admin: 10/26/17 07:00 Dose: 3 ml Alprazolam (Xanax) 0.25 mg PO TID PRN PRN Reason: Anxiety Stop: 11/02/17 11:09 Last Admin: 10/26/17 11:37 Dose: 0.25 mg Apixaban (Eliquis) 2.5 mg PO BID [facility] Diltiazem HCl (Cardizem) 60 mg PO Q6 [facility] Last Admin: 10/26/17 11:37 Dose: 60 mg Fluconazole (Diflucan) 100 mg PO DAILY [facility] Last Admin: 10/26/17 09:35 Dose: 100 mg Insulin Human Regular (Novolin R) 0 unit SC ACHS [facility] PRN Reason: Protocol Last Admin: 10/26/17 11:48 Dose: 1 unit Levothyroxine Sodium (Synthroid) 50 mcg PO DAILY@0630 [facility] Last Admin: 10/26/17 05:44 Dose: 50 mcg Losartan Potassium (Cozaar) 100 mg PO DAILY [facility] Last Admin: 10/26/17 09:36 Dose: 100 mg Metoprolol Succinate (Toprol Xl) 25 mg PO DAILY [facility] Last Admin: 10/26/17 09:35 Dose: 25 mg Mirtazapine (Remeron) 15 mg PO [facility] Mupirocin (Bactroban Ointment) 0 gm TOP BID [facility] Last Admin: 10/26/17 09:56 Dose: 1 gm Ondansetron HCl (Zofran Inj) 4 mg IVP Q6H PRN PRN Reason: Nausea/Vomiting Last Admin: 10/26/17 11:40 Dose: 4 mg Oseltamivir Phosphate (Tamiflu Cap) 75 mg PO BID [facility] Stop: 10/31/17 12:54 Pantoprazole Sodium (Protonix Ec Tab) 40 mg PO Q12H [facility] Last Admin: 10/26/17 09:35 Dose: 40 mg Polyethylene Glycol (Miralax) 17 gm PO BID PRN PRN Reason: Constipation Last Admin: 10/07/17 10:14 Dose: 17 gm Rosuvastatin Calcium (Crestor) 5 mg NG HS [facility] Last Admin: 10/25/17 21:11 Dose: 5 mg Saccharomyces Boulardii (Florastor) 250 mg NG BID [facility] Last Admin: 10/26/17 09:35 Dose: 250 mg Simethicone (Mylicon Chew Tab) 80 mg PO QID [facility] Last Admin: 10/26/17 09:35 Dose: 80 mg Vitamin A (Vitamin A & D Oint Ud Foilpak) 0.5 ea TOP Q4 [facility] Last Admin: 10/26/17 11:37 Dose: 0.5 ea - Labs Labs: 10/26/17 06:20 10/26/17 06:20 PT 14.3 SECONDS (9.7-12.2) H 10/17/17 22:24 INR 1.2 10/17/17 22:24 APTT 27 SECONDS (21-34) 10/17/17 22:24 - Constitutional Appears: No Acute Distress - Head Exam Head Exam: NORMAL INSPECTION - Eye Exam Eye Exam: EOMI, Normal appearance - ENT Exam ENT Exam: Mucous Membranes Moist Additional comments: NC in place - Respiratory Exam Respiratory Exam: NORMAL BREATHING PATTERN Additional comments: crackles in the left lower lobe - Cardiovascular Exam Cardiovascular Exam: Irregular Rhythm, +S1, +S2, Murmur (systolic murmur ). absent: REGULAR RHYTHM - GI/Abdominal Exam GI & Abdominal Exam: Soft, Normal Bowel Sounds. absent: Tenderness - Extremities Exam Extremities Exam: Normal Inspection - Neurological Exam Neurological Exam: Alert, Awake, Oriented x3 - Psychiatric Exam Psychiatric exam: Anxious - Skin Skin Exam: Normal Color, Warm Assessment and Plan - Assessment and Plan (Free Text) Assessment: Shortness of breath secondary to community acquired pneumonia - Chest Xray (10/25/17): mild venous congestion; patchy increased markings at the left lung base - one time dose of Lasix 20mg IV 10/26/17 and another dose Lasix 20mg po once - Rapid Influenza A + - f/u urine and blood culture - f/u procal - Monitor I/O - X-ray: no infiltrate seen however spoke with Dr. Hastings and we both agree x- ray does not show improvement from 10/25/17 - Medications: * Zosyn 3.375mg q6h * Cipro 400mg iv q12h * Vancomycin 1g q12h * f/u vanco troph * Floraster 250mg po bid Influenza A + - Tamiflu 75mg po bid - Tylenol 650mg q6h for 24 hours then will change PRN 10/27/17 - Isolation Bowel Ischemia GI Consult: Dr. Boland --> help appreciated - Chronic multiple liver cysts with largest being 16 cm, was seen on 2013 CT imaging however the largest measured 13x12 cm at the time. - Abdominal CT with IV contrast - patient refused studies at this time - Amylase 87, lipase 217 - Lactate: 1.8 - Morphine 1mg q6h PRN for pain - Enema - Stool Occult blood + - Hep panel: Negative Surgery Consult: Dr. Hinton --> help appreciated - Images: * CT abdomen/pelvis with contrast (10/07/17): Small bowel pneumatosis and portal venous gas concerning for bowel ischemia and necrosis. Multiple liver cysts. Nonobstructing calcifications in the left kidney. 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 In addition to the possible partial obstruction, there is prominent wall and fold enhancement of multiple small bowel loops suggesting enteritis. - Procedures * Exploratory Laparotomy, small bowel resection and primary anastomsis preformed 10/08/17 * Endoscopy (10/18/17): Esophageal ulcer, Z-line regular, normal stomach, erythematous duodenopathy, enterostomy, friable mucosa, inflammation and ulceration. - Per GI Dr. Boland the ulcers noted on EGD have a small risk for bleeding. Per Dr. Boland from a GI standpoint it is okay to restart Eliquis. Abdominal Aorta Aneurysm CT abdomen/pelvis with contrast (10/07/17): Small bowel pneumatosis and portal venous gas concerning for bowel ischemia and necrosis. Multiple liver cysts. Nonobstructing calcifications in the left kidney. 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 Inman --> help appreciated Chest Pain secondary to LBBB Cardiology Consult: Dr. Childs --> help appreciated * cardiac catheterization 10/06/17: LAD to SUMMERS is patent, but other graft is gone. There actually is no jump graft RCA is now 50% stenosed - EKGx3: LBBB - JOANNA x3 negative - Lipid panel: Cholesterol 159; LDL 91; HDL 41; Triglycerides 94 - TSH 2.92; Free T4 1.49 - Imaging * CT Chest w/ IV (10/04/17): 1. No evidence of thoracic aortic aneurysm, dissection, or rupture. 2. No acute pulmonary embolism. 3. Hepatic cysts * Chest X-ray: No interval acute cardiopulmonary disease appreciated * ECHO (10/04/17): EF 62%; * Last ECHO 2015 LVEF 63% - Medications * ASA 81mg PO daily * Diltiazem 60 mg PO Q6H * Crestor 5mg PO QHS * Cozaar 100 mg NG daily * Toprol XL 25mg PO daily New Onset Atrial Fibrillation - resolved Cardiology Consult: Dr. Childs --> help appreciated - Toprol XL 25mg PO daily - Diltiazem 60 mg PO Q6H - Eliquis 2.5mg BID CAD s/p CABG (2014) - Had an abnormal stress test 09/2016 Acute Anemia secondary to Melena - resolved - 2 episodes of bright red blood per rectum on 10/15/17. * received 1 unit PRBC 10/15/17 night and 2 more units of PRBC 10/17/17 * H/H stable 9.0/27.1 - Endoscopy (10/18/17): Esophageal ulcer, Z-line regular, normal stomach, erythematous duodenopathy, enterostomy, friable mucosa, inflammation and ulceration, no ulcer--c/w IV PP and monitor H/H - Continue to Monitor Bands - resolved Infectious Disease (Dr. Lawson) on the case-->help appreciated Code Sepsis 10/07/17 - blood culture (10/18/17): no growth - 5 days - urine culture (10/18/17): no growth - 5 days - MRSA no detected (10/23/17): - Trach Culture (10/18/17: yeast * Diflucan 50mls started 11/02/17 - Procal (10/18/17) 0.60 Episode of Confusion - per previous notes occurred the night of 10/15/17 - CT head: Prominent streak artifact in the bifrontal regions and posterior fossa limit evaluation. No acute intracranial abnormality. If symptoms persists , consider further evaluation with MRI. Chronic microvascular ischemic change. Mild sinus mucosal disease. - Neuro Consult: Dr. Mazariegos --> help appreciated - EEG: per Dr. Mazairegos's notes: No paroxysmal activities or focal slowing noted. The patient does have a normal EEG. - Per Dr. Mazariegos's note patient is cleared from a neurological standpoint. Hyperkalemia - resolved - 5.6 on admission - Once dose Kayexalate given Elevated T. Bili - resolved - 0.5 -Continue to Monitor Transaminitis - resolved - Continue to Monitor History of HTN - Resumed home medications: Norvasc 5mg PO daily, Cozaar 100mg PO daily History of HLD - Continue with home medication (lipitor not on formulary): Crestor 5mg PO QHS History of DM - Accuchecks - HGA1C: 7.1 (09/2017) - Carb Consistent Diet - Held home medication: Metformin - ISS- moderate History of Hypothyroidism - TSH 2.92; Free T4 1.49 - Continue with home medication: Synthroid 50mcg PO daily History Breast Cancer Prophylactic Measures - GI PPX: Protonix 40mg PO daily - DVT PPX: SCDs, Eliquis 2.5mg po bid - Remeron 15mg HS - PT eval and treat - Isolation - Palliative Care Consult --> help appreciated - Case Management --> help appreciated: pending approval at [facility] Case discussed with Dr. Venkata Rutledge PGY-1 <Bertin Hastings - Last Filed: 10/26/17 19:00> Objective - Vital Signs/Intake and Output Vital Signs (last 24 hours): Temp Pulse Resp BP Pulse Ox 98.8 F 83 20 102/61 96 10/26/17 15:36 10/26/17 16:25 10/26/17 15:36 10/26/17 18:18 10/26/17 15:36 Intake and Output: 10/26/17 10/26/17 06:59 18:59 Intake Total 340 600 Output Total 600 Balance 340 0 - Medications Medications: Current Medications Acetaminophen (Tylenol 325mg Tab) 650 mg PO Q6 [facility] Stop: 10/27/17 11:00 Last Admin: 10/26/17 18:19 Dose: 650 mg Albuterol/Ipratropium (Duoneb 3 Mg/0.5 Mg (3 Ml) Ud) 3 ml INH RQ6 [facility] Last Admin: 10/26/17 13:16 Dose: 3 ml Alprazolam (Xanax) 0.25 mg PO TID PRN PRN Reason: Anxiety Stop: 11/02/17 11:09 Last Admin: 10/26/17 11:37 Dose: 0.25 mg Apixaban (Eliquis) 2.5 mg PO BID [facility] Diltiazem HCl (Cardizem) 60 mg PO Q6 [facility] Last Admin: 10/26/17 17:51 Dose: 60 mg Fluconazole (Diflucan) 100 mg PO DAILY [facility] Last Admin: 10/26/17 09:35 Dose: 100 mg Vancomycin HCl 1 gm/ Sodium (Chloride) 200 mls @ 166.7 mls/hr IVPB Q12H [facility] Last Admin: 10/26/17 17:50 Dose: 166.7 mls/hr Piperacillin Sod/Tazobactam Sod (Zosyn 3.375 Gm Iv Premix) 3.375 gm in 50 mls @ 100 mls/hr IVPB Q6H [facility] Last Admin: 10/26/17 16:07 Dose: 100 mls/hr Ciprofloxacin (Cipro 400mg/200ml Dsw) 400 mg in 200 mls @ 133 mls/hr IVPB Q12H [facility] Insulin Human Regular (Novolin R) 0 unit SC ACHS TIM PRN Reason: Protocol Last Admin: 10/26/17 16:59 Dose: Not Given Levothyroxine Sodium (Synthroid) 50 mcg PO DAILY@0630 [facility] Last Admin: 10/26/17 05:44 Dose: 50 mcg Losartan Potassium (Cozaar) 100 mg PO DAILY [facility] Last Admin: 10/26/17 09:36 Dose: 100 mg Metoprolol Succinate (Toprol Xl) 25 mg PO DAILY [facility] Last Admin: 10/26/17 09:35 Dose: 25 mg Mirtazapine (Remeron) 15 mg PO HS [facility] Mupirocin (Bactroban Ointment) 0 gm TOP BID [facility] Last Admin: 10/26/17 17:50 Dose: 1 gm Ondansetron HCl (Zofran Inj) 4 mg IVP Q6H PRN PRN Reason: Nausea/Vomiting Last Admin: 10/26/17 11:40 Dose: 4 mg Oseltamivir Phosphate (Tamiflu Cap) 75 mg PO BID [facility] Stop: 10/31/17 12:54 Last Admin: 10/26/17 17:51 Dose: 75 mg Pantoprazole Sodium (Protonix Ec Tab) 40 mg PO Q12H [facility] Last Admin: 10/26/17 09:35 Dose: 40 mg Polyethylene Glycol (Miralax) 17 gm PO BID PRN PRN Reason: Constipation Last Admin: 10/07/17 10:14 Dose: 17 gm Rosuvastatin Calcium (Crestor) 5 mg NG HS [facility] Last Admin: 10/25/17 21:11 Dose: 5 mg Saccharomyces Boulardii (Florastor) 250 mg NG BID [facility] Last Admin: 10/26/17 17:51 Dose: 250 mg Simethicone (Mylicon Chew Tab) 80 mg PO QID [facility] Last Admin: 10/26/17 17:51 Dose: 80 mg Vitamin A (Vitamin A & D Oint Ud Foilpak) 0.5 ea TOP Q4 [facility] Last Admin: 10/26/17 17:50 Dose: 0.5 ea - Labs Labs: 10/26/17 06:20 10/26/17 06:20 PT 14.3 SECONDS (9.7-12.2) H 10/17/17 22:24 INR 1.2 10/17/17 22:24 APTT 27 SECONDS (21-34) 10/17/17 22:24 Attending/Attestation - Attestation I have personally seen and examined this patient.: Yes I have fully participated in the care of the patient.: Yes I have reviewed all pertinent clinical information, including history, physical exam and plan: Yes Notes (Text): 10/26/17 18:54 Patient was seen and examined with the resident Exam, assessment and plan were gone over with the resident. Also on ROS: SOB and dry cough during the night continues Moving her bowels: NO diarrhea, NO black/bloody stools Feels tired NO other complaints upon FULL ROS Also on exam: Cardio: Systolic Murmur along Left Sternal Border Resp: Mid to Lower Left Lung Field faint inspiratory crackles GI: midline surgical scar with alirio removed shows no signs of dehiscence/ cellulitis Skin: no ulcers present on sacrum or any other amelia prominence (performed with Nurse Yulisa) Assessments: 1). Hx Bowel Ischemia (10/08/17: Exploratory laparotomy, small bowel resection and primary anastomosis) Tolerated regular diet and moving bowels 2). Hx Chest Pain, LBBB, CAD, CABG, Pacemaker, Aortic Stenosis, New Onset A-fib HOLD off on Eliquis considering findings on EGD 10/18/17: esophageal ulcer 7 mm nonbleeding, duodenum with superficial ulceration, adherent blood clot in jejunum Cardiology Dr. Childs 3). Hx Sepsis Secondary UTI (Klebsiella) Repeat Urine Culture 10/18/17 showed NO growth 4). Sputum (+) Yeast (10/18/17) Fluconazole 100 mg PO 1x/day Speak wit ID Dr. Lawson as to length of treatment: 7 days ? 5). Influenza A and Likely Pneumonia Bilaterally Tamiflu 75 mg PO 2x/day through 10/30/17 Patient was given 1 dose of Lasix 20 mg IV due to findings on Respiratory Exam and Chest X Ray 10/25/17. Repeat Chest X Ray 10/26/17 did not show any improvement on pulmonary vascular congestion findings, therefore we have to assume that there is a component of Pneumonia (considering the Influenza and Fever). Therefore we are covering for Hosptial Acquired Pneumonia with the risk for Multidrug Resistance: Zosyn 3.375 gm IV Q6H Ciprofloxacin 400 mg IV Q12H Vancomycin 1 susanne IV Q12H F/U Vancomycin level 30 minutes PRIOR to 4th dose. ID Dr. Lawson 6). Hx Melena/BRBPR Resolved HOLD off on Eliquis considering findings on EGD 10/18/17: esophageal ulcer 7 mm nonbleeding, duodenum with superficial ulceration, adherent blood clot in jejunum GI Dr. Boland 7). Hx Constipation Resolved 8). Hx Liver Cysts Evaluated by GI Dr. Boland NO further workup at this time 9). Hx Breast CA/Lumpectomy 10). Hx HTN Cardizem Cozaar Metoprolol 11). Hx HLD Crestor 12). Hx DM RISS Novolin R ACHS 13). Hx Episode Confusion Resolved 14). Hx Hypernatremia Resolved 15). Low Magnesium Magnesium Sulfate 1 gm IV x 2 doses 10/25/17: Spoke with [employer] Consultant Margie and explained that patient does NOT want to go to [facility] or any other location in [place] Bertin Hastings D.O.
[2017-10-26 14:58] LABS: URINE BILIRUBIN NEGATIVE (NEGATIVE); URINE BLOOD NEGATIVE (NEGATIVE); URINE CLARITY Clear (Clear); URINE COLOR Yellow (YELLOW); URINE GLUCOSE (UA) 1+ mg/dL (Normal); URINE LEUKOCYTE ESTERASE NEG Leu/uL (Negative); URINE NITRATE NEGATIVE (NEGATIVE); URINE PROTEIN NEGATIVE (NEGATIVE); URINE UROBILINOGEN NORMAL mg/dL (0.2-1.0)
--- NOTE | 2017-10-26 15:42 | CP.PCM.PN ---
<DanayMaynor - Last Filed: 10/26/17 15:23> Subjective - Date & Time of Evaluation Date of Evaluation: 10/26/17 Time of Evaluation: 15:23 - Subjective Subjective: Cardiology progress note Patient seen and examined at bedside. Patient recently placed on flu/droplet precautions. She states she is not having any chest pain, but does complain of shortness of breath and some abdominal pain. Patient also states that she is tired. Objective - Vital Signs/Intake and Output Vital Signs (last 24 hours): Temp Pulse Resp BP Pulse Ox 102.7 F H 98 H 18 119/54 L 100 10/26/17 12:28 10/26/17 12:00 10/26/17 08:06 10/26/17 12:32 10/26/17 08:06 Intake and Output: 10/26/17 10/26/17 06:59 18:59 Intake Total 340 600 Output Total 600 Balance 340 0 - Medications Medications: Current Medications Acetaminophen (Tylenol 325mg Tab) 650 mg PO Q6 [facility] Stop: 10/27/17 11:00 Albuterol/Ipratropium (Duoneb 3 Mg/0.5 Mg (3 Ml) Ud) 3 ml INH RQ6 [facility] Last Admin: 10/26/17 13:16 Dose: 3 ml Alprazolam (Xanax) 0.25 mg PO TID PRN PRN Reason: Anxiety Stop: 11/02/17 11:09 Last Admin: 10/26/17 11:37 Dose: 0.25 mg Apixaban (Eliquis) 2.5 mg PO BID [facility] Ciprofloxacin (Cipro) 500 mg PO Q12 [facility] Diltiazem HCl (Cardizem) 60 mg PO Q6 [facility] Last Admin: 10/26/17 11:37 Dose: 60 mg Fluconazole (Diflucan) 100 mg PO DAILY [facility] Last Admin: 10/26/17 09:35 Dose: 100 mg Vancomycin HCl 1 gm/ Sodium (Chloride) 200 mls @ 166.7 mls/hr IVPB Q12H [facility] Piperacillin Sod/Tazobactam Sod (Zosyn 3.375 Gm Iv Premix) 3.375 gm in 50 mls @ 100 mls/hr IVPB Q6H [facility] Insulin Human Regular (Novolin R) 0 unit SC ACHS TIM PRN Reason: Protocol Last Admin: 10/26/17 11:48 Dose: 1 unit Levothyroxine Sodium (Synthroid) 50 mcg PO DAILY@0630 [facility] Last Admin: 10/26/17 05:44 Dose: 50 mcg Losartan Potassium (Cozaar) 100 mg PO DAILY [facility] Last Admin: 10/26/17 09:36 Dose: 100 mg Metoprolol Succinate (Toprol Xl) 25 mg PO DAILY [facility] Last Admin: 10/26/17 09:35 Dose: 25 mg Mirtazapine (Remeron) 15 mg PO HS [facility] Mupirocin (Bactroban Ointment) 0 gm TOP BID [facility] Last Admin: 10/26/17 09:56 Dose: 1 gm Ondansetron HCl (Zofran Inj) 4 mg IVP Q6H PRN PRN Reason: Nausea/Vomiting Last Admin: 10/26/17 11:40 Dose: 4 mg Oseltamivir Phosphate (Tamiflu Cap) 75 mg PO BID [facility] Stop: 10/31/17 12:54 Pantoprazole Sodium (Protonix Ec Tab) 40 mg PO Q12H [facility] Last Admin: 10/26/17 09:35 Dose: 40 mg Polyethylene Glycol (Miralax) 17 gm PO BID PRN PRN Reason: Constipation Last Admin: 10/07/17 10:14 Dose: 17 gm Rosuvastatin Calcium (Crestor) 5 mg NG HS [facility] Last Admin: 10/25/17 21:11 Dose: 5 mg Saccharomyces Boulardii (Florastor) 250 mg NG BID [facility] Last Admin: 10/26/17 09:35 Dose: 250 mg Simethicone (Mylicon Chew Tab) 80 mg PO QID [facility] Last Admin: 10/26/17 13:45 Dose: 80 mg Vitamin A (Vitamin A & D Oint Ud Foilpak) 0.5 ea TOP Q4 [facility] Last Admin: 10/26/17 11:37 Dose: 0.5 ea - Labs Labs: 10/26/17 06:20 10/26/17 06:20 PT 14.3 SECONDS (9.7-12.2) H 10/17/17 22:24 INR 1.2 10/17/17 22:24 APTT 27 SECONDS (21-34) 10/17/17 22:24 - Additional Findings Additional findings: Physical Exam: Vital Signs as below Const'l: +Patient extubated, oriented x 3, satting well Head/Neck: neck supple, no jvd, trachea midline, carotid midline, no cervical/head mass Eyes: pupils equally reactive to light and accommodation, nonicteric sclera, extraocular intact ENT: auditory acuity grossly intact, throat not congested, no nasal deformity Cardio: +Regular rhythm; +scar on chest wall on left and right sides, regular rate, regular rhythm, no murmurs rubs gallops, no carotid bruit, normal s1, s2 Pulm: no accessory muscle use, equal normal breath sounds bilaterally, clear to ausculation bilaterally Abd: +Abdominal incision site is clean, dry, intact with alirio; + obesity limiting exam, +slightly diminished bowel sounds in lower quadrants - resolved; soft non tender non-distended, no palpable masses Derm: no rashes, no ulcers, no lesions Extr: no edema, no cyanosis, no calf tenderness, no lesions, no varicosities Neuro: cranial nerves II-XII grossly intact, upper extremity and lower extremity 5/5 muscle strength bilaterally, no loss of sensation in upper extremities, lower extremities bilaterally and core Assessment and Plan - Assessment and Plan (Free Text) Assessment: For extensive Assessment and Plan history, please see note from 10/18, at the bottom in italics; and see note from 10/20 at bottom in italics Acute Assessments and Plan: 77 year old female with extensive cardiac history presented with chest pain on this admission, ACS ruled out, Cath performed. Patient also had new onset atrial fibrillation which has now resolved with diltiazem, amiodarone, and metoprolol. Patient had a code blue on 10/17/17 for pulselessness and respiratory distress. Patient was brought to [facility] with Bicarb and Epi. Diminished pulse and dyspnea were likely 2/2 GI bleed, as patient had black, tarry stools for a couple of days. Eliquis on hold, Dr. Boland has performed EGD - please see findings in his note. Patient then had hypernatremia 2/2 hypovolemia, for which she was given fluids. Patient feeling worse today, was positive for influenza A. Patient reverted back to A-Fib as well, but EKG did not show ST elevations. Troponins pending New-Onset Atrial Fibrillation, reoccurred today, 10/26/17 - Patient is rate controlled - Rate control: Metoprolol 25 - Rhythm management: Diltiazem and Amiodarone * Patient LFT's are fine and no signs of pulmonary fibrosis * TFT's normalized - Anticoagulation - Eliquis 2.5 BID Acute Influenza infection - Per primary management Blood Loss Anemia 2/2 Acute GI Bleed - Stabilizing - Mgmt per primary, surgery, and GI Dyspnea, likely 2/2 to Blood Loss Anemia - Patient given 2 units of blood 10/18, feels better now hemoglobin is stabilizing - Patient on 2L NC - Rest of management per primary 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 ID on board Dispo: Restarted patient's Eliquis, Patient now has flu - management per primary. Hypernatremia, Anemia , resolving. <Babak Childs - Last Filed: 10/26/17 17:44> Objective - Vital Signs/Intake and Output Vital Signs (last 24 hours): Temp Pulse Resp BP Pulse Ox 98.8 F 83 20 102/61 96 10/26/17 15:36 10/26/17 16:25 10/26/17 15:36 10/26/17 15:36 10/26/17 15:36 Intake and Output: 10/26/17 10/26/17 06:59 18:59 Intake Total 340 600 Output Total 600 Balance 340 0 - Medications Medications: Current Medications Acetaminophen (Tylenol 325mg Tab) 650 mg PO Q6 [facility] Stop: 10/27/17 11:00 Albuterol/Ipratropium (Duoneb 3 Mg/0.5 Mg (3 Ml) Ud) 3 ml INH RQ6 [facility] Last Admin: 10/26/17 13:16 Dose: 3 ml Alprazolam (Xanax) 0.25 mg PO TID PRN PRN Reason: Anxiety Stop: 11/02/17 11:09 Last Admin: 10/26/17 11:37 Dose: 0.25 mg Apixaban (Eliquis) 2.5 mg PO BID [facility] Ciprofloxacin (Cipro) 500 mg PO Q12 [facility] Diltiazem HCl (Cardizem) 60 mg PO Q6 [facility] Last Admin: 10/26/17 11:37 Dose: 60 mg Fluconazole (Diflucan) 100 mg PO DAILY [facility] Last Admin: 10/26/17 09:35 Dose: 100 mg Vancomycin HCl 1 gm/ Sodium (Chloride) 200 mls @ 166.7 mls/hr IVPB Q12H [facility] Piperacillin Sod/Tazobactam Sod (Zosyn 3.375 Gm Iv Premix) 3.375 gm in 50 mls @ 100 mls/hr IVPB Q6H [facility] Last Admin: 10/26/17 16:07 Dose: 100 mls/hr Insulin Human Regular (Novolin R) 0 unit SC ACHS [facility] PRN Reason: Protocol Last Admin: 10/26/17 16:59 Dose: Not Given Levothyroxine Sodium (Synthroid) 50 mcg PO DAILY@0630 [facility] Last Admin: 10/26/17 05:44 Dose: 50 mcg Losartan Potassium (Cozaar) 100 mg PO DAILY [facility] Last Admin: 10/26/17 09:36 Dose: 100 mg Metoprolol Succinate (Toprol Xl) 25 mg PO DAILY [facility] Last Admin: 10/26/17 09:35 Dose: 25 mg Mirtazapine (Remeron) 15 mg PO HS [facility] Mupirocin (Bactroban Ointment) 0 gm TOP BID [facility] Last Admin: 10/26/17 09:56 Dose: 1 gm Ondansetron HCl (Zofran Inj) 4 mg IVP Q6H PRN PRN Reason: Nausea/Vomiting Last Admin: 10/26/17 11:40 Dose: 4 mg Oseltamivir Phosphate (Tamiflu Cap) 75 mg PO BID [facility] Stop: 10/31/17 12:54 Pantoprazole Sodium (Protonix Ec Tab) 40 mg PO Q12H [facility] Last Admin: 10/26/17 09:35 Dose: 40 mg Polyethylene Glycol (Miralax) 17 gm PO BID PRN PRN Reason: Constipation Last Admin: 10/07/17 10:14 Dose: 17 gm Rosuvastatin Calcium (Crestor) 5 mg NG HS [facility] Last Admin: 10/25/17 21:11 Dose: 5 mg Saccharomyces Boulardii (Florastor) 250 mg NG BID [facility] Last Admin: 10/26/17 09:35 Dose: 250 mg Simethicone (Mylicon Chew Tab) 80 mg PO QID [facility] Last Admin: 10/26/17 13:45 Dose: 80 mg Vitamin A (Vitamin A & D Oint Ud Foilpak) 0.5 ea TOP Q4 [facility] Last Admin: 10/26/17 11:37 Dose: 0.5 ea - Labs Labs: 10/26/17 06:20 10/26/17 06:20 PT 14.3 SECONDS (9.7-12.2) H 10/17/17 22:24 INR 1.2 10/17/17 22:24 APTT 27 SECONDS (21-34) 10/17/17 22:24 Assessment and Plan (1) Afib Status: Acute (2) Chest discomfort Status: Acute (3) Chest pain Status: Acute (4) Hypertension Status: Acute (5) CAD (coronary artery disease) Status: Acute (6) Hx of CABG Status: Acute (7) Ischemic necrosis of small bowel Status: Acute (8) Respiratory failure with hypoxia Status: Resolved Attending/Attestation - Attestation I have personally seen and examined this patient.: Yes I have fully participated in the care of the patient.: Yes I have reviewed all pertinent clinical information, including history, physical exam and plan: Yes Notes (Text): 10/26/17 17:44 concern by PCP for drop in hgb ok to continue OAC per GI for now flu +ve cont GDMT for CAD
[2017-10-26] MEDS ORDERED: Piperacillin/Tazobact 3.375 GM in Sodium Chloride 100 ML IVPB SCH (16:00)
--- NOTE | 2017-10-26 16:06 | RAD ---
HISTORY: r/o pneumonia COMPARISON: 10/25/2017 FINDINGS: LUNGS: No active pulmonary disease. PLEURA: No significant pleural effusion identified, no pneumothorax apparent. CARDIOVASCULAR: CABG. Sternotomy wires. Permanent pacemaker. Normal heart size. No congestive change. OSSEOUS STRUCTURES: No significant abnormalities. VISUALIZED UPPER ABDOMEN: Normal. OTHER FINDINGS: None. IMPRESSION: No acute infiltrate.
[2017-10-26] MEDS: Piperacill/Tazo 3.375gm in Dex 3.375 GM/50 ML BAG IVPB SCH ×2 (16:07→21:49)
[2017-10-26] MEDS: Vancomycin 1 GM in Sodium Chloride 0.9% 200 ML IVPB SCH (17:50)
[2017-10-26] MEDS: Ciprofloxacin 400mg/200ml D5W 400 MG/200 ML BAG IVPB SCH (19:44)
[2017-10-27] MEDS: Vitamins A & D Oint UD Foilpak TOP SCH ×4 (00:35→12:00)
[2017-10-27] MEDS: Albuterol-Ipratrop 3 mg / 0.5 (3 ml) UD INH SCH ×4 (01:40→20:36)
[2017-10-27] MEDS: Piperacill/Tazo 3.375gm in Dex 3.375 GM/50 ML BAG IVPB SCH ×4 (03:35→21:32)
[2017-10-27] MEDS: Vancomycin 1 GM in Sodium Chloride 0.9% 200 ML IVPB SCH (04:19)
[2017-10-27] MEDS: Levothyroxine 50 MCG TAB PO SCH (06:02)
[2017-10-27] MEDS: Ciprofloxacin 400mg/200ml D5W 400 MG/200 ML BAG IVPB SCH (06:03)
[2017-10-27 07:24] LABS: BASO % 0.8 % (0.0-2.0); EOS # 0.3 K/uL (0.0-0.7); EOS % 4.3 % (0.0-4.0); HEMOGLOBIN 8.2 g/dL (11.0-16.0); LYMPH # 0.8 K/uL (1.0-4.3); LYMPH % 12.1 % (20.0-40.0); MEAN CELL VOLUME 89.6 fL (81.0-99.0); MEAN CORPUSCULAR HEMOGLOBIN 30.5 pg (27.0-31.0); MEAN CORPUSCULAR HGB CONC 34.1 g/dL (33.0-37.0); MEAN PLATELET VOLUME 8.8 fL (7.2-11.7); MONO % 16.5 % (0.0-10.0); NEUT # 4.2 K/uL (1.8-7.0); NEUT % 66.3 % (50.0-75.0); RBC 2.67 Mil/uL (3.80-5.20); RED CELL DISTRIBUTION WIDTH 16.1 % (11.5-14.5); WHITE BLOOD COUNT 6.3 K/uL (4.8-10.8)
[2017-10-27] MEDS: (Novolin R) Insulin Human Regular 100 units/ml vial SC SCH ×4 (07:37→21:34)
[2017-10-27 08:04] LABS: ALB/GLOB RATIO 0.7 (1.0-2.1); ALBUMIN 2.1 g/dL (3.5-5.0); ALT/SGPT 20 U/L (9-52); AST/SGOT 18 U/L (14-36); BLOOD UREA NITROGEN 13 mg/dL (7-17); CALCIUM 7.7 mg/dl (8.6-10.4); GFR AFRICAN-AMERICAN > 60; GFR NON-AFRICAN AMERICAN 54; MAGNESIUM 1.7 mg/dL (1.6-2.3)
--- NOTE | 2017-10-27 09:11 | CP.PCM.PN ---
Subjective - Date & Time of Evaluation Date of Evaluation: 10/27/17 Time of Evaluation: 09:13 - Subjective Subjective: Cardiology Progress Note Patient seen and examined at bedside. States she is still not feeling well. Per nursing, patient was straight cath'd last night and is to straight cath for residual above 200. Patient states she has typical flu symptoms but denies chest pain or shortness of breath. Does admit to some right sided abdominal pain. Objective - Vital Signs/Intake and Output Vital Signs (last 24 hours): Temp Pulse Resp BP Pulse Ox 98.8 F 100 H 20 118/63 97 10/27/17 08:07 10/27/17 08:07 10/27/17 08:07 10/27/17 08:07 10/27/17 08:07 Intake and Output: 10/27/17 10/27/17 06:59 18:59 Intake Total 1310 Output Total 1900 Balance -590 - Medications Medications: Current Medications Acetaminophen (Tylenol 325mg Tab) 650 mg PO Q6 [facility] Stop: 10/27/17 11:00 Last Admin: 10/27/17 06:01 Dose: 650 mg Albuterol/Ipratropium (Duoneb 3 Mg/0.5 Mg (3 Ml) Ud) 3 ml INH RQ6 [facility] Last Admin: 10/27/17 07:00 Dose: 3 ml Alprazolam (Xanax) 0.25 mg PO TID PRN PRN Reason: Anxiety Stop: 11/02/17 11:09 Last Admin: 10/26/17 11:37 Dose: 0.25 mg Apixaban (Eliquis) 2.5 mg PO BID [facility] Last Admin: 10/26/17 21:48 Dose: 2.5 mg Diltiazem HCl (Cardizem) 60 mg PO Q6 [facility] Last Admin: 10/27/17 06:02 Dose: 60 mg Fluconazole (Diflucan) 100 mg PO DAILY [facility] Last Admin: 10/26/17 09:35 Dose: 100 mg Vancomycin HCl 1 gm/ Sodium (Chloride) 200 mls @ 166.7 mls/hr IVPB Q12H [facility] Last Admin: 10/27/17 04:19 Dose: 166.7 mls/hr Piperacillin Sod/Tazobactam Sod (Zosyn 3.375 Gm Iv Premix) 3.375 gm in 50 mls @ 100 mls/hr IVPB Q6H [facility] Last Admin: 10/27/17 03:35 Dose: 100 mls/hr Ciprofloxacin (Cipro 400mg/200ml Dsw) 400 mg in 200 mls @ 133 mls/hr IVPB Q12H [facility] Last Admin: 10/27/17 06:03 Dose: 133 mls/hr Insulin Human Regular (Novolin R) 0 unit SC ACHS [facility] PRN Reason: Protocol Last Admin: 10/27/17 07:37 Dose: Not Given Levothyroxine Sodium (Synthroid) 50 mcg PO DAILY@0630 [facility] Last Admin: 10/27/17 06:02 Dose: 50 mcg Losartan Potassium (Cozaar) 100 mg PO DAILY [facility] Last Admin: 10/26/17 09:36 Dose: 100 mg Metoprolol Succinate (Toprol Xl) 25 mg PO DAILY [facility] Last Admin: 10/26/17 09:35 Dose: 25 mg Mirtazapine (Remeron) 15 mg PO HS [facility] Last Admin: 10/26/17 21:48 Dose: 15 mg Mupirocin (Bactroban Ointment) 0 gm TOP BID [facility] Last Admin: 10/26/17 17:50 Dose: 1 gm Ondansetron HCl (Zofran Inj) 4 mg IVP Q6H PRN PRN Reason: Nausea/Vomiting Last Admin: 10/26/17 11:40 Dose: 4 mg Oseltamivir Phosphate (Tamiflu Cap) 75 mg PO BID [facility] Stop: 10/31/17 12:54 Last Admin: 10/26/17 17:51 Dose: 75 mg Pantoprazole Sodium (Protonix Ec Tab) 40 mg PO Q12H [facility] Last Admin: 10/26/17 21:48 Dose: 40 mg Polyethylene Glycol (Miralax) 17 gm PO BID PRN PRN Reason: Constipation Last Admin: 10/07/17 10:14 Dose: 17 gm Rosuvastatin Calcium (Crestor) 5 mg NG HS [facility] Last Admin: 10/26/17 21:48 Dose: 5 mg Saccharomyces Boulardii (Florastor) 250 mg NG BID [facility] Last Admin: 10/26/17 17:51 Dose: 250 mg Simethicone (Mylicon Chew Tab) 80 mg PO QID [facility] Last Admin: 10/26/17 22:16 Dose: Not Given Vitamin A (Vitamin A & D Oint Ud Foilpak) 0.5 ea TOP Q4 [facility] Last Admin: 10/27/17 04:18 Dose: 0.5 ea - Labs Labs: 10/27/17 07:13 10/27/17 07:13 PT 14.3 SECONDS (9.7-12.2) H 10/17/17 22:24 INR 1.2 10/17/17 22:24 APTT 27 SECONDS (21-34) 10/17/17 22:24 - Additional Findings Additional findings: Physical Exam: Vital Signs as below Const'l: +Patient extubated, oriented x 3, satting well Head/Neck: neck supple, no jvd, trachea midline, carotid midline, no cervical/head mass Eyes: pupils equally reactive to light and accommodation, nonicteric sclera, extraocular intact ENT: auditory acuity grossly intact, throat not congested, no nasal deformity Cardio: +Irregular rhythm; +Scar on chest wall on left and right sides; regular rate, no murmurs rubs gallops, no carotid bruit, normal s1, s2 Pulm: no accessory muscle use, equal normal breath sounds bilaterally, clear to ausculation bilaterally Abd: +Abdominal incision site is clean, dry, intact with alirio; + obesity limiting exam, +slightly diminished bowel sounds in lower quadrants - resolved; soft non tender non-distended, no palpable masses Derm: no rashes, no ulcers, no lesions Extr: no edema, no cyanosis, no calf tenderness, no lesions, no varicosities Neuro: cranial nerves II-XII grossly intact, upper extremity and lower extremity 5/5 muscle strength bilaterally, no loss of sensation in upper extremities, lower extremities bilaterally and core Assessment and Plan - Assessment and Plan (Free Text) Assessment: For extensive Assessment and Plan history, please see note from 10/18, at the bottom in italics; and see note from 10/20 at bottom in italics Acute Assessments and Plan: 77 year old female with extensive cardiac history presented with chest pain on this admission, ACS ruled out, Cath performed. Patient also had new onset atrial fibrillation which had resolved with diltiazem, amiodarone, and metoprolol, but patient went back into A-Fib yesterday, 10/26/17. Patient was taken to the OR for bowel ischemia and had two feet of small bowel resection. Patient had a code blue on 10/17/17 for pulselessness and respiratory distress. Patient was brought to [facility] with Bicarb and Epi. Diminished pulse and dyspnea were likely 2/2 GI bleed, as patient had black, tarry stools for a couple of days. Eliquis restarted, Dr. Boland has performed EGD - please see findings in his note. Patient then had hypernatremia 2/2 hypovolemia, for which she was given fluids. Finally, patient was also positive for oropharyngeal yeast infection. Patient feeling worse today, was positive for influenza A. Patient reverted back to A-Fib as well, but EKG did not show ST elevations. Troponins pending New-Onset Atrial Fibrillation, reoccurred yesterday, 10/26/17 - Patient is rate controlled - Rate control: Metoprolol 25 - Rhythm management: Diltiazem and Amiodarone * Patient LFT's are fine and no signs of pulmonary fibrosis * TFT's normalized * Monitor LFTs, TFTs, PFT's - Anticoagulation - Eliquis 2.5 BID Acute Influenza infection - Per primary management Blood Loss Anemia 2/2 Acute GI Bleed - Stabilizing - Mgmt per primary, surgery, and GI Dyspnea, likely 2/2 to Blood Loss Anemia - Patient given 2 units of blood 10/18, feels better now hemoglobin is stabilizing - Patient on 2L NC - Rest of management per primary 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 ID on board Dispo: Restarted patient's Eliquis, Patient now has flu - management per primary. Hypernatremia, Anemia, resolving. Patient in A-Fib but rate controlled.
--- NOTE | 2017-10-27 09:24 | CP.PCM.PN ---
Subjective - Date & Time of Evaluation Date of Evaluation: 10/27/17 Time of Evaluation: 07:00 - Subjective Subjective: Medicine Progress Note: Patient was seen and examined at bedside in the AM. Patient states she slept a lot better last night. She denies nausea, vomiting, diarrhea, constipation, or bloody stool. Later in the afternoon patient was evaluated for abdominal pain. Patient states the pain is located on her right side and it radiates to her back. She states the pain is a tightening pain that comes and goes and it is currently a 6/10. Objective - Vital Signs/Intake and Output Vital Signs (last 24 hours): Temp Pulse Resp BP Pulse Ox 98.8 F 100 H 20 118/63 97 10/27/17 08:07 10/27/17 08:07 10/27/17 08:07 10/27/17 08:07 10/27/17 08:07 Intake and Output: 10/27/17 10/27/17 06:59 18:59 Intake Total 1310 Output Total 1900 Balance -590 - Medications Medications: Current Medications Acetaminophen (Tylenol 325mg Tab) 650 mg PO Q6 [facility] Stop: 10/27/17 11:00 Last Admin: 10/27/17 06:01 Dose: 650 mg Acetaminophen (Tylenol 325mg Tab) 650 mg PO Q6 [facility] Albuterol/Ipratropium (Duoneb 3 Mg/0.5 Mg (3 Ml) Ud) 3 ml INH RQ6 [facility] Last Admin: 10/27/17 07:00 Dose: 3 ml Alprazolam (Xanax) 0.25 mg PO TID PRN PRN Reason: Anxiety Stop: 11/02/17 11:09 Last Admin: 10/26/17 11:37 Dose: 0.25 mg Apixaban (Eliquis) 2.5 mg PO BID [facility] Last Admin: 10/26/17 21:48 Dose: 2.5 mg Diltiazem HCl (Cardizem) 60 mg PO Q6 [facility] Last Admin: 10/27/17 06:02 Dose: 60 mg Fluconazole (Diflucan) 100 mg PO DAILY [facility] Last Admin: 10/26/17 09:35 Dose: 100 mg Vancomycin HCl 1 gm/ Sodium (Chloride) 200 mls @ 166.7 mls/hr IVPB Q12H [facility] Last Admin: 10/27/17 04:19 Dose: 166.7 mls/hr Piperacillin Sod/Tazobactam Sod (Zosyn 3.375 Gm Iv Premix) 3.375 gm in 50 mls @ 100 mls/hr IVPB Q6H [facility] Last Admin: 10/27/17 03:35 Dose: 100 mls/hr Ciprofloxacin (Cipro 400mg/200ml Dsw) 400 mg in 200 mls @ 133 mls/hr IVPB Q12H [facility] Last Admin: 10/27/17 06:03 Dose: 133 mls/hr Insulin Human Regular (Novolin R) 0 unit SC ACHS [facility] PRN Reason: Protocol Last Admin: 10/27/17 07:37 Dose: Not Given Levothyroxine Sodium (Synthroid) 50 mcg PO DAILY@0630 [facility] Last Admin: 10/27/17 06:02 Dose: 50 mcg Losartan Potassium (Cozaar) 100 mg PO DAILY [facility] Last Admin: 10/26/17 09:36 Dose: 100 mg Metoprolol Succinate (Toprol Xl) 25 mg PO DAILY [facility] Last Admin: 10/26/17 09:35 Dose: 25 mg Mirtazapine (Remeron) 15 mg PO HS [facility] Last Admin: 10/26/17 21:48 Dose: 15 mg Mupirocin (Bactroban Ointment) 0 gm TOP BID [facility] Last Admin: 10/26/17 17:50 Dose: 1 gm Ondansetron HCl (Zofran Inj) 4 mg IVP Q6H PRN PRN Reason: Nausea/Vomiting Last Admin: 10/26/17 11:40 Dose: 4 mg Oseltamivir Phosphate (Tamiflu Cap) 75 mg PO BID [facility] Stop: 10/31/17 12:54 Last Admin: 10/26/17 17:51 Dose: 75 mg Pantoprazole Sodium (Protonix Ec Tab) 40 mg PO Q12H [facility] Last Admin: 10/26/17 21:48 Dose: 40 mg Polyethylene Glycol (Miralax) 17 gm PO BID PRN PRN Reason: Constipation Last Admin: 10/07/17 10:14 Dose: 17 gm Rosuvastatin Calcium (Crestor) 5 mg NG HS [facility] Last Admin: 10/26/17 21:48 Dose: 5 mg Saccharomyces Boulardii (Florastor) 250 mg NG BID [facility] Last Admin: 10/26/17 17:51 Dose: 250 mg Simethicone (Mylicon Chew Tab) 80 mg PO QID [facility] Last Admin: 10/26/17 22:16 Dose: Not Given Vitamin A (Vitamin A & D Oint Ud Foilpak) 0.5 ea TOP Q4 [facility] Last Admin: 10/27/17 04:18 Dose: 0.5 ea - Labs Labs: 10/27/17 07:13 10/27/17 07:13 PT 14.3 SECONDS (9.7-12.2) H 10/17/17 22:24 INR 1.2 10/17/17 22:24 APTT 27 SECONDS (21-34) 10/17/17 22:24 - Constitutional Appears: No Acute Distress - Head Exam Head Exam: NORMAL INSPECTION - Eye Exam Eye Exam: EOMI, Normal appearance - ENT Exam ENT Exam: Mucous Membranes Moist - Respiratory Exam Respiratory Exam: NORMAL BREATHING PATTERN Additional comments: crackles in the left lower lobe - Cardiovascular Exam Cardiovascular Exam: REGULAR RHYTHM, +S1, +S2, Murmur (systolic murmur ) - GI/Abdominal Exam GI & Abdominal Exam: Soft, Tenderness (ruq tenderness), Normal Bowel Sounds. absent: Distended, Firm, Guarding - Back Exam Back Exam: paraspinal tenderness - Neurological Exam Neurological Exam: Alert, Awake, Oriented x3 - Psychiatric Exam Psychiatric exam: Anxious - Skin Skin Exam: Normal Color, Warm Assessment and Plan - Assessment and Plan (Free Text) Assessment: Abdominal Pain - f/u abdominal/pelvis CT with PO and IV contrast Shortness of breath secondary to community acquired pneumonia - Chest Xray (10/25/17): mild venous congestion; patchy increased markings at the left lung base - one time dose of Lasix 20mg IV 10/26/17 and another dose Lasix 20mg po once - Rapid Influenza A + - f/u urine and blood culture - f/u procal - Monitor I/O - X-ray: no infiltrate seen however spoke with Dr. Hastings and we both agree x- ray does not show improvement from 10/25/17 - Medications: * Zosyn 3.375mg q6h * Cipro 400mg iv q12h * Vancomycin 1g q12h * f/u vanco troph 10/28/17 * Floraster 250mg po bid - PICC line ordered for IV antibiotics Influenza A + - Tamiflu 75mg po bid - Tylenol 650mg q6h for 24 hours then will change PRN 10/27/17 - Isolation Urinary Retention - Bladder scan q6h - If greater than 200cc nurse will straight cath - f/u urine culture Bowel Ischemia GI Consult: Dr. Boland --> help appreciated - Chronic multiple liver cysts with largest being 16 cm, was seen on 2013 CT imaging however the largest measured 13x12 cm at the time. - Abdominal CT with IV contrast - patient refused studies at this time - Amylase 87, lipase 217 - Lactate: 1.8 - Morphine 1mg q6h PRN for pain - Enema - Stool Occult blood + (10/07/17 and 10/18/17) - Repeat Stool occult blood negative (10/26/17) - Hep panel: Negative Surgery Consult: Dr. Hinton --> help appreciated - Images: * CT abdomen/pelvis with contrast (10/07/17): Small bowel pneumatosis and portal venous gas concerning for bowel ischemia and necrosis. Multiple liver cysts. Nonobstructing calcifications in the left kidney. 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 In addition to the possible partial obstruction, there is prominent wall and fold enhancement of multiple small bowel loops suggesting enteritis. - Procedures * Exploratory Laparotomy, small bowel resection and primary anastomsis preformed 10/08/17 * Endoscopy (10/18/17): Esophageal ulcer, Z-line regular, normal stomach, erythematous duodenopathy, enterostomy, friable mucosa, inflammation and ulceration. - Per GI Dr. Boland the ulcers noted on EGD have a small risk for bleeding. Per Dr. Boland from a GI standpoint it is okay to restart Eliquis. Abdominal Aorta Aneurysm CT abdomen/pelvis with contrast (10/07/17): Small bowel pneumatosis and portal venous gas concerning for bowel ischemia and necrosis. Multiple liver cysts. Nonobstructing calcifications in the left kidney. 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 Inman --> help appreciated Chest Pain secondary to LBBB Cardiology Consult: Dr. Childs --> help appreciated * cardiac catheterization 10/06/17: LAD to SUMMERS is patent, but other graft is gone. There actually is no jump graft RCA is now 50% stenosed - EKGx3: LBBB - JOANNA x3 negative - Lipid panel: Cholesterol 159; LDL 91; HDL 41; Triglycerides 94 - TSH 2.92; Free T4 1.49 - Imaging * CT Chest w/ IV (10/04/17): 1. No evidence of thoracic aortic aneurysm, dissection, or rupture. 2. No acute pulmonary embolism. 3. Hepatic cysts * Chest X-ray: No interval acute cardiopulmonary disease appreciated * ECHO (10/04/17): EF 62%; * Last ECHO 2015 LVEF 63% - Medications * ASA 81mg PO daily * Diltiazem 60 mg PO Q6H * Crestor 5mg PO QHS * Cozaar 100 mg NG daily * Toprol XL 25mg PO daily New Onset Atrial Fibrillation - resolved Cardiology Consult: Dr. Childs --> help appreciated - Toprol XL 25mg PO daily - Diltiazem 60 mg PO Q6H - Eliquis 2.5mg BID - hold due to PICC line placement 10/27/17 CAD s/p CABG (2014) - Had an abnormal stress test 09/2016 Acute Anemia secondary to Melena - resolved - 2 episodes of bright red blood per rectum on 10/15/17. * received 1 unit PRBC 10/15/17 night and 2 more units of PRBC 10/17/17 * H/H stable 9.0/27.1 - Endoscopy (10/18/17): Esophageal ulcer, Z-line regular, normal stomach, erythematous duodenopathy, enterostomy, friable mucosa, inflammation and ulceration, no ulcer--c/w IV PP and monitor H/H - Stool Occult blood + (10/07/17 and 10/18/17) - Repeat Stool occult blood negative (10/26/17) - Continue to Monitor Bands - resolved Infectious Disease (Dr. Lawson) on the case-->help appreciated Code Sepsis 10/07/17 - blood culture (10/18/17): no growth - 5 days - urine culture (10/18/17): no growth - 5 days - MRSA no detected (10/23/17): - Trach Culture (10/18/17: yeast * Diflucan 50mls started 10/23/17 --> discontinued 10/27/17 - Procal (10/18/17) 0.60 Episode of Confusion - per previous notes occurred the night of 10/15/17 - CT head: Prominent streak artifact in the bifrontal regions and posterior fossa limit evaluation. No acute intracranial abnormality. If symptoms persists , consider further evaluation with MRI. Chronic microvascular ischemic change. Mild sinus mucosal disease. - Neuro Consult: Dr. Mazariegos --> help appreciated - EEG: per Dr. Mazariegos's notes: No paroxysmal activities or focal slowing noted. The patient does have a normal EEG. - Per Dr. Mazariegos's note patient is cleared from a neurological standpoint. Hyperkalemia - resolved - 5.6 on admission - Once dose Kayexalate given Elevated T. Bili - resolved - 0.5 -Continue to Monitor Transaminitis - resolved - Continue to Monitor History of HTN - Resumed home medications: Norvasc 5mg PO daily, Cozaar 100mg PO daily History of HLD - Continue with home medication (lipitor not on formulary): Crestor 5mg PO QHS History of DM - Accuchecks - HGA1C: 7.1 (09/2017) - Carb Consistent Diet - Held home medication: Metformin - ISS- moderate History of Hypothyroidism - TSH 2.92; Free T4 1.49 - Continue with home medication: Synthroid 50mcg PO daily History Breast Cancer Prophylactic Measures - GI PPX: Protonix 40mg PO daily - DVT PPX: SCDs, Eliquis 2.5mg po bid - Remeron 15mg HS - PT eval and treat - Isolation - Palliative Care Consult --> help appreciated - Case Management --> help appreciated: approved at [place] Case discussed with Dr. Venkata Rutledge PGY-1
[2017-10-27] MEDS: Simethicone 80 mg Chewtab PO SCH ×3 (09:44→21:33)
[2017-10-27] MEDS: Pantoprazole 40 mg EC Tab PO SCH ×2 (09:44→21:33)
[2017-10-27] MEDS: Saccharomyces Boulardi 250 mg Cap NG SCH ×2 (09:45→19:32)
[2017-10-27] MEDS: Metoprolol Succinate 25 mg XL Tab PO SCH (10:47)
--- NOTE | 2017-10-27 15:33 | CARD ---
APPROVED REPORT EKG Measurement Heart [id number] <Conclusion> Atrial fibrillation with premature ventricular or aberrantly conducted complexes Left bundle branch block Abnormal ECG
--- NOTE | 2017-10-27 15:35 | CARD ---
APPROVED REPORT EKG Measurement Heart [id number] <Conclusion> Normal sinus rhythm Left bundle branch block Abnormal ECG
[2017-10-27] MEDS ORDERED: Iohexol 240 (50 ml) PO ONE ×2 (16:15→18:15)
[2017-10-27] MEDS ORDERED: Iohexol 350mg/ml 100 ML ONE (17:41)
[2017-10-27] MEDS: Vancomycin 1 gm/NS 200 ml 1 GM/200 ML BAG IVPB SCH (18:26)
--- NOTE | 2017-10-27 18:55 | CP.PCM.PN ---
Subjective - Date & Time of Evaluation Date of Evaluation: 10/27/17 Time of Evaluation: 03:15 - Subjective Subjective: DICTATED Objective - Vital Signs/Intake and Output Vital Signs (last 24 hours): Temp Pulse Resp BP Pulse Ox 99.7 F H 92 H 20 99/61 L 95 10/27/17 15:00 10/27/17 15:00 10/27/17 15:00 10/27/17 15:00 10/27/17 15:00 Intake and Output: 10/27/17 10/27/17 06:59 18:59 Intake Total 1310 530 Output Total 1900 475 Balance -590 55 - Medications Medications: Current Medications Acetaminophen (Tylenol 325mg Tab) 650 mg PO Q6 [facility] Last Admin: 10/27/17 12:02 Dose: 650 mg Albuterol/Ipratropium (Duoneb 3 Mg/0.5 Mg (3 Ml) Ud) 3 ml INH RQ6 [facility] Last Admin: 10/27/17 13:26 Dose: 3 ml Alprazolam (Xanax) 0.25 mg PO TID PRN PRN Reason: Anxiety Stop: 11/02/17 11:09 Last Admin: 10/27/17 09:44 Dose: 0.25 mg Apixaban (Eliquis) 2.5 mg PO BID [facility] Last Admin: 10/27/17 09:45 Dose: 2.5 mg Diltiazem HCl (Cardizem) 60 mg PO Q6 [facility] Last Admin: 10/27/17 11:59 Dose: 60 mg Piperacillin Sod/Tazobactam Sod (Zosyn 3.375 Gm Iv Premix) 3.375 gm in 50 mls @ 100 mls/hr IVPB Q6H [facility] Last Admin: 10/27/17 16:10 Dose: 100 mls/hr Vancomycin/Sodium Chloride (Vancomycin 1 Gm/Ns 200 Ml) 1 gm in 200 mls @ 133.333 mls/hr IVPB Q24H [facility] Last Admin: 10/27/17 18:26 Dose: 133.333 mls/hr Insulin Human Regular (Novolin R) 0 unit SC ACHS [facility] PRN Reason: Protocol Last Admin: 10/27/17 17:19 Dose: Not Given Levothyroxine Sodium (Synthroid) 50 mcg PO DAILY@0630 [facility] Last Admin: 10/27/17 06:02 Dose: 50 mcg Losartan Potassium (Cozaar) 100 mg PO DAILY [facility] Last Admin: 10/27/17 09:44 Dose: 100 mg Metoprolol Succinate (Toprol Xl) 25 mg PO DAILY [facility] Last Admin: 10/27/17 10:47 Dose: 25 mg Mirtazapine (Remeron) 15 mg PO HS [facility] Last Admin: 10/26/17 21:48 Dose: 15 mg Mupirocin (Bactroban Ointment) 0 gm TOP BID [facility] Last Admin: 10/27/17 09:46 Dose: 1 gm Ondansetron HCl (Zofran Inj) 4 mg IVP Q6H PRN PRN Reason: Nausea/Vomiting Last Admin: 10/26/17 11:40 Dose: 4 mg Oseltamivir Phosphate (Tamiflu Cap) 75 mg PO BID [facility] Stop: 10/31/17 12:54 Last Admin: 10/27/17 09:44 Dose: 75 mg Pantoprazole Sodium (Protonix Ec Tab) 40 mg PO Q12H [facility] Last Admin: 10/27/17 09:44 Dose: 40 mg Polyethylene Glycol (Miralax) 17 gm PO BID PRN PRN Reason: Constipation Last Admin: 10/07/17 10:14 Dose: 17 gm Rosuvastatin Calcium (Crestor) 5 mg NG HS [facility] Last Admin: 10/26/17 21:48 Dose: 5 mg Saccharomyces Boulardii (Florastor) 250 mg NG BID [facility] Last Admin: 10/27/17 09:45 Dose: 250 mg Simethicone (Mylicon Chew Tab) 80 mg PO QID [facility] Last Admin: 10/27/17 13:05 Dose: 80 mg Vitamin A (Vitamin A & D Oint Ud Foilpak) 0.5 ea TOP Q4 [facility] Last Admin: 10/27/17 12:00 Dose: 0.5 ea - Labs Labs: 10/27/17 07:13 10/27/17 07:13 PT 14.3 SECONDS (9.7-12.2) H 10/17/17 22:24 INR 1.2 10/17/17 22:24 APTT 27 SECONDS (21-34) 10/17/17 22:24
--- NOTE | 2017-10-27 20:04 | CT ---
EXAM: CT Abdomen and Pelvis With Intravenous Contrast CLINICAL HISTORY: 77 years old, female; Pain; Abdominal pain; Flank; Right upper quadrant (ruq); Additional info: Abdominal pain history of bowel ischemia and afib TECHNIQUE: Axial computed tomography images of the abdomen and pelvis with intravenous contrast. All CT scans at this facility use one or more dose reduction techniques, viz.: automated exposure control; ma/kV adjustment per patient size (including targeted exams where dose is matched to indication; i.e. head); or iterative reconstruction technique. Coronal and sagittal reformatted images were created and reviewed. CONTRAST: 100 mL of OMNIUPAQUE 350 administered intravenously. COMPARISON: CT - ANGIO ABDOMEN PELVIS W/CONT 2017-10-15 22:45 FINDINGS: Limitations: Motion artifact - mild. Lower thorax: Pacemaker leads. Small bilateral pleural effusions. Mild confluent and patchy peripheral airspace disease along lower lobes. ABDOMEN: Liver: Several probable hepatic cysts, largest up to 17.5 cm. Gallbladder and bile ducts: Apparent gallbladder wall thickening and/or fluid. No significant ductal dilation. Pancreas: No ductal dilation. No mass. Spleen: No splenomegaly. Adrenals: No mass. Kidneys and ureters: Mild scarring of right kidney. No hydronephrosis. Stomach and bowel: Postsurgical changes of small bowel. Small amount of fluid about anastomosis, decreased from previous examination. Apparent 2.1 x 1.2 x 2.3 cm fluid collection with faint peripheral enhancement contiguous with small bowel near level of anastomosis (axial image 106). Larger structure with similar configuration noted on previous examination but without significant peripheral enhancement. No definite mural thickening. No obstruction. Appendix: No findings to suggest acute appendicitis. PELVIS: Bladder: Unremarkable. Reproductive: Unremarkable as visualized. ABDOMEN and PELVIS: Intraperitoneal space: Small free fluid within abdomen and pelvis. No free air. Bones/joints: Median sternotomy. Mild degenerative changes of spine. No acute fracture. Soft tissues: Scattered [id number] diffuse within subcutaneous tissues. Vasculature: Extensive atherosclerotic disease. Aneurysmal dilatation of infrarenal aorta, up to 2.7 cm. Lymph nodes: No pathologically enlarged lymph nodes. IMPRESSION: 1. Postsurgical changes of small bowel. Fluid around the anastomosis, decreased from previous examination. Apparent small peripherally enhancing collection near anastomosis, small phlegmon/abscess not excluded. 2. Bilateral pleural effusions with bibasilar atelectasis. Superimposed pneumonia not excluded. 3. Gallbladder wall thickening and/or fluid. Consider ultrasound. 4. Incidental/non-acute findings are described above.
--- NOTE | 2017-10-28 00:41 | PN ---
DATE: SUBJECTIVE: I had stopped seeing the patient as I thought she was clinically stable, but I received a call today from Dr. Hastings, and this patient has been on Diflucan and they wanted to know if they want to continue. She also has some complaints of chest pain and was complaining of shortness of breath. She is still very weak and she has been recovering and she had a fever and right now she had a fever of 102.7. She is now in isolation and she tested positive for flu, influenza A as it is almost epidemic at this time. PHYSICAL EXAMINATION: VITAL SIGNS: She is feeling weak, but T-max is 97.9 right now, blood pressure of 102/61 to last recorded, temperature is 99.7 now, blood pressure of 99/61, respirations are 20, and pulse is 92. GENERAL: She is awake, alert. HEENT: Head is atraumatic, normocephalic. NECK: Supple. LUNGS: Clear at this time. HEART: S1 and S2 are regular. No murmurs are appreciated at this time. ABDOMEN: Soft, nontender. No guarding. No rigidity present. EXTREMITIES: Have no edema, and she is moving all extremities at this time, I think. ASSESSMENT AND PLAN: She was started on vancomycin, Cipro, Zosyn, as well as on Tamiflu. Right now, her white count is 6.3, hemoglobin 8.2, her BUN is 13, creatinine is 1.0. Flu swab is positive. She also has proBNP at 3920 and [facility] is following, and her last chest x-ray which was yesterday shows no active disease. At this time, she is the one who had surgery for ischemic bowel in this admission. I will continue albuterol. I will continue Synthroid and Cozaar. She is on Tamiflu 75 mg p.o. b.i.d. and she was started on Zosyn and vancomycin x-ray is negative and her white count has returned to normal. We may just treat her for flu, but we will keep the antibiotics for now and reevaluate again. Reji Lawson MD [facility] # [phone]
[2017-10-28] MEDS: Vitamins A & D Oint UD Foilpak TOP SCH ×7 (01:05→20:36)
[2017-10-28] MEDS: Albuterol-Ipratrop 3 mg / 0.5 (3 ml) UD INH SCH ×4 (01:38→19:24)
[2017-10-28] MEDS: Piperacill/Tazo 3.375gm in Dex 3.375 GM/50 ML BAG IVPB SCH ×4 (04:31→21:55)
[2017-10-28 06:34] LABS: BASO % 0.6 % (0.0-2.0); EOS # 0.3 K/uL (0.0-0.7); EOS % 5.1 % (0.0-4.0); HEMOGLOBIN 8.8 g/dL (11.0-16.0); LYMPH # 1.1 K/uL (1.0-4.3); LYMPH % 20.3 % (20.0-40.0); MEAN CELL VOLUME 89.4 fL (81.0-99.0); MEAN CORPUSCULAR HEMOGLOBIN 29.3 pg (27.0-31.0); MEAN CORPUSCULAR HGB CONC 32.7 g/dL (33.0-37.0); MEAN PLATELET VOLUME 8.5 fL (7.2-11.7); MONO # 1.1 K/uL (0.0-0.8); MONO % 20.1 % (0.0-10.0); NEUT # 2.9 K/uL (1.8-7.0); NEUT % 53.9 % (50.0-75.0); NRBC % 0.1 % (0.0-2.0); PLATELET COUNT 335 K/uL (130-400); RBC 3.02 Mil/uL (3.80-5.20); RED CELL DISTRIBUTION WIDTH 16.1 % (11.5-14.5); WHITE BLOOD COUNT 5.3 K/uL (4.8-10.8)
[2017-10-28] MEDS: Levothyroxine 50 MCG TAB PO SCH (06:36)
--- NOTE | 2017-10-28 07:21 | CP.PCM.PN ---
Subjective - Date & Time of Evaluation Date of Evaluation: 10/28/17 Time of Evaluation: 07:19 - Subjective Subjective: Cardiology progress note Patient seen and examined at bedside. She states that she is still not feeling well, admits to labored breathing, but denies chest pain. Also admits to fatigue. Physician on - call was notified last night about possible PE noted on CT Abdomen and Pelvis, but patient had too much radiation yesterday. I have ordered a V/Q scan. Objective - Vital Signs/Intake and Output Vital Signs (last 24 hours): Temp Pulse Resp BP Pulse Ox 98.6 F 98 H 20 113/69 95 10/28/17 06:35 10/28/17 04:10 10/28/17 04:10 10/28/17 04:10 10/28/17 04:10 - Medications Medications: Current Medications Acetaminophen (Tylenol 325mg Tab) 650 mg PO Q6 [facility] Last Admin: 10/28/17 06:35 Dose: 650 mg Albuterol/Ipratropium (Duoneb 3 Mg/0.5 Mg (3 Ml) Ud) 3 ml INH RQ6 [facility] Last Admin: 10/28/17 01:38 Dose: 3 ml Alprazolam (Xanax) 0.25 mg PO TID PRN PRN Reason: Anxiety Stop: 11/02/17 11:09 Last Admin: 10/27/17 09:44 Dose: 0.25 mg Apixaban (Eliquis) 2.5 mg PO BID [facility] Last Admin: 10/27/17 20:11 Dose: Not Given Diltiazem HCl (Cardizem) 60 mg PO Q6 [facility] Last Admin: 10/28/17 06:35 Dose: 60 mg Piperacillin Sod/Tazobactam Sod (Zosyn 3.375 Gm Iv Premix) 3.375 gm in 50 mls @ 100 mls/hr IVPB Q6H [facility] Last Admin: 10/28/17 04:31 Dose: 100 mls/hr Vancomycin/Sodium Chloride (Vancomycin 1 Gm/Ns 200 Ml) 1 gm in 200 mls @ 133.333 mls/hr IVPB Q24H [facility] Last Admin: 10/27/17 18:26 Dose: 133.333 mls/hr Insulin Human Regular (Novolin R) 0 unit SC ACHS [facility] PRN Reason: Protocol Last Admin: 10/27/17 21:34 Dose: Not Given Levothyroxine Sodium (Synthroid) 50 mcg PO DAILY@0630 [facility] Last Admin: 10/28/17 06:36 Dose: 50 mcg Losartan Potassium (Cozaar) 100 mg PO DAILY [facility] Last Admin: 10/27/17 09:44 Dose: 100 mg Metoprolol Succinate (Toprol Xl) 25 mg PO DAILY [facility] Last Admin: 10/27/17 10:47 Dose: 25 mg Mirtazapine (Remeron) 15 mg PO HS [facility] Last Admin: 10/27/17 21:34 Dose: 15 mg Mupirocin (Bactroban Ointment) 0 gm TOP BID [facility] Last Admin: 10/27/17 20:10 Dose: 1 gm Ondansetron HCl (Zofran Inj) 4 mg IVP Q6H PRN PRN Reason: Nausea/Vomiting Last Admin: 10/26/17 11:40 Dose: 4 mg Oseltamivir Phosphate (Tamiflu Cap) 75 mg PO BID [facility] Stop: 10/31/17 12:54 Last Admin: 10/27/17 19:33 Dose: 75 mg Pantoprazole Sodium (Protonix Ec Tab) 40 mg PO Q12H [facility] Last Admin: 10/27/17 21:33 Dose: 40 mg Polyethylene Glycol (Miralax) 17 gm PO BID PRN PRN Reason: Constipation Last Admin: 10/07/17 10:14 Dose: 17 gm Rosuvastatin Calcium (Crestor) 5 mg NG HS [facility] Last Admin: 10/27/17 21:33 Dose: 5 mg Saccharomyces Boulardii (Florastor) 250 mg NG BID [facility] Last Admin: 10/27/17 19:32 Dose: 250 mg Simethicone (Mylicon Chew Tab) 80 mg PO QID [facility] Last Admin: 10/27/17 21:33 Dose: 80 mg Vitamin A (Vitamin A & D Oint Ud Foilpak) 0.5 ea TOP Q4 [facility] Last Admin: 10/28/17 04:09 Dose: 0.5 ea - Labs Labs: 10/28/17 06:27 10/27/17 07:13 PT 14.3 SECONDS (9.7-12.2) H 10/17/17 22:24 INR 1.2 10/17/17 22:24 APTT 27 SECONDS (21-34) 10/17/17 22:24 - Additional Findings Additional findings: Physical Exam: Vital Signs as below Const'l: +Patient extubated, oriented x 3, satting well Head/Neck: neck supple, no jvd, trachea midline, carotid midline, no cervical/head mass Eyes: pupils equally reactive to light and accommodation, nonicteric sclera, extraocular intact ENT: auditory acuity grossly intact, throat not congested, no nasal deformity Cardio: +Irregular rhythm; +Scar on chest wall on left and right sides; regular rate, no murmurs rubs gallops, no carotid bruit, normal s1, s2 Pulm: no accessory muscle use, equal normal breath sounds bilaterally, clear to ausculation bilaterally Abd: +Abdominal incision site is clean, dry, intact with alirio; + obesity limiting exam, +slightly diminished bowel sounds in lower quadrants - resolved; soft non tender non-distended, no palpable masses Derm: no rashes, no ulcers, no lesions Extr: no edema, no cyanosis, no calf tenderness, no lesions, no varicosities Neuro: cranial nerves II-XII grossly intact, upper extremity and lower extremity 5/5 muscle strength bilaterally, no loss of sensation in upper extremities, lower extremities bilaterally Assessment and Plan - Assessment and Plan (Free Text) Assessment: Acute Assessments and Plan: 77 year old female with extensive cardiac history presented with chest pain on this admission, ACS ruled out, Cath performed. Patient also had new onset atrial fibrillation which had resolved with diltiazem, amiodarone, and metoprolol, but patient went back into [facility] yesterday, 10/26/17. Patient was taken to the OR for bowel ischemia and had two feet of small bowel resection. Patient had a code blue on 10/17/17 for pulselessness and respiratory distress. Patient was brought to [facility] with Bicarb and Epi. Diminished pulse and dyspnea were likely 2/2 GI bleed, as patient had black, tarry stools for a couple of days. Elimitchell restarted, Dr. Boland has performed EGD - please see findings in his note. Patient then had hypernatremia 2/2 hypovolemia, for which she was given fluids. Finally, patient was also positive for oropharyngeal yeast infection. Patient became influenza a positive on 10/26/17 and has been feeling worse since then. Patient's CT Abd/Pelvis shows possible PE, confirmed Bilateral PE - Changed Eliquis 2.5 BID to Eliquis 5 BID New-Onset Atrial Fibrillation, reoccurred 10/26/17 - Patient is rate controlled - Rate control: Metoprolol 25 - Rhythm management: Diltiazem and Amiodarone * Patient LFT's are fine and no signs of pulmonary fibrosis * TFT's normalized * Monitor LFTs, TFTs, PFT's - Anticoagulation - Eliquis 2.5 BID Acute Influenza infection - Per primary management Blood Loss Anemia 2/2 Acute GI Bleed - Stabilizing - Mgmt per primary, surgery, and GI Dyspnea, likely 2/2 to Blood Loss Anemia - Patient given 2 units of blood 10/18, feels better now hemoglobin is stabilizing - Patient on 2L NC - Rest of management per primary 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 ID on board Dispo: Restarted patient's Eliquis (changed to 5 bid 2/2 PE on 10/28/17), Patient now has flu - management per primary. Hypernatremia, Anemia, resolving. Patient in A-Fib but rate controlled.
--- NOTE | 2017-10-28 07:25 | CP.PCM.PN ---
Subjective - Date & Time of Evaluation Date of Evaluation: 10/28/17 Time of Evaluation: 07:00 - Subjective Subjective: Medicine Progress Note: Patient was seen and examined at bedside in the AM. Patient denies any abdominal or back pain. She states she would like to urinate. She denies chest pain, shortness of breath or palpitations. Objective - Vital Signs/Intake and Output Vital Signs (last 24 hours): Temp Pulse Resp BP Pulse Ox 98.6 F 98 H 20 113/69 95 10/28/17 06:35 10/28/17 04:10 10/28/17 04:10 10/28/17 04:10 10/28/17 04:10 - Medications Medications: Current Medications Acetaminophen (Tylenol 325mg Tab) 650 mg PO Q6 [facility] Last Admin: 10/28/17 06:35 Dose: 650 mg Albuterol/Ipratropium (Duoneb 3 Mg/0.5 Mg (3 Ml) Ud) 3 ml INH RQ6 [facility] Last Admin: 10/28/17 01:38 Dose: 3 ml Alprazolam (Xanax) 0.25 mg PO TID PRN PRN Reason: Anxiety Stop: 11/02/17 11:09 Last Admin: 10/27/17 09:44 Dose: 0.25 mg Apixaban (Eliquis) 2.5 mg PO BID [facility] Last Admin: 10/27/17 20:11 Dose: Not Given Diltiazem HCl (Cardizem) 60 mg PO Q6 [facility] Last Admin: 10/28/17 06:35 Dose: 60 mg Piperacillin Sod/Tazobactam Sod (Zosyn 3.375 Gm Iv Premix) 3.375 gm in 50 mls @ 100 mls/hr IVPB Q6H [facility] Last Admin: 10/28/17 04:31 Dose: 100 mls/hr Vancomycin/Sodium Chloride (Vancomycin 1 Gm/Ns 200 Ml) 1 gm in 200 mls @ 133.333 mls/hr IVPB Q24H [facility] Last Admin: 10/27/17 18:26 Dose: 133.333 mls/hr Insulin Human Regular (Novolin R) 0 unit SC ACHS [facility] PRN Reason: Protocol Last Admin: 10/27/17 21:34 Dose: Not Given Levothyroxine Sodium (Synthroid) 50 mcg PO DAILY@0630 [facility] Last Admin: 10/28/17 06:36 Dose: 50 mcg Losartan Potassium (Cozaar) 100 mg PO DAILY [facility] Last Admin: 10/27/17 09:44 Dose: 100 mg Metoprolol Succinate (Toprol Xl) 25 mg PO DAILY [facility] Last Admin: 10/27/17 10:47 Dose: 25 mg Mirtazapine (Remeron) 15 mg PO HS [facility] Last Admin: 10/27/17 21:34 Dose: 15 mg Mupirocin (Bactroban Ointment) 0 gm TOP BID [facility] Last Admin: 10/27/17 20:10 Dose: 1 gm Ondansetron HCl (Zofran Inj) 4 mg IVP Q6H PRN PRN Reason: Nausea/Vomiting Last Admin: 10/26/17 11:40 Dose: 4 mg Oseltamivir Phosphate (Tamiflu Cap) 75 mg PO BID [facility] Stop: 10/31/17 12:54 Last Admin: 10/27/17 19:33 Dose: 75 mg Pantoprazole Sodium (Protonix Ec Tab) 40 mg PO Q12H [facility] Last Admin: 10/27/17 21:33 Dose: 40 mg Polyethylene Glycol (Miralax) 17 gm PO BID PRN PRN Reason: Constipation Last Admin: 10/07/17 10:14 Dose: 17 gm Rosuvastatin Calcium (Crestor) 5 mg NG HS [facility] Last Admin: 10/27/17 21:33 Dose: 5 mg Saccharomyces Boulardii (Florastor) 250 mg NG BID [facility] Last Admin: 10/27/17 19:32 Dose: 250 mg Simethicone (Mylicon Chew Tab) 80 mg PO QID [facility] Last Admin: 10/27/17 21:33 Dose: 80 mg Vitamin A (Vitamin A & D Oint Ud Foilpak) 0.5 ea TOP Q4 [facility] Last Admin: 10/28/17 04:09 Dose: 0.5 ea - Labs Labs: 10/28/17 06:27 10/27/17 07:13 PT 14.3 SECONDS (9.7-12.2) H 10/17/17 22:24 INR 1.2 10/17/17 22:24 APTT 27 SECONDS (21-34) 10/17/17 22:24 - Constitutional Appears: No Acute Distress - Head Exam Head Exam: NORMAL INSPECTION - Eye Exam Eye Exam: EOMI, Normal appearance - ENT Exam ENT Exam: Mucous Membranes Moist - Respiratory Exam Respiratory Exam: Rales (lower lobes bilateral ), NORMAL BREATHING PATTERN - Cardiovascular Exam Cardiovascular Exam: REGULAR RHYTHM, +S1, +S2, Murmur (systolic murmur ) - GI/Abdominal Exam GI & Abdominal Exam: Soft, Normal Bowel Sounds. absent: Distended, Guarding, Tenderness - Extremities Exam Extremities Exam: Normal Inspection - Neurological Exam Neurological Exam: Alert, Awake, Oriented x3 - Psychiatric Exam Psychiatric exam: Normal Affect, Normal Mood - Skin Skin Exam: Dry, Intact, Normal Color, Warm Additional comments: abdominal wound - clean/dry/intact Assessment and Plan - Assessment and Plan (Free Text) Assessment: PE bilateral lower lobes - Angio Chest PE: Bilateral pulmonary emboli involving the lower lobe pulmonary artery branches. No central pulmonary embolus identified. Small to moderate bilateral pleural effusions and associated consolidations. - Eliquis 2.5mg BID UTI - Urine culture (10/26/17): yeast species - f/u repeat urine culture Tuesday11/01/17 - Fluconazole 100mg q24h (10/28/17-11/03/17) Abdominal Pain - resolved - abdominal/pelvis CT with PO and IV contrast (10/27/17): 1. Postsurgical changes of small bowel. Fluid around anastomosis, decreased from previous examination. Apparent small peripherally enhancing collection near anastomosis, small phlegmon/abscess not excluded. 2. Apparent pulmonary emboli. Consider dedicated CTA when clinically able. 3. Bilateral pleural effusions with bibasilar atelectasis. Superimposed pneumonia not excluded. 4. Gallbladder wall thickening and/or fluid. Consider ultrasound. 5. Incidental/non-acute findings are described above. Community acquired pneumonia - Chest Xray (10/25/17): mild venous congestion; patchy increased markings at the left lung base - one time dose of Lasix 20mg IV 10/26/17 and another dose Lasix 20mg po once - Rapid Influenza A + - blood culture negative - preliminary - procal 2.34 (high) - Monitor I/O - X-ray: no infiltrate seen however spoke with Dr. Hastings and we both agree x- ray does not show improvement from 10/25/17 - Medications: * Zosyn 3.375mg q6h * Cipro 400mg iv q12h * Vancomycin 1g q24h * vanco troph (10/28/17):14.4 * f/u vanco troph 10/29 range to be between 15-20 * Floraster 250mg po bid Influenza A + - Tamiflu 75mg po bid (10/26/17-10/31/17 in the afternoon) - Tylenol 650mg q6 scheduled to prevent patient from having tachycardia - Isolation Urinary Retention - Bladder scan q6h - If greater than 200cc nurse will straight cath - urine culture: yeast species Bowel Ischemia GI Consult: Dr. Boland --> help appreciated - Chronic multiple liver cysts with largest being 16 cm, was seen on 2013 CT imaging however the largest measured 13x12 cm at the time. - Abdominal CT with IV contrast - patient refused studies at this time - Amylase 87, lipase 217 - Lactate: 1.8 - Morphine 1mg q6h PRN for pain - Enema - Stool Occult blood + (10/07/17 and 10/18/17) - Repeat Stool occult blood negative (10/26/17) - Hep panel: Negative Surgery Consult: Dr. Hinton --> help appreciated - Images: * CT abdomen/pelvis with contrast (10/07/17): Small bowel pneumatosis and portal venous gas concerning for bowel ischemia and necrosis. Multiple liver cysts. Nonobstructing calcifications in the left kidney. 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 In addition to the possible partial obstruction, there is prominent wall and fold enhancement of multiple small bowel loops suggesting enteritis. - Procedures * Exploratory Laparotomy, small bowel resection and primary anastomsis preformed 10/08/17 * Endoscopy (10/18/17): Esophageal ulcer, Z-line regular, normal stomach, erythematous duodenopathy, enterostomy, friable mucosa, inflammation and ulceration. - Per GI Dr. Boland the ulcers noted on EGD have a small risk for bleeding. Per Dr. Boland from a GI standpoint it is okay to restart Eliquis. Abdominal Aorta Aneurysm CT abdomen/pelvis with contrast (10/07/17): Small bowel pneumatosis and portal venous gas concerning for bowel ischemia and necrosis. Multiple liver cysts. Nonobstructing calcifications in the left kidney. 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 Inman --> help appreciated Chest Pain secondary to LBBB Cardiology Consult: Dr. Childs --> help appreciated * cardiac catheterization 10/06/17: LAD to SUMMERS is patent, but other graft is gone. There actually is no jump graft RCA is now 50% stenosed - EKGx3: LBBB - JOANNA x3 negative - Lipid panel: Cholesterol 159; LDL 91; HDL 41; Triglycerides 94 - TSH 2.92; Free T4 1.49 - Imaging * CT Chest w/ IV (10/04/17): 1. No evidence of thoracic aortic aneurysm, dissection, or rupture. 2. No acute pulmonary embolism. 3. Hepatic cysts * Chest X-ray: No interval acute cardiopulmonary disease appreciated * ECHO (10/04/17): EF 62%; * Last ECHO 2015 LVEF 63% - Medications * ASA 81mg PO daily * Diltiazem 60 mg PO Q6H * Crestor 5mg PO QHS * Cozaar 100 mg NG daily * Toprol XL 25mg PO daily New Onset Atrial Fibrillation - resolved Cardiology Consult: Dr. Childs --> help appreciated - Toprol XL 25mg PO daily - Diltiazem 60 mg PO Q6H - Eliquis 2.5mg BID CAD s/p CABG (2014) - Had an abnormal stress test 09/2016 Acute Anemia secondary to Melena - resolved - 2 episodes of bright red blood per rectum on 10/15/17. * received 1 unit PRBC 10/15/17 night and 2 more units of PRBC 10/17/17 * H/H stable 9.0/27.1 - Endoscopy (10/18/17): Esophageal ulcer, Z-line regular, normal stomach, erythematous duodenopathy, enterostomy, friable mucosa, inflammation and ulceration, no ulcer--c/w IV PP and monitor H/H - Stool Occult blood + (10/07/17 and 10/18/17) - Repeat Stool occult blood negative (10/26/17) - Continue to Monitor Bands - resolved Infectious Disease (Dr. Lawson) on the case-->help appreciated Code Sepsis 10/07/17 - blood culture (10/18/17): no growth - 5 days - urine culture (10/18/17): no growth - 5 days - MRSA no detected (10/23/17): - Trach Culture (10/18/17: yeast * Diflucan 50mls started 10/23/17 --> discontinued 10/27/17 - Procal (10/18/17) 0.60 Episode of Confusion - per previous notes occurred the night of 10/15/17 - CT head: Prominent streak artifact in the bifrontal regions and posterior fossa limit evaluation. No acute intracranial abnormality. If symptoms persists , consider further evaluation with MRI. Chronic microvascular ischemic change. Mild sinus mucosal disease. - Neuro Consult: Dr. Mazariegos --> help appreciated - EEG: per Dr. Mazariegos's notes: No paroxysmal activities or focal slowing noted. The patient does have a normal EEG. - Per Dr. Mazariegos's note patient is cleared from a neurological standpoint. Hyperkalemia - resolved - 5.6 on admission - Once dose Kayexalate given Elevated T. Bili - resolved - 0.5 -Continue to Monitor Transaminitis - resolved - Continue to Monitor History of HTN - Resumed home medications: Norvasc 5mg PO daily, Cozaar 100mg PO daily History of HLD - Continue with home medication (lipitor not on formulary): Crestor 5mg PO QHS History of DM - Accuchecks - HGA1C: 7.1 (09/2017) - Carb Consistent Diet - Held home medication: Metformin - ISS- moderate History of Hypothyroidism - TSH 2.92; Free T4 1.49 - Continue with home medication: Synthroid 50mcg PO daily History Breast Cancer Prophylactic Measures - GI PPX: Protonix 40mg PO daily - DVT PPX: SCDs, Eliquis 2.5mg po bid - Remeron 15mg HS - PT eval and treat - Isolation - Glucerna Shakes 3x per day - Palliative Care Consult --> help appreciated - Case Management --> help appreciated: approved at [facility] Case discussed with Dr. Venkata Rutledge PGY-1
[2017-10-28 07:58] LABS: ALB/GLOB RATIO 0.7 (1.0-2.1); ALBUMIN 2.1 g/dL (3.5-5.0); ALT/SGPT 21 U/L (9-52); AST/SGOT 25 U/L (14-36); BLOOD UREA NITROGEN 10 mg/dL (7-17); CALCIUM 7.5 mg/dl (8.6-10.4); GFR AFRICAN-AMERICAN > 60; GFR NON-AFRICAN AMERICAN > 60; MAGNESIUM 1.6 mg/dL (1.6-2.3)
[2017-10-28] MEDS ORDERED: Iodixanol 320 MG/ML 100 ML BOTTLE IV ONE (08:11)
[2017-10-28] MEDS: (Novolin R) Insulin Human Regular 100 units/ml vial SC SCH ×4 (08:13→21:48)
[2017-10-28] MEDS: Pantoprazole 40 mg EC Tab PO SCH ×2 (08:20→21:55)
[2017-10-28 08:41] LABS: ANISOCYTOSIS SLIGHT; BASOPHIL 1 % (0-2); EOSINOPHIL 4 % (0-4); HYPOCHROMIC SLIGHT; LYMPHOCYTE 19 % (20-40); MONOCYTE 18 % (0-10); NEUTROPHIL 58 % (50-75); PLATELET ESTIMATE NORMAL (NORMAL); POIKILOCYTOSIS SLIGHT; TOTAL CELLS COUNTED 100
[2017-10-28] MEDS: Saccharomyces Boulardi 250 mg Cap NG SCH ×2 (10:18→17:40)
[2017-10-28] MEDS: Simethicone 80 mg Chewtab PO SCH ×4 (10:19→21:55)
[2017-10-28] MEDS: Metoprolol Succinate 25 mg XL Tab PO SCH (10:21)
--- NOTE | 2017-10-28 11:02 | CT ---
CTA chest PE protocol Indication: Suspected pulmonary emboli on CT abdomen pelvis Technique: Contiguous axial images were obtained through the chest with intravenous contrast enhancement. Sagittal and coronal reconstructions were generated and reviewed. This CT exam was performed using 1 or more of the following dose reduction techniques: Automated exposure control, adjustment of the MAA and/or kV according to patient size, and/or use of iterative reconstruction technique. IV Contrast: Suspected pulmonary emboli on CT abdomen and pelvis Radiation dose (DLP): 555.05 MGy-cm. Comparison: CT abdomen and pelvis with contrast performed 10/27/17 Findings: Visualized portions of the inferior thyroid gland appear unremarkable. The mediastinal and hilar vascular structures appear grossly unremarkable. The heart appears within normal limits of size. Dense atherosclerotic calcifications of the aorta and branches. Right-sided pacemaker. Bilateral pulmonary emboli involving lower lobe branches. No central pulmonary embolus identified. Small to moderate bilateral pleural effusions and associated consolidations. Limited visualized portions of the upper abdomen: Hepatic cysts including large partially imaged cyst demonstrated to measure approximately 17.[address] of the abdomen and pelvis with peripheral calcification. Degenerative changes. Median sternotomy wires. Impression: Bilateral pulmonary emboli involving the lower lobe pulmonary artery branches. No central pulmonary embolus identified. Small to moderate bilateral pleural effusions and associated consolidations. Additional findings as above. Findings discussed with the patient's RN Lilo on 10/28/17 at 10:47 a.m..
[2017-10-28] MEDS ORDERED: Fluconazole IV 200mg/100 ml NS 100 MG in Premixed IV 1 EA IVPB SCH (17:00)
[2017-10-28] MEDS: Vancomycin 1 gm/NS 200 ml 1 GM/200 ML BAG IVPB SCH (17:13)
[2017-10-28] MEDS: Fluconazole IV 100mg/50 ml NS 50 ML IVPB SCH (19:34)
[2017-10-29] MEDS: Vitamins A & D Oint UD Foilpak TOP SCH ×7 (00:35→23:05)
[2017-10-29] MEDS: Albuterol-Ipratrop 3 mg / 0.5 (3 ml) UD INH SCH ×4 (01:30→19:48)
[2017-10-29] MEDS: Piperacill/Tazo 3.375gm in Dex 3.375 GM/50 ML BAG IVPB SCH ×3 (04:38→16:49)
[2017-10-29] MEDS: Levothyroxine 50 MCG TAB PO SCH (05:33)
[2017-10-29 07:05] LABS: ALB/GLOB RATIO 0.7 (1.0-2.1); ALT/SGPT 23 U/L (9-52); AST/SGOT 35 U/L (14-36); BLOOD UREA NITROGEN 8 mg/dL (7-17); CALCIUM 7.4 mg/dl (8.6-10.4); GFR AFRICAN-AMERICAN > 60; GFR NON-AFRICAN AMERICAN > 60; MAGNESIUM 1.7 mg/dL (1.6-2.3)
[2017-10-29] MEDS: (Novolin R) Insulin Human Regular 100 units/ml vial SC SCH ×4 (08:05→23:02)
[2017-10-29 08:56] VITALS: RESP 20
[2017-10-29] MEDS: Metoprolol Succinate 25 mg XL Tab PO SCH (09:53)
[2017-10-29] MEDS: Simethicone 80 mg Chewtab PO SCH ×4 (09:54→23:02)
[2017-10-29] MEDS: Pantoprazole 40 mg EC Tab PO SCH ×2 (09:54→23:02)
[2017-10-29] MEDS: Saccharomyces Boulardi 250 mg Cap NG SCH ×2 (09:54→19:20)
--- NOTE | 2017-10-29 11:19 | CP.PCM.PN ---
Subjective - Date & Time of Evaluation Date of Evaluation: 10/29/17 Time of Evaluation: 11:15 - Subjective Subjective: Patient was seen and examined at 11:30 AM 10/29/17 653 A Also on ROS: NO longer with SOB Cough is now only occasional Abdominal pain has resolved (was located in the RUQ) Moving her bowels but watery this morning (thinks it may be secondary to the Glucerna) Feels tired but feels like this is improving NO chest pain/palpitations NO other complaints upon FULL ROS Also on exam: HEENT: NCA, EOMI, PERRLA, NO pharyngeal erythema/exudte, NO thyromegaly, NO cervical/supraclavicular/submandibular lymphadenopathy Cardio: Systolic Murmur along Left Sternal Border Resp: Mid to Lower Left Lung Field faint inspiratory crackles GI: midline surgical scar with alirio removed shows no signs of dehiscence/ cellulitis, BSx4, Soft, NO HSM, NO guarding/rebound tenderness Skin: no ulcers present on sacrum or any other amelia prominence Neuro: CN II through XII are grossly intact Assessments: 1). Hx Bowel Ischemia (10/08/17: Exploratory laparotomy, small bowel resection and primary anastomosis) Tolerated regular diet and moving bowels Surgery Dr. Hinton 2). Hx Chest Pain, LBBB, CAD, CABG, Pacemaker, Aortic Stenosis, New Onset A-fib Eiliquis 5.0 mg PO 2x/day (Medicine Team was NOT using full dose considering the findings on EGD 10/18/17 as well as history of episodes of large bright red blood per rectum. However, Cardiology Team has increased dose to 5 mg PO 2x/day) Cozaar 100 mg PO 1x/day Metoprolol Succinate 25 mg PO 1x/day Crestor 5 mg PO 1x/day Cardiology Dr. Childs 3). Hx Sepsis Secondary UTI (Klebsiella and Yeast) Repeat Urine Culture 10/18/17 showed NO growth Repeat Urine Culture 10/26/17 showed Yeast specias: Fluconazole 100 mg IV 1x/day through 11/03/17 F/U repeat Urine Culture ordered for 10/31/17 4). Sputum (+) Yeast (10/18/17) Fluconazole 100 mg PO 1x/day and treated for 7 days 5). Bilateral PE CT Angio Chest 10/28/17: Bilateral Pulmonary Emboli involving lower lobe pulmonary artery branches. NO central pulmonary embolus Eliquis 2.5 mg PO 2x/day was ordered but Cardiology has increased to 5 mg PO 2x/ day 6). Influenza A and Likely Hospital Acquired Pneumonia MDR Bilaterally Tamiflu 75 mg PO 2x/day through 10/30/17 Patient was given 1 dose of Lasix 20 mg IV due to findings on Respiratory Exam and Chest X Ray 10/25/17. Repeat Chest X Ray 10/26/17 did not show any improvement on pulmonary vascular congestion findings, therefore we have to assume that there is a component of Pneumonia (considering the Influenza and Fever). Therefore we are covering for Hosptial Acquired Pneumonia with the risk for Multidrug Resistance: Zosyn 3.375 gm IV Q6H (10/26/17) Ciprofloxacin 400 mg IV Q12H (10/26/17 through 10/28/17) Vancomycin 1 susanne IV Q12H (10/26/17) F/U Vancomycin level 30 minutes PRIOR to next 4th dose: 10/31/17 at 4:[address] Lawson 6). Hx Melena/BRBPR Resolved EGD 10/18/17: esophageal ulcer 7 mm nonbleeding, duodenum with superficial ulceration, adherent blood clot in jejunum GI Dr. Boland 7). Hx Constipation Resolved Had diarrhea this morning. Considering long course of antibiotics, stool studies ordered 10/29/17 9). Hx Liver Cysts Evaluated by GI Dr. Boladn NO further workup at this time 10). Hx Breast CA/Lumpectomy 11). Hx HTN Cozaar 100 mg PO 1x/day Metoprolol Succinate 25 mg PO 1x/day Cardizem 60 mg PO Q6H 11). Hx HLD Crestor 5 mg PO 1x/day 12). Hx DM RISS Novolin R ACHS 13). Hx Episode Confusion Resolved 14). Hx Hypernatremia Resolved 15). Low Magnesium Resolved 16). Hx Hypothyroidism Levnothyroxine 50 mcg PO 1x/day 16). Prophylaxis Acetaminophen 650 mg PO Q6H (around the clock for now) Duoneb Q6H Xanax 0.25 mg PO TID PRN Anxiety Mirtazapine 15 mg PO HS Zofran 4 mg IV Q6H PRN N/V Florastor 250 mg PO 2x/day (but not within 2 hours of antibiotic dose) Simethicone 80 mg PO 4x/day Protonix 40 mg PO 1x/day Bertin Hastings D.O. Objective - Vital Signs/Intake and Output Vital Signs (last 24 hours): Temp Pulse Resp BP Pulse Ox 98.6 F 112 H 20 106/67 94 L 10/29/17 08:55 10/29/17 08:55 10/29/17 08:55 10/29/17 08:55 10/29/17 08:55 Intake and Output: 10/29/17 10/29/17 06:59 18:59 Intake Total 410 Balance 410 - Medications Medications: Current Medications Acetaminophen (Tylenol 325mg Tab) 650 mg PO Q6 [facility] Last Admin: 10/29/17 05:32 Dose: Not Given Albuterol/Ipratropium (Duoneb 3 Mg/0.5 Mg (3 Ml) Ud) 3 ml INH RQ6 [facility] Last Admin: 10/29/17 07:20 Dose: 3 ml Alprazolam (Xanax) 0.25 mg PO TID PRN PRN Reason: Anxiety Stop: 11/02/17 11:09 Last Admin: 10/27/17 09:44 Dose: 0.25 mg Apixaban (Eliquis) 5 mg PO BID TIM Diltiazem HCl (Cardizem) 60 mg PO Q6 [facility] Last Admin: 10/29/17 05:33 Dose: 60 mg Piperacillin Sod/Tazobactam Sod (Zosyn 3.375 Gm Iv Premix) 3.375 gm in 50 mls @ 100 mls/hr IVPB Q6H [facility] Last Admin: 10/29/17 10:00 Dose: 100 mls/hr Vancomycin/Sodium Chloride (Vancomycin 1 Gm/Ns 200 Ml) 1 gm in 200 mls @ 133.333 mls/hr IVPB Q24H [facility] Last Admin: 10/28/17 17:13 Dose: 133.333 mls/hr Fluconazole (Diflucan Iv 100 Mg/50 Ml Ns) 50 mls @ 100 mls/hr IVPB Q24H [facility] Stop: 11/03/17 18:29 Last Admin: 10/28/17 19:34 Dose: 100 mls/hr Insulin Human Regular (Novolin R) 0 unit SC ACHS TIM PRN Reason: Protocol Last Admin: 10/29/17 08:05 Dose: Not Given Levothyroxine Sodium (Synthroid) 50 mcg PO DAILY@0630 [facility] Last Admin: 10/29/17 05:33 Dose: 50 mcg Losartan Potassium (Cozaar) 100 mg PO DAILY [facility] Last Admin: 10/29/17 09:53 Dose: 100 mg Metoprolol Succinate (Toprol Xl) 25 mg PO DAILY [facility] Last Admin: 10/29/17 09:53 Dose: 25 mg Mirtazapine (Remeron) 15 mg PO HS [facility] Last Admin: 10/28/17 21:55 Dose: 15 mg Mupirocin (Bactroban Ointment) 0 gm TOP BID [facility] Last Admin: 10/29/17 09:53 Dose: 1 gm Ondansetron HCl (Zofran Inj) 4 mg IVP Q6H PRN PRN Reason: Nausea/Vomiting Last Admin: 10/26/17 11:40 Dose: 4 mg Oseltamivir Phosphate (Tamiflu Cap) 75 mg PO BID [facility] Stop: 10/31/17 12:54 Last Admin: 10/29/17 09:54 Dose: 75 mg Pantoprazole Sodium (Protonix Ec Tab) 40 mg PO Q12H [facility] Last Admin: 10/29/17 09:54 Dose: 40 mg Polyethylene Glycol (Miralax) 17 gm PO BID PRN PRN Reason: Constipation Last Admin: 10/07/17 10:14 Dose: 17 gm Rosuvastatin Calcium (Crestor) 5 mg NG HS [facility] Last Admin: 10/28/17 21:55 Dose: 5 mg Saccharomyces Boulardii (Florastor) 250 mg NG BID [facility] Last Admin: 10/29/17 09:54 Dose: 250 mg Simethicone (Mylicon Chew Tab) 80 mg PO QID [facility] Last Admin: 10/29/17 09:54 Dose: 80 mg Vitamin A (Vitamin A & D Oint Ud Foilpak) 0.5 ea TOP Q4 [facility] Last Admin: 10/29/17 08:07 Dose: 0.5 ea - Labs Labs: 10/28/17 06:27 10/29/17 06:37 PT 14.3 SECONDS (9.7-12.2) H 10/17/17 22:24 INR 1.2 10/17/17 22:24 APTT 27 SECONDS (21-34) 10/17/17 22:24
--- NOTE | 2017-10-29 12:25 | CARD ---
APPROVED REPORT EKG Measurement Heart [id number] <Conclusion> Normal sinus rhythm with sinus arrhythmia Inferior infarct, age undetermined T wave abnormality, consider anterolateral ischemia Abnormal ECG
[2017-10-29] MEDS: Fluconazole IV 100mg/50 ml NS 50 ML IVPB SCH (17:40)
[2017-10-29] MEDS: Vancomycin 1 gm/NS 200 ml 1 GM/200 ML BAG IVPB SCH (19:27)
[2017-10-29] MEDS: Piperacillin/Tazobact 3.375 GM in Sodium Chloride 0.9% 100 ML IVPB SCH (23:06)
[2017-10-30] MEDS: Vitamins A & D Oint UD Foilpak TOP SCH ×7 (00:38→19:55)
[2017-10-30] MEDS: Piperacillin/Tazobact 3.375 GM in Sodium Chloride 0.9% 100 ML IVPB SCH ×4 (05:00→21:34)
[2017-10-30] MEDS: Levothyroxine 50 MCG TAB PO SCH (05:43)
[2017-10-30 07:40] LABS: ALB/GLOB RATIO 0.7 (1.0-2.1); ALBUMIN 2.2 g/dL (3.5-5.0); ALT/SGPT 24 U/L (9-52); AST/SGOT 42 U/L (14-36); BLOOD UREA NITROGEN 8 mg/dL (7-17); CALCIUM 7.8 mg/dl (8.6-10.4); GFR AFRICAN-AMERICAN > 60; GFR NON-AFRICAN AMERICAN > 60; MAGNESIUM 1.7 mg/dL (1.6-2.3)
[2017-10-30] MEDS: (Novolin R) Insulin Human Regular 100 units/ml vial SC SCH ×4 (07:45→21:53)
[2017-10-30] MEDS: Albuterol-Ipratrop 3 mg / 0.5 (3 ml) UD INH SCH ×3 (08:05→19:08)
[2017-10-30] MEDS: Saccharomyces Boulardi 250 mg Cap NG SCH ×2 (09:47→17:40)
[2017-10-30] MEDS: Pantoprazole 40 mg EC Tab PO SCH ×2 (09:47→20:48)
[2017-10-30] MEDS: Simethicone 80 mg Chewtab PO SCH ×4 (09:47→21:34)
[2017-10-30] MEDS: Metoprolol Succinate 25 mg XL Tab PO SCH (09:49)
--- NOTE | 2017-10-30 14:42 | CP.PCM.PN ---
Subjective - Date & Time of Evaluation Date of Evaluation: 10/30/17 Time of Evaluation: 14:15 - Subjective Subjective: Patient was seen and examined at 2:15 PM 10/30/17 550 A Also on ROS: (+) Palpitations ("like anxiety") NO SOB Cough is only occasional Abdominal pain has resolved (was located in the RUQ) Moving her bowels and earlier today it was well formed with NO gross blood/ black stools Feels tired but feels like this is improving and is looking forward to moving out of respiratory isolation so that she can start physical therapy and move around NO chest pain/palpitations NO other complaints upon FULL ROS Also on exam: HEENT: NCA, EOMI, PERRLA, NO pharyngeal erythema/exudte, NO thyromegaly, NO cervical/supraclavicular/submandibular lymphadenopathy Cardio: Systolic Murmur along Left Sternal Border Resp: Mid to Lower Left Lung Field faint inspiratory crackles GI: midline surgical scar with alirio removed shows no signs of dehiscence/ cellulitis, BSx4, Soft, NO HSM, NO guarding/rebound tenderness Skin: no ulcers present on sacrum or any other amelia prominence Neuro: CN II through XII are grossly intact Assessments: 1). Hx Bowel Ischemia (10/08/17: Exploratory laparotomy, small bowel resection and primary anastomosis) Tolerated regular diet and moving bowels Surgery Dr. Hinton 2). Hx Chest Pain, LBBB, CAD, CABG, Pacemaker, Aortic Stenosis, New Onset A-fib Eiliquis 5.0 mg PO 2x/day (Medicine Team was NOT using full dose considering the findings on EGD 10/18/17 as well as history of episodes of large bright red blood per rectum. However, Cardiology Team has increased dose to 5 mg PO 2x/day) Cardizem 60 mg PO Q6H Cozaar 100 mg PO 1x/day Metoprolol Succinate 25 mg PO 1x/day Crestor 5 mg PO 1x/day Cardiology Dr. Childs 3). Hx Sepsis Secondary UTI (Klebsiella and Yeast) Repeat Urine Culture 10/18/17 showed NO growth Repeat Urine Culture 10/26/17 showed Yeast specias: Fluconazole 100 mg IV 1x/day through 11/03/17 F/U repeat Urine Culture ordered for 10/31/17 4). Sputum (+) Yeast (10/18/17) Fluconazole 100 mg PO 1x/day and treated for 7 days 5). Bilateral PE CT Angio Chest 10/28/17: Bilateral Pulmonary Emboli involving lower lobe pulmonary artery branches. NO central pulmonary embolus Eliquis 2.5 mg PO 2x/day was ordered but Cardiology has increased to 5 mg PO 2x/ day 6). Influenza A and Likely Hospital Acquired Pneumonia MDR Bilaterally Tamiflu 75 mg PO 2x/day through 10/31/17 Patient was given 1 dose of Lasix 20 mg IV due to findings on Respiratory Exam and Chest X Ray 10/25/17. Repeat Chest X Ray 10/26/17 did not show any improvement on pulmonary vascular congestion findings, therefore we have to assume that there is a component of Pneumonia (considering the Influenza and Fever). Therefore we are covering for Hosptial Acquired Pneumonia with the risk for Multidrug Resistance: Zosyn 3.375 gm IV Q6H (10/26/17) Ciprofloxacin 400 mg IV Q12H (10/26/17) Vancomycin 1 susanne IV Q12H (10/26/17) F/U Vancomycin level 30 minutes PRIOR to next 4th dose: 10/31/17 at 4:30 PM Repeat Blood Culture 10/26/17 is negative to date ID Dr. Lawson 6). Hx Melena/BRBPR Resolved EGD 10/18/17: esophageal ulcer 7 mm nonbleeding, duodenum with superficial ulceration, adherent blood clot in jejunum GI Dr. Boland 7). Hx Constipation Resolved Had diarrhea morning of 10/29/17 but this has resolved as of 10/30/17. Considering long course of antibiotics, follow up stool studies ordered 10/29/17 9). Hx Liver Cysts Evaluated by GI Dr. Boland NO further workup at this time 10). Hx Breast CA/Lumpectomy 11). Hx HTN Cozaar 100 mg PO 1x/day Metoprolol Succinate 25 mg PO 1x/day Cardizem 60 mg PO Q6H 11). Hx HLD Crestor 5 mg PO 1x/day 12). Hx DM RISS Novolin R ACHS 13). Hx Episode Confusion Resolved 14). Hx Hypernatremia Resolved 15). Low Magnesium Resolved 16). Hx Hypothyroidism Levnothyroxine 50 mcg PO 1x/day 16). Prophylaxis Acetaminophen 650 mg PO Q6H PRN fever (was on around the clock since Flu diagnosis but changed over to PRN on 10/30/17) Duoneb Q6H Xanax 0.25 mg PO TID PRN Anxiety Mirtazapine 15 mg PO HS Zofran 4 mg IV Q6H PRN N/V Florastor 250 mg PO 2x/day (but not within 2 hours of antibiotic dose) Simethicone 80 mg PO 4x/day Protonix 40 mg PO 1x/day Medicine Team: After last dose of Tamiflu on Tuesday10/31/17 please discontinue respiratory isolation and speak with PT to see patient and start physical therapy. Bertin Hastings D.O. Objective - Vital Signs/Intake and Output Vital Signs (last 24 hours): Temp Pulse Resp BP Pulse Ox 98.1 F 78 20 108/70 98 10/30/17 11:52 10/30/17 11:52 10/30/17 11:52 10/30/17 11:52 10/30/17 11:52 Intake and Output: 10/30/17 10/30/17 06:59 18:59 Intake Total 200 Balance 200 - Medications Medications: Current Medications Acetaminophen (Tylenol 325mg Tab) 650 mg PO Q6 [facility] Last Admin: 10/30/17 13:22 Dose: 650 mg Albuterol/Ipratropium (Duoneb 3 Mg/0.5 Mg (3 Ml) Ud) 3 ml INH RQ6 [facility] Last Admin: 10/30/17 14:15 Dose: 3 ml Alprazolam (Xanax) 0.25 mg PO TID PRN PRN Reason: Anxiety Stop: 11/02/17 11:09 Last Admin: 10/27/17 09:44 Dose: 0.25 mg Apixaban (Eliquis) 5 mg PO BID [facility] Last Admin: 10/30/17 09:47 Dose: 5 mg Diltiazem HCl (Cardizem) 60 mg PO Q6 [facility] Last Admin: 10/30/17 13:23 Dose: 60 mg Vancomycin/Sodium Chloride (Vancomycin 1 Gm/Ns 200 Ml) 1 gm in 200 mls @ 133.333 mls/hr IVPB Q24H [facility] Last Admin: 10/29/17 19:27 Dose: 133.333 mls/hr Fluconazole (Diflucan Iv 100 Mg/50 Ml Ns) 50 mls @ 100 mls/hr IVPB Q24H [facility] Stop: 11/03/17 18:29 Last Admin: 10/29/17 17:40 Dose: 100 mls/hr Piperacillin Sod/Tazobactam (Sod 3.375 gm/ Sodium Chloride) 100 mls @ 200 mls/ hr IVPB Q6H [facility] Last Admin: 10/30/17 09:47 Dose: 200 mls/hr Insulin Human Regular (Novolin R) 0 unit SC ACHS [facility] PRN Reason: Protocol Last Admin: 10/30/17 13:21 Dose: Not Given Levothyroxine Sodium (Synthroid) 50 mcg PO DAILY@0630 [facility] Last Admin: 10/30/17 05:43 Dose: 50 mcg Losartan Potassium (Cozaar) 100 mg PO DAILY [facility] Last Admin: 10/30/17 09:49 Dose: 100 mg Metoprolol Succinate (Toprol Xl) 25 mg PO DAILY [facility] Last Admin: 10/30/17 09:49 Dose: 25 mg Mirtazapine (Remeron) 15 mg PO HS [facility] Last Admin: 10/29/17 23:03 Dose: 15 mg Mupirocin (Bactroban Ointment) 0 gm TOP BID [facility] Last Admin: 10/30/17 12:14 Dose: 1 appl Ondansetron HCl (Zofran Inj) 4 mg IVP Q6H PRN PRN Reason: Nausea/Vomiting Last Admin: 10/26/17 11:40 Dose: 4 mg Oseltamivir Phosphate (Tamiflu Cap) 75 mg PO BID [facility] Stop: 10/31/17 12:54 Last Admin: 10/30/17 09:47 Dose: 75 mg Pantoprazole Sodium (Protonix Ec Tab) 40 mg PO Q12H [facility] Last Admin: 10/30/17 09:47 Dose: 40 mg Polyethylene Glycol (Miralax) 17 gm PO BID PRN PRN Reason: Constipation Last Admin: 10/07/17 10:14 Dose: 17 gm Rosuvastatin Calcium (Crestor) 5 mg NG HS [facility] Last Admin: 10/29/17 23:01 Dose: 5 mg Saccharomyces Boulardii (Florastor) 250 mg NG BID [facility] Last Admin: 10/30/17 09:47 Dose: 250 mg Simethicone (Mylicon Chew Tab) 80 mg PO QID [facility] Last Admin: 10/30/17 13:28 Dose: 80 mg Vitamin A (Vitamin A & D Oint Ud Foilpak) 0.5 ea TOP Q4 TIM Last Admin: 10/30/17 13:28 Dose: 0.5 ea - Labs Labs: 10/28/17 06:27 10/30/17 07:05 PT 14.3 SECONDS (9.7-12.2) H 10/17/17 22:24 INR 1.2 10/17/17 22:24 APTT 27 SECONDS (21-34) 10/17/17 22:24
[2017-10-30] MEDS ORDERED: Ciprofloxacin 400mg/200ml D5W 400 MG/200 ML BAG IVPB SCH ×2 (15:00→15:30)
[2017-10-30] MEDS: Vancomycin 1 gm/NS 200 ml 1 GM/200 ML BAG IVPB SCH (16:25)
[2017-10-30] MEDS: Ciprofloxacin 400mg/200ml D5W 400 MG/200 ML BAG IVPB SCH (17:42)
[2017-10-30] MEDS: Fluconazole IV 100mg/50 ml NS 50 ML IVPB SCH (17:45)
[2017-10-31] MEDS: Vitamins A & D Oint UD Foilpak TOP SCH ×5 (00:31→15:43)
[2017-10-31] MEDS: Albuterol-Ipratrop 3 mg / 0.5 (3 ml) UD INH SCH ×2 (01:45→13:37)
[2017-10-31] MEDS: Piperacillin/Tazobact 3.375 GM in Sodium Chloride 0.9% 100 ML IVPB SCH ×3 (04:21→15:40)
[2017-10-31] MEDS: Levothyroxine 50 MCG TAB PO SCH (05:50)
[2017-10-31] MEDS: Ciprofloxacin 400mg/200ml D5W 400 MG/200 ML BAG IVPB SCH ×2 (05:51→18:29)
[2017-10-31 07:44] LABS: BASO % 0.4 % (0.0-2.0); EOS # 0.4 K/uL (0.0-0.7); EOS % 8.6 % (0.0-4.0); HEMOGLOBIN 8.1 g/dL (11.0-16.0); LYMPH # 1.5 K/uL (1.0-4.3); LYMPH % 35.7 % (20.0-40.0); MEAN CORPUSCULAR HEMOGLOBIN 29.5 pg (27.0-31.0); MEAN CORPUSCULAR HGB CONC 33.1 g/dL (33.0-37.0); MEAN PLATELET VOLUME 8.2 fL (7.2-11.7); MONO # 0.6 K/uL (0.0-0.8); NEUT # 1.7 K/uL (1.8-7.0); NEUT % 41.3 % (50.0-75.0); NRBC % 0.1 % (0.0-2.0); RBC 2.73 Mil/uL (3.80-5.20); RED CELL DISTRIBUTION WIDTH 16.3 % (11.5-14.5); WHITE BLOOD COUNT 4.1 K/uL (4.8-10.8)
[2017-10-31 08:20] LABS: ALB/GLOB RATIO 0.7 (1.0-2.1); ALBUMIN 2.1 g/dL (3.5-5.0); ALT/SGPT 36 U/L (9-52); AST/SGOT 55 U/L (14-36); BLOOD UREA NITROGEN 8 mg/dL (7-17); CALCIUM 7.6 mg/dl (8.6-10.4); GFR AFRICAN-AMERICAN > 60; GFR NON-AFRICAN AMERICAN > 60
[2017-10-31] MEDS: (Novolin R) Insulin Human Regular 100 units/ml vial SC SCH ×3 (08:23→16:35)
[2017-10-31] MEDS: Pantoprazole 40 mg EC Tab PO SCH (08:43)
--- NOTE | 2017-10-31 10:11 | CP.PCM.PN ---
<Logan Hastings - Last Filed: 10/31/17 10:12> Subjective - Date & Time of Evaluation Date of Evaluation: 10/31/17 Time of Evaluation: 09:00 - Subjective Subjective: Subjective: Patient seen and examined at bedside. Resting comfortably in bed. As per nursing records, experienced chest tightness overnight which has since resolved. Patient states flu like symptoms have improved relative to baseline. Offers no new complaints at this time. Requesting physical therapy. Denies fever , chills, chest pain, shortness of breath, abdominal pain, nausea, vomiting, diarrhea, constipation, and urinary symptoms. 12-point review of systems negative except as indicated in the HPI Physical Examination: - Constitutional Appears: NAD - Head Exam Head Exam: NORMAL INSPECTION, NORMOCEPHALIC - Eye Exam Eye Exam: EOMI, Normal appearance, PERRL Pupil Exam: NORMAL ACCOMODATION - ENT Exam ENT Exam: Mucous Membranes Moist - Neck Exam Neck exam: Positive for: Normal Inspection - Respiratory Exam Respiratory Exam: Clear to Auscultation Bilateral, NORMAL BREATHING PATTERN. absent: Decreased Breath Sounds, Wheezes - Cardiovascular Exam Cardiovascular Exam: Systolic Murmur along Left Sternal Border; +S1, +S2 - GI/Abdominal Exam GI & Abdominal Exam: Normal Bowel Sounds, Soft, Tenderness (TTP epigastric region), midline surgical scar with alirio removed shows no signs of dehiscence /cellulitis - Extremities Exam Extremities exam: Positive for: normal inspection, pedal pulses present. Negative for: pedal edema, tenderness - Back Exam Back exam: NORMAL INSPECTION. absent: CVA tenderness (L), CVA tenderness (R) - Neurological Exam Neurological exam: Alert, CN II-XII Intact, Oriented x3, Patient is awake, alert , responds to verbal stimuli, answers questions appropriately, follows commands , and moves extremities past midline - Psychiatric Exam Psychiatric exam: Normal Affect, Normal Mood - Skin Skin Exam: Dry, Intact, Normal Color, Warm Assessment and Plan: Patient is a 77 year old female with a past medical history of HTN, HLD, DM, CAD , CABG, Hx of Breast Cancer (s/p lumpectomy) and hypothyroidism who was admitted for evaluation and treatment of chest pain. Cardiac catherization was performed and ACS was ruled out. Patient developed new onset atrial fibrillation which originally resolved with diltiazem, amiodarone, and metoprolol, but reoccurred on 10/26/17. Patient was found to have bowel ischemia and underwent surgery for small bowel resection. Patient experienced a code blue on 10/17/17 and ROSC was achieved. Patient became influenza a positive on 10/26/17 and has been feeling worse since then. Patient's CT Abd/Pelvis shows possible PE, confirmed Bilateral PE - continue with Eliquis 5 BID - continue to monitor clinically Persistent Atrial Fibrillation - rate controlled with metoprolol 25 and cardizem - Anticoagulation - Eliquis 5 BID - goal INR 2-3 Acute Influenza infection - continue with tamiflu - further management per primary Anemia - Hgbs trended, reviewed, and appreciated, will continue to monitor closely - likely 2/2 Acute GI Bleed - Stabilizing - Mgmt per primary, surgery, and GI Ischemic Bowel s/p 2 ft of small bowel resection - Heparin drip stopped - Management per ICU and Surgery Hypernatremia - likely 2/2 hypodipsia - resolved - Management per primary Oropharyngeal Yeast Infection - Management per primary. ID on board Patient seen, case discussed with, and plan approved by attending physician, Dr. Childs. Objective - Vital Signs/Intake and Output Vital Signs (last 24 hours): Temp Pulse Resp BP Pulse Ox 98.2 F 89 20 118/68 96 10/31/17 07:19 10/31/17 07:19 10/31/17 07:19 10/31/17 07:19 10/31/17 07:19 Intake and Output: 10/31/17 10/31/17 06:59 18:59 Intake Total 890 Balance 890 - Medications Medications: Current Medications Acetaminophen (Tylenol 325mg Tab) 650 mg PO Q6 PRN PRN Reason: Fever >100.4 F Albuterol/Ipratropium (Duoneb 3 Mg/0.5 Mg (3 Ml) Ud) 3 ml INH RQ6 TIM Last Admin: 10/31/17 01:45 Dose: 3 ml Alprazolam (Xanax) 0.25 mg PO TID PRN PRN Reason: Anxiety Stop: 11/02/17 11:09 Last Admin: 10/27/17 09:44 Dose: 0.25 mg Apixaban (Eliquis) 5 mg PO BID TIM Last Admin: 10/30/17 17:40 Dose: 5 mg Diltiazem HCl (Cardizem) 60 mg PO Q6 [facility] Last Admin: 10/31/17 05:50 Dose: 60 mg Vancomycin/Sodium Chloride (Vancomycin 1 Gm/Ns 200 Ml) 1 gm in 200 mls @ 133.333 mls/hr IVPB Q24H [facility] Last Admin: 10/30/17 16:25 Dose: 133.333 mls/hr Fluconazole (Diflucan Iv 100 Mg/50 Ml Ns) 50 mls @ 100 mls/hr IVPB Q24H [facility] Stop: 11/03/17 18:29 Last Admin: 10/30/17 17:45 Dose: 100 mls/hr Piperacillin Sod/Tazobactam (Sod 3.375 gm/ Sodium Chloride) 100 mls @ 200 mls/ hr IVPB Q6H [facility] Last Admin: 10/31/17 04:21 Dose: 200 mls/hr Ciprofloxacin (Cipro 400mg/200ml Dsw) 400 mg in 200 mls @ 133 mls/hr IVPB Q12H [facility] Last Admin: 10/31/17 05:51 Dose: 133 mls/hr Insulin Human Regular (Novolin R) 0 unit SC ACHS [facility] PRN Reason: Protocol Last Admin: 10/31/17 08:23 Dose: Not Given Levothyroxine Sodium (Synthroid) 50 mcg PO DAILY@0630 [facility] Last Admin: 10/31/17 05:50 Dose: 50 mcg Losartan Potassium (Cozaar) 100 mg PO DAILY [facility] Last Admin: 10/30/17 09:49 Dose: 100 mg Metoprolol Succinate (Toprol Xl) 25 mg PO DAILY [facility] Last Admin: 10/30/17 09:49 Dose: 25 mg Mirtazapine (Remeron) 15 mg PO HS [facility] Last Admin: 10/30/17 21:34 Dose: 15 mg Mupirocin (Bactroban Ointment) 0 gm TOP BID [facility] Last Admin: 10/30/17 22:19 Dose: 1 appl Ondansetron HCl (Zofran Inj) 4 mg IVP Q6H PRN PRN Reason: Nausea/Vomiting Last Admin: 10/26/17 11:40 Dose: 4 mg Oseltamivir Phosphate (Tamiflu Cap) 75 mg PO BID [facility] Stop: 10/31/17 12:54 Last Admin: 10/30/17 17:40 Dose: 75 mg Pantoprazole Sodium (Protonix Ec Tab) 40 mg PO Q12H [facility] Last Admin: 10/31/17 08:43 Dose: 40 mg Polyethylene Glycol (Miralax) 17 gm PO BID PRN PRN Reason: Constipation Last Admin: 10/07/17 10:14 Dose: 17 gm Rosuvastatin Calcium (Crestor) 5 mg NG HS [facility] Last Admin: 10/30/17 21:34 Dose: 5 mg Saccharomyces Boulardii (Florastor) 250 mg NG BID [facility] Last Admin: 10/30/17 17:40 Dose: 250 mg Simethicone (Mylicon Chew Tab) 80 mg PO QID [facility] Last Admin: 10/30/17 21:34 Dose: 80 mg Vitamin A (Vitamin A & D Oint Ud Foilpak) 0.5 ea TOP Q4 [facility] Last Admin: 10/31/17 08:43 Dose: 0.5 ea - Labs Labs: 10/31/17 07:35 10/31/17 07:35 PT 14.3 SECONDS (9.7-12.2) H 10/17/17 22:24 INR 1.2 10/17/17 22:24 APTT 27 SECONDS (21-34) 10/17/17 22:24 <Babak Childs - Last Filed: 10/31/17 11:56> Objective - Vital Signs/Intake and Output Vital Signs (last 24 hours): Temp Pulse Resp BP Pulse Ox 98.2 F 89 20 118/68 96 10/31/17 07:19 10/31/17 07:19 10/31/17 07:19 10/31/17 07:19 10/31/17 07:19 Intake and Output: 10/31/17 10/31/17 06:59 18:59 Intake Total 890 Balance 890 - Medications Medications: Current Medications Acetaminophen (Tylenol 325mg Tab) 650 mg PO Q6 PRN PRN Reason: Fever >100.4 F Alprazolam (Xanax) 0.25 mg PO TID PRN PRN Reason: Anxiety Stop: 11/02/17 11:09 Last Admin: 10/27/17 09:44 Dose: 0.25 mg Apixaban (Eliquis) 5 mg PO BID [facility] Last Admin: 10/31/17 10:33 Dose: 5 mg Diltiazem HCl (Cardizem) 60 mg PO Q6 [facility] Last Admin: 10/31/17 11:51 Dose: 60 mg Vancomycin/Sodium Chloride (Vancomycin 1 Gm/Ns 200 Ml) 1 gm in 200 mls @ 133.333 mls/hr IVPB Q24H [facility] Last Admin: 10/30/17 16:25 Dose: 133.333 mls/hr Fluconazole (Diflucan Iv 100 Mg/50 Ml Ns) 50 mls @ 100 mls/hr IVPB Q24H [facility] Stop: 11/03/17 18:29 Last Admin: 10/30/17 17:45 Dose: 100 mls/hr Piperacillin Sod/Tazobactam (Sod 3.375 gm/ Sodium Chloride) 100 mls @ 200 mls/ hr IVPB Q6H [facility] Last Admin: 10/31/17 10:30 Dose: 200 mls/hr Ciprofloxacin (Cipro 400mg/200ml Dsw) 400 mg in 200 mls @ 133 mls/hr IVPB Q12H [facility] Last Admin: 10/31/17 05:51 Dose: 133 mls/hr Insulin Human Regular (Novolin R) 0 unit SC ACHS [facility] PRN Reason: Protocol Last Admin: 10/31/17 11:43 Dose: Not Given Levothyroxine Sodium (Synthroid) 50 mcg PO DAILY@0630 [facility] Last Admin: 10/31/17 05:50 Dose: 50 mcg Losartan Potassium (Cozaar) 100 mg PO DAILY [facility] Last Admin: 10/31/17 10:33 Dose: 100 mg Metoprolol Succinate (Toprol Xl) 25 mg PO DAILY [facility] Last Admin: 10/31/17 10:34 Dose: Not Given Mirtazapine (Remeron) 15 mg PO HS [facility] Last Admin: 10/30/17 21:34 Dose: 15 mg Mupirocin (Bactroban Ointment) 0 gm TOP BID [facility] Last Admin: 10/31/17 10:34 Dose: 1 appl Ondansetron HCl (Zofran Inj) 4 mg IVP Q6H PRN PRN Reason: Nausea/Vomiting Last Admin: 10/26/17 11:40 Dose: 4 mg Oseltamivir Phosphate (Tamiflu Cap) 75 mg PO BID [facility] Stop: 10/31/17 12:54 Last Admin: 10/31/17 10:34 Dose: 75 mg Pantoprazole Sodium (Protonix Ec Tab) 40 mg PO Q12H [facility] Last Admin: 10/31/17 08:43 Dose: 40 mg Polyethylene Glycol (Miralax) 17 gm PO BID PRN PRN Reason: Constipation Last Admin: 10/07/17 10:14 Dose: 17 gm Rosuvastatin Calcium (Crestor) 5 mg NG HS [facility] Last Admin: 10/30/17 21:34 Dose: 5 mg Saccharomyces Boulardii (Florastor) 250 mg NG BID [facility] Last Admin: 10/31/17 10:34 Dose: 250 mg Simethicone (Mylicon Chew Tab) 80 mg PO QID [facility] Last Admin: 10/31/17 10:33 Dose: 80 mg Vitamin A (Vitamin A & D Oint Ud Foilpak) 0.5 ea TOP Q4 [facility] Last Admin: 10/31/17 11:51 Dose: 0.5 ea - Labs Labs: 10/31/17 07:35 10/31/17 07:35 PT 14.3 SECONDS (9.7-12.2) H 10/17/17 22:24 INR 1.2 10/17/17 22:24 APTT 27 SECONDS (21-34) 10/17/17 22:24 Assessment and Plan (1) Afib Status: Acute (2) Chest discomfort Status: Acute (3) Chest pain Status: Acute (4) Hypertension Status: Acute (5) CAD (coronary artery disease) Status: Acute (6) Hx of CABG Status: Acute (7) Ischemic necrosis of small bowel Status: Acute (8) Respiratory failure with hypoxia Status: Resolved Attending/Attestation - Attestation I have personally seen and examined this patient.: Yes I have fully participated in the care of the patient.: Yes I have reviewed all pertinent clinical information, including history, physical exam and plan: Yes Notes (Text): 10/31/17 11:[address] Flu sx improving on asa and full dose eliquis Hgb trending down GI iinput needed cont BB and CCB
[2017-10-31] MEDS: Simethicone 80 mg Chewtab PO SCH ×3 (10:33→17:24)
[2017-10-31] MEDS: Saccharomyces Boulardi 250 mg Cap NG SCH ×2 (10:34→17:33)
[2017-10-31] MEDS: Metoprolol Succinate 25 mg XL Tab PO SCH (10:34)
[2017-10-31 12:09] VITALS: O2SAT 95
[2017-10-31] MEDS ORDERED: Albuterol-Ipratrop 3 mg / 0.5 (3 ml) UD INH ONE (12:57)
--- NOTE | 2017-10-31 12:59 | CP.PCM.PN ---
<Ita Anders - Last Filed: 10/31/17 12:59> Objective - Vital Signs/Intake and Output Vital Signs (last 24 hours): Temp Pulse Resp BP Pulse Ox 98.2 F 97 H 20 144/76 95 10/31/17 07:19 10/31/17 11:52 10/31/17 07:19 10/31/17 11:52 10/31/17 10:29 Intake and Output: 10/31/17 10/31/17 06:59 18:59 Intake Total 890 Balance 890 - Medications Medications: Current Medications Acetaminophen (Tylenol 325mg Tab) 650 mg PO Q6 PRN PRN Reason: Fever >100.4 F Alprazolam (Xanax) 0.25 mg PO TID PRN PRN Reason: Anxiety Stop: 11/02/17 11:09 Last Admin: 10/27/17 09:44 Dose: 0.25 mg Apixaban (Eliquis) 5 mg PO BID [facility] Last Admin: 10/31/17 10:33 Dose: 5 mg Diltiazem HCl (Cardizem) 60 mg PO Q6 [facility] Last Admin: 10/31/17 11:51 Dose: 60 mg Vancomycin/Sodium Chloride (Vancomycin 1 Gm/Ns 200 Ml) 1 gm in 200 mls @ 133.333 mls/hr IVPB Q24H [facility] Last Admin: 10/30/17 16:25 Dose: 133.333 mls/hr Fluconazole (Diflucan Iv 100 Mg/50 Ml Ns) 50 mls @ 100 mls/hr IVPB Q24H [facility] Stop: 11/03/17 18:29 Last Admin: 10/30/17 17:45 Dose: 100 mls/hr Piperacillin Sod/Tazobactam (Sod 3.375 gm/ Sodium Chloride) 100 mls @ 200 mls/ hr IVPB Q6H [facility] Last Admin: 10/31/17 10:30 Dose: 200 mls/hr Ciprofloxacin (Cipro 400mg/200ml Dsw) 400 mg in 200 mls @ 133 mls/hr IVPB Q12H [facility] Last Admin: 10/31/17 05:51 Dose: 133 mls/hr Insulin Human Regular (Novolin R) 0 unit SC ACHS [facility] PRN Reason: Protocol Last Admin: 10/31/17 11:43 Dose: Not Given Levothyroxine Sodium (Synthroid) 50 mcg PO DAILY@0630 [facility] Last Admin: 10/31/17 05:50 Dose: 50 mcg Losartan Potassium (Cozaar) 100 mg PO DAILY [facility] Last Admin: 10/31/17 10:33 Dose: 100 mg Metoprolol Succinate (Toprol Xl) 25 mg PO DAILY [facility] Last Admin: 10/31/17 10:34 Dose: Not Given Mirtazapine (Remeron) 15 mg PO HS [facility] Last Admin: 10/30/17 21:34 Dose: 15 mg Mupirocin (Bactroban Ointment) 0 gm TOP BID [facility] Last Admin: 10/31/17 10:34 Dose: 1 appl Ondansetron HCl (Zofran Inj) 4 mg IVP Q6H PRN PRN Reason: Nausea/Vomiting Last Admin: 10/26/17 11:40 Dose: 4 mg Pantoprazole Sodium (Protonix Ec Tab) 40 mg PO Q12H [facility] Last Admin: 10/31/17 08:43 Dose: 40 mg Polyethylene Glycol (Miralax) 17 gm PO BID PRN PRN Reason: Constipation Last Admin: 10/07/17 10:14 Dose: 17 gm Rosuvastatin Calcium (Crestor) 5 mg NG HS [facility] Last Admin: 10/30/17 21:34 Dose: 5 mg Saccharomyces Boulardii (Florastor) 250 mg NG BID [facility] Last Admin: 10/31/17 10:34 Dose: 250 mg Simethicone (Mylicon Chew Tab) 80 mg PO QID [facility] Last Admin: 10/31/17 10:33 Dose: 80 mg Vitamin A (Vitamin A & D Oint Ud Foilpak) 0.5 ea TOP Q4 [facility] Last Admin: 10/31/17 11:51 Dose: 0.5 ea - Labs Labs: 10/31/17 07:35 10/31/17 07:35 PT 14.3 SECONDS (9.7-12.2) H 10/17/17 22:24 INR 1.2 10/17/17 22:24 APTT 27 SECONDS (21-34) 10/17/17 22:24 <Dianne Royal V - Last Filed: 10/31/17 23:56> Subjective - Date & Time of Evaluation Date of Evaluation: 10/31/17 Time of Evaluation: 11:00 - Subjective Subjective: Medical Attending Note: Patient seen and examined this morning. Patient reports she is tired. Patient has not been out of bed. Patient has not had bloody stools. Encourage patient to work with physical therapy. Discussed with Physical TherapistLiz to work with the patient today. Objective - Vital Signs/Intake and Output Vital Signs (last 24 hours): Temp Pulse Resp BP Pulse Ox 9 F L 87 20 132/71 95 10/31/17 15:00 10/31/17 15:00 10/31/17 15:00 10/31/17 15:00 10/31/17 15:00 Intake and Output: 10/31/17 10/31/17 06:59 18:59 Intake Total 890 1030 Balance 890 1030 - Medications Medications: Current Medications Acetaminophen (Tylenol 325mg Tab) 650 mg PO Q6 PRN PRN Reason: Fever >100.4 F Alprazolam (Xanax) 0.25 mg PO TID PRN PRN Reason: Anxiety Stop: 11/02/17 11:09 Last Admin: 10/27/17 09:44 Dose: 0.25 mg Apixaban (Eliquis) 5 mg PO BID [facility] Last Admin: 10/31/17 10:33 Dose: 5 mg Diltiazem HCl (Cardizem) 60 mg PO Q6 [facility] Last Admin: 10/31/17 11:51 Dose: 60 mg Vancomycin/Sodium Chloride (Vancomycin 1 Gm/Ns 200 Ml) 1 gm in 200 mls @ 133.333 mls/hr IVPB Q24H [facility] Last Admin: 10/31/17 16:31 Dose: 133.333 mls/hr Fluconazole (Diflucan Iv 100 Mg/50 Ml Ns) 50 mls @ 100 mls/hr IVPB Q24H [facility] Stop: 11/03/17 18:29 Last Admin: 10/30/17 17:45 Dose: 100 mls/hr Piperacillin Sod/Tazobactam (Sod 3.375 gm/ Sodium Chloride) 100 mls @ 200 mls/ hr IVPB Q6H [facility] Last Admin: 10/31/17 15:40 Dose: 200 mls/hr Ciprofloxacin (Cipro 400mg/200ml Dsw) 400 mg in 200 mls @ 133 mls/hr IVPB Q12H [facility] Last Admin: 10/31/17 05:51 Dose: 133 mls/hr Insulin Human Regular (Novolin R) 0 unit SC ACHS [facility] PRN Reason: Protocol Last Admin: 10/31/17 16:35 Dose: 1 unit Levothyroxine Sodium (Synthroid) 50 mcg PO DAILY@0630 [facility] Last Admin: 10/31/17 05:50 Dose: 50 mcg Losartan Potassium (Cozaar) 100 mg PO DAILY [facility] Last Admin: 10/31/17 10:33 Dose: 100 mg Metoprolol Succinate (Toprol Xl) 25 mg PO DAILY [facility] Last Admin: 10/31/17 10:34 Dose: Not Given Mirtazapine (Remeron) 15 mg PO HS [facility] Last Admin: 10/30/17 21:34 Dose: 15 mg Mupirocin (Bactroban Ointment) 0 gm TOP BID [facility] Last Admin: 10/31/17 10:34 Dose: 1 appl Ondansetron HCl (Zofran Inj) 4 mg IVP Q6H PRN PRN Reason: Nausea/Vomiting Last Admin: 10/26/17 11:40 Dose: 4 mg Pantoprazole Sodium (Protonix Ec Tab) 40 mg PO Q12H [facility] Last Admin: 10/31/17 08:43 Dose: 40 mg Polyethylene Glycol (Miralax) 17 gm PO BID PRN PRN Reason: Constipation Last Admin: 10/07/17 10:14 Dose: 17 gm Rosuvastatin Calcium (Crestor) 5 mg NG HS [facility] Last Admin: 10/30/17 21:34 Dose: 5 mg Saccharomyces Boulardii (Florastor) 250 mg NG BID [facility] Last Admin: 10/31/17 10:34 Dose: 250 mg Simethicone (Mylicon Chew Tab) 80 mg PO QID [facility] Last Admin: 10/31/17 14:02 Dose: 80 mg Vitamin A (Vitamin A & D Oint Ud Foilpak) 0.5 ea TOP Q4 [facility] Last Admin: 10/31/17 15:43 Dose: 0.5 ea - Labs Labs: 10/31/17 07:35 10/31/17 07:35 PT 14.3 SECONDS (9.7-12.2) H 10/17/17 22:24 INR 1.2 10/17/17 22:24 APTT 27 SECONDS (21-34) 10/17/17 22:24 - Constitutional Appears: No Acute Distress, Chronically Ill - Head Exam Head Exam: NORMAL INSPECTION - Eye Exam Eye Exam: EOMI - ENT Exam ENT Exam: Mucous Membranes Moist - Respiratory Exam Respiratory Exam: Rales (bases bibasiar), Wheezes, NORMAL BREATHING PATTERN - Cardiovascular Exam Cardiovascular Exam: REGULAR RHYTHM, +S1, +S2 - GI/Abdominal Exam GI & Abdominal Exam: Soft, Normal Bowel Sounds Additional comments: Central surgical incision, clean, dry intact, healing, no devora No guarding no rebound, BS X4 quadrants - Extremities Exam Extremities Exam: Pedal Edema (improved) - Neurological Exam Neurological Exam: Alert, Awake, Oriented x3 - Psychiatric Exam Psychiatric exam: Normal Affect, Normal Mood - Skin Skin Exam: Dry, Normal Color, Warm Attending/Attestation - Attestation I have personally seen and examined this patient.: Yes I have fully participated in the care of the patient.: Yes I have reviewed all pertinent clinical information, including history, physical exam and plan: Yes Notes (Text): Patient seen, examined and case discussed with day-time resident. Patient seen this morning. Patient reports she is tired, weak, and fatigued. She reports she has not left the bed. Patient placed into upright positioning. Patient does have wheezing on exam. Patient is encouraged to us incentive spirometry. Patient is pending for urine culture and vancomycin trough. Patient has completed Tamiflu today. Discussed with infectious disease, 2 more days of Tamifu, 3 more days of Diflucan, and completed IV abx today. Discussed with surgery, recommend to follow-up in 1-2 weeks for postoperative surveillance. Patient fill need to follow-up with cardiology, Dr Childs or Dr. Loja for RCA lesion about 50% noted during cardiac catherization. Patient is on blood thinner, Eliquis 5mg PO bid for pulmonary embolus and atrial fibrillation. Discussed with son Al Gee ([phone]), to monitor for any bleeding and if any changes including rectal bleeding, pale, weakness to be evaluated immediately. Discussed with patient's PMD, Dr Jimenez in regards to patient's hospitalization and medications upon discharge. Assessment/Plan 1). Hx Bowel Ischemia (10/08/17: Exploratory laparotomy, small bowel resection and primary anastomosis) * Surgery Dr. Hinton on board-->help appreciated * Tolerated regular diet and moving bowels * Surgery Dr. Hinton * Devora removed 10/24/17 * Recommends for rehab [facility] and PT 2). Hx Chest Pain, LBBB, CAD, CABG, Pacemaker, Aortic Stenosis, New Onset A-fib * Cardiology Dr. Childs on board--> help appreciated * Eliquis 5.0 mg PO 2x/day (Medicine Team was NOT using full dose considering the findings on EGD 10/18/17 as well as history of episodes of large bright red blood per rectum. However, Cardiology Team has increased dose to 5 mg PO 2x/day) * Cardizem 60 mg PO Q6H * Cozaar 100 mg PO 1x/day * Metoprolol Succinate 25 mg PO 1x/day * Crestor 5 mg PO 1x/day 3). Hx Sepsis Secondary UTI (Klebsiella and Yeast) * Repeat Urine Culture 10/18/17 showed NO growth * Repeat Urine Culture 10/26/17 showed Yeast species: * Fluconazole 100 mg IV 1x/day through 11/03/17 * F/U repeat Urine Culture ordered for 10/31/17 4). Sputum (+) Yeast (10/18/17) * Fluconazole 100 mg PO 1x/day and treated for 7 days 5). Bilateral PE * CT Angio Chest 10/28/17: Bilateral Pulmonary Emboli involving lower lobe pulmonary artery branches. NO central pulmonary embolus * Eliquis 2.5 mg PO 2x/day was ordered but Cardiology has increased to 5 mg PO 2x/day * Monitor H/H 6). Influenza A and Likely Hospital Acquired Pneumonia MDR Bilaterally * Infectious Disease (Dr. Lawson) on board-->help appreciated * Completed Tamiflu 75 mg PO 2x/day through 10/31/17 * Therefore we are covering for Hosptial Acquired Pneumonia with the risk for Multidrug Resistance: * Zosyn 3.375 gm IV Q6H (10/26/17 active since ) * Ciprofloxacin 400 mg IV Q12H (10/26/17 active since ) * Vancomycin 1 susanne IV Q12H (10/26/17 active since * F/U Vancomycin level 30 minutes PRIOR to next 4th dose: 10/31/17 at 4:30 PM * Repeat Blood Culture 10/26/17 is negative to date 6). Hx Melena/BRBPR * Resolved * EGD 10/18/17: esophageal ulcer 7 mm nonbleeding, duodenum with superficial ulceration, adherent blood clot in jejunum * GI Dr. Boland 7). Hx Constipation * Resolved * C. Dif negative X3 8). Hx Liver Cysts * Evaluated by GI Dr. Boland * NO further workup at this time 9). Hx Breast CA/Lumpectomy 10). Hx HTN * Cozaar 100 mg PO 1x/day * Metoprolol Succinate 25 mg PO 1x/day * Cardizem 60 mg PO Q6H 11). Hx HLD * Crestor 5 mg PO 1x/day 12). Hx DM * RISS Novolin R ACHS 13). Hx Episode Confusion * Resolved 14). Hx Hypernatremia * Resolved 15). Low Magnesium * Resolved 16). Hx Hypothyroidism * Levothyroxine 50 mcg PO 1x/day 16). Prophylaxis * Acetaminophen 650 mg PO Q6H PRN fever (was on around the clock since Flu diagnosis but changed over to PRN on 10/30/17) * Duoneb Q6H * Xanax 0.25 mg PO TID PRN Anxiety * Mirtazapine 15 mg PO HS * Zofran 4 mg IV Q6H PRN N/V * Florastor 250 mg PO 2x/day (but not within 2 hours of antibiotic dose) * Simethicone 80 mg PO 4x/day * Protonix 40 mg PO 1x/day Disposition: Discussed with Liz from Physical Therapy will work with patient to start physical therapy Will follow up with infectious disease regarding final antibiotic regimen for discharge planning
[2017-10-31 16:04] VITALS: BP 132/71; TEMP 9
[2017-10-31] MEDS: Vancomycin 1 gm/NS 200 ml 1 GM/200 ML BAG IVPB SCH (16:31)
[2017-10-31] MEDS: Fluconazole IV 100mg/50 ml NS 50 ML IVPB SCH (17:24)
--- NOTE | 2017-10-31 17:40 | CP.PCM.DIS ---
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 is on Eliqiuis. Monitor H/H (6) Hypertension Status: Chronic Comment: on Cardizem, Toprol XL, Cozaar (7) Ulcer Status: Acute Comment: identified on endoscopy during hospitalization. Refrain from NSAIDS. Patient is on blood thinner for PE and atrial fibrillation. Patient has not had any more bloody stools identified. Follow-up with GI will repeat EGD in 2- 3 months of monitoring for ulcers Hospital Course - Lab Results Lab Results: Micro Results 10/26/17 Unknown Blood-Venous Blood Culture - Final NO GROWTH AFTER 5 DAYS 10/26/17 Unknown Blood-Venous Gram Stain - Final TEST NOT PERFORMED 10/26/17 14:40 Blood-Venous Blood Culture - Final NO GROWTH AFTER 5 DAYS 10/26/17 14:40 Blood-Venous Gram Stain - Final TEST NOT PERFORMED 10/26/17 Unknown Urine,Catheterized Urine Culture - Final Yeast Species 10/23/17 12:29 Naris MRSA Culture - Final MRSA NOT DETECTED 10/18/17 11:30 Blood Blood Culture - Final NO GROWTH AFTER 5 DAYS 10/18/17 11:30 Blood Gram Stain - Final TEST NOT PERFORMED 10/18/17 11:00 Blood Blood Culture - Final NO GROWTH AFTER 5 DAYS 10/18/17 11:00 Blood Gram Stain - Final TEST NOT PERFORMED 10/16/17 18:15 Blood-Venous Blood Culture - Final NO GROWTH AFTER 5 DAYS 10/16/17 18:15 Blood-Venous Gram Stain - Final TEST NOT PERFORMED 10/16/17 18:25 Blood-Venous Blood Culture - Final NO GROWTH AFTER 5 DAYS 10/16/17 18:25 Blood-Venous Gram Stain - Final TEST NOT PERFORMED 10/17/17 Unknown Stool Stool Culture - Final NO SALMONELLA, SHIGELLA OR CAMPYLOBACTER ISOLATED. 10/17/17 Unknown Stool Ova and Parasite Concentrate Exam - Final 10/18/17 13:00 Trachasp Gram Stain - Final 10/18/17 13:00 Trachasp Sputum Culture - Final Yeast Species 10/17/17 10:24 Sputum Gram Stain - Final 10/17/17 10:24 Sputum Sputum Culture - Final Yeast Species 10/18/17 12:08 Urine Urine Culture - Final No Growth (<1,000 CFU/ML) 10/07/17 21:36 Blood-Venous Blood Culture - Final NO GROWTH AFTER 5 DAYS 10/07/17 21:36 Blood-Venous Gram Stain - Final TEST NOT PERFORMED 10/11/17 12:52 Urine,Renee Urine Culture - Final No Growth (<1,000 CFU/ML) 10/06/17 16:45 Blood Blood Culture - Final NO GROWTH AFTER 5 DAYS 10/06/17 16:45 Blood Gram Stain - Final TEST NOT PERFORMED 10/06/17 17:16 Blood Blood Culture - Final NO GROWTH AFTER 5 DAYS 10/06/17 17:16 Blood Gram Stain - Final TEST NOT PERFORMED 10/07/17 12:11 Stool Stool Culture - Final NO SALMONELLA, SHIGELLA OR CAMPYLOBACTER ISOLATED. 10/08/17 Unknown Naris MRSA Culture (Admit) - Final MRSA NOT DETECTED 10/07/17 01:00 Urine Urine Culture - Final Klebsiella Pneumoniae Ssp Pneu 10/07/17 Unknown Stool Ova and Parasite Concentrate Exam - Final Most Recent Lab Values WBC 4.1 K/uL (4.8-10.8) L 10/31/17 07:35 RBC 2.73 Mil/uL (3.80-5.20) L 10/31/17 07:35 Hgb 8.1 g/dL (11.0-16.0) L 10/31/17 07:35 Hct 24.3 % (34.0-47.0) L 10/31/17 07:35 MCV 89.0 fL (81.0-99.0) 10/31/17 07:35 MCH 29.5 pg (27.0-31.0) 10/31/17 07:35 MCHC 33.1 g/dL (33.0-37.0) 10/31/17 07:35 RDW 16.3 % (11.5-14.5) H 10/31/17 07:35 Plt Count 262 K/uL (130-400) 10/31/17 07:35 MPV 8.2 fL (7.2-11.7) 10/31/17 07:35 Neut % (Auto) 41.3 % (50.0-75.0) L 10/31/17 07:35 Lymph % (Auto) 35.7 % (20.0-40.0) 10/31/17 07:35 [place] % (Auto) 14.0 % (0.0-10.0) H 10/31/17 07:35 Eos % (Auto) 8.6 % (0.0-4.0) H 10/31/17 07:35 Baso % (Auto) 0.4 % (0.0-2.0) 10/31/17 07:35 Neut # (Auto) 1.7 K/uL (1.8-7.0) L 10/31/17 07:35 Lymph # (Auto) 1.5 K/uL (1.0-4.3) 10/31/17 07:35 [place] # (Auto) 0.6 K/uL (0.0-0.8) 10/31/17 07:35 Eos # (Auto) 0.4 K/uL (0.0-0.7) 10/31/17 07:35 Baso # (Auto) 0.0 K/uL (0.0-0.2) 10/31/17 07:35 Band Neutrophils % 1 % (0-2) 10/17/17 22:24 Reactive Lymphs % 1 % (0-0) H 10/11/17 06:33 Neutrophils % (Manual) 58 % (50-75) 10/28/17 06:27 Lymphocytes % (Manual) 19 % (20-40) L 10/28/17 06:27 Monocytes % (Manual) 18 % (0-10) H 10/28/17 06:27 Eosinophils % (Manual) 4 % (0-4) 10/28/17 06:27 Basophils % (Manual) 1 % (0-2) 10/28/17 06:27 Toxic Granulation Present 10/10/17 05:26 Large Platelets Present 10/17/17 06:25 Platelet Estimate Normal (NORMAL) 10/28/17 06:27 RBC Morphology Normal 10/06/17 08:38 Polychromasia Slight 10/17/17 22:24 Ovalocytes Slight 10/16/17 06:23 Angelo Cells Slight 10/11/17 06:33 Hypochromasia (manual) Slight 10/28/17 06:27 Poikilocytosis (manual Slight 10/28/17 06:27 Anisocytosis (manual) Slight 10/28/17 06:27 PT 14.3 SECONDS (9.7-12.2) H 10/17/17 22:24 INR 1.2 10/17/17 22:24 APTT 27 SECONDS (21-34) 10/17/17 22:24 Fibrinogen 375 mg/dL (200-400) 10/15/17 15:33 Puncture Site Rba 10/20/17 16:08 pCO2 31 mm/Hg (35-45) L 10/20/17 16:08 pO2 73 mm/Hg (80-100) L 10/20/17 16:08 HCO3 26.7 mmol/L (21-28) 10/20/17 16:08 ABG pH 7.51 (7.35-7.45) H 10/20/17 16:08 ABG Total CO2 25.7 mmol/L (22-28) 10/20/17 16:08 ABG O2 Saturation 96.7 % (95-98) 10/20/17 16:08 ABG Base Excess 2.3 mmol/L (-2.0-3.0) 10/20/17 16:08 ABG Hemoglobin 9.5 g/dL (11.7-17.4) L 10/20/17 04:57 ABG Carboxyhemoglobin 1.1 % (0.5-1.5) 10/20/17 04:57 POC ABG HHb (Measured) 1.6 % (0.0-5.0) 10/20/17 04:57 ABG Methemoglobin 0.8 % (0.0-3.0) 10/20/17 04:57 Dayron Test Na 10/20/17 16:08 ABG Potassium 3.2 mmol/L (3.6-5.2) L 10/20/17 16:08 A-a O2 Difference 173.0 mm/Hg 10/20/17 16:08 Respiratory Index 2.4 10/20/17 16:08 Hgb O2 Saturation 96.5 % (95.0-98.0) 10/20/17 04:57 Sodium 155.0 mmol/l (132-148) H 10/20/17 16:08 Chloride 124.0 mmol/L (98-107) H 10/20/17 16:08 Glucose 82 mg/dl (65-105) 10/20/17 16:08 Lactate 1.1 mmol/L (0.7-2.1) 10/20/17 16:08 Inspiratory BiPAP 12 10/17/17 10:25 Expiratory BiPAP 5 10/17/17 10:25 Vent Mode Prvc 10/20/17 04:57 Mechanical Rate 12 10/20/17 04:57 FiO2 40.0 % 10/20/17 16:08 Crit Value Called To Antionette espino 10/17/17 15:56 Crit Value Called By Jason 10/17/17 15:56 Crit Value Read Back Y 10/17/17 15:56 Blood Gas Notified Time 1559 10/17/17 15:56 Tidal Volume 450 10/20/17 04:57 PEEP 5 10/20/17 04:57 Sodium 136 mmol/L (132-148) 10/31/17 07:35 Potassium 4.0 mmol/L (3.6-5.2) 10/31/17 07:35 Chloride 103 mmol/L (98-107) 10/31/17 07:35 Carbon Dioxide 28 mmol/L (22-30) 10/31/17 07:35 Anion Gap 9 (10-20) L 10/31/17 07:35 BUN 8 mg/dL (7-17) 10/31/17 07:35 Creatinine 0.8 mg/dL (0.7-1.2) 10/31/17 07:35 Est GFR ( Amer) > 60 10/31/17 07:35 Est GFR (Non-Af Amer) > 60 10/31/17 07:35 POC Glucose (mg/dL) 151 mg/dL (65-110) H 10/31/17 16:23 Random Glucose 96 mg/dL (65-105) 10/31/17 07:35 Hemoglobin A1c 7.1 % (4.2-6.5) H 10/04/17 20:20 Lactic Acid 1.2 mmol/L (0.7-2.1) 10/08/17 20:04 Serum Osmolality 328 mosm/kg (272-300) H 10/20/17 08:53 Ionized Calcium 5.6 mg/dL (4.80-5.60) 10/15/17 08:32 Calcium 7.6 mg/dl (8.6-10.4) L 10/31/17 07:35 Phosphorus 2.9 mg/dL (2.5-4.5) 10/30/17 07:05 Magnesium 1.7 mg/dL (1.6-2.3) 10/30/17 07:05 Total Bilirubin < 0.1 mg/dL (0.2-1.3) L 10/31/17 07:35 AST 55 U/L (14-36) H D 10/31/17 07:35 ALT 36 U/L (9-52) 10/31/17 07:35 Alkaline Phosphatase 242 U/L (38-126) H 10/31/17 07:35 Ammonia < 9 umol/L (9-33) L 10/15/17 08:32 Total Creatine Kinase 47 U/L (30-135) 10/17/17 21:47 CK-MB (Mass) 1.51 ng/mL (0.0-3.38) 10/17/17 21:47 Troponin I 0.0160 ng/mL (0.00-0.120) 10/26/17 15:23 NT-Pro-B Natriuret Pep 3920 pg/mL (0-900) H 10/27/17 11:30 Total Protein 5.1 g/dL (6.3-8.3) L 10/31/17 07:35 Albumin 2.1 g/dL (3.5-5.0) L 10/31/17 07:35 Globulin 3.0 gm/dL (2.2-3.9) 10/31/17 07:35 Albumin/Globulin Ratio 0.7 (1.0-2.1) L 10/31/17 07:35 Triglycerides 94 mg/dL (0-149) 10/05/17 05:55 Cholesterol 159 mg/dL (0-199) 10/05/17 05:55 LDL Cholesterol Direct 91 mg/dL (0-129) 10/05/17 05:55 HDL Cholesterol 41 mg/dL (30-70) 10/05/17 05:55 Amylase < 30 U/L (30-110) L D 10/08/17 06:39 Lipase 19 U/L (23-300) L 10/08/17 06:39 Free T4 1.49 ng/dL (0.78-2.19) 10/04/17 20:28 Free T3 pg/mL 1.76 pg/mL (2.77-5.27) L 10/17/17 11:53 Procalcitonin 2.34 NG/ML (0.19-0.49) H 10/26/17 19:40 TSH 3rd Generation 3.56 mIU/L (0.46-4.68) 10/25/17 06:21 Arterial Blood Potassium 3.2 mmol/L (3.6-5.2) L 10/20/17 16:08 Urine Color Yellow (YELLOW) 10/26/17 14:49 Urine Clarity Clear (Clear) 10/26/17 14:49 Urine pH 6.0 (5.0-8.0) 10/26/17 14:49 Ur Specific [place] 1.008 (1.003-1.030) 10/26/17 14:49 Urine Protein Negative mg/dL (NEGATIVE) 10/26/17 14:49 Urine Glucose (UA) 1+ mg/dL (Normal) 10/26/17 14:49 Urine Ketones Negative mg/dL (NEGATIVE) 10/26/17 14:49 Urine Blood Negative (NEGATIVE) 10/26/17 14:49 Urine Nitrate Negative (NEGATIVE) 10/26/17 14:49 Urine Bilirubin Negative (NEGATIVE) 10/26/17 14:49 Urine Urobilinogen Normal mg/dL (0.2-1.0) 10/26/17 14:49 Ur Leukocyte Esterase Neg Willi/uL (Negative) 10/26/17 14:49 Urine WBC (Auto) < 1 /hpf (0-5) 10/26/17 14:49 Urine RBC (Auto) < 1 /hpf (0-3) 10/26/17 14:49 Ur Squamous Epith Cells 10 /hpf (0-5) H 10/07/17 03:08 Urine Bacteria Rare (<OCC) 10/07/17 03:08 Urine Osmolality 593 mosm/kg (300-1000) 10/19/17 09:57 Ur Random Sodium 149 mmol/L 10/19/17 09:57 Stool Leukocytes, Qual Negative (NEGATIVE) 10/07/17 Unknown Stool Occult Blood Negative (NEGATIVE) 10/26/17 11:07 Vancomycin Trough 14.4 ug/mL (5.0-10.0) H 10/28/17 06:27 C. difficile Ag & Toxin Negative (NEGATIVE) 10/29/17 21:04 Hepatitis A IgM Ab Negative (NEGATIVE) 10/07/17 06:45 Hep Bs Antigen Negative (NEGATIVE) 10/07/17 06:45 Hep B Core IgM Ab Negative (NEGATIVE) 10/07/17 06:45 Hepatitis C Antibody Negative (NEGATIVE) 10/07/17 06:45 Influenza Typ A,B (EIA) Pos for influenza a (NEGATIVE) H 10/26/17 12:09 Blood Type O POSITIVE 10/18/17 11:51 Antibody Screen Negative 10/18/17 11:51 - Hospital Course Hospital Course: "CC: Chest Pain HPI: 77 yo Female with PMHx of HTN, HLD, DM, CAD, CABG, Hx of Breast Cancer (s/p lumpectomy), and Hypothyroidism presents to the ED for chest pain. She reports she started to have chest pain at 3pm today while she was sitting down in her kitchen. The pain was sharp, constant in the middle of her chest. She felt SOB, cold, and dizzy. Her chest pain was relieved when she was given nitro in the ambulance. Upon examining the patient she admitted to headache, epigastric burning pain that radiates to her back, nausea, and vomiting. Denied fever, chills, SOB, d/c, or urinary symptoms. PMHx: HTN, HLD, DM, CAD, CABG, Hx of Breast Cancer (s/p lumpectomy) and Hypothyroidism PSHx: Pacemaker (placed on the right due to Hx Breast Cancer) Meds: As per NOV, reviewed and confirmed All: NKDA SHx: Denied x 3 FHx: Strong Cardiac history, most family member of cardiac complications PMD: [facility] Helicopter Officer: Dr. Daryl Musa [phone]" Patient admitted to telemetry wherein underwent cardiac catherization. Patient required emergent surgery for ischemic bowel necrosis, monitoring and stabilize in the ICU unit. Patient monitored for other source of bleeding including identification of ulcer on endoscopy. Patient stabilized to the floor. Patient was treated with IV Abx for pneumonia, PO tamiflu for influenza, and antifungal for yeast identified both with urine and sputum Consults: Cardiology: Dr Childs-->f/u for PCI for RCA lesion 50% GI: Dr Boland-->f/u repeat egd 2-3 months for ulcer Infectious Disease: Dr. Lawson: to complete 2 more days of Tamiflu for influenza A, 3 more days of Diflucan 100mg PO daily, and completed IV abx in hospital to cover for pneumonia General surgery: Dr Hinton: f/u in 1-2 weeks of post-operative management of ischemic bowel surgery Discussed with patient's PMD, Dr Jimenez who goes to [facility] of patient's hospital stay. Discussed with patient's son Al Gee in regards to discharge instructions. Patient is medically stable for discharge under Dr. Luis Jimenez's service at [facility]. This is a summary of patient's hospitalization. Please review body of record for further details in regards of patient's hospitalization. - Date & Time of H&P Date of H&P: 10/04/17 Time of H&P: 19:45 Discharge Exam - Head Exam Head Exam: NORMAL INSPECTION - Eye Exam Eye Exam: EOMI - ENT Exam ENT Exam: Mucous Membranes Moist - Respiratory Exam Respiratory Exam: Decreased Breath Sounds, Rales, NORMAL BREATHING PATTERN - Cardiovascular Exam Cardiovascular Exam: REGULAR RHYTHM, +S1, +S2 - GI/Abdominal Exam GI & Abdominal Exam: Normal Bowel Sounds, Soft. absent: Distended, Firm, Guarding, Rebound, Rigid, Tenderness - Extremities Exam Extremities exam: normal capillary refill, pedal edema (improved), pedal pulses present - Neurological Exam Neurological exam: Alert, Oriented x3 - Psychiatric Exam Psychiatric exam: Normal Affect, Normal Mood - Skin Skin Exam: Dry, Normal Color, Warm Discharge Plan - Discharge Medications Prescriptions: ALPRAZolam [Xanax] 0.25 mg PO TID PRN #10 tab PRN Reason: Anxiety Apixaban [Eliquis] 5 mg PO BID #60 tab diltiaZEM [Cardizem] 60 mg PO Q6H #120 tab Fluconazole [Diflucan] 100 mg PO DAILY #3 tab Rosuvastatin Calcium [Crestor] 5 mg NG HS #30 tab Saccharomyces Boulardi [Florastor] 250 mg NG BID #30 cap - Follow Up Plan Condition: STABLE Disposition: HOME/ ROUTINE Instructions: Diltiazem (By mouth), Fluconazole (By mouth), Oseltamivir (By mouth), Apixaban (By mouth), Atrial Fibrillation (DC), Chest Pain (DC), Urinary Tract Infection in Women (DC), Heart Healthy Diet (DC), Bowel Resection (DC), Chronic Hypertension (DC), Low Sodium Diet (DC), Anemia (DC) Additional Instructions: Please discharge patient to [facility] as per Dr. Royal Please continue all old and new medications as prescribed Please follow up with Dr. Hinton, general surgery in 1-2 weeks for incision check Please follow up with your batch tank controller, Dr. Daniel Lyles in 1 week, cardiac catherization done, ACS ruled out Please follow up with your PMD in 1 week Please return to the hospital if symptoms resumes such as: abdominal pain, fever , chills, chest pain, SOB Clinical Quality Measures - CQM - Heart Failure Ejection Fraction: 40 % or Greater Left Ventricular Function to be assessed after discharge: Yes GERALD Inhibitor Prescribed: No Contraindication/Reason for not providing: blood pressure controlled Beta-Abdiel Prescribed: Metoprolol Succinate Angiotensin II Receptor Abdiel Prescribed: Yes AnticoagulationTherapy for Atrial Fibrillation/Atrialflutter: Yes Aldosterone Antagonist Prescribed: No Contraindication/Reason for not providing: blood pressure controlled Hydralazine Nitrate Prescribed: No Contraindication/Reason for not providing: not clinically indicated Implantable Cardioverter Defibrillator Therapy: No Contraindication/Reason for not providing: not clinically indicated Cardiac Resynchronization Therapy Prescribed: No Contraindication/Reason for not providing: not clinically indicated Will be discharged to: [facility] Follow Up Date (must be within 7 days from discharge): 10/31/17 Follow Up Time: 09:00 Attending/Attestation - Attestation I have personally seen and examined this patient.: Yes I have fully participated in the care of the patient.: Yes I have reviewed all pertinent clinical information, including history, physical exam and plan: Yes Notes (Text): Discharge Diagnoses 1). Hx Bowel Ischemia (10/08/17: Exploratory laparotomy, small bowel resection and primary anastomosis) * Surgery Dr. Hinton on board-->help appreciated * Tolerated regular diet and moving bowels * Surgery Dr. Hinton * Devora removed 10/24/17 * Recommends for rehab [facility] and PT * Follow-up in 1-2 weeks for postoperative surveillance 2). Hx Chest Pain, LBBB, CAD, CABG, Pacemaker, Aortic Stenosis, New Onset A-fib * Cardiology Dr. Childs on board--> help appreciated * Eliquis 5.0 mg PO 2x/day (Medicine Team was NOT using full dose considering the findings on EGD 10/18/17 as well as history of episodes of large bright red blood per rectum. However, Cardiology Team has increased dose to 5 mg PO 2x/day) * Cardizem 60 mg PO Q6H * Cozaar 100 mg PO 1x/day * Metoprolol Succinate 25 mg PO 1x/day * Crestor 5 mg PO 1x/day * Will need to followup with cardiology for RCA lesion about 50% noted during cath on admission 3). Hx Sepsis Secondary UTI (Klebsiella and Yeast) * Repeat Urine Culture 10/18/17 showed NO growth * Repeat Urine Culture 10/26/17 showed Yeast species: * Fluconazole 100 mg IV 1x/day through 11/03/17-->To complete 3 more days of Diflucan 100mg PO tab upon discharge * 4). Sputum (+) Yeast (10/18/17) * Fluconazole 100 mg PO 1x/day and treated for 7 days 5). Bilateral PE * CT Angio Chest 10/28/17: Bilateral Pulmonary Emboli involving lower lobe pulmonary artery branches. NO central pulmonary embolus * Eliquis 2.5 mg PO 2x/day was ordered but Cardiology has increased to 5 mg PO 2x/day * Monitor H/H 6). Influenza A and Likely Hospital Acquired Pneumonia MDR Bilaterally * Infectious Disease (Dr. Lawson) on board-->help appreciated * Completed Tamiflu 75 mg PO 2x/day through 10/31/17 * Recommended for 2 more days on discharge * Therefore we are covering for Hosptial Acquired Pneumonia with the risk for Multidrug Resistance: * Zosyn 3.375 gm IV Q6H (10/26/17- 10/31/17 ) * Ciprofloxacin 400 mg IV Q12H (10/26/17-10/31/17) * Vancomycin 1 susanne IV Q12H (10/26/17-10/31/17) * F/U Vancomycin level 30 minutes PRIOR to next 4th dose: 10/31/17 at 4:30 PM * Repeat Blood Culture 10/26/17 is negative to date 6). Hx Melena/BRBPR * Resolved * EGD 10/18/17: esophageal ulcer 7 mm nonbleeding, duodenum with superficial ulceration, adherent blood clot in jejunum * GI Dr. Boland * Discussed with son, to avoid NSAIDs and monitor for bleeding in light of blood thinner for PE and atrial fibrillation on discharge 7). Hx Constipation * Resolved * C. Dif negative X3 8). Hx Liver Cysts * Evaluated by GI Dr. Boland * NO further workup at this time 9). Hx Breast CA/Lumpectomy 10). Hx HTN * Cozaar 100 mg PO 1x/day * Metoprolol Succinate 25 mg PO 1x/day * Cardizem 60 mg PO Q6H 11). Hx HLD * Crestor 5 mg PO 1x/day 12). Hx DM * RISS Novolin R ACHS 13). Hx Episode Confusion * Resolved 14). Hx Hypernatremia * Resolved 15). Low Magnesium * Resolved 16). Hx Hypothyroidism * Levothyroxine 50 mcg PO 1x/day 16). Prophylaxis * Acetaminophen 650 mg PO Q6H PRN fever (was on around the clock since Flu diagnosis but changed over to PRN on 10/30/17) * Duoneb Q6H PRN shortness of breathe * Xanax 0.25 mg PO TID PRN Anxiety * Mirtazapine 15 mg PO HS * Zofran 4 mg IV Q6H PRN N/V * Florastor 250 mg PO 2x/day (but not within 2 hours of antibiotic dose) * Simethicone 80 mg PO 4x/day * Protonix 40 mg PO 1x/day Discharge instructions: Patient is medically stable for discharge under Dr. Luis Jimenez's service at [facility]. Patient to complete 2 more days of Tamiflu 75mg PO bid, 3 more days of Diflucan 100mg tab to cover for yeast in urinary tract infection. Patient started on Eliquis 5mg PO bid for pulmonary embolus and atrial fibrillation. Patient recommended to follow-up with cardiology, she will need future PCI for RCA lesion and recommended to follow-up with surgery in 1-2 weeks for postoperative management. Refrain from NSAIDs such as naproxen, mobic, etc given patient does have ulcer identified on endoscopy.
[2017-10-31 18:26] VITALS: PULSE 84
--- NOTE | 2017-10-31 19:26 | CP.PCM.PN ---
Subjective - Date & Time of Evaluation Date of Evaluation: 10/31/17 Time of Evaluation: 03:30 - Subjective Subjective: dictated Objective - Vital Signs/Intake and Output Vital Signs (last 24 hours): Temp Pulse Resp BP Pulse Ox 9 F L 84 20 132/71 95 10/31/17 15:00 10/31/17 18:16 10/31/17 15:00 10/31/17 15:00 10/31/17 15:00 Intake and Output: 10/31/17 11/01/17 18:59 06:59 Intake Total 1240 Balance 1240 - Labs Labs: 10/31/17 07:35 10/31/17 07:35 PT 14.3 SECONDS (9.7-12.2) H 10/17/17 22:24 INR 1.2 10/17/17 22:24 APTT 27 SECONDS (21-34) 10/17/17 22:24
--- NOTE | 2017-10-31 21:02 | CARD ---
APPROVED REPORT EKG Measurement Heart [id number] <Conclusion> Atrial fibrillation Ventricular-paced rhythm Abnormal ECG
[2017-10-31 21:05] LABS: SQUAMOUS EPITHIAL 2 /hpf (0-5); URINE BILIRUBIN NEGATIVE (NEGATIVE); URINE BLOOD NEGATIVE (NEGATIVE); URINE CLARITY Clear (Clear); URINE COLOR Colorless (YELLOW); URINE GLUCOSE (UA) NORMAL (Normal); URINE LEUKOCYTE ESTERASE NEG Leu/uL (Negative); URINE NITRATE NEGATIVE (NEGATIVE); URINE PROTEIN NEGATIVE (NEGATIVE); URINE UROBILINOGEN NORMAL mg/dL (0.2-1.0)
--- NOTE | 2017-10-31 21:21 | PN ---
DATE: 10/31/2017. SUBJECTIVE: The patient was seen today. She was feeling a little better. Her temperature she has been afebrile, and she says nobody was coming. She seems to be in good spirits. She says she eats what she likes and she does not like chicken she says and she had no abdominal pain, no chest pain. PHYSICAL EXAMINATION: VITAL SIGNS: Her temperature was afebrile, pulse 87, blood pressure 132/71, respirations are 20. GENERAL: She is alert and oriented. HEENT: Head is atraumatic, normocephalic. Pupils are reacting to light. NECK: Supple. LUNGS: Clear. HEART: S1 and S2 is regular now. ABDOMEN: Soft, nontender. No guarding, no rigidity present. EXTREMITIES: Have no edema. ASSESSMENT AND PLAN: She has gone a rough course of hospitalization, having ischemic bowel, undergoing respiratory failure, pneumonia, and has now pulmonary embolism, gastrointestinal bleeding, urinary tract infection and flu, influenza. At this time would discontinue the antibiotics that she has been getting, and to give her treatment we would put her on Diflucan for next 3 days for the urinary tract infection and 2 more days of Tamiflu, and she could go to rehab. I do not think the antibiotics are needed, as she has pulmonary embolism and she should be on the blood thinner, and she is stable at this time. Reji Lawson MD
== END 2017-10-31 19:01 | DRG 329 ==
LOC: C.ER 17:30 → C.9E 19:43 → C.6T 22:20 → OBSVTOIN 10-06 12:38 → C.6T 10-06 21:18 → C.9I 10-08 02:10 → C.6T 10-23 13:56 → C.5S 10-30 02:52
PROVIDERS: ADMIT Family Medicine; ATTEND Family Medicine
PROC: 4A023N7 Measurement of Cardiac Sampling and Pressure, Left Heart, Percutaneous Approach (ICD-10-PCS; 2017-10-06)
PROC: B2151ZZ Fluoroscopy of Left Heart using Low Osmolar Contrast (ICD-10-PCS; 2017-10-06)
PROC: B2111ZZ Fluoroscopy of Multiple Coronary Arteries using Low Osmolar Contrast (ICD-10-PCS; 2017-10-06)
PROC: B2121ZZ Fluoroscopy of Single Coronary Artery Bypass Graft using Low Osmolar Contrast (ICD-10-PCS; 2017-10-06)
PROC: 0DT80ZZ Resection of Small Intestine, Open Approach (ICD-10-PCS; principal; 2017-10-07 23:00)
PROC: 30233N1 Transfusion of Nonautologous Red Blood Cells into Peripheral Vein, Percutaneous Approach (ICD-10-PCS; 2017-10-08)
PROC: 5A1955Z Respiratory Ventilation, Greater than 96 Consecutive Hours (ICD-10-PCS; 2017-10-08)
PROC: 0BH17EZ Insertion of Endotracheal Airway into Trachea, Via Natural or Artificial Opening (ICD-10-PCS; 2017-10-08)
PROC: 02HV33Z Insertion of Infusion Device into Superior Vena Cava, Percutaneous Approach (ICD-10-PCS; 2017-10-11)
PROC: 0DB98ZX Excision of Duodenum, Via Natural or Artificial Opening Endoscopic, Diagnostic (ICD-10-PCS; 2017-10-18)
DX: K55.029 Acute infarction of small intestine, extent unspecified (principal); A41.59 Other Gram-negative sepsis; I21.4 Non-ST elevation (NSTEMI) myocardial infarction; I26.99 Other pulmonary embolism without acute cor pulmonale; J10.08 Influenza due to other identified influenza virus with other specified pneumonia; G93.41 Metabolic encephalopathy; K56.609 Unspecified intestinal obstruction, unspecified as to partial versus complete obstruction; J95.821 Acute postprocedural respiratory failure; I11.0 Hypertensive heart disease with heart failure; I46.9 Cardiac arrest, cause unspecified; E87.0 Hyperosmolality and hypernatremia; K22.10 Ulcer of esophagus without bleeding; I50.30 Unspecified diastolic (congestive) heart failure; E87.2 Acidosis; D62 Acute posthemorrhagic anemia; I48.1 Persistent atrial fibrillation; N39.0 Urinary tract infection, site not specified; E87.5 Hyperkalemia; K26.9 Duodenal ulcer, unspecified as acute or chronic, without hemorrhage or perforation; E11.9 Type 2 diabetes mellitus without complications; E86.1 Hypovolemia; I44.7 Left bundle-branch block, unspecified; B37.9 Candidiasis, unspecified; K28.9 Gastrojejunal ulcer, unspecified as acute or chronic, without hemorrhage or perforation; E03.9 Hypothyroidism, unspecified; E66.9 Obesity, unspecified; E78.00 Pure hypercholesterolemia, unspecified; G47.00 Insomnia, unspecified; I37.1 Nonrheumatic pulmonary valve insufficiency; I08.0 Rheumatic disorders of both mitral and aortic valves; I25.10 Atherosclerotic heart disease of native coronary artery without angina pectoris; K21.9 Gastro-esophageal reflux disease without esophagitis; K31.89 Other diseases of stomach and duodenum; K57.90 Diverticulosis of intestine, part unspecified, without perforation or abscess without bleeding; K76.89 Other specified diseases of liver; Y95 Nosocomial condition; Z51.5 Encounter for palliative care; Z79.01 Long term (current) use of anticoagulants; Z79.4 Long term (current) use of insulin; Z87.891 Personal history of nicotine dependence; Z91.19 Patient's noncompliance with other medical treatment and regimen; Z95.1 Presence of aortocoronary bypass graft; B96.1 Klebsiella pneumoniae [K. pneumoniae] as the cause of diseases classified elsewhere

== ENCOUNTER 2017-11-10 16:28 | Inpatient (IN) | payer MEDICARE, OTHER ==
[2017-11-10 16:28] VITALS: PULSE 126; BMI 26.1
--- NOTE | 2017-11-10 16:58 | C.PDOC ---
History Of Present Illness <Sruthi Patricia - Last Filed: 11/10/17 18:59> <Rj Sanders - Last Filed: 11/10/17 20:33> 77 year old female who is s/p ischemic bowel resection [address] Hinton , was sent to the ER from Dr. Boland's office for a complaint of multiple episodes of diarrhea and abdominal pain for the past 4 days. Patient is currently at [facility] for rehab and was sent to Dr. Boland's office for evaluation of her symptoms. Denies fever, chills, vomiting, or chest pain. (Sruthi Patricia) History Per: Patient History/Exam Limitations: no limitations Onset/Duration Of Symptoms: Days Current Symptoms Are (Timing): Still Present Radiation Of Pain To:: None Quality Of Discomfort: Unable To Describe Associated Symptoms: Diarrhea. denies: Fever, Chills, Vomiting Exacerbating Factors: None Alleviating Factors: None Recent travel outside of the [place]: No Abnormal Vaginal Bleeding: No <Sruthi Patricia - Last Filed: 11/10/17 18:59> <Rj Sanders - Last Filed: 11/10/17 20:33> Chief Complaint (Nursing): Abdominal Pain Past Medical History Reviewed: Historical Data, Nursing Documentation, Vital Signs - Medical History PMH: Anxiety, Arthritis (KNEE PAIN), Cardia Arrhythmia, COPD, Depression, Diabetes, HTN, Hypercholesterolemia, Hypothyroidism Surgical History: CABG (jan 17 2013 TRIPLE), Coronary Stent, Pacemaker, Tonsillectomy Family History: States: Unknown Family Hx - Social History Hx Tobacco Use: Yes (quit 6 years ago) Hx Alcohol Use: No Hx Substance Use: No - Immunization History Hx Tetanus Toxoid Vaccination: No Hx Influenza Vaccination: No Hx Pneumococcal Vaccination: No <Sruthi Patricia - Last Filed: 11/10/17 18:59> Vital Signs: Last Vital Signs Temp 97.8 F 11/10/17 16:38 Pulse 113 H 11/10/17 19:51 Resp 16 11/10/17 19:51 BP 124/62 11/10/17 19:51 Pulse Ox 98 11/10/17 19:51 - [facility] Procedures BREAST DX PROCEDURE NEC (04/18/14) DX ULTRASOUND-THORAX NEC (04/18/14) EXCISION OF DUODENUM, ENDO, DIAGN (10/06/17) FLUOROSCOPY OF LEFT HEART USING LOW OSMOLAR CONTRAST (10/06/17) FLUOROSCOPY OF MULT COR ART USING L OSM CONTRAST (10/06/17) FLUOROSCOPY OF SING COR A GRAFT USING L OSM CONTRAST (10/06/17) INITIAL INSERT TRANS LEADS INTO ATRIUM & VENTRICLE (12/20/13) INITIAL INSERTION OF DUAL-CHAMBER DEVICE (12/20/13) INSERTION OF ENDOTRACHEAL AIRWAY INTO TRACHEA, VIA OPENING (10/06/17) INSERTION OF INFUSION DEV INTO SUP VENA CAVA, PERC APPROACH (10/06/17) LOCAL EXCIS BREAST LES (04/18/14) LYMPHATIC STRUCT BIOPSY (05/14/14) LYMPHATIC SYSTEM SCAN (05/14/14) MEASURE OF CARDIAC SAMPL & PRESSURE, L HEART, PERC APPROACH (10/06/17) PERCUTAN NEEDLE BIOPSY OF BREAST (02/05/14) RESECTION OF SMALL INTESTINE, OPEN APPROACH (10/06/17) RESPIRATORY VENTILATION, GREATER THAN 96 CONSECUTIVE HOURS (10/06/17) TRANSFUSE NONAUT RED BLOOD CELLS IN PERIPH VEIN, PERC (10/06/17) X-RAY NEC AND NOS (02/05/14) Review Of Systems Constitutional: Negative for: Fever, Chills Gastrointestinal: Positive for: Abdominal Pain, Diarrhea. Negative for: Vomiting Genitourinary: Negative for: Dysuria, Hematuria <Sruthi Patricia - Last Filed: 11/10/17 18:59> Physical Exam - Physical Exam Appears: Non-toxic Skin: Warm, Dry Head: Atraumatic, Normacephalic Eye(s): bilateral: Normal Inspection Oral Mucosa: Moist Neck: Normal, Supple Chest: Symmetrical, No Tenderness Cardiovascular: Rhythm Regular Respiratory: Normal Breath Sounds, No Rales, No Rhonchi, No Wheezing Gastrointestinal/Abdominal: Soft, Tenderness (Diffuse), No Guarding, No Rebound , Other (Healing vertical midline scar) Rectal: Other (Liquid stool in diaper) Back: No CVA Tenderness Neurological/Psych: Oriented x3, Normal Speech <Sruthi Patricia - Last Filed: 11/10/17 18:59> ED Course And Treatment - Laboratory Results Result Diagrams: 11/10/17 17:28 11/10/17 17:28 O2 Sat by Pulse Oximetry: 97 <Sruthi Patricia - Last Filed: 11/10/17 18:59> - Laboratory Results Result Diagrams: 11/10/17 17:28 11/10/17 17:28 <Rj Sanders - Last Filed: 11/10/17 20:33> Disposition - Disposition Disposition Time: 19:00 <Sruthi Patricia - Last Filed: 11/10/17 18:59> Discussed With DrJuvencio: Triston Mon Comment: accepted the pt on his service and took over the care at 8:30 PM Doctor Will See Patient In The: ED Counseled Patient/Family Regarding: Studies Performed, Diagnosis <Rj Sanders - Last Filed: 11/10/17 20:33> - Disposition Disposition: HOSPITALIZED Condition: GUARDED Forms: [employer] (Citizen Of [place]) - Clinical Impression Clinical Impression: Abdominal pain, Diarrhea, Enterocolitis - 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 - Scribe Statement The provider has reviewed the documentation as recorded by the Scribe <Sruthi Patricia - Last Filed: 11/10/17 18:59> <Rj Sanders - Last Filed: 11/10/17 20:33> - Scribe Statement Pola Steinberg All medical record entries made by the Scribe were at my direction and personally dictated by me. I have reviewed the chart and agree that the record accurately reflects my personal performance of the history, physical exam, medical decision making, and the department course for this patient. I have also personally directed, reviewed, and agree with the discharge instructions and disposition. (Sruthi Patricia) Physician Patient Turnover Patient Signed Over To: Rj Sanders Handoff Comments: CT report, dispo <Sruthi Patricia - Last Filed: 11/10/17 18:59> Decision To Admit <Sruthi Patricai - Last Filed: 11/10/17 18:59> - Pt Status Changed To: Hospital Disposition Of: Inpatient - Admit Certification Admit to Inpatient:: After my assessment, the patient will require hospitalization for at least two midnights. This is because of the severity of symptoms shown, intensity of services needed, and/or the medical risk in this patient being treated as an outpatient. - InPatient: Physician Admission Certification:: After my assessment, the patient will require hospitalization for at least two midnights. This is because of the severity of symptoms shown, intensity of services needed, and/or the medical risk in this patient being treated as an outpatient. - . Bed Request Type: Regular Admitting Physician: Triston Mon <Rj Sanders - Last Filed: 11/10/17 20:33> - . Patient Diagnosis: Abdominal pain, Diarrhea, Enterocolitis
[2017-11-10 17:33] LABS: BASO # 0.1 K/uL (0.0-0.2); BASO % 0.3 % (0.0-2.0); EOS # 0.2 K/uL (0.0-0.7); EOS % 1.1 % (0.0-4.0); LYMPH # 2.7 K/uL (1.0-4.3); LYMPH % 16.3 % (20.0-40.0); MEAN CELL VOLUME 89.4 fL (81.0-99.0); MEAN CORPUSCULAR HEMOGLOBIN 29.2 pg (27.0-31.0); MEAN CORPUSCULAR HGB CONC 32.6 g/dL (33.0-37.0); MEAN PLATELET VOLUME 7.3 fL (7.2-11.7); MONO # 1.6 K/uL (0.0-0.8); MONO % 9.8 % (0.0-10.0); NEUT % 72.5 % (50.0-75.0); NRBC % 0.1 % (0.0-2.0); RBC 3.82 Mil/uL (3.80-5.20); RED CELL DISTRIBUTION WIDTH 17.7 % (11.5-14.5)
[2017-11-10 17:36] LABS: WHITE BLOOD COUNT 16.6 K/uL (4.8-10.8)
[2017-11-10 17:37] LABS: HEMOGLOBIN 11.1 g/dL (11.0-16.0)
[2017-11-10 17:42] LABS: INR 1.5; PROTHROMBIN TIME 16.5 SECONDS (9.7-12.2)
[2017-11-10 17:52] LABS: ALB/GLOB RATIO 0.8 (1.0-2.1); ALBUMIN 3.3 g/dL (3.5-5.0); ALT/SGPT 23 U/L (9-52); AST/SGOT 30 U/L (14-36); BLOOD UREA NITROGEN 14 mg/dL (7-17); CALCIUM 9.5 mg/dl (8.6-10.4); GFR AFRICAN-AMERICAN > 60; GFR NON-AFRICAN AMERICAN > 60; LIPASE 87 U/L (23-300)
[2017-11-10] MEDS ORDERED: Iodixanol 320 MG/ML 100 ML BOTTLE IV ONE (18:21)
[2017-11-10] MEDS ORDERED: metroNIDAZOLE IV 500 mg/100 ml 500 MG/100 ML BAG IV STA (18:22)
--- NOTE | 2017-11-10 18:33 | RAD ---
HISTORY: abd pain COMPARISON: Chest x-ray performed 10/26/17 TECHNIQUE: Chest, one view. FINDINGS: Examination limited by habitus. LUNGS: Linear atelectasis, left lung base. 4 mm right lower lobe calcified granuloma. Please note that chest x-ray has limited sensitivity for the detection of pulmonary masses. PLEURA: No significant pleural effusion identified. No definite pneumothorax . CARDIOVASCULAR: Dual lead right-sided pacemaker. 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 Heart size appears within normal limits. Atherosclerotic calcifications of the aorta. OSSEOUS STRUCTURES: Degenerative changes. VISUALIZED UPPER ABDOMEN: Unremarkable. OTHER FINDINGS: None. IMPRESSION: Linear atelectasis, left lung base. Calcified granuloma, right lower lobe. Dual lead right-sided pacemaker. 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 Atherosclerotic calcifications of the aorta.
[2017-11-10] MEDS ORDERED: metroNIDAZOLE IV 500 mg/100 ml 500 MG/100 ML BAG ONE (18:58)
[2017-11-10] MEDS ORDERED: Piperacillin/Tazobact 3.375 gm 100 ML IVPB STA (19:17)
--- NOTE | 2017-11-10 19:31 | CT ---
EXAM: CT Abdomen and Pelvis With Intravenous Contrast EXAM DATE/TIME: 11/10/2017 5:06 PM CLINICAL HISTORY: 77 years old, female; Pain and signs and symptoms; Other: Diarrhea; Abdominal pain; Generalized; Prior surgery; Surgery date: 1-6 months; Surgery type: Colon resection for ischemic bowel; Additional info: Abd pain/diarrhea x 4 days, S/P bowel resection TECHNIQUE: Axial computed tomography images of the abdomen and pelvis with intravenous contrast. All CT scans at this facility use one or more dose reduction techniques, viz.: automated exposure control; ma/kV adjustment per patient size (including targeted exams where dose is matched to indication; i.e. head); or iterative reconstruction technique. Coronal and sagittal reformatted images were created and reviewed. CONTRAST: 100 mL of visipaque 320 administered intravenously. COMPARISON: CT - ABD PELVIS PO IV CONTRAST 2017-10-27 19:09 FINDINGS: Lower thorax: Heart size is normal.There is streak artifact from pacemaker leads. There surgical clips in the mediastinum. There are small bilateral effusions, decreased since the prior study. There is residual airspace disease at both lung bases left greater than right. There is a granuloma in the right middle lobe. There is subsegmental atelectasis/scarring in the lingula ABDOMEN: Liver: There is 17 x13 x 18 cm cyst in the right lobe of the liver, unchanged. There are additional smaller cysts, unchanged. Gallbladder and bile ducts: Gallbladder is distended.Common duct is unremarkable. Pancreas: Pancreas is atrophic. Spleen: unremarkable Adrenals: unremarkable Kidneys and ureters: unremarkable Stomach and bowel: Stomach is empty. Rotation is normal. There is an enteral anastomosis in the left upper quadrant. There is no small bowel obstruction. There are mildly distended small bowel loops in the right lower quadrant with wall thickening. Ileocecal region is unremarkable. Colon is incompletely distended. There is colonic wall thickening. Appendix: See stomach and bowel PELVIS: Bladder: unremarkable Reproductive: Uterus and adnexal structures are unremarkable. ABDOMEN and PELVIS: Intraperitoneal space: There is no free air or free fluid. Bones/joints: There are postsurgical changes of median sternotomy. Bony structures are osteopenic with degenerative change. Soft tissues: There is a small fat containing ventral hernia. Vasculature: There are vascular calcifications. There is mild infrarenal location of the distal aorta, 2.5 cm in maximal diameter. There is perfusion of both iliac arteries. Lymph nodes: There is no pathologic adenopathy. IMPRESSION: Enterocolitis; interval resolution of inflammation/fluid at the enteral anastomosis in the left upper quadrant; interval decrease in bilateral pleural effusions and bibasilar airspace disease; multiple hepatic cysts, unchanged Additional nonemergent findings as described above.
[2017-11-10] MEDS ORDERED: Piperacillin/Tazobact 3.375 gm 100 ML IVPB ONE (19:32)
--- NOTE | 2017-11-10 23:19 | CP.PCM.HP ---
<EnadannaVanda LongJuvencio - Last Filed: 11/11/17 01:08> History of Present Illness - History of Present Illness History of Present Illness: CC: Abdominal pain HPI: Patient is a 77 year old Female with a past medical history of ischemic bowel resection, PE (B/L), HTN, HLD, DM, CAD, CABG, Hx of Breast Cancer (s/p lumpectomy), and Hypothyroidism presents to the ED with complaints of abdominal pain that radiates to her right flank and back. Patient reports the pain started 1 week ago and is constant. Patient states she believes its "pain from her liver cyst". Patient also reports having diarrhea starting Tuesday , that progressively worsened. She had 10 episodes of diarrhea yesterday. Patient states she has severe pain that she cannot bear. Patient denies having chest pain, palpitations, shortness of breath, nausea, vomiting, fevers, headaches, dizziness, dysuria, hematuria, melena, and hematochezia. PMD: Tony PMHx: ischemic bowel resection, B/L PE (10/2017), HTN, HLD, DM, CAD, CABG, Hx of Breast Cancer (s/p lumpectomy) and Hypothyroidism PSHx: ischemic bowel resection (10/08/17), Pacemaker (placed on the right due to Hx Breast Cancer) All: NKDA SocHx: Denied x 3 FHx: Strong Cardiac history, most family member of cardiac complications Medications: See EMR Present on Admission - Present on Admission Any Indicators Present on Admission: Yes History of DVT/PE: Yes Review of Systems - Constitutional Constitutional: absent: Chills, Fever, Headache, Weakness - EENT Ears: absent: Dizziness - Cardiovascular Cardiovascular: absent: Chest Pain, Dyspnea, Leg Edema, Palpitations - Respiratory Respiratory: Pain with Coughing. absent: Cough, Dyspnea, Dyspnea on Exertion - Gastrointestinal Gastrointestinal: Abdominal Pain, Diarrhea. absent: Constipation, Hematochezia , Nausea, Vomiting - Genitourinary Genitourinary: absent: Dysuria, Hematuria - Musculoskeletal Musculoskeletal: Back Pain - Integumentary Integumentary: absent: Rash - Neurological Neurological: absent: Dizziness, Headaches - Psychiatric Psychiatric: Anxiety, Depression Past Patient History - Past Medical History & Family History Past Medical History?: Yes - Past Social History Smoking Status: Former Smoker - CARDIAC Hx Cardia Arrhythmia: Yes Hx Hypercholesterolemia: Yes Hx Hypertension: Yes Hx Pacemaker: Yes - PULMONARY Hx Chronic Obstructive Pulmonary Disease (COPD): Yes - NEUROLOGICAL Hx Neurological Disorder: Yes - HEENT Hx HEENT Problems: Yes Hx Cataracts: Yes (removed bilateral 2011) - RENAL Hx Chronic Kidney Disease: No - ENDOCRINE/METABOLIC Hx Hypothyroidism: Yes - HEMATOLOGICAL/ONCOLOGICAL Hx Blood Disorders: Yes Hx Cancer: Yes (LEFT BREAST-RADIATION TX. DONE) - INTEGUMENTARY Hx Dermatological Problems: Yes Other/Comment: CANCER LEFT BREAST-LUMPECTOMY DONE - MUSCULOSKELETAL/RHEUMATOLOGICAL Hx Arthritis: Yes (KNEE PAIN) - GASTROINTESTINAL Hx Gastrointestinal Disorders: No - GENITOURINARY/GYNECOLOGICAL Hx Genitourinary Disorders: No - PSYCHIATRIC Hx Anxiety: Yes Hx Depression: Yes Hx Substance Use: No - SURGICAL HISTORY Hx Coronary Artery Bypass Graft: Yes (jan 17 2013 TRIPLE) Hx Coronary Stent: Yes Hx Tonsillectomy: Yes - ANESTHESIA Hx Anesthesia: Yes Hx Anesthesia Reactions: No Hx Malignant Hyperthermia: No Meds Allergies/Adverse Reactions: Allergies Allergy/AdvReac Type Severity Reaction Status Date / Time No Known Allergies Allergy Verified 10/04/17 17:45 Physical Exam - Constitutional Appears: In Acute Distress - Head Exam Head Exam: ATRAUMATIC, NORMOCEPHALIC - Eye Exam Eye Exam: EOMI, Normal appearance - ENT Exam ENT Exam: Mucous Membranes Moist - Respiratory Exam Respiratory Exam: Clear to Auscultation Bilateral, NORMAL BREATHING PATTERN. absent: Rales, Rhonchi, Wheezes - Cardiovascular Exam Cardiovascular Exam: Tachycardia, +S1, +S2 - GI/Abdominal Exam GI & Abdominal Exam: Normal Bowel Sounds, Soft, Tenderness (RUQ, Right flank;). absent: Distended Additional comments: Well healing midline scar - Extremities Exam Extremities exam: Positive for: pedal pulses present. Negative for: pedal edema , tenderness - Neurological Exam Neurological exam: Alert, Oriented x3 - Psychiatric Exam Psychiatric exam: Anxious - Skin Skin Exam: Dry, Warm Additional comments: appears hypovolemic Results - Vital Signs Recent Vital Signs: Last Vital Signs Temp 99.8 F H 11/10/17 22:59 Pulse 124 H 11/10/17 22:59 Resp 22 11/10/17 22:59 BP 125/59 L 11/10/17 22:59 Pulse Ox 98 11/10/17 22:59 - Labs Result Diagrams: 11/10/17 17:28 11/10/17 17:28 Labs: Laboratory Results - last 24 hr 11/10/17 11/10/17 11/10/17 17:06 17:28 17:28 WBC 16.6 H D RBC 3.82 Hgb 11.1 D Hct 34.1 MCV 89.4 MCH 29.2 MCHC 32.6 L RDW 17.7 H Plt Count 791 H D MPV 7.3 Neut % (Auto) 72.5 Lymph % (Auto) 16.3 L [place] % (Auto) 9.8 Eos % (Auto) 1.1 Baso % (Auto) 0.3 Neut # (Auto) 12.0 H Lymph # (Auto) 2.7 [place] # (Auto) 1.6 H Eos # (Auto) 0.2 Baso # (Auto) 0.1 PT INR APTT Sodium 135 Potassium 5.2 Chloride 99 Carbon Dioxide 24 Anion Gap 17 BUN 14 Creatinine 0.9 Est GFR ( Amer) > 60 Est GFR (Non-Af Amer) > 60 Random Glucose 130 H Lactic Acid Calcium 9.5 Total Bilirubin 0.5 AST 30 ALT 23 Alkaline Phosphatase 202 H Total Protein 7.6 Albumin 3.3 L D Globulin 4.3 H Albumin/Globulin Ratio 0.8 L Lipase 87 Stool Occult Blood C. difficile Ag & Toxin Positive H 11/10/17 11/10/17 11/10/17 17:28 17:28 17:28 WBC RBC Hgb Hct MCV MCH MCHC RDW Plt Count MPV Neut % (Auto) Lymph % (Auto) [place] % (Auto) Eos % (Auto) Baso % (Auto) Neut # (Auto) Lymph # (Auto) [place] # (Auto) Eos # (Auto) Baso # (Auto) PT 16.5 H INR 1.5 APTT 33 Sodium Potassium Chloride Carbon Dioxide Anion Gap BUN Creatinine Est GFR ( Amer) Est GFR (Non-Af Amer) Random Glucose Lactic Acid 2.5 H Calcium Total Bilirubin AST ALT Alkaline Phosphatase Total Protein Albumin Globulin Albumin/Globulin Ratio Lipase Stool Occult Blood Positive H C. difficile Ag & Toxin Assessment & Plan (1) C. difficile colitis Assessment and Plan: C. Diff: positive * In the ED, given one dose of Flagyl. * Started Flagyl 500mg PO Q8 (active on 11/11/17) * Special contact/isolation * Abdomen/Pelv CT (11/10/17): entercolitis; inflammation/fluid at enteral anastomosis in LUQ; decrease in b/l pleural effusions and bibasilar airspace disease; multiple hepatic cysts (unchanged); liver cyst [id number] in right lobe (unchanged) Status: Acute (2) Abdominal pain Assessment and Plan: Hx of ischemic bowel, ulcer * Abdomen/Pelv CT (11/10/17): entercolitis; inflammation/fluid at enteral anastomosis in LUQ; decrease in b/l pleural effusions and bibasilar airspace disease; multiple hepatic cysts (unchanged); liver cyst [id number] in right lobe (unchanged) * Endoscopy (10/18/17): Esophageal ulcer; erythematous duodenopathy; enteroenterostomy characterized by friable mucosa, inflammation and ulceration in jejunum. * In the ED, given one dose of Flagyl and Zosyn; morphine for pain control given. * Flagyl 500mg PO Q8 (active on 11/11/17) * Percocet 5/325, 1 tab Q4 prn for pain * Protonix 40mg PO daily Status: Acute (3) Pulmonary embolism Assessment and Plan: Hx of bilateral PE diagnosed in 10/2017. Patient on Eliqus 5mg PO BID. * CT Angio Chest 10/28/17: Bilateral Pulmonary Emboli involving lower lobe pulmonary artery branches. NO central pulmonary embolus * Continue home meidcation: Eliquis 5mg PO BID * Monitor H/H Status: Acute (4) Afib Assessment and Plan: Continue home medication: * Cardizem 60 mg PO Q6H * Cozaar 100 mg PO 1x/day * Metoprolol Succinate 25 mg PO 1x/day * Crestor 5 mg PO 1x/day Status: Chronic (5) Hx of CABG Assessment and Plan: Continue home medication: * Cardizem 60 mg PO Q6H * Cozaar 100 mg PO 1x/day * Metoprolol Succinate 25 mg PO 1x/day * Crestor 5 mg PO 1x/day Status: Chronic (6) Hypertension Assessment and Plan: Continue home medication: * Cardizem 60 mg PO Q6H * Cozaar 100 mg PO 1x/day * Metoprolol Succinate 25 mg PO 1x/day * Crestor 5 mg PO 1x/day Status: Chronic (7) Ischemic necrosis of small bowel Assessment and Plan: S/P exploratory laparotomy, Ischemic bowel resection, and primary anastomosis() with Dr. Hinton. Status: Chronic (8) Diabetes mellitus Assessment and Plan: History of DM Home medication: Metformin- HOLD ISS Hypoglycemic protocol A1c (10/04/17): 7.1 Status: Acute (9) Prophylactic measure Assessment and Plan: Eliquis 5mg PO BID Protonix 40mg PO daily Full Liquid Diet Special contact isolation Status: Acute <Triston Mon P - Last Filed: 11/11/17 07:56> Results - Vital Signs Recent Vital Signs: Last Vital Signs Temp 98.2 F 11/11/17 03:17 Pulse 112 H 11/11/17 03:17 Resp 20 11/11/17 03:17 BP 117/72 11/11/17 03:17 Pulse Ox 95 11/11/17 03:17 - Labs Result Diagrams: 11/10/17 17:28 11/10/17 17:28 Labs: Laboratory Results - last 24 hr 11/10/17 11/10/17 11/10/17 17:06 17:28 17:28 WBC 16.6 H D RBC 3.82 Hgb 11.1 D Hct 34.1 MCV 89.4 MCH 29.2 MCHC 32.6 L RDW 17.7 H Plt Count 791 H D MPV 7.3 Neut % (Auto) 72.5 Lymph % (Auto) 16.3 L [place] % (Auto) 9.8 Eos % (Auto) 1.1 Baso % (Auto) 0.3 Neut # (Auto) 12.0 H Lymph # (Auto) 2.7 [place] # (Auto) 1.6 H Eos # (Auto) 0.2 Baso # (Auto) 0.1 PT INR APTT Sodium 135 Potassium 5.2 Chloride 99 Carbon Dioxide 24 Anion Gap 17 BUN 14 Creatinine 0.9 Est GFR ( Amer) > 60 Est GFR (Non-Af Amer) > 60 POC Glucose (mg/dL) Random Glucose 130 H Lactic Acid Calcium 9.5 Total Bilirubin 0.5 AST 30 ALT 23 Alkaline Phosphatase 202 H Total Protein 7.6 Albumin 3.3 L D Globulin 4.3 H Albumin/Globulin Ratio 0.8 L Lipase 87 Stool Occult Blood C. difficile Ag & Toxin Positive H 11/10/17 11/10/17 11/10/17 17:28 17:28 17:28 WBC RBC Hgb Hct MCV MCH MCHC RDW Plt Count MPV Neut % (Auto) Lymph % (Auto) [place] % (Auto) Eos % (Auto) Baso % (Auto) Neut # (Auto) Lymph # (Auto) [place] # (Auto) Eos # (Auto) Baso # (Auto) PT 16.5 H INR 1.5 APTT 33 Sodium Potassium Chloride Carbon Dioxide Anion Gap BUN Creatinine Est GFR ( Amer) Est GFR (Non-Af Amer) POC Glucose (mg/dL) Random Glucose Lactic Acid 2.5 H Calcium Total Bilirubin AST ALT Alkaline Phosphatase Total Protein Albumin Globulin Albumin/Globulin Ratio Lipase Stool Occult Blood Positive H C. difficile Ag & Toxin 11/11/17 06:10 WBC RBC Hgb Hct MCV MCH MCHC RDW Plt Count MPV Neut % (Auto) Lymph % (Auto) [place] % (Auto) Eos % (Auto) Baso % (Auto) Neut # (Auto) Lymph # (Auto) [place] # (Auto) Eos # (Auto) Baso # (Auto) PT INR APTT Sodium Potassium Chloride Carbon Dioxide Anion Gap BUN Creatinine Est GFR ( Amer) Est GFR (Non-Af Amer) POC Glucose (mg/dL) 112 H Random Glucose Lactic Acid Calcium Total Bilirubin AST ALT Alkaline Phosphatase Total Protein Albumin Globulin Albumin/Globulin Ratio Lipase Stool Occult Blood C. difficile Ag & Toxin Attending/Attestation - Attestation I have personally seen and examined this patient.: Yes I have fully participated in the care of the patient.: Yes I have reviewed all pertinent clinical information: Yes Notes (Text): Assessment * RUQ, epigastric pain for 7 days approximately the duration of the diarrhea, also found this admission to have c diff colitis, probably the cause of the pain as well, clinically not from spine, or neuropathic. * C diff colitis, with diarrhea, dehydration, hemoconcentration, leucocytosis * Chronic hepatic cyst size not changed from last admission, pt attributes above pain to the hepatic cyst, these cyst could be drained when patient kept off eliquis and bridged to heparin, but since no change in size of cyst on ct, no surrounding inflammation and pain started at the time of diarrhea hence no strong evidence to take risk of drainage. * h/o PE, gi bleeding, influenza, afib, ischemic bowel post cardiac cath s/p resection and reanastamosis, last admission. * h/o cad, pacemaker, dm Plan * Flagyl po * ivf * pain control * if pain not improved with improvement of diarrhea, cdiff reassess * GI/DVT prophylaxis * See orders for detail.
[2017-11-11] MEDS: Sodium Chloride 0.9% 1,000 ML IV SCH ×2 (01:07→07:47)
[2017-11-11] MEDS: Oxycodone/Acetaminophen 5/325 mg Tab PO PRN ×3 (03:43→13:28)
[2017-11-11] MEDS ORDERED: Tramadol 25 mg PO ONE (05:13)
[2017-11-11] MEDS: Levothyroxine 50 MCG TAB PO SCH (06:21)
[2017-11-11 07:25] LABS: BASO # 0.1 K/uL (0.0-0.2); BASO % 0.4 % (0.0-2.0); EOS % 0.3 % (0.0-4.0); HEMOGLOBIN 9.7 g/dL (11.0-16.0); LYMPH # 2.6 K/uL (1.0-4.3); LYMPH % 15.4 % (20.0-40.0); MEAN CELL VOLUME 89.3 fL (81.0-99.0); MEAN CORPUSCULAR HEMOGLOBIN 29.4 pg (27.0-31.0); MEAN CORPUSCULAR HGB CONC 32.9 g/dL (33.0-37.0); MEAN PLATELET VOLUME 7.7 fL (7.2-11.7); MONO # 2.8 K/uL (0.0-0.8); MONO % 16.3 % (0.0-10.0); NEUT # 11.5 K/uL (1.8-7.0); NEUT % 67.6 % (50.0-75.0); NRBC % 0.1 % (0.0-2.0); RBC 3.31 Mil/uL (3.80-5.20); RED CELL DISTRIBUTION WIDTH 18.2 % (11.5-14.5)
[2017-11-11 07:40] LABS: ALB/GLOB RATIO 0.7 (1.0-2.1); ALBUMIN 2.5 g/dL (3.5-5.0); ALT/SGPT 20 U/L (9-52); AST/SGOT 16 U/L (14-36); BLOOD UREA NITROGEN 15 mg/dL (7-17); CALCIUM 8.2 mg/dl (8.6-10.4); GFR AFRICAN-AMERICAN > 60; GFR NON-AFRICAN AMERICAN 54; MAGNESIUM 1.4 mg/dL (1.6-2.3)
[2017-11-11] MEDS: (Novolin R) Insulin Human Regular 100 units/ml vial SC SCH ×4 (07:48→22:24)
[2017-11-11] MEDS: Vancomycin 125 MG/5 ML SOLN (ORAL/RECTAL) PO SCH ×5 (08:21→22:00)
[2017-11-11] MEDS ORDERED: Pantoprazole 40 mg EC Tab PO SCH (10:00)
--- NOTE | 2017-11-11 12:11 | CP.PCM.PN ---
<Linda Tejada - Last Filed: 11/11/17 12:11> Objective - Vital Signs/Intake and Output Vital Signs (last 24 hours): Temp Pulse Resp BP Pulse Ox 98.3 F 105 H 20 107/65 95 11/11/17 07:23 11/11/17 07:23 11/11/17 07:23 11/11/17 07:23 11/11/17 07:23 Intake and Output: 11/11/17 11/11/17 06:59 18:59 Intake Total 740 Balance 740 - Medications Medications: Current Medications Alprazolam (Xanax) 0.25 mg PO TID PRN PRN Reason: Anxiety Stop: 11/17/17 23:11 Last Admin: 11/11/17 03:43 Dose: 0.25 mg Apixaban (Eliquis) 5 mg PO BID [facility] Last Admin: 11/11/17 09:48 Dose: 5 mg Diltiazem HCl (Cardizem) 60 mg PO Q6H [facility] Last Admin: 11/11/17 11:20 Dose: 60 mg Insulin Human Regular (Novolin R) 0 unit SC [facility] PRN Reason: Protocol Last Admin: 11/11/17 12:06 Dose: Not Given Levothyroxine Sodium (Synthroid) 50 mcg PO DAILY@0630 [facility] Last Admin: 11/11/17 06:21 Dose: 50 mcg Losartan Potassium (Cozaar) 100 mg PO DAILY [facility] Last Admin: 11/11/17 09:48 Dose: 100 mg Metronidazole (Flagyl) 500 mg PO Q8 [facility] Last Admin: 11/11/17 06:20 Dose: 500 mg Mirtazapine (Remeron) 15 mg PO HS [facility] Oxycodone/Acetaminophen (Percocet 5/325 Mg Tab) 1 tab PO Q4 PRN PRN Reason: Pain, severe (8-10) Stop: 11/13/17 23:04 Last Admin: 11/11/17 09:48 Dose: 1 tab Pantoprazole Sodium (Protonix Ec Tab) 40 mg PO DAILY [facility] Last Admin: 11/11/17 09:48 Dose: 40 mg Rosuvastatin Calcium (Crestor) 5 mg NG HS [facility] Vancomycin HCl (Vancocin (Oral Or Rectal Use)) 125 mg PO QID [facility] Last Admin: 11/11/17 11:21 Dose: 125 mg - Labs Labs: 11/11/17 07:03 11/11/17 07:03 PT 16.5 SECONDS (9.7-12.2) H 11/10/17 17:28 INR 1.5 11/10/17 17:28 APTT 33 SECONDS (21-34) 11/10/17 17:28 <Bertin Hastings - Last Filed: 11/11/17 18:17> Subjective - Date & Time of Evaluation Date of Evaluation: 11/11/17 Time of Evaluation: 16:30 - Subjective Subjective: Hospitalist Progress Note Patient was seen and examined at 4:30 PM 11/11/17 Bed 571 B with Brother Jairo present with patient's permission. 77 year old female with an extensive medical history (see below) who was admitted on night of 11/10/17 for treatment of C. diff Colitis. Please see Assessment and Plans below for details. Also on ROS: NO chest pain NO palpitations NO SOB NO Cough Abdominal pain that comes and goes involving the Right UQ and extending upto her right shoulder. States that this pain worsens if she gets up and walks Moving her bowels and earlier today it was "like brown pudding" NO burning/pain with urination NO lightheadedness/dizziness NO new changes in vision/eye pain NO new changes in hearing/ear pain NO headache Feels extremely tired Exam: General: AAOx3, NAD, I observed patient prior to entering room and she was resting comfortably not in any pain. HEENT: NCA, EOMI, PERRLA, NO pharyngeal erythema/exudte, NO thyromegaly, NO cervical/supraclavicular/submandibular lymphadenopathy Cardio: Systolic Murmur along Left Sternal Border Resp: Bilateral Lower Lung Field faint inspiratory crackles GI: midline surgical scar that is healing well, BSx4, Soft, NO HSM, NO guarding/ rebound tenderness Skin: no ulcers present on sacrum or any other amelia prominence Neuro: CN II through XII are grossly intact Assessments: 1). C. diff Colitis CT Abdomen/Pelvis 11/10/17: Enterocolitis. Interval resolution of inflammation/ fluid at the enteral anastomosis in the left upper quadrant. Interval decrease in bilateral pleural effusions and bibasilar airspace disease. Multiple hepatic cysts unchanged. Stool + for C. diff Vancomycin 125 mg PO Q6H for 10 days starting 11/11/17 Flagyl 500 mg PO Q8H for 10 days starting 11/11/[address] Dominic Zapata 2). Hx Bowel Ischemia (10/08/17: Exploratory laparotomy, small bowel resection and primary anastomosis) 3). Hx Chest Pain, LBBB, CAD, CABG, Pacemaker, Aortic Stenosis, New Onset A-fib Eiliquis 5.0 mg PO 2x/day Cardizem 60 mg PO Q6H Cozaar 100 mg PO 1x/day Crestor 5 mg PO 1x/day Add Metoprolol Succinate 25 mg PO 1x/day IF there are any issues of uncontrolled blood pressure/heart rate as the patient was on this in the past Was seen by Cardiology Dr. Childs upon last admission 4). Hx Sepsis Secondary UTI (Klebsiella and Yeast) Urine Culture 10/18/17 showed NO growth Urine Culture 10/26/17 showed Yeast species: treated with Fluconazole 100 mg IV 1x /day through 11/03/17 5). Hx Sputum (+) Yeast (10/18/17) Fluconazole 100 mg PO 1x/day and treated for 7 days 6). Hx Bilateral PE CT Angio Chest 10/28/17: Bilateral Pulmonary Emboli involving lower lobe pulmonary artery branches. NO central pulmonary embolus Eliquis 5 mg PO 2x/day 7). Hx Influenza A and Likely Hospital Acquired Pneumonia MDR Bilaterally Treated with Tamiflu, Zosyn, Ciprofloxacin, and Vancomycin during last admission Chest X Ray 11/10/17: right sided dual pacemaker, evidence of CABG, left lower base atlectasis 8). Hx Melena/BRBPR Resolved EGD 10/18/17: esophageal ulcer 7 mm nonbleeding, duodenum with superficial ulceration, adherent blood clot in jejunum Was seen by GI Dr. Boland upon last admission 9). Hx Liver Cysts Evaluated by GI Dr. Boland during last admission CT Abdomen/Pelvis 11/10/17 did NOT show any change in these cysts NO further workup at this time 10). Hx Breast CA/Lumpectomy 11). Hx HTN Cozaar 100 mg PO 1x/day Cardizem 60 mg PO Q6H Add Metoprolol Succinate 25 mg PO 1x/day IF there are any issues of uncontrolled blood pressure/heart rate as the patient was on this in the past 11). Hx HLD Crestor 5 mg PO 1x/day 12). Hx DM RISS Novolin R ACHS 13). Hx Hypernatremia Resolved 14). Hx Low Magnesium Resolved 15). Hx Hypothyroidism Levothyroxine 50 mcg PO 1x/day 16). Prophylaxis Acetaminophen 650 mg PO Q6H PRN Fever Xanax 0.25 mg PO TID PRN Anxiety Mirtazapine 15 mg PO HS for sleep Protonix 40 mg PO 1x/day Percocet 5/325 mg PO Q8H PRN Severe Pain Ensure Clear for now 3x/day Extensive conversation with the patient and her brother about the effects of narcotic on the bowels (ie their tendency to slow the bowels down) and how this would not be in the patient's best interests in light of the C. diff colitis. At no time did the patient during my exam (and explanations and answering of questions all of which lasted 45 minutes) appear to be in "15 out of 10" pain as she stated that she was. Bertin Hastings D.O. Objective - Vital Signs/Intake and Output Vital Signs (last 24 hours): Temp Pulse Resp BP Pulse Ox 97.6 F 86 20 104/60 97 11/11/17 16:08 11/11/17 16:08 11/11/17 16:08 11/11/17 16:08 11/11/17 16:08 Intake and Output: 11/11/17 11/11/17 06:59 18:59 Intake Total 740 700 Balance 740 700 - Medications Medications: Current Medications Alprazolam (Xanax) 0.25 mg PO TID PRN PRN Reason: Anxiety Stop: 11/17/17 23:11 Last Admin: 11/11/17 03:43 Dose: 0.25 mg Apixaban (Eliquis) 5 mg PO BID [facility] Last Admin: 11/11/17 09:48 Dose: 5 mg Diltiazem HCl (Cardizem) 60 mg PO Q6H [facility] Last Admin: 11/11/17 11:20 Dose: 60 mg Insulin Human Regular (Novolin R) 0 unit SC [facility] PRN Reason: Protocol Last Admin: 11/11/17 12:06 Dose: Not Given Levothyroxine Sodium (Synthroid) 50 mcg PO DAILY@0630 [facility] Last Admin: 02/23/18 06:21 Dose: 50 mcg Losartan Potassium (Cozaar) 100 mg PO DAILY [facility] Last Admin: 11/11/17 09:48 Dose: 100 mg Metronidazole (Flagyl) 500 mg PO Q8 [facility] Last Admin: 11/11/17 13:29 Dose: 500 mg Mirtazapine (Remeron) 15 mg PO HS [facility] Oxycodone/Acetaminophen (Percocet 5/325 Mg Tab) 1 tab PO Q8H PRN PRN Reason: Pain, severe (8-10) Stop: 11/14/17 16:58 Pantoprazole Sodium (Protonix Ec Tab) 40 mg PO DAILY [facility] Last Admin: 11/11/17 09:48 Dose: 40 mg Rosuvastatin Calcium (Crestor) 5 mg NG HS [facility] Vancomycin HCl (Vancocin (Oral Or Rectal Use)) 125 mg PO QID [facility] Last Admin: 11/11/17 15:00 Dose: Not Given - Labs Labs: 11/11/17 07:03 11/11/17 07:03 PT 16.5 SECONDS (9.7-12.2) H 11/10/17 17:28 INR 1.5 11/10/17 17:28 APTT 33 SECONDS (21-34) 11/10/17 17:28
[2017-11-11] MEDS: Magnesium Sulfate 1 gm in D5W 1 GM/100 ML BAG IVPB SCH (13:59)
[2017-11-11] MEDS ORDERED: Oxycodone/Acetaminophen 5/325 mg Tab PO PRN ×2 (16:57→16:58)
--- NOTE | 2017-11-11 18:34 | CP.PCM.CON ---
History of Present Illness - History of Present Illness History of Present Illness: 77 year old Female presents to the ED with complaints of abdominal pain that radiates to her right flank and back. Patient reports the pain started 1 week ago and is constant. reports having diarrhea starting Tuesday, that progressively worsened. She had 10 episodes of diarrhea yesterday. Patient states she has severe pain that she cannot bear. Patient denies having chest pain, palpitations, shortness of breath, nausea, vomiting, fevers, headaches, dizziness, dysuria, hematuria, melena, and hematochezia. PMD: Tony PMHx: ischemic bowel resection, B/L PE (10/2017), HTN, HLD, DM, CAD, CABG, Hx of Breast Cancer (s/p lumpectomy) and Hypothyroidism PSHx: ischemic bowel resection (10/08/17), Pacemaker (placed on the right due to Hx Breast Cancer) All: NKDA SocHx: Denied x 3 FHx: Strong Cardiac history, most family member of cardiac complications Medications: See EMR Review of Systems - Review of Systems All systems: reviewed and no additional remarkable complaints except - Constitutional Constitutional: As Per HPI - EENT Eyes: absent: As Per HPI, Blind Spots, Blurred Vision, Change in Vision, Decreased Night Vision, Diplopia, Discharge, Dry Eye, Exophthalmos, Floaters, Irritation, Itchy Eyes, Loss of Peripheral Vision, Pain, Photophobia, Requires Corrective Lenses, Sees Flashes, Spots in Vision, Tunnel Vision, Other Visual Disturbances, Loss of Vision, Other Ears: absent: As Per HPI, Decreased Hearing, Ear Discharge, Ear Pain, Tinnitus, Abnormal Hearing, Disequilibrium, Dizziness, Other Nose/Mouth/Throat: absent: As Per HPI, Epistaxis, Nasal Congestion, Nasal Discharge, Nasal Obstruction, Nasal Trauma, Nose Pain, Post Nasal Drip, Sinus Pain, Sinus Pressure, Bleeding Gums, Change in Voice, Dental Pain, Dry Mouth, Dysphagia, Halitosis, Hoarsness, Lip Swelling, Mouth Lesions, Mouth Pain, Odynophagia, Sore Throat, Throat Swelling, Tongue Swelling, Facial Pain, Neck Pain, Neck Mass, Other - Breasts Breasts: absent: As Per HPI, Change in Shape, Mass, Pain, Nipple Discharge, Nipple Inversion, Skin Changes, Swelling, Other - Cardiovascular Cardiovascular: As Per HPI - Respiratory Respiratory: absent: As Per HPI, Cough, Dyspnea, Hemoptysis, Dyspnea on Exertion , Wheezing, Snoring, Stridor, Pain on Inspiration, Chest Congestion, Excessive Mucous Production, Change in Mucous Color, Pain with Coughing, Other - Gastrointestinal Gastrointestinal: As Per HPI, Abdominal Pain - Genitourinary Genitourinary: absent: As Per HPI, Change in Urinary Stream, Difficulty Urinating, Dysuria, Flank Pain, Hematuria, Pyuria, Nocturia, Urinary Incontinence, Urinary Frequency, Urinary Hesitance, Urinary Urgency, Voiding Freq/Small Amts, Freq UTI, Hx Renal/Bladder Calculi, Hx /Renal Surgery, Bladder Distension, Other - Reproductive: Female Reproductive:Female: absent: As Per HPI, Amenorrhea, Amenorrhea/ Control, Currently Menstual, Cycle <21 Days, Cycle >35 Days, Cycle Variable, Menses 1-7 Days, Menses >/= 8 Days, Menses Variable, Cycle > 4 Weeks Between, No Menses for 6 Months, Heavy Menses, Light Menses, Normal Menses, Spotting Between Cycles , S/P Hysterectomy, Menopausal, Post Menopausal, Premenarche, Abnormal Vaginal Bleeding, Dysmenorrhea, Dyspareunia, Genital Lesions, Genital Pruritis, Pelvic Pain, Prolapse Symptoms, Sexual Dysfunction, Vaginal Discharge, Vaginal Dryness , Vaginal Odor, Vaginal Pruritis, Other - Menstruation Menstruation: absent: As Per HPI, Amenorrhea, Amenorrhea/ Control, Currently Menstual, Cycle <21 Days, Cycle >35 Days, Cycle Variable, Menses 1-7 Days, Menses >/= 8 Days, Menses Variable, Cycle > 4 Weeks Between, No Menses for 6 Months, Heavy Menses, Light Menses, Normal Menses, Spotting Between Cycles , S/P Hysterectomy, Menopausal, Post Menopausal, Premenarche, Abnormal Vaginal Bleeding, Dysmenorrhea, Other - Musculoskeletal Musculoskeletal: absent: As Per HPI, Abnormal Gait, Arthralgias, Atrophy, Back Pain, Deformity, Joint Swelling, Limited Range of Motion, Loss of Height, Muscle Cramps, Muscle Weakness, Myalgias, Neck Pain, Numbness, Radiating Pain into Limb, Stiffness, Tingling, Other - Integumentary Integumentary: absent: As Per HPI, Acne, Alopecia, Bleeding Lesions, Change in Hair, Change in Nails, Change in Pigmentation, Changing Lesions, Dry Skin, Erythema, Furuncle, Hirsutism, Lesions, New Lesions, Non-Healing Lesions, Photosensitivity, Pruritus, Rash, Skin Pain, Skin Ulcer, Sores, Striae, Swelling , Unusual Bruising, Wounds, Jaundice, Other - Neurological Neurological: absent: As Per HPI, Abnormal Gait, Abnormal Hearing, Abnormal Movements, Abnormal Speech, Behavioral Changes, Burning Sensations, Confusion, Convulsions, Disequilibrium, Dizziness, Numbness, Focal Weakness, Frequent Falls , Headaches, Lack of Coordination, Loss of Vision, Memory Loss, Paresthesias, Radicular Pain, Restless Legs, Sensory Deficit, Syncope, Tingling, Tremor, Vertigo, Weakness, Other Visual Disturbances, Other - Psychiatric Psychiatric: absent: As Per HPI, Abnormal Sleep Pattern, Anhedonia, Anxiety, Auditory Hallucinations, Behavioral Changes, Change in Appetite, Change in Libido, Confusion, Depression, Difficulty Concentrating, Hallucinations, Homicidal Ideation, Hopelessness, Irritability, Memory Loss, Mood Swings, Panic Attacks, Paranoia, Suicidal Ideation, Visual Hallucinations, Tactile Hallucinations, Other - Endocrine Endocrine: absent: As Per HPI, Change in Body Appearance, Change in Libido, Cold Intolorance, Deepening of Voice, Excessive Sweating, Fatigue, Flushing, Heat Intolorance, Increase in Ring/Shoe/Hat Size, Palpitations, Polydipsia, Polyphagia, Polyuria, Other - Hematologic/Lymphatic Hematologic: absent: As Per HPI, Easy Bleeding, Easy Bruising, Lymphadenopathy, Other Past Patient History - Past Medical History & Family History Past Medical History?: Yes - Past Social History Smoking Status: Former Smoker - CARDIAC Hx Cardiac Disorders: Yes (CAD,CABG,PACEMAKER) Hx Hypercholesterolemia: Yes Hx Hypertension: Yes - PULMONARY Hx Chronic Obstructive Pulmonary Disease (COPD): Yes - NEUROLOGICAL Hx Neurological Disorder: Yes - HEENT Hx HEENT Problems: Yes Hx Cataracts: Yes (removed bilateral 2011) - RENAL Hx Chronic Kidney Disease: No - ENDOCRINE/METABOLIC Hx Diabetes Mellitus Type 2: Yes Hx Hypothyroidism: Yes - HEMATOLOGICAL/ONCOLOGICAL Hx Blood Disorders: Yes Hx Cancer: Yes (LEFT BREAST-RADIATION TX. DONE) - INTEGUMENTARY Hx Dermatological Problems: Yes Other/Comment: CANCER LEFT BREAST-LUMPECTOMY DONE - MUSCULOSKELETAL/RHEUMATOLOGICAL Hx Arthritis: Yes (KNEE PAIN) - GASTROINTESTINAL Hx Gastrointestinal Disorders: No - GENITOURINARY/GYNECOLOGICAL Hx Genitourinary Disorders: No - PSYCHIATRIC Hx Psychophysiologic Disorder: Yes Hx Anxiety: Yes Hx Depression: Yes Hx Substance Use: No - SURGICAL HISTORY Hx Surgeries: Yes Hx Coronary Artery Bypass Graft: Yes (jan 17 2013 TRIPLE) Hx Coronary Stent: Yes Hx Tonsillectomy: Yes - ANESTHESIA Hx Anesthesia: Yes Hx Anesthesia Reactions: No Hx Malignant Hyperthermia: No Meds Allergies/Adverse Reactions: Allergies Allergy/AdvReac Type Severity Reaction Status Date / Time No Known Allergies Allergy Verified 10/04/17 17:45 - Medications Medications: Current Medications Alprazolam (Xanax) 0.25 mg PO TID PRN PRN Reason: Anxiety Stop: 11/17/17 23:11 Last Admin: 11/11/17 03:43 Dose: 0.25 mg Apixaban (Eliquis) 5 mg PO BID [facility] Last Admin: 11/11/17 09:48 Dose: 5 mg Diltiazem HCl (Cardizem) 60 mg PO Q6H [facility] Last Admin: 11/11/17 11:20 Dose: 60 mg Insulin Human Regular (Novolin R) 0 unit SC [facility] PRN Reason: Protocol Last Admin: 11/11/17 12:06 Dose: Not Given Levothyroxine Sodium (Synthroid) 50 mcg PO DAILY@0630 [facility] Last Admin: 11/11/17 06:21 Dose: 50 mcg Losartan Potassium (Cozaar) 100 mg PO DAILY [facility] Last Admin: 11/11/17 09:48 Dose: 100 mg Metronidazole (Flagyl) 500 mg PO Q8 [facility] Last Admin: 11/11/17 13:29 Dose: 500 mg Mirtazapine (Remeron) 15 mg PO HS [facility] Oxycodone/Acetaminophen (Percocet 5/325 Mg Tab) 1 tab PO Q8H PRN PRN Reason: Pain, severe (8-10) Stop: 11/14/17 16:58 Pantoprazole Sodium (Protonix Ec Tab) 40 mg PO DAILY [facility] Last Admin: 11/11/17 09:48 Dose: 40 mg Rosuvastatin Calcium (Crestor) 5 mg NG HS [facility] Vancomycin HCl (Vancocin (Oral Or Rectal Use)) 125 mg PO QID [facility] Last Admin: 11/11/17 15:00 Dose: Not Given Physical Exam - Constitutional Appears: Non-toxic, Chronically Ill - Head Exam Head Exam: NORMOCEPHALIC - Eye Exam Eye Exam: absent: Scleral icterus - ENT Exam ENT Exam: Mucous Membranes Dry - Neck Exam Neck exam: Negative for: Lymphadenopathy - Respiratory Exam Respiratory Exam: Decreased Breath Sounds, Clear to Auscultation Bilateral - Cardiovascular Exam Cardiovascular Exam: REGULAR RHYTHM, +S1, +S2 - GI/Abdominal Exam GI & Abdominal Exam: Diminished Bowel Sounds, Distended, Guarding, Soft, Tenderness. absent: Rebound, Rigid - Rectal Exam Rectal Exam: Deferred - Exam Exam: NORMAL INSPECTION - Extremities Exam Extremities exam: Positive for: pedal pulses present. Negative for: calf tenderness, pedal edema, tenderness - Back Exam Back exam: absent: CVA tenderness (L), CVA tenderness (R), paraspinal tenderness - Neurological Exam Neurological exam: Alert, CN II-XII Intact, Oriented x3, Reflexes Normal - Psychiatric Exam Psychiatric exam: Depressed - Skin Skin Exam: Dry Results - Vital Signs Recent Vital Signs: Last Vital Signs Temp 97.6 F 11/11/17 16:08 Pulse 86 11/11/17 16:08 Resp 20 11/11/17 16:08 BP 104/60 11/11/17 16:08 Pulse Ox 97 11/11/17 16:08 - Labs Result Diagrams: 11/11/17 07:03 11/11/17 07:03 Labs: Laboratory Results - last 24 hr 11/10/17 11/11/17 11/11/17 17:06 06:10 07:03 WBC 17.0 H RBC 3.31 L Hgb 9.7 L Hct 29.6 L MCV 89.3 MCH 29.4 MCHC 32.9 L RDW 18.2 H Plt Count 665 H D MPV 7.7 Neut % (Auto) 67.6 Lymph % (Auto) 15.4 L [place] % (Auto) 16.3 H Eos % (Auto) 0.3 Baso % (Auto) 0.4 Neut # (Auto) 11.5 H Lymph # (Auto) 2.6 [place] # (Auto) 2.8 H Eos # (Auto) 0.0 Baso # (Auto) 0.1 Sodium Potassium Chloride Carbon Dioxide Anion Gap BUN Creatinine Est GFR ( Amer) Est GFR (Non-Af Amer) POC Glucose (mg/dL) 112 H Random Glucose Calcium Phosphorus Magnesium Total Bilirubin AST ALT Alkaline Phosphatase Total Protein Albumin Globulin Albumin/Globulin Ratio C. difficile Ag & Toxin Positive H 11/11/17 11/11/17 11/11/17 07:03 12:01 17:21 WBC RBC Hgb Hct MCV MCH MCHC RDW Plt Count MPV Neut % (Auto) Lymph % (Auto) [place] % (Auto) Eos % (Auto) Baso % (Auto) Neut # (Auto) Lymph # (Auto) [place] # (Auto) Eos # (Auto) Baso # (Auto) Sodium 134 Potassium 4.2 Chloride 100 Carbon Dioxide 24 Anion Gap 13 BUN 15 Creatinine 1.0 Est GFR ( Amer) > 60 Est GFR (Non-Af Amer) 54 POC Glucose (mg/dL) 114 H 127 H Random Glucose 101 Calcium 8.2 L Phosphorus 5.2 H Magnesium 1.4 L Total Bilirubin 0.3 AST 16 ALT 20 Alkaline Phosphatase 157 H D Total Protein 6.0 L Albumin 2.5 L D Globulin 3.5 Albumin/Globulin Ratio 0.7 L C. difficile Ag & Toxin Assessment & Plan (1) Abdominal pain Status: Acute (2) C. difficile colitis Status: Acute (3) Diabetes mellitus Status: Acute (4) Enterocolitis Status: Acute - Assessment and Plan (Free Text) Assessment: cont iv flagyl and po vanco add difcid if no response to rx
[2017-11-12] MEDS: Levothyroxine 50 MCG TAB PO SCH (06:04)
[2017-11-12] MEDS: (Novolin R) Insulin Human Regular 100 units/ml vial SC SCH ×4 (07:54→21:22)
[2017-11-12 08:17] LABS: BASO # 0.1 K/uL (0.0-0.2); BASO % 0.5 % (0.0-2.0); EOS # 0.2 K/uL (0.0-0.7); EOS % 1.7 % (0.0-4.0); HEMOGLOBIN 9.4 g/dL (11.0-16.0); LYMPH # 2.6 K/uL (1.0-4.3); LYMPH % 18.9 % (20.0-40.0); MEAN CORPUSCULAR HEMOGLOBIN 29.5 pg (27.0-31.0); MEAN CORPUSCULAR HGB CONC 33.2 g/dL (33.0-37.0); MEAN PLATELET VOLUME 7.4 fL (7.2-11.7); MONO # 2.4 K/uL (0.0-0.8); MONO % 17.3 % (0.0-10.0); NEUT # 8.5 K/uL (1.8-7.0); NEUT % 61.6 % (50.0-75.0); RBC 3.2 Mil/uL (3.80-5.20); RED CELL DISTRIBUTION WIDTH 17.7 % (11.5-14.5); WHITE BLOOD COUNT 13.8 K/uL (4.8-10.8)
[2017-11-12 08:49] LABS: ALB/GLOB RATIO 0.7 (1.0-2.1); ALBUMIN 2.4 g/dL (3.5-5.0); ALT/SGPT 23 U/L (9-52); AST/SGOT 12 U/L (14-36); BLOOD UREA NITROGEN 14 mg/dL (7-17); CALCIUM 8.7 mg/dl (8.6-10.4); GFR AFRICAN-AMERICAN > 60; GFR NON-AFRICAN AMERICAN > 60; MAGNESIUM 1.9 mg/dL (1.6-2.3)
[2017-11-12] MEDS: Lactobacillus Acidophilus 500 MU Cap PO SCH ×2 (09:24→18:03)
[2017-11-12] MEDS: Vancomycin 125 MG/5 ML SOLN (ORAL/RECTAL) PO SCH ×4 (09:25→21:16)
--- NOTE | 2017-11-12 09:38 | CP.PCM.PN ---
<Vince Stockton S - Last Filed: 11/12/17 11:53> Subjective - Date & Time of Evaluation Date of Evaluation: 11/12/17 Time of Evaluation: 09:36 - Subjective Subjective: Progress note for Dr. Hastings's Service Pt seen and examined at bedside. She is tearful and anxious. Her speech is tangential and she complains of losses she has encountered throughout her lifetime. She states that she is in 10+ however she is laying down, speaking normally. She appears anxious about a variety of topics. Objective - Vital Signs/Intake and Output Vital Signs (last 24 hours): Temp Pulse Resp BP Pulse Ox 97.7 F 90 20 118/64 97 11/12/17 09:17 11/12/17 09:17 11/12/17 09:17 11/12/17 09:17 11/12/17 09:17 Intake and Output: 11/12/17 11/12/17 06:59 18:59 Intake Total 400 Balance 400 - Medications Medications: Current Medications Alprazolam (Xanax) 0.25 mg PO TID PRN PRN Reason: Anxiety Stop: 11/17/17 23:11 Last Admin: 11/11/17 03:43 Dose: 0.25 mg Apixaban (Eliquis) 5 mg PO BID [facility] Last Admin: 11/12/17 09:25 Dose: 5 mg Diltiazem HCl (Cardizem) 60 mg PO Q6H [facility] Last Admin: 11/12/17 05:14 Dose: 60 mg Famotidine (Pepcid) 20 mg PO DAILY [facility] Last Admin: 11/12/17 09:24 Dose: 20 mg Insulin Human Regular (Novolin R) 0 unit SC [facility] PRN Reason: Protocol Last Admin: 11/12/17 07:54 Dose: Not Given Lactobacillus Acidophilus (Bacid Acidophilus) 1 cap PO BID [facility] Last Admin: 11/12/17 09:24 Dose: 1 cap Levothyroxine Sodium (Synthroid) 50 mcg PO DAILY@0630 [facility] Last Admin: 11/12/17 06:04 Dose: 50 mcg Losartan Potassium (Cozaar) 100 mg PO DAILY [facility] Last Admin: 11/12/17 09:25 Dose: 100 mg Metronidazole (Flagyl) 500 mg PO Q8 [facility] Last Admin: 11/12/17 05:14 Dose: 500 mg Mirtazapine (Remeron) 15 mg PO HS [facility] Last Admin: 11/11/17 21:59 Dose: 15 mg Oxycodone/Acetaminophen (Percocet 5/325 Mg Tab) 1 tab PO Q8H PRN PRN Reason: Pain, severe (8-10) Stop: 11/14/17 16:58 Last Admin: 11/12/17 05:14 Dose: 1 tab Rosuvastatin Calcium (Crestor) 5 mg NG HS [facility] Last Admin: 11/11/17 21:59 Dose: 5 mg Vancomycin HCl (Vancocin (Oral Or Rectal Use)) 125 mg PO QID [facility] Last Admin: 11/12/17 09:25 Dose: 125 mg - Labs Labs: 11/12/17 08:07 11/12/17 08:07 PT 16.5 SECONDS (9.7-12.2) H 11/10/17 17:28 INR 1.5 11/10/17 17:28 APTT 33 SECONDS (21-34) 11/10/17 17:28 - Constitutional Appears: No Acute Distress - Head Exam Head Exam: ATRAUMATIC, NORMOCEPHALIC - Eye Exam Eye Exam: EOMI, PERRL - ENT Exam ENT Exam: Mucous Membranes Moist - Respiratory Exam Respiratory Exam: Clear to Ausculation Bilateral - Cardiovascular Exam Cardiovascular Exam: REGULAR RHYTHM - GI/Abdominal Exam GI & Abdominal Exam: Soft. absent: Tenderness - Neurological Exam Neurological Exam: Alert, Awake, CN II-XII Intact, Oriented x3 - Psychiatric Exam Psychiatric exam: Anxious - Skin Skin Exam: Dry, Warm Assessment and Plan - Assessment and Plan (Free Text) Plan: 1). C. diff Colitis CT Abdomen/Pelvis 11/10/17: Enterocolitis. Interval resolution of inflammation/ fluid at the enteral anastomosis in the left upper quadrant. Interval decrease in bilateral pleural effusions and bibasilar airspace disease. Multiple hepatic cysts unchanged. Stool + for C. diff Vancomycin 125 mg PO Q6H for 10 days starting 11/11/17 Flagyl 500 mg PO Q8H for 10 days starting 11/11/[address] Dominic Zapata- rosangela appreciated cont iv flagyl and po vanco add difcid if no response to rx WBC: 13.8 2). Hyponatremia Likely due to diarrhea Continue to monitor NA 131 11/12/17 Liquid diet currently 3). Hx Bowel Ischemia (10/08/17: Exploratory laparotomy, small bowel resection and primary anastomosis) No acute intervention 4). Hx Chest Pain, LBBB, CAD, CABG, Pacemaker, Aortic Stenosis, New Onset A-fib Eiliquis 5.0 mg PO 2x/day Cardizem 60 mg PO Q6H Cozaar 100 mg PO 1x/day Crestor 5 mg PO 1x/day Add Metoprolol Succinate 25 mg PO 1x/day IF there are any issues of uncontrolled blood pressure/heart rate as the patient was on this in the past Was seen by Cardiology Dr. Chlids upon last admission 5). Hx Sepsis Secondary UTI (Klebsiella and Yeast) Urine Culture 10/18/17 showed NO growth Urine Culture 10/26/17 showed Yeast species: treated with Fluconazole 100 mg IV 1x /day through 11/03/17 6). Hx Sputum (+) Yeast (10/18/17) Fluconazole 100 mg PO 1x/day and treated for 7 days 7). Hx Bilateral PE CT Angio Chest 10/28/17: Bilateral Pulmonary Emboli involving lower lobe pulmonary artery branches. NO central pulmonary embolus Eliquis 5 mg PO 2x/day 8). Hx Influenza A and Likely Hospital Acquired Pneumonia MDR Bilaterally Treated with Tamiflu, Zosyn, Ciprofloxacin, and Vancomycin during last admission Chest X Ray 11/10/17: right sided dual pacemaker, evidence of CABG, left lower base atlectasis 9). Hx Melena/BRBPR Resolved EGD 10/18/17: esophageal ulcer 7 mm nonbleeding, duodenum with superficial ulceration, adherent blood clot in jejunum Was seen by GI Dr. Boland upon last admission 10). Hx Liver Cysts Evaluated by GI Dr. Boland during last admission CT Abdomen/Pelvis 11/10/17 did NOT show any change in these cysts NO further workup at this time 11). Hx Breast CA/Lumpectomy stable No acute intervention 12). Hx HTN Cozaar 100 mg PO 1x/day Cardizem 60 mg PO Q6H Add Metoprolol Succinate 25 mg PO 1x/day IF there are any issues of uncontrolled blood pressure/heart rate as the patient was on this in the past 13). Hx HLD Crestor 5 mg PO 1x/day 14). Hx DM RISS Novolin R ACHS 15). Hx Hypernatremia Resolved 16). Hx Low Magnesium Resolved 17). Hx Hypothyroidism Levothyroxine 50 mcg PO 1x/day 18). Prophylaxis Acetaminophen 650 mg PO Q6H PRN Fever Xanax 0.25 mg PO TID PRN Anxiety Mirtazapine 15 mg PO HS for sleep Protonix 40 mg PO 1x/day Percocet 5/325 mg PO Q8H PRN Severe Pain Ensure Clear for now 3x/day Case discussed with Dr. Venkata Stockton D.O. <Bertin Hastings - Last Filed: 11/12/17 15:49> Objective - Vital Signs/Intake and Output Vital Signs (last 24 hours): Temp Pulse Resp BP Pulse Ox 97.7 F 90 20 118/64 97 11/12/17 09:17 11/12/17 09:17 11/12/17 09:17 11/12/17 09:17 11/12/17 09:17 Intake and Output: 11/12/17 11/12/17 06:59 18:59 Intake Total 400 Balance 400 - Medications Medications: Current Medications Alprazolam (Xanax) 0.25 mg PO TID PRN PRN Reason: Anxiety Stop: 11/17/17 23:11 Last Admin: 11/11/17 03:43 Dose: 0.25 mg Apixaban (Eliquis) 5 mg PO BID [facility] Last Admin: 11/12/17 09:25 Dose: 5 mg Diltiazem HCl (Cardizem) 60 mg PO Q6H [facility] Last Admin: 11/12/17 12:20 Dose: 60 mg Famotidine (Pepcid) 20 mg PO DAILY [facility] Last Admin: 11/12/17 09:24 Dose: 20 mg Metronidazole (Flagyl) 500 mg in 100 mls @ 100 mls/hr IVPB Q8 [facility] Insulin Human Regular (Novolin R) 0 unit SC [facility] PRN Reason: Protocol Last Admin: 11/12/17 12:10 Dose: Not Given Lactobacillus Acidophilus (Bacid Acidophilus) 1 cap PO BID [facility] Last Admin: 11/12/17 09:24 Dose: 1 cap Levothyroxine Sodium (Synthroid) 50 mcg PO DAILY@0630 [facility] Last Admin: 11/12/17 06:04 Dose: 50 mcg Losartan Potassium (Cozaar) 100 mg PO DAILY [facility] Last Admin: 11/12/17 09:25 Dose: 100 mg Mirtazapine (Remeron) 15 mg PO HS [facility] Last Admin: 11/11/17 21:59 Dose: 15 mg Oxycodone/Acetaminophen (Percocet 5/325 Mg Tab) 1 tab PO Q8H PRN PRN Reason: Pain, severe (8-10) Stop: 11/14/17 16:58 Last Admin: 11/12/17 05:14 Dose: 1 tab Rosuvastatin Calcium (Crestor) 5 mg NG HS [facility] Last Admin: 11/11/17 21:59 Dose: 5 mg Vancomycin HCl (Vancocin (Oral Or Rectal Use)) 125 mg PO QID [facility] Last Admin: 11/12/17 13:57 Dose: 125 mg - Labs Labs: 11/12/17 08:07 11/12/17 08:07 PT 16.5 SECONDS (9.7-12.2) H 11/10/17 17:28 INR 1.5 11/10/17 17:28 APTT 33 SECONDS (21-34) 11/10/17 17:28 Attending/Attestation - Attestation I have personally seen and examined this patient.: Yes I have fully participated in the care of the patient.: Yes I have reviewed all pertinent clinical information, including history, physical exam and plan: Yes Notes (Text): 11/12/17 15:34 Hospitalist Progress Note Patient was seen and examined at 3:00 PM 11/12/17 Bed 571 B with Brother Jairo present with patient's permission. 77 year old female with an extensive medical history (see below) who was admitted on night of 11/10/17 for treatment of C. diff Colitis. Please see Assessment and Plans below for details. Also on ROS: NO chest pain NO palpitations NO SOB NO Cough Abdominal pain that comes and goes involving the Right UQ and extending up to her right shoulder. Moving her bowels 4x today and watery to soft NO burning/pain with urination NO lightheadedness/dizziness NO new changes in vision/eye pain NO new changes in hearing/ear pain NO headache She continues to feel tire Exam: General: AAOx3, NAD, She does not appear to be in any pain and carrying a full conversation without appearing to be uncomfortable HEENT: NCA, EOMI, PERRLA, NO pharyngeal erythema/exudte, NO thyromegaly, NO cervical/supraclavicular/submandibular lymphadenopathy Cardio: Systolic Murmur along Left Sternal Border Resp: Bilateral Lower Lung Field faint inspiratory crackles GI: midline surgical scar that is healing well, BSx4, Soft, NO HSM, NO guarding/ rebound tenderness, I shook the entire abdomen while patient was speaking and there was NO pain illicited Skin: no ulcers present on sacrum or any other amelia prominence Neuro: CN II through XII are grossly intact Assessments: 1). C. diff Colitis CT Abdomen/Pelvis 11/10/17: Enterocolitis. Interval resolution of inflammation/ fluid at the enteral anastomosis in the left upper quadrant. Interval decrease in bilateral pleural effusions and bibasilar airspace disease. Multiple hepatic cysts unchanged. Stool + for C. diff Vancomycin 125 mg PO Q6H for 10 days starting 11/11/17 through 11/20/17 Flagyl 500 mg IV Q8H for 10 days starting 11/11/17 through 11/20/[address] Dominic Zapata 2). Hx Bowel Ischemia (10/08/17: Exploratory laparotomy, small bowel resection and primary anastomosis) 3). Hx Chest Pain, LBBB, CAD, CABG, Pacemaker, Aortic Stenosis, New Onset A-fib Eiliquis 5.0 mg PO 2x/day Cardizem 60 mg PO Q6H Cozaar 100 mg PO 1x/day Crestor 5 mg PO 1x/day Add Metoprolol Succinate 25 mg PO 1x/day IF there are any issues of uncontrolled blood pressure/heart rate as the patient was on this in the past Was seen by Cardiology Dr. Childs upon last admission 4). Hx Sepsis Secondary UTI (Klebsiella and Yeast) Urine Culture 10/18/17 showed NO growth Urine Culture 10/26/17 showed Yeast species: treated with Fluconazole 100 mg IV 1x /day through 11/03/17 5). Hx Sputum (+) Yeast (10/18/17) Fluconazole 100 mg PO 1x/day and treated for 7 days 6). Hx Bilateral PE CT Angio Chest 10/28/17: Bilateral Pulmonary Emboli involving lower lobe pulmonary artery branches. NO central pulmonary embolus Eliquis 5 mg PO 2x/day 7). Hx Influenza A and Likely Hospital Acquired Pneumonia MDR Bilaterally Treated with Tamiflu, Zosyn, Ciprofloxacin, and Vancomycin during last admission Chest X Ray 11/10/17: right sided dual pacemaker, evidence of CABG, left lower base atlectasis 8). Hx Melena/BRBPR Resolved EGD 10/18/17: esophageal ulcer 7 mm nonbleeding, duodenum with superficial ulceration, adherent blood clot in jejunum Was seen by GI Dr. Boland upon last admission 9). Hx Liver Cysts Evaluated by GI Dr. Boland during last admission CT Abdomen/Pelvis 11/10/17 did NOT show any change in these cysts NO further workup at this time 10). Hx Breast CA/Lumpectomy 11). Hx HTN Cozaar 100 mg PO 1x/day Cardizem 60 mg PO Q6H Add Metoprolol Succinate 25 mg PO 1x/day IF there are any issues of uncontrolled blood pressure/heart rate as the patient was on this in the past 11). Hx HLD Crestor 5 mg PO 1x/day 12). Hx DM RISS Novolin R ACHS 13). Hx Hypernatremia Resolved 14). Hx Low Magnesium Resolved 15). Hx Hypothyroidism Levothyroxine 50 mcg PO 1x/day 16). Prophylaxis Acetaminophen 650 mg PO Q6H PRN Fever/Pain Xanax 0.25 mg PO TID PRN Anxiety Mirtazapine 15 mg PO HS for sleep Protonix 40 mg PO 1x/day Percocet 5/325 mg PO Q8H was discontinued 11/12/17 Ensure Clear for now 3x/day 11/11/17: Extensive conversation with the patient and her brother about the effects of narcotic on the bowels (ie their tendency to slow the bowels down) and how this would not be in the patient's best interests in light of the C. diff colitis. At no time did the patient during my exam (and explanations and answering of questions all of which lasted 45 minutes) appear to be in "15 out of 10" pain as she stated that she was. 11/12/17: Again explained to patient the importance of not using narcotic pain medication in light of NO pain illicited upon exam. She was encouraged to continue the Ensure Clear Shakes (I again spoke with Nurse this time Nurse Hanna to make sure that dietary was bringing these shakes 3x/day) and brother Jairo will be bringing soup from home. She was also encouraged to keep hydrated. She was notified that the Percocet was discontinued. Bertin Hastings D.O.
[2017-11-12] MEDS ORDERED: Oxycodone/Acetaminophen 5/325 mg Tab PO ONE (11:00)
[2017-11-12] MEDS: metroNIDAZOLE IV 500 mg/100 ml 500 MG/100 ML BAG IVPB SCH (21:15)
[2017-11-13] MEDS: metroNIDAZOLE IV 500 mg/100 ml 500 MG/100 ML BAG IVPB SCH ×3 (05:41→21:08)
[2017-11-13] MEDS: Levothyroxine 50 MCG TAB PO SCH (05:41)
[2017-11-13] MEDS: (Novolin R) Insulin Human Regular 100 units/ml vial SC SCH ×4 (07:26→23:02)
[2017-11-13 08:33] LABS: BASO # 0.1 K/uL (0.0-0.2); BASO % 0.4 % (0.0-2.0); EOS # 0.1 K/uL (0.0-0.7); EOS % 0.8 % (0.0-4.0); HEMOGLOBIN 9.7 g/dL (11.0-16.0); LYMPH # 4.9 K/uL (1.0-4.3); LYMPH % 36.3 % (20.0-40.0); MEAN CORPUSCULAR HEMOGLOBIN 28.7 pg (27.0-31.0); MEAN CORPUSCULAR HGB CONC 31.8 g/dL (33.0-37.0); MEAN PLATELET VOLUME 7.6 fL (7.2-11.7); MONO # 1.8 K/uL (0.0-0.8); MONO % 13.7 % (0.0-10.0); NEUT # 6.5 K/uL (1.8-7.0); NEUT % 48.8 % (50.0-75.0); NRBC % 0.1 % (0.0-2.0); RED CELL DISTRIBUTION WIDTH 18.1 % (11.5-14.5); WHITE BLOOD COUNT 13.4 K/uL (4.8-10.8)
[2017-11-13 08:43] LABS: PLATELET COUNT 1375 K/uL (130-400)
[2017-11-13 08:54] LABS: ALB/GLOB RATIO 0.7 (1.0-2.1); ALBUMIN 2.5 g/dL (3.5-5.0); ALT/SGPT 16 U/L (9-52); AST/SGOT 15 U/L (14-36); BLOOD UREA NITROGEN 9 mg/dL (7-17); CALCIUM 8.8 mg/dl (8.6-10.4); GFR AFRICAN-AMERICAN > 60; GFR NON-AFRICAN AMERICAN > 60; MAGNESIUM 1.8 mg/dL (1.6-2.3)
--- NOTE | 2017-11-13 10:11 | CP.PCM.PN ---
<Vince Stockton S - Last Filed: 11/13/17 10:09> Subjective - Date & Time of Evaluation Date of Evaluation: 11/13/17 Time of Evaluation: 10:09 - Subjective Subjective: Progress note for Dr. Hastings's Service Pt seen and examined at bedside. She continues to complain about an array of topics without specificity. She states that she is in extreme pain but is laying comfortably and speaking without any difficulty. Prior to entering the room, observation of the patient revealed calm, no distress, laying comfortably in bed. Objective - Vital Signs/Intake and Output Vital Signs (last 24 hours): Temp Pulse Resp BP Pulse Ox 98.8 F 97 H 20 119/63 95 11/12/17 23:55 11/12/17 23:55 11/12/17 23:55 11/12/17 23:55 11/12/17 23:55 Intake and Output: 11/13/17 11/13/17 06:59 18:59 Intake Total 100 Balance 100 - Medications Medications: Current Medications Alprazolam (Xanax) 0.25 mg PO TID PRN PRN Reason: Anxiety Stop: 11/17/17 23:11 Last Admin: 11/11/17 03:43 Dose: 0.25 mg Apixaban (Eliquis) 5 mg PO BID [facility] Last Admin: 11/12/17 18:03 Dose: 5 mg Diltiazem HCl (Cardizem) 60 mg PO Q6H [facility] Last Admin: 11/13/17 05:41 Dose: 60 mg Famotidine (Pepcid) 20 mg PO DAILY [facility] Last Admin: 11/12/17 09:24 Dose: 20 mg Metronidazole (Flagyl) 500 mg in 100 mls @ 100 mls/hr IVPB Q8 [facility] Last Admin: 11/13/17 05:41 Dose: 100 mls/hr Insulin Human Regular (Novolin R) 0 unit SC ACHS [facility] PRN Reason: Protocol Last Admin: 11/13/17 07:26 Dose: Not Given Lactobacillus Acidophilus (Bacid Acidophilus) 1 cap PO BID [facility] Last Admin: 11/12/17 18:03 Dose: 1 cap Levothyroxine Sodium (Synthroid) 50 mcg PO DAILY@0630 [facility] Last Admin: 11/13/17 05:41 Dose: 50 mcg Losartan Potassium (Cozaar) 100 mg PO DAILY [facility] Last Admin: 11/12/17 09:25 Dose: 100 mg Mirtazapine (Remeron) 15 mg PO HS [facility] Last Admin: 11/12/17 21:15 Dose: 15 mg Rosuvastatin Calcium (Crestor) 5 mg NG HS [facility] Last Admin: 11/12/17 21:15 Dose: 5 mg Vancomycin HCl (Vancocin (Oral Or Rectal Use)) 125 mg PO QID [facility] Last Admin: 11/12/17 21:16 Dose: 125 mg - Labs Labs: 11/13/17 08:16 11/13/17 08:16 PT 16.5 SECONDS (9.7-12.2) H 11/10/17 17:28 INR 1.5 11/10/17 17:28 APTT 33 SECONDS (21-34) 11/10/17 17:28 - Constitutional Appears: No Acute Distress - Head Exam Head Exam: ATRAUMATIC, NORMOCEPHALIC - Eye Exam Eye Exam: EOMI, Normal appearance - Respiratory Exam Respiratory Exam: Clear to Ausculation Bilateral - Cardiovascular Exam Cardiovascular Exam: REGULAR RHYTHM - GI/Abdominal Exam GI & Abdominal Exam: Soft. absent: Guarding, Tenderness - Neurological Exam Neurological Exam: Alert, Awake, Oriented x3 - Skin Skin Exam: Dry, Warm. absent: Cyanosis, Petechiae, Rash Assessment and Plan - Assessment and Plan (Free Text) Plan: 1). C. diff Colitis CT Abdomen/Pelvis 11/10/17: Enterocolitis. Interval resolution of inflammation/ fluid at the enteral anastomosis in the left upper quadrant. Interval decrease in bilateral pleural effusions and bibasilar airspace disease. Multiple hepatic cysts unchanged. Stool + for C. diff Vancomycin 125 mg PO Q6H for 10 days starting 11/11/17 Flagyl 500 mg PO Q8H for 10 days starting 11/11/[address] Dominic Zapata- rosangela appreciated cont iv flagyl and po vanco add difcid if no response to rx WBC: 13.8 down to 13.4 2). Thrombocytosis Thrombocytosis noted on labs today with platelets nearly 1400. This is likely a reactive response to the infection, however given the hx of breast cancer, the patient's oncologist Dr. Miller was contacted. He agrees that this is likely a reactive response but will be seeing the patient tomorrow. Follow up any recommendations Repeat CBC and peripheral smear were ordered- follow up results 3). Hyponatremia Likely due to diarrhea Continue to monitor NA 131 11/12/17- increased to 132 Liquid diet currently 4). Hx Bowel Ischemia (10/08/17: Exploratory laparotomy, small bowel resection and primary anastomosis) No acute intervention 5). Hx Chest Pain, LBBB, CAD, CABG, Pacemaker, Aortic Stenosis, New Onset A-fib Eiliquis 5.0 mg PO 2x/day Cardizem 60 mg PO Q6H Cozaar 100 mg PO 1x/day Crestor 5 mg PO 1x/day Add Metoprolol Succinate 25 mg PO 1x/day IF there are any issues of uncontrolled blood pressure/heart rate as the patient was on this in the past Was seen by Cardiology Dr. Childs upon last admission 6). Hx Sepsis Secondary UTI (Klebsiella and Yeast) Urine Culture 10/18/17 showed NO growth Urine Culture 10/26/17 showed Yeast species: treated with Fluconazole 100 mg IV 1x /day through 11/03/17 7). Hx Sputum (+) Yeast (10/18/17) Fluconazole 100 mg PO 1x/day and treated for 7 days 8). Hx Bilateral PE CT Angio Chest 10/28/17: Bilateral Pulmonary Emboli involving lower lobe pulmonary artery branches. NO central pulmonary embolus Eliquis 5 mg PO 2x/day 9). Hx Influenza A and Likely Hospital Acquired Pneumonia MDR Bilaterally Treated with Tamiflu, Zosyn, Ciprofloxacin, and Vancomycin during last admission Chest X Ray 11/10/17: right sided dual pacemaker, evidence of CABG, left lower base atlectasis 10). Hx Melena/BRBPR Resolved EGD 10/18/17: esophageal ulcer 7 mm nonbleeding, duodenum with superficial ulceration, adherent blood clot in jejunum Was seen by GI Dr. Boland upon last admission 11). Hx Liver Cysts Evaluated by GI Dr. Boland during last admission CT Abdomen/Pelvis 11/10/17 did NOT show any change in these cysts NO further workup at this time 12). Hx Breast CA/Lumpectomy stable No acute intervention 13). Hx HTN Cozaar 100 mg PO 1x/day Cardizem 60 mg PO Q6H Add Metoprolol Succinate 25 mg PO 1x/day IF there are any issues of uncontrolled blood pressure/heart rate as the patient was on this in the past 14). Hx HLD Crestor 5 mg PO 1x/day 15). Hx DM RISS Novolin R ACHS 16). Hx Hypernatremia Resolved 17). Hx Low Magnesium Resolved 18). Hx Hypothyroidism Levothyroxine 50 mcg PO 1x/day 19). Prophylaxis Acetaminophen 650 mg PO Q6H PRN Fever Xanax 0.25 mg PO TID PRN Anxiety Mirtazapine 15 mg PO HS for sleep Protonix 40 mg PO 1x/day Percocet 5/325 mg PO Q8H PRN Severe Pain- do not give any further opioids Ensure Clear for now 3x/day Case discussed with Dr. Venkata Stockton D.O. <Bertin Hastings - Last Filed: 11/13/17 20:09> Objective - Vital Signs/Intake and Output Vital Signs (last 24 hours): Temp Pulse Resp BP Pulse Ox 98 F 86 20 114/68 96 11/13/17 16:18 11/13/17 16:18 11/13/17 16:18 11/13/17 16:18 11/13/17 16:18 Intake and Output: 11/13/17 11/14/17 18:59 06:59 Intake Total 400 Balance 400 - Medications Medications: Current Medications Alprazolam (Xanax) 0.25 mg PO TID PRN PRN Reason: Anxiety Stop: 11/17/17 23:11 Last Admin: 11/11/17 03:43 Dose: 0.25 mg Apixaban (Eliquis) 5 mg PO BID [facility] Last Admin: 11/13/17 17:11 Dose: 5 mg Diltiazem HCl (Cardizem) 60 mg PO Q6H [facility] Last Admin: 11/13/17 17:11 Dose: 60 mg Famotidine (Pepcid) 20 mg PO DAILY [facility] Last Admin: 11/13/17 10:29 Dose: 20 mg Metronidazole (Flagyl) 500 mg in 100 mls @ 100 mls/hr IVPB Q8 [facility] Last Admin: 11/13/17 14:08 Dose: 100 mls/hr Insulin Human Regular (Novolin R) 0 unit SC ACHS [facility] PRN Reason: Protocol Last Admin: 11/13/17 18:53 Dose: Not Given Lactobacillus Acidophilus (Bacid Acidophilus) 1 cap PO BID [facility] Last Admin: 11/13/17 17:11 Dose: 1 cap Levothyroxine Sodium (Synthroid) 50 mcg PO DAILY@0630 [facility] Last Admin: 11/13/17 05:41 Dose: 50 mcg Losartan Potassium (Cozaar) 100 mg PO DAILY [facility] Last Admin: 11/13/17 10:29 Dose: 100 mg Mirtazapine (Remeron) [address] [facility] Last Admin: 11/12/17 21:15 Dose: 15 mg Rosuvastatin Calcium (Crestor) 5 mg NG HS [facility] Last Admin: 11/12/17 21:15 Dose: 5 mg Vancomycin HCl (Vancocin (Oral Or Rectal Use)) 125 mg PO QID [facility] Last Admin: 11/13/17 17:12 Dose: 125 mg - Labs Labs: 11/13/17 08:16 11/13/17 08:16 PT 16.5 SECONDS (9.7-12.2) H 11/10/17 17:28 INR 1.5 11/10/17 17:28 APTT 33 SECONDS (21-34) 11/10/17 17:28 Attending/Attestation - Attestation I have personally seen and examined this patient.: Yes I have fully participated in the care of the patient.: Yes I have reviewed all pertinent clinical information, including history, physical exam and plan: Yes Notes (Text): 11/13/17 20:06 Hospitalist Progress Note Patient was seen and examined at 3:40 PM 11/13/17 Bed 571 B with Brother Jairo present with patient's permission. 77 year old female with an extensive medical history (see below) who was admitted on night of 11/10/17 for treatment of C. diff Colitis. Please see Assessment and Plans below for details. Also on ROS: NO chest pain NO palpitations NO SOB NO Cough Abdominal pain that comes and goes involving the Right UQ and extending up to her right shoulder: however this is improved Moving her bowels 2x today and one was soft and the other was well formed NO burning/pain with urination NO lightheadedness/dizziness NO new changes in vision/eye pain NO new changes in hearing/ear pain NO headache Exam: General: AAOx3, NAD, She does not appear to be in any pain and carrying a full conversation without appearing to be uncomfortable HEENT: NCA, EOMI, PERRLA, NO pharyngeal erythema/exudte, NO thyromegaly, NO cervical/supraclavicular/submandibular lymphadenopathy Cardio: Systolic Murmur along Left Sternal Border Resp: Bilateral Lower Lung Field faint inspiratory crackles GI: midline surgical scar that is healing well, BSx4, Soft, NO HSM, NO guarding/ rebound tenderness, I again shook the entire abdomen while patient was speaking and there was NO pain illicited Skin: no ulcers present on sacrum or any other amelia prominence Neuro: CN II through XII are grossly intact Assessments: 1). C. diff Colitis CT Abdomen/Pelvis 11/10/17: Enterocolitis. Interval resolution of inflammation/ fluid at the enteral anastomosis in the left upper quadrant. Interval decrease in bilateral pleural effusions and bibasilar airspace disease. Multiple hepatic cysts unchanged. Stool + for C. diff Vancomycin 125 mg PO Q6H for 10 days starting 11/11/17 through 11/20/17 Flagyl 500 mg IV Q8H for 10 days starting 11/11/17 through 11/20/[address] Dominic Zapata 2). Hx Bowel Ischemia (10/08/17: Exploratory laparotomy, small bowel resection and primary anastomosis) 3). Hx Chest Pain, LBBB, CAD, CABG, Pacemaker, Aortic Stenosis, New Onset A-fib Eiliquis 5.0 mg PO 2x/day Cardizem 60 mg PO Q6H Cozaar 100 mg PO 1x/day Crestor 5 mg PO 1x/day Add Metoprolol Succinate 25 mg PO 1x/day IF there are any issues of uncontrolled blood pressure/heart rate as the patient was on this in the past Was seen by Cardiology Dr. Childs upon last admission 4). Hx Sepsis Secondary UTI (Klebsiella and Yeast) Urine Culture 10/18/17 showed NO growth Urine Culture 10/26/17 showed Yeast species: treated with Fluconazole 100 mg IV 1x /day through 11/03/17 5). Hx Sputum (+) Yeast (10/18/17) Fluconazole 100 mg PO 1x/day and treated for 7 days 6). Hx Bilateral PE CT Angio Chest 10/28/17: Bilateral Pulmonary Emboli involving lower lobe pulmonary artery branches. NO central pulmonary embolus Eliquis 5 mg PO 2x/day 7). Hx Influenza A and Likely Hospital Acquired Pneumonia MDR Bilaterally Treated with Tamiflu, Zosyn, Ciprofloxacin, and Vancomycin during last admission Chest X Ray 11/10/17: right sided dual pacemaker, evidence of CABG, left lower base atlectasis 8). Hx Melena/BRBPR Resolved EGD 10/18/17: esophageal ulcer 7 mm nonbleeding, duodenum with superficial ulceration, adherent blood clot in jejunum Was seen by GI Dr. Boland upon last admission 9). Hx Liver Cysts Evaluated by GI Dr. Boland during last admission CT Abdomen/Pelvis 11/10/17 did NOT show any change in these cysts NO further workup at this time 10). Hx Breast CA/Lumpectomy 11). Hx HTN Cozaar 100 mg PO 1x/day Cardizem 60 mg PO Q6H Add Metoprolol Succinate 25 mg PO 1x/day IF there are any issues of uncontrolled blood pressure/heart rate as the patient was on this in the past 11). Hx HLD Crestor 5 mg PO 1x/day 12). Hx DM RISS Novolin R ACHS 13). Hx Hypernatremia Resolved 14). Hx Low Magnesium Resolved 15). Hx Hypothyroidism Levothyroxine 50 mcg PO 1x/day 16). Prophylaxis Acetaminophen 650 mg PO Q6H PRN Fever/Pain Xanax 0.25 mg PO TID PRN Anxiety Mirtazapine 15 mg PO HS for sleep Protonix 40 mg PO 1x/day Percocet 5/325 mg PO Q8H was discontinued 11/12/17 Ensure Clear for now 3x/day 11/11/17: Extensive conversation with the patient and her brother about the effects of narcotic on the bowels (ie their tendency to slow the bowels down) and how this would not be in the patient's best interests in light of the C. diff colitis. At no time did the patient during my exam (and explanations and answering of questions all of which lasted 45 minutes) appear to be in "15 out of 10" pain as she stated that she was. 11/12/17: Again explained to patient the importance of not using narcotic pain medication in light of NO pain illicited upon exam. She was encouraged to continue the Ensure Clear Shakes (I again spoke with Nurse this time Nurse Hanna to make sure that dietary was bringing these shakes 3x/day) and brother Jairo will be bringing soup from home. She was also encouraged to keep hydrated. She was notified that the Percocet was discontinued. 11/13/17: Medicine Team please follow up with Physical Therapy on 11/14/17. Patient does NOT want T[facility] and would prefer to have Home PT as well as a bedside commode. Please follow this up with Ladder Operator/Jukebox Route Driver. Bertin Hastings D.O.
[2017-11-13] MEDS: Lactobacillus Acidophilus 500 MU Cap PO SCH ×2 (10:29→17:11)
[2017-11-13] MEDS: Vancomycin 125 MG/5 ML SOLN (ORAL/RECTAL) PO SCH ×4 (10:29→21:07)
[2017-11-13 10:45] LABS: ANISOCYTOSIS MODERATE; BANDS 7 % (0-2); EOSINOPHIL 4 % (0-4); LYMPHOCYTE 39 % (20-40); MONOCYTE 15 % (0-10); MYELOCYTE 1 % (0-0); NEUTROPHIL 34 % (50-75); PLATELET ESTIMATE MARKEDLY INCREASED (NORMAL); TOTAL CELLS COUNTED 100
[2017-11-13 10:46] LABS: HYPOCHROMIC SLIGHT; LARGE PLATELETS PRESENT
--- NOTE | 2017-11-13 15:01 | CP.PCM.PN ---
Subjective - Date & Time of Evaluation Date of Evaluation: 11/13/17 Time of Evaluation: 09:00 - Subjective Subjective: c/o pain + LBM PO rx in progress wbc trending down Objective - Vital Signs/Intake and Output Vital Signs (last 24 hours): Temp Pulse Resp BP Pulse Ox 98.8 F 97 H 20 119/63 95 11/12/17 23:55 11/12/17 23:55 11/12/17 23:55 11/12/17 23:55 11/12/17 23:55 Intake and Output: 11/13/17 11/13/17 06:59 18:59 Intake Total 100 Balance 100 - Medications Medications: Current Medications Alprazolam (Xanax) 0.25 mg PO TID PRN PRN Reason: Anxiety Stop: 11/17/17 23:11 Last Admin: 11/11/17 03:43 Dose: 0.25 mg Apixaban (Eliquis) 5 mg PO BID [facility] Last Admin: 11/13/17 10:29 Dose: 5 mg Diltiazem HCl (Cardizem) 60 mg PO Q6H [facility] Last Admin: 11/13/17 10:29 Dose: 60 mg Famotidine (Pepcid) 20 mg PO DAILY [facility] Last Admin: 11/13/17 10:29 Dose: 20 mg Metronidazole (Flagyl) 500 mg in 100 mls @ 100 mls/hr IVPB Q8 [facility] Last Admin: 11/13/17 14:08 Dose: 100 mls/hr Insulin Human Regular (Novolin R) 0 unit SC ACHS [facility] PRN Reason: Protocol Last Admin: 11/13/17 12:16 Dose: Not Given Lactobacillus Acidophilus (Bacid Acidophilus) 1 cap PO BID [facility] Last Admin: 11/13/17 10:29 Dose: 1 cap Levothyroxine Sodium (Synthroid) 50 mcg PO DAILY@0630 [facility] Last Admin: 11/13/17 05:41 Dose: 50 mcg Losartan Potassium (Cozaar) 100 mg PO DAILY [facility] Last Admin: 11/13/17 10:29 Dose: 100 mg Mirtazapine (Remeron) 15 mg PO HS [facility] Last Admin: 11/12/17 21:15 Dose: 15 mg Rosuvastatin Calcium (Crestor) 5 mg NG HS [facility] Last Admin: 11/12/17 21:15 Dose: 5 mg Vancomycin HCl (Vancocin (Oral Or Rectal Use)) 125 mg PO QID [facility] Last Admin: 11/13/17 14:08 Dose: 125 mg - Labs Labs: 11/13/17 08:16 11/13/17 08:16 PT 16.5 SECONDS (9.7-12.2) H 11/10/17 17:28 INR 1.5 11/10/17 17:28 APTT 33 SECONDS (21-34) 11/10/17 17:28 - Constitutional Appears: Non-toxic, Chronically Ill - Head Exam Head Exam: NORMOCEPHALIC - Eye Exam Eye Exam: PERRL. absent: Scleral icterus - ENT Exam ENT Exam: Mucous Membranes Dry - Neck Exam Neck Exam: absent: Lymphadenopathy - Respiratory Exam Respiratory Exam: Decreased Breath Sounds - Cardiovascular Exam Cardiovascular Exam: REGULAR RHYTHM - GI/Abdominal Exam GI & Abdominal Exam: Distended, Soft - Rectal Exam Rectal Exam: Deferred - Exam Exam: NORMAL INSPECTION - Extremities Exam Extremities Exam: absent: Pedal Edema - Back Exam Back Exam: absent: CVA tenderness (L), CVA tenderness (R) - Neurological Exam Neurological Exam: Alert, Awake, Oriented x3 - Psychiatric Exam Psychiatric exam: Depressed - Skin Skin Exam: Dry Assessment and Plan (1) Abdominal pain Status: Acute (2) C. difficile colitis Status: Acute (3) Diabetes mellitus Status: Acute (4) Enterocolitis Status: Acute
[2017-11-14] MEDS: Levothyroxine 50 MCG TAB PO SCH ×2 (05:57→07:16)
[2017-11-14] MEDS: metroNIDAZOLE IV 500 mg/100 ml 500 MG/100 ML BAG IVPB SCH ×3 (05:57→22:21)
[2017-11-14] MEDS: (Novolin R) Insulin Human Regular 100 units/ml vial SC SCH ×4 (07:30→21:59)
[2017-11-14 07:38] LABS: BASO % 0.4 % (0.0-2.0); EOS # 0.3 K/uL (0.0-0.7); EOS % 2.8 % (0.0-4.0); HEMOGLOBIN 8.9 g/dL (11.0-16.0); LYMPH # 2.8 K/uL (1.0-4.3); LYMPH % 24.8 % (20.0-40.0); MEAN CORPUSCULAR HEMOGLOBIN 28.6 pg (27.0-31.0); MEAN CORPUSCULAR HGB CONC 32.6 g/dL (33.0-37.0); MEAN PLATELET VOLUME 7.1 fL (7.2-11.7); MONO # 2.7 K/uL (0.0-0.8); MONO % 24.1 % (0.0-10.0); NEUT # 5.3 K/uL (1.8-7.0); NEUT % 47.9 % (50.0-75.0); NRBC % 0.1 % (0.0-2.0); RBC 3.11 Mil/uL (3.80-5.20); RED CELL DISTRIBUTION WIDTH 17.7 % (11.5-14.5); WHITE BLOOD COUNT 11.2 K/uL (4.8-10.8)
[2017-11-14 07:42] LABS: MEAN CELL VOLUME 87.9 fL (81.0-99.0)
[2017-11-14 07:43] LABS: ALB/GLOB RATIO 0.7 (1.0-2.1); ALBUMIN 2.1 g/dL (3.5-5.0); ALT/SGPT 18 U/L (9-52); AST/SGOT 12 U/L (14-36); BLOOD UREA NITROGEN 7 mg/dL (7-17); CALCIUM 8.1 mg/dl (8.6-10.4); GFR AFRICAN-AMERICAN > 60; GFR NON-AFRICAN AMERICAN > 60; MAGNESIUM 1.6 mg/dL (1.6-2.3); PLATELET COUNT 898 K/uL (130-400)
[2017-11-14 09:04] LABS: ANISOCYTOSIS SLIGHT; BANDS 4 % (0-2); EOSINOPHIL 2 % (0-4); LYMPHOCYTE 19 % (20-40); MONOCYTE 16 % (0-10); NEUTROPHIL 59 % (50-75); PLATELET ESTIMATE INCREASED (NORMAL); TOTAL CELLS COUNTED 100
[2017-11-14 09:05] LABS: HYPOCHROMIC SLIGHT; POLYCHROMIC SLIGHT
[2017-11-14] MEDS: Lactobacillus Acidophilus 500 MU Cap PO SCH ×2 (10:18→18:33)
[2017-11-14] MEDS: Vancomycin 125 MG/5 ML SOLN (ORAL/RECTAL) PO SCH ×4 (10:19→22:22)
--- NOTE | 2017-11-14 16:15 | CP.PCM.PN ---
<Linda Tejada - Last Filed: 11/14/17 16:12> Subjective - Date & Time of Evaluation Date of Evaluation: 11/14/17 Time of Evaluation: 10:00 - Subjective Subjective: Medicine Note for Hospitalist Service- Dr. Royal Patient was seen and examined at bedside. Patient reports she overall feels better. She continues having RUQ pain, especially when she sits up. She admits to abdominal pain (patient is 1 month post op). Admitted to 4 formed bowel movements, nonbloody. She admits to tolerating the CLD and does not ambulate without assistance. Denied fever, chills, headache, SOB, chest pain, n/v/d/c, or urinary symptoms. Objective - Vital Signs/Intake and Output Vital Signs (last 24 hours): Temp Pulse Resp BP Pulse Ox 98.0 F 99 H 20 126/65 97 11/14/17 02:15 11/14/17 12:48 11/14/17 02:15 11/14/17 12:48 11/14/17 02:15 - Medications Medications: Current Medications Alprazolam (Xanax) 0.25 mg PO TID PRN PRN Reason: Anxiety Stop: 11/17/17 23:11 Last Admin: 11/11/17 03:43 Dose: 0.25 mg Apixaban (Eliquis) 5 mg PO BID [facility] Last Admin: 11/14/17 10:18 Dose: 5 mg Diltiazem HCl (Cardizem) 60 mg PO Q6H [facility] Last Admin: 11/14/17 12:10 Dose: 60 mg Famotidine (Pepcid) 20 mg PO DAILY [facility] Last Admin: 11/14/17 10:18 Dose: 20 mg Metronidazole (Flagyl) 500 mg in 100 mls @ 100 mls/hr IVPB Q8 [facility] Stop: 11/22/17 22:01 Last Admin: 11/14/17 13:24 Dose: 100 mls/hr Insulin Human Regular (Novolin R) 0 unit SC ACHS [facility] PRN Reason: Protocol Last Admin: 11/14/17 12:02 Dose: Not Given Lactobacillus Acidophilus (Bacid Acidophilus) 1 cap PO BID [facility] Last Admin: 11/14/17 10:18 Dose: 1 cap Levothyroxine Sodium (Synthroid) 50 mcg PO DAILY@0630 [facility] Last Admin: 11/14/17 07:16 Dose: Not Given Losartan Potassium (Cozaar) 100 mg PO DAILY [facility] Last Admin: 11/14/17 10:18 Dose: 100 mg Mirtazapine (Remeron) 15 mg PO [facility] Last Admin: 11/13/17 21:07 Dose: 15 mg Rosuvastatin Calcium (Crestor) 5 mg NG HS [facility] Last Admin: 11/13/17 21:07 Dose: 5 mg Vancomycin HCl (Vancocin (Oral Or Rectal Use)) 125 mg PO QID [facility] Stop: 11/21/17 08:01 Last Admin: 11/14/17 13:24 Dose: 125 mg - Labs Labs: 11/14/17 07:09 11/14/17 07:09 PT 16.5 SECONDS (9.7-12.2) H 11/10/17 17:28 INR 1.5 11/10/17 17:28 APTT 33 SECONDS (21-34) 11/10/17 17:28 - Constitutional Appears: No Acute Distress - Head Exam Head Exam: NORMAL INSPECTION, NORMOCEPHALIC - Eye Exam Eye Exam: EOMI, Normal appearance, PERRL - ENT Exam ENT Exam: Mucous Membranes Moist - Respiratory Exam Respiratory Exam: Clear to Ausculation Bilateral, NORMAL BREATHING PATTERN. absent: Decreased Breath Sounds - Cardiovascular Exam Cardiovascular Exam: REGULAR RHYTHM, RRR - GI/Abdominal Exam GI & Abdominal Exam: Soft, Normal Bowel Sounds. absent: Distended, Tenderness - Extremities Exam Extremities Exam: Normal Inspection. absent: Pedal Edema, Tenderness - Neurological Exam Neurological Exam: Alert, Awake, CN II-XII Intact, Oriented x3 - Skin Skin Exam: Dry, Intact, Normal Color, Warm Assessment and Plan - Assessment and Plan (Free Text) Plan: C. diff Colitis ID Dr. Dominic Zapata- [facility] appreciated Imaging: CT Abdomen/Pelvis 11/10/17: Enterocolitis. Interval resolution of inflammation /fluid at the enteral anastomosis in the left upper quadrant. Interval decrease in bilateral pleural effusions and bibasilar airspace disease. Multiple hepatic cysts unchanged. Stool + for C. diff on admission, repeat cdiff 11/13 + Meds: Vancomycin 125 mg PO Q6H for 10 days starting 11/11/17 Flagyl 500 mg PO Q8H for 10 days starting 11/11/17 add difcid if no response to rx Thrombocytosis Thrombocytosis noted on labs today with platelets nearly 1400. This is likely a reactive response to the infection, however given the hx of breast cancer, the patient's oncologist Dr. Miller was contacted. He agrees that this is likely a reactive response but will be seeing the patient tomorrow. Follow up any recommendations Peripheral smear were ordered- follow up results Hx Bowel Ischemia (10/08/17: Exploratory laparotomy, small bowel resection and primary anastomosis) Surgery Consulted - Dr. Hinton- for post op check Hx Chest Pain, LBBB, CAD, CABG, Pacemaker, Aortic Stenosis, New Onset A-fib Was seen by Cardiology Dr. Childs upon last admission Eiliquis 5.0 mg PO 2x/day Cardizem 60 mg PO Q6H Cozaar 100 mg PO 1x/day Crestor 5 mg PO 1x/day Add Metoprolol Succinate 25 mg PO 1x/day IF there are any issues of uncontrolled blood pressure/heart rate as the patient was on this in the past Hx Sepsis Secondary UTI (Klebsiella and Yeast) Urine Culture 10/18/17 showed NO growth Urine Culture 10/26/17 showed Yeast species: treated with Fluconazole 100 mg IV 1x/day through 11/03/17 Hx Sputum (+) Yeast (10/18/17) Fluconazole 100 mg PO 1x/day and treated for 7 days Hx Bilateral PE CT Angio Chest 10/28/17: Bilateral Pulmonary Emboli involving lower lobe pulmonary artery branches. NO central pulmonary embolus Eliquis 5 mg PO 2x/day Hx Influenza A and Likely Hospital Acquired Pneumonia MDR Bilaterally Treated with Tamiflu, Zosyn, Ciprofloxacin, and Vancomycin during last admission Chest X Ray 11/10/17: right sided dual pacemaker, evidence of CABG, left lower base atlectasis Hx Melena/BRBPR Resolved EGD 10/18/17: esophageal ulcer 7 mm nonbleeding, duodenum with superficial ulceration, adherent blood clot in jejunum Was seen by GI Dr. Boland upon last admission Hx Liver Cysts Evaluated by GI Dr. Boland during last admission CT Abdomen/Pelvis 11/10/17 did NOT show any change in these cysts NO further workup at this time Hx Breast CA/Lumpectomy stable No acute intervention Hx HTN Cozaar 100 mg PO 1x/day Cardizem 60 mg PO Q6H Add Metoprolol Succinate 25 mg PO 1x/day IF there are any issues of uncontrolled blood pressure/heart rate as the patient was on this in the past Hx HLD Crestor 5 mg PO 1x/day Hx DM RISS Novolin R ACHS Hx Hypothyroidism Levothyroxine 50 mcg PO 1x/day Prophylaxis Acetaminophen 650 mg PO Q6H PRN Fever Xanax 0.25 mg PO TID PRN Anxiety Mirtazapine 15 mg PO HS for sleep Protonix 40 mg PO 1x/day Ensure Clear for now 3x/day DW Dr. Royal, Linda Tejada DO, PGY-1 <Dianne Royal V - Last Filed: 11/14/17 19:48> Objective - Vital Signs/Intake and Output Vital Signs (last 24 hours): Temp Pulse Resp BP Pulse Ox 98.3 F 94 H 20 115/67 97 11/14/17 16:45 11/14/17 18:32 11/14/17 16:45 11/14/17 18:32 11/14/17 16:45 - Medications Medications: Current Medications Alprazolam (Xanax) 0.25 mg PO TID PRN PRN Reason: Anxiety Stop: 11/17/17 23:11 Last Admin: 11/11/17 03:43 Dose: 0.25 mg Apixaban (Eliquis) 5 mg PO BID [facility] Last Admin: 11/14/17 18:33 Dose: 5 mg Diltiazem HCl (Cardizem) 60 mg PO Q6H [facility] Last Admin: 11/14/17 18:33 Dose: 60 mg Famotidine (Pepcid) 20 mg PO DAILY [facility] Last Admin: 11/14/17 10:18 Dose: 20 mg Metronidazole (Flagyl) 500 mg in 100 mls @ 100 mls/hr IVPB Q8 [facility] Stop: 11/22/17 22:01 Last Admin: 11/14/17 13:24 Dose: 100 mls/hr Insulin Human Regular (Novolin R) 0 unit SC ACHS [facility] PRN Reason: Protocol Last Admin: 11/14/17 18:33 Dose: 2 unit Lactobacillus Acidophilus (Bacid Acidophilus) 1 cap PO BID [facility] Last Admin: 11/14/17 18:33 Dose: 1 cap Levothyroxine Sodium (Synthroid) 50 mcg PO DAILY@0630 [facility] Last Admin: 11/14/17 07:16 Dose: Not Given Losartan Potassium (Cozaar) 100 mg PO DAILY [facility] Last Admin: 11/14/17 10:18 Dose: 100 mg Mirtazapine (Remeron) 15 mg PO HS [facility] Last Admin: 11/13/17 21:07 Dose: 15 mg Rosuvastatin Calcium (Crestor) 5 mg NG HS [facility] Last Admin: 11/13/17 21:07 Dose: 5 mg Vancomycin HCl (Vancocin (Oral Or Rectal Use)) 125 mg PO QID [facility] Stop: 11/21/17 08:01 Last Admin: 11/14/17 18:34 Dose: 125 mg - Labs Labs: 11/14/17 07:09 11/14/17 07:09 PT 16.5 SECONDS (9.7-12.2) H 11/10/17 17:28 INR 1.5 11/10/17 17:28 APTT 33 SECONDS (21-34) 11/10/17 17:28 Attending/Attestation - Attestation I have personally seen and examined this patient.: Yes I have fully participated in the care of the patient.: Yes I have reviewed all pertinent clinical information, including history, physical exam and plan: Yes Notes (Text): Patient seen, examined and case discussed with medical diagnostic radiographer. Patient seen this afternoon. patient sitting comfortably watching television. Prior to me prompting her, she did not complain about abdominal pain nor was she tender upon palpation. Patient reports she is having small stools, formed, nonbloody, but is going multiple times a day, noted 4x today. Patient's white count improved and platelets improved. Patient's repeat C. diff remains positive. patient reports she has not seen the surgeon post-operative in light of recent surgery. Will consult Dr. Hinton/general surgery team to see patient given abdominal pain in light of recent surgery. Patient reports she is tolerating the Ensure but does not care for it. Patient doesn't want to go back to [facility]; she did not like how she was treated there. Assessment/Plan 1)C. diff Colitis * ID Dr. Dominic Zapata- [facility] appreciated * Imaging: * CT Abdomen/Pelvis 11/10/17: Enterocolitis. Interval resolution of inflammation /fluid at the enteral anastomosis in the left upper quadrant. Interval decrease in bilateral pleural effusions and bibasilar airspace disease. Multiple hepatic cysts unchanged. * Stool + for C. diff on admission, repeat cdiff 11/13 + Meds: Vancomycin 125 mg PO Q6H for 10 days starting 11/11/17 Flagyl 500 mg PO Q8H for 10 days starting 11/11/17 add difcid if no response to rx 2) Thrombocytosis * Likely reactive secondary to C. Diff colitis * Pending peripheral smear 3) Hx Bowel Ischemia (10/08/17: Exploratory laparotomy, small bowel resection and primary anastomosis) Surgery Consulted - Dr. Hinton- for post op check 4) Hx Chest Pain, LBBB, CAD, CABG, Pacemaker, Aortic Stenosis, New Onset A-fib * Was seen by Cardiology Dr. Childs upon last admission * Eiliquis 5.0 mg PO 2x/day * Cardizem 60 mg PO Q6H * Cozaar 100 mg PO 1x/day * Crestor 5 mg PO 1x/day * Add Metoprolol Succinate 25 mg PO 1x/day IF there are any issues of uncontrolled blood pressure/heart rate as the patient was on this in the past 5) Hx Sepsis Secondary UTI (Klebsiella and Yeast) Urine Culture 10/18/17 showed NO growth Urine Culture 10/26/17 showed Yeast species: treated with Fluconazole 100 mg IV 1x/day through 11/03/17 6) Hx Sputum (+) Yeast (10/18/17) Fluconazole 100 mg PO 1x/day and treated for 7 days 7) Hx Bilateral PE CT Angio Chest 10/28/17: Bilateral Pulmonary Emboli involving lower lobe pulmonary artery branches. NO central pulmonary embolus Eliquis 5 mg PO 2x/day 8) Hx Influenza A and Likely Hospital Acquired Pneumonia MDR Bilaterally Treated with Tamiflu, Zosyn, Ciprofloxacin, and Vancomycin during last admission Chest X Ray 11/10/17: right sided dual pacemaker, evidence of CABG, left lower base atlectasis 9) History of Esophageal Ulcer * EGD 10/18/17: esophageal ulcer 7 mm nonbleeding, duodenum with superficial ulceration, adherent blood clot in jejunum * Was seen by GI Dr. Boland upon last admission; recommended to follow-up in 2-3 months for repeat EGD 10) Hx Liver Cysts * Evaluated by GI Dr. Boland during last admission * CT Abdomen/Pelvis 11/10/17 did NOT show any change in these cysts * NO further workup at this time 11) Hx Breast CA/Lumpectomy * stable * No acute intervention 12) Hx HTN * Cozaar 100 mg PO 1x/day * Cardizem 60 mg PO Q6H * Add Metoprolol Succinate 25 mg PO 1x/day IF there are any issues of uncontrolled blood pressure/heart rate as the patient was on this in the past 13) Hx HLD * Crestor 5 mg PO 1x/day 14) Hx DM * RISS Novolin R ACHS 15) Hx Hypothyroidism Levothyroxine 50 mcg PO 1x/day 16) Prophylaxis * Acetaminophen 650 mg PO Q6H PRN Fever * Xanax 0.25 mg PO TID PRN Anxiety * Mirtazapine 15 mg PO HS for sleep * Pepcid 20mg PO daily * Bacid 1 tab PO daily Ensure Clear for now 3x/day
--- NOTE | 2017-11-14 20:46 | CP.PCM.CON ---
History of Present Illness - History of Present Illness History of Present Illness: General Surgery Dr. Hinton 77 y/o F w/ a PMHx of ischemic bowel, PE, CAD presented to the ED on 11/11/17 c/ o abd pain. Pt reports continued abd pain, worse when sitting up; however, pt attributes pain to chronic liver cyst. On admission, pt also suffered from diarrhea and was found positive for C. Diff. Diarrhea has since resolved per the pt. Surgery consulted for post-op check of celiotomy. PMHx: see above, HTN, HLD, DM, Breast Cancer, Hypothyroidism Meds: reviewed in chart NKDA PSHx: small bowel resection (10/08/17), Pacemaker, CABG, lumpectomy SHx: Denies tobacco, EtOH, drug use FHx: noncontributory Review of Systems - Review of Systems All systems: reviewed and no additional remarkable complaints except (see HPI) Past Patient History - Past Medical History & Family History Past Medical History?: Yes - Past Social History Smoking Status: Former Smoker - CARDIAC Hx Cardiac Disorders: Yes (CAD,CABG,PACEMAKER) Hx Hypercholesterolemia: Yes Hx Hypertension: Yes - PULMONARY Hx Chronic Obstructive Pulmonary Disease (COPD): Yes - NEUROLOGICAL Hx Neurological Disorder: Yes - HEENT Hx HEENT Problems: Yes Hx Cataracts: Yes (removed bilateral 2011) - RENAL Hx Chronic Kidney Disease: No - ENDOCRINE/METABOLIC Hx Diabetes Mellitus Type 2: Yes Hx Hypothyroidism: Yes - HEMATOLOGICAL/ONCOLOGICAL Hx Blood Disorders: Yes Hx Cancer: Yes (LEFT BREAST-RADIATION TX. DONE) - INTEGUMENTARY Hx Dermatological Problems: Yes Other/Comment: CANCER LEFT BREAST-LUMPECTOMY DONE - MUSCULOSKELETAL/RHEUMATOLOGICAL Hx Arthritis: Yes (KNEE PAIN) - GASTROINTESTINAL Hx Gastrointestinal Disorders: No - GENITOURINARY/GYNECOLOGICAL Hx Genitourinary Disorders: No - PSYCHIATRIC Hx Psychophysiologic Disorder: Yes Hx Anxiety: Yes Hx Depression: Yes Hx Substance Use: No - SURGICAL HISTORY Hx Surgeries: Yes Hx Coronary Artery Bypass Graft: Yes (jan 17 2013 TRIPLE) Hx Coronary Stent: Yes Hx Tonsillectomy: Yes - ANESTHESIA Hx Anesthesia: Yes Hx Anesthesia Reactions: No Hx Malignant Hyperthermia: No Meds Allergies/Adverse Reactions: Allergies Allergy/AdvReac Type Severity Reaction Status Date / Time No Known Allergies Allergy Verified 10/04/17 17:45 - Medications Medications: Current Medications Alprazolam (Xanax) 0.25 mg PO TID PRN PRN Reason: Anxiety Stop: 11/17/17 23:11 Last Admin: 11/11/17 03:43 Dose: 0.25 mg Apixaban (Eliquis) 5 mg PO BID [facility] Last Admin: 11/14/17 18:33 Dose: 5 mg Diltiazem HCl (Cardizem) 60 mg PO Q6H [facility] 234 [facility]S [facility] Last Admin: 11/14/17 18:33 Dose: 60 mg Famotidine (Pepcid) 20 mg PO DAILY [facility] 234 [facility]S [facility] Last Admin: 11/14/17 10:18 Dose: 20 mg Metronidazole (Flagyl) 500 mg in 100 mls @ 100 mls/hr IVPB Q8 [facility] Stop: 11/22/17 22:01 Last Admin: 11/14/17 13:24 Dose: 100 mls/hr Insulin Human Regular (Novolin R) 0 unit SC ACHS [facility] 234 [facility]S [facility] PRN Reason: Protocol Last Admin: 11/14/17 18:33 Dose: 2 unit Lactobacillus Acidophilus (Bacid Acidophilus) 1 cap PO BID [facility] 234 [facility]S [facility] Last Admin: 11/14/17 18:33 Dose: 1 cap Levothyroxine Sodium (Synthroid) 50 mcg PO DAILY@0630 [facility] 234 [facility]S [facility] Last Admin: 11/14/17 07:16 Dose: Not Given Losartan Potassium (Cozaar) 100 mg PO DAILY [facility]S [facility] Last Admin: 11/14/17 10:18 Dose: 100 mg Mirtazapine (Remeron) 15 mg PO HS [facility] 234 [facility] Last Admin: 11/13/17 21:07 Dose: 15 mg Rosuvastatin Calcium (Crestor) 5 mg NG HS [facility] 234 B[facility]S [facility] Last Admin: 11/13/17 21:07 Dose: 5 mg Vancomycin HCl (Vancocin (Oral Or Rectal Use)) 125 mg PO QID [facility] 234 [facility] Stop: 11/21/17 08:01 Last Admin: 11/14/17 18:34 Dose: 125 mg Physical Exam - Constitutional Appears: Non-toxic, No Acute Distress - Head Exam Head Exam: NORMAL INSPECTION - Eye Exam Eye Exam: Normal appearance - ENT Exam ENT Exam: Mucous Membranes Moist - Respiratory Exam Respiratory Exam: NORMAL BREATHING PATTERN. absent: Accessory Muscle Use, Respiratory Distress - GI/Abdominal Exam GI & Abdominal Exam: Soft. absent: Distended, Firm, Guarding, Hernia, Rebound, Rigid, Tenderness Additional comments: post-surgical scar. incision closed. no erythema, warmth, drainage. - Extremities Exam Extremities exam: Positive for: normal inspection - Neurological Exam Neurological exam: Alert - Psychiatric Exam Psychiatric exam: Normal Affect, Normal Mood - Skin Skin Exam: Dry, Intact, Normal Color, Warm Results - Vital Signs Recent Vital Signs: Last Vital Signs Temp 98.3 F 11/14/17 16:45 Pulse 94 H 11/14/17 18:32 Resp 20 11/14/17 16:45 BP 115/67 11/14/17 18:32 Pulse Ox 97 11/14/17 16:45 - Labs Result Diagrams: 11/14/17 07:09 11/14/17 07:09 Labs: Laboratory Results - last 24 hr 11/13/17 11/13/17 11/13/17 08:16 19:44 22:22 WBC RBC Hgb Hct MCV MCH MCHC RDW Plt Count MPV Neut % (Auto) Lymph % (Auto) Dawes % (Auto) Eos % (Auto) Baso % (Auto) Neut # (Auto) Lymph # (Auto) Dawes # (Auto) Eos # (Auto) Baso # (Auto) Neutrophils % (Manual) Band Neutrophils % Lymphocytes % (Manual) Monocytes % (Manual) Eosinophils % (Manual) Platelet Estimate Polychromasia Hypochromasia (manual) Anisocytosis (manual) Smear Path Review Sodium Potassium Chloride Carbon Dioxide Anion Gap BUN Creatinine Est GFR ( Amer) Est GFR (Non-Af Amer) POC Glucose (mg/dL) 115 H Random Glucose Calcium Phosphorus Magnesium Total Bilirubin AST ALT Alkaline Phosphatase Total Protein Albumin Globulin Albumin/Globulin Ratio C. difficile Ag & Toxin Positive H 11/14/17 11/14/17 11/14/17 07:09 07:09 07:22 WBC 11.2 H RBC 3.11 L Hgb 8.9 L Hct 27.4 L MCV 87.9 D MCH 28.6 MCHC 32.6 L RDW 17.7 H Plt Count 898 H D MPV 7.1 L Neut % (Auto) 47.9 L Lymph % (Auto) 24.8 Dawes % (Auto) 24.1 H Eos % (Auto) 2.8 Baso % (Auto) 0.4 Neut # (Auto) 5.3 Lymph # (Auto) 2.8 Dawes # (Auto) 2.7 H Eos # (Auto) 0.3 Baso # (Auto) 0.0 Neutrophils % (Manual) 59 Band Neutrophils % 4 H Lymphocytes % (Manual) 19 L Monocytes % (Manual) 16 H Eosinophils % (Manual) 2 Platelet Estimate Increased H Polychromasia Slight Hypochromasia (manual) Slight Anisocytosis (manual) Slight Smear Path Review Sodium 134 Potassium 3.7 Chloride 102 Carbon Dioxide 25 Anion Gap 11 BUN 7 Creatinine 0.7 Est GFR ( Amer) > 60 Est GFR (Non-Af Amer) > 60 POC Glucose (mg/dL) 99 Random Glucose 97 Calcium 8.1 L Phosphorus 2.5 Magnesium 1.6 Total Bilirubin 0.1 L AST 12 L ALT 18 Alkaline Phosphatase 142 H Total Protein 5.2 L Albumin 2.1 L Globulin 3.1 Albumin/Globulin Ratio 0.7 L C. difficile Ag & Toxin 11/14/17 11/14/17 11:52 16:06 WBC RBC Hgb Hct MCV MCH MCHC RDW Plt Count MPV Neut % (Auto) Lymph % (Auto) Dawes % (Auto) Eos % (Auto) Baso % (Auto) Neut # (Auto) Lymph # (Auto) Dawes # (Auto) Eos # (Auto) Baso # (Auto) Neutrophils % (Manual) Band Neutrophils % Lymphocytes % (Manual) Monocytes % (Manual) Eosinophils % (Manual) Platelet Estimate Polychromasia Hypochromasia (manual) Anisocytosis (manual) Smear Path Review Sodium Potassium Chloride Carbon Dioxide Anion Gap BUN Creatinine Est GFR ( Amer) Est GFR (Non-Af Amer) POC Glucose (mg/dL) 142 H 159 H Random Glucose Calcium Phosphorus Magnesium Total Bilirubin AST ALT Alkaline Phosphatase Total Protein Albumin Globulin Albumin/Globulin Ratio C. difficile Ag & Toxin Assessment & Plan - Assessment and Plan (Free Text) Assessment: 77 y/o F s/p small bowel for ischemic colitis on 10/08/17. - well healed surgical site - no further surgical intervention at this time - cont medical management - please re-consult if needed Pt discussed w/ Dr. Jamaal Hernandez DO PGY2
[2017-11-15] MEDS: metroNIDAZOLE IV 500 mg/100 ml 500 MG/100 ML BAG IVPB SCH (05:02)
[2017-11-15] MEDS: Levothyroxine 50 MCG TAB PO SCH (06:33)
--- NOTE | 2017-11-15 06:47 | CP.PCM.CON ---
History of Present Illness - History of Present Illness History of Present Illness: patient seen.. will dictate Past Patient History - Past Medical History & Family History Past Medical History?: Yes - Past Social History Smoking Status: Former Smoker - CARDIAC Hx Cardiac Disorders: Yes (CAD,CABG,PACEMAKER) Hx Hypercholesterolemia: Yes Hx Hypertension: Yes - PULMONARY Hx Chronic Obstructive Pulmonary Disease (COPD): Yes - NEUROLOGICAL Hx Neurological Disorder: Yes - HEENT Hx HEENT Problems: Yes Hx Cataracts: Yes (removed bilateral 2011) - RENAL Hx Chronic Kidney Disease: No - ENDOCRINE/METABOLIC Hx Diabetes Mellitus Type 2: Yes Hx Hypothyroidism: Yes - HEMATOLOGICAL/ONCOLOGICAL Hx Blood Disorders: Yes Hx Cancer: Yes (LEFT BREAST-RADIATION TX. DONE) - INTEGUMENTARY Hx Dermatological Problems: Yes Other/Comment: CANCER LEFT BREAST-LUMPECTOMY DONE - MUSCULOSKELETAL/RHEUMATOLOGICAL Hx Arthritis: Yes (KNEE PAIN) - GASTROINTESTINAL Hx Gastrointestinal Disorders: No - GENITOURINARY/GYNECOLOGICAL Hx Genitourinary Disorders: No - PSYCHIATRIC Hx Psychophysiologic Disorder: Yes Hx Anxiety: Yes Hx Depression: Yes Hx Substance Use: No - SURGICAL HISTORY Hx Surgeries: Yes Hx Coronary Artery Bypass Graft: Yes (jan 17 2013 TRIPLE) Hx Coronary Stent: Yes Hx Tonsillectomy: Yes - ANESTHESIA Hx Anesthesia: Yes Hx Anesthesia Reactions: No Hx Malignant Hyperthermia: No Meds Allergies/Adverse Reactions: Allergies Allergy/AdvReac Type Severity Reaction Status Date / Time No Known Allergies Allergy Verified 10/04/17 17:45 - Medications Medications: Current Medications Alprazolam (Xanax) 0.25 mg PO TID PRN PRN Reason: Anxiety Stop: 11/17/17 23:11 Last Admin: 11/11/17 03:43 Dose: 0.25 mg Apixaban (Eliquis) 5 mg PO BID [facility] Last Admin: 11/14/17 18:33 Dose: 5 mg Diltiazem HCl (Cardizem) 60 mg PO Q6H [facility] Last Admin: 11/15/17 05:02 Dose: 60 mg Famotidine (Pepcid) 20 mg PO DAILY [facility] Last Admin: 11/14/17 10:18 Dose: 20 mg Metronidazole (Flagyl) 500 mg in 100 mls @ 100 mls/hr IVPB Q8 [facility] Stop: 11/22/17 22:01 Last Admin: 11/15/17 05:02 Dose: 100 mls/hr Insulin Human Regular (Novolin R) 0 unit SC ACHS [facility] PRN Reason: Protocol Last Admin: 11/14/17 21:59 Dose: Not Given Lactobacillus Acidophilus (Bacid Acidophilus) 1 cap PO BID [facility] Last Admin: 11/14/17 18:33 Dose: 1 cap Levothyroxine Sodium (Synthroid) 50 mcg PO DAILY@0630 [facility] Last Admin: 11/15/17 06:33 Dose: 50 mcg Losartan Potassium (Cozaar) 100 mg PO DAILY [facility] Last Admin: 11/14/17 10:18 Dose: 100 mg Mirtazapine (Remeron) 15 mg PO HS [facility] Last Admin: 11/14/17 22:22 Dose: 15 mg Rosuvastatin Calcium (Crestor) 5 mg NG HS [facility] Last Admin: 11/14/17 22:22 Dose: 5 mg Vancomycin HCl (Vancocin (Oral Or Rectal Use)) 125 mg PO QID [facility] Stop: 11/21/17 08:01 Last Admin: 11/14/17 22:22 Dose: 125 mg Results - Vital Signs Recent Vital Signs: Last Vital Signs Temp 98.8 F 11/14/17 23:55 Pulse 83 11/14/17 23:55 Resp 20 11/14/17 23:55 BP 114/67 11/14/17 23:55 Pulse Ox 96 11/14/17 23:55 - Labs Result Diagrams: 11/14/17 07:09 11/14/17 07:09 Labs: Laboratory Results - last 24 hr 11/13/17 11/13/17 11/14/17 08:16 19:44 07:09 WBC 11.2 H RBC 3.11 L Hgb 8.9 L Hct 27.4 L MCV 87.9 D MCH 28.6 MCHC 32.6 L RDW 17.7 H Plt Count 898 H D MPV 7.1 L Neut % (Auto) 47.9 L Lymph % (Auto) 24.8 [place] % (Auto) 24.1 H Eos % (Auto) 2.8 Baso % (Auto) 0.4 Neut # (Auto) 5.3 Lymph # (Auto) 2.8 [place] # (Auto) 2.7 H Eos # (Auto) 0.3 Baso # (Auto) 0.0 Neutrophils % (Manual) 59 Band Neutrophils % 4 H Lymphocytes % (Manual) 19 L Monocytes % (Manual) 16 H Eosinophils % (Manual) 2 Platelet Estimate Increased H Polychromasia Slight Hypochromasia (manual) Slight Anisocytosis (manual) Slight Smear Path Review Sodium Potassium Chloride Carbon Dioxide Anion Gap BUN Creatinine Est GFR ( Amer) Est GFR (Non-Af Amer) POC Glucose (mg/dL) Random Glucose Calcium Phosphorus Magnesium Total Bilirubin AST ALT Alkaline Phosphatase Total Protein Albumin Globulin Albumin/Globulin Ratio C. difficile Ag & Toxin Positive H 11/14/17 11/14/17 11/14/17 07:09 07:22 11:52 WBC RBC Hgb Hct MCV MCH MCHC RDW Plt Count MPV Neut % (Auto) Lymph % (Auto) [place] % (Auto) Eos % (Auto) Baso % (Auto) Neut # (Auto) Lymph # (Auto) [place] # (Auto) Eos # (Auto) Baso # (Auto) Neutrophils % (Manual) Band Neutrophils % Lymphocytes % (Manual) Monocytes % (Manual) Eosinophils % (Manual) Platelet Estimate Polychromasia Hypochromasia (manual) Anisocytosis (manual) Smear Path Review Sodium 134 Potassium 3.7 Chloride 102 Carbon Dioxide 25 Anion Gap 11 BUN 7 Creatinine 0.7 Est GFR ( Amer) > 60 Est GFR (Non-Af Amer) > 60 POC Glucose (mg/dL) 99 142 H Random Glucose 97 Calcium 8.1 L Phosphorus 2.5 Magnesium 1.6 Total Bilirubin 0.1 L AST 12 L ALT 18 Alkaline Phosphatase 142 H Total Protein 5.2 L Albumin 2.1 L Globulin 3.1 Albumin/Globulin Ratio 0.7 L C. difficile Ag & Toxin 11/14/17 11/14/17 16:06 21:11 WBC RBC Hgb Hct MCV MCH MCHC RDW Plt Count MPV Neut % (Auto) Lymph % (Auto) [place] % (Auto) Eos % (Auto) Baso % (Auto) Neut # (Auto) Lymph # (Auto) [place] # (Auto) Eos # (Auto) Baso # (Auto) Neutrophils % (Manual) Band Neutrophils % Lymphocytes % (Manual) Monocytes % (Manual) Eosinophils % (Manual) Platelet Estimate Polychromasia Hypochromasia (manual) Anisocytosis (manual) Smear Path Review Sodium Potassium Chloride Carbon Dioxide Anion Gap BUN Creatinine Est GFR ( Amer) Est GFR (Non-Af Amer) POC Glucose (mg/dL) 159 H 113 H Random Glucose Calcium Phosphorus Magnesium Total Bilirubin AST ALT Alkaline Phosphatase Total Protein Albumin Globulin Albumin/Globulin Ratio C. difficile Ag & Toxin
[2017-11-15] MEDS: (Novolin R) Insulin Human Regular 100 units/ml vial SC SCH ×4 (07:35→22:26)
[2017-11-15] MEDS: Vancomycin 125 MG/5 ML SOLN (ORAL/RECTAL) PO SCH ×5 (08:27→22:48)
--- NOTE | 2017-11-15 08:36 | CP.PCM.PN ---
<Linda Tejada - Last Filed: 11/15/17 10:27> Subjective - Date & Time of Evaluation Date of Evaluation: 11/15/17 Time of Evaluation: 07:00 - Subjective Subjective: Medicine Note for Hospitalist Service- Dr. Royal Patient was seen and examined at bedside. Patient reports she overall feels better. She continues having RUQ pain, especially when she sits up. She admits to abdominal pain (patient is 1 month post op). Admitted to 1 formed bowel movement overnight, nonbloody. Patient refused morning labs because she wants her diet to be advanced. She will be advanced to soft diet, and labs will be collected afterwards. Denied fever, chills, headache, SOB, chest pain, n/v/d/c, or urinary symptoms. Objective - Vital Signs/Intake and Output Vital Signs (last 24 hours): Temp Pulse Resp BP Pulse Ox 98.8 F 83 20 114/67 96 11/14/17 23:55 11/14/17 23:55 11/14/17 23:55 11/14/17 23:55 11/14/17 23:55 Intake and Output: 11/15/17 11/15/17 06:59 18:59 Intake Total 400 Output Total 1 Balance 399 - Medications Medications: Current Medications Alprazolam (Xanax) 0.25 mg PO TID PRN PRN Reason: Anxiety Stop: 11/17/17 23:11 Last Admin: 11/11/17 03:43 Dose: 0.25 mg Apixaban (Eliquis) 5 mg PO BID [facility] Last Admin: 11/14/17 18:33 Dose: 5 mg Diltiazem HCl (Cardizem) 60 mg PO Q6H [facility] Last Admin: 11/15/17 05:02 Dose: 60 mg Famotidine (Pepcid) 20 mg PO DAILY [facility] Last Admin: 11/14/17 10:18 Dose: 20 mg Insulin Human Regular (Novolin R) 0 unit SC ACHS [facility] PRN Reason: Protocol Last Admin: 11/14/17 21:59 Dose: Not Given Lactobacillus Acidophilus (Bacid Acidophilus) 1 cap PO BID [facility] Last Admin: 11/14/17 18:33 Dose: 1 cap Levothyroxine Sodium (Synthroid) 50 mcg PO DAILY@0630 [facility] Last Admin: 11/15/17 06:33 Dose: 50 mcg Losartan Potassium (Cozaar) 100 mg PO DAILY [facility] Last Admin: 11/14/17 10:18 Dose: 100 mg Metronidazole (Flagyl) 500 mg PO Q8H [facility] Mirtazapine (Remeron) 15 mg PO HS [facility] Last Admin: 11/14/17 22:22 Dose: 15 mg Rosuvastatin Calcium (Crestor) 5 mg NG HS [facility] Last Admin: 11/14/17 22:22 Dose: 5 mg Vancomycin HCl (Vancocin (Oral Or Rectal Use)) 250 mg PO QID [facility] - Labs Labs: 11/14/17 07:09 11/14/17 07:09 PT 16.5 SECONDS (9.7-12.2) H 11/10/17 17:28 INR 1.5 11/10/17 17:28 APTT 33 SECONDS (21-34) 11/10/17 17:28 - Additional Findings Additional findings: - Constitutional Appears: No Acute Distress - Head Exam Head Exam: NORMAL INSPECTION, NORMOCEPHALIC - Eye Exam Eye Exam: EOMI, Normal appearance, PERRL - ENT Exam ENT Exam: Mucous Membranes Moist - Respiratory Exam Respiratory Exam: Clear to Ausculation Bilateral, NORMAL BREATHING PATTERN. absent: Decreased Breath Sounds - Cardiovascular Exam Cardiovascular Exam: REGULAR RHYTHM, RRR - GI/Abdominal Exam GI & Abdominal Exam: Soft, Normal Bowel Sounds. absent: Distended, Tenderness - Extremities Exam Extremities Exam: Normal Inspection. absent: Pedal Edema, Tenderness - Neurological Exam Neurological Exam: Alert, Awake, CN II-XII Intact, Oriented x3 - Skin Skin Exam: Dry, Intact, Normal Color, Warm Assessment and Plan - Assessment and Plan (Free Text) Plan: C. diff Colitis ID Dr. Dominic Zapata- recs appreciated Imaging: CT Abdomen/Pelvis 11/10/17: Enterocolitis. Interval resolution of inflammation /fluid at the enteral anastomosis in the left upper quadrant. Interval decrease in bilateral pleural effusions and bibasilar airspace disease. Multiple hepatic cysts unchanged. Stool + for C. diff on admission, repeat cdiff 11/13 + Meds: Vancomycin 125 mg PO Q6H for 10 days starting 11/11/17 - increase to Vanco 250mg PO QID (11/15/17) Flagyl 500 mg PO Q8H for 10 days starting 11/11/17 Difcid if no response- NOT ON FORMULARY Thrombocytosis Thrombocytosis noted on labs today with platelets nearly 1400. This is likely a reactive response to the infection, however given the hx of breast cancer, the patient's oncologist Dr. Miller was contacted. He agrees that this is likely a reactive response but will be seeing the patient tomorrow. Follow up any recommendations Peripheral smear were ordered- follow up results Hx Bowel Ischemia (10/08/17: Exploratory laparotomy, small bowel resection and primary anastomosis) Surgery Consulted - Dr. Hinton- for post op check - surgical site healing well Hx Chest Pain, LBBB, CAD, CABG, Pacemaker, Aortic Stenosis, New Onset A-fib Was seen by Cardiology Dr. Childs upon last admission Eiliquis 5.0 mg PO 2x/day Cardizem 60 mg PO Q6H Cozaar 100 mg PO 1x/day Crestor 5 mg PO 1x/day Add Metoprolol Succinate 25 mg PO 1x/day IF there are any issues of uncontrolled blood pressure/heart rate as the patient was on this in the past Hx Sepsis Secondary UTI (Klebsiella and Yeast) Urine Culture 10/18/17 showed NO growth Urine Culture 10/26/17 showed Yeast species: treated with Fluconazole 100 mg IV 1x/day through 11/03/17 Hx Sputum (+) Yeast (10/18/17) Fluconazole 100 mg PO 1x/day and treated for 7 days Hx Bilateral PE CT Angio Chest 10/28/17: Bilateral Pulmonary Emboli involving lower lobe pulmonary artery branches. NO central pulmonary embolus Eliquis 5 mg PO 2x/day Hx Influenza A and Likely Hospital Acquired Pneumonia MDR Bilaterally Treated with Tamiflu, Zosyn, Ciprofloxacin, and Vancomycin during last admission Chest X Ray 11/10/17: right sided dual pacemaker, evidence of CABG, left lower base atlectasis Hx Melena/BRBPR Resolved EGD 10/18/17: esophageal ulcer 7 mm nonbleeding, duodenum with superficial ulceration, adherent blood clot in jejunum Was seen by GI Dr. Boland upon last admission Hx Liver Cysts Evaluated by GI Dr. Boland during last admission CT Abdomen/Pelvis 11/10/17 did NOT show any change in these cysts NO further workup at this time Hx Breast CA/Lumpectomy stable No acute intervention Hx HTN Cozaar 100 mg PO 1x/day Cardizem 60 mg PO Q6H Add Metoprolol Succinate 25 mg PO 1x/day IF there are any issues of uncontrolled blood pressure/heart rate as the patient was on this in the past Hx HLD Crestor 5 mg PO 1x/day Hx DM RISS Novolin R ACHS Hx Hypothyroidism Levothyroxine 50 mcg PO 1x/day Prophylaxis Acetaminophen 650 mg PO Q6H PRN Fever Xanax 0.25 mg PO TID PRN Anxiety Mirtazapine 15 mg PO HS for sleep Protonix 40 mg PO 1x/day Ensure Clear for now 3x/day DW Dr. Royal, Linda Tejada DO, PGY-1 <Dianne Royal V - Last Filed: 11/15/17 23:24> Objective - Vital Signs/Intake and Output Vital Signs (last 24 hours): Temp Pulse Resp BP Pulse Ox 98.0 F 96 H 20 108/71 98 11/15/17 16:19 11/15/17 16:19 11/15/17 16:19 11/15/17 16:19 11/15/17 16:19 - Medications Medications: Current Medications Alprazolam (Xanax) 0.25 mg PO TID PRN PRN Reason: Anxiety Stop: 11/17/17 23:11 Last Admin: 11/11/17 03:43 Dose: 0.25 mg Apixaban (Eliquis) 5 mg PO BID [facility] Last Admin: 11/15/17 18:23 Dose: 5 mg Diltiazem HCl (Cardizem) 60 mg PO Q6H [facility] Last Admin: 11/15/17 22:48 Dose: 60 mg Famotidine (Pepcid) 20 mg PO DAILY [facility] Last Admin: 11/15/17 10:26 Dose: 20 mg Metronidazole (Flagyl) 500 mg in 100 mls @ 100 mls/hr IVPB Q8 [facility] Insulin Human Regular (Novolin R) 0 unit SC ACHS [facility] PRN Reason: Protocol Lactobacillus Acidophilus (Bacid Acidophilus) 1 cap PO BID [facility] Last Admin: 11/15/17 18:22 Dose: 1 cap Levothyroxine Sodium (Synthroid) 50 mcg PO DAILY@0630 [facility] Last Admin: 11/15/17 06:33 Dose: 50 mcg Losartan Potassium (Cozaar) 100 mg PO DAILY [facility] Last Admin: 11/15/17 10:26 Dose: 100 mg Mirtazapine (Remeron) 15 mg PO HS [facility] Last Admin: 11/15/17 22:47 Dose: 15 mg Rosuvastatin Calcium (Crestor) 5 mg NG HS [facility] Last Admin: 11/15/17 22:48 Dose: 5 mg Vancomycin HCl (Vancocin (Oral Or Rectal Use)) 250 mg PO QID [facility] Last Admin: 11/15/17 22:48 Dose: 250 mg - Labs Labs: 11/15/17 11:21 11/15/17 11:27 PT 16.5 SECONDS (9.7-12.2) H 11/10/17 17:28 INR 1.5 11/10/17 17:28 APTT 33 SECONDS (21-34) 11/10/17 17:28 Attending/Attestation - Attestation I have personally seen and examined this patient.: Yes I have fully participated in the care of the patient.: Yes I have reviewed all pertinent clinical information, including history, physical exam and plan: Yes Notes (Text): Patient seen, examined and case discussed with medical physicist. Patient seen this morning on rounds about 9:45AM. Patient refused blood work this morning. Patient reports she really wants to eat. Patient denies abdominal pain. patient reports she see water diarrhea because all she is having is liquids. We have tried to patiently explain to her given her infectious diarrhea we don't advanced to more solid foods but patient is very adamant. Patient also advised to eat to help buildup her energy and nutrition. We will continue IV flagyl and increase PO vancomycin. Patient reports at time of our evaluation 2 bowel movements. Discussed with RNBasilia, white count has resolved, platelets remain high. Hemoglobin improved. Resident has spoken with ID, Dificid is not available on hospital formulary and patient may need transfer with diarrhea does not improve with this regimen to place that supports Dificid. We will repeat C. Dif and check. Electrolytes repeat for today Insulin sliding scale adjusted to low dose.
[2017-11-15] MEDS: Lactobacillus Acidophilus 500 MU Cap PO SCH ×2 (10:26→18:22)
[2017-11-15 11:37] LABS: BASO % 0.4 % (0.0-2.0); EOS # 0.2 K/uL (0.0-0.7); EOS % 2.4 % (0.0-4.0); HEMOGLOBIN 10.1 g/dL (11.0-16.0); LYMPH % 31.5 % (20.0-40.0); MEAN CELL VOLUME 88.7 fL (81.0-99.0); MEAN CORPUSCULAR HEMOGLOBIN 29.2 pg (27.0-31.0); MEAN PLATELET VOLUME 7.3 fL (7.2-11.7); MONO # 2.2 K/uL (0.0-0.8); MONO % 22.8 % (0.0-10.0); NEUT # 4.1 K/uL (1.8-7.0); NEUT % 42.9 % (50.0-75.0); RBC 3.45 Mil/uL (3.80-5.20); RED CELL DISTRIBUTION WIDTH 18.1 % (11.5-14.5); WHITE BLOOD COUNT 9.6 K/uL (4.8-10.8)
[2017-11-15 11:40] LABS: PLATELET COUNT 924 K/uL (130-400)
[2017-11-15 11:57] LABS: ALB/GLOB RATIO 0.7 (1.0-2.1); ALBUMIN 2.2 g/dL (3.5-5.0); ALT/SGPT 21 U/L (9-52); AST/SGOT 16 U/L (14-36); BLOOD UREA NITROGEN 6 mg/dL (7-17); CALCIUM 8.4 mg/dl (8.6-10.4); GFR AFRICAN-AMERICAN > 60; GFR NON-AFRICAN AMERICAN > 60; MAGNESIUM 1.5 mg/dL (1.6-2.3)
[2017-11-15 12:23] LABS: ANISOCYTOSIS SLIGHT; BANDS 1 % (0-2); EOSINOPHIL 5 % (0-4); HYPOCHROMIC SLIGHT; LYMPHOCYTE 24 % (20-40); MONOCYTE 18 % (0-10); NEUTROPHIL 52 % (50-75); PLATELET ESTIMATE INCREASED (NORMAL); POLYCHROMIC SLIGHT; TOTAL CELLS COUNTED 100
[2017-11-15] MEDS: Potassium Chloride 20 mEq/15 ml LIQ UD PO SCH ×2 (15:30→18:21)
[2017-11-15] MEDS: Magnesium Sulfate 1 gm in D5W 1 GM/100 ML BAG IVPB SCH ×2 (15:34→15:45)
[2017-11-16] MEDS: Levothyroxine 50 MCG TAB PO SCH (06:15)
[2017-11-16] MEDS: (Novolin R) Insulin Human Regular 100 units/ml vial SC SCH ×4 (07:30→22:15)
[2017-11-16 08:12] LABS: BASO # 0.1 K/uL (0.0-0.2); BASO % 0.8 % (0.0-2.0); EOS # 0.3 K/uL (0.0-0.7); EOS % 2.9 % (0.0-4.0); HEMOGLOBIN 10.2 g/dL (11.0-16.0); LYMPH # 3.3 K/uL (1.0-4.3); LYMPH % 34.2 % (20.0-40.0); MEAN CELL VOLUME 87.5 fL (81.0-99.0); MEAN CORPUSCULAR HEMOGLOBIN 29.7 pg (27.0-31.0); MONO # 2.2 K/uL (0.0-0.8); MONO % 22.8 % (0.0-10.0); NEUT # 3.8 K/uL (1.8-7.0); NEUT % 39.3 % (50.0-75.0); NRBC % 0.1 % (0.0-2.0); RBC 3.43 Mil/uL (3.80-5.20); WHITE BLOOD COUNT 9.6 K/uL (4.8-10.8)
[2017-11-16 08:14] LABS: PLATELET COUNT 906 K/uL (130-400)
[2017-11-16 08:31] LABS: ALB/GLOB RATIO 0.7 (1.0-2.1); ALBUMIN 2.2 g/dL (3.5-5.0); ALT/SGPT 22 U/L (9-52); AST/SGOT 12 U/L (14-36); BLOOD UREA NITROGEN 4 mg/dL (7-17); CALCIUM 8.3 mg/dl (8.6-10.4); GFR AFRICAN-AMERICAN > 60; GFR NON-AFRICAN AMERICAN > 60; MAGNESIUM 1.8 mg/dL (1.6-2.3)
[2017-11-16 09:11] LABS: ANISOCYTOSIS SLIGHT; EOSINOPHIL 5 % (0-4); HYPOCHROMIC SLIGHT; LYMPHOCYTE 30 % (20-40); MONOCYTE 23 % (0-10); NEUTROPHIL 42 % (50-75); PLATELET ESTIMATE INCREASED (NORMAL); POIKILOCYTOSIS SLIGHT; TOTAL CELLS COUNTED 100
--- NOTE | 2017-11-16 10:59 | CP.PCM.PN ---
<Linda Tejada - Last Filed: 11/16/17 10:54> Subjective - Date & Time of Evaluation Date of Evaluation: 11/16/17 Time of Evaluation: 09:00 - Subjective Subjective: Medicine Note for Hospitalist Service- Dr. Royal Patient was seen and examined at bedside. Patient reports she had 2 formed bowel movements since yesterday. Tolerating diet. Mild intermittent RUQ pain. Denied fever, chills, headache, SOB, chest pain, n/v/d/c, or urinary symptoms. Objective - Vital Signs/Intake and Output Vital Signs (last 24 hours): Temp Pulse Resp BP Pulse Ox 97.8 F 93 H 20 112/66 98 11/16/17 07:50 11/16/17 07:50 11/16/17 07:50 11/16/17 07:50 11/16/17 07:50 - Medications Medications: Current Medications Alprazolam (Xanax) 0.25 mg PO TID PRN PRN Reason: Anxiety Stop: 11/17/17 23:11 Last Admin: 11/11/17 03:43 Dose: 0.25 mg Apixaban (Eliquis) 5 mg PO BID [facility] Last Admin: 11/15/17 18:23 Dose: 5 mg Diltiazem HCl (Cardizem) 60 mg PO Q6H [facility] Last Admin: 11/16/17 06:15 Dose: 60 mg Famotidine (Pepcid) 20 mg PO DAILY [facility] Last Admin: 11/15/17 10:26 Dose: 20 mg Metronidazole (Flagyl) 500 mg in 100 mls @ 100 mls/hr IVPB Q8 [facility] Insulin Human Regular (Novolin R) 0 unit SC ACHS [facility] PRN Reason: Protocol Lactobacillus Acidophilus (Bacid Acidophilus) 1 cap PO BID [facility] Last Admin: 11/15/17 18:22 Dose: 1 cap Levothyroxine Sodium (Synthroid) 50 mcg PO DAILY@0630 [facility] Last Admin: 11/16/17 06:15 Dose: 50 mcg Losartan Potassium (Cozaar) 100 mg PO DAILY [facility] Last Admin: 11/15/17 10:26 Dose: 100 mg Mirtazapine (Remeron) 15 mg PO HS [facility] Last Admin: 11/15/17 22:47 Dose: 15 mg Rosuvastatin Calcium (Crestor) 5 mg NG HS [facility] Last Admin: 11/15/17 22:48 Dose: 5 mg Vancomycin HCl (Vancocin (Oral Or Rectal Use)) 250 mg PO QID [facility] Last Admin: 11/15/17 22:48 Dose: 250 mg - Labs Labs: 11/16/17 08:05 11/16/17 08:05 PT 16.5 SECONDS (9.7-12.2) H 11/10/17 17:28 INR 1.5 11/10/17 17:28 APTT 33 SECONDS (21-34) 11/10/17 17:28 - Additional Findings Additional findings: - Constitutional Appears: No Acute Distress - Head Exam Head Exam: NORMAL INSPECTION, NORMOCEPHALIC - Eye Exam Eye Exam: EOMI, Normal appearance, PERRL - ENT Exam ENT Exam: Mucous Membranes Moist - Respiratory Exam Respiratory Exam: Clear to Ausculation Bilateral, NORMAL BREATHING PATTERN. absent: Decreased Breath Sounds - Cardiovascular Exam Cardiovascular Exam: REGULAR RHYTHM, RRR - GI/Abdominal Exam GI & Abdominal Exam: Soft, Normal Bowel Sounds. absent: Distended, Tenderness - Extremities Exam Extremities Exam: Normal Inspection. absent: Pedal Edema, Tenderness - Neurological Exam Neurological Exam: Alert, Awake, CN II-XII Intact, Oriented x3 - Skin Skin Exam: Dry, Intact, Normal Color, Warm Assessment and Plan - Assessment and Plan (Free Text) Plan: C. diff Colitis ID Dr. Dominic Zapata- [facility] appreciated Patient is clinically improving, her labs reflect this as well Imaging: CT Abdomen/Pelvis 11/10/17: Enterocolitis. Interval resolution of inflammation /fluid at the enteral anastomosis in the left upper quadrant. Interval decrease in bilateral pleural effusions and bibasilar airspace disease. Multiple hepatic cysts unchanged. Stool + for C. diff on admission, repeat cdiff 11/13 +, pending repeat c. Diff Meds: Vancomycin 125 mg PO Q6H for 10 days starting 11/11/17 - increase to Vanco 250mg PO QID (11/15/17) Flagyl 500 mg PO Q8H for 10 days starting 11/11/17 Difcid if no response- NOT ON FORMULARY Thrombocytosis Thrombocytosis noted on labs today with platelets nearly 1400. This is likely a reactive response to the infection, however given the hx of breast cancer, the patient's oncologist Dr. Miller was contacted. He agrees that this is likely a reactive response but will be seeing the patient tomorrow. Follow up any recommendations Peripheral smear were ordered- follow up results Hx Bowel Ischemia (10/08/17: Exploratory laparotomy, small bowel resection and primary anastomosis) Surgery Consulted - Dr. Hinton- for post op check - surgical site healing well Hx Chest Pain, LBBB, CAD, CABG, Pacemaker, Aortic Stenosis, New Onset A-fib Was seen by Cardiology Dr. Childs upon last admission Eiliquis 5.0 mg PO 2x/day Cardizem 60 mg PO Q6H Cozaar 100 mg PO 1x/day Crestor 5 mg PO 1x/day Add Metoprolol Succinate 25 mg PO 1x/day IF there are any issues of uncontrolled blood pressure/heart rate as the patient was on this in the past Hx Sepsis Secondary UTI (Klebsiella and Yeast) Urine Culture 10/18/17 showed NO growth Urine Culture 10/26/17 showed Yeast species: treated with Fluconazole 100 mg IV 1x/day through 11/03/17 Hx Sputum (+) Yeast (10/18/17) Fluconazole 100 mg PO 1x/day and treated for 7 days Hx Bilateral PE CT Angio Chest 10/28/17: Bilateral Pulmonary Emboli involving lower lobe pulmonary artery branches. NO central pulmonary embolus Eliquis 5 mg PO 2x/day Hx Influenza A and Likely Hospital Acquired Pneumonia MDR Bilaterally Treated with Tamiflu, Zosyn, Ciprofloxacin, and Vancomycin during last admission Chest X Ray 11/10/17: right sided dual pacemaker, evidence of CABG, left lower base atlectasis Hx Melena/BRBPR Resolved EGD 10/18/17: esophageal ulcer 7 mm nonbleeding, duodenum with superficial ulceration, adherent blood clot in jejunum Was seen by GI Dr. Boland upon last admission Hx Liver Cysts Evaluated by GI Dr. Boland during last admission CT Abdomen/Pelvis 11/10/17 did NOT show any change in these cysts NO further workup at this time Hx Breast CA/Lumpectomy stable No acute intervention Hx HTN Cozaar 100 mg PO 1x/day Cardizem 60 mg PO Q6H Add Metoprolol Succinate 25 mg PO 1x/day IF there are any issues of uncontrolled blood pressure/heart rate as the patient was on this in the past Hx HLD Crestor 5 mg PO 1x/day Hx DM RISS Novolin R ACHS Hx Hypothyroidism Levothyroxine 50 mcg PO 1x/day Prophylaxis Acetaminophen 650 mg PO Q6H PRN Fever Xanax 0.25 mg PO TID PRN Anxiety Mirtazapine 15 mg PO HS for sleep Protonix 40 mg PO 1x/day Ensure Clear for now 3x/day DW Dr. Royal, Linda Tejada DO, PGY-1 <Dianne Royal V - Last Filed: 11/16/17 21:36> Objective - Vital Signs/Intake and Output Vital Signs (last 24 hours): Temp Pulse Resp BP Pulse Ox 97.2 F L 81 18 100/63 97 11/16/17 16:00 11/16/17 18:41 11/16/17 16:00 11/16/17 18:41 11/16/17 16:00 - Medications Medications: Current Medications Alprazolam (Xanax) 0.25 mg PO TID PRN PRN Reason: Anxiety Stop: 11/17/17 23:11 Last Admin: 11/11/17 03:43 Dose: 0.25 mg Apixaban (Eliquis) 5 mg PO BID [facility] Last Admin: 11/16/17 18:38 Dose: 5 mg Diltiazem HCl (Cardizem) 60 mg PO Q6H [facility] Last Admin: 11/16/17 18:39 Dose: 60 mg Famotidine (Pepcid) 20 mg PO DAILY [facility] Last Admin: 11/16/17 11:00 Dose: 20 mg Metronidazole (Flagyl) 500 mg in 100 mls @ 100 mls/hr IVPB Q8 [facility] Insulin Human Regular (Novolin R) 0 unit SC ACHS [facility] PRN Reason: Protocol Last Admin: 11/16/17 17:30 Dose: Not Given Lactobacillus Acidophilus (Bacid Acidophilus) 1 cap PO BID [facility] Last Admin: 11/16/17 18:39 Dose: 1 cap Levothyroxine Sodium (Synthroid) 50 mcg PO DAILY@0630 [facility] Last Admin: 11/16/17 06:15 Dose: 50 mcg Losartan Potassium (Cozaar) 100 mg PO DAILY [facility] Last Admin: 11/16/17 11:00 Dose: 100 mg Mirtazapine (Remeron) 15 mg PO HS [facility] Last Admin: 11/16/17 21:22 Dose: 15 mg Rosuvastatin Calcium (Crestor) 5 mg NG HS [facility] Last Admin: 11/16/17 21:21 Dose: 5 mg Vancomycin HCl (Vancocin (Oral Or Rectal Use)) 250 mg PO QID [facility] Last Admin: 11/16/17 21:22 Dose: 250 mg - Labs Labs: 11/16/17 08:05 11/16/17 08:05 PT 16.5 SECONDS (9.7-12.2) H 11/10/17 17:28 INR 1.5 11/10/17 17:28 APTT 33 SECONDS (21-34) 11/10/17 17:28 Attending/Attestation - Attestation I have personally seen and examined this patient.: Yes I have fully participated in the care of the patient.: Yes I have reviewed all pertinent clinical information, including history, physical exam and plan: Yes Notes (Text): Patient seen, examined, discussed with medical engineer. Patient seen this afternoon with medical engineer. Patient reports she is feeling better however she's had about 3-4 loose bowel movements. Patient denies abdominal pain. Patient reports she would like a more substantive diet and reported she has tolerated solids and liquids that she has had today. Patient's white count is normalized however platelets remain elevated. Patient reports he was visited by her outboard motorboat operator yesterday. We are continuing patient' s antibiotics until repeat C. difficile comes back to see if it's being treated with antibiotic therapy or if we need to consider alternative therapy. Patient reports she does want to go home from the hospital she does not want rehabilitation and is requesting for visiting home nurse and home services will need to follow-up with social and case management.
[2017-11-16] MEDS: Lactobacillus Acidophilus 500 MU Cap PO SCH ×2 (11:00→18:39)
[2017-11-16] MEDS: Vancomycin 125 MG/5 ML SOLN (ORAL/RECTAL) PO SCH ×4 (11:00→21:22)
[2017-11-17] MEDS: metroNIDAZOLE IV 500 mg/100 ml 500 MG/100 ML BAG IVPB SCH ×3 (06:03→22:22)
[2017-11-17] MEDS: Levothyroxine 50 MCG TAB PO SCH (06:03)
[2017-11-17] MEDS: (Novolin R) Insulin Human Regular 100 units/ml vial SC SCH ×4 (07:52→21:51)
[2017-11-17 08:09] LABS: BASO # 0.1 K/uL (0.0-0.2); BASO % 0.6 % (0.0-2.0); EOS # 0.2 K/uL (0.0-0.7); EOS % 2.9 % (0.0-4.0); HEMOGLOBIN 9.9 g/dL (11.0-16.0); LYMPH # 2.8 K/uL (1.0-4.3); LYMPH % 33.8 % (20.0-40.0); MEAN CELL VOLUME 88.1 fL (81.0-99.0); MEAN CORPUSCULAR HEMOGLOBIN 28.8 pg (27.0-31.0); MEAN CORPUSCULAR HGB CONC 32.7 g/dL (33.0-37.0); MEAN PLATELET VOLUME 6.9 fL (7.2-11.7); MONO # 1.6 K/uL (0.0-0.8); MONO % 19.6 % (0.0-10.0); NEUT # 3.6 K/uL (1.8-7.0); NEUT % 43.1 % (50.0-75.0); NRBC % 0.1 % (0.0-2.0); RBC 3.44 Mil/uL (3.80-5.20); RED CELL DISTRIBUTION WIDTH 18.3 % (11.5-14.5); WHITE BLOOD COUNT 8.4 K/uL (4.8-10.8)
[2017-11-17 09:50] LABS: ALB/GLOB RATIO 0.7 (1.0-2.1); ALBUMIN 2.2 g/dL (3.5-5.0); ALT/SGPT 13 U/L (9-52); AST/SGOT 23 U/L (14-36); BLOOD UREA NITROGEN 6 mg/dL (7-17); CALCIUM 8.5 mg/dl (8.6-10.4); GFR AFRICAN-AMERICAN > 60; GFR NON-AFRICAN AMERICAN > 60; MAGNESIUM 1.6 mg/dL (1.6-2.3)
[2017-11-17] MEDS: Vancomycin 125 MG/5 ML SOLN (ORAL/RECTAL) PO SCH ×4 (10:09→22:23)
[2017-11-17] MEDS: Lactobacillus Acidophilus 500 MU Cap PO SCH ×2 (10:10→18:35)
[2017-11-17] MEDS ORDERED: Simethicone 80 mg Chewtab PO PRN (11:58)
--- NOTE | 2017-11-17 11:58 | CP.PCM.PN ---
<Linda Tejada - Last Filed: 11/17/17 11:55> Subjective - Date & Time of Evaluation Date of Evaluation: 11/17/17 Time of Evaluation: 08:00 - Subjective Subjective: Medicine Note for Hospitalist Service- Dr. Royal Patient was seen and examined at bedside. Patient reports she had 1 formed bowel movements overnight. Tolerating diet. Mild intermittent RUQ pain. Denied fever, chills, headache, SOB, chest pain, n/v/d/c, or urinary symptoms. Objective - Vital Signs/Intake and Output Vital Signs (last 24 hours): Temp Pulse Resp BP Pulse Ox 97.6 F 96 H 20 108/66 100 11/17/17 08:12 11/17/17 08:12 11/17/17 08:12 11/17/17 08:12 11/17/17 08:12 - Medications Medications: Current Medications Acetaminophen (Tylenol 325mg Tab) 650 mg PO Q6 PRN PRN Reason: Pain, Mild (1-3) Apixaban (Eliquis) 5 mg PO BID [facility] Last Admin: 11/17/17 10:09 Dose: 5 mg Diltiazem HCl (Cardizem) 60 mg PO Q6H [facility] Last Admin: 11/17/17 06:03 Dose: 60 mg Famotidine (Pepcid) 20 mg PO DAILY [facility] Last Admin: 11/17/17 10:07 Dose: 20 mg Metronidazole (Flagyl) 500 mg in 100 mls @ 100 mls/hr IVPB Q8 [facility] Last Admin: 11/17/17 06:03 Dose: 100 mls/hr Insulin Human Regular (Novolin R) 0 unit SC ACHS [facility] PRN Reason: Protocol Last Admin: 11/17/17 07:52 Dose: Not Given Lactobacillus Acidophilus (Bacid Acidophilus) 1 cap PO BID [facility] Last Admin: 11/17/17 10:10 Dose: 1 cap Levothyroxine Sodium (Synthroid) 50 mcg PO DAILY@0630 [facility] Last Admin: 11/17/17 06:03 Dose: 50 mcg Losartan Potassium (Cozaar) 100 mg PO DAILY [facility] Last Admin: 11/17/17 10:10 Dose: 100 mg Mirtazapine (Remeron) 15 mg PO HS [facility] Last Admin: 11/16/17 21:22 Dose: 15 mg Rosuvastatin Calcium (Crestor) 5 mg NG HS [facility] Last Admin: 11/16/17 21:21 Dose: 5 mg Vancomycin HCl (Vancocin (Oral Or Rectal Use)) 250 mg PO QID [facility] Last Admin: 11/17/17 10:09 Dose: 250 mg - Labs Labs: 11/17/17 07:56 11/17/17 07:56 PT 16.5 SECONDS (9.7-12.2) H 11/10/17 17:28 INR 1.5 11/10/17 17:28 APTT 33 SECONDS (21-34) 11/10/17 17:28 - Additional Findings Additional findings: - Constitutional Appears: No Acute Distress - Head Exam Head Exam: NORMAL INSPECTION, NORMOCEPHALIC - Eye Exam Eye Exam: EOMI, Normal appearance, PERRL - ENT Exam ENT Exam: Mucous Membranes Moist - Respiratory Exam Respiratory Exam: Clear to Ausculation Bilateral, NORMAL BREATHING PATTERN. absent: Decreased Breath Sounds - Cardiovascular Exam Cardiovascular Exam: REGULAR RHYTHM, RRR - GI/Abdominal Exam GI & Abdominal Exam: Soft, Normal Bowel Sounds. absent: Distended, Tenderness - Extremities Exam Extremities Exam: Normal Inspection. absent: Pedal Edema, Tenderness - Neurological Exam Neurological Exam: Alert, Awake, CN II-XII Intact, Oriented x3 - Skin Skin Exam: Dry, Intact, Normal Color, Warm Assessment and Plan - Assessment and Plan (Free Text) Plan: C. diff Colitis ID Dr. Dominic Finnegan [facility] appreciated Patient is clinically improving, her labs reflect this as well Imaging: CT Abdomen/Pelvis 11/10/17: Enterocolitis. Interval resolution of inflammation /fluid at the enteral anastomosis in the left upper quadrant. Interval decrease in bilateral pleural effusions and bibasilar airspace disease. Multiple hepatic cysts unchanged. Stool + for C. diff on admission, repeat cdiff 11/13 +, Repeat c. Diff NEGATIVE Meds: Vancomycin 125 mg PO Q6H for 10 days starting 11/11/17 - increase to Vanco 250mg PO QID (11/15/17) Flagyl 500 mg PO Q8H for 10 days starting 11/11/17 Difcid if no response- NOT ON FORMULARY Thrombocytosis Thrombocytosis noted on labs today with platelets nearly 1400. This is likely a reactive response to the infection, however given the hx of breast cancer, the patient's oncologist Dr. Miller was contacted. He agrees that this is likely a reactive response but will be seeing the patient tomorrow. Follow up any recommendations Peripheral smear were ordered- follow up results Hx Bowel Ischemia (10/08/17: Exploratory laparotomy, small bowel resection and primary anastomosis) Surgery Consulted - Dr. Hinton- for post op check - surgical site healing well Hx Chest Pain, LBBB, CAD, CABG, Pacemaker, Aortic Stenosis, New Onset A-fib Was seen by Cardiology Dr. Childs upon last admission Eiliquis 5.0 mg PO 2x/day Cardizem 60 mg PO Q6H Cozaar 100 mg PO 1x/day Crestor 5 mg PO 1x/day Add Metoprolol Succinate 25 mg PO 1x/day IF there are any issues of uncontrolled blood pressure/heart rate as the patient was on this in the past Hx Sepsis Secondary UTI (Klebsiella and Yeast) Urine Culture 10/18/17 showed NO growth Urine Culture 10/26/17 showed Yeast species: treated with Fluconazole 100 mg IV 1x/day through 11/03/17 Hx Sputum (+) Yeast (10/18/17) Fluconazole 100 mg PO 1x/day and treated for 7 days Hx Bilateral PE CT Angio Chest 10/28/17: Bilateral Pulmonary Emboli involving lower lobe pulmonary artery branches. NO central pulmonary embolus Eliquis 5 mg PO 2x/day Hx Influenza A and Likely Hospital Acquired Pneumonia MDR Bilaterally Treated with Tamiflu, Zosyn, Ciprofloxacin, and Vancomycin during last admission Chest X Ray 11/10/17: right sided dual pacemaker, evidence of CABG, left lower base atlectasis Hx Melena/BRBPR Resolved EGD 10/18/17: esophageal ulcer 7 mm nonbleeding, duodenum with superficial ulceration, adherent blood clot in jejunum Was seen by GI Dr. Boland upon last admission Hx Liver Cysts Evaluated by GI Dr. Boland during last admission CT Abdomen/Pelvis 11/10/17 did NOT show any change in these cysts NO further workup at this time Hx Breast CA/Lumpectomy stable No acute intervention Hx HTN Cozaar 100 mg PO 1x/day Cardizem 60 mg PO Q6H Add Metoprolol Succinate 25 mg PO 1x/day IF there are any issues of uncontrolled blood pressure/heart rate as the patient was on this in the past Hx HLD Crestor 5 mg PO 1x/day Hx DM RISS Novolin R ACHS Hx Hypothyroidism Levothyroxine 50 mcg PO 1x/day Prophylaxis Acetaminophen 650 mg PO Q6H PRN Fever Xanax 0.25 mg PO TID PRN Anxiety Mirtazapine 15 mg PO HS for sleep Protonix 40 mg PO 1x/day Ensure Clear for now 3x/day Disposition: Patient needs to work with PT to ambulate so we can safely discharged patient home with Home PT, visiting nurse and homemaker. DW Dr. Royal, Linda Tejada DO, PGY-1 <Dianne Royal V - Last Filed: 11/17/17 22:40> Objective - Vital Signs/Intake and Output Vital Signs (last 24 hours): Temp Pulse Resp BP Pulse Ox 98.5 F 92 H 18 136/73 98 11/17/17 17:17 11/17/17 17:17 11/17/17 17:17 11/17/17 17:17 11/17/17 17:17 - Medications Medications: Current Medications Acetaminophen (Tylenol 325mg Tab) 650 mg PO Q6 PRN PRN Reason: Pain, Mild (1-3) Apixaban (Eliquis) 5 mg PO BID [facility] Last Admin: 11/17/17 18:35 Dose: 5 mg Diltiazem HCl (Cardizem) 60 mg PO Q6H [facility] Last Admin: 11/17/17 22:23 Dose: 60 mg Famotidine (Pepcid) 20 mg PO DAILY [facility] Last Admin: 11/17/17 10:07 Dose: 20 mg Metronidazole (Flagyl) 500 mg in 100 mls @ 100 mls/hr IVPB Q8 [facility] Last Admin: 11/17/17 22:22 Dose: 100 mls/hr Insulin Human Regular (Novolin R) 0 unit SC [facility] PRN Reason: Protocol Last Admin: 11/17/17 21:51 Dose: Not Given Lactobacillus Acidophilus (Bacid Acidophilus) 1 cap PO BID [facility] Last Admin: 11/17/17 18:35 Dose: 1 cap Levothyroxine Sodium (Synthroid) 50 mcg PO DAILY@0630 [facility] Last Admin: 11/17/17 06:03 Dose: 50 mcg Losartan Potassium (Cozaar) 100 mg PO DAILY [facility] Last Admin: 11/17/17 10:10 Dose: 100 mg Mirtazapine (Remeron) 15 mg PO HS [facility] Last Admin: 11/17/17 22:22 Dose: 15 mg Rosuvastatin Calcium (Crestor) 5 mg NG HS [facility] Last Admin: 11/17/17 22:22 Dose: 5 mg Simethicone (Mylicon Chew Tab) 80 mg PO TID PRN PRN Reason: GI distress Vancomycin HCl (Vancocin (Oral Or Rectal Use)) 250 mg PO QID [facility] Last Admin: 11/17/17 22:23 Dose: 250 mg - Labs Labs: 11/17/17 07:56 11/17/17 07:56 PT 16.5 SECONDS (9.7-12.2) H 11/10/17 17:28 INR 1.5 11/10/17 17:28 APTT 33 SECONDS (21-34) 11/10/17 17:28 Attending/Attestation - Attestation I have personally seen and examined this patient.: Yes I have fully participated in the care of the patient.: Yes I have reviewed all pertinent clinical information, including history, physical exam and plan: Yes Notes (Text): Patient seen, examined, discussed with medical i d sales. Patient seen this afternoon with medical i d sales. Patient reports she is feeling better. Patient reports she would like to try more solid food. Patient reports diarrhea is improved but reports she has not had real food. Patient's diet advanced. Repeat C. Dif is negative. Resident has spoken with the case management and social work to make arrangements for patient to have physical therapy, home w services and walker provided to the patient since she refuses rehab. I have discussed with ID this evening, in light of negative C. Dif, he recommends Vancomycin 250mg PO tid for 3 weeks and patient will need to follow- up in 2 weeks to lower the dose.
--- NOTE | 2017-11-17 18:40 | CP.PCM.PN ---
Subjective - Date & Time of Evaluation Date of Evaluation: 11/17/17 Time of Evaluation: 07:00 - Subjective Subjective: slow progress repeat c diff neg Objective - Vital Signs/Intake and Output Vital Signs (last 24 hours): Temp Pulse Resp BP Pulse Ox 98.5 F 92 H 18 136/73 98 11/17/17 17:17 11/17/17 17:17 11/17/17 17:17 11/17/17 17:17 11/17/17 17:17 - Medications Medications: Current Medications Acetaminophen (Tylenol 325mg Tab) 650 mg PO Q6 PRN PRN Reason: Pain, Mild (1-3) Apixaban (Eliquis) 5 mg PO BID [facility] Last Admin: 11/17/17 10:09 Dose: 5 mg Diltiazem HCl (Cardizem) 60 mg PO Q6H [facility] Last Admin: 11/17/17 12:08 Dose: 60 mg Famotidine (Pepcid) 20 mg PO DAILY [facility] Last Admin: 11/17/17 10:07 Dose: 20 mg Metronidazole (Flagyl) 500 mg in 100 mls @ 100 mls/hr IVPB Q8 [facility] Last Admin: 11/17/17 13:21 Dose: 100 mls/hr Insulin Human Regular (Novolin R) 0 unit SC ACHS [facility] PRN Reason: Protocol Last Admin: 11/17/17 12:15 Dose: 1 unit Lactobacillus Acidophilus (Bacid Acidophilus) 1 cap PO BID [facility] Last Admin: 11/17/17 10:10 Dose: 1 cap Levothyroxine Sodium (Synthroid) 50 mcg PO DAILY@0630 [facility] Last Admin: 11/17/17 06:03 Dose: 50 mcg Losartan Potassium (Cozaar) 100 mg PO DAILY [facility] Last Admin: 11/17/17 10:10 Dose: 100 mg Mirtazapine (Remeron) 15 mg PO HS [facility] Last Admin: 11/16/17 21:22 Dose: 15 mg Rosuvastatin Calcium (Crestor) 5 mg NG HS [facility] Last Admin: 11/16/17 21:21 Dose: 5 mg Simethicone (Mylicon Chew Tab) 80 mg PO TID PRN PRN Reason: GI distress Vancomycin HCl (Vancocin (Oral Or Rectal Use)) 250 mg PO QID [facility] Last Admin: 11/17/17 13:20 Dose: 250 mg - Labs Labs: 11/17/17 07:56 11/17/17 07:56 PT 16.5 SECONDS (9.7-12.2) H 11/10/17 17:28 INR 1.5 11/10/17 17:28 APTT 33 SECONDS (21-34) 11/10/17 17:28 - Constitutional Appears: Non-toxic, Chronically Ill - Head Exam Head Exam: NORMOCEPHALIC - Eye Exam Eye Exam: absent: Scleral icterus - ENT Exam ENT Exam: Mucous Membranes Dry - Neck Exam Neck Exam: absent: Lymphadenopathy - Respiratory Exam Respiratory Exam: Decreased Breath Sounds - Cardiovascular Exam Cardiovascular Exam: REGULAR RHYTHM - GI/Abdominal Exam GI & Abdominal Exam: Distended, Soft - Rectal Exam Rectal Exam: Deferred - Exam Exam: NORMAL INSPECTION Assessment and Plan (1) Abdominal pain Status: Acute (2) C. difficile colitis Status: Acute (3) Diabetes mellitus Status: Acute (4) Enterocolitis Status: Acute - Assessment and Plan (Free Text) Assessment: cont po vanco for 21 days GI follow up
[2017-11-18] MEDS: metroNIDAZOLE IV 500 mg/100 ml 500 MG/100 ML BAG IVPB SCH ×2 (05:00→13:11)
[2017-11-18] MEDS: Levothyroxine 50 MCG TAB PO SCH (05:53)
--- NOTE | 2017-11-18 07:06 | CP.PCM.DIS ---
<Linda Tejada - Last Filed: 11/18/17 14:04> Provider - Provider Date of Admission: 11/10/17 20:11 Attending physician: Dianne Royal DO Time Spent in preparation of Discharge (in minutes): 55 Hospital Course - Lab Results Lab Results: Micro Results 11/10/17 22:00 Blood Blood Culture - Final NO GROWTH AFTER 5 DAYS 11/10/17 22:00 Blood Gram Stain - Final TEST NOT PERFORMED 11/10/17 22:30 Blood Blood Culture - Final NO GROWTH AFTER 5 DAYS 11/10/17 22:30 Blood Gram Stain - Final TEST NOT PERFORMED 11/10/17 17:05 Stool Stool Culture - Final NO SALMONELLA, SHIGELLA OR CAMPYLOBACTER ISOLATED. Most Recent Lab Values WBC 8.4 K/uL (4.8-10.8) 11/17/17 07:56 RBC 3.44 Mil/uL (3.80-5.20) L 11/17/17 07:56 Hgb 9.9 g/dL (11.0-16.0) L 11/17/17 07:56 Hct 30.3 % (34.0-47.0) L 11/17/17 07:56 MCV 88.1 fL (81.0-99.0) 11/17/17 07:56 MCH 28.8 pg (27.0-31.0) 11/17/17 07:56 MCHC 32.7 g/dL (33.0-37.0) L 11/17/17 07:56 RDW 18.3 % (11.5-14.5) H 11/17/17 07:56 Plt Count 853 K/uL (130-400) H 11/17/17 07:56 MPV 6.9 fL (7.2-11.7) L 11/17/17 07:56 Neut % (Auto) 43.1 % (50.0-75.0) L 11/17/17 07:56 Lymph % (Auto) 33.8 % (20.0-40.0) 11/17/17 07:56 [place] % (Auto) 19.6 % (0.0-10.0) H 11/17/17 07:56 Eos % (Auto) 2.9 % (0.0-4.0) 11/17/17 07:56 Baso % (Auto) 0.6 % (0.0-2.0) 11/17/17 07:56 Neut # (Auto) 3.6 K/uL (1.8-7.0) 11/17/17 07:56 Lymph # (Auto) 2.8 K/uL (1.0-4.3) 11/17/17 07:56 [place] # (Auto) 1.6 K/uL (0.0-0.8) H 11/17/17 07:56 Eos # (Auto) 0.2 K/uL (0.0-0.7) 11/17/17 07:56 Baso # (Auto) 0.1 K/uL (0.0-0.2) 11/17/17 07:56 Neutrophils % (Manual) 42 % (50-75) L 11/16/17 08:05 Band Neutrophils % 1 % (0-2) 11/15/17 11:21 Lymphocytes % (Manual) 30 % (20-40) 11/16/17 08:05 Monocytes % (Manual) 23 % (0-10) H 11/16/17 08:05 Eosinophils % (Manual) 5 % (0-4) H 11/16/17 08:05 Myelocytes % 1 % (0-0) H 11/13/17 08:16 Platelet Estimate Increased (NORMAL) H 11/16/17 08:05 Large Platelets Present 11/13/17 08:16 Polychromasia Slight 11/15/17 11:21 Hypochromasia (manual) Slight 11/16/17 08:05 Poikilocytosis (manual Slight 11/16/17 08:05 Anisocytosis (manual) Slight 11/16/17 08:05 Smear Path Review 11/13/17 08:16 PT 16.5 SECONDS (9.7-12.2) H 11/10/17 17:28 INR 1.5 11/10/17 17:28 APTT 33 SECONDS (21-34) 11/10/17 17:28 Sodium 139 mmol/L (132-148) 11/17/17 07:56 Potassium 3.9 mmol/L (3.6-5.2) 11/17/17 07:56 Chloride 106 mmol/L (98-107) 11/17/17 07:56 Carbon Dioxide 24 mmol/L (22-30) 11/17/17 07:56 Anion Gap 13 (10-20) 11/17/17 07:56 BUN 6 mg/dL (7-17) L 11/17/17 07:56 Creatinine 0.7 mg/dL (0.7-1.2) 11/17/17 07:56 Est GFR ( Amer) > 60 11/17/17 07:56 Est GFR (Non-Af Amer) > 60 11/17/17 07:56 POC Glucose (mg/dL) 103 mg/dL (65-110) 11/18/17 06:29 Random Glucose 129 mg/dL (65-105) H 11/17/17 07:56 Lactic Acid 2.5 mmol/L (0.7-2.1) H 11/10/17 17:28 Calcium 8.5 mg/dl (8.6-10.4) L 11/17/17 07:56 Phosphorus 3.8 mg/dL (2.5-4.5) 11/17/17 07:56 Magnesium 1.6 mg/dL (1.6-2.3) 11/17/17 07:56 Total Bilirubin < 0.1 mg/dL (0.2-1.3) L 11/17/17 07:56 AST 23 U/L (14-36) 11/17/17 07:56 ALT 13 U/L (9-52) 11/17/17 07:56 Alkaline Phosphatase 142 U/L (38-126) H 11/17/17 07:56 Total Protein 5.4 g/dL (6.3-8.3) L 11/17/17 07:56 Albumin 2.2 g/dL (3.5-5.0) L 11/17/17 07:56 Globulin 3.2 gm/dL (2.2-3.9) 11/17/17 07:56 Albumin/Globulin Ratio 0.7 (1.0-2.1) L 11/17/17 07:56 Lipase 87 U/L (23-300) 11/10/17 17:28 Stool Occult Blood Positive (NEGATIVE) H 11/10/17 17:28 C. difficile Ag & Toxin Negative (NEGATIVE) 11/15/17 09:20 - Hospital Course Hospital Course: Upon Admission: CC: Abdominal pain HPI: Patient is a 77 year old Female with a past medical history of ischemic bowel resection, PE (B/L), HTN, HLD, DM, CAD, CABG, Hx of Breast Cancer (s/p lumpectomy), and Hypothyroidism presents to the ED with complaints of abdominal pain that radiates to her right flank and back. Patient reports the pain started 1 week ago and is constant. Patient states she believes its "pain from her liver cyst". Patient also reports having diarrhea starting Tuesday , that progressively worsened. She had 10 episodes of diarrhea yesterday. Patient states she has severe pain that she cannot bear. Patient denies having chest pain, palpitations, shortness of breath, nausea, vomiting, fevers, headaches, dizziness, dysuria, hematuria, melena, and hematochezia. PMD: Tony PMHx: ischemic bowel resection, B/L PE (10/2017), HTN, HLD, DM, CAD, CABG, Hx of Breast Cancer (s/p lumpectomy) and Hypothyroidism PSHx: ischemic bowel resection (10/08/17), Pacemaker (placed on the right due to Hx Breast Cancer) All: NKDA SocHx: Denied x 3 FHx: Strong Cardiac history, most family member of cardiac complications Medications: See EMR Throughout Hospital Course: C. diff Colitis ID Dr. Dominic adames appreciated Patient is clinically improving, her labs reflect this as well Imaging: CT Abdomen/Pelvis 11/10/17: Enterocolitis. Interval resolution of inflammation /fluid at the enteral anastomosis in the left upper quadrant. Interval decrease in bilateral pleural effusions and bibasilar airspace disease. Multiple hepatic cysts unchanged. Stool + for C. diff on admission, repeat cdiff 11/13 +, Repeat c. Diff NEGATIVE - As per Dr. Zapata-he recommends Vancomycin 250mg PO tid for 3 weeks and patient will need to follow-up in 2 weeks to lower the dose. Meds: Vancomycin 125 mg PO Q6H for 10 days starting 11/11/17 - increase to Vanco 250mg PO QID (11/15/17) Flagyl 500 mg PO Q8H for 10 days starting 11/11/17 Difcid if no response- NOT ON FORMULARY Thrombocytosis Thrombocytosis noted on labs today with platelets nearly 1400. This is likely a reactive response to the infection, however given the hx of breast cancer, the patient's oncologist Dr. Miller was contacted. He agrees that this is likely a reactive response but will be seeing the patient tomorrow. Follow up any recommendations Peripheral smear were ordered- follow up results Hx Bowel Ischemia (10/08/17: Exploratory laparotomy, small bowel resection and primary anastomosis) Surgery Consulted - Dr. Hinton- for post op check - surgical site healing well Hx Chest Pain, LBBB, CAD, CABG, Pacemaker, Aortic Stenosis, New Onset A-fib Was seen by Cardiology Dr. Childs upon last admission Eiliquis 5.0 mg PO 2x/day Cardizem 60 mg PO Q6H Cozaar 100 mg PO 1x/day Crestor 5 mg PO 1x/day Add Metoprolol Succinate 25 mg PO 1x/day IF there are any issues of uncontrolled blood pressure/heart rate as the patient was on this in the past Hx Sepsis Secondary UTI (Klebsiella and Yeast) Urine Culture 10/18/17 showed NO growth Urine Culture 10/26/17 showed Yeast species: treated with Fluconazole 100 mg IV 1x/day through 11/03/17 Hx Sputum (+) Yeast (10/18/17) Fluconazole 100 mg PO 1x/day and treated for 7 days Hx Bilateral PE CT Angio Chest 10/28/17: Bilateral Pulmonary Emboli involving lower lobe pulmonary artery branches. NO central pulmonary embolus Eliquis 5 mg PO 2x/day Hx Influenza A and Likely Hospital Acquired Pneumonia MDR Bilaterally Treated with Tamiflu, Zosyn, Ciprofloxacin, and Vancomycin during last admission Chest X Ray 11/10/17: right sided dual pacemaker, evidence of CABG, left lower base atlectasis Hx Melena/BRBPR Resolved EGD 10/18/17: esophageal ulcer 7 mm nonbleeding, duodenum with superficial ulceration, adherent blood clot in jejunum Was seen by GI Dr. Boland upon last admission Hx Liver Cysts Evaluated by GI Dr. Boland during last admission CT Abdomen/Pelvis 11/10/17 did NOT show any change in these cysts NO further workup at this time Hx Breast CA/Lumpectomy stable No acute intervention Hx HTN Cozaar 100 mg PO 1x/day Cardizem 60 mg PO Q6H Add Metoprolol Succinate 25 mg PO 1x/day IF there are any issues of uncontrolled blood pressure/heart rate as the patient was on this in the past Hx HLD Crestor 5 mg PO 1x/day Hx DM RISS Novolin R ACHS Hx Hypothyroidism Levothyroxine 50 mcg PO 1x/day This is a brief summary of the patient's hospital course. Please review EMR for full record. Discharge Exam - Head Exam Head Exam: NORMAL INSPECTION, NORMOCEPHALIC - Eye Exam Eye Exam: EOMI, Normal appearance, PERRL Pupil Exam: NORMAL ACCOMODATION - ENT Exam ENT Exam: Mucous Membranes Moist - Respiratory Exam Respiratory Exam: Clear to PA & Lateral, NORMAL BREATHING PATTERN. absent: Decreased Breath Sounds - Cardiovascular Exam Cardiovascular Exam: REGULAR RHYTHM, RRR, +S1, +S2 - GI/Abdominal Exam GI & Abdominal Exam: Normal Bowel Sounds, Soft, Unremarkable. absent: Distended - Rectal Exam Rectal Exam: Deferred - Extremities Exam Extremities exam: normal inspection, pedal pulses present - Neurological Exam Neurological exam: Alert, CN II-XII Intact, Oriented x3 - Psychiatric Exam Psychiatric exam: Normal Affect, Normal Mood - Skin Skin Exam: Dry, Intact, Normal Color, Warm Discharge Plan - Discharge Medications Prescriptions: Apixaban [Eliquis] 5 mg PO BID #60 tab diltiaZEM [Cardizem] 60 mg PO Q6H #120 tab Levothyroxine [Synthroid] 50 mcg PO DAILY@0630 #30 tab Losartan [Cozaar] 100 mg PO DAILY #30 tab metFORMIN [glucOPHAGE] 500 mg PO BID #60 tab Mirtazapine [Remeron] 15 mg PO HS #30 tab Rosuvastatin Calcium [Crestor] 5 mg NG HS #30 tab Saccharomyces Boulardii [Florastor] 250 mg PO BID #80 capsule Vancomycin [Vancocin (ORAL OR RECTAL USE)] 125 mg PO TID #63 soln - Follow Up Plan Condition: STABLE Disposition: HOME/ ROUTINE Instructions: Diarrhea in Adolescents and Adults, Saccharomyces boulardii, Acute Abdomen (Belly Pain), Pulmonary Embolism (Blood Clot in the Lungs) (DC), Diabetes Type 2 (DC), Apixaban, Clostridium difficile (DC), Diltiazem, Levothyroxine, Losartan, Metformin, Mirtazapine, Rosuvastatin, Vancomycin, Ulcerative Colitis (DC), Ulcerative Colitis (GEN) Additional Instructions: You are to continue all your home medications with the addition of Vancomyocin 250mg by mouth 3 times a day for the next 21 days. You will have to make an appointment with Dr. Zapata (the infectious disease doctor) in 2 weeks so he can follow up how your stomach is feeling. He will also give you a prescription to DECREASE your antibiotics. Please also take Florastor 250mg by mouth twice a day (please take 2 hours before you take any antibiotic). This will help your stomach. Please continue to work with HOME PT to help regain your strength. Please take care and be well. --- Debe continuar todos los medicamentos de yates hogar con la adicin de Vancomyocin 250mg por va oral 3 veces al da wenceslao los prximos 21 edge. Tendr que hacer lubna matthew con el Dr. Zapata (el mdico de enfermedades infecciosas) en 2 semanas para que pueda hacer un seguimiento de security guard dispatcher se siente yates estmago. Tambi n le alba lubna receta para DISMINUIR yvon antibiticos. Tambin tome 250 mg de Florastor por va oral dos veces al da (tome 2 horas antes de sandra cualquier antibitico). [facility] ayudar a tu estmago. Contine trabajando con HOME PT para ayudar a recuperar yates [place]. Por favor cudate y [place]. Referrals: Damon Hinton MD [Staff Provider] - Babak Childs MD [Staff Provider] - Andrew Boland MD [Staff Provider] - Pola Zapata MD [Staff Provider] - <Dianne Royal V - Last Filed: 11/18/17 22:14> Provider - Provider Date of Admission: 11/10/17 20:11 Attending physician: Dianne Royal, Hospital Course - Lab Results Lab Results: Micro Results 11/10/17 22:00 Blood Blood Culture - Final NO GROWTH AFTER 5 DAYS 11/10/17 22:00 Blood Gram Stain - Final TEST NOT PERFORMED 11/10/17 22:30 Blood Blood Culture - Final NO GROWTH AFTER 5 DAYS 11/10/17 22:30 Blood Gram Stain - Final TEST NOT PERFORMED 11/10/17 17:05 Stool Stool Culture - Final NO SALMONELLA, SHIGELLA OR CAMPYLOBACTER ISOLATED. Most Recent Lab Values WBC 9.0 K/uL (4.8-10.8) 11/18/17 08:07 RBC 3.41 Mil/uL (3.80-5.20) L 11/18/17 08:07 Hgb 10.1 g/dL (11.0-16.0) L 11/18/17 08:07 Hct 29.8 % (34.0-47.0) L 11/18/17 08:07 MCV 87.2 fL (81.0-99.0) 11/18/17 08:07 MCH 29.7 pg (27.0-31.0) 11/18/17 08:07 MCHC 34.0 g/dL (33.0-37.0) 11/18/17 08:07 RDW 18.5 % (11.5-14.5) H 11/18/17 08:07 Plt Count 802 K/uL (130-400) H 11/18/17 08:07 MPV 6.9 fL (7.2-11.7) L 11/18/17 08:07 Neut % (Auto) 48.9 % (50.0-75.0) L 11/18/17 08:07 Lymph % (Auto) 31.1 % (20.0-40.0) 11/18/17 08:07 [place] % (Auto) 16.8 % (0.0-10.0) H 11/18/17 08:07 Eos % (Auto) 2.2 % (0.0-4.0) 11/18/17 08:07 Baso % (Auto) 1.0 % (0.0-2.0) 11/18/17 08:07 Neut # (Auto) 4.4 K/uL (1.8-7.0) 11/18/17 08:07 Lymph # (Auto) 2.8 K/uL (1.0-4.3) 11/18/17 08:07 [place] # (Auto) 1.5 K/uL (0.0-0.8) H 11/18/17 08:07 Eos # (Auto) 0.2 K/uL (0.0-0.7) 11/18/17 08:07 Baso # (Auto) 0.1 K/uL (0.0-0.2) 11/18/17 08:07 Neutrophils % (Manual) 42 % (50-75) L 11/16/17 08:05 Band Neutrophils % 1 % (0-2) 11/15/17 11:21 Lymphocytes % (Manual) 30 % (20-40) 11/16/17 08:05 Monocytes % (Manual) 23 % (0-10) H 11/16/17 08:05 Eosinophils % (Manual) 5 % (0-4) H 11/16/17 08:05 Myelocytes % 1 % (0-0) H 11/13/17 08:16 Platelet Estimate Increased (NORMAL) H 11/16/17 08:05 Large Platelets Present 11/13/17 08:16 Polychromasia Slight 11/15/17 11:21 Hypochromasia (manual) Slight 11/16/17 08:05 Poikilocytosis (manual Slight 11/16/17 08:05 Anisocytosis (manual) Slight 11/16/17 08:05 Smear Path Review 11/13/17 08:16 PT 16.5 SECONDS (9.7-12.2) H 11/10/17 17:28 INR 1.5 11/10/17 17:28 APTT 33 SECONDS (21-34) 11/10/17 17:28 Sodium 139 mmol/L (132-148) 11/18/17 08:07 Potassium 3.9 mmol/L (3.6-5.2) 11/18/17 08:07 Chloride 105 mmol/L (98-107) 11/18/17 08:07 Carbon Dioxide 28 mmol/L (22-30) 11/18/17 08:07 Anion Gap 10 (10-20) 11/18/17 08:07 BUN 4 mg/dL (7-17) L 11/18/17 08:07 Creatinine 0.7 mg/dL (0.7-1.2) 11/18/17 08:07 Est GFR ( Amer) > 60 11/18/17 08:07 Est GFR (Non-Af Amer) > 60 11/18/17 08:07 POC Glucose (mg/dL) 110 mg/dL (65-110) 11/18/17 11:23 Random Glucose 94 mg/dL (65-105) 11/18/17 08:07 Lactic Acid 2.5 mmol/L (0.7-2.1) H 11/10/17 17:28 Calcium 8.2 mg/dl (8.6-10.4) L 11/18/17 08:07 Phosphorus 3.8 mg/dL (2.5-4.5) 11/18/17 08:07 Magnesium 1.4 mg/dL (1.6-2.3) L 11/18/17 08:07 Total Bilirubin 0.3 mg/dL (0.2-1.3) 11/18/17 08:07 AST 14 U/L (14-36) D 11/18/17 08:07 ALT 22 U/L (9-52) 11/18/17 08:07 Alkaline Phosphatase 147 U/L (38-126) H 11/18/17 08:07 Total Protein 5.7 g/dL (6.3-8.3) L 11/18/17 08:07 Albumin 2.3 g/dL (3.5-5.0) L 11/18/17 08:07 Globulin 3.4 gm/dL (2.2-3.9) 11/18/17 08:07 Albumin/Globulin Ratio 0.7 (1.0-2.1) L 11/18/17 08:07 Lipase 87 U/L (23-300) 11/10/17 17:28 Stool Occult Blood Positive (NEGATIVE) H 11/10/17 17:28 C. difficile Ag & Toxin Negative (NEGATIVE) 11/15/17 09:20 Attending/Attestation - Attestation I have personally seen and examined this patient.: Yes I have fully participated in the care of the patient.: Yes I have reviewed all pertinent clinical information, including history, physical exam and plan: Yes Notes (Text): Patient seen, examined and case discussed with day-time resident. Patient seen at bedside this morning. Patient reports she tolerated advanced diet (soft) overnight and denies loose/watery bowel movements. White count has resolved and platelets downtrending. Patient denies abdominal pain and on exam patient is nontender, nondistended, soft, prior surgical scar healing. Patient recommended by ID to complete Vancomycin 250mg PO TID for 3 weeks and to follow-up in the next two weeks to meet with ID to adjust vancomycin to 125mg PO TID dose. Patient's repeat C dif was negative and symptoms improved. Patient refuses TYRELL. Arrangements made with case management and social for home services, rolling waker, visiting nurse. Blood cultures are final negative. Patient advised if she has any fever, abdominal distension/pain to come back to the Emergency Room immediately. Patient recommended to follow- up with cardiology, GI in 2 months for repeat EGD, and infectious disease for follow-up for resolution of C. Dif colitis. Discharge order and discharge instructions discussed day-time resident and patient on discharge. This is a summary of patient's hospitalization. Please see EMR for further details.
[2017-11-18] MEDS: (Novolin R) Insulin Human Regular 100 units/ml vial SC SCH ×3 (07:30→16:00)
[2017-11-18 08:13] LABS: BASO # 0.1 K/uL (0.0-0.2); EOS # 0.2 K/uL (0.0-0.7); EOS % 2.2 % (0.0-4.0); HEMOGLOBIN 10.1 g/dL (11.0-16.0); LYMPH # 2.8 K/uL (1.0-4.3); LYMPH % 31.1 % (20.0-40.0); MEAN CELL VOLUME 87.2 fL (81.0-99.0); MEAN CORPUSCULAR HEMOGLOBIN 29.7 pg (27.0-31.0); MEAN PLATELET VOLUME 6.9 fL (7.2-11.7); MONO # 1.5 K/uL (0.0-0.8); MONO % 16.8 % (0.0-10.0); NEUT # 4.4 K/uL (1.8-7.0); NEUT % 48.9 % (50.0-75.0); NRBC % 0.1 % (0.0-2.0); RBC 3.41 Mil/uL (3.80-5.20); RED CELL DISTRIBUTION WIDTH 18.5 % (11.5-14.5)
[2017-11-18 08:38] LABS: ALB/GLOB RATIO 0.7 (1.0-2.1); ALBUMIN 2.3 g/dL (3.5-5.0); ALT/SGPT 22 U/L (9-52); AST/SGOT 14 U/L (14-36); BLOOD UREA NITROGEN 4 mg/dL (7-17); CALCIUM 8.2 mg/dl (8.6-10.4); GFR AFRICAN-AMERICAN > 60; GFR NON-AFRICAN AMERICAN > 60; MAGNESIUM 1.4 mg/dL (1.6-2.3)
[2017-11-18] MEDS: Magnesium Sulfate 1 gm in D5W 1 GM/100 ML BAG IVPB SCH ×2 (09:30→10:01)
[2017-11-18] MEDS: Lactobacillus Acidophilus 500 MU Cap PO SCH (09:50)
[2017-11-18] MEDS: Vancomycin 125 MG/5 ML SOLN (ORAL/RECTAL) PO SCH ×2 (09:57→13:11)
[2017-11-18] MEDS ORDERED: Magnesium Sulfate 454 g Box PO ONE (11:21)
[2017-11-18] MEDS ORDERED: Magnesium Oxide 400 mg Tab UD PO ONE (11:53)
[2017-11-18 20:12] VITALS: BP 112/64; PULSE 81; RESP 18; TEMP 98.1; O2SAT 98
== END 2017-11-18 17:10 | DRG 372 ==
LOC: C.ER 16:28 → C.9E 20:11 → C.5S 20:11
PROVIDERS: ADMIT Hospitalist; ATTEND Hospitalist
DX: A04.72 Enterocolitis due to Clostridium difficile, not specified as recurrent (principal); J90 Pleural effusion, not elsewhere classified; I48.91 Unspecified atrial fibrillation; J44.9 Chronic obstructive pulmonary disease, unspecified; E11.9 Type 2 diabetes mellitus without complications; I35.0 Nonrheumatic aortic (valve) stenosis; E03.9 Hypothyroidism, unspecified; E78.5 Hyperlipidemia, unspecified; I10 Essential (primary) hypertension; I25.10 Atherosclerotic heart disease of native coronary artery without angina pectoris; K31.89 Other diseases of stomach and duodenum; Z85.3 Personal history of malignant neoplasm of breast; Z86.711 Personal history of pulmonary embolism; Z87.891 Personal history of nicotine dependence; Z95.5 Presence of coronary angioplasty implant and graft; Z95.1 Presence of aortocoronary bypass graft

== ENCOUNTER 2017-12-14 23:36 | Inpatient (IN) | payer MEDICARE, OTHER ==
[2017-12-14 23:37] VITALS: PULSE 126; BMI 26.1
[2017-12-15] MEDS ORDERED: Morphine 4 MG/ML VIAL IVP STA (00:04)
[2017-12-15] MEDS ORDERED: Sodium Chloride 0.9% 1,000 ML IV ONE (00:04)
--- NOTE | 2017-12-15 00:04 | C.PDOC ---
History Of Present Illness patient presents with increased abdominal pain, diarrhea. Pt has had a recent ischemic bowel with surgery end september and C diff in October. Over the last few days patient has had increased abdominal pain and diarrhea. No fever, chills nausea. Time Seen by Provider: 12/15/17 00:04 Chief Complaint (Nursing): Abdominal Pain History Per: Patient History/Exam Limitations: no limitations Onset/Duration Of Symptoms: Days Current Symptoms Are (Timing): Worse Context: Other Severity: Severe Pain Scale Rating Of: 6 Location Of Pain/Discomfort: Diffuse Radiation Of Pain To:: None Quality Of Discomfort: Sharp, Cramping Associated Symptoms: Diarrhea. denies: Fever, Chills, Nausea Alleviating Factors: None Last Bowel Movement: Today Recent travel outside of the [place]: No Additional History Per: Patient Abnormal Vaginal Bleeding: No Past Medical History Reviewed: Historical Data, Nursing Documentation, Vital Signs Vital Signs: Last Vital Signs Temp 98.1 F 12/14/17 23:43 Pulse 94 H 12/14/17 23:43 Resp 16 12/14/17 23:43 BP 109/67 12/14/17 23:43 Pulse Ox 97 12/15/17 00:38 - Medical History PMH: Anxiety, Arthritis (KNEE PAIN), Cardia Arrhythmia, COPD, Depression, Diabetes, HTN, Hypercholesterolemia, Hypothyroidism Denies: Chronic Kidney Disease Surgical History: CABG (jan 17 2013 TRIPLE), Coronary Stent, Pacemaker, Tonsillectomy - [facility] BREAST DX PROCEDURE NEC (04/18/14) DX ULTRASOUND-THORAX NEC (04/18/14) EXCISION OF DUODENUM, ENDO, DIAGN (10/06/17) FLUOROSCOPY OF LEFT HEART USING LOW OSMOLAR CONTRAST (10/06/17) FLUOROSCOPY OF MULT COR ART USING L OSM CONTRAST (10/06/17) FLUOROSCOPY OF SING COR A GRAFT USING L OSM CONTRAST (10/06/17) INITIAL INSERT TRANS LEADS INTO ATRIUM & VENTRICLE (12/20/13) INITIAL INSERTION OF DUAL-CHAMBER DEVICE (12/20/13) INSERTION OF ENDOTRACHEAL AIRWAY INTO TRACHEA, VIA OPENING (10/06/17) INSERTION OF INFUSION DEV INTO SUP VENA CAVA, PERC APPROACH (10/06/17) LOCAL EXCIS BREAST LES (04/18/14) LYMPHATIC STRUCT BIOPSY (05/14/14) LYMPHATIC SYSTEM SCAN (05/14/14) MEASURE OF CARDIAC SAMPL & PRESSURE, L HEART, PERC APPROACH (10/06/17) PERCUTAN NEEDLE BIOPSY OF BREAST (02/05/14) RESECTION OF SMALL INTESTINE, OPEN APPROACH (10/06/17) RESPIRATORY VENTILATION, GREATER THAN 96 CONSECUTIVE HOURS (10/06/17) TRANSFUSE NONAUT RED BLOOD CELLS IN PERIPH VEIN, PERC (10/06/17) X-RAY NEC AND NOS (02/05/14) Family History: States: No Known Family Hx - Social History Hx Tobacco Use: Yes (quit 6 years ago) Hx Alcohol Use: No Hx Substance Use: No - Immunization History Hx Tetanus Toxoid Vaccination: No Hx Influenza Vaccination: No Hx Pneumococcal Vaccination: No Review Of Systems Constitutional: Positive for: Malaise. Negative for: Fever, Chills Eyes: Negative for: Vision Change ENT: Negative for: Throat Pain Cardiovascular: Negative for: Chest Pain Respiratory: Negative for: Shortness of Breath Gastrointestinal: Positive for: Abdominal Pain, Diarrhea. Negative for: Nausea , Vomiting Genitourinary: Negative for: Dysuria Musculoskeletal: Negative for: Back Pain Skin: Negative for: Rash Neurological: Negative for: Weakness Psych: Negative for: Anxiety Physical Exam - Physical Exam Appears: Non-toxic Skin: Warm, Dry Head: Normacephalic Eye(s): bilateral: Normal Inspection Oral Mucosa: Dry Lips: Normal Appearing Neck: Supple Chest: Symmetrical, Other (pacer on right) Cardiovascular: Rhythm Regular Respiratory: No Rales, No Rhonchi, No Wheezing Gastrointestinal/Abdominal: Bowel Sounds (devreased), Soft, Tenderness (diffuse) , Distention, No Guarding, No Rebound, Other (left para umbilical surgical scar) Back: No CVA Tenderness Extremity: Normal ROM Extremity: Bilateral: Atraumatic Pulses: Left Dorsalis Pedis: Normal, Right Dorsalis Pedis: Normal Neurological/Psych: Oriented x3, Normal Speech Gait: Unable To Assess ED Course And Treatment - Laboratory Results Result Diagrams: 12/15/17 00:16 12/15/17 00:16 ECG: Interpreted By Me, Viewed By Me ECG Rhythm: Sinus Rhythm (79), Nonspecific Changes (occ pvc) O2 Sat by Pulse Oximetry: 97 Pulse Ox Interpretation: Normal - Radiology CXR: Interpreted by Me, Viewed By Me Disposition Discussed With DrJuvencio: Trent Balderas Comment: accepted the pt on his service and took over the care at 3:41 AM Doctor Will See Patient In The: ED Counseled Patient/Family Regarding: Studies Performed, Diagnosis - Disposition Disposition: HOSPITALIZED Disposition Time: 00:04 Condition: FAIR Forms: [facility] (Armenian) - POA Present On Arrival: Poor Glycemic Control - Clinical Impression Clinical Impression: Abdominal pain, C. difficile colitis, Diarrhea Decision To Admit - Pt Status Changed To: Hospital Disposition Of: Inpatient - Admit Certification Admit to Inpatient:: After my assessment, the patient will require hospitalization for at least two midnights. This is because of the severity of symptoms shown, intensity of services needed, and/or the medical risk in this patient being treated as an outpatient. - InPatient: Physician Admission Certification:: After my assessment, the patient will require hospitalization for at least two midnights. This is because of the severity of symptoms shown, intensity of services needed, and/or the medical risk in this patient being treated as an outpatient. - . Bed Request Type: Regular Admitting Physician: Trent Balderas Patient Diagnosis: Abdominal pain, C. difficile colitis, Diarrhea
[2017-12-15] MEDS ORDERED: Sodium Chloride 0.9% 1,000 ML ONE (00:08)
[2017-12-15] MEDS ORDERED: Morphine 4 MG/ML VIAL ONE (00:08)
[2017-12-15 00:22] LABS: BASO % 0.3 % (0.0-2.0); EOS # 0.2 K/uL (0.0-0.7); EOS % 1.2 % (0.0-4.0); HEMOGLOBIN 11.7 g/dL (11.0-16.0); LYMPH # 5.6 K/uL (1.0-4.3); LYMPH % 38.9 % (20.0-40.0); MEAN CORPUSCULAR HEMOGLOBIN 28.5 pg (27.0-31.0); MEAN PLATELET VOLUME 8.6 fL (7.2-11.7); MONO # 2.5 K/uL (0.0-0.8); MONO % 17.1 % (0.0-10.0); NEUT # 6.2 K/uL (1.8-7.0); NEUT % 42.5 % (50.0-75.0); NRBC % 0.1 % (0.0-2.0); RBC 4.11 Mil/uL (3.80-5.20); WHITE BLOOD COUNT 14.5 K/uL (4.8-10.8)
[2017-12-15 00:23] LABS: INR 1.7; PROTHROMBIN TIME 19.1 SECONDS (9.7-12.2)
[2017-12-15] MEDS ORDERED: Piperacillin/Tazobact 3.375 gm 100 ML IVPB STA (00:26)
[2017-12-15] MEDS ORDERED: Vancomycin 125 MG/5 ML SOLN (ORAL/RECTAL) PO STA (00:26)
[2017-12-15 00:30] LABS: ALB/GLOB RATIO 0.7 (1.0-2.1); ALBUMIN 2.8 g/dL (3.5-5.0); ALT/SGPT 16 U/L (9-52); AST/SGOT 18 U/L (14-36); BLOOD UREA NITROGEN 14 mg/dL (7-17); CALCIUM 8.8 mg/dl (8.6-10.4); GFR AFRICAN-AMERICAN > 60; GFR NON-AFRICAN AMERICAN > 60; LIPASE 22 U/L (23-300)
[2017-12-15] MEDS ORDERED: Piperacill/Tazo 3.375gm in Dex 3.375 GM/50 ML BAG IVPB STA (00:31)
[2017-12-15 00:47] LABS: VENOUS BLOOD GAS BASE EXCESS 2.2 mmol/L (0.0-2.0); VENOUS BLOOD GAS PCO2 43 mmHg (40-60); VENOUS BLOOD GAS PO2 19 mm/Hg (30-55); VENOUS BLOOD PH 7.41 (7.32-7.43)
[2017-12-15] MEDS ORDERED: Iodixanol 320 MG/ML 100 ML BOTTLE IV ONE (01:03)
--- NOTE | 2017-12-15 02:34 | CT ---
EXAM: CT Abdomen and Pelvis With Intravenous Contrast CLINICAL HISTORY: 77 years old, female; Pain; Abdominal pain; Prior surgery; Surgery type: Open heart, cabg, removal of intestine; Patient HX: Prior 11-10-17 images sent; Additional info: Abd pain, HX of ischemic bowel, resection TECHNIQUE: Axial computed tomography images of the abdomen and pelvis with intravenous contrast. All CT scans at this facility use one or more dose reduction techniques, viz.: automated exposure control; ma/kV adjustment per patient size (including targeted exams where dose is matched to indication; i.e. head); or iterative reconstruction technique. 680 images are submitted. Coronal and sagittal reformatted images were created and reviewed. CONTRAST: 100 mL of [id number] administered intravenously. COMPARISON: CT - ABD PELVIS IV CONTRAST ONLY 2017-11-10 18:41 FINDINGS: Lower thorax: There is left lower lobe pleural-based pulmonary nodule measuring 1.2 cm likely representing residue of nodular consolidation. If clinically indicated followup examination is recommended after active infiltrates have resolved correlation with patient's pulmonary clinical evaluation is recommended. There are cardiac leads from a cardiac rhythm maintenance device. Right middle lobe pneumatocele and calcified granuloma. Lingular and bilateral basilar infiltrates with interval improvement when compared to prior examination. ABDOMEN: Liver: There is 17 x13 x 18 cm cyst in the right lobe of the liver and hepatic cysts seen on previous examination. Periportal edema. Fatty liver. Gallbladder and bile ducts: Stable gallbladder distention. Pancreas: Unremarkable. No mass. No ductal dilation. Spleen: Unremarkable. No splenomegaly. Adrenals: Unremarkable. No mass. Kidneys and ureters: Unremarkable. No solid mass. No hydronephrosis. Stomach and bowel: There is moderate amount of stool in the colon with colonic wall thickening. Correlation with clinical data is recommended if nonspecific versus stool related colitis as clinically suspected. Nonspecific gastric thickening likely due to under distention. Correlation with clinical data is recommended if gastritis is suspected. Appendix: Appendix is seen and is top normal in thickness measuring 6 to 7 mm with no periappendiceal stranding. PELVIS: Bladder: There is nonspecific bladder wall thickening. This may be related to incomplete distention. Reproductive: Uterus is seen. ABDOMEN and PELVIS: Intraperitoneal space: Unremarkable. No free air. No significant fluid collection. Bones/joints: There are sternal wires consistent with previous sternotomy incision. No acute fracture. No dislocation. Soft tissues: Unremarkable. Vasculature: The aorta demonstrates calcified plaque and is mildly ectatic but 2.5 cm in caliber. There are displaced intimal calcifications likely representing calcified atherosclerotic plaques similar to what was seen on prior examination. No abdominal aortic aneurysm. Lymph nodes: Unremarkable. No enlarged lymph nodes. IMPRESSION: 1. There is moderate amount of stool in the colon with colonic wall thickening. Correlation with clinical data is recommended if nonspecific versus stool related colitis as clinically suspected. 2. There is left lower lobe pleural-based pulmonary nodule measuring 1.2 cm likely representing residue of nodular consolidation. If clinically indicated followup examination is recommended after active infiltrates have resolved correlation with patient's pulmonary clinical evaluation is recommended. Correlation with internal medicine evaluation and further workup or followup as recommended by patient's clinical data.
[2017-12-15] MEDS ORDERED: Glucagon Recombinant 1 mg Inj IM PRN (04:28)
[2017-12-15] MEDS ORDERED: Dextrose 50% SYRINGE Inj (50 ml) IV PRN (04:28)
--- NOTE | 2017-12-15 04:35 | CP.PCM.HP ---
<AamirLinda FloresJuvencio - Last Filed: 12/15/17 04:49> History of Present Illness - History of Present Illness History of Present Illness: CC: "diarrhea" HPI: 77 year old female with past medical history of C.Diff (11/06); ischemic bowel resection, B/L PE (10/2017), HTN, Afib; PE; HLD, DM, CAD, CABG, Hx of Breast Cancer (s/p lumpectomy) and Hypothyroidism who presents to the ER for diarrhea. Patient states she has been having diarrhea for about 5 days with no improvement. She states the stool is watery and she has about 8 episodes of diarrhea per day. She states she saw Dr. Jimenez a week ago who gave her Loperamide but as soon as she stopped she continued to have diarrhea. She states she has been having chills and subjective fever. She states she has been having diffuse lower abdominal pain about an 8/10. She states she has not had much of an appetite and has lost about 30lbs since her surgery in October. She denies chest pain, shortness of breath, nausea or vomiting. PMD: Tony Past Medical History: C.Diff (11/06); ischemic bowel resection, B/L PE (10/2017), HTN, Afib; PE; HLD, DM, CAD, CABG, Hx of Breast Cancer (s/p lumpectomy) and Hypothyroidism Past Surgical History: ischemic bowel resection (10/08/17), Pacemaker (placed on the right due to Hx Breast Cancer) Family History: Strong Cardiac history, most family member of cardiac complications Medications: Apixaban [Eliquis] 5 mg PO BID; diltiaZEM [Cardizem] 60 mg PO Q6H; Levothyroxine 50 mcg PO DAILY; Losartan 100 mg PO DAILY; Metformin 500 mg PO BID ; Mirtazapine 15 mg PO HS; Rosuvastatin Calcium [Crestor] 5 mg NG HS Allergies: NKDA Social History: Denies alcohol, smoking and illicit drug use Present on Admission - Present on Admission Any Indicators Present on Admission: Yes History of DVT/PE: Yes Review of Systems - Constitutional Constitutional: Chills, Fever - Cardiovascular Cardiovascular: absent: Chest Pain, Dyspnea - Respiratory Respiratory: absent: Dyspnea - Gastrointestinal Gastrointestinal: Abdominal Pain, Diarrhea. absent: Constipation, Nausea, Vomiting - Genitourinary Genitourinary: absent: Dysuria - Neurological Neurological: Weakness. absent: Dizziness, Headaches Past Patient History - Past Medical History & Family History Past Medical History?: Yes - Past Social History Smoking Status: Former Smoker - CARDIAC Hx Cardia Arrhythmia: Yes Hx Hypercholesterolemia: Yes Hx Hypertension: Yes Hx Pacemaker: Yes - PULMONARY Hx Chronic Obstructive Pulmonary Disease (COPD): Yes - NEUROLOGICAL Hx Neurological Disorder: Yes - HEENT Hx HEENT Problems: Yes Hx Cataracts: Yes (removed bilateral 2011) - RENAL Hx Chronic Kidney Disease: No - ENDOCRINE/METABOLIC Hx Hypothyroidism: Yes - HEMATOLOGICAL/ONCOLOGICAL Hx Blood Disorders: Yes Hx Cancer: Yes (LEFT BREAST-RADIATION TX. DONE) - INTEGUMENTARY Hx Dermatological Problems: Yes Other/Comment: CANCER LEFT BREAST-LUMPECTOMY DONE - MUSCULOSKELETAL/RHEUMATOLOGICAL Hx Arthritis: Yes (KNEE PAIN) - GASTROINTESTINAL Hx Gastrointestinal Disorders: No - GENITOURINARY/GYNECOLOGICAL Hx Genitourinary Disorders: No - PSYCHIATRIC Hx Anxiety: Yes Hx Depression: Yes Hx Substance Use: No - SURGICAL HISTORY Hx Coronary Artery Bypass Graft: Yes (jan 17 2013 TRIPLE) Hx Coronary Stent: Yes Hx Tonsillectomy: Yes - ANESTHESIA Hx Anesthesia: Yes Hx Anesthesia Reactions: No Hx Malignant Hyperthermia: No Meds Allergies/Adverse Reactions: Allergies Allergy/AdvReac Type Severity Reaction Status Date / Time No Known Allergies Allergy Verified 12/14/17 23:53 Physical Exam - Constitutional Appears: No Acute Distress, Cachectic - Head Exam Head Exam: ATRAUMATIC, NORMAL INSPECTION - Eye Exam Eye Exam: EOMI, Normal appearance - ENT Exam ENT Exam: Mucous Membranes Dry - Respiratory Exam Respiratory Exam: Clear to Auscultation Bilateral, NORMAL BREATHING PATTERN. absent: Rales, Rhonchi, Wheezes, Stridor - Cardiovascular Exam Cardiovascular Exam: REGULAR RHYTHM, RRR, +S1, +S2 - GI/Abdominal Exam GI & Abdominal Exam: Normal Bowel Sounds, Soft. absent: Firm, Guarding, Tenderness - Extremities Exam Extremities exam: Positive for: normal inspection - Neurological Exam Neurological exam: Alert, Oriented x3 - Psychiatric Exam Psychiatric exam: Normal Affect, Normal Mood - Skin Skin Exam: Dry, Intact, Normal Color Results - Vital Signs Recent Vital Signs: Last Vital Signs Temp 98.1 F 12/14/17 23:43 Pulse 94 H 03/28/18 23:43 Resp 16 12/14/17 23:43 BP 109/67 12/14/17 23:43 Pulse Ox 97 12/15/17 03:42 - Labs Result Diagrams: 12/15/17 00:16 12/15/17 00:16 Labs: Laboratory Results - last 24 hr 12/15/17 12/15/17 12/15/17 00:16 00:16 00:16 WBC 14.5 H D RBC 4.11 Hgb 11.7 Hct 36.6 MCV 89.0 MCH 28.5 MCHC 32.0 L RDW 18.0 H Plt Count 410 H D MPV 8.6 Neut % (Auto) 42.5 L Lymph % (Auto) 38.9 Dade % (Auto) 17.1 H Eos % (Auto) 1.2 Baso % (Auto) 0.3 Neut # (Auto) 6.2 Lymph # (Auto) 5.6 H Dade # (Auto) 2.5 H Eos # (Auto) 0.2 Baso # (Auto) 0.0 PT 19.1 H INR 1.7 APTT 31 pO2 VBG pH VBG pCO2 VBG HCO3 VBG Total CO2 VBG O2 Sat (Calc) VBG Base Excess VBG Potassium Glucose Lactate Sodium 135 Potassium 4.1 Chloride 100 Carbon Dioxide 23 Anion Gap 16 BUN 14 Creatinine 0.8 Est GFR ( Amer) > 60 Est GFR (Non-Af Amer) > 60 Random Glucose 109 H Calcium 8.8 Total Bilirubin 0.4 AST 18 ALT 16 Alkaline Phosphatase 149 H Total Protein 6.6 Albumin 2.8 L D Globulin 3.8 Albumin/Globulin Ratio 0.7 L Lipase 22 L Venous Blood Potassium 12/15/17 00:44 WBC RBC Hgb Hct MCV MCH MCHC RDW Plt Count MPV Neut % (Auto) Lymph % (Auto) Dade % (Auto) Eos % (Auto) Baso % (Auto) Neut # (Auto) Lymph # (Auto) Dade # (Auto) Eos # (Auto) Baso # (Auto) PT INR APTT pO2 19 L VBG pH 7.41 VBG pCO2 43 VBG HCO3 24.8 VBG Total CO2 28.6 H VBG O2 Sat (Calc) 25.5 L VBG Base Excess 2.2 H VBG Potassium 3.8 Glucose 110 H Lactate 1.9 Sodium 137.0 Potassium Chloride 102.0 Carbon Dioxide Anion Gap BUN Creatinine Est GFR ( Amer) Est GFR (Non-Af Amer) Random Glucose Calcium Total Bilirubin AST ALT Alkaline Phosphatase Total Protein Albumin Globulin Albumin/Globulin Ratio Lipase Venous Blood Potassium 3.8 Assessment & Plan - Assessment and Plan (Free Text) Assessment: 1.) Diarrhea WBC 14.5 f/u c.diff, ova and parasite; leukocytosis f/u stool culture Imaging: CT Abdomen/Pelvis: There is moderate amount of stool in the colon with colonic wall thickening. Correlation with clinical data is recommended if nonspecific versus stool related colitis as clinically suspected. There is left lower lobe pleural-based pulmonary nodule measuring 1.2 cm likely representing residue of nodular consolidation. Meds: * Vancomycin 125 mg PO Q6H for 2.) Thrombocytosis possibly secondary to infection Platelets 410 - Monitor 3.) History of Bowel Ischemia (10/08/17: Exploratory laparotomy, small bowel resection and primary anastomosis) 4.) History of Chest Pain, LBBB, CAD, CABG, Pacemaker, Aortic Stenosis, New Onset A-fib * Eiliquis 5.0 mg PO 2x/day * Cardizem 60 mg PO Q6H * Cozaar 100 mg PO 1x/day * Crestor 5 mg PO 1x/day 5.) History of Bilateral PE * Eliquis 5 mg PO 2x/day 6.) History of Melena/BRBPR EGD 10/18/17: esophageal ulcer 7 mm nonbleeding, duodenum with superficial ulceration, adherent blood clot in jejunum 7.) History of Breast CA/Lumpectomy stable No acute intervention 8.) History of HTN * Cozaar 100 mg PO 1x/day * Cardizem 60 mg PO Q6H Add Metoprolol Succinate 25 mg PO 1x/day IF there are any issues of uncontrolled blood pressure/heart rate as the patient was on this in the past 9.) History of HLD * Crestor 5 mg PO 1x/day 10.) History of DM Type II Accucheck Hypoglycemia Protocol ISS 11.) History of Hypothyroidism * Levothyroxine 50 mcg PO 1x/day 12.) Prophylaxis - Mirtazapine 15 mg PO HS for sleep - Protonix 40 mg PO 1x/day - Ensure 3x/day - PT eval and treat Case discussed with Dr. Sherrie Rutledge PGY-1 <Trent Balderas - Last Filed: 12/15/17 06:34> Results - Vital Signs Recent Vital Signs: Last Vital Signs Temp 98.1 F 12/15/17 05:24 Pulse 72 12/15/17 05:24 Resp 20 12/15/17 05:24 BP 105/63 12/15/17 05:24 Pulse Ox 95 12/15/17 05:24 - Labs Result Diagrams: 12/15/17 00:16 12/15/17 00:16 Labs: Laboratory Results - last 24 hr 12/15/17 12/15/17 12/15/17 00:16 00:16 00:16 WBC 14.5 H D RBC 4.11 Hgb 11.7 Hct 36.6 MCV 89.0 MCH 28.5 MCHC 32.0 L RDW 18.0 H Plt Count 410 H D MPV 8.6 Neut % (Auto) 42.5 L Lymph % (Auto) 38.9 Dade % (Auto) 17.1 H Eos % (Auto) 1.2 Baso % (Auto) 0.3 Neut # (Auto) 6.2 Lymph # (Auto) 5.6 H Dade # (Auto) 2.5 H Eos # (Auto) 0.2 Baso # (Auto) 0.0 PT 19.1 H INR 1.7 APTT 31 pO2 VBG pH VBG pCO2 VBG HCO3 VBG Total CO2 VBG O2 Sat (Calc) VBG Base Excess VBG Potassium Glucose Lactate Sodium 135 Potassium 4.1 Chloride 100 Carbon Dioxide 23 Anion Gap 16 BUN 14 Creatinine 0.8 Est GFR ( Amer) > 60 Est GFR (Non-Af Amer) > 60 POC Glucose (mg/dL) Random Glucose 109 H Calcium 8.8 Total Bilirubin 0.4 AST 18 ALT 16 Alkaline Phosphatase 149 H Total Protein 6.6 Albumin 2.8 L D Globulin 3.8 Albumin/Globulin Ratio 0.7 L Lipase 22 L Venous Blood Potassium 12/15/17 12/15/17 00:44 04:48 WBC RBC Hgb Hct MCV MCH MCHC RDW Plt Count MPV Neut % (Auto) Lymph % (Auto) Dade % (Auto) Eos % (Auto) Baso % (Auto) Neut # (Auto) Lymph # (Auto) Dade # (Auto) Eos # (Auto) Baso # (Auto) PT INR APTT pO2 19 L VBG pH 7.41 VBG pCO2 43 VBG HCO3 24.8 VBG Total CO2 28.6 H VBG O2 Sat (Calc) 25.5 L VBG Base Excess 2.2 H VBG Potassium 3.8 Glucose 110 H Lactate 1.9 Sodium 137.0 Potassium Chloride 102.0 Carbon Dioxide Anion Gap BUN Creatinine Est GFR ( Amer) Est GFR (Non-Af Amer) POC Glucose (mg/dL) 107 Random Glucose Calcium Total Bilirubin AST ALT Alkaline Phosphatase Total Protein Albumin Globulin Albumin/Globulin Ratio Lipase Venous Blood Potassium 3.8 Assessment & Plan - Date & Time Date: 12/15/17 (I have seen and examined the patient. I agree with the findings and plan of care as documented by Dr. Rutledge. Patient with colitis. Diarrhea and abdominal pain. Vanco PO for now. Stool studies. Continue Eliquis for history of PEs. Monitor for acute changes.) Time: 06:33 Attending/Attestation - Attestation I have personally seen and examined this patient.: Yes I have fully participated in the care of the patient.: Yes I have reviewed all pertinent clinical information: Yes
[2017-12-15] MEDS: Levothyroxine 50 MCG TAB PO SCH (06:20)
[2017-12-15] MEDS: (Novolin R) Insulin Human Regular 100 units/ml vial SC SCH ×4 (07:33→21:43)
[2017-12-15] MEDS: Vancomycin 125 MG/5 ML SOLN (ORAL/RECTAL) PO SCH ×3 (08:03→19:24)
[2017-12-15] MEDS: Saccharomyces Boulardi 250 mg Cap PO SCH (09:42)
[2017-12-15] MEDS: Pantoprazole 40 mg EC Tab PO SCH (09:42)
--- NOTE | 2017-12-15 12:52 | CP.PCM.PN ---
<Gamal Alicea R - Last Filed: 12/15/17 12:47> Subjective - Date & Time of Evaluation Date of Evaluation: 12/15/17 Time of Evaluation: 12:47 - Subjective Subjective: PGY-[address] Carbajal. No acute events noted overnight. Patient stated she is still having watery diarrhea. Per Dr Zapata, she did not follow-up with him as she was instructed to do so on 11/18/17 when she was discharged. She denied abdominal pain, chest pain, dizziness, or other complaints. Objective - Vital Signs/Intake and Output Vital Signs (last 24 hours): Temp Pulse Resp BP Pulse Ox 97.9 F 76 18 133/59 L 96 12/15/17 07:35 12/15/17 07:35 12/15/17 07:35 12/15/17 07:35 12/15/17 07:35 Intake and Output: 12/15/17 12/15/17 06:59 18:59 Intake Total 400 Output Total 400 Balance 0 - Medications Medications: Current Medications Apixaban (Eliquis) 5 mg PO BID [facility] Last Admin: 12/15/17 09:42 Dose: 5 mg Dextrose (Dextrose 50% Inj) 0 ml IV STAT PRN; Protocol PRN Reason: Hypoglycemia Protocol Dextrose (Glutose 15) 0 gm PO ONCE PRN; Protocol PRN Reason: Hypoglycemia Protocol Diltiazem HCl (Cardizem) 60 mg PO Q6H [facility] Last Admin: 12/15/17 09:42 Dose: 60 mg Glucagon (Glucagen Diagnostic Kit) 0 mg IM STAT PRN; Protocol PRN Reason: Hypoglycemia Protocol Dextrose (Dextrose 5% In Water 1000 Ml) 1,000 mls @ 0 mls/hr IV .Q0M PRN; Protocol; Per Protocol PRN Reason: Hypoglycemia Protocol Insulin Human Regular (Novolin R) 0 unit SC ACHS [facility] PRN Reason: Protocol Last Admin: 12/15/17 12:36 Dose: 2 unit Levothyroxine Sodium (Synthroid) 50 mcg PO DAILY@0630 [facility] Last Admin: 12/15/17 06:20 Dose: 50 mcg Losartan Potassium (Cozaar) 100 mg PO DAILY [facility] Last Admin: 12/15/17 09:42 Dose: 100 mg Mirtazapine (Remeron) 15 mg PO HS [facility] Oxycodone/Acetaminophen (Percocet 5/325 Mg Tab) 1 tab PO Q4H PRN PRN Reason: Pain, moderate (4-7) Stop: 12/18/17 04:26 Pantoprazole Sodium (Protonix Ec Tab) 40 mg PO DAILY [facility] Last Admin: 12/15/17 09:42 Dose: 40 mg Saccharomyces Boulardii (Florastor) 250 mg PO DAILY [facility] Last Admin: 12/15/17 09:42 Dose: 250 mg Vancomycin HCl (Vancocin (Oral Or Rectal Use)) 125 mg PO Q6H [facility] PRN Reason: Protocol Last Admin: 12/15/17 08:03 Dose: 125 mg - Labs Labs: 12/15/17 00:16 12/15/17 00:16 PT 19.1 SECONDS (9.7-12.2) H 12/15/17 00:16 INR 1.7 12/15/17 00:16 APTT 31 SECONDS (21-34) 12/15/17 00:16 - Additional Findings Additional findings: - Constitutional Appears: No Acute Distress, Cachectic - Head Exam Head Exam: ATRAUMATIC, NORMAL INSPECTION - Eye Exam Eye Exam: EOMI, Normal appearance - ENT Exam ENT Exam: Mucous Membranes Dry - Respiratory Exam Respiratory Exam: Clear to Auscultation Bilateral, NORMAL BREATHING PATTERN. absent: Rales, Rhonchi, Wheezes, Stridor - Cardiovascular Exam Cardiovascular Exam: REGULAR RHYTHM, RRR, +S1, +S2 - GI/Abdominal Exam GI & Abdominal Exam: Normal Bowel Sounds, Soft. absent: Firm, Guarding, Tenderness - Extremities Exam Extremities exam: Positive for: normal inspection - Neurological Exam Neurological exam: Alert, Oriented x3 - Psychiatric Exam Psychiatric exam: Normal Affect, Normal Mood - Skin Skin Exam: Dry, Intact, Normal Color Assessment and Plan - Assessment and Plan (Free Text) Assessment: 1.) Diarrhea Infectious Disease consult, Dr Zapata WBC 14.5 f/u c.diff, ova and parasite; leukocytosis f/u stool culture Imaging: CT Abdomen/Pelvis: There is moderate amount of stool in the colon with colonic wall thickening. Correlation with clinical data is recommended if nonspecific versus stool related colitis as clinically suspected. There is left lower lobe pleural-based pulmonary nodule measuring 1.2 cm likely representing residue of nodular consolidation. Meds: * Vancomycin 125 mg PO Q6H f * Florastor 250mg PO QD * Per Dr Zapata, patient should be on Dificid however cost is too high and pharmacy did not approve (or we do not carry here? I'm unsure), it might be best for patient to go to another hospital where she can get dificid 2.) Thrombocytosis possibly secondary to infection Platelets 410 - Monitor 3.) History of Bowel Ischemia (10/08/17: Exploratory laparotomy, small bowel resection and primary anastomosis) 4.) History of Chest Pain, LBBB, CAD, CABG, Pacemaker, Aortic Stenosis, New Onset A-fib * Eiliquis 5.0 mg PO 2x/day * Cardizem 60 mg PO Q6H * Cozaar 100 mg PO 1x/day * Crestor 5 mg PO 1x/day 5.) History of Bilateral PE * Eliquis 5 mg PO 2x/day 6.) History of Melena/BRBPR EGD 10/18/17: esophageal ulcer 7 mm nonbleeding, duodenum with superficial ulceration, adherent blood clot in jejunum 7.) History of Breast CA/Lumpectomy stable No acute intervention 8.) History of HTN * Cozaar 100 mg PO 1x/day * Cardizem 60 mg PO Q6H Add Metoprolol Succinate 25 mg PO 1x/day IF there are any issues of uncontrolled blood pressure/heart rate as the patient was on this in the past 9.) History of HLD * Crestor 5 mg PO 1x/day 10.) History of DM Type II Accucheck Hypoglycemia Protocol ISS 11.) History of Hypothyroidism * Levothyroxine 50 mcg PO 1x/day 12.) Prophylaxis - Mirtazapine 15 mg PO HS for sleep - Protonix 40 mg PO 1x/day - Ensure 3x/day - PT eval and treat <Keli Carbajal - Last Filed: 12/15/17 22:36> Objective - Vital Signs/Intake and Output Vital Signs (last 24 hours): Temp Pulse Resp BP Pulse Ox 97.9 F 76 18 133/59 L 96 12/15/17 07:35 12/15/17 07:35 12/15/17 07:35 12/15/17 07:35 12/15/17 07:35 Intake and Output: 12/15/17 12/15/17 06:59 18:59 Intake Total 400 Output Total 400 Balance 0 - Medications Medications: Current Medications Apixaban (Eliquis) 5 mg PO BID [facility] Last Admin: 12/15/17 09:42 Dose: 5 mg Dextrose (Dextrose 50% Inj) 0 ml IV STAT PRN; Protocol PRN Reason: Hypoglycemia Protocol Dextrose (Glutose 15) 0 gm PO ONCE PRN; Protocol PRN Reason: Hypoglycemia Protocol Diltiazem HCl (Cardizem) 60 mg PO Q6H [facility] Last Admin: 12/15/17 09:42 Dose: 60 mg Glucagon (Glucagen Diagnostic Kit) 0 mg IM STAT PRN; Protocol PRN Reason: Hypoglycemia Protocol Dextrose (Dextrose 5% In Water 1000 Ml) 1,000 mls @ 0 mls/hr IV .Q0M PRN; Protocol; Per Protocol PRN Reason: Hypoglycemia Protocol Insulin Human Regular (Novolin R) 0 unit SC ACHS [facility] PRN Reason: Protocol Last Admin: 12/15/17 12:36 Dose: 2 unit Levothyroxine Sodium (Synthroid) 50 mcg PO DAILY@0630 [facility] Last Admin: 12/15/17 06:20 Dose: 50 mcg Losartan Potassium (Cozaar) 100 mg PO DAILY [facility] Last Admin: 12/15/17 09:42 Dose: 100 mg Mirtazapine (Remeron) 15 mg PO HS [facility] Oxycodone/Acetaminophen (Percocet 5/325 Mg Tab) 1 tab PO Q4H PRN PRN Reason: Pain, moderate (4-7) Stop: 12/18/17 04:26 Pantoprazole Sodium (Protonix Ec Tab) 40 mg PO DAILY [facility] Last Admin: 12/15/17 09:42 Dose: 40 mg Saccharomyces Boulardii (Florastor) 250 mg PO DAILY [facility] Last Admin: 12/15/17 09:42 Dose: 250 mg Vancomycin HCl (Vancocin (Oral Or Rectal Use)) 125 mg PO Q6H [facility] PRN Reason: Protocol Last Admin: 12/15/17 13:23 Dose: 125 mg - Labs Labs: 12/15/17 00:16 12/15/17 00:16 PT 19.1 SECONDS (9.7-12.2) H 12/15/17 00:16 INR 1.7 12/15/17 00:16 APTT 31 SECONDS (21-34) 12/15/17 00:16 Attending/Attestation - Attestation I have personally seen and examined this patient.: Yes I have fully participated in the care of the patient.: Yes I have reviewed all pertinent clinical information, including history, physical exam and plan: Yes Notes (Text): Patient is seen and examined this afternoon.Chart reviewed/previous admission. patient was discharged on 6 weeks of oral vancomycin for cd colitis .She wasn't taking because not covered by her insurance .She was treated with 10days of flagyl as an out pt starting from11/21/2017 [facility] for prior authorization before d/c continue oral vanco d/w resident spoke to DR Zapata I agree with the resident's documentation
[2017-12-15 14:57] LABS: SQUAMOUS EPITHIAL 2 /hpf (0-5); URINE BACTERIA RARE (<OCC); URINE BILIRUBIN NEGATIVE (NEGATIVE); URINE BLOOD NEGATIVE (NEGATIVE); URINE CLARITY Hazy (Clear); URINE COLOR Yellow (YELLOW); URINE GLUCOSE (UA) NORMAL (Normal); URINE LEUKOCYTE ESTERASE 1+ Leu/uL (Negative); URINE PROTEIN NEGATIVE (NEGATIVE); URINE UROBILINOGEN NORMAL mg/dL (0.2-1.0)
[2017-12-15] MEDS: Oxycodone/Acetaminophen 5/325 mg Tab PO PRN ×2 (17:30→21:36)
--- NOTE | 2017-12-15 18:51 | CP.PCM.CON ---
History of Present Illness - History of Present Illness History of Present Illness: 77 year old female with past medical history of C.Diff (11/06); ischemic bowel resection, B/L PE (10/2017), HTN, Afib; PE; HLD, DM, CAD, CABG, Hx of Breast Cancer (s/p lumpectomy) and Hypothyroidism who presents to the ER for diarrhea. Patient states she has been having diarrhea for about 5 days with no improvement. She states the stool is watery and she has about 8 episodes of diarrhea per day. She states she saw Dr. Jimenez a week ago who gave her Loperamide but as soon as she stopped she continued to have diarrhea. She was given Vanco at but didnt fill it She was given Flagyl but didnt fill it She states she has been having chills and subjective fever. She states she has been having diffuse lower abdominal pain about an 8/10. She states she has not had much of an appetite and has lost about 30lbs since her surgery in October. She denies chest pain, shortness of breath, nausea or vomiting. PMD: Tony Past Medical History: C.Diff (11/06); ischemic bowel resection, B/L PE (10/2017), HTN, Afib; PE; HLD, DM, CAD, CABG, Hx of Breast Cancer (s/p lumpectomy) and Hypothyroidism Past Surgical History: ischemic bowel resection (10/08/17), Pacemaker (placed on the right due to Hx Breast Cancer) Family History: Strong Cardiac history, most family member of cardiac complications Medications: Apixaban [Eliquis] 5 mg PO BID; diltiaZEM [Cardizem] 60 mg PO Q6H; Levothyroxine 50 mcg PO DAILY; Losartan 100 mg PO DAILY; Metformin 500 mg PO BID ; Mirtazapine 15 mg PO HS; Rosuvastatin Calcium [Crestor] 5 mg NG HS Allergies: NKDA Social History: Denies alcohol, smoking and illicit drug use Present on Admission - Present on Admission Any Indicators Present on Admission: Yes History of DVT/PE: Yes Review of Systems - Constitutional Constitutional: Chills, Fever - Cardiovascular Cardiovascular: absent: Chest Pain, Dyspnea - Respiratory Respiratory: absent: Dyspnea - Gastrointestinal Gastrointestinal: Abdominal Pain, Diarrhea. absent: Constipation, Nausea, Vomiting - Genitourinary Genitourinary: absent: Dysuria - Neurological Neurological: Weakness. absent: Dizziness, Headaches Past Patient History - Past Medical History & Family History Past Medical History?: Yes - Past Social History Smoking Status: Former Smoker - CARDIAC Hx Cardia Arrhythmia: Yes Hx Hypercholesterolemia: Yes Hx Hypertension: Yes Hx Pacemaker: Yes - PULMONARY Hx Chronic Obstructive Pulmonary Disease (COPD): Yes - NEUROLOGICAL Hx Neurological Disorder: Yes - HEENT Hx HEENT Problems: Yes Hx Cataracts: Yes (removed bilateral 2011) - RENAL Hx Chronic Kidney Disease: No - ENDOCRINE/METABOLIC Hx Hypothyroidism: Yes - HEMATOLOGICAL/ONCOLOGICAL Hx Blood Disorders: Yes Hx Cancer: Yes (LEFT BREAST-RADIATION TX. DONE) - INTEGUMENTARY Hx Dermatological Problems: Yes Other/Comment: CANCER LEFT BREAST-LUMPECTOMY DONE - MUSCULOSKELETAL/RHEUMATOLOGICAL Hx Arthritis: Yes (KNEE PAIN) Hx Falls: No - GASTROINTESTINAL Hx Gastrointestinal Disorders: No - GENITOURINARY/GYNECOLOGICAL Hx Genitourinary Disorders: No - PSYCHIATRIC Hx Anxiety: Yes Hx Depression: Yes Hx Substance Use: No - SURGICAL HISTORY Hx Coronary Artery Bypass Graft: Yes (jan 17 2013 TRIPLE) Hx Coronary Stent: Yes Hx Tonsillectomy: Yes - ANESTHESIA Hx Anesthesia: Yes Hx Anesthesia Reactions: No Hx Malignant Hyperthermia: No Meds Allergies/Adverse Reactions: Allergies Allergy/AdvReac Type Severity Reaction Status Date / Time No Known Allergies Allergy Verified 12/14/17 23:53 - Medications Medications: Current Medications Apixaban (Eliquis) 5 mg PO BID [facility] Last Admin: 12/15/17 17:30 Dose: 5 mg Dextrose (Dextrose 50% Inj) 0 ml IV STAT PRN; Protocol PRN Reason: Hypoglycemia Protocol Dextrose (Glutose 15) 0 gm PO ONCE PRN; Protocol PRN Reason: Hypoglycemia Protocol Diltiazem HCl (Cardizem) 60 mg PO Q6H [facility] Last Admin: 12/15/17 17:30 Dose: 60 mg Glucagon (Glucagen Diagnostic Kit) 0 mg IM STAT PRN; Protocol PRN Reason: Hypoglycemia Protocol Dextrose (Dextrose 5% In Water 1000 Ml) 1,000 mls @ 0 mls/hr IV .Q0M PRN; Protocol; Per Protocol PRN Reason: Hypoglycemia Protocol Insulin Human Regular (Novolin R) 0 unit SC ACHS [facility] PRN Reason: Protocol Last Admin: 12/15/17 17:16 Dose: Not Given Levothyroxine Sodium (Synthroid) 50 mcg PO DAILY@0630 [facility] Last Admin: 12/15/17 06:20 Dose: 50 mcg Losartan Potassium (Cozaar) 100 mg PO DAILY [facility] Last Admin: 12/15/17 09:42 Dose: 100 mg Mirtazapine (Remeron) 15 mg PO HS [facility] Oxycodone/Acetaminophen (Percocet 5/325 Mg Tab) 1 tab PO Q4H PRN PRN Reason: Pain, moderate (4-7) Stop: 12/18/17 04:26 Last Admin: 12/15/17 17:30 Dose: 1 tab Pantoprazole Sodium (Protonix Ec Tab) 40 mg PO DAILY [facility] Last Admin: 12/15/17 09:42 Dose: 40 mg Saccharomyces Boulardii (Florastor) 250 mg PO DAILY [facility] Last Admin: 12/15/17 09:42 Dose: 250 mg Vancomycin HCl (Vancocin (Oral Or Rectal Use)) 125 mg PO Q6H [facility] PRN Reason: Protocol Last Admin: 12/15/17 13:23 Dose: 125 mg Physical Exam - Constitutional Appears: Chronically Ill - Head Exam Head Exam: ATRAUMATIC, NORMOCEPHALIC - Eye Exam Eye Exam: PERRL. absent: Scleral icterus - ENT Exam ENT Exam: Mucous Membranes Dry, Normal External Ear Exam - Neck Exam Neck exam: Negative for: Lymphadenopathy - Respiratory Exam Respiratory Exam: Decreased Breath Sounds - Cardiovascular Exam Cardiovascular Exam: REGULAR RHYTHM - GI/Abdominal Exam GI & Abdominal Exam: Diminished Bowel Sounds, Distended, Guarding, Soft, Tenderness. absent: Pulsatile Mass, Rebound, Rigid - Rectal Exam Rectal Exam: Deferred - Exam Exam: NORMAL INSPECTION - Extremities Exam Extremities exam: Positive for: pedal pulses present. Negative for: calf tenderness, pedal edema, tenderness - Back Exam Back exam: absent: CVA tenderness (L), CVA tenderness (R) - Neurological Exam Neurological exam: Alert, CN II-XII Intact, Oriented x3, Reflexes Normal - Psychiatric Exam Psychiatric exam: Normal Mood - Skin Skin Exam: Dry Results - Vital Signs Recent Vital Signs: Last Vital Signs Temp 98.7 F 12/15/17 16:31 Pulse 86 12/15/17 16:31 Resp 20 12/15/17 16:31 BP 109/64 12/15/17 16:31 Pulse Ox 97 12/15/17 16:31 - Labs Result Diagrams: 12/15/17 00:16 12/15/17 00:16 Labs: Laboratory Results - last 24 hr 12/15/17 12/15/17 12/15/17 00:04 00:16 00:16 WBC 14.5 H D RBC 4.11 Hgb 11.7 Hct 36.6 MCV 89.0 MCH 28.5 MCHC 32.0 L RDW 18.0 H Plt Count 410 H D MPV 8.6 Neut % (Auto) 42.5 L Lymph % (Auto) 38.9 [place] % (Auto) 17.1 H Eos % (Auto) 1.2 Baso % (Auto) 0.3 Neut # (Auto) 6.2 Lymph # (Auto) 5.6 H [place] # (Auto) 2.5 H Eos # (Auto) 0.2 Baso # (Auto) 0.0 PT 19.1 H INR 1.7 APTT 31 pO2 VBG pH VBG pCO2 VBG HCO3 VBG Total CO2 VBG O2 Sat (Calc) VBG Base Excess VBG Potassium Glucose Lactate Sodium Potassium Chloride Carbon Dioxide Anion Gap BUN Creatinine Est GFR ( Amer) Est GFR (Non-Af Amer) POC Glucose (mg/dL) Random Glucose Calcium Total Bilirubin AST ALT Alkaline Phosphatase Total Protein Albumin Globulin Albumin/Globulin Ratio Lipase Venous Blood Potassium Urine Color Urine Clarity Urine pH Ur Specific Deal Urine Protein Urine Glucose (UA) Urine Ketones Urine Blood Urine Nitrate Urine Bilirubin Urine Urobilinogen Ur Leukocyte Esterase Urine WBC (Auto) Urine RBC (Auto) Ur Squamous Epith Cells Urine Bacteria Stool Leukocytes, Qual C. difficile Ag & Toxin Positive H 12/15/17 12/15/17 12/15/17 00:16 00:44 04:48 WBC RBC Hgb Hct MCV MCH MCHC RDW Plt Count MPV Neut % (Auto) Lymph % (Auto) [place] % (Auto) Eos % (Auto) Baso % (Auto) Neut # (Auto) Lymph # (Auto) [place] # (Auto) Eos # (Auto) Baso # (Auto) PT INR APTT pO2 19 L VBG pH 7.41 VBG pCO2 43 VBG HCO3 24.8 VBG Total CO2 28.6 H VBG O2 Sat (Calc) 25.5 L VBG Base Excess 2.2 H VBG Potassium 3.8 Glucose 110 H Lactate 1.9 Sodium 135 137.0 Potassium 4.1 Chloride 100 102.0 Carbon Dioxide 23 Anion Gap 16 BUN 14 Creatinine 0.8 Est GFR ( Amer) > 60 Est GFR (Non-Af Amer) > 60 POC Glucose (mg/dL) 107 Random Glucose 109 H Calcium 8.8 Total Bilirubin 0.4 AST 18 ALT 16 Alkaline Phosphatase 149 H Total Protein 6.6 Albumin 2.8 L D Globulin 3.8 Albumin/Globulin Ratio 0.7 L Lipase 22 L Venous Blood Potassium 3.8 Urine Color Urine Clarity Urine pH Ur Specific Deal Urine Protein Urine Glucose (UA) Urine Ketones Urine Blood Urine Nitrate Urine Bilirubin Urine Urobilinogen Ur Leukocyte Esterase Urine WBC (Auto) Urine RBC (Auto) Ur Squamous Epith Cells Urine Bacteria Stool Leukocytes, Qual C. difficile Ag & Toxin 12/15/17 12/15/17 12/15/17 05:48 11:40 14:27 WBC RBC Hgb Hct MCV MCH MCHC RDW Plt Count MPV Neut % (Auto) Lymph % (Auto) [place] % (Auto) Eos % (Auto) Baso % (Auto) Neut # (Auto) Lymph # (Auto) [place] # (Auto) Eos # (Auto) Baso # (Auto) PT INR APTT pO2 VBG pH VBG pCO2 VBG HCO3 VBG Total CO2 VBG O2 Sat (Calc) VBG Base Excess VBG Potassium Glucose Lactate Sodium Potassium Chloride Carbon Dioxide Anion Gap BUN Creatinine Est GFR ( Amer) Est GFR (Non-Af Amer) POC Glucose (mg/dL) 176 H Random Glucose Calcium Total Bilirubin AST ALT Alkaline Phosphatase Total Protein Albumin Globulin Albumin/Globulin Ratio Lipase Venous Blood Potassium Urine Color Yellow Urine Clarity Hazy Urine pH 5.0 Ur Specific Deal 1.041 H Urine Protein Negative Urine Glucose (UA) Normal Urine Ketones Negative Urine Blood Negative Urine Nitrate Negative Urine Bilirubin Negative Urine Urobilinogen Normal Ur Leukocyte Esterase 1+ H Urine WBC (Auto) 10 H Urine RBC (Auto) 1 Ur Squamous Epith Cells 2 Urine Bacteria Rare Stool Leukocytes, Qual Positive H C. difficile Ag & Toxin 12/15/17 17:14 WBC RBC Hgb Hct MCV MCH MCHC RDW Plt Count MPV Neut % (Auto) Lymph % (Auto) [place] % (Auto) Eos % (Auto) Baso % (Auto) Neut # (Auto) Lymph # (Auto) [place] # (Auto) Eos # (Auto) Baso # (Auto) PT INR APTT pO2 VBG pH VBG pCO2 VBG HCO3 VBG Total CO2 VBG O2 Sat (Calc) VBG Base Excess VBG Potassium Glucose Lactate Sodium Potassium Chloride Carbon Dioxide Anion Gap BUN Creatinine Est GFR ( Amer) Est GFR (Non-Af Amer) POC Glucose (mg/dL) 105 Random Glucose Calcium Total Bilirubin AST ALT Alkaline Phosphatase Total Protein Albumin Globulin Albumin/Globulin Ratio Lipase Venous Blood Potassium Urine Color Urine Clarity Urine pH Ur Specific Deal Urine Protein Urine Glucose (UA) Urine Ketones Urine Blood Urine Nitrate Urine Bilirubin Urine Urobilinogen Ur Leukocyte Esterase Urine WBC (Auto) Urine RBC (Auto) Ur Squamous Epith Cells Urine Bacteria Stool Leukocytes, Qual C. difficile Ag & Toxin Assessment & Plan (1) Abdominal pain Status: Acute (2) C. difficile colitis Status: Acute (3) Diarrhea Status: Acute - Assessment and Plan (Free Text) Assessment: cont po VANCO NEEDS AUTH FOR MEDS FROM PHARM
[2017-12-16] MEDS: Oxycodone/Acetaminophen 5/325 mg Tab PO PRN ×3 (01:05→19:20)
[2017-12-16] MEDS: Vancomycin 125 MG/5 ML SOLN (ORAL/RECTAL) PO SCH ×4 (01:48→19:20)
[2017-12-16] MEDS: Levothyroxine 50 MCG TAB PO SCH (05:58)
[2017-12-16 07:33] LABS: BASO % 0.3 % (0.0-2.0); EOS # 0.3 K/uL (0.0-0.7); EOS % 3.9 % (0.0-4.0); HEMOGLOBIN 11.7 g/dL (11.0-16.0); LYMPH # 3.6 K/uL (1.0-4.3); LYMPH % 40.8 % (20.0-40.0); MEAN CORPUSCULAR HEMOGLOBIN 29.6 pg (27.0-31.0); MEAN CORPUSCULAR HGB CONC 32.9 g/dL (33.0-37.0); MEAN PLATELET VOLUME 8.8 fL (7.2-11.7); MONO % 23.3 % (0.0-10.0); NEUT # 2.8 K/uL (1.8-7.0); NEUT % 31.7 % (50.0-75.0); NRBC % 0.1 % (0.0-2.0); PLATELET COUNT 339 K/uL (130-400); RBC 3.95 Mil/uL (3.80-5.20); RED CELL DISTRIBUTION WIDTH 17.7 % (11.5-14.5); WHITE BLOOD COUNT 8.8 K/uL (4.8-10.8)
[2017-12-16 07:34] LABS: ALB/GLOB RATIO 0.7 (1.0-2.1); ALBUMIN 2.4 g/dL (3.5-5.0); ALT/SGPT 13 U/L (9-52); AST/SGOT 15 U/L (14-36); BLOOD UREA NITROGEN 12 mg/dL (7-17); CALCIUM 7.8 mg/dl (8.6-10.4); GFR AFRICAN-AMERICAN > 60; GFR NON-AFRICAN AMERICAN > 60
[2017-12-16] MEDS: (Novolin R) Insulin Human Regular 100 units/ml vial SC SCH ×4 (07:55→21:26)
[2017-12-16 08:32] LABS: ANISOCYTOSIS SLIGHT; BANDS 7 % (0-2); EOSINOPHIL 2 % (0-4); LYMPHOCYTE 41 % (20-40); MONOCYTE 18 % (0-10); NEUTROPHIL 32 % (50-75); PLATELET ESTIMATE NORMAL (NORMAL); POIKILOCYTOSIS SLIGHT; TOTAL CELLS COUNTED 100
[2017-12-16 08:33] LABS: HYPOCHROMIC SLIGHT; LARGE PLATELETS PRESENT; OVALOCYTES SLIGHT
[2017-12-16] MEDS ORDERED: Potassium Chloride 20 mEq ER Tab PO ONE ×2 (09:17→09:30)
[2017-12-16] MEDS ORDERED: Magnesium Sulfate 1 gm in D5W 1 GM/100 ML BAG IVPB ONE (09:30)
[2017-12-16] MEDS: Pantoprazole 40 mg EC Tab PO SCH (09:44)
[2017-12-16] MEDS: Magnesium Sulfate 1 gm in D5W 1 GM/100 ML BAG IVPB SCH ×2 (09:44→11:38)
[2017-12-16] MEDS: Saccharomyces Boulardi 250 mg Cap PO SCH (09:44)
--- NOTE | 2017-12-16 11:37 | CP.PCM.PN ---
Subjective - Date & Time of Evaluation Date of Evaluation: 12/16/17 Time of Evaluation: 09:00 - Subjective Subjective: Medicine progress note for Dr. Valentin Patient seen and examined. Patient reports that she had 1 episode of watery stools this morning just prior to the encounter. Patient initially had no other complaint; however, on rounds, patient complained of shortness of breath and racing heartbeats. Patient was very anxious and thinking about her current social situation especially with her children and her financial status. Objective - Vital Signs/Intake and Output Vital Signs (last 24 hours): Temp Pulse Resp BP Pulse Ox 97.1 F L 63 22 111/56 L 99 12/16/17 10:15 12/16/17 11:25 12/16/17 10:15 12/16/17 11:25 12/16/17 11:25 Intake and Output: 12/16/17 12/16/17 06:59 18:59 Intake Total 500 Output Total 300 Balance 200 - Medications Medications: Current Medications Apixaban (Eliquis) 5 mg PO BID [facility] Last Admin: 12/16/17 09:44 Dose: 5 mg Dextrose (Dextrose 50% Inj) 0 ml IV STAT PRN; Protocol PRN Reason: Hypoglycemia Protocol Dextrose (Glutose 15) 0 gm PO ONCE PRN; Protocol PRN Reason: Hypoglycemia Protocol Diltiazem HCl (Cardizem) 60 mg PO Q6H [facility] Last Admin: 12/16/17 09:44 Dose: 60 mg Glucagon (Glucagen Diagnostic Kit) 0 mg IM STAT PRN; Protocol PRN Reason: Hypoglycemia Protocol Dextrose (Dextrose 5% In Water 1000 Ml) 1,000 mls @ 0 mls/hr IV .Q0M PRN; Protocol; Per Protocol PRN Reason: Hypoglycemia Protocol Magnesium Sulfate/Dextrose (Magnesium Sulfate 1 Gm/100 Ml D5w) 1 gm in 100 mls @ 300 mls/hr IVPB Q30M [facility] Stop: 12/16/17 12:19 Insulin Human Regular (Novolin R) 0 unit SC ACHS [facility] PRN Reason: Protocol Last Admin: 12/16/17 07:55 Dose: Not Given Levothyroxine Sodium (Synthroid) 50 mcg PO DAILY@0630 [facility] Last Admin: 12/16/17 05:58 Dose: 50 mcg Losartan Potassium (Cozaar) 100 mg PO DAILY [facility] Last Admin: 12/16/17 09:44 Dose: 100 mg Mirtazapine (Remeron) 15 mg PO HS [facility] Last Admin: 12/15/17 21:36 Dose: 15 mg Nitroglycerin (Nitrostat Sl Tab) 0.4 mg SL Q5M PRN PRN Reason: angina, dyspnea Last Admin: 12/16/17 10:40 Dose: 0.4 mg Oxycodone/Acetaminophen (Percocet 5/325 Mg Tab) 1 tab PO Q4H PRN PRN Reason: Pain, moderate (4-7) Stop: 12/18/17 04:26 Last Admin: 12/16/17 08:18 Dose: 1 tab Pantoprazole Sodium (Protonix Ec Tab) 40 mg PO DAILY [facility] Last Admin: 12/16/17 09:44 Dose: 40 mg Saccharomyces Boulardii (Florastor) 250 mg PO DAILY [facility] Last Admin: 12/16/17 09:44 Dose: 250 mg Vancomycin HCl (Vancocin (Oral Or Rectal Use)) 125 mg PO Q6H [facility] PRN Reason: Protocol Last Admin: 12/16/17 08:12 Dose: 125 mg - Labs Labs: 12/16/17 07:11 12/16/17 07:11 PT 19.1 SECONDS (9.7-12.2) H 12/15/17 00:16 INR 1.7 12/15/17 00:16 APTT 31 SECONDS (21-34) 12/15/17 00:16 - Additional Findings Additional findings: - Constitutional Appears: No Acute Distress, Cachectic - Head Exam Head Exam: ATRAUMATIC, NORMAL INSPECTION - Eye Exam Eye Exam: EOMI, Normal appearance - ENT Exam ENT Exam: Mucous Membranes Dry - Respiratory Exam Respiratory Exam: Clear to Auscultation Bilateral, NORMAL BREATHING PATTERN. absent: Rales, Rhonchi, Wheezes, Stridor - Cardiovascular Exam Cardiovascular Exam: REGULAR RHYTHM, RRR, +S1, +S2 - GI/Abdominal Exam GI & Abdominal Exam: Normal Bowel Sounds, Soft. absent: Firm, Guarding, Tenderness - Extremities Exam Extremities exam: Positive for: normal inspection - Neurological Exam Neurological exam: Alert, Oriented x3 - Psychiatric Exam Psychiatric exam: Anxious, Depressed - Skin Skin Exam: Dry, Intact, Normal Color Assessment and Plan - Assessment and Plan (Free Text) Plan: 1.) Diarrhea Infectious Disease consult, Dr Mangia c.diff positive f/u ova and parasite Stool leukocytes f/u stool culture Imaging: CT Abdomen/Pelvis: There is moderate amount of stool in the colon with colonic wall thickening. Correlation with clinical data is recommended if nonspecific versus stool related colitis as clinically suspected. There is left lower lobe pleural-based pulmonary nodule measuring 1.2 cm likely representing residue of nodular consolidation. Meds: * Vancomycin 125 mg PO Q6H f * Florastor 250mg PO QD * Per Dr Zapata, patient should be on Dificid however cost is too high and pharmacy did not approve, it might be best for patient to go to another hospital where she can get dificid Patient will stay until we can control her diarrhea. While inpatient, she can be treated with oral vancomycin and upon discharge can be sent with oral Flagyl. Patient is unable to afford oral vancomycin in the outpatient setting because her insurance. 2.) Thrombocytosis possibly secondary to infection Resolved and will continue to monitor 3.) History of Bowel Ischemia (10/08/17: Exploratory laparotomy, small bowel resection and primary anastomosis) Stable Continue to monitor 4.) History of Chest Pain, LBBB, CAD, CABG, Pacemaker, Aortic Stenosis, New Onset A-fib * Eiliquis 5.0 mg PO 2x/day * Cardizem 60 mg PO Q6H * Cozaar 100 mg PO 1x/day * Crestor 5 mg PO 1x/day * Nitro SL prn EKG performed today shows no acute ST segment changes with heart rate 68 bpm JOANNA panel performed today was negative 5.) History of Bilateral PE * Eliquis 5 mg PO 2x/day 6.) History of Melena/BRBPR EGD 10/18/17: esophageal ulcer 7 mm nonbleeding, duodenum with superficial ulceration, adherent blood clot in jejunum 7.) History of Breast CA/Lumpectomy stable No acute intervention 8.) History of HTN * Cozaar 100 mg PO 1x/day * Cardizem 60 mg PO Q6H Can add Metoprolol Succinate 25 mg PO 1x/day IF there are any issues of uncontrolled blood pressure/heart rate as the patient was on this in the past 9.) History of HLD * Crestor 5 mg PO 1x/day 10.) History of DM Type II Accucheck Hypoglycemia Protocol ISS 11.) History of Hypothyroidism * Levothyroxine 50 mcg PO 1x/day 12.) Anxiety One dose of Klonopin 0.5 mg given for anxiety Psychiatry consult, Dr. Anaya, help appreciated 13.) Hypomagnesemia Replenished with mag sulfate x 2 bags today Start Mag oxide 400 mg PO BID 14.) Prophylaxis - Mirtazapine 15 mg PO HS for sleep - Protonix 40 mg PO 1x/day - Ensure 3x/day - PT eval and treat Disposition: Patient will stay until we can control her diarrhea. While inpatient, she can be treated with oral vancomycin and upon discharge can be sent with oral Flagyl. Patient is unable to afford oral vancomycin in the outpatient setting because her insurance. Discussed with Dr. Homero Lion PGY-1
[2017-12-16 11:41] LABS: CK-MB 0.55 ng/mL (0.0-3.38)
[2017-12-16] MEDS ORDERED: Magnesium Sulfate 1 gm in D5W 1 GM/100 ML BAG IVPB SCH (12:00)
--- NOTE | 2017-12-16 12:53 | PCM.PSYCH ---
Initial Psychiatric Evaluation - Initial Psychiatric Evaluation Type of Admission: Voluntary Legal Status: Capacity Chief Complaint (in patient's own words): I am feeling meagan.' History of Present Illness and Precipitating Events: Patient is a 77 year old female with PMHx of C.Diff (11/06); ischemic bowel resection, B/L PE (10/2017), HTN, Afib; PE; HLD, DM, CAD, CABG, Hx of Breast Cancer (s/p lumpectomy) and Hypothyroidism who presents to the ER for diarrhea. Today pt was consulted for depressed and anxious mood. Pt reports history of depressed mood. However she denies any history of inpatient psychiatric hospitalizations and denies any history of follow up with any psychiatrist. She reports depressed mood and difficulty in going to sleep. However she denies any feelings of hopelessness and helplessness. She denies any SI/HI or any AVH. She denies any manic symptoms. She denies any substance abuse. Current Medications: Active Medications Generic Name Dose Route Start Last Admin Trade Name Freq PRN Reason Stop Dose Admin Apixaban 5 mg 12/15/17 10:00 12/16/17 09:44 Eliquis PO 5 mg BID TIM Administration Dextrose 0 ml 12/15/17 04:28 Dextrose 50% Inj IV STAT PRN Hypoglycemia Protocol Protocol Dextrose 0 gm 12/15/17 04:28 Glutose 15 PO ONCE PRN Hypoglycemia Protocol Protocol Diltiazem HCl 60 mg 12/15/17 04:30 12/16/17 09:44 Cardizem PO 60 mg Q6H TIM Administration Glucagon 0 mg 12/15/17 04:28 Glucagen Diagnostic Kit IM STAT PRN Hypoglycemia Protocol Protocol Dextrose 1,000 mls @ 0 mls/hr 12/15/17 04:28 Dextrose 5% In Water 1000 Ml IV .Q0M PRN Hypoglycemia Protocol Protocol Per Protocol Insulin Human Regular 0 unit 12/15/17 07:30 12/16/17 12:23 Novolin R SC Not Given ACHS TIM Protocol Levothyroxine Sodium 50 mcg 12/15/17 06:30 12/16/17 05:58 Synthroid PO 50 mcg DAILY@0630 TIM Administration Losartan Potassium 100 mg 12/15/17 10:00 12/16/17 09:44 Cozaar PO 100 mg DAILY TIM Administration Mirtazapine 15 mg 12/15/17 22:00 12/15/17 21:36 Remeron PO 15 mg HS TIM Administration Nitroglycerin 0.4 mg 12/16/17 10:27 12/16/17 10:40 Nitrostat Sl Tab SL 0.4 mg Q5M PRN Administration angina, dyspnea Oxycodone/Acetaminophen 1 tab 12/15/17 04:25 12/16/17 08:18 Percocet 5/325 Mg Tab PO 12/18/17 04:26 1 tab Q4H PRN Administration Pain, moderate (4-7) Pantoprazole Sodium 40 mg 12/15/17 10:00 12/16/17 09:44 Protonix Ec Tab PO 40 mg DAILY TIM Administration Saccharomyces Boulardii 250 mg 12/15/17 10:00 12/16/17 09:44 Florastor PO 250 mg DAILY TIM Administration Vancomycin HCl 125 mg 12/15/17 08:00 12/16/17 08:12 Vancocin (Oral Or Rectal Use) PO 125 mg Q6H TIM Administration Protocol Past Psychiatric History - Past Psychiatric History Previous Treatment History: None Pertinent Medical Hx (Current Medical&Sleep Prob, Allergies): Allergies Allergy/AdvReac Type Severity Reaction Status Date / Time No Known Allergies Allergy Verified 12/14/17 23:53 Albuterol/Ipratropium [Duoneb 3 mg/0.5 mg (3 ml) UD] 3 ml INH RQ6 PRN neb 10/31 Apixaban [Eliquis] 5 mg PO BID #60 tab 11/18/17 Levothyroxine [Synthroid] 50 mcg PO DAILY@0630 #30 tab 11/18/17 Losartan [Cozaar] 100 mg PO DAILY #30 tab 11/18/17 Mirtazapine [Remeron] 15 mg PO HS #30 tab 11/18/17 Rosuvastatin Calcium [Crestor] 5 mg NG HS #30 tab 11/18/17 Saccharomyces Boulardii [Florastor] 250 mg PO BID #80 capsule 11/18/17 Vancomycin [Vancocin (ORAL OR RECTAL USE)] 125 mg PO TID #63 soln 11/18/17 diltiaZEM [Cardizem] 60 mg PO Q6H #120 tab 11/18/17 metFORMIN [glucOPHAGE] 500 mg PO BID #60 tab 03/02/18 Review of Systems - Review of Systems All systems: reviewed and no additional remarkable complaints except - Psychiatric Psychiatric: Anxiety. absent: Auditory Hallucinations, Paranoia, Suicidal Ideation Mental Status Examination - Personal Presentation Personal Presentation: Looks stated age - Affect Affect: Constricted - Motor Activity Motor Activity: Calm - Reliability in Providing Information Reliability in Providing Information: Good - Speech Speech: Organized - Mood Mood: Depressed - Formal Thought Process Formal Thought Process: No Impairment - Obsessions/Compulsions Obsessions: No Compulsions: No - Cognitive Functions Orientation: Person, Place, Situation, Time Sensorium: Alert Attention/Concentration: Attentive Abstract Thinking: [place] Estimate of Intelligence: Below average Judgement: Imparied, as evidence by: Poor judgement, Intact, as evidence by: Insight regarding need for hospitalization - Risk Risk: Diminished functioning - Strength & Assets Inventory Strength & Assets Inventory: Family support DSM 5 DX - DSM 5 DSM 5 Diagnosis: Depressive disorder - Recommended/Plan of Treatment Treatment Recommendations and Plan of Treatment: Depressive disorder -Psychoeducation -Supportive therapy, group therapy, individual therapy -Remeron 15 mg by mouth HS -Hydroxyzine 25 mg PO Q 6 hr prn Pt psychiatrically stable and clear for discharge.
--- NOTE | 2017-12-16 13:39 | CARD ---
APPROVED REPORT EKG Measurement Heart [id number] <Conclusion> Sinus rhythm with premature atrial complexes with aberrant conduction Inferior infarct, age undetermined ST & T wave abnormality, consider anterolateral ischemia Abnormal ECG
[2017-12-16 16:25] VITALS: RESP 20
[2017-12-16] MEDS: Magnesium Oxide 400 mg Tab UD PO SCH (17:40)
--- NOTE | 2017-12-17 00:57 | CP.PCM.PN ---
<Gamal Alicea R - Last Filed: 12/17/17 00:55> Subjective - Date & Time of Evaluation Date of Evaluation: 12/17/17 Time of Evaluation: 00:55 - Subjective Subjective: PGY-[address] Fara Hastings. No acute events noted overnight. Patient did not offer any complaints. She said she still has water diarrhea but it has improved since prior to admission. She denied chest pain, abdominal pain, shortness of breath, fever, pain. Objective - Vital Signs/Intake and Output Vital Signs (last 24 hours): Temp Pulse Resp BP Pulse Ox 97.9 F 78 20 105/61 94 L 12/16/17 23:40 12/16/17 23:40 12/16/17 23:40 12/16/17 23:40 12/16/17 23:40 - Medications Medications: Current Medications Apixaban (Eliquis) 5 mg PO BID [facility] Last Admin: 12/16/17 17:40 Dose: 5 mg Dextrose (Dextrose 50% Inj) 0 ml IV STAT PRN; Protocol PRN Reason: Hypoglycemia Protocol Dextrose (Glutose 15) 0 gm PO ONCE PRN; Protocol PRN Reason: Hypoglycemia Protocol Diltiazem HCl (Cardizem) 60 mg PO Q6H [facility] Last Admin: 12/16/17 21:43 Dose: 60 mg Glucagon (Glucagen Diagnostic Kit) 0 mg IM STAT PRN; Protocol PRN Reason: Hypoglycemia Protocol Hydroxyzine HCl (Atarax) 25 mg PO Q6 PRN PRN Reason: Anxiety Dextrose (Dextrose 5% In Water 1000 Ml) 1,000 mls @ 0 mls/hr IV .Q0M PRN; Protocol; Per Protocol PRN Reason: Hypoglycemia Protocol Insulin Human Regular (Novolin R) 0 unit SC [facility] PRN Reason: Protocol Last Admin: 12/16/17 21:26 Dose: Not Given Levothyroxine Sodium (Synthroid) 50 mcg PO DAILY@0630 [facility] Last Admin: 12/16/17 05:58 Dose: 50 mcg Losartan Potassium (Cozaar) 100 mg PO DAILY [facility] Last Admin: 12/16/17 09:44 Dose: 100 mg Magnesium Oxide (Mag-Ox) 400 mg PO BID [facility] Last Admin: 12/16/17 17:40 Dose: 400 mg Mirtazapine (Remeron) 15 mg PO HS [facility] Last Admin: 12/16/17 21:43 Dose: 15 mg Nitroglycerin (Nitrostat Sl Tab) 0.4 mg SL Q5M PRN PRN Reason: angina, dyspnea Last Admin: 12/16/17 10:40 Dose: 0.4 mg Oxycodone/Acetaminophen (Percocet 5/325 Mg Tab) 1 tab PO Q4H PRN PRN Reason: Pain, moderate (4-7) Stop: 12/18/17 04:26 Last Admin: 12/16/17 19:20 Dose: 1 tab Pantoprazole Sodium (Protonix Ec Tab) 40 mg PO DAILY [facility] Last Admin: 12/16/17 09:44 Dose: 40 mg Saccharomyces Boulardii (Florastor) 250 mg PO DAILY [facility] Last Admin: 12/16/17 09:44 Dose: 250 mg Vancomycin HCl (Vancocin (Oral Or Rectal Use)) 125 mg PO Q6H [facility] PRN Reason: Protocol Last Admin: 12/16/17 19:20 Dose: 125 mg - Labs Labs: 12/16/17 07:11 12/16/17 07:11 PT 19.1 SECONDS (9.7-12.2) H 12/15/17 00:16 INR 1.7 12/15/17 00:16 APTT 31 SECONDS (21-34) 12/15/17 00:16 - Additional Findings Additional findings: - Constitutional Appears: No Acute Distress, Cachectic - Head Exam Head Exam: ATRAUMATIC, NORMAL INSPECTION - Eye Exam Eye Exam: EOMI, Normal appearance - ENT Exam ENT Exam: Mucous Membranes Dry - Respiratory Exam Respiratory Exam: Clear to Auscultation Bilateral, NORMAL BREATHING PATTERN. absent: Rales, Rhonchi, Wheezes, Stridor - Cardiovascular Exam Cardiovascular Exam: REGULAR RHYTHM, RRR, +S1, +S2 - GI/Abdominal Exam GI & Abdominal Exam: Normal Bowel Sounds, Soft. absent: Firm, Guarding, Tenderness - Extremities Exam Extremities exam: Positive for: normal inspection - Neurological Exam Neurological exam: Alert, Oriented x3 - Psychiatric Exam Psychiatric exam: Anxious, Depressed - Skin Skin Exam: Dry, Intact, Normal Color Assessment and Plan - Assessment and Plan (Free Text) Assessment: 1.) Diarrhea Infectious Disease consult, Dr Benny spivey.diff positive f/u ova and parasite Stool leukocytes f/u stool culture Imaging: CT Abdomen/Pelvis: There is moderate amount of stool in the colon with colonic wall thickening. Correlation with clinical data is recommended if nonspecific versus stool related colitis as clinically suspected. There is left lower lobe pleural-based pulmonary nodule measuring 1.2 cm likely representing residue of nodular consolidation. Meds: * Vancomycin 125 mg PO Q6H f * Florastor 250mg PO QD * Per Dr Zapata, patient should be on Dificid however cost is too high and pharmacy did not approve, it might be best for patient to go to another hospital where she can get dificid Patient will stay until we can control her diarrhea. While inpatient, she can be treated with oral vancomycin and upon discharge can be sent with oral Flagyl. Patient is unable to afford oral vancomycin in the outpatient setting because her insurance. 2.) Thrombocytosis possibly secondary to infection Resolved and will continue to monitor 3.) History of Bowel Ischemia (10/08/17: Exploratory laparotomy, small bowel resection and primary anastomosis) Stable Continue to monitor 4.) History of Chest Pain, LBBB, CAD, CABG, Pacemaker, Aortic Stenosis, New Onset A-fib * Eiliquis 5.0 mg PO 2x/day * Cardizem 60 mg PO Q6H * Cozaar 100 mg PO 1x/day * Crestor 5 mg PO 1x/day * Nitro SL prn EKG performed today shows no acute ST segment changes with heart rate 68 bpm JOANNA panel performed today was negative 5.) History of Bilateral PE * Eliquis 5 mg PO 2x/day 6.) History of Melena/BRBPR EGD 10/18/17: esophageal ulcer 7 mm nonbleeding, duodenum with superficial ulceration, adherent blood clot in jejunum 7.) History of Breast CA/Lumpectomy stable No acute intervention 8.) History of HTN * Cozaar 100 mg PO 1x/day * Cardizem 60 mg PO Q6H Can add Metoprolol Succinate 25 mg PO 1x/day IF there are any issues of uncontrolled blood pressure/heart rate as the patient was on this in the past 9.) History of HLD * Crestor 5 mg PO 1x/day 10.) History of DM Type II Accucheck Hypoglycemia Protocol ISS 11.) History of Hypothyroidism * Levothyroxine 50 mcg PO 1x/day 12.) Anxiety One dose of Klonopin 0.5 mg given for anxiety Psychiatry consult, Dr. Anaya, help appreciated 13.) Hypomagnesemia Replenished with mag sulfate x 2 bags today Start Mag oxide 400 mg PO BID 14.) Prophylaxis - Mirtazapine 15 mg PO HS for sleep - Protonix 40 mg PO 1x/day - Ensure 3x/day - PT eval and treat Disposition: Patient will stay until we can control her diarrhea. While inpatient, she can be treated with oral vancomycin and upon discharge can be sent with oral Flagyl. Patient is unable to afford oral vancomycin in the outpatient setting because her insurance. <Bertin Hastings - Last Filed: 12/17/17 13:51> Objective - Vital Signs/Intake and Output Vital Signs (last 24 hours): Temp Pulse Resp BP Pulse Ox 97.3 F L 65 20 102/62 96 12/17/17 08:10 12/17/17 10:00 12/17/17 08:10 12/17/17 08:10 12/17/17 08:10 - Medications Medications: Current Medications Apixaban (Eliquis) 5 mg PO BID [facility] Last Admin: 12/17/17 10:30 Dose: 5 mg Dextrose (Dextrose 50% Inj) 0 ml IV STAT PRN; Protocol PRN Reason: Hypoglycemia Protocol Dextrose (Glutose 15) 0 gm PO ONCE PRN; Protocol PRN Reason: Hypoglycemia Protocol Diltiazem HCl (Cardizem) 60 mg PO Q6H [facility] Last Admin: 12/17/17 10:30 Dose: 60 mg Emollient Ointment (Vaseline Oint) 5 gm TOP BID [facility] Last Admin: 12/17/17 10:28 Dose: 5 gm Glucagon (Glucagen Diagnostic Kit) 0 mg IM STAT PRN; Protocol PRN Reason: Hypoglycemia Protocol Hydroxyzine HCl (Atarax) 25 mg PO Q6 PRN PRN Reason: Anxiety Dextrose (Dextrose 5% In Water 1000 Ml) 1,000 mls @ 0 mls/hr IV .Q0M PRN; Protocol; Per Protocol PRN Reason: Hypoglycemia Protocol Insulin Human Regular (Novolin R) 0 unit SC [facility] PRN Reason: Protocol Last Admin: 12/17/17 12:05 Dose: Not Given Levothyroxine Sodium (Synthroid) 50 mcg PO DAILY@0630 [facility] Last Admin: 12/17/17 06:20 Dose: 50 mcg Losartan Potassium (Cozaar) 100 mg PO DAILY [facility] Last Admin: 12/17/17 10:30 Dose: 100 mg Magnesium Oxide (Mag-Ox) 400 mg PO BID [facility] Last Admin: 12/17/17 10:30 Dose: 400 mg Mirtazapine (Remeron) 15 mg PO HS [facility] Last Admin: 12/16/17 21:43 Dose: 15 mg Nitroglycerin (Nitrostat Sl Tab) 0.4 mg SL Q5M PRN PRN Reason: angina, dyspnea Last Admin: 12/16/17 10:40 Dose: 0.4 mg Oxycodone/Acetaminophen (Percocet 5/325 Mg Tab) 1 tab PO Q4H PRN PRN Reason: Pain, moderate (4-7) Stop: 12/18/17 04:26 Last Admin: 12/17/17 03:42 Dose: 1 tab Pantoprazole Sodium (Protonix Ec Tab) 40 mg PO DAILY [facility] Last Admin: 12/17/17 10:30 Dose: 40 mg Rosuvastatin Calcium (Crestor) 5 mg PO [facility] Saccharomyces Boulardii (Florastor) 250 mg PO DAILY [facility] Last Admin: 12/17/17 10:31 Dose: 250 mg Vancomycin HCl (Vancocin (Oral Or Rectal Use)) 125 mg PO Q6H [facility] PRN Reason: Protocol Last Admin: 12/17/17 08:30 Dose: 125 mg - Labs Labs: 12/17/17 08:15 12/17/17 08:15 PT 19.1 SECONDS (9.7-12.2) H 12/15/17 00:16 INR 1.7 12/15/17 00:16 APTT 31 SECONDS (21-34) 12/15/17 00:16 Attending/Attestation - Attestation I have personally seen and examined this patient.: Yes I have fully participated in the care of the patient.: Yes I have reviewed all pertinent clinical information, including history, physical exam and plan: Yes Notes (Text): 12/17/17 13:43 Patient was seen and examined at 9:30 AM. Also on ROS: Had soft bowel movement today but NO diarrhea Soreness at the abdominal prior surgical site but NO pain like she had upon presentation NO other complaints upon FULL ROS Also on Exam: Bilateral Lower Lobe inspiratory crackles Medicine Team please speak with Campus Administrative Assistant/Public Finance Specialist on Tuesday12/19/17 to obtain Vancomycin (as she could not afford it) to complete treatment at home and discharge for follow up with her PMD Dr. Jimenez. Bertin Hastings D.O.
[2017-12-17] MEDS: Vancomycin 125 MG/5 ML SOLN (ORAL/RECTAL) PO SCH ×4 (01:49→21:25)
[2017-12-17] MEDS: Oxycodone/Acetaminophen 5/325 mg Tab PO PRN (03:42)
[2017-12-17] MEDS: Levothyroxine 50 MCG TAB PO SCH (06:20)
[2017-12-17] MEDS: (Novolin R) Insulin Human Regular 100 units/ml vial SC SCH ×4 (08:00→21:27)
[2017-12-17 08:22] LABS: BASO % 0.3 % (0.0-2.0); EOS # 0.4 K/uL (0.0-0.7); EOS % 4.3 % (0.0-4.0); HEMOGLOBIN 11.6 g/dL (11.0-16.0); LYMPH # 4.1 K/uL (1.0-4.3); LYMPH % 48.2 % (20.0-40.0); MEAN CORPUSCULAR HEMOGLOBIN 30.1 pg (27.0-31.0); MEAN CORPUSCULAR HGB CONC 33.7 g/dL (33.0-37.0); MEAN PLATELET VOLUME 8.3 fL (7.2-11.7); MONO # 1.8 K/uL (0.0-0.8); MONO % 21.8 % (0.0-10.0); NEUT # 2.1 K/uL (1.8-7.0); NEUT % 25.4 % (50.0-75.0); PLATELET COUNT 369 K/uL (130-400); RBC 3.86 Mil/uL (3.80-5.20); RED CELL DISTRIBUTION WIDTH 17.7 % (11.5-14.5); WHITE BLOOD COUNT 8.4 K/uL (4.8-10.8)
[2017-12-17 08:42] LABS: ALB/GLOB RATIO 0.7 (1.0-2.1); ALBUMIN 2.2 g/dL (3.5-5.0); ALT/SGPT 16 U/L (9-52); AST/SGOT 15 U/L (14-36); BLOOD UREA NITROGEN 11 mg/dL (7-17); GFR AFRICAN-AMERICAN > 60; GFR NON-AFRICAN AMERICAN > 60
[2017-12-17 09:05] LABS: BANDS 2 % (0-2); EOSINOPHIL 1 % (0-4); LYMPHOCYTE 48 % (20-40); MONOCYTE 18 % (0-10); NEUTROPHIL 24 % (50-75); REACTIVE LYMPHOCYTES 7 % (0-0); TOTAL CELLS COUNTED 100
[2017-12-17 09:06] LABS: PLATELET ESTIMATE NORMAL (NORMAL)
[2017-12-17 09:07] LABS: ANISOCYTOSIS SLIGHT; HYPOCHROMIC SLIGHT; POLYCHROMIC SLIGHT
[2017-12-17 09:08] LABS: OVALOCYTES SLIGHT; POIKILOCYTOSIS SLIGHT
[2017-12-17] MEDS: Petrolatum Oint Foilpak (5 gm) TOP SCH ×2 (10:28→17:48)
[2017-12-17] MEDS: Magnesium Oxide 400 mg Tab UD PO SCH ×2 (10:30→17:47)
[2017-12-17] MEDS: Pantoprazole 40 mg EC Tab PO SCH (10:30)
[2017-12-17] MEDS: Saccharomyces Boulardi 250 mg Cap PO SCH (10:31)
--- NOTE | 2017-12-17 14:56 | CP.PCM.PN ---
Subjective - Date & Time of Evaluation Date of Evaluation: 12/17/17 Time of Evaluation: 08:00 - Subjective Subjective: no fever less diarrhea Objective - Vital Signs/Intake and Output Vital Signs (last 24 hours): Temp Pulse Resp BP Pulse Ox 97.3 F L 65 20 102/62 96 12/17/17 08:10 12/17/17 10:00 12/17/17 08:10 12/17/17 08:10 12/17/17 08:10 - Medications Medications: Current Medications Apixaban (Eliquis) 5 mg PO BID [facility] Last Admin: 12/17/17 10:30 Dose: 5 mg Dextrose (Dextrose 50% Inj) 0 ml IV STAT PRN; Protocol PRN Reason: Hypoglycemia Protocol Dextrose (Glutose 15) 0 gm PO ONCE PRN; Protocol PRN Reason: Hypoglycemia Protocol Diltiazem HCl (Cardizem) 60 mg PO Q6H [facility] Last Admin: 12/17/17 10:30 Dose: 60 mg Emollient Ointment (Vaseline Oint) 5 gm TOP BID [facility] Last Admin: 12/17/17 10:28 Dose: 5 gm Glucagon (Glucagen Diagnostic Kit) 0 mg IM STAT PRN; Protocol PRN Reason: Hypoglycemia Protocol Hydroxyzine HCl (Atarax) 25 mg PO Q6 PRN PRN Reason: Anxiety Dextrose (Dextrose 5% In Water 1000 Ml) 1,000 mls @ 0 mls/hr IV .Q0M PRN; Protocol; Per Protocol PRN Reason: Hypoglycemia Protocol Insulin Human Regular (Novolin R) 0 unit SC ACHS [facility] PRN Reason: Protocol Last Admin: 12/17/17 12:05 Dose: Not Given Levothyroxine Sodium (Synthroid) 50 mcg PO DAILY@0630 [facility] Last Admin: 12/17/17 06:20 Dose: 50 mcg Losartan Potassium (Cozaar) 100 mg PO DAILY [facility] Last Admin: 12/17/17 10:30 Dose: 100 mg Magnesium Oxide (Mag-Ox) 400 mg PO BID [facility] Last Admin: 12/17/17 10:30 Dose: 400 mg Mirtazapine (Remeron) 15 mg PO HS [facility] Last Admin: 12/16/17 21:43 Dose: 15 mg Nitroglycerin (Nitrostat Sl Tab) 0.4 mg SL Q5M PRN PRN Reason: angina, dyspnea Last Admin: 12/16/17 10:40 Dose: 0.4 mg Oxycodone/Acetaminophen (Percocet 5/325 Mg Tab) 1 tab PO Q4H PRN PRN Reason: Pain, moderate (4-7) Stop: 12/18/17 04:26 Last Admin: 12/17/17 03:42 Dose: 1 tab Pantoprazole Sodium (Protonix Ec Tab) 40 mg PO DAILY [facility] Last Admin: 12/17/17 10:30 Dose: 40 mg Rosuvastatin Calcium (Crestor) 5 mg PO HS [facility] Saccharomyces Boulardii (Florastor) 250 mg PO DAILY [facility] Last Admin: 12/17/17 10:31 Dose: 250 mg Vancomycin HCl (Vancocin (Oral Or Rectal Use)) 125 mg PO Q6H [facility] PRN Reason: Protocol Last Admin: 12/17/17 14:26 Dose: 125 mg - Labs Labs: 12/17/17 08:15 12/17/17 08:15 PT 19.1 SECONDS (9.7-12.2) H 12/15/17 00:16 INR 1.7 12/15/17 00:16 APTT 31 SECONDS (21-34) 12/15/17 00:16 - Constitutional Appears: Non-toxic, Chronically Ill - Head Exam Head Exam: NORMOCEPHALIC - Eye Exam Eye Exam: PERRL. absent: Scleral icterus - ENT Exam ENT Exam: Mucous Membranes Dry - Neck Exam Neck Exam: absent: Lymphadenopathy - Respiratory Exam Respiratory Exam: Decreased Breath Sounds - Cardiovascular Exam Cardiovascular Exam: REGULAR RHYTHM - GI/Abdominal Exam GI & Abdominal Exam: Distended, Soft - Rectal Exam Rectal Exam: Deferred - Exam Exam: NORMAL INSPECTION Assessment and Plan (1) Abdominal pain Status: Acute (2) C. difficile colitis Status: Acute (3) Diarrhea Status: Acute - Assessment and Plan (Free Text) Assessment: cont vanco 10-14 days
--- NOTE | 2017-12-18 01:48 | CP.PCM.PN ---
<Gamal Alicea R - Last Filed: 12/18/17 01:46> Subjective - Date & Time of Evaluation Date of Evaluation: 12/18/17 Time of Evaluation: 01:46 - Subjective Subjective: PGY-[address] Fara Ellis No acute events noted overnight. Patient did not offer any complaints. She said she still has water diarrhea but it has improved since prior to admission. She denied chest pain, abdominal pain, shortness of breath, fever, pain. Objective - Vital Signs/Intake and Output Vital Signs (last 24 hours): Temp Pulse Resp BP Pulse Ox 99 F 69 20 100/61 95 12/17/17 23:25 12/18/17 00:29 12/17/17 23:25 12/17/17 23:25 12/17/17 23:25 - Medications Medications: Current Medications Apixaban (Eliquis) 5 mg PO BID [facility] Last Admin: 12/17/17 17:47 Dose: 5 mg Dextrose (Dextrose 50% Inj) 0 ml IV STAT PRN; Protocol PRN Reason: Hypoglycemia Protocol Dextrose (Glutose 15) 0 gm PO ONCE PRN; Protocol PRN Reason: Hypoglycemia Protocol Diltiazem HCl (Cardizem) 60 mg PO Q6H [facility] Last Admin: 12/17/17 17:47 Dose: 60 mg Emollient Ointment (Vaseline Oint) 5 gm TOP BID [facility] Last Admin: 12/17/17 17:48 Dose: 5 gm Glucagon (Glucagen Diagnostic Kit) 0 mg IM STAT PRN; Protocol PRN Reason: Hypoglycemia Protocol Hydroxyzine HCl (Atarax) 25 mg PO Q6 PRN PRN Reason: Anxiety Dextrose (Dextrose 5% In Water 1000 Ml) 1,000 mls @ 0 mls/hr IV .Q0M PRN; Protocol; Per Protocol PRN Reason: Hypoglycemia Protocol Insulin Human Regular (Novolin R) 0 unit SC [facility] PRN Reason: Protocol Last Admin: 12/17/17 21:27 Dose: Not Given Levothyroxine Sodium (Synthroid) 50 mcg PO DAILY@0630 [facility] Last Admin: 12/17/17 06:20 Dose: 50 mcg Losartan Potassium (Cozaar) 100 mg PO DAILY [facility] Last Admin: 12/17/17 10:30 Dose: 100 mg Magnesium Oxide (Mag-Ox) 400 mg PO BID [facility] Last Admin: 12/17/17 17:47 Dose: 400 mg Mirtazapine (Remeron) 15 mg PO HS [facility] Last Admin: 12/17/17 21:25 Dose: 15 mg Nitroglycerin (Nitrostat Sl Tab) 0.4 mg SL Q5M PRN PRN Reason: angina, dyspnea Last Admin: 12/16/17 10:40 Dose: 0.4 mg Oxycodone/Acetaminophen (Percocet 5/325 Mg Tab) 1 tab PO Q4H PRN PRN Reason: Pain, moderate (4-7) Stop: 12/18/17 04:26 Last Admin: 12/17/17 03:42 Dose: 1 tab Pantoprazole Sodium (Protonix Ec Tab) 40 mg PO DAILY [facility] Last Admin: 12/17/17 10:30 Dose: 40 mg Rosuvastatin Calcium (Crestor) 5 mg PO HS [facility] Last Admin: 12/17/17 21:27 Dose: 5 mg Saccharomyces Boulardii (Florastor) 250 mg PO DAILY [facility] Last Admin: 12/17/17 10:31 Dose: 250 mg Vancomycin HCl (Vancocin (Oral Or Rectal Use)) 125 mg PO Q6H [facility] PRN Reason: Protocol Last Admin: 12/17/17 21:25 Dose: 125 mg - Labs Labs: 12/17/17 08:15 12/17/17 08:15 PT 19.1 SECONDS (9.7-12.2) H 12/15/17 00:16 INR 1.7 12/15/17 00:16 APTT 31 SECONDS (21-34) 12/15/17 00:16 - Additional Findings Additional findings: - Constitutional Appears: No Acute Distress, Cachectic - Head Exam Head Exam: ATRAUMATIC, NORMAL INSPECTION - Eye Exam Eye Exam: EOMI, Normal appearance - ENT Exam ENT Exam: Mucous Membranes Dry - Respiratory Exam Respiratory Exam: Clear to Auscultation Bilateral, NORMAL BREATHING PATTERN. absent: Rales, Rhonchi, Wheezes, Stridor - Cardiovascular Exam Cardiovascular Exam: REGULAR RHYTHM, RRR, +S1, +S2 - GI/Abdominal Exam GI & Abdominal Exam: Normal Bowel Sounds, Soft. absent: Firm, Guarding, Tenderness - Extremities Exam Extremities exam: Positive for: normal inspection - Neurological Exam Neurological exam: Alert, Oriented x3 - Psychiatric Exam Psychiatric exam: Anxious, Depressed - Skin Skin Exam: Dry, Intact, Normal Color Assessment and Plan - Assessment and Plan (Free Text) Assessment: 1.) Diarrhea Infectious Disease consult, Dr Zapata c.diff positive f/u ova and parasite Stool leukocytes f/u stool culture Imaging: CT Abdomen/Pelvis: There is moderate amount of stool in the colon with colonic wall thickening. Correlation with clinical data is recommended if nonspecific versus stool related colitis as clinically suspected. There is left lower lobe pleural-based pulmonary nodule measuring 1.2 cm likely representing residue of nodular consolidation. Meds: * Vancomycin 125 mg PO Q6H f * Florastor 250mg PO QD * Per Dr Zapata, patient should be on Dificid however cost is too high and pharmacy did not approve, it might be best for patient to go to another hospital where she can get dificid Patient will stay until we can control her diarrhea. While inpatient, she can be treated with oral vancomycin and upon discharge can be sent with oral Flagyl. Patient is unable to afford oral vancomycin in the outpatient setting because her insurance. 2.) Thrombocytosis possibly secondary to infection Resolved and will continue to monitor 3.) History of Bowel Ischemia (10/08/17: Exploratory laparotomy, small bowel resection and primary anastomosis) Stable Continue to monitor 4.) History of Chest Pain, LBBB, CAD, CABG, Pacemaker, Aortic Stenosis, New Onset A-fib * Eiliquis 5.0 mg PO 2x/day * Cardizem 60 mg PO Q6H * Cozaar 100 mg PO 1x/day * Crestor 5 mg PO 1x/day * Nitro SL prn EKG performed today shows no acute ST segment changes with heart rate 68 bpm JOANNA panel performed today was negative 5.) History of Bilateral PE * Eliquis 5 mg PO 2x/day 6.) History of Melena/BRBPR EGD 10/18/17: esophageal ulcer 7 mm nonbleeding, duodenum with superficial ulceration, adherent blood clot in jejunum 7.) History of Breast CA/Lumpectomy stable No acute intervention 8.) History of HTN * Cozaar 100 mg PO 1x/day * Cardizem 60 mg PO Q6H Can add Metoprolol Succinate 25 mg PO 1x/day IF there are any issues of uncontrolled blood pressure/heart rate as the patient was on this in the past 9.) History of HLD * Crestor 5 mg PO 1x/day 10.) History of DM Type II Accucheck Hypoglycemia Protocol ISS 11.) History of Hypothyroidism * Levothyroxine 50 mcg PO 1x/day 12.) Anxiety One dose of Klonopin 0.5 mg given for anxiety Psychiatry consult, Dr. Anaya, help appreciated 13.) Hypomagnesemia Replenished with mag sulfate x 2 bags today Start Mag oxide 400 mg PO BID 14.) Prophylaxis - Mirtazapine 15 mg PO HS for sleep - Protonix 40 mg PO 1x/day - Ensure 3x/day - PT eval and treat Disposition: Will need to speak with Crime Investigator Special Agent/Central Supply Supervisor on Tuesday to obtain Vancomycin (as she could not afford it) to complete treatment at home and discharge for follow up with her PMD Dr. Jimenez. Otherwise will need to be discharged with Flagyl. <Shmuel Ellis - Last Filed: 12/18/17 09:37> Objective - Vital Signs/Intake and Output Vital Signs (last 24 hours): Temp Pulse Resp BP Pulse Ox 98.2 F 77 20 99/65 L 20 L 12/18/17 08:15 12/18/17 08:15 12/18/17 08:15 12/18/17 08:15 12/18/17 08:15 Intake and Output: 12/18/17 12/18/17 06:59 18:59 Intake Total 60 Balance 60 - Medications Medications: Current Medications Apixaban (Eliquis) 5 mg PO BID [facility] Last Admin: 12/18/17 09:14 Dose: 5 mg Dextrose (Dextrose 50% Inj) 0 ml IV STAT PRN; Protocol PRN Reason: Hypoglycemia Protocol Dextrose (Glutose 15) 0 gm PO ONCE PRN; Protocol PRN Reason: Hypoglycemia Protocol Diltiazem HCl (Cardizem) 60 mg PO Q6H [facility] Last Admin: 12/18/17 04:41 Dose: 60 mg Emollient Ointment (Vaseline Oint) 5 gm TOP BID [facility] Last Admin: 12/17/17 17:48 Dose: 5 gm Glucagon (Glucagen Diagnostic Kit) 0 mg IM STAT PRN; Protocol PRN Reason: Hypoglycemia Protocol Hydroxyzine HCl (Atarax) 25 mg PO Q6 PRN PRN Reason: Anxiety Dextrose (Dextrose 5% In Water 1000 Ml) 1,000 mls @ 0 mls/hr IV .Q0M PRN; Protocol; Per Protocol PRN Reason: Hypoglycemia Protocol Insulin Human Regular (Novolin R) 0 unit SC ACHS [facility] PRN Reason: Protocol Last Admin: 12/18/17 08:42 Dose: 2 unit Levothyroxine Sodium (Synthroid) 50 mcg PO DAILY@0630 [facility] Last Admin: 12/18/17 05:42 Dose: 50 mcg Losartan Potassium (Cozaar) 100 mg PO DAILY [facility] Last Admin: 12/18/17 09:14 Dose: 100 mg Magnesium Oxide (Mag-Ox) 400 mg PO BID [facility] Last Admin: 12/18/17 09:14 Dose: 400 mg Mirtazapine (Remeron) 15 mg PO HS [facility] Last Admin: 12/17/17 21:25 Dose: 15 mg Nitroglycerin (Nitrostat Sl Tab) 0.4 mg SL Q5M PRN PRN Reason: angina, dyspnea Last Admin: 12/16/17 10:40 Dose: 0.4 mg Pantoprazole Sodium (Protonix Ec Tab) 40 mg PO DAILY [facility] Last Admin: 12/18/17 09:14 Dose: 40 mg Rosuvastatin Calcium (Crestor) 5 mg PO HS [facility] Last Admin: 12/17/17 21:27 Dose: 5 mg Saccharomyces Boulardii (Florastor) 250 mg PO DAILY [facility] Last Admin: 12/18/17 09:14 Dose: 250 mg Vancomycin HCl (Vancocin (Oral Or Rectal Use)) 125 mg PO Q6H [facility] PRN Reason: Protocol Last Admin: 12/18/17 08:42 Dose: 125 mg - Labs Labs: 12/18/17 07:59 12/18/17 07:59 PT 19.1 SECONDS (9.7-12.2) H 12/15/17 00:16 INR 1.7 12/15/17 00:16 APTT 31 SECONDS (21-34) 12/15/17 00:16 Attending/Attestation - Attestation I have personally seen and examined this patient.: Yes I have fully participated in the care of the patient.: Yes I have reviewed all pertinent clinical information, including history, physical exam and plan: Yes Notes (Text): 12/18/17 09:30 Medical attending: Patient was seen and examined by me. Agree with the above note by the resident The patient explained she was still having watery stools - however much less and more formed than before She asked if she could be discharged today however this is my first time meeting her. Per review of the notes she is having problems covering the cost of the oral vancomycin. The plan is to see if case workers will be able to give us some advice or perhaps on Tuesday we will be able to procure her with this before she goes home thank you Shmuel Ellis
[2017-12-18] MEDS: Vancomycin 125 MG/5 ML SOLN (ORAL/RECTAL) PO SCH ×4 (02:31→20:16)
[2017-12-18] MEDS: Levothyroxine 50 MCG TAB PO SCH (05:42)
[2017-12-18 08:10] LABS: BASO % 0.5 % (0.0-2.0); EOS # 0.3 K/uL (0.0-0.7); EOS % 2.9 % (0.0-4.0); HEMOGLOBIN 11.7 g/dL (11.0-16.0); LYMPH # 3.6 K/uL (1.0-4.3); LYMPH % 38.1 % (20.0-40.0); MEAN CELL VOLUME 89.2 fL (81.0-99.0); MEAN CORPUSCULAR HEMOGLOBIN 29.6 pg (27.0-31.0); MEAN CORPUSCULAR HGB CONC 33.2 g/dL (33.0-37.0); MEAN PLATELET VOLUME 8.4 fL (7.2-11.7); MONO # 2.4 K/uL (0.0-0.8); MONO % 24.9 % (0.0-10.0); NEUT # 3.2 K/uL (1.8-7.0); NEUT % 33.6 % (50.0-75.0); NRBC % 0.1 % (0.0-2.0); PLATELET COUNT 353 K/uL (130-400); RBC 3.93 Mil/uL (3.80-5.20); RED CELL DISTRIBUTION WIDTH 17.5 % (11.5-14.5); WHITE BLOOD COUNT 9.4 K/uL (4.8-10.8)
[2017-12-18] MEDS: (Novolin R) Insulin Human Regular 100 units/ml vial SC SCH ×4 (08:42→21:53)
[2017-12-18 08:47] LABS: ALB/GLOB RATIO 0.7 (1.0-2.1); ALBUMIN 2.1 g/dL (3.5-5.0); ALT/SGPT 15 U/L (9-52); AST/SGOT 17 U/L (14-36); BLOOD UREA NITROGEN 13 mg/dL (7-17); CALCIUM 7.9 mg/dl (8.6-10.4); GFR AFRICAN-AMERICAN > 60; GFR NON-AFRICAN AMERICAN > 60
[2017-12-18] MEDS: Magnesium Oxide 400 mg Tab UD PO SCH ×2 (09:14→17:14)
[2017-12-18] MEDS: Pantoprazole 40 mg EC Tab PO SCH (09:14)
[2017-12-18] MEDS: Saccharomyces Boulardi 250 mg Cap PO SCH (09:14)
[2017-12-18 09:48] LABS: EOSINOPHIL 1 % (0-4); TOTAL CELLS COUNTED 100
[2017-12-18 09:50] LABS: BANDS 1 % (0-2); MONOCYTE 21 % (0-10)
[2017-12-18 09:51] LABS: ANISOCYTOSIS SLIGHT; LYMPHOCYTE 40 % (20-40); NEUTROPHIL 37 % (50-75); PLATELET ESTIMATE NORMAL (NORMAL)
[2017-12-18 09:53] LABS: OVALOCYTES SLIGHT
[2017-12-18] MEDS: Petrolatum Oint Foilpak (5 gm) TOP SCH ×2 (10:31→17:15)
[2017-12-18] MEDS ORDERED: Oxycodone/Acetaminophen 5/325 mg Tab PO PRN (17:18)
[2017-12-19] MEDS: Vancomycin 125 MG/5 ML SOLN (ORAL/RECTAL) PO SCH ×3 (02:26→13:04)
[2017-12-19] MEDS: Levothyroxine 50 MCG TAB PO SCH (05:53)
[2017-12-19 08:06] LABS: BASO % 0.3 % (0.0-2.0); EOS # 0.3 K/uL (0.0-0.7); EOS % 3.8 % (0.0-4.0); HEMOGLOBIN 10.6 g/dL (11.0-16.0); LYMPH # 3.2 K/uL (1.0-4.3); LYMPH % 40.4 % (20.0-40.0); MEAN CORPUSCULAR HEMOGLOBIN 29.4 pg (27.0-31.0); MEAN CORPUSCULAR HGB CONC 33.1 g/dL (33.0-37.0); MONO # 1.7 K/uL (0.0-0.8); MONO % 21.5 % (0.0-10.0); NEUT # 2.7 K/uL (1.8-7.0); PLATELET COUNT 363 K/uL (130-400); RBC 3.62 Mil/uL (3.80-5.20); RED CELL DISTRIBUTION WIDTH 17.8 % (11.5-14.5)
[2017-12-19] MEDS: (Novolin R) Insulin Human Regular 100 units/ml vial SC SCH ×3 (08:14→16:45)
[2017-12-19 08:18] LABS: ALB/GLOB RATIO 0.7 (1.0-2.1); ALBUMIN 1.9 g/dL (3.5-5.0); ALT/SGPT 13 U/L (9-52); AST/SGOT 17 U/L (14-36); BLOOD UREA NITROGEN 13 mg/dL (7-17); CALCIUM 7.8 mg/dl (8.6-10.4); GFR AFRICAN-AMERICAN > 60; GFR NON-AFRICAN AMERICAN > 60
[2017-12-19 08:49] VITALS: O2SAT 95
[2017-12-19] MEDS: Saccharomyces Boulardi 250 mg Cap PO SCH (09:35)
[2017-12-19] MEDS: Pantoprazole 40 mg EC Tab PO SCH (09:36)
[2017-12-19] MEDS: Petrolatum Oint Foilpak (5 gm) TOP SCH (09:36)
[2017-12-19] MEDS: Magnesium Oxide 400 mg Tab UD PO SCH ×2 (09:36→17:14)
[2017-12-19 09:52] LABS: EOSINOPHIL 6 % (0-4); LYMPHOCYTE 39 % (20-40); MONOCYTE 19 % (0-10); NEUTROPHIL 36 % (50-75); TOTAL CELLS COUNTED 100
[2017-12-19 09:53] LABS: ANISOCYTOSIS SLIGHT; PLATELET ESTIMATE NORMAL (NORMAL)
[2017-12-19 09:54] LABS: OVALOCYTES SLIGHT
--- NOTE | 2017-12-19 11:11 | CP.PCM.PN ---
Subjective - Date & Time of Evaluation Date of Evaluation: 12/19/17 Time of Evaluation: 09:00 - Subjective Subjective: IMPROVING SLOWLY Objective - Vital Signs/Intake and Output Vital Signs (last 24 hours): Temp Pulse Resp BP Pulse Ox 97.9 F 68 20 120/63 95 12/19/17 08:48 12/19/17 09:35 12/19/17 08:48 12/19/17 09:35 12/19/17 08:48 - Medications Medications: Current Medications Apixaban (Eliquis) 5 mg PO BID [facility] Last Admin: 12/19/17 09:36 Dose: 5 mg Dextrose (Dextrose 50% Inj) 0 ml IV STAT PRN; Protocol PRN Reason: Hypoglycemia Protocol Dextrose (Glutose 15) 0 gm PO ONCE PRN; Protocol PRN Reason: Hypoglycemia Protocol Diltiazem HCl (Cardizem) 60 mg PO Q6H [facility] Last Admin: 12/19/17 09:35 Dose: 60 mg Emollient Ointment (Vaseline Oint) 5 gm TOP BID [facility] Last Admin: 12/19/17 09:36 Dose: 5 gm Glucagon (Glucagen Diagnostic Kit) 0 mg IM STAT PRN; Protocol PRN Reason: Hypoglycemia Protocol Hydroxyzine HCl (Atarax) 25 mg PO Q6 PRN PRN Reason: Anxiety Dextrose (Dextrose 5% In Water 1000 Ml) 1,000 mls @ 0 mls/hr IV .Q0M PRN; Protocol; Per Protocol PRN Reason: Hypoglycemia Protocol Insulin Human Regular (Novolin R) 0 unit SC ACHS [facility] PRN Reason: Protocol Last Admin: 12/19/17 08:14 Dose: Not Given Levothyroxine Sodium (Synthroid) 50 mcg PO DAILY@0630 [facility] Last Admin: 12/19/17 05:53 Dose: 50 mcg Losartan Potassium (Cozaar) 100 mg PO DAILY [facility] Last Admin: 12/19/17 09:35 Dose: 100 mg Magnesium Oxide (Mag-Ox) 400 mg PO BID [facility] Last Admin: 12/19/17 09:36 Dose: 400 mg Mirtazapine (Remeron) 15 mg PO HS [facility] Last Admin: 12/18/17 21:52 Dose: 15 mg Nitroglycerin (Nitrostat Sl Tab) 0.4 mg SL Q5M PRN PRN Reason: angina, dyspnea Last Admin: 12/16/17 10:40 Dose: 0.4 mg Oxycodone/Acetaminophen (Percocet 5/325 Mg Tab) 1 tab PO Q4H PRN PRN Reason: Pain, moderate (4-7) Stop: 12/21/17 17:19 Last Admin: 12/18/17 17:23 Dose: 1 tab Pantoprazole Sodium (Protonix Ec Tab) 40 mg PO DAILY [facility] Last Admin: 12/19/17 09:36 Dose: 40 mg Rosuvastatin Calcium (Crestor) 5 mg PO HS [facility] Last Admin: 12/18/17 21:52 Dose: 5 mg Saccharomyces Boulardii (Florastor) 250 mg PO DAILY [facility] Last Admin: 12/19/17 09:35 Dose: 250 mg Vancomycin HCl (Vancocin (Oral Or Rectal Use)) 125 mg PO Q6H [facility] PRN Reason: Protocol Last Admin: 12/19/17 08:31 Dose: 125 mg - Labs Labs: 12/19/17 07:47 12/19/17 07:47 PT 19.1 SECONDS (9.7-12.2) H 12/15/17 00:16 INR 1.7 12/15/17 00:16 APTT 31 SECONDS (21-34) 12/15/17 00:16 - Constitutional Appears: Non-toxic, Chronically Ill - Head Exam Head Exam: NORMOCEPHALIC - Eye Exam Eye Exam: absent: Scleral icterus - ENT Exam ENT Exam: Mucous Membranes Dry - Neck Exam Neck Exam: absent: Lymphadenopathy - Respiratory Exam Respiratory Exam: Decreased Breath Sounds - Cardiovascular Exam Cardiovascular Exam: REGULAR RHYTHM - GI/Abdominal Exam GI & Abdominal Exam: Distended - Rectal Exam Rectal Exam: Deferred - Exam Exam: NORMAL INSPECTION - Extremities Exam Extremities Exam: absent: Pedal Edema - Back Exam Back Exam: absent: CVA tenderness (L), CVA tenderness (R) - Neurological Exam Neurological Exam: Alert, Awake, Oriented x3 - Psychiatric Exam Psychiatric exam: Depressed - Skin Skin Exam: Dry Assessment and Plan (1) Abdominal pain Status: Acute (2) C. difficile colitis Status: Acute (3) Diarrhea Status: Acute
[2017-12-19 16:49] VITALS: BP 107/60; PULSE 75; TEMP 97.8
--- NOTE | 2017-12-19 21:15 | CARD ---
APPROVED REPORT EKG Measurement Heart [id number] <Conclusion> Normal sinus rhythm Inferior infarct, age undetermined T wave abnormality, consider anterolateral ischemia Abnormal ECG
--- NOTE | 2017-12-20 07:34 | CP.PCM.DIS ---
<Gamal Alicea - Last Filed: 12/20/17 07:30> Provider - Provider Date of Admission: 12/15/17 03:40 Attending physician: Keli Carbajal MD Primary care physician: BOOGIE: Tony Consults: Infectious Disease: Dr Zapata Psych: Dr Anaya Time Spent in preparation of Discharge (in minutes): 33 Hospital Course - Lab Results Lab Results: Micro Results 12/15/17 05:53 Stool Ova and Parasite Concentrate Exam - Final 12/15/17 00:04 Blood Blood Culture - Preliminary NO GROWTH AFTER 4 DAYS 12/15/17 00:04 Blood Blood Culture - Preliminary NO GROWTH AFTER 4 DAYS 12/15/17 05:46 Stool Stool Culture - Final NO SALMONELLA, SHIGELLA OR CAMPYLOBACTER ISOLATED. Most Recent Lab Values WBC 8.0 K/uL (4.8-10.8) 12/19/17 07:47 RBC 3.62 Mil/uL (3.80-5.20) L 12/19/17 07:47 Hgb 10.6 g/dL (11.0-16.0) L 12/19/17 07:47 Hct 32.2 % (34.0-47.0) L 12/19/17 07:47 MCV 89.0 fL (81.0-99.0) 12/19/17 07:47 MCH 29.4 pg (27.0-31.0) 12/19/17 07:47 MCHC 33.1 g/dL (33.0-37.0) 12/19/17 07:47 RDW 17.8 % (11.5-14.5) H 12/19/17 07:47 Plt Count 363 K/uL (130-400) 12/19/17 07:47 MPV 8.0 fL (7.2-11.7) 12/19/17 07:47 Neut % (Auto) 34.0 % (50.0-75.0) L 12/19/17 07:47 Lymph % (Auto) 40.4 % (20.0-40.0) H 12/19/17 07:47 Morrill % (Auto) 21.5 % (0.0-10.0) H 12/19/17 07:47 Eos % (Auto) 3.8 % (0.0-4.0) 12/19/17 07:47 Baso % (Auto) 0.3 % (0.0-2.0) 12/19/17 07:47 Neut # (Auto) 2.7 K/uL (1.8-7.0) 12/19/17 07:47 Lymph # (Auto) 3.2 K/uL (1.0-4.3) 12/19/17 07:47 Morrill # (Auto) 1.7 K/uL (0.0-0.8) H 12/19/17 07:47 Eos # (Auto) 0.3 K/uL (0.0-0.7) 12/19/17 07:47 Baso # (Auto) 0.0 K/uL (0.0-0.2) 12/19/17 07:47 Neutrophils % (Manual) 36 % (50-75) L 12/19/17 07:47 Band Neutrophils % 1 % (0-2) 12/18/17 07:59 Lymphocytes % (Manual) 39 % (20-40) 12/19/17 07:47 Reactive Lymphs % 7 % (0-0) H 12/17/17 08:15 Monocytes % (Manual) 19 % (0-10) H 12/19/17 07:47 Eosinophils % (Manual) 6 % (0-4) H 12/19/17 07:47 Platelet Estimate Normal (NORMAL) 12/19/17 07:47 Large Platelets Present 12/16/17 07:11 Polychromasia Slight 12/17/17 08:15 Hypochromasia (manual) Slight 12/17/17 08:15 Poikilocytosis (manual Slight 12/17/17 08:15 Anisocytosis (manual) Slight 12/19/17 07:47 Ovalocytes Slight 12/19/17 07:47 PT 19.1 SECONDS (9.7-12.2) H 12/15/17 00:16 INR 1.7 12/15/17 00:16 APTT 31 SECONDS (21-34) 12/15/17 00:16 pO2 19 mm/Hg (30-55) L 12/15/17 00:44 VBG pH 7.41 (7.32-7.43) 12/15/17 00:44 VBG pCO2 43 mmHg (40-60) 12/15/17 00:44 VBG HCO3 24.8 mmol/L 12/15/17 00:44 VBG Total CO2 28.6 mmol/L (22-28) H 12/15/17 00:44 VBG O2 Sat (Calc) 25.5 % (40-65) L 12/15/17 00:44 VBG Base Excess 2.2 mmol/L (0.0-2.0) H 12/15/17 00:44 VBG Potassium 3.8 mmol/L (3.6-5.2) 12/15/17 00:44 Sodium 137.0 mmol/l (132-148) 12/15/17 00:44 Chloride 102.0 mmol/L (98-107) 12/15/17 00:44 Glucose 110 mg/dl (65-105) H 12/15/17 00:44 Lactate 1.9 mmol/L (0.7-2.1) 12/15/17 00:44 Sodium 136 mmol/L (132-148) 12/19/17 07:47 Potassium 4.4 mmol/L (3.6-5.2) 12/19/17 07:47 Chloride 103 mmol/L (98-107) 12/19/17 07:47 Carbon Dioxide 25 mmol/L (22-30) 12/19/17 07:47 Anion Gap 12 (10-20) 12/19/17 07:47 BUN 13 mg/dL (7-17) 12/19/17 07:47 Creatinine 0.8 mg/dL (0.7-1.2) 12/19/17 07:47 Est GFR ( Amer) > 60 12/19/17 07:47 Est GFR (Non-Af Amer) > 60 12/19/17 07:47 POC Glucose (mg/dL) 124 mg/dL (65-110) H 12/19/17 16:30 Random Glucose 82 mg/dL (65-105) 12/19/17 07:47 Calcium 7.8 mg/dl (8.6-10.4) L 12/19/17 07:47 Phosphorus 3.2 mg/dL (2.5-4.5) 12/19/17 07:47 Magnesium 1.6 mg/dL (1.6-2.3) 12/19/17 07:47 Total Bilirubin 0.2 mg/dL (0.2-1.3) 12/19/17 07:47 AST 17 U/L (14-36) 12/19/17 07:47 ALT 13 U/L (9-52) 12/19/17 07:47 Alkaline Phosphatase 129 U/L (38-126) H 12/19/17 07:47 Total Creatine Kinase 24 U/L (30-135) L 12/16/17 11:04 CK-MB (Mass) 0.55 ng/mL (0.0-3.38) 12/16/17 11:04 Troponin I < 0.0120 ng/mL (0.00-0.120) 12/16/17 11:04 Total Protein 4.7 g/dL (6.3-8.3) L 12/19/17 07:47 Albumin 1.9 g/dL (3.5-5.0) L 12/19/17 07:47 Globulin 2.8 gm/dL (2.2-3.9) 12/19/17 07:47 Albumin/Globulin Ratio 0.7 (1.0-2.1) L 12/19/17 07:47 Lipase 22 U/L (23-300) L 12/15/17 00:16 Venous Blood Potassium 3.8 mmol/L (3.6-5.2) 12/15/17 00:44 Urine Color Yellow (YELLOW) 12/15/17 14:27 Urine Clarity Hazy (Clear) 12/15/17 14:27 Urine pH 5.0 (5.0-8.0) 12/15/17 14:27 Ur Specific [place] 1.041 (1.003-1.030) H 12/15/17 14:27 Urine Protein Negative mg/dL (NEGATIVE) 12/15/17 14:27 Urine Glucose (UA) Normal mg/dL (Normal) 12/15/17 14:27 Urine Ketones Negative mg/dL (NEGATIVE) 12/15/17 14:27 Urine Blood Negative (NEGATIVE) 12/15/17 14:27 Urine Nitrate Negative (NEGATIVE) 12/15/17 14:27 Urine Bilirubin Negative (NEGATIVE) 12/15/17 14:27 Urine Urobilinogen Normal mg/dL (0.2-1.0) 12/15/17 14:27 Ur Leukocyte Esterase 1+ Willi/uL (Negative) H 12/15/17 14:27 Urine WBC (Auto) 10 /hpf (0-5) H 12/15/17 14:27 Urine RBC (Auto) 1 /hpf (0-3) 12/15/17 14:27 Ur Squamous Epith Cells 2 /hpf (0-5) 12/15/17 14:27 Urine Bacteria Rare (<OCC) 12/15/17 14:27 Stool Leukocytes, Qual Positive (NEGATIVE) H 12/15/17 05:48 C. difficile Ag & Toxin Positive (NEGATIVE) H 12/15/17 00:04 - Hospital Course Hospital Course: CC: "diarrhea" HPI: 77 year old female with past medical history of C.Diff (11/06); ischemic bowel resection, B/L PE (10/2017), HTN, Afib; PE; HLD, DM, CAD, CABG, Hx of Breast Cancer (s/p lumpectomy) and Hypothyroidism who presents to the ER for diarrhea. Patient states she has been having diarrhea for about 5 days with no improvement. She states the stool is watery and she has about 8 episodes of diarrhea per day. She states she saw Dr. Jimenez a week ago who gave her Loperamide but as soon as she stopped she continued to have diarrhea. She states she has been having chills and subjective fever. She states she has been having diffuse lower abdominal pain about an 8/10. She states she has not had much of an appetite and has lost about 30lbs since her surgery in October. She denies chest pain, shortness of breath, nausea or vomiting. PMD: Tony Past Medical History: C.Diff (11/06); ischemic bowel resection, B/L PE (10/2017), HTN, Afib; PE; HLD, DM, CAD, CABG, Hx of Breast Cancer (s/p lumpectomy) and Hypothyroidism Past Surgical History: ischemic bowel resection (10/08/17), Pacemaker (placed on the right due to Hx Breast Cancer) Family History: Strong Cardiac history, most family member of cardiac complications Medications: Apixaban [Eliquis] 5 mg PO BID; diltiaZEM [Cardizem] 60 mg PO Q6H; Levothyroxine 50 mcg PO DAILY; Losartan 100 mg PO DAILY; Metformin 500 mg PO BID ; Mirtazapine 15 mg PO HS; Rosuvastatin Calcium [Crestor] 5 mg NG HS Allergies: NKDA Social History: Denies alcohol, smoking and illicit drug use HOSPITAL COURSE: 77 year old female with PMHx of C. diff, ischemic bowel resection, B/L PE, HTN, Afib, HLD, DM, CAD, CABG, Breast CA with lumpectomy, and hypothyroidism presented to ER with complaint of profuse watery diarrhea. Patient was here recently for c.diff however patient did not take vancoymycin upon discharge as advised because she stated the cost was too high. Thus she returned with c.diff. Dr. Zapata from infectious disease was consulted. Stool cultures were positive for C. diff. CT of abdomen/pelvis showed stool related colitis. Patient was started on oral vancomycin 125mg Q6hr. Dr. Zapata advised patient remain on vancomycin as an outpatient but stated if patient could not afford oral vancomycin she could be switched to oral flagyl. While in hospital, patient was given one dose of klonopin .5mg for anxiety and was seen by Dr. Anaya from psychiatry for mild anxiety, depressed mood and difficulty sleeping. He prescribed hydroxyzine 25mg PO Q6hr PRN as well as remeron 15mg PO HS Scheduled. Patient's chronic conditions were treated with Eliquis 5mg PO BID, Diltiazem 60mg PO Q6hr, Novolin R, Syntrhoid 50 mcg PO daily, Cozaar 100mg PO daily, crestor 5mg PO HS daily. Upon discharge patient's diarrhea had vastly improved although still mildly present. She denied abdominal pain, fever, or any other complaints. Patient was told of the preference to vancomycin for her continued treatment but that flagyl was an acceptable substitute if patient could not afford oral vancomycin. Please see most recent progress note for complete hospital management. 1.) Diarrhea Infectious Disease consult, Dr Zapata c.diff positive f/u ova and parasite Stool leukocytes f/u stool culture Imaging: CT Abdomen/Pelvis: There is moderate amount of stool in the colon with colonic wall thickening. Correlation with clinical data is recommended if nonspecific versus stool related colitis as clinically suspected. There is left lower lobe pleural-based pulmonary nodule measuring 1.2 cm likely representing residue of nodular consolidation. Meds: * Vancomycin 125 mg PO Q6H f * Florastor 250mg PO QD * Per Dr Zapata, patient should be on Dificid however cost is too high and pharmacy did not approve, it might be best for patient to go to another hospital where she can get dificid Patient will stay until we can control her diarrhea. While inpatient, she can be treated with oral vancomycin and upon discharge can be sent with oral Flagyl. Patient is unable to afford oral vancomycin in the outpatient setting because her insurance. 2.) Thrombocytosis possibly secondary to infection Resolved and will continue to monitor 3.) History of Bowel Ischemia (10/08/17: Exploratory laparotomy, small bowel resection and primary anastomosis) Stable Continue to monitor 4.) History of Chest Pain, LBBB, CAD, CABG, Pacemaker, Aortic Stenosis, New Onset A-fib * Eiliquis 5.0 mg PO 2x/day * Cardizem 60 mg PO Q6H * Cozaar 100 mg PO 1x/day * Crestor 5 mg PO 1x/day * Nitro SL prn EKG performed today shows no acute ST segment changes with heart rate 68 bpm JOANNA panel performed today was negative 5.) History of Bilateral PE * Eliquis 5 mg PO 2x/day 6.) History of Melena/BRBPR EGD 10/18/17: esophageal ulcer 7 mm nonbleeding, duodenum with superficial ulceration, adherent blood clot in jejunum 7.) History of Breast CA/Lumpectomy stable No acute intervention 8.) History of HTN * Cozaar 100 mg PO 1x/day * Cardizem 60 mg PO Q6H Can add Metoprolol Succinate 25 mg PO 1x/day IF there are any issues of uncontrolled blood pressure/heart rate as the patient was on this in the past 9.) History of HLD * Crestor 5 mg PO 1x/day 10.) History of DM Type II Accucheck Hypoglycemia Protocol ISS 11.) History of Hypothyroidism * Levothyroxine 50 mcg PO 1x/day 12.) Anxiety One dose of Klonopin 0.5 mg given for anxiety Psychiatry consult, Dr. Anaya, help appreciated 13.) Hypomagnesemia Replenished with mag sulfate x 2 bags today Start Mag oxide 400 mg PO BID 14.) Prophylaxis - Mirtazapine 15 mg PO HS for sleep - Protonix 40 mg PO 1x/day - Ensure 3x/day - PT eval and treat Disposition: Will need to speak with Crm Architect/Generation Manager on Tuesday to obtain Vancomycin (as she could not afford it) to complete treatment at home and discharge for follow up with her PMD Dr. Jimenez. Otherwise will need to be discharged with Flagyl. Discharge Exam - Head Exam Head Exam: NORMOCEPHALIC - Additional Findings Additional findings: - Constitutional Appears: No Acute Distress, Cachectic - Head Exam Head Exam: ATRAUMATIC, NORMAL INSPECTION - Eye Exam Eye Exam: EOMI, Normal appearance - ENT Exam ENT Exam: Mucous Membranes Dry - Respiratory Exam Respiratory Exam: Clear to Auscultation Bilateral, NORMAL BREATHING PATTERN. absent: Rales, Rhonchi, Wheezes, Stridor - Cardiovascular Exam Cardiovascular Exam: REGULAR RHYTHM, RRR, +S1, +S2 - GI/Abdominal Exam GI & Abdominal Exam: Normal Bowel Sounds, Soft. absent: Firm, Guarding, Tenderness - Extremities Exam Extremities exam: Positive for: normal inspection - Neurological Exam Neurological exam: Alert, Oriented x3 - Psychiatric Exam Psychiatric exam: Anxious, Depressed - Skin Skin Exam: Dry, Intact, Normal Color Discharge Plan - Discharge Medications Prescriptions: Metronidazole [Flagyl] 500 mg PO Q8H 10 Days #30 tablet - Follow Up Plan Condition: FAIR Disposition: HOME/ ROUTINE Instructions: Metronidazole (Systemic), Acute Abdomen (Belly Pain), Clostridium difficile (DC), Ulcerative Colitis (DC), Ulcerative Colitis (GEN) Additional Instructions: Patient is medically stable for discharge. Patient should ideally be on vancomycin however due to cost reasons patient should take the following antibiotic (which was electronically sent over to her pharmacy at [facility] at [address] [place] [address]): 1. Flagyl 500mg take 1 tablet every 8 hours for 10 days Please continue all your normal home medications, this includes: 1. Metformin 500mg PO BID 2. Cardizem 60mg PO every 6 hours 3. Crestor 5mg PO HS 4. Mirtazapine 15mg PO HS PRN for insomnia 5. Losartan 100mg PO QD 6. Synthroid 50mcg PO QD at 0630 7. Eliquis 5mg PO BID 8. Duoneb 3ml INH RQ6 PNR for shortness of breath Please go see Infectious Disease Dr Zapata in [address] Zapata: [address] [place] [address] Please go see your PMD, Dr Jimenez, in 1 week. If symptoms return please go to your nearest emergency department. Referrals: Pola Zapata MD [Staff Provider] - Luis Jimenez MD [Staff Provider] - <Shmuel Ellis - Last Filed: 12/20/17 09:22> Provider - Provider Date of Admission: 12/15/17 03:40 Attending physician: Keli Carbajal MD Hospital Course - Lab Results Lab Results: Micro Results 12/15/17 00:04 Blood Blood Culture - Final NO GROWTH AFTER 5 DAYS 12/15/17 00:04 Blood Gram Stain - Final TEST NOT PERFORMED 12/15/17 00:04 Blood Blood Culture - Final NO GROWTH AFTER 5 DAYS 12/15/17 00:04 Blood Gram Stain - Final TEST NOT PERFORMED 12/15/17 05:53 Stool Ova and Parasite Concentrate Exam - Final 12/15/17 05:46 Stool Stool Culture - Final NO SALMONELLA, SHIGELLA OR CAMPYLOBACTER ISOLATED. Most Recent Lab Values WBC 8.0 K/uL (4.8-10.8) 12/19/17 07:47 RBC 3.62 Mil/uL (3.80-5.20) L 12/19/17 07:47 Hgb 10.6 g/dL (11.0-16.0) L 12/19/17 07:47 Hct 32.2 % (34.0-47.0) L 12/19/17 07:47 MCV 89.0 fL (81.0-99.0) 12/19/17 07:47 MCH 29.4 pg (27.0-31.0) 12/19/17 07:47 MCHC 33.1 g/dL (33.0-37.0) 12/19/17 07:47 RDW 17.8 % (11.5-14.5) H 12/19/17 07:47 Plt Count 363 K/uL (130-400) 12/19/17 07:47 MPV 8.0 fL (7.2-11.7) 12/19/17 07:47 Neut % (Auto) 34.0 % (50.0-75.0) L 12/19/17 07:47 Lymph % (Auto) 40.4 % (20.0-40.0) H 12/19/17 07:47 [place] % (Auto) 21.5 % (0.0-10.0) H 12/19/17 07:47 Eos % (Auto) 3.8 % (0.0-4.0) 12/19/17 07:47 Baso % (Auto) 0.3 % (0.0-2.0) 12/19/17 07:47 Neut # (Auto) 2.7 K/uL (1.8-7.0) 12/19/17 07:47 Lymph # (Auto) 3.2 K/uL (1.0-4.3) 12/19/17 07:47 [place] # (Auto) 1.7 K/uL (0.0-0.8) H 12/19/17 07:47 Eos # (Auto) 0.3 K/uL (0.0-0.7) 12/19/17 07:47 Baso # (Auto) 0.0 K/uL (0.0-0.2) 12/19/17 07:47 Neutrophils % (Manual) 36 % (50-75) L 12/19/17 07:47 Band Neutrophils % 1 % (0-2) 12/18/17 07:59 Lymphocytes % (Manual) 39 % (20-40) 12/19/17 07:47 Reactive Lymphs % 7 % (0-0) H 12/17/17 08:15 Monocytes % (Manual) 19 % (0-10) H 12/19/17 07:47 Eosinophils % (Manual) 6 % (0-4) H 12/19/17 07:47 Platelet Estimate Normal (NORMAL) 12/19/17 07:47 Large Platelets Present 12/16/17 07:11 Polychromasia Slight 12/17/17 08:15 Hypochromasia (manual) Slight 12/17/17 08:15 Poikilocytosis (manual Slight 12/17/17 08:15 Anisocytosis (manual) Slight 12/19/17 07:47 Ovalocytes Slight 12/19/17 07:47 PT 19.1 SECONDS (9.7-12.2) H 12/15/17 00:16 INR 1.7 12/15/17 00:16 APTT 31 SECONDS (21-34) 12/15/17 00:16 pO2 19 mm/Hg (30-55) L 12/15/17 00:44 VBG pH 7.41 (7.32-7.43) 12/15/17 00:44 VBG pCO2 43 mmHg (40-60) 12/15/17 00:44 VBG HCO3 24.8 mmol/L 12/15/17 00:44 VBG Total CO2 28.6 mmol/L (22-28) H 12/15/17 00:44 VBG O2 Sat (Calc) 25.5 % (40-65) L 12/15/17 00:44 VBG Base Excess 2.2 mmol/L (0.0-2.0) H 12/15/17 00:44 VBG Potassium 3.8 mmol/L (3.6-5.2) 12/15/17 00:44 Sodium 137.0 mmol/l (132-148) 12/15/17 00:44 Chloride 102.0 mmol/L (98-107) 12/15/17 00:44 Glucose 110 mg/dl (65-105) H 12/15/17 00:44 Lactate 1.9 mmol/L (0.7-2.1) 12/15/17 00:44 Sodium 136 mmol/L (132-148) 12/19/17 07:47 Potassium 4.4 mmol/L (3.6-5.2) 12/19/17 07:47 Chloride 103 mmol/L (98-107) 12/19/17 07:47 Carbon Dioxide 25 mmol/L (22-30) 12/19/17 07:47 Anion Gap 12 (10-20) 12/19/17 07:47 BUN 13 mg/dL (7-17) 12/19/17 07:47 Creatinine 0.8 mg/dL (0.7-1.2) 12/19/17 07:47 Est GFR ( Amer) > 60 12/19/17 07:47 Est GFR (Non-Af Amer) > 60 12/19/17 07:47 POC Glucose (mg/dL) 124 mg/dL (65-110) H 12/19/17 16:30 Random Glucose 82 mg/dL (65-105) 12/19/17 07:47 Calcium 7.8 mg/dl (8.6-10.4) L 12/19/17 07:47 Phosphorus 3.2 mg/dL (2.5-4.5) 12/19/17 07:47 Magnesium 1.6 mg/dL (1.6-2.3) 12/19/17 07:47 Total Bilirubin 0.2 mg/dL (0.2-1.3) 12/19/17 07:47 AST 17 U/L (14-36) 12/19/17 07:47 ALT 13 U/L (9-52) 12/19/17 07:47 Alkaline Phosphatase 129 U/L (38-126) H 12/19/17 07:47 Total Creatine Kinase 24 U/L (30-135) L 12/16/17 11:04 CK-MB (Mass) 0.55 ng/mL (0.0-3.38) 12/16/17 11:04 Troponin I < 0.0120 ng/mL (0.00-0.120) 12/16/17 11:04 Total Protein 4.7 g/dL (6.3-8.3) L 12/19/17 07:47 Albumin 1.9 g/dL (3.5-5.0) L 12/19/17 07:47 Globulin 2.8 gm/dL (2.2-3.9) 12/19/17 07:47 Albumin/Globulin Ratio 0.7 (1.0-2.1) L 12/19/17 07:47 Lipase 22 U/L (23-300) L 12/15/17 00:16 Venous Blood Potassium 3.8 mmol/L (3.6-5.2) 12/15/17 00:44 Urine Color Yellow (YELLOW) 12/15/17 14:27 Urine Clarity Hazy (Clear) 12/15/17 14:27 Urine pH 5.0 (5.0-8.0) 12/15/17 14:27 Ur Specific [place] 1.041 (1.003-1.030) H 12/15/17 14:27 Urine Protein Negative mg/dL (NEGATIVE) 12/15/17 14:27 Urine Glucose (UA) Normal mg/dL (Normal) 12/15/17 14:27 Urine Ketones Negative mg/dL (NEGATIVE) 12/15/17 14:27 Urine Blood Negative (NEGATIVE) 12/15/17 14:27 Urine Nitrate Negative (NEGATIVE) 12/15/17 14:27 Urine Bilirubin Negative (NEGATIVE) 12/15/17 14:27 Urine Urobilinogen Normal mg/dL (0.2-1.0) 12/15/17 14:27 Ur Leukocyte Esterase 1+ Willi/uL (Negative) H 12/15/17 14:27 Urine WBC (Auto) 10 /hpf (0-5) H 12/15/17 14:27 Urine RBC (Auto) 1 /hpf (0-3) 12/15/17 14:27 Ur Squamous Epith Cells 2 /hpf (0-5) 12/15/17 14:27 Urine Bacteria Rare (<OCC) 12/15/17 14:27 Stool Leukocytes, Qual Positive (NEGATIVE) H 12/15/17 05:48 C. difficile Ag & Toxin Positive (NEGATIVE) H 12/15/17 00:04 Attending/Attestation - Attestation I have personally seen and examined this patient.: Yes I have fully participated in the care of the patient.: Yes I have reviewed all pertinent clinical information, including history, physical exam and plan: Yes Notes (Text): 12/20/17 09:17 Medical attending: Patient was seen and examined by me as well. Agree with the above note by the resident The patient explained that her BMs were much more formed now and not loose. She is taking food by mouth - however poor appetite. She has been drinking enough fluid she says. As mentioned previously she was not able to fill the PO medications before and was advised to come to the hospital. While here she has been treated for C diff. She will need to take PO flagyl and follow up with her ID physician as well as with her PMD. We advised her she needs to be very careful when trying to ambulate or move around as she may still have some dizziness when standing quickly or moving around. thank you Shmuel Ellis
== END 2017-12-19 18:27 | disposition home or self-care (01) | DRG 373 ==
LOC: C.ER 23:36 → C.5S 12-15 03:40 → C.6T 12-16 13:22
PROVIDERS: ADMIT Internal Medicine; ATTEND Internal Medicine
DX: A04.72 Enterocolitis due to Clostridium difficile, not specified as recurrent (principal); I10 Essential (primary) hypertension; E11.9 Type 2 diabetes mellitus without complications; E83.42 Hypomagnesemia; D47.3 Essential (hemorrhagic) thrombocythemia; E03.9 Hypothyroidism, unspecified; I25.10 Atherosclerotic heart disease of native coronary artery without angina pectoris; F32.9 Major depressive disorder, single episode, unspecified; F41.9 Anxiety disorder, unspecified; I35.0 Nonrheumatic aortic (valve) stenosis; I48.91 Unspecified atrial fibrillation; J44.9 Chronic obstructive pulmonary disease, unspecified; E78.5 Hyperlipidemia, unspecified; E78.00 Pure hypercholesterolemia, unspecified; Z79.01 Long term (current) use of anticoagulants; Z85.3 Personal history of malignant neoplasm of breast; Z86.711 Personal history of pulmonary embolism; Z86.718 Personal history of other venous thrombosis and embolism; Z87.891 Personal history of nicotine dependence; Z95.0 Presence of cardiac pacemaker; Z95.1 Presence of aortocoronary bypass graft; Z95.5 Presence of coronary angioplasty implant and graft; Z86.19 Personal history of other infectious and parasitic diseases

== ENCOUNTER 2018-03-23 13:50 | Emergency (ER) | payer MEDICARE, OTHER ==
[2018-03-23 13:51] VITALS: PULSE 126; BMI 26.1
[2018-03-23 14:03] VITALS: O2SAT 98
[2018-03-23] MEDS ORDERED: Iohexol 240 (50 ml) PO STA (15:10)
[2018-03-23 15:33] LABS: BASO % 0.6 % (0.0-2.0); EOS # 0.2 K/uL (0.0-0.7); EOS % 3.3 % (0.0-4.0); HEMOGLOBIN 10.5 g/dL (11.0-16.0); LYMPH # 2.9 K/uL (1.0-4.3); MEAN CELL VOLUME 84.8 fL (81.0-99.0); MEAN CORPUSCULAR HGB CONC 34.2 g/dL (33.0-37.0); MONO # 0.9 K/uL (0.0-0.8); MONO % 12.4 % (0.0-10.0); NEUT % 42.7 % (50.0-75.0); NRBC % 0.1 % (0.0-2.0); RBC 3.63 Mil/uL (3.80-5.20); RED CELL DISTRIBUTION WIDTH 15.5 % (11.5-14.5); WHITE BLOOD COUNT 7.1 K/uL (4.8-10.8)
--- NOTE | 2018-03-23 15:38 | C.PDOC ---
History Of Present Illness 77 y/o female with history of DM, htn.cad, s/p cabg, s/p pacemaker, s/p abdominal surgery in sep for ischemic bowel, presents to ED with c/o intermittent right sided abdominal pain that radiates towards her back for 3 days. Patient states pain is sharp and constant, with no associated nausea, vomiting, diarrhea, chills, fever, urinary symptoms or change in appetite. reports last took Tylenol 2 pm today with no improvement. per RN, pt reported she has had this pain intermittently since her abdominal surgery in sep 2017. pt sts pmd prescribed salonpas roll-on medication for this pain. on further questioning, pt sts pain flared in right lower back after sitting waiting in a doctors office on Tuesday for 2+ hours. . Time Seen by Provider: 03/23/18 14:24 Chief Complaint (Nursing): Abdominal Pain History Per: Patient History/Exam Limitations: no limitations Onset/Duration Of Symptoms: Days Current Symptoms Are (Timing): Still Present Location Of Pain/Discomfort: Diffuse Radiation Of Pain To:: Back Past Medical History Reviewed: Historical Data, Nursing Documentation, Vital Signs Vital Signs: Last Vital Signs Temp 98.2 F 03/23/18 14:00 Pulse 70 03/23/18 14:00 Resp 16 03/23/18 14:00 BP 181/72 H 03/23/18 15:30 Pulse Ox 98 03/23/18 18:14 - Medical History PMH: Anxiety, Arthritis (KNEE PAIN), Cardia Arrhythmia, COPD, Depression, Diabetes, HTN, Hypercholesterolemia, Hypothyroidism Surgical History: CABG (jan 17 2013 TRIPLE), Coronary Stent, Pacemaker, Tonsillectomy - [facility] Procedures BREAST DX PROCEDURE NEC (04/18/14) DX ULTRASOUND-THORAX NEC (04/18/14) EXCISION OF DUODENUM, ENDO, DIAGN (10/06/17) FLUOROSCOPY OF LEFT HEART USING LOW OSMOLAR CONTRAST (10/06/17) FLUOROSCOPY OF MULT COR ART USING L OSM CONTRAST (10/06/17) FLUOROSCOPY OF SING COR A GRAFT USING L OSM CONTRAST (10/06/17) INITIAL INSERT TRANS LEADS INTO ATRIUM & VENTRICLE (12/20/13) INITIAL INSERTION OF DUAL-CHAMBER DEVICE (12/20/13) INSERTION OF ENDOTRACHEAL AIRWAY INTO TRACHEA, VIA OPENING (10/06/17) INSERTION OF INFUSION DEV INTO SUP VENA CAVA, PERC APPROACH (10/06/17) LOCAL EXCIS BREAST LES (04/18/14) LYMPHATIC STRUCT BIOPSY (05/14/14) LYMPHATIC SYSTEM SCAN (05/14/14) MEASURE OF CARDIAC SAMPL & PRESSURE, L HEART, PERC APPROACH (10/06/17) PERCUTAN NEEDLE BIOPSY OF BREAST (02/05/14) RESECTION OF SMALL INTESTINE, OPEN APPROACH (10/06/17) RESPIRATORY VENTILATION, GREATER THAN 96 CONSECUTIVE HOURS (10/06/17) TRANSFUSE NONAUT RED BLOOD CELLS IN PERIPH VEIN, PERC (10/06/17) X-RAY NEC AND NOS (02/05/14) Family History: States: No Known Family Hx - Social History Hx Tobacco Use: Yes (quit 6 years ago) Hx Alcohol Use: No Hx Substance Use: No - Immunization History Hx Tetanus Toxoid Vaccination: No Hx Influenza Vaccination: No Hx Pneumococcal Vaccination: No Review Of Systems Constitutional: Negative for: Fever, Chills Gastrointestinal: Positive for: Abdominal Pain. Negative for: Nausea, Vomiting , Diarrhea Genitourinary: Negative for: Dysuria Musculoskeletal: Positive for: Back Pain Skin: Negative for: Rash Neurological: Negative for: Weakness, Numbness Physical Exam - Physical Exam Appears: Non-toxic, Other Skin: Warm, Dry, No Rash Head: Atraumatic, Normacephalic Eye(s): bilateral: Normal Inspection Oral Mucosa: Moist Neck: Normal ROM, No Midline Cervical Tenderness, Supple Chest: No Deformity, No Tenderness, Other (pacemaker right upper chest wall) Cardiovascular: Rhythm Regular Respiratory: Normal Breath Sounds, No Rales, No Rhonchi, No Wheezing Gastrointestinal/Abdominal: Bowel Sounds, Soft, No Tenderness, No Distention, No Guarding, No Rebound, Other (vertical surgical scar well healed) Back: Normal Inspection, No CVA Tenderness, No Vertebral Tenderness, No Paraspinal Tenderness, Other (right hip tenderness. right paravertebral tenderness in lumbar area with spasm) Extremity: Normal ROM, No Pedal Edema, No Calf Tenderness Pulses: Left Dorsalis Pedis: Normal, Right Dorsalis Pedis: Normal Neurological/Psych: Oriented x3, Normal Speech, Normal Cognition, Normal Motor, Normal Sensation ED Course And Treatment - Laboratory Results Result Diagrams: 03/23/18 15:26 03/23/18 15:26 O2 Sat by Pulse Oximetry: 98 (RA) Pulse Ox Interpretation: Normal - CT Scan/US abdomen Other Rad Studies (CT/US): Radiology Report Reviewed CT/US Interpretation: IMPRESSION: No acute abdominal pelvic pathology. Stable multiple hepatic cysts including giant right hepatic lobe cyst measuring up to 18.0 cm. Medical Decision Making Medical Decision Making: pt with back /ab pain x 4 days; ab soft, nd,. nt. + right para lumbar back tenderness. ct ab neg for acute findings, with stable hepatic cysts. labs wnl. pt on eliquis; treatment options for muscle spasm/back pain discussed; nsaid not recommended because on eliquis. muscle relaxant not recommended for its sedating effects given pt on eliquis. will continue on tylenol and lidoderm patch, and warm compress. pt understands plan. Disposition Counseled Patient/Family Regarding: Studies Performed, Diagnosis, Need For Followup, Rx Given - Disposition Referrals: Luis Jimenez MD [Staff Provider] - Ryan Fry [ED Scribe] - Adilson Vargas MD [Staff Provider] - Disposition: HOME/ ROUTINE Disposition Time: 18:21 Condition: GOOD Additional Instructions: Please remove lidoderm patch after 12 hours. May use over the counter lidocaine patches, or salon paramiro hot. Take Tylenol 650 mg by mouth every 6 hours. Use warm compresses in painful area. Avoid prolonged sitting. If pain persists , follow up with pain management doctors- either Dr Fry or Dr Dover. Also follow up with Dr Jimenez. 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 - Scribe Statement The provider has reviewed the documentation as recorded by the Yusraibliban Medrano All medical record entries made by the Gino were at my direction and personally dictated by me. I have reviewed the chart and agree that the record accurately reflects my personal performance of the history, physical exam, medical decision making, and the department course for this patient. I have also personally directed, reviewed, and agree with the discharge instructions and disposition.
[2018-03-23 15:52] LABS: ALB/GLOB RATIO 1.1 (1.0-2.1); ALBUMIN 3.6 g/dL (3.5-5.0); ALT/SGPT 29 U/L (9-52); AST/SGOT 27 U/L (14-36); BLOOD UREA NITROGEN 13 mg/dL (7-17); CALCIUM 9.6 mg/dl (8.6-10.4); GFR AFRICAN-AMERICAN > 60; GFR NON-AFRICAN AMERICAN > 60; LIPASE 91 U/L (23-300)
[2018-03-23 16:16] LABS: SQUAMOUS EPITHIAL 2 /hpf (0-5); URINE BILIRUBIN NEGATIVE (NEGATIVE); URINE BLOOD NEGATIVE (NEGATIVE); URINE CLARITY Clear (Clear); URINE COLOR Yellow (YELLOW); URINE GLUCOSE (UA) NORMAL (Normal); URINE LEUKOCYTE ESTERASE TRACE Leu/uL (Negative); URINE PROTEIN NEGATIVE (NEGATIVE); URINE UROBILINOGEN NORMAL mg/dL (0.2-1.0)
[2018-03-23] MEDS ORDERED: Iohexol 300 100 ML IJ ONE (16:55)
--- NOTE | 2018-03-23 17:56 | CT ---
PROCEDURE: CT Abdomen and Pelvis with contrast HISTORY: abd pain COMPARISON: CT scan of the abdomen and pelvis dated 12/15/2017 TECHNIQUE: Contrast dose: 100 mL Omnipaque 300 Radiation dose: Total exam DLP = 392.8 mGy-cm. This CT exam was performed using one or more of the following dose reduction techniques: Automated exposure control, adjustment of the mA and/or kV according to patient size, and/or use of iterative reconstruction technique. FINDINGS: LOWER THORAX: Right upper lobe calcified granuloma. Partially imaged implanted cardiac device leads lingula atelectasis/scarring. No focal consolidation or pleural effusion. LIVER: Multiple large hepatic cysts, including 18.0 x 13.2 x 17.3 cm giant cyst in the right hepatic lobe and 5.3 x 4.7 x 6.3 cm cyst in the left hepatic lobe. No gross lesion or ductal dilatation. GALLBLADDER AND BILE DUCTS: Unremarkable. PANCREAS: Unremarkable. No gross lesion or ductal dilatation. SPLEEN: Unremarkable. ADRENALS: Unremarkable. No mass. KIDNEYS AND URETERS: Unremarkable. No hydronephrosis. No solid mass. VASCULATURE: Calcific atherosclerosis. Chronic aortic ectasia versus mild fusiform aneurysmal dilatation with chronically calcified pleural thrombus. BOWEL: Unremarkable. No obstruction. No gross mural thickening. APPENDIX: Normal appendix. PERITONEUM: Unremarkable. No free fluid. No free air. LYMPH NODES: Unremarkable. No enlarged lymph nodes. BLADDER: Unremarkable. REPRODUCTIVE: Unremarkable. BONES: No acute fracture. OTHER FINDINGS: None. IMPRESSION: No acute abdominal pelvic pathology. Stable multiple hepatic cysts including giant right hepatic lobe cyst measuring up to 18.0 cm.
[2018-03-23] MEDS ORDERED: Lidocaine 5% Patch TD STA (18:10)
[2018-03-23 18:21] VITALS: BP 179/94; PULSE 68; RESP 18; TEMP 97.9
[2018-03-23] MEDS ORDERED: Lidocaine 5% Patch TD ONE (18:32)
== END 2018-03-23 19:09 | disposition home or self-care (01) ==
LOC: C.ER 13:50
DX: M62.830 Muscle spasm of back (principal); I25.10 Atherosclerotic heart disease of native coronary artery without angina pectoris; I10 Essential (primary) hypertension; E11.9 Type 2 diabetes mellitus without complications; Z95.0 Presence of cardiac pacemaker; Z95.1 Presence of aortocoronary bypass graft; Z87.891 Personal history of nicotine dependence
CPT/HCPCS: 74177; 80053; 81001; 83690; 85025; 87086; 96374; 99285; J2270; Q9966; Q9967

== ENCOUNTER 2018-10-15 18:06 | Inpatient (IN) | payer MEDICARE, OTHER ==
[2018-10-15 18:07] VITALS: PULSE 126
[2018-10-15 18:20] VITALS: BMI 21.5
--- NOTE | 2018-10-15 18:39 | C.PDOC ---
History Of Present Illness 78 y/o female with history of DM, Afib on , HTN, and CAD s/p CABG presents s/p fall on Tuesday. She states that she was walking and tripped on uneven pavement. She states that she fell forward and landed on her left wrist and right knee. She admits to knee pain, rating it 9/10 but only to touch otherwise 5/10. She also has difficulty ambulating by bending knee. She denies hitting her head and LOC. She denies any recent tetanus, fever, chills, headache, dizziness, chest pain, N/V, and SOB. She contacted her pcp Dr. Jimenez and was referred to ED for further evaluation. Time Seen by Provider: 10/15/18 18:22 Chief Complaint (Nursing): Lower Extremity Problem/Injury History Per: Patient History/Exam Limitations: no limitations Onset/Duration Of Symptoms: Gradual Current Symptoms Are (Timing): Still Present Severity: Severe Pain Scale Rating Of: 9 (only with palpation and movement) Recent travel outside of the [place]: No - Knee Description Of Injury: Fell Currently Unable To: Bear Weight, Bend Or Move Alleviating Factor(s): Ice Therapy, Elevation Past Medical History Reviewed: Historical Data, Nursing Documentation, Vital Signs Vital Signs: Last Vital Signs Temp 98.2 F 10/15/18 18:16 Pulse 75 10/15/18 18:16 Resp 18 10/15/18 18:16 BP 127/56 L 10/15/18 18:16 Pulse Ox 99 10/15/18 18:16 - Medical History PMH: Anxiety, Arthritis (KNEE PAIN), Cardia Arrhythmia, COPD, Depression, Diabetes, HTN, Hypercholesterolemia, Hypothyroidism Denies: Chronic Kidney Disease Surgical History: CABG (jan 17 2013 TRIPLE), Coronary Stent, Pacemaker, Tonsillectomy - [facility] Procedures BREAST DX PROCEDURE NEC (04/18/14) DX ULTRASOUND-THORAX NEC (04/18/14) EXCISION OF DUODENUM, ENDO, DIAGN (10/06/17) FLUOROSCOPY OF LEFT HEART USING LOW OSMOLAR CONTRAST (10/06/17) FLUOROSCOPY OF MULT COR ART USING L OSM CONTRAST (10/06/17) FLUOROSCOPY OF SING COR A GRAFT USING L OSM CONTRAST (10/06/17) INITIAL INSERT TRANS LEADS INTO ATRIUM & VENTRICLE (12/20/13) INITIAL INSERTION OF DUAL-CHAMBER DEVICE (12/20/13) INSERTION OF ENDOTRACHEAL AIRWAY INTO TRACHEA, VIA OPENING (10/06/17) INSERTION OF INFUSION DEV INTO SUP VENA CAVA, PERC APPROACH (10/06/17) LOCAL EXCIS BREAST LES (04/18/14) LYMPHATIC STRUCT BIOPSY (05/14/14) LYMPHATIC SYSTEM SCAN (05/14/14) MEASURE OF CARDIAC SAMPL & PRESSURE, L HEART, PERC APPROACH (10/06/17) PERCUTAN NEEDLE BIOPSY OF BREAST (02/05/14) RESECTION OF SMALL INTESTINE, OPEN APPROACH (10/06/17) RESPIRATORY VENTILATION, GREATER THAN 96 CONSECUTIVE HOURS (10/06/17) TRANSFUSE NONAUT RED BLOOD CELLS IN PERIPH VEIN, PERC (10/06/17) X-RAY NEC AND NOS (02/05/14) Family History: States: Unknown Family Hx - Social History Hx Tobacco Use: Yes (quit 6 years ago) Hx Alcohol Use: No Hx Substance Use: No - Immunization History Hx Tetanus Toxoid Vaccination: No Hx Influenza Vaccination: No Hx Pneumococcal Vaccination: No Review Of Systems Constitutional: Negative for: Fever, Chills, Sweats Cardiovascular: Negative for: Chest Pain Respiratory: Negative for: Cough, Shortness of Breath Gastrointestinal: Negative for: Nausea, Vomiting, Abdominal Pain Musculoskeletal: Positive for: Other (right knee pain) Skin: Positive for: Bruising (right knee and left wrist) Neurological: Negative for: Confusion, Headache Physical Exam - Physical Exam Appears: Well, Non-toxic, No Acute Distress Skin: Normal Color, Warm, Dry, Ecchymosis (right knee and left wrist) Head: Atraumatic, Normacephalic, No Tenderness Neck: Normal ROM, Supple Cardiovascular: Rhythm Regular Respiratory: Normal Breath Sounds, No Accessory Muscle Use Gastrointestinal/Abdominal: Bowel Sounds, Soft, No Tenderness Back: No CVA Tenderness Extremity: Normal ROM Extremity: Right: Limited ROM To Joint (knee), Painful To Bear Weight (knee), Unable To Bear Weight (knee), Other (right knee is warm, erythematous, ecchymos is, small scab formation), Bilateral: Normal ROM (bilateral wrists and left knee) Pulses: Left Dorsalis Pedis: Normal, Right Dorsalis Pedis: Normal Neurological/Psych: Oriented x3, Normal Speech, Normal Cognition, Normal Sensation ED Course And Treatment - Laboratory Results Result Diagrams: 10/15/18 19:02 10/15/18 19:02 O2 Sat by Pulse Oximetry: 99 Progress Note: 6:30pm- Patient examed; suspicious for cellulitis; labs and im aging ordered; will likely be admitted; hospitalist team notified- Dr. Bertin Hastings. 7:25pm: Handoff to Dr. Hernandez, who will continue to follow patients labs and admission. 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 Decision To Admit - Pt Status Changed To: Hospital Disposition Of: Inpatient - Admit Certification Admit to Inpatient:: After my assessment, the patient will require hospitalization for at least two midnights. This is because of the severity of symptoms shown, intensity of services needed, and/or the medical risk in this patient being treated as an outpatient. - InPatient: Physician Admission Certification: I certify that this patient requires 2 or more midnights of care for the following reason:: cellulitis of right knee; ambulatory dysfunction - . Bed Request Type: Regular Admitting Physician: Bertin Hastings Patient Diagnosis: Cellulitis of knee, right, Ambulatory dysfunction
[2018-10-15] MEDS ORDERED: Tdap Vaccine 0.5 ml Vial (10-64 yrs) IM ONE ×2 (18:55→22:55)
[2018-10-15 19:07] LABS: BASO % 0.6 % (0.0-2.0); EOS # 0.4 K/uL (0.0-0.7); EOS % 4.8 % (0.0-4.0); LYMPH # 2.2 K/uL (1.0-4.3); MEAN CORPUSCULAR HEMOGLOBIN 28.9 pg (27.0-31.0); MEAN CORPUSCULAR HGB CONC 32.5 g/dL (33.0-37.0); MEAN PLATELET VOLUME 8.6 fL (7.2-11.7); MONO # 1.2 K/uL (0.0-0.8); NEUT # 4.2 K/uL (1.8-7.0); NEUT % 52.6 % (50.0-75.0); NRBC % 0.1 % (0.0-2.0); RBC 4.32 Mil/uL (3.80-5.20); RED CELL DISTRIBUTION WIDTH 14.7 % (11.5-14.5)
[2018-10-15 19:11] LABS: HEMOGLOBIN 12.5 g/dL (11.0-16.0); MEAN CELL VOLUME 89.1 fL (81.0-99.0)
[2018-10-15 19:14] LABS: INR 1.1; PROTHROMBIN TIME 12.3 SECONDS (9.7-12.2)
[2018-10-15 19:20] LABS: ALB/GLOB RATIO 1.3 (1.0-2.1); ALBUMIN 4.3 g/dL (3.5-5.0); ALT/SGPT 20 U/L (9-52); AST/SGOT 24 U/L (14-36); BLOOD UREA NITROGEN 21 mg/dL (7-17); CALCIUM 9.2 mg/dl (8.6-10.4); GFR NON-AFRICAN AMERICAN > 60
[2018-10-15] MEDS ORDERED: Albuterol-Ipratrop 3 mg / 0.5 (3 ml) UD INH PRN (23:23)
--- NOTE | 2018-10-15 23:23 | CP.PCM.HP ---
<Parth Russell - Last Filed: 10/16/18 06:27> History of Present Illness - History of Present Illness History of Present Illness: PGY1 H&P for Medicine hospitalist CC: right knee pain This is a 78 year old female with PMH of NIDDM, Afib (on eliquis), HTN, CAD w/ CABG, PM, anxiety, hypercholesterolemia, hypothyroidism, left breast ca in remision (s/p radiation, lumpectomy, anastrazole) who presents for worsening right knee pain and swelling s/p fall onto the right knee on 10/10/18. She also landed on her left wrist, but denies any pain just bruising to the ventral distal wrist. Pt states that the knee only hurts when she touches it or bends the knee, but she isn't able to walk very well because of stiffness of the right knee. Pt denies fever, chills, chest pain, sob, abdominal pain, n/v/d, head trauma, any other pains. PMD: [facility]: [facility] records reviewed: PMH: NIDDM, Afib (on eliquis), HTN, CAD w/ CABG, PM ([employer]), anxiety, hypercholesterolemia, hypothyroidism, left breast ca in remision (s/p radiation, lumpectomy, anastrazole), B/L PE (10/2017) PSH: ischemic bowel resection (10/08/17), Pacemaker (placed on the right due to Hx Breast Cancer), left breast lumpectomy Meds: Metformin 500 mg PO BID, metoprolol succinate 25 mg PO QD, gabapentin 400 mg PO BID, Rosuvastatin 5 mg PO daily, Eliquis 5 mg PO daily, levothyroxine 50 mcg daily, NTG 0.6 mg/hr patch daily, Clonidine patch of unknown dose which she changes every tuesday, amlodipine 10 mg PO daily Allx: NKDA FHx: Strong Cardiac history, most family member of cardiac complications Social history: lives in 2 family home with son. occasional EtOH use. 50 pack year history, quit 10 years ago. Present on Admission - Present on Admission Any Indicators Present on Admission: Yes History of DVT/PE: Yes Review of Systems - Review of Systems All systems: reviewed and no additional remarkable complaints except (see HPI) Past Patient History - Infectious Disease Hx of Infectious Diseases: None - Past Medical History & Family History Past Medical History?: Yes - Past Social History Smoking Status: Former Smoker - CARDIAC Hx Cardia Arrhythmia: Yes Hx Hypercholesterolemia: Yes Hx Hypertension: Yes Hx Pacemaker: Yes - PULMONARY Hx Chronic Obstructive Pulmonary Disease (COPD): Yes - NEUROLOGICAL Hx Neurological Disorder: Yes - HEENT Hx HEENT Problems: Yes Hx Cataracts: Yes (removed bilateral 2011) - RENAL Hx Chronic Kidney Disease: No - ENDOCRINE/METABOLIC Hx Hypothyroidism: Yes - HEMATOLOGICAL/ONCOLOGICAL Hx Blood Disorders: Yes Hx Cancer: Yes (LEFT BREAST-RADIATION TX. DONE) - INTEGUMENTARY Hx Dermatological Problems: Yes Other/Comment: CANCER LEFT BREAST-LUMPECTOMY DONE - MUSCULOSKELETAL/RHEUMATOLOGICAL Hx Arthritis: Yes (KNEE PAIN) - GASTROINTESTINAL Hx Gastrointestinal Disorders: No - GENITOURINARY/GYNECOLOGICAL Hx Genitourinary Disorders: No - PSYCHIATRIC Hx Anxiety: Yes Hx Depression: Yes Hx Substance Use: No - SURGICAL HISTORY Hx Coronary Artery Bypass Graft: Yes (jan 17 2013 TRIPLE) Hx Coronary Stent: Yes Hx Tonsillectomy: Yes - ANESTHESIA Hx Anesthesia: Yes Hx Anesthesia Reactions: No Hx Malignant Hyperthermia: No Meds Allergies/Adverse Reactions: Allergies Allergy/AdvReac Type Severity Reaction Status Date / Time No Known Allergies Allergy Verified 03/23/18 14:03 Physical Exam - Constitutional Appears: Non-toxic, No Acute Distress - Head Exam Head Exam: ATRAUMATIC, NORMAL INSPECTION - Eye Exam Eye Exam: EOMI, Normal appearance, PERRL - ENT Exam ENT Exam: Mucous Membranes Moist - Neck Exam Neck exam: Positive for: Normal Inspection - Respiratory Exam Respiratory Exam: Clear to Auscultation Bilateral. absent: Decreased Breath Sounds, Rhonchi, Wheezes, Respiratory Distress - Cardiovascular Exam Cardiovascular Exam: REGULAR RHYTHM, +S1, +S2, Systolic Murmur (systolic ejection murmur radiating to bilateral carotids) Additional comments: (+) right upper chest wall PPM - GI/Abdominal Exam GI & Abdominal Exam: Normal Bowel Sounds, Soft. absent: Firm, Guarding, Rebound, Rigid, Tenderness Additional comments: (+) clonidine patch, NTG patch on lower abdomen - Extremities Exam Extremities exam: Positive for: normal capillary refill, tenderness (to right knee), pedal pulses present. Negative for: calf tenderness, pedal edema Additional comments: (+) right knee is erythematous, swollen; not warm to touch; popliteal pulse intact; limited ROM secondary to pain stiffness (+) left wrist ecchymosis to the ventral side, nontender - Back Exam Back exam: NORMAL INSPECTION. absent: CVA tenderness (L), CVA tenderness (R) - Neurological Exam Neurological exam: Alert, Oriented x3 - Psychiatric Exam Psychiatric exam: Normal Affect, Normal Mood - Skin Skin Exam: Dry, Normal Color, Warm Results - Vital Signs Recent Vital Signs: Last Vital Signs Temp 98.2 F 10/15/18 18:16 Pulse 75 10/15/18 18:16 Resp 18 10/15/18 18:16 BP 127/56 L 10/15/18 18:16 Pulse Ox 99 10/15/18 19:44 - Labs Result Diagrams: 10/16/18 05:08 10/16/18 05:08 Labs: Laboratory Results - last 24 hr 10/15/18 10/15/18 10/15/18 18:14 19:02 19:02 WBC 8.0 RBC 4.32 Hgb 12.5 D Hct 38.5 MCV 89.1 D MCH 28.9 MCHC 32.5 L RDW 14.7 H Plt Count 262 MPV 8.6 Neut % (Auto) 52.6 Lymph % (Auto) 27.0 [place] % (Auto) 15.0 H Eos % (Auto) 4.8 H Baso % (Auto) 0.6 Neut # (Auto) 4.2 Lymph # (Auto) 2.2 [place] # (Auto) 1.2 H Eos # (Auto) 0.4 Baso # (Auto) 0.0 ESR 36 H PT 12.3 H INR 1.1 APTT 34 Sodium Potassium Chloride Carbon Dioxide Anion Gap BUN Creatinine Est GFR ( Amer) Est GFR (Non-Af Amer) POC Glucose (mg/dL) 177 H Random Glucose Calcium Total Bilirubin AST ALT Alkaline Phosphatase Total Creatine Kinase Total Protein Albumin Globulin Albumin/Globulin Ratio 10/15/18 19:02 WBC RBC Hgb Hct MCV MCH MCHC RDW Plt Count MPV Neut % (Auto) Lymph % (Auto) [place] % (Auto) Eos % (Auto) Baso % (Auto) Neut # (Auto) Lymph # (Auto) [place] # (Auto) Eos # (Auto) Baso # (Auto) ESR PT INR APTT Sodium 140 Potassium 4.3 Chloride 102 Carbon Dioxide 29 Anion Gap 13 BUN 21 H Creatinine 0.8 Est GFR ( Amer) > 60 Est GFR (Non-Af Amer) > 60 POC Glucose (mg/dL) Random Glucose 123 H Calcium 9.2 Total Bilirubin 0.3 AST 24 ALT 20 Alkaline Phosphatase 129 H D Total Creatine Kinase 43 Total Protein 7.4 Albumin 4.3 Globulin 3.2 Albumin/Globulin Ratio 1.3 Assessment & Plan - Assessment and Plan (Free Text) Assessment: This is a 78 year old female with PMH of NIDDM, Afib, HTN, CAD w CABG, right sided PM, bilateral PE, left breast cancer in remission, anxiety, hypercholesterolemia, hypothyroidism, who presents with right knee pain and stiffness s/p fall on 10/10/18. Plan: Hematoma of the right knee, s/p fall on 10/10/[address] shows small joint effusion, no fracture, diffuse subcutaneous swelling. Large amount of fluid is present in the suprapatellar bursa consistent with bursitis. Left wrist x-ray shows no fracture; follow up official radiology reading Tdap was administered in the ED Will hold eliquis for 2 days Orthopedic surgery, Dr. Hedrick, consulted, recs appreciated Hx of CAD with CABG Continue home metoprolol 25 mg PO daily, Losartan 100 mg PO daily Hx of HTN Continue home NTG 0.6 mg/hr patch daily Will follow up with pharmacy to distinguish which dose of Clonidine patch she is on Hx of Afib Eliquis 5 mg PO daily is on hold for 2 days due to hematoma Plan to resume on 10/17 pending orthopedic evaluation Regular rate on exam Hx of NIDDM2 Continue home Metformin 500 mg PO BID Accucheck ACHS Hx of hypercholesterolemia Continue home crestor 5 mg PO QHS Hx of breast CA In remission No treatment at this time No indication for GI ppx at this time Eliquis on hold due to hematoma CCD moderate F/u PT/OT recs Dispo: admit to med/surg. F/u ortho recs for right knee management Case was reviewed and discussed with attending physician, Dr. Elieser Russell PGY1 <Triston Mon P - Last Filed: 10/16/18 08:31> Results - Vital Signs Recent Vital Signs: Last Vital Signs Temp 98.9 F 10/16/18 06:55 Pulse 56 L 01/28/19 06:55 Resp 18 10/16/18 06:55 BP 131/87 10/16/18 06:55 Pulse Ox 97 10/16/18 06:55 - Labs Result Diagrams: 10/16/18 05:08 10/16/18 05:08 Labs: Laboratory Results - last 24 hr 10/15/18 10/15/18 10/15/18 18:14 19:02 19:02 WBC 8.0 RBC 4.32 Hgb 12.5 D Hct 38.5 MCV 89.1 D MCH 28.9 MCHC 32.5 L RDW 14.7 H Plt Count 262 MPV 8.6 Neut % (Auto) 52.6 Lymph % (Auto) 27.0 [place] % (Auto) 15.0 H Eos % (Auto) 4.8 H Baso % (Auto) 0.6 Neut # (Auto) 4.2 Lymph # (Auto) 2.2 [place] # (Auto) 1.2 H Eos # (Auto) 0.4 Baso # (Auto) 0.0 ESR 36 H PT 12.3 H INR 1.1 APTT 34 Sodium Potassium Chloride Carbon Dioxide Anion Gap BUN Creatinine Est GFR ( Amer) Est GFR (Non-Af Amer) POC Glucose (mg/dL) 177 H Random Glucose Calcium Phosphorus Magnesium Total Bilirubin AST ALT Alkaline Phosphatase Total Creatine Kinase Total Protein Albumin Globulin Albumin/Globulin Ratio 10/15/18 10/16/18 10/16/18 19:02 05:08 05:08 WBC 6.9 RBC 3.79 L Hgb 11.0 Hct 34.0 MCV 89.7 MCH 29.1 MCHC 32.4 L RDW 14.6 H Plt Count 242 MPV 8.6 Neut % (Auto) 42.4 L Lymph % (Auto) 38.2 [place] % (Auto) 14.5 H Eos % (Auto) 4.5 H Baso % (Auto) 0.4 Neut # (Auto) 2.9 Lymph # (Auto) 2.6 [place] # (Auto) 1.0 H Eos # (Auto) 0.3 Baso # (Auto) 0.0 ESR PT INR APTT Sodium 140 136 Potassium 4.3 4.2 Chloride 102 102 Carbon Dioxide 29 30 Anion Gap 13 9 L BUN 21 H 23 H Creatinine 0.8 0.8 Est GFR ( Amer) > 60 > 60 Est GFR (Non-Af Amer) > 60 > 60 POC Glucose (mg/dL) Random Glucose 123 H 112 H Calcium 9.2 9.0 Phosphorus 4.5 Magnesium 1.7 Total Bilirubin 0.3 0.5 AST 24 22 ALT 20 20 Alkaline Phosphatase 129 H D 114 Total Creatine Kinase 43 Total Protein 7.4 6.6 Albumin 4.3 3.6 Globulin 3.2 3.0 Albumin/Globulin Ratio 1.3 1.2 Attending/Attestation - Attestation I have personally seen and examined this patient.: Yes I have fully participated in the care of the patient.: Yes I have reviewed all pertinent clinical information: Yes Notes (Text): 10/16/18 08:21 Fall on cracked side walk with resulting knee swelling unable to bend the knee, appears hematoma, patient currently on eliquis, which has been held h/o afib CAD s/p pci, cabg, sp pacemaker on right h/o b/l pe h/o bowel resection for afib hepatic cyst h/o left breast ca s/p surg, radiation, oral anti estrogen Recent of daughter Plan PT/OT eliquis on hold, possible heparin drip today later till knee taped Ortho consult for possible knee tap for symptomatic releaf See orders for detail.
[2018-10-16 05:14] LABS: BASO % 0.4 % (0.0-2.0); EOS # 0.3 K/uL (0.0-0.7); EOS % 4.5 % (0.0-4.0); LYMPH # 2.6 K/uL (1.0-4.3); LYMPH % 38.2 % (20.0-40.0); MEAN CELL VOLUME 89.7 fL (81.0-99.0); MEAN CORPUSCULAR HEMOGLOBIN 29.1 pg (27.0-31.0); MEAN CORPUSCULAR HGB CONC 32.4 g/dL (33.0-37.0); MEAN PLATELET VOLUME 8.6 fL (7.2-11.7); MONO % 14.5 % (0.0-10.0); NEUT # 2.9 K/uL (1.8-7.0); NEUT % 42.4 % (50.0-75.0); NRBC % 0.1 % (0.0-2.0); RBC 3.79 Mil/uL (3.80-5.20); RED CELL DISTRIBUTION WIDTH 14.6 % (11.5-14.5); WHITE BLOOD COUNT 6.9 K/uL (4.8-10.8)
[2018-10-16 05:27] LABS: ALB/GLOB RATIO 1.2 (1.0-2.1); ALBUMIN 3.6 g/dL (3.5-5.0); ALT/SGPT 20 U/L (9-52); AST/SGOT 22 U/L (14-36); BLOOD UREA NITROGEN 23 mg/dL (7-17); GFR NON-AFRICAN AMERICAN > 60
[2018-10-16] MEDS ORDERED: Levothyroxine 50 MCG TAB PO SCH (06:30)
--- NOTE | 2018-10-16 08:34 | CP.PCM.CON ---
History of Present Illness - History of Present Illness History of Present Illness: Orthopedic consultation Dr. Hedrick 78F complains of right knee pain x 6 days after a fall onto her right knee. She says she was able to walk after the fall, but the pain and the swelling continued to the point she couldn't take it anymore and she had to come to the ER. She says the pain is worst when she tries to bend knee and when she is trying to use the bathroom as her toilet is very low. She denies numbness/tingling. She admits to a bruise on her left forearm but does not have any pain there. She takes eliquis daily. She denies pain in other extremities. Patient lives alone on the second story of a two family house (son downstairs), has approx 12-13 steps. Does not use any device for ambulation at baseline. No fever/chills/CP/SOB/dizziness/palp/n/v PMH: NIDDM, Afib (on eliquis), HTN, CAD w/ CABG, PPM, anxiety, hyperc holesterolemia, hypothyroidism, left breast ca in remision (s/p radiation, lumpectomy, anastrazole), B/L PE (10/2017) PSH: ischemic bowel resection (10/08/17), Pacemaker (placed on the right due to Hx Breast Cancer), left breast lumpectomy Review of Systems - Review of Systems All systems: reviewed and no additional remarkable complaints except - Constitutional Additional comments: no fever/chills - Cardiovascular Cardiovascular: As Per HPI - Respiratory Respiratory: As Per HPI - Gastrointestinal Gastrointestinal: As Per HPI - Musculoskeletal Musculoskeletal: As Per HPI - Integumentary Integumentary: As Per HPI - Neurological Neurological: As Per HPI - Hematologic/Lymphatic Hematologic: Easy Bruising Past Patient History - Infectious Disease Hx of Infectious Diseases: None - Past Medical History & Family History Past Medical History?: Yes Past Family History: Reviewed and not pertinent - Past Social History Smoking Status: Former Smoker - CARDIAC Hx Cardia Arrhythmia: Yes Hx Hypercholesterolemia: Yes Hx Hypertension: Yes Hx Pacemaker: Yes - PULMONARY Hx Chronic Obstructive Pulmonary Disease (COPD): Yes - NEUROLOGICAL Hx Neurological Disorder: Yes - HEENT Hx HEENT Problems: Yes Hx Cataracts: Yes (removed bilateral 2011) - RENAL Hx Chronic Kidney Disease: No - ENDOCRINE/METABOLIC Hx Hypothyroidism: Yes - HEMATOLOGICAL/ONCOLOGICAL Hx Blood Disorders: Yes Hx Cancer: Yes (LEFT BREAST-RADIATION TX. DONE) - INTEGUMENTARY Hx Dermatological Problems: Yes Other/Comment: CANCER LEFT BREAST-LUMPECTOMY DONE - MUSCULOSKELETAL/RHEUMATOLOGICAL Hx Arthritis: Yes (KNEE PAIN) - GASTROINTESTINAL Hx Gastrointestinal Disorders: No - GENITOURINARY/GYNECOLOGICAL Hx Genitourinary Disorders: No - PSYCHIATRIC Hx Anxiety: Yes Hx Depression: Yes Hx Substance Use: No - SURGICAL HISTORY Hx Coronary Artery Bypass Graft: Yes (jan 17 2013 TRIPLE) Hx Coronary Stent: Yes Hx Tonsillectomy: Yes - ANESTHESIA Hx Anesthesia: Yes Hx Anesthesia Reactions: No Hx Malignant Hyperthermia: No Meds Allergies/Adverse Reactions: Allergies Allergy/AdvReac Type Severity Reaction Status Date / Time No Known Allergies Allergy Verified 03/23/18 14:03 - Medications Medications: Current Medications Albuterol/Ipratropium (Duoneb 3 Mg/0.5 Mg (3 Ml) Ud) 3 ml INH RQ6 PRN PRN Reason: Shortness of Breath Amlodipine Besylate (Norvasc) 10 mg PO DAILY [facility] Gabapentin (Neurontin) 400 mg PO BID [facility] Levothyroxine Sodium (Synthroid) 50 mcg PO DAILY@0630 [facility] Losartan Potassium (Cozaar) 100 mg PO DAILY [facility] Metformin HCl (Glucophage) 500 mg PO BID [facility] Metoprolol Succinate (Toprol Xl) 25 mg PO DAILY [facility] Nitroglycerin (Nitro-Dur 0.6 Mg/Hr Patch) 1 patch TD DAILY [facility] Rosuvastatin Calcium (Crestor) 5 mg NG HS TIM Last Admin: 10/16/18 05:15 Dose: 5 mg Physical Exam - Constitutional Appears: Well, No Acute Distress - Head Exam Head Exam: ATRAUMATIC - Neck Exam Neck exam: Positive for: Full Rom, Normal Inspection - Respiratory Exam Respiratory Exam: NORMAL BREATHING PATTERN - Cardiovascular Exam Additional comments: +DP/PT pulses - Extremities Exam Additional comments: calves soft NT neg homans, no peripheral edema - Expanded Lower Extremities Exam Right Hip exam: full ROM, normal inspection Knee exam: ecchymosis (no obvious joint effusion, no pain with PROM 0-35 degrees, then complains of pain in front of knee. No laxity to varus/valgus stress, neg amado but guards, sensation intact), full knee extension (able to actively extend knee and hold knee in extended position), swelling Ankle exam: FULL ROM, NORMAL INSPECTION Neuro vacular tendon exam: no vascular compromise - Neurological Exam Neurological exam: Alert, Oriented x3 - Psychiatric Exam Psychiatric exam: Normal Affect, Normal Mood - Skin Skin Exam: Dry, Intact, Warm Additional comments: noted erythema and moderate ecchymosis to right anterior knee, with ecchymosis noted also to lateral side of leg Results - Vital Signs Recent Vital Signs: Last Vital Signs Temp 98.9 F 10/16/18 06:55 Pulse 56 L 10/16/18 06:55 Resp 18 10/16/18 06:55 BP 131/87 10/16/18 06:55 Pulse Ox 97 10/16/18 06:55 - Labs Result Diagrams: 10/16/18 05:08 10/16/18 05:08 Labs: Laboratory Results - last 24 hr 10/15/18 10/15/18 10/15/18 18:14 19:02 19:02 WBC 8.0 RBC 4.32 Hgb 12.5 D Hct 38.5 MCV 89.1 D MCH 28.9 MCHC 32.5 L RDW 14.7 H Plt Count 262 MPV 8.6 Neut % (Auto) 52.6 Lymph % (Auto) 27.0 [place] % (Auto) 15.0 H Eos % (Auto) 4.8 H Baso % (Auto) 0.6 Neut # (Auto) 4.2 Lymph # (Auto) 2.2 [place] # (Auto) 1.2 H Eos # (Auto) 0.4 Baso # (Auto) 0.0 ESR 36 H PT 12.3 H INR 1.1 APTT 34 Sodium Potassium Chloride Carbon Dioxide Anion Gap BUN Creatinine Est GFR ( Amer) Est GFR (Non-Af Amer) POC Glucose (mg/dL) 177 H Random Glucose Calcium Phosphorus Magnesium Total Bilirubin AST ALT Alkaline Phosphatase Total Creatine Kinase Total Protein Albumin Globulin Albumin/Globulin Ratio 10/15/18 10/16/18 10/16/18 19:02 05:08 05:08 WBC 6.9 RBC 3.79 L Hgb 11.0 Hct 34.0 MCV 89.7 MCH 29.1 MCHC 32.4 L RDW 14.6 H Plt Count 242 MPV 8.6 Neut % (Auto) 42.4 L Lymph % (Auto) 38.2 [place] % (Auto) 14.5 H Eos % (Auto) 4.5 H Baso % (Auto) 0.4 Neut # (Auto) 2.9 Lymph # (Auto) 2.6 [place] # (Auto) 1.0 H Eos # (Auto) 0.3 Baso # (Auto) 0.0 ESR PT INR APTT Sodium 140 136 Potassium 4.3 4.2 Chloride 102 102 Carbon Dioxide 29 30 Anion Gap 13 9 L BUN 21 H 23 H Creatinine 0.8 0.8 Est GFR ( Amer) > 60 > 60 Est GFR (Non-Af Amer) > 60 > 60 POC Glucose (mg/dL) Random Glucose 123 H 112 H Calcium 9.2 9.0 Phosphorus 4.5 Magnesium 1.7 Total Bilirubin 0.3 0.5 AST 24 22 ALT 20 20 Alkaline Phosphatase 129 H D 114 Total Creatine Kinase 43 Total Protein 7.4 6.6 Albumin 4.3 3.6 Globulin 3.2 3.0 Albumin/Globulin Ratio 1.3 1.2 - Impressions Impression: Patient Name / ID : ALANNA RIGGS A / [id number] Exam Date : 10/15/2018 20:14:30 ( Approved ) Study Comment : Sex / Age : F / 78Y Creator : Baron German Dictator : Lico Cha MD Director Learning And Development : Shirt Cleaner : Lico Cha MD Approver2 : Report Date : 10/15/2018 20:32:38 My Comment : Date of service: 10/15/2018 PROCEDURE: HISTORY: s/p fall COMPARISON: TECHNIQUE: FINDINGS: No acute fracture dislocation. Small suprapatellar joint effusion. Diffuse subcutaneous edema. Superficial infrapatellar bursitis. No gross muscle abnormality. IMPRESSION: No acute fracture. Superficial infrapatellar bursitis. Assessment & Plan (1) Prepatellar bursitis, right knee Assessment and Plan: no joint involvement suspected, large hematoma/bursitis to anterior knee exacerbated by eliquis no fracture on CT extensor mechanism intact knee immobilizer for rest and comfort compression with kenny ice PT/OT WBAT VTE proph no orthopedic intervention indicated MRI contraindicated d/w Dr. Hedrick, agrees with above Status: Acute (2) Hematoma of right lower extremity Status: Acute
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
[2018-10-16] MEDS ORDERED: Nitroglycerin 0.6 mg/hr Top Patch TD SCH (10:00)
--- NOTE | 2018-10-16 10:28 | CT ---
Date of service: 10/15/2018 PROCEDURE: HISTORY: s/p fall COMPARISON: TECHNIQUE: FINDINGS: No acute fracture dislocation. Small suprapatellar joint effusion. Diffuse subcutaneous edema. Superficial infrapatellar bursitis. No gross muscle abnormality. IMPRESSION: No acute fracture. Superficial infrapatellar bursitis.
[2018-10-16] MEDS: Metoprolol Succinate 25 mg XL Tab PO SCH (10:42)
--- NOTE | 2018-10-16 12:34 | CP.PCM.PCO ---
Physician Communication Note - Physician Communication Note Physician Communication Note: Discussed ortho-Pa, patient resume Eliquis. Recommends for patient to start
--- NOTE | 2018-10-16 13:00 | CP.PCM.PN ---
Subjective - Date & Time of Evaluation Date of Evaluation: 10/16/18 Time of Evaluation: 12:58 - Subjective Subjective: PGY-1 Medicine Progress Note for Dr. Royal's service S/E at bedside. Was emotional due to recent of daughter (10 days ago). Admits to mild knee pain. Denies fevers, chills, chest pain, sob, n/v, constip ation or diarrhea, and dyuria. Objective - Vital Signs/Intake and Output Vital Signs (last 24 hours): Temp Pulse Resp BP Pulse Ox 98 F 82 16 126/59 L 98 10/16/18 12:48 10/16/18 12:48 10/16/18 12:48 10/16/18 12:48 10/16/18 12:48 - Medications Medications: Current Medications Acetaminophen (Tylenol 325mg Tab) 650 mg PO Q6 PRN PRN Reason: Pain, Mild (1-3) Albuterol/Ipratropium (Duoneb 3 Mg/0.5 Mg (3 Ml) Ud) 3 ml INH RQ6 PRN PRN Reason: Shortness of Breath Amlodipine Besylate (Norvasc) 10 mg PO DAILY [facility] Last Admin: 10/16/18 10:42 Dose: 10 mg Gabapentin (Neurontin) 400 mg PO BID [facility] Last Admin: 10/16/18 10:42 Dose: 400 mg Levothyroxine Sodium (Synthroid) 50 mcg PO DAILY@0630 [facility] Losartan Potassium (Cozaar) 100 mg PO DAILY [facility] Last Admin: 10/16/18 10:42 Dose: 100 mg Metformin HCl (Glucophage) 500 mg PO BID [facility] Last Admin: 10/16/18 10:42 Dose: 500 mg Metoprolol Succinate (Toprol Xl) 25 mg PO DAILY [facility] Last Admin: 10/16/18 10:42 Dose: 25 mg Nitroglycerin (Nitro-Dur 0.6 Mg/Hr Patch) 1 patch TD DAILY [facility] Last Admin: 10/16/18 10:45 Dose: 1 patch Rosuvastatin Calcium (Crestor) 5 mg NG HS [facility] Last Admin: 10/16/18 05:15 Dose: 5 mg - Labs Labs: 10/16/18 05:08 10/16/18 05:08 PT 12.3 SECONDS (9.7-12.2) H 10/15/18 19:02 INR 1.1 10/15/18 19:02 APTT 34 SECONDS (21-34) 10/15/18 19:02 - Constitutional Appears: Non-toxic, No Acute Distress - Head Exam Head Exam: NORMAL INSPECTION, NORMOCEPHALIC - Eye Exam Eye Exam: EOMI, Normal appearance. absent: Nystagmus, Scleral icterus - ENT Exam ENT Exam: Mucous Membranes Moist - Respiratory Exam Respiratory Exam: Clear to Ausculation Bilateral, NORMAL BREATHING PATTERN. absent: Rales, Rhonchi, Wheezes - Cardiovascular Exam Cardiovascular Exam: REGULAR RHYTHM, +S1, +S2, Murmur. absent: Tachycardia Additional comments: systolic murmur appreciated between 2nd and 3rd intercostal space - GI/Abdominal Exam GI & Abdominal Exam: Soft, Normal Bowel Sounds. absent: Distended, Firm, Guarding, Rigid, Tenderness - Extremities Exam Additional comments: left LE: kenny bandage in place with knee immoblizer overlying right LE: normal inspection b/l LE pulses palpable Muscle strength testing in LLE:5/5, RLE: deferred in setting of immobilization - Neurological Exam Neurological Exam: Alert, Awake, Oriented x3 - Skin Skin Exam: Dry, Intact, Normal Color Additional comments: noted 1 well healed incision of chest s/p CABG noted 1 well healed abdomen scar s/p bowel ischemia Assessment and Plan - Assessment and Plan (Free Text) Assessment: Patient is a 78 yo female w/ PMH of NIDDM2, afib on eliquis, asthma, HTN, CAD w/ CABG & right sided pacemaker, bowel ischemia with resection, hypothyroidism, and left breast cancer with lumpectomy in remission admitted for knee stiffness. Patient states she had a fall on 10/10/18. Right Knee Hematoma Ortho Consulted: Dr. Hedrick- no surgical intervention required 10/15/[address]: no acute fracture, superficial infrapatellar bursitis Eliquis may be restarted as per ortho Depression vs Acute stress disorder Psych consulted: Dr Anaya- recent family , recs appreciated Hx of CAD w/ CABG Lopressor 25mg po daily Losartan 100mg po daily Amlodipine 10mg po daily Nitro patch 0.6mg/hr patch daily Hx of HTN Nitro patch 0.6mg/hr patch daily Losartan 100mg po daily Amlodipine 10mg po daily Hx of NIDDM2 Metformin 500mg po bid Gabapentin 400mg po bid Hx of Afib Lopressor 25mg po daily Eliquis 5mg po daily can be restarted Well controlled currently Hx of Hypothyroidism LT4 50mcg po daily Hx of hypercholesterolemia Crestor 5mg po qhs Hx of breast cancer In remission No treatment at this time Hx of asthma Duoneb PRN GI ppx: not indicated at this time DVT ppx: may restart eliquis as per surgery PGY-1 [facility] d/w Dr. Royal.
--- NOTE | 2018-10-16 13:17 | RAD ---
PROCEDURE: Left Wrist Radiographs. HISTORY: s/p fall COMPARISON: None available. FINDINGS: BONES: Osseous demineralization limits evaluation for acute fracture lines. No acute displaced fracture. JOINTS: No dislocation. Marked joint space narrowing particularly the 1st carpal/metacarpal joint space. SOFT TISSUES: Mild soft tissue swelling. No evidence of radiopaque foreign body OTHER FINDINGS: None. IMPRESSION: Mild soft tissue swelling. No acute displaced fracture identified. If high clinical index of suspicion for occult fracture recommend further evaluation with cross-sectional imaging. Degenerative changes.
[2018-10-16 15:17] VITALS: RESP 20
--- NOTE | 2018-10-16 19:01 | CP.PCM.CON ---
History of Present Illness - History of Present Illness History of Present Illness: 78F w/ pmh: dm, htn, hld, cad s/p cabg, cardiomyopathy s/p pace maker, breast ca s/p lumpectomy, radiation, anastrazole, BL PE, afib on eliquis Reports mechanical fall on 10/10 w/o LOC, dizziness, or prodrome - patient states she had no trauma to head and fell on outstretched LUE w/ direct impact to RLE. No findings on LUE XR, CT RLE - no acute fx or dislocation, small suprapatellar joint effusion. Patient states that over the following days RLE became erythematous and subsequently presented to [facility] ED on 10/15 PM. Upon evaluation patient was found to have a significant hematoma on her RLE. She reports some RLE discomfort/pain w/ hematoma w/ associated stiffness. Upon ROS: denies cp sob palp dizziness slurred speech focal weakness visual problems remainder 12 system ROS is otherwise negative Cardiology consulted for management of chronic cardiovascular comorbidities PMH: As above PSH: ischemic bowel resection (10/08/17), Pacemaker (placed on the right due to Hx Breast Cancer), left breast lumpectomy ALL: NKDA FamHx: Significant for cardiac disease Social hx: 50 pack year Hx quit 10 years ago, Social EtOH, Denies illicit Review of Systems - Review of Systems All systems: reviewed and no additional remarkable complaints except Review of Systems: as per HPI Past Patient History - Infectious Disease Hx of Infectious Diseases: None - Past Medical History & Family History Past Medical History?: Yes Past Family History: Reviewed and not pertinent - Past Social History Smoking Status: Former Smoker - CARDIAC Hx Hypercholesterolemia: Yes Hx Hypertension: Yes - PULMONARY Hx Chronic Obstructive Pulmonary Disease (COPD): Yes - NEUROLOGICAL Hx Neurological Disorder: Yes - HEENT Hx HEENT Problems: Yes Hx Cataracts: Yes (removed bilateral 2011) - RENAL Hx Chronic Kidney Disease: No - ENDOCRINE/METABOLIC Hx Hypothyroidism: Yes - HEMATOLOGICAL/ONCOLOGICAL Hx Blood Disorders: Yes Hx Cancer: Yes (LEFT BREAST-RADIATION TX. DONE) - INTEGUMENTARY Hx Dermatological Problems: Yes Other/Comment: CANCER LEFT BREAST-LUMPECTOMY DONE - MUSCULOSKELETAL/RHEUMATOLOGICAL Hx Arthritis: Yes - GASTROINTESTINAL Hx Gastrointestinal Disorders: No - GENITOURINARY/GYNECOLOGICAL Hx Genitourinary Disorders: No - PSYCHIATRIC Hx Anxiety: Yes Hx Depression: Yes Hx Substance Use: No - SURGICAL HISTORY Hx Coronary Artery Bypass Graft: Yes (jan 17 2013 TRIPLE) Hx Coronary Stent: Yes Hx Tonsillectomy: Yes - ANESTHESIA Hx Anesthesia: Yes Hx Anesthesia Reactions: No Hx Malignant Hyperthermia: No Meds Allergies/Adverse Reactions: Allergies Allergy/AdvReac Type Severity Reaction Status Date / Time No Known Allergies Allergy Verified 10/16/18 12:49 - Medications Medications: Current Medications Acetaminophen (Tylenol 325mg Tab) 650 mg PO Q6 PRN PRN Reason: Pain, Mild (1-3) Albuterol/Ipratropium (Duoneb 3 Mg/0.5 Mg (3 Ml) Ud) 3 ml INH RQ6 PRN PRN Reason: Shortness of Breath Amlodipine Besylate (Norvasc) 10 mg PO DAILY [facility] Last Admin: 10/16/18 10:42 Dose: 10 mg Apixaban (Eliquis) 5 mg PO DAILY [facility] Gabapentin (Neurontin) 400 mg PO BID [facility] Last Admin: 10/16/18 18:54 Dose: 400 mg Levothyroxine Sodium (Synthroid) 50 mcg PO DAILY@0630 [facility] Losartan Potassium (Cozaar) 100 mg PO DAILY [facility] Last Admin: 10/16/18 10:42 Dose: 100 mg Metformin HCl (Glucophage) 500 mg PO BID [facility] Last Admin: 10/16/18 18:44 Dose: 500 mg Metoprolol Succinate (Toprol Xl) 25 mg PO DAILY [facility] Last Admin: 10/16/18 10:42 Dose: 25 mg Nitroglycerin (Nitro-Dur 0.6 Mg/Hr Patch) 1 patch TD DAILY [facility] Last Admin: 10/16/18 10:45 Dose: 1 patch Rosuvastatin Calcium (Crestor) 5 mg NG HS [facility] Last Admin: 10/16/18 05:15 Dose: 5 mg Physical Exam - Constitutional Appears: Well, Non-toxic, No Acute Distress - Head Exam Head Exam: ATRAUMATIC, NORMOCEPHALIC - Eye Exam Eye Exam: EOMI, Normal appearance, PERRL - ENT Exam ENT Exam: Mucous Membranes Moist - Respiratory Exam Respiratory Exam: Clear to Auscultation Bilateral, NORMAL BREATHING PATTERN - Cardiovascular Exam Cardiovascular Exam: RRR, +S1, +S2, Systolic Murmur (Significant along LSB) - GI/Abdominal Exam GI & Abdominal Exam: Normal Bowel Sounds, Soft. absent: Tenderness - Extremities Exam Extremities exam: Positive for: pedal pulses present (1+ BL ) Additional comments: BL LE warm, good cap refill, RLE bandaged/splinted - hematoma unable to be appreciated - Neurological Exam Neurological exam: Alert, CN II-XII Intact, Oriented x3 Additional comments: UE w/ 5/5 gross strength equal BL - Psychiatric Exam Psychiatric exam: Normal Affect, Normal Mood - Skin Skin Exam: Dry, Normal Color, Warm Results - Vital Signs Recent Vital Signs: Last Vital Signs Temp 97.7 F 10/16/18 16:37 Pulse 72 10/16/18 16:37 Resp 20 10/16/18 16:37 BP 121/62 10/16/18 16:37 Pulse Ox 97 10/16/18 16:37 - Labs Result Diagrams: 10/16/18 05:08 10/16/18 05:08 Labs: Laboratory Results - last 24 hr 10/15/18 10/15/18 10/15/18 19:02 19:02 19:02 WBC 8.0 RBC 4.32 Hgb 12.5 D Hct 38.5 MCV 89.1 D MCH 28.9 MCHC 32.5 L RDW 14.7 H Plt Count 262 MPV 8.6 Neut % (Auto) 52.6 Lymph % (Auto) 27.0 [place] % (Auto) 15.0 H Eos % (Auto) 4.8 H Baso % (Auto) 0.6 Neut # (Auto) 4.2 Lymph # (Auto) 2.2 [place] # (Auto) 1.2 H Eos # (Auto) 0.4 Baso # (Auto) 0.0 ESR 36 H PT 12.3 H INR 1.1 APTT 34 Sodium 140 Potassium 4.3 Chloride 102 Carbon Dioxide 29 Anion Gap 13 BUN 21 H Creatinine 0.8 Est GFR ( Amer) > 60 Est GFR (Non-Af Amer) > 60 POC Glucose (mg/dL) Random Glucose 123 H Calcium 9.2 Phosphorus Magnesium Total Bilirubin 0.3 AST 24 ALT 20 Alkaline Phosphatase 129 H D Total Creatine Kinase 43 Total Protein 7.4 Albumin 4.3 Globulin 3.2 Albumin/Globulin Ratio 1.3 10/16/18 10/16/18 10/16/18 05:08 05:08 16:17 WBC 6.9 RBC 3.79 L Hgb 11.0 Hct 34.0 MCV 89.7 MCH 29.1 MCHC 32.4 L RDW 14.6 H Plt Count 242 MPV 8.6 Neut % (Auto) 42.4 L Lymph % (Auto) 38.2 [place] % (Auto) 14.5 H Eos % (Auto) 4.5 H Baso % (Auto) 0.4 Neut # (Auto) 2.9 Lymph # (Auto) 2.6 [place] # (Auto) 1.0 H Eos # (Auto) 0.3 Baso # (Auto) 0.0 ESR PT INR APTT Sodium 136 Potassium 4.2 Chloride 102 Carbon Dioxide 30 Anion Gap 9 L BUN 23 H Creatinine 0.8 Est GFR ( Amer) > 60 Est GFR (Non-Af Amer) > 60 POC Glucose (mg/dL) 137 H Random Glucose 112 H Calcium 9.0 Phosphorus 4.5 Magnesium 1.7 Total Bilirubin 0.5 AST 22 ALT 20 Alkaline Phosphatase 114 Total Creatine Kinase Total Protein 6.6 Albumin 3.6 Globulin 3.0 Albumin/Globulin Ratio 1.2 Assessment & Plan (1) Hematoma of right lower extremity Status: Acute Priority: High (2) HLD (hyperlipidemia) Status: Chronic (3) Cardiomyopathy Status: Chronic (4) Pacemaker Status: Chronic (5) Afib Status: Chronic (6) CAD (coronary artery disease) Status: Chronic (7) Hx of CABG Status: Chronic (8) Hypertension Status: Chronic (9) Pulmonary embolism Status: Resolved - Assessment and Plan (Free Text) Plan: Eliquis initially held on presentation until patient could be evaluated by ortho. Patient resumed on eliquis Start ASA 81 QD Continue: Toprol XL 25 QD Norvasc 10 QD Cozaar 100 QD Crestor 5 QD Further reccs per Dr. Childs Pending
[2018-10-17 08:49] LABS: BASO % 0.6 % (0.0-2.0); EOS # 0.3 K/uL (0.0-0.7); EOS % 4.1 % (0.0-4.0); HEMOGLOBIN 11.3 g/dL (11.0-16.0); LYMPH # 2.3 K/uL (1.0-4.3); LYMPH % 30.1 % (20.0-40.0); MEAN CELL VOLUME 89.8 fL (81.0-99.0); MEAN CORPUSCULAR HEMOGLOBIN 29.3 pg (27.0-31.0); MEAN CORPUSCULAR HGB CONC 32.6 g/dL (33.0-37.0); MEAN PLATELET VOLUME 8.6 fL (7.2-11.7); MONO # 1.2 K/uL (0.0-0.8); MONO % 15.9 % (0.0-10.0); NEUT # 3.8 K/uL (1.8-7.0); NEUT % 49.3 % (50.0-75.0); RBC 3.87 Mil/uL (3.80-5.20); RED CELL DISTRIBUTION WIDTH 14.5 % (11.5-14.5); WHITE BLOOD COUNT 7.7 K/uL (4.8-10.8)
[2018-10-17 09:11] VITALS: O2SAT 96
[2018-10-17 09:29] LABS: B-TYPE NATRIURETIC PEPTIDE 240 pg/mL (0-900)
[2018-10-17 09:37] LABS: ALBUMIN 3.7 g/dL (3.5-5.0); ALT/SGPT 19 U/L (9-52); AST/SGOT 29 U/L (14-36); BLOOD UREA NITROGEN 23 mg/dL (7-17); CALCIUM 9.3 mg/dl (8.6-10.4); GFR NON-AFRICAN AMERICAN > 60
[2018-10-17 09:45] LABS: ALB/GLOB RATIO 1.2 (1.0-2.1)
[2018-10-17] MEDS: Metoprolol Succinate 25 mg XL Tab PO SCH (11:03)
--- NOTE | 2018-10-17 13:38 | CP.PCM.PN ---
Subjective - Date & Time of Evaluation Date of Evaluation: 10/17/18 Time of Evaluation: 13:34 - Subjective Subjective: Patient states her knee feels a little better today. She was able to do more in PT. Denies CP/SOB/dizziness/numbness/tingling/fever/chills/n/v Review of Systems - Review of Systems All systems: reviewed and no additional remarkable complaints except - Cardiovascular Cardiovascular: As Per HPI - Respiratory Respiratory: As Per HPI - Gastrointestinal Gastrointestinal: As Per HPI - Musculoskeletal Musculoskeletal: As Par HPI - Neurological Neurological: As Per HPI - Hematologic/Lymphatic Hematologic: Easy Bruising Objective - Vital Signs/Intake and Output Vital Signs (last 24 hours): Temp Pulse Resp BP Pulse Ox 98.0 F 68 20 112/60 96 10/17/18 09:10 10/17/18 09:10 10/17/18 09:10 10/17/18 09:10 10/17/18 09:10 Intake and Output: 10/17/18 10/17/18 06:59 18:59 Intake Total 650 Balance 650 - Medications Medications: Current Medications Acetaminophen (Tylenol 325mg Tab) 650 mg PO Q6 PRN PRN Reason: Pain, Mild (1-3) Last Admin: 10/17/18 05:51 Dose: 650 mg Albuterol/Ipratropium (Duoneb 3 Mg/0.5 Mg (3 Ml) Ud) 3 ml INH RQ6 PRN PRN Reason: Shortness of Breath Amlodipine Besylate (Norvasc) 10 mg PO DAILY [facility] Last Admin: 10/17/18 11:03 Dose: 10 mg Apixaban (Eliquis) 5 mg PO DAILY [facility] Last Admin: 10/17/18 11:03 Dose: 5 mg Aspirin (Aspirin Chewable) 81 mg PO DAILY [facility] Last Admin: 10/17/18 11:04 Dose: 81 mg Gabapentin (Neurontin) 400 mg PO BID [facility] Last Admin: 10/17/18 11:02 Dose: 400 mg Levothyroxine Sodium (Synthroid) 50 mcg PO DAILY@0630 [facility] Last Admin: 10/17/18 05:50 Dose: 50 mcg Losartan Potassium (Cozaar) 100 mg PO DAILY [facility] Last Admin: 10/17/18 11:03 Dose: 100 mg Metformin HCl (Glucophage) 500 mg PO BID [facility] Last Admin: 10/17/18 11:03 Dose: 500 mg Metoprolol Succinate (Toprol Xl) 25 mg PO DAILY [facility] Last Admin: 10/17/18 11:03 Dose: 25 mg Rosuvastatin Calcium (Crestor) 5 mg NG HS [facility] Last Admin: 10/16/18 21:40 Dose: 5 mg - Labs Labs: 10/17/18 08:40 10/17/18 08:40 PT 12.3 SECONDS (9.7-12.2) H 10/15/18 19:02 INR 1.1 10/15/18 19:02 APTT 34 SECONDS (21-34) 10/15/18 19:02 - Constitutional Appears: Well, No Acute Distress - Head Exam Head Exam: ATRAUMATIC - Neck Exam Neck Exam: Full ROM, Normal Inspection - Respiratory Exam Respiratory Exam: NORMAL BREATHING PATTERN - Cardiovascular Exam Additional comments: +DP/PT pulses - Extremities Exam Additional comments: Right knee: more ecchymosis today anteriorly, less swelling. Improving. Patient can flex to 30 degrees now then complains of pain. Calves soft NT neg homans sensation intact, no laxity to varus/valgus/amado/pst drawer - Neurological Exam Neurological Exam: Alert, Awake, Oriented x3 Neuro motor strength exam: Right Lower Extremity: 5 (ankle/toes) - Psychiatric Exam Psychiatric exam: Normal Affect, Normal Mood - Skin Skin Exam: Dry, Intact, Warm Assessment and Plan (1) Prepatellar bursitis, right knee Assessment & Plan: improving much improved with PT today maintain knee immobilizer at this time for comfort and for swelling and inflammation to improve. May remove at home this weekend as tolerated patient instructed. Ambulation with PT. VTE proph. WBAT. f/u Dr. hedrick in approx 7 days, call for appt d/w Dr. Hedrick, agrees with above Status: Acute (2) Hematoma of right lower extremity Status: Acute
--- NOTE | 2018-10-17 15:49 | CP.PCM.DIS ---
Provider - Provider Date of Admission: 10/15/18 19:15 Attending physician: Bertin Hastings MD Consults: 10/16/18 06:00 Orthopedic Consult Routine Comment: Consulting Provider: Jonatan Hedrick III Consulting Physician: Jonatan Hedrick III Reason for Consult: hematoma right knee s/p fall 10/16/18 07:55 Pastoral Care Referral Routine Comment: Physician Instructions: Reason For Exam: recent passing of daughter Psychiatry Consult Routine Comment: Consulting Provider: Patricia Anaya Consulting Physician: Patricia Anaya Reason for Consult: eval for depression, bereavement 10/16/18 12:32 Cardiology Consult Routine Comment: Consulting Provider: Babak Childs Consulting Physician: Babak Childs Reason for Consult: pmd nati, has pacemaker, afib, as Time Spent in preparation of Discharge (in minutes): 45 Diagnosis - Discharge Diagnosis (1) Hematoma of right lower extremity Status: Acute Priority: High (2) Prepatellar bursitis, right knee Status: Acute Hospital Course - Lab Results Lab Results: Micro Results 10/15/18 19:46 Blood Blood Culture - Preliminary NO GROWTH AFTER 24 HOURS 10/15/18 19:12 Blood Blood Culture - Preliminary NO GROWTH AFTER 24 HOURS Most Recent Lab Values WBC 7.7 K/uL (4.8-10.8) 10/17/18 08:40 RBC 3.87 Mil/uL (3.80-5.20) 10/17/18 08:40 Hgb 11.3 g/dL (11.0-16.0) 10/17/18 08:40 Hct 34.7 % (34.0-47.0) 10/17/18 08:40 MCV 89.8 fL (81.0-99.0) 10/17/18 08:40 MCH 29.3 pg (27.0-31.0) 10/17/18 08:40 MCHC 32.6 g/dL (33.0-37.0) L 10/17/18 08:40 RDW 14.5 % (11.5-14.5) 10/17/18 08:40 Plt Count 254 K/uL (130-400) 10/17/18 08:40 MPV 8.6 fL (7.2-11.7) 10/17/18 08:40 Neut % (Auto) 49.3 % (50.0-75.0) L 10/17/18 08:40 Lymph % (Auto) 30.1 % (20.0-40.0) 10/17/18 08:40 Ward % (Auto) 15.9 % (0.0-10.0) H 10/17/18 08:40 Eos % (Auto) 4.1 % (0.0-4.0) H 10/17/18 08:40 Baso % (Auto) 0.6 % (0.0-2.0) 10/17/18 08:40 Neut # (Auto) 3.8 K/uL (1.8-7.0) 10/17/18 08:40 Lymph # (Auto) 2.3 K/uL (1.0-4.3) 10/17/18 08:40 Ward # (Auto) 1.2 K/uL (0.0-0.8) H 10/17/18 08:40 Eos # (Auto) 0.3 K/uL (0.0-0.7) 10/17/18 08:40 Baso # (Auto) 0.0 K/uL (0.0-0.2) 10/17/18 08:40 ESR 36 mm/hr (0-20) H 10/15/18 19:02 PT 12.3 SECONDS (9.7-12.2) H 10/15/18 19:02 INR 1.1 10/15/18 19:02 APTT 34 SECONDS (21-34) 10/15/18 19:02 Sodium 139 mmol/L (132-148) 10/17/18 08:40 Potassium 4.5 mmol/L (3.6-5.2) 10/17/18 08:40 Chloride 104 mmol/L (98-107) 10/17/18 08:40 Carbon Dioxide 28 mmol/L (22-30) 10/17/18 08:40 Anion Gap 11 (10-20) 10/17/18 08:40 BUN 23 mg/dL (7-17) H 10/17/18 08:40 Creatinine 0.8 mg/dL (0.7-1.2) 10/17/18 08:40 Est GFR ( Amer) > 60 10/17/18 08:40 Est GFR (Non-Af Amer) > 60 10/17/18 08:40 POC Glucose (mg/dL) 150 mg/dL (65-110) H 10/17/18 11:20 Random Glucose 135 mg/dL (65-105) H D 10/17/18 08:40 Calcium 9.3 mg/dl (8.6-10.4) 10/17/18 08:40 Phosphorus 4.3 mg/dL (2.5-4.5) 10/17/18 08:40 Magnesium 1.7 mg/dL (1.6-2.3) 10/17/18 08:40 Total Bilirubin 0.5 mg/dL (0.2-1.3) 10/17/18 08:40 AST 29 U/L (14-36) 10/17/18 08:40 ALT 19 U/L (9-52) 10/17/18 08:40 Alkaline Phosphatase 118 U/L (38-126) 10/17/18 08:40 Total Creatine Kinase 43 U/L (30-135) 10/15/18 19:02 NT-Pro-B Natriuret Pep 240 pg/mL (0-900) 10/17/18 08:40 Total Protein 6.8 g/dL (6.3-8.3) 10/17/18 08:40 Albumin 3.7 g/dL (3.5-5.0) 10/17/18 08:40 Globulin 3.1 gm/dL (2.2-3.9) 10/17/18 08:40 Albumin/Globulin Ratio 1.2 (1.0-2.1) 10/17/18 08:40 - Hospital Course Hospital Course: Upon Admission This is a 78 year old female with PMH of NIDDM, Afib (on eliquis), HTN, CAD w/ CABG, PM, anxiety, hypercholesterolemia, hypothyroidism, left breast ca in remision (s/p radiation, lumpectomy, anastrazole) who presents for worsening right knee pain and swelling s/p fall onto the right knee on 10/10/18. She also landed on her left wrist, but denies any pain just bruising to the ventral distal wrist. Pt states that the knee only hurts when she touches it or bends the knee, but she isn't able to walk very well because of stiffness of the right knee. Pt denies fever, chills, chest pain, sob, abdominal pain, n/v/d, head trauma, any other pains. Hospital Course Patient is a 78 yo female w/ PMH of NIDDM2, afib on eliquis, asthma, HTN, CAD w/ CABG & right sided pacemaker, bowel ischemia with resection, hypothyroidism, and left breast cancer with lumpectomy in remission admitted for knee stiffness. Patient states she had a fall on 10/10/18. Knee CT showed bursitis with possible hematoma. Ortho consulted but no intervention was necessary. Discharged with instructions to follow up Discharge Plan 1. Patient is stable for discharge to home as per Dr. Royal 2. Patient will continue all of the medications as listed at home: Aspirin 81mg po daily Duonebs as needed Levothyroxine 50mcg po daily Cozaar 100mg po daily Metformin 500mg po bid Crestor 5mg po HS Norvasc 10mg po daily Eliquis 5mg po daily Gabapentin 400mg po bid Metoprolol 25mg po daily 3. Patient will need to followup with Dr. Jimenez within 1 week of discharge from hospital. Patient will need to follow up with primary corporate sales representative and Dr. Hedrick within 7 days of discharge from hospital. 4. Patient should return to hospital if symptoms worsen or recur. 5. Patient understands the plan as above and agrees Discharge Exam - Head Exam Head Exam: ATRAUMATIC, NORMAL INSPECTION, NORMOCEPHALIC - Eye Exam Eye Exam: EOMI, Normal appearance. absent: Nystagmus, Scleral icterus - Respiratory Exam Respiratory Exam: Clear to PA & Lateral, NORMAL BREATHING PATTERN. absent: Chest Wall Tenderness, Decreased Breath Sounds, Prolonged Expiratory Phase, Rales, Rhonchi, Wheezes - Cardiovascular Exam Cardiovascular Exam: REGULAR RHYTHM, +S1, +S2. absent: Tachycardia - GI/Abdominal Exam GI & Abdominal Exam: Normal Bowel Sounds, Soft. absent: Diminished Bowel Sounds, Distended, Firm, Guarding, Tenderness - Extremities Exam Extremities exam: normal inspection Additional comments: with kenny bandage and knee immobilizer in place - Neurological Exam Neurological exam: Alert, Oriented x3 - Psychiatric Exam Psychiatric exam: Normal Affect, Normal Mood - Skin Skin Exam: Intact, Normal Color Discharge Plan - Discharge Medications Prescriptions: amLODIPine [Norvasc] 10 mg PO DAILY #14 tab Apixaban [Eliquis] 5 mg PO DAILY #14 tab Aspirin [Aspirin Chewable] 81 mg PO DAILY #14 ctb Gabapentin 400 mg PO BID #28 capsule Levothyroxine [Synthroid] 50 mcg PO DAILY #14 tab Losartan [Cozaar] 100 mg PO DAILY #14 tab metFORMIN [glucOPHAGE] 500 mg PO BID #28 tab Metoprolol Succinate XL [Toprol XL] 25 mg PO DAILY #14 tab Rosuvastatin Calcium [Crestor] 5 mg PO DAILY #14 tab - Follow Up Plan Condition: STABLE Disposition: HOME/ ROUTINE Instructions: DASH Diet, Low Cholesterol, Saturated Fat, and Trans Fat Diet , Cellulitis (Skin Infection), Adult (DC), Apixaban, Amlodipine, Aspirin, Gabapent in, Levothyroxine, Losartan, Metformin, Metoprolol, Rosuvastatin Additional Instructions: 1. Patient is stable for discharge to home as per Dr. Royal 2. Patient will continue all of the medications as listed at home: Aspirin 81mg po daily Duonebs as needed Levothyroxine 50mcg po daily Cozaar 100mg po daily Metformin 500mg po bid Crestor 5mg po HS Norvasc 10mg po daily Eliquis 5mg po daily Gabapentin 400mg po bid Metoprolol 25mg po daily 3. Patient will need to followup with Dr. Jimenez within 1 week of discharge from hospital. Patient will need to follow up with primary corporate sales representative and Dr. Hedrick within 7 days of discharge from hospital. 4. Patient should return to hospital if symptoms worsen or recur. 5. Patient understands the plan as above and agrees Referrals: Jonatan Hedrick III, MD [Staff Provider] - Bertin Hastings MD [Staff Provider] - Luis Jimenez MD [Staff Provider] -
[2018-10-17 15:55] VITALS: BP 111/64; PULSE 74; TEMP 98.6
--- NOTE | 2018-10-17 21:50 | CARD ---
APPROVED REPORT Date of service: 10/17/2018 EXAM: Two-dimensional and M-mode echocardiogram with Doppler and color Doppler. Other Information Quality : GoodRhythm : INDICATION Cardiac Disease: CAD Palpitations Surgery/Intervention ICD/Pacemaker: RISK FACTORS Hypertension 2D DIMENSIONS IVSd1.2 (0.7-1.1cm)LVDd4.3 (3.9-5.9cm) LVOT Diameter2.0 (1.8-2.4cm)PWd1.0 (0.7-1.1cm) LA Arhfjf76 (18-58mL)LVDs3.2 (2.5-4.0cm) FS (%) 25.6 %LVEF (%)50.7 (>50%) LVEF (Miner's)51.80 % M-Mode DIMENSIONS RVDd2.44 (2.1-3.2cm)Left Atrium (MM)4.44 (2.5-4.0cm) IVSd0.72 (0.7-1.1cm)Aortic Root2.82 (2.2-3.7cm) LVDd5.82 (4.0-5.6cm)Aortic Cusp Exc.1.30 (1.5-2.0cm) PWd0.98 (0.7-1.1cm)FS (%) 36 % LVDs3.74 (2.0-3.8cm)LVEF (%)64 (>50%) Aortic Valve AoV Peak Eqboyjjj382.9cm/sAoV VTI82.8cmAO Peak GR.56mmHg LVOT Peak Hhiqzrgv73.6cm/sLVOT VTI23.32cmAO Mean GR.28mmHg HANSA (VMAX)0.77fv0PVK (VTI)0.86cm2 Mitral Valve MV E Lfdtgtnp30.4cm/sMV A Ejairnha352.5cm/sE/A ratio0.7 JZDL881.69 cm/s TDI Lateral E' Peak V15.84cm/sMedial E' Peak V3.96cm/sE/Lateral E'4.7 E/Medial E'18.8 Tricuspid Valve TR Peak Pqrabjcy348px/sTR Peak Gr.99hxTtKYIE74bjJy LEFT VENTRICLE The left ventricle is normal size. There is ormal left ventricular wall thickness. The left ventricular function is low normal. The left ventricular ejection fraction is 52%. The septum is hypokinetic. The basal-inferior wall is dyskinetic. Transmitral Doppler flow pattern is Grade I-abnormal relaxation pattern. No left ventricle thrombus noted on this study. There is no ventricular septal defect visualized. There is no left ventricular aneurysm. There is no mass noted in the left ventricle. RIGHT VENTRICLE The right ventricle is normal size. A ppm wire is noted. There is normal right ventricular wall thickness. The right ventricular systolic function is normal. ATRIA The left atrium size is normal. The right atrium size is normal. The interatrial septum is intact with no evidence for an atrial septal defect. There is aneurysmal motion of the septum. Color Doppelr does not demonstrate a shunt. AORTIC VALVE The aortic valve is trileaflet and calcified. LVOT diameter 1.0 cm. Visually, there is moderately reduced opening. Peak velocity through the valve is 3.5 m/sec, corresponding to a peak gradient of 49 mm Hg, and and estimated valve area by continuity equaiton of .9 cm2. The DVI is .28 No aortic regurgitation is present. There is no aortic valvular vegetation. MITRAL VALVE The mitral valve ivalve leaflets are thickened and demonstrate low normal opening. The sub-valvular apparatus is calcified. There is no evidence of mitral valve prolapse. There is mild mitral valve regurgitation noted. TRICUSPID VALVE The tricuspid valve is normal in structure and function. There is mild tricuspid valve regurgitation noted. There is no tricuspid valve prolapse or vegetation. There is no tricuspid valve stenosis. PULMONIC VALVE The pulmonary valve is normal in structure and function. There is no pulmonic valvular regurgitation. There is no pulmonic valvular stenosis. GREAT VESSELS The aortic root is normal in size. The ascending aorta is normal in size. The pulmonary artery is normal. The IVC is normal in size and collapses >50% with inspiration. PERICARDIAL EFFUSION The pericardium appears normal. There is no pleural effusion. <Conclusion> The left ventricular function is low normal. The septum is hypokinetic. The basal-inferior wall is dyskinetic. Transmitral Doppler flow pattern is Grade I-abnormal relaxation pattern. The aortic valve is trileaflet and calcified. LVOT diameter 1.0 cm. Visually, there is moderately reduced opening. Peak velocity through the valve is 3.5 m/sec, corresponding to a peak gradient of 49 mm Hg, and and estimated valve area by continuity equaiton of .9 cm2. The DVI is .28. By visual assessment, gradient and DVI, stenosis severity is moderate, not severe as valve area calculation suggests. Clincial correlation. The mitral valve ivalve leaflets are thickened and demonstrate low normal opening. The sub-valvular apparatus is calcified. There is mild mitral valve regurgitation noted.
== END 2018-10-17 16:00 | disposition home or self-care (01) | DRG 558 ==
LOC: C.ER 18:06 → C.9E 19:15 → C.3T 10-16 13:48 → C.9E 10-16 13:56 → C.3T 10-16 14:49
PROVIDERS: ADMIT Family Medicine; ATTEND Family Medicine
DX: M70.41 Prepatellar bursitis, right knee (principal); L03.115 Cellulitis of right lower limb; I42.9 Cardiomyopathy, unspecified; S80.01XA Contusion of right knee, initial encounter; W19.XXXA Unspecified fall, initial encounter; Z79.01 Long term (current) use of anticoagulants; E11.9 Type 2 diabetes mellitus without complications; E78.00 Pure hypercholesterolemia, unspecified; I10 Essential (primary) hypertension; I25.10 Atherosclerotic heart disease of native coronary artery without angina pectoris; I48.91 Unspecified atrial fibrillation; J44.9 Chronic obstructive pulmonary disease, unspecified; Z87.891 Personal history of nicotine dependence; Z95.0 Presence of cardiac pacemaker; Z95.1 Presence of aortocoronary bypass graft; F41.9 Anxiety disorder, unspecified; M19.90 Unspecified osteoarthritis, unspecified site; C50.919 Malignant neoplasm of unspecified site of unspecified female breast; E03.9 Hypothyroidism, unspecified; F43.21 Adjustment disorder with depressed mood; S69.92XA Unspecified injury of left wrist, hand and finger(s), initial encounter; Z86.711 Personal history of pulmonary embolism